=== PATIENT | female | born 1970 | race Caucasian/White ===

== ENCOUNTER → 2016-04-30 | Outpatient (CLI) | payer OTHER ==
[2016-04-30 13:14] LABS: Hemoglobin A1C 4.4 % (4.2-6.1)
== END | disposition home or self-care (01) ==
LOC: LABWHC1 10:37
PROVIDERS: ATTEND Family Medicine
DX: L89.90 Pressure ulcer of unspecified site, unspecified stage (principal)
CPT/HCPCS: 36415; 83036; 84134

== ENCOUNTER 2016-05-17 09:31 | Inpatient (IN) | payer OTHER ==
[2016-05-17 09:48] LABS: Glucose,Whole Blood 106 mg/dL (75-99)
--- NOTE | 2016-05-17 10:16 | ED ---
General Adult HPI - General Chief complaint: Urogenital Stated complaint: Sepsis Time Seen by Provider: 05/17/16 09:33 Source: patient, EMS Mode of arrival: EMS - History of Present Illness Initial comments: This patient is a 46-year-old woman transferred here from the [facility]. The patient when questioned is not sure exactly why she is here. The transfer paperwork lists that the patient has been having some hypotension and also had some slurred speech which seems to been going on for about the past night. The patient denies pain or dyspnea. She does request something to moisten her mouth as it feels quite dry. - Related Data Home Medications Medication Instructions Recorded Confirmed Baclofen [Lioresal] 10 mg PO DAILY PRN 11/17/13 05/17/16 Naproxen 500 mg PO BID 11/17/13 05/17/16 Pravastatin Sodium [Pravachol] 80 mg PO HS 11/17/13 05/17/16 Dimethyl Fumarate [Tecfidera] 240 mg PO BID 09/27/15 05/17/16 Gabapentin 600 mg PO TID@0500,1300,2100 03/04/16 05/17/16 Amino Acids/Protein Hydrolys 30 ml PO BID 04/23/16 05/17/16 [Pro-Stat Supplement] Bisacodyl [Dulcolax] 10 mg RECTAL HS PRN 04/23/16 05/17/16 Furosemide [Lasix] 20 mg PO DAILY@0700 04/23/16 05/17/16 HYDROcodone/APAP 5-325MG [[place] 1 tab PO Q6H PRN 04/23/16 05/17/16 5-325] Menthol [Biofreeze] 1 applic TOPICAL TID 04/23/16 05/17/16 Acetaminophen Tab [Tylenol] 650 mg PO Q6HR PRN 05/17/16 05/17/16 Amoxicillin 500 mg PO TID@0700,1300,1900 05/17/16 05/17/16 Multivitamins, Thera [Multivitamin] 1 tab PO HS 05/17/16 05/17/16 Omeprazole [PriLOSEC] 20 mg PO DAILY 05/17/16 05/17/16 Potassium Chloride 8 meq PO DAILY@0700 05/17/16 05/17/16 Allergies Allergy/AdvReac Type Severity Reaction Status Date / Time cinnamon Allergy Rash/Hives Verified 05/17/16 11:23 Review of Systems ROS Statement: Those systems with pertinent positive or pertinent negative responses have been documented in the HPI. ROS Other: All systems not noted in ROS Statement are negative. Constitutional: Denies: fever Respiratory: Denies: cough, dyspnea Cardiovascular: Denies: chest pain Gastrointestinal: Denies: abdominal pain, vomiting, diarrhea Musculoskeletal: Denies: back pain Neurological: Denies: headache Past Medical History Past Medical History: Blood Disorder, Hyperlipidemia, Musculoskeletal Disorder, Neurologic Disorder Additional Past Medical History / Comment(s): gait dysfunction History of Any Multi-Drug Resistant Organisms: None Reported Past Surgical History: No Surgical Hx Reported Additional Past Surgical History / Comment(s): TOOTH EXTRACTIONS lumbar puncture. Operating room debridemint Past Anesthesia/Blood Transfusion Reactions: No Reported Reaction Additional Past Anesthesia/Blood Transfusion Reaction / Comment(s): NEVER HAD ANY GENERAL AA ONLY LOCAL FOR DENTAL WORK. Past Psychological History: No Psychological Hx Reported Additional Psychological History / Comment(s): PT STATED SHE LIVES WITH HER BOYFRIEND, NO OTHER OUTSIDE SERVICES,USES WALKER WHEN UP HAS BALANCE ISSUES D/T MS AND HX OF FALLS. She does not drive. She gets rides thru her insurance company. Smoking Status: Never smoker Past Alcohol Use History: None Reported Past Drug Use History: None Reported - Past Family History Father History Unknown: Yes Additional Family Medical History / Comment(s): PTS DAD LIVED IN [place]- SHE 'S NOT SURE WHAT HE FROM Mother Family Medical History: Coronary Artery Disease (CAD), Diabetes Mellitus, Hyperlipidemia, Hypertension Additional Family Medical History / Comment(s): CARDIAC STENTS General Exam General appearance: alert, in no apparent distress Head exam: Present: atraumatic, normocephalic Eye exam: Present: normal appearance, PERRL, EOMI. Absent: nystagmus ENT exam: Present: mucous membranes dry Neck exam: Present: normal inspection Respiratory exam: Present: normal lung sounds bilaterally. Absent: respiratory distress, wheezes, rales, rhonchi, stridor Cardiovascular Exam: Present: tachycardia, normal heart sounds. Absent: systolic murmur, diastolic murmur, rubs, gallop GI/Abdominal exam: Present: soft. Absent: distended, tenderness, guarding, rebound, mass Extremities exam: Present: other (Patient has Tarik wraps to the bilateral lower extremities). Absent: pedal edema, calf tenderness Neurological exam: Present: alert Skin exam: Present: warm, dry, intact, normal color. Absent: rash Course Vital Signs 05/17/16 05/17/16 05/17/16 09:33 12:23 13:18 Temperature 98.5 F Pulse Rate 120 H 111 H 113 H Respiratory 22 18 14 Rate Blood Pressure 95/52 94/52 99/58 O2 Sat by Pulse 89 L 97 98 Oximetry EKG Findings - EKG Results: EKG: interpreted by ERMD, sinus rhythm, normal axis (Normal), normal ST/T ( Normal) EKG shows: tachycardia - Blocks, [place], Hypertrophy, ST Abn: Chamber hypertrophy or enlargement: only voltage criteria for left ventricular hypertrophy Medical Decision Making - Lab Data Result diagrams: 05/17/16 10:20 05/17/16 10:20 Lab Results 05/17/16 05/17/16 05/17/16 Range/Units 09:38 10:20 10:20 WBC 13.0 H (3.8-10.6) k/uL RBC 4.07 (3.80-5.40) m/uL Hgb 10.8 L (11.4-16.0) gm/dL Hct 34.3 (34.0-46.0) % MCV 84.3 (80.0-100.0) fL MCH 26.6 (25.0-35.0) pg MCHC 31.6 (31.0-37.0) g/dL RDW 14.5 (11.5-15.5) % Plt Count 341 (150-450) k/uL Neutrophils % 92 % Lymphocytes % 3 % Monocytes % 3 % Eosinophils % 1 % Basophils % 0 % Neutrophils # 12.0 H (1.3-7.7) k/uL Lymphocytes # 0.3 L (1.0-4.8) k/uL Monocytes # 0.4 (0-1.0) k/uL Eosinophils # 0.1 (0-0.7) k/uL Basophils # 0.0 (0-0.2) k/uL PT (9.0-12.0) sec INR (<1.1) APTT (22.0-30.0) sec Sodium (137-145) mmol/L Potassium (3.5-5.1) mmol/L Chloride (98-107) mmol/L Carbon Dioxide (22-30) mmol/L Anion Gap mmol/L BUN (7-17) mg/dL Creatinine (0.52-1.04) mg/dL Est GFR (MDRD) Af Amer (>60 ml/min/1.73 sqM) Est GFR (MDRD) Non-Af (>60 ml/min/1.73 sqM) Glucose (74-99) mg/dL POC Glucose (mg/dL) 106 H (75-99) mg/dL POC Glu Buccaro ID Jensen Reyes Plasma Lactic Acid Armando (0.7-2.0) mmol/L Calcium (8.4-10.2) mg/dL Total Bilirubin (0.2-1.3) mg/dL AST (14-36) U/L ALT (9-52) U/L Alkaline Phosphatase (38-126) U/L Total Creatine Kinase 182 H (30-135) U/L CK-MB (CK-2) 2.2 (0.0-2.4) ng/mL CK-MB (CK-2) Rel Index 1.2 Troponin I 0.026 (0.000-0.034) ng/mL Total Protein (6.3-8.2) g/dL Albumin (3.5-5.0) g/dL Cortisol ug/dL Urine Color Urine Appearance (Clear) Urine pH (5.0-8.0) Ur Specific [place] (1.001-1.035) Urine Protein (Negative) Urine Glucose (UA) (Negative) Urine Ketones (Negative) Urine Blood (Negative) Urine Nitrate (Negative) Urine Bilirubin (Negative) Urine Urobilinogen (<2.0) mg/dL Ur Leukocyte Esterase (Negative) Urine RBC (0-5) /hpf Urine WBC (0-5) /hpf Ur Squamous Epith Cells (0-4) /hpf Urine Bacteria (None) /hpf Urine Mucus (None) /hpf Urine Yeast (Budding) (None) /hpf 05/17/16 05/17/16 05/17/16 Range/Units 10:20 10:20 10:20 WBC (3.8-10.6) k/uL RBC (3.80-5.40) m/uL Hgb (11.4-16.0) gm/dL Hct (34.0-46.0) % MCV (80.0-100.0) fL MCH (25.0-35.0) pg MCHC (31.0-37.0) g/dL RDW (11.5-15.5) % Plt Count (150-450) k/uL Neutrophils % % Lymphocytes % % Monocytes % % Eosinophils % % Basophils % % Neutrophils # (1.3-7.7) k/uL Lymphocytes # (1.0-4.8) k/uL Monocytes # (0-1.0) k/uL Eosinophils # (0-0.7) k/uL Basophils # (0-0.2) k/uL PT 12.0 (9.0-12.0) sec INR 1.2 (<1.1) APTT 29.4 (22.0-30.0) sec Sodium 136 L (137-145) mmol/L Potassium 4.8 (3.5-5.1) mmol/L Chloride 98 (98-107) mmol/L Carbon Dioxide 21 L (22-30) mmol/L Anion Gap 17 mmol/L BUN 69 H (7-17) mg/dL Creatinine 3.20 H (0.52-1.04) mg/dL Est GFR (MDRD) Af Amer 19 (>60 ml/min/1.73 sqM) Est GFR (MDRD) Non-Af 16 (>60 ml/min/1.73 sqM) Glucose 94 (74-99) mg/dL POC Glucose (mg/dL) (75-99) mg/dL POC Glu Buccaro ID Plasma Lactic Acid Armando 1.9 (0.7-2.0) mmol/L Calcium 8.7 (8.4-10.2) mg/dL Total Bilirubin 1.0 (0.2-1.3) mg/dL AST 24 (14-36) U/L ALT 28 (9-52) U/L Alkaline Phosphatase 157 H (38-126) U/L Total Creatine Kinase (30-135) U/L CK-MB (CK-2) (0.0-2.4) ng/mL CK-MB (CK-2) Rel Index Troponin I (0.000-0.034) ng/mL Total Protein 5.8 L (6.3-8.2) g/dL Albumin 2.9 L (3.5-5.0) g/dL Cortisol 54 ug/dL Urine Color Urine Appearance (Clear) Urine pH (5.0-8.0) Ur Specific [place] (1.001-1.035) Urine Protein (Negative) Urine Glucose (UA) (Negative) Urine Ketones (Negative) Urine Blood (Negative) Urine Nitrate (Negative) Urine Bilirubin (Negative) Urine Urobilinogen (<2.0) mg/dL Ur Leukocyte Esterase (Negative) Urine RBC (0-5) /hpf Urine WBC (0-5) /hpf Ur Squamous Epith Cells (0-4) /hpf Urine Bacteria (None) /hpf Urine Mucus (None) /hpf Urine Yeast (Budding) (None) /hpf 05/17/16 Range/Units 12:00 WBC (3.8-10.6) k/uL RBC (3.80-5.40) m/uL Hgb (11.4-16.0) gm/dL Hct (34.0-46.0) % MCV (80.0-100.0) fL MCH (25.0-35.0) pg MCHC (31.0-37.0) g/dL RDW (11.5-15.5) % Plt Count (150-450) k/uL Neutrophils % % Lymphocytes % % Monocytes % % Eosinophils % % Basophils % % Neutrophils # (1.3-7.7) k/uL Lymphocytes # (1.0-4.8) k/uL Monocytes # (0-1.0) k/uL Eosinophils # (0-0.7) k/uL Basophils # (0-0.2) k/uL PT (9.0-12.0) sec INR (<1.1) APTT (22.0-30.0) sec Sodium (137-145) mmol/L Potassium (3.5-5.1) mmol/L Chloride (98-107) mmol/L Carbon Dioxide (22-30) mmol/L Anion Gap mmol/L BUN (7-17) mg/dL Creatinine (0.52-1.04) mg/dL Est GFR (MDRD) Af Amer (>60 ml/min/1.73 sqM) Est GFR (MDRD) Non-Af (>60 ml/min/1.73 sqM) Glucose (74-99) mg/dL POC Glucose (mg/dL) (75-99) mg/dL POC Glu Buccaro ID Plasma Lactic Acid Armando (0.7-2.0) mmol/L Calcium (8.4-10.2) mg/dL Total Bilirubin (0.2-1.3) mg/dL AST (14-36) U/L ALT (9-52) U/L Alkaline Phosphatase (38-126) U/L Total Creatine Kinase (30-135) U/L CK-MB (CK-2) (0.0-2.4) ng/mL CK-MB (CK-2) Rel Index Troponin I (0.000-0.034) ng/mL Total Protein (6.3-8.2) g/dL Albumin (3.5-5.0) g/dL Cortisol ug/dL Urine Color Light Yellow Urine Appearance Cloudy H (Clear) Urine pH 5.0 (5.0-8.0) Ur Specific [place] 1.004 (1.001-1.035) Urine Protein Negative (Negative) Urine Glucose (UA) Negative (Negative) Urine Ketones Negative (Negative) Urine Blood Moderate H (Negative) Urine Nitrate Negative (Negative) Urine Bilirubin Negative (Negative) Urine Urobilinogen <2.0 (<2.0) mg/dL Ur Leukocyte Esterase Large H (Negative) Urine RBC 108 H (0-5) /hpf Urine WBC 46 H (0-5) /hpf Ur Squamous Epith Cells 1 (0-4) /hpf Urine Bacteria Rare H (None) /hpf Urine Mucus Rare H (None) /hpf Urine Yeast (Budding) Few H (None) /hpf Disposition Clinical Impression: Pneumonia, Urinary tract infection, Acute renal failure, Hypotension, Decubitus ulcer Disposition: ADMITTED IP TO THIS HOSP Condition: Serious Referrals: Chace Mojica MD [Primary Care Provider] - 1-2 days
[2016-05-17] MEDS: SODIUM CHLORIDE 0.9% 500 ML IV SCH ×2 (10:30→11:00)
[2016-05-17 10:42] LABS: Basophils % (A) 0 %; CHCM 32.1; Eosinophils # (A) 0.1 k/uL (0-0.7); Eosinophils % (A) 1 %; HCT 34.3 % (34.0-46.0); HDW 2.49; HGB 10.8 gm/dL (11.4-16.0); Luc # (Auto) 0.24; Luc % (Auto) 2; Lymphocytes # (A) 0.3 k/uL (1.0-4.8); Lymphocytes % (A) 3 %; MCH 26.6 pg (25.0-35.0); MCHC 31.6 g/dL (31.0-37.0); MCV 84.3 fL (80.0-100.0); Mean Platelet Volume 7.9; Monocytes # (A) 0.4 k/uL (0-1.0); Monocytes % (A) 3 %; Neutrophils % (A) 92 %; RBC 4.07 m/uL (3.80-5.40); RDW 14.5 % (11.5-15.5); WBC (Perox) 13.93
[2016-05-17 10:44] LABS: INR 1.2 (<1.1); Partial Thromboplastin Time 29.4 sec (22.0-30.0)
[2016-05-17 10:45] LABS: Calcium 8.7 mg/dL (8.4-10.2); Total Protein 5.8 g/dL (6.3-8.2)
[2016-05-17 10:46] LABS: Potassium 4.8 mmol/L (3.5-5.1)
--- NOTE | 2016-05-17 10:52 | XR ---
EXAMINATION TYPE: XR chest 1V portable DATE OF EXAM: 05/17/2016 10:46 AM Comparison: 03/04/2016 Clinical History: 46-year-old female with Fever Findings: Low lung volumes. Heart appears borderline to mildly enlarged. Multifocal patchy airspace opacities. No significant pleural effusion seen on the frontal view. Some more nodular areas of opacity are also noted in the upper lobes. Impression: Multifocal airspace disease. Findings could represent pulmonary edema or multifocal pneumonia. Clinic al correlation recommended. Follow-up after treatment to ensure clearance as there are some more nodu lar areas of density as well.
[2016-05-17 11:10] LABS: Creatine Kinase MB 2.2 ng/mL (0.0-2.4); Troponin I 0.026 ng/mL (0.000-0.034)
[2016-05-17 12:16] LABS: Appearance,Urine Cloudy (Clear); Bacteria,Urine Rare /hpf; Bilirubin,Urine Negative (Negative); Glucose,Urine (UA) Negative (Negative); Ketones,Urine Negative (Negative); Leukocyte Esterase,Urine Large (Negative); Mucus,Urine Rare /hpf; Nitrite,Urine Negative (Negative); Particle Count 8540; Protein,Urine Negative (Negative); RBC,Urine 108 /hpf (0-5); Specific Gravity,Urine 1.004 (1.001-1.035); Squamous Epithelial Cell,Urine 1 /hpf (0-4); UA Billing (MACRO vs. MICRO) MICRO; Urobilinogen,Urine <2.0 mg/dL (<2.0); WBC,Urine 46 /hpf (0-5)
[2016-05-17] MEDS ORDERED: HYDROcodone/APAP 5-325MG 1 EACH TAB PO STA (12:18)
[2016-05-17] MEDS ORDERED: LEVOFLOXACIN 750MG-D5W PMX 750 MG in DEXTROSE/WATER 1 150ML.BAG IVPB STA (13:05)
[2016-05-17] MEDS ORDERED: PIPERACILLIN-TAZOBACTAM 3.375 GM in DEXTROSE/WATER 1 50ML.BAG IVPB STA ×2 (13:20→14:47)
[2016-05-17] MEDS ORDERED: PNEUMONIA PROTOCOL UTILIZED 1 EACH MISC PO PRN (14:22)
[2016-05-17] MEDS ORDERED: BACLOFEN 10 MG TAB PO PRN (14:48)
[2016-05-17] MEDS ORDERED: IV VANCOMYCIN PER PHARMACY 1 EACH MISC MISCELLANE PRN (14:48)
[2016-05-17] MEDS ORDERED: ACETAMINOPHEN TAB 325 MG TAB PO PRN (14:48)
[2016-05-17] MEDS ORDERED: BISACODYL 10 MG SUPP RECTAL PRN (14:48)
[2016-05-17] MEDS: SODIUM CHLORIDE 0.9% 1,000 ML IV SCH ×8 (14:50→23:33)
[2016-05-17] MEDS ORDERED: VANCOMYCIN 1,500 MG in SODIUM CHLORIDE 0.9% 250 ML IVPB ONE (16:00)
--- NOTE | 2016-05-17 16:23 | HP ---
DATE OF ADMISSION: 05/17/2016 Patient is a 46 -year-old female who is a resident of [facility]. Patient has history of multiple sclerosis for which patient has a Chaves catheter chronically which was replaced here. Came in with fevers. Appears to be high-grade in [facility], and patient was being treated for urinary tract infection with levofloxacin. Patient was on metronidazole for her osteomyelitis of the back and patient has a wound VAC to the back. Patient does have sacral decubitus ulcer. Patient denied any cough, runny nose. Patient denied any clear cut dysuria, nausea, vomiting and patient although the urine as mentioned above has a Chaves catheter chronically and patient's urine does look abnormal significantly, with large leukocyte esterase, WBC of 46. One squamous epithelial cell and budding yeast and patient was hypotensive. Patient's creatinine is 3.2, and severely dehydrated. Patient received 1 liter of IV normal saline. We will give her one more liter bolus. Patient will be started on 125 mL of IV fluids. Patient's anion gap is 17. May have lactic acidosis. The patient's lactic acid now is 1.9. Patient's baseline creatinine is around 0.6. REVIEW OF SYSTEMS: GENERAL: As described in HPI. HEENT: No recent visual problems or hearing problems. Denied any sore throat. CARDIOVASCULAR: No chest pain, orthopnea, PND, no palpitations, no syncope. PULMONARY: No shortness of breath, no cough, no hemoptysis. GASTROINTESTINAL: No diarrhea, no nausea, no vomiting, no abdominal pain. Normoactive bowel sounds. NEUROLOGICAL: No headaches, no weakness, no numbness. HEMATOLOGICAL: Denies any bleeding or petechiae. GENITOURINARY: Denies any burning micturition, frequency, or urgency. MUSCULOSKELETAL/RHEUMATOLOGICAL: Denies any joint pain, swelling, or any muscle pain. ENDOCRINE: Denies any polyuria or polydipsia. The rest of the 14 point review of systems is negative. Home medications include: 1. Baclofen. 2. Naproxen. 3. Pravastatin. 4. ( ). 5. Gabapentin. 6. ( ) supplementations. 7. Bisacodyl. 8. Lasix. 9. Hydrocodone acetaminophen. 10. Amoxicillin. 11. Multivitamin. 12. Omeprazole. 13. Potassium chloride. PAST MEDICAL HISTORY: Significant for hyperlipidemia, multiple sclerosis; chronic contractures from multiple sclerosis, gastroesophageal reflux disease. I am not sure why patient is on Lasix at home in the [place]. SOCIAL HISTORY: Denied any smoking, alcohol abuse or any drug abuse. FAMILY HISTORY: Father's medical history is unknown. Mother had coronary disease, diabetes mellitus, hyperlipidemia and hypertension. PHYSICAL EXAMINATION: VITAL SIGNS: Temperature 98.5, pulse of 113, respiratory rate of 14. Blood pressure is 99/58, saturating at 98% on 2 liters O2 by nasal cannula. GENERAL: Patient is a very pleasant female, alert and oriented x3 appears to be tired and does have malaise. Dermatologic: The patient does have intact wound VAC. I did not open the wound inside the back was not seen by me. Patient does have a Chaves catheter in place. HEENT: Pupils are round and equally reacting to light. EOMI. No scleral icterus. No conjunctival pallor. Normocephalic, atraumatic. No pharyngeal erythema. No thyromegaly. CARDIOVASCULAR: S1 and S2 present. Tachycardic. Sinus rhythm. PULMONARY: Chest is clear to auscultation, no wheezing or crackles. ABDOMEN: Soft, nontender, nondistended, normoactive bowel sounds. No palpable organomegaly. MUSCULOSKELETAL: No joint swelling or deformity. EXTREMITIES: No cyanosis, clubbing, or pedal edema. NEUROLOGICAL: No new focal neurological deficits. SKIN: No rashes. CARDIOVASCULAR: S1 and S2 present . Abdomen. LABORATORY DATA: CBC, CMP are abnormal for elevated WBC count of 13,000 and elevated BUN and creatinine of 69 and 3.2. Baseline creatinine is around 0.6, alkaline phosphatase is elevated to 157 and UA as mentioned above. Chest x-ray showed some diffuse multifocal infiltrate with the possibility of multifocal pneumonia. ASSESSMENT AND PLAN: 1. Severe sepsis, most probable source of infection is urinary tract infection which patient does have a chronic Chaves catheter, may be related to Chaves catheter infection. I cannot completely rule out pneumonia or infection from her wound but the possibility of these two is low. Patient will be started on broad-spectrum antibiotics for now with Zosyn and vancomycin. Infectious disease will be consulted. 2. Tachycardia due to severe sepsis. 3. Acute renal failure, possibly multifactorial, number one due to severe sepsis and possibility of acute tubular necrosis and also prerenal azotemia. Prerenal azotemia that may be contributing to her severe renal dysfunction. Patient will be started on 125 mL of normal saline. We will recheck electrolytes tomorrow again and kidney function tomorrow again. 4. Gastroesophageal reflux disease. 5. Multiple sclerosis with chronic debility for which will continue with the present medications. 6. Normocytic anemia, anemia of chronic disease. 7. Mild protein calorie malnutrition. Patient's primary care physician is Dr. Chace Mojica.
[2016-05-17 16:40] LABS: Creatine Kinase MB 2.4 ng/mL (0.0-2.4); Troponin I 0.022 ng/mL (0.000-0.034)
[2016-05-17 17:33] LABS: Prealbumin 4 mg/dL (18-36)
[2016-05-17] MEDS: AMPICILLIN-SULBACTAM 3 GM in SODIUM CHLORIDE 0.9% 100 ML IVPB SCH ×2 (17:55→23:33)
[2016-05-17] MEDS: MENTHOL-CAMPHOR LOTION 222 APPLIC/222 ML BOTTLE TOPICAL SCH ×2 (17:56→20:23)
[2016-05-17 18:28] LABS: C Reactive Protein >852.3 mg/L (<10.0)
[2016-05-17] MEDS: GABAPENTIN 300 MG CAP PO SCH (20:23)
[2016-05-17] MEDS: FAMOTIDINE 20 MG TAB PO SCH (20:23)
[2016-05-17] MEDS: PRAVASTATIN SODIUM 80 MG TAB PO SCH (20:23)
[2016-05-17] MEDS ORDERED: FAMOTIDINE 20 MG TAB PO SCH (21:00)
[2016-05-17] MEDS ORDERED: NON-FORMULARY DRUG (Dimethyl Fumarate [Tecfidera] 240 MG) PO SCH (21:00)
[2016-05-17 23:24] LABS: Creatine Kinase MB 1.8 ng/mL (0.0-2.4); Troponin I 0.021 ng/mL (0.000-0.034)
[2016-05-18 05:53] LABS: CH 26.7; CHCM 30.7; HCT 27.9 % (34.0-46.0); HDW 2.43; Hypochromasia Slight; MCH 27.5 pg (25.0-35.0); MCHC 31.5 g/dL (31.0-37.0); MCV 87.2 fL (80.0-100.0); Mean Platelet Volume 8.7; RDW 14.8 % (11.5-15.5); WBC 8.1 k/uL (3.8-10.6)
[2016-05-18 05:54] LABS: HGB 8.8 gm/dL (11.4-16.0)
[2016-05-18] MEDS: GABAPENTIN 300 MG CAP PO SCH (06:00)
[2016-05-18] MEDS: SODIUM CHLORIDE 0.9% 1,000 ML IV SCH ×3 (06:07→12:29)
[2016-05-18 06:12] LABS: Calcium 7.5 mg/dL (8.4-10.2); Potassium 4.9 mmol/L (3.5-5.1); Total Bilirubin 1.2 mg/dL (0.2-1.3); Total Protein 4.9 g/dL (6.3-8.2)
[2016-05-18] MEDS: MENTHOL-CAMPHOR LOTION 222 APPLIC/222 ML BOTTLE TOPICAL SCH ×3 (07:53→21:23)
[2016-05-18] MEDS: FAMOTIDINE 20 MG TAB PO SCH ×2 (07:53→21:20)
[2016-05-18] MEDS: AMPICILLIN-SULBACTAM 3 GM in SODIUM CHLORIDE 0.9% 100 ML IVPB SCH ×2 (07:56→21:22)
[2016-05-18] MEDS: HYDROcodone/APAP 5-325MG 1 EACH TAB PO PRN (08:00)
--- NOTE | 2016-05-18 09:19 | P.NPCON ---
History of Present Illness - Reason for Consult acute renal failure - History of Present Illness Reason for consultation: Acute kidney injury History of present illness: Patient is a 46-year-old female seen in consultation for acute kidney injury. Her baseline creatinine from February 2016 is 0.6. It was elevated at 3.2 at the time of admission yesterday and is up to 3.3 today. Patient has history of multiple sclerosis and is currently undergoing rehab at [facility]. She presented with fever although she's been afebrile this admission. Denies any vomiting or diarrhea but her appetite has been poor the last few days. She has history of osteomyelitis in the back for which she is maintained on antibiotics as an outpatient. It appears she was on amoxicillin according to her home medications. I also see naproxen listed in her home medications. She is a chronic Chaves catheter in place which she states was changed recently. She is unsure of any family history of renal disease. Currently resting in bed. Her blood pressure was low at the time of admission in the systolic 90s for which she did receive fluid resuscitation. Currently maintained on normal saline running at 125 mL an hour. Blood pressure remains marginal. Vital signs are stable. General: The patient appeared well nourished and normally developed. HEENT: Head exam is unremarkable. Neck is without jugular venous distension. LUNGS: Lungs are clear to auscultation and percussion. Breath sounds decreased. HEART: Rate and Rhythm are regular. First and second heart sounds normal. No murmurs, rubs or gallops. ABDOMEN: Abdominal exam reveals normal bowel sounds. Non-tender and non- distended. No evidence of peritonitis. EXTREMITITES: No clubbing, cyanosis, or edema. Past Medical History Past Medical History: Blood Disorder, Hyperlipidemia, Musculoskeletal Disorder, Neurologic Disorder Additional Past Medical History / Comment(s): gait dysfunction, MS History of Any Multi-Drug Resistant Organisms: None Reported Past Surgical History: No Surgical Hx Reported Additional Past Surgical History / Comment(s): TOOTH EXTRACTIONS lumbar puncture. Operating room debridemint Past Anesthesia/Blood Transfusion Reactions: No Reported Reaction Additional Past Anesthesia/Blood Transfusion Reaction / Comment(s): NEVER HAD ANY GENERAL AA ONLY LOCAL FOR DENTAL WORK. Past Psychological History: No Psychological Hx Reported Additional Psychological History / Comment(s): . Smoking Status: Never smoker Past Alcohol Use History: None Reported Past Drug Use History: None Reported - Past Family History Father History Unknown: Yes Additional Family Medical History / Comment(s): PTS DAD LIVED IN [place]- SHE 'S NOT SURE WHAT HE FROM Mother Family Medical History: Coronary Artery Disease (CAD), Diabetes Mellitus, Hyperlipidemia, Hypertension Additional Family Medical History / Comment(s): CARDIAC STENTS Medications and Allergies Home Medications Medication Instructions Recorded Confirmed Type Baclofen [Lioresal] 10 mg PO DAILY PRN 11/17/13 05/17/16 History Naproxen 500 mg PO BID 11/17/13 05/17/16 History Pravastatin Sodium [Pravachol] 80 mg PO HS 11/17/13 05/17/16 History Dimethyl Fumarate [Tecfidera] 240 mg PO BID 09/27/15 05/17/16 History Gabapentin 600 mg PO TID@0500,1300,2100 03/04/16 05/17/16 History Amino Acids/Protein Hydrolys 30 ml PO BID 04/23/16 05/17/16 History [Pro-Stat Supplement] Bisacodyl [Dulcolax] 10 mg RECTAL HS PRN 04/23/16 05/17/16 History Furosemide [Lasix] 20 mg PO DAILY@0700 04/23/16 05/17/16 History HYDROcodone/APAP 5-325MG [[place] 1 tab PO Q6H PRN 04/23/16 05/17/16 History 5-325] Menthol [Biofreeze] 1 applic TOPICAL TID 04/23/16 05/17/16 History Acetaminophen Tab [Tylenol] 650 mg PO Q6HR PRN 05/17/16 05/17/16 History Amoxicillin 500 mg PO TID@0700,1300,1900 05/17/16 05/17/16 History Multivitamins, Thera [Multivitamin] 1 tab PO HS 05/17/16 05/17/16 History Omeprazole [PriLOSEC] 20 mg PO DAILY 05/17/16 05/17/16 History Potassium Chloride 8 meq PO DAILY@0700 05/17/16 05/17/16 History Allergies Allergy/AdvReac Type Severity Reaction Status Date / Time cinnamon Allergy Rash/Hives Verified 05/17/16 11:23 Physical Exam Vitals: Vital Signs Temp Pulse Pulse Resp BP BP Pulse Ox 05/18/16 08:01 97 F L 103 H 18 97/58 94 L 05/18/16 04:00 97.2 F L 108 H 17 103/51 92 L 05/18/16 00:00 97.3 F L 111 H 17 95/51 95 05/17/16 20:00 96.9 F L 119 H 18 96/57 95 05/17/16 16:29 97.7 F 115 H 17 112/51 95 05/17/16 16:20 97.1 F L 116 H 18 112/51 95 05/17/16 16:05 98.1 F 112 H 18 95/54 96 05/17/16 14:44 97.7 F 118 H 18 114/69 95 Intake and Output 05/17/16 05/18/16 05/18/16 22:59 06:59 14:59 Intake Total 3400 1000 0 Output Total 50 Balance 3400 950 0 Intake: IV 1000 1000 Sodium Chloride 0.9% 1, 1000 1000 000 ml @ 125 mls/hr IV . Q8H [facility] Rx#:[id number] Amount of Fluid Infused ( 2000 ml) Intake, IV Titration 400 Amount Ampicillin-Sulbactam 3 gm 100 In Sodium Chloride 0.9% 100 ml @ 100 mls/hr IVPB Q8HR [facility] Rx#:[id number] Piperacillin-Tazobactam 3 50 .375 gm In Dextrose/Water 1 50ml.bag @ 12.5 mls/hr IVPB ONCE STA Rx#: [id number] Vancomycin 1,500 mg In 250 Sodium Chloride 0.9% 250 ml @ 125 mls/hr IVPB ONCE ONE Rx#:[id number] Oral 0 Output: Urine 50 Other: Voiding Method Indwelling Catheter Indwelling Catheter Indwelling Catheter Weight 93.44 kg 98 kg Results - Lab Results Most recent lab results Calcium 7.5 mg/dL (8.4-10.2) L 05/18/16 05:21 05/18/16 05:21 05/18/16 05:21 Assessment and Plan Plan: Assessment: #1. Acute kidney injury secondary to septic ATN. Rule out ALLERGIC interstitial nephritis. Creatinine up at 3.3 today. Baseline creatinine 0.6. #2. Severe sepsis secondary to pneumonia. #3. Osteomyelitis of the back with a wound VAC in place. #4. Urinary tract infection being treated with levofloxacin as an outpatient. #5. Hyponatremia. Euvolemic in nature. #6. Anion gap metabolic acidosis secondary to acute kidney injury. #7. Anemia. Rule out iron deficiency. Plan: Maintain IV hydration with normal saline to be run at 125 mL an hour. Encourage oral intake. I will put her on 1200 mL free water restriction. Avoid nephrotoxic agents and hypotensive episodes. NSAIDs and Lasix held at this time. Check iron studies. Check urine eosinophils. Check renal ultrasound. Add oral sodium bicarbonate 650 mg 3 times daily. Follow-up cultures. Repeat electrolytes in the morning. Thank you for the consultation. I will continue to follow the patient with you during her hospital stay.
--- NOTE | 2016-05-18 10:19 | P.CONS ---
History of Present Illness - Reason for Consult Consult date: 05/18/16 Stage IV decubitus ulcer, sepsis, UTI - History of Present Illness This is a 46-year-old female well known to ID service as [facility] currently under the care of Dr. Villalpando and was last seen there on May 07. Patient has history of extended hospitalization in February which time she was discharged on March 20 to [facility]. During that hospitalization, he was seen in consultation by Dr. De Oliveira for her multiple sclerosis. Dr. Rivero also saw her from infectious disease regarding stage IV sacral decubitus ulcer with osteomyelitis. On March 17, she underwent wide debridement of the sacral wound with excision of necrotic coccygeal bone by Dr. Brothers. She was discharged on Rocephin 2 g every 24 hours for 42 days as well as Flagyl 500 mg 3 times daily for 42 days. Patient did complete her course of antibiotics and had a follow-up appointment with Dr. Yodit chacon last week. The patient states that she developed a fever with body aches and yesterday had a cough. She states she has not been eating but drinking some water. According to the [facility] staff on May 14 she had a urinalysis completed which showed WBCs of 10-20 and RBCs 40-60. Blood was 3+. The culture came back 50-100,000 colonies of Enterococcus faecalis (VRE ) and strep viridans and she was placed on oral ampicillin on May 16. It appears that she was on Levaquin prior to this. EMS notes state that she had no urine output in her Chaves for 12 hours with a blood pressure of 78/58, pulse ox was 93 on room air and heart rate was 120. Patient was brought into [facility]. White count was 13 now at 8.1. BUN 69 creatinine 3.2. With normal creatinine of 0.6. Urinalysis was cloudy, blood moderate, leukoesterase large, RBCs 108, WBC 46 and bacteria rare. Urine culture is in progress. Blood cultures status received. Sputum culture is uncollected. Chest x-ray shows multifocal airspace disease. Represents pulmonary edema or multifocal pneumonia.. Pre-albumin 4, cortisone level LUIGI, CRP 852.3 and last one done at the [facility] was 38.48 with a sed rate of 63. Patient does have a chronic Chaves catheter which she states was exchanged last week. For wound care she has a wound VAC in place with local wound care done on Tuesdays and Saturdays. Patient received 1 dose of Zosyn, one dose of vancomycin and 1 dose of Levaquin. She is currently on Unasyn. Patient is followed by Dr. Aldridge for acute kidney injury second to septic ATN and metabolic acidosis with hyponatremia. Review of Systems All systems: negative Constitutional: Reports anorexia, Reports fatigue, Reports fever, Reports poor appetite, Reports sweats, Reports weakness, Denies chills Eyes: denies blurred vision, denies pain Ears, nose, mouth and throat: Denies headache, Denies sore throat Cardiovascular: Denies chest pain, Denies shortness of breath Respiratory: Reports cough, Denies cough with sputum, Denies dyspnea, Denies excessive sputum, Denies hemoptysis Gastrointestinal: Denies abdominal pain, Denies diarrhea, Denies nausea, Denies vomiting Genitourinary: Denies dysuria, Denies hematuria Musculoskeletal: Denies myalgias Integumentary: Reports wounds, Denies pruritus, Denies rash Neurological: Denies numbness, Denies weakness Psychiatric: Denies anxiety, Denies depression Endocrine: Denies fatigue, Denies weight change Past Medical History Past Medical History: Blood Disorder, Hyperlipidemia, Musculoskeletal Disorder, Neurologic Disorder Additional Past Medical History / Comment(s): gait dysfunction, MS, stage IV sacral osteomyelitis History of Any Multi-Drug Resistant Organisms: None Reported Past Surgical History: No Surgical Hx Reported Additional Past Surgical History / Comment(s): TOOTH EXTRACTIONS lumbar puncture. Operating room debridemint of stage IV decubitus ulcer sacrum Past Anesthesia/Blood Transfusion Reactions: No Reported Reaction Additional Past Anesthesia/Blood Transfusion Reaction / Comm: NEVER HAD ANY GENERAL AA ONLY LOCAL FOR DENTAL WORK. Past Psychological History: No Psychological Hx Reported Additional Psychological History / Comment(s): . Smoking Status: Never smoker Past Alcohol Use History: None Reported Additional Past Alcohol Use History / Comment(s): Patient is a lifelong nonsmoker. She denies any alcohol abuse. Prior to being at [facility], she was living with her boyfriend. Past Drug Use History: None Reported - Past Family History Father History Unknown: Yes Additional Family Medical History / Comment(s): PTS DAD LIVED IN [place]- SHE 'S NOT SURE WHAT HE FROM Mother Family Medical History: Coronary Artery Disease (CAD), Diabetes Mellitus, Hyperlipidemia, Hypertension Additional Family Medical History / Comment(s): CARDIAC STENTS Medications and Allergies Home Medications Medication Instructions Recorded Confirmed Type Baclofen [Lioresal] 10 mg PO DAILY PRN 11/17/13 05/17/16 History Naproxen 500 mg PO BID 11/17/13 05/17/16 History Pravastatin Sodium [Pravachol] 80 mg PO HS 11/17/13 05/17/16 History Dimethyl Fumarate [Tecfidera] 240 mg PO BID 09/27/15 05/17/16 History Gabapentin 600 mg PO TID@0500,1300,2100 03/04/16 05/17/16 History Amino Acids/Protein Hydrolys 30 ml PO BID 04/23/16 05/17/16 History [Pro-Stat Supplement] Bisacodyl [Dulcolax] 10 mg RECTAL HS PRN 04/23/16 05/17/16 History Furosemide [Lasix] 20 mg PO DAILY@0700 04/23/16 05/17/16 History HYDROcodone/APAP 5-325MG [[place] 1 tab PO Q6H PRN 04/23/16 05/17/16 History 5-325] Menthol [Biofreeze] 1 applic TOPICAL TID 04/23/16 05/17/16 History Acetaminophen Tab [Tylenol] 650 mg PO Q6HR PRN 05/17/16 05/17/16 History Amoxicillin 500 mg PO TID@0700,1300,1900 05/17/16 05/17/16 History Multivitamins, Thera [Multivitamin] 1 tab PO HS 05/17/16 05/17/16 History Omeprazole [PriLOSEC] 20 mg PO DAILY 05/17/16 05/17/16 History Potassium Chloride 8 meq PO DAILY@0700 05/17/16 05/17/16 History Allergies Allergy/AdvReac Type Severity Reaction Status Date / Time cinnamon Allergy Rash/Hives Verified 05/17/16 11:23 Physical Exam Vitals: Vital Signs Temp Pulse Pulse Resp BP BP Pulse Ox 05/18/16 08:01 97 F L 103 H 18 97/58 94 L 05/18/16 04:00 97.2 F L 108 H 17 103/51 92 L 05/18/16 00:00 97.3 F L 111 H 17 95/51 95 05/17/16 20:00 96.9 F L 119 H 18 96/57 95 05/17/16 16:29 97.7 F 115 H 17 112/51 95 05/17/16 16:20 97.1 F L 116 H 18 112/51 95 05/17/16 16:05 98.1 F 112 H 18 95/54 96 05/17/16 14:44 97.7 F 118 H 18 114/69 95 Intake and Output 05/17/16 05/18/16 05/18/16 22:59 06:59 14:59 Intake Total 3400 1000 0 Output Total 50 Balance 3400 950 0 Intake: IV 1000 1000 Sodium Chloride 0.9% 1, 1000 1000 000 ml @ 125 mls/hr IV . Q8H [facility] Rx#:[id number] Amount of Fluid Infused ( 2000 ml) Intake, IV Titration 400 Amount Ampicillin-Sulbactam 3 gm 100 In Sodium Chloride 0.9% 100 ml @ 100 mls/hr IVPB Q8HR [facility] Rx#:[id number] Piperacillin-Tazobactam 3 50 .375 gm In Dextrose/Water 1 50ml.bag @ 12.5 mls/hr IVPB ONCE STA Rx#: [id number] Vancomycin 1,500 mg In 250 Sodium Chloride 0.9% 250 ml @ 125 mls/hr IVPB ONCE ONE Rx#:[id number] Oral 0 Output: Urine 50 Other: Voiding Method Indwelling Catheter Indwelling Catheter Indwelling Catheter Weight 93.44 kg 98 kg Gen: This is a 46-year-old female. She is sitting up in bed and appears to be in no acute distress. HEENT: Head is atraumatic, normocephalic. Pupils equal, round. Sclerae is anicteric. Conjunctiva pink. Mucous membranes of the mouth are very dry. NECK: Supple. No JVD. No lymphadenopathy. No thyromegaly. LUNGS: Clear to auscultation. No wheezes or rhonchi. No intercostal retractions. HEART: Regular rate and rhythm. No murmur. ABDOMEN: Soft. Bowel sounds are present. No masses. No tenderness. Chaves catheter in place. EXTREMITIES: Trace pedal edema. No calf tenderness. Dorsalis pedis is weak bilaterally. Extreme weakness to the bilateral lower extremities NEUROLOGICAL: Patient is awake, alert and oriented x3. Cranial nerves 2 through 12 are grossly intact. Results Results: Laboratory Results WBC 8.1 k/uL (3.8-10.6) 05/18/16 05:21 RBC 3.20 m/uL (3.80-5.40) L 05/18/16 05:21 Hgb 8.8 gm/dL (11.4-16.0) L D 05/18/16 05:21 Hct 27.9 % (34.0-46.0) L 05/18/16 05:21 MCV 87.2 fL (80.0-100.0) 05/18/16 05:21 MCH 27.5 pg (25.0-35.0) 05/18/16 05:21 MCHC 31.5 g/dL (31.0-37.0) 05/18/16 05:21 RDW 14.8 % (11.5-15.5) 05/18/16 05:21 Plt Count 188 k/uL (150-450) 05/18/16 05:21 Neutrophils % 92 % 05/17/16 10:20 Lymphocytes % 3 % 05/17/16 10:20 Monocytes % 3 % 05/17/16 10:20 Eosinophils % 1 % 05/17/16 10:20 Basophils % 0 % 05/17/16 10:20 Neutrophils # 12.0 k/uL (1.3-7.7) H 05/17/16 10:20 Lymphocytes # 0.3 k/uL (1.0-4.8) L 05/17/16 10:20 Monocytes # 0.4 k/uL (0-1.0) 05/17/16 10:20 Eosinophils # 0.1 k/uL (0-0.7) 05/17/16 10:20 Basophils # 0.0 k/uL (0-0.2) 05/17/16 10:20 Hypochromasia Slight 05/18/16 05:21 ESR 102 mm/hr (0-20) H 05/17/16 10:20 PT 12.0 sec (9.0-12.0) 05/17/16 10:20 INR 1.2 (<1.1) 05/17/16 10:20 APTT 29.4 sec (22.0-30.0) 05/17/16 10:20 Sodium 131 mmol/L (137-145) L 05/18/16 05:21 Potassium 4.9 mmol/L (3.5-5.1) 05/18/16 05:21 Chloride 100 mmol/L (98-107) 05/18/16 05:21 Carbon Dioxide 16 mmol/L (22-30) L 05/18/16 05:21 Anion Gap 15 mmol/L 05/18/16 05:21 BUN 77 mg/dL (7-17) H 05/18/16 05:21 Creatinine 3.30 mg/dL (0.52-1.04) H 05/18/16 05:21 Est GFR (MDRD) Af Amer 18 (>60 ml/min/1.73 sqM) 05/18/16 05:21 Est GFR (MDRD) Non-Af 15 (>60 ml/min/1.73 sqM) 05/18/16 05:21 Glucose 79 mg/dL (74-99) 05/18/16 05:21 POC Glucose (mg/dL) 106 mg/dL (75-99) H 05/17/16 09:38 POC Glu [employer] ID Jensen Reyes 05/17/16 09:38 Plasma Lactic Acid Armando 0.7 mmol/L (0.7-2.0) 05/18/16 05:21 Calcium 7.5 mg/dL (8.4-10.2) L 05/18/16 05:21 Total Bilirubin 1.2 mg/dL (0.2-1.3) 05/18/16 05:21 AST 30 U/L (14-36) 05/18/16 05:21 ALT 34 U/L (9-52) 05/18/16 05:21 Alkaline Phosphatase 149 U/L (38-126) H 05/18/16 05:21 Total Creatine Kinase 183 U/L (30-135) H 05/17/16 22:00 CK-MB (CK-2) 1.8 ng/mL (0.0-2.4) 05/17/16 22:00 CK-MB (CK-2) Rel Index 1.0 05/17/16 22:00 Troponin I 0.021 ng/mL (0.000-0.034) 05/17/16 22:00 C-Reactive Protein >852.3 mg/L (<10.0) H 05/17/16 10:20 Total Protein 4.9 g/dL (6.3-8.2) L 05/18/16 05:21 Albumin 2.2 g/dL (3.5-5.0) L 05/18/16 05:21 Prealbumin 4 mg/dL (18-36) L 05/17/16 10:20 Cortisol 54 ug/dL 05/17/16 10:20 Urine Color Light Yellow 05/17/16 12:00 Urine Appearance Cloudy (Clear) H 05/17/16 12:00 Urine pH 5.0 (5.0-8.0) 05/17/16 12:00 Ur Specific [place] 1.004 (1.001-1.035) 05/17/16 12:00 Urine Protein Negative (Negative) 05/17/16 12:00 Urine Glucose (UA) Negative (Negative) 05/17/16 12:00 Urine Ketones Negative (Negative) 05/17/16 12:00 Urine Blood Moderate (Negative) H 05/17/16 12:00 Urine Nitrate Negative (Negative) 05/17/16 12:00 Urine Bilirubin Negative (Negative) 05/17/16 12:00 Urine Urobilinogen <2.0 mg/dL (<2.0) 05/17/16 12:00 Ur Leukocyte Esterase Large (Negative) H 05/17/16 12:00 Urine RBC 108 /hpf (0-5) H 05/17/16 12:00 Urine WBC 46 /hpf (0-5) H 05/17/16 12:00 Ur Squamous Epith Cells 1 /hpf (0-4) 05/17/16 12:00 Urine Bacteria Rare /hpf (None) H 05/17/16 12:00 Urine Mucus Rare /hpf (None) H 05/17/16 12:00 Urine Yeast (Budding) Few /hpf (None) H 05/17/16 12:00 CBC & Chem 7: 05/18/16 05:21 05/19/16 05:41 Labs: Abnormal Lab Results - Last 24 Hours (Table) 05/17/16 05/17/16 05/18/16 Range/Units 15:52 22:00 05:21 RBC 3.20 L (3.80-5.40) m/uL Hgb 8.8 L D (11.4-16.0) gm/dL Hct 27.9 L (34.0-46.0) % Sodium (137-145) mmol/L Carbon Dioxide (22-30) mmol/L BUN (7-17) mg/dL Creatinine (0.52-1.04) mg/dL Calcium (8.4-10.2) mg/dL Alkaline Phosphatase (38-126) U/L Total Creatine Kinase 212 H 183 H (30-135) U/L Total Protein (6.3-8.2) g/dL Albumin (3.5-5.0) g/dL 05/18/16 Range/Units 05:21 RBC (3.80-5.40) m/uL Hgb (11.4-16.0) gm/dL Hct (34.0-46.0) % Sodium 131 L (137-145) mmol/L Carbon Dioxide 16 L (22-30) mmol/L BUN 77 H (7-17) mg/dL Creatinine 3.30 H (0.52-1.04) mg/dL Calcium 7.5 L (8.4-10.2) mg/dL Alkaline Phosphatase 149 H (38-126) U/L Total Creatine Kinase (30-135) U/L Total Protein 4.9 L (6.3-8.2) g/dL Albumin 2.2 L (3.5-5.0) g/dL Assessment and Plan Plan: This is a 46-year-old female with a significant past history of multiple sclerosis with functional paraplegia, sepsis due to pneumonia, catheter associated urinary tract infection, stage IV decubitus ulcer with recent treatment for acute osteomyelitis of the sacrum. Patient also presented with acute kidney injury secondary to ATN. Patient is currently on Unasyn and vancomycin. Urine culture and blood culture are in process. Sputum cultures uncollected. Wound culture will be requested. Continue supportive care. Further recommendations as patient progresses. The above dictated assessment and findings were discussed with Dr. hSi. The impression and plan of care have been directed as dictated. Lazara Brito nurse practitioner acting as scribe for Dr. Shi. Time with Patient: Greater than 30
[2016-05-18] MEDS: SODIUM BICARBONATE TAB 650 MG TAB PO SCH ×3 (10:21→21:23)
[2016-05-18] MEDS ORDERED: IV VANCOMYCIN PER PHARMACY 1 EACH MISC MISCELLANE PRN (11:43)
[2016-05-18] MEDS: GABAPENTIN 100 MG CAP PO SCH ×2 (12:29→21:22)
[2016-05-18 14:38] LABS: % Iron Saturation 10.3 % (20-50)
--- NOTE | 2016-05-18 17:20 | PN ---
Patient is a 46-year-old with multiple sclerosis. She was admitted for severe sepsis. Patient is mostly bedbound. Patient has a Chaves catheter in place. Patient most probably has urinary tract infection. I cannot completely rule out sepsis secondary to bilateral diffuse pneumonia. Patient was evaluated by Infectious Disease and they started her on ampicillin sulbactam. Patient is looking better compared to yesterday. Patient remains tachycardic, but tachycardia improved a little bit. Kidney function remains fairly at the same level as yesterday. Sodium is 131 compared to 130 and Nephrology is following the patient. Patient is not on any nephrotoxic agents. Patient continues to be on 125 mL of normal saline at this time. Patient's bicarbonate has gone down a little bit. REVIEW OF SYSTEMS: CARDIOVASCULAR: No chest pain, no orthopnea, no PND, no palpitations. PULMONARY: Denied any shortness of breath. No cough or hemoptysis. GASTROINTESTINAL: No diarrhea, nausea or vomiting. No abdominal pain. Normoactive bowel sounds. NEUROLOGIC: No headaches, no weakness, no numbness. Patient is feeling much better today. Urine output is good today. Medications were reviewed. PHYSICAL EXAMINATION: VITAL SIGNS: Temperature 97.0 pulse of 103, respiratory rate of 18, blood pressure 97/58. Saturating at 94% on room air. GENERAL: Patient is a very pleasant female, alert and oriented x3. Lying on the bed because of her chronic weakness. No new weakness was appreciated. Chaves catheter in place. HEENT: Pupils are round and equally reacting to light. EOMI. No scleral icterus. No conjunctival pallor. Normocephalic, atraumatic. No pharyngeal erythema. No thyromegaly. CARDIOVASCULAR: S1, S2 present. Patient is tachycardic. PULMONARY: Chest is clear to auscultation, no wheezing or crackles. ABDOMEN: Soft, nontender, nondistended, normoactive bowel sounds. No palpable organomegaly. MUSCULOSKELETAL: No joint swelling or deformity. EXTREMITIES: No cyanosis, clubbing, or pedal edema. NEUROLOGICAL: Gross neurological examination did not reveal any focal deficits. SKIN: No rashes. LABORATORY DATA: CBC, CMP are significant for improved leukocytosis. Hemoglobin came down to 8.8 due to hemodilutory effect. Sodium came down to 131, bicarbonate of 21. Part of lower bicarbonate is probably because of uremia plus increased chloride. Anion gap is 15; came down, actually. Patient did not have any significant lactic acidosis yesterday. ASSESSMENT AND PLAN: 1. Severe sepsis, most probably secondary to urinary tract infection. Diffuse bilateral pneumonia cannot be excluded. Patient is on Unasyn at this point of time. Patient has Gram-positive bacteria in the blood, and the results will be conveyed to Infectious Disease. Further management of the bacteremia as per ID. Repeat blood cultures today and tomorrow will be obtained. 2. Tachycardia which is improving, secondary to severe sepsis. 3. Acute renal failure, multifactorial, most probably acute tubular necrosis along with prerenal azotemia. Continue with IV fluids at present rate. Expected to improve. Patient's urine output is not that bad now. 4. Gastroesophageal reflux disease. 5. Multiple sclerosis. 6. Normocytic anemia, probably anemia of chronic disease, mild protein-calorie malnutrition. 7. Multiple sclerosis, not in acute exacerbation at this point of time.
--- NOTE | 2016-05-18 18:28 | P.CON ---
Consult Note - . Consult date: 05/18/16 Assessment/Plan:: This is a 46-year-old female well known to ID service as she [facility] currently under the care of Dr. Villalpando and was last seen there on May 07. Patient has history of extended hospitalization in February which time she was discharged on March 20 to [facility]. During that hospitalization, he was seen in consultation by Dr. De Oliveira for her multiple sclerosis. Dr. Rivero also saw her from infectious disease regarding stage IV sacral decubitus ulcer with osteomyelitis. On March 17, she underwent wide debridement of the sacral wound with excision of necrotic coccygeal bone by Dr. Brothers. She was discharged on Rocephin 2 g every 24 hours for 42 days as well as Flagyl 500 mg 3 times daily for 42 days. Patient did complete her course of antibiotics and had a follow-up appointment with Dr. Yodit chacon last week. The patient states that she developed a fever with body aches and yesterday had a cough. She states she has not been eating but drinking some water. According to the alf staff on May 14 she had a urinalysis completed which showed WBCs of 10-20 and RBCs 40-60. Blood was 3+. The culture came back 50-100,000 colonies of Enterococcus faecalis (VRE ) and strep viridans and she was placed on oral ampicillin on May 16. It appears that she was on Levaquin prior to this. EMS notes state that she had no urine output in her Chaves for 12 hours with a blood pressure of 78/58, pulse ox was 93 on room air and heart rate was 120. Patient was brought into [facility]. White count was 13 now at 8.1. BUN 69 creatinine 3.2. With normal creatinine of 0.6. Urinalysis was cloudy, blood moderate, leukoesterase large, RBCs 108, WBC 46 and bacteria rare. Urine culture is in progress. Blood cultures status received. Sputum culture is uncollected. Chest x-ray shows multifocal airspace disease. Represents pulmonary edema or multifocal pneumonia.. Pre-albumin 4, cortisone level 54, CRP 852.3 and last one done at the alf was 38.48 with a sed rate of 63. Patient does have a chronic Chaves catheter which she states was exchanged last week. For wound care she has had a wound VAC in place with local wound care done on Tuesdays and Saturdays. Patient received 1 dose of Zosyn, one dose of vancomycin and 1 dose of Levaquin. She is currently on Unasyn. Patient is followed by Dr. Aldridge for acute kidney injury second to septic ATN and metabolic acidosis with hyponatremia. Please see the consult note is dictated by nurse practitioner Mrs. Lazara Brito Exam reveals evidence of the extensive pressor ulceration to the coccyx. Please see the nursing photography for the measurements in pictorial evidence. Local wound care with the Aquacel silver rope packed at this point in time Ensure that her protein status is supplemented Antibiotic therapy above with ampicillin sulbactam and vancomycin pending the blood cultures that are positive. She is on a mattress overlay and is being turned on schedule. Likely will need further courses of intravenous antibiotic therapy, the 2016 x-ray of the sacrum and coccyx does show the ongoing osteomyelitis to that site. I agree with the evaluation, assessment and plan as dictated by nurse practitioner Mrs. Lazara Brito.
[2016-05-18] MEDS: PRAVASTATIN SODIUM 80 MG TAB PO SCH (21:22)
[2016-05-19] MEDS: GABAPENTIN 100 MG CAP PO SCH ×3 (05:00→19:39)
[2016-05-19] MEDS: SODIUM CHLORIDE 0.9% 1,000 ML IV SCH ×2 (05:00→19:34)
[2016-05-19 06:43] LABS: Calcium 7.6 mg/dL (8.4-10.2); Potassium 5.1 mmol/L (3.5-5.1); Total Bilirubin 1.3 mg/dL (0.2-1.3); Total Protein 4.8 g/dL (6.3-8.2)
[2016-05-19] MEDS ORDERED: VANCOMYCIN 1,500 MG in SODIUM CHLORIDE 0.9% 250 ML IVPB ONE (09:00)
[2016-05-19] MEDS: AMPICILLIN-SULBACTAM 3 GM in SODIUM CHLORIDE 0.9% 100 ML IVPB SCH (09:45)
--- NOTE | 2016-05-19 09:49 | P.PN ---
Subjective Patient is seen in follow-up for acute kidney injury. Her baseline creatinine is near 0.6 and renal function continues to worsen with creatinine elevated at 3.95 today. She is oliguric with urine output of only 50 mL overnight. She is also acidotic with bicarb level of 13. Patient presented with hypotension and was subsequently diagnosed with pneumonia. She also has sacral osteomyelitis for which she is currently maintained on antibiotics. Her blood cultures are now also positive for MRSA. Patient denies any chest pain or shortness of breath. Her appetite is fair. Denies any vomiting or diarrhea. Vital signs are stable. General: The patient appeared well nourished and normally developed. HEENT: Head exam is unremarkable. Neck is without jugular venous distension. LUNGS: Lungs are clear to auscultation and percussion. Breath sounds decreased. HEART: Rate and Rhythm are regular. First and second heart sounds normal. No murmurs, rubs or gallops. ABDOMEN: Abdominal exam reveals normal bowel sounds. Non-tender and non- distended. No evidence of peritonitis. EXTREMITITES: No clubbing, cyanosis, or edema. Objective - Vital Signs Vital signs: Vital Signs Temp 97.1 F L 05/19/16 04:00 Pulse 108 H 05/19/16 04:00 Resp 18 05/19/16 04:00 BP 103/54 05/19/16 04:00 Pulse Ox 93 L 05/19/16 04:00 Intake & Output 05/18/16 05/19/16 05/19/16 18:59 06:59 18:59 Intake Total 420 1979 240 Output Total 50 Balance 370 1979 240 Weight 98 kg 98 kg Intake: IV 220 1280 Sodium Chloride 0.9% 1, 220 1280 000 ml @ 80 mls/hr IV . [id number] [facility] Rx#:[id number] Intake, IV Titration 100 Amount Ampicillin-Sulbactam 3 gm 100 In Sodium Chloride 0.9% 100 ml @ 100 mls/hr IVPB Q12HR [facility] Rx#:[id number] Oral 200 600 240 Output: Urine 50 Other: Voiding Method Indwelling Catheter Indwelling Catheter - Labs CBC & Chem 7: 05/18/16 05:21 05/19/16 05:41 Labs: Abnormal Lab Results - Last 24 Hours (Table) 05/18/16 05/19/16 Range/Units 05:21 05:41 Sodium 132 L (137-145) mmol/L Carbon Dioxide 13 L (22-30) mmol/L BUN 88 H* (7-17) mg/dL Creatinine 3.95 H (0.52-1.04) mg/dL Glucose 70 L (74-99) mg/dL Calcium 7.6 L (8.4-10.2) mg/dL Iron 16 L (37-170) ug/dL TIBC 156 L (265-497) ug/dL % Saturation 10.3 L (20-50) % Ferritin 652 H (6-137) ng/mL Alkaline Phosphatase 299 H (38-126) U/L Total Protein 4.8 L (6.3-8.2) g/dL Albumin 2.2 L (3.5-5.0) g/dL Microbiology - Last 24 Hours (Table) 05/18/16 15:07 Gram Stain - Preliminary Buttock Wound Culture - Preliminary 05/18/16 15:07 Anaerobic Culture - Preliminary Buttock Assessment and Plan Plan: Assessment: #1. Acute kidney injury secondary to septic ATN. . urine eosinophils negative Creatinine up at 3.95 today. Baseline creatinine 0.6. #2. Severe sepsis secondary to pneumonia. #3. Osteomyelitis of the sacrum with a wound VAC in place. #4. Urinary tract infection being treated with levofloxacin as an outpatient. urine culture now positive for Ronda albicans. #5. Hyponatremia. Euvolemic in nature. improved. #6. Anion gap metabolic acidosis secondary to acute kidney injury. #7. Anemia. Iron deficiency present. Plan: Maintain IV hydration with normal saline to be run at 80 mL an hour. Encourage oral intake. Maintain 1200 mL free water restriction. Avoid nephrotoxic agents and hypotensive episodes. NSAIDs and Lasix held at this time. Hold off on IV iron in view of bacteremia. Check renal ultrasound. Continue oral sodium bicarbonate 650 mg 3 times daily. Follow-up cultures. infectious disease following. I discussed with her the need for renal replacement therapy for better metabolic control as well as oliguria. She is in agreement to proceed. Will consult vascular surgery for Bhavin catheter placement and schedule for first treatment of hemodialysis today.
[2016-05-19] MEDS: SODIUM BICARBONATE TAB 650 MG TAB PO SCH ×3 (09:52→19:40)
[2016-05-19] MEDS: FAMOTIDINE 20 MG TAB PO SCH ×2 (09:52→19:39)
[2016-05-19] MEDS: MENTHOL-CAMPHOR LOTION 222 APPLIC/222 ML BOTTLE TOPICAL SCH ×2 (09:52→17:31)
[2016-05-19] MEDS: HYDROcodone/APAP 5-325MG 1 EACH TAB PO PRN ×2 (09:56→19:40)
[2016-05-19] MEDS: DAPTOmycin 500 MG in SODIUM CHLORIDE 0.9% 50 ML IV SCH (12:19)
[2016-05-19] MEDS ORDERED: fentaNYL (PF) 50 MCG/ML 2 ML AMP IV ONE (12:50)
[2016-05-19] MEDS ORDERED: LIDOCAINE 2% INJ 20 MG/ML SQ ONE (12:53)
--- NOTE | 2016-05-19 15:49 | US ---
EXAMINATION TYPE: US kidneys/renal and bladder DATE OF EXAM: 05/19/2016 3:23 PM COMPARISON: NONE CLINICAL HISTORY: Renal insufficiency EXAM MEASUREMENTS: Right Kidney: 14.1 x 5.7 x 5.1 cm cm Left Kidney: 14.8 x 6.5 x 5.2 cm cm FINDINGS: There is no evidence for hydronephrosis at this point in time. No nephrolithiasis is seen. No oliverio s are identified. The urinary bladder is nondiagnostic and limited secondary to Chaves catheter place ment. IMPRESSION: No acute process.
[2016-05-19] MEDS: PIPERACILLIN-TAZOBACTAM 3.375 GM in DEXTROSE/WATER 1 50ML.BAG IVPB SCH (19:40)
[2016-05-19] MEDS: PRAVASTATIN SODIUM 80 MG TAB PO SCH (19:40)
--- NOTE | 2016-05-19 23:25 | PN ---
DATE OF SERVICE: 05/19/2016 REASON FOR FOLLOWUP: 1. MRSA bacteremia. 2. Sacral osteomyelitis. 3. Catheter-associated UTI. INTERVAL HISTORY: The patient is a 46-year-old female well known to my service from recent admission to [facility] when the patient was treated for a non-healing sacral wound with a component of sacral osteomyelitis. At that time the cultures grew Klebsiella pneumoniae alpha hemolytic strep and anaerobic Gram-negative, and the patient was treated with a 6-week course of ceftriaxone 2 grams daily along with Flagyl. Unfortunately the patient did not follow up as she was supposed to and presented to the office a week after the antibiotics were discontinued, and the PICC line was still in. PICC line was discontinued in the office. Otherwise, continued local wound care. The patient now has been brought to the ER at [facility] on 05/17/2016 with the chief complaints of mental status changes. Apparently the patient was having some hypertension and some slurred speech while in [facility]. No high-grade fever has been recorded during this admission. Patient did have blood cultures obtained which are now showing possible MRSA. Cultures were obtained from her sacral wound in addition to the UA. Patient has been treated with vancomycin and Unasyn. However, she was noted to have worsening of her kidney function with a decrease in her output. Nephrology has seen the patient and is recommending a dialysis temporarily at this point. At the time of my evaluation this morning the patient is afebrile. The patient denies having any headache. The patient denies having any chest pain or shortness of breath. She has some mild cough though, but not bringing up any sputum. No abdominal pain. She did have a Chaves catheter not sure when the last time the Chaves was changed. REVIEW OF SYSTEMS: Positive for weakness and cough. The rest of the positives were mentioned in the HPI. Rest of the systems negative. Past medical and surgical history reviewed. No change in medication. On examination, blood pressure is 104/54 with a pulse of 111. Temperature is 98.2. She is 96% on room air. General description is a middle-aged female lying in bed in no distress. HEENT EXAMINATION: Pallor. No scleral icterus. Oral mucous membrane dry. NECK: Trachea is central. No thyromegaly. LUNGS: Unlabored breathing. Clear to auscultation. No wheeze or crackles. HEART: S1, S2. Regular rate and rhythm. ABDOMEN: Soft. No tenderness. No guarding or rigidity. EXTREMITIES: No edema of the feet. EXAMINATION OF THE SACRAL WOUND: The bone could be felt. She did have some component of slough tissue and also swelling of the wound . GENITOURINARY: The patient did have a Chaves catheter with significantly concentrated urine. LABS: BUN of 88 with a creatinine of 3.95. Hemoglobin is 8.8, white count 8.1. UA was positive. Vancomycin random was 15.6. Blood culture now with presumptive MRSA. DIAGNOSTIC IMPRESSION AND PLAN: Patient admitted to the hospital with hypotension, weakness in a patient now with evidence of acute renal failure in addition to the MRSA bacteremia with the same organism being grown from the sacral wound, likely the source of her bacteremia in a patient who did have history of sacral osteomyelitis. Now this infection indicative of a secondary infection, as she did not grow the same pathogen as the last time. Also with a component of catheter-associated urinary tract infection. PLAN: 1. Will go ahead and discontinue the vancomycin, as risk of nephrotoxicity remains high with her kidney function. I will discontinue the Unasyn as well. 2. Which change her Chaves catheter and obtain a urine culture from the new Chaves. 3. We did try to apply wound V.A.C.; however, that was unsuccessful because of the wound with slough tissue. Hence the wound V.A.C. has been discontinued and we will apply Santyl to the wound. We will also discuss with the primary team to see if Dr. Brothers can be consulted for further surgical debridement of this wound. 4. Daptomycin 6 mg/kg q.48 hours and Zosyn provide antibiotic coverage while waiting for the culture to finalize. 5. Blood cultures x1 will be repeated to make sure there is no evidence of any persistent bacteremia. Thank you for this consultation. Will continue to follow this patient along with you. ELIZABETH
[2016-05-19] MEDS ORDERED: HEPARIN SODIUM,PORCINE 5,000 UNIT/ML 1 ML VIAL ONE (23:50)
[2016-05-20] MEDS: COLLAGENASE 250 UNIT/GM OINTMENT 30 GM TUBE TOPICAL SCH ×2 (01:00→21:42)
[2016-05-20] MEDS: MENTHOL-CAMPHOR LOTION 222 APPLIC/222 ML BOTTLE TOPICAL SCH ×4 (01:02→21:43)
[2016-05-20] MEDS: GABAPENTIN 100 MG CAP PO SCH ×3 (05:23→21:42)
[2016-05-20] MEDS: SODIUM CHLORIDE 0.9% 1,000 ML IV SCH ×2 (05:24→15:24)
[2016-05-20 07:19] LABS: Calcium 7.7 mg/dL (8.4-10.2); Potassium 4.4 mmol/L (3.5-5.1); Total Bilirubin 1.2 mg/dL (0.2-1.3); Total Protein 4.8 g/dL (6.3-8.2)
--- NOTE | 2016-05-20 08:53 | IR ---
EXAMINATION TYPE: IR cvc insert >=5 years DATE OF EXAM: 05/19/2016 1:34 PM COMPARISON: NONE HISTORY: Catheter placement IMPRESSION: Fluoroscopy was applied to the referring clinician. See dictated report from vascular lopez rgrodrigo.
[2016-05-20] MEDS: SODIUM BICARBONATE TAB 650 MG TAB PO SCH ×3 (08:59→21:42)
[2016-05-20] MEDS: FAMOTIDINE 20 MG TAB PO SCH ×2 (09:00→21:42)
[2016-05-20] MEDS: PIPERACILLIN-TAZOBACTAM 3.375 GM in DEXTROSE/WATER 1 50ML.BAG IVPB SCH ×2 (09:00→21:42)
[2016-05-20] MEDS: HYDROcodone/APAP 5-325MG 1 EACH TAB PO PRN ×3 (09:00→22:03)
[2016-05-20 09:25] LABS: Appearance,Urine Turbid (Clear); Bacteria,Urine Occasional /hpf; Bilirubin,Urine Negative (Negative); Glucose,Urine (UA) Negative (Negative); Ketones,Urine Trace (Negative); Leukocyte Esterase,Urine Large (Negative); Nitrite,Urine Negative (Negative); PH, Urine 5.5 (5.0-8.0); Particle Count 44017; Protein,Urine 2+ (Negative); RBC,Urine 124 /hpf (0-5); Specific Gravity,Urine 1.015 (1.001-1.035); Squamous Epithelial Cell,Urine 4 /hpf (0-4); UA Billing (MACRO vs. MICRO) MICRO; Urobilinogen,Urine <2.0 mg/dL (<2.0); WBC,Urine >182 /hpf (0-5)
[2016-05-20] MEDS ORDERED: HEPARIN SODIUM,PORCINE 5,000 UNIT/ML 1 ML VIAL ONE (12:00)
--- NOTE | 2016-05-20 16:23 | P.PN ---
Subjective Date of service 05/19/2016. Progress note being dictated for Dr. Waters. Interval history: This a 46-year-old female admitted with sepsis, MRSA bacteremia, UTI, pneumonia, acute renal failure secondary to septic ATN and multiple other medical issues in a patient with MS. Blood cultures now with presumptive MRSA. IV Antibiotics adjusted as per Infectious disease ,discussing potential wound VAC. Minimal concentrated urine output. Renal ultrasound reporting no hydronephrosis, no nephrolithiasis, no masses. Bicarb 13. BUN 88, Creatinine 3.95. Patient awaiting dialysis catheter placement and initiation of dialysis today. Chaves catheter changed. Denies chest pain, palpitations or increasing shortness of breath. Objective - Vital Signs Vital signs: Vital Signs Temp 98.1 F 05/19/16 08:00 Pulse 111 H 05/19/16 12:00 Resp 18 05/19/16 12:00 BP 106/68 05/19/16 12:00 Pulse Ox 92 L 05/19/16 12:00 Intake & Output 05/18/16 05/19/16 05/19/16 18:59 06:59 18:59 Intake Total 420 1979 1155 Output Total 50 Balance 370 1979 1155 Weight 98 kg 98 kg Intake: IV 220 1280 Sodium Chloride 0.9% 1, 220 1280 000 ml @ 80 mls/hr IV . [id number] YANIRA Rx#:[id number] Intake, IV Titration 100 915 Amount Ampicillin-Sulbactam 3 gm 100 100 In Sodium Chloride 0.9% 100 ml @ 100 mls/hr IVPB Q12HR YANIRA Rx#:[id number] DAPTOmycin 500 mg In 50 Sodium Chloride 0.9% 50 ml @ 100 mls/hr IV Q48H YANIRA Rx#:[id number] Sodium Chloride 0.9% 1, 640 000 ml @ 80 mls/hr IV . [id number] YANIRA Rx#:[id number] Vancomycin 1,500 mg In 125 Sodium Chloride 0.9% 250 ml @ 125 mls/hr IVPB ONCE ONE Rx#:[id number] Oral 200 600 240 Output: Urine 50 Other: Voiding Method Indwelling Catheter Indwelling Catheter Indwelling Catheter - Exam PHYSICAL EXAM: VITAL SIGNS: As above GENERAL: [Sitting up in bed, tired appearing] HEENT: [Pupils equal conjunctiva normal.] NECK: [Supple, no JVD] RESPIRATORY EFFORT:[Mildly increased] LUNGS: [Diminished, no wheezing, crackles or rhonchi] CARDIOVASCULAR[regular S1 and S2, no murmurs rubs or gallops, no edema] GI: [Abdomen soft, nontender, positive bowel sounds.] PSYCH: [Alert and oriented -3, mood and affect normal.] SKIN: Sacral dressing clean dry and intact NEURO: [No focal deficits] Microbiology 05/18/16 15:07 Buttock Gram Stain - Preliminary 05/18/16 15:07 Buttock Wound Culture - Preliminary Methicillin resist S. aureus 05/18/16 11:33 Blood Blood Culture Gram Stain - Preliminary 05/18/16 11:33 Blood Blood Culture - Preliminary Presumptive MRSA 05/19/16 05:41 Blood Blood Culture - Preliminary No Growth after 24 hours 05/17/16 10:20 Blood Blood Culture Gram Stain - Final 05/17/16 10:20 Blood Blood Culture - Final Methicillin resist S. aureus 05/18/16 11:33 Blood Blood Culture - Preliminary 05/17/16 12:00 Urine,Catheterized Urine Culture - Final Ronda albicans 05/18/16 15:07 Buttock Anaerobic Culture - Preliminary 05/17/16 10:20 Blood Blood Culture - Preliminary - Labs CBC & Chem 7: 05/18/16 05:21 05/20/16 05:59 Labs: Abnormal Lab Results - Last 24 Hours (Table) 05/19/16 Range/Units 05:41 Sodium 132 L (137-145) mmol/L Carbon Dioxide 13 L (22-30) mmol/L BUN 88 H* (7-17) mg/dL Creatinine 3.95 H (0.52-1.04) mg/dL Glucose 70 L (74-99) mg/dL Calcium 7.6 L (8.4-10.2) mg/dL Alkaline Phosphatase 299 H (38-126) U/L Total Protein 4.8 L (6.3-8.2) g/dL Albumin 2.2 L (3.5-5.0) g/dL Microbiology - Last 24 Hours (Table) 05/18/16 11:33 Blood Culture - Preliminary Blood No Growth after 24 hours 05/18/16 15:07 Gram Stain - Preliminary Buttock Wound Culture - Preliminary Presumptive MRSA 05/18/16 15:07 Anaerobic Culture - Preliminary Buttock Assessment and Plan Plan: 1. [Severe sepsis,secondary to MRSA bacteremia, diffuse bilateral pneumonia, acute UTI with Ronda albicans]. 2. [Acute renal failure multi factorial, including septic ATN, prerenal azotemia ]. 3. [Sacral osteomyelitis]. 4. [Hyponatremia, euvolemic]. 5. [Iron deficient anemia, of chronic disease]. 6. [Metabolic acidosis secondary to acute renal failure]. 7. Tachycardia secondary to severe sepsis 8. Gastroesophageal reflux disease 9. Multiple sclerosis, no acute exacerbation at this time 10. Mild protein calorie malnutrition Plan continue on current medication regime , sodium bicarb , protein supplements , monitoring and symptomatic treatment. Urine culture from new Chaves and repeat blood cultures ordered. Continue following cultures closely with Antibiotics as per ID . Maintain IV fluid hydration, free water restriction. Diaylsis catheter placement and initiation of hemodialysis pending. Prognosis guarded given multiple complex medical issues. Further recommendations to follow. The impression and plan of care has been dictated as directed. : I performed a H&P examination of this patient and discussed the same with the dictator. I agree with the dictator's note. Any additional findings/opinions/ etc. will be noted.
--- NOTE | 2016-05-20 16:32 | P.PN ---
Subjective Date of service 05/20/2016. Progress note being dictated for Dr. Waters. Interval history: This a 46-year-old female admitted with sepsis, MRSA bacteremia, UTI, pneumonia, acute renal failure secondary to septic ATN and multiple other medical issues in a patient with MS. [place] and and daptomycin as per Infectious disease. Temporary dialysis catheter placed yesterday, unable to tolerate fluids being pulled off, became hypotensive. Receiving dialysis today just ultrafiltration only. Bicarb 17. BUN 86, Creatinine 3.72. Denies chest pain, palpitations or increasing shortness of breath. Objective - Vital Signs Vital signs: Vital Signs Temp 97.6 F 05/20/16 15:34 Pulse 100 05/20/16 15:34 Resp 20 05/20/16 15:34 BP 97/44 05/20/16 12:00 Pulse Ox 98 05/20/16 15:34 Intake & Output 05/19/16 05/20/16 05/20/16 18:59 06:59 18:59 Intake Total 1155 1330 Output Total 0 20 Balance 1155 1330 -20 Weight 101 kg Intake: IV 1280 Sodium Chloride 0.9% 1, 1280 000 ml @ 80 mls/hr IV . [id number] YANIRA Rx#:[id number] Intake, IV Titration 915 50 Amount Ampicillin-Sulbactam 3 gm 100 In Sodium Chloride 0.9% 100 ml @ 100 mls/hr IVPB Q12HR YANIRA Rx#:[id number] DAPTOmycin 500 mg In 50 Sodium Chloride 0.9% 50 ml @ 100 mls/hr IV Q48H YANIRA Rx#:[id number] Piperacillin-Tazobactam 3 50 .375 gm In Dextrose/Water 1 50ml.bag @ 12.5 mls/hr IVPB Q12HR YANIRA Rx#: [id number] Sodium Chloride 0.9% 1, 640 000 ml @ 80 mls/hr IV . [id number] YANIRA Rx#:[id number] Vancomycin 1,500 mg In 125 Sodium Chloride 0.9% 250 ml @ 125 mls/hr IVPB ONCE ONE Rx#:[id number] Oral 240 Output: Urine 0 20 Uretheral (Chaves) 20 Other: Voiding Method Indwelling Catheter Indwelling Catheter Indwelling Catheter # Voids 0 - Exam PHYSICAL EXAM: VITAL SIGNS: As above GENERAL: [Sitting up in bed, tired appearing] HEENT: [Pupils equal conjunctiva normal.] NECK: [Supple, no JVD] RESPIRATORY EFFORT:[Mildly increased] LUNGS: [Diminished, no wheezing, crackles or rhonchi] CARDIOVASCULAR[regular S1 and S2, no murmurs rubs or gallops, no edema] GI: [Abdomen soft, nontender, positive bowel sounds.] PSYCH: [Alert and oriented -3, mood and affect normal.] SKIN: Sacral dressing clean dry and intact NEURO: [No focal deficits] Microbiology 05/18/16 15:07 Buttock Gram Stain - Preliminary 05/18/16 15:07 Buttock Wound Culture - Preliminary Methicillin resist S. aureus 05/18/16 11:33 Blood Blood Culture Gram Stain - Preliminary 05/18/16 11:33 Blood Blood Culture - Preliminary Presumptive MRSA 05/19/16 05:41 Blood Blood Culture - Preliminary No Growth after 24 hours 05/17/16 10:20 Blood Blood Culture Gram Stain - Final 05/17/16 10:20 Blood Blood Culture - Final Methicillin resist S. aureus 05/18/16 11:33 Blood Blood Culture - Preliminary 05/17/16 12:00 Urine,Catheterized Urine Culture - Final Ronad albicans 05/18/16 15:07 Buttock Anaerobic Culture - Preliminary 05/17/16 10:20 Blood Blood Culture - Preliminary - Labs CBC & Chem 7: 05/18/16 05:21 05/20/16 05:59 Labs: Abnormal Lab Results - Last 24 Hours (Table) 05/20/16 05/20/16 Range/Units 05:59 09:00 Sodium 135 L (137-145) mmol/L Carbon Dioxide 17 L (22-30) mmol/L BUN 86 H* (7-17) mg/dL Creatinine 3.72 H (0.52-1.04) mg/dL Calcium 7.7 L (8.4-10.2) mg/dL Alkaline Phosphatase 392 H (38-126) U/L Total Protein 4.8 L (6.3-8.2) g/dL Albumin 2.1 L (3.5-5.0) g/dL Urine Appearance Turbid H (Clear) Urine Protein 2+ H (Negative) Urine Ketones Trace H (Negative) Urine Blood Large H (Negative) Ur Leukocyte Esterase Large H (Negative) Urine RBC 124 H (0-5) /hpf Urine WBC >182 H (0-5) /hpf Urine WBC Clumps Many H (None) /hpf Urine Bacteria Occasional H (None) /hpf Urine Yeast (Budding) Moderate H (None) /hpf Microbiology - Last 24 Hours (Table) 05/18/16 15:07 Gram Stain - Preliminary Buttock Wound Culture - Preliminary Methicillin resist S. aureus 05/18/16 11:33 Blood Culture Gram Stain - Preliminary Blood Blood Culture - Preliminary Presumptive MRSA 05/19/16 05:41 Blood Culture - Preliminary Blood No Growth after 24 hours 05/18/16 11:33 Blood Culture - Preliminary Blood Assessment and Plan Plan: 1. [Severe sepsis,secondary to MRSA bacteremia, diffuse bilateral pneumonia, acute UTI with Ronda albicans]. Repeat cultures pending. 2. [Acute renal failure multi factorial, including septic ATN, prerenal azotemia ]. Temporary dialysis catheter placed with initiation of hemodialysis. 3. [Sacral osteomyelitis]. 4. [Hyponatremia, euvolemic]. 5. [Iron deficient anemia, of chronic disease]. 6. [Metabolic acidosis secondary to acute renal failure]. 7. Tachycardia secondary to severe sepsis, improving 8. Gastroesophageal reflux disease 9. Multiple sclerosis, no acute exacerbation at this time 10. Mild protein calorie malnutrition Plan continue on current medication regime , sodium bicarb , protein supplements , monitoring and symptomatic treatment. Follow cultures closely with Antibiotics as per ID. Maintain IV fluid hydration, free water restriction. Hemodialysis/ultrafiltration as per nephrology. Follow-up chest x-ray ordered. Prognosis guarded given multiple complex medical issues. Further recommendations to follow. The impression and plan of care has been dictated as directed. : I performed a H&P examination of this patient and discussed the same with the dictator. I agree with the dictator's note. Any additional findings/opinions/ etc. will be noted.
--- NOTE | 2016-05-20 19:35 | PN ---
Patient is for followup for acute kidney injury. Started on dialysis yesterday. Patient is scheduled for her second treatment today. She has an indwelling Chaves catheter with no significant urine output. 24-hour urine reported to be 50 mL. On examination, patient is comfortable. Blood pressure 93/56, heart rate 95 per minute. She is afebrile. EXAMINATION OF THE HEART: S1 and S2. EXAMINATION OF THE LUNGS: Bilateral breath sounds are heard. Decreased breath sounds in bases. ABDOMEN: Soft, nontender. Examination of lower extremities shows no significant edema. [employer] exam shows patient is moving all 4 extremities. Labs show sodium 135, potassium 4.4, serum creatinine 3.72. Hemoglobin 8.8 g/dL. UA shows trace ketones, large blood, WBCs more than 182. ASSESSMENT: 1. Acute kidney injury, acute tubular necrosis, currently oliguric, status post hemodialysis yesterday. Patient is being dialyzed again today. She continues to have no urine output. We will arrange for her next treatment to be day after tomorrow, which would be May 3. 2. Methicillin-resistant Staphylococcus aureus bacteremia. Source is the wound and sacral osteomyelitis. 3. Diffuse bilateral pneumonia. 4. Ronda urinary tract infection. PLAN: Hemodialysis today. Next treatment will be on Wednesday. Continue to avoid nephrotoxic agents and watch for possible recovery of kidney function. I will discontinue the sodium bicarb in the next few days, as she is now on dialysis.
--- NOTE | 2016-05-20 20:59 | XR ---
EXAMINATION TYPE: XR chest 1V portable DATE OF EXAM: 05/20/2016 7:02 PM COMPARISON: May 17, 2016 HISTORY: Fever TECHNIQUE: Single frontal view of the chest is obtained. FINDINGS: The previously seen pattern of multifocal ill-defined added opacities throughout the lung p arenchyma is similar. If anything, slightly improved overall lung inflation when compared to the prio r study. The mediastinum is midline. No pneumothorax. No other abnormal gas collection is evident. IMPRESSION: MILD INTERVAL IMPROVEMENT IN THE OVERALL LUNG INFLATION PATTERN, BUT PROMINENT BILATERAL ABNORMALITIES PERSIST.
[2016-05-20] MEDS: PRAVASTATIN SODIUM 80 MG TAB PO SCH (21:42)
[2016-05-21] MEDS: GABAPENTIN 100 MG CAP PO SCH ×3 (06:22→21:37)
[2016-05-21] MEDS: SODIUM CHLORIDE 0.9% 1,000 ML IV SCH (06:22)
[2016-05-21] MEDS: MENTHOL-CAMPHOR LOTION 222 APPLIC/222 ML BOTTLE TOPICAL SCH ×3 (07:49→21:40)
[2016-05-21] MEDS: PIPERACILLIN-TAZOBACTAM 3.375 GM in DEXTROSE/WATER 1 50ML.BAG IVPB SCH (07:50)
[2016-05-21] MEDS: SODIUM BICARBONATE TAB 650 MG TAB PO SCH ×3 (07:50→21:37)
[2016-05-21] MEDS: FAMOTIDINE 20 MG TAB PO SCH ×2 (07:50→21:37)
[2016-05-21] MEDS: HYDROcodone/APAP 5-325MG 1 EACH TAB PO PRN ×2 (08:04→13:51)
--- NOTE | 2016-05-21 08:21 | PN ---
DATE OF SERVICE: 05/20/2016 Reason for followup is: 1. MRSA bacteremia secondary to sacral osteomyelitis. 2. Catheter associated UTI. INTERVAL HISTORY: The patient is afebrile. She is hemodynamically stable. Currently, she is getting dialysis. It was attempted last night but had to be stopped because of hypertension. Patient denies significant chest pain, no wheezing, no cough. No abdominal pain or any diarrhea. On examination, blood pressure is 97/44 with a pulse of 96, temperature 97. She is 98% on room air. General description is a middle-age female, lying in bed in no distress. RESPIRATORY SYSTEM: Unlabored breathing. Clear to auscultation anteriorly. HEART: S1, S2, regular rate and rhythm. ABDOMEN: Soft, no tenderness. LABS: Hemoglobin 8.1 with a BUN of 86, creatinine of 3.72. Blood culture with MRSA. Sacral culture positive for MRSA as well. DIAGNOSTIC IMPRESSION AND PLAN: Patient with methicillin-resistant Staphylococcus aureus bacteremia secondary to sacral osteomyelitis. This is a different pathogen that what she had initially, more likely representing a secondary infection as she may have acquired during her current course. Patient is currently on daptomycin because of high risk of further nephrotoxicity. We are waiting for that to finalize. In the meantime, continue the patient on the piperacillin/tazobactam, local wound care with Santyl, urine is showing yeast with a question of possible colonization . Will follow up on the repeat culture. may give her short course of Diflucan. Overall prognosis remains to be guarded. Continue supportive care. MTDD
--- NOTE | 2016-05-21 10:07 | PN ---
Patient is seen for followup for acute kidney injury. She is currently hemodialysis dependent. She remains with no urine output. Patient was dialyzed yesterday. She tolerated her treatment well. She will be dialyzed again tomorrow. On examination, blood pressure is 100/58, heart rate 90 per minute. She is afebrile. EXAMINATION OF THE HEART: S1 and S2. EXAMINATION OF LUNGS: Bilateral breath sounds are heard, decreased breath sounds at the bases. ABDOMEN: Soft, nontender. Examination of lower extremities shows edema 1+ bilaterally. Labs show sodium 135, potassium 4.4, BUN 86, serum creatinine 3.72. Hemoglobin 8.8 on 05/18. ASSESSMENT: 1. Acute kidney injury, acute tubular necrosis, currently oliguric with no significant urine output and remains dialysis dependent. The patient will be dialyzed again tomorrow. 2. Urinary tract infection, which urine culture grew Ronda. 3. Sepsis with bacteremia with methicillin-resistant Staphylococcus aureus and wound culture also growing methicillin-resistant Staphylococcus aureus. 4. Sacral osteomyelitis. 5. Bilateral pneumonia, maintained on antibiotics. PLAN: Hemodialysis tomorrow. Patient will need to be set up as outpatient for acute kidney injury, which is hemodialysis dependent as she continues to have no significant urine output.
[2016-05-21 11:08] LABS: Hepatitis B Surface Ag Index 0.08
[2016-05-21 11:14] LABS: Hepatitis B Core IgM Index 0.08
--- NOTE | 2016-05-21 11:20 | CONS ---
DATE OF CONSULTATION: This is a 46-year-old female. I was consulted for placement of urgent dialysis catheter. Patient has a history of multiple sclerosis. Patient is resident of [facility] [place]. She came with UTI and acute chronic renal failure. I was consulted for placement of dialysis catheter Medical history significant for hyperlipidemia, multiple sclerosis, history of gastroesophageal reflux. PERSONAL HISTORY: There is no smoking history. On examination, temperature is 98.5, pulse 113, respirations 14, blood pressure 99/58. Patient has history of wound on her back and patient has ( ) therapy. Neck is supple. CHEST: A few crackles at the lung bases. ABDOMEN: Soft, nontender. Her labs findings, her white cell count is 13,000 had BUN 69, creatinine 3.2. IMPRESSION: Sepsis with chronic renal failure. PLAN: Placement of a dialysis catheter. Risks and complications discussed.
[2016-05-21 11:26] LABS: Hepatitis C Virus IgG Index 0.02
[2016-05-21 11:31] LABS: Hepatitis C Virus IgG Ab Negative (Negative)
[2016-05-21] MEDS: DAPTOmycin 500 MG in SODIUM CHLORIDE 0.9% 50 ML IV SCH (12:20)
--- NOTE | 2016-05-21 12:54 | P.PN ---
Subjective Date of service 05/21/2016. Progress note being dictated for Dr. Waters. Interval history: This a 46-year-old female admitted with sepsis, MRSA bacteremia, UTI, pneumonia, acute renal failure secondary to septic ATN and multiple other medical issues in a patient with MS. Maintained on Zosyn and and daptomycin as per Infectious disease. Received dialysis yesterday, ultrafiltration only. Tolerated well. Denies chest pain, palpitations or increasing shortness of breath. Objective - Vital Signs Vital signs: Vital Signs Temp 97 F L 05/21/16 07:47 Pulse 87 05/21/16 11:26 Resp 17 05/21/16 11:26 BP 100/61 05/21/16 11:26 Pulse Ox 96 05/21/16 11:26 Intake & Output 05/20/16 05/21/16 05/21/16 18:59 06:59 18:59 Intake Total 390 250 Output Total 20 10 Balance -20 380 250 Weight 101.5 kg 101.5 kg Intake: IV 240 Sodium Chloride 0.9% 1, 240 000 ml @ 80 mls/hr IV . [id number] YANIRA Rx#:[id number] Intake, IV Titration 50 Amount Piperacillin-Tazobactam 3 50 .375 gm In Dextrose/Water 1 50ml.bag @ 12.5 mls/hr IVPB Q12HR YANIRA Rx#: [id number] Oral 150 200 Output: Urine 20 10 Uretheral (Chaves) 20 Other: Voiding Method Indwelling Catheter Indwelling Catheter Indwelling Catheter # Voids 0 0 # Bowel Movements 1 - Exam PHYSICAL EXAM: VITAL SIGNS: As above GENERAL: [Sitting up in bed, no acute distress] HEENT: [Pupils equal conjunctiva normal.] NECK: [Supple, no JVD] RESPIRATORY EFFORT:[Mildly increased] LUNGS: [Diminished, no wheezing, crackles or rhonchi] CARDIOVASCULAR[regular S1 and S2, no murmurs rubs or gallops, positive edema] GI: [Abdomen soft, nontender, positive bowel sounds.] PSYCH: [Alert and oriented -3, mood and affect normal.] SKIN: Sacral dressing clean dry and intact NEURO: [No focal deficits] Microbiology 05/19/16 22:02 Blood Blood Culture Gram Stain - Preliminary 05/19/16 22:02 Blood Blood Culture - Preliminary 05/18/16 11:33 Blood Blood Culture Gram Stain - Preliminary 05/18/16 11:33 Blood Blood Culture - Preliminary Methicillin resist S. aureus Anaerobic Gm Negative Bacilli 05/19/16 05:41 Blood Blood Culture - Preliminary No Growth after 48 hours 05/19/16 15:00 Urine,Catheterized Urine Culture - Preliminary 05/18/16 15:07 Buttock Gram Stain - Preliminary 05/18/16 15:07 Buttock Wound Culture - Preliminary Methicillin resist S. aureus 05/17/16 10:20 Blood Blood Culture Gram Stain - Final 05/17/16 10:20 Blood Blood Culture - Final Methicillin resist S. aureus 05/18/16 11:33 Blood Blood Culture - Preliminary 05/17/16 12:00 Urine,Catheterized Urine Culture - Final Ronda albicans 05/18/16 15:07 Buttock Anaerobic Culture - Preliminary 05/17/16 10:20 Blood Blood Culture - Preliminary - Labs CBC & Chem 7: 05/18/16 05:21 05/20/16 05:59 Labs: Microbiology - Last 24 Hours (Table) 05/19/16 22:02 Blood Culture Gram Stain - Preliminary Blood 05/19/16 22:02 Blood Culture - Preliminary Blood 05/18/16 11:33 Blood Culture Gram Stain - Preliminary Blood Blood Culture - Preliminary Methicillin resist S. aureus Anaerobic Gm Negative Bacilli 05/19/16 05:41 Blood Culture - Preliminary Blood No Growth after 48 hours 05/19/16 15:00 Urine Culture - Preliminary Urine,Catheterized 05/18/16 15:07 Gram Stain - Preliminary Buttock Wound Culture - Preliminary Methicillin resist S. aureus Assessment and Plan Plan: 1. [Severe sepsis,secondary to MRSA bacteremia, diffuse bilateral pneumonia, acute UTI with Ronda albicans]. Repeat cultures pending. 2. [Acute renal failure multi factorial, including septic ATN, prerenal azotemia ]. Temporary dialysis catheter placed with initiation of hemodialysis. 3. [Sacral osteomyelitis]. 4. [Hyponatremia, euvolemic]. 5. [Iron deficient anemia, of chronic disease]. 6. [Metabolic acidosis secondary to acute renal failure]. 7. Tachycardia secondary to severe sepsis, improving 8. Gastroesophageal reflux disease 9. Multiple sclerosis, no acute exacerbation at this time 10. Mild protein calorie malnutrition Plan continue on current medication regime , sodium bicarb , protein supplements , monitoring and symptomatic treatment. Follow cultures closely with Antibiotics as per ID. Hemodialysis tomorrow. Prognosis guarded given multiple complex medical issues. Further recommendations to follow. The impression and plan of care has been dictated as directed. : I performed a H&P examination of this patient and discussed the same with the dictator. I agree with the dictator's note. Any additional findings/opinions/ etc. will be noted.
--- NOTE | 2016-05-21 20:15 | PCN ---
DATE OF PROCEDURE: PREOPERATIVE DIAGNOSIS: Acute chronic renal failure. PROCEDURE: Placement of a dialysis catheter, right femoral approach. Patient was brought to the laborer poultry hatchery. Right groin was prepped and drapes applied in the usual sterile manner. 1% lidocaine was infiltrated from the groin area. Micropuncture introduced in the right common femoral vein. Micropuncture guidewire was passed. After that, we passed a regular guidewire and dilator advanced on the top of the guidewire. Then we passed a 20 cm dialysis catheter to check fluoroscopy. It was in good position. Flushed with heparin saline and hep-locked. Incision and catheter was secured with 3-0 nylon. Dressing applied. The patient tolerated the procedure well.
[2016-05-21] MEDS: PRAVASTATIN SODIUM 80 MG TAB PO SCH (21:37)
[2016-05-21] MEDS: COLLAGENASE 250 UNIT/GM OINTMENT 30 GM TUBE TOPICAL SCH (21:40)
[2016-05-22] MEDS: SODIUM CHLORIDE 0.9% 1,000 ML IV SCH ×3 (00:24→21:42)
[2016-05-22] MEDS: GABAPENTIN 100 MG CAP PO SCH ×3 (04:15→21:52)
--- NOTE | 2016-05-22 07:30 | PN ---
DATE OF SERVICE: 05/21/2016 REASON FOR FOLLOWUP: 1. MRSA bacteremia with sacral osteomyelitis. 2. Catheter-associated UTI. INTERVAL HISTORY: The patient is afebrile. She has been breathing comfortably. Denies any worsening pain in the sacral area. No nausea. No vomiting. On examination, blood pressure is 101/65 with a pulse of 88, temperature 97.3. She is 98% on room air. General description is a middle-age female lying in bed in no distress. RESPIRATORY SYSTEM: Unlabored breathing. Clear to auscultation anteriorly. HEART: S1, S2. Regular rate and rhythm. ABDOMEN: Soft. No tenderness. Sacral wound still has some slough tissue, but surrounding erythema has improved. LABS: BUN of 86 with a creatinine 3.72. DIAGNOSTIC IMPRESSION AND PLAN: 1. Patient with sacral osteomyelitis with methicillin-resistant Staphylococcus aureus with methicillin-resistant Staphylococcus aureus bacteremia. Cultures from 05/19 positive. Blood culture has been repeated to make sure clearance of her underlying bacteremia. She will be continued on daptomycin as well flagyl to discontinue the Zosyn. 2. Patient with yeast positive urine culture. Chaves has been changed. Repeat culture so far negative. Will hold on any Diflucan at this point. [facility]
[2016-05-22] MEDS: SODIUM BICARBONATE TAB 650 MG TAB PO SCH ×3 (08:28→21:53)
[2016-05-22] MEDS: FAMOTIDINE 20 MG TAB PO SCH (08:28)
[2016-05-22] MEDS: MENTHOL-CAMPHOR LOTION 222 APPLIC/222 ML BOTTLE TOPICAL SCH ×3 (08:28→21:50)
[2016-05-22] MEDS: HYDROcodone/APAP 5-325MG 1 EACH TAB PO PRN (08:33)
--- NOTE | 2016-05-22 09:53 | PN ---
Patient is seen for followup for acute kidney injury, currently dialysis dependent. She has an indwelling Chaves catheter with no significant urine output. The 24-hour urine output was only 30 mL. Patient is maintained on dialysis on a Wednesday, Wednesday, Wednesday schedule. She is scheduled for dialysis today. She has severe sepsis with bacteremia from MRSA and sacral osteomyelitis. On examination, the patient is sleeping but arousable. Blood pressure is 127/65, heart rate 86 per minute. She is afebrile. EXAMINATION OF THE HEART: S1 and S2. EXAMINATION OF THE LUNGS: Decreased breath sounds in bases. ABDOMEN: Soft, nontender. Examination of the lower extremities shows trace edema bilaterally. STENOTYPE OPERATOR exam cannot be performed at this time patient is sleeping. Labs show sodium 135 from 05/20 and potassium 4.4. ASSESSMENT: 1. Acute kidney injury hemodialysis dependent. Labs are ordered for today. Continue hemodialysis on a Wednesday, Wednesday, Wednesday schedule. Patient remains with no urine output. 2. Sepsis with methicillin-resistant Staphylococcus aureus bacteremia. Blood cultures again on 05/19 were positive for methicillin-resistant Staphylococcus aureus. They were drawn again yesterday and those are pending. She is maintained on daptomycin and being followed by Infectious Disease. 3. Anemia with no active bleeding noted. Patient will be maintained on Aranesp and I will order iron studies. PLAN: Hemodialysis today. Check iron studies. Start Aranesp. Follow up on blood cultures. She continues to be bacteremic if the repeat cultures from 05/21 are also positive on antibiotics, patient will need discontinuation of her PermCath.
[2016-05-22] MEDS: DARBEPOETIN ALFA 40 MCG/0.4 ML SYRINGE SQ SCH (11:04)
[2016-05-22] MEDS: metroNIDAZOLE-NS PMX 500 MG in SALINE 1 100ML.BAG IVPB SCH (16:10)
--- NOTE | 2016-05-22 18:13 | PN ---
DATE OF SERVICE: 05/22/2016 Reason for follow-up: Sacral osteomyelitis, MRSA. INTERVAL HISTORY: The patient is afebrile. She is feeling comfortable, not feeling well though. Denies any chest pain or shortness of breath or cough. No abdominal pain. deneis pain in the sacral area. On examination, blood pressure 158/66 with a pulse of 80, temperature 97. She is 95% on room air. General description is a middle-age female lying in bed in no distress. RESPIRATORY SYSTEM: Unlabored breathing. Clear to auscultation. HEART: S1, S2. Regular rate and rhythm. ABDOMEN: Soft, no tenderness. LABS: BUN of 86, creatinine 3.72. Repeat urine is still positive the cultures are pending. Blood culture from the 05/19 ae positive as well. Though 05/21 are currently pending. DIAGNOSTIC IMPRESSION AND PLAN: Patient with methicillin-resistant Staphylococcus aureus bacteremia with blood culture also showing evidence of Bacteroides will add oral Flagyl to cover for the Bacteroides species in addition to the daptomycin patient is already on. We will have to make sure the blood cultures are negative before letting her out. If the blood cultures from 05/21 are also positive, will need further work-up to make sure there is no evidence of any endovascular source. Continue Santyl to the wound. Continue supportive care. ELIZABETH
[2016-05-22] MEDS: COLLAGENASE 250 UNIT/GM OINTMENT 30 GM TUBE TOPICAL SCH (21:41)
[2016-05-22] MEDS: PRAVASTATIN SODIUM 80 MG TAB PO SCH (21:51)
[2016-05-22] MEDS: ACETAMINOPHEN IV (For NPO) 1,000 MG in EMPTY BAG 1 BAG IVPB PRN (22:38)
[2016-05-22 22:47] LABS: Basophils # (A) 0.2 k/uL (0-0.2); Basophils % (A) 1 %; CH 26.7; CHCM 31.9; Eosinophils % (A) 0 %; HCT 31.6 % (34.0-46.0); HDW 2.36; HGB 10.2 gm/dL (11.4-16.0); Luc # (Auto) 0.54; Luc % (Auto) 2; Lymphocytes # (A) 0.6 k/uL (1.0-4.8); Lymphocytes % (A) 2 %; MCH 27.2 pg (25.0-35.0); MCHC 32.4 g/dL (31.0-37.0); MCV 83.9 fL (80.0-100.0); Mean Platelet Volume 9.1; Monocytes % (A) 3 %; Neutrophils % (A) 92 %; RBC 3.76 m/uL (3.80-5.40); RDW 15.6 % (11.5-15.5); WBC (Perox) 30.92
[2016-05-22 22:51] LABS: WBC 30.3 k/uL (3.8-10.6)
[2016-05-22 23:08] LABS: Calcium 8.9 mg/dL (8.4-10.2); Potassium 5.7 mmol/L (3.5-5.1)
[2016-05-22 23:17] LABS: % Iron Saturation 20.8 % (20-50)
[2016-05-22] MEDS ORDERED: SODIUM POLYSTYRENE SULFONATE 15 GM/60 ML BOTTLE PO STA (23:24)
[2016-05-22] MEDS ORDERED: IPRATROPIUM-ALBUTEROL 3 ML NEB INHALATION PRN (23:32)
[2016-05-22] MEDS ORDERED: SODIUM BICARB 8.4% 50 ML SYR (1 MEQ/ML) IV STA (23:48)
[2016-05-22] MEDS ORDERED: DEXTROSE 50%-WATER 50 ML SYRINGE IVP STA (23:49)
[2016-05-22] MEDS ORDERED: INSULIN REGULAR 100 UNIT/ML VIAL IV ONE (23:50)
--- NOTE | 2016-05-22 23:51 | P.PN ---
Subjective Date of service 05/22/2016. Progress note being dictated for Dr. Waters. Interval history: This a 46-year-old female admitted with sepsis, MRSA bacteremia, UTI, pneumonia, acute renal failure and multiple other medical issues in a patient with MS. Continues on on Zosyn and daptomycin, with addition of Flagyl as per Infectious disease. Blood cultures continue to be positive for MRSA with repeat cultures pending. Denies chest pain, palpitations or increasing shortness of breath. Scheduled for hemodialysis today. Labs pending. . Objective - Vital Signs Vital signs: Vital Signs Temp 97 F L 05/22/16 08:00 Pulse 80 05/22/16 11:06 Resp 17 05/22/16 11:06 BP 115/66 05/22/16 11:06 Pulse Ox 95 05/22/16 11:06 Intake & Output 05/21/16 05/22/16 05/22/16 18:59 06:59 18:59 Intake Total 450 237 Output Total 20 Balance 430 237 Weight 101.5 kg 101 kg Intake: Intake, IV Titration 50 Amount Piperacillin-Tazobactam 3 50 .375 gm In Dextrose/Water 1 50ml.bag @ 12.5 mls/hr IVPB Q12HR YANIRA Rx#: [id number] Oral 400 237 Output: Urine 20 Other: Voiding Method Indwelling Catheter Indwelling Catheter Indwelling Catheter # Voids 0 # Bowel Movements 2 1 - Exam PHYSICAL EXAM: VITAL SIGNS: As above GENERAL: [Sitting up in bed, tired appearing, no acute distress HEENT: [Pupils equal conjunctiva normal.] NECK: [Supple, no JVD] RESPIRATORY EFFORT:[Mildly increased] LUNGS: [Diminished, no wheezing, crackles or rhonchi] CARDIOVASCULAR[regular S1 and S2, no murmurs rubs or gallops, positive edema] GI: [Abdomen soft, nontender, positive bowel sounds.] PSYCH: [Alert and oriented -3, mood and affect normal.] SKIN: Sacral dressing clean dry and intact NEURO: [No focal deficits] Microbiology 05/19/16 22:02 Blood Blood Culture Gram Stain - Final 05/19/16 22:02 Blood Blood Culture - Final Methicillin resist S. aureus 05/19/16 15:00 Urine,Catheterized Urine Culture - Final Ronda albicans 05/21/16 09:45 Blood Blood Culture - Preliminary No Growth after 24 hours 05/18/16 15:07 Buttock Gram Stain - Final 05/18/16 15:07 Buttock Wound Culture - Final Methicillin resist S. aureus Enterococcus faecium VRE 05/19/16 05:41 Blood Blood Culture - Preliminary No Growth after 72 hours 05/18/16 11:33 Blood Blood Culture Gram Stain - Final 05/18/16 11:33 Blood Blood Culture - Final Methicillin resist S. aureus Bacteroides ovatus 05/18/16 15:07 Buttock Anaerobic Culture - Final Anaerobic Gm Negative Bacilli 05/19/16 22:02 Blood Blood Culture - Preliminary 05/17/16 10:20 Blood Blood Culture Gram Stain - Final 05/17/16 10:20 Blood Blood Culture - Final Methicillin resist S. aureus 05/18/16 11:33 Blood Blood Culture - Preliminary 05/17/16 12:00 Urine,Catheterized Urine Culture - Final Ronda albicans 05/17/16 10:20 Blood Blood Culture - Preliminary - Labs CBC & Chem 7: 05/22/16 22:35 05/22/16 22:35 Labs: Microbiology - Last 24 Hours (Table) 05/19/16 05:41 Blood Culture - Preliminary Blood No Growth after 72 hours 05/19/16 22:02 Blood Culture Gram Stain - Preliminary Blood Blood Culture - Preliminary Presumptive MRSA 05/18/16 11:33 Blood Culture Gram Stain - Final Blood Blood Culture - Final Methicillin resist S. aureus Bacteroides ovatus 05/18/16 15:07 Anaerobic Culture - Final Buttock Anaerobic Gm Negative Bacilli 05/19/16 22:02 Blood Culture - Preliminary Blood Assessment and Plan Plan: 1. [Severe sepsis,secondary to MRSA bacteremia, diffuse bilateral pneumonia, acute UTI with Ronda albicans]. Repeat cultures pending. 2. [Acute renal failure multi factorial, including septic ATN, prerenal azotemia ]. Temporary dialysis catheter placed with initiation of hemodialysis. 3. [Sacral osteomyelitis]. 4. [Hyponatremia, euvolemic]. 5. [Iron deficient anemia, of chronic disease]. 6. [Metabolic acidosis secondary to acute renal failure]. 7. Tachycardia secondary to severe sepsis, improving 8. Gastroesophageal reflux disease 9. Multiple sclerosis, no acute exacerbation at this time 10. Mild protein calorie malnutrition Plan continue on current medication regime , sodium bicarb , protein supplements , monitoring and symptomatic treatment. Awaiting negative follow-up blood culture on current regimen .Follow cultures closely with Antibiotics as per ID. Hemodialysis pending. Prognosis guarded given multiple complex medical issues. Further recommendations to follow. The impression and plan of care has been dictated as directed. : I performed a H&P examination of this patient and discussed the same with the dictator. I agree with the dictator's note. Any additional findings/opinions/ etc. will be noted.
[2016-05-23] MEDS: DEXTROSE 5% IN WATER 1,000 ML with SODIUM BICARB (1 MEQ/ML) 150 ML IV SCH ×2 (00:21→18:47)
[2016-05-23] MEDS: metroNIDAZOLE-NS PMX 500 MG in SALINE 1 100ML.BAG IVPB SCH ×4 (00:21→23:05)
[2016-05-23] MEDS: GABAPENTIN 100 MG CAP PO SCH ×4 (00:44→20:39)
[2016-05-23] MEDS: PRAVASTATIN SODIUM 80 MG TAB PO SCH ×2 (00:44→20:39)
[2016-05-23 06:28] LABS: Calcium 8.9 mg/dL (8.4-10.2); Potassium 5.3 mmol/L (3.5-5.1)
[2016-05-23 06:41] LABS: CH 26.6; CHCM 31.6; HCT 29.7 % (34.0-46.0); HDW 2.33; HGB 9.2 gm/dL (11.4-16.0); MCH 26.2 pg (25.0-35.0); MCHC 31.1 g/dL (31.0-37.0); MCV 84.2 fL (80.0-100.0); Mean Platelet Volume 8.1; RBC 3.53 m/uL (3.80-5.40); RDW 15.3 % (11.5-15.5); WBC (Perox) 30.13
[2016-05-23 07:23] LABS: Add Differential Manual Differential
[2016-05-23 07:25] LABS: Manual Review Performed; Nucleated Red Blood Cells 0 /100 WBC (0-0)
[2016-05-23 07:26] LABS: Total Cells Counted 100
[2016-05-23] MEDS: IPRATROPIUM-ALBUTEROL 3 ML NEB INHALATION SCH ×4 (08:10→20:50)
--- NOTE | 2016-05-23 11:26 | P.PN ---
Subjective Patient is seen in follow-up for acute kidney injury. Her baseline creatinine is near 0.6 and developed hemodialysis dependent acute kidney injury from sepsis this admission. She is oliguric. She is also acidotic with bicarb level of 11 as of last night and was started on a bicarbonate drip. This morning her bicarb level is up to 17. Patient presented with hypotension and was subsequently diagnosed with pneumonia. She also has sacral osteomyelitis for which she is currently maintained on antibiotics. Her blood cultures are positive for MRSA and Bacteroides. Patient denies any chest pain or shortness of breath. Her appetite is fair. Vital signs are stable. General: The patient appeared well nourished and normally developed. HEENT: Head exam is unremarkable. Neck is without jugular venous distension. LUNGS: Lungs are clear to auscultation and percussion. Breath sounds decreased. HEART: Rate and Rhythm are regular. First and second heart sounds normal. No murmurs, rubs or gallops. ABDOMEN: Abdominal exam reveals normal bowel sounds. Non-tender and non- distended. No evidence of peritonitis. EXTREMITITES: No clubbing, cyanosis, or edema. Objective - Vital Signs Vital signs: Vital Signs Temp 96.8 F L 05/23/16 09:30 Pulse 83 05/23/16 09:30 Resp 18 05/23/16 09:30 BP 111/71 05/23/16 09:30 Pulse Ox 98 05/23/16 09:30 Intake & Output 05/22/16 05/23/16 05/23/16 18:59 06:59 18:59 Intake Total 237 1080 Balance 237 1080 Weight 102.5 kg Intake: IV 400 Sodium Chloride 0.9% 1, 400 000 ml @ 80 mls/hr IV . [id number] YANIRA Rx#:[id number] Intake, IV Titration 680 Amount ACETAMINOPHEN IV (For NPO 100 ) 1,000 mg In Empty Bag 1 bag @ 400 mls/hr IVPB Q6HR PRN Rx#:[id number] Dextrose 5% in Water 1, 480 000 ml @ 80 mls/hr IV . [id number] YANIRA with Sodium Bicarb (1 Meq/ml) 150 ml Rx#:[id number] metroNIDAZOLE-NS PMX 500 100 mg In Saline 1 100ml.bag @ 100 mls/hr IVPB Q8HR YANIRA Rx#:[id number] Oral 237 Other: Voiding Method Indwelling Catheter Indwelling Catheter # Bowel Movements 1 - Labs CBC & Chem 7: 05/23/16 05:45 05/23/16 05:45 Labs: Abnormal Lab Results - Last 24 Hours (Table) 05/22/16 05/22/16 05/23/16 Range/Units 22:35 22:35 05:45 WBC 30.3 H* 28.0 H* (3.8-10.6) k/uL RBC 3.76 L 3.53 L (3.80-5.40) m/uL Hgb 10.2 L 9.2 L (11.4-16.0) gm/dL Hct 31.6 L 29.7 L (34.0-46.0) % RDW 15.6 H (11.5-15.5) % Neutrophils # 28.0 H (1.3-7.7) k/uL Neutrophils # (Manual) 24.9 H (1.3-7.7) k/uL Lymphocytes # 0.6 L (1.0-4.8) k/uL Sodium 135 L (137-145) mmol/L Potassium 5.7 H (3.5-5.1) mmol/L Carbon Dioxide 11 L (22-30) mmol/L BUN 109 H* (7-17) mg/dL Creatinine 5.40 H* (0.52-1.04) mg/dL Glucose 120 H (74-99) mg/dL Iron 36 L (37-170) ug/dL TIBC 173 L (265-497) ug/dL 05/23/16 Range/Units 05:45 WBC (3.8-10.6) k/uL RBC (3.80-5.40) m/uL Hgb (11.4-16.0) gm/dL Hct (34.0-46.0) % RDW (11.5-15.5) % Neutrophils # (1.3-7.7) k/uL Neutrophils # (Manual) (1.3-7.7) k/uL Lymphocytes # (1.0-4.8) k/uL Sodium (137-145) mmol/L Potassium 5.3 H (3.5-5.1) mmol/L Carbon Dioxide 17 L (22-30) mmol/L BUN 116 H* (7-17) mg/dL Creatinine 5.50 H* (0.52-1.04) mg/dL Glucose 123 H (74-99) mg/dL Iron (37-170) ug/dL TIBC (265-497) ug/dL Microbiology - Last 24 Hours (Table) 05/19/16 05:41 Blood Culture - Preliminary Blood No Growth after 96 hours 05/19/16 22:02 Blood Culture Gram Stain - Final Blood Blood Culture - Final Methicillin resist S. aureus 05/19/16 15:00 Urine Culture - Final Urine,Catheterized Ronda albicans 05/21/16 09:45 Blood Culture - Preliminary Blood No Growth after 24 hours 05/18/16 15:07 Gram Stain - Final Buttock Wound Culture - Final Methicillin resist S. aureus Enterococcus faecium VRE Assessment and Plan Plan: Assessment: #1. Acute kidney injury secondary to septic ATN. Now hemodialysis dependent on a Wednesday schedule. Urine eosinophils negative. Baseline creatinine 0.6. #2. Severe sepsis secondary to pneumonia and bacteremia. #3. MRSA and Bacteroides bacteremia. #4. Metabolic acidosis secondary to acute kidney injury. #5. Hyperkalemia secondary to metabolic acidosis and acute kidney injury. Plan: Continue with sodium bicarbonate drip to be run at 80 mL an hour. Her femoral catheter is malfunctioning and she scheduled to receive an IJ catheter today. Hemodialysis today. Maintain Aranesp. Antibiotics per infectious disease recommendations. Continue to monitor renal function and urine output closely.
[2016-05-23] MEDS: FAMOTIDINE 20 MG TAB PO SCH (11:32)
[2016-05-23] MEDS: SODIUM BICARBONATE TAB 650 MG TAB PO SCH ×3 (11:33→20:40)
[2016-05-23] MEDS: MENTHOL-CAMPHOR LOTION 222 APPLIC/222 ML BOTTLE TOPICAL SCH ×3 (11:33→20:40)
[2016-05-23] MEDS ORDERED: LIDOCAINE 2% INJ 20 MG/ML SQ ONE (12:08)
[2016-05-23] MEDS ORDERED: SODIUM CHLORIDE 0.9% 1,000 ML IV ONE (12:08)
[2016-05-23] MEDS: FLUCONAZOLE 100 MG TAB PO SCH (13:04)
[2016-05-23] MEDS: DAPTOmycin 500 MG in SODIUM CHLORIDE 0.9% 50 ML IV SCH (13:06)
[2016-05-23] MEDS: HYDROcodone/APAP 5-325MG 1 EACH TAB PO PRN ×2 (13:11→19:06)
--- NOTE | 2016-05-23 13:14 | IR ---
Fluoroscopy INDICATION: Pain FINDINGS: Fluoroscopy time: 1 minute 12 seconds. Images obtained: Multiple video images.. IMPRESSIONS: 1. Documentation of fluoroscopy.
--- NOTE | 2016-05-23 13:15 | XR ---
EXAMINATION TYPE: XR chest 1V portable DATE OF EXAM: 05/23/2016 1:12 PM COMPARISON: NONE INDICATION: Port placement TECHNIQUE: Single frontal view of the chest is obtained. FINDINGS: The heart size is normal. The pulmonary vasculature is prominent. Mild diffuse increased lung markings are present. Correlate for pulmonary edema. There is a double-lumen catheter which was placed on the right. Tips are within the proximal right at rium. No pneumothorax is present. IMPRESSION: 1. No pneumothorax post line placement.
--- NOTE | 2016-05-23 15:04 | PCN ---
DATE OF PROCEDURE: This is a 46-year-old female with acute chronic renal failure. Patient is on dialysis. She had a dialysis in the right femoral vein, femoral vein is nonfunctional. The patient is scheduled to have dialysis catheter, right internal jugular vein. Patient was brought to the clinical lab technologist. The right side of the neck and chest was prepped and draped in sterile manner. 1% lidocaine plain infiltrated into the neck area. Ultrasound-guided micropuncture introduced right jugular vein. Micropuncture guidewire was passed. After that, we passed a 4 [place]i dilator and through the dilator advanced the guidewire which was parked in the inferior vena cava. A tunnel was created. Through the tunnel brought the 28 cm dialysis catheter and dilator was advanced on top of the guidewire and sheath was advanced on top of the guidewire. Through the sheath, we introduced the dialysis catheter. Tip of the catheter in the superior vena cava and atrium flushed with heparin saline and hep-locked. Incision was closed with Vicryl and nylon. Dressing applied. Patient tolerated the procedure well and then right groin was prepped and patient had a right temporal dialysis catheter. Sutures were removed. Dialysis catheter was removed. Pressure was held. The patient tolerated the procedure well. PROCEDURE: 1. Placement of 28 cm dialysis catheter, right jugular ( ). 2. Removal of dialysis catheter, right femoral approach.
[2016-05-23] MEDS: COLLAGENASE 250 UNIT/GM OINTMENT 30 GM TUBE TOPICAL SCH (18:47)
--- NOTE | 2016-05-23 19:57 | PN ---
Patient is a 45-year-old admitted with sepsis. Patient has MRSA bacteremia as well as bacteremia with Bacteroides fragilis. Patient is on metronidazole and daptomycin at this point of time. Patient had an episode of respiratory decompensation along with tachycardia last night, which improved at this point of time and this is secondary to old sepsis and bacteremia. Patient is also on Diflucan. Patient is undergoing hemodialysis today. Her dialysis access was changed today morning. REVIEW OF SYSTEMS: CARDIOVASCULAR: No chest pain, no orthopnea, no PND, no palpitations. PULMONARY: Denied any shortness of breath. No cough or hemoptysis. GASTROINTESTINAL: No diarrhea, nausea or vomiting. No abdominal pain. Normoactive bowel sounds. NEUROLOGIC: No headaches, no weakness, no numbness. Medications were reviewed. PHYSICAL EXAMINATION: VITAL SIGNS: Temperature 98.5, pulse of 87, respiratory rate of 18, blood pressure 112/67, saturating at 97% on room air. GENERAL: The patient is alert and oriented x3, not in any acute distress. Well developed, well nourished. HEENT: Pupils are round and equally reacting to light. EOMI. No scleral icterus. No conjunctival pallor. Normocephalic, atraumatic. No pharyngeal erythema. No thyromegaly. CARDIOVASCULAR: S1 and S2 present. No murmurs, rubs, or gallops. PULMONARY: Bibasilar crackles are appreciated. ABDOMEN: Soft, nontender, nondistended, normoactive bowel sounds. No palpable organomegaly. MUSCULOSKELETAL: No joint swelling or deformity. EXTREMITIES: No cyanosis, clubbing, or pedal edema. NEUROLOGICAL: No new focal neurological deficits were appreciated and patient is undergoing hemodialysis when I evaluated the patient. SKIN: No rashes. LABORATORY DATA: Chest x-ray showed mild pulmonary edema. WBC went up to 30,000. Potassium of 5.2. Patient is presently undergoing hemodialysis. BUN of 116, creatinine 1.50. ASSESSMENT AND PLAN: 1. Severe sepsis secondary to methicillin-resistant Staphylococcus aureus bacteremia as well as Bacteroides fragilis. Patient is on metronidazole and daptomycin and patient also has Ronda in the urine for patient is on fluconazole. Patient has severe sepsis. Repeat blood cultures today. 2. Renal failure secondary to acute tubular necrosis and prerenal azotemia. Patient ( ), is undergoing hemodialysis. 3. Osteomyelitis of the sacrum for which patient has a wound VAC and is on antibiotics. 4. Iron-deficiency anemia of chronic disease. 5. Severe metabolic acidosis secondary to renal failure. 6. Uremia. 7. Hyperkalemia secondary to renal failure, expected to improve with hemodialysis. 8. Tachycardia secondary to severe sepsis, which improved at this time. 9. Gastroesophageal reflux disease. 10. Multiple sclerosis. 11. Mild to moderate protein-calorie malnutrition.
[2016-05-24] MEDS: DEXTROSE 5% IN WATER 1,000 ML with SODIUM BICARB (1 MEQ/ML) 150 ML IV SCH (03:59)
[2016-05-24] MEDS: ACETAMINOPHEN IV (For NPO) 1,000 MG in EMPTY BAG 1 BAG IVPB PRN (04:31)
[2016-05-24] MEDS: GABAPENTIN 100 MG CAP PO SCH ×3 (05:27→21:25)
[2016-05-24 06:24] LABS: CH 26.6; CHCM 31.4; HCT 26.8 % (34.0-46.0); HDW 2.25; HGB 8.9 gm/dL (11.4-16.0); MCH 28.1 pg (25.0-35.0); MCHC 33.1 g/dL (31.0-37.0); MCV 84.9 fL (80.0-100.0); Mean Platelet Volume 7.7; RBC 3.16 m/uL (3.80-5.40); RDW 15.2 % (11.5-15.5); WBC 20.6 k/uL (3.8-10.6); WBC (Perox) 21.16
[2016-05-24 06:36] LABS: Potassium 4.6 mmol/L (3.5-5.1)
[2016-05-24 07:11] LABS: Add Differential Manual Differential
[2016-05-24 07:13] LABS: Band Neutrophils % 0.5 %; Manual Review Performed; Metamyelocytes % 0.5 %; Nucleated Red Blood Cells 0 /100 WBC (0-0); Total Cells Counted 200
[2016-05-24] MEDS: metroNIDAZOLE-NS PMX 500 MG in SALINE 1 100ML.BAG IVPB SCH ×3 (08:06→23:20)
[2016-05-24] MEDS: FAMOTIDINE 20 MG TAB PO SCH (08:07)
[2016-05-24] MEDS: SODIUM BICARBONATE TAB 650 MG TAB PO SCH ×3 (08:07→21:26)
[2016-05-24] MEDS: FLUCONAZOLE 100 MG TAB PO SCH (08:07)
[2016-05-24] MEDS: HYDROcodone/APAP 5-325MG 1 EACH TAB PO PRN ×2 (08:10→14:04)
--- NOTE | 2016-05-24 08:17 | PN ---
DATE OF SERVICE: 05/23/2016 Reason for follow-up: Sacral osteomyelitis and Methicillin-resistant Staph aureus and Bacteroides bacteremia. INTERVAL HISTORY: The patient did spike a fever last night white count. However, the patient did have repeat blood cultures obtained and is afebrile since then. She did have dialysis catheter and that catheter has been discontinued. The patient denies having any chest pain or shortness of pain. Occasional cough. No significant abdominal pain or any diarrhea. On examination, blood pressure is 112/67, pulse 103, temperature 98.4. She is 97% on room air. General description is an elderly female, lying in bed in no distress. RESPIRATORY SYSTEM: Unlabored breathing. Clear to auscultation anteriorly. HEART: S1, S2. Regular rate and rhythm. ABDOMEN: Soft. No tenderness. LABS: Hemoglobin is 9.8 and white count of 28, BUN of 80 creatinine 5.50. Blood cultures from 05/21 has been negative so far. DIAGNOSTIC IMPRESSION AND PLAN: Patient with sacral osteomyelitis with Methicillin-resistant Staph aureus and Bacteroides bacteremia. Currently the patient is on Daptomycin and Flagyl that will be continued. She is also growing VRE in the sacral wound as well that is being covered with Daptomycin. We recommend continuing with antibiotics post dialysis and there is no need for PICC line along with oral Flagyl and will continue with the Santyl and plan of care discussed in detail with the attending physician. ELIZABETH
[2016-05-24] MEDS: IPRATROPIUM-ALBUTEROL 3 ML NEB INHALATION SCH ×4 (08:20→20:52)
--- NOTE | 2016-05-24 09:13 | P.PN ---
Subjective Patient is seen in follow-up for acute kidney injury. Her baseline creatinine is near 0.6 and developed hemodialysis dependent acute kidney injury from sepsis this admission. She is oliguric. Patient presented with hypotension and was subsequently diagnosed with pneumonia. She also has sacral osteomyelitis for which she is currently maintained on antibiotics. Her blood cultures are positive for MRSA and Bacteroides. Patient denies any chest pain or shortness of breath. Her appetite is fair. Vital signs are stable. General: The patient appeared well nourished and normally developed. HEENT: Head exam is unremarkable. Neck is without jugular venous distension. LUNGS: Lungs are clear to auscultation and percussion. Breath sounds decreased. HEART: Rate and Rhythm are regular. First and second heart sounds normal. No murmurs, rubs or gallops. ABDOMEN: Abdominal exam reveals normal bowel sounds. Non-tender and non- distended. No evidence of peritonitis. EXTREMITITES: 1+ edema. Objective - Vital Signs Vital signs: Vital Signs Temp 99.1 F 05/24/16 06:56 Pulse 100 05/24/16 08:33 Resp 18 05/24/16 04:00 BP 126/75 05/24/16 04:00 Pulse Ox 98 05/24/16 04:00 Intake & Output 05/23/16 05/24/16 05/24/16 18:59 06:59 18:59 Intake Total 236 526 9331 Balance 508 895 3715 Weight 102.5 kg Intake: IV 425 Sodium Chloride 0.9% 1, 400 000 ml @ 80 mls/hr IV . [id number] YANIRA Rx#:[id number] Intake, IV Titration 150 200 960 Amount ACETAMINOPHEN IV (For NPO 100 ) 1,000 mg In Empty Bag 1 bag @ 400 mls/hr IVPB Q6HR PRN Rx#:[id number] DAPTOmycin 500 mg In 50 Sodium Chloride 0.9% 50 ml @ 100 mls/hr IV Q48H YANIRA Rx#:[id number] Dextrose 5% in Water 1, 960 000 ml @ 80 mls/hr IV . [id number] YANIRA with Sodium Bicarb (1 Meq/ml) 150 ml Rx#:[id number] metroNIDAZOLE-NS PMX 500 100 100 mg In Saline 1 100ml.bag @ 100 mls/hr IVPB Q8HR YANIRA Rx#:[id number] Oral 237 240 Other: Voiding Method Indwelling Catheter Indwelling Catheter # Voids 0 0 - Labs CBC & Chem 7: 05/24/16 05:57 05/24/16 05:50 Labs: Abnormal Lab Results - Last 24 Hours (Table) 05/24/16 05/24/16 Range/Units 05:50 05:57 WBC 20.6 H (3.8-10.6) k/uL RBC 3.16 L (3.80-5.40) m/uL Hgb 8.9 L (11.4-16.0) gm/dL Hct 26.8 L (34.0-46.0) % Neutrophils # (Manual) 18.0 H (1.3-7.7) k/uL Sodium 136 L (137-145) mmol/L Carbon Dioxide 21 L (22-30) mmol/L BUN 82 H* (7-17) mg/dL Creatinine 4.10 H (0.52-1.04) mg/dL Glucose 137 H (74-99) mg/dL Microbiology - Last 24 Hours (Table) 05/19/16 05:41 Blood Culture - Preliminary Blood No Growth after 120 hours 05/22/16 22:51 Blood Culture Gram Stain - Preliminary Blood 05/22/16 22:51 Blood Culture - Preliminary Blood 05/21/16 09:45 Blood Culture - Preliminary Blood No Growth after 48 hours Assessment and Plan Plan: Assessment: #1. Acute kidney injury secondary to septic ATN. Now hemodialysis dependent on a Wednesday schedule. Urine eosinophils negative. Baseline creatinine 0.6. Last hemodialysis on May 23. #2. Severe sepsis secondary to pneumonia and bacteremia. #3. MRSA and Bacteroides bacteremia. #4. Metabolic acidosis secondary to acute kidney injury. #5. Hyperkalemia secondary to metabolic acidosis and acute kidney injury. Plan: Discontinue sodium bicarbonate drip. Start normal saline at 50 mL an hour. Her femoral catheter was malfunctioning and underwent IJ catheter on May 23. Hemodialysis tomorrow. Maintain Aranesp. Antibiotics per infectious disease recommendations. Continue to monitor renal function and urine output closely.
[2016-05-24] MEDS: MENTHOL-CAMPHOR LOTION 222 APPLIC/222 ML BOTTLE TOPICAL SCH ×3 (09:45→21:27)
--- NOTE | 2016-05-24 13:12 | CT ---
EXAMINATION TYPE: CT sacrum wo con DATE OF EXAM: 05/24/2016 1:05 PM COMPARISON: NONE HISTORY: Sacral pain CT DLP: 1539.00 mGycm Automated exposure control for dose reduction was used. FINDINGS: There is a small amount of air within the inferior vena cava. There is a Cahves catheter within the bladder. There is an open wound just below the sacrum with a 1.9 cm mouth. There appears to be surgical packin g within this lesion. There is associated destruction of the distal coccyx adjacent to this. There are degenerative changes in the hips, greater on the right than the left. There is facet arthro deepthi in the lower lumbar facets. IMPRESSION: 1. OPEN WOUND ADJACENT TO THE SACRUM WITH ASSOCIATED DESTRUCTION OF THE DISTAL COCCYX. 2. SMALL AMOUNT OF AIR WITHIN THE INFERIOR VENA CAVA IS LIKELY IATROGENIC. 3. DEGENERATIVE CHANGES IN THE HIPS AND SPINE.
[2016-05-24] MEDS: SODIUM CHLORIDE 0.9% 1,000 ML IV SCH (14:10)
[2016-05-24] MEDS: COLLAGENASE 250 UNIT/GM OINTMENT 30 GM TUBE TOPICAL SCH (16:16)
--- NOTE | 2016-05-24 16:41 | PN ---
Patient is a 46-year-old admitted with sepsis secondary to MRSA bacteremia as well as source of bacteremia being UTI also the wounds and patient had a CT of the sacral wound which shows complete destruction of the sacrum. Patient although says she is doing okay. Patient is also on hemodialysis, patient is also on Diflucan at this point of time. Patient was initiated on hemodialysis. REVIEW OF SYSTEMS: CARDIOVASCULAR: No chest pain, no orthopnea, no PND, no palpitations. PULMONARY: Denied any shortness of breath. No cough or hemoptysis. GASTROINTESTINAL: No diarrhea, nausea or vomiting. No abdominal pain. Normoactive bowel sounds. NEUROLOGIC: No headaches, no weakness, no numbness. Medications were reviewed. PHYSICAL EXAMINATION: Temperature 98.0, pulse of 103, respiratory rate of 18, blood pressure 123/78, saturating at 100% on room air. GENERAL: The patient is alert and oriented x3, not in any acute distress. Well developed, well nourished. HEENT: Pupils are round and equally reacting to light. EOMI. No scleral icterus. No conjunctival pallor. Normocephalic, atraumatic. No pharyngeal erythema. No thyromegaly. CARDIOVASCULAR: S1 and S2 present. No murmurs, rubs, or gallops. PULMONARY: Chest is clear to auscultation, no wheezing or crackles. ABDOMEN: Soft, nontender, nondistended, normoactive bowel sounds. No palpable organomegaly. MUSCULOSKELETAL: No joint swelling or deformity. EXTREMITIES: No cyanosis, clubbing, or pedal edema. DERMATOLOGIC: No significant change. NEUROLOGICAL: No change compared to yesterday. LABORATORY DATA: CBC, CMP are abnormal for elevated BUN and creatinine of 82 and 4.10, both of them are improved from yesterday. ASSESSMENT AND PLAN: 1. Severe sepsis secondary to methicillin-resistant Staphylococcus aureus bacteremia, so far repeat blood cultures are negative and patient also has bacteremia with bacteroides ovatus. Patient is on metronidazole and daptomycin for those organisms and patient is also on fluconazole. 2. Renal failure secondary to acute tubular necrosis. Patient needs hemodialysis. Patient was initiated on hemodialysis here. 3. Osteomyelitis of the sacrum. 4. Iron deficiency anemia. 5. Multiple sclerosis without any acute exacerbations. Patient is mostly bedbound because of that and patient has weakness in all the extremities. 6. Severe metabolic acidosis secondary to renal failure and uremia. 7. Hyperkalemia due to renal failure, which improved with hemodialysis. 8. Tachycardia due to severe sepsis and multiple other medical problems as mentioned above. 9. Mild to moderate protein calorie malnutrition.
[2016-05-24] MEDS: PRAVASTATIN SODIUM 80 MG TAB PO SCH (21:26)
[2016-05-25] MEDS: GABAPENTIN 100 MG CAP PO SCH ×3 (06:05→22:17)
[2016-05-25] MEDS: SODIUM CHLORIDE 0.9% 1,000 ML IV SCH ×2 (06:10→23:43)
[2016-05-25 07:05] LABS: CH 26.6; CHCM 31.8; HCT 26.5 % (34.0-46.0); HDW 2.22; HGB 8.4 gm/dL (11.4-16.0); MCH 26.6 pg (25.0-35.0); MCHC 31.7 g/dL (31.0-37.0); MCV 83.8 fL (80.0-100.0); Mean Platelet Volume 7.4; RBC 3.17 m/uL (3.80-5.40); RDW 15.1 % (11.5-15.5); WBC 24.1 k/uL (3.8-10.6)
--- NOTE | 2016-05-25 07:18 | PN ---
DATE OF SERVICE: 05/24/2016 Reason for followup is MRSA and Bacteroides bacteremia secondary to sacral osteomyelitis. INTERVAL HISTORY: The patient is afebrile. She has been breathing comfortably, though feeling weak and tired, no energy. No nausea or vomiting. No significant abdominal pain or any diarrhea. On examination, blood pressure is 123/78 with a pulse of 94, temperature 98. She is 100% on room air. General description is a middle-aged female, lying in bed in no distress. RESPIRATORY SYSTEM: Unlabored breathing. Clear to auscultation anteriorly. HEART: S1, S2 regular rate and rhythm. ABDOMEN: Soft, no tenderness. EXTREMITIES: No edema of the feet. LABS: Hemoglobin 8.1 and white count is 20,000 with a BUN of 82, creatinine 4.10. The blood culture that was done on 05/22 are coming been positive. DIAGNOSTIC IMPRESSION AND PLAN: 1. Patient with an methicillin-resistant Staphylococcus aureus and Bacteroides bacteremia, source is sacral osteomyelitis in a patient that now has persistent bacteremia. Even that culture that was done on s positive now. I did discuss in detail with the RN that the daptomycin should be given only after hemodialysis. Will also obtain a CT of the sacrum area to see if there was any abscess that may lead to persistence of this bacteremia or shows destruction of the distal coccyx, but no abscess collection. In view of the bacteremia for more than a week now, will obtain a MELI just to make sure there is no evidence of any involvement of the heart wall. Blood cultures will be repeated today and will also discuss with the admitting team to see if we can get General Surgery involvement with Dr. Brothers for debridment of that destroyed sacrum to help cure this infection. Prognosis remains to be guarded. Continue daptomycin and Flagyl. 2. Urinary tract infection. Currently covered with Diflucan. MTDD
[2016-05-25 07:23] LABS: Calcium 9.1 mg/dL (8.4-10.2); Potassium 5.3 mmol/L (3.5-5.1)
[2016-05-25] MEDS: IPRATROPIUM-ALBUTEROL 3 ML NEB INHALATION SCH ×4 (07:26→20:05)
[2016-05-25] MEDS: HYDROcodone/APAP 5-325MG 1 EACH TAB PO PRN ×2 (09:00→16:53)
[2016-05-25] MEDS: metroNIDAZOLE-NS PMX 500 MG in SALINE 1 100ML.BAG IVPB SCH ×3 (09:00→23:43)
[2016-05-25] MEDS: SODIUM BICARBONATE TAB 650 MG TAB PO SCH ×3 (09:01→22:17)
[2016-05-25] MEDS: FLUCONAZOLE 100 MG TAB PO SCH (09:01)
[2016-05-25] MEDS: FAMOTIDINE 20 MG TAB PO SCH (09:01)
[2016-05-25] MEDS: MENTHOL-CAMPHOR LOTION 222 APPLIC/222 ML BOTTLE TOPICAL SCH ×3 (09:02→22:17)
--- NOTE | 2016-05-25 13:53 | PN ---
Patient is seen for followup for acute kidney injury, currently dialysis-dependent. Patient continues to have no significant urine output. She is maintained on a Wednesday, Wednesday, Wednesday schedule for dialysis. On examination, she is currently comfortable, awake, not in any acute distress. Blood pressure is 142/82, heart rate 96 per minute. She is afebrile. Examination of the heart, S1 and S2. Examination of the lungs, bilateral breath sounds are heard. Decreased breath sounds at the bases. Abdomen is soft, nontender. Examination of lower extremities shows edema 2+ bilaterally. Labs show potassium 5.3. ASSESSMENT: 1. Acute kidney injury, currently hemodialysis-dependent which is oliguric acute tubular necrosis, with no significant urine output, maintained on Wednesday, Wednesday, Wednesday schedule for dialysis. 2. Mild volume overload will increase ultrafiltration to about 3 L as tolerated. 3. Sepsis with methicillin-resistant Staphylococcus aureus bacteremia, maintained on daptomycin, repeat blood culture on 05/22/2016 still showing MRSA. Patient has had an IJ catheter placed on May 23, so hopefully the repeat blood cultures following new catheter placement and removal of previous catheter will be negative. 4. Sacral osteomyelitis. PLAN: Increase UF with hemodialysis today.
--- NOTE | 2016-05-25 16:06 | P.PN ---
Subjective Date of service 05/25/2016. Progress note being dictated for Dr. Waters. Interval history: This a 46-year-old female admitted with sepsis, MRSA bacteremia, UTI, pneumonia, acute renal failure and multiple other medical issues in a patient with MS. Continues on on Zosyn and daptomycin, Flagyl as per Infectious disease. Blood cultures continue to be positive for MRSA with repeat cultures pending. Scheduled for MELI tomorrow. Hemodialysis today. Denies chest pain, palpitations or increasing shortness of breath. Afebrile. . Objective - Vital Signs Vital signs: Vital Signs Temp 97.8 F 05/25/16 08:00 Pulse 94 05/25/16 15:15 Resp 20 05/25/16 04:00 BP 142/82 05/25/16 12:00 Pulse Ox 97 05/25/16 08:00 Intake & Output 05/24/16 05/25/16 05/25/16 18:59 06:59 18:59 Intake Total 2734 350 Output Total 0 50 Balance 2734 300 Weight 103 kg 103 kg Intake: Intake, IV Titration 1720 Amount Dextrose 5% in Water 1, 960 000 ml @ 80 mls/hr IV . [id number] YANIRA with Sodium Bicarb (1 Meq/ml) 150 ml Rx#:[id number] Sodium Chloride 0.9% 1, 660 000 ml @ 50 mls/hr IV . Q20H YANIRA Rx#:[id number] metroNIDAZOLE-NS PMX 500 100 mg In Saline 1 100ml.bag @ 100 mls/hr IVPB Q8HR YANIRA Rx#:[id number] Oral 1014 350 Output: Urine 0 50 Other: Voiding Method Indwelling Catheter Indwelling Catheter Indwelling Catheter # Bowel Movements 1 - Exam PHYSICAL EXAM: VITAL SIGNS: As above GENERAL: [Sitting up in bed, no acute distress, HEENT: [Pupils equal conjunctiva normal. No conjunctival pallor, normocephalic , atraumatic.] NECK: [Supple, no JVD] RESPIRATORY EFFORT:[Mildly increased] LUNGS: [Diminished, no wheezing, crackles or rhonchi] CARDIOVASCULAR[regular S1 and S2, no murmurs rubs or gallops, positive edema] GI: [Abdomen soft, nontender, positive bowel sounds.] PSYCH: [Alert and oriented -3, mood and affect normal.] SKIN: No change;Sacral dressing clean dry and intact NEURO: [No focal deficits] Microbiology 05/19/16 05:41 Blood Blood Culture - Final No Growth after 144 hours 05/22/16 22:51 Blood Blood Culture Gram Stain - Preliminary 05/22/16 22:51 Blood Blood Culture - Preliminary Presumptive MRSA 05/21/16 09:45 Blood Blood Culture - Preliminary No Growth after 72 hours 05/22/16 22:51 Blood Blood Culture - Preliminary 05/19/16 22:02 Blood Blood Culture Gram Stain - Final 05/19/16 22:02 Blood Blood Culture - Final Methicillin resist S. aureus 05/19/16 15:00 Urine,Catheterized Urine Culture - Final Ronda albicans 05/18/16 15:07 Buttock Gram Stain - Final 05/18/16 15:07 Buttock Wound Culture - Final Methicillin resist S. aureus Enterococcus faecium VRE 05/18/16 11:33 Blood Blood Culture Gram Stain - Final 05/18/16 11:33 Blood Blood Culture - Final Methicillin resist S. aureus Bacteroides ovatus 05/18/16 15:07 Buttock Anaerobic Culture - Final Anaerobic Gm Negative Bacilli 05/19/16 22:02 Blood Blood Culture - Preliminary 05/17/16 10:20 Blood Blood Culture Gram Stain - Final 05/17/16 10:20 Blood Blood Culture - Final Methicillin resist S. aureus 05/18/16 11:33 Blood Blood Culture - Preliminary 05/17/16 12:00 Urine,Catheterized Urine Culture - Final Ronda albicans 05/17/16 10:20 Blood Blood Culture - Preliminary - Labs CBC & Chem 7: 05/25/16 06:44 05/25/16 06:44 Labs: Abnormal Lab Results - Last 24 Hours (Table) 05/25/16 05/25/16 Range/Units 06:44 06:44 WBC 24.1 H (3.8-10.6) k/uL RBC 3.17 L (3.80-5.40) m/uL Hgb 8.4 L (11.4-16.0) gm/dL Hct 26.5 L (34.0-46.0) % Sodium 136 L (137-145) mmol/L Potassium 5.3 H (3.5-5.1) mmol/L BUN 95 H* (7-17) mg/dL Creatinine 4.81 H (0.52-1.04) mg/dL Glucose 104 H (74-99) mg/dL Microbiology - Last 24 Hours (Table) 05/19/16 05:41 Blood Culture - Final Blood No Growth after 144 hours 05/22/16 22:51 Blood Culture Gram Stain - Preliminary Blood Blood Culture - Preliminary Presumptive MRSA 05/21/16 09:45 Blood Culture - Preliminary Blood No Growth after 72 hours Assessment and Plan Plan: 1. [Severe sepsis,secondary to MRSA and bacterides ovatus bacteremia, diffuse bilateral pneumonia, acute UTI with Ronda albicans]. Repeat cultures pending. 2. [Acute renal failure multi factorial, including septic ATN, prerenal azotemia ]. Temporary dialysis catheter placed with initiation of hemodialysis. 3. [Sacral osteomyelitis, CT reports complete destruction of sacrum]. 4. [Iron deficiency anemia, of chronic disease 5. [Severe metabolic acidosis secondary to acute renal failure and uremia 6. Hyperkalemia secondary to renal failure, improving with hemodialysis 7. Tachycardia multifactorial, secondary to severe sepsis, improving 8. Gastroesophageal reflux disease 9. Multiple sclerosis, no acute exacerbation at this time 10. Mild to moderate protein calorie malnutrition Plan continue on current medication regime , sodium bicarb , protein supplements , monitoring and symptomatic treatment. As mentioned above scheduled for MELI tomorrow . Follow cultures closely with Antibiotics as per ID. Hemodialysis pending. Gen. surgery consult in place regarding sacrum destruction. Prognosis guarded given multiple complex medical issues. Further recommendations to follow. The impression and plan of care has been dictated as directed. : I performed a H&P examination of this patient and discussed the same with the dictator. I agree with the dictator's note. Any additional findings/opinions/ etc. will be noted.
[2016-05-25] MEDS: DAPTOmycin 500 MG in SODIUM CHLORIDE 0.9% 50 ML IV SCH (16:53)
[2016-05-25] MEDS: PRAVASTATIN SODIUM 80 MG TAB PO SCH (22:17)
[2016-05-25] MEDS: COLLAGENASE 250 UNIT/GM OINTMENT 30 GM TUBE TOPICAL SCH (22:17)
[2016-05-25] MEDS: RIFAMPIN 300 MG CAP PO SCH (22:17)
--- NOTE | 2016-05-25 23:51 | PN ---
DATE OF SERVICE: 05/25/2016 REASON FOR FOLLOWUP: Sacral osteomyelitis with MRSA and bacteroides bacteremia. INTERVAL HISTORY: The patient is afebrile. She has been breathing comfortably. All the blood cultures continue to come back positive. Patient denies having any significant abdominal pain; no diarrhea. On examination, blood pressure is 156/77 with a pulse of 92, temperature 98. She is 100% on room air. General description is middle-aged female lying in bed in no distress. RESPIRATORY SYSTEM: Unlabored breathing. Clear to auscultation anteriorly. HEART: S1, S2. Regular rate and rhythm. ABDOMEN: Soft. No tenderness. LABS: Hemoglobin 8.4, white count 24.1. Blood cultures from 05/24 so far negative. DIAGNOSTIC IMPRESSION AND PLAN: Patient with methicillin-resistant Staphylococcus aureus bacteremia in addition to the Bacteroides ovatus with the wound culture also showing a vancomycin-resistant Enterococcus. With the persistent bacteria, a MELI has been ordered. We are waiting for it to be finalized. Daptomycin dose has been increased to 8mg per kg q.48. Rifampin will be added. CT was reviewed with the radiologist, Dr. Monae. It shows sacral destruction but no obvious abscess that may need to be drained out. Overall prognosis remains guarded. Continue supportive care. MTDD
[2016-05-26] MEDS: GABAPENTIN 100 MG CAP PO SCH ×3 (05:54→20:07)
[2016-05-26] MEDS: RIFAMPIN 300 MG CAP PO SCH ×2 (08:01→20:08)
[2016-05-26] MEDS: FLUCONAZOLE 100 MG TAB PO SCH (08:01)
[2016-05-26] MEDS: FAMOTIDINE 20 MG TAB PO SCH (08:01)
[2016-05-26] MEDS: MENTHOL-CAMPHOR LOTION 222 APPLIC/222 ML BOTTLE TOPICAL SCH ×3 (08:02→20:11)
[2016-05-26] MEDS: SODIUM BICARBONATE TAB 650 MG TAB PO SCH ×3 (08:03→20:11)
[2016-05-26] MEDS: metroNIDAZOLE-NS PMX 500 MG in SALINE 1 100ML.BAG IVPB SCH ×2 (08:09→16:17)
[2016-05-26] MEDS: IPRATROPIUM-ALBUTEROL 3 ML NEB INHALATION SCH ×4 (08:12→20:49)
[2016-05-26] MEDS ORDERED: MIDAZOLAM 2 MG/2 ML VIAL ONE (11:28)
[2016-05-26] MEDS ORDERED: fentaNYL (PF) 50 MCG/ML 2 ML AMP ONE (11:28)
[2016-05-26] MEDS: BENZOCAINE SPRAY 100 APPLIC/CAN MUCOUS MEM ONE ×2 (12:00→12:03)
[2016-05-26] MEDS ORDERED: fentaNYL (PF) 50 MCG/ML 2 ML AMP IV ONE (12:05)
[2016-05-26] MEDS ORDERED: MIDAZOLAM 2 MG/2 ML VIAL IVP ONE (12:05)
--- NOTE | 2016-05-26 13:29 | ECHOT ---
DATE OF SERVICE: CLINICAL INFORMATION: This transesophageal echocardiogram was performed to rule out any evidence of endocarditis. Persistent has a persistent bacteremia with MRSA. PROCEDURE: Patient was given intravenous sedation with Versed and fentanyl and transesophageal echocardiogram was performed without any complications. Total sedation time was 10 minutes. FINDINGS: The left ventricular chamber is normal in size with mild to moderate degree of global hypokinesia with estimated ejection fraction of 35% to 40%. Mitral valve ( ) is normal. There is no evidence of any vegetations. Tricuspid valve is normal. Vegetations are noted. Aortic valve is mildly thickened without any evidence of vegetations. There is only mild mitral and tricuspid regurgitation noted. Interatrial septum is intact. There is no evidence of any PFO. FINAL IMPRESSION: 1. There is no definite evidence of any vegetations on mitral, aortic or tricuspid valve. 2. There is mild mitral and tricuspid regurgitation noted. 3. Left ventricular function is moderately impaired with ejection fraction of 35% to 40%. 4. Interatrial septum is intact. 5. There is no evidence of any patent foramen ovale.
[2016-05-26] MEDS: HYDROcodone/APAP 5-325MG 1 EACH TAB PO PRN ×2 (14:01→20:11)
--- NOTE | 2016-05-26 15:59 | P.PN ---
Subjective Date of service 05/26/2016. Progress note being dictated for Dr. Waters. Interval history: This a 46-year-old female admitted with sepsis, MRSA bacteremia, UTI, pneumonia, acute renal failure and multiple other medical issues in a patient with MS. Continues on on Zosyn ,daptomycin, Flagyl as per Infectious disease. Blood cultures continue to be positive for MRSA with repeat cultures of 3 5-05/25 currently negative. Awaiting MELI today. Hemodialysis yesterday. Denies chest pain, palpitations or increasing shortness of breath. Afebrile. . Objective - Vital Signs Vital signs: Vital Signs Temp 98.9 F 05/26/16 07:58 Pulse 120 H 05/26/16 08:25 Resp 18 05/26/16 07:58 BP 137/73 05/26/16 07:58 Pulse Ox 94 L 05/26/16 07:58 Intake & Output 05/25/16 05/26/16 05/26/16 18:59 06:59 18:59 Intake Total 400 Output Total 0 Balance 400 0 Weight 103 kg 105 kg Intake: Intake, IV Titration 400 Amount Sodium Chloride 0.9% 1, 400 000 ml @ 50 mls/hr IV . Q20H [facility] Rx#:[id number] Output: Urine 0 Other: Voiding Method Indwelling Catheter Indwelling Catheter - Exam PHYSICAL EXAM: VITAL SIGNS: As above GENERAL: [Sitting up in bed, no acute distress, HEENT: [Pupils equal conjunctiva normal. No conjunctival pallor, normocephalic , atraumatic.] NECK: [Supple, no JVD] RESPIRATORY EFFORT:[Mildly increased] LUNGS: [Diminished, no wheezing, crackles or rhonchi] CARDIOVASCULAR[regular S1 and S2, no murmurs rubs or gallops, positive edema] GI: [Abdomen soft, nontender, positive bowel sounds.] PSYCH: [Alert and oriented -3, mood and affect normal.] SKIN: No change;Sacral dressing clean dry and intact NEURO: [No focal deficits] Microbiology 05/19/16 05:41 Blood Blood Culture - Final No Growth after 144 hours 05/22/16 22:51 Blood Blood Culture Gram Stain - Preliminary 05/22/16 22:51 Blood Blood Culture - Preliminary Presumptive MRSA 05/21/16 09:45 Blood Blood Culture - Preliminary No Growth after 72 hours 05/22/16 22:51 Blood Blood Culture - Preliminary 05/19/16 22:02 Blood Blood Culture Gram Stain - Final 05/19/16 22:02 Blood Blood Culture - Final Methicillin resist S. aureus 05/19/16 15:00 Urine,Catheterized Urine Culture - Final Ronda albicans 05/18/16 15:07 Buttock Gram Stain - Final 05/18/16 15:07 Buttock Wound Culture - Final Methicillin resist S. aureus Enterococcus faecium VRE 05/18/16 11:33 Blood Blood Culture Gram Stain - Final 05/18/16 11:33 Blood Blood Culture - Final Methicillin resist S. aureus Bacteroides ovatus 05/18/16 15:07 Buttock Anaerobic Culture - Final Anaerobic Gm Negative Bacilli 05/19/16 22:02 Blood Blood Culture - Preliminary 05/17/16 10:20 Blood Blood Culture Gram Stain - Final 05/17/16 10:20 Blood Blood Culture - Final Methicillin resist S. aureus 05/18/16 11:33 Blood Blood Culture - Preliminary 05/17/16 12:00 Urine,Catheterized Urine Culture - Final Ronda albicans 05/17/16 10:20 Blood Blood Culture - Preliminary - Labs CBC & Chem 7: 05/25/16 06:44 05/25/16 06:44 Labs: Microbiology - Last 24 Hours (Table) 05/22/16 22:51 Blood Culture Gram Stain - Final Blood Blood Culture - Final Methicillin resist S. aureus 05/21/16 09:45 Blood Culture - Preliminary Blood No Growth after 96 hours 05/24/16 14:03 Blood Culture - Preliminary Blood No Growth after 24 hours 05/19/16 05:41 Blood Culture - Final Blood No Growth after 144 hours Assessment and Plan Plan: 1. [Severe sepsis,secondary to MRSA and bacterides ovatus bacteremia, diffuse bilateral pneumonia, acute UTI with Ronda albicans]. Repeat cultures pending. MELI pending. 2. [Acute renal failure multi factorial, including septic ATN, prerenal azotemia ]. Temporary dialysis catheter placed with initiation of hemodialysis. 3. [Sacral osteomyelitis, CT reports complete destruction of sacrum]. 4. [Iron deficiency anemia, of chronic disease 5. [Severe metabolic acidosis secondary to acute renal failure and uremia 6. Hyperkalemia secondary to renal failure, improving with hemodialysis 7. Tachycardia multifactorial, secondary to severe sepsis, improving 8. Gastroesophageal reflux disease 9. Multiple sclerosis, no acute exacerbation at this time 10. Mild to moderate protein calorie malnutrition Plan continue on current medication regime , sodium bicarb, protein supplements , monitoring and symptomatic treatment. MELI pending . Follow cultures closely with Antibiotics as per ID. Prognosis guarded given multiple complex medical issues. Further recommendations to follow. The impression and plan of care has been dictated as directed. : I performed a H&P examination of this patient and discussed the same with the dictator. I agree with the dictator's note. Any additional findings/opinions/ etc. will be noted.
[2016-05-26] MEDS: AMOXICILLIN 500 MG CAP PO SCH (20:06)
[2016-05-26] MEDS: COLLAGENASE 250 UNIT/GM OINTMENT 30 GM TUBE TOPICAL SCH (20:07)
[2016-05-26] MEDS: MULTIVITAMINS, THERA 1 EACH TAB PO SCH (20:08)
[2016-05-26] MEDS: PRAVASTATIN SODIUM 80 MG TAB PO SCH (20:08)
[2016-05-26] MEDS: SODIUM CHLORIDE 0.9% 1,000 ML IV SCH (20:09)
[2016-05-27] MEDS: metroNIDAZOLE-NS PMX 500 MG in SALINE 1 100ML.BAG IVPB SCH ×3 (00:04→16:48)
[2016-05-27] MEDS: AMOXICILLIN 500 MG CAP PO SCH (06:07)
[2016-05-27] MEDS: GABAPENTIN 100 MG CAP PO SCH ×3 (06:07→22:57)
[2016-05-27] MEDS: POTASSIUM CHLORIDE ER 10 MEQ TAB.ER.PRT PO SCH ×2 (06:07→06:39)
[2016-05-27] MEDS: FUROSEMIDE 20 MG TAB PO SCH (06:07)
--- NOTE | 2016-05-27 07:43 | PN ---
DATE OF SERVICE: 05/26/2016 Reason for follow-up MRSA bacteremia, source sacral osteomyelitis. INTERVAL HISTORY: The patient is afebrile. She has been breathing comfortably. The patient did have a MELI done today that was negative for any evidence of vegetation. The patient denies significant chest pain, shortness of breath, cough and no apparent or any diarrhea. On examination, blood pressure is 144/81 with a pulse of 105, temperature 98, she is 98% on room air. General description is a middle-age female lying in bed in no distress. RESPIRATORY SYSTEM: Unlabored breathing. Clear auscultation anteriorly. HEART: S1, S2. Regular rate and rhythm. ABDOMEN: Soft, no tenderness. LABS: No new labs have been obtained today. Blood cultures from 05/24 and 05/25 are negative. DIAGNOSTIC IMPRESSION AND PLAN: Patient with an MRSA bacteremia, source is sacral osteomyelitis with blood cultures that was also positive for Bacteroides. Repeat blood culture negative for Bacteroides. Local wound culture positive for VRE as well. The patient's follow-up blood cultures from 05/24 are negative so far. MELI was negative for any vegetation. Will be recommending keeping the patient on daptomycin at current dose of 800 mg after every dialysis for the next 6 to 8 weeks along with oral Flagyl 500 every eight hours. Local wound care with Santyl until the patient is evaluated in the outpatient setting. Continue supportive care.
[2016-05-27] MEDS: PANTOPRAZOLE 40 MG TABLET PO SCH (07:50)
[2016-05-27] MEDS: FAMOTIDINE 20 MG TAB PO SCH (07:50)
[2016-05-27] MEDS: RIFAMPIN 300 MG CAP PO SCH ×2 (07:50→22:58)
[2016-05-27] MEDS: FLUCONAZOLE 100 MG TAB PO SCH (07:50)
[2016-05-27] MEDS: HYDROcodone/APAP 5-325MG 1 EACH TAB PO PRN (07:50)
[2016-05-27] MEDS: SODIUM BICARBONATE TAB 650 MG TAB PO SCH ×3 (07:50→22:57)
[2016-05-27] MEDS: IPRATROPIUM-ALBUTEROL 3 ML NEB INHALATION SCH ×4 (08:19→20:34)
--- NOTE | 2016-05-27 09:57 | PCN ---
DATE OF PROCEDURE: PROCEDURE: 1. Placement of right IJ catheter. 2. Removal of dialysis catheter, right femoral approach. PROCEDURE: This patient has history of chronic renal failure. Patient had a right femoral catheter placed in the past which is not working. Patient needed dialysis. Patient was taken to the [facility]. Right side of the neck and chest was prepped and draped in usual sterile manner; 1% lidocaine infiltrated. Ultrasound-guided needle was introduced in right internal jugular vein. Micropuncture guidewire passed and 4 Kyr[place]z dilator branch on the top of the guidewire. Of that, we ( ). Through the tunnel, we brought 28 cm dialysis catheter. Sheath was advanced on top of the guidewire. Through the sheath, we introduced the dialysis catheter. Sheath was removed. Tip of the catheter was in superior vena cava and atrium, flushed with heparin, saline and hep-locked and secured with Vicryl and nylon. After that, attention was paid to the right groin. Right groin was prepped and draped in sterile manner; 1% lidocaine infiltrated. Patient had a dialysis catheter, stitches was removed and catheter was removed. Pressure was held. Patient tolerated the procedure well.
[2016-05-27] MEDS: MENTHOL-CAMPHOR LOTION 222 APPLIC/222 ML BOTTLE TOPICAL SCH ×3 (13:52→23:30)
--- NOTE | 2016-05-27 15:21 | PN ---
Patient is seen for followup for acute kidney injury, currently dialysis-dependent. Patient remains oliguric with hardly any urine output. She is maintained on hemodialysis on a Wednesday, Wednesday, Wednesday schedule. Prior creatinine was 0.6 on 03/19/2016. Patient will be dialyzed today. She has had persistent MRSA bacteremia; however, this seems to have improved with repeat blood cultures on 05/24 and 05/25/2016 being negative. Her femoral Bhavin catheter was removed and an IJ cath was inserted. IMPRESSION: 1. Patient is a candidate for kidney biopsy, which can be performed as outpatient, most likely the etiology is ATN, secondary to severe sepsis. 2. Volume overload, will try to for 3 to 4 L today with hemodialysis. 3. Methicillin-resistant Staphylococcus aureus bacteremia from sacral osteomyelitis with possible seeding of the temporary right femoral catheter, which is now removed. 4. Mild hyperkalemia. Expect improvement with dialysis. 5. Multiple sclerosis, fairly stable. PLAN: Follow up on results of MELI, increase UF with hemodialysis today. Consider kidney biopsy, which can be done as outpatient.
[2016-05-27] MEDS: ACETAMINOPHEN TAB 325 MG TAB PO PRN (16:48)
--- NOTE | 2016-05-27 16:48 | P.PN ---
Subjective Date of service 05/27/2016. Progress note being dictated for Dr. Waters. Interval history: This a 46-year-old female admitted with sepsis, MRSA bacteremia from sacral osteomyelitis, UTI, pneumonia, acute renal failure, and multiple other medical issues in a patient with MS. Continues on on Zosyn , daptomycin, Flagyl as per Infectious disease. MELI negative for vegetation. Hemodialysis today. Scheduled for PICC line placement. Denies chest pain, palpitations or increasing shortness of breath. Afebrile. . Objective - Vital Signs Vital signs: Vital Signs Temp 101.0 F H 05/27/16 15:41 Pulse 116 H 05/27/16 15:41 Resp 18 05/27/16 15:41 BP 152/88 05/27/16 15:41 Pulse Ox 97 05/27/16 15:41 Intake & Output 05/26/16 05/27/16 05/27/16 18:59 06:59 18:59 Intake Total 100 Output Total 20 65 Balance -20 -65 100 Weight 100.5 kg Intake: Oral 100 Output: Urine 20 65 Uretheral (Chaves) 20 30 Other: Voiding Method Indwelling Catheter Indwelling Catheter Indwelling Catheter # Bowel Movements 1 - Exam PHYSICAL EXAM: VITAL SIGNS: As above GENERAL: [Sitting up in bed, no acute distress, HEENT: [Pupils equal conjunctiva normal. No conjunctival pallor, normocephalic , atraumatic.] NECK: [Supple, no JVD] RESPIRATORY EFFORT:[Mildly increased] LUNGS: [Diminished, no wheezing, crackles or rhonchi] CARDIOVASCULAR[regular S1 and S2, no murmurs rubs or gallops, positive edema] GI: [Abdomen soft, nontender, positive bowel sounds.] PSYCH: [Alert and oriented -3, mood and affect normal.] SKIN: No change;Sacral dressing clean dry and intact NEURO: [No focal deficits] Microbiology 05/24/16 14:03 Blood Blood Culture - Preliminary No Growth after 72 hours 05/25/16 06:44 Blood Blood Culture - Preliminary No Growth after 48 hours 05/21/16 09:45 Blood Blood Culture - Preliminary No Growth after 120 hours 05/22/16 22:51 Blood Blood Culture Gram Stain - Final 05/22/16 22:51 Blood Blood Culture - Final Methicillin resist S. aureus 05/19/16 05:41 Blood Blood Culture - Final No Growth after 144 hours 05/22/16 22:51 Blood Blood Culture - Preliminary 05/19/16 22:02 Blood Blood Culture Gram Stain - Final 05/19/16 22:02 Blood Blood Culture - Final Methicillin resist S. aureus 05/19/16 15:00 Urine,Catheterized Urine Culture - Final Ronda albicans 05/18/16 15:07 Buttock Gram Stain - Final 05/18/16 15:07 Buttock Wound Culture - Final Methicillin resist S. aureus Enterococcus faecium VRE 05/18/16 11:33 Blood Blood Culture Gram Stain - Final 05/18/16 11:33 Blood Blood Culture - Final Methicillin resist S. aureus Bacteroides ovatus 05/18/16 15:07 Buttock Anaerobic Culture - Final Anaerobic Gm Negative Bacilli 05/19/16 22:02 Blood Blood Culture - Preliminary 05/17/16 10:20 Blood Blood Culture Gram Stain - Final 05/17/16 10:20 Blood Blood Culture - Final Methicillin resist S. aureus 05/18/16 11:33 Blood Blood Culture - Preliminary 05/17/16 12:00 Urine,Catheterized Urine Culture - Final Ronda albicans 05/17/16 10:20 Blood Blood Culture - Preliminary - Labs CBC & Chem 7: 05/25/16 06:44 05/25/16 06:44 Labs: Microbiology - Last 24 Hours (Table) 05/24/16 14:03 Blood Culture - Preliminary Blood No Growth after 72 hours 05/25/16 06:44 Blood Culture - Preliminary Blood No Growth after 48 hours 05/21/16 09:45 Blood Culture - Preliminary Blood No Growth after 120 hours Assessment and Plan Plan: 1. [Severe sepsis,secondary to MRSA and bacterides ovatus bacteremia, diffuse bilateral pneumonia, acute UTI with Ronda albicans]. Repeat cultures of 05/24 and 05/25 remain negative. Status post MELI negative for any vegetation. 2. [Acute renal failure multi factorial, including septic ATN, prerenal azotemia ]. Temporary dialysis catheter placed with initiation of hemodialysis. 3. [Sacral osteomyelitis, CT reports complete destruction of sacrum, wound culture positive for VRE]. 4. [Iron deficiency anemia, of chronic disease 5. [Severe metabolic acidosis secondary to acute renal failure and uremia 6. Hyperkalemia secondary to renal failure, improving with hemodialysis 7. Tachycardia multifactorial, secondary to severe sepsis, improving 8. Gastroesophageal reflux disease 9. Multiple sclerosis, no acute exacerbation at this time 10. Mild to moderate protein calorie malnutrition Plan continue on current medication regime , sodium bicarb, protein supplements , monitoring and symptomatic treatment. PICC line placement today with DC Antibiotics as per ID. Discharge planning in progress for tomorrow to [facility]. The impression and plan of care has been dictated as directed. : I performed a H&P examination of this patient and discussed the same with the dictator. I agree with the dictator's note. Any additional findings/opinions/ etc. will be noted.
[2016-05-27] MEDS: SODIUM CHLORIDE 0.9% 1,000 ML IV SCH (19:04)
[2016-05-27 22:37] LABS: Basophils # (A) 0.1 k/uL (0-0.2); Basophils % (A) 0 %; CH 26.7; CHCM 31.2; Eosinophils # (A) 0.1 k/uL (0-0.7); Eosinophils % (A) 0 %; HCT 33.1 % (34.0-46.0); HDW 2.33; HGB 10.3 gm/dL (11.4-16.0); Hypochromasia Slight; Luc # (Auto) 0.53; Luc % (Auto) 3; Lymphocytes # (A) 1.2 k/uL (1.0-4.8); Lymphocytes % (A) 6 %; MCH 26.8 pg (25.0-35.0); MCHC 31.2 g/dL (31.0-37.0); MCV 85.8 fL (80.0-100.0); Mean Platelet Volume 7.7; Monocytes # (A) 0.7 k/uL (0-1.0); Monocytes % (A) 3 %; Neutrophils # (A) 18.9 k/uL (1.3-7.7); Neutrophils % (A) 88 %; RBC 3.86 m/uL (3.80-5.40); RDW 15.3 % (11.5-15.5); WBC 21.5 k/uL (3.8-10.6); WBC (Perox) 22.02
[2016-05-27 22:51] LABS: Calcium 8.6 mg/dL (8.4-10.2); Potassium 4.3 mmol/L (3.5-5.1)
[2016-05-27] MEDS: MULTIVITAMINS, THERA 1 EACH TAB PO SCH (22:57)
[2016-05-27] MEDS: PRAVASTATIN SODIUM 80 MG TAB PO SCH (22:58)
[2016-05-27] MEDS: COLLAGENASE 250 UNIT/GM OINTMENT 30 GM TUBE TOPICAL SCH (23:31)
[2016-05-28] MEDS: metroNIDAZOLE-NS PMX 500 MG in SALINE 1 100ML.BAG IVPB SCH ×4 (02:19→23:34)
--- NOTE | 2016-05-28 05:19 | PN ---
DATE OF SERVICE: 05/27/2016 Reason for followup is MRSA and bacteroides sacral osteomyelitis with MRSA bacteremia. INTERVAL HISTORY: The patient is afebrile. She has been breathing comfortably. Denies significant chest pain, shortness of breath or cough. No abdominal pain or diarrhea. On examination, blood pressure is 145/81 with a pulse of 109, temperature 97.3. She is 99% on room air. General description is a middle-age female lying in bed in no distress. RESPIRATORY SYSTEM: Unlabored breathing. Clear to auscultation anteriorly. HEART: S1, S2. Regular rate and rhythm. ABDOMEN: Soft, no tenderness. LABS: No new labs have been obtained today. Blood cultures on 05/24 and 05/25 have been negative so far. DIAGNOSTIC IMPRESSION AND PLAN: Patient with methicillin-resistant Staphylococcus aureus bacteremia, source is sacral osteomyelitis with also bacteroides bacteremia and the wound culture shows a vancomycin-resistant enterococcus. Patient has been on daptomycin currently at 8 mg/kg q.48 in view of renal failure to be done after dialysis along with oral Flagyl. duration of antibiotic should be at least 6 to 8 weeks. Local wound care with the Santyl. Keep the area off the pressure. Continue supportive care. MTDD
[2016-05-28] MEDS: POTASSIUM CHLORIDE ER 10 MEQ TAB.ER.PRT PO SCH (06:14)
[2016-05-28] MEDS: GABAPENTIN 100 MG CAP PO SCH ×3 (06:14→21:46)
[2016-05-28] MEDS: FUROSEMIDE 20 MG TAB PO SCH (06:14)
[2016-05-28] MEDS: IPRATROPIUM-ALBUTEROL 3 ML NEB INHALATION SCH ×4 (08:42→20:50)
[2016-05-28] MEDS: FLUCONAZOLE 100 MG TAB PO SCH (09:45)
[2016-05-28] MEDS: PANTOPRAZOLE 40 MG TABLET PO SCH (09:45)
[2016-05-28] MEDS: SODIUM BICARBONATE TAB 650 MG TAB PO SCH ×3 (09:46→21:46)
[2016-05-28] MEDS: RIFAMPIN 300 MG CAP PO SCH ×2 (09:46→21:46)
[2016-05-28] MEDS: MENTHOL-CAMPHOR LOTION 222 APPLIC/222 ML BOTTLE TOPICAL SCH ×3 (09:47→21:47)
[2016-05-28] MEDS: HYDROcodone/APAP 5-325MG 1 EACH TAB PO PRN ×2 (09:54→18:10)
[2016-05-28] MEDS: SODIUM CHLORIDE 0.9% 1,000 ML IV SCH ×2 (12:08→23:35)
--- NOTE | 2016-05-28 14:07 | P.PN ---
Subjective Patient is seen in follow-up for acute kidney injury. Her baseline creatinine is near 0.6 and developed hemodialysis dependent acute kidney injury from sepsis this admission. She is oliguric. Patient presented with hypotension and was subsequently diagnosed with pneumonia. She also has sacral osteomyelitis for which she is currently maintained on antibiotics. Her blood cultures are positive for MRSA and Bacteroides. Patient denies any chest pain or shortness of breath. Her appetite is fair. She received a permacath on May 23. Femoral catheter has been discontinued. She did spike a temperature last night. Vital signs are stable. General: The patient appeared well nourished and normally developed. HEENT: Head exam is unremarkable. Neck is without jugular venous distension. LUNGS: Lungs are clear to auscultation and percussion. Breath sounds decreased. HEART: Rate and Rhythm are regular. First and second heart sounds normal. No murmurs, rubs or gallops. ABDOMEN: Abdominal exam reveals normal bowel sounds. Non-tender and non- distended. No evidence of peritonitis. EXTREMITITES: 2+ edema. Objective - Vital Signs Vital signs: Vital Signs Temp 98.0 F 05/28/16 12:35 Pulse 102 H 05/28/16 13:28 Resp 18 05/28/16 12:35 BP 129/73 05/28/16 12:35 Pulse Ox 98 05/28/16 12:35 Intake & Output 05/27/16 05/28/16 05/28/16 18:59 06:59 18:59 Intake Total 1360 200 Output Total 50 0 Balance 1360 150 0 Weight 98.5 kg 98.5 kg Intake: Intake, IV Titration 800 200 Amount DAPTOmycin 800 mg In 50 Sodium Chloride 0.9% 50 ml @ 100 mls/hr IV Q48H [facility] Rx#:[id number] Sodium Chloride 0.9% 1, 600 150 000 ml @ 50 mls/hr IV . Q20H [facility] Rx#:[id number] metroNIDAZOLE-NS PMX 500 200 mg In Saline 1 100ml.bag @ 100 mls/hr IVPB Q8HR [facility] Rx#:[id number] Oral 560 Output: Urine 50 0 Other: Voiding Method Indwelling Catheter Indwelling Catheter Indwelling Catheter # Bowel Movements 1 1 - Labs CBC & Chem 7: 05/27/16 22:14 05/27/16 22:14 Labs: Abnormal Lab Results - Last 24 Hours (Table) 05/27/16 05/27/16 Range/Units 22:14 22:14 WBC 21.5 H (3.8-10.6) k/uL Hgb 10.3 L (11.4-16.0) gm/dL Hct 33.1 L (34.0-46.0) % Plt Count 792 H (150-450) k/uL Neutrophils # 18.9 H (1.3-7.7) k/uL BUN 46 H (7-17) mg/dL Creatinine 2.98 H (0.52-1.04) mg/dL Glucose 114 H (74-99) mg/dL Microbiology - Last 24 Hours (Table) 05/25/16 06:44 Blood Culture - Preliminary Blood No Growth after 72 hours 05/21/16 09:45 Blood Culture - Final Blood No Growth after 144 hours 05/24/16 14:03 Blood Culture - Preliminary Blood No Growth after 72 hours Assessment and Plan Plan: Assessment: #1. Acute kidney injury secondary to septic ATN. Now hemodialysis dependent on a Wednesday schedule. Urine eosinophils negative. Baseline creatinine 0.6. #2. Severe sepsis secondary to pneumonia and bacteremia. #3. MRSA and Bacteroides bacteremia. #4. Metabolic acidosis secondary to acute kidney injury. Resolved. #5. Hyperkalemia secondary to metabolic acidosis and acute kidney injury. Plan: Her femoral catheter was malfunctioning and underwent IJ catheter on May 23. Hemodialysis tomorrow with goal 4 L ultrafiltration. Maintain Aranesp. Antibiotics per infectious disease recommendations. Continue to monitor renal function and urine output closely. Will consider kidney biopsy as an outpatient.
--- NOTE | 2016-05-28 19:54 | PN ---
The patient is a 46-year-old with history of multiple sclerosis bedbound. Patient has history of sacral osteomyelitis, came in with severe sepsis and bacteremia, source is either UTI or wounds or both. Patient has bacteremia with MRSA and transesophageal echocardiogram negative for any vegetations and patient also had a bacteremia with Bacteroides fragilis. Patient is presently on daptomycin, Flagyl and rifampin. Patient bacteremia persisted for some time. At this point of time, the patient's last blood cultures from the third are negative. After third are negative, from fifth are negative and patient is ready to be discharged, the patient really needs to receive daptomycin with hemodialysis which can be done only starting on Wednesday. Patient was initiated on hemodialysis here. Patient ended up having kidney dysfunction secondary to acute tubular necrosis and patient is in a significant amount of pain because of positioning today. Otherwise, patient is clinically doing well. REVIEW OF SYSTEMS: CARDIOVASCULAR: No chest pain, no orthopnea, no PND, no palpitations. PULMONARY: Denied any shortness of breath. No cough or hemoptysis. GASTROINTESTINAL: No diarrhea, nausea or vomiting. No abdominal pain. Normoactive bowel sounds. NEUROLOGIC: No headaches, no weakness, no numbness. Medications were reviewed. PHYSICAL EXAMINATION: VITAL SIGNS: Temperature 98.0. Pulse 104, respiratory rate 18. Blood pressure 129/73. Saturating at 98% on room air. GENERAL: Patient is in significant distress because of pain. We have to reposition her at this time. Alert and oriented x3. HEENT: Pupils are round and equally reacting to light. EOMI. No scleral icterus. No conjunctival pallor. Normocephalic, atraumatic. No pharyngeal erythema. No thyromegaly. CARDIOVASCULAR: S1 and S2 present. No murmurs, rubs, or gallops. PULMONARY: Chest is clear to auscultation, no wheezing or crackles. ABDOMEN: Soft, nontender, nondistended, normoactive bowel sounds. No palpable organomegaly. MUSCULOSKELETAL: No joint swelling or deformity. EXTREMITIES: No cyanosis, clubbing, or pedal edema. NEUROLOGICAL: No new focal neurological deficits were appreciated. Wounds: No significant change. LABORATORY DATA: WBC Count came down to 21,000 and BUN is 46, creatinine is 2.98. ASSESSMENT AND PLAN: 1. Severe sepsis and bacteremia secondary to urinary tract infection with Bacteroides ( ) Methicillin-resistant Staph aureus, possible source is being wounds and urinary tract infection, negative for any vegetation on MELI. 2. Acute renal failure secondary to acute tubular necrosis along with prerenal azotemia. 3. Sacral osteomyelitis. 4. Multiple decubitus ulcers, big decubitus ulcer for which patient needs a local wound care and wound V.A.C. 5. Iron deficiency anemia. 6. Severe metabolic acidosis. 7. Tachycardia, which improved secondary to sepsis. 8. Multiple sclerosis, mild to moderate protein calorie malnutrition. PLAN: Continue with antibiotics. Continue with hemodialysis. Possibility of discharge on Wednesday to subacute rehabilitation.
[2016-05-28] MEDS: PRAVASTATIN SODIUM 80 MG TAB PO SCH (21:46)
[2016-05-28] MEDS: MULTIVITAMINS, THERA 1 EACH TAB PO SCH (21:46)
[2016-05-28] MEDS: COLLAGENASE 250 UNIT/GM OINTMENT 30 GM TUBE TOPICAL SCH (21:46)
[2016-05-29] MEDS: FUROSEMIDE 20 MG TAB PO SCH (06:05)
[2016-05-29] MEDS: POTASSIUM CHLORIDE ER 10 MEQ TAB.ER.PRT PO SCH (06:05)
[2016-05-29] MEDS: GABAPENTIN 100 MG CAP PO SCH ×3 (06:05→20:51)
[2016-05-29 07:20] LABS: CH 26.4; CHCM 30.5; HCT 28.5 % (34.0-46.0); HDW 2.33; Hypochromasia Slight; MCH 25.8 pg (25.0-35.0); MCHC 29.8 g/dL (31.0-37.0); MCV 86.7 fL (80.0-100.0); Mean Platelet Volume 7.7; RBC 3.29 m/uL (3.80-5.40); RDW 14.9 % (11.5-15.5); WBC 12.6 k/uL (3.8-10.6)
--- NOTE | 2016-05-29 07:24 | PN ---
DATE OF SERVICE: 05/28/2016 Reason for follow up is methicillin-resistant Staphylococcus aureus bacteremia secondary to sacral osteomyelitis. INTERVAL HISTORY: The patient did have a fever last night that was after dialysis. No fever has been recorded since then. She did have repeat blood cultures obtained last night. Patient noticed to be slightly lethargic this morning with an overall poor oral intake but denies having any chest pain. No shortness of breath or cough. On examination, blood pressure 129/73 with a pulse of 105, temperature 98. She is 98% on room air. General description is a middle-age female lying in bed in no distress. RESPIRATORY SYSTEM: Unlabored breathing. Clear to auscultation anteriorly. HEART: S1, S2. Regular rate and rhythm. ABDOMEN: Soft, no tenderness. LABS: Hemoglobin is 10.1, white count is 21.5, bun 46, creatinine 2.98. DIAGNOSTIC IMPRESSION AND PLAN: Patient with Methicillin-resistant Staphylococcus aureus and Bacteroides bacteremia; source is sacral osteomyelitis in a patient who did have evidence of renal failure requiring hemodialysis. Patient for persistent bacteremia did have a MELI that was negative for any endocarditis and a CT of the sacral area did not show any evidence of an abscess collection. The patient is currently on daptomycin high dose in addition to the Flagyl. Recommend to continue the antibiotics for at least 6 to 8 more weeks along with the Santyl to the wound. If the patient spikes any further fever especially after dialysis that PermCath has to come out as ( ) the patient is still bacteremic and overall prognosis remains to be guarded.
[2016-05-29 07:28] LABS: HGB 8.5 gm/dL (11.4-16.0)
[2016-05-29] MEDS: IPRATROPIUM-ALBUTEROL 3 ML NEB INHALATION SCH ×4 (07:41→19:41)
--- NOTE | 2016-05-29 09:04 | P.PN ---
Subjective Patient is seen in follow-up for acute kidney injury. Her baseline creatinine is near 0.6 and developed hemodialysis dependent acute kidney injury from sepsis this admission. She is oliguric. Patient presented with hypotension and was subsequently diagnosed with pneumonia. She also has sacral osteomyelitis for which she is currently maintained on antibiotics. Her blood cultures are positive for MRSA and Bacteroides. Patient denies any chest pain or shortness of breath. Her appetite is poor. She received a permacath on May 23. Femoral catheter has been discontinued. Currently undergoing hemodialysis. Vital signs are stable. General: The patient appeared well nourished and normally developed. HEENT: Head exam is unremarkable. Neck is without jugular venous distension. LUNGS: Lungs are clear to auscultation and percussion. Breath sounds decreased. HEART: Rate and Rhythm are regular. First and second heart sounds normal. No murmurs, rubs or gallops. ABDOMEN: Abdominal exam reveals normal bowel sounds. Non-tender and non- distended. No evidence of peritonitis. EXTREMITITES: 2+ edema. Objective - Vital Signs Vital signs: Vital Signs Temp 99.6 F 05/29/16 00:00 Pulse 88 05/29/16 07:52 Resp 18 05/29/16 04:00 BP 141/88 05/29/16 04:00 Pulse Ox 99 05/29/16 04:00 Intake & Output 05/28/16 05/29/16 05/29/16 18:59 06:59 18:59 Intake Total 237 350 Output Total 0 50 Balance 237 300 Weight 98.5 kg 98.5 kg Intake: IV 350 Sodium Chloride 0.9% 1, 350 000 ml @ 50 mls/hr IV . Q20H [facility] Rx#:[id number] Oral 237 Output: Urine 0 50 Uretheral (Chaves) 50 Other: Voiding Method Indwelling Catheter Indwelling Catheter # Voids 0 # Bowel Movements 1 1 - Labs CBC & Chem 7: 05/29/16 06:20 05/27/16 22:14 Labs: Abnormal Lab Results - Last 24 Hours (Table) 05/29/16 Range/Units 06:20 WBC 12.6 H (3.8-10.6) k/uL RBC 3.29 L (3.80-5.40) m/uL Hgb 8.5 L D (11.4-16.0) gm/dL Hct 28.5 L (34.0-46.0) % MCHC 29.8 L (31.0-37.0) g/dL Plt Count 758 H (150-450) k/uL Microbiology - Last 24 Hours (Table) 05/25/16 06:44 Blood Culture - Preliminary Blood No Growth after 96 hours 05/27/16 22:14 Blood Culture - Preliminary Blood No Growth after 24 hours 05/24/16 14:03 Blood Culture - Preliminary Blood No Growth after 96 hours Assessment and Plan Plan: Assessment: #1. Oliguric acute kidney injury secondary to septic ATN. Now hemodialysis dependent on a Wednesday schedule. Urine eosinophils negative. Baseline creatinine 0.6. #2. Severe sepsis secondary to pneumonia and bacteremia. #3. MRSA and Bacteroides bacteremia. #4. Metabolic acidosis secondary to acute kidney injury. Resolved. #5. Hyperkalemia secondary to metabolic acidosis and acute kidney injury. #6. Anemia. Rule out iron deficiency. Plan: Her femoral catheter was malfunctioning and underwent IJ catheter on May 23. Currently undergoing hemodialysis with goal 4 L ultrafiltration. Maintain Aranesp. Check iron studies. Antibiotics per infectious disease recommendations. Continue to monitor renal function and urine output closely. Will consider kidney biopsy as an outpatient.
[2016-05-29] MEDS: metroNIDAZOLE-NS PMX 500 MG in SALINE 1 100ML.BAG IVPB SCH ×3 (10:38→23:59)
[2016-05-29] MEDS: FLUCONAZOLE 100 MG TAB PO SCH (10:39)
[2016-05-29] MEDS: PANTOPRAZOLE 40 MG TABLET PO SCH (10:40)
[2016-05-29] MEDS: RIFAMPIN 300 MG CAP PO SCH ×2 (10:41→20:51)
[2016-05-29] MEDS: MENTHOL-CAMPHOR LOTION 222 APPLIC/222 ML BOTTLE TOPICAL SCH ×3 (10:41→20:53)
[2016-05-29] MEDS: SODIUM BICARBONATE TAB 650 MG TAB PO SCH ×3 (10:41→20:52)
[2016-05-29] MEDS ORDERED: HEPARIN SODIUM,PORCINE 5,000 UNIT/ML 1 ML VIAL ONE (12:30)
[2016-05-29 12:34] LABS: Potassium 5.1 mmol/L (3.5-5.1)
--- NOTE | 2016-05-29 15:18 | DS ---
DATE OF ADMISSION: 05/17/2016 DATE OF DISCHARGE: FINAL DIAGNOSES: 1. Severe sepsis and bacteremia secondary to urinary tract infection with bacteroides, methicillin-resistant Staphylococcus aureus. 2. Negative vegetation on transesophageal echocardiogram. 3. Acute renal failure secondary to acute tubular necrosis along with prerenal azotemia. 4. Sacral osteomyelitis. 5. Multiple decubitus ulcers. Needs local wound care and wound V.A.C. 6. Iron deficiency anemia. 7. Severe metabolic acidosis. 8. Tachycardia secondary to sepsis. 9. Multiple sclerosis. 10. Mild to moderate protein-calorie malnutrition. 11. Gait dysfunction. 12. FULL CODE. DISCHARGE DISPOSITION: Patient will be discharged in stable condition with guarded prognosis. HISTORY OF PRESENT ILLNESS: This 46-year-old woman with a past medical history of multiple medical problems, as mentioned earlier, was in [facility]. The patient was admitted with severe sepsis, bacteremia. Patient was treated with IV antibiotics. Patient improved significantly. Currently on exam, vitals are stable. CARDIOVASCULAR SYSTEM: S1, S2 muffled. ABDOMEN: Soft. NERVOUS SYSTEM: No focal deficit. Labs show WBC 12.6. Hemoglobin is 8.5. Creatinine is 4.10. C difficile is negative. Patient will be discharged in stable condition with guarded prognosis with the following advice and medications: 1. Diet is cardiac. 2. Activity limited until followup. 3. Follow up with Dr. Mojica in [facility] in 1 to 2 days. 4. CBC, BMP. 5. Follow up with Nephrology as recommended. 6. Continue with hemodialysis per Nephrology. 7. Tylenol 650 q.6 p.r.n. 8. Amino acids, protein 30 mL b.i.d. 9. Lioresal 10 mg p.o. daily. 10. Dulcolax 10 mg daily p.r.n. 11. Santyl local application. 12. Wound care per Infectious Disease. 13. Antibiotics and Diflucan per Infectious Disease. 14. Cubicin 800 mg IV q.48 hours per ID. 15. Aranesp 40 mcg subcutaneously q.[address] Aldridge. 16. Tecfidera 240 mg p.o. b.i.d. 17. Diflucan 100 mg p.o. daily per ID. 18. Lasix 20 mg p.o. daily. 19. Neurontin 100 mg p.o. t.i.d. 20. [place] 5 mg q.6 p.r.n. 21. Albuterol Atrovent updrafts q.i.d. and p.r.n. 22. Biofreeze for local application. 23. Multivitamins 1 p.o. daily. 24. Prilosec 20 mg p.o. daily. 25. Melania Ciel 8 mEq p.o. daily. 26. Pravachol 80 mg at bedtime. 27. Rifampin 300 mg p.o. b.i.d. per ID. 28. Sodium bicarb 650 p.o. t.i.d. Once again, the patient will be discharged in stable condition with guarded prognosis.
[2016-05-29] MEDS: DARBEPOETIN ALFA 40 MCG/0.4 ML SYRINGE SQ SCH (18:41)
--- NOTE | 2016-05-29 20:14 | PN ---
DATE OF SERVICE: 05/29/2016 REASON FOR FOLLOWUP: Sacral osteomyelitis with MRSA, VRE and bacteroides species. INTERVAL HISTORY: The patient is afebrile. She seems to be slightly lethargic. Patient did get her dialysis this morning. Patient denies any chest pain or cough. No abdominal pain or any diarrhea. On examination, blood pressure is 144/92 with a pulse of 80, temperature 98.7. She is 96% on room air. General description is a middle-aged female lying in bed in no distress. RESPIRATORY SYSTEM: Unlabored breathing. Some coarse breath sounds at the base. No wheeze. HEART: S1, S2. Regular rate and rhythm. ABDOMEN: Soft. No tenderness. LABS: Hemoglobin 8.5, white count down to 12.6. BUN of 60, creatinine 4.10. Blood cultures from May 22, , and are negative. DIAGNOSTIC IMPRESSION AND PLAN: Patient with an methicillin-resistant Staphylococcus aureus bacteremia in addition to the Bacteroides ovatus bacteremia secondary to the sacral osteomyelitis. Follow-up blood culture has been negative. Plan at this time will be to continue the patient on daptomycin 800 mg after each dialysis for at least 6 to 8 weeks in addition to the oral Flagyl 500 mg 3 times a day for the same duration. Local wound care with Santyl. The patient should not be on any statins while she is getting daptomycin; hence it was discontinued. She will follow up in the office next week. Will continue close outpatient followup. Continue supportive care.
[2016-05-29] MEDS: PRAVASTATIN SODIUM 80 MG TAB PO SCH (20:51)
[2016-05-29] MEDS: MULTIVITAMINS, THERA 1 EACH TAB PO SCH (20:51)
[2016-05-29] MEDS: COLLAGENASE 250 UNIT/GM OINTMENT 30 GM TUBE TOPICAL SCH (20:54)
[2016-05-29] MEDS: ACETAMINOPHEN TAB 325 MG TAB PO PRN (23:20)
[2016-05-30] MEDS: SODIUM CHLORIDE 0.9% 1,000 ML IV SCH (06:17)
[2016-05-30] MEDS: FUROSEMIDE 20 MG TAB PO SCH (06:19)
[2016-05-30] MEDS: GABAPENTIN 100 MG CAP PO SCH ×3 (06:19→20:01)
[2016-05-30] MEDS: POTASSIUM CHLORIDE ER 10 MEQ TAB.ER.PRT PO SCH (06:20)
[2016-05-30] MEDS: RIFAMPIN 300 MG CAP PO SCH ×2 (08:01→20:01)
[2016-05-30] MEDS: FLUCONAZOLE 100 MG TAB PO SCH (08:01)
[2016-05-30] MEDS: PANTOPRAZOLE 40 MG TABLET PO SCH (08:01)
[2016-05-30] MEDS: SODIUM BICARBONATE TAB 650 MG TAB PO SCH ×3 (08:01→20:02)
[2016-05-30] MEDS: metroNIDAZOLE 500 MG TAB PO SCH ×2 (08:01→16:47)
[2016-05-30] MEDS: MENTHOL-CAMPHOR LOTION 222 APPLIC/222 ML BOTTLE TOPICAL SCH ×3 (08:02→20:02)
[2016-05-30] MEDS: IPRATROPIUM-ALBUTEROL 3 ML NEB INHALATION SCH ×4 (08:08→20:31)
--- NOTE | 2016-05-30 08:49 | PN ---
Patient is seen for followup for acute kidney injury, currently hemodialysis dependent. The patient is being dialyzed on a Wednesday, Wednesday, Wednesday schedule. She is lying in bed, comfortable. She is not in any acute distress. On examination, the patient is awake, comfortable. Blood pressure is 147/88, heart rate 104 per minute. She had a temp again of 101 degrees Fahrenheit. EXAMINATION OF THE HEART: S1 and S2. EXAMINATION OF THE LUNGS: Bilateral breath sounds are heard. ABDOMEN: Soft, nontender. Examination of lower extremities shows edema 1+ bilaterally. Labs show hemoglobin 8.5 g/dL. Sodium 141, potassium 5.1. She continues to have no significant urine output. ASSESSMENT: 1. Acute kidney injury, currently hemodialysis dependent. Patient remains anuric. She is maintained on hemodialysis on a Wednesday, Wednesday, Wednesday schedule. She was dialyzed yesterday. 2. Methicillin-resistant Staphylococcus aureus bacteremia which was persistent; however, repeat blood cultures after removal of femoral catheter have been negative. Patient did have another spike of temperature of 101 degrees. She is being followed by Infectious Disease. I will send out another set of blood cultures. PLAN: Repeat blood cultures as patient had another spike of temperature. Make sure patient is okay for discharge with ID before discharge.
[2016-05-30] MEDS ORDERED: ASPIRIN 81 MG CHEW PO SCH (15:30)
--- NOTE | 2016-05-30 16:36 | PN ---
DATE OF SERVICE: 05/30/2016 This 46-year-old woman was admitted with severe sepsis and also had generalized weakness and tiredness. At this time, ECF rehab is in planning. The patient also had blocked hemodialysis catheter on the right side. Dr. Do is evaluating the patient for possible declotting or reinsertion. The patient being closely monitored at this time. Sensorium slightly improved at this time. Past medical history reviewed. REVIEW OF SYSTEMS: CARDIOVASCULAR: No angina or palpitations. RESPIRATORY: As mentioned earlier. : As mentioned earlier. GI: As mentioned earlier. CENTRAL NERVOUS SYSTEM: No numbness, weakness. Current medications are: 1. Tylenol 650 q.6 p.r.n. 2. Vance 5 mg q.6 p.r.n. 3. Albuterol q.i.d. and p.r.n. 4. Lioresal 10 mg p.o. daily. 5. Dulcolax 10 mg rectal q.h.s. 6. Santyl one application daily. 7. Daptomycin 800 mg q.48 hours. 9. Diflucan 100 milligrams p.o. daily. 10. Lasix 20 mg p.o. daily. 11. Neurontin 100 mg p.o. t.i.d. 12. Flagyl 500 mg q.8. 13. Multivitamins one p.o. daily. 14. Protonix 40 mg daily. 16. K-Dur 20 meq p.o. daily. 17. Pravachol 80 mg p.o. q.h.s. 19. Sodium bicarb 650 mg p.o. t.i.d. PHYSICAL EXAMINATION: The patient is alert and oriented x2. Pulse 107, blood pressure 143/82, respirations 18, temperature 98.5. Pulse ox 97% on room air. HEENT: Conjunctivae normal. Oral mucosa moist. NECK: No jugular venous distention. No carotid bruit. No lymph node enlargement. CARDIOVASCULAR SYSTEM: S1, S2 muffled. No S3, no S4. RESPIRATORY: Breath sounds diminished in the bases. A few scattered rhonchi and crackles. ABDOMEN: Soft. Nontender. No mass palpable. LEGS: Bilateral leg edema. Nervous system: Diffusely weak. Some wasting also present. SKIN: No ulcer, rash or bleeding. LABS: WBC 5.7, hemoglobin 8.5, creatinine is 4.10. ASSESSMENT: 1. Severe sepsis and bacteremia secondary to urinary tract infection with Bacteroides Methicillin-resistant Staph aureus. 2. MELI. 3. Acute rf secondary to acute tubular necrosis along with prerenal factors and prerenal azotemia, status post newly started hemodialysis. 4. Possibly blocked dialysis catheter. 5. Sacral osteomyelitis. 6. Multiple decubitus ulcers, needs local care and wound VAC. 7. Iron deficiency anemia. 8. Severe metabolic acidosis. 9. Tachycardia secondary to sepsis. 10. Multiple sclerosis 11. Mild to moderate protein calorie malnutrition. 12. Gait dysfunction. 13. FULL CODE. RECOMMENDATION: In this 46 -year-old woman who presented with multiple complex medical issues, we will monitor the patient closely. Continue the current medications. Continue symptomatic treatment. At this time, I would recommend monitor closely and a small dose Ecotrin may be recommended. Otherwise, continue to monitor. Prognosis guarded because of multiple complex medical issues. Further recommendations to follow. MTDD
--- NOTE | 2016-05-30 16:45 | PN ---
DATE OF SERVICE: 05/29/2016 This 46-year-old woman who was admitted with severe sepsis and bacteremia is being closely monitored. Patient complained of some tiredness and weakness. The patient also had problems with dialysis catheter with access issues. Dialysis catheter could be blocked at this time. The ECF rehab is pending. The patient complains of tiredness and weakness. The p.o. intake appears to be poor also. The patient is taking Multiple consultants include Infectious Disease and Nephrology, are following the patient. PAST MEDICAL HISTORY: Reviewed. REVIEW OF SYSTEMS: Could not be taken. The patient is slightly drowsy at this time. Current medications are: 1. Tylenol 650 q.6 p.r.n. 2. [place] 5 mg q.6 p.r.n. 3. DuoNeb q.i.d. and p.r.n. 4. Lioresal 10 mg daily. 5. Dulcolax 10 p.r.n. 6. Santyl one application daily. 7. Aranesp 40 subcu q.7 days. 8. Diflucan 100 mg p.o. daily. 9. Lasix 20 mg p.o. daily. 10. Neurontin 100 t.i.d. 11. Flagyl 500 mg q.8. 12. Protonix. 13. Sarna lotion. 14. K-Dur 10 mEq p.o. daily. 15. Pravachol 80 mg q.h.s. 16. Rifadin 300 mg p.o. b.i.d. 17. Sodium bicarb 650 mg p.o. t.i.d. PHYSICAL EXAMINATION: The patient is alert and oriented x2. Pulse 107, blood pressure 153/93, respiration 18, temperature is 96.9, pulse ox 96% on room air. HEENT: Conjunctivae normal. NECK: No jugular venous distention. No carotid bruit. No lymph node enlargement. CARDIOVASCULAR: S1 and S2, muffled. No S3, no S4. RESPIRATORY: Breath sounds diminished at the bases. Bilateral scattered rhonchi and crackles. ABDOMEN: Soft. LEGS: Bilateral leg edema. NERVOUS SYSTEM: Higher function as mentioned earlier. Mild diffuse weakness. LYMPHATICS: No lymph nodes palpable in the neck, axillae or groin. SKIN: No ulcers, rashes or bleeding. Labs are at this time show WBC 12.6, hemoglobin is 8.5. Creatinine is 4.10. ASSESSMENT: 1. Severe sepsis and bacteremia secondary to urinary tract infection with bacteroides and methicillin-resistant Staphylococcus aureus. 2. Negative vegetation on a transesophageal echocardiogram. 3. Change in mental status, metabolic encephalopathy, multifactorial. 4. Acute renal failure secondary to acute tubular necrosis along with prerenal azotemia on hemodialysis. 5. Possibly blocked hemodialysis catheter. 6. Sacral osteomyelitis history. 7. Multiple decubitus ulcers, need wound VAC and wound care. 8. Iron deficiency anemia. 9. Severe metabolic acidosis. 10. Tachycardia secondary to sepsis. 11. Multiple sclerosis history. 12. Mild protein calorie malnutrition. 13. Gait dysfunction. 14. FULL CODE. RECOMMENDATIONS AND DISCUSSION: Recommend to continue current medications, continue with monitoring and symptomatic treatment. Otherwise, at this time continue with antibiotics. Consult Dr. Do for vascular surgery consultation for issue of the vascular access for the hemodialysis. Continue to monitor. Prognosis guarded. PT, OT evaluation. Possible ECF rehab. Discussed with family. Further recommendations to follow. MTDD
[2016-05-30] MEDS: ASPIRIN 81 MG CHEW PO SCH (16:47)
[2016-05-30] MEDS: COLLAGENASE 250 UNIT/GM OINTMENT 30 GM TUBE TOPICAL SCH (16:48)
[2016-05-30 18:56] LABS: Appearance,Urine Cloudy (Clear); Bilirubin,Urine Negative (Negative); Glucose,Urine (UA) Negative (Negative); Hyphae Yeast, Urine Rare /hpf; Ketones,Urine Negative (Negative); Leukocyte Esterase,Urine Moderate (Negative); Nitrite,Urine Negative (Negative); PH, Urine 7.5 (5.0-8.0); Particle Count 9214; Protein,Urine 3+ (Negative); RBC,Urine 48 /hpf (0-5); Specific Gravity,Urine 1.017 (1.001-1.035); Squamous Epithelial Cell,Urine 1 /hpf (0-4); UA Billing (MACRO vs. MICRO) MICRO; Urobilinogen,Urine <2.0 mg/dL (<2.0); WBC,Urine 100 /hpf (0-5)
[2016-05-30] MEDS: ACETAMINOPHEN TAB 325 MG TAB PO PRN (20:00)
[2016-05-30] MEDS: PRAVASTATIN SODIUM 80 MG TAB PO SCH (20:01)
[2016-05-30] MEDS: MULTIVITAMINS, THERA 1 EACH TAB PO SCH (20:01)
[2016-05-31] MEDS: SODIUM CHLORIDE 0.9% 1,000 ML IV SCH (01:29)
[2016-05-31] MEDS: POTASSIUM CHLORIDE ER 10 MEQ TAB.ER.PRT PO SCH (06:08)
[2016-05-31] MEDS: FUROSEMIDE 20 MG TAB PO SCH (06:08)
[2016-05-31] MEDS: GABAPENTIN 100 MG CAP PO SCH ×3 (06:08→22:38)
[2016-05-31 07:07] LABS: Basophils # (A) 0.1 k/uL (0-0.2); Basophils % (A) 1 %; CH 26.3; CHCM 30.4; Eosinophils # (A) 0.1 k/uL (0-0.7); Eosinophils % (A) 2 %; HCT 25.6 % (34.0-46.0); HDW 2.42; HGB 7.7 gm/dL (11.4-16.0); Hypochromasia Moderate; Luc # (Auto) 0.36; Luc % (Auto) 4; Lymphocytes # (A) 1.2 k/uL (1.0-4.8); Lymphocytes % (A) 14 %; MCH 26.1 pg (25.0-35.0); MCHC 30.2 g/dL (31.0-37.0); MCV 86.7 fL (80.0-100.0); Mean Platelet Volume 6.9; Monocytes # (A) 0.3 k/uL (0-1.0); Monocytes % (A) 4 %; Neutrophils # (A) 6.8 k/uL (1.3-7.7); Neutrophils % (A) 76 %; RBC 2.95 m/uL (3.80-5.40); RDW 14.4 % (11.5-15.5); WBC 8.9 k/uL (3.8-10.6); WBC (Perox) 9.65
[2016-05-31 07:21] LABS: Calcium 8.9 mg/dL (8.4-10.2); Potassium 5.5 mmol/L (3.5-5.1)
[2016-05-31] MEDS: IPRATROPIUM-ALBUTEROL 3 ML NEB INHALATION SCH ×4 (07:35→19:39)
[2016-05-31 09:14] LABS: Erythrocyte Sedimentation Rate >140 mm/hr (0-20)
[2016-05-31] MEDS: PANTOPRAZOLE 40 MG TABLET PO SCH (09:33)
[2016-05-31] MEDS: FLUCONAZOLE 100 MG TAB PO SCH (09:33)
[2016-05-31] MEDS: SODIUM BICARBONATE TAB 650 MG TAB PO SCH ×3 (09:33→22:39)
[2016-05-31] MEDS: metroNIDAZOLE 500 MG TAB PO SCH ×3 (09:33→17:38)
[2016-05-31] MEDS: ASPIRIN 81 MG CHEW PO SCH (09:33)
[2016-05-31] MEDS: MENTHOL-CAMPHOR LOTION 222 APPLIC/222 ML BOTTLE TOPICAL SCH ×3 (09:35→22:13)
[2016-05-31] MEDS: RIFAMPIN 300 MG CAP PO SCH ×2 (09:37→21:59)
--- NOTE | 2016-05-31 12:23 | PN ---
Patient is seen for followup for acute kidney injury, currently hemodialysis-dependent. Patient had another spike of fever yesterday. Currently, she is afebrile. She has had MRSA bacteremia and is maintained on rifampin and vancomycin. New cultures are negative thus far. No significant complaints today. On examination, blood pressure is 135/89, heart rate 80 per minute. She is afebrile. Examination of the heart, S1 and S2. Examination of the lungs, decreased breath sounds in the bases. Abdomen is soft, nontender. Examination of lower extremities shows edema 1+ bilaterally. [employer] exam, patient is not moving her lower extremities. Labs show sodium 141, potassium 5.5, BUN 56, serum creatinine 3.7. Hemoglobin 7.7 g/dL. ASSESSMENT: 1. Acute kidney injury, currently hemodialysis-dependent. She is dialyzed on a Wednesday, Wednesday, Wednesday schedule. 2. Methicillin-resistant Staphylococcus aureus bacteremia with repeat blood cultures, currently negative, maintained on dapto and rifampin. No evidence of vegetations on MELI. 3. Mild volume overload. Will discontinue the IV fluids. 4. Multiple sclerosis. 5. Sacral osteomyelitis. PLAN: DC IV fluids. Hemodialysis tomorrow.
--- NOTE | 2016-05-31 17:00 | PN ---
DATE OF SERVICE: 05/31/2016 This is a 46-year-old woman who was admitted with severe sepsis, also generalized weakness and tiredness. The patient also had a bacteria MRSA grown from the culture. The patient also had occluded dialysis catheter. At this time no chest pain or palpitation. No fever. Dr. Oliveros and Dr. Doe is following the patient closely. On exam, alert and oriented x3. The pulse is 101, blood pressure 143/91, respirations 18, temperature 98.2, pulse ox 98% on room air. HEENT: Conjunctivae are pale. NECK: No jugular venous distension. CARDIOVASCULAR SYSTEM: S1, S2, muffled. RESPIRATORY: Breath sounds diminished at the bases, a few rhonchi, no crackles. Abdomen is soft, nontender. EXTREMITIES: Legs bilateral leg edema. NERVOUS SYSTEM: No focal deficits. LABS: WBC 8.9, hemoglobin is 7.7 and creatinine is 3.7. UA noted. ASSESSMENT: 1. Severe sepsis and bacteremia secondary to urinary tract infection with bacteroides and as well as methicillin-resistant Staphylococcus aureus. 2. Negative MELI. 3. Acute renal failure secondary to acute tubular necrosis along with prerenal factors, prerenal azotemia. 4. Newly started hemodialysis. 5. Possible blocked dialysis catheter. 6. Sacral osteomyelitis. 7. History of decubitus ulcers with local wound care and wound VAC. 8. Iron deficient anemia. 9. History of metabolic encephalopathy. 10. Tachycardia secondary to sepsis. 11. Multiple sclerosis. 12. Mild to moderate protein calorie malnutrition. 13. Gait dysfunction. 14. FULL CODE. RECOMMENDATION: Recommend to continue with the current medication. Continue with the monitoring and symptomatic treatment. Continue with the PT, OT evaluation. Otherwise, Dr. Do to evaluate the blocked dialysis catheter. Guarded prognosis because of multiple complex medical issues. Further recommendations to follow. Resume the rest of the medications. MTDD
[2016-05-31] MEDS: HYDROcodone/APAP 5-325MG 1 EACH TAB PO PRN (17:44)
[2016-05-31] MEDS: COLLAGENASE 250 UNIT/GM OINTMENT 30 GM TUBE TOPICAL SCH (22:13)
[2016-05-31] MEDS: PRAVASTATIN SODIUM 80 MG TAB PO SCH (22:39)
[2016-05-31] MEDS: MULTIVITAMINS, THERA 1 EACH TAB PO SCH (22:39)
[2016-05-31] MEDS: metroNIDAZOLE-NS PMX 500 MG in SALINE 1 100ML.BAG IVPB SCH (23:49)
[2016-06-01] MEDS: FUROSEMIDE 10 MG/ML 2 ML VIAL IV SCH (06:23)
[2016-06-01 06:33] LABS: Basophils # (A) 0.1 k/uL (0-0.2); Basophils % (A) 1 %; CHCM 29.7; Eosinophils # (A) 0.1 k/uL (0-0.7); Eosinophils % (A) 1 %; HCT 27.7 % (34.0-46.0); HDW 2.38; HGB 8.3 gm/dL (11.4-16.0); Hypochromasia Marked; Luc # (Auto) 0.37; Luc % (Auto) 4; Lymphocytes # (A) 1.1 k/uL (1.0-4.8); Lymphocytes % (A) 11 %; MCH 26.2 pg (25.0-35.0); MCHC 29.9 g/dL (31.0-37.0); MCV 87.7 fL (80.0-100.0); Mean Platelet Volume 6.7; Monocytes # (A) 0.3 k/uL (0-1.0); Monocytes % (A) 4 %; Neutrophils # (A) 7.8 k/uL (1.3-7.7); Neutrophils % (A) 80 %; RBC 3.16 m/uL (3.80-5.40); RDW 14.2 % (11.5-15.5); WBC 9.8 k/uL (3.8-10.6); WBC (Perox) 10.39
[2016-06-01 06:39] LABS: Calcium 9.3 mg/dL (8.4-10.2)
[2016-06-01 06:47] LABS: Potassium 6.2 mmol/L (3.5-5.1)
[2016-06-01] MEDS: IPRATROPIUM-ALBUTEROL 3 ML NEB INHALATION SCH ×4 (07:45→20:09)
[2016-06-01] MEDS: GABAPENTIN 100 MG CAP PO SCH ×3 (08:42→21:40)
[2016-06-01] MEDS: POTASSIUM CHLORIDE ER 10 MEQ TAB.ER.PRT PO SCH (08:42)
[2016-06-01] MEDS ORDERED: SODIUM CHLORIDE 0.9% 500 ML IV ONE (09:00)
[2016-06-01] MEDS ORDERED: ceFAZolin 2 GM in SODIUM CHLORIDE 0.9% 100 ML IVPB STA (09:01)
[2016-06-01] MEDS: LIDOCAINE 2% INJ 20 MG/ML SQ ONE ×2 (09:09→09:27)
--- NOTE | 2016-06-01 10:00 | PN ---
DATE OF SERVICE: 05/31/2016 REASON FOR FOLLOWUP: MRSA bacteremia along with Bacteroides bacteremia secondary to sacral osteomyelitis. INTERVAL HISTORY: The patient is afebrile. She is slightly more awake, alert this afternoon. Breathing comfortably. Denies significant chest pain. No cough or sputum production. No diarrhea. On examination, blood pressure is 140/83 with a pulse of 110, temperature 97.4. GENERAL: A middle-age female lying in bed in no distress. RESPIRATORY SYSTEM: Unlabored breathing. Clear to auscultation. HEART: S1 and S2 regular rate and rhythm. ABDOMEN: Soft. LABS: Hemoglobin 7.7, white count 8.9 with a BUN of 56, creatinine 3.70. Followup blood culture has been negative. DIAGNOSTIC IMPRESSION AND PLAN: Bacteroides MRSA bacteremia secondary to sacral osteomyelitis. Followup blood culture has been negative. MELI was negative. At this time we will continue on daptomycin 800 mg after each dialysis for another 6 to 8 weeks along with oral Flagyl. Santyl to the wound. Close outpatient follow-up.
--- NOTE | 2016-06-01 10:09 | P.PCN ---
Description of Procedure: Preoperative diagnoses is acute renal failure model function of the dialysis catheter Procedure placement of 38 cm dialysis catheter right internal jugular approach with exchange from the previous catheter Patient brought to the [facility] this patient had a right IJ catheter placed in the past the catheter is not working right side of the neck and chest was prepped and draped applied usual sterile manner 1% lidocaine for an infected and the neck and chest area small incision was made in the neck and dialysis catheter was identified and clamped and divided a new tunnel was made to the neutral was brought M dialysis catheter the wire was passed through the catheter check and and of the C-arm control IT were removed and sheath was advanced. The guidewire through the sheath and introducer dialysis catheter tip of the catheter was had sputum vena cava and atrium flushed with heparin saline and Hep-Lock incision closed with Vicryl and nylon dressing applied patient tolerated the procedure well and patient transferred to the floor in satisfactory condition
[2016-06-01] MEDS: FLUCONAZOLE 100 MG TAB PO SCH (10:21)
[2016-06-01] MEDS: ASPIRIN 81 MG CHEW PO SCH (10:21)
[2016-06-01] MEDS: PANTOPRAZOLE 40 MG TABLET PO SCH (10:21)
[2016-06-01] MEDS: SODIUM BICARBONATE TAB 650 MG TAB PO SCH ×3 (10:23→21:40)
[2016-06-01] MEDS: RIFAMPIN 300 MG CAP PO SCH ×2 (10:23→21:40)
[2016-06-01] MEDS: metroNIDAZOLE-NS PMX 500 MG in SALINE 1 100ML.BAG IVPB SCH ×3 (10:25→23:42)
[2016-06-01] MEDS: MENTHOL-CAMPHOR LOTION 222 APPLIC/222 ML BOTTLE TOPICAL SCH ×3 (10:25→21:34)
--- NOTE | 2016-06-01 12:59 | XR ---
EXAMINATION TYPE: XR chest 1V confirm line [facility] DATE OF EXAM: 06/01/2016 10:44 AM COMPARISON: 05/23/2016 HISTORY: Dialysis catheter insertion FINDINGS: There are bilateral pleural effusions with cardiomegaly and bibasilar infiltrate. There is a diffuse interstitial pattern. Right-sided dialysis catheter seen with the tip overlying the right atrium. No sizable pneumothorax. IMPRESSION: 1. Improving interstitial venous congestion with tiny bilateral effusions.
[2016-06-01 13:47] VITALS: BMI 36.6
[2016-06-01] MEDS ORDERED: cloNIDine HCL 0.1 MG TAB PO STA (15:15)
--- NOTE | 2016-06-01 15:52 | PN ---
DATE OF SERVICE: 06/01/2016 REASON FOR FOLLOWUP: Sacral osteomyelitis with secondary bacteroides and MRSA bacteremia. INTERVAL HISTORY: The patient is afebrile. The patient was taken back to the [facility] and is status post placement of a right internal jugular exchanged from the previous catheter. The patient did have problems with a blockage in catheter. The patient tolerated the procedure. The patient seems to have some problems with difficulty swallowing; hence the patient has been made n.p.o. The patient denies significant chest pain or cough. No abdominal pain. No nausea, vomiting or any diarrhea. On examination, her blood pressure is 152/98 with a pulse of 102, temperature of 97.4. She is 97% on room air. General description is a middle-aged female lying in bed in no distress. RESPIRATORY SYSTEM: Unlabored breathing. Clear to auscultation anteriorly. HEART: S1, S2. Regular rate and rhythm. ABDOMEN: Soft. No tenderness. LABS: Hemoglobin 8.3, white count normalized to 9.8 with a BUN of 70, creatinine 4.30. Blood culture followup on 05/24, , and so far negative. DIAGNOSTIC IMPRESSION AND PLAN: Patient with methicillin-resistant Staphylococcus aureus and bacteroides bacteremia secondary to sacral osteomyelitis. Follow-up blood cultures have been negative. The patient at this time will continue with daptomycin 800 after each dialysis for another 6 to 8 weeks in addition to the oral rifampin. N.P.O. while awaiting the swallow evaluation to be completed. Continue wound care with the Santyl. Continue supportive care.
[2016-06-01 16:14] LABS: Hepatitis B Surface Ag Index 0.09
[2016-06-01] MEDS: amLODIPine 5 MG TAB PO SCH (16:56)
[2016-06-01] MEDS ORDERED: HEPARIN SODIUM,PORCINE 5,000 UNIT/ML 1 ML VIAL ONE (17:30)
--- NOTE | 2016-06-01 19:10 | PN ---
Patient is seen for follow-up for ( ) currently dialysis -dependent. Patient scheduled for dialysis today. On examination, blood pressure was 142/96, heart rate 96 per minute. She is afebrile. Examination of the heart S1 and S2. Examination of the lungs: Decreased breath sounds in bases. ABDOMEN: Soft, nontender. Examination of the lower extremities shows edema 1+ bilaterally. Labs show sodium 142, potassium 6.2, chloride 103, BUN 70, serum creatinine of 4.3. Hemoglobin 8.3 g/dL. ASSESSMENT: 1. Acute kidney injury, acute tubular necrosis, currently oliguric and completely hemodialysis dependent. Patient is maintained on a Wednesday, Wednesday, Wednesday schedule. She had issues with her dialysis catheter and had a new catheter placed today. Patient will be dialyzed through her catheter. I was called by the dialysis nurse as her blood pressure was running high during treatment. We will give her a dose of clonidine 0.1 mg x1 and if blood pressure remains elevated she will be started on Norvasc 5 mg daily. 2. Hyperkalemia. Expect further improvement with dialysis today. 3. Hypertension. Add Norvasc daily if blood pressure remains elevated. 4. Methicillin-resistant Staph aureus bacteremia with repeat blood cultures staying negative. Echocardiogram showed no evidence of vegetations. 5. Multiple sclerosis. PLAN: Clonidine x1 and add daily Norvasc if blood pressure remains elevated. Hemodialysis today.
--- NOTE | 2016-06-01 21:18 | PN ---
DATE OF SERVICE: 06/01/2016 This 46-year-old woman who was admitted with severe stenosis and bacteremia is being closely monitored. The patient also had an exchange of dialysis catheter in the right internal jugular by Dr. Do because of blockage. No chest pain. No palpitation. No fever. Sensorium has improved significantly. The patient is still mildly confused. On exam, alert and oriented x2. Pulse 104, blood pressure 148/96, respiration 16, temperature 97.4, pulse ox ntd. HEENT: Conjunctivae normal. Oral mucosa moist. NECK: No jugular venous distention. No carotid bruit. No lymph node enlargement. CARDIOVASCULAR SYSTEM: S1, S2 muffled. No S3. No S4. RESPIRATORY SYSTEM: Breath sounds diminished at the bases. A few scattered rhonchi and crackles. ABDOMEN: Soft, nontender. No mass palpable. LEGS: Minimal edema. NERVOUS SYSTEM: Diffusely weak, confused. Lab investigations at this time show WBC 9.8, hemoglobin 8.3, potassium 6.2. Creatinine is 4.30. UA noted. ASSESSMENT: 1. Severe sepsis and bacteremia secondary to urinary tract infection with bacteroides as well as methicillin-resistant Staphylococcus aureus. 2. Negative transesophageal echocardiogram. 3. Change in mental status, metabolic encephalopathy, multifactorial. 4. Acute renal failure secondary to acute tubular necrosis along with prerenal factors and prerenal azotemia. 5. Newly started hemodialysis. 6. Possible blocked dialysis catheter on the right with replacement. 7. Sacral osteomyelitis history. 8. History of decubitus ulcer with local wound care and wound V.A.C. 9. Iron deficiency anemia. 10. History of metabolic encephalopathy. 11. Tachycardia secondary to sepsis. 12. Multiple sclerosis history. 13. Mild to moderate protein-calorie malnutrition. 14. Gait dysfunction. 15. Sacral decubitus ulcer, stage IV. 16. FULL CODE. RECOMMENDATIONS AND DISCUSSION: I recommend to continue with the current medications, continue with the monitoring, symptomatic treatment. Continue with the broad-spectrum IV antibiotics. Otherwise, PT/OT evaluation. Anticipate transfer to the ECF once the patient is stabilized. Guarded prognosis. Further recommendations to follow. See orders for further details. MTDD
[2016-06-01] MEDS: COLLAGENASE 250 UNIT/GM OINTMENT 30 GM TUBE TOPICAL SCH (21:34)
[2016-06-01] MEDS: MULTIVITAMINS, THERA 1 EACH TAB PO SCH (21:40)
[2016-06-01] MEDS: HYDROcodone/APAP 5-325MG 1 EACH TAB PO PRN (21:40)
[2016-06-01] MEDS: PRAVASTATIN SODIUM 80 MG TAB PO SCH (21:40)
[2016-06-02] MEDS: GABAPENTIN 100 MG CAP PO SCH ×2 (06:24→12:50)
[2016-06-02] MEDS: FUROSEMIDE 10 MG/ML 2 ML VIAL IV SCH (06:24)
[2016-06-02 06:37] LABS: Basophils # (A) 0.1 k/uL (0-0.2); Basophils % (A) 1 %; CH 26.5; CHCM 30.7; Eosinophils # (A) 0.3 k/uL (0-0.7); Eosinophils % (A) 4 %; HCT 25.2 % (34.0-46.0); HDW 2.55; HGB 7.6 gm/dL (11.4-16.0); Hypochromasia Slight; Luc # (Auto) 0.41; Luc % (Auto) 4; Lymphocytes # (A) 1.1 k/uL (1.0-4.8); Lymphocytes % (A) 12 %; MCH 26.2 pg (25.0-35.0); MCHC 30.2 g/dL (31.0-37.0); MCV 86.7 fL (80.0-100.0); Mean Platelet Volume 7.7; Monocytes # (A) 0.3 k/uL (0-1.0); Monocytes % (A) 4 %; Neutrophils % (A) 76 %; RBC 2.91 m/uL (3.80-5.40); RDW 14.4 % (11.5-15.5); WBC 9.3 k/uL (3.8-10.6)
[2016-06-02 06:54] LABS: Potassium 4.9 mmol/L (3.5-5.1)
[2016-06-02 07:19] VITALS: RESP 16
--- NOTE | 2016-06-02 08:04 | IR ---
Fluoroscopy HISTORY: Dialysis catheter placement 3.5 minutes fluoroscopy time supplied to the referring clinician. 128 intraoperative C-arm images do cument the procedure. See dictated report from vascular surgery.
[2016-06-02] MEDS: POTASSIUM CHLORIDE ER 10 MEQ TAB.ER.PRT PO SCH (08:12)
[2016-06-02] MEDS: MENTHOL-CAMPHOR LOTION 222 APPLIC/222 ML BOTTLE TOPICAL SCH (08:13)
[2016-06-02] MEDS: metroNIDAZOLE-NS PMX 500 MG in SALINE 1 100ML.BAG IVPB SCH (08:14)
[2016-06-02] MEDS: ASPIRIN 81 MG CHEW PO SCH (08:15)
[2016-06-02] MEDS: amLODIPine 5 MG TAB PO SCH (08:15)
[2016-06-02] MEDS: FLUCONAZOLE 100 MG TAB PO SCH (08:15)
[2016-06-02] MEDS: SODIUM BICARBONATE TAB 650 MG TAB PO SCH (08:16)
[2016-06-02] MEDS: PANTOPRAZOLE 40 MG TABLET PO SCH (08:16)
[2016-06-02] MEDS: RIFAMPIN 300 MG CAP PO SCH (08:16)
[2016-06-02] MEDS: IPRATROPIUM-ALBUTEROL 3 ML NEB INHALATION SCH ×2 (09:26→12:58)
--- NOTE | 2016-06-02 10:03 | P.PN ---
Subjective Patient is seen in follow-up for acute kidney injury. Her baseline creatinine is near 0.6 and developed hemodialysis dependent acute kidney injury from sepsis this admission. She is oliguric. Patient presented with hypotension and was subsequently diagnosed with pneumonia. She also has sacral osteomyelitis for which she is currently maintained on antibiotics. Her blood cultures are positive for MRSA and Bacteroides. Patient denies any chest pain or shortness of breath. Her appetite is poor. She received a new permacath on June 01. Vital signs are stable. General: The patient appeared well nourished and normally developed. HEENT: Head exam is unremarkable. Neck is without jugular venous distension. LUNGS: Lungs are clear to auscultation and percussion. Breath sounds decreased. HEART: Rate and Rhythm are regular. First and second heart sounds normal. No murmurs, rubs or gallops. ABDOMEN: Abdominal exam reveals normal bowel sounds. Non-tender and non- distended. No evidence of peritonitis. EXTREMITITES: 1+ edema. Objective - Vital Signs Vital signs: Vital Signs Temp 97.8 F 06/02/16 07:05 Pulse 109 H 06/02/16 07:05 Resp 16 06/02/16 07:05 BP 138/83 06/02/16 07:05 Pulse Ox 97 06/02/16 07:05 Intake & Output 06/01/16 06/02/16 06/02/16 18:59 06:59 18:59 Intake Total 200 100 Balance 200 100 Weight 100 kg 98 kg Intake: IV 100 Intake, IV Titration 100 100 Amount ceFAZolin 2 gm In Sodium 100 Chloride 0.9% 100 ml @ 100 mls/hr IVPB ONCE STA Rx#:[id number] metroNIDAZOLE-NS PMX 500 100 mg In Saline 1 100ml.bag @ 100 mls/hr IVPB Q8HR YANIRA Rx#:[id number] Oral 0 Other: Voiding Method Indwelling Catheter Indwelling Catheter Indwelling Catheter # Voids 0 # Bowel Movements 1 - Labs CBC & Chem 7: 06/02/16 05:58 06/02/16 05:58 Labs: Abnormal Lab Results - Last 24 Hours (Table) 06/02/16 06/02/16 Range/Units 05:58 05:58 RBC 2.91 L (3.80-5.40) m/uL Hgb 7.6 L (11.4-16.0) gm/dL Hct 25.2 L (34.0-46.0) % MCHC 30.2 L (31.0-37.0) g/dL Plt Count 676 H (150-450) k/uL Carbon Dioxide 19 L (22-30) mmol/L BUN 44 H (7-17) mg/dL Creatinine 3.50 H (0.52-1.04) mg/dL Microbiology - Last 24 Hours (Table) 05/27/16 22:14 Blood Culture - Preliminary Blood No Growth after 120 hours 05/30/16 09:08 Blood Culture - Preliminary Blood No Growth after 48 hours Assessment and Plan Plan: Assessment: #1. Oliguric acute kidney injury secondary to septic ATN. Now hemodialysis dependent on a Wednesday schedule. Urine eosinophils negative. Baseline creatinine 0.6. #2. Severe sepsis secondary to pneumonia and bacteremia. #3. MRSA and Bacteroides bacteremia. #4. Metabolic acidosis secondary to acute kidney injury. #5. Hyperkalemia secondary to metabolic acidosis and acute kidney injury. Improved with dialysis. #6. Anemia. Hemoglobin 7.6 today. Plan: Hemodialysis tomorrow with goal 3-4 L ultrafiltration. Maintain Aranesp. Antibiotics per infectious disease recommendations. Continue to monitor renal function and urine output closely. Maintain oral sodium bicarbonate supplementation. I will increase Lasix to 80 mg twice daily. Will consider kidney biopsy as an outpatient.
[2016-06-02 12:03] VITALS: BP 144/87; TEMP 99.6
--- NOTE | 2016-06-02 13:07 | DS ---
DATE OF ADMISSION: 05/17/2016 DATE OF DISCHARGE: 06/02/2016 FINAL DIAGNOSES: 1. Severe sepsis and bacteremia secondary to urinary tract infection with bacteroides and methicillin-resistant Staphylococcus aureus. 2. Negative vegetation on transesophageal echocardiogram . 3. Acute renal failure secondary to acute tubular necrosis along with prerenal azotemia. 4. Change in mental status, metabolic encephalopathy, multifactorial. 5. Newly started hemodialysis. 6. Possible blocked dialysis catheter on the right with replacement. 7. Sacral osteomyelitis history. 8. History of decubitus ulcer with local wound care and wound VAC. 9. Iron deficiency anemia. 10. History of metabolic encephalopathy. 11. Tachycardia secondary to sepsis. 12. Multiple sclerosis history. 13. Mild to moderate protein calorie malnutrition. 14. Gait dysfunction. 15. Sacral decubitus stage IV. 16. Hyperkalemia. 17. Normocytic anemia secondary to anemia of chronic disease. 18. FULL CODE. DISCHARGE DISPOSITION: The patient will be discharged in stable condition with guarded prognosis. Discharge cleared by multiple consultants. Total time taken 35 minutes. HISTORY OF PRESENT ILLNESS: This 46-year-old woman with a past medical history of multiple medical problems who was admitted with sepsis, bacteremia and multiple medical issues. The patient had MELI, it was negative. Patient had change in mental status. The patient was on broad-spectrum IV antibiotics, improved significantly. Seen by multiple consultants including Infectious Disease. Hemodialysis was initiated. Patient improved significantly. Potassium was corrected. On exam, vitals are stable. CARDIOVASCULAR SYSTEM: S1, S2 muffled. ABDOMEN: Soft. NERVOUS SYSTEM: No focal deficits. Currently the creatinine 3.5. Hemoglobin is 7.6. The patient will be discharge in stable condition. Diet is cardiac. Activity limited until followup. Follow up Dr. Mojica as advised. Follow up with Dr. Aldridge as advised. Follow up with Infectious Disease as advised, Dr. Rivero. Medications are: 1. Tylenol 650 q.6 p.r.n. 2. Pro-Stat 30 mL p.o. b.i.d. 3. Lioresal 10 mg p.o. daily. 4. Dulcolax 10 mg rectal. 5. Cubicin 800 mg IV q.48 hours after each dialysis for 6 to [address] Rivero. 6. Aranesp 40 subcu 7 days. 7. Tecfidera 240 mg p.o. b.i.d. 8. Diflucan 100 mg p.o. daily. 9. Folic acid 1 mg p.o. daily. 10. Lasix 80 mg p.o. b.i.d. 11. Inez 5 mg q.6 p.r.n. 12. Albuterol Atrovent updrafts q.i.d. and p.r.n. 13. Biofreeze topically p.r.n. 14. Multivitamin 1 p.o. daily. 15. Prilosec 20 mg p.o. daily. 16. Thiamine 100 mg p.o. daily. Once again, the patient will be discharged in stable condition with guarded prognosis. MTDD
[2016-06-02 13:17] VITALS: PULSE 94
[2016-06-02] MEDS ORDERED: ONDANSETRON 4 MG/2 ML VIAL IVP PRN (13:35)
--- NOTE | 2016-06-02 15:43 | P.PN ---
Progress Note - Text Addendum to discharge summary for Dr. Mc Please delete Diflucan, and add Flagyl 500 mg by mouth 1 every 8 hours 6 weeks to med regime.
[2016-06-02] MEDS ORDERED: FUROSEMIDE 80 MG TAB PO SCH (16:00)
--- NOTE | 2016-06-02 18:22 | PN ---
DATE OF SERVICE: 06/02/2016 REASON FOR FOLLOWUP: MRSA and bacteroides bacteremia secondary to sacral osteomyelitis. INTERVAL HISTORY: The patient is afebrile. She is currently breathing comfortably. No further nausea or vomiting. Denies having any chest pain or shortness of breath or cough. No abdominal pain or any diarrhea. On examination, blood pressure 144/87, pulse of 96, temperature 97.6. She is 96% on room air. General description is a middle-aged female lying in bed in no distress. RESPIRATORY SYSTEM: Unlabored breathing. Clear to auscultation anteriorly. HEART: S1, S2. Regular rate and rhythm. ABDOMEN: Soft. No tenderness. LABS: Hemoglobin is 7.6 with a white count of 9.3 with a BUN of 44, creatinine 3.50. Follow-up blood cultures on 05/24, 6, , and are negative. DIAGNOSTIC IMPRESSION AND PLAN: Patient with methicillin-resistant Staphylococcus aureus and bacteroides bacteremia secondary to sacral osteomyelitis. Plan will be for daptomycin 800 mg after each dialysis for another 5 to 6 weeks along with oral Flagyl 500 mg p.o. q.8 hours. Diflucan to be discontinued. , discussed with primary team. Local wound care with Santyl. Follow up in the wound care center next week. ELIZABETH
== END 2016-06-02 15:34 | DRG 871 ==
LOC: EC 09:31 → 6SEL 14:22
PROVIDERS: ADMIT Internal Medicine; ATTEND Internal Medicine
PROC: 0T2BX0Z Change Drainage Device in Bladder, External Approach (ICD-10-PCS; 2016-05-19)
PROC: 06H033Z Insertion of Infusion Device into Inferior Vena Cava, Percutaneous Approach (ICD-10-PCS; 2016-05-19)
PROC: 5A1D60Z (ICD-10-PCS; principal; 2016-05-19 12:40)
PROC: 05HM33Z Insertion of Infusion Device into Right Internal Jugular Vein, Percutaneous Approach (ICD-10-PCS; 2016-05-23)
PROC: B246ZZ4 Ultrasonography of Right and Left Heart, Transesophageal (ICD-10-PCS; 2016-05-26)
PROC: 06PYX3Z Removal of Infusion Device from Lower Vein, External Approach (ICD-10-PCS; 2016-06-01)
PROC: 02H633Z Insertion of Infusion Device into Right Atrium, Percutaneous Approach (ICD-10-PCS; 2016-06-01)
DX: A41.02 Sepsis due to Methicillin resistant Staphylococcus aureus (principal); N17.0 Acute kidney failure with tubular necrosis; G93.41 Metabolic encephalopathy; L89.154 Pressure ulcer of sacral region, stage 4; E44.0 Moderate protein-calorie malnutrition; E87.2 Acidosis; G82.20 Paraplegia, unspecified; J18.9 Pneumonia, unspecified organism; I95.9 Hypotension, unspecified; T82.898A Other specified complication of vascular prosthetic devices, implants and grafts, initial encounter; M46.28 Osteomyelitis of vertebra, sacral and sacrococcygeal region; E87.1 Hypo-osmolality and hyponatremia; B37.49 Other urogenital candidiasis; T83.518A Infection and inflammatory reaction due to other urinary catheter, initial encounter; R13.10 Dysphagia, unspecified; R65.20 Severe sepsis without septic shock; E87.5 Hyperkalemia; G35 Multiple sclerosis; I12.9 Hypertensive chronic kidney disease with stage 1 through stage 4 chronic kidney disease, or unspecified chronic kidney disease; B95.2 Enterococcus as the cause of diseases classified elsewhere; N18.9 Chronic kidney disease, unspecified; R34 Anuria and oliguria; M62.49 Contracture of muscle, multiple sites; I08.1 Rheumatic disorders of both mitral and tricuspid valves; R26.9 Unspecified abnormalities of gait and mobility; D50.9 Iron deficiency anemia, unspecified; D63.8 Anemia in other chronic diseases classified elsewhere; E78.5 Hyperlipidemia, unspecified; K21.9 Gastro-esophageal reflux disease without esophagitis; E86.0 Dehydration; R00.0 Tachycardia, unspecified; R47.81 Slurred speech; B96.6 Bacteroides fragilis [B. fragilis] as the cause of diseases classified elsewhere; E87.70 Fluid overload, unspecified; R29.6 Repeated falls; Z68.36 Body mass index [BMI] 36.0-36.9, adult; Z86.14 Personal history of Methicillin resistant Staphylococcus aureus infection; Z96.0 Presence of urogenital implants; Z16.21 Resistance to vancomycin; Z79.2 Long term (current) use of antibiotics; Z79.1 Long term (current) use of non-steroidal anti-inflammatories (NSAID); Z83.3 Family history of diabetes mellitus; Z82.49 Family history of ischemic heart disease and other diseases of the circulatory system; Z79.899 Other long term (current) drug therapy; Z74.01 Bed confinement status; Z99.2 Dependence on renal dialysis; Z91.81 History of falling; Z91.018 Allergy to other foods; Z79.891 Long term (current) use of opiate analgesic; Y84.6 Urinary catheterization as the cause of abnormal reaction of the patient, or of later complication, without mention of misadventure at the time of the procedure
CPT/HCPCS: 36415; 36556; 36581; 71010; 72192; 76770; 76937; 77001; 80048; 80053; 80061; 80074; 80202; 81001; 82272; 82533; 82550; 82553; 82728; 83540; 83550; 83605; 84134; 84484; 85025; 85027; 85610; 85652; 85730; 86140; 87040; 87070; 87075; 87077; 87086; 87186; 87205; 87324; 87340; 90935; 93005; 93312; 93320; 93325; 94640; 94760; 96361; 96365; 96367; 99285

== ENCOUNTER 2016-06-26 17:15 | Emergency (ER) | payer OTHER ==
[2016-06-26] MEDS ORDERED: SODIUM CHLORIDE 0.9% 500 ML IV STA (17:49)
[2016-06-26] MEDS ORDERED: SODIUM CHLORIDE 0.9% 1,000 ML IV STA (17:49)
[2016-06-26 18:30] LABS: Anisocytosis Slight; Basophils # (A) 0.1 k/uL (0-0.2); Basophils % (A) 1 %; CH 26.4; CHCM 31.2; Eosinophils # (A) 0.1 k/uL (0-0.7); Eosinophils % (A) 1 %; HCT 25.5 % (34.0-46.0); HDW 3.07; Hypochromasia Moderate; Luc # (Auto) 0.18; Luc % (Auto) 3; Lymphocytes # (A) 0.9 k/uL (1.0-4.8); Lymphocytes % (A) 15 %; MCH 26.7 pg (25.0-35.0); MCHC 31.5 g/dL (31.0-37.0); MCV 84.9 fL (80.0-100.0); Mean Platelet Volume 6.3; Monocytes # (A) 0.2 k/uL (0-1.0); Monocytes % (A) 3 %; Neutrophils # (A) 4.4 k/uL (1.3-7.7); Neutrophils % (A) 76 %; RDW 16.3 % (11.5-15.5); WBC 5.8 k/uL (3.8-10.6); WBC (Perox) 6.03
[2016-06-26 18:40] LABS: Calcium 8.9 mg/dL (8.4-10.2); Phosphorous 2.4 mg/dL (2.5-4.5); Potassium 3.1 mmol/L (3.5-5.1); Total Bilirubin 0.4 mg/dL (0.2-1.3); Total Protein 6.8 g/dL (6.3-8.2)
[2016-06-26 18:47] LABS: INR 1.5 (<1.1); Prothrombin Time 14.6 sec (9.0-12.0)
[2016-06-26 19:03] LABS: Creatine Kinase 22 U/L (30-135)
[2016-06-26 19:13] LABS: Amorphous Sediment,Urine Occasional /hpf; Appearance,Urine Clear (Clear); Bilirubin,Urine Negative (Negative); Glucose,Urine (UA) Negative (Negative); Ketones,Urine Trace (Negative); Leukocyte Esterase,Urine Small (Negative); Mucus,Urine Rare /hpf; Nitrite,Urine Negative (Negative); Particle Count 4123; Protein,Urine 2+ (Negative); RBC,Urine 11 /hpf (0-5); Specific Gravity,Urine 1.006 (1.001-1.035); Squamous Epithelial Cell,Urine <1 /hpf (0-4); UA Billing (MACRO vs. MICRO) MICRO; Urobilinogen,Urine <2.0 mg/dL (<2.0); WBC,Urine 30 /hpf (0-5)
[2016-06-26 19:16] LABS: Creatine Kinase MB 0.5 ng/mL (0.0-2.4); Troponin I <0.012 ng/mL (0.000-0.034)
--- NOTE | 2016-06-26 19:44 | ED ---
General Adult HPI - General Chief complaint: Recheck/Abnormal Lab/Rx Stated complaint: blood transfusion Time Seen by Provider: 06/26/16 17:43 Source: patient Mode of arrival: wheelchair Limitations: physical limitation - History of Present Illness Initial comments: This 46-year-old white female with history of MS presents for low hemoglobin. Paperwork from the [facility] relates that her hemoglobin was 6.8 and her medical office rep was requesting a transfusion of 1 unit. The patient does state that she feels somewhat tired. She is a very poor historian and is difficult to get any adequate history. She denies any chest pain abdominal pain shortness of breath. She is wheelchair bound with significant debility. She denies any known fever. She does get dialysis and apparently had her dialysis today. No other identifiable complaints or modifying factors. - Related Data Home Medications Medication Instructions Recorded Confirmed Baclofen [Lioresal] 10 mg PO DAILY PRN 11/17/13 06/26/16 Dimethyl Fumarate [Tecfidera] 240 mg PO BID 09/27/15 06/26/16 Amino Acids/Protein Hydrolys 30 ml PO BID 04/23/16 06/26/16 [Pro-Stat Supplement] Bisacodyl [Dulcolax] 10 mg RECTAL HS PRN 04/23/16 06/26/16 Acetaminophen Tab [Tylenol] 650 mg PO Q6HR PRN 05/17/16 06/26/16 Multivitamins, Thera [Multivitamin 1 tab PO HS 05/17/16 06/26/16 (formulary)] Omeprazole [PriLOSEC] 20 mg PO DAILY 05/17/16 06/26/16 Collagenase [Santyl] 1 applic TOPICAL Q72H 06/26/16 06/26/16 Gabapentin [Neurontin] 300 mg PO TID 06/26/16 06/26/16 Ondansetron [Zofran] 4 mg PO Q8HR PRN 06/26/16 06/26/16 Phenergan Solution 25mg/Ml 0.5 ml IM Q6H PRN 06/26/16 06/26/16 Potassium Chloride [K-Tab ER] 40 meq PO ONCE 06/26/16 06/26/16 Pravastatin Sodium [Pravachol] 40 mg PO HS 06/26/16 06/26/16 Scopolamine 1.5MG/72Hr Patch 1 patch TOPICAL Q72H PRN 06/26/16 06/26/16 [TransDerm Scop] amLODIPine [Norvasc] 10 mg PO DAILY 06/26/16 06/26/16 Previous Rx's Medication Instructions Recorded Darbepoetin Pascual [Aranesp] 40 mcg SQ Q7D syringe 05/29/16 Ipratropium-Albuterol Nebulize 3 ml INHALATION RT-QID ampul.neb 05/29/16 [Duoneb 0.5 mg-3 mg/3 ml Soln] Aspirin EC [Ecotrin Low Dose] 81 mg PO DAILY #1 tablet. 06/02/16 DAPTOmycin [Cubicin] 800 mg IV Q48H #1 vial 06/02/16 Folic Acid 1 mg PO DAILY #30 tablet 06/02/16 HYDROcodone/APAP 5-325MG [[place] 1 tab PO Q6H PRN #30 tab 06/02/16 5-325] Ipratropium-Albuterol Nebulize 3 ml INHALATION Q4H PRN #0 06/02/16 [Duoneb 0.5 mg-3 mg/3 ml Soln] ampul.neb Rifampin [Rifadin] 300 mg PO BID #1 capsule 06/02/16 Sodium Bicarbonate Tab 650 mg PO TID #1 tablet 06/02/16 Thiamine [Vitamin B-1] 100 mg PO DAILY #30 tablet 06/02/16 metroNIDAZOLE [Flagyl] 500 mg PO Q8H #901083 tab 06/02/16 Ciprofloxacin HCl [Cipro] 250 mg PO Q12HR #14 tablet 06/26/16 Allergies Allergy/AdvReac Type Severity Reaction Status Date / Time cinnamon Allergy Rash/Hives Verified 06/26/16 18:57 Review of Systems ROS Statement: Those systems with pertinent positive or pertinent negative responses have been documented in the HPI. ROS Other: All systems not noted in ROS Statement are negative. Past Medical History Past Medical History: Blood Disorder, Hyperlipidemia, Musculoskeletal Disorder, Neurologic Disorder Additional Past Medical History / Comment(s): gait dysfunction, MS, stage IV sacral osteomyelitis History of Any Multi-Drug Resistant Organisms: MRSA, VRE Date of last positivie culture/infection: 05/22/16 MRSA; 05/18/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 Operating room debridemint of stage IV decubitus ulcer sacrum Past Anesthesia/Blood Transfusion Reactions: No Reported Reaction Additional Past Anesthesia/Blood Transfusion Reaction / Comment(s): NEVER HAD ANY GENERAL AA ONLY LOCAL FOR DENTAL WORK. Past Psychological History: No Psychological Hx Reported Additional Psychological History / Comment(s): . Smoking Status: Never smoker Past Alcohol Use History: None Reported Additional Past Alcohol Use History / Comment(s): Patient is a lifelong nonsmoker. She denies any alcohol abuse. Prior to being at [facility], she was living with her boyfriend. Past Drug Use History: None Reported - Past Family History Father History Unknown: Yes Additional Family Medical History / Comment(s): PTS DAD LIVED IN [place]- SHE 'S NOT SURE WHAT HE FROM Mother Family Medical History: Coronary Artery Disease (CAD), Diabetes Mellitus, Hyperlipidemia, Hypertension Additional Family Medical History / Comment(s): CARDIAC STENTS General Exam - General Exam Comments Initial Comments: GENERAL: The patient is well nourished and well hydrated. VITAL SIGNS: Heart rate, blood pressure, respiratory rate reviewed as recorded in nurse's notes. EYES: Pupils are round and reactive. Extraocular movements are intact. No conjunctival / lid redness or swelling. ENT: No external evidence of injury, swelling, or ecchymosis. Airway is patent. Throat is clear. NECK: Nontender. No swelling or evidence of injury. No subcutaneous emphysema. Trachea is midline. No thyroid mass. HEART: Regular rate and rhythm. Good peripheral pulses. LUNGS/CHEST: Breath sounds clear and equal bilaterally. No rales, rhonchi, or wheezes. No ecchymosis, subcutaneous emphysema, or tenderness. A right chest dialysis port is present. ABDOMEN: Abdomen soft without tenderness. No palpable masses or organomegaly. No peritoneal signs. No abdominal wall swelling or ecchymosis. EXTREMITIES: No extremity tenderness. No thoracolumbar tenderness. NEUROLOGIC: Sensation is grossly intact. Cranial nerve exam reveals face is symmetrical, tongue is midline, speech is clear. SKIN: No abrasions or ecchymosis is noted. No induration or masses noted. PSYCHIATRIC: Alert and and in no apparent distress, poor historian. Limitations: physical limitation Course Vital Signs 06/26/16 17:24 Temperature 98.8 F Pulse Rate 115 H Respiratory 20 Rate Blood Pressure 141/87 O2 Sat by Pulse 100 Oximetry Medical Decision Making - Medical Decision Making The patient was seen and examined. All diagnostics were reviewed. The EKG shows a sinus tachycardia at a rate of 105. There is nonspecific ST-T wave changes noted. There is left ventricular hypertrophy. The DE interval is 164, castration is 102, and QTc interval is 473. An IV was established and she is mildly hydrated. The laboratory came back showing some minor like to light abnormalities. It also shows a urinary tract infection. Her hemoglobin is low at 8.0 but this is compared to previous and is better than previous and quite stable for her. Not felt as though she needs a blood transfusion at this time. She'll be treated for urinary infection. Is felt that she is stable for transfer back to the [facility] - Lab Data Result diagrams: 06/26/16 18:19 06/26/16 18:19 Lab Results 06/26/16 06/26/16 06/26/16 Range/Units 18:19 18:19 18:19 WBC 5.8 (3.8-10.6) k/uL RBC 3.00 L (3.80-5.40) m/uL Hgb 8.0 L (11.4-16.0) gm/dL Hct 25.5 L (34.0-46.0) % MCV 84.9 (80.0-100.0) fL MCH 26.7 (25.0-35.0) pg MCHC 31.5 (31.0-37.0) g/dL RDW 16.3 H (11.5-15.5) % Plt Count 531 H (150-450) k/uL Neutrophils % 76 % Lymphocytes % 15 % Monocytes % 3 % Eosinophils % 1 % Basophils % 1 % Neutrophils # 4.4 (1.3-7.7) k/uL Lymphocytes # 0.9 L (1.0-4.8) k/uL Monocytes # 0.2 (0-1.0) k/uL Eosinophils # 0.1 (0-0.7) k/uL Basophils # 0.1 (0-0.2) k/uL Hypochromasia Moderate Anisocytosis Slight PT (9.0-12.0) sec INR (<1.1) APTT (22.0-30.0) sec Sodium 136 L (137-145) mmol/L Potassium 3.1 L (3.5-5.1) mmol/L Chloride 93 L (98-107) mmol/L Carbon Dioxide 32 H (22-30) mmol/L Anion Gap 11 mmol/L BUN 7 (7-17) mg/dL Creatinine 1.49 H (0.52-1.04) mg/dL Est GFR (MDRD) Af Amer 46 (>60 ml/min/1.73 sqM) Est GFR (MDRD) Non-Af 38 (>60 ml/min/1.73 sqM) Glucose 87 (74-99) mg/dL Calcium 8.9 (8.4-10.2) mg/dL Phosphorus 2.4 L (2.5-4.5) mg/dL Magnesium 2.0 (1.6-2.3) mg/dL Total Bilirubin 0.4 (0.2-1.3) mg/dL AST 8 L (14-36) U/L ALT 16 (9-52) U/L Alkaline Phosphatase 105 (38-126) U/L Total Creatine Kinase 22 L (30-135) U/L CK-MB (CK-2) 0.5 (0.0-2.4) ng/mL CK-MB (CK-2) Rel Index 2.3 Troponin I <0.012 (0.000-0.034) ng/mL Total Protein 6.8 (6.3-8.2) g/dL Albumin 3.1 L (3.5-5.0) g/dL Urine Color Urine Appearance (Clear) Urine pH (5.0-8.0) Ur Specific [place] (1.001-1.035) Urine Protein (Negative) Urine Glucose (UA) (Negative) Urine Ketones (Negative) Urine Blood (Negative) Urine Nitrite (Negative) Urine Bilirubin (Negative) Urine Urobilinogen (<2.0) mg/dL Ur Leukocyte Esterase (Negative) Urine RBC (0-5) /hpf Urine WBC (0-5) /hpf Ur Squamous Epith Cells (0-4) /hpf Amorphous Sediment (None) /hpf Hyaline Casts (0-2) /lpf Urine Mucus (None) /hpf Blood Type Blood Type Recheck Antibody Screen Spec Expiration Date 0406/26/16 06/26/16 Range/Units 18:19 18:19 18:36 WBC (3.8-10.6) k/uL RBC (3.80-5.40) m/uL Hgb (11.4-16.0) gm/dL Hct (34.0-46.0) % MCV (80.0-100.0) fL MCH (25.0-35.0) pg MCHC (31.0-37.0) g/dL RDW (11.5-15.5) % Plt Count (150-450) k/uL Neutrophils % % Lymphocytes % % Monocytes % % Eosinophils % % Basophils % % Neutrophils # (1.3-7.7) k/uL Lymphocytes # (1.0-4.8) k/uL Monocytes # (0-1.0) k/uL Eosinophils # (0-0.7) k/uL Basophils # (0-0.2) k/uL Hypochromasia Anisocytosis PT 14.6 H (9.0-12.0) sec INR 1.5 (<1.1) APTT 24.0 (22.0-30.0) sec Sodium (137-145) mmol/L Potassium (3.5-5.1) mmol/L Chloride (98-107) mmol/L Carbon Dioxide (22-30) mmol/L Anion Gap mmol/L BUN (7-17) mg/dL Creatinine (0.52-1.04) mg/dL Est GFR (MDRD) Af Amer (>60 ml/min/1.73 sqM) Est GFR (MDRD) Non-Af (>60 ml/min/1.73 sqM) Glucose (74-99) mg/dL Calcium (8.4-10.2) mg/dL Phosphorus (2.5-4.5) mg/dL Magnesium (1.6-2.3) mg/dL Total Bilirubin (0.2-1.3) mg/dL AST (14-36) U/L ALT (9-52) U/L Alkaline Phosphatase (38-126) U/L Total Creatine Kinase (30-135) U/L CK-MB (CK-2) (0.0-2.4) ng/mL CK-MB (CK-2) Rel Index Troponin I (0.000-0.034) ng/mL Total Protein (6.3-8.2) g/dL Albumin (3.5-5.0) g/dL Urine Color Yellow Urine Appearance Clear (Clear) Urine pH 8.0 (5.0-8.0) Ur Specific [place] 1.006 (1.001-1.035) Urine Protein 2+ H (Negative) Urine Glucose (UA) Negative (Negative) Urine Ketones Trace H (Negative) Urine Blood Trace H (Negative) Urine Nitrite Negative (Negative) Urine Bilirubin Negative (Negative) Urine Urobilinogen <2.0 (<2.0) mg/dL Ur Leukocyte Esterase Small H (Negative) Urine RBC 11 H (0-5) /hpf Urine WBC 30 H (0-5) /hpf Ur Squamous Epith Cells <1 (0-4) /hpf Amorphous Sediment Occasional H (None) /hpf Hyaline Casts 28 H (0-2) /lpf Urine Mucus Rare H (None) /hpf Blood Type A Negative Blood Type Recheck CABO Indicated Antibody Screen NEGATIVE Spec Expiration Date 06/29/2016 - 231 Disposition Clinical Impression: Anemia, End stage renal failure on dialysis, UTI (urinary tract infection) [facility] Condition: Fair Instructions: Anemia (ED), Urinary Tract Infection in Women (ED) Prescriptions: Ciprofloxacin HCl [Cipro] 250 mg PO Q12HR #14 tablet Referrals: Chace Mojica MD [Primary Care Provider] - 1-2 days Time of Disposition: 19:42 - Out of Hospital Transfer - Req. Specs Out of Hospital Transfer - Requested Specifics: Other Non-Acute (ecf)
[2016-06-26 19:45] VITALS: RESP 18; TEMP 99.1
[2016-06-26 21:01] VITALS: BP 141/89; PULSE 107
== END 2016-06-26 21:00 ==
LOC: EC 17:15
DX: D64.9 Anemia, unspecified (principal); N18.6 End stage renal disease; N39.0 Urinary tract infection, site not specified; R00.0 Tachycardia, unspecified; E78.5 Hyperlipidemia, unspecified; G35 Multiple sclerosis; Z99.2 Dependence on renal dialysis; Z99.3 Dependence on wheelchair; Z91.018 Allergy to other foods; Z79.899 Other long term (current) drug therapy
CPT/HCPCS: 36415; 80053; 81001; 82550; 82553; 83735; 84100; 84484; 85025; 85610; 85730; 86850; 86900; 86901; 87040; 93005; 96360; 96361; 99284

== ENCOUNTER 2016-07-01 14:40 | Observation (INO) | payer OTHER ==
[2016-07-01] MEDS ORDERED: NALOXONE 0.4 MG/ML 1 ML VIAL IV PRN (14:58)
--- NOTE | 2016-07-01 14:58 | ED ---
General Adult HPI - General Chief complaint: Recheck/Abnormal Lab/Rx Stated complaint: Bleeding from dialysis cath Time Seen by Provider: 07/01/16 14:42 Source: patient, EMS, RN notes reviewed Mode of arrival: EMS Limitations: no limitations - History of Present Illness Initial comments: Patient is a pleasant 46-year-old female presenting to the emergency Department as a transfer from [facility]. Patient was transferred for vascular and nephrology evaluation. Patient was at dialysis today. Despite multiple times patient kept having bleeding from the distal site of the dialysis catheter. Patient states this has been placed a couple months ago and has been U several times without problems. Patient feels fine and has no complaints at this time. Patient states left-sided weakness is chronic from her MS. - Related Data Home Medications Medication Instructions Recorded Confirmed Baclofen [Lioresal] 10 mg PO DAILY PRN 11/17/13 06/26/16 Dimethyl Fumarate [Tecfidera] 240 mg PO BID 09/27/15 06/26/16 Amino Acids/Protein Hydrolys 30 ml PO BID 04/23/16 06/26/16 [Pro-Stat Supplement] Bisacodyl [Dulcolax] 10 mg RECTAL HS PRN 04/23/16 06/26/16 Acetaminophen Tab [Tylenol] 650 mg PO Q6HR PRN 05/17/16 06/26/16 Multivitamins, Thera [Multivitamin 1 tab PO HS 05/17/16 06/26/16 (formulary)] Omeprazole [PriLOSEC] 20 mg PO DAILY 05/17/16 06/26/16 Collagenase [Santyl] 1 applic TOPICAL Q72H 06/26/16 06/26/16 Gabapentin [Neurontin] 300 mg PO TID 06/26/16 06/26/16 Ondansetron [Zofran] 4 mg PO Q8HR PRN 06/26/16 06/26/16 Phenergan Solution 25mg/Ml 0.5 ml IM Q6H PRN 06/26/16 06/26/16 Potassium Chloride [K-Tab ER] 40 meq PO ONCE 06/26/16 06/26/16 Pravastatin Sodium [Pravachol] 40 mg PO HS 06/26/16 06/26/16 Scopolamine 1.5MG/72Hr Patch 1 patch TOPICAL Q72H PRN 06/26/16 06/26/16 [TransDerm Scop] amLODIPine [Norvasc] 10 mg PO DAILY 06/26/16 06/26/16 Previous Rx's Medication Instructions Recorded Darbepoetin Pascual [Aranesp] 40 mcg SQ Q7D syringe 05/29/16 Ipratropium-Albuterol Nebulize 3 ml INHALATION RT-QID ampul.neb 05/29/16 [Duoneb 0.5 mg-3 mg/3 ml Soln] Aspirin EC [Ecotrin Low Dose] 81 mg PO DAILY #1 tablet. 06/02/16 DAPTOmycin [Cubicin] 800 mg IV Q48H #1 vial 06/02/16 Folic Acid 1 mg PO DAILY #30 tablet 06/02/16 HYDROcodone/APAP 5-325MG [Magee 1 tab PO Q6H PRN #30 tab 06/02/16 5-325] Ipratropium-Albuterol Nebulize 3 ml INHALATION Q4H PRN #0 06/02/16 [Duoneb 0.5 mg-3 mg/3 ml Soln] ampul.neb Rifampin [Rifadin] 300 mg PO BID #1 capsule 06/02/16 Sodium Bicarbonate Tab 650 mg PO TID #1 tablet 06/02/16 Thiamine [Vitamin B-1] 100 mg PO DAILY #30 tablet 06/02/16 metroNIDAZOLE [Flagyl] 500 mg PO Q8H #171360 tab 06/02/16 Ciprofloxacin HCl [Cipro] 250 mg PO Q12HR #14 tablet 06/26/16 Allergies Allergy/AdvReac Type Severity Reaction Status Date / Time cinnamon Allergy Rash/Hives Verified 07/01/16 14:50 Review of Systems ROS Statement: Those systems with pertinent positive or pertinent negative responses have been documented in the HPI. ROS Other: All systems not noted in ROS Statement are negative. 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 Operating room debridemint of stage IV decubitus ulcer sacrum Past Anesthesia/Blood Transfusion Reactions: No Reported Reaction Additional Past Anesthesia/Blood Transfusion Reaction / Comment(s): NEVER HAD ANY GENERAL AA ONLY LOCAL FOR DENTAL WORK. Past Psychological History: No Psychological Hx Reported Additional Psychological History / Comment(s): . Smoking Status: Never smoker Past Alcohol Use History: None Reported Additional Past Alcohol Use History / Comment(s): Patient is a lifelong nonsmoker. She denies any alcohol abuse. Prior to being at [facility], she was living with her boyfriend. Past Drug Use History: None Reported - Past Family History Father History Unknown: Yes Additional Family Medical History / Comment(s): PTS DAD LIVED IN [place]- SHE 'S NOT SURE WHAT HE FROM Mother Family Medical History: Coronary Artery Disease (CAD), Diabetes Mellitus, Hyperlipidemia, Hypertension Additional Family Medical History / Comment(s): CARDIAC STENTS General Exam Limitations: no limitations General appearance: alert, in no apparent distress Head exam: Present: atraumatic Eye exam: Present: normal appearance ENT exam: Present: mucous membranes dry Neck exam: Present: normal inspection Respiratory exam: Present: normal lung sounds bilaterally Cardiovascular Exam: Present: regular rate, normal rhythm GI/Abdominal exam: Present: soft. Absent: tenderness Extremities exam: Present: pedal edema (Patient states chronic) Neurological exam: Present: alert, other (Left facial weakness. Left arm weakness. Patient states this is chronic) Psychiatric exam: Present: normal affect, normal mood Skin exam: Absent: rash Course Vital Signs 07/01/16 14:45 Temperature 98.8 F Pulse Rate 103 H Respiratory 18 Rate Blood Pressure 152/79 O2 Sat by Pulse 98 Oximetry Medical Decision Making - Medical Decision Making Case discussed with Dr. Waters, who will admit for Dr. Mojica. Disposition Clinical Impression: Hemorrhage from dialysis catheter, Multiple sclerosis, End stage renal failure on dialysis Disposition: ADMITTED IP TO THIS [facility] Time of Disposition: 14:57
[2016-07-01 15:43] VITALS: RESP 16
[2016-07-01] MEDS: SODIUM CHLORIDE 0.9% 1,000 ML IV SCH (15:44)
--- NOTE | 2016-07-01 18:24 | HP ---
DATE OF ADMISSION: 07/01/2016 Patient is a 46 -year-old pleasant female known to me from past admission, transferred from [facility] for evaluation for vascular surgery and nephrology evaluation. The patient had hemodialysis today at that time, in spite of multiple attempts, patient was bleeding from the hemodialysis catheter site. The patient was put on hemodialysis a couple of months ago and the patient will need vascular surgery evaluation. The patient denied any fever or chills. Patient denied any nausea, vomiting. Patient was treated in the recent past for bacteremia and patient has multiple sclerosis with decubitus ulcer. Patient denied any new weakness or pain related to multiple sclerosis. Patient is a very pleasant female. The patient denied any cough, runny nose, dysuria. Home medications include: 1. Baclofen. 2. ( ). 3. ( ). 4. ( ) supplementation. 5. ( ). 6. Acetaminophen. 7. Multivitamins. 8. Omeprazole. 9. ( ). 10. Gabapentin. 11. Ondansetron. 12. Phenergan. 13. Potassium chloride. 14. Simvastatin. 15. ( ). 16. Amlodipine. 17. ( ). 18. ( ). 19. Ipratropium. 20. Aspirin. 21. Daptomycin. 22. The patient continues to be on Daptomycin since last admission 800 mg IV q.8 hourly. 23. Folic acid. 24. Hydrocodone. 25. Acetaminophen. 26. ( ). 27. Albuterol. 28. Rifampin. 29. Sodium bicarbonate. 30. Tigan. 31. Metronidazole. 32. Ciprofloxacin because of bacteremia with multiple organisms during his last hospitalization. The patient was pretty sick at that time. ALLERGIES: CINNAMON. REVIEW OF SYSTEMS: CONSTITUTIONAL: No fever, no malaise, no fatigue. HEENT: No recent visual problems or hearing problems. Denied any sore throat. CARDIOVASCULAR: No chest pain, orthopnea, PND, no palpitations, no syncope. PULMONARY: No shortness of breath, no cough, no hemoptysis. GASTROINTESTINAL: No diarrhea, no nausea, no vomiting, no abdominal pain. Normoactive bowel sounds. NEUROLOGICAL: No headaches, no weakness, no numbness. HEMATOLOGICAL: Denies any bleeding or petechiae. GENITOURINARY: Denies any burning micturition, frequency, or urgency. MUSCULOSKELETAL/RHEUMATOLOGICAL: Denies any joint pain, swelling, or any muscle pain. ENDOCRINE: Denies any polyuria or polydipsia. The rest of the 14 point review of systems is negative. 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 SOCIAL HISTORY: Denied any smoking, alcohol abuse or any drug abuse. FAMILY HISTORY: Father's history is unknown. Mother had coronary artery disease, diabetes mellitus, hyperlipidemia. PHYSICAL EXAMINATION: Temperature 98.8, pulse of 103, respiratory rate 18. Blood pressure is 152/79, saturating at 98% on room air. GENERAL: The patient is alert and oriented x3, not in any acute distress. Well developed, well nourished. HEENT: Pupils are round and equally reacting to light. EOMI. No scleral icterus. No conjunctival pallor. Normocephalic, atraumatic. No pharyngeal erythema. No thyromegaly. CARDIOVASCULAR: S1 and S2 present. No murmurs, rubs, or gallops. PULMONARY: Chest is clear to auscultation, no wheezing or crackles. ABDOMEN: Soft, nontender, nondistended, normoactive bowel sounds. No palpable organomegaly. MUSCULOSKELETAL: No joint swelling or deformity. EXTREMITIES: No cyanosis, clubbing, or pedal edema. NEUROLOGICAL: Neurological no change. Dermatologic: I wanted to examine her sacrum which was not done because of not enough staff present at the time of evaluation. No new focal neurological deficits were appreciated. The patient in fact has a right subclavian central line for hemodialysis. Laboratory data was reviewed. No significant abnormalities were appreciated. ASSESSMENT AND PLAN: 1. End stage renal disease malfunctioning hemodialysis catheter. Patient will need vascular surgery evaluation. Recent bacteremia and sepsis. Patient continues to be on antibiotics, this will be Daptomycin, ciprofloxacin and metronidazole which will be continued here. 2. Multiple sclerosis, no new weakness. The patient will be continued on her home medications including support medications. 3. Sacral decubitus ulcer for which local wound care will examine the wound tomorrow morning during my rounds. 4. Hyperlipidemia. 5. Hypertension. 6. Peripheral neuropathy. For above-mentioned chronic medical problems, I will go ahead and continue her home medications. Patient probably will be admitted as an observation and if her decubitus ulcer is okay which does not appear to be infected, patient probably can be discharged tomorrow after hemodialysis if okay by nephrology. Nephrology will be consulted as well.
[2016-07-01] MEDS ORDERED: PROMETHAZINE INJ 25 MG/ML 1 ML VIAL IM PRN (20:52)
[2016-07-01] MEDS ORDERED: SCOPOLAMINE 1.5MG/72HR PATCH TRANSDERM PRN (20:52)
[2016-07-01] MEDS ORDERED: BISACODYL 10 MG SUPP RECTAL PRN (20:52)
[2016-07-01] MEDS ORDERED: ONDANSETRON 4 MG TAB PO PRN (20:52)
[2016-07-01] MEDS ORDERED: IPRATROPIUM-ALBUTEROL 3 ML NEB INHALATION PRN (20:52)
[2016-07-01] MEDS ORDERED: BACLOFEN 10 MG TAB PO PRN (20:52)
[2016-07-01] MEDS ORDERED: COLLAGENASE 250 UNIT/GM OINTMENT 30 GM TUBE TOPICAL PRN (20:52)
[2016-07-01] MEDS ORDERED: ACETAMINOPHEN TAB 325 MG TAB PO PRN (20:52)
[2016-07-01] MEDS ORDERED: DAPTOmycin 500 MG VIAL IV SCH (21:00)
[2016-07-01] MEDS ORDERED: NON-FORMULARY DRUG (Amino Acids/Protein Hydrolys [Pro-Stat Supplement] 30 ML) PO SCH (22:00)
[2016-07-01] MEDS: GABAPENTIN 300 MG CAP PO SCH (22:23)
[2016-07-01] MEDS: MULTIVITAMINS, THERA 1 EACH TAB PO SCH (22:23)
[2016-07-01] MEDS: PRAVASTATIN SODIUM 40 MG TAB PO SCH (22:24)
[2016-07-01] MEDS: RIFAMPIN 300 MG CAP PO SCH (22:24)
[2016-07-01] MEDS: MENTHOL-ZINC OXIDE OINT 113 GM TUBE TOPICAL SCH (22:24)
[2016-07-01] MEDS: SODIUM BICARBONATE TAB 650 MG TAB PO SCH (22:24)
[2016-07-01] MEDS: metroNIDAZOLE 500 MG TAB PO SCH (23:00)
[2016-07-02] MEDS: IPRATROPIUM-ALBUTEROL 3 ML NEB INHALATION SCH ×4 (07:50→20:12)
[2016-07-02] MEDS: SODIUM BICARBONATE TAB 650 MG TAB PO SCH (09:36)
[2016-07-02] MEDS: THIAMINE 100 MG TAB PO SCH (09:37)
[2016-07-02] MEDS: amLODIPine 10 MG TAB PO SCH (09:37)
[2016-07-02] MEDS: metroNIDAZOLE 500 MG TAB PO SCH ×2 (09:37→17:29)
[2016-07-02] MEDS: RIFAMPIN 300 MG CAP PO SCH ×2 (09:37→22:26)
[2016-07-02] MEDS: GABAPENTIN 300 MG CAP PO SCH ×2 (09:37→22:26)
[2016-07-02] MEDS: PANTOPRAZOLE 40 MG TABLET PO SCH (09:38)
[2016-07-02] MEDS: ASPIRIN 81 MG CHEW PO SCH (09:38)
[2016-07-02] MEDS: MENTHOL-ZINC OXIDE OINT 113 GM TUBE TOPICAL SCH ×3 (09:38→21:27)
[2016-07-02] MEDS: HYDROcodone/APAP 5-325MG 1 EACH TAB PO PRN ×3 (09:47→22:23)
[2016-07-02 09:49] LABS: Basophils % (A) 0 %; CH 25.7; CHCM 30.2; Eosinophils # (A) 0.1 k/uL (0-0.7); Eosinophils % (A) 2 %; HCT 21.9 % (34.0-46.0); HDW 3.01; Hypochromasia Marked; Luc # (Auto) 0.16; Luc % (Auto) 3; Lymphocytes # (A) 0.9 k/uL (1.0-4.8); Lymphocytes % (A) 17 %; MCH 27.2 pg (25.0-35.0); MCHC 31.7 g/dL (31.0-37.0); MCV 85.7 fL (80.0-100.0); Mean Platelet Volume 6.6; Monocytes # (A) 0.1 k/uL (0-1.0); Monocytes % (A) 3 %; Neutrophils # (A) 3.9 k/uL (1.3-7.7); Neutrophils % (A) 76 %; RBC 2.56 m/uL (3.80-5.40); RDW 15.6 % (11.5-15.5); WBC 5.2 k/uL (3.8-10.6); WBC (Perox) 5.54
[2016-07-02 09:52] LABS: INR 1.2 (<1.1); Prothrombin Time 12.2 sec (9.0-12.0)
[2016-07-02 10:09] LABS: Phosphorous 4.6 mg/dL (2.5-4.5); Potassium 3.5 mmol/L (3.5-5.1); Total Bilirubin 0.4 mg/dL (0.2-1.3); Total Protein 6.1 g/dL (6.3-8.2)
[2016-07-02 10:24] LABS: Calcium 8.8 mg/dL (8.4-10.2)
[2016-07-02] MEDS: FOLIC ACID 1 MG TAB PO SCH (11:28)
[2016-07-02] MEDS: NON-FORMULARY DRUG (Dimethyl Fumarate [Tecfidera] 240 MG) PO SCH (14:01)
--- NOTE | 2016-07-02 15:00 | DS ---
DATE OF ADMISSION: 07/01/2016 DATE OF DISCHARGE: Patient is a 46-year-old, was sent in here from [facility] for vascular surgery evaluation for possibility of bleed from the hemodialysis catheter site and patient's catheter site is fine and patient will be evaluated by Vascular Surgery. After evaluation by Vascular Surgery and Nephrology, patient will be subsequently discharged. Patient had other multiple medical issues going on at this point of time and discussed the case with Nephrology today and patient may not need dialysis permanently. They are going to evaluate and decide on continuation of hemodialysis or not depending on her previous creatinine, presently 3. Patient has hemoglobin of 7, no acute GI bleed. Patient has normocytic anemia, probably anemia of chronic kidney disease and patient was given 1 unit of blood and patient will be discharged today after the 1 unit of blood transfusion per Nephrology and Vascular Surgery. Patient was seen and examined on the day of discharge. Vitals are stable. PHYSICAL EXAMINATION: GENERAL: The patient is alert and oriented x3, not in any acute distress. Well developed, well nourished. HEENT: Pupils are round and equally reacting to light. EOMI. No scleral icterus. No conjunctival pallor. Normocephalic, atraumatic. No pharyngeal erythema. No thyromegaly. CARDIOVASCULAR: S1 and S2 present. No murmurs, rubs, or gallops. PULMONARY: Chest is clear to auscultation, no wheezing or crackles. ABDOMEN: Soft, nontender, nondistended, normoactive bowel sounds. No palpable organomegaly. MUSCULOSKELETAL: No joint swelling or deformity. EXTREMITIES: No cyanosis, clubbing, or pedal edema. NEUROLOGICAL: No new focal neurological deficits. DERMATOLOGIC: patient has stage IV sacral decubitus ulcer. LABORATORY DATA: Significant ones described above. ASSESSMENT AND PLAN: 1. Endstage renal disease. 2. Malfunctioning hemodialysis catheter. PLAN: As mentioned above. Sacral decubitus ulcer with recent bacteremia and sepsis for which patient is on daptomycin, Cipro and metronidazole which she will continue and complete the course of therapy, multiple sclerosis without any new weakness or symptoms, hyperlipidemia, hypertension, peripheral neuropathy. Patient will be discharged today. Patient will follow with Dr. Chace Mojica in the subacute rehab. Activity as tolerated. Follow up with Nephrology as scheduled. Spent greater than 35 minutes in total discharge process.
--- NOTE | 2016-07-02 15:32 | P.NPCON ---
History of Present Illness - Reason for Consult acute renal failure - History of Present Illness Reason for consultation: Acute kidney injury History of present illness: Patient is a 46-year-old female seen in follow-up for acute kidney injury which is dialysis dependent. She is maintained on hemodialysis on a Wednesday schedule. Etiology is septic ATN. Patient went for dialysis yesterday and was noted to have bleeding around the catheter site. Her hemoglobin at the time of presentation was 7.0. She scheduled to receive 1 unit of packed red blood cell transfusion today. Her last hemodialysis was Wednesday and at that time creatinine was 2.6. It is elevated at 3.0 today. Patient has a chronic Chaves catheter and states she does not urinate much. She denies chest pain or shortness of breath. No vomiting or diarrhea. Vital signs are stable. General: The patient appeared well nourished and normally developed. HEENT: Head exam is unremarkable. Neck is without jugular venous distension. LUNGS: Lungs are clear to auscultation and percussion. Breath sounds decreased. HEART: Rate and Rhythm are regular. First and second heart sounds normal. No murmurs, rubs or gallops. ABDOMEN: Abdominal exam reveals normal bowel sounds. Non-tender and non- distended. No evidence of peritonitis. EXTREMITITES: 1+ edema. 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 Operating room debridemint of stage IV decubitus ulcer sacrum , MELI, HEMODIALYSIS PERMACATH Past Anesthesia/Blood Transfusion Reactions: No Reported Reaction Additional Past Anesthesia/Blood Transfusion Reaction / Comment(s): NEVER HAD ANY GENERAL AA ONLY LOCAL FOR DENTAL WORK. Past Psychological History: No Psychological Hx Reported Additional Psychological History / Comment(s): . Smoking Status: Never smoker Past Alcohol Use History: None Reported Additional Past Alcohol Use History / Comment(s): Patient is a lifelong nonsmoker. She denies any alcohol abuse. Prior to being at [facility], she was living with her boyfriend. Past Drug Use History: None Reported - Past Family History Father History Unknown: Yes Additional Family Medical History / Comment(s): PTS DAD LIVED IN [place]- SHE 'S NOT SURE WHAT HE FROM Mother Family Medical History: Coronary Artery Disease (CAD), Diabetes Mellitus, Hyperlipidemia, Hypertension Additional Family Medical History / Comment(s): CARDIAC STENTS Medications and Allergies Home Medications Medication Instructions Recorded Confirmed Type Baclofen [Lioresal] 10 mg PO Q8H PRN 11/17/13 07/01/16 History Dimethyl Fumarate [Tecfidera] 240 mg PO BID 09/27/15 07/01/16 History Amino Acids/Protein Hydrolys 30 ml PO TID 04/23/16 07/01/16 History [Pro-Stat Supplement] Bisacodyl [Dulcolax] 10 mg RECTAL Q72H PRN 04/23/16 07/01/16 History Acetaminophen Tab [Tylenol] 650 mg PO Q6HR PRN MDD 3 GRAMS OF 05/17/16 07/01/16 History APAP Multivitamins, Thera [Multivitamin 1 tab PO HS 05/17/16 07/01/16 History (formulary)] Omeprazole [PriLOSEC] 20 mg PO DAILY 05/17/16 07/01/16 History Collagenase [Santyl] 1 applic TOPICAL Q72H PRN 06/26/16 07/01/16 History Gabapentin [Neurontin] 300 mg PO BID 06/26/16 07/01/16 History Ondansetron [Zofran] 4 mg PO Q8HR PRN 06/26/16 07/01/16 History Phenergan Solution 25mg/Ml 0.5 ml IM Q6H PRN 06/26/16 07/01/16 History Pravastatin Sodium [Pravachol] 40 mg PO HS 06/26/16 07/01/16 History Scopolamine 1.5MG/72Hr Patch 1 patch TOPICAL Q72H PRN 06/26/16 07/01/16 History [TransDerm Scop] amLODIPine [Norvasc] 10 mg PO DAILY 06/26/16 07/01/16 History DAPTOmycin [Cubicin] 800 mg IV MOWEFR 07/01/16 07/01/16 History Darbepoetin Pascual [Aranesp] 40 mcg SQ TU 07/01/16 07/01/16 History HYDROcodone/APAP 5-325MG [Murray 1 tab PO Q6H PRN 07/01/16 07/01/16 History 5-325] Ipratropium-Albuterol Nebulize 3 ml INHALATION RT-Q4H PRN 07/01/16 07/01/16 History [Duoneb 0.5 mg-3 mg/3 ml Soln] Menthol/Zinc Oxide [Calmoseptine 1 applic TOPICAL TID 07/01/16 07/01/16 History Ointment] Allergies Allergy/AdvReac Type Severity Reaction Status Date / Time cinnamon Allergy Rash/Hives Verified 07/01/16 17:17 Physical Exam Vitals: Vital Signs Temp Pulse Pulse Resp BP BP Pulse Ox 07/02/16 14:27 97.4 F L 83 16 114/69 100 07/02/16 08:00 84 07/02/16 07:50 76 07/02/16 07:00 98.0 F 88 16 125/72 99 07/01/16 23:00 97.6 F 96 16 144/95 97 07/01/16 19:50 98.0 F 99 16 142/76 99 07/01/16 18:47 107 H 16 142/80 96 07/01/16 15:41 98.8 F 106 H 16 132/73 99 Intake and Output 07/02/16 07/02/16 07/02/16 06:59 14:59 22:59 Output Total 150 Balance -150 Output: Urine 150 Other: Voiding Method Indwelling Catheter Indwelling Catheter # Voids 1 # Bowel Movements 1 Results - Lab Results Most recent lab results Calcium 8.8 mg/dL (8.4-10.2) 07/02/16 08:54 Phosphorus 4.6 mg/dL (2.5-4.5) H 07/02/16 08:54 Magnesium 2.0 mg/dL (1.6-2.3) 07/02/16 08:54 07/02/16 08:54 07/02/16 08:54 Assessment and Plan Plan: Assessment: #1. Dialysis-dependent acute kidney injury maintained on hemodialysis on a Wednesday schedule. Last hemodialysis was on June 29. Etiology is septic ATN. #2. Anemia with bleeding around the permacatheter site. Scheduled to receive 1 unit of blood today. #3. Recent MRSA bacteremia maintained on daptomycin. Plan: Transfuse 1 unit of packed red blood cell today. Strict I's and O's. Start Aranesp. Repeat BMP in the morning. If renal function worsened will resume hemodialysis. Otherwise she can be discharged with close monitoring of labs as an outpatient. Thank you for the consultation. I will continue to follow the patient with you during her hospital stay.
[2016-07-02] MEDS: SODIUM CHLORIDE 0.9% 1,000 ML IV SCH (16:50)
[2016-07-02] MEDS: MULTIVITAMINS, THERA 1 EACH TAB PO SCH (22:27)
[2016-07-02] MEDS: PRAVASTATIN SODIUM 40 MG TAB PO SCH (22:27)
[2016-07-03] MEDS ORDERED: metroNIDAZOLE 500 MG TAB ONE (00:25)
[2016-07-03 07:45] VITALS: TEMP 97.4
[2016-07-03] MEDS: IPRATROPIUM-ALBUTEROL 3 ML NEB INHALATION SCH (08:05)
[2016-07-03 08:15] VITALS: PULSE 84
[2016-07-03] MEDS ORDERED: SODIUM BICARBONATE TAB 650 MG TAB PO SCH (09:00)
[2016-07-03 09:22] LABS: Calcium 8.4 mg/dL (8.4-10.2); Potassium 3.5 mmol/L (3.5-5.1)
[2016-07-03] MEDS: MENTHOL-ZINC OXIDE OINT 113 GM TUBE TOPICAL SCH ×2 (09:32→17:09)
[2016-07-03] MEDS: amLODIPine 10 MG TAB PO SCH (09:32)
[2016-07-03] MEDS: PANTOPRAZOLE 40 MG TABLET PO SCH (09:33)
[2016-07-03] MEDS: ASPIRIN 81 MG CHEW PO SCH (09:33)
[2016-07-03] MEDS: GABAPENTIN 300 MG CAP PO SCH (09:33)
[2016-07-03] MEDS: RIFAMPIN 300 MG CAP PO SCH (09:33)
[2016-07-03] MEDS: THIAMINE 100 MG TAB PO SCH (09:34)
[2016-07-03] MEDS: metroNIDAZOLE 500 MG TAB PO SCH ×3 (09:34→15:32)
[2016-07-03] MEDS: HYDROcodone/APAP 5-325MG 1 EACH TAB PO PRN ×2 (09:38→15:40)
--- NOTE | 2016-07-03 11:30 | PN ---
Patient is seen for followup for acute kidney injury, currently dialysis dependent. Her serum creatinine has increased from 3 to 3.3 and urine output although she is making much more urine than previously it is only about 400 mL for 24 hours. We will arrange for hemodialysis today after which patient can be discharged. She is recovering and she will need to be continually monitored as outpatient for recovery of renal function. On examination, blood pressure is 121/84, heart rate 84 per minute. She is afebrile. EXAMINATION OF THE HEART: S1 and S2. EXAMINATION OF THE LUNGS: Decreased breath sounds in bases. ABDOMEN: Soft, nontender. Examination of lower extremities shows trace edema. [employer] exam is grossly intact. Labs show potassium 3.5, sodium 131, BUN 26, serum creatinine 3.3. Hemoglobin at 7.0 g/dL. ASSESSMENT: 1. Acute kidney injury, currently hemodialysis dependent. Will arrange for hemodialysis today and continue to monitor for recovery of renal function as outpatient. 2. Anemia with no active bleeding noted. I will give her a dose of Aranesp today prior to discharge. 3. History of methicillin-resistant Staphylococcus aureus sacral wound and osteomyelitis, maintained on daptomycin. 4. Multiple sclerosis. PLAN: Hemodialysis today. Continue to monitor as an outpatient for recovery of renal function. Continue with Aranesp for now.
[2016-07-03] MEDS: FOLIC ACID 1 MG TAB PO SCH (13:07)
[2016-07-03 14:55] VITALS: BP 148/73
[2016-07-03] MEDS: SODIUM CHLORIDE 0.9% 1,000 ML IV SCH (15:32)
--- NOTE | 2016-07-04 11:32 | DS ---
DATE OF ADMISSION: 07/01/2016 DATE OF DISCHARGE: 07/03/2016 The patient is a 46-year-old admitted for vascular surgery evaluation and patient will not need any replacement of her dialysis catheter. Patient was discharged from my service yesterday, but ended up staying here because there was a question about whether she will need dialysis at all. Patient was monitored overnight and patient's creatinine did go up and patient's sodium has gone down, probably hypovolemic hyponatremia. Patient is getting hemodialysis today. After that hemodialysis, patient will be discharged today. Patient was seen and examined on the day of discharge. Vitals are stable. No change in physical examination findings. Please refer to my discharge summary from yesterday for further details of discharge. Please consider my yesterday's discharge summary as progress note.
[2016-07-07] MEDS ORDERED: DARBEPOETIN ALFA 40 MCG/0.4 ML SYRINGE SQ SCH (12:00)
== END 2016-07-03 17:14 ==
LOC: EC 14:40 → 4MS4W 14:58
PROVIDERS: ADMIT Internal Medicine; ATTEND Internal Medicine
DX: T82.41XA Breakdown (mechanical) of vascular dialysis catheter, initial encounter (principal); I12.0 Hypertensive chronic kidney disease with stage 5 chronic kidney disease or end stage renal disease; N18.6 End stage renal disease; N17.0 Acute kidney failure with tubular necrosis; M46.28 Osteomyelitis of vertebra, sacral and sacrococcygeal region; D64.9 Anemia, unspecified; E78.5 Hyperlipidemia, unspecified; G35 Multiple sclerosis; G62.9 Polyneuropathy, unspecified; Z79.82 Long term (current) use of aspirin; K21.9 Gastro-esophageal reflux disease without esophagitis; L89.159 Pressure ulcer of sacral region, unspecified stage; R78.81 Bacteremia; Y71.2 Prosthetic and other implants, materials and accessory cardiovascular devices associated with adverse incidents; Z79.899 Other long term (current) drug therapy; Z99.2 Dependence on renal dialysis; Z86.14 Personal history of Methicillin resistant Staphylococcus aureus infection; Z79.2 Long term (current) use of antibiotics
CPT/HCPCS: 99285 ×2; 94640 ×2; 86900; 86901; 80053; 80048; 83605; 83735; 84100; 85025; 85610; 86850; 86920; G0378 ×3; P9016; J0878; 90935; 96365

== ENCOUNTER 2016-08-22 02:08 | Observation (INO) | payer OTHER ==
[2016-08-22 03:06] LABS: Basophils % (A) 0 %; CH 26.8; CHCM 31.6; Eosinophils # (A) 0.2 k/uL (0-0.7); Eosinophils % (A) 2 %; HCT 21.3 % (34.0-46.0); HDW 3.66; Hypochromasia Moderate; Luc # (Auto) 0.34; Luc % (Auto) 5; Lymphocytes % (A) 13 %; MCH 26.7 pg (25.0-35.0); MCHC 31.3 g/dL (31.0-37.0); Mean Platelet Volume 6.8; Monocytes # (A) 0.3 k/uL (0-1.0); Monocytes % (A) 4 %; Neutrophils # (A) 5.8 k/uL (1.3-7.7); Neutrophils % (A) 76 %; Poikilocytosis Slight; RDW 15.3 % (11.5-15.5); WBC 7.6 k/uL (3.8-10.6); WBC (Perox) 7.94
[2016-08-22 03:14] LABS: HGB 6.7 gm/dL (11.4-16.0)
[2016-08-22 03:57] LABS: ALT 16 U/L (9-52); AST 10 U/L (14-36); Alkaline Phosphatase 61 U/L (38-126); Anion Gap 9 mmol/L; Blood Urea Nitrogen 26 mg/dL (7-17); Calcium 9.2 mg/dL (8.4-10.2); Carbon Dioxide 26 mmol/L (22-30); Chloride 102 mmol/L (98-107); Glucose 89 mg/dL (74-99); Non-African American GFR(MDRD) 54 (>60 ml/min/1.73 sqM); Potassium 4.1 mmol/L (3.5-5.1); Sodium 137 mmol/L (137-145); Total Bilirubin 0.2 mg/dL (0.2-1.3); Total Protein 5.8 g/dL (6.3-8.2)
[2016-08-22 05:13] LABS: INR 1.1 (<1.1); Partial Thromboplastin Time 24.1 sec (22.0-30.0)
[2016-08-22] MEDS ORDERED: NALOXONE 0.4 MG/ML 1 ML VIAL IV PRN (06:43)
[2016-08-22] MEDS ORDERED: ONDANSETRON 4 MG/2 ML VIAL IVP PRN (06:43)
[2016-08-22] MEDS ORDERED: ACETAMINOPHEN TAB 325 MG TAB PO PRN ×2 (06:43→12:53)
[2016-08-22] MEDS ORDERED: SODIUM CHLORIDE 0.9% 1,000 ML IV SCH (06:45)
--- NOTE | 2016-08-22 06:49 | ED ---
Recheck HPI - General Chief Complaint: Recheck/Abnormal Lab/Rx Stated Complaint: GI Bleed Time Seen by Provider: 08/22/16 02:19 Source: patient Mode of arrival: EMS Limitations: no limitations - History of Present Illness Initial Comments: Patient's a 46-year-old woman sent from the long-term care facility after they had checked her hemoglobin and found it to be less than 7. The patient denies any new complaints. She is currently denying chest pain, dyspnea, diaphoresis. She has not noticed any bloody bowel movements. MD Complaint: abnormal lab -: days(s) - Related Data Home Medications Medication Instructions Recorded Confirmed Baclofen [Lioresal] 10 mg PO Q8H PRN 11/17/13 07/01/16 Dimethyl Fumarate [Tecfidera] 240 mg PO BID 09/27/15 07/01/16 Amino Acids/Protein Hydrolys 30 ml PO TID 04/23/16 07/01/16 [Pro-Stat Supplement] Bisacodyl [Dulcolax] 10 mg RECTAL Q72H PRN 04/23/16 07/01/16 Acetaminophen Tab [Tylenol] 650 mg PO Q6HR PRN MDD 3 GRAMS OF 05/17/16 07/01/16 APAP Multivitamins, Thera [Multivitamin 1 tab PO HS 05/17/16 07/01/16 (formulary)] Omeprazole [PriLOSEC] 20 mg PO DAILY 05/17/16 07/01/16 Collagenase [Santyl] 1 applic TOPICAL Q72H PRN 06/26/16 07/01/16 Gabapentin [Neurontin] 300 mg PO BID 06/26/16 07/01/16 Ondansetron [Zofran] 4 mg PO Q8HR PRN 06/26/16 07/01/16 Phenergan Solution 25mg/Ml 0.5 ml IM Q6H PRN 06/26/16 07/01/16 Pravastatin Sodium [Pravachol] 40 mg PO HS 06/26/16 07/01/16 Scopolamine 1.5MG/72Hr Patch 1 patch TOPICAL Q72H PRN 06/26/16 07/01/16 [TransDerm Scop] amLODIPine [Norvasc] 10 mg PO DAILY 06/26/16 07/01/16 DAPTOmycin [Cubicin] 800 mg IV MOWEFR 07/01/16 07/01/16 Darbepoetin Pascual [Aranesp] 40 mcg SQ TU 07/01/16 07/01/16 HYDROcodone/APAP 5-325MG [[place] 1 tab PO Q6H PRN 07/01/16 07/01/16 5-325] Ipratropium-Albuterol Nebulize 3 ml INHALATION RT-Q4H PRN 07/01/16 07/01/16 [Duoneb 0.5 mg-3 mg/3 ml Soln] Menthol/Zinc Oxide [Calmoseptine 1 applic TOPICAL TID 07/01/16 07/01/16 Ointment] Previous Rx's Medication Instructions Recorded Ipratropium-Albuterol Nebulize 3 ml INHALATION RT-QID ampul.neb 05/29/16 [Duoneb 0.5 mg-3 mg/3 ml Soln] Aspirin EC [Ecotrin Low Dose] 81 mg PO DAILY #1 tablet. 06/02/16 Folic Acid 1 mg PO DAILY #30 tablet 06/02/16 Rifampin [Rifadin] 300 mg PO BID #1 capsule 06/02/16 Sodium Bicarbonate Tab 650 mg PO TID #1 tablet 06/02/16 Thiamine [Vitamin B-1] 100 mg PO DAILY #30 tablet 06/02/16 metroNIDAZOLE [Flagyl] 500 mg PO Q8H #[id number] tab 06/02/16 Allergies Allergy/AdvReac Type Severity Reaction Status Date / Time cinnamon Allergy Rash/Hives Verified 07/01/16 17:17 Review of Systems ROS Statement: Those systems with pertinent positive or pertinent negative responses have been documented in the HPI. ROS Other: All systems not noted in ROS Statement are negative. Limitations: ROS unobtainable due to patients medical condition Constitutional: Denies: fever, chills, weakness Respiratory: Denies: cough, dyspnea Cardiovascular: Denies: chest pain, palpitations, syncope Gastrointestinal: Denies: abdominal pain, vomiting, diarrhea, hematochezia Musculoskeletal: Denies: back pain Neurological: Denies: headache, weakness Past Medical History Past Medical History: Blood Disorder, Dialysis, Hyperlipidemia, Musculoskeletal Disorder, Neurologic Disorder, Pneumonia, Renal Disease Additional Past Medical History / Comment(s): gait dysfunction, MS, stage IV sacral osteomyelitis, UTI History of Any Multi-Drug Resistant Organisms: MRSA, VRE Date of last positivie culture/infection: 05/22/16 MRSA; 05/18/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 Operating room debridemint of stage IV decubitus ulcer sacrum , MELI, HEMODIALYSIS PERMACATH Past Anesthesia/Blood Transfusion Reactions: No Reported Reaction Additional Past Anesthesia/Blood Transfusion Reaction / Comment(s): NEVER HAD ANY GENERAL AA ONLY LOCAL FOR DENTAL WORK. Past Psychological History: No Psychological Hx Reported Additional Psychological History / Comment(s): . Smoking Status: Never smoker Past Alcohol Use History: None Reported Additional Past Alcohol Use History / Comment(s): Patient is a lifelong nonsmoker. She denies any alcohol abuse. Prior to being at [facility], she was living with her boyfriend. Past Drug Use History: None Reported - Past Family History Father History Unknown: Yes Additional Family Medical History / Comment(s): PTS DAD LIVED IN [place]- SHE 'S NOT SURE WHAT HE FROM Mother Family Medical History: Coronary Artery Disease (CAD), Diabetes Mellitus, Hyperlipidemia, Hypertension Additional Family Medical History / Comment(s): CARDIAC STENTS General Exam Limitations: no limitations General appearance: alert, in no apparent distress Head exam: Present: atraumatic, normocephalic Eye exam: Present: normal appearance, other (Conjunctival pallor). Absent: scleral icterus, conjunctival injection ENT exam: Present: other (Mucosal pallor) Respiratory exam: Present: normal lung sounds bilaterally. Absent: respiratory distress, wheezes, rales, rhonchi, stridor Cardiovascular Exam: Present: normal rhythm, tachycardia (Rate approximately 14 bpm), normal heart sounds GI/Abdominal exam: Present: soft. Absent: distended, tenderness, guarding, rebound, mass Extremities exam: Present: normal inspection, normal capillary refill. Absent: pedal edema, calf tenderness Skin exam: Present: warm, dry, intact. Absent: pallor Course Vital Signs 08/22/16 08/22/16 08/22/16 02:18 04:06 04:53 Temperature 98.1 F 98.5 F Pulse Rate 103 H 113 H 111 H Respiratory 20 18 18 Rate Blood Pressure 114/70 110/66 110/72 O2 Sat by Pulse 100 97 100 Oximetry 08/22/16 05:50 Temperature Pulse Rate 113 H Respiratory 18 Rate Blood Pressure 129/62 O2 Sat by Pulse 100 Oximetry Medical Decision Making - Lab Data Result diagrams: 08/22/16 02:29 08/22/16 02:29 Lab Results 08/22/16 08/22/16 08/22/16 Range/Units 02:29 02:29 02:29 WBC 7.6 (3.8-10.6) k/uL RBC 2.50 L (3.80-5.40) m/uL Hgb 6.7 L* (11.4-16.0) gm/dL Hct 21.3 L (34.0-46.0) % MCV 85.0 (80.0-100.0) fL MCH 26.7 (25.0-35.0) pg MCHC 31.3 (31.0-37.0) g/dL RDW 15.3 (11.5-15.5) % Plt Count 795 H (150-450) k/uL Neutrophils % 76 % Lymphocytes % 13 % Monocytes % 4 % Eosinophils % 2 % Basophils % 0 % Neutrophils # 5.8 (1.3-7.7) k/uL Lymphocytes # 1.0 (1.0-4.8) k/uL Monocytes # 0.3 (0-1.0) k/uL Eosinophils # 0.2 (0-0.7) k/uL Basophils # 0.0 (0-0.2) k/uL Hypochromasia Moderate Poikilocytosis Slight PT (9.0-12.0) sec INR (<1.1) APTT (22.0-30.0) sec Sodium 137 (137-145) mmol/L Potassium 4.1 (3.5-5.1) mmol/L Chloride 102 (98-107) mmol/L Carbon Dioxide 26 (22-30) mmol/L Anion Gap 9 mmol/L BUN 26 H (7-17) mg/dL Creatinine 1.10 H (0.52-1.04) mg/dL Est GFR (MDRD) Af Amer >60 (>60 ml/min/1.73 sqM) Est GFR (MDRD) Non-Af 54 (>60 ml/min/1.73 sqM) Glucose 89 (74-99) mg/dL Plasma Lactic Acid Armando (0.7-2.0) mmol/L Calcium 9.2 (8.4-10.2) mg/dL Total Bilirubin 0.2 (0.2-1.3) mg/dL AST 10 L (14-36) U/L ALT 16 (9-52) U/L Alkaline Phosphatase 61 (38-126) U/L Troponin I <0.012 (0.000-0.034) ng/mL Total Protein 5.8 L (6.3-8.2) g/dL Albumin 2.8 L (3.5-5.0) g/dL Blood Type Blood Type Recheck Antibody Screen Spec Expiration Date 08/22/16 08/22/16 08/22/16 Range/Units 03:13 03:13 04:46 WBC (3.8-10.6) k/uL RBC (3.80-5.40) m/uL Hgb (11.4-16.0) gm/dL Hct (34.0-46.0) % MCV (80.0-100.0) fL MCH (25.0-35.0) pg MCHC (31.0-37.0) g/dL RDW (11.5-15.5) % Plt Count (150-450) k/uL Neutrophils % % Lymphocytes % % Monocytes % % Eosinophils % % Basophils % % Neutrophils # (1.3-7.7) k/uL Lymphocytes # (1.0-4.8) k/uL Monocytes # (0-1.0) k/uL Eosinophils # (0-0.7) k/uL Basophils # (0-0.2) k/uL Hypochromasia Poikilocytosis PT 11.0 (9.0-12.0) sec INR 1.1 (<1.1) APTT 24.1 (22.0-30.0) sec Sodium (137-145) mmol/L Potassium (3.5-5.1) mmol/L Chloride (98-107) mmol/L Carbon Dioxide (22-30) mmol/L Anion Gap mmol/L BUN (7-17) mg/dL Creatinine (0.52-1.04) mg/dL Est GFR (MDRD) Af Amer (>60 ml/min/1.73 sqM) Est GFR (MDRD) Non-Af (>60 ml/min/1.73 sqM) Glucose (74-99) mg/dL Plasma Lactic Acid Armando 0.7 (0.7-2.0) mmol/L Calcium (8.4-10.2) mg/dL Total Bilirubin (0.2-1.3) mg/dL AST (14-36) U/L ALT (9-52) U/L Alkaline Phosphatase (38-126) U/L Troponin I (0.000-0.034) ng/mL Total Protein (6.3-8.2) g/dL Albumin (3.5-5.0) g/dL Blood Type A Negative Blood Type Recheck No Antibody Screen NEGATIVE Spec Expiration Date 08/25/2016 - 8 - EKG Data -: EKG Interpreted by Co EKG shows normal: sinus rhythm, axis (Normal), intervals (Normal), ST-T waves ( Normal) Rate: tachycardia (Rate 104 bpm) Interpretation: LVH Disposition Clinical Impression: Anemia Disposition: ADMITTED IP TO THIS [facility] Condition: Fair Referrals: Chace Mojica MD [Primary Care Provider] - 1-2 days
[2016-08-22] MEDS ORDERED: FAMOTIDINE 20 MG TAB PO SCH (09:00)
[2016-08-22 09:45] VITALS: BMI 33.0
[2016-08-22] MEDS ORDERED: HYDROcodone/APAP 5-325MG 1 EACH TAB PO PRN (12:53)
[2016-08-22] MEDS ORDERED: IPRATROPIUM-ALBUTEROL 3 ML NEB INHALATION PRN (12:53)
[2016-08-22] MEDS ORDERED: ONDANSETRON 4 MG TAB PO PRN (12:53)
[2016-08-22] MEDS ORDERED: BACLOFEN 10 MG TAB PO PRN (12:53)
[2016-08-22] MEDS ORDERED: BISACODYL 10 MG SUPP RECTAL PRN (12:53)
--- NOTE | 2016-08-22 15:40 | US ---
EXAMINATION TYPE: US venous doppler duplex UE LT DATE OF EXAM: 08/22/2016 COMPARISON: NONE CLINICAL HISTORY: r/o dvt. PICC line. Patient unable to move arm. Painful. Anemia. SIDE PERFORMED: Left Suboptimal exam due to patient unable to move arm and edema. Left Arm: Appears positive for DVT in IJV, Subclavian vein, Axilla and Brachial vein. Appears positi ve for SVT in Basilic and Ulnar vein. IMPRESSION: There is extensive thrombus demonstrated in the jugular, subclavian axillary and brachial vein. This is acute deep venous thrombosis.
[2016-08-22 15:56] VITALS: TEMP 98.3
[2016-08-22] MEDS ORDERED: MENTHOL-ZINC OXIDE OINT 113 GM TUBE TOPICAL SCH (16:00)
[2016-08-22] MEDS ORDERED: LIDOCAINE 4% CREAM 5 GM TUBE TOPICAL SCH (16:00)
[2016-08-22] MEDS ORDERED: PRO STAT AWC PO SCH (16:00)
[2016-08-22] MEDS ORDERED: SODIUM BICARBONATE TAB 650 MG TAB PO SCH (16:00)
--- NOTE | 2016-08-22 17:14 | HP ---
DATE OF ADMISSION: 08/22/2016 This dictation is both H&P and discharge summary. HISTORY AND PHYSICAL EXAMINATION/DISCHARGE SUMMARY: 46-year-old female came in from extended care facility after her hemoglobin was down. Patient denied any chest pain. Patient denied any nausea, vomiting. Patient denied diaphoresis, dyspnea. Patient denied any lightheadedness at this point of time. We will transfuse her 1 unit and the patient was here multiple times in the past. Patient in the past was treated for sepsis secondary to decubitus ulcer and patient is on broad-spectrum antibiotics for snf. Patient PICC line in the left is nonfunctional at this point of time. We will obtain an ultrasound. We cannot get a PICC line here today. Because of that, [facility] if [facility] can to get a PICC line on Wednesday. In this situation, we will leave the peripheral line and patient will be discharged today so that PICC line can be done on Wednesday as an outpatient. We will also obtain an ultrasound to make sure that there is no thrombosis. REVIEW OF SYSTEMS: CONSTITUTIONAL: No fever, no malaise, no fatigue. HEENT: No recent visual problems or hearing problems. Denied any sore throat. CARDIOVASCULAR: No chest pain, orthopnea, PND, no palpitations, no syncope. PULMONARY: No shortness of breath, no cough, no hemoptysis. GASTROINTESTINAL: No diarrhea, no nausea, no vomiting, no abdominal pain. Normoactive bowel sounds. NEUROLOGICAL: No headaches, no weakness, no numbness. HEMATOLOGICAL: Denies any bleeding or petechiae. GENITOURINARY: Denies any burning micturition, frequency, or urgency. MUSCULOSKELETAL/RHEUMATOLOGICAL: Denies any joint pain, swelling, or any muscle pain. ENDOCRINE: Denies any polyuria or polydipsia. The rest of the 14 point review of systems is negative. Home medications include: 1. Baclofen. 2. ( ). 3. ( ). 4. Bisacodyl. 5. Acetaminophen. 6. Multivitamin. 7. Omeprazole. 8. Collagenase. 9. Gabapentin. 10. Ondansetron. 11. Phenergan. 12. Pravastatin. 13. Scopolamine patch. 14. Amlodipine. 15. Daptomycin. 16. ( ). 17. Hydrocodone acetaminophen. 18. Ipratropium. 19. Albuterol. 20. Folic acid. 21. ( ). 22. Thiamine. 23. Metronidazole. ALLERGIES: ( ). PAST MEDICAL HISTORY: Significant for hyperlipidemia. Patient in the past had end stage renal disease on hemodialysis, gait dysfunction, sacral decubitus ulcer for which patient is on long-term antibiotics, stage IV sacral decubitus ulcer. Patient has multiple sclerosis with mostly bedbound and chronic weakness in bilateral lower limbs. SOCIAL HISTORY: Denied any smoking, alcohol abuse or any drug abuse. FAMILY HISTORY: Mother had coronary artery disease, diabetes mellitus, hyperlipidemia, hypertension. Father's history is unknown. PHYSICAL EXAMINATION: VITAL SIGNS: Temperature 98.2, pulse of 99, respiratory rate of 16, blood pressure is 111/72. Saturating at 95% on 2 L O2 by nasal cannula. GENERAL: The patient is alert and oriented x3, not in any acute distress. Well developed, well nourished. HEENT: Pupils are round and equally reacting to light. EOMI. No scleral icterus. No conjunctival pallor. Normocephalic, atraumatic. No pharyngeal erythema. No thyromegaly. CARDIOVASCULAR: S1 and S2 present. No murmurs, rubs, or gallops. PULMONARY: Chest is clear to auscultation, no wheezing or crackles. ABDOMEN: Soft, nontender, nondistended, normoactive bowel sounds. No palpable organomegaly. MUSCULOSKELETAL: No joint swelling or deformity. EXTREMITIES: No cyanosis, clubbing, or pedal edema. NEUROLOGICAL: No significant changes compared to before. SKIN: Dermatologic: Patient has a sacral decubitus ulcer I did not examine today. Regarding her left hand PICC line it is definitely swollen. Not sure if there is any of blood clot in that area for which we will obtain an ultrasound. ASSESSMENT AND PLAN: 1. Anemia. Does not appear to have any acute gastrointestinal bleed. Patient does not have any acute blood loss anemia, because of which patient will be given 1 unit of blood transfusion. The patient will be subsequently transferred, will be discharged back to [facility]. 2. End stage renal disease. Continue with hemodialysis. 3. Nonfunctional PICC line, we will obtain an ultrasound as mentioned above. ( ) can be placed as an outpatient. 4. Sacral decubitus ulcer for which patient will continue outpatient antibiotics as scheduled. Follow-up with infectious disease as an outpatient. 5. Hyperlipidemia. 6. Hypertension. 7. ( ). 8. Multiple sclerosis with chronic weakness in bilateral lower limbs. 9. Mild acute renal dysfunction with mildly elevated creatinine of 1.10, BUN of 26. I will discontinue Lasix at this point of time. 10. Encouraged her to drink water. 11. Hypothyroidism. 12. Patient will be discharged today after blood transfusion with the above mentioned plan.
[2016-08-22 17:18] VITALS: BP 116/71; PULSE 94; RESP 16
[2016-08-22] MEDS ORDERED: RIVAROXABAN 15 MG TAB PO SCH (17:30)
[2016-08-22] MEDS ORDERED: SEVELAMER 800 MG TAB PO SCH (17:30)
[2016-08-22] MEDS ORDERED: FERROUS SULFATE 325 MG TAB PO SCH (21:00)
[2016-08-22] MEDS ORDERED: THIAMINE 100 MG TAB PO SCH (21:00)
[2016-08-22] MEDS ORDERED: NON-FORMULARY DRUG (Dimethyl Fumarate [Tecfidera] 240 MG) PO SCH (21:00)
[2016-08-22] MEDS ORDERED: PRAVASTATIN SODIUM 40 MG TAB PO SCH (21:00)
[2016-08-22] MEDS ORDERED: MULTIVITAMINS, THERA 1 EACH TAB PO SCH (21:00)
[2016-08-22] MEDS ORDERED: GABAPENTIN 300 MG CAP PO SCH (21:00)
[2016-08-22] MEDS ORDERED: FOLIC ACID 1 MG TAB PO SCH (21:00)
[2016-08-22] MEDS ORDERED: ASPIRIN 81 MG CHEW PO SCH (21:00)
[2016-08-23] MEDS ORDERED: LEVOTHYROXINE 50 MCG TAB PO SCH (06:30)
[2016-08-23] MEDS ORDERED: PANTOPRAZOLE 40 MG TABLET PO SCH (07:30)
[2016-08-23] MEDS ORDERED: amLODIPine 10 MG TAB PO SCH (09:00)
[2016-08-24] MEDS ORDERED: DAPTOmycin 500 MG VIAL IV SCH (12:53)
[2016-08-25] MEDS ORDERED: DARBEPOETIN ALFA 40 MCG/0.4 ML SYRINGE SQ SCH (09:00)
== END 2016-08-22 18:15 ==
LOC: EC 02:08 → 4MS4W 06:43
PROVIDERS: ADMIT Internal Medicine; ATTEND Internal Medicine
DX: D64.9 Anemia, unspecified (principal); E78.5 Hyperlipidemia, unspecified; G35 Multiple sclerosis; I12.0 Hypertensive chronic kidney disease with stage 5 chronic kidney disease or end stage renal disease; N18.6 End stage renal disease; Z99.2 Dependence on renal dialysis; Z82.49 Family history of ischemic heart disease and other diseases of the circulatory system; Z79.899 Other long term (current) drug therapy; Z91.02 Food additives allergy status; Z79.82 Long term (current) use of aspirin; Z86.14 Personal history of Methicillin resistant Staphylococcus aureus infection; Z16.24 Resistance to multiple antibiotics; L89.154 Pressure ulcer of sacral region, stage 4; Z74.01 Bed confinement status; E03.9 Hypothyroidism, unspecified
CPT/HCPCS: 99285; 36415; 93005; 86900; 86901; 80053; 83605; 84484; 85025; 85610; 85730; 86850; 86920; 82272; 93971; G0378; P9016

== ENCOUNTER → 2017-06-02 | Outpatient (CLI) | payer OTHER ==
--- NOTE | 2017-06-02 10:50 | MR ---
EXAMINATION TYPE: MR lumbar spine wo con DATE OF EXAM: 06/02/2017 COMPARISON: NONE HISTORY: Lumbago TECHNIQUE: Multiplanar, multisequence images of the lumbar spine were acquired. FINDINGS: The lumbar vertebral bodies maintain normal vertebral body height and alignment. Bone marro w signal is patchy and slightly hypoattenuated diffusely but overall within normal limits. Multilevel disc desiccation is seen. Conus medullaris is unremarkable terminating at L1. Artifact is seen withi n the right kidney at the upper pole and lower pole that is T2 and T1 hyperintense. This partially ob scure surrounding visualization. L1-L2: There is disc desiccation without disc herniation, spinal canal stenosis or neural foraminal n arrowing. L2-L3: Normal disc appearance without desiccation. No herniation, protrusion or disc bulging. No ca nal stenosis is present. Foramina are patent bilaterally. L3-L4: Disc desiccation is seen as well as a small broad-based disc bulge and facet arthropathy. The broad-based disc bulges right eccentric resulting in mild right neural foraminal narrowing. No left n eural foraminal narrowing or spinal canal stenosis. Mild ligamentum flavum buckling is seen at this l evel. L4-L5: There is a broad-based disc bulge that is right eccentric with facet arthropathy resulting in mild right neural foraminal narrowing. Mild ligamentum flavum buckling is seen at this level. No left neural foraminal narrowing or spinal canal stenosis. L5-S1: Very small central disc protrusion/herniation superimposed upon a broad-based disc bulge witho ut neural foraminal narrowing or spinal canal stenosis. Mild facet arthropathy is seen at this level. IMPRESSION: 1. Very small central disc herniation at L5-S1 without spinal canal stenosis or neural foraminal narr owing. 2. Multilevel degenerative disc disease resulting in mild right neural foraminal narrowing at L3-L5. 3. Patchy and mildly hypointense bone marrow signal that is overall within normal limits although cou ld relate to anemia or less likely lymphoproliferative disorders. Correlation with CBC is recommended . 4. Artifact is seen within the right upper pole and lower pole of the kidney obscuring visualization.
== END | disposition home or self-care (01) ==
LOC: RADMRIMAIN 09:30
PROVIDERS: ATTEND Nurse Practitioner Acute Care
DX: M99.73 Connective tissue and disc stenosis of intervertebral foramina of lumbar region (principal); M51.27 Other intervertebral disc displacement, lumbosacral region; M51.36 Other intervertebral disc degeneration, lumbar region
CPT/HCPCS: 72148

== ENCOUNTER → 2017-08-18 | Outpatient (CLI) | payer OTHER ==
--- NOTE | 2017-08-18 18:38 | MR ---
EXAMINATION TYPE: MR brain/cspine wo/w DATE OF EXAM: 08/18/2017 COMPARISON: 03/09/2016 HISTORY: Neck pain, MS, compare to prior MRI 03-09-16 CONTRAST: Performed utilizing 11 mL intravenous Gadavist gadolinium contrast. TECHNIQUE: Multiplanar, multisequence imaging of the brain is performed on a 3.0 Crissy magnet. Demye linating disease protocol with additional Sagittal Flair sequence is performed. Study is performed wi thin 24 hours of arrival to the hospital. FINDINGS: T2 White Matter Lesions Present : Yes Approximate Number of Lesions: Multiple scattered Locations Identified : Brain stem, right cerebellar peduncle, subcortical and periventricular deep wh ite matter, centrum semiovale Size of Largest Lesion(s): 1. 0.9 x 0.9 x 1.6 cm. Location: Left frontal lobe Sequence 1301 Image 19 (axial) and Sequence 1401 Image 8 (sagittal). 2. 0.6 x 0.9 x 0.6 cm. Location: Right corpus callosum Sequence 03/24/2000 Image 22 (axial) and Seque nce 03/25/2000 Image 18 (sagittal). This was measured previously and appears stable. Enhancing Lesion(s) Present: No Change from Prior: Stable Diffusion-weighted imaging is performed. No abnormal hyperintensity is present to suggest an acute i ntracranial infarct or acute ischemic change. Ventricles and sulci are minimally prominent for the patient age. Inferior maxillary sinus retention cyst may be present. No abnormal enhancement is present on post contrast images. . IMPRESSION: 1. Multiple scattered bilateral deep white matter hyperintensities can be compatible with multiple s clerosis in the proper clinical setting. Findings appear stable over the interval. EXAMINATION TYPE: MR brain/cspine wo/w DATE OF EXAM: 08/18/2017 COMPARISON: 03/09/2016 HISTORY: Neck pain, MS, compare to prior MRI 03-09-16 CONTRAST: Performed utilizing 11 mL intravenous Gadavist gadolinium contrast. TECHNIQUE: Multiplanar multiecho imaging on a 3.0 Crissy magnet is performed through the cervical spin e. FINDINGS: The craniovertebral junction is normal. Vertebral body alignment is normal. There is inc reased signal within the spinal cord which appears to extend from C2 to the C4-5 disc level. C7-T1: No focal disc herniation or significant disc bulge is evident. No spinal canal stenosis or n eural foraminal stenosis is present. C6-7: Broad central mild disc bulge is present with minimal anterior thecal sac contact. No spinal ca nal stenosis present. Mild right foraminal narrowing is present.. C5-6: Broad-based disc bulge has mild anterior thecal sac flattening. The sagittal T2-weighted images there is some increased signal suggesting an annular tear. No spinal canal stenosis is present. Mild foraminal narrowing is present bilaterally. C4-5: No focal disc herniation or significant disc bulge is evident. No spinal canal stenosis present . Mild bilateral foraminal narrowing is present, greater on the right. C3-4: No focal disc herniation or significant disc bulge is evident. No spinal canal stenosis or pedro ral foraminal stenosis is present. C2-3: No focal disc herniation or significant disc bulge is evident. No spinal canal stenosis or pedro ral foraminal stenosis is present. IMPRESSIONS: 1. Increased signal within the spinal cord can be compatible with multiple sclerosis. This appears to extend from C2 to C4 5 disc level and has a similar appearance to the 03/09/2016 exam
== END | disposition home or self-care (01) ==
LOC: RADMRIMAIN 14:15
PROVIDERS: ATTEND Nurse Practitioner Acute Care
DX: G35 Multiple sclerosis (principal); M54.2 Cervicalgia
CPT/HCPCS: 82565; 84520; 70553; 72156; 36415; A9581

== ENCOUNTER 2017-08-26 23:52 | Inpatient (IN) | payer OTHER ==
[2017-08-27 00:02] LABS: Glucose,Whole Blood 120 mg/dL (75-99)
[2017-08-27] MEDS ORDERED: ACETAMINOPHEN TAB 500 MG TAB PO STA (00:20)
[2017-08-27] MEDS ORDERED: PIPERACILLIN-TAZOBACTAM 3.375 GM in DEXTROSE/WATER 1 50ML.BAG IVPB STA (00:20)
[2017-08-27 00:30] LABS: Basophils % (A) 0 %; Eosinophils % (A) 0 %; HCT 37.8 % (34.0-46.0); HGB 12.5 gm/dL (11.4-16.0); Lymphocytes # (A) 0.3 k/uL (1.0-4.8); Lymphocytes % (A) 2 %; MCH 27.7 pg (25.0-35.0); Monocytes # (A) 0.5 k/uL (0-1.0); Monocytes % (A) 4 %; Neutrophils # (A) 12.3 k/uL (1.3-7.7); Neutrophils % (A) 93 %; Platelet Count 278 k/uL (150-450); RDW 14.6 % (11.5-15.5); WBC 13.2 k/uL (3.8-10.6)
[2017-08-27 00:49] LABS: Albumin 2.8 g/dL (3.5-5.0); Calcium 8.2 mg/dL (8.4-10.2); Total Bilirubin 0.2 mg/dL (0.2-1.3)
[2017-08-27] MEDS: SODIUM CHLORIDE 0.9% 1,000 ML IV STA ×2 (00:50→03:05)
[2017-08-27 00:54] LABS: Potassium 2.8 mmol/L (3.5-5.1)
[2017-08-27] MEDS ORDERED: POTASSIUM BICARBONATE/CIT AC 20 MEQ TABLET.EFF PO STA (00:59)
[2017-08-27 03:26] LABS: Amorphous Sediment,Urine Rare /hpf; Appearance,Urine Cloudy (Clear); Bacteria,Urine Many /hpf; Bilirubin,Urine Negative (Negative); Blood,Urine Negative (Negative); Color,Urine Yellow; Glucose,Urine (UA) Negative (Negative); Ketones,Urine Negative (Negative); Leukocyte Esterase,Urine Large (Negative); Mucus,Urine Few /hpf; Nitrite,Urine Negative (Negative); PH, Urine 8.5 (5.0-8.0); Protein,Urine 1+ (Negative); RBC,Urine 10 /hpf (0-5); Specific Gravity,Urine 1.013 (1.001-1.035); Urobilinogen,Urine <2.0 mg/dL (<2.0); WBC,Urine 9 /hpf (0-5)
--- NOTE | 2017-08-27 03:28 | ED ---
Fever HPI - General Chief Complaint: Fever Stated Complaint: Sepsis Time Seen by Provider: 08/26/17 23:54 Source: patient, EMS Mode of arrival: EMS Limitations: altered mental status - History of Present Illness Initial Comments: 47 years O female comes in with a fever of 104, she said she believes she had a bladder infection she feels weak, noticed palpitation and her blood pressures low. He denies any headache no neck stiffness no chest pain or shortness of breath no abdominal pain no frequency urgency dysuria no symptoms of TIA or CVA - Related Data Home Medications Medication Instructions Recorded Confirmed Baclofen [Lioresal] 10 mg PO Q8H PRN 11/17/13 08/27/17 Dimethyl Fumarate [Tecfidera] 240 mg PO BID 09/27/15 08/27/17 Bisacodyl [Dulcolax] 10 mg RECTAL Q72H PRN 04/23/16 08/27/17 Acetaminophen Tab [Tylenol] 650 mg PO Q6HR PRN 05/17/16 08/27/17 Multivitamins, Thera [Multivitamin 1 tab PO HS 05/17/16 08/27/17 (formulary)] Omeprazole [PriLOSEC] 20 mg PO DAILY 05/17/16 08/27/17 Gabapentin [Neurontin] 300 mg PO BID 06/26/16 08/27/17 Ondansetron [Zofran] 4 mg PO Q8HR PRN 06/26/16 08/27/17 Phenergan Solution 25mg/Ml 0.5 ml IM Q6H PRN 06/26/16 08/27/17 Pravastatin Sodium [Pravachol] 40 mg PO HS 06/26/16 08/27/17 amLODIPine [Norvasc] 10 mg PO DAILY 06/26/16 08/27/17 DAPTOmycin [Cubicin] 800 mg IV MOWEFR 07/01/16 08/27/17 Darbepoetin Pascual [Aranesp] 40 mcg SQ TU 07/01/16 08/27/17 HYDROcodone/APAP 5-325MG [Winters 1 tab PO Q6H PRN 07/01/16 08/27/17 5-325] Ipratropium-Albuterol Nebulize 3 ml INHALATION RT-Q4H PRN 07/01/16 08/27/17 [Duoneb 0.5 mg-3 mg/3 ml Soln] Menthol/Zinc Oxide [Calmoseptine 1 applic TOPICAL TID 07/01/16 08/27/17 Ointment] Ferrous Sulfate [Feosol] 325 mg PO HS 08/22/16 08/27/17 Folic Acid 1 mg PO HS 08/22/16 08/27/17 Levothyroxine Sodium [Synthroid] 50 mcg PO DAILY 08/22/16 08/27/17 Lidocaine 4% Cream [Lmx 4] 1 applic TOPICAL TID 08/22/16 08/27/17 Pro-Stat Awc 30 ml PO TID 08/22/16 08/27/17 Sevelamer [Renvela] 1,600 mg PO TID-W/MEALS 08/22/16 08/27/17 Thiamine [Vitamin B-1] 100 mg PO HS 08/22/16 08/27/17 Aspirin [Children's Aspirin] 81 mg PO DAILY 09/02/16 08/27/17 Furosemide [Lasix] 20 mg PO BID 09/02/16 08/27/17 Previous Rx's Medication Instructions Recorded Rifampin [Rifadin] 300 mg PO BID #1 capsule 06/02/16 Sodium Bicarbonate Tab 650 mg PO TID #1 tablet 06/02/16 Rivaroxaban [Xarelto] 15 mg PO BID #42 tab 08/22/16 Allergies Allergy/AdvReac Type Severity Reaction Status Date / Time cinnamon Allergy Rash/Hives Verified 10/13/16 14:24 Review of Systems ROS Statement: Those systems with pertinent positive or pertinent negative responses have been documented in the HPI. ROS Other: All systems not noted in ROS Statement are negative. Past Medical History Past Medical History: Blood Disorder, Dialysis, Hyperlipidemia, Musculoskeletal Disorder, Neurologic Disorder, Pneumonia, Renal Disease Additional Past Medical History / Comment(s): gait dysfunction-unable to stand/ walk per patient, MS, stage IV sacral osteomyelitis, UTI, previous hemodialysis finished 08/17/16 History of Any Multi-Drug Resistant Organisms: MRSA, VRE Date of last positivie culture/infection: 05/22/16 MRSA; 05/18/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 Operating room debridemint of stage IV decubitus ulcer sacrum , MELI, HEMODIALYSIS PERMACATH removed 08/20/16, picc line placed 08/18/16 but doesnt work per patient- dressing on picc says DO NOT USE. 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 Past Psychological History: No Psychological Hx Reported Smoking Status: Former smoker Past Alcohol Use History: None Reported Past Drug Use History: None Reported - Past Family History Father History Unknown: Yes Additional Family Medical History / Comment(s): PTS DAD LIVED IN [place]- SHE 'S NOT SURE WHAT HE FROM Mother Family Medical History: Coronary Artery Disease (CAD), Diabetes Mellitus, Hyperlipidemia, Hypertension Additional Family Medical History / Comment(s): CARDIAC STENTS General Exam Limitations: altered mental status Course Vital Signs 08/26/17 08/26/17 08/27/17 23:53 23:57 00:53 Temperature 99.7 F H 99.7 F H Pulse Rate 104 H 99 102 H Respiratory 18 20 20 Rate Blood Pressure 97/52 97/52 111/65 O2 Sat by Pulse 96 96 97 Oximetry 08/27/17 03:00 Temperature 98.9 F Pulse Rate 102 H Respiratory 20 Rate Blood Pressure 91/53 O2 Sat by Pulse 97 Oximetry This is a sinus tachycardia ventricular rate is 1 of 4 NC interval is 188 QRS duration is 1 or 2 QT/QTc is 352/452 review of this EKG does not reveal any ST elevation or ST depression Medical Decision Making - Lab Data Result diagrams: 08/27/17 00:05 08/27/17 00:05 Lab Results 08/26/17 08/27/17 08/27/17 Range/Units 23:57 00:05 00:05 WBC 13.2 H (3.8-10.6) k/uL RBC 4.50 (3.80-5.40) m/uL Hgb 12.5 (11.4-16.0) gm/dL Hct 37.8 (34.0-46.0) % MCV 84.0 (80.0-100.0) fL MCH 27.7 (25.0-35.0) pg MCHC 33.0 (31.0-37.0) g/dL RDW 14.6 (11.5-15.5) % Plt Count 278 (150-450) k/uL Neutrophils % 93 % Lymphocytes % 2 % Monocytes % 4 % Eosinophils % 0 % Basophils % 0 % Neutrophils # 12.3 H (1.3-7.7) k/uL Lymphocytes # 0.3 L (1.0-4.8) k/uL Monocytes # 0.5 (0-1.0) k/uL Eosinophils # 0.0 (0-0.7) k/uL Basophils # 0.0 (0-0.2) k/uL Sodium 142 (137-145) mmol/L Potassium 2.8 L* (3.5-5.1) mmol/L Chloride 108 H (98-107) mmol/L Carbon Dioxide 21 L (22-30) mmol/L Anion Gap 13 mmol/L BUN 40 H (7-17) mg/dL Creatinine 1.20 H (0.52-1.04) mg/dL Est GFR (CKD-EPI)AfAm 63 (>60 ml/min/1.73 sqM) Est GFR (CKD-EPI)NonAf 54 (>60 ml/min/1.73 sqM) Glucose 110 H (74-99) mg/dL POC Glucose (mg/dL) 120 H (75-99) mg/dL POC Glu [employer] Masha Marcus Plasma Lactic Acid Armando (0.7-2.0) mmol/L Calcium 8.2 L (8.4-10.2) mg/dL Total Bilirubin 0.2 (0.2-1.3) mg/dL AST 23 (14-36) U/L ALT 29 (9-52) U/L Alkaline Phosphatase 69 (38-126) U/L Total Protein 5.0 L (6.3-8.2) g/dL Albumin 2.8 L (3.5-5.0) g/dL Urine Color Urine Appearance (Clear) Urine pH (5.0-8.0) Ur Specific Coleman (1.001-1.035) Urine Protein (Negative) Urine Glucose (UA) (Negative) Urine Ketones (Negative) Urine Blood (Negative) Urine Nitrite (Negative) Urine Bilirubin (Negative) Urine Urobilinogen (<2.0) mg/dL Ur Leukocyte Esterase (Negative) Urine RBC (0-5) /hpf Urine WBC (0-5) /hpf Amorphous Sediment (None) /hpf Urine Bacteria (None) /hpf Urine Mucus (None) /hpf 08/27/17 08/27/17 Range/Units 00:05 00:05 WBC (3.8-10.6) k/uL RBC (3.80-5.40) m/uL Hgb (11.4-16.0) gm/dL Hct (34.0-46.0) % MCV (80.0-100.0) fL MCH (25.0-35.0) pg MCHC (31.0-37.0) g/dL RDW (11.5-15.5) % Plt Count (150-450) k/uL Neutrophils % % Lymphocytes % % Monocytes % % Eosinophils % % Basophils % % Neutrophils # (1.3-7.7) k/uL Lymphocytes # (1.0-4.8) k/uL Monocytes # (0-1.0) k/uL Eosinophils # (0-0.7) k/uL Basophils # (0-0.2) k/uL Sodium (137-145) mmol/L Potassium (3.5-5.1) mmol/L Chloride (98-107) mmol/L Carbon Dioxide (22-30) mmol/L Anion Gap mmol/L BUN (7-17) mg/dL Creatinine (0.52-1.04) mg/dL Est GFR (CKD-EPI)AfAm (>60 ml/min/1.73 sqM) Est GFR (CKD-EPI)NonAf (>60 ml/min/1.73 sqM) Glucose (74-99) mg/dL POC Glucose (mg/dL) (75-99) mg/dL POC Glu [employer] ID Plasma Lactic Acid Armando 3.0 H* (0.7-2.0) mmol/L Calcium (8.4-10.2) mg/dL Total Bilirubin (0.2-1.3) mg/dL AST (14-36) U/L ALT (9-52) U/L Alkaline Phosphatase (38-126) U/L Total Protein (6.3-8.2) g/dL Albumin (3.5-5.0) g/dL Urine Color Yellow Urine Appearance Cloudy H (Clear) Urine pH 8.5 H (5.0-8.0) Ur Specific Coleman 1.013 (1.001-1.035) Urine Protein 1+ H (Negative) Urine Glucose (UA) Negative (Negative) Urine Ketones Negative (Negative) Urine Blood Negative (Negative) Urine Nitrite Negative (Negative) Urine Bilirubin Negative (Negative) Urine Urobilinogen <2.0 (<2.0) mg/dL Ur Leukocyte Esterase Large H (Negative) Urine RBC 10 H (0-5) /hpf Urine WBC 9 H (0-5) /hpf Amorphous Sediment Rare H (None) /hpf Urine Bacteria Many H (None) /hpf Urine Mucus Few H (None) /hpf Critical Care Time Total Critical Care Time: 45 Critical Care Time: Temperature is 14 at home, in ER and she dropped her blood pressure to 285/40, she was given some fluids, she got him a dose of Zosyn and we noticed potassium is 2.8 she got a potassium carbonate 40 minutes milliequivalents by mouth her lactate is 3.0 would need admission under Dr. Mc's service with the IV hydration, broad-spectrum antibiotic with the blood cultures urine culture and now massive IV fluids. So far she does not need any pressors since she had a very clear mentation urine and her blood pressure was 85 for continue to monitor it closely if indicated. We'll start her a nor appendectomy infusion and chest x-ray is not the best chest x-ray but does show any congestive heart failure or infiltrate, urinalysis is positive she be given another bolus of liter water repeat lactate and potassium. She would get another dose of potassium 20 mEq of potassium [id number] Disposition Clinical Impression: Fever, Sepsis, Hypokalemia Disposition: ADMITTED IP TO THIS HOSP Referrals: Chace Mojica MD [Primary Care Provider] - 1-2 days
[2017-08-27] MEDS ORDERED: NALOXONE 0.4 MG/ML 1 ML VIAL IV PRN (03:32)
[2017-08-27] MEDS ORDERED: ACETAMINOPHEN TAB 325 MG TAB PO PRN (03:32)
[2017-08-27] MEDS ORDERED: ONDANSETRON 4 MG/2 ML VIAL IVP PRN (03:32)
[2017-08-27] MEDS ORDERED: MORPHINE SULFATE 2 MG/ML SYRINGE IV PRN (03:32)
--- NOTE | 2017-08-27 03:33 | XR ---
EXAMINATION TYPE: XR chest 2V DATE OF EXAM: 08/27/2017 COMPARISON: 06/01/2016 HISTORY: Fever TECHNIQUE: Frontal and lateral views of the chest are obtained. FINDINGS: There is poor inspiration. There is no heart failure. Heart size is probably normal. There are chest leads. IMPRESSION: Poor inspiration is worse than last exam. No pleural effusion seen.
[2017-08-27] MEDS ORDERED: IPRATROPIUM-ALBUTEROL 3 ML NEB INHALATION PRN (03:35)
[2017-08-27] MEDS ORDERED: PROMETHAZINE INJ 25 MG/ML 1 ML VIAL IM PRN (03:35)
[2017-08-27] MEDS ORDERED: BACLOFEN 10 MG TAB PO PRN (03:35)
[2017-08-27] MEDS ORDERED: BISACODYL 10 MG SUPP RECTAL PRN (03:35)
[2017-08-27] MEDS ORDERED: SODIUM CHLORIDE 0.9% 1,000 ML IV ONE (03:40)
[2017-08-27] MEDS ORDERED: POTASSIUM BICARBONATE/CIT AC 20 MEQ TABLET.EFF PO ONE (03:40)
[2017-08-27] MEDS ORDERED: DAPTOmycin 500 MG VIAL IV SCH (03:45)
[2017-08-27] MEDS ORDERED: NOREPINEPHRIN 4 MG-0.9% NS PMX 4 MG/250 ML ML IV SCH ×2 (06:15→19:00)
[2017-08-27] MEDS ORDERED: NOREPINEPHRIN 4 MG-0.9% NS PMX 4 MG/250 ML ML IV STA (06:16)
[2017-08-27] MEDS ORDERED: PRO STAT AWC PO SCH (09:00)
[2017-08-27] MEDS ORDERED: FUROSEMIDE 20 MG TAB PO SCH (09:00)
[2017-08-27] MEDS: SEVELAMER 800 MG TAB PO SCH ×3 (10:08→18:44)
[2017-08-27] MEDS: ASPIRIN 81 MG PO SCH (10:08)
[2017-08-27] MEDS: LEVOTHYROXINE 50 MCG TAB PO SCH (10:08)
[2017-08-27] MEDS: LIDOCAINE 4% CREAM 5 GM TUBE TOPICAL SCH ×3 (10:09→21:27)
[2017-08-27] MEDS: GABAPENTIN 300 MG CAP PO SCH ×2 (10:09→21:27)
[2017-08-27] MEDS: PANTOPRAZOLE 40 MG TABLET PO SCH (10:09)
[2017-08-27] MEDS: RIFAMPIN 300 MG CAP PO SCH ×2 (10:09→21:27)
[2017-08-27] MEDS: SODIUM BICARBONATE TAB 650 MG TAB PO SCH ×3 (10:10→21:26)
[2017-08-27] MEDS: HYDROcodone/APAP 5-325MG 1 EACH TAB PO PRN (10:15)
[2017-08-27] MEDS: Dimethyl Fumarate [Tecfidera] 240 MG PO SCH ×2 (12:40→21:24)
[2017-08-27] MEDS: RIVAROXABAN 15 MG TAB PO SCH ×3 (13:27→21:27)
[2017-08-27] MEDS: MULTIVITAMINS, THERA 1 EACH TAB PO SCH (13:27)
--- NOTE | 2017-08-27 13:42 | P.CNPUL ---
History of Present Illness Consult date: 08/27/17 Requesting physician: Clementine Mc Reason for consult: other (Critical care management) Chief complaint: Fever History of present illness: This is a very pleasant 47-year-old female patient who follows with Dr. Mojica as her primary care physician. 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 She resides at the [facility]. She was transported here to the emergency room late last night after developing a fever of 104. She was noted to be feeling weak and low blood pressure. She initially required norepinephrine at 15 mcg/m. Currently at 5 mcg/m. She is seen in consultation in the emergency room. She is sitting up in bed tolerating a full diet. She is awake and alert in no acute distress. Current blood pressure 134/64. She has received 2 L of fluid resuscitation. White count 13.2. Hemoglobin 12.5. Potassium 3.8. Creatinine 1.20. Initial lactic 3.0 currently 1.3. Urine is cloudy with large leukocyte esterase and 9 WBC with many bacteria. Preliminary blood culture reveals gram-negative bacilli. She currently denies any shortness of breath, cough or congestion. Maintaining good O2 saturations in the 90s on room air. She denies any palpitations. No lightheadedness or dizziness. Review of Systems Constitutional: Reports fatigue, Reports weakness Eyes: denies blurred vision, denies decreased vision Ears: deny: decreased hearing Ears, nose, mouth and throat: Denies headache, Denies sore throat Cardiovascular: Denies chest pain, Denies shortness of breath Respiratory: Denies cough Gastrointestinal: Denies abdominal pain, Denies diarrhea, Denies nausea, Denies vomiting Genitourinary: Reports mixed incontinence Musculoskeletal: Reports limitation of motion, Reports muscle weakness Integumentary: Reports wounds Neurological: Reports balance difficulties, Reports lack of coordination Psychiatric: Denies anxiety, Denies depression Endocrine: Denies fatigue, Denies weight change Hematologic/Lymphatic: Reports as per HPI Allergic/Immunologic: Reports as per HPI Past Medical History Past Medical History: Dialysis, Hyperlipidemia, Musculoskeletal Disorder, Neurologic Disorder, Pneumonia, Renal Disease Additional Past Medical History / Comment(s): Multiple sclerosis stage IV- mostly wheelchair bound but pt states recently physical therapy got her to stand briefly-L side weaker than right, past renal failure with hemodialysis- last time was July 2016, sacral decub, sacral osteomylitis, neurogenic bladder with indwelling [place], UTIs, past sepsis, iron deficiency anemia. History of Any Multi-Drug Resistant Organisms: MRSA, VRE Date of last positivie culture/infection: 05/22/16 MRSA; 05/18/16 VRE MDRO Source:: Blood-MRSA; Buttock-VRE Past Surgical History: No Surgical Hx Reported Additional Past Surgical History / Comment(s): LP, debridement decubitus sacral ulcer, hemodialysis cath since removed, picc lines-none present. 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 Smoking Status: Never smoker - Past Family History Father History Unknown: Yes Additional Family Medical History / Comment(s): PTS DAD LIVED IN [place]- SHE 'S NOT SURE WHAT HE FROM. HE HAD HYPOTENSION. Mother Family Medical History: Coronary Artery Disease (CAD), Diabetes Mellitus, Hyperlipidemia, Hypertension Additional Family Medical History / Comment(s): CARDIAC STENTS Medications and Allergies Home Medications Medication Instructions Recorded Confirmed Type Baclofen [Lioresal] 10 mg PO Q8H PRN 11/17/13 08/27/17 History Dimethyl Fumarate [Tecfidera] 240 mg PO BID 09/27/15 08/27/17 History Bisacodyl [Dulcolax] 10 mg RECTAL Q72H PRN 04/23/16 08/27/17 History Acetaminophen Tab [Tylenol] 650 mg PO Q6HR PRN 05/17/16 08/27/17 History Multivitamins, Thera [Multivitamin 1 tab PO HS 05/17/16 08/27/17 History (formulary)] Omeprazole [PriLOSEC] 20 mg PO DAILY 05/17/16 08/27/17 History Sodium Bicarbonate Tab 650 mg PO TID #1 tablet 06/02/16 08/27/17 Rx Gabapentin [Neurontin] 300 mg PO TID 06/26/16 08/27/17 History Ondansetron [Zofran] 4 mg PO Q8HR PRN 06/26/16 08/27/17 History amLODIPine [Norvasc] 10 mg PO DAILY 06/26/16 08/27/17 History Darbepoetin Pascual [Aranesp] 40 mcg SQ TU 07/01/16 08/27/17 History HYDROcodone/APAP 5-325MG [Landenberg 1 tab PO Q6H PRN 07/01/16 08/27/17 History 5-325] Ferrous Sulfate [Feosol] 325 mg PO TID 08/22/16 08/27/17 History Folic Acid 1 mg PO HS 08/22/16 08/27/17 History Levothyroxine Sodium [Synthroid] 50 mcg PO DAILY 08/22/16 08/27/17 History Lidocaine 4% Cream [Lmx 4] 1 applic TOPICAL TID 08/22/16 08/27/17 History Pro-Stat Awc 30 ml PO TID 08/22/16 08/27/17 History Thiamine [Vitamin B-1] 100 mg PO 08/22/16 08/27/17 History Aspirin [Children's Aspirin] 81 mg PO 09/02/16 08/27/17 History Benzocaine 20 % Gel [Orajel] 1 gm MM QID PRN 08/27/17 08/27/17 History Cholecalciferol [Vitamin D3] 3,000 unit PO 08/27/17 08/27/17 History Clotrimazole [Clotrimazole 1% Top 1 applic TOPICAL Q6H PRN 08/27/17 08/27/17 History Soln] Furosemide [Lasix] 80 mg PO DAILY 08/27/17 08/27/17 History Guaifenesin/Dextromethorphan 5 ml PO Q8H PRN 08/27/17 08/27/17 History [guaiFENesin DM] Allergies Allergy/AdvReac Type Severity Reaction Status Date / Time cinnamon Allergy Rash/Hives Verified 08/27/17 06:57 Physical Exam Vitals: Vital Signs Temp Pulse Resp BP Pulse Ox 08/27/17 12:09 62 18 109/59 98 08/27/17 11:28 84 18 115/60 08/27/17 10:16 89 18 107/58 95 08/27/17 07:23 97.5 F L 90 18 105/59 95 08/27/17 06:51 77 18 136/73 97 08/27/17 06:00 98.5 F 85 18 89/50 97 08/27/17 05:02 88 18 92/68 98 08/27/17 04:45 88 18 91/58 96 08/27/17 04:00 98.8 F 102 H 18 101/82 97 08/27/17 03:00 98.9 F 102 H 20 91/53 97 08/27/17 00:53 102 H 20 111/65 97 08/26/17 23:57 99.7 F H 99 20 97/52 96 08/26/17 23:53 99.7 F H 104 H 18 97/52 96 Intake and Output 08/26/17 08/27/17 08/27/17 22:59 06:59 14:59 Intake Total 33.75 Balance 33.75 Intake: Intake, IV Titration 33.75 Amount Norepinephrin 4 mg-0.9% 33.75 Ns Pmx 4 mg In 250 ml @ Titrate IV .Q0M [facility] Rx#: [id number] Other: Voiding Method Indwelling Catheter Weight 112.037 kg - Constitutional General appearance: obese - EENT Eyes: EOMI, PERRLA ENT: hearing grossly normal Ears: bilateral: normal - Neck Neck: normal ROM Carotids: bilateral: upstroke normal Thyroid: bilateral: normal size - Respiratory Respiratory: bilateral: CTA - Cardiovascular Rhythm: regular Heart sounds: normal: S1, S2 - Gastrointestinal General gastrointestinal: normal bowel sounds - Integumentary Integumentary: normal turgor - Neurologic Multiple sclerosis Neurologic: CNII-XII intact - Musculoskeletal Musculoskeletal: generalized weakness - Psychiatric Psychiatric: A&O x's 3 Results - Laboratory Findings CBC and BMP: 08/27/17 00:05 08/27/17 03:45 Abnormal lab findings: Abnormal Labs 08/26/17 08/27/17 08/27/17 23:57 00:05 00:05 WBC 13.2 H Neutrophils # 12.3 H Lymphocytes # 0.3 L Potassium 2.8 L* Chloride 108 H Carbon Dioxide 21 L BUN 40 H Creatinine 1.20 H Glucose 110 H POC Glucose (mg/dL) 120 H Plasma Lactic Acid Armando Calcium 8.2 L Total Protein 5.0 L Albumin 2.8 L Urine Appearance Urine pH Urine Protein Ur Leukocyte Esterase Urine RBC Urine WBC Amorphous Sediment Urine Bacteria Urine Mucus 08/27/17 08/27/17 00:05 00:05 WBC Neutrophils # Lymphocytes # Potassium Chloride Carbon Dioxide BUN Creatinine Glucose POC Glucose (mg/dL) Plasma Lactic Acid Armando 3.0 H* Calcium Total Protein Albumin Urine Appearance Cloudy H Urine pH 8.5 H Urine Protein 1+ H Ur Leukocyte Esterase Large H Urine RBC 10 H Urine WBC 9 H Amorphous Sediment Rare H Urine Bacteria Many H Urine Mucus Few H - Diagnostic Findings Chest x-ray: image reviewed Assessment and Plan Assessment: Impression: #1 Sepsis secondary to urinary tract infection and septicemia. #2 Hypotension secondary to above. Initially requiring pressor support and fluid resuscitation. #3 Febrile illness and Lactic acidosis secondary to above, improved. #4 Multiple sclerosis with urinary incontinence, mainly bedbound with periods of wheelchair use requiring 2 people assist to stand. #5 History of frequent urinary tract infections. #6 Previous history of MRSA bacteremia. 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 On daptomycin in the outpatient setting. #8 End-stage renal disease requiring hemodialysis. #9 Remote history of chronic tobacco dependence. #10 Hyperlipidemia. Plan: The patient was seen and evaluated by Dr. Ribeiro. Chest x-ray and labs all reviewed. May be able to wean off the norepinephrine while in the emergency room and downgraded to a selective care unit. Patient has received Zosyn, daptomycin and rifampin. Continue with fluid resuscitation. Consult infectious disease. Await further culture results. We will continue to follow make further recommendations based on her clinical status. I, the cosigning physician, performed a history & physical examination of the patient. Lungs sounds are clear. Maintaining good O2 saturations in the 90s on room air. I discussed the assessment and plan of care with my nurse practitioner, Bhargavi Murillo. I attest to the above note as dictated by her. Time with Patient: Greater than 30
[2017-08-27] MEDS: MENTHOL-ZINC OXIDE OINT 113 GM TUBE TOPICAL SCH ×3 (14:41→21:26)
--- NOTE | 2017-08-27 16:48 | P.HPIM ---
History of Present Illness H&P Date: 08/27/17 Chief Complaint: Altered mental status Patient is a 47 old female with a known history of multiple sclerosis, hyperlipidemia and previous history of UTI, neurogenic bladder and ESRD on hemodialysis as well as sacral decub ulcer status post recent surgery and chronic indwelling Austin catheter and multiple other medical problems who resides at a [facility] was brought to the hospital due to altered mental status and fever with T-max of 104. Patient says that around 2 PM yesterday felt feverish and clammy and not feeling right.. Patient also having nausea and 1 episode of vomiting and felt very weak and could not move especially right hand. Patient does have chronic left-sided weakness compared to right. Patient otherwise denied any cough or sputum production. No chest pain or shortness of breath. No headache or dizziness or lightheadedness. Patient was hypotensive on admission. Lactic acid 3.0. WBC 13.2 potassium 2.8 on admission UA showed large leukocyte esterase many bacteria and WBC count 9. EKG showed sinus tachycardia Chest x-ray showed poorly is present in no acute process Review of Systems Constitutional: Fever and chills on admission. Generalized weakness. Abdomen: Patient denied nausea vomiting and diarrhea and abdominal pain. Cardiovascular: Patient denies any chest pain or short of breath no palpitations. Respiratory: patient denied any cough is from production. No shortness of breath Neurologic: Patient denied any numbness or tingling headache. Musculoskeletal: Patient denies any complaints of joint swelling or deformity. Skin: Negative Psychiatric: Negative Endocrine: No heat or cold intolerance. No recent weight gain. Genitourinary: No dysuria or hematuria. All other 14 point ROS negative except the above Past Medical History Past Medical History: Dialysis, Hyperlipidemia, Musculoskeletal Disorder, Neurologic Disorder, Pneumonia, Renal Disease Additional Past Medical History / Comment(s): Multiple sclerosis stage IV- mostly wheelchair bound but pt states recently physical therapy got her to stand briefly-L side weaker than right, past renal failure with hemodialysis- last time was July 2016, sacral decub, sacral osteomylitis, neurogenic bladder with indwelling austin, UTIs, past sepsis, iron deficiency anemia. History of Any Multi-Drug Resistant Organisms: MRSA, VRE Date of last positivie culture/infection: 05/22/16 MRSA; 05/18/16 VRE MDRO Source:: Blood-MRSA; Buttock-VRE Past Surgical History: No Surgical Hx Reported Additional Past Surgical History / Comment(s): LP, debridement decubitus sacral ulcer, hemodialysis cath since removed, picc lines-none present. 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 Smoking Status: Never smoker - Past Family History Father History Unknown: Yes Additional Family Medical History / Comment(s): PTS DAD LIVED IN [place]- SHE 'S NOT SURE WHAT HE FROM. HE HAD HYPOTENSION. Mother Family Medical History: Coronary Artery Disease (CAD), Diabetes Mellitus, Hyperlipidemia, Hypertension Additional Family Medical History / Comment(s): CARDIAC STENTS Medications and Allergies Home Medications Medication Instructions Recorded Confirmed Type Baclofen [Lioresal] 10 mg PO Q8H PRN 11/17/13 08/27/17 History Dimethyl Fumarate [Tecfidera] 240 mg PO BID 09/27/15 08/27/17 History Bisacodyl [Dulcolax] 10 mg RECTAL Q72H PRN 04/23/16 08/27/17 History Acetaminophen Tab [Tylenol] 650 mg PO Q6HR PRN 05/17/16 08/27/17 History Multivitamins, Thera [Multivitamin 1 tab PO HS 05/17/16 08/27/17 History (formulary)] Omeprazole [PriLOSEC] 20 mg PO DAILY 05/17/16 08/27/17 History Sodium Bicarbonate Tab 650 mg PO TID #1 tablet 06/02/16 08/27/17 Rx Gabapentin [Neurontin] 300 mg PO TID 06/26/16 08/27/17 History Ondansetron [Zofran] 4 mg PO Q8HR PRN 06/26/16 08/27/17 History amLODIPine [Norvasc] 10 mg PO DAILY 06/26/16 08/27/17 History Darbepoetin Pascual [Aranesp] 40 mcg SQ TU 07/01/16 08/27/17 History HYDROcodone/APAP 5-325MG [Curlew 1 tab PO Q6H PRN 07/01/16 08/27/17 History 5-325] Ferrous Sulfate [Feosol] 325 mg PO TID 08/22/16 08/27/17 History Folic Acid 1 mg PO HS 08/22/16 08/27/17 History Levothyroxine Sodium [Synthroid] 50 mcg PO DAILY 08/22/16 08/27/17 History Lidocaine 4% Cream [Lmx 4] 1 applic TOPICAL TID 08/22/16 08/27/17 History Pro-Stat Awc 30 ml PO TID 08/22/16 08/27/17 History Thiamine [Vitamin B-1] 100 mg PO HS 08/22/16 08/27/17 History Aspirin [Children's Aspirin] 81 mg PO HS 09/02/16 08/27/17 History Benzocaine 20 % Gel [Orajel] 1 gm MM QID PRN 08/27/17 08/27/17 History Cholecalciferol [Vitamin D3] 3,000 unit PO HS 08/27/17 08/27/17 History Clotrimazole [Clotrimazole 1% Top 1 applic TOPICAL Q6H PRN 08/27/17 08/27/17 History Soln] Furosemide [Lasix] 80 mg PO DAILY 08/27/17 08/27/17 History Guaifenesin/Dextromethorphan 5 ml PO Q8H PRN 08/27/17 08/27/17 History [guaiFENesin DM] Allergies Allergy/AdvReac Type Severity Reaction Status Date / Time cinnamon Allergy Rash/Hives Verified 08/27/17 06:57 Physical Exam Vitals: Vital Signs Temp Pulse Resp BP Pulse Ox 08/27/17 10:16 89 18 107/58 95 08/27/17 07:23 97.5 F L 90 18 105/59 95 08/27/17 06:51 77 18 136/73 97 08/27/17 06:00 98.5 F 85 18 89/50 97 08/27/17 05:02 88 18 92/68 98 08/27/17 04:45 88 18 91/58 96 08/27/17 04:00 98.8 F 102 H 18 101/82 97 08/27/17 03:00 98.9 F 102 H 20 91/53 97 08/27/17 00:53 102 H 20 111/65 97 08/26/17 23:57 99.7 F H 99 20 97/52 96 08/26/17 23:53 99.7 F H 104 H 18 97/52 96 Intake and Output 08/26/17 08/27/17 08/27/17 22:59 06:59 14:59 Intake Total 33.75 Balance 33.75 Intake: Intake, IV Titration 33.75 Amount Norepinephrin 4 mg-0.9% 33.75 Ns Pmx 4 mg In 250 ml @ Titrate IV .Q0M [facility] Rx#: [id number] Other: Weight 112.037 kg PHYSICAL EXAMINATION: Patient is lying in the bed comfortably, no acute distress, awake alert and oriented. Able to communicate appropriately. HEENT: Normocephalic. Neck is supple. Pupils reactive. Nostrils clear. Oral cavity is moist. Ears reveal no drainage. Neck reveals no JVD, carotid bruits, or thyromegaly. CHEST EXAMINATION: Trachea is central. Symmetrical expansion. Lung jennings clear to auscultation and percussion. CARDIAC: Normal S1, S2 with no gallops. No murmurs ABDOMEN: Soft. Nontender. Bowel sounds normal. No organomegaly. No abdominal bruits. Sacral decubitus ulcers. No signs of infection Extremities: Trace edema. No clubbing or cyanosis Neurologically awake, alert, oriented x3 with well-coordinated movements. No focal deficits noted Skin: No rash or skin lesions. Psychiatric: Cooperative. Nonsuicidal Musculoskeletal: No joint swelling or deformity. Normal range of motion. Results CBC & Chem 7: 08/27/17 00:05 08/27/17 03:45 Labs: Abnormal Lab Results - Last 24 Hours (Table) 08/26/17 08/27/17 08/27/17 Range/Units 23:57 00:05 00:05 WBC 13.2 H (3.8-10.6) k/uL Neutrophils # 12.3 H (1.3-7.7) k/uL Lymphocytes # 0.3 L (1.0-4.8) k/uL Potassium 2.8 L* (3.5-5.1) mmol/L Chloride 108 H (98-107) mmol/L Carbon Dioxide 21 L (22-30) mmol/L BUN 40 H (7-17) mg/dL Creatinine 1.20 H (0.52-1.04) mg/dL Glucose 110 H (74-99) mg/dL POC Glucose (mg/dL) 120 H (75-99) mg/dL Plasma Lactic Acid Armando (0.7-2.0) mmol/L Calcium 8.2 L (8.4-10.2) mg/dL Total Protein 5.0 L (6.3-8.2) g/dL Albumin 2.8 L (3.5-5.0) g/dL Urine Appearance (Clear) Urine pH (5.0-8.0) Urine Protein (Negative) Ur Leukocyte Esterase (Negative) Urine RBC (0-5) /hpf Urine WBC (0-5) /hpf Amorphous Sediment (None) /hpf Urine Bacteria (None) /hpf Urine Mucus (None) /hpf 08/27/17 08/27/17 Range/Units 00:05 00:05 WBC (3.8-10.6) k/uL Neutrophils # (1.3-7.7) k/uL Lymphocytes # (1.0-4.8) k/uL Potassium (3.5-5.1) mmol/L Chloride (98-107) mmol/L Carbon Dioxide (22-30) mmol/L BUN (7-17) mg/dL Creatinine (0.52-1.04) mg/dL Glucose (74-99) mg/dL POC Glucose (mg/dL) (75-99) mg/dL Plasma Lactic Acid Armando 3.0 H* (0.7-2.0) mmol/L Calcium (8.4-10.2) mg/dL Total Protein (6.3-8.2) g/dL Albumin (3.5-5.0) g/dL Urine Appearance Cloudy H (Clear) Urine pH 8.5 H (5.0-8.0) Urine Protein 1+ H (Negative) Ur Leukocyte Esterase Large H (Negative) Urine RBC 10 H (0-5) /hpf Urine WBC 9 H (0-5) /hpf Amorphous Sediment Rare H (None) /hpf Urine Bacteria Many H (None) /hpf Urine Mucus Few H (None) /hpf Thrombosis Risk Factor Assmnt - DVT/VTE Prophylaxis DVT/VTE Prophylaxis: Pharmacologic Prophylaxis ordered - Choose All That Apply Any of the Below Risk Factors Present?: Yes Each Factor Represents 1 point: Medical pt on bed rest, Obesity (BMI >25), Sepsis (< 1month) Other Risk Factors: Yes Each Risk Factor Represents 2 Points: Patient confined to bed Other congenital or acquired thrombophilia - If yes, enter type in comment: No Thrombosis Risk Factor Assessment Total Risk Factor Score: 5 Thrombosis Risk Factor Assessment Level: High Risk Assessment and Plan Assessment: Sepsis/secondary shock secondary to urinary tract infection. Catheter related. Requiring pressor support. Patient was febrile and hypotensive on admission. Septicemia with gram-negative bacilli Lactic acidosis secondary to above improved now. Multiple sclerosis. Patient is bedbound requiring 2 people assist to stand. 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 On daptomycin currently. past renal failure with hemodialysis-last time was July 2016 History of nicotine addiction Hyperlipidemia Morbid obesity BMI 40.5 Plan: Patient will be given antibiotics and ID was consulted. Currently patient is off pressor support. Monitor blood pressure and follow closely. Pulmonary is on board. Await final blood cultures and urine cultures and further recommendations based on the clinical course. Prognosis is guarded. t was seen and evaluated by Dr. Ribeiro. Chest x-ray and labs all reviewed. May be able to wean off the norepinephrine while in the emergency room and downgraded to a selective care unit. Patient has received Zosyn, daptomycin and rifampin. Continue with fluid resuscitation. Consult infectious disease. Await further culture results. We will continue to follow make further recommendations based on her clinical status. Time with Patient: Greater than 30
[2017-08-27 18:23] LABS: Glucose,Whole Blood 270 mg/dL (75-99)
[2017-08-27] MEDS: FERROUS SULFATE 325 MG TAB PO SCH (21:27)
[2017-08-27] MEDS: PRAVASTATIN SODIUM 40 MG TAB PO SCH (21:27)
[2017-08-27] MEDS: FOLIC ACID 1 MG TAB PO SCH (21:27)
[2017-08-27] MEDS: THIAMINE 100 MG TAB PO SCH (21:27)
[2017-08-28] MEDS: HYDROcodone/APAP 5-325MG 1 EACH TAB PO PRN ×3 (06:53→23:08)
[2017-08-28] MEDS: LEVOTHYROXINE 50 MCG TAB PO SCH (06:54)
[2017-08-28 07:31] LABS: Calcium 8.9 mg/dL (8.4-10.2); Magnesium 1.9 mg/dL (1.6-2.3); Phosphorus 3.9 mg/dL (2.5-4.5); Potassium 3.4 mmol/L (3.5-5.1)
[2017-08-28] MEDS ORDERED: Magnesium Replacement Protocol 1 EACH MISC MISCELLANE PRN (07:34)
[2017-08-28] MEDS ORDERED: Potassium Replacement Protocol 1 EACH MISC MISCELLANE PRN ×2 (07:35→19:17)
[2017-08-28 08:05] LABS: Basophils % (A) 0 %; Eosinophils # (A) 0.3 k/uL (0-0.7); Eosinophils % (A) 3 %; HCT 34.2 % (34.0-46.0); HGB 11.4 gm/dL (11.4-16.0); Lymphocytes % (A) 8 %; MCH 28.3 pg (25.0-35.0); MCHC 33.4 g/dL (31.0-37.0); MCV 84.7 fL (80.0-100.0); Mean Platelet Volume 6.6; Monocytes # (A) 0.4 k/uL (0-1.0); Monocytes % (A) 4 %; Neutrophils % (A) 84 %; Platelet Count 284 k/uL (150-450); RBC 4.04 m/uL (3.80-5.40); RDW 14.6 % (11.5-15.5); WBC 11.9 k/uL (3.8-10.6)
[2017-08-28] MEDS: SEVELAMER 800 MG TAB PO SCH ×3 (08:13→17:23)
[2017-08-28] MEDS: POTASSIUM BICARBONATE/CIT AC 20 MEQ TABLET.EFF NG-TUBE SCH ×2 (08:14→09:50)
[2017-08-28] MEDS: MAGNESIUM SULFATE-D5W PMX 1 GM in DEXTROSE/WATER 1 100ML.BAG IVPB SCH ×2 (09:46→11:20)
[2017-08-28] MEDS: ASPIRIN 81 MG PO SCH (09:47)
[2017-08-28] MEDS: GABAPENTIN 300 MG CAP PO SCH ×2 (09:48→21:43)
[2017-08-28] MEDS: LIDOCAINE 4% CREAM 5 GM TUBE TOPICAL SCH ×3 (09:48→23:11)
[2017-08-28] MEDS: PANTOPRAZOLE 40 MG TABLET PO SCH (09:49)
[2017-08-28] MEDS: MENTHOL-ZINC OXIDE OINT 113 GM TUBE TOPICAL SCH ×3 (09:49→23:12)
[2017-08-28] MEDS: RIVAROXABAN 15 MG TAB PO SCH ×2 (09:50→21:43)
[2017-08-28] MEDS: SODIUM BICARBONATE TAB 650 MG TAB PO SCH ×3 (09:50→23:08)
[2017-08-28] MEDS: RIFAMPIN 300 MG CAP PO SCH ×2 (09:50→21:43)
[2017-08-28] MEDS: PIPERACILLIN-TAZOBACTAM 3.375 GM in DEXTROSE/WATER 1 50ML.BAG IVPB SCH ×2 (09:59→16:19)
[2017-08-28] MEDS: Dimethyl Fumarate [Tecfidera] 240 MG PO SCH ×2 (10:01→21:42)
--- NOTE | 2017-08-28 10:46 | P.PN ---
Subjective Progress Note Date: 08/28/17 Principal diagnosis: Acute sepsis and septic shock This is a very pleasant 47-year-old female patient who follows with Dr. Mojica as her primary care physician. 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 She resides at the [facility]. She was transported here to the emergency room late last night after developing a fever of 104. She was noted to be feeling weak and low blood pressure. She initially required norepinephrine at 15 mcg/m. Currently at 5 mcg/m. She is seen in consultation in the emergency room. She is sitting up in bed tolerating a full diet. She is awake and alert in no acute distress. Current blood pressure 134/64. She has received 2 L of fluid resuscitation. White count 13.2. Hemoglobin 12.5. Potassium 3.8. Creatinine 1.20. Initial lactic 3.0 currently 1.3. Urine is cloudy with large leukocyte esterase and 9 WBC with many bacteria. Preliminary blood culture reveals gram-negative bacilli. She currently denies any shortness of breath, cough or congestion. Maintaining good O2 saturations in the 90s on room air. She denies any palpitations. No lightheadedness or dizziness. Patient was reevaluated today in the ICU on 09/07/2017, doing better, however she remains on norepinephrine at 2 mcg/m. Her blood cultures came back positive for gram-negative bacilli, patient has been on daptomycin, and Zosyn was added. Infectious disease consultation is pending. WBC count is 11.9 hemoglobin is 11.4. Renal profile seems to be a bit improved. Blood sugar is 270 this morning. Chest x-ray showed poor inspiratory effort, low lung volumes , otherwise unremarkable. Clinically, overall, the patient is doing better today compared to yesterday. However she will remain in the ICU because she remains on norepinephrine. Objective - Vital Signs Vital signs: Vital Signs Temp 98.6 F 08/28/17 00:00 Pulse 82 08/28/17 07:00 Resp 23 08/28/17 07:00 BP 105/53 08/28/17 07:00 Pulse Ox 100 08/28/17 07:00 Intake & Output 08/27/17 08/28/17 08/28/17 18:59 06:59 18:59 Intake Total 245 1751.062 Output Total 1065 2345 Balance -820 -593.938 Weight 116.9 kg Intake: IV 100 1300 NS 100 1300 Intake, IV Titration 145 61.062 Amount Norepinephrin 4 mg-0.9% 145 Ns Pmx 4 mg In 250 ml @ Titrate IV .Q0M [facility] Rx#: [id number] Norepinephrin 4 mg-0.9% 61.062 Ns Pmx 4 mg In 250 ml @ Titrate IV .Q0M [facility] Rx#: [id number] Oral 390 Output: Urine 1065 2345 Other: Voiding Method Indwelling Catheter Indwelling Catheter - Exam - Constitutional General appearance: obese - EENT Eyes: EOMI, PERRLA ENT: hearing grossly normal Ears: bilateral: normal - Neck Neck: normal ROM Carotids: bilateral: upstroke normal Thyroid: bilateral: normal size - Respiratory Respiratory: bilateral: CTA - Cardiovascular Rhythm: regular Heart sounds: normal: S1, S2 - Gastrointestinal General gastrointestinal: normal bowel sounds - Integumentary Integumentary: normal turgor - Neurologic Multiple sclerosis Neurologic: CNII-XII intact - Musculoskeletal Musculoskeletal: generalized weakness - Psychiatric Psychiatric: A&O x's 3 Skin: A large deep ulcer/hole is noted in the sacral area quite deep, most likely extending to the sacral bone. However no evidence of any purulent discharge was noted. - Labs CBC & Chem 7: 08/28/17 07:04 08/28/17 07:04 Labs: Abnormal Lab Results - Last 24 Hours (Table) 08/27/17 08/28/17 08/28/17 Range/Units 18:10 07:04 07:04 WBC 11.9 H (3.8-10.6) k/uL Neutrophils # 10.0 H (1.3-7.7) k/uL Potassium 3.4 L (3.5-5.1) mmol/L Chloride 108 H (98-107) mmol/L BUN 35 H (7-17) mg/dL Creatinine 1.10 H (0.52-1.04) mg/dL POC Glucose (mg/dL) 270 H (75-99) mg/dL Microbiology - Last 24 Hours (Table) 08/27/17 17:03 Gram Stain - Preliminary Buttock Wound Culture - Preliminary 08/27/17 17:00 Anaerobic Culture - Preliminary Buttock 08/27/17 00:05 Blood Culture Gram Stain - Preliminary Blood Blood Culture - Preliminary Gram Neg Bacilli 08/27/17 00:05 Blood Culture - Final Blood 08/27/17 00:05 Urine Culture - Preliminary Urine,Catheterized Assessment and Plan Assessment: #1 acute septic shock and sepsis secondary to urinary tract infection #2 Hypotension secondary to above. Requiring fluids and pressors/ norepinephrine. #3 Febrile illness and Lactic acidosis secondary to above, improving #4 Multiple sclerosis with urinary incontinence, mainly bedbound with periods of wheelchair use requiring 2 people assist to stand. #5 History of frequent urinary tract infections. #6 Previous history of MRSA bacteremia. 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 On daptomycin in the outpatient setting. #8 End-stage renal disease requiring hemodialysis. #9 Remote history of chronic tobacco dependence. #10 Hyperlipidemia. Recommendation: Continue to monitor the patient in the ICU, titrate and possibly discontinue norepinephrine, maintain mean arterial pressure of 65, continue GI and DVT prophylaxis, infectious disease consultation was initiated. We'll continue to follow. Time with Patient: Less than 30
[2017-08-28] MEDS: MULTIVITAMINS, THERA 1 EACH TAB PO SCH (13:15)
[2017-08-28] MEDS ORDERED: TERBUTALINE 1 MG/ML VIAL SQ ONE ×2 (13:56→15:08)
[2017-08-28 18:50] LABS: Hemoglobin A1C 4.9 % (4.0-6.0)
[2017-08-28] MEDS: POTASSIUM CHLORIDE 10 MEQ in WATER FOR INJECTION 1 100ML.BAG IVPB SCH ×2 (20:00→21:57)
[2017-08-28] MEDS ORDERED: CEFEPIME 2 GM in SODIUM CHLORIDE 0.9% 50 ML IVPB SCH (21:00)
[2017-08-28] MEDS: PRAVASTATIN SODIUM 40 MG TAB PO SCH (21:43)
[2017-08-28] MEDS: FOLIC ACID 1 MG TAB PO SCH (21:43)
[2017-08-28] MEDS: FERROUS SULFATE 325 MG TAB PO SCH (21:43)
[2017-08-28] MEDS: THIAMINE 100 MG TAB PO SCH (21:44)
--- NOTE | 2017-08-28 22:57 | P.PN ---
Subjective Progress Note Date: 08/28/17 Principal diagnosis: Urine tract infection and sepsis Patient is a 47 old female with a known history of multiple sclerosis, hyperlipidemia and previous history of UTI, neurogenic bladder and ESRD on hemodialysis as well as sacral decub ulcer status post recent surgery and chronic indwelling Chaves catheter and multiple other medical problems who resides at a [facility] was brought to the hospital due to altered mental status and fever with T-max of 104. Patient says that around 2 PM yesterday felt feverish and clammy and not feeling right.. Patient also having nausea and 1 episode of vomiting and felt very weak and could not move especially right hand. Patient does have chronic left-sided weakness compared to right. Patient otherwise denied any cough or sputum production. No chest pain or shortness of breath. No headache or dizziness or lightheadedness. Patient was hypotensive on admission. Lactic acid 3.0. WBC 13.2 potassium 2.8 on admission UA showed large leukocyte esterase many bacteria and WBC count 9. EKG showed sinus tachycardia Chest x-ray showed poorly is present in no acute process 08/28/2017 Patient is awake and oriented 3. Patient is still hypotensive and requiring pressor support. Blood cultures came out positive for gram-negative bacilli. Zosyn was added. ID is following. Chest x-ray showed poor inspiratory for 10 worse than previously. Otherwise patient has been afebrile. Denied any complaints of chest pain or shortness of breath. No nausea vomiting or abdominal pain. Pulmonary is following. All other review of systems negative except the above Active Medications Generic Name Dose Route Start Last Admin Trade Name Freq PRN Reason Stop Dose Admin Acetaminophen 650 mg 08/27/17 03:32 Tylenol Tab PO Q6HR PRN Mild Pain or Fever > 100.5 Hydrocodone Bitart/Acetaminophen 1 each 08/27/17 03:35 08/28/17 16:20 [place] 5-325 PO 1 each Q6H PRN Administration Pain Albuterol/Ipratropium 3 ml 08/27/17 03:35 Duoneb 0.5 Mg-3 Mg/3 Ml Soln INHALATION RT-Q4H PRN Shortness Of Breath Aspirin 81 mg 08/27/17 09:00 08/28/17 09:47 Aspirin PO 81 mg DAILY YANIRA Administration Baclofen 10 mg 08/27/17 03:35 08/28/17 13:15 Lioresal PO 10 mg Q8H PRN Administration Muscle Spasm Bisacodyl 10 mg 08/27/17 03:35 Dulcolax RECTAL Q72H PRN Constipation Calamine/Phenol 1 applic 08/27/17 09:00 08/28/17 16:19 Risamine Oint TOPICAL 1 applic TID YANIRA Administration Darbepoetin Pascual 40 mcg 08/31/17 09:00 Aranesp SQ TU YANIRA Ferrous Sulfate 325 mg 08/27/17 21:00 08/28/17 21:43 Feosol PO 325 mg HS YANIRA Administration Folic Acid 1 mg 08/27/17 21:00 08/28/17 21:43 Folic Acid PO 1 mg HS YANIRA Administration Gabapentin 300 mg 08/27/17 09:00 08/28/17 21:43 Neurontin PO 300 mg BID YANIRA Administration Norepinephrine Bitartrate 4 mg in 250 mls @ 0 mls/hr 08/27/17 19:00 08/28/17 12:30 Levophed-0.9% Nacl 4 Mg/250ml Pmx IV 0 mcg/min .Q0M YANIRA 0 mls/hr Protocol Titration Titrate Cefepime HCl 2 gm/ Sodium 50 mls @ 100 mls/hr 08/28/17 21:00 08/28/17 21:43 Chloride IVPB 100 mls/hr Q12HR YANIRA Administration Levothyroxine Sodium 50 mcg 08/27/17 06:30 08/28/17 06:54 Synthroid PO 50 mcg DAILY@0630 YANIRA Administration Lidocaine HCl 1 applic 08/27/17 09:00 08/28/17 16:19 Lmx 4 TOPICAL 1 applic TID YANIRA Administration Miscellaneous Information 1 each 08/28/17 07:34 Magnesium Per Protocol MISCELLANE DAILY PRN Per Protocol Protocol Miscellaneous Information 1 each 08/28/17 07:35 Potassium Per Protocol MISCELLANE DAILY PRN Per Protocol Protocol Miscellaneous Information 1 each 08/28/17 19:17 Potassium Per Protocol MISCELLANE DAILY PRN Per Protocol Protocol Morphine Sulfate 4 mg 08/27/17 03:32 Morphine Sulfate (Inj) IV Q4HR PRN Severe Pain Multivitamins 1 each 08/27/17 12:00 08/28/17 13:15 Theragran PO 1 each DAILY@1200 YANIRA Administration Naloxone HCl 0.2 mg 08/27/17 03:32 Narcan IV Q2M PRN Opioid Reversal Dimethyl Fumarate [ 240 mg 08/27/17 09:00 08/28/17 21:42 Tecfidera] 240 Mg PO Not Given BID COUNT INCLUDES THE [facility] Ondansetron HCl 4 mg 08/27/17 03:32 Zofran IVP Q8HR PRN Nausea And Vomiting Pantoprazole Sodium 40 mg 08/27/17 09:00 08/28/17 09:49 Protonix PO 40 mg DAILY YANIRA Administration Pravastatin Sodium 40 mg 08/27/17 21:00 08/28/17 21:43 Pravachol PO 40 mg HS COUNT INCLUDES THE [facility] Administration Promethazine HCl 0.5 mg 08/27/17 03:35 Phenergan IM Q6H PRN Nausea Rifampin 300 mg 08/27/17 09:00 08/28/17 21:43 Rifadin PO 300 mg BID YANIRA Administration Rivaroxaban 15 mg 08/27/17 09:00 08/28/17 21:43 Xarelto PO 15 mg BID COUNT INCLUDES THE [facility] Administration Sevelamer Carbonate 1,600 mg 08/27/17 07:30 08/28/17 17:23 Renvela PO 1,600 mg TID-W/MEALS COUNT INCLUDES THE [facility] Administration Sodium Bicarbonate 650 mg 08/27/17 09:00 08/28/17 16:20 Sodium Bicarbonate Tab PO 650 mg TID COUNT INCLUDES THE [facility] Administration Thiamine HCl 100 mg 08/27/17 21:00 08/28/17 21:44 Vitamin B-1 PO 100 mg HS YANIRA Administration Objective - Vital Signs Vital signs: Vital Signs Temp 99.2 F 08/28/17 20:00 Pulse 86 08/28/17 21:00 Resp 20 08/28/17 21:00 BP 97/53 08/28/17 21:00 Pulse Ox 98 08/28/17 21:00 Intake & Output 08/28/17 08/28/17 08/29/17 06:59 18:59 06:59 Intake Total 0746.948 6416.375 412.5 Output Total 2345 1640 320 Balance -593.938 307.375 92.5 Weight 116.9 kg Intake: IV 1300 1187.5 412.5 Magnesium Sulfate-D5w Pmx 200 1 gm In Dextrose/Water 1 100ml.bag @ 100 mls/hr IVPB Q1H YANIRA Rx#: [id number] NS 1300 900 300 Piperacillin-Tazobactam 3 87.5 12.5 .375 gm In Dextrose/Water 1 50ml.bag @ 12.5 mls/hr IVPB Q8HR COUNT INCLUDES THE [facility] Rx#: [id number] Potassium Chloride 10 meq 100 In Water For Injection 1 100ml.bag @ 100 mls/hr IVPB Q1H COUNT INCLUDES THE [facility] Rx#: [id number] Intake, IV Titration 61.062 39.875 Amount Norepinephrin 4 mg-0.9% 61.062 39.875 Ns Pmx 4 mg In 250 ml @ Titrate IV .Q0M COUNT INCLUDES THE [facility] Rx#: [id number] Oral 390 720 Output: Urine 2345 1640 320 Other: Voiding Method Indwelling Catheter Indwelling Catheter - Exam PHYSICAL EXAMINATION: Patient is lying in the bed comfortably, no acute distress, awake alert and oriented. Able to communicate appropriately. HEENT: Normocephalic. Neck is supple. Pupils reactive. Nostrils clear. Oral cavity is moist. Ears reveal no drainage. Neck reveals no JVD, carotid bruits, or thyromegaly. CHEST EXAMINATION: Trachea is central. Symmetrical expansion. Lung jennings clear to auscultation and percussion. CARDIAC: Normal S1, S2 with no gallops. No murmurs ABDOMEN: Soft. Nontender. Bowel sounds normal. No organomegaly. No abdominal bruits. Sacral decubitus ulcers. No signs of infection Extremities: Trace edema. No clubbing or cyanosis Neurologically awake, alert, oriented x3 with well-coordinated movements. No focal deficits noted Skin: No rash or skin lesions. Psychiatric: Cooperative. Nonsuicidal Musculoskeletal: No joint swelling or deformity. Normal range of motion. - Labs CBC & Chem 7: 08/28/17 07:04 08/28/17 17:49 Labs: Abnormal Lab Results - Last 24 Hours (Table) 08/28/17 08/28/17 08/28/17 Range/Units 07:04 07:04 17:49 WBC 11.9 H (3.8-10.6) k/uL Neutrophils # 10.0 H (1.3-7.7) k/uL Potassium 3.4 L 3.0 L* (3.5-5.1) mmol/L Chloride 108 H (98-107) mmol/L BUN 35 H (7-17) mg/dL Creatinine 1.10 H (0.52-1.04) mg/dL Microbiology - Last 24 Hours (Table) 08/27/17 17:03 Gram Stain - Preliminary Buttock Wound Culture - Preliminary Gram Neg Bacilli 08/27/17 00:05 Urine Culture - Final Urine,Catheterized 08/27/17 17:00 Anaerobic Culture - Preliminary Buttock 08/27/17 00:05 Blood Culture Gram Stain - Preliminary Blood Blood Culture - Preliminary Gram Neg Bacilli Assessment and Plan Assessment: Sepsis/secondary shock secondary to urinary tract infection. Catheter related. Requiring pressor support. Patient was febrile and hypotensive on admission. Septicemia with gram-negative bacilli Lactic acidosis secondary to above improved now. Multiple sclerosis. Patient is bedbound requiring 2 people assist to stand. 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 On daptomycin currently. past renal failure with hemodialysis-last time was July 2016 History of nicotine addiction Hyperlipidemia Morbid obesity BMI 40.5 Plan: Patient is being continued on norepinephrine. Currently being monitored in the MICU. Await final blood cultures and urine cultures and further recommendations based on the clinical course. Continue with daptomycin and added Zosyn. ID and pulmonary is on board. Prognosis is guarded. Time with Patient: Greater than 30
--- NOTE | 2017-08-28 23:13 | CONS ---
CONSULTATION DATE OF SERVICE: 08/28/2017. REASON FOR CONSULTATION: Gram-negative bacteremia and sepsis. HISTORY OF PRESENT ILLNESS: The patient is a 47-year-old female, well known to my service, where the patient has been treated for her sacral wound that did heal up completely and she was discharged from the wound care center. The patient did have urinary retention requiring a chronic indwelling Chaves catheter. The patient has been brought to the [facility] ER yesterday morning with chief complaint of mental status changes. The patient did have a fever of 104 degrees Fahrenheit. She was noticed to have some palpitation and her blood pressure was on the low side. With these symptoms, the patient was evaluated by the ER physician on arrival to the ER. The patient did have a low-grade fever of 99.7; however, the patient was significantly hypotensive with systolic down to 85 and diastolic of 52. The patient did have an elevated white count of 13.2. Her urine was significantly positive. Her Chaves was changed. She has been admitted to the ICU, where the patient did require Levophed, but that was turned off this morning. The patient has been treated with broad-spectrum antibiotic therapy in the form of daptomycin and Zosyn. Infectious Disease was consulted for further recommendations regarding antibiotic therapy. The patient at time of evaluation is awake and alert. She knows that she is in the hospital. The patient denies having any headache, denies having any chest pain or shortness of breath or any cough. No abdominal pain or any diarrhea. The patient did mention that her wound to the sacral area opened up a few weeks ago and is currently being taken care by the wound care nurse at [facility], although she is not sure of the type of dressing currently being applied. Denies having any pain to the sacral wound or any drainage. REVIEW OF SYSTEMS: CONSTITUTIONAL: Positive for weakness along with the fever. EYES: No complaint. ENT: No complaint. RESPIRATORY: No complaint. CARDIOVASCULAR: No complaint. GENITOURINARY: As per HPI. GASTROINTESTINAL: No complaint MUSCULOSKELETAL: As per HPI. INTEGUMENTARY: No complaint. PSYCHOLOGICAL: No complaint. ENDOCRINE: No complaint. NEUROLOGIC: No complaint. PAST MEDICAL HISTORY: Significant for acute renal failure requiring dialysis, hyperlipidemia, pneumonia, multiple sclerosis, stage IV infected sacral pressure ulcer with MRSA, neurogenic bladder with a chronic indwelling Chaves, UTI with sepsis. PAST SURGICAL HISTORY: Debridement of the sacral pressure ulcer, placement and subsequent removal, PICC line placement and subsequent removal and LP. SOCIAL HISTORY: No history of smoking, drinking or drug use. Currently a intermediate resident. FAMILY HISTORY: Mother with history of coronary disease, diabetes and hyperlipidemia. ALLERGIES: To [place]. MEDICATION: Include the patient is currently on: 1. Daptomycin. 2. Tylenol. 3. [place]. 4. DuoNeb. 5. Aspirin. 6. Baclofen. 7. Dulcolax. 8. Zosyn. 9. . 10.Iron sulfate. 11.Folic acid. 12.Synthroid. 13.Zofran. 14.Protonix. 15.Pravachol. 16.Phenergan. 17.Rifampin. 18.Xarelto. EXAMINATION: Blood pressure is 97/53, pulse 86, temperature 99.2. She is 98% on room air. General description is a middle aged female lying in bed in no distress. No tachypnea or accessory muscle of respiration use. HEENT shows slight pallor. No scleral icterus. Oral mucous membranes dry. No pharyngeal erythema or thrush. NECK: Trachea central. No thyromegaly. LUNGS: Unlabored breathing. Clear to auscultation anteriorly. No wheeze or crackle. HEART: S1, S2. Regular rate and rhythm. ABDOMEN: Soft, no tenderness. No guarding or rigidity. EXTREMITIES: No edema of feet. Sacral wound shows a stage III pressure ulcer, but no cellulitis, no slough tissue. SKIN: No rash or mass palpable. NEUROLOGICAL: Patient is awake, alert, oriented x3. Mood and affect normal. LABS: Hemoglobin 11.4, white count 11.9. Admission white count was 13.2. BUN of 35, creatinine is 1.10. Urine has been positive with slight leukocyte esterases, many bacteria with a culture currently pending. Blood cultures with gram-negative bacilli. DIAGNOSTIC IMPRESSION: Patient admitted to hospital with sepsis and patient did have fever , tachycardia, hypotension requiring fluid and Levophed support. Source is likely catheter-associated urinary tract infection. I clinically doubt infected sacral pressure ulcer, which currently looks clean without any cellulitis. The patient's abdomen is soft on clinical examination and no evidence of any pneumonia or cellulitis. PLAN: 1. Discontinue the daptomycin, as no evidence of any gram-positive infection. 2. We will switch her antibiotic therapy to cefepime 2 g q.12 to cover for the gram- negative catheter-associated urinary tract infection with secondary bacteremia. 3. Aquacel silver packing of the sacral wound. 4. We will follow up on clinical condition and culture to further adjust medication if needed. Thank you for this consultation. We will follow this patient along with you. MMHARPALL / IJN: [id number] /
[2017-08-29 03:20] LABS: Basophils % (A) 0 %; Eosinophils # (A) 0.2 k/uL (0-0.7); Eosinophils % (A) 2 %; HCT 30.5 % (34.0-46.0); Lymphocytes % (A) 13 %; MCH 28.2 pg (25.0-35.0); MCHC 32.8 g/dL (31.0-37.0); Mean Platelet Volume 7.5; Monocytes # (A) 0.3 k/uL (0-1.0); Monocytes % (A) 4 %; Neutrophils # (A) 5.6 k/uL (1.3-7.7); Neutrophils % (A) 77 %; Platelet Count 243 k/uL (150-450); RBC 3.55 m/uL (3.80-5.40); RDW 14.8 % (11.5-15.5); WBC 7.3 k/uL (3.8-10.6)
[2017-08-29 03:37] LABS: Calcium 8.8 mg/dL (8.4-10.2); Magnesium 2.5 mg/dL (1.6-2.3); Phosphorus 3.7 mg/dL (2.5-4.5); Potassium 4.3 mmol/L (3.5-5.1)
[2017-08-29] MEDS: HYDROcodone/APAP 5-325MG 1 EACH TAB PO PRN ×2 (06:36→21:18)
[2017-08-29] MEDS: LEVOTHYROXINE 50 MCG TAB PO SCH (06:37)
[2017-08-29] MEDS ORDERED: PIPERACILLIN-TAZOBACTAM 3.375 GM in DEXTROSE/WATER 1 50ML.BAG IVPB SCH (08:45)
[2017-08-29] MEDS: LIDOCAINE 4% CREAM 5 GM TUBE TOPICAL SCH ×3 (08:47→20:21)
[2017-08-29] MEDS: RIFAMPIN 300 MG CAP PO SCH ×2 (08:47→20:19)
[2017-08-29] MEDS: MENTHOL-ZINC OXIDE OINT 113 GM TUBE TOPICAL SCH ×3 (08:47→20:21)
[2017-08-29] MEDS: SODIUM BICARBONATE TAB 650 MG TAB PO SCH ×3 (08:48→21:18)
[2017-08-29] MEDS: GABAPENTIN 300 MG CAP PO SCH ×2 (08:48→20:19)
[2017-08-29] MEDS: SEVELAMER 800 MG TAB PO SCH ×3 (08:48→17:23)
[2017-08-29] MEDS: PANTOPRAZOLE 40 MG TABLET PO SCH (08:48)
[2017-08-29] MEDS: RIVAROXABAN 15 MG TAB PO SCH ×2 (08:48→20:20)
[2017-08-29] MEDS: ASPIRIN 81 MG PO SCH (08:49)
[2017-08-29] MEDS: Dimethyl Fumarate [Tecfidera] 240 MG PO SCH ×2 (08:51→20:18)
[2017-08-29 12:38] VITALS: BMI 42.2
[2017-08-29] MEDS: MULTIVITAMINS, THERA 1 EACH TAB PO SCH (12:50)
--- NOTE | 2017-08-29 16:15 | P.PN ---
Subjective Progress Note Date: 08/29/17 Principal diagnosis: Acute sepsis and septic shock This is a very pleasant 47-year-old female patient who follows with Dr. Mojica as her primary care physician. 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 She resides at the [facility]. She was transported here to the emergency room late last night after developing a fever of 104. She was noted to be feeling weak and low blood pressure. She initially required norepinephrine at 15 mcg/m. Currently at 5 mcg/m. She is seen in consultation in the emergency room. She is sitting up in bed tolerating a full diet. She is awake and alert in no acute distress. Current blood pressure 134/64. She has received 2 L of fluid resuscitation. White count 13.2. Hemoglobin 12.5. Potassium 3.8. Creatinine 1.20. Initial lactic 3.0 currently 1.3. Urine is cloudy with large leukocyte esterase and 9 WBC with many bacteria. Preliminary blood culture reveals gram-negative bacilli. She currently denies any shortness of breath, cough or congestion. Maintaining good O2 saturations in the 90s on room air. She denies any palpitations. No lightheadedness or dizziness. Patient was reevaluated today in the ICU on 08/28/2017, doing better, however she remains on norepinephrine at 2 mcg/m. Her blood cultures came back positive for gram-negative bacilli, patient has been on daptomycin, and Zosyn was added. Infectious disease consultation is pending. WBC count is 11.9 hemoglobin is 11.4. Renal profile seems to be a bit improved. Blood sugar is 270 this morning. Chest x-ray showed poor inspiratory effort, low lung volumes, otherwise unremarkable. Clinically, overall, the patient is doing better today compared to yesterday. However she will remain in the ICU because she remains on norepinephrine. Patient was reevaluated today on 08/29/2017, she is on the medical floor, hemodynamically stable, on antibiotics for E. coli sepsis, septic shock, and bacteremia. She is now on meropenem as ordered by infectious disease on the case. No need for any other antibiotics at this point. Patient is relatively asymptomatic. Objective - Vital Signs Vital signs: Vital Signs Temp 97.8 F 08/29/17 15:00 Pulse 80 08/29/17 15:00 Resp 18 08/29/17 15:00 BP 109/60 08/29/17 15:00 Pulse Ox 98 08/29/17 15:00 Intake & Output 08/28/17 08/29/17 08/29/17 18:59 06:59 18:59 Intake Total 5349.692 6946.5 180 Output Total 1640 1470 Balance 307.375 42.5 180 Weight 116.9 kg Intake: IV 1187.5 1512.5 180 Cefepime 2 gm In Sodium 100 Chloride 0.9% 50 ml @ 100 mls/hr IVPB Q12HR YANIRA Rx #:[id number] Magnesium Sulfate-D5w Pmx 200 1 gm In Dextrose/Water 1 100ml.bag @ 100 mls/hr IVPB Q1H YANIRA Rx#: [id number] NS 900 1200 180 Piperacillin-Tazobactam 3 87.5 12.5 .375 gm In Dextrose/Water 1 50ml.bag @ 12.5 mls/hr IVPB Q8HR YANIRA Rx#: [id number] Potassium Chloride 10 meq 200 In Water For Injection 1 100ml.bag @ 100 mls/hr IVPB Q1H YANIRA Rx#: [id number] Intake, IV Titration 39.875 Amount Norepinephrin 4 mg-0.9% 39.875 Ns Pmx 4 mg In 250 ml @ Titrate IV .Q0M YANIRA Rx#: [id number] Oral 720 Output: Urine 1640 1470 Other: Voiding Method Indwelling Catheter Indwelling Catheter Indwelling Catheter - Exam - Constitutional General appearance: obese, in no form of respiratory distress, pleasant. - EENT Eyes: EOMI, PERRLA ENT: hearing grossly normal, moist mucous membranes, no stridor. Ears: bilateral: normal - Neck Neck: normal ROM no neck masses, no JVD. Carotids: bilateral: upstroke normal Thyroid: bilateral: normal size - Respiratory Respiratory: bilateral: CTA, no crackles, no rhonchi, no wheezes, symmetrical expansion, no chest wall tenderness. - Cardiovascular Rhythm: regular Heart sounds: normal: S1, S2 - Gastrointestinal General gastrointestinal: Soft abdomen, no megaly, no rebound, no guarding, positive bowel sounds. - Integumentary Integumentary: normal turgor, patient has sacral decubitus ulcer, not evaluated today. - Neurologic Multiple sclerosis Neurologic: CNII-XII intact - Musculoskeletal Musculoskeletal: generalized weakness - Psychiatric Psychiatric: A&O x's 3 Skin: As noted above. - Labs CBC & Chem 7: 08/29/17 03:08 08/29/17 03:08 Labs: Abnormal Lab Results - Last 24 Hours (Table) 08/28/17 08/29/17 08/29/17 Range/Units 17:49 03:08 03:08 RBC 3.55 L (3.80-5.40) m/uL Hgb 10.0 L (11.4-16.0) gm/dL Hct 30.5 L (34.0-46.0) % Potassium 3.0 L* (3.5-5.1) mmol/L Chloride 108 H (98-107) mmol/L BUN 29 H (7-17) mg/dL Creatinine 1.20 H (0.52-1.04) mg/dL Magnesium 2.5 H (1.6-2.3) mg/dL Microbiology - Last 24 Hours (Table) 08/27/17 00:05 Urine Culture - Final Urine,Catheterized 08/27/17 00:05 Blood Culture Gram Stain - Final Blood Blood Culture - Final Escherichia coli 08/27/17 17:03 Gram Stain - Preliminary Buttock Wound Culture - Preliminary Gram Neg Bacilli Assessment and Plan Assessment: #1 acute septic shock and sepsis secondary to E. coli urinary tract infection #2 Hypotension secondary to above. Resolved. #3 lactic acidosis secondary to sepsis and septic shock. Resolved #4 Multiple sclerosis with urinary incontinence, mainly bedbound with periods of wheelchair use requiring 2 people assist to stand. #5 History of frequent urinary tract infections. #6 Previous history of MRSA bacteremia. #7 End-stage renal disease requiring hemodialysis. #8 Remote history of chronic tobacco dependence. #10 Hyperlipidemia. Recommendation: Continue antibiotics as per infectious disease on the case, patient is presently on Merrem, that should cover her infection quite nicely, may need to be on IV antibiotics at home for a couple of weeks. Decision will be made by infectious disease on the case. Time with Patient: Less than 30
[2017-08-29] MEDS: MEROPENEM 1 GM in SODIUM CHLORIDE 0.9% 100 ML IVPB SCH ×2 (17:22→23:00)
[2017-08-29] MEDS: FOLIC ACID 1 MG TAB PO SCH (20:19)
[2017-08-29] MEDS: FERROUS SULFATE 325 MG TAB PO SCH (20:19)
[2017-08-29] MEDS: PRAVASTATIN SODIUM 40 MG TAB PO SCH (20:19)
[2017-08-29] MEDS: THIAMINE 100 MG TAB PO SCH (20:20)
--- NOTE | 2017-08-29 22:13 | PN ---
PROGRESS NOTE DATE OF SERVICE: 08/29/2017. REASON FOR FOLLOWUP: ESBL bacteremia secondary to urinary source with sepsis. INTERVAL HISTORY: The patient is currently afebrile. He is breathing comfortably. He denies any chest pain or shortness of breath, cough. No abdominal pain. No diarrhea. EXAMINATION: Blood pressure 109/60 with a pulse of 80, temperature 97.8. She is 98% on room air. General description is a middle-aged female, lying in bed in no distress. Respiratory system: Unlabored breathing. Clear to auscultation anteriorly. Heart S1, S2, regular rate and rhythm. Abdomen soft. No tenderness. LABS: Hemoglobin is 10, white count 7.3 with a BUN of 29, creatinine 1.20. DIAGNOSTIC IMPRESSION AND PLAN: Patient with an ESBL E coli bacteremia secondary to the urinary source. Clinical suspicion low for osteomyelitis. The patient is pathogen from the gluteal area. A CT of the will be done to assess for osteomyelitis. Antibiotic has been adjusted to meropenem 1 g q.8h and watch clinical course closely. Local care to the sacral wound with the Aquacel silver dressing. Continue supportive care. MMODL / IJN: [id number] /
--- NOTE | 2017-08-29 23:54 | P.PN ---
Subjective Progress Note Date: 08/29/17 Principal diagnosis: Urine tract infection and sepsis Patient is a 47 old female with a known history of multiple sclerosis, hyperlipidemia and previous history of UTI, neurogenic bladder and ESRD on hemodialysis as well as sacral decub ulcer status post recent surgery and chronic indwelling Chaves catheter and multiple other medical problems who resides at a [facility] was brought to the hospital due to altered mental status and fever with T-max of 104. Patient says that around 2 PM yesterday felt feverish and clammy and not feeling right.. Patient also having nausea and 1 episode of vomiting and felt very weak and could not move especially right hand. Patient does have chronic left-sided weakness compared to right. Patient otherwise denied any cough or sputum production. No chest pain or shortness of breath. No headache or dizziness or lightheadedness. Patient was hypotensive on admission. Lactic acid 3.0. WBC 13.2 potassium 2.8 on admission UA showed large leukocyte esterase many bacteria and WBC count 9. EKG showed sinus tachycardia Chest x-ray showed poorly is present in no acute process 08/28/2017 Patient is awake and oriented 3. Patient is still hypotensive and requiring pressor support. Blood cultures came out positive for gram-negative bacilli. Zosyn was added. ID is following. Chest x-ray showed poor inspiratory for 10 worse than previously. Otherwise patient has been afebrile. Denied any complaints of chest pain or shortness of breath. No nausea vomiting or abdominal pain. Pulmonary is following. All other review of systems negative except the above 08/29/2017 Patient denied any complaints of chest pain or shortness of breath. Patient has been afebrile. Off pressors support. Patient was transferred to medical floor otherwise. Patient is being continued on antibiotics in the form of meropenem. Wound cultures and blood cultures showed ESBL E. coli. No complaints of chest pain or shortness of breath. No fever no chills. No other acute overnight issues. ID and pulmonary is following. Active Medications Active Medications Generic Name Dose Route Start Last Admin Trade Name Freq PRN Reason Stop Dose Admin Acetaminophen 650 mg 08/27/17 03:32 Tylenol Tab PO Q6HR PRN Mild Pain or Fever > 100.5 Hydrocodone Bitart/Acetaminophen 1 each 08/27/17 03:35 08/29/17 21:18 [place] 5-325 PO 1 each Q6H PRN Administration Pain Albuterol/Ipratropium 3 ml 08/27/17 03:35 Duoneb 0.5 Mg-3 Mg/3 Ml Soln INHALATION RT-Q4H PRN Shortness Of Breath Aspirin 81 mg 08/27/17 09:00 08/29/17 08:49 Aspirin PO 81 mg DAILY YANIRA Administration Baclofen 10 mg 08/27/17 03:35 08/28/17 13:15 Lioresal PO 10 mg Q8H PRN Administration Muscle Spasm Bisacodyl 10 mg 08/27/17 03:35 Dulcolax RECTAL Q72H PRN Constipation Calamine/Phenol 1 applic 08/27/17 09:00 08/29/17 20:21 Risamine Oint TOPICAL 1 applic TID YANIRA Administration Darbepoetin Pascual 40 mcg 08/31/17 09:00 Aranesp SQ TU YANIRA Ferrous Sulfate 325 mg 08/27/17 21:00 08/29/17 20:19 Feosol PO 325 mg HS YANIRA Administration Folic Acid 1 mg 08/27/17 21:00 08/29/17 20:19 Folic Acid PO 1 mg HS YANIRA Administration Gabapentin 300 mg 08/27/17 09:00 08/29/17 20:19 Neurontin PO 300 mg BID YANIRA Administration Meropenem 1 gm/ Sodium 100 mls @ 200 mls/hr 08/29/17 16:00 08/29/17 23:00 Chloride IVPB 200 mls/hr Q8HR YANIRA Administration Levothyroxine Sodium 50 mcg 08/27/17 06:30 08/29/17 06:37 Synthroid PO 50 mcg DAILY@0630 YANIRA Administration Lidocaine HCl 1 applic 08/27/17 09:00 08/29/17 20:21 Lmx 4 TOPICAL 1 applic TID YANIRA Administration Miscellaneous Information 1 each 08/28/17 07:34 Magnesium Per Protocol MISCELLANE DAILY PRN Per Protocol Protocol Miscellaneous Information 1 each 08/28/17 19:17 Potassium Per Protocol MISCELLANE DAILY PRN Per Protocol Protocol Morphine Sulfate 4 mg 08/27/17 03:32 Morphine Sulfate (Inj) IV Q4HR PRN Severe Pain Multivitamins 1 each 08/27/17 12:00 08/29/17 12:50 Theragran PO 1 each DAILY@1200 YANIRA Administration Naloxone HCl 0.2 mg 08/27/17 03:32 Narcan IV Q2M PRN Opioid Reversal Dimethyl Fumarate [ 240 mg 08/27/17 09:00 08/29/17 20:18 Tecfidera] 240 Mg PO Not Given BID [facility] Ondansetron HCl 4 mg 08/27/17 03:32 Zofran IVP Q8HR PRN Nausea And Vomiting Pantoprazole Sodium 40 mg 08/27/17 09:00 08/29/17 08:48 Protonix PO 40 mg DAILY [facility] Administration Pravastatin Sodium 40 mg 08/27/17 21:00 08/29/17 20:19 Pravachol PO 40 mg HS [facility] Administration Promethazine HCl 0.5 mg 08/27/17 03:35 Phenergan IM Q6H PRN Nausea Rifampin 300 mg 08/27/17 09:00 08/29/17 20:19 Rifadin PO 300 mg BID [facility] Administration Rivaroxaban 15 mg 08/27/17 09:00 08/29/17 20:20 Xarelto PO 15 mg BID [facility] Administration Sevelamer Carbonate 1,600 mg 08/27/17 07:30 08/29/17 17:23 Renvela PO 1,600 mg TID-W/MEALS [facility] Administration Sodium Bicarbonate 650 mg 08/27/17 09:00 08/29/17 21:18 Sodium Bicarbonate Tab PO 650 mg TID [facility] Administration Thiamine HCl 100 mg 08/27/17 21:00 08/29/17 20:20 Vitamin B-1 PO 100 mg HS [facility] Administration Objective - Vital Signs Vital signs: Vital Signs Temp 97.9 F 08/29/17 04:00 Pulse 81 08/29/17 06:30 Resp 22 08/29/17 06:30 BP 98/47 08/29/17 08:43 Pulse Ox 96 08/29/17 06:30 Intake & Output 08/28/17 08/29/17 08/29/17 18:59 06:59 18:59 Intake Total 2665.336 4468.5 Output Total 1640 1470 Balance 307.375 42.5 Weight 116.9 kg Intake: IV 1187.5 1512.5 Cefepime 2 gm In Sodium 100 Chloride 0.9% 50 ml @ 100 mls/hr IVPB Q12HR [facility] Rx #:[id number] Magnesium Sulfate-D5w Pmx 200 1 gm In Dextrose/Water 1 100ml.bag @ 100 mls/hr IVPB Q1H YANIRA Rx#: [id number] NS 900 1200 Piperacillin-Tazobactam 3 87.5 12.5 .375 gm In Dextrose/Water 1 50ml.bag @ 12.5 mls/hr IVPB Q8HR YANIRA Rx#: [id number] Potassium Chloride 10 meq 200 In Water For Injection 1 100ml.bag @ 100 mls/hr IVPB Q1H YANIRA Rx#: [id number] Intake, IV Titration 39.875 Amount Norepinephrin 4 mg-0.9% 39.875 Ns Pmx 4 mg In 250 ml @ Titrate IV .Q0M YANIRA Rx#: [id number] Oral 720 Output: Urine 1640 1470 Other: Voiding Method Indwelling Catheter Indwelling Catheter Indwelling Catheter - Exam PHYSICAL EXAMINATION: Patient is lying in the bed comfortably, no acute distress, awake alert and oriented. Able to communicate appropriately. HEENT: Normocephalic. Neck is supple. Pupils reactive. Nostrils clear. Oral cavity is moist. Ears reveal no drainage. Neck reveals no JVD, carotid bruits, or thyromegaly. CHEST EXAMINATION: Trachea is central. Symmetrical expansion. Lung jennings clear to auscultation and percussion. CARDIAC: Normal S1, S2 with no gallops. No murmurs ABDOMEN: Soft. Nontender. Bowel sounds normal. No organomegaly. No abdominal bruits. Sacral decubitus ulcers. No signs of infection Extremities: Trace edema. No clubbing or cyanosis Neurologically awake, alert, oriented x3 with well-coordinated movements. No focal deficits noted Skin: No rash or skin lesions. Sacral decub ulcers. Psychiatric: Cooperative. Nonsuicidal Musculoskeletal: No joint swelling or deformity. Normal range of motion. - Labs CBC & Chem 7: 08/29/17 03:08 08/29/17 03:08 Labs: Abnormal Lab Results - Last 24 Hours (Table) 08/28/17 08/29/17 08/29/17 Range/Units 17:49 03:08 03:08 RBC 3.55 L (3.80-5.40) m/uL Hgb 10.0 L (11.4-16.0) gm/dL Hct 30.5 L (34.0-46.0) % Potassium 3.0 L* (3.5-5.1) mmol/L Chloride 108 H (98-107) mmol/L BUN 29 H (7-17) mg/dL Creatinine 1.20 H (0.52-1.04) mg/dL Magnesium 2.5 H (1.6-2.3) mg/dL Microbiology - Last 24 Hours (Table) 08/27/17 00:05 Urine Culture - Final Urine,Catheterized 08/27/17 00:05 Blood Culture Gram Stain - Final Blood Blood Culture - Final Escherichia coli 08/27/17 17:03 Gram Stain - Preliminary Buttock Wound Culture - Preliminary Gram Neg Bacilli Assessment and Plan Assessment: Sepsis/secondary shock secondary to urinary tract infection. Catheter related. Requiring pressor support. Patient was febrile and hypotensive on admission. Off pressors now E. coli Septicemia Lactic acidosis secondary to above improved now. Multiple sclerosis. Patient is bedbound requiring 2 people assist to stand. 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 On daptomycin currently. past renal failure with hemodialysis-last time was July 2016 History of nicotine addiction Hyperlipidemia Morbid obesity BMI 40.5 Plan: Patient is of pressor support. Currently transferred to general medical floor. Antibiotics have been changed to meropenem as per culture report. ID and pulmonary is following. CT pelvis was ordered to rule out osteomyelitis. further recommendations based on the clinical course. Continue with daptomycin and added Zosyn. ID and pulmonary is on board. Prognosis is guarded. Time with Patient: Greater than 30
[2017-08-30] MEDS: LEVOTHYROXINE 50 MCG TAB PO SCH (05:38)
[2017-08-30] MEDS: HYDROcodone/APAP 5-325MG 1 EACH TAB PO PRN ×2 (05:38→12:45)
[2017-08-30 07:02] LABS: Basophils % (A) 1 %; Eosinophils # (A) 0.2 k/uL (0-0.7); Eosinophils % (A) 4 %; HCT 32.2 % (34.0-46.0); HGB 10.5 gm/dL (11.4-16.0); Lymphocytes # (A) 0.8 k/uL (1.0-4.8); Lymphocytes % (A) 15 %; MCH 27.7 pg (25.0-35.0); MCHC 32.6 g/dL (31.0-37.0); MCV 84.9 fL (80.0-100.0); Mean Platelet Volume 8.1; Monocytes # (A) 0.2 k/uL (0-1.0); Monocytes % (A) 4 %; Neutrophils # (A) 3.7 k/uL (1.3-7.7); Neutrophils % (A) 73 %; Platelet Count 257 k/uL (150-450); RBC 3.79 m/uL (3.80-5.40); RDW 14.6 % (11.5-15.5); WBC 5.1 k/uL (3.8-10.6)
[2017-08-30 07:22] LABS: C Reactive Protein 66.2 mg/L (<10.0); Calcium 8.7 mg/dL (8.4-10.2); Potassium 3.9 mmol/L (3.5-5.1)
[2017-08-30] MEDS: SEVELAMER 800 MG TAB PO SCH ×3 (08:00→18:13)
[2017-08-30] MEDS: MEROPENEM 1 GM in SODIUM CHLORIDE 0.9% 100 ML IVPB SCH ×3 (08:27→23:20)
[2017-08-30] MEDS: SODIUM BICARBONATE TAB 650 MG TAB PO SCH ×3 (08:28→21:19)
[2017-08-30] MEDS: LIDOCAINE 4% CREAM 5 GM TUBE TOPICAL SCH ×3 (08:29→21:21)
[2017-08-30] MEDS: RIFAMPIN 300 MG CAP PO SCH ×2 (08:29→21:19)
[2017-08-30] MEDS: GABAPENTIN 300 MG CAP PO SCH ×2 (08:29→21:19)
[2017-08-30] MEDS: ASPIRIN 81 MG PO SCH (08:29)
[2017-08-30] MEDS: RIVAROXABAN 15 MG TAB PO SCH ×2 (08:29→21:19)
[2017-08-30] MEDS: PANTOPRAZOLE 40 MG TABLET PO SCH (08:29)
[2017-08-30] MEDS: Dimethyl Fumarate [Tecfidera] 240 MG PO SCH ×3 (08:30→18:21)
[2017-08-30] MEDS: MENTHOL-ZINC OXIDE OINT 113 GM TUBE TOPICAL SCH ×3 (08:32→21:21)
[2017-08-30 08:38] LABS: Erythrocyte Sedimentation Rate 58 mm/hr (0-20)
--- NOTE | 2017-08-30 09:31 | CT ---
EXAMINATION TYPE: CT pelvis w con DATE OF EXAM: 08/30/2017 COMPARISON: 05/24/2016 HISTORY: Sacrum Osteomyelitis CT DLP: 1083.3 mGycm Automated exposure control for dose reduction was used. CONTRAST: Performed with IV Contrast, patient injected with 100 mL of Isovue 300. FINDINGS: There is arthropathy of the hip joints greater on the right. Chaves catheter is incidentally noted wit hin the bladder which contains air. Radiopaque densities within the rectum may be related to ingested debris. Extensive retained fecal debris noted. Trace amount of free fluid noted. Facet arthropathy is noted and there is degenerative disc disease of the lower lumbar spine. Suspect a 2 cm right ovarian cyst. There is abnormal attenuation within the soft tissues midline extending to the posterior margin of th e coccyx. Previously noted destruction involving the coccyx is again seen. There is to be air trackin g from the epidermis suggestive of the fistula with soft tissue ulceration. There is loss of cortical bone and abnormal pattern to the marrow of the coccyx compatible with osteomyelitis. Extends to the sacrococcygeal junction.. IMPRESSION: SKIN THICKENING WITH SUSPECTED SOFT TISSUE ULCERATION MILD DIFFUSE INFLAMMATORY CHANGE AND FISTULA TR ACT EXTENDING TO THE SACROCOCCYGEAL JUNCTION. PREVIOUSLY NOTED DESTRUCTION OF THE COCCYX IS AGAIN SEE N. FINDINGS COMPATIBLE WITH OSTEOMYELITIS. 2 CM RIGHT OVARIAN CYST SUSPECTED.
[2017-08-30] MEDS: MULTIVITAMINS, THERA 1 EACH TAB PO SCH (12:47)
--- NOTE | 2017-08-30 13:51 | P.PN ---
Subjective Progress Note Date: 08/30/17 Principal diagnosis: Sepsis Progress note dated 08/30/2017 47-year-old female with a history of acute septic shock and sepsis secondary to E. coli urinary tract infection, with associated hypotension and lactic acidemia. All of that is pretty much resolved. She does have a history of multiple sclerosis with urinary incontinence, history of frequent urinary tract infections, previous history of MRSA bacteremia, end-stage renal disease requiring hemodialysis, remote history of chronic tobacco dependence, and hyperlipidemia. The patient's currently on Merrem and doing relatively well. Seen by the infectious disease doctor earlier today. The patient's clinically very stable. Denies any particular complaints. She is 47 years of age. Objective - Vital Signs Vital signs: Vital Signs Temp 97.5 F L 08/30/17 05:00 Pulse 79 08/30/17 08:00 Resp 16 08/30/17 08:00 BP 115/62 08/30/17 05:00 Pulse Ox 98 08/30/17 05:00 Intake & Output 08/29/17 08/30/17 08/30/17 18:59 06:59 18:59 Intake Total 180 1280 1800 Output Total 1500 700 Balance -0208 301 6744 Weight 116.9 kg Intake: IV 180 NS 180 Intake, IV Titration 100 Amount Meropenem 1 gm In Sodium 100 Chloride 0.9% 100 ml @ 200 mls/hr IVPB Q8HR [facility] Rx#:[id number] Oral 1180 1800 Output: Urine 1500 700 Other: Voiding Method Indwelling Catheter Indwelling Catheter Indwelling Catheter - Exam No acute distress, oriented 3. Looks chronically ill. HEENT examination is grossly unremarkable. Mucous membranes are moist. No oral lesions. Neck supple. Full range of motion. No adenopathy thyromegaly or neck vein distention. Cardiovascular examination reveals regular rhythm rate. S1-S2 normal. No S3 or S4. No discernible murmur noted. Lungs reveal clear breath sounds. Her sounds are equal bilaterally. No adventitious lung sounds including wheezes rhonchi or crackles. Abdomen soft bowel sounds are heard. No masses or tenderness. Extremities are intact. No cyanosis clubbing or edema. Skin is without rash or lesion. Neurologic examination is brief but nonfocal. - Labs CBC & Chem 7: 08/30/17 06:52 08/30/17 06:52 Labs: Abnormal Lab Results - Last 24 Hours (Table) 08/30/17 08/30/17 Range/Units 06:52 06:52 RBC 3.79 L (3.80-5.40) m/uL Hgb 10.5 L (11.4-16.0) gm/dL Hct 32.2 L (34.0-46.0) % Lymphocytes # 0.8 L (1.0-4.8) k/uL ESR 58 H (0-20) mm/hr Chloride 108 H (98-107) mmol/L BUN 21 H (7-17) mg/dL C-Reactive Protein 66.2 H (<10.0) mg/L Microbiology - Last 24 Hours (Table) 08/27/17 00:05 Blood Culture Gram Stain - Final Blood Blood Culture - Final Escherichia coli 08/27/17 17:03 Gram Stain - Final Buttock Wound Culture - Final Escherichia coli 08/27/17 00:05 Urine Culture - Final Urine,Catheterized Assessment and Plan Assessment: Assessment Acute septic shock and sepsis secondary to E. coli urinary tract infection Hypotension and lactic acidemia secondary to above Multiple sclerosis with urinary incontinence History of frequent urinary tract infections Previous history of MRSA bacteremia End-stage renal disease, requiring hemodialysis Remote history of chronic tobacco dependence Hyperlipidemia Plan: Plan dated 08/30/2017 Patient seemed to do relatively well. We'll continue on current antibiotics. Being followed by the hospitalist and infectious disease doctor. From the critical care standpoint, she is stable. No active pulmonary issues at this time. We will continue to follow as needed. Time with Patient: Less than 30
--- NOTE | 2017-08-30 20:49 | PN ---
PROGRESS NOTE DATE OF SERVICE: 08/30/2017. REASON FOR FOLLOWUP: ESBL Escherichia coli bacteremia, source questionable sacral osteomyelitis. INTERVAL HISTORY: The patient is afebrile. She is breathing comfortably. Denies having any chest pain or shortness of breath or cough. No abdominal pain or any diarrhea. EXAMINATION: Blood pressure is 121/72 with a pulse of 77, temperature 97.5. She is 96% on room air. GENERAL DESCRIPTION: A middle aged female lying in bed in no distress. RESPIRATORY SYSTEM: Unlabored breathing. Clear to auscultation anteriorly. HEART: S1, S2. Regular rate and rhythm. ABDOMEN: Soft, no tenderness. LABS: Hemoglobin is 10.5 with white count 5.1, BUN of 21, creatinine 1.0. DIAGNOSTIC IMPRESSION AND PLAN: Patient with ESBL Escherichia coli bacteremia. Initial concern for possibly renal source as the patient did have significantly positive UA. Urine culture came back negative. The culture from the sacral wound are showing the same pathogen and the CT is suspicious for an osteomyelitis. The patient will need a PICC line for outpatient IV Invanz 1 g daily for a total of 6 weeks. Local wound care to continue with Aquacel Silver packing. Keep the area off the pressure. Continue supportive care. MMODL / IJN: [id number] /
[2017-08-30] MEDS: FERROUS SULFATE 325 MG TAB PO SCH (21:19)
[2017-08-30] MEDS: PRAVASTATIN SODIUM 40 MG TAB PO SCH (21:19)
[2017-08-30] MEDS: THIAMINE 100 MG TAB PO SCH (21:19)
[2017-08-30] MEDS: FOLIC ACID 1 MG TAB PO SCH (21:19)
--- NOTE | 2017-08-31 00:53 | P.PN ---
Subjective Progress Note Date: 08/30/17 Principal diagnosis: Urine tract infection and sepsis Patient is a 47 old female with a known history of multiple sclerosis, hyperlipidemia and previous history of UTI, neurogenic bladder and ESRD on hemodialysis as well as sacral decub ulcer status post recent surgery and chronic indwelling Chaves catheter and multiple other medical problems who resides at a [facility] was brought to the hospital due to altered mental status and fever with T-max of 104. Patient says that around 2 PM yesterday felt feverish and clammy and not feeling right.. Patient also having nausea and 1 episode of vomiting and felt very weak and could not move especially right hand. Patient does have chronic left-sided weakness compared to right. Patient otherwise denied any cough or sputum production. No chest pain or shortness of breath. No headache or dizziness or lightheadedness. Patient was hypotensive on admission. Lactic acid 3.0. WBC 13.2 potassium 2.8 on admission UA showed large leukocyte esterase many bacteria and WBC count 9. EKG showed sinus tachycardia Chest x-ray showed poorly is present in no acute process 08/28/2017 Patient is awake and oriented 3. Patient is still hypotensive and requiring pressor support. Blood cultures came out positive for gram-negative bacilli. Zosyn was added. ID is following. Chest x-ray showed poor inspiratory for 10 worse than previously. Otherwise patient has been afebrile. Denied any complaints of chest pain or shortness of breath. No nausea vomiting or abdominal pain. Pulmonary is following. All other review of systems negative except the above 08/29/2017 Patient denied any complaints of chest pain or shortness of breath. Patient has been afebrile. Off pressors support. Patient was transferred to medical floor otherwise. Patient is being continued on antibiotics in the form of meropenem. Wound cultures and blood cultures showed ESBL E. coli. No complaints of chest pain or shortness of breath. No fever no chills. No other acute overnight issues. ID and pulmonary is following. 08/30/2017 Patient is awake oriented 3. Patient is being continued on antibiotics for ESBL E. coli and CT pelvis showed osteoarthritis as well. CT pelvis showed skin thickening with suspected soft tissue ulceration mild diffuse inflammatory change and fistula tract extending to the sacral coccygeal junction. Previously noted destruction of the coccyx again seen. findings compatible with osteomyelitis. Patient will need PICC line and ID is following. No fever no chills. Hemodynamically stable otherwise. Active Medications Generic Name Dose Route Start Last Admin Trade Name Freq PRN Reason Stop Dose Admin Acetaminophen 650 mg 08/27/17 03:32 Tylenol Tab PO Q6HR PRN Mild Pain or Fever > 100.5 Hydrocodone Bitart/Acetaminophen 1 each 08/27/17 03:35 08/29/17 21:18 [place] 5-325 PO 1 each Q6H PRN Administration Pain Albuterol/Ipratropium 3 ml 08/27/17 03:35 Duoneb 0.5 Mg-3 Mg/3 Ml Soln INHALATION RT-Q4H PRN Shortness Of Breath Aspirin 81 mg 08/27/17 09:00 08/29/17 08:49 Aspirin PO 81 mg DAILY YANIRA Administration Baclofen 10 mg 08/27/17 03:35 08/28/17 13:15 Lioresal PO 10 mg Q8H PRN Administration Muscle Spasm Bisacodyl 10 mg 08/27/17 03:35 Dulcolax RECTAL Q72H PRN Constipation Calamine/Phenol 1 applic 08/27/17 09:00 08/29/17 20:21 Risamine Oint TOPICAL 1 applic TID YANIRA Administration Darbepoetin Pascual 40 mcg 08/31/17 09:00 Aranesp SQ TU YANIRA Ferrous Sulfate 325 mg 08/27/17 21:00 08/29/17 20:19 Feosol PO 325 mg HS YANIRA Administration Folic Acid 1 mg 08/27/17 21:00 08/29/17 20:19 Folic Acid PO 1 mg HS YANIRA Administration Gabapentin 300 mg 08/27/17 09:00 08/29/17 20:19 Neurontin PO 300 mg BID YANIRA Administration Meropenem 1 gm/ Sodium 100 mls @ 200 mls/hr 08/29/17 16:00 08/29/17 23:00 Chloride IVPB 200 mls/hr Q8HR YANIRA Administration Levothyroxine Sodium 50 mcg 08/27/17 06:30 08/29/17 06:37 Synthroid PO 50 mcg DAILY@0630 YANIRA Administration Lidocaine HCl 1 applic 08/27/17 09:00 08/29/17 20:21 Lmx 4 TOPICAL 1 applic TID YANIRA Administration Miscellaneous Information 1 each 08/28/17 07:34 Magnesium Per Protocol MISCELLANE DAILY PRN Per Protocol Protocol Miscellaneous Information 1 each 08/28/17 19:17 Potassium Per Protocol MISCELLANE DAILY PRN Per Protocol Protocol Morphine Sulfate 4 mg 08/27/17 03:32 Morphine Sulfate (Inj) IV Q4HR PRN Severe Pain Multivitamins 1 each 08/27/17 12:00 08/29/17 12:50 Theragran PO 1 each DAILY@1200 YANIRA Administration Naloxone HCl 0.2 mg 08/27/17 03:32 Narcan IV Q2M PRN Opioid Reversal Dimethyl Fumarate [ 240 mg 08/27/17 09:00 08/29/17 20:18 Tecfidera] 240 Mg PO Not Given BID YANIRA Ondansetron HCl 4 mg 08/27/17 03:32 Zofran IVP Q8HR PRN Nausea And Vomiting Pantoprazole Sodium 40 mg 08/27/17 09:00 08/29/17 08:48 Protonix PO 40 mg DAILY YANIRA Administration Pravastatin Sodium 40 mg 08/27/17 21:00 08/29/17 20:19 Pravachol PO 40 mg HS YANIRA Administration Promethazine HCl 0.5 mg 08/27/17 03:35 Phenergan IM Q6H PRN Nausea Rifampin 300 mg 08/27/17 09:00 08/29/17 20:19 Rifadin PO 300 mg BID YANIRA Administration Rivaroxaban 15 mg 08/27/17 09:00 08/29/17 20:20 Xarelto PO 15 mg BID YANIRA Administration Sevelamer Carbonate 1,600 mg 08/27/17 07:30 08/29/17 17:23 Renvela PO 1,600 mg TID-W/MEALS YANIRA Administration Sodium Bicarbonate 650 mg 08/27/17 09:00 08/29/17 21:18 Sodium Bicarbonate Tab PO 650 mg TID YANIRA Administration Thiamine HCl 100 mg 08/27/17 21:00 08/29/17 20:20 Vitamin B-1 PO 100 mg HS YANIRA Administration Objective - Vital Signs Vital signs: Vital Signs Temp 97.5 F L 08/30/17 14:35 Pulse 77 08/30/17 14:35 Resp 16 08/30/17 08:00 BP 121/72 08/30/17 14:35 Pulse Ox 96 08/30/17 14:35 Intake & Output 06/10/18 06/11/18 06/11/18 18:59 06:59 18:59 Intake Total 180 1280 6220 Output Total 5290 733 8678 Balance -0725 257 9900 Weight 116.9 kg Intake: IV 180 NS 180 Intake, IV Titration 100 100 Amount Meropenem 1 gm In Sodium 100 100 Chloride 0.9% 100 ml @ 200 mls/hr IVPB Q8HR [facility] Rx#:[id number] Oral 1180 6120 Output: Urine 6237 248 9771 Other: Voiding Method Indwelling Catheter Indwelling Catheter Indwelling Catheter - Exam PHYSICAL EXAMINATION: Patient is lying in the bed comfortably, no acute distress, awake alert and oriented. Able to communicate appropriately. HEENT: Normocephalic. Neck is supple. Pupils reactive. Nostrils clear. Oral cavity is moist. Ears reveal no drainage. Neck reveals no JVD, carotid bruits, or thyromegaly. CHEST EXAMINATION: Trachea is central. Symmetrical expansion. Lung jennings clear to auscultation and percussion. CARDIAC: Normal S1, S2 with no gallops. No murmurs ABDOMEN: Soft. Nontender. Bowel sounds normal. No organomegaly. No abdominal bruits. Sacral decubitus ulcers. No signs of infection Extremities: Trace edema. No clubbing or cyanosis Neurologically awake, alert, oriented x3 with well-coordinated movements. No focal deficits noted Skin: No rash or skin lesions. Sacral decub ulcers. Psychiatric: Cooperative. Nonsuicidal Musculoskeletal: No joint swelling or deformity. Normal range of motion. - Labs CBC & Chem 7: 08/30/17 06:52 08/30/17 06:52 Labs: Abnormal Lab Results - Last 24 Hours (Table) 08/30/17 08/30/17 Range/Units 06:52 06:52 RBC 3.79 L (3.80-5.40) m/uL Hgb 10.5 L (11.4-16.0) gm/dL Hct 32.2 L (34.0-46.0) % Lymphocytes # 0.8 L (1.0-4.8) k/uL ESR 58 H (0-20) mm/hr Chloride 108 H (98-107) mmol/L BUN 21 H (7-17) mg/dL C-Reactive Protein 66.2 H (<10.0) mg/L Microbiology - Last 24 Hours (Table) 08/27/17 00:05 Blood Culture Gram Stain - Final Blood Blood Culture - Final Escherichia coli 08/27/17 17:03 Gram Stain - Final Buttock Wound Culture - Final Escherichia coli 08/27/17 00:05 Urine Culture - Final Urine,Catheterized Assessment and Plan Assessment: Sepsis/secondary shock secondary to urinary tract infection. Catheter related. Requiring pressor support. Patient was febrile and hypotensive on admission. Off pressors now ESBL E. coli Septicemia likely source could be urinary tract. Sacral decub ulcers stage III. Wound culture growin ESBL E. coli. Lactic acidosis secondary to above improved now. Multiple sclerosis. Patient is bedbound requiring 2 people assist to stand. 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 On daptomycin currently. past renal failure with hemodialysis-last time was July 2016 History of nicotine addiction Hyperlipidemia Morbid obesity BMI 40.5 Plan: Patient is of pressor support. Currently transferred to general medical floor. Antibiotics have been changed to meropenem as per culture report. ID and pulmonary is following. CT pelvis suggestive of osteomyelitis. further recommendations based on the clinical course. ID and pulmonary is on board. Prognosis is guarded. Time with Patient: Greater than 30
[2017-08-31] MEDS: LEVOTHYROXINE 50 MCG TAB PO SCH (05:31)
[2017-08-31] MEDS: MEROPENEM 1 GM in SODIUM CHLORIDE 0.9% 100 ML IVPB SCH ×2 (07:37→17:05)
[2017-08-31] MEDS: Dimethyl Fumarate [Tecfidera] 240 MG PO SCH ×2 (07:58→17:12)
[2017-08-31] MEDS: SEVELAMER 800 MG TAB PO SCH ×3 (07:58→17:11)
[2017-08-31] MEDS: GABAPENTIN 300 MG CAP PO SCH ×2 (07:59→20:19)
[2017-08-31] MEDS: RIFAMPIN 300 MG CAP PO SCH ×2 (08:00→20:19)
[2017-08-31] MEDS: PANTOPRAZOLE 40 MG TABLET PO SCH (08:00)
[2017-08-31] MEDS: SODIUM BICARBONATE TAB 650 MG TAB PO SCH ×3 (08:01→22:12)
[2017-08-31] MEDS: RIVAROXABAN 15 MG TAB PO SCH ×2 (08:14→22:10)
[2017-08-31] MEDS: ASPIRIN 81 MG PO SCH (08:14)
[2017-08-31] MEDS: HYDROcodone/APAP 5-325MG 1 EACH TAB PO PRN ×2 (08:16→17:13)
[2017-08-31] MEDS: LIDOCAINE 4% CREAM 5 GM TUBE TOPICAL SCH ×3 (08:17→22:12)
[2017-08-31] MEDS: MENTHOL-ZINC OXIDE OINT 113 GM TUBE TOPICAL SCH ×3 (08:17→22:12)
[2017-08-31] MEDS ORDERED: DARBEPOETIN ALFA 40 MCG/0.4 ML SYRINGE SQ SCH (09:00)
[2017-08-31] MEDS: MULTIVITAMINS, THERA 1 EACH TAB PO SCH (13:28)
--- NOTE | 2017-08-31 17:08 | P.PN ---
Subjective Progress Note Date: 08/31/17 Progress note being dictated for Dr. Waters. Urine tract infection and sepsis Patient is a 47 old female with a known history of multiple sclerosis, hyperlipidemia and previous history of UTI, neurogenic bladder and ESRD on hemodialysis as well as sacral decub ulcer status post recent surgery and chronic indwelling Chaves catheter and multiple other medical problems who resides at a [facility] was brought to the hospital due to altered mental status and fever with T-max of 104. Patient says that around 2 PM yesterday felt feverish and clammy and not feeling right.. Patient also having nausea and 1 episode of vomiting and felt very weak and could not move especially right hand. Patient does have chronic left-sided weakness compared to right. Patient otherwise denied any cough or sputum production. No chest pain or shortness of breath. No headache or dizziness or lightheadedness. Patient was hypotensive on admission. Lactic acid 3.0. WBC 13.2 potassium 2.8 on admission UA showed large leukocyte esterase many bacteria and WBC count 9. EKG showed sinus tachycardia Chest x-ray showed poorly is present in no acute process 08/28/2017 Patient is awake and oriented 3. Patient is still hypotensive and requiring pressor support. Blood cultures came out positive for gram-negative bacilli. Zosyn was added. ID is following. Chest x-ray showed poor inspiratory for 10 worse than previously. Otherwise patient has been afebrile. Denied any complaints of chest pain or shortness of breath. No nausea vomiting or abdominal pain. Pulmonary is following. All other review of systems negative except the above 08/29/2017 Patient denied any complaints of chest pain or shortness of breath. Patient has been afebrile. Off pressors support. Patient was transferred to medical floor otherwise. Patient is being continued on antibiotics in the form of meropenem. Wound cultures and blood cultures showed ESBL E. coli. No complaints of chest pain or shortness of breath. No fever no chills. No other acute overnight issues. ID and pulmonary is following. 08/30/2017 Patient is awake oriented 3. Patient is being continued on antibiotics for ESBL E. coli and CT pelvis showed osteoarthritis as well. CT pelvis showed skin thickening with suspected soft tissue ulceration mild diffuse inflammatory change and fistula tract extending to the sacral coccygeal junction. Previously noted destruction of the coccyx again seen. findings compatible with osteomyelitis. Patient will need PICC line and ID is following. No fever no chills. Hemodynamically stable otherwise. Active Medications Generic Name Dose Route Start Last Admin Trade Name Freq PRN Reason Stop Dose Admin Acetaminophen 650 mg 08/27/17 03:32 Tylenol Tab PO Q6HR PRN Mild Pain or Fever > 100.5 Hydrocodone Bitart/Acetaminophen 1 each 08/27/17 03:35 08/29/17 21:18 [place] 5-325 PO 1 each Q6H PRN Administration Pain Albuterol/Ipratropium 3 ml 08/27/17 03:35 Duoneb 0.5 Mg-3 Mg/3 Ml Soln INHALATION RT-Q4H PRN Shortness Of Breath Aspirin 81 mg 08/27/17 09:00 08/29/17 08:49 Aspirin PO 81 mg DAILY YANIRA Administration Baclofen 10 mg 08/27/17 03:35 08/28/17 13:15 Lioresal PO 10 mg Q8H PRN Administration Muscle Spasm Bisacodyl 10 mg 08/27/17 03:35 Dulcolax RECTAL Q72H PRN Constipation Calamine/Phenol 1 applic 08/27/17 09:00 08/29/17 20:21 Risamine Oint TOPICAL 1 applic TID YANIRA Administration Darbepoetin Pascual 40 mcg 08/31/17 09:00 Aranesp SQ TU YANIRA Ferrous Sulfate 325 mg 08/27/17 21:00 08/29/17 20:19 Feosol PO 325 mg HS YANIRA Administration Folic Acid 1 mg 08/27/17 21:00 08/29/17 20:19 Folic Acid PO 1 mg HS YANIRA Administration Gabapentin 300 mg 08/27/17 09:00 08/29/17 20:19 Neurontin PO 300 mg BID YANIRA Administration Meropenem 1 gm/ Sodium 100 mls @ 200 mls/hr 08/29/17 16:00 08/29/17 23:00 Chloride IVPB 200 mls/hr Q8HR YANIRA Administration Levothyroxine Sodium 50 mcg 08/27/17 06:30 08/29/17 06:37 Synthroid PO 50 mcg DAILY@0630 YANIRA Administration Lidocaine HCl 1 applic 08/27/17 09:00 08/29/17 20:21 Lmx 4 TOPICAL 1 applic TID YANIRA Administration Miscellaneous Information 1 each 08/28/17 07:34 Magnesium Per Protocol MISCELLANE DAILY PRN Per Protocol Protocol Miscellaneous Information 1 each 08/28/17 19:17 Potassium Per Protocol MISCELLANE DAILY PRN Per Protocol Protocol Morphine Sulfate 4 mg 08/27/17 03:32 Morphine Sulfate (Inj) IV Q4HR PRN Severe Pain Multivitamins 1 each 08/27/17 12:00 08/29/17 12:50 Theragran PO 1 each DAILY@1200 YANIRA Administration Naloxone HCl 0.2 mg 08/27/17 03:32 Narcan IV Q2M PRN Opioid Reversal Dimethyl Fumarate [ 240 mg 08/27/17 09:00 08/29/17 20:18 Tecfidera] 240 Mg PO Not Given BID YANIRA Ondansetron HCl 4 mg 08/27/17 03:32 Zofran IVP Q8HR PRN Nausea And Vomiting Pantoprazole Sodium 40 mg 08/27/17 09:00 08/29/17 08:48 Protonix PO 40 mg DAILY YANIRA Administration Pravastatin Sodium 40 mg 08/27/17 21:00 08/29/17 20:19 Pravachol PO 40 mg HS YANIRA Administration Promethazine HCl 0.5 mg 08/27/17 03:35 Phenergan IM Q6H PRN Nausea Rifampin 300 mg 08/27/17 09:00 08/29/17 20:19 Rifadin PO 300 mg BID YANIRA Administration Rivaroxaban 15 mg 08/27/17 09:00 08/29/17 20:20 Xarelto PO 15 mg BID YANIRA Administration Sevelamer Carbonate 1,600 mg 08/27/17 07:30 08/29/17 17:23 Renvela PO 1,600 mg TID-W/MEALS YANIRA Administration Sodium Bicarbonate 650 mg 08/27/17 09:00 08/29/17 21:18 Sodium Bicarbonate Tab PO 650 mg TID YANIRA Administration Thiamine HCl 100 mg 08/27/17 21:00 08/29/17 20:20 Vitamin B-1 PO 100 mg HS YANIRA Administration 08/31/2017 no overnight events. maintained on IV antibiotics.Scheduled for PICC line placement tomorrow as per ID.afebrile. Objective - Vital Signs Vital signs: Vital Signs Temp 98.3 F 08/31/17 05:00 Pulse 95 08/31/17 16:00 Resp 16 08/31/17 16:00 BP 97/64 08/31/17 14:24 Pulse Ox 97 08/31/17 14:24 Intake & Output 08/30/17 08/31/17 08/31/17 18:59 06:59 18:59 Intake Total 6940 2070 1710 Output Total 1999 4500 3600 Balance 5280 -1260 -6300 Weight 116.9 kg Intake: IV 210 NS 210 Intake, IV Titration 100 100 Amount Meropenem 1 gm In Sodium 100 100 Chloride 0.9% 100 ml @ 200 mls/hr IVPB Q8HR [facility] Rx#:[id number] Oral 6840 1760 1710 Output: Urine 19990 3600 Uretheral (Chaves) 3000 1500 Other: Voiding Method Indwelling Catheter Indwelling Catheter Indwelling Catheter - Exam PHYSICAL EXAMINATION: Patient is lying in the bed comfortably, no acute distress, awake alert and oriented. Able to communicate appropriately. HEENT: Normocephalic. Neck is supple. Pupils reactive. Nostrils clear. Oral cavity is moist. Ears reveal no drainage. Neck reveals no JVD, carotid bruits, or thyromegaly. CHEST EXAMINATION: Trachea is central. Symmetrical expansion. Lung jennings clear to auscultation and percussion. CARDIAC: Normal S1, S2 with no gallops. No murmurs ABDOMEN: Soft. Nontender. Bowel sounds normal. No organomegaly. No abdominal bruits. Sacral decubitus ulcers. No signs of infection Extremities: Trace edema. No clubbing or cyanosis Neurologically awake, alert, oriented x3 with well-coordinated movements. No focal deficits noted Skin: No rash or skin lesions. Sacral decub ulcers. Psychiatric: Cooperative. Nonsuicidal Musculoskeletal: No joint swelling or deformity. Normal range of motion. - Labs CBC & Chem 7: 08/30/17 06:52 08/30/17 06:52 Labs: Microbiology - Last 24 Hours (Table) 08/27/17 17:00 Anaerobic Culture - Preliminary Buttock Assessment and Plan Assessment: Sepsis/secondary shock secondary to urinary tract infection. Catheter related. Requiring pressor support. Patient was febrile and hypotensive on admission. Off pressors now ESBL E. coli Septicemia likely source could be urinary tract. Sacral decub ulcers stage III. Wound culture growin ESBL E. coli. Lactic acidosis secondary to above improved now. Multiple sclerosis. Patient is bedbound requiring 2 people assist to stand. 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 On daptomycin currently. past renal failure with hemodialysis-last time was July 2016 History of nicotine addiction Hyperlipidemia Morbid obesity BMI 40.5 Plan: Patient is of pressor support. Currently transferred to general medical floor. Antibiotics have been changed to meropenem as per culture report. ID and pulmonary is following. CT pelvis suggestive of osteomyelitis. further recommendations based on the clinical course. ID and pulmonary is on board. Prognosis is guarded. 08/31/2017 PICC line placement scheduled for tomorrow as per infectious disease.afebrile,repeat blood cultures pending.close monitoring of renal function, electrolytes with repeat labs ordered for a.m. The impression and plan of care has been dictated as directed. : I performed a history and examination of this patient, discussed the same with the dictator. I agree with the dictator's note ,documented as a scribe. Any additional findings or plans will be noted.
[2017-08-31] MEDS: THIAMINE 100 MG TAB PO SCH (20:19)
[2017-08-31] MEDS: PRAVASTATIN SODIUM 40 MG TAB PO SCH (20:19)
[2017-08-31] MEDS: FOLIC ACID 1 MG TAB PO SCH (20:19)
[2017-08-31] MEDS: FERROUS SULFATE 325 MG TAB PO SCH (20:19)
--- NOTE | 2017-08-31 23:25 | PN ---
PROGRESS NOTE DATE OF SERVICE: 08/31/2017 REASON FOR FOLLOWUP: ESBL E. coli bacteremia and sacral osteomyelitis. INTERVAL HISTORY: The patient is afebrile. She has been breathing comfortably. Denies having any chest pain, shortness of breath, abdominal pain, or any pain to the sacral wound area. EXAMINATION: Blood pressure 130/60 with a pulse of 85, temperature 97.5. She is 96% on room air. General description is a middle-aged female lying in bed in no distress. RESPIRATORY SYSTEM: Unlabored breathing, clear to auscultation anteriorly. HEART: S1, S2. Regular rate and rhythm. ABDOMEN: Soft, no tenderness. LABS: Hemoglobin is 10.5, white count 5.1 with BUN of 21, creatinine 1.0. DIAGNOSTIC IMPRESSION AND PLAN: Patient with ESBL Escherichia coli bacteremia, source could be sacral osteomyelitis same pathogen from that site. Currently on meropenem and will be transitioned to the Invanz 1 g daily for 6 weeks once she gets the PICC line. Local wound care to the sacrum to continue with Aquacel Silver packing. Keep the area off of pressure. Continue supportive care. MMODL / IJN: [id number] /
[2017-09-01] MEDS: MEROPENEM 1 GM in SODIUM CHLORIDE 0.9% 100 ML IVPB SCH ×2 (00:39→08:20)
[2017-09-01] MEDS: RIVAROXABAN 15 MG TAB PO SCH (04:14)
[2017-09-01] MEDS: ASPIRIN 81 MG PO SCH (04:14)
[2017-09-01 06:05] VITALS: BP 108/62; PULSE 93; RESP 16; TEMP 98.1
[2017-09-01 07:54] LABS: Basophils % (A) 1 %; Eosinophils # (A) 0.2 k/uL (0-0.7); Eosinophils % (A) 4 %; HCT 34.5 % (34.0-46.0); HGB 11.4 gm/dL (11.4-16.0); Lymphocytes # (A) 0.8 k/uL (1.0-4.8); Lymphocytes % (A) 17 %; MCH 27.8 pg (25.0-35.0); MCV 84.1 fL (80.0-100.0); Mean Platelet Volume 6.7; Monocytes # (A) 0.2 k/uL (0-1.0); Monocytes % (A) 4 %; Neutrophils % (A) 71 %; Platelet Count 301 k/uL (150-450); RBC 4.11 m/uL (3.80-5.40); RDW 14.6 % (11.5-15.5); WBC 4.3 k/uL (3.8-10.6)
[2017-09-01 08:20] LABS: Potassium 4.1 mmol/L (3.5-5.1)
[2017-09-01] MEDS: GABAPENTIN 300 MG CAP PO SCH (08:20)
[2017-09-01] MEDS: SODIUM BICARBONATE TAB 650 MG TAB PO SCH (08:20)
[2017-09-01] MEDS: RIFAMPIN 300 MG CAP PO SCH (08:20)
[2017-09-01] MEDS: MULTIVITAMINS, THERA 1 EACH TAB PO SCH (08:20)
[2017-09-01] MEDS: Dimethyl Fumarate [Tecfidera] 240 MG PO SCH (08:20)
[2017-09-01] MEDS: SEVELAMER 800 MG TAB PO SCH ×2 (08:20→12:27)
[2017-09-01] MEDS: PANTOPRAZOLE 40 MG TABLET PO SCH (08:20)
[2017-09-01] MEDS: LIDOCAINE 4% CREAM 5 GM TUBE TOPICAL SCH (08:21)
[2017-09-01] MEDS: MENTHOL-ZINC OXIDE OINT 113 GM TUBE TOPICAL SCH (08:21)
[2017-09-01] MEDS: HYDROcodone/APAP 5-325MG 1 EACH TAB PO PRN ×2 (08:22→15:54)
[2017-09-01] MEDS: LIDOCAINE 2% INJ 20 MG/ML SQ ONE ×2 (10:48→11:08)
[2017-09-01] MEDS ORDERED: IOPAMIDOL-250 50ML BTL IV ONE (10:51)
[2017-09-01] MEDS ORDERED: ERTAPENEM 1 GM in SODIUM CHLORIDE 0.9% 50 ML IVPB STA (11:56)
--- NOTE | 2017-09-01 14:49 | P.DS ---
Providers Date of admission: 08/27/17 03:31 Expected date of discharge: 09/01/17 Attending physician: Clementine Waters Consults: 08/27/17 10:21 Consult Physician Stat Consulting Provider: Conchita Ribeiro Consult Reason/Comments: ICU managment Do you want consulting provider notified?: Yes 08/27/17 13:25 Consult Physician Routine Consulting Provider: Bobo Rivero Consult Reason/Comments: Positive blood cultures Do you want consulting provider notified?: Yes Primary care physician: Ltac, Located Within [facility] Course: Final Diagnoses: Sepsis/secondary shock secondary to urinary tract infection. Catheter related. S/P pressor support. ESBL E. coli Septicemia likely source could be urinary tract. Sacral decub ulcers stage III. Wound culture growin ESBL E. coli. Lactic acidosis secondary to above improved now. Multiple sclerosis. Patient is bedbound requiring 2 people assist to stand. 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 past renal failure with hemodialysis-last time was July 2016 History of nicotine addiction Hyperlipidemia Morbid obesity BMI 40.5 Hospital course: Patient is a 47 old female with a known history of multiple sclerosis, hyperlipidemia and previous history of UTI, neurogenic bladder and ESRD on hemodialysis as well as sacral decub ulcer status post recent surgery and chronic indwelling Chaves catheter and multiple other medical problems who resides at a [facility] was brought to the hospital due to altered mental status and fever with T-max of 104. Patient says that around 2 PM yesterday felt feverish and clammy and not feeling right.. Patient also having nausea and 1 episode of vomiting and felt very weak and could not move especially right hand. Patient does have chronic left-sided weakness compared to right. Patient otherwise denied any cough or sputum production. No chest pain or shortness of breath. No headache or dizziness or lightheadedness. Patient was hypotensive on admission. Lactic acid 3.0. WBC 13.2 potassium 2.8 on admission UA showed large leukocyte esterase many bacteria and WBC count 9. EKG showed sinus tachycardia Chest x-ray showed poorly is present in no acute process 08/28/2017 Patient is awake and oriented 3. Patient is still hypotensive and requiring pressor support. Blood cultures came out positive for gram-negative bacilli. Zosyn was added. ID is following. Chest x-ray showed poor inspiratory for 10 worse than previously. Otherwise patient has been afebrile. Denied any complaints of chest pain or shortness of breath. No nausea vomiting or abdominal pain. Pulmonary is following. All other review of systems negative except the above 08/29/2017 Patient denied any complaints of chest pain or shortness of breath. Patient has been afebrile. Off pressors support. Patient was transferred to medical floor otherwise. Patient is being continued on antibiotics in the form of meropenem. Wound cultures and blood cultures showed ESBL E. coli. No complaints of chest pain or shortness of breath. No fever no chills. No other acute overnight issues. ID and pulmonary is following. 08/30/2017 Patient is awake oriented 3. Patient is being continued on antibiotics for ESBL E. coli and CT pelvis showed osteoarthritis as well. CT pelvis showed skin thickening with suspected soft tissue ulceration mild diffuse inflammatory change and fistula tract extending to the sacral coccygeal junction. Previously noted destruction of the coccyx again seen. findings compatible with osteomyelitis. Patient will need PICC line and ID is following. No fever no chills. Hemodynamically stable otherwise. 08/31/2017 no overnight events. maintained on IV antibiotics.Scheduled for PICC line placement tomorrow as per ID.afebrile. 09/01/2017 PICC line placed. Discharge antibiotics as per ID. Lasix remains on hold for borderline hypotension to be further reevaluated outpatient with PCP. Significant clinical improvement.Cleared by consults for discharge. Patient is being discharged [facility] [place] in a stable condition with guarded prognosis. PHYSICAL EXAMINATION: Patient is lying in the bed comfortably, no acute distress, awake alert and oriented. CHEST EXAMINATION: Trachea is central. Symmetrical expansion. Lung jennings clear to auscultation and percussion. CARDIAC: Normal S1, S2 with no gallops. No murmurs ABDOMEN: Soft. Nontender. Bowel sounds normal. No organomegaly. No abdominal bruits. Sacral decubitus ulcers. Neurologically awake, alert, oriented x3 with well-coordinated movements. No focal deficits noted Skin: No rash or skin lesions. Sacral decub ulcers. The impression and plan of care has been dictated as directed. : I performed a history and examination of this patient, discussed the same with the dictator. I agree with the dictator's note ,documented as a scribe. Any additional findings or plans will be noted. Time taken: 35 minutes Patient Condition at Discharge: Stable Plan - Discharge Summary Discharge Rx Participant: No New Discharge Prescriptions: New Ertapenem [INVanz] 1 gm IVPB Q24H #42 bag Ipratropium-Albuterol Nebulize [Duoneb 0.5 mg-3 mg/3 ml Soln] 3 ml INHALATION RT-Q4H PRN ampul.neb PRN Reason: Shortness Of Breath Menthol-Zinc Oxide Oint [Risamine Oint] 1 applic TOPICAL TID applic Pravastatin Sodium [Pravachol] 40 mg PO HS tab Rifampin [Rifadin] 300 mg PO BID cap Rivaroxaban [Xarelto] 15 mg PO BID tab Sevelamer [Renvela] 1,600 mg PO TID-W/MEALS tab Continue Baclofen [Lioresal] 10 mg PO Q8H PRN PRN Reason: Muscle Spasm Dimethyl Fumarate [Tecfidera] 240 mg PO BID Bisacodyl [Dulcolax] 10 mg RECTAL Q72H PRN PRN Reason: Constipation Multivitamins, Thera [Multivitamin (formulary)] 1 tab PO HS Omeprazole [PriLOSEC] 20 mg PO DAILY Acetaminophen Tab [Tylenol] 650 mg PO Q6HR PRN PRN Reason: Pain Sodium Bicarbonate Tab 650 mg PO TID #1 tablet Ondansetron [Zofran] 4 mg PO Q8HR PRN PRN Reason: Nausea Gabapentin [Neurontin] 300 mg PO TID Darbepoetin Pascual [Aranesp] 40 mcg SQ TU Ferrous Sulfate [Iron (65 MG Elemental)] 325 mg PO TID Folic Acid 1 mg PO HS Levothyroxine Sodium [Synthroid] 50 mcg PO DAILY Lidocaine 4% Cream [Lmx 4] 1 applic TOPICAL TID Pro-Stat Awc 30 ml PO TID Thiamine [Vitamin B-1] 100 mg PO HS Aspirin [Children's Aspirin] 81 mg PO HS Benzocaine 20 % Gel [Orajel] 1 gm MM QID PRN PRN Reason: Pain Clotrimazole [Clotrimazole 1% Top Soln] 1 applic TOPICAL Q6H PRN PRN Reason: Rash Cholecalciferol [Vitamin D3] 3,000 unit PO HS HYDROcodone/APAP 5-325MG [[place] 5-325] 1 tab PO Q6H PRN #12 tab PRN Reason: Pain Discontinued Guaifenesin/Dextromethorphan [guaiFENesin DM] 5 ml PO Q8H PRN PRN Reason: Cough Discharge Medication List Baclofen [Lioresal] 10 mg PO Q8H PRN 11/17/13 [History] Dimethyl Fumarate [Tecfidera] 240 mg PO BID 09/27/15 [History] Bisacodyl [Dulcolax] 10 mg RECTAL Q72H PRN 04/23/16 [History] Acetaminophen Tab [Tylenol] 650 mg PO Q6HR PRN 05/17/16 [History] Multivitamins, Thera [Multivitamin (formulary)] 1 tab PO HS 05/17/16 [History] Omeprazole [PriLOSEC] 20 mg PO DAILY 05/17/16 [History] Sodium Bicarbonate Tab 650 mg PO TID #1 tablet 06/02/16 [Rx] Gabapentin [Neurontin] 300 mg PO TID 06/26/16 [History] Ondansetron [Zofran] 4 mg PO Q8HR PRN 06/26/16 [History] Darbepoetin Pascual [Aranesp] 40 mcg SQ TU 07/01/16 [History] Ferrous Sulfate [Iron (65 MG Elemental)] 325 mg PO TID 08/22/16 [History] Folic Acid 1 mg PO HS 08/22/16 [History] Levothyroxine Sodium [Synthroid] 50 mcg PO DAILY 08/22/16 [History] Lidocaine 4% Cream [Lmx 4] 1 applic TOPICAL TID 08/22/16 [History] Pro-Stat Awc 30 ml PO TID 08/22/16 [History] Thiamine [Vitamin B-1] 100 mg PO HS 08/22/16 [History] Aspirin [Children's Aspirin] 81 mg PO HS 09/02/16 [History] Benzocaine 20 % Gel [Orajel] 1 gm MM QID PRN 08/27/17 [History] Cholecalciferol [Vitamin D3] 3,000 unit PO HS 08/27/17 [History] Clotrimazole [Clotrimazole 1% Top Soln] 1 applic TOPICAL Q6H PRN 08/27/17 [ History] Ertapenem [INVanz] 1 gm IVPB Q24H #42 bag 09/01/17 [Rx] HYDROcodone/APAP 5-325MG [[place] 5-325] 1 tab PO Q6H PRN #12 tab 09/01/17 [Rx] Ipratropium-Albuterol Nebulize [Duoneb 0.5 mg-3 mg/3 ml Soln] 3 ml INHALATION RT -Q4H PRN ampul.neb 09/01/17 [Rx] Menthol-Zinc Oxide Oint [Risamine Oint] 1 applic TOPICAL TID applic 09/01/17 [ Rx] Pravastatin Sodium [Pravachol] 40 mg PO HS tab 09/01/17 [Rx] Rifampin [Rifadin] 300 mg PO BID cap 09/01/17 [Rx] Rivaroxaban [Xarelto] 15 mg PO BID tab 09/01/17 [Rx] Sevelamer [Renvela] 1,600 mg PO TID-W/MEALS tab 09/01/17 [Rx] Follow up Appointment(s)/Referral(s): Chace Mojica MD [Primary Care Provider] - 1-2 days Bobo Rivero MD [STAFF PHYSICIAN] - 1 Week Ambulatory/Diagnostic Orders: Basic Metabolic Panel [LAB.AMB] Location: Determined By Patient C Reactive Protein [LAB.AMB] Time Frame: 6 Weeks, Location: Determined By Patient Complete Blood Count w/diff [LAB.AMB] Location: Determined By Patient Erythrocyte Sedimentation Rate [LAB.AMB] Location: Determined By Patient Activity/Diet/Wound Care/Special Instructions: Lasix currently on hold, borderline hypotension; re-eval OP with PCP. Aquacel silver packing of the sacral wound , change q48hr , follow up in wound care center next week [phone] Rivero and no office follow up
--- NOTE | 2017-09-01 17:32 | PN ---
PROGRESS NOTE DATE OF SERVICE: 09/01/2017. REASON FOR FOLLOWUP: ESBL Escherichia coli bacteremia and sacral osteomyelitis. INTERVAL HISTORY: The patient is afebrile. The patient did get her PICC line for outpatient IV antibiotic therapy. The patient denies having any chest pain, shortness of breath, cough, or abdominal pain. PHYSICAL EXAMINATION: Blood pressure 108/52, with a pulse of 93, temperature 98.1, she is 96% on room air. GENERAL DESCRIPTION: A middle-aged female lying in bed in no distress. RESPIRATORY SYSTEM: Unlabored breathing. Clear to auscultation anteriorly. HEART: S1, S2. Regular rate and rhythm. ABDOMEN: Soft, no tenderness. LABS: Hemoglobin 11.4, white count 4.3 with a BUN of 31, creatinine 0.97. DIAGNOSTIC IMPRESSION AND PLAN: Patient with an ESBL Escherichia coli bacteremia secondary to possible sacral osteomyelitis. Urine cultures were negative. Follow up blood cultures negative. Currently get a PICC line. Antibiotic will be adjusted to Invanz 1 g daily, which the patient will continue for a total of six weeks. Local care to continue with Aquacel silver packing. Follow up with the wound care center next week. MMODL / IJN: [id number] /
--- NOTE | 2017-09-02 11:47 | IR ---
EXAMINATION TYPE: PICC line placement DATE OF EXAM: 09/01/2017 COMPARISON: NONE CLINICAL HISTORY: Infection Needs long-term intravenous access for antibiotics. PROCEDURE: After informed consent, the skin overlying the left basilic vein was localized with ultrasound and no shay to be compressible and patent. An ultrasound image was obtained and submitted on the patient's c corral. The overlying skin was prepped and draped and Lidocaine was used for local anesthesia. A skin jaun was made with a scalpel. Access was gained to the vein under ultrasound guidance with a 21 gau ge needle and a 0.018 inch wire was advanced, 0.018 inch angled Glidewire was subsequently used. 3 Fr ench dilator advanced over the wire. Gentle contrast injection was performed under fluoroscopic zachery nce. Basilar findings 10th was made to advance the central venous catheter. Access site was dilated w ith Peel-Away sheath and catheter tailored to the appropriate length and advanced but could not be ad vanced centrally. Attention then directed to the right upper extremity. Using similar technique access was gained to the right basilic vein. Catheter was advanced centrally. Spot image was obtained verifying placement at the cavoatrial junction. Catheter was fixed to the s kin and a sterile dressing was placed following hemostasis. Catheter was aspirated and flushed with saline. Patient was discharged in stable condition without complication.Maximal barrier technique is utilized. Ultrasound image is documented on the chart. Ultrasound used with sterile technique. FINDINGS: Patent left axillary and subclavian vein. Fluoro time and fluoroscopic images submitted to document procedure: 3.9 minutes fluoroscopy time, 3 intraoperative images obtained. IMPRESSION: STATUS POST ULTRASOUND AND FLUOROSCOPIC GUIDED PICC LINE PLACEMENT, READY FOR USE. THIS PROCEDURE WAS PERFORMED BY THE UNDERSIGNED.
== END 2017-09-01 18:17 | DRG 698 ==
LOC: EC 23:52 → 6SEL 08-27 03:31 → 6ICU 08-27 06:26 → 5MS5E 08-29 07:17
PROVIDERS: ADMIT Hospitalist; ATTEND Hospitalist
PROC: 02HV33Z Insertion of Infusion Device into Superior Vena Cava, Percutaneous Approach (ICD-10-PCS; principal; 2017-09-01 11:00)
DX: T83.511A Infection and inflammatory reaction due to indwelling urethral catheter, initial encounter (principal); L89.154 Pressure ulcer of sacral region, stage 4; A41.51 Sepsis due to Escherichia coli [E. coli]; N18.6 End stage renal disease; R65.21 Severe sepsis with septic shock; E87.2 Acidosis; M46.28 Osteomyelitis of vertebra, sacral and sacrococcygeal region; Z68.41 Body mass index [BMI] 40.0-44.9, adult; E03.9 Hypothyroidism, unspecified; E66.01 Morbid (severe) obesity due to excess calories; E78.5 Hyperlipidemia, unspecified; E87.6 Hypokalemia; G35 Multiple sclerosis; K59.00 Constipation, unspecified; N31.9 Neuromuscular dysfunction of bladder, unspecified; N39.0 Urinary tract infection, site not specified; Z16.12 Extended spectrum beta lactamase (ESBL) resistance; Z74.01 Bed confinement status; Z79.01 Long term (current) use of anticoagulants; Z79.2 Long term (current) use of antibiotics; Z79.82 Long term (current) use of aspirin; Z79.899 Other long term (current) drug therapy; Z82.49 Family history of ischemic heart disease and other diseases of the circulatory system; Z83.3 Family history of diabetes mellitus; Z86.14 Personal history of Methicillin resistant Staphylococcus aureus infection; Z87.440 Personal history of urinary (tract) infections; Z87.891 Personal history of nicotine dependence; Z99.2 Dependence on renal dialysis; Z99.3 Dependence on wheelchair; Z16.22 Resistance to vancomycin related antibiotics; Z79.890 Hormone replacement therapy; Z91.018 Allergy to other foods
CPT/HCPCS: 36415; 36569; 71046; 72193; 76937; 77001; 80048; 80053; 81001; 83036; 83605; 83735; 84100; 84132; 85025; 85652; 86140; 87040; 87070; 87075; 87077; 87086; 87186; 87205; 93005; 96365; 96366; 96367; 96368; 99291

== ENCOUNTER 2019-01-12 10:38 | Inpatient (IN) | payer OTHER ==
[2019-01-12] MEDS ORDERED: IBUPROFEN IV 600 MG in SODIUM CHLORIDE 0.9% 250 ML IV STA (11:21)
[2019-01-12 11:44] LABS: ALT 20 U/L (9-52); AST 16 U/L (14-36); African American GFR (CKD) 81 (>60 ml/min/1.73 sqM); Albumin 4.4 g/dL (3.5-5.0); Alkaline Phosphatase 107 U/L (38-126); Anion Gap 12 mmol/L; Blood Urea Nitrogen 25 mg/dL (7-17); Calcium 10.3 mg/dL (8.4-10.2); Carbon Dioxide 27 mmol/L (22-30); Chloride 102 mmol/L (98-107); Creatine Kinase <20 U/L (30-135); Glucose 128 mg/dL (74-99); Magnesium 1.9 mg/dL (1.6-2.3); Potassium 4.1 mmol/L (3.5-5.1); Sodium 141 mmol/L (137-145); Total Bilirubin 0.5 mg/dL (0.2-1.3); Total Protein 7.3 g/dL (6.3-8.2)
[2019-01-12 11:47] LABS: Basophils # (A) 0.1 k/uL (0-0.2); Basophils % (A) 0 %; Eosinophils # (A) 0.1 k/uL (0-0.7); Eosinophils % (A) 1 %; HCT 40.3 % (34.0-46.0); HGB 12.3 gm/dL (11.4-16.0); Lymphocytes # (A) 0.4 k/uL (1.0-4.8); Lymphocytes % (A) 3 %; MCH 26.8 pg (25.0-35.0); MCHC 30.5 g/dL (31.0-37.0); MCV 87.7 fL (80.0-100.0); Mean Platelet Volume 6.8; Monocytes # (A) 0.4 k/uL (0-1.0); Monocytes % (A) 3 %; Neutrophils # (A) 12.4 k/uL (1.3-7.7); Neutrophils % (A) 93 %; Platelet Count 317 k/uL (150-450); RDW 14.6 % (11.5-15.5); WBC 13.3 k/uL (3.8-10.6)
[2019-01-12] MEDS: SODIUM CHLORIDE 0.9% 500 ML 500 ML IV SCH ×4 (11:53→11:59)
[2019-01-12 11:55] LABS: Partial Thromboplastin Time 27.8 sec (22.0-30.0); Prothrombin Time 10.7 sec (9.0-12.0)
[2019-01-12 11:56] LABS: Amorphous Sediment,Urine Many /hpf; Appearance,Urine Turbid (Clear); Bacteria,Urine Occasional /hpf; Bilirubin,Urine Negative (Negative); Blood,Urine Negative (Negative); Color,Urine Yellow; Glucose,Urine (UA) Negative (Negative); Ketones,Urine Negative (Negative); Leukocyte Esterase,Urine Large (Negative); Mucus,Urine Rare /hpf; Nitrite,Urine Negative (Negative); PH, Urine 8.5 (5.0-8.0); Protein,Urine 1+ (Negative); Specific Gravity,Urine 1.014 (1.001-1.035)
--- NOTE | 2019-01-12 12:18 | XR ---
EXAMINATION TYPE: XR chest 2V DATE OF EXAM: 01/12/2019 COMPARISON: 08/27/2017 INDICATION: Fever TECHNIQUE: Frontal and lateral views of the chest are obtained. FINDINGS: The heart size is prominent. Left heart borders not well visualized.. The pulmonary vasculature is upper limits of normal. Mild left upper lobe perihilar infiltrate may be present which is a change. Degree of inspiration is somewhat limited. IMPRESSION: 1. Cardiomegaly. 2. Suggestion of the left perihilar infiltrate. Correlate for atypical pulmonary edema. Pneumonia cou ld be considered. Follow up exams can be performed as clinically indicated.
--- NOTE | 2019-01-12 12:23 | ED ---
Weakness HPI - General Chief complaint: Weakness Stated complaint: MS Flare Up Time Seen by Provider: 01/12/19 10:45 Source: patient, EMS Mode of arrival: EMS - History of Present Illness Initial comments: The patient is a 48-year-old female with past medical history of MS who presents emergency Department with complaints of bilateral upper extremity weakness. Review of the patient's transfer packet states that the patient has been experiencing increasing weakness in her bilateral upper extremity. She does have chronic weakness of her left upper and lower extremity. She has had similar weakness in her extremities in the past when she was septic from a sacral wound. She reports that this will exacerbate her MS. She sees Dr. De Oliveira. The patient's denies any headaches or visual changes. Denies any neck pain or stiffness. There is no altered mentation from the patient. She denies any chest pain or shortness of breath. No cough or hemoptysis. Does admit to generalized abdominal pain. Denies any neck, thoracic or lumbar back pain. Admits to chronic sacral ulcer and bilateral lower extremity edema for which she does have wound care. Patient does have a chronic [place] and states this is been present for the past 3 years. She denies any diarrhea, constipation, melanotic stools or hematochezia. No facial droop, slurred speech or confusion. No history of epidural abscess. There are no other alleviating, precipitating or modifying factors - Related Data Home Medications Medication Instructions Recorded Confirmed Baclofen [Lioresal] 10 mg PO TID@0700,1300,1900 11/17/13 01/12/19 Bisacodyl [Dulcolax] 10 mg RECTAL DAILY PRN 04/23/16 01/12/19 Acetaminophen Tab [Tylenol] 650 mg PO Q6HR PRN 05/17/16 01/12/19 Multivitamins, Thera [Multivitamin 1 tab PO DAILY@0700 05/17/16 01/12/19 (formulary)] Omeprazole [PriLOSEC] 20 mg PO DAILY 05/17/16 01/12/19 Ondansetron [Zofran] 4 mg PO Q8HR PRN 06/26/16 01/12/19 Folic Acid 1 mg PO DAILY@0700 08/22/16 01/12/19 Levothyroxine Sodium [Synthroid] 50 mcg PO DAILY@0700 08/22/16 01/12/19 Lidocaine 4% Cream [Lmx 4] 1 applic TOPICAL QID 08/22/16 01/12/19 Pro-Stat Awc 30 ml PO BID 08/22/16 01/12/19 Thiamine [Vitamin B-1] 100 mg PO DAILY@0700 08/22/16 01/12/19 Benzocaine 20 % Gel [Orajel] 1 applic MM QID PRN 08/27/17 01/12/19 Cholecalciferol [Vitamin D3 (25 5,000 unit PO HS 08/27/17 01/12/19 Mcg = 1000 Iu)] Dimethyl Fumarate [Tecfidera] 240 mg PO BID 11/03/17 01/12/19 Ferrous Sulfate [Iron (65 MG 325 mg PO BID 11/03/17 01/12/19 Elemental)] Aspirin EC [Ecotrin Low Dose] 81 mg PO DAILY 01/12/19 01/12/19 Cyanocobalamin [Vitamin B-12] 500 mcg PO DAILY 01/12/19 01/12/19 Fluticasone Nasal [place] [Flonase 2 spr EA NOSTRIL HS 01/12/19 01/12/19 Nasal [place]] Inter Dry 1 applic TOPICAL DAILY PRN 01/12/19 01/12/19 Miconazole Powder 1 applic TOPICAL BID 01/12/19 01/12/19 Potassium Chloride ER [K-Dur 20] 20 meq PO BID 01/12/19 01/12/19 Spironolactone [Aldactone] 25 mg PO DAILY 01/12/19 01/12/19 Torsemide [Demadex] 80 mg PO DAILY 01/12/19 01/12/19 Previous Rx's Medication Instructions Recorded Pravastatin Sodium [Pravachol] 40 mg PO HS tab 09/01/17 Baclofen [Lioresal] 10 mg PO TID@0700,1300,1900 #10 tab 01/16/19 Cephalexin [Keflex] 500 mg PO Q6HR #40 cap 01/16/19 Gabapentin [Neurontin] 300 mg PO TID@0700,1300,1900 #20 01/16/19 cap HYDROcodone/APAP 5-325MG [Upperco 1 tab PO Q6H PRN #12 tab 01/16/19 5-325] Allergies Allergy/AdvReac Type Severity Reaction Status Date / Time cinnamon Allergy Rash/Hives Verified 01/12/19 11:36 Review of Systems ROS Statement: Those systems with pertinent positive or pertinent negative responses have been documented in the HPI. ROS Other: All systems not noted in ROS Statement are negative. Past Medical History Past Medical History: Dialysis, Hyperlipidemia, Musculoskeletal Disorder, Neurologic Disorder, Pneumonia, Renal Disease Additional Past Medical History / Comment(s): Multiple sclerosis stage IV-mostly wheelchair bound but pt states recently physical therapy got her to stand briefly-L side weaker than right, past renal failure with hemodialysis-last time was July 2016, sacral decub, sacral osteomylitis, neurogenic bladder with indwelling [place], UTIs, past sepsis, iron deficiency anemia. History of Any Multi-Drug Resistant Organisms: ESBL, MRSA, VRE Date of last positivie culture/infection: 05/22/16 MRSA; 05/18/16 VRE,ESBL 08/27/17 MDRO Source:: , ESBL 08/27/17 URINE, MRSA BLOOD Past Surgical History: No Surgical Hx Reported Additional Past Surgical History / Comment(s): LP, debridement decubitus sacral ulcer, hemodialysis cath since removed, picc lines-none present. 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 Past Psychological History: No Psychological Hx Reported Smoking Status: Never smoker - Past Family History Father History Unknown: Yes Additional Family Medical History / Comment(s): PTS DAD LIVED IN [place]- SHE'S NOT SURE WHAT HE FROM. HE HAD HYPOTENSION. Mother Family Medical History: Coronary Artery Disease (CAD), Diabetes Mellitus, Hyper lipidemia, Hypertension Additional Family Medical History / Comment(s): CARDIAC STENTS General Exam General appearance: alert, in no apparent distress Head exam: Present: atraumatic, normocephalic, normal inspection Eye exam: Present: normal appearance, PERRL, EOMI. Absent: scleral icterus, conjunctival injection, periorbital swelling ENT exam: Present: normal exam, mucous membranes moist Neck exam: Present: normal inspection. Absent: tenderness, meningismus, lymphadenopathy Respiratory exam: Present: normal lung sounds bilaterally. Absent: respiratory distress, wheezes, rales, rhonchi, stridor Cardiovascular Exam: Present: normal rhythm, tachycardia, normal heart sounds. Absent: systolic murmur, diastolic murmur, rubs, gallop, clicks GI/Abdominal exam: Present: soft, normal bowel sounds. Absent: distended, tenderness, guarding, rebound, rigid Extremities exam: Present: full ROM, normal capillary refill, pedal edema. Absent: tenderness, joint swelling, calf tenderness Back exam: Present: other (sacral wound appears well healed. Minimal drainage. No surrounding cellulitic changes) Neurological exam: Present: alert, oriented X3, CN II-XII intact, other (strength 1/5 left upper and lower extremity. Strength 2/5 right upper and lower extremity. ) Psychiatric exam: Present: normal affect, normal mood Skin exam: Present: warm, dry, intact, normal color. Absent: rash Course Vital Signs 01/12/19 01/12/19 01/12/19 10:42 10:45 11:00 Temperature 103 F H Pulse Rate 125 H Respiratory 21 Rate Blood Pressure 126/87 129/81 O2 Sat by Pulse 97 98 Oximetry 01/12/19 01/12/19 01/12/19 12:01 13:30 14:00 Temperature Pulse Rate 126 H 114 H 110 H Respiratory 20 18 18 Rate Blood Pressure 114/74 96/67 98/65 O2 Sat by Pulse Oximetry 01/12/19 14:16 Temperature 99.5 F Pulse Rate Respiratory Rate Blood Pressure O2 Sat by Pulse Oximetry EKG Findings - EKG Comments: EKG Findings:: EKG demonstrates a sinus tachycardia with a ventricular rate of 133. OR interval 178. QRS 80. QTC 403. There are no acute ST segment elevat ions. No acute ST segment elevations or depressions concerning for ischemic changes Medical Decision Making - Medical Decision Making Upon arrival the patient is placed in room 5. She is hooked to continuous pulse ox and cardiac monitoring. A 12-lead EKG is performed on the patient which demonstrates a sinus tachycardia. Peripheral IV was established. The patient was given Motrin for fever control. She was also given a 2 L bolus for susp ected sepsis. Laboratory studies were drawn as was blood cultures. White blood cell count is 13.3. Urinalysis shows large leukocyte esterase, 12 white blood cells, occasional bacteria and rare mucous. CT the abdomen and pelvis demonstrates nonobstructing bilateral renal stones. Soft tissue abnormality extending to the sacrum. Left lamina may eroded. CT of the brain and cervical spine with contrast demonstrates mild subcortical white matter changes of the left frontal lobe. Microvascular ischemic changes are favored. Chest x-ray demonstrates left perihilar infiltrate. Discussed these results with the patient. She was started on Zosyn as this was what the patient was previously treated with when she was hospitalized for her osteomyelitis. I did recommend admission to hospital for which patient did agree. I called and discussed the case Dr. Cronin accept admission the patient. Bridging orders were placed. The patient will be placed on telemetry because of her persistent tachycardia. I will consult Dr. Rivero and neurology. Patient remained in stable condition awaiting a bed on the floor - Lab Data Result diagrams: 01/16/19 07:06 01/16/19 07:06 Lab Results 01/12/19 01/12/19 01/12/19 Range/Units 10:50 10:50 10:50 WBC 13.3 H (3.8-10.6) k/uL RBC 4.60 (3.80-5.40) m/uL Hgb 12.3 (11.4-16.0) gm/dL Hct 40.3 (34.0-46.0) % MCV 87.7 (80.0-100.0) fL MCH 26.8 (25.0-35.0) pg MCHC 30.5 L (31.0-37.0) g/dL RDW 14.6 (11.5-15.5) % Plt Count 317 (150-450) k/uL Neutrophils % 93 % Lymphocytes % 3 % Monocytes % 3 % Eosinophils % 1 % Basophils % 0 % Neutrophils # 12.4 H (1.3-7.7) k/uL Lymphocytes # 0.4 L (1.0-4.8) k/uL Monocytes # 0.4 (0-1.0) k/uL Eosinophils # 0.1 (0-0.7) k/uL Basophils # 0.1 (0-0.2) k/uL PT (9.0-12.0) sec INR (<1.2) APTT (22.0-30.0) sec Sodium 141 (137-145) mmol/L Potassium 4.1 (3.5-5.1) mmol/L Chloride 102 (98-107) mmol/L Carbon Dioxide 27 (22-30) mmol/L Anion Gap 12 mmol/L BUN 25 H (7-17) mg/dL Creatinine 0.97 (0.52-1.04) mg/dL Est GFR (CKD-EPI)AfAm 81 (>60 ml/min/1.73 sqM) Est GFR (CKD-EPI)NonAf 70 (>60 ml/min/1.73 sqM) Glucose 128 H (74-99) mg/dL Plasma Lactic Acid Armando 1.9 (0.7-2.0) mmol/L Calcium 10.3 H (8.4-10.2) mg/dL Magnesium 1.9 (1.6-2.3) mg/dL Total Bilirubin 0.5 (0.2-1.3) mg/dL AST 16 (14-36) U/L ALT 20 (9-52) U/L Alkaline Phosphatase 107 (38-126) U/L Creatine Kinase <20 L (30-135) U/L Total Protein 7.3 (6.3-8.2) g/dL Albumin 4.4 (3.5-5.0) g/dL Urine Color Urine Appearance (Clear) Urine pH (5.0-8.0) Ur Specific [place] (1.001-1.035) Urine Protein (Negative) Urine Glucose (UA) (Negative) Urine Ketones (Negative) Urine Blood (Negative) Urine Nitrite (Negative) Urine Bilirubin (Negative) Urine Urobilinogen (<2.0) mg/dL Ur Leukocyte Esterase (Negative) Urine WBC (0-5) /hpf Amorphous Sediment (None) /hpf Urine Bacteria (None) /hpf Urine Mucus (None) /hpf 01/12/19 01/12/19 Range/Units 10:50 10:50 WBC (3.8-10.6) k/uL RBC (3.80-5.40) m/uL Hgb (11.4-16.0) gm/dL Hct (34.0-46.0) % MCV (80.0-100.0) fL MCH (25.0-35.0) pg MCHC (31.0-37.0) g/dL RDW (11.5-15.5) % Plt Count (150-450) k/uL Neutrophils % % Lymphocytes % % Monocytes % % Eosinophils % % Basophils % % Neutrophils # (1.3-7.7) k/uL Lymphocytes # (1.0-4.8) k/uL Monocytes # (0-1.0) k/uL Eosinophils # (0-0.7) k/uL Basophils # (0-0.2) k/uL PT 10.7 (9.0-12.0) sec INR 1.0 (<1.2) APTT 27.8 (22.0-30.0) sec Sodium (137-145) mmol/L Potassium (3.5-5.1) mmol/L Chloride (98-107) mmol/L Carbon Dioxide (22-30) mmol/L Anion Gap mmol/L BUN (7-17) mg/dL Creatinine (0.52-1.04) mg/dL Est GFR (CKD-EPI)AfAm (>60 ml/min/1.73 sqM) Est GFR (CKD-EPI)NonAf (>60 ml/min/1.73 sqM) Glucose (74-99) mg/dL Plasma Lactic Acid [place] (0.7-2.0) mmol/L Calcium (8.4-10.2) mg/dL Magnesium (1.6-2.3) mg/dL Total Bilirubin (0.2-1.3) mg/dL AST (14-36) U/L ALT (9-52) U/L Alkaline Phosphatase (38-126) U/L Creatine Kinase (30-135) U/L Total Protein (6.3-8.2) g/dL Albumin (3.5-5.0) g/dL Urine Color Yellow Urine Appearance Turbid H (Clear) Urine pH 8.5 H (5.0-8.0) Ur Specific [place] 1.014 (1.001-1.035) Urine Protein 1+ H (Negative) Urine Glucose (UA) Negative (Negative) Urine Ketones Negative (Negative) Urine Blood Negative (Negative) Urine Nitrite Negative (Negative) Urine Bilirubin Negative (Negative) Urine Urobilinogen 2.0 (<2.0) mg/dL Ur Leukocyte Esterase Large H (Negative) Urine WBC 12 H (0-5) /hpf Amorphous Sediment Many H (None) /hpf Urine Bacteria Occasional H (None) /hpf Urine Mucus Rare H (None) /hpf Disposition Clinical Impression: Weakness, Exacerbation of multiple sclerosis, Pressure ulcer of coccygeal region, stage 4, Fever, Sepsis, Urinary tract infection, Leukocytosis Disposition: ADMITTED IP TO THIS HOSP Condition: Serious Is patient prescribed a controlled substance at d/c from ED?: No Decision to Admit Reason: Admit from EC Decision Date: 01/12/19 Decision Time: 13:55
--- NOTE | 2019-01-12 13:10 | CT ---
EXAMINATION TYPE: CT brain wo con DATE OF EXAM: 01/12/2019 COMPARISON: 11/17/2013 INDICATION: Fever, Bilateral upper extremity weakness, sacral wound, hx osteomyelitis DLP: 1099.4 mGycm, Automated exposure control for dose reduction was used. CONTRAST: None CT of the brain is performed utilizing 3 mm thick sections through the posterior fossa and 3 mm thick sections through the remaining calvarium. Study is performed within 24 hours of arrival to the hosp [place]. No abnormal hyperdensity is present to suggest an acute intracranial hemorrhage. No mass lesion is evident. No acute infarcts are evident. There is some mild subcortical hypodensity within the left frontal lob e at the level of the anterior horn left lateral ventricle. Ventricles and sulci are appropriate for the patient age. Paranasal sinuses and mastoid air cells within the [id number] are clear. IMPRESSIONS: 1. Mild subcortical white matter changes left frontal lobe. This is of indeterminate age. Microvasc ular ischemic changes favored. Consider MRI for additional workup
--- NOTE | 2019-01-12 13:12 | CT ---
EXAMINATION TYPE: CT cervical spine w con DATE OF EXAM: 01/12/2019 COMPARISON: 11/17/2013 HISTORY: Fever, bilateral upper extremity weakness CT DLP: 2947.9 mGycm CONTRAST: Performed with IV Contrast, patient injected with 100 ml mL of Isovue 300. CT of the cervical spine is performed in the axial plane at 2 mm thick sections. Reconstructed image s in the coronal, and sagittal plane are reviewed on the computer. No acute fractures are evident. There is spina bifida occulta of C1 which is a normal variant. Vertebral body alignment is normal. Disc heights are preserved. Vertebral body heights are preserved. No spinal canal stenosis is evident No neural foraminal stenosis is evident. IMPRESSIONS: 1. Normal CT cervical spine.
--- NOTE | 2019-01-12 13:18 | CT ---
EXAMINATION TYPE: CT abdomen pelvis w con DATE OF EXAM: 01/12/2019 COMPARISON: CT pelvis 08/30/2017 INDICATION: Fever, bilateral upper extremity weakness, sacral wound, hx of osteomyelitis DLP: 2947.9 mGycm, Automated exposure control for dose reduction was used. CONTRAST: 100 ml mL of Isovue 300. Study performed without Oral Contrast TECHNIQUE: Axial images were obtained from above the diaphragm to the pubic rami in the axial plane a t 5 mm thick sections. Reconstructed images are reviewed on the computer in the coronal plane. FINDINGS: Limited CT sections are obtained the lung bases. The lung bases are clear. CT ABDOMEN: Liver: Normal Spleen: Normal Pancreas: Normal Adrenal glands: The adrenal glands are normal. Gallbladder: Normal Kidneys: No masses are evident. No hydronephrosis is present. No cysts are present. Multiple bilat eral renal stones without obstruction or present. This would include a 0.5 cm calcification posterior medial mid right kidney, a 0.6 cm calcification mid to inferior pole left kidney, 0.5 cm calcificati on inferior pole left kidney and 0.3 cm calcification inferior pole left kidney. Aorta: Vascular calcification is within the aorta. Inferior vena cava: Normal. CT PELVIS: Loops of bowel within the abdomen and pelvis are normal. There are loops of bowel which are incom pletely distended or lack oral contrast limiting their evaluation. Appendix: Small amount of free fluid is adjacent to the cecum. The appendix is not identified. No mayela picious inflammatory changes are present. Urinary bladder: Decompressed by a Chaves catheter Genitourinary structures: Uterus and ovaries appear normal Osseous structures: There is IMPRESSIONS: 1. Nonobstructing bilateral renal stones. 2. There is a soft tissue abnormality extending to the sacrum. The left lamina may be eroded. Osteomy elitis should be considered.1 series 301 image 81. Coccyx appears absent.
[2019-01-12] MEDS ORDERED: ACETAMINOPHEN TAB 325 MG TAB PO PRN ×2 (13:59→15:34)
[2019-01-12] MEDS ORDERED: NALOXONE 0.4 MG/ML 1 ML VIAL IV PRN (13:59)
[2019-01-12] MEDS: SODIUM CHLORIDE 0.9% 1,000 ML IV SCH (14:25)
[2019-01-12] MEDS ORDERED: BISACODYL 10 MG SUPP RECTAL PRN (15:34)
[2019-01-12] MEDS ORDERED: BENZOCAINE 20 % GEL 15 GM TUBE MM PRN (15:34)
[2019-01-12] MEDS ORDERED: [UNRECOGNIZED DRUG - OTHER] TOPICAL PRN (15:34)
[2019-01-12] MEDS ORDERED: PIPERACILLIN-TAZOBACTAM 3.375 GM in SODIUM CHLORIDE 0.9% 100 ML IVPB SCH (16:00)
[2019-01-12] MEDS: HYDROcodone/APAP 5-325MG 1 EACH TAB PO PRN (16:15)
[2019-01-12] MEDS: HEPARIN SODIUM,PORCINE 5,000 UNIT/ML 1 ML VIAL SQ SCH (16:16)
--- NOTE | 2019-01-12 17:01 | P.CNNES ---
History of Present Illness Consult date: 01/12/19 Requesting physician: Paris Osorio Reason for Consult: Multiple sclerosis/worsening upper extremity weakness. History of Present Illness: Patient is a 48-year-old female who was diagnosed with multiple sclerosis about 11 years ago. She was initially placed on Copaxone, then switched to Tecfidera, which she has been taking for the last 5 years. Patient follows up with Dr. Chen. Patient states that she suffered from back injury 3 years ago, when she was at her doctor's office, trying to sit on a chair, when the nurse at doctor's office felt that she was backing and pulled the chair and she fell on the floor, producing fracture of the "tailbone". Patient subsequently developed pressure ulcers ulcer, and then had an MS relapse afterwards. Patient has been wheelchair-bound since last 3 years. Patient and her significant other states that this morning she woke up and was noticing high temperature, and she could not move her arms as well. She therefore decided to come to the ER to rule out MS exacerbation. Patient had abdominal and pelvic computed tomography scan, which revealed nonobstructing bilateral renal stones. A soft tissue abnormality extending to the sacrum. The left lamina may be eroded. Osteomyelitis should be considered. Coccyx appears absent. EKG showed sinus tachycardia. Computed tomography scan of the head showed mild subcortical white matter changes left frontal lobe. This is of indeterminate age. Microvascular ischemic changes favored. CT of the cervical spine is normal. Chest x-ray showed cardiomegaly. Sensation of the left perihilar infiltrate. Correlate for atypical pulmonary edema. Pneumonia could be considered. Follow-up exams can be performed as clinically indicated. Patient has history of extensive acute thrombus in the left jugular, subclavian, axillary and brachial veins on 08/22/2016. Patient currently not on any anticoagulants. She is on aspirin 81 mg at home. Patient's most recent MRI of the cervical spine from 09/04/2018 showed suboptimal study with artifact degraded patient. Likely persistent demyelinating disease involving the upper to mid cervical spinal cord without significant interval change. No enhancing lesions are seen. MRI of the brain with and without contrast showed moderate to severe white matter changes redemonstrated without significant interval change as compared to the MRI from 08/18/2017. No enhancing lesions are present. Review of Systems As per HPI. Patient complains of swelling of the legs, fever, back pain. Ataxia. Denies chest pain shortness of breath. Denies diplopia. Denies dysphagia. Arthritis. Left leg weakness. Kidney stones. Past Medical History Past Medical History: Dialysis, Hyperlipidemia, Musculoskeletal Disorder, Neurologic Disorder, Pneumonia, Renal Disease, Thyroid Disorder Additional Past Medical History / Comment(s): Multiple sclerosis stage IV- wheelchair bound, L side weaker than right, bilateral lower extremity edema, CKD, past renal failure with hemodialysis-last time was July 2016, hyperkalemia, sacral decub, sacral osteomylitis, neurogenic bladder with indwelling austin-pt thinks last time catheter was changed was last month, UTIs, past sepsis, chrnic low back pain, hypothyroid, iron deficiency anemia. History of Any Multi-Drug Resistant Organisms: ESBL, MRSA, VRE Date of last positivie culture/infection: 05/22/16 MRSA; 05/18/16 VRE,ESBL 08/27/17 MDRO Source:: , ESBL 08/27/17 URINE, MRSA BLOOD Past Surgical History: No Surgical Hx Reported Additional Past Surgical History / Comment(s): LP, debridement decubitus sacral ulcer, hemodialysis cath since removed, picc lines-none present. Past Anesthesia/Blood Transfusion Reactions: No Reported Reaction Additional Past Anesthesia/Blood Transfusion Reaction / Comment(s): Pt has received blood in past without reaction. Smoking Status: Never smoker - Past Family History Father History Unknown: Yes Additional Family Medical History / Comment(s): PTS DAD LIVED IN [place]- SHE'S NOT SURE WHAT HE FROM. HE HAD HYPOTENSION. Mother Family Medical History: Coronary Artery Disease (CAD), Diabetes Mellitus, Hyperlipidemia, Hypertension Additional Family Medical History / Comment(s): CARDIAC STENTS Medications and Allergies Home Medications Medication Instructions Recorded Confirmed Type Baclofen [Lioresal] 10 mg PO TID@0700,1300,1900 11/17/13 01/12/19 History Bisacodyl [Dulcolax] 10 mg RECTAL DAILY PRN 04/23/16 01/12/19 History Acetaminophen Tab [Tylenol] 650 mg PO Q6HR PRN 05/17/16 01/12/19 History Multivitamins, Thera [Multivitamin 1 tab PO DAILY@0700 05/17/16 01/12/19 History (formulary)] Omeprazole [PriLOSEC] 20 mg PO DAILY 05/17/16 01/12/19 History Gabapentin [Neurontin] 300 mg PO TID@0700,1300,1900 06/26/16 01/12/19 History Ondansetron [Zofran] 4 mg PO Q8HR PRN 06/26/16 01/12/19 History Folic Acid 1 mg PO DAILY@0700 08/22/16 01/12/19 History Levothyroxine Sodium [Synthroid] 50 mcg PO DAILY@0700 08/22/16 01/12/19 History Lidocaine 4% Cream [Lmx 4] 1 applic TOPICAL QID 08/22/16 01/12/19 History Pro-Stat Awc 30 ml PO BID 08/22/16 01/12/19 History Thiamine [Vitamin B-1] 100 mg PO DAILY@0700 08/22/16 01/12/19 History Benzocaine 20 % Gel [Orajel] 1 applic MM QID PRN 08/27/17 01/12/19 History Cholecalciferol [Vitamin D3 (25 5,000 unit PO HS 08/27/17 01/12/19 History Mcg = 1000 Iu)] HYDROcodone/APAP 5-325MG [[place] 1 tab PO Q6H PRN #12 tab 09/01/17 01/12/19 Rx 5-325] Pravastatin Sodium [Pravachol] 40 mg PO HS tab 09/01/17 01/12/19 Rx Dimethyl Fumarate [Tecfidera] 240 mg PO BID 11/03/17 01/12/19 History Ferrous Sulfate [Feosol] 325 mg PO BID 11/03/17 01/12/19 History Aspirin EC [Ecotrin Low Dose] 81 mg PO DAILY 01/12/19 01/12/19 History Cyanocobalamin [Vitamin B-12] 500 mcg PO DAILY 01/12/19 01/12/19 History Fluticasone Nasal [place] [Flonase 2 spr EA NOSTRIL HS 01/12/19 01/12/19 History Nasal [place]] Inter Dry 1 applic TOPICAL DAILY PRN 01/12/19 01/12/19 History Miconazole Powder 1 applic TOPICAL BID 01/12/19 01/12/19 History Potassium Chloride ER [K-Dur 20] 20 meq PO BID 01/12/19 01/12/19 History Spironolactone [Aldactone] 25 mg PO DAILY 01/12/19 01/12/19 History Torsemide [Demadex] 80 mg PO DAILY 01/12/19 01/12/19 History Allergies Allergy/AdvReac Type Severity Reaction Status Date / Time cinnamon Allergy Rash/Hives Verified 01/12/19 11:36 Physical Examination - Vital Signs Vital Signs: Vital Signs Temp Pulse Pulse Resp BP BP Pulse Ox 01/12/19 15:28 98.8 F 118 H 16 110/69 97 01/12/19 14:16 99.5 F 01/12/19 14:00 110 H 18 98/65 01/12/19 13:30 114 H 18 96/67 01/12/19 12:01 126 H 20 114/74 01/12/19 11:00 125 H 21 129/81 98 01/12/19 10:45 126/87 97 01/12/19 10:42 103 F H Intake and Output 01/12/19 01/12/19 01/12/19 06:59 14:59 22:59 Other: Weight 116.573 kg On examination patient is a middle aged female, in no acute distress. Patient is alert and awake, oriented. Speech is mildly dysarthric. No aphasia. Patient knows that it is December 2018 and that she is in [facility] in [facility]. On cranial nerve examination her pupils are round and reacting, visual jennings appears full, patient has right facial asymmetry and tongue protrudes the midline. On muscle strength testing (right/left) deltoid 4+/3+, biceps 5-/5-, triceps 5-/5-, dock or pier laborer 4+/4-, hip flexion 1/0, ankle dorsiflexion 4+/0. Patient has significant ataxia for [id number] testing, left much worse than right. Reflexes are brisk and patient has bilateral Babinski. Sensory to touch is equal. Tone is increased in the legs. Her left leg appears somewhat swollen, rash, rule out cellulitis. Results Patient's last B12 was 312 on 11/14/2014. - Laboratory Findings CBC and BMP: 01/12/19 10:50 01/12/19 10:50 Abnormal Lab Findings: Abnormal Labs 01/12/19 01/12/19 01/12/19 10:50 10:50 10:50 WBC 13.3 H MCHC 30.5 L Neutrophils # 12.4 H Lymphocytes # 0.4 L BUN 25 H Glucose 128 H Calcium 10.3 H Creatine Kinase <20 L Urine Appearance Turbid H Urine pH 8.5 H Urine Protein 1+ H Ur Leukocyte Esterase Large H Urine WBC 12 H Amorphous Sediment Many H Urine Bacteria Occasional H Urine Mucus Rare H Assessment and Plan Assessment: * 48-year-old patient with long-standing history of MS, currently wheelchair- bound, came with fever and upper extremity weakness. * Doubt MS exacerbation. Patient probably has febrile illness, which is unmasking old MS lesions. * Rule out osteomyelitis coccygeal region. Rule out left leg cellulitis/DVT left leg. Rule out sepsis. Plan: * Suggest ID consultation for evaluation of probable infectious process. * Consider ultrasound of lower extremities to rule out DVT. * I would not recommend high-dose steroids at this time, as her weakness is likely related to some febrile illness, unmasking old MS lesions. Corticosteroids can disseminate infection. * Patient's lymphocyte counts are low 0.4. If the lymphocyte count stays low, then would recommend to hold Tecfidera. Recommendation is to hold Tecfidera if absolute lymphocyte counts are persistently less than 500. * I Will follow patient clinically. * Thank you very much for allowing me to participate in care of your patient.
[2019-01-12] MEDS ORDERED: IBUPROFEN 400 MG TAB PO PRN (18:00)
[2019-01-12] MEDS: LIDOCAINE 4% CREAM 5 GM TUBE TOPICAL SCH ×2 (18:08→22:01)
[2019-01-12] MEDS ORDERED: PRO STAT AWC PO SCH (21:00)
[2019-01-12] MEDS: CHOLECALCIFEROL 1,000 UNIT TAB PO SCH (22:00)
[2019-01-12] MEDS: BACLOFEN 10 MG TAB PO SCH (22:00)
[2019-01-12] MEDS: FLUTICASONE 50MCG/SPRAY NASAL 16GM EA NOSTRIL SCH (22:00)
[2019-01-12] MEDS: GABAPENTIN 300 MG CAP PO SCH (22:00)
[2019-01-12] MEDS: NYSTATIN 100,000 UNIT/GM POWD 15 GM TOPICAL SCH (22:01)
[2019-01-12] MEDS: PRAVASTATIN SODIUM 40 MG TAB PO SCH (22:01)
[2019-01-12] MEDS: POTASSIUM CHLORIDE ER 20 MEQ TAB.ER PO SCH (22:01)
--- NOTE | 2019-01-12 23:52 | P.CONS ---
History of Present Illness - Reason for Consult Consult date: 01/12/19 Urinary tract infection and question of sacral osteomyelitis Requesting physician: Mily Cronin - Chief Complaint Fever and mental status changes - History of Present Illness Patient is a 48-year-old female with a past medical history significant for MS patient is bedbound patient did have a history of for stage IV sacral pressure ulcer with underlying osteomyelitis initially with MRSA back in 2017 and subsequently did have positive culture with ESBL E. coli patient to follow with us regularly in the wound care center and on her last wound care center the patient would has a paralyzed answered no specific treatment was recommended patient did have a chronic indwelling Austin catheter and it is not very clear when the catheter has been change. Patient has been brought into the ER at [facility] for evaluation of fever and mental status changes but no specifically the patient she said she didn't know why she is here in the hospital the patient noticed to have a fever to 100F she was tachycardic and did have elevated white count 13,000 further workup including a chest x-ray which some left perihilar infiltrate with question of atypical fluid in this patient currently does not have any cough or sputum production patient also have a positive UA however this has been obtained from the chronic due to Austin catheter which has not been changed in the ER and not very clear for how long she has this catheter patient also have a CT of abdominal pelvis which did shows evidence of nonobstructive renal calculi did mention a soft tissue growth extending toward the sacrum and concern for sacral osteomyelitis patient has been started on Zosyn and with the hospital infectious disease was consulted for further recommendation for antibiotic therapy Review of Systems Positive point has been mentioned in the HPI rest of the systems are negative Past Medical History Past Medical History: Dialysis, Hyperlipidemia, Musculoskeletal Disorder, Neurologic Disorder, Pneumonia, Renal Disease, Thyroid Disorder Additional Past Medical History / Comment(s): Multiple sclerosis stage IV- wheelchair bound, L side weaker than right, bilateral lower extremity edema, CKD, past renal failure with hemodialysis-last time was July 2016, hyperkalemia, sacral decub, sacral osteomylitis, neurogenic bladder with indwelling austin-pt thinks last time catheter was changed was last month, UTIs, past sepsis, chrnic low back pain, hypothyroid, iron deficiency anemia. History of Any Multi-Drug Resistant Organisms: ESBL, MRSA, VRE Year Discovered:: 3/3/17 MRSA; 05/18/16 VRE,ESBL 08/27/17 MDRO Source:: , ESBL 08/27/17 URINE, MRSA BLOOD Past Surgical History: No Surgical Hx Reported Additional Past Surgical History / Comment(s): LP, debridement decubitus sacral ulcer, hemodialysis cath since removed, picc lines-none present. Past Anesthesia/Blood Transfusion Reactions: No Reported Reaction Additional Past Anesthesia/Blood Transfusion Reaction / Comm: Pt has received blood in past without reaction. Smoking Status: Never smoker - Past Family History Father History Unknown: Yes Additional Family Medical History / Comment(s): PTS DAD LIVED IN [place]- SHE'S NOT SURE WHAT HE FROM. HE HAD HYPOTENSION. Mother Family Medical History: Coronary Artery Disease (CAD), Diabetes Mellitus, Hyperlipidemia, Hypertension Additional Family Medical History / Comment(s): CARDIAC STENTS Medications and Allergies Home Medications Medication Instructions Recorded Confirmed Type Baclofen [Lioresal] 10 mg PO TID@0700,1300,1900 11/17/13 01/12/19 History Bisacodyl [Dulcolax] 10 mg RECTAL DAILY PRN 04/23/16 01/12/19 History Acetaminophen Tab [Tylenol] 650 mg PO Q6HR PRN 05/17/16 01/12/19 History Multivitamins, Thera [Multivitamin 1 tab PO DAILY@0700 05/17/16 01/12/19 History (formulary)] Omeprazole [PriLOSEC] 20 mg PO DAILY 05/17/16 01/12/19 History Gabapentin [Neurontin] 300 mg PO TID@0700,1300,1900 06/26/16 01/12/19 History Ondansetron [Zofran] 4 mg PO Q8HR PRN 06/26/16 01/12/19 History Folic Acid 1 mg PO DAILY@0700 08/22/16 01/12/19 History Levothyroxine Sodium [Synthroid] 50 mcg PO DAILY@0700 08/22/16 01/12/19 History Lidocaine 4% Cream [Lmx 4] 1 applic TOPICAL QID 08/22/16 01/12/19 History Pro-Stat Awc 30 ml PO BID 08/22/16 01/12/19 History Thiamine [Vitamin B-1] 100 mg PO DAILY@0700 08/22/16 01/12/19 History Benzocaine 20 % Gel [Orajel] 1 applic MM QID PRN 08/27/17 01/12/19 History Cholecalciferol [Vitamin D3 (25 5,000 unit PO HS 08/27/17 01/12/19 History Mcg = 1000 Iu)] HYDROcodone/APAP 5-325MG [[place] 1 tab PO Q6H PRN #12 tab 09/01/17 01/12/19 Rx 5-325] Pravastatin Sodium [Pravachol] 40 mg PO HS tab 09/01/17 01/12/19 Rx Dimethyl Fumarate [Tecfidera] 240 mg PO BID 11/03/17 01/12/19 History Ferrous Sulfate [Feosol] 325 mg PO BID 11/03/17 01/12/19 History Aspirin EC [Ecotrin Low Dose] 81 mg PO DAILY 01/12/19 01/12/19 History Cyanocobalamin [Vitamin B-12] 500 mcg PO DAILY 01/12/19 01/12/19 History Fluticasone Nasal [place] [Flonase 2 spr EA NOSTRIL HS 01/12/19 01/12/19 History Nasal [place]] Inter Dry 1 applic TOPICAL DAILY PRN 01/12/19 01/12/19 History Miconazole Powder 1 applic TOPICAL BID 01/12/19 01/12/19 History Potassium Chloride ER [K-Dur 20] 20 meq PO BID 01/12/19 01/12/19 History Spironolactone [Aldactone] 25 mg PO DAILY 01/12/19 01/12/19 History Torsemide [Demadex] 80 mg PO DAILY 01/12/19 01/12/19 History Allergies Allergy/AdvReac Type Severity Reaction Status Date / Time cinnamon Allergy Rash/Hives Verified 01/12/19 11:36 Physical Exam Vitals: Vital Signs Temp Pulse Resp BP Pulse Ox 01/12/19 14:16 99.5 F 01/12/19 14:00 110 H 18 98/65 01/12/19 13:30 114 H 18 96/67 01/12/19 12:01 126 H 20 114/74 01/12/19 11:00 125 H 21 129/81 98 01/12/19 10:45 126/87 97 01/12/19 10:42 103 F H Intake and Output 01/12/19 01/12/19 01/12/19 06:59 14:59 22:59 Other: Weight 116.573 kg GENERAL DESCRIPTION: Middle-aged female lying in bed, no distress. No tachypnea or accessory muscle of respiration use. HEENT: Shows Pallor , no scleral icterus. Oral mucous membrane is dry. No pharyngeal erythema or thrush NECK: Trachea central, no thyromegaly. LUNGS: Unlabored breathing. Clear to auscultation anteriorly. No wheeze or crackle. HEART: S1, S2, regular rate and rhythm. No loud murmur ABDOMEN: Soft, no tenderness , guarding or rigidity, no organomegaly EXTREMITIES: Left leg with swelling and redness slightly warm to touch SKIN: No rash, no masses palpable. Sacral wound currently with no evidence of any surrounding swelling redness or any foul-smelling drainage NEUROLOGICAL: The patient is awake, alert, oriented x3, mood and affect normal. Results CBC & Chem 7: 01/12/19 10:50 01/12/19 10:50 Labs: Abnormal Lab Results - Last 24 Hours (Table) 01/12/19 01/12/19 01/12/19 Range/Units 10:50 10:50 10:50 WBC 13.3 H (3.8-10.6) k/uL MCHC 30.5 L (31.0-37.0) g/dL Neutrophils # 12.4 H (1.3-7.7) k/uL Lymphocytes # 0.4 L (1.0-4.8) k/uL BUN 25 H (7-17) mg/dL Glucose 128 H (74-99) mg/dL Calcium 10.3 H (8.4-10.2) mg/dL Creatine Kinase <20 L (30-135) U/L Urine Appearance Turbid H (Clear) Urine pH 8.5 H (5.0-8.0) Urine Protein 1+ H (Negative) Ur Leukocyte Esterase Large H (Negative) Urine WBC 12 H (0-5) /hpf Amorphous Sediment Many H (None) /hpf Urine Bacteria Occasional H (None) /hpf Urine Mucus Rare H (None) /hpf Assessment and Plan Assessment: 1-patient presented to hospital with sepsis in this patient who did have a fever tachycardia and elevated white count source would like him at [facility] this patient with likely left lower extremity cellulitis in with diffuse swelling likely streptococcal disease disease patient did have a positive UA underlying UTI the prednisone however the symptom has been obtained from the Austin catheter has been there for a while patient also does have abnormality of the sacrum on the basis of the CT however no significant findings were noticed at the time of evaluation of the sacral wound with no purulence or any cellulitis (1) Left leg cellulitis Current Visit: Yes Status: Acute Code(s): L03.116 - CELLULITIS OF LEFT LOWER LIMB SNOMED Code(s): 817465841 (2) Sepsis Current Visit: Yes Status: Acute Code(s): A41.9 - SEPSIS, UNSPECIFIED ORGANISM SNOMED Code(s): 10796427 (3) Urinary tract infection Current Visit: Yes Status: Acute Code(s): N39.0 - URINARY TRACT INFECTION, SITE NOT SPECIFIED SNOMED Code(s): 75987847 (4) Decubitus ulcer Current Visit: No Status: Acute Code(s): L89.90 - PRESSURE ULCER OF UNSPECIFIED SITE, UNSPECIFIED STAGE SNOMED Code(s): 692940053 Plan: 1-change Asutin catheter obtain urine culture from the new [place] 2-marked the area of the redness left leg 3-review CT with the radiologist in a.m. 4-discontinue Zosyn 5-start the patient on cefepime 2 g every 12 hours 6-IV fluids We will follow on clinical condition and cultures to further adjust medication if needed Thank you for this consultation will follow this patient with you Time with Patient: Greater than 30
[2019-01-13] MEDS: SODIUM CHLORIDE 0.9% 1,000 ML IV SCH ×2 (00:30→10:19)
[2019-01-13] MEDS: HEPARIN SODIUM,PORCINE 5,000 UNIT/ML 1 ML VIAL SQ SCH ×4 (00:42→23:43)
[2019-01-13] MEDS: CEFEPIME 2 GM in SODIUM CHLORIDE 0.9% 100 ML IVPB SCH ×3 (00:42→23:32)
[2019-01-13] MEDS: HYDROcodone/APAP 5-325MG 1 EACH TAB PO PRN ×4 (00:44→22:26)
[2019-01-13 06:15] LABS: Basophils % (A) 0 %; Eosinophils # (A) 0.1 k/uL (0-0.7); Eosinophils % (A) 1 %; HCT 34.2 % (34.0-46.0); HGB 11.6 gm/dL (11.4-16.0); Lymphocytes # (A) 0.7 k/uL (1.0-4.8); Lymphocytes % (A) 7 %; MCH 30.1 pg (25.0-35.0); MCHC 33.9 g/dL (31.0-37.0); MCV 88.8 fL (80.0-100.0); Mean Platelet Volume 6.3; Monocytes # (A) 0.2 k/uL (0-1.0); Monocytes % (A) 2 %; Neutrophils % (A) 87 %; Platelet Count 280 k/uL (150-450); RBC 3.86 m/uL (3.80-5.40); WBC 9.2 k/uL (3.8-10.6)
[2019-01-13 06:29] LABS: African American GFR (CKD) >90 (>60 ml/min/1.73 sqM); Anion Gap 10 mmol/L; Blood Urea Nitrogen 19 mg/dL (7-17); Calcium 9.2 mg/dL (8.4-10.2); Carbon Dioxide 23 mmol/L (22-30); Chloride 106 mmol/L (98-107); Glucose 103 mg/dL (74-99); Potassium 3.9 mmol/L (3.5-5.1); Sodium 139 mmol/L (137-145)
[2019-01-13 07:09] LABS: Erythrocyte Sedimentation Rate 31 mm/hr (0-20)
[2019-01-13 08:25] LABS: C Reactive Protein 204.6 mg/L (<10.0)
[2019-01-13] MEDS: FOLIC ACID 1 MG TAB PO SCH (09:03)
[2019-01-13] MEDS: PANTOPRAZOLE 40 MG TABLET PO SCH (09:03)
[2019-01-13] MEDS: MULTIVITAMINS, THERA 1 EACH TAB PO SCH (09:03)
[2019-01-13] MEDS: BACLOFEN 10 MG TAB PO SCH ×3 (09:03→21:20)
[2019-01-13] MEDS: POTASSIUM CHLORIDE ER 20 MEQ TAB.ER PO SCH ×2 (09:03→21:19)
[2019-01-13] MEDS: CYANOCOBALAMIN 500 MCG TAB PO SCH (09:03)
[2019-01-13] MEDS: THIAMINE 100 MG TAB PO SCH (09:04)
[2019-01-13] MEDS: LEVOTHYROXINE 50 MCG TAB PO SCH (09:04)
[2019-01-13] MEDS: GABAPENTIN 300 MG CAP PO SCH ×3 (09:04→21:20)
[2019-01-13] MEDS: LIDOCAINE 4% CREAM 5 GM TUBE TOPICAL SCH ×4 (10:16→21:21)
[2019-01-13] MEDS: NYSTATIN 100,000 UNIT/GM POWD 15 GM TOPICAL SCH ×2 (10:17→21:21)
--- NOTE | 2019-01-13 10:19 | P.HPIM ---
History of Present Illness H&P Date: 01/12/19 Chief Complaint: Fever Patient is a 48-year-old female with a known history of multiple sclerosis currently bedbound, history of E. coli infection of sacral decub ulcers, chronic Austin catheter due to neurogenic bladder, chronic kidney disease with history of hemodialysis, morbid obesity was initially presents to outside hospital facility with the complaints of right upper extremities and the increasing weakness. Patient does have chronically left upper extremities weakness. Patient was also febrile with T-max 10 3F on admission. Patient also having generalized wea kness. Patient does have extensive history of sacral decub ulcers and history of ESBL E. coli previously. Patient otherwise denied any complaints of chest pain or shortness of breath. No cough or sputum production. Patient does have abdominal pain. No complaints of worsening back pain. Patient was also having an bilateral lower extremities edema is also some redness noted. Patient does have a chronic Austin catheter for the past 3 years. Denied any complaints of nausea vomiting or diarrhea constipation. No hematemesis or melena. Denied any blurry vision no facial droop or slurring of the speech. Patient was transferred to [facility] for further evaluation. Chest x-ray showed cardiomegaly, saturation of left perihilar infiltrate. Correlate for atypical pulmonary edema. Pneumonia could be considered. Follow- up exams can be performed as clinically indicated. CT of abdomen pelvis showed nonobstructing bilateral renal stones. There is soft tissue abnormality extending to the sacrum the left lamina may be loaded. Osteomyelitis should be considered. Coccyx appears absent. CT head showed mild subcortical white matter changes left frontal lobe. Disease of indeterminate age. Microvascular ischemic changes favored. Consider MRI for additional workup. Urinalysis showed her blood and large leukocyte esterase with pyuria WBC 13.3 Neurology and infectious disease Review of Systems Constitutional: Patient does have fever. No chills. Does have generalized weakness.. Abdomen: Patient denied nausea vomiting and diarrhea. Does have lower abdominal abdominal pain. Cardiovascular: Patient denies any chest pain or short of breath no palpitations. Respiratory: patient denied any cough is from production. No shortness of breath Neurologic: Patient denied any numbness or tingling headache. Right upper extremities weakness. Musculoskeletal: Patient denies any complaints of joint swelling or deformity. Skin: Negative Psychiatric: Negative Endocrine: No heat or cold intolerance. No recent weight gain. Genitourinary: No dysuria or hematuria. All other 14 point ROS negative except the above Past Medical History Past Medical History: Dialysis, Hyperlipidemia, Musculoskeletal Disorder, Neurologic Disorder, Pneumonia, Renal Disease, Thyroid Disorder Additional Past Medical History / Comment(s): Multiple sclerosis stage IV- whee lchair bound, L side weaker than right, bilateral lower extremity edema, CKD, past renal failure with hemodialysis-last time was July 2016, hyperkalemia, sacral decub, sacral osteomylitis, neurogenic bladder with indwelling austin-pt thinks last time catheter was changed was last month, UTIs, past sepsis, chrnic low back pain, hypothyroid, iron deficiency anemia. History of Any Multi-Drug Resistant Organisms: ESBL, MRSA, VRE Date of last positivie culture/infection: 05/22/16 MRSA; 05/18/16 VRE,ESBL 08/27/17 MDRO Source:: , ESBL 08/27/17 URINE, MRSA BLOOD Past Surgical History: No Surgical Hx Reported Additional Past Surgical History / Comment(s): LP, debridement decubitus sacral ulcer, hemodialysis cath since removed, picc lines-none present. Past Anesthesia/Blood Transfusion Reactions: No Reported Reaction Additional Past Anesthesia/Blood Transfusion Reaction / Comment(s): Pt has received blood in past without reaction. Smoking Status: Never smoker - Past Family History Father History Unknown: Yes Additional Family Medical History / Comment(s): PTS DAD LIVED IN [place]- SHE'S NOT SURE WHAT HE FROM. HE HAD HYPOTENSION. Mother Family Medical History: Coronary Artery Disease (CAD), Diabetes Mellitus, Hyperlipidemia, Hypertension Additional Family Medical History / Comment(s): CARDIAC STENTS Medications and Allergies Home Medications Medication Instructions Recorded Confirmed Type Baclofen [Lioresal] 10 mg PO TID@0700,1300,1900 11/17/13 01/12/19 History Bisacodyl [Dulcolax] 10 mg RECTAL DAILY PRN 04/23/16 01/12/19 History Acetaminophen Tab [Tylenol] 650 mg PO Q6HR PRN 05/17/16 01/12/19 History Multivitamins, Thera [Multivitamin 1 tab PO DAILY@0700 05/17/16 01/12/19 History (formulary)] Omeprazole [PriLOSEC] 20 mg PO DAILY 05/17/16 01/12/19 History Gabapentin [Neurontin] 300 mg PO TID@0700,1300,1900 06/26/16 01/12/19 History Ondansetron [Zofran] 4 mg PO Q8HR PRN 06/26/16 01/12/19 History Folic Acid 1 mg PO DAILY@0700 08/22/16 01/12/19 History Levothyroxine Sodium [Synthroid] 50 mcg PO DAILY@0700 08/22/16 01/12/19 History Lidocaine 4% Cream [Lmx 4] 1 applic TOPICAL QID 08/22/16 01/12/19 History Pro-Stat Awc 30 ml PO BID 08/22/16 01/12/19 History Thiamine [Vitamin B-1] 100 mg PO DAILY@0700 08/22/16 01/12/19 History Benzocaine 20 % Gel [Orajel] 1 applic MM QID PRN 08/27/17 01/12/19 History Cholecalciferol [Vitamin D3 (25 5,000 unit PO HS 08/27/17 01/12/19 History Mcg = 1000 Iu)] HYDROcodone/APAP 5-325MG [[place] 1 tab PO Q6H PRN #12 tab 09/01/17 01/12/19 Rx 5-325] Pravastatin Sodium [Pravachol] 40 mg PO HS tab 09/01/17 01/12/19 Rx Dimethyl Fumarate [Tecfidera] 240 mg PO BID 11/03/17 01/12/19 History Ferrous Sulfate [Feosol] 325 mg PO BID 11/03/17 01/12/19 History Aspirin EC [Ecotrin Low Dose] 81 mg PO DAILY 01/12/19 01/12/19 History Cyanocobalamin [Vitamin B-12] 500 mcg PO DAILY 01/12/19 01/12/19 History Fluticasone Nasal [place] [Flonase 2 spr EA NOSTRIL HS 01/12/19 01/12/19 History Nasal [place]] Inter Dry 1 applic TOPICAL DAILY PRN 01/12/19 01/12/19 History Miconazole Powder 1 applic TOPICAL BID 01/12/19 01/12/19 History Potassium Chloride ER [K-Dur 20] 20 meq PO BID 01/12/19 01/12/19 History Spironolactone [Aldactone] 25 mg PO DAILY 01/12/19 01/12/19 History Torsemide [Demadex] 80 mg PO DAILY 01/12/19 01/12/19 History Allergies Allergy/AdvReac Type Severity Reaction Status Date / Time cinnamon Allergy Rash/Hives Verified 01/12/19 11:36 Physical Exam Vitals: Vital Signs Temp Pulse Pulse Resp BP BP Pulse Ox 01/12/19 15:28 98.8 F 118 H 16 110/69 97 01/12/19 14:16 99.5 F 01/12/19 14:00 110 H 18 98/65 01/12/19 13:30 114 H 18 96/67 01/12/19 12:01 126 H 20 114/74 01/12/19 11:00 125 H 21 129/81 98 01/12/19 10:45 126/87 97 01/12/19 10:42 103 F H Intake and Output 01/12/19 01/12/19 01/12/19 06:59 14:59 22:59 Other: Weight 116.573 kg PHYSICAL EXAMINATION: Patient is lying in the bed comfortably, no acute distress, awake alert and oriented.. HEENT: Normocephalic. Neck is supple. Pupils reactive. Nostrils clear. Oral cavity is moist. Ears reveal no drainage. Neck reveals no JVD, carotid bruits, or thyromegaly. CHEST EXAMINATION: Trachea is central. Symmetrical expansion. Lung jennings clear to auscultation and percussion. CARDIAC: Normal S1, S2 with no gallops. No murmurs ABDOMEN: Soft. Bowel sounds normal. No organomegaly. No abdominal bruits. Excellent sacral wound seems to be healing well. Extremities: Bilateral trace edema. No clubbing or cyanosis. Left leg swelling and redness and warmth present. Neurologically awake, alert, oriented x3. Patient does have paraplegia. Skin: No rash or skin lesions. Psychiatric: Coperative. Nonsuicidal Musculoskeletal: No joint swelling or deformity. Results CBC & Chem 7: 01/13/19 05:37 01/13/19 05:37 Labs: Abnormal Lab Results - Last 24 Hours (Table) 01/12/19 01/12/19 01/12/19 Range/Units 10:50 10:50 10:50 WBC 13.3 H (3.8-10.6) k/uL MCHC 30.5 L (31.0-37.0) g/dL Neutrophils # 12.4 H (1.3-7.7) k/uL Lymphocytes # 0.4 L (1.0-4.8) k/uL BUN 25 H (7-17) mg/dL Glucose 128 H (74-99) mg/dL Calcium 10.3 H (8.4-10.2) mg/dL Creatine Kinase <20 L (30-135) U/L Urine Appearance Turbid H (Clear) Urine pH 8.5 H (5.0-8.0) Urine Protein 1+ H (Negative) Ur Leukocyte Esterase Large H (Negative) Urine WBC 12 H (0-5) /hpf Amorphous Sediment Many H (None) /hpf Urine Bacteria Occasional H (None) /hpf Urine Mucus Rare H (None) /hpf Thrombosis Risk Factor Assmnt - DVT/VTE Prophylaxis DVT/VTE Prophylaxis: Pharmacologic Prophylaxis ordered - Choose All That Apply Any of the Below Risk Factors Present?: Yes Each Factor Represents 1 point: Medical pt on bed rest, Obesity (BMI >25) Other Risk Factors: Yes Each Risk Factor Represents 2 Points: Patient confined to bed Other congenital or acquired thrombophilia - If yes, enter type in comment: No Thrombosis Risk Factor Assessment Total Risk Factor Score: 4 Thrombosis Risk Factor Assessment Level: Moderate Risk Assessment and Plan Assessment: Acute urinary tract infection. Chronic Austin catheter related Left lower extremity cellulitis Sepsis secondary to above. Patient does have fever, tachycardia, leukocytosis Right upper extremity weakness. Possible MS exacerbation. Seems to be improving now Chronic left upper extremity weakness History MS.paraplegia currently bedridden History of sacral decub ulcers. Rule out osteomyelitis as per CT abdomen and pelvis Dehydration and volume depletion. Mild hypercalcemia History of ESBL MRSA and VRE infections Chronic low back pain Hypothyroidism Identification is anemia History of multiple urinary tract infections Neurogenic bladder. Chronic indwelling Austin catheter History of acute kidney injury. Was on hemodialysis previously. DVT prophylaxis with heparin subcu Plan: Next and patient be continued on broad-spectrum antibiotics. Currently on Zosyn. ID will be consulted. Neurology will be consulted as well. Continue the home medications and follow closely. Follow-up culture reports. Continue the IV hydration. Further recommendations based on the clinical course. Prognosis is guarded this time. Time with Patient: Greater than 30
--- NOTE | 2019-01-13 11:46 | P.PN ---
Subjective Progress Note Date: 01/13/19 Patient is a 48-year-old female with history of MS. Patient came with fever and weakness of her upper extremities. Patient has possible osteomyelitis of the sacral decubitus ulcer. She also has left leg swelling, possible cellulitis. Patient is on antibiotics. Patient is on Tecfidera to 40 mg twice a day for MS. Her absolute lymphocyte count was low yesterday but now it has improved to 0.7 today. Absolute neutrophil count is 8.0. WBC 9.2 hemoglobin 11.6 and platelets 280. Patient at present is on cefepime 2 g every 12 hours. Objective - Vital Signs Vital signs: Vital Signs Temp 99.1 F 01/13/19 05:57 Pulse 93 01/13/19 05:57 Resp 16 01/13/19 05:57 BP 109/64 01/13/19 05:57 Pulse Ox 95 01/13/19 05:57 Intake & Output 01/12/19 01/13/19 01/13/19 18:59 06:59 18:59 Intake Total 1890 Balance 1890 Weight 116.573 kg Intake: Intake, IV Titration 1300 Amount Cefepime 2 gm In Sodium 100 Chloride 0.9% 100 ml @ 200 mls/hr IVPB Q12H YANIRA Rx#:[id number] Sodium Chloride 0.9% 1, 1200 000 ml @ 100 mls/hr IV . Q10H YANIRA Rx#:[id number] Oral 590 Other: Voiding Method Indwelling Catheter Indwelling Catheter Indwelling Catheter # Voids 500 - Exam Patient is alert and awake in no distress. Her speech is still mildly to moderately dysarthric but this is her baseline. Cranial nerves reveals right facial asymmetry. Patient has weakness of bilateral lower limbs, left leg is severely weak with no movement. Patient has some movement in the right leg about 4+ at the ankles. Her arms are about deltoid 4+/3+, biceps 5-/5-, triceps 5-/5-. [place] [employer]er is 4+/4-patient has ataxia for [id number] testing, left much worse than right. Patient has bilateral Babinski. - Labs CBC & Chem 7: 01/13/19 05:37 01/13/19 05:37 Labs: Abnormal Lab Results - Last 24 Hours (Table) 01/12/19 01/12/19 01/12/19 Range/Units 10:50 10:50 10:50 WBC 13.3 H (3.8-10.6) k/uL MCHC 30.5 L (31.0-37.0) g/dL Neutrophils # 12.4 H (1.3-7.7) k/uL Lymphocytes # 0.4 L (1.0-4.8) k/uL ESR (0-20) mm/hr BUN 25 H (7-17) mg/dL Glucose 128 H (74-99) mg/dL Calcium 10.3 H (8.4-10.2) mg/dL Creatine Kinase <20 L (30-135) U/L C-Reactive Protein (<10.0) mg/L Urine Appearance Turbid H (Clear) Urine pH 8.5 H (5.0-8.0) Urine Protein 1+ H (Negative) Ur Leukocyte Esterase Large H (Negative) Urine WBC 12 H (0-5) /hpf Amorphous Sediment Many H (None) /hpf Urine Bacteria Occasional H (None) /hpf Urine Mucus Rare H (None) /hpf 01/13/19 01/13/19 Range/Units 05:37 05:37 WBC (3.8-10.6) k/uL MCHC (31.0-37.0) g/dL Neutrophils # 8.0 H (1.3-7.7) k/uL Lymphocytes # 0.7 L (1.0-4.8) k/uL ESR 31 H (0-20) mm/hr BUN 19 H (7-17) mg/dL Glucose 103 H (74-99) mg/dL Calcium (8.4-10.2) mg/dL Creatine Kinase (30-135) U/L C-Reactive Protein 204.6 H (<10.0) mg/L Urine Appearance (Clear) Urine pH (5.0-8.0) Urine Protein (Negative) Ur Leukocyte Esterase (Negative) Urine WBC (0-5) /hpf Amorphous Sediment (None) /hpf Urine Bacteria (None) /hpf Urine Mucus (None) /hpf Microbiology - Last 24 Hours (Table) 01/12/19 10:50 Urine Culture - Preliminary Urine,Voided Assessment and Plan Assessment: * 48-year-old patient with long-standing history of MS, currently wheelchair- bound, came with fever and upper extremity weakness. * Doubt MS exacerbation. Patient probably has febrile illness, which is unmasking old MS lesions. * Cellulitis left lower extremity, UTI, Rule out osteomyelitis coccygeal region as per CT report. Plan: * Treatment of multiple medical conditions as per internal medicine. * I would not recommend high-dose steroids at this time, as her weakness is likely related to some febrile illness, unmasking old MS lesions. Corticosteroids can disseminate infection. * Patient's lymphocyte counts are now increased to 0.7. May resume Tecfidera. Recommendation is to hold Tecfidera if absolute lymphocyte counts are persistently less than 500. * Neurology coverage not available on the weekend.
[2019-01-13 15:01] VITALS: BMI 42.7
[2019-01-13] MEDS ORDERED: VANCOMYCIN IV PER PHARMACY 1 EACH MISC MISCELLANE PRN (16:10)
--- NOTE | 2019-01-13 16:40 | PN ---
PROGRESS NOTE DATE OF SERVICE: 01/13/2019. REASON FOR FOLLOWUP: Sepsis, source likely UTI and left lower extremity cellulitis. INTERVAL HISTORY: The patient is currently afebrile. Patient is more awake and alert. She is breathing comfortably. The patient denies having any chest pain or shortness of breath or cough. No nausea, vomiting. No abdominal pain. Chaves catheter has been changed. Left leg swelling and redness slightly decreased. PHYSICAL EXAMINATION: Blood pressure 114/75 with a pulse of 84, temperature 98.3. She is 94% on room air. General description is a middle aged female lying in bed in no distress. Respiratory system: Unlabored breathing. Clear to auscultation anteriorly. Heart S1, S2. Regular rate and rhythm. ABDOMEN: Soft, no tenderness. Left leg redness has slightly decreased. Examination of the sacral wound is currently healed with no swelling. No redness or any drainage. LABS: Hemoglobin 11.2, white count 9.2. 31, urine culture currently pending. DIAGNOSTIC IMPRESSION AND PLAN: 1. Patient admitted to the hospital with sepsis, source likely catheter associated urinary tract infection and left lower extremity cellulitis. Patient covered with cefepime and vancomycin as the patient left leg still having significant swelling and redness and to cover for possible MRSA in this patient group home resident. 2. The patient with abnormal CT with question of osteomyelitis. I did review the CT with Dr. Currie and there has been no change in the sacral area from a CT scan that was done in 2018. Patient sacral wound is currently closed and no evidence of any drainage or cellulitis. Recommend local wound care only with Aquacel silver dressing to keep the area off the pressure and clinically doubt osteomyelitis. MMODL / IJN: [id number] /
[2019-01-13] MEDS ORDERED: VANCOMYCIN 2,000 MG in SODIUM CHLORIDE 0.9% 500 ML 500 ML IVPB ONE (17:00)
[2019-01-13] MEDS: FLUTICASONE 50MCG/SPRAY NASAL 16GM EA NOSTRIL SCH (21:20)
[2019-01-13] MEDS: CHOLECALCIFEROL 1,000 UNIT TAB PO SCH (21:20)
[2019-01-13] MEDS: PRAVASTATIN SODIUM 40 MG TAB PO SCH (21:21)
[2019-01-14] MEDS: SODIUM CHLORIDE 0.9% 1,000 ML IV SCH ×3 (05:35→21:55)
[2019-01-14] MEDS: VANCOMYCIN 1,750 MG in SODIUM CHLORIDE 0.9% 500 ML 500 ML IVPB SCH ×2 (05:36→18:05)
[2019-01-14] MEDS: HYDROcodone/APAP 5-325MG 1 EACH TAB PO PRN ×3 (06:48→19:11)
[2019-01-14] MEDS: THIAMINE 100 MG TAB PO SCH (09:34)
[2019-01-14] MEDS: GABAPENTIN 300 MG CAP PO SCH ×3 (09:34→18:06)
[2019-01-14] MEDS: POTASSIUM CHLORIDE ER 20 MEQ TAB.ER PO SCH ×2 (09:34→21:51)
[2019-01-14] MEDS: HEPARIN SODIUM,PORCINE 5,000 UNIT/ML 1 ML VIAL SQ SCH ×3 (09:35→23:53)
[2019-01-14] MEDS: CYANOCOBALAMIN 500 MCG TAB PO SCH (09:35)
[2019-01-14] MEDS: PANTOPRAZOLE 40 MG TABLET PO SCH (09:35)
[2019-01-14] MEDS: FOLIC ACID 1 MG TAB PO SCH (09:35)
[2019-01-14] MEDS: MULTIVITAMINS, THERA 1 EACH TAB PO SCH (09:35)
[2019-01-14] MEDS: LEVOTHYROXINE 50 MCG TAB PO SCH (09:35)
[2019-01-14] MEDS: BACLOFEN 10 MG TAB PO SCH ×3 (09:35→18:06)
[2019-01-14] MEDS: LIDOCAINE 4% CREAM 5 GM TUBE TOPICAL SCH ×4 (09:40→21:52)
[2019-01-14] MEDS: NYSTATIN 100,000 UNIT/GM POWD 15 GM TOPICAL SCH ×2 (09:40→21:51)
[2019-01-14] MEDS: CEFEPIME 2 GM in SODIUM CHLORIDE 0.9% 100 ML IVPB SCH ×2 (12:49→23:49)
--- NOTE | 2019-01-14 17:13 | PN ---
PROGRESS NOTE DATE OF SERVICE: 01/14/2019 REASON FOR FOLLOWUP: Fever, source likely urinary tract infection and left lower extremity cellulitis. INTERVAL HISTORY: The patient is currently afebrile. The patient has been breathing comfortably. The patient denies having any chest pain. No shortness of breath. No nausea or vomiting. No abdominal pain. Left leg swelling and drainage has decreased. PHYSICAL EXAMINATION: On examination, her blood pressure is 95/59, pulse of 75 temperature is 97.7, she is 96% on room air. General description is a middle-aged female, lying in bed in no distress. Respiratory system: Unlabored breathing, clear to auscultation anteriorly. Heart S1, S2. Regular rate and rhythm. Positive left leg swelling, slightly decreased. LABS: No new labs have been obtained today. Blood and urine cultures currently pending. DIAGNOSTIC IMPRESSION AND PLAN: Patient admitted to the hospital with fever and mental status changes. Source is likely left lower extremity cellulitis plus-minus a catheter associated urinary tract infection. The patient's Chaves has been changed. Currently covered with vancomycin and cefepime, to continue while awaiting for the culture to finalize and continue supportive care. MMODL / IJN: [id number] /
[2019-01-14] MEDS: CHOLECALCIFEROL 1,000 UNIT TAB PO SCH (21:51)
[2019-01-14] MEDS: PRAVASTATIN SODIUM 40 MG TAB PO SCH (21:51)
[2019-01-14] MEDS: FLUTICASONE 50MCG/SPRAY NASAL 16GM EA NOSTRIL SCH (21:51)
--- NOTE | 2019-01-14 23:18 | P.PN ---
Subjective Progress Note Date: 01/13/19 Principal diagnosis: Left lower extremity cellulitis Acute urinary tract infection Patient is a 48-year-old female with a known history of multiple sclerosis currently bedbound, history of E. coli infection of sacral decub ulcers, chronic Chaves catheter due to neurogenic bladder, chronic kidney disease with history of hemodialysis, morbid obesity was initially presents to outside hospital facility with the complaints of right upper extremities and the increasing weakness. P atient does have chronically left upper extremities weakness. Patient was also febrile with T-max 10 3F on admission. Patient also having generalized weakness. Patient does have extensive history of sacral decub ulcers and history of ESBL E. coli previously. Patient otherwise denied any complaints of chest pain or shortness of breath. No cough or sputum production. Patient does have abdominal pain. No complaints of worsening back pain. Patient was also having an bilateral lower extremities edema is also some redness noted. Patient does have a chronic Chaves catheter for the past 3 years. Denied any complaints of nausea vomiting or diarrhea constipation. No hematemesis or melena. Denied any blurry vision no facial droop or slurring of the speech. Patient was transferred to [facility] for further evaluation. Chest x-ray showed cardiomegaly, saturation of left perihilar infiltrate. Correlate for atypical pulmonary edema. Pneumonia could be considered. Follow-up exams can be performed as clinically indicated. CT of abdomen pelvis showed nonobstructing bilateral renal stones. There is soft tissue abnormality extending to the sacrum the left lamina may be loaded. Osteomyelitis should be considered. Coccyx appears absent. CT head showed mild subcortical white matter changes left frontal lobe. Disease of indeterminate age. Microvascular ischemic changes favored. Consider MRI for additional workup. Urinalysis showed her blood and large leukocyte esterase with pyuria WBC 13.3 Neurology and infectious disease 01/13/2019 Patient is awake alert and oriented. Denied any complaints of right upper activity weakness is completely resolved. Neurology recommends no need for IV steroids. Continue with current medications for MS.. Otherwise patient is still having left lower extremity redness but is improving. Currently on cefepime. ID is on board. No fever no chills. Tolerating oral diet. No chest pain or shortness of breath. Current medications reviewed. Objective - Vital Signs Vital signs: Vital Signs Temp 99.1 F 01/13/19 05:57 Pulse 93 01/13/19 05:57 Resp 16 01/13/19 05:57 BP 109/64 01/13/19 05:57 Pulse Ox 95 01/13/19 05:57 Intake & Output 01/12/19 01/13/19 01/13/19 18:59 06:59 18:59 Intake Total 1889 Balance 1889 Weight 116.573 kg Intake: Intake, IV Titration 1300 Amount Cefepime 2 gm In Sodium 100 Chloride 0.9% 100 ml @ 200 mls/hr IVPB Q12H YANIRA Rx#:[id number] Sodium Chloride 0.9% 1, 1200 000 ml @ 100 mls/hr IV . Q10H YANIRA Rx#:[id number] Oral 590 Other: Voiding Method Indwelling Catheter Indwelling Catheter # Voids 500 - Exam PHYSICAL EXAMINATION: Patient is lying in the bed comfortably, no acute distress, awake alert and oriented.. HEENT: Normocephalic. Neck is supple. Pupils reactive. Nostrils clear. Oral cavity is moist. Ears reveal no drainage. Neck reveals no JVD, carotid bruits, or thyromegaly. CHEST EXAMINATION: Trachea is central. Symmetrical expansion. Lung jennings clear to auscultation and percussion. CARDIAC: Normal S1, S2 with no gallops. No murmurs ABDOMEN: Soft. Bowel sounds normal. No organomegaly. No abdominal bruits. Excellent sacral wound seems to be healing well. Extremities: Bilateral trace edema. No clubbing or cyanosis. Left leg swelling and redness and warmth present. Neurologically awake, alert, oriented x3. Patient does have paraplegia. Skin: No rash or skin lesions. Psychiatric: Coperative. Nonsuicidal Musculoskeletal: No joint swelling or deformity. - Labs CBC & Chem 7: 01/13/19 05:37 01/13/19 05:37 Labs: Abnormal Lab Results - Last 24 Hours (Table) 01/12/19 01/12/19 01/12/19 Range/Units 10:50 10:50 10:50 WBC 13.3 H (3.8-10.6) k/uL MCHC 30.5 L (31.0-37.0) g/dL Neutrophils # 12.4 H (1.3-7.7) k/uL Lymphocytes # 0.4 L (1.0-4.8) k/uL ESR (0-20) mm/hr BUN 25 H (7-17) mg/dL Glucose 128 H (74-99) mg/dL Calcium 10.3 H (8.4-10.2) mg/dL Creatine Kinase <20 L (30-135) U/L C-Reactive Protein (<10.0) mg/L Urine Appearance Turbid H (Clear) Urine pH 8.5 H (5.0-8.0) Urine Protein 1+ H (Negative) Ur Leukocyte Esterase Large H (Negative) Urine WBC 12 H (0-5) /hpf Amorphous Sediment Many H (None) /hpf Urine Bacteria Occasional H (None) /hpf Urine Mucus Rare H (None) /hpf 01/13/19 01/13/19 Range/Units 05:37 05:37 WBC (3.8-10.6) k/uL MCHC (31.0-37.0) g/dL Neutrophils # 8.0 H (1.3-7.7) k/uL Lymphocytes # 0.7 L (1.0-4.8) k/uL ESR 31 H (0-20) mm/hr BUN 19 H (7-17) mg/dL Glucose 103 H (74-99) mg/dL Calcium (8.4-10.2) mg/dL Creatine Kinase (30-135) U/L C-Reactive Protein 204.6 H (<10.0) mg/L Urine Appearance (Clear) Urine pH (5.0-8.0) Urine Protein (Negative) Ur Leukocyte Esterase (Negative) Urine WBC (0-5) /hpf Amorphous Sediment (None) /hpf Urine Bacteria (None) /hpf Urine Mucus (None) /hpf Microbiology - Last 24 Hours (Table) 01/12/19 10:50 Urine Culture - Preliminary Urine,Voided Assessment and Plan Assessment: Acute urinary tract infection. Left lower extremity cellulitis Sepsis secondary to above. Patient does have fever, tachycardia, leukocytosis Right upper extremity weakness. Resolving now. Unlikely MS exacerbation. Patient was seen by neurology. Chronic left upper extremity weakness History MS.paraplegia currently bedridden History of sacral decub ulcers. Rule out osteomyelitis as per CT abdomen and pelvis Dehydration and volume depletion. Mild hypercalcemia History of ESBL MRSA and VRE infections Chronic low back pain Hypothyroidism Identification is anemia History of multiple urinary tract infections Neurogenic bladder. Chronic indwelling Chaves catheter History of acute kidney injury. Was on hemodialysis previously. DVT prophylaxis with heparin subcu Plan: patient be continued on antibiotics the form of cefepime. ID and neurology is following.. Continue the home medications and follow closely. Follow-up culture reports. Continue the IV hydration. Further recommendations based on the clinical course. Prognosis is guarded this time. Time with Patient: Greater than 30
--- NOTE | 2019-01-14 23:19 | P.PN ---
Subjective Progress Note Date: 01/14/19 Principal diagnosis: Left lower extremity cellulitis Acute urinary tract infection Patient is a 48-year-old female with a known history of multiple sclerosis currently bedbound, history of E. coli infection of sacral decub ulcers, chronic Chaves catheter due to neurogenic bladder, chronic kidney disease with history of hemodialysis, morbid obesity was initially presents to outside hospital facility with the complaints of right upper extremities and the increasing weakness. P atient does have chronically left upper extremities weakness. Patient was also febrile with T-max 10 3F on admission. Patient also having generalized weakness. Patient does have extensive history of sacral decub ulcers and history of ESBL E. coli previously. Patient otherwise denied any complaints of chest pain or shortness of breath. No cough or sputum production. Patient does have abdominal pain. No complaints of worsening back pain. Patient was also having an bilateral lower extremities edema is also some redness noted. Patient does have a chronic Chaves catheter for the past 3 years. Denied any complaints of nausea vomiting or diarrhea constipation. No hematemesis or melena. Denied any blurry vision no facial droop or slurring of the speech. Patient was transferred to [facility] for further evaluation. Chest x-ray showed cardiomegaly, saturation of left perihilar infiltrate. Correlate for atypical pulmonary edema. Pneumonia could be considered. Follow-up exams can be performed as clinically indicated. CT of abdomen pelvis showed nonobstructing bilateral renal stones. There is soft tissue abnormality extending to the sacrum the left lamina may be loaded. Osteomyelitis should be considered. Coccyx appears absent. CT head showed mild subcortical white matter changes left frontal lobe. Disease of indeterminate age. Microvascular ischemic changes favored. Consider MRI for additional workup. Urinalysis showed her blood and large leukocyte esterase with pyuria WBC 13.3 Neurology and infectious disease 01/13/2019 Patient is awake alert and oriented. Denied any complaints of right upper activity weakness is completely resolved. Neurology recommends no need for IV steroids. Continue with current medications for MS.. Otherwise patient is still having left lower extremity redness but is improving. Currently on cefepime. ID is on board. No fever no chills. Tolerating oral diet. No chest pain or shortness of breath. 01/14/2019 Patient denied any complaints of chest pain or shortness of breath. No fever no chills. No other acute overnight issues. Tolerating oral diet. No complaints of right upper extremity weakness. No other symptoms or weakness. Patient is being continued on antibiotics for left lower action to cellulitis. Redness is improving. Urine culture showed polymicrobial. No headache or dizziness. Current medications reviewed. Objective - Vital Signs Vital signs: Vital Signs Temp 97.7 F 01/14/19 11:42 Pulse 75 01/14/19 11:42 Resp 18 01/14/19 11:42 BP 95/59 01/14/19 11:42 Pulse Ox 96 01/14/19 11:42 Intake & Output 01/13/19 01/14/19 01/14/19 18:59 06:59 18:59 Intake Total 800 1100 700 Output Total 550 800 Balance 250 300 700 Weight 116.573 kg Intake: Intake, IV Titration 800 1100 100 Amount Cefepime 2 gm In Sodium 100 100 100 Chloride 0.9% 100 ml @ 200 mls/hr IVPB Q12H YANIRA Rx#:[id number] Sodium Chloride 0.9% 1, 700 1000 000 ml @ 100 mls/hr IV . Q10H YANIRA Rx#:[id number] Oral 600 Output: Urine 550 800 Uretheral (Chaves) 800 Other: Voiding Method Indwelling Catheter Indwelling Catheter Indwelling Catheter - Exam PHYSICAL EXAMINATION: Patient is lying in the bed comfortably, no acute distress, awake alert and oriented.. HEENT: Normocephalic. Neck is supple. Pupils reactive. Nostrils clear. Oral cavity is moist. Ears reveal no drainage. Neck reveals no JVD, carotid bruits, or thyromegaly. CHEST EXAMINATION: Trachea is central. Symmetrical expansion. Lung jennings clear to auscultation and percussion. CARDIAC: Normal S1, S2 with no gallops. No murmurs ABDOMEN: Soft. Bowel sounds normal. No organomegaly. No abdominal bruits. Excellent sacral wound seems to be healing well. Extremities: Bilateral trace edema. No clubbing or cyanosis. Left leg swelling and redness and warmth present. Neurologically awake, alert, oriented x3. Patient does have paraplegia. Skin: No rash or skin lesions. Psychiatric: Coperative. Nonsuicidal Musculoskeletal: No joint swelling or deformity. - Labs CBC & Chem 7: 01/13/19 05:37 01/13/19 05:37 Labs: Microbiology - Last 24 Hours (Table) 10/24/19 10:50 Blood Culture - Preliminary Blood No Growth after 48 hours Assessment and Plan Assessment: Acute urinary tract infection. Left lower extremity cellulitis Sepsis secondary to above. Patient does have fever, tachycardia, leukocytosis Right upper extremity weakness. Resolving now. Unlikely MS exacerbation. Patient was seen by neurology. Chronic left upper extremity weakness History MS.paraplegia currently bedridden History of sacral decub ulcers. Rule out osteomyelitis as per CT abdomen and pelvis Dehydration and volume depletion. Mild hypercalcemia History of ESBL MRSA and VRE infections Chronic low back pain Hypothyroidism Identification is anemia History of multiple urinary tract infections Neurogenic bladder. Chronic indwelling Chaves catheter History of acute kidney injury. Was on hemodialysis previously. DVT prophylaxis with heparin subcu Plan: patient be continued on antibiotics the form of cefepime. ID and neurology is following.. Continue the home medications and follow closely. Follow-up culture reports. Continue the IV hydration. Further recommendations based on the clinical course. Prognosis is guarded this time. Time with Patient: Greater than 30
[2019-01-15] MEDS: SODIUM CHLORIDE 0.9% 1,000 ML IV SCH ×3 (04:33→21:29)
[2019-01-15] MEDS: VANCOMYCIN 1,750 MG in SODIUM CHLORIDE 0.9% 500 ML 500 ML IVPB SCH (06:22)
[2019-01-15 06:26] LABS: African American GFR (CKD) >90 (>60 ml/min/1.73 sqM)
[2019-01-15] MEDS: THIAMINE 100 MG TAB PO SCH (07:26)
[2019-01-15] MEDS: CYANOCOBALAMIN 500 MCG TAB PO SCH (07:26)
[2019-01-15] MEDS: PANTOPRAZOLE 40 MG TABLET PO SCH (07:26)
[2019-01-15] MEDS: MULTIVITAMINS, THERA 1 EACH TAB PO SCH (07:26)
[2019-01-15] MEDS: BACLOFEN 10 MG TAB PO SCH ×3 (07:26→17:46)
[2019-01-15] MEDS: POTASSIUM CHLORIDE ER 20 MEQ TAB.ER PO SCH ×2 (07:26→20:36)
[2019-01-15] MEDS: HEPARIN SODIUM,PORCINE 5,000 UNIT/ML 1 ML VIAL SQ SCH ×2 (07:26→17:46)
[2019-01-15] MEDS: FOLIC ACID 1 MG TAB PO SCH (07:26)
[2019-01-15] MEDS: GABAPENTIN 300 MG CAP PO SCH ×3 (07:26→17:46)
[2019-01-15] MEDS: LEVOTHYROXINE 50 MCG TAB PO SCH (07:26)
[2019-01-15] MEDS: LIDOCAINE 4% CREAM 5 GM TUBE TOPICAL SCH ×4 (07:27→21:28)
[2019-01-15] MEDS: NYSTATIN 100,000 UNIT/GM POWD 15 GM TOPICAL SCH ×2 (07:27→20:37)
[2019-01-15] MEDS: HYDROcodone/APAP 5-325MG 1 EACH TAB PO PRN ×3 (07:33→21:28)
[2019-01-15] MEDS ORDERED: diphenhydrAMINE 50 MG/ML 1 ML VIAL IVP PRN (10:21)
[2019-01-15] MEDS: CEFEPIME 2 GM in SODIUM CHLORIDE 0.9% 100 ML IVPB SCH (13:55)
--- NOTE | 2019-01-15 16:17 | PN ---
PROGRESS NOTE DATE OF SERVICE: 01/15/2019. REASON FOR FOLLOW UP: 1. Left lower extremity cellulitis. 2. Sacral wound. 3. Question of UTI. INTERVAL HISTORY: The patient is currently afebrile. Patient is breathing comfortably. The patient denies having any chest pain. No shortness of breath or cough. No nausea, vomiting or abdominal pain. Left leg redness has improved. PHYSICAL EXAMINATION: Blood pressure is 110/57 with a pulse of 66. Temperature 97.8. She is 100% on room air. General description is a middle-aged female lying in bed in no distress. Respiratory system: Unlabored breathing, clear to auscultation anteriorly. Heart S1, S2. Regular rate and rhythm. Abdomen is soft. No tenderness. Left leg redness has much improved, on the left upper extremity, but not on the rest of the body. LABS: No new labs have been obtained today. Blood and urine cultures have been negative. DIAGNOSTIC IMPRESSION AND PLAN: Patient admitted to the hospital with fever, sepsis, source is likely left lower extremity cellulitis. Urine culture has been negative. Plan at this time is to switch over to IV cefazolin. Patient continues to improve. Finished therapy with the oral Keflex. Monitor clinical course closely. MMODL / IJN: [id number] /
[2019-01-15] MEDS ORDERED: VANCOMYCIN TROUGH DUE 1 EACH MISC MISCELLANE ONE (17:00)
[2019-01-15] MEDS: CHOLECALCIFEROL 1,000 UNIT TAB PO SCH (20:36)
[2019-01-15] MEDS: FLUTICASONE 50MCG/SPRAY NASAL 16GM EA NOSTRIL SCH (20:37)
[2019-01-15] MEDS: PRAVASTATIN SODIUM 40 MG TAB PO SCH (21:28)
--- NOTE | 2019-01-15 23:26 | P.PN ---
Subjective Progress Note Date: 01/15/19 Principal diagnosis: Left lower extremity cellulitis Acute urinary tract infection Patient is a 48-year-old female with a known history of multiple sclerosis currently bedbound, history of E. coli infection of sacral decub ulcers, chronic Chaves catheter due to neurogenic bladder, chronic kidney disease with history of hemodialysis, morbid obesity was initially presents to outside hospital facility with the complaints of right upper extremities and the increasing weakness. P atient does have chronically left upper extremities weakness. Patient was also febrile with T-max 10 3F on admission. Patient also having generalized weakness. Patient does have extensive history of sacral decub ulcers and history of ESBL E. coli previously. Patient otherwise denied any complaints of chest pain or shortness of breath. No cough or sputum production. Patient does have abdominal pain. No complaints of worsening back pain. Patient was also having an bilateral lower extremities edema is also some redness noted. Patient does have a chronic Chaves catheter for the past 3 years. Denied any complaints of nausea vomiting or diarrhea constipation. No hematemesis or melena. Denied any blurry vision no facial droop or slurring of the speech. Patient was transferred to [facility] for further evaluation. Chest x-ray showed cardiomegaly, saturation of left perihilar infiltrate. Correlate for atypical pulmonary edema. Pneumonia could be considered. Follow-up exams can be performed as clinically indicated. CT of abdomen pelvis showed nonobstructing bilateral renal stones. There is soft tissue abnormality extending to the sacrum the left lamina may be loaded. Osteomyelitis should be considered. Coccyx appears absent. CT head showed mild subcortical white matter changes left frontal lobe. Disease of indeterminate age. Microvascular ischemic changes favored. Consider MRI for additional workup. Urinalysis showed her blood and large leukocyte esterase with pyuria WBC 13.3 Neurology and infectious disease 01/13/2019 Patient is awake alert and oriented. Denied any complaints of right upper activity weakness is completely resolved. Neurology recommends no need for IV steroids. Continue with current medications for MS.. Otherwise patient is still having left lower extremity redness but is improving. Currently on cefepime. ID is on board. No fever no chills. Tolerating oral diet. No chest pain or shortness of breath. 01/14/2019 Patient denied any complaints of chest pain or shortness of breath. No fever no chills. No other acute overnight issues. Tolerating oral diet. No complaints of right upper extremity weakness. No other symptoms or weakness. Patient is being continued on antibiotics for left lower action to cellulitis. Redness is improving. Urine culture showed polymicrobial. No headache or dizziness. 01/15/2019 Patient denied any complaints of chest pain or shortness of breath. No complaints of right upper extremity weakness anymore. Left lower extremity cellulitis is improving. Patient is also complaining of redness over the left upper extremity likely due to thrombophlebitis. IV line was replaced. Continue to monitor. Patient has been afebrile. No arm swelling. Anticipate discharge back to rehab with more clinical improvement during next 24-48 hours. Current medications reviewed. Objective - Vital Signs Vital signs: Vital Signs Temp 97.8 F 01/15/19 11:36 Pulse 66 01/15/19 11:36 Resp 16 01/15/19 11:36 BP 110/57 01/15/19 11:36 Pulse Ox 100 01/15/19 11:36 Intake & Output 01/14/19 01/15/19 01/15/19 18:59 06:59 18:59 Intake Total 700 590 800 Output Total 625 1500 2450 Balance 75 -910 -1650 Intake: Intake, IV Titration 100 800 Amount Cefepime 2 gm In Sodium 100 Chloride 0.9% 100 ml @ 200 mls/hr IVPB Q12H YANIRA Rx#:[id number] Sodium Chloride 0.9% 1, 800 000 ml @ 100 mls/hr IV . Q10H YANIRA Rx#:[id number] Oral 600 590 Output: Urine 625 1500 2450 Uretheral (Chaves) 1500 2450 Other: Voiding Method Indwelling Catheter Indwelling Catheter Indwelling Catheter # Bowel Movements 1 - Exam PHYSICAL EXAMINATION: Patient is lying in the bed comfortably, no acute distress, awake alert and oriented.. HEENT: Normocephalic. Neck is supple. Pupils reactive. Nostrils clear. Oral cavity is moist. Ears reveal no drainage. Neck reveals no JVD, carotid bruits, or thyromegaly. CHEST EXAMINATION: Trachea is central. Symmetrical expansion. Lung jennings clear to auscultation and percussion. CARDIAC: Normal S1, S2 with no gallops. No murmurs ABDOMEN: Soft. Bowel sounds normal. No organomegaly. No abdominal bruits. Excellent sacral wound seems to be healing well. Extremities: Bilateral trace edema. No clubbing or cyanosis. Left leg swelling and redness and warmth present. Neurologically awake, alert, oriented x3. Patient does have paraplegia. Skin: No rash or skin lesions. Psychiatric: Coperative. Nonsuicidal Musculoskeletal: No joint swelling or deformity. - Labs CBC & Chem 7: 01/13/19 05:37 01/15/19 05:54 Labs: Microbiology - Last 24 Hours (Table) 01/12/19 10:50 Blood Culture - Preliminary Blood No Growth after 72 hours 01/12/19 10:50 Urine Culture - Final Urine,Voided Assessment and Plan Assessment: Acute urinary tract infection. Urine culture showed polymicrobial specimen Left lower extremity cellulitis Sepsis secondary to above. Patient does have fever, tachycardia, leukocytosis Right upper extremity weakness. Resolving now. Unlikely MS exacerbation. Patient was seen by neurology. Chronic left upper extremity weakness History MS.paraplegia currently bedridden History of sacral decub ulcers. Rule out osteomyelitis as per CT abdomen and pelvis Dehydration and volume depletion. Mild hypercalcemia History of ESBL MRSA and VRE infections Chronic low back pain Hypothyroidism Identification is anemia History of multiple urinary tract infections Neurogenic bladder. Chronic indwelling Chaves catheter History of acute kidney injury. Was on hemodialysis previously. DVT prophylaxis with heparin subcu Plan: patient be continued on antibiotics the form of cefepime. ID and neurology is following.. Continue the home medications and follow closely. Follow-up culture reports. Continue the IV hydration. Further recommendations based on the clinical course. Prognosis is guarded this time. Time with Patient: Greater than 30
[2019-01-16] MEDS: HEPARIN SODIUM,PORCINE 5,000 UNIT/ML 1 ML VIAL SQ SCH ×3 (00:05→17:07)
[2019-01-16 07:31] LABS: Basophils % (A) 1 %; Eosinophils # (A) 0.1 k/uL (0-0.7); Eosinophils % (A) 3 %; HCT 37.6 % (34.0-46.0); HGB 12.2 gm/dL (11.4-16.0); Lymphocytes # (A) 0.8 k/uL (1.0-4.8); Lymphocytes % (A) 17 %; MCH 29.5 pg (25.0-35.0); MCHC 32.5 g/dL (31.0-37.0); MCV 90.8 fL (80.0-100.0); Mean Platelet Volume 6.1; Monocytes # (A) 0.2 k/uL (0-1.0); Monocytes % (A) 4 %; Neutrophils # (A) 3.2 k/uL (1.3-7.7); Neutrophils % (A) 72 %; Platelet Count 296 k/uL (150-450); RBC 4.14 m/uL (3.80-5.40); RDW 14.6 % (11.5-15.5); WBC 4.5 k/uL (3.8-10.6)
[2019-01-16 07:44] LABS: Calcium 9.2 mg/dL (8.4-10.2); Potassium 4.4 mmol/L (3.5-5.1)
[2019-01-16] MEDS: HYDROcodone/APAP 5-325MG 1 EACH TAB PO PRN ×2 (08:44→14:49)
[2019-01-16] MEDS: LEVOTHYROXINE 50 MCG TAB PO SCH (08:44)
[2019-01-16] MEDS: POTASSIUM CHLORIDE ER 20 MEQ TAB.ER PO SCH (08:44)
[2019-01-16] MEDS: GABAPENTIN 300 MG CAP PO SCH ×2 (08:45→14:03)
[2019-01-16] MEDS: PANTOPRAZOLE 40 MG TABLET PO SCH (08:45)
[2019-01-16] MEDS: CYANOCOBALAMIN 500 MCG TAB PO SCH (08:46)
[2019-01-16] MEDS: BACLOFEN 10 MG TAB PO SCH ×2 (08:46→14:03)
[2019-01-16] MEDS: FOLIC ACID 1 MG TAB PO SCH (08:46)
[2019-01-16] MEDS: MULTIVITAMINS, THERA 1 EACH TAB PO SCH (08:46)
[2019-01-16] MEDS: SODIUM CHLORIDE 0.9% 1,000 ML IV SCH (08:48)
[2019-01-16] MEDS: THIAMINE 100 MG TAB PO SCH (08:48)
[2019-01-16] MEDS: LIDOCAINE 4% CREAM 5 GM TUBE TOPICAL SCH ×2 (08:52→14:01)
[2019-01-16] MEDS: NYSTATIN 100,000 UNIT/GM POWD 15 GM TOPICAL SCH (08:52)
[2019-01-16 11:42] VITALS: BP 110/57; PULSE 66; RESP 16; TEMP 97.5
--- NOTE | 2019-01-16 11:52 | P.DS ---
Providers Date of admission: 01/12/19 13:59 Attending physician: Mily Cronin Consults: 01/12/19 14:01 Consult Physician Urgent Consulting Provider: Bobo Jones Consult Reason/Comments: sepsis, osteomyelitis, uti Do you want consulting provider notified?: Yes 01/12/19 14:03 Consult Physician Urgent Consulting Provider: Jeffrey gAuiar Consult Reason/Comments: multiple sclerosis, worsening u/e weakness Do you want consulting provider notified?: Yes Primary care physician: [facility] Course: Final diagnosis Acute UTI polymicrobial opal related to chronic indwelling Chaves catheter Left lower legs with the cellulitis improved Sepsis secondary to above Right upper extremity weakness improving. Unlikely MS exacerbation. Chronic left upper extremity weakness. History of MS paraplegia currently bedridden History of decubitus ulcers Dehydration with volume depletion Mild hypercalcemia History of ESBL MRSA VRE infections Chronic low back pain DJD Hypothyroidism Anemia of chronic disease. History of multiple UTIs Neurogenic bladder on interleukin chronic chronic Chaves catheter History acute kidney injury DVT prophylaxis Full code Discharge disposition Patient be discharged in stable condition with guarded prognosis and ECF total time taken is 35 minutes History of present illness This 48-year-old woman with a past medical history multiple medical problems was admitted with acute UTI related to Chaves catheter and as well as left lower extremity cellulitis with sepsis. Patient was treated with broad-spectrum IV antibiotics. Patient improved significantly. Dr. jones from infectious disease saw the patient. Patient be discharged in a stable condition with guarded prognosis back to ECF. On exam neurology unchanged. cardio system S1-S2 normal respiration. Normal to auscultation. skin as mentioned earlier Please refer to the medication reconciliation sheet for further information. To be followed by ECF closely. Patient Condition at Discharge: Serious Plan - Discharge Summary Discharge Rx Participant: No New Discharge Prescriptions: New Baclofen [Lioresal] 10 mg PO TID@0700,1300,1900 #10 tab Continue Baclofen [Lioresal] 10 mg PO TID@0700,1300,1900 Bisacodyl [Dulcolax] 10 mg RECTAL DAILY PRN PRN Reason: Constipation Multivitamins, Thera [Multivitamin (formulary)] 1 tab PO DAILY@0700 Omeprazole [PriLOSEC] 20 mg PO DAILY Acetaminophen Tab [Tylenol] 650 mg PO Q6HR PRN PRN Reason: Pain Ondansetron [Zofran] 4 mg PO Q8HR PRN PRN Reason: Nausea Folic Acid 1 mg PO DAILY@0700 Levothyroxine Sodium [Synthroid] 50 mcg PO DAILY@0700 Lidocaine 4% Cream [Lmx 4] 1 applic TOPICAL QID Pro-Stat Awc 30 ml PO BID Thiamine [Vitamin B-1] 100 mg PO DAILY@0700 Benzocaine 20 % Gel [Orajel] 1 applic MM QID PRN PRN Reason: TOOTH PAIN Cholecalciferol [Vitamin D3 (25 Mcg = 1000 Iu)] 5,000 unit PO HS Pravastatin Sodium [Pravachol] 40 mg PO HS tab Ferrous Sulfate [Iron (65 MG Elemental)] 325 mg PO BID Dimethyl Fumarate [Tecfidera] 240 mg PO BID Inter Dry 1 applic TOPICAL DAILY PRN PRN Reason: OPEN WOUNDS Miconazole Powder 1 applic TOPICAL BID Aspirin EC [Ecotrin Low Dose] 81 mg PO DAILY Cyanocobalamin [Vitamin B-12] 500 mcg PO DAILY Fluticasone Nasal [place] [Flonase Nasal [place]] 2 spr EA NOSTRIL HS Potassium Chloride ER [K-Dur 20] 20 meq PO BID Spironolactone [Aldactone] 25 mg PO DAILY Torsemide [Demadex] 80 mg PO DAILY Gabapentin [Neurontin] 300 mg PO TID@0700,1300,1900 #20 cap HYDROcodone/APAP 5-325MG [[place] 5-325] 1 tab PO Q6H PRN #12 tab PRN Reason: Pain Discharge Medication List Baclofen [Lioresal] 10 mg PO TID@0700,1300,1900 11/17/13 [History] Bisacodyl [Dulcolax] 10 mg RECTAL DAILY PRN 04/23/16 [History] Acetaminophen Tab [Tylenol] 650 mg PO Q6HR PRN 05/17/16 [History] Multivitamins, Thera [Multivitamin (formulary)] 1 tab PO DAILY@0700 05/17/16 [History] Omeprazole [PriLOSEC] 20 mg PO DAILY 05/17/16 [History] Ondansetron [Zofran] 4 mg PO Q8HR PRN 06/26/16 [History] Folic Acid 1 mg PO DAILY@0700 08/22/16 [History] Levothyroxine Sodium [Synthroid] 50 mcg PO DAILY@0700 08/22/16 [History] Lidocaine 4% Cream [Lmx 4] 1 applic TOPICAL QID 08/22/16 [History] Pro-Stat Awc 30 ml PO BID 08/22/16 [History] Thiamine [Vitamin B-1] 100 mg PO DAILY@0700 08/22/16 [History] Benzocaine 20 % Gel [Orajel] 1 applic MM QID PRN 08/27/17 [History] Cholecalciferol [Vitamin D3 (25 Mcg = 1000 Iu)] 5,000 unit PO HS 08/27/17 [History] Pravastatin Sodium [Pravachol] 40 mg PO HS tab 09/01/17 [Rx] Dimethyl Fumarate [Tecfidera] 240 mg PO BID 11/03/17 [History] Ferrous Sulfate [Iron (65 MG Elemental)] 325 mg PO BID 11/03/17 [History] Aspirin EC [Ecotrin Low Dose] 81 mg PO DAILY 01/12/19 [History] Cyanocobalamin [Vitamin B-12] 500 mcg PO DAILY 01/12/19 [History] Fluticasone Nasal [place] [Flonase Nasal [place]] 2 spr EA NOSTRIL HS 01/12/19 [History] Inter Dry 1 applic TOPICAL DAILY PRN 01/12/19 [History] Miconazole Powder 1 applic TOPICAL BID 01/12/19 [History] Potassium Chloride ER [K-Dur 20] 20 meq PO BID 01/12/19 [History] Spironolactone [Aldactone] 25 mg PO DAILY 01/12/19 [History] Torsemide [Demadex] 80 mg PO DAILY 01/12/19 [History] Baclofen [Lioresal] 10 mg PO TID@0700,1300,1900 #10 tab 01/16/19 [Rx] Gabapentin [Neurontin] 300 mg PO TID@0700,1300,1900 #20 cap 01/16/19 [Rx] HYDROcodone/APAP 5-325MG [[place] 5-325] 1 tab PO Q6H PRN #12 tab 01/16/19 [Rx] Follow up Appointment(s)/Referral(s): Chace Mojica MD [Primary Care Provider] - 1-2 days
--- NOTE | 2019-01-16 14:04 | PN ---
PROGRESS NOTE DATE OF SERVICE: 01/16/2019 REASON FOR FOLLOWUP: 1. Left lower extremity cellulitis. 2. Sacral wound. INTERVAL HISTORY: The patient is currently afebrile. Patient has been breathing comfortably. Denies having any chest pain or shortness of breath. No cough, no nausea, no vomiting. Left flank tenderness has resolved. PHYSICAL EXAMINATION: Blood pressure 110/57, pulse of 66. Temperature 98.5, she is 99% on room air. General description is a middle-aged female, lying in bed in no distress. RESPIRATORY SYSTEM: Unlabored breathing, clear to auscultation anteriorly. HEART: S1, S2. Regular rate and rhythm. ABDOMEN: Soft, no tenderness. EXTREMITIES: Left leg swelling has improved. Examination of sacral wound currently with no swelling, no redness or any drainage. LABS: Hemoglobin is 12.1, white count 4.5. BUN of 26, creatinine 0.89. DIAGNOSTIC IMPRESSION AND PLAN: 1. Patient admitted to the hospital with sepsis. Source is likely left lower extremity cellulitis, most likely streptococcal disease. The patient showed clinical improvement on IV cefazolin, will be switched over to oral Keflex 500 mg p.o. q.6 hours for another 10 days. 2. Sacral wound, currently no evidence of any cellulitis or osteomyelitis. Local wound care with Aquacel Silver dressing. [facility] 1 [facility]. MMODL / IJN: [id number] /
== END 2019-01-16 17:05 | DRG 698 ==
LOC: EC 10:38 → 3NMEDONC 13:59
PROVIDERS: ADMIT Internal Medicine; ATTEND Internal Medicine
DX: T83.518A Infection and inflammatory reaction due to other urinary catheter, initial encounter (principal); A41.9 Sepsis, unspecified organism; N39.0 Urinary tract infection, site not specified; G82.20 Paraplegia, unspecified; L03.116 Cellulitis of left lower limb; Z68.41 Body mass index [BMI] 40.0-44.9, adult; N17.9 Acute kidney failure, unspecified; D63.8 Anemia in other chronic diseases classified elsewhere; E03.9 Hypothyroidism, unspecified; E78.5 Hyperlipidemia, unspecified; E86.0 Dehydration; G35 Multiple sclerosis; G89.29 Other chronic pain; I80.9 Phlebitis and thrombophlebitis of unspecified site; L89.150 Pressure ulcer of sacral region, unstageable; M19.90 Unspecified osteoarthritis, unspecified site; N18.9 Chronic kidney disease, unspecified; N20.0 Calculus of kidney; N31.9 Neuromuscular dysfunction of bladder, unspecified; Y84.6 Urinary catheterization as the cause of abnormal reaction of the patient, or of later complication, without mention of misadventure at the time of the procedure; Z74.01 Bed confinement status; Z79.82 Long term (current) use of aspirin; Z79.890 Hormone replacement therapy; Z79.899 Other long term (current) drug therapy; Z82.49 Family history of ischemic heart disease and other diseases of the circulatory system; Z83.3 Family history of diabetes mellitus; Z86.19 Personal history of other infectious and parasitic diseases; Z87.440 Personal history of urinary (tract) infections; Z99.3 Dependence on wheelchair; Z87.01 Personal history of pneumonia (recurrent); M54.5 Low back pain; E66.01 Morbid (severe) obesity due to excess calories; Z86.718 Personal history of other venous thrombosis and embolism
CPT/HCPCS: 36415; 70450; 71046; 72126; 74177; 80048; 80053; 81001; 82550; 82565; 83605; 83735; 85025; 85610; 85652; 85730; 86140; 87040; 87086; 93005; 96365; 99285

== ENCOUNTER → 2019-05-17 | Outpatient (CLI) | payer OTHER ==
--- NOTE | 2019-05-17 13:34 | MR ---
EXAMINATION TYPE: MR lumbar spine wo con DATE OF EXAM: 05/17/2019 1:14 PM COMPARISON: NONE HISTORY: Low back pain Multiplanar, MultiSpin echo imaging of the lumbar spine was performed. L1-L2: Moderate disc desiccation noted. Mild posterior disc bulge. No herniation of protrusion identi fied. No evidence for central stenosis or foraminal encroachment. L2-L3: Moderate disc desiccation noted. Mild posterior disc bulge. No herniation of protrusion identi fied. No evidence for central stenosis or foraminal encroachment. L3-L4: Moderate disc desiccation noted. Mild posterior disc bulge. No herniation of protrusion identi fied. No evidence for central stenosis or foraminal encroachment. L4-L5: Moderate disc desiccation noted. Mild posterior disc bulge. No herniation of protrusion identi fied. No evidence for central stenosis or foraminal encroachment. L5-S1: Moderate disc desiccation noted. Mild posterior disc bulge. No herniation of protrusion identi fied facet joint arthropathy with bilateral foraminal encroachment. Lumbar segments are intact. No paraspinal masses are identified. Conus medullaris has a normal appe arance. IMPRESSION: 1. Multilevel degenerative disc disease with disc bulging as noted above.
== END | disposition home or self-care (01) ==
LOC: RADMRIMAIN 12:24
PROVIDERS: ATTEND Nurse Practitioner Acute Care
DX: M51.26 Other intervertebral disc displacement, lumbar region (principal); M51.36 Other intervertebral disc degeneration, lumbar region
CPT/HCPCS: 72148

== ENCOUNTER 2019-06-05 18:13 | Inpatient (IN) | payer OTHER ==
[2019-06-05] MEDS ORDERED: SODIUM CHLORIDE 0.9% 1,000 ML IV STA ×2 (18:47)
[2019-06-05] MEDS ORDERED: ACETAMINOPHEN TAB 500 MG TAB PO STA (18:47)
[2019-06-05] MEDS ORDERED: SODIUM CHLORIDE 0.9% 500 ML 500 ML IV STA (18:47)
--- NOTE | 2019-06-05 18:52 | ED ---
Fever HPI - General Chief Complaint: Fever Stated Complaint: Sepsis Time Seen by Provider: 06/05/19 18:19 Source: patient, EMS, RN notes reviewed, old records reviewed Mode of arrival: EMS Limitations: physical limitation - History of Present Illness Initial Comments: This is a 41-year-old female DF for evaluation she presents today for evaluation regards to not feeling well fevers worried about sepsis indwelling [place] and has known urinary tract infection history of severe illness and bacteremia. No recent travel history or sick contacts. Patient denying any significant pain or symptoms. Patient sent DF for weakness fever fatigue and known urinary tract infection. History of same patient suffers with vesicles or nursing MD Complaint: fever, weakness -: days(s) Temperature Source: oral Context: sick contacts, recent antibiotic use Associated Symptoms: chills, myalgias, nausea Treatments Prior to Arrival: none - Related Data Home Medications Medication Instructions Recorded Confirmed Acetaminophen Tab [Tylenol] 650 mg PO Q6HR PRN 05/17/16 06/05/19 Folic Acid 1 mg PO DAILY@0700 08/22/16 06/05/19 Levothyroxine Sodium [Synthroid] 50 mcg PO DAILY@0700 08/22/16 06/05/19 Pro-Stat Awc 30 ml PO BID 08/22/16 06/05/19 Thiamine [Vitamin B-1] 100 mg PO DAILY@0700 08/22/16 06/05/19 Dimethyl Fumarate [Tecfidera] 240 mg PO BID 11/03/17 06/05/19 Ferrous Sulfate [Iron (65 MG 325 mg PO BID 11/03/17 06/05/19 Elemental)] Aspirin EC [Ecotrin Low Dose] 81 mg PO DAILY 01/12/19 06/05/19 Cyanocobalamin [Vitamin B-12] 500 mcg PO DAILY@0700 01/12/19 06/05/19 Fluticasone Nasal [place] [Flonase 2 spr EA NOSTRIL HS 01/12/19 06/05/19 Nasal [place]] Potassium Chloride ER [K-Dur 20] 20 meq PO BID 01/12/19 06/05/19 Spironolactone [Aldactone] 25 mg PO DAILY 01/12/19 06/05/19 Torsemide [Demadex] 80 mg PO DAILY 01/12/19 06/05/19 Baclofen [Lioresal] 20 mg PO TID@0700,1300,1900 06/05/19 06/05/19 Cholecalciferol (Vitamin D3) 125 mcg PO DAILY@0700 06/05/19 06/05/19 [Vitamin D3] Hydrophilic Cream [Triad Cream] 1 applic TOPICAL HS 06/05/19 06/05/19 Lansoprazole [Prevacid] 15 mg PO DAILY 06/05/19 06/05/19 Promethazine HCl 12.5 mg PO Q6H PRN 06/05/19 06/05/19 Previous Rx's Medication Instructions Recorded Pravastatin Sodium [Pravachol] 40 mg PO HS tab 09/01/17 Gabapentin [Neurontin] 300 mg PO TID@0700,1300,1900 #20 01/16/19 cap HYDROcodone/APAP 5-325MG [[place] 1 tab PO Q6H PRN #12 tab 01/16/19 5-325] Allergies Allergy/AdvReac Type Severity Reaction Status Date / Time cinnamon Allergy Rash/Hives Verified 06/05/19 18:55 Review of Systems ROS Statement: Those systems with pertinent positive or pertinent negative responses have been documented in the HPI. ROS Other: All systems not noted in ROS Statement are negative. Past Medical History Past Medical History: Dialysis, Hyperlipidemia, Musculoskeletal Disorder, Neurologic Disorder, Pneumonia, Renal Disease Additional Past Medical History / Comment(s): Multiple sclerosis stage IV-mostly wheelchair bound but pt states recently physical therapy got her to stand briefly-L side weaker than right, past renal failure with hemodialysis-last time was July 2016, sacral decub, sacral osteomylitis, neurogenic bladder with indwelling [place], UTIs, past sepsis, iron deficiency anemia. History of Any Multi-Drug Resistant Organisms: ESBL, MRSA, VRE Date of last positivie culture/infection: 05/22/16 MRSA; 05/18/16 VRE,ESBL 08/27/17 MDRO Source:: , ESBL 08/27/17 URINE, MRSA BLOOD Past Surgical History: No Surgical Hx Reported Additional Past Surgical History / Comment(s): LP, debridement decubitus sacral ulcer, hemodialysis cath since removed, picc lines-none present. 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 Past Psychological History: No Psychological Hx Reported Smoking Status: Never smoker - Past Family History Father History Unknown: Yes Additional Family Medical History / Comment(s): PTS DAD LIVED IN [place]- SHE'S NOT SURE WHAT HE FROM. HE HAD HYPOTENSION. Mother Family Medical History: Coronary Artery Disease (CAD), Diabetes Mellitus, Hyperlipidemia, Hypertension Additional Family Medical History / Comment(s): CARDIAC STENTS General Exam Limitations: physical limitation General appearance: alert, in no apparent distress Head exam: Present: atraumatic, normocephalic, normal inspection Eye exam: Present: normal appearance, PERRL, EOMI. Absent: scleral icterus, conjunctival injection, periorbital swelling ENT exam: Present: normal exam, mucous membranes dry Neck exam: Present: normal inspection. Absent: tenderness, meningismus, lymphadenopathy Respiratory exam: Present: normal lung sounds bilaterally. Absent: respiratory distress, wheezes, rales, rhonchi, stridor Cardiovascular Exam: Present: normal rhythm, tachycardia, normal heart sounds. Absent: systolic murmur, diastolic murmur, rubs, gallop, clicks GI/Abdominal exam: Present: soft, normal bowel sounds. Absent: distended, tenderness, guarding, rebound, rigid Extremities exam: Present: normal inspection, full ROM, normal capillary refill. Absent: tenderness, pedal edema, joint swelling, calf tenderness Back exam: Present: normal inspection Neurological exam: Present: alert, oriented X3, CN II-XII intact Psychiatric exam: Present: normal affect, normal mood Skin exam: Present: warm, dry, intact, normal color. Absent: rash Course Vital Signs 06/05/19 06/05/19 06/05/19 18:25 19:15 20:16 Temperature 100.5 F H Pulse Rate 109 H 131 H 129 H Respiratory 18 Rate Blood Pressure 116/76 O2 Sat by Pulse 100 Oximetry 06/05/19 20:24 Temperature Pulse Rate 125 H Respiratory 16 Rate Blood Pressure 117/73 O2 Sat by Pulse 100 Oximetry - Reevaluation(s) Reevaluation #1: 06/05/19 20:32 Medical records reviewed including recent microbiology Reevaluation #2: 06/05/19 20:32 Patient symptoms improved with hydration fever control - Consultations Consultation #1: spoke w LORENZO horta for admission Medical Decision Making - Medical Decision Making 49 female DF for evaluation presents today for evaluation regards to fever in known urinary tract infection failure of outpatient treatment UTI history of sepsis and bacteremia placed on significant antibiotics and will be admitted - Lab Data Result diagrams: 06/05/19 18:40 06/05/19 19:41 Lab Results 06/05/19 06/05/19 06/05/19 Range/Units 18:40 18:40 18:40 WBC 14.9 H (3.8-10.6) k/uL RBC 5.22 (3.80-5.40) m/uL Hgb 14.6 (11.4-16.0) gm/dL Hct 44.4 (34.0-46.0) % MCV 85.1 (80.0-100.0) fL MCH 28.0 (25.0-35.0) pg MCHC 32.9 (31.0-37.0) g/dL RDW 14.7 (11.5-15.5) % Plt Count 301 (150-450) k/uL Neutrophils % 92 % Lymphocytes % 4 % Monocytes % 3 % Eosinophils % 0 % Basophils % 0 % Neutrophils # 13.7 H (1.3-7.7) k/uL Lymphocytes # 0.5 L (1.0-4.8) k/uL Monocytes # 0.5 (0-1.0) k/uL Eosinophils # 0.0 (0-0.7) k/uL Basophils # 0.0 (0-0.2) k/uL Sodium (137-145) mmol/L Potassium (3.5-5.1) mmol/L Chloride (98-107) mmol/L Carbon Dioxide (22-30) mmol/L Anion Gap mmol/L BUN (7-17) mg/dL Creatinine (0.52-1.04) mg/dL Est GFR (CKD-EPI)AfAm (>60 ml/min/1.73 sqM) Est GFR (CKD-EPI)NonAf (>60 ml/min/1.73 sqM) Glucose (74-99) mg/dL Plasma Lactic Acid Armando 1.7 (0.7-2.0) mmol/L Calcium (8.4-10.2) mg/dL Phosphorus (2.5-4.5) mg/dL Magnesium (1.6-2.3) mg/dL Total Bilirubin (0.2-1.3) mg/dL AST (14-36) U/L ALT (4-34) U/L Alkaline Phosphatase (38-126) U/L Total Protein (6.3-8.2) g/dL Albumin (3.5-5.0) g/dL Urine Color Yellow Urine Appearance Cloudy H (Clear) Urine pH 7.5 (5.0-8.0) Ur Specific [place] 1.013 (1.001-1.035) Urine Protein 1+ H (Negative) Urine Glucose (UA) Negative (Negative) Urine Ketones Negative (Negative) Urine Blood Moderate H (Negative) Urine Nitrite Positive H (Negative) Urine Bilirubin Negative (Negative) Urine Urobilinogen <2.0 (<2.0) mg/dL Ur Leukocyte Esterase Large H (Negative) Urine RBC 25 H (0-5) /hpf Urine WBC 100 H (0-5) /hpf Ur Squamous Epith Cells 1 (0-4) /hpf Amorphous Sediment Rare H (None) /hpf Urine Bacteria Moderate H (None) /hpf Hyaline Casts 4 H (0-2) /lpf Urine Mucus Rare H (None) /hpf Influenza Type A RNA (Not Detectd) Influenza Type B (PCR) (Not Detectd) 06/05/19 06/05/19 Range/Units 18:40 19:41 WBC (3.8-10.6) k/uL RBC (3.80-5.40) m/uL Hgb (11.4-16.0) gm/dL Hct (34.0-46.0) % MCV (80.0-100.0) fL MCH (25.0-35.0) pg MCHC (31.0-37.0) g/dL RDW (11.5-15.5) % Plt Count (150-450) k/uL Neutrophils % % Lymphocytes % % Monocytes % % Eosinophils % % Basophils % % Neutrophils # (1.3-7.7) k/uL Lymphocytes # (1.0-4.8) k/uL Monocytes # (0-1.0) k/uL Eosinophils # (0-0.7) k/uL Basophils # (0-0.2) k/uL Sodium 138 (137-145) mmol/L Potassium 5.5 H (3.5-5.1) mmol/L Chloride 97 L (98-107) mmol/L Carbon Dioxide 27 (22-30) mmol/L Anion Gap 14 mmol/L BUN 37 H (7-17) mg/dL Creatinine 1.02 (0.52-1.04) mg/dL Est GFR (CKD-EPI)AfAm 76 (>60 ml/min/1.73 sqM) Est GFR (CKD-EPI)NonAf 66 (>60 ml/min/1.73 sqM) Glucose 126 H (74-99) mg/dL Plasma Lactic Acid [place] (0.7-2.0) mmol/L Calcium 10.2 (8.4-10.2) mg/dL Phosphorus 3.2 (2.5-4.5) mg/dL Magnesium 1.9 (1.6-2.3) mg/dL Total Bilirubin 1.0 (0.2-1.3) mg/dL AST 25 (14-36) U/L ALT 19 (4-34) U/L Alkaline Phosphatase 134 H (38-126) U/L Total Protein 7.9 (6.3-8.2) g/dL Albumin 5.0 (3.5-5.0) g/dL Urine Color Urine Appearance (Clear) Urine pH (5.0-8.0) Ur Specific [place] (1.001-1.035) Urine Protein (Negative) Urine Glucose (UA) (Negative) Urine Ketones (Negative) Urine Blood (Negative) Urine Nitrite (Negative) Urine Bilirubin (Negative) Urine Urobilinogen (<2.0) mg/dL Ur Leukocyte Esterase (Negative) Urine RBC (0-5) /hpf Urine WBC (0-5) /hpf Ur Squamous Epith Cells (0-4) /hpf Amorphous Sediment (None) /hpf Urine Bacteria (None) /hpf Hyaline Casts (0-2) /lpf Urine Mucus (None) /hpf Influenza Type A RNA Not Detected (Not Detectd) Influenza Type B (PCR) Not Detected (Not Detectd) - EKG Data -: EKG Interpreted by Me (EKG shows sinus tachycardia 134, IN 166, QRS 80, QTC 406) - Radiology Data Radiology results: report reviewed (Chest x-ray is negative for acute disease), image reviewed Disposition Clinical Impression: Multiple sclerosis, Urinary tract infection, Weakness, Leukocytosis, Bilateral lower leg cellulitis Disposition: ADMITTED IP TO THIS HOSP Condition: Fair Is patient prescribed a controlled substance at d/c from ED?: No Referrals: Chace Mojica MD [Primary Care Provider] - 1-2 days
[2019-06-05 19:03] LABS: Basophils % (A) 0 %; Eosinophils % (A) 0 %; HCT 44.4 % (34.0-46.0); HGB 14.6 gm/dL (11.4-16.0); Lymphocytes # (A) 0.5 k/uL (1.0-4.8); Lymphocytes % (A) 4 %; MCHC 32.9 g/dL (31.0-37.0); MCV 85.1 fL (80.0-100.0); Monocytes # (A) 0.5 k/uL (0-1.0); Monocytes % (A) 3 %; Neutrophils # (A) 13.7 k/uL (1.3-7.7); Neutrophils % (A) 92 %; Platelet Count 301 k/uL (150-450); RBC 5.22 m/uL (3.80-5.40); RDW 14.7 % (11.5-15.5); WBC 14.9 k/uL (3.8-10.6)
--- NOTE | 2019-06-05 19:18 | XR ---
EXAMINATION TYPE: XR chest 2V DATE OF EXAM: 06/05/2019 COMPARISON: 01/12/2019 HISTORY: Altered mental status. Fever TECHNIQUE: FINDINGS: There is poor inspiration. There is pulmonary vascular congestion. Bony thorax is intact. IMPRESSION: Poor inspiration and pulmonary vascular congestion improved compared to last exam. Mild h eart failure is possible.
[2019-06-05 19:19] LABS: Amorphous Sediment,Urine Rare /hpf; Appearance,Urine Cloudy (Clear); Bacteria,Urine Moderate /hpf; Bilirubin,Urine Negative (Negative); Blood,Urine Moderate (Negative); Color,Urine Yellow; Glucose,Urine (UA) Negative (Negative); Hyaline Casts,Urine 4 /lpf (0-2); Ketones,Urine Negative (Negative); Leukocyte Esterase,Urine Large (Negative); Mucus,Urine Rare /hpf; Nitrite,Urine Positive (Negative); PH, Urine 7.5 (5.0-8.0); Protein,Urine 1+ (Negative); RBC,Urine 25 /hpf (0-5); Specific Gravity,Urine 1.013 (1.001-1.035); Squamous Epithelial Cell,Urine 1 /hpf (0-4); Urobilinogen,Urine <2.0 mg/dL (<2.0); WBC,Urine 100 /hpf (0-5)
[2019-06-05] MEDS ORDERED: VANCOMYCIN IV PER PHARMACY 1 EACH MISC MISCELLANE PRN (19:59)
[2019-06-05 20:11] LABS: Calcium 10.2 mg/dL (8.4-10.2); Magnesium 1.9 mg/dL (1.6-2.3); Phosphorus 3.2 mg/dL (2.5-4.5); Potassium 5.5 mmol/L (3.5-5.1); Total Protein 7.9 g/dL (6.3-8.2)
[2019-06-05] MEDS ORDERED: VANCOMYCIN 1,750 MG in SODIUM CHLORIDE 0.9% 500 ML 500 ML IVPB ONE (20:15)
[2019-06-05] MEDS ORDERED: SODIUM CHLORIDE 0.9% 500 ML 500 ML IV SCH (20:30)
[2019-06-06] MEDS: PANTOPRAZOLE 40 MG/10 ML VIAL IV SCH (08:33)
[2019-06-06] MEDS: ENOXAPARIN 40 MG/0.4 ML SYRINGE SQ SCH (08:33)
[2019-06-06] MEDS ORDERED: VANCOMYCIN 2,000 MG in SODIUM CHLORIDE 0.9% 500 ML 500 ML IVPB SCH (12:00)
[2019-06-06] MEDS: ERTAPENEM 1 GM in SODIUM CHLORIDE 0.9% 50 ML IVPB SCH (13:13)
[2019-06-06] MEDS ORDERED: PROMETHAZINE 25 MG TAB PO PRN (15:26)
[2019-06-06] MEDS ORDERED: ACETAMINOPHEN TAB 325 MG TAB PO PRN (15:26)
[2019-06-06] MEDS ORDERED: LORazepam 2 MG/ML INJ IV PRN (15:39)
[2019-06-06] MEDS ORDERED: HYDROmorphone 0.5 MG/0.5 ML SYRINGE IVP PRN (15:39)
[2019-06-06] MEDS: HYDROcodone/APAP 5-325MG 1 EACH TAB PO PRN ×2 (16:33→22:36)
[2019-06-06] MEDS: FUROSEMIDE 10 MG/ML 4 ML VIAL IV SCH (16:33)
--- NOTE | 2019-06-06 17:28 | HP ---
HISTORY AND PHYSICAL DATE OF SERVICE: 06/06/2019 CHIEF COMPLAINTS: Fever and change in mental status. HISTORY OF PRESENT ILLNESS: This 49-year-old woman with a past medical history of multiple medical problems, including history of hyperlipidemia, history of DJD, history of renal disease, hemodialysis, multiple sclerosis, stage IV, history of sacral decubitus, ESBL, MRSA, VRE, being followed by Dr. Mojica in [facility], has been for more than one year. The patient is wheelchair-bound. The patient has an indwelling Ch[place] catheter. The patient currently the patient has significant multiple sclerosis, but the patient was suspected to have sepsis and UTI with fever. The patient was taken to [facility] and admitted for further evaluation and treatment. Currently the patient is unable to give a coherent history; most of the history is taken from my discussion with staff and review of the chart at this time. PAST MEDICAL HISTORY: 1. History of hemodialysis. 2. History of renal failure. 3. History of hyperlipidemia. 4. History of DJD. 5. History of pneumonia. 6. History of renal disease. 7. History of ESBL, MRSA, VRE. 8. [facility] resident. HOME MEDICATIONS: 1. Demadex 80 mg p.o. daily. 2. Vitamin B1 100 mg p.o. daily. 3. Aldactone 25 mg daily. 4. Promethazine 12.5 mg q.6 p.r.n. 5. ProStat 30 mL p.o. b.i.d. 6. Pravachol 40 mg at bedtime. 7. K-Dur 20 mEq p.o. b.i.d. 8. Synthroid 50 mcg p.o. daily. 9. Prevacid 15 mg p.o. daily. 10.Triad cream 1 application at bedtime. 11.[place] 5 mg q.6 p.r.n. 12.Neurontin 300 mg p.o. t.i.d. 13.Folic acid 1 mg p.o. daily. 14.Flonase 2 sprays at bedtime. 15.Iron sulfate 320 mg p.o. b.i.d. 16.Tecfidera 240 mg p.o. b.i.d. 17.Vitamin B12 500 mcg p.o. daily. 18.Vitamin D3 125 mcg p.o. daily. 19.Lioresal 20 mg p.o. t.i.d. 20.Ecotrin 81 mg p.o. daily. 21.Tylenol 650 q.6 p.r.n. ALLERGIES: CINNA[place]. Family history, social history, review of systems could not be taken because of the patient's baseline mental status. FAMILY HISTORY: History of CAD, diabetes, hypertension per chart. PHYSICAL EXAMINATION: Pulse is 115, blood pressure 111/70, respiration 18, temperature 100.3, pulse ox 93% on room air. HEENT: Conjunctivae normal. Oral mucosa moist. NECK: No jugular venous distention. No carotid bruit. No lymph node enlargement. CARDIOVASCULAR SYSTEM: S1, S2 muffled. RESPIRATORY SYSTEM: Breath sounds diminished at the bases. A few scattered rhonchi and crackles. ABDOMEN: Soft, obese, non-tender. No mass palpable. LEGS: No edema. No swelling. NERVOUS SYSTEM: Higher functions as mentioned earlier. Moves all 4 limbs. Diffusely weak. Contractures also present. LYMPHATICS: No lymph node palpable in neck, axillae or groin. SKIN: No ulcer, rash, bleeding. JOINTS: No active deforming arthropathy. Nervous, diffusely weak and contractures also present. LABS: WBC 14.9, hemoglobin 14.6, sodium 138. Potassium 5.5. UA noted. ASSESSMENT: 1. Acute urinary tract infection with sepsis, possibly present on admission. 2. Change in mental status, acute on chronic metabolic encephalopathy. 3. Increased white count secondary to sepsis. 4. Hyperkalemia, mild. 5. History of renal failure, on hemodialysis. 6. Hyperlipidemia. 7. History of degenerative joint disease. 8. History of multiple sclerosis with contractures and gait dysfunction. 9. History of sacral decubitus and osteomyelitis. 10.Neurologic bladder. 11.History of extended-spectrum beta-lactamase, methicillin-resistant Staphylococcus aeruginosa, vancomycin-resistant Enterococcus. 12.FULL CODE. 13.Obesity with body mass index of 39.9. RECOMMENDATIONS AND DISCUSSION: In this 49-year-old woman who presented with multiple complex medical issues, we will monitor the patient closely, continue the current medications, continue with symptomatic treatment. Otherwise at this time I recommend to continue with broad- spectrum IV antibiotics, cultures. I would also recommend resume the home medications. Monitor closely. The patient had possibly CHF also. Will recommend a 2D echo with Doppler. I would also recommend IV Lasix at this time. Continue to monitor. Further recommendations to follow. See orders. Prognosis guarded. A copy of this dictation is being forwarded to Dr. Mojica, who is following the patient in the ECF. MMODL / IJN: [id number] / MTDD
[2019-06-06] MEDS: BACLOFEN 10 MG TAB PO SCH (19:07)
[2019-06-06] MEDS: GABAPENTIN 300 MG CAP PO SCH (19:07)
[2019-06-06] MEDS: HYDROPHILIC CREAM 180 GM TUBE TOPICAL SCH (20:29)
[2019-06-06] MEDS: POTASSIUM CHLORIDE ER 20 MEQ TAB.ER PO SCH (20:29)
[2019-06-06] MEDS: FLUTICASONE 50MCG/SPRAY NASAL 16GM EA NOSTRIL SCH (20:29)
[2019-06-06] MEDS: FERROUS SULFATE 325 MG TAB PO SCH (20:29)
[2019-06-06] MEDS: PRAVASTATIN SODIUM 40 MG TAB PO SCH (20:30)
[2019-06-06] MEDS: PRO STAT AWC PO SCH (20:43)
--- NOTE | 2019-06-07 00:15 | P.CONS ---
History of Present Illness - Reason for Consult Consult date: 06/06/19 Gram negative bacteremia Requesting physician: Clementine Mc - Chief Complaint Fever x 1 day - History of Present Illness Patient is a 49-year-old female with a past medical history significant for MS in this patient who did have a chronic indwelling [place] catheter for urinary retention patient has been brought into the ER at [facility] outside for evaluation of fever and possible sepsis patient on arrival to the hospital was noticed to be febrile with a temperature of 101.2 F, patient was tachycardic did have elevated white count and a positive UA influenza PCR was negative chest x-ray poor inspiratory effort pulmonary vascular congestion patient did have blood cultures drawn which coming positive with gram-negative bacilli that prompted this infectious disease consultation patient last urine culture and blood culture back in August of last year with ESBL E. coli but not specifically the patient says she does not know why she is here but not specifically for any headache runny nose sore throat the patient also no no chest pain shortness of breath or cough no abdominal pain no diarrhea and is not clear when the Austin catheter was changed last Review of Systems Positive point has been mentioned in HPI rest of the systems are negative Past Medical History Past Medical History: Dialysis, Hyperlipidemia, Musculoskeletal Disorder, Neurologic Disorder, Pneumonia, Renal Disease Additional Past Medical History / Comment(s): Multiple sclerosis stage IV-mostly wheelchair bound but pt states recently physical therapy got her to stand briefl y-L side weaker than right, past renal failure with hemodialysis-last time was July 2016, sacral decub, sacral osteomylitis, neurogenic bladder with indwelling [place], UTIs, past sepsis, iron deficiency anemia. History of Any Multi-Drug Resistant Organisms: ESBL, MRSA, VRE Year Discovered:: 05/22/16 MRSA; 05/18/16 VRE,ESBL 08/27/17 MDRO Source:: , ESBL 08/27/17 URINE, MRSA BLOOD Past Surgical History: No Surgical Hx Reported Additional Past Surgical History / Comment(s): LP, debridement decubitus sacral ulcer, hemodialysis cath since removed, picc lines-none present. Past Anesthesia/Blood Transfusion Reactions: No Reported Reaction Additional Past Anesthesia/Blood Transfusion Reaction / Comm: NEVER HAD ANY GENERAL AA ONLY LOCAL FOR DENTAL WORK. Past Psychological History: No Psychological Hx Reported Additional Psychological History / Comment(s): Pt resides at [facility]. She has been [facility] a [facility]. She states she is mostly wheelchair bound-sit to stand device to chair. She has an IDC. Pt feeds herself. Smoking Status: Never smoker Past Alcohol Use History: None Reported Additional Past Alcohol Use History / Comment(s): Patient is a lifelong nonsmoker. She denies any alcohol abuse. Past Drug Use History: None Reported - Past Family History Father History Unknown: Yes Additional Family Medical History / Comment(s): PTS DAD LIVED IN [place]- SHE'S NOT SURE WHAT HE FROM. HE HAD HYPOTENSION. Mother Family Medical History: Coronary Artery Disease (CAD), Diabetes Mellitus, Hyperlipidemia, Hypertension Additional Family Medical History / Comment(s): CARDIAC STENTS Medications and Allergies Home Medications Medication Instructions Recorded Confirmed Type Acetaminophen Tab [Tylenol] 650 mg PO Q6HR PRN 05/17/16 06/05/19 History Folic Acid 1 mg PO DAILY@0700 08/22/16 06/05/19 History Levothyroxine Sodium [Synthroid] 50 mcg PO DAILY@0700 08/22/16 06/05/19 History Pro-Stat [place]c 30 ml PO BID 08/22/16 06/05/19 History Thiamine [Vitamin B-1] 100 mg PO DAILY@0700 08/22/16 06/05/19 History Pravastatin Sodium [Pravachol] 40 mg PO HS tab 09/01/17 06/05/19 Rx Dimethyl Fumarate [Tecfidera] 240 mg PO BID 11/03/17 06/05/19 History Ferrous Sulfate [Iron (65 MG 325 mg PO BID 11/03/17 06/05/19 History Elemental)] Aspirin EC [Ecotrin Low Dose] 81 mg PO DAILY 01/12/19 06/05/19 History Cyanocobalamin [Vitamin B-12] 500 mcg PO DAILY@0700 01/12/19 06/05/19 History Fluticasone Nasal [place] [Flonase 2 spr EA NOSTRIL HS 01/12/19 06/05/19 History Nasal [place]] Potassium Chloride ER [K-Dur 20] 20 meq PO BID 01/12/19 06/05/19 History Spironolactone [Aldactone] 25 mg PO DAILY 01/12/19 06/05/19 History Torsemide [Demadex] 80 mg PO DAILY 01/12/19 06/05/19 History Gabapentin [Neurontin] 300 mg PO TID@0700,1300,1900 #20 01/16/19 06/05/19 Rx cap HYDROcodone/APAP 5-325MG [[place] 1 tab PO Q6H PRN #12 tab 01/16/19 06/05/19 Rx 5-325] Baclofen [Lioresal] 20 mg PO TID@0700,1300,1900 06/05/19 06/05/19 History Cholecalciferol (Vitamin D3) 125 mcg PO DAILY@0700 06/05/19 06/05/19 History [Vitamin D3] Hydrophilic Cream [Triad Cream] 1 applic TOPICAL HS 06/05/19 06/05/19 History Lansoprazole [Prevacid] 15 mg PO DAILY 06/05/19 06/05/19 History Promethazine HCl 12.5 mg PO Q6H PRN 06/05/19 06/05/19 History Allergies Allergy/AdvReac Type Severity Reaction Status Date / Time cinnamon Allergy Rash/Hives Verified 06/05/19 18:55 Physical Exam Vitals: Vital Signs Temp Pulse Resp BP Pulse Ox 06/06/19 20:32 98.4 F 115 H 18 113/75 100 06/06/19 15:00 98 F 109 H 16 124/80 94 L 06/06/19 08:45 99.0 F 06/06/19 05:48 99.4 F 06/06/19 04:58 100.3 F H 115 H 18 111/72 93 L 06/06/19 01:31 98.5 F Intake and Output 06/06/19 06/06/19 06/07/19 14:59 22:59 06:59 Output Total 400 480 Balance -400 -480 Output: Urine 400 480 Other: Voiding Method Indwelling Catheter Indwelling Catheter GENERAL DESCRIPTION: Middle-aged female lying in bed, no distress. No tachypnea or accessory muscle of respiration use. HEENT: Shows Pallor , no scleral icterus. Oral mucous membrane is dry. NECK: Trachea central, no thyromegaly. LUNGS: Unlabored breathing. Clear to auscultation anteriorly. No wheeze or crackle. HEART: S1, S2, regular rate and rhythm. ABDOMEN: Soft, no tenderness , guarding or rigidity EXTREMITIES: No edema of feet. SKIN: No rash, no masses palpable. NEUROLOGICAL: The patient is awake, alert, oriented x2, mood and affect normal. Results CBC & Chem 7: 06/05/19 18:40 06/05/19 19:41 Labs: Microbiology - Last 24 Hours (Table) 06/05/19 18:40 Urine Culture - Preliminary Urine,Voided Gram Neg Bacilli 06/05/19 19:00 Blood Culture Gram Stain - Preliminary Blood Blood Culture - Preliminary Gram Neg Bacilli 06/05/19 19:00 Blood Culture - Final Blood Assessment and Plan Assessment: patient presented to hospital with sepsis in this patient who did have fever tachycardia elevated white count significantly positive UA source likely urinary tract infection in this patient has been previously colonized and infected with multidrug resistant pathogen such as ESBL E. coli will need to cover for the same until cultures are finalized (1) Urinary tract infection Current Visit: Yes Status: Acute Code(s): N39.0 - URINARY TRACT INFECTION, SITE NOT SPECIFIED SNOMED Code(s): 28803434 (2) Sepsis Current Visit: No Status: Acute Code(s): A41.9 - SEPSIS, UNSPECIFIED [facility] SNOMED Code(s): 98930508 Plan: 1-blood cultures will be repeated to document clearance of bacteremia 2-obtain a CT of abdominal pelvis with oral contrast to rule any other pathology 3-Invanz 1 g IV every 8 daily 4-change [place] catheter and obtain urine culture from new [place] We will follow on clinical condition and cultures to further adjust medication if needed Thank you for this consultation we will follow the patient along with you Time with Patient: Greater than 30
[2019-06-07] MEDS: HYDROcodone/APAP 5-325MG 1 EACH TAB PO PRN (04:50)
[2019-06-07 05:08] VITALS: RESP 16
[2019-06-07] MEDS: IOPAMIDOL CONTRAST (ORAL USE) VIAL PO PRN ×2 (07:08→08:20)
[2019-06-07 08:04] LABS: Basophils % (A) 0 %; Eosinophils # (A) 0.2 k/uL (0-0.7); Eosinophils % (A) 2 %; HGB 12.8 gm/dL (11.4-16.0); Lymphocytes # (A) 0.7 k/uL (1.0-4.8); Lymphocytes % (A) 7 %; MCH 27.9 pg (25.0-35.0); MCHC 32.8 g/dL (31.0-37.0); MCV 85.3 fL (80.0-100.0); Mean Platelet Volume 8.4; Monocytes # (A) 0.3 k/uL (0-1.0); Monocytes % (A) 3 %; Neutrophils # (A) 7.7 k/uL (1.3-7.7); Neutrophils % (A) 84 %; Platelet Count 265 k/uL (150-450); RBC 4.57 m/uL (3.80-5.40); RDW 14.8 % (11.5-15.5); WBC 9.1 k/uL (3.8-10.6)
[2019-06-07 08:17] LABS: Calcium 9.4 mg/dL (8.4-10.2)
[2019-06-07] MEDS ORDERED: LANSOPRAZOLE 15 MG PO SCH (09:00)
--- NOTE | 2019-06-07 09:28 | CT ---
EXAMINATION TYPE: CT abdomen pelvis wo con DATE OF EXAM: 06/07/2019 HISTORY: Sacral ulcer CT DLP: 1369.9 mGycm. Automated Exposure Control for Dose Reduction was Utilized. TECHNIQUE: CT scan of the abdomen and pelvis is performed with oral but without IV contrast. COMPARISON: CT abdomen and pelvis January 12, 2019. CT sacrum May 24, 2016. CT pelvis August 30, 2017 FINDINGS: Within the limitations of a non-contrast study, the following observations are made. Subop timal evaluation of the lung bases and upper abdomen due to overlying upper extremities causing artif act. LUNG BASES: Suboptimal due to overlying upper extremities. Visualized bases grossly clear. LIVER/GB: Gallbladder has distended margins without CT dense intraluminal gallstones or surrounding i nflammatory change. PANCREAS: No significant abnormality is seen. SPLEEN: Spleen size stable and mildly enlarged measuring between 13 to 14 cm long axis on coronal and sagittal images. ADRENALS: No significant abnormality is seen. KIDNEYS: Persistent calculi posteriorly midpole level right kidney axial image 37 with some interval progression, I suspect roughly 3 adjacent calculi measuring up to 8 mm long axis but difficult to dis tinctly separate. No right-sided hydronephrosis. There are roughly 2-3 calculi scattered throughout the left kidney measuring up to 5 mm in size lower pole level coronal image 66. There is interval passage of a 6 mm calculus in the proximal left urete r just past UVJ coronal image 57 causing [id number] left-sided hydronephrosis. Cortical thinning both kidneys consistent with product of chronic medical renal disease. No intralumi nal calculus in the poorly distended bladder. Nondependent air present product of Chaves catheterizati on, Chaves catheter noted. BOWEL: Oral contrast reaches level of proximal transverse colon. There is no suspicious small or larg e bowel dilatation. There is prominence of fecal material in the transverse and left colon along with the sigmoid colon with even more prominent fecal material in the sigmoid rectal colon. GENITAL ORGANS: Anteverted uterus projects to the left of midline. Ovaries noted normal in size. LYMPH NODES: No greater than 1cm abdominal or pelvic lymph nodes are appreciated. OSSEOUS STRUCTURES: Scoliotic curvature positioning. [id number] multilevel spurring in the thor acolumbar spine. Facet arthropathy lower lumbar levels. There is change in the sacrum from CT May 24, [address] August 30, 2017. Lower sacrum/cocc yx are destroyed with1 soft tissue density at this level extending posteriorly to the skin surface. F rom most recent CT January 12, 2019 there is no obvious change in the lobulated soft tissue and sacra l destruction identified axial images 71 through 77. No new fluid collection is seen. No new surround ing fat stranding noted. OTHER: Patient redemonstrates fairly generalized mild to moderate diffuse muscular atrophy. IMPRESSION: 1. Evidence of chronic osteomyelitis and chronic sacral ulcer from infection that occurred between [facility] 2016 and August 30, 2017. Current CT shows no change from January 12, 2019 CT to suggest new bon y or soft tissue infection at this level. I favor chronic ulcerative findings and osteomyelitis. 2. Note is made of new 6 mm calculus in the proximal left ureter causing [id number] left-sided hydronephrosis. 3. Overall nonobstructive bowel gas pattern. There is fairly moderate diffuse colonic fecal stasis wi th more severe rectal fecal stasis or impaction.
[2019-06-07 09:33] LABS: Erythrocyte Sedimentation Rate 36 mm/hr (0-20)
--- NOTE | 2019-06-07 10:54 | CDI ---
Documentation Clarification Form Date: 06/07/2019 10:15:06 AM From: Marcella Santillan RN, CCDS Admit Date: 06/06/2019 11:15:00 AM Patient Name: Rachel Rincon Visit Number: [id number] Discharge Date: ATTENTION: The Clinical Documentation Specialists (CDI) and [facility] Coding Staff appreciate your assistance in clarifying documentation. Please respond to the clarification below the line at the bottom and electronically sign. The CDI & [facility] Coding staff will review the response and follow-up if needed. Please note: Queries are made part of the Legal Health Record. If you have any questions, please contact the author of this message via ITS. Dr. Michael Carlin UTI was documented in the ED clinical impression, and in the H/P. Past medical history documents chronic indwelling Austin catheter for neurogenic bladder. Clarification is requested for cause of the UTI. History/Risk Factors: (Austin POA, Neurogenic bladder, Multiple sclerosis, Sepsis, UTI's Clinical Indicators: 49-year-old female with history of neurogenic bladder and chronic indwelling Austin present to ED on 06/04 with fever, weakness, chills and myalgias. Vital Signs: 116/76 109 18 100.5 100 % RA on 06/04 at 18:25 WBC: 14.9 on 06/04 at 18:40 Urinalysis: Large Leukocyte esterase, Urine Nitrite positive, Urine wbc 100, Urine Hyaline Casts 4 06/04 Urine Culture: Preliminary Gram Negative Bacilli, Final Providencia stuartii 06/04 Blood Culture: Preliminary Gram Negative Bacilli, Final Providencia stuartii Treatment Rocephin 1 gm IV Q 24 hrs Invanz 1 gm IV Q 24hrs Blood cultures/Urine cultures 06/05 Change Austin and urine culture from now Austin (per ID orders) Please document the condition that these clinical indicators signify, whether Present on Admission, and cause if known: UTI with Sepsis -If due to Austin catheter, POA Specify organism, if known Identify location of infection (if known) Bladder, Kidney, Urethra Other, please specify Unable to determine (Last Revision: December 2016) uti is related to austin catheter , present on admission [facility]
[2019-06-07] MEDS: CYANOCOBALAMIN 500 MCG TAB PO SCH (11:26)
[2019-06-07] MEDS: POTASSIUM CHLORIDE ER 20 MEQ TAB.ER PO SCH ×2 (11:26→20:26)
[2019-06-07] MEDS: THIAMINE 100 MG TAB PO SCH (11:26)
[2019-06-07] MEDS: SPIRONOLACTONE 25 MG TAB PO SCH (11:26)
[2019-06-07] MEDS: ASPIRIN 81 MG PO SCH (11:27)
[2019-06-07] MEDS: LEVOTHYROXINE 50 MCG TAB PO SCH (11:27)
[2019-06-07] MEDS: BACLOFEN 10 MG TAB PO SCH ×3 (11:27→17:35)
[2019-06-07] MEDS: GABAPENTIN 300 MG CAP PO SCH ×3 (11:27→17:36)
[2019-06-07] MEDS: CHOLECALCIFEROL 1,000 UNIT TAB PO SCH (11:27)
[2019-06-07] MEDS: ENOXAPARIN 40 MG/0.4 ML SYRINGE SQ SCH ×2 (11:28→11:29)
[2019-06-07] MEDS: FOLIC ACID 1 MG TAB PO SCH (11:28)
[2019-06-07] MEDS: FUROSEMIDE 10 MG/ML 4 ML VIAL IV SCH (11:29)
[2019-06-07] MEDS: PANTOPRAZOLE 40 MG/10 ML VIAL IV SCH (11:29)
[2019-06-07] MEDS: PRO STAT AWC PO SCH ×2 (11:43→20:22)
[2019-06-07] MEDS: FERROUS SULFATE 325 MG TAB PO SCH ×2 (11:51→20:26)
[2019-06-07] MEDS ORDERED: SENNOSIDES 8.6 MG TAB PO PRN (12:49)
--- NOTE | 2019-06-07 12:49 | P.CRDCN ---
History of Present Illness History of present illness: HISTORY OF PRESENTING ILLNESS This is a pleasant 49-year-old female past medical history significant for with multiple sclerosis, dyslipidemia, chronic urinary tract infections, ur inary retention with indwelling Austin catheter in place, chronic decubitus ulcer and is chronically bedbound. 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 We have been asked to see in consultation for heart failure. She was sent to the ER from [facility] secondary to fever and urinary tract infection. She is seen and examined laying flat resting comfortably in bed in no acute distress. She denies chest pain, shortness of breath, PND, orthopnea, dizziness or palpitations. In 2017 she underwent a MELI to rule out infective endocarditis secondary to persistent MRSA bacteremia. MELI revealed impaired LV systolic function with EF 35-40%, no evidence of vegetation, mild MR and mild TR. DIAGNOSTICS EKG reveals sinus tachycardia with heart rate 134. Chest xray poor inspiration and pulmonary vascular congestion improved from previous exam. CT abdomen/pelvis comments on grossly clear lung bases bilaterally. Laboratory reviewed, WBC on admission 14.9, repeat today 9.1, hgb 12.8, plt 265, sodium 139, potassium on admission 5.5 repeat today 4.0, creatinine 1.38, magnesium 1.9, CRP 267 and NTproBNP 826. Current cardiac medications include aspirin 81 mg daily, pravastatin 40 mg at bedtime and Aldactone 25 mg daily. REVIEW OF SYSTEMS At the time of my exam: CONSTITUTIONAL: Denies fever or chills. CARDIOVASCULAR: Denies chest pain, shortness of breath, orthopnea, PND or palpitations. RESPIRATORY: Denies cough. GASTROINTESTINAL: Denies abdominal pain, diarrhea, constipation, nausea or vomiting. MUSCULOSKELETAL: Denies myalgias. NEUROLOGIC: Denies numbness, tingling or weakness. ENDOCRINE: Denies fatigue, weight change, polydipsia or polyurina. GENITOURINARY: Denies burning, hematuria or urgency with micturation. HEMATOLOGIC: Denies history of anemia or bleeding. PHYSICAL EXAMINATION Blood pressure 130/83 heart rate 105 afebrile and maintaining oxygen saturation on . CONSTITUTIONAL: No apparent distress. Obese. HEENT: Head is normocephalic. Pupils are equal, round. Sclerae anicteric. Mucous membranes of the mouth are moist. No JVD. No carotid bruit. CHEST EXAMINATION: Lungs are clear to auscultation. No chest wall tenderness is noted on palpation or with deep breathing. HEART EXAMINATION: Regular rate and rhythm. S1, S2 heard. No murmurs, gallops or rub. ABDOMEN: Soft, nontender. Positive bowel sounds. EXTREMITIES: 2+ peripheral pulses, no lower extremity edema and no calf tenderness. NEUROLOGIC EXAMINATION: Patient is awake, alert and oriented x3. ASSESSMENT Urinary tract infection Leukocytosis Hyperkalemia, resolved History of multiple sclerosis Chronic decuitus ulcer History of systolic heart failure PLAN Clinically she is euvolemic with no evidence of fluid overload. Echocardiogram has been obtained and will be reviewed. Ongoing medical management and treatment of UTI. Thank you kindly for this consultation. Nurse Practitioner note has been reviewed, I agree with a documented findings and plan of care. Patient was seen and examined. Past Medical History Past Medical History: Dialysis, Hyperlipidemia, Musculoskeletal Disorder, Neurologic Disorder, Pneumonia, Renal Disease Additional Past Medical History / Comment(s): Multiple sclerosis stage IV-mostly wheelchair bound but pt states recently physical therapy got her to stand briefly-L side weaker than right, past renal failure with hemodialysis-last time was July 2016, sacral decub, sacral osteomylitis, neurogenic bladder with indwelling austin, UTIs, past sepsis, iron deficiency anemia. History of Any Multi-Drug Resistant Organisms: ESBL, MRSA, VRE Date of last positivie culture/infection: 05/22/16 MRSA; 05/18/16 VRE,ESBL 08/27/17 MDRO Source:: , ESBL 08/27/17 URINE, MRSA BLOOD Past Surgical History: No Surgical Hx Reported Additional Past Surgical History / Comment(s): LP, debridement decubitus sacral ulcer, hemodialysis cath since removed, picc lines-none present. 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 Past Psychological History: No Psychological Hx Reported Additional Psychological History / Comment(s): Pt resides at [facility]. She has been there alittle over a year. She states she is mostly wheelchair bound-sit to stand device to chair. She has an IDC. Pt feeds herself. Smoking Status: Never smoker Past Alcohol Use History: None Reported Additional Past Alcohol Use History / Comment(s): Patient is a lifelong nonsmoker. She denies any alcohol abuse. Past Drug Use History: None Reported - Past Family History Father History Unknown: Yes Additional Family Medical History / Comment(s): PTS DAD LIVED IN [place]- SHE'S NOT SURE WHAT HE FROM. HE HAD HYPOTENSION. Mother Family Medical History: Coronary Artery Disease (CAD), Diabetes Mellitus, Hyperlipidemia, Hypertension Additional Family Medical History / Comment(s): CARDIAC STENTS Medications and Allergies Home Medications Medication Instructions Recorded Confirmed Type Acetaminophen Tab [Tylenol] 650 mg PO Q6HR PRN 05/17/16 06/05/19 History Folic Acid 1 mg PO DAILY@0700 08/22/16 06/05/19 History Levothyroxine Sodium [Synthroid] 50 mcg PO DAILY@0700 08/22/16 06/05/19 History Pro-Stat Awc 30 ml PO BID 08/22/16 06/05/19 History Thiamine [Vitamin B-1] 100 mg PO DAILY@0700 08/22/16 06/05/19 History Pravastatin Sodium [Pravachol] 40 mg PO HS tab 09/01/17 06/05/19 Rx Dimethyl Fumarate [Tecfidera] 240 mg PO BID 11/03/17 06/05/19 History Ferrous Sulfate [Iron (65 MG 325 mg PO BID 11/03/17 06/05/19 History Elemental)] Aspirin EC [Ecotrin Low Dose] 81 mg PO DAILY 01/12/19 06/05/19 History Cyanocobalamin [Vitamin B-12] 500 mcg PO DAILY@0700 01/12/19 06/05/19 History Fluticasone Nasal Kent [Flonase 2 spr EA NOSTRIL HS 01/12/19 06/05/19 History Nasal Kent] Potassium Chloride ER [K-Dur 20] 20 meq PO BID 01/12/19 06/05/19 History Spironolactone [Aldactone] 25 mg PO DAILY 01/12/19 06/05/19 History Torsemide [Demadex] 80 mg PO DAILY 01/12/19 06/05/19 History Gabapentin [Neurontin] 300 mg PO TID@0700,1300,1900 #20 01/16/19 06/05/19 Rx cap HYDROcodone/APAP 5-325MG [Stanley 1 tab PO Q6H PRN #12 tab 01/16/19 06/05/19 Rx 5-325] Baclofen [Lioresal] 20 mg PO TID@0700,1300,1900 06/05/19 06/05/19 History Cholecalciferol (Vitamin D3) 125 mcg PO DAILY@0700 06/05/19 06/05/19 History [Vitamin D3] Hydrophilic Cream [Triad Cream] 1 applic TOPICAL HS 06/05/19 06/05/19 History Lansoprazole [Prevacid] 15 mg PO DAILY 06/05/19 06/05/19 History Promethazine HCl 12.5 mg PO Q6H PRN 06/05/19 06/05/19 History Allergies Allergy/AdvReac Type Severity Reaction Status Date / Time cinnamon Allergy Rash/Hives Verified 06/05/19 18:55 Physical Exam Vitals: Vital Signs Temp Pulse Resp BP Pulse Ox 06/07/19 11:48 98.3 F 105 H 16 130/83 92 L 06/07/19 08:10 105 H 16 06/07/19 05:05 98.3 F 95 16 117/77 92 L 06/06/19 20:32 98.4 F 115 H 18 113/75 100 06/06/19 15:00 98 F 109 H 16 124/80 94 L Intake and Output 06/06/19 06/07/19 06/07/19 22:59 06:59 14:59 Intake Total 590 240 Output Total 480 1300 1780 Balance -380 -075 -7945 Intake: Oral 590 240 Output: Urine 480 1300 1780 Uretheral (Austin) 1300 1300 Other: Voiding Method Indwelling Catheter Indwelling Catheter Indwelling Catheter Results 06/07/19 07:14 06/07/19 07:14 CBC 06/07/19 Range/Units 07:14 WBC 9.1 (3.8-10.6) k/uL RBC 4.57 (3.80-5.40) m/uL Hgb 12.8 (11.4-16.0) gm/dL Hct 39.0 (34.0-46.0) % Plt Count 265 (150-450) k/uL Comprehensive Metabolic Panel 06/07/19 Range/Units 07:14 Sodium 139 (137-145) mmol/L Potassium 4.0 (3.5-5.1) mmol/L Chloride 104 (98-107) mmol/L Carbon Dioxide 23 (22-30) mmol/L BUN 33 H (7-17) mg/dL Creatinine 1.38 H (0.52-1.04) mg/dL Glucose 103 H (74-99) mg/dL Calcium 9.4 (8.4-10.2) mg/dL Current Medications Generic Name Dose Route Start Last Admin Trade Name Freq PRN Reason Stop Dose Admin Acetaminophen 650 mg 06/06/19 15:26 Tylenol Tab PO Q6HR PRN Pain Hydrocodone Bitart/Acetaminophen 1 each 06/06/19 15:26 06/07/19 04:50 Stanley 5-325 PO 1 each Q6H PRN Administration Pain Aspirin 81 mg 06/07/19 09:00 06/07/19 11:27 Aspirin PO 81 mg DAILY [facility] Administration Baclofen 20 mg 06/06/19 19:00 06/07/19 11:27 Lioresal PO 20 mg TID@0700,1300,1900 [facility] Administration Cholecalciferol 5,000 unit 06/07/19 07:00 06/07/19 11:27 Vitamin D3 (25 Mcg = 1000 Iu) PO 5,000 unit DAILY@0700 [facility] Administration Cyanocobalamin 500 mcg 06/07/19 07:00 06/07/19 11:26 Vitamin B-12 PO 500 mcg DAILY@0700 [facility] Administration Enoxaparin Sodium 40 mg 06/06/19 09:00 06/07/19 11:29 Lovenox SQ 40 mg DAILY YANIRA Administration Ferrous Sulfate 325 mg 06/06/19 21:00 06/07/19 11:51 Feosol PO 325 mg BID [facility] Administration Fluticasone Propionate 2 spray 06/06/19 21:00 06/06/19 20:29 Flonase Nasal Kent EA NOSTRIL 2 spray HS [facility] Administration Folic Acid 1 mg 06/07/19 07:00 06/07/19 11:28 Folic Acid PO 1 mg DAILY@0700 [facility] Administration Furosemide 40 mg 06/06/19 15:45 06/07/19 11:29 Lasix IV 40 mg DAILY YANIRA Administration Gabapentin 300 mg 06/06/19 19:00 06/07/19 11:27 Neurontin PO 300 mg TID@0700,1300,1900 [facility] Administration Hydromorphone HCl 0.5 mg 06/06/19 15:39 Dilaudid IVP Q6HR PRN Severe Pain Ertapenem 1 gm/ Sodium 50 mls @ 100 mls/hr 06/06/19 12:00 06/06/19 13:13 Chloride IVPB 100 mls/hr DAILY YANIRA Administration Protocol Ceftriaxone Sodium 1 gm/ 50 mls @ 100 mls/hr 06/06/19 16:00 06/07/19 11:28 Sodium Chloride IVPB 100 mls/hr Q24HR YANIRA Administration Levothyroxine Sodium 50 mcg 06/07/19 07:00 06/07/19 11:27 Synthroid PO 50 mcg DAILY@0700 YANIR[facility] Administration Lorazepam 1 mg 06/06/19 15:39 Ativan IV Q6HR PRN Anxiety Multi-Ingred Cream/Lotion/Oil/Oint 1 applic 06/06/19 21:00 06/06/19 20:29 Triad Cream TOPICAL 1 applic HS YANIRA Administration Non-Formulary Medication 30 ml 06/06/19 21:00 06/07/19 11:43 Pro-Stat Awc PO Not Given BID [facility] Tecfidera (Dimethyl 240 mg 06/06/19 21:00 06/07/19 11:51 Fumarate) 240 Mg PO Not Given BID [facility] Pantoprazole Sodium 40 mg 06/06/19 09:00 06/07/19 11:29 Protonix IV 40 mg DAILY YANIRA Administration Potassium Chloride 20 meq 06/06/19 21:00 06/07/19 11:26 K-Dur 20 PO 20 meq BID YANIRA Administration Pravastatin Sodium 40 mg 06/06/19 21:00 06/06/19 20:30 Pravachol PO 40 mg HS [facility] Administration Promethazine HCl 12.5 mg 06/06/19 15:26 Phenergan PO Q6H PRN Nausea And Vomiting Spironolactone 25 mg 06/07/19 09:00 06/07/19 11:26 Aldactone PO 25 mg DAILY Y[facility]IR[facility] Administration Thiamine HCl 100 mg 06/07/19 07:00 06/07/19 11:26 Vitamin B-1 PO 100 mg DAILY@0700 Y[facility]IR[facility] Administration Intake and Output 06/06/19 06/07/19 06/07/19 22:59 06:59 14:59 Intake Total 590 240 Output Total 480 1300 1780 Balance -480 -236 -9353 Intake: Oral 590 240 Output: Urine 480 1300 1780 Uretheral (Austin) 1300 1300 Other: Voiding Method Indwelling Catheter Indwelling Catheter Indwelling Catheter 06/07/19 07:14 06/07/19 07:14
[2019-06-07] MEDS ORDERED: LACTULOSE 20 GM/30 ML CUP PO ONE (12:50)
--- NOTE | 2019-06-07 12:52 | P.PN ---
Subjective This is a pleasant 41 years old female with past medical history of hyperlipidemia, multiple sclrosis , past renal failure needing hemodialysis and pressure ulcer, neurogenic bladder. Presents with fever. Today patient was lying in bed comfortable, she is fully awake and oriented to time place and person, she knows she is at the Hospital, She can recognize the year acid 2019, and she was able the president, no abdominal pain or dysuria however she has increased frequency and shows chronic low back pain for more than 10 years, no chest pain or dyspnea. Labs showing WBCs down to normal upon 0.1 K, creatinine went up to 1.3, rest of other class are within normal limits. She is hemodynamically stable and blood pressure 1:3083 Currently patient is on Invanz and ceftriaxone, also she is on Lasix 40 mg daily (discontinued) Objective - Vital Signs Vital signs: Vital Signs Temp 98.3 F 06/07/19 11:48 Pulse 105 H 06/07/19 11:48 Resp 16 06/07/19 11:48 BP 130/83 06/07/19 11:48 Pulse Ox 92 L 06/07/19 11:48 Intake & Output 06/06/19 06/07/19 06/07/19 18:59 06:59 18:59 Intake Total 590 240 Output Total 400 1780 1780 Balance -400 -1190 -1540 Intake: Oral 590 240 Output: Urine 400 1780 1780 Uretheral (Chaves) 1300 1300 Other: Voiding Method Indwelling Catheter Indwelling Catheter Indwelling Catheter - Exam GENERAL: The patient is alert and oriented x3, not in any acute distress. Well developed, well nourished. HEENT: Pupils are round and equally reacting to light. EOMI. No scleral icterus. No conjunctival pallor. Normocephalic, atraumatic. No pharyngeal erythema. No thyromegaly. CARDIOVASCULAR: S1 and S2 present. No murmurs, rubs, or gallops. PULMONARY: Chest is clear to auscultation, no wheezing or crackles. ABDOMEN: Soft, nontender, nondistended, normoactive bowel sounds. No palpable organomegaly. -MUSCULOSKELETAL: No joint swelling or deformity. Sacral pressure ulcer with surrounding cellulitis EXTREMITIES: No cyanosis, clubbing, or pedal edema. NEUROLOGICAL: Gross neurological examination did not reveal any focal deficits. SKIN: No rashes. no petechiae. - Labs CBC & Chem 7: 06/07/19 07:14 06/07/19 07:14 Labs: Abnormal Lab Results - Last 24 Hours (Table) 06/07/19 06/07/19 Range/Units 07:14 07:14 Lymphocytes # 0.7 L (1.0-4.8) k/uL ESR 36 H (0-20) mm/hr BUN 33 H (7-17) mg/dL Creatinine 1.38 H (0.52-1.04) mg/dL Glucose 103 H (74-99) mg/dL C-Reactive Protein 267.0 H (<10.0) mg/L Microbiology - Last 24 Hours (Table) 06/05/19 18:40 Urine Culture - Preliminary Urine,Voided Gram Neg Bacilli 06/05/19 19:00 Blood Culture Gram Stain - Preliminary Blood Blood Culture - Preliminary Gram Neg Bacilli 06/05/19 19:00 Blood Culture - Final Blood Assessment and Plan Assessment: Acute complicated UTI Left renal calculus about 6 mm with mild to moderate left sided hydronephrosis Stage III sacral pressure ulcers with evidence of soft tissue infection and osteomyelitis on CAT scan Fecal impaction Hyperlipidemia Past history of renal failure needing hemodialysis Metabolic encephalopathy Osteoarthritis Neurogenic bladder Obesity with BMI of 39.9 Plan: This is a pleasant 49 years old female who presents with UTI, kidney stones and mild to moderate left-sided hydronephrosis. Also pressure ulcer with possible osteomyelitis. Continue with antibiotics as per ID team, stop Lasix and follow- up renal function, follow-up renal function, consult urologist , give laxative Labs and medication were reviewed.. Continue same treatment. Continue with symptomatic treatment. Resume home medication. Monitor lytes and vitals. DVT and GI prophylaxis. Further recommendations of the clinical course of the patient DVT prophylaxis: Subcutaneous Lovenox GI Prophylaxis: Protonix Prognosis is guarded
[2019-06-07] MEDS: ERTAPENEM 1 GM in SODIUM CHLORIDE 0.9% 50 ML IVPB SCH (13:16)
--- NOTE | 2019-06-07 14:03 | ECHOF ---
Referral Reason:chf MEASUREMENTS -------- HEIGHT: 165.1 cm WEIGHT: 108.9 kg BP: 111/72 IVSd: 1.7 cm (0.6 - 1.1) LVIDd: 3.3 cm (3.9 - 5.3) LVPWd: 1.7 cm (0.6 - 1.1) IVSs: 2.0 cm LVIDs: 2.5 cm LVPWs: 1.7 cm LAESV Index (A-L): 23.45 ml/m MV E Kenn: 0.65 m/s MV DecT: 148 ms MV A Kenn: 0.85 m/s MV E/A Ratio: 0.77 RAP: 5.00 mmHg RVSP: 14.10 mmHg FINDINGS -------- Sinus rhythm. This was a technically difficult study with suboptimal apical views. The left ventricular size is normal. There is moderate concentric left ventricular hypertrophy. O verall left ventricular systolic function is low-normal with, an EF between 50 - 55 %. The diastoli c filling pattern is normal for the age of the patient 10.. The RV was not well visualized. Normal LA size by volume 22+/-6 ml/m2. The right atrium was not well visualized. Lumason used Interatrial and interventricular septum intact. There is no evidence of aortic regurgitation. There is no evidence of aortic stenosis. No mitral regurgitation. Mild tricuspid regurgitation present. There is no evidence of pulmonary hypertension. The right v entricular systolic pressure, as measured by Doppler, is 14.10mmHg. There is no pulmonic regurgitation present. The aortic root size is normal. IVC Not well visulized. There is no pericardial effusion. CONCLUSIONS -------- 1. Sinus rhythm. 2. This was a technically difficult study with suboptimal apical views. 3. The left ventricular size is normal. 4. There is moderate concentric left ventricular hypertrophy. 5. Overall left ventricular systolic function is low-normal with, an EF between 50 - 55 %. 6. The diastolic filling pattern is normal for the age of the patient 10.97 7. The RV was not well visualized. 8. Normal LA size by volume 22+/-6 ml/m2. 9. The right atrium was not well visualized. 10. Lumason used 11. Interatrial and interventricular septum intact. 12. There is no evidence of aortic regurgitation. 13. There is no evidence of aortic stenosis. 14. No mitral regurgitation. 15. Mild tricuspid regurgitation present. 16. There is no evidence of pulmonary hypertension. 17. The right ventricular systolic pressure, as measured by Doppler, is 14.10mmHg. 18. There is no pulmonic regurgitation present. 19. The aortic root size is normal. 20. IVC Not well visulized. 21. There is no pericardial effusion. METAL FURNITURE REPAIRER: Radha Dorsey RDCS
[2019-06-07] MEDS: PRAVASTATIN SODIUM 40 MG TAB PO SCH (20:26)
[2019-06-07] MEDS: FLUTICASONE 50MCG/SPRAY NASAL 16GM EA NOSTRIL SCH (20:26)
[2019-06-07] MEDS: HYDROPHILIC CREAM 180 GM TUBE TOPICAL SCH (20:27)
--- NOTE | 2019-06-07 22:16 | PN ---
PROGRESS NOTE DATE OF SERVICE: 06/07/2019 REASON FOR FOLLOWUP: Gram-negative UTI and bacteremia. INTERVAL HISTORY: The patient is currently afebrile. The patient has been breathing comfortably. The patient denies having any chest pain or shortness of breath or cough. No abdominal pain. No nausea, vomiting, abdominal pain or diarrhea. Overall feeling better. PHYSICAL EXAMINATION: Blood pressure 130/83 with a pulse of 105, temperature 98.3. She is 92% on room air. General description is a middle-aged female lying in bed in no distress. RESPIRATORY SYSTEM: Unlabored breathing. Clear to auscultation anteriorly. HEART: S1, S2. Regular rate and rhythm. ABDOMEN: Soft. No tenderness. LABS/IMAGING: White count normalized to 9.1 with a sed rate of 36, creatinine 1.38. CT of abdomen and pelvis with oral contrast did not show any acute pathology except a 6 mm calculus in the left ureter causing moderate left-sided hydronephrosis. DIAGNOSTIC IMPRESSION AND PLAN: Patient with Gram-negative bacteremia. Source is likely complicated UTI in this patient with left-sided hydronephrosis. Patient's antibiotic was adjusted to cefepime 2 grams q.12 hours. May benefit from urology evaluation for the hydronephrosis and continue with supportive care. MMODL / IJN: [id number] /
[2019-06-08 07:48] LABS: Calcium 9.2 mg/dL (8.4-10.2)
[2019-06-08] MEDS: CEFEPIME 2 GM in SODIUM CHLORIDE 0.9% 100 ML IVPB SCH ×2 (07:57→20:33)
[2019-06-08] MEDS: LEVOTHYROXINE 50 MCG TAB PO SCH (07:58)
[2019-06-08 08:09] LABS: Potassium 4.8 mmol/L (3.5-5.1)
[2019-06-08 08:17] LABS: HCT 40.6 % (34.0-46.0); HGB 13.1 gm/dL (11.4-16.0); Hypochromasia Slight; MCH 28.6 pg (25.0-35.0); MCHC 32.2 g/dL (31.0-37.0); MCV 88.6 fL (80.0-100.0); Platelet Count 253 k/uL (150-450); RBC 4.58 m/uL (3.80-5.40); RDW 14.6 % (11.5-15.5); WBC 5.9 k/uL (3.8-10.6)
[2019-06-08 08:54] LABS: Eosinophils # (M) 0.12 k/uL (0-0.7); Lymphocytes # (M) 0.83 k/uL (1.0-4.8); Neutrophils # (M) 4.66 k/uL (1.3-7.7); Neutrophils % (M) 79 %; Nucleated Red Blood Cells 0 /100 WBC (0-0); Total Cells Counted 100
--- NOTE | 2019-06-08 09:45 | P.GSHP ---
History of Present Illness H&P Date: 06/08/19 Chief Complaint: left ureteral stone Ms Rincon is 49-year-old female with a past medical history significant for MS. she was admitted to the hospital with UTI. Of note she has history of chronic urinary retention been managed by Austin catheter. She underwent a CT abdomen /pelvis. Which showed a 6 mm left-sided proximal stone with hydronephrosis. Patient denies any flank pain. She indicated prior to presentation she was febrile. Denies any nausea and vomiting. She is unaware of any past history of kidney stones - Constitutional Constitutional: Denies chills, Denies fever - EENT Ears, nose, mouth and throat: Denies headache, Denies sore throat - Cardiovascular Cardiovascular: Denies chest pain, Denies shortness of breath - Respiratory Respiratory: Denies cough, Denies 7 - Gastrointestinal Gastrointestinal: Denies abdominal pain, Denies diarrhea, Denies nausea, Denies vomiting - Genitourinary (Female) Genitourinary: Denies flank pain - Musculoskeletal Musculoskeletal: Denies myalgias - Neurological Neurological: Denies numbness, Denies weakness Past Medical History Past Medical History: Dialysis, Hyperlipidemia, Musculoskeletal Disorder, Neurologic Disorder, Pneumonia, Renal Disease Additional Past Medical History / Comment(s): Multiple sclerosis stage IV-mostly wheelchair bound but pt states recently physical therapy got her to stand briefly-L side weaker than right, past renal failure with hemodialysis-last time was July 2016, sacral decub, sacral osteomylitis, neurogenic bladder with indwelling austin, UTIs, past sepsis, iron deficiency anemia. History of Any Multi-Drug Resistant Organisms: ESBL, MRSA, VRE Date of last positivie culture/infection: 05/22/16 MRSA; 05/18/16 VRE,ESBL 08/27/17 MDRO Source:: , ESBL 08/27/17 URINE, MRSA BLOOD Past Surgical History: No Surgical Hx Reported Additional Past Surgical History / Comment(s): LP, debridement decubitus sacral ulcer, hemodialysis cath since removed, picc lines-none present. 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 Past Psychological History: No Psychological Hx Reported Additional Psychological History / Comment(s): Pt resides at [facility]. She has been there alittle over a year. She states she is mostly wheelchair bound-sit to stand device to chair. She has an IDC. Pt feeds herself. Smoking Status: Never smoker Past Alcohol Use History: None Reported Additional Past Alcohol Use History / Comment(s): Patient is a lifelong nonsmoker. She denies any alcohol abuse. Past Drug Use History: None Reported - Past Family History Father History Unknown: Yes Additional Family Medical History / Comment(s): PTS DAD LIVED IN [place]- SHE'S NOT SURE WHAT HE FROM. HE HAD HYPOTENSION. Mother Family Medical History: Coronary Artery Disease (CAD), Diabetes Mellitus, Hyperlipidemia, Hypertension Additional Family Medical History / Comment(s): CARDIAC STENTS Medications and Allergies Home Medications Medication Instructions Recorded Confirmed Type Acetaminophen Tab [Tylenol] 650 mg PO Q6HR PRN 05/17/16 06/05/19 History Folic Acid 1 mg PO DAILY@0700 08/22/16 06/05/19 History Levothyroxine Sodium [Synthroid] 50 mcg PO DAILY@0700 08/22/16 06/05/19 History Pro-Stat Awc 30 ml PO BID 08/22/16 06/05/19 History Thiamine [Vitamin B-1] 100 mg PO DAILY@0700 08/22/16 06/05/19 History Pravastatin Sodium [Pravachol] 40 mg PO HS tab 09/01/17 06/05/19 Rx Dimethyl Fumarate [Tecfidera] 240 mg PO BID 11/03/17 06/05/19 History Ferrous Sulfate [Iron (65 MG 325 mg PO BID 11/03/17 06/05/19 History Elemental)] Aspirin EC [Ecotrin Low Dose] 81 mg PO DAILY 01/12/19 06/05/19 History Cyanocobalamin [Vitamin B-12] 500 mcg PO DAILY@0700 01/12/19 06/05/19 History Fluticasone Nasal [place] [Flonase 2 spr EA NOSTRIL HS 01/12/19 06/05/19 History Nasal Eads] Potassium Chloride ER [K-Dur 20] 20 meq PO BID 01/12/19 06/05/19 History Spironolactone [Aldactone] 25 mg PO DAILY 01/12/19 06/05/19 History Torsemide [Demadex] 80 mg PO DAILY 01/12/19 06/05/19 History Gabapentin [Neurontin] 300 mg PO TID@0700,1300,1900 #20 01/16/19 06/05/19 Rx cap HYDROcodone/APAP 5-325MG [[place] 1 tab PO Q6H PRN #12 tab 01/16/19 06/05/19 Rx 5-325] Baclofen [Lioresal] 20 mg PO TID@0700,1300,1900 06/05/19 06/05/19 History Cholecalciferol (Vitamin D3) 125 mcg PO DAILY@0700 06/05/19 06/05/19 History [Vitamin D3] Hydrophilic Cream [Triad Cream] 1 applic TOPICAL HS 06/05/19 06/05/19 History Lansoprazole [Prevacid] 15 mg PO DAILY 06/05/19 06/05/19 History Promethazine HCl 12.5 mg PO Q6H PRN 06/05/19 06/05/19 History Allergies Allergy/AdvReac Type Severity Reaction Status Date / Time cinnamon Allergy Rash/Hives Verified 06/05/19 18:55 Surgical - Exam Vital Signs Temp Pulse Resp BP Pulse Ox 100.5 F H 109 H 18 116/76 100 06/05/19 18:25 06/05/19 18:25 06/05/19 18:25 06/05/19 18:25 06/05/19 18:25 - General no distress, no pain - Eyes no pale, icteric - ENT normal mucosa, no hearing loss - Respiratory normal expansion, normal respiratory effort - Abdomen Abdomen: soft, non tender, no distended - Psychiatric oriented to time, oriented to person, oriented to place Results - Labs 06/08/19 07:07 06/08/19 07:07 Abnormal Lab Results - Last 24 Hours (Table) 06/07/19 06/08/19 06/08/19 Range/Units 07:14 07:07 07:07 Lymphocytes # (Manual) 0.83 L (1.0-4.8) k/uL Carbon Dioxide 21 L (22-30) mmol/L BUN 30 H (7-17) mg/dL Creatinine 1.15 H (0.52-1.04) mg/dL C-Reactive Protein 267.0 H (<10.0) mg/L Microbiology - Last 24 Hours (Table) 06/05/19 19:00 Blood Culture Gram Stain - Final Blood Blood Culture - Final Providencia stuartii 06/06/19 15:48 Blood Culture - Preliminary Blood No Growth after 24 hours 06/05/19 18:40 Urine Culture - Final Urine,Voided Mikie contreras Diabetes panel 06/08/19 Range/Units 07:07 Sodium 137 (137-145) mmol/L Potassium 4.8 (3.5-5.1) mmol/L Chloride 106 (98-107) mmol/L Carbon Dioxide 21 L (22-30) mmol/L BUN 30 H (7-17) mg/dL Creatinine 1.15 H (0.52-1.04) mg/dL Glucose 80 (74-99) mg/dL Calcium 9.2 (8.4-10.2) mg/dL Calcium panel 06/08/19 Range/Units 07:07 Calcium 9.2 (8.4-10.2) mg/dL Pituitary panel 06/08/19 Range/Units 07:07 Sodium 137 (137-145) mmol/L Potassium 4.8 (3.5-5.1) mmol/L Chloride 106 (98-107) mmol/L Carbon Dioxide 21 L (22-30) mmol/L BUN 30 H (7-17) mg/dL Creatinine 1.15 H (0.52-1.04) mg/dL Glucose 80 (74-99) mg/dL Calcium 9.2 (8.4-10.2) mg/dL Adrenal panel 06/08/19 Range/Units 07:07 Sodium 137 (137-145) mmol/L Potassium 4.8 (3.5-5.1) mmol/L Chloride 106 (98-107) mmol/L Carbon Dioxide 21 L (22-30) mmol/L BUN 30 H (7-17) mg/dL Creatinine 1.15 H (0.52-1.04) mg/dL Glucose 80 (74-99) mg/dL Calcium 9.2 (8.4-10.2) mg/dL Assessment and Plan Assessment: 49-year-old female history of multiple sclerosis. Admitted to the hospital with a UTI, she underwent a CT which showed a 6 mm left proximal stone Plan: -Continue antibiotic -Keep NPO -OR today for cystoscopy and left ureteral stent placement
--- NOTE | 2019-06-08 10:26 | P.PN ---
Subjective This is a pleasant 41 years old female with past medical history of hyperlipidemia, multiple sclrosis , past renal failure needing hemodialysis and pressure ulcer, neurogenic bladder. Presents with fever. Today patient was lying in bed comfortable, she is fully awake and oriented to time place and person, she knows she is at the Hospital, She can recognize the year 2019, and she was able the president, no abdominal pain or dysuria however she has increased frequency and shows chronic low back pain for more than 10 years, no chest pain or dyspnea. Labs showing WBCs down to normal upon 0.1 K, creatinine went up to 1.3, rest of other class are within normal limits. She is hemodynamically stable and blood pressure 1:30/83 Currently patient is on Invanz and ceftriaxone, also she is on Lasix 40 mg daily (discontinued) 06/08/2019 Patient is awake and alert, she remains on Invanz for positive urine culture with colten brush, her abdominal CAT scan showing a 6 mm left ureteral stone causing mild to moderate left-sided hydronephrosis, urologist are planning for ureteral stent today. Patient has indwelling Chaves catheter for 3 years secondary to neurogenic bladder from multiple sclerosis as per patient line infectious disease on the case for management and antibiotic, antibiotic changed from Invanz cefepime Bankruptcy Legal Assistant recommended no further testing for her mild CHF noted on the chest x-ray, of note patient is not dyspneic or symptomatic Objective - Vital Signs Vital signs: Vital Signs Temp 98.9 F 06/08/19 05:00 Pulse 93 06/08/19 05:00 Resp 16 06/08/19 05:00 BP 102/71 06/08/19 05:00 Pulse Ox 95 06/08/19 05:00 Intake & Output 06/07/19 06/08/19 06/08/19 18:59 06:59 18:59 Intake Total 240 1200 Output Total 3860 475 Balance -3620 725 Intake: Oral 240 1200 Output: Urine 3860 475 Uretheral (Chaves) 2900 Other: Voiding Method Indwelling Catheter Indwelling Catheter Indwelling Catheter # Bowel Movements 1 - Exam GENERAL: The patient is alert and oriented x3, not in any acute distress. Well developed, well nourished. HEENT: Pupils are round and equally reacting to light. EOMI. No scleral icterus. No conjunctival pallor. Normocephalic, atraumatic. No pharyngeal erythema. No thyromegaly. CARDIOVASCULAR: S1 and S2 present. No murmurs, rubs, or gallops. PULMONARY: Chest is clear to auscultation, no wheezing or crackles. ABDOMEN: Soft, nontender, nondistended, normoactive bowel sounds. No palpable organomegaly. -MUSCULOSKELETAL: No joint swelling or deformity. Sacral pressure ulcer with surrounding cellulitis EXTREMITIES: No cyanosis, clubbing, or pedal edema. NEUROLOGICAL: Gross neurological examination did not reveal any focal deficits. SKIN: No rashes. no petechiae. - Labs CBC & Chem 7: 06/08/19 07:07 06/08/19 07:07 Labs: Abnormal Lab Results - Last 24 Hours (Table) 06/07/19 06/08/19 06/08/19 Range/Units 07:14 07:07 07:07 Lymphocytes # (Manual) 0.83 L (1.0-4.8) k/uL Carbon Dioxide 21 L (22-30) mmol/L BUN 30 H (7-17) mg/dL Creatinine 1.15 H (0.52-1.04) mg/dL C-Reactive Protein 267.0 H (<10.0) mg/L Microbiology - Last 24 Hours (Table) 06/07/19 07:14 Blood Culture - Preliminary Blood No Growth after 24 hours 06/05/19 19:00 Blood Culture Gram Stain - Final Blood Blood Culture - Final Providencia stuartii 06/06/19 15:48 Blood Culture - Preliminary Blood No Growth after 24 hours 06/05/19 18:40 Urine Culture - Final Urine,Voided Providencia stuartii Assessment and Plan Assessment: Acute complicated UTI Left renal calculus about 6 mm with mild to moderate left sided hydronephrosis Stage III sacral pressure ulcers with evidence of soft tissue infection and osteomyelitis on CAT scan Fecal impaction Hyperlipidemia Past history of renal failure needing hemodialysis Metabolic encephalopathy Osteoarthritis Neurogenic bladder Obesity with BMI of 39.9 Plan: This is a pleasant 49 years old female who presents with UTI, kidney stones and mild to moderate left-sided hydronephrosis. Also pressure ulcer with possible osteomyelitis. Continue with antibiotics as per ID team, stop Lasix and follow- up renal function, patient going for stent placement by urologist, give laxative Labs and medication were reviewed.. Continue same treatment. Continue with symptomatic treatment. Resume home medication. Monitor lytes and vitals. DVT and GI prophylaxis. Further recommendations of the clinical course of the patient DVT prophylaxis: Subcutaneous Lovenox GI Prophylaxis: Protonix Prognosis is guarded
[2019-06-08] MEDS ORDERED: LACTATED RINGERS 1,000 ML IV ONE (12:02)
[2019-06-08] MEDS ORDERED: MIDAZOLAM 2 MG/2 ML VIAL ONE (12:38)
[2019-06-08] MEDS ORDERED: LIDOCAINE 1% INJ 10MG/ML (20 ML MDV) ONE (12:38)
[2019-06-08] MEDS ORDERED: KETAMINE 10 MG/ML 20 ML VIAL ONE (12:38)
[2019-06-08] MEDS ORDERED: fentaNYL (PF) 50 MCG/ML 2 ML AMP ONE (12:38)
[2019-06-08] MEDS ORDERED: PROPOFOL 10 MG/ML 20 ML VIAL IV ONE (12:38)
--- NOTE | 2019-06-08 13:20 | FL ---
EXAMINATION TYPE: FL guidance operating room DATE OF EXAM: 06/08/2019 CLINICAL HISTORY: Fluoroscopic documentation during left ureteral stent placement. TECHNIQUE: Fluoroscopy. COMPARISON: None. FINDINGS: Fluoroscopic guidance was provided during procedure performed by Dr. Rivero. A total of 9 seconds of fluoroscopic time was utilized during the procedure and 1 spot images was acquired demonst rating left ureteral stent placement. IMPRESSION: As Above.
[2019-06-08] MEDS: BACLOFEN 10 MG TAB PO SCH ×3 (13:50→19:08)
[2019-06-08] MEDS: GABAPENTIN 300 MG CAP PO SCH ×3 (13:51→19:08)
[2019-06-08] MEDS: ASPIRIN 81 MG PO SCH (14:20)
[2019-06-08] MEDS: POTASSIUM CHLORIDE ER 20 MEQ TAB.ER PO SCH ×2 (14:20→20:33)
[2019-06-08] MEDS: FERROUS SULFATE 325 MG TAB PO SCH ×2 (14:20→20:33)
[2019-06-08] MEDS: THIAMINE 100 MG TAB PO SCH (14:21)
[2019-06-08] MEDS: PANTOPRAZOLE 40 MG TABLET PO SCH (14:21)
[2019-06-08] MEDS: SPIRONOLACTONE 25 MG TAB PO SCH (14:21)
[2019-06-08] MEDS: CHOLECALCIFEROL 1,000 UNIT TAB PO SCH (14:22)
[2019-06-08] MEDS: CYANOCOBALAMIN 500 MCG TAB PO SCH (14:22)
[2019-06-08] MEDS: FOLIC ACID 1 MG TAB PO SCH (14:26)
[2019-06-08] MEDS: HYDROcodone/APAP 5-325MG 1 EACH TAB PO PRN ×2 (14:26→20:33)
[2019-06-08] MEDS: PRO STAT AWC PO SCH ×2 (14:31→20:29)
--- NOTE | 2019-06-08 17:53 | PN ---
PROGRESS NOTE DATE OF SERVICE: 06/08/2019. REASON FOR FOLLOWUP: Urinary tract infection with secondary bacteremia. INTERVAL HISTORY: The patient is currently afebrile. The patient has been breathing comfortably. The patient denies having any chest pain or shortness of breath or cough. No nausea, no vomiting. No abdominal pain or diarrhea. PHYSICAL EXAMINATION: Blood pressure 106/75 with a pulse of 82, temperature 96.9. She is 99% on room air. General description is a middle-aged female lying in bed in no distress. RESPIRATORY SYSTEM: Unlabored breathing. Clear to auscultation anteriorly. HEART: S1, S2. Regular rate and rhythm. ABDOMEN: Soft. No tenderness. LABS: Hemoglobin is 13.1, white count 5.9. Creatinine is 1.15. Blood culture is Providencia stuartii. DIAGNOSTIC IMPRESSION AND PLAN: Patient with Providencia stuartii bacteremia secondary to urinary tract infection, complicated urinary tract infection. reviewed; so far negative. Will get a midline to continue with cefepime 2 grams q.12 hours for at least 2 weeks with close outpatient followup. MMODL / IJN: [id number] /
--- NOTE | 2019-06-08 17:56 | P.OP ---
Date of Procedure: 06/08/19 Preoperative Diagnosis: left ureteral calculi Postoperative Diagnosis: same Procedure(s) Performed: Cystoscopy, Left ureteral stent placement Implants: 6 Fr X 26 cm stent Anesthesia: KATRINAA Surgeon: Puneet Beatty Estimated Blood Loss (ml): 1 Pathology: none sent Condition: stable Disposition: PACU Indications for Procedure: Ms Rincon is a 49-year-old female with left proximal ureteral stone and UTI. I discussed with her given her UTI and an obstructive stone I recommend she undergoes ureteral stent placement. Discussed with her the risk which includes bleeding and sepsis. She understood all the risk and agreed to proceed Description of Procedure: Patient was brought to the operating room, anesthesia was induced. She was prepped and draped in sterile fashion placed in a dorsal lithotomy position. Cystoscopy was fitted with a 22-Afghan sheath was inserted per urethra. Cystoscopy was performed showed evidence of cystitis but no bladder tumors. The left ureteral orifice was intubated with sensor wire A 4.8-Afghan by 26 cm stent was passed over the wire. The proximal curl was visualized on fluoroscopy, the distal curl was visualized on cystoscopy. There was obtained the case 16-Afghan catheter was placed. The patient was awakened from anesthesia and taken to recovery in stable condition
[2019-06-08] MEDS: FLUTICASONE 50MCG/SPRAY NASAL 16GM EA NOSTRIL SCH (20:33)
[2019-06-08] MEDS: HYDROPHILIC CREAM 180 GM TUBE TOPICAL SCH (20:33)
[2019-06-08] MEDS: PRAVASTATIN SODIUM 40 MG TAB PO SCH (20:33)
[2019-06-08 21:48] VITALS: BP 114/80
[2019-06-09 05:55] VITALS: PULSE 79; TEMP 97.5
[2019-06-09] MEDS: CEFEPIME 2 GM in SODIUM CHLORIDE 0.9% 100 ML IVPB SCH (08:16)
[2019-06-09] MEDS: ENOXAPARIN 40 MG/0.4 ML SYRINGE SQ SCH (08:16)
[2019-06-09] MEDS: HYDROcodone/APAP 5-325MG 1 EACH TAB PO PRN (08:17)
[2019-06-09] MEDS: BACLOFEN 10 MG TAB PO SCH (08:17)
[2019-06-09] MEDS: POTASSIUM CHLORIDE ER 20 MEQ TAB.ER PO SCH (08:17)
[2019-06-09] MEDS: PANTOPRAZOLE 40 MG TABLET PO SCH (08:18)
[2019-06-09] MEDS: FERROUS SULFATE 325 MG TAB PO SCH (08:18)
[2019-06-09] MEDS: ASPIRIN 81 MG PO SCH (08:18)
[2019-06-09] MEDS: CHOLECALCIFEROL 1,000 UNIT TAB PO SCH (08:18)
[2019-06-09] MEDS: CYANOCOBALAMIN 500 MCG TAB PO SCH (08:19)
[2019-06-09] MEDS: THIAMINE 100 MG TAB PO SCH (08:19)
[2019-06-09] MEDS: GABAPENTIN 300 MG CAP PO SCH (08:19)
[2019-06-09] MEDS: LEVOTHYROXINE 50 MCG TAB PO SCH (08:19)
[2019-06-09] MEDS: PRO STAT AWC PO SCH (08:19)
[2019-06-09] MEDS: SPIRONOLACTONE 25 MG TAB PO SCH (08:19)
[2019-06-09] MEDS: FOLIC ACID 1 MG TAB PO SCH (08:19)
[2019-06-09 08:27] LABS: Calcium 9.2 mg/dL (8.4-10.2); Potassium 4.6 mmol/L (3.5-5.1)
[2019-06-09 08:47] LABS: HCT 37.2 % (34.0-46.0); HGB 12.3 gm/dL (11.4-16.0); MCH 28.3 pg (25.0-35.0); MCHC 32.9 g/dL (31.0-37.0); MCV 85.8 fL (80.0-100.0); Mean Platelet Volume 7.7; Platelet Count 241 k/uL (150-450); RBC 4.34 m/uL (3.80-5.40); RDW 14.3 % (11.5-15.5)
[2019-06-09 09:32] LABS: Eosinophils # (M) 0.05 k/uL (0-0.7); Neutrophils # (M) 4.55 k/uL (1.3-7.7); Neutrophils % (M) 91 %; Nucleated Red Blood Cells 0 /100 WBC (0-0); Total Cells Counted 100
[2019-06-09 09:34] LABS: Anisocytosis (M) Present; Poikilocytosis (M) Present
--- NOTE | 2019-06-09 10:17 | P.DS ---
Providers Date of admission: 06/06/19 11:15 Attending physician: Clementine Mc Consults: 06/06/19 01:06 Consult Physician Routine Consulting Provider: Bobo Rivero Consult Reason/Comments: sepsis Do you want consulting provider notified?: Yes 06/06/19 15:38 Consult Physician Routine Consulting Provider: Tasneem Price Consult Reason/Comments: chf Do you want consulting provider notified?: Yes 06/07/19 12:44 Consult Physician Urgent Consulting Provider: Inocencio Santo Consult Reason/Comments: renal stone and hydronephrosis Do you want consulting provider notified?: Yes [facility] Course: Diagnoses: Acute complicated UTI Left renal calculus about 6 mm with mild to moderate left sided hydronephrosis Stage III sacral pressure ulcers with evidence of soft tissue infection and osteomyelitis on CAT scan Fecal impaction Hyperlipidemia Past history of renal failure needing hemodialysis Metabolic encephalopathy Osteoarthritis Neurogenic bladder Obesity with BMI of 39.9 Hospital course: This is a pleasant 41 years old female with past medical history of hyperlipidemia, multiple sclrosis , neurogenic bladder secondary to multiple sclerosis, past renal failure needing hemodialysis and pressure ulcer, . Presents with fever. she is fully awake and oriented to time place and person, she knows she is at the Hospital, patient is found to have UTI, she is been followed closely by infectious disease and neurology service. She was treated originally with Invanz and switch to cefepime for positive urine culture with colten brush, her abdominal CAT scan showing a 6 mm left ureteral stone causing mild to moderate left-sided hydronephrosis, urologist placed ureteral stent on the left side. On discharge patient feels well, no new complaint, no dysuria, no nausea vomiting, no abdominal pain or back pain, she is tolerating diet well, no change in bowel habits. No fever Patient was cleared for discharge by infectious disease and urology services she will be discharged on cefepime for 2 weeks per ID team recommendation Problems and management plan were discussed with the patient and he verbalized understanding and acceptance Patient was found stable and can be discharged home however he needs follow-up as an outpatient. Patient was instructed to follow up with PCP within one week and patient agrees. Patient was instructed to follow up with urologist as an outpatient Gen: patient is a AAOx3, no distress. Obese CVS: S1-S2, RRR, no murmur Lungs: B/L CTA, no wheezing Abdomen: soft, no distention, no tenderness, positive bowel sounds Extremity: no leg edema or induration Time spent more than 35 minutes Patient Condition at Discharge: Fair Plan - Discharge Summary Discharge Rx Participant: No New Discharge Prescriptions: No Action Acetaminophen Tab [Tylenol] 650 mg PO Q6HR PRN PRN Reason: Pain Folic Acid 1 mg PO DAILY@0700 Levothyroxine Sodium [Synthroid] 50 mcg PO DAILY@0700 Pro-Stat Awc 30 ml PO BID Thiamine [Vitamin B-1] 100 mg PO DAILY@0700 Pravastatin Sodium [Pravachol] 40 mg PO HS tab Ferrous Sulfate [Iron (65 MG Elemental)] 325 mg PO BID Dimethyl Fumarate [Tecfidera] 240 mg PO BID Aspirin EC [Ecotrin Low Dose] 81 mg PO DAILY Cyanocobalamin [Vitamin B-12] 500 mcg PO DAILY@0700 Fluticasone Nasal [place] [Flonase Nasal [place]] 2 spr EA NOSTRIL HS Potassium Chloride ER [K-Dur 20] 20 meq PO BID Spironolactone [Aldactone] 25 mg PO DAILY Torsemide [Demadex] 80 mg PO DAILY Gabapentin [Neurontin] 300 mg PO TID@0700,1300,1900 #20 cap HYDROcodone/APAP 5-325MG [[place] 5-325] 1 tab PO Q6H PRN #12 tab PRN Reason: Pain Hydrophilic Cream [Triad Cream] 1 applic TOPICAL HS Lansoprazole [Prevacid] 15 mg PO DAILY Cholecalciferol (Vitamin D3) [Vitamin D3] 125 mcg PO DAILY@0700 Baclofen [Lioresal] 20 mg PO TID@0700,1300,1900 Promethazine HCl 12.5 mg PO Q6H PRN PRN Reason: Nausea And Vomiting Discharge Medication List Acetaminophen Tab [Tylenol] 650 mg PO Q6HR PRN 05/17/16 [History] Folic Acid 1 mg PO DAILY@0700 08/22/16 [History] Levothyroxine Sodium [Synthroid] 50 mcg PO DAILY@0700 08/22/16 [History] Pro-Stat Awc 30 ml PO BID 08/22/16 [History] Thiamine [Vitamin B-1] 100 mg PO DAILY@0700 08/22/16 [History] Pravastatin Sodium [Pravachol] 40 mg PO HS tab 09/01/17 [Rx] Dimethyl Fumarate [Tecfidera] 240 mg PO BID 11/03/17 [History] Ferrous Sulfate [Iron (65 MG Elemental)] 325 mg PO BID 11/03/17 [History] Aspirin EC [Ecotrin Low Dose] 81 mg PO DAILY 01/12/19 [History] Cyanocobalamin [Vitamin B-12] 500 mcg PO DAILY@0700 01/12/19 [History] Fluticasone Nasal [place] [Flonase Nasal [place]] 2 spr EA NOSTRIL HS 01/12/19 [History] Potassium Chloride ER [K-Dur 20] 20 meq PO BID 01/12/19 [History] Spironolactone [Aldactone] 25 mg PO DAILY 01/12/19 [History] Torsemide [Demadex] 80 mg PO DAILY 01/12/19 [History] Gabapentin [Neurontin] 300 mg PO TID@0700,1300,1900 #20 cap 01/16/19 [Rx] HYDROcodone/APAP 5-325MG [[place] 5-325] 1 tab PO Q6H PRN #12 tab 01/16/19 [Rx] Baclofen [Lioresal] 20 mg PO TID@0700,1300,1900 06/05/19 [History] Cholecalciferol (Vitamin D3) [Vitamin D3] 125 mcg PO DAILY@0700 06/05/19 [History] Hydrophilic Cream [Triad Cream] 1 applic TOPICAL HS 06/05/19 [History] Lansoprazole [Prevacid] 15 mg PO DAILY 06/05/19 [History] Promethazine HCl 12.5 mg PO Q6H PRN 06/05/19 [History] Follow up Appointment(s)/Referral(s): Chace Mojica MD [Primary Care Provider] - 1-2 days
--- NOTE | 2019-06-13 12:00 | CDI ---
Documentation Clarification Form Date: 06/13/19 From: Ashley Kim CCS Phone: If you have a question about this query, please contact Melonie Mcdonnell, Scientific Research Associate at [phone] between 8am and 5pm. Admit Date: 06/06/19 Discharge Date:06/09/19 Patient Name: Rachel Rincon Visit Number: [id number] ATTENTION: The Clinical Documentation Specialists (CDI) and [facility] Coding Staff appreciate your assistance in clarifying documentation. Please respond to the clarification below the line at the bottom and electronically sign. The CDI & [facility] Coding staff will review the response and follow-up if needed. Please note: Queries are made part of the Legal Health Record. If you have any questions, please contact the author of this message via ITS. Dear Dr. Carlin, Osteomyelitis has been documented in the : PNs, DS History/Risk Factors: Stage III Sacral pressure ulcer, Wheelchair confinement Labs: WBC 14.9, 9.1 CT Results: Evidence of chronic osteomyelitis and chronic sacral ulcer Treatment: Wound care, Maxipime 2 gm IVPB, Rocephin 1 gm IVBP, Vancomycin 2,000 mg IVPB In your professional opinion, please specify the following: Acuity: Acute Chronic Subacute Unable to Determine Unable to Determine, possible osteomyelitis on CAT scan however refer to ID team note. MTDD
--- NOTE | 2019-06-13 12:11 | CDI ---
Documentation Clarification Form Date: 06/13/19 From: Ashley Kim CCS Phone: If you have a question about this query, please contact Melonie Mcdonnell, [employer] at [phone] between 8am and 5pm. Admit Date: 06/06/19 Discharge Date:06/09/19 Patient Name: Rachel Rincon Visit Number: [id number] ATTENTION: The Clinical Documentation Specialists (CDI) and [facility] Coding Staff appreciate your assistance in clarifying documentation. Please respond to the clarification below the line at the bottom and electronically sign. The CDI & [facility] Coding staff will review the response and follow-up if needed. Please note: Queries are made part of the Legal Health Record. If you have any questions, please contact the author of this message via ITS. Dear Dr. Carlin, The diagnosis sepsis was documented in the record, but is not noted in subsequent documentation. History/Risk Factors: UTI, Osteomyelitis, Cellulitis Clinical Indicators: Tachycardia, Vitals: Temp 100.5, BP 117/73, SD 125, RR 16, O2 Sat 100 WBC: 14.9, 9.1 Lactic Acid: 1.7 Treatment: Maxipime 2 gm IVPB, Rocephin 1 gm IVPB, Vancomycin 2,000 mg IVPB Please clarify if the sepsis was Present/active this admission Treated and resolved this admission Ruled out Other, please specify Clinically unable to determine Patient has sepsis with at least 2 positive SIRS criteria including leukocytosis and fever. Secondary to UTI. Present on admission MTDD
== END 2019-06-09 12:54 | DRG 659 ==
LOC: EC 18:13 → 5NMEDONC 20:30 → OBSVTOIN 06-06 11:15
PROVIDERS: ADMIT Hospitalist; ATTEND Hospitalist
PROC: 0T778DZ Dilation of Left Ureter with Intraluminal Device, Via Natural or Artificial Opening Endoscopic (ICD-10-PCS; principal; 2019-06-08 07:30)
PROC: 05HF33Z Insertion of Infusion Device into Left Cephalic Vein, Percutaneous Approach (ICD-10-PCS; 2019-06-09 09:00)
DX: T83.511A Infection and inflammatory reaction due to indwelling urethral catheter, initial encounter (principal); G93.41 Metabolic encephalopathy; L89.153 Pressure ulcer of sacral region, stage 3; A41.59 Other Gram-negative sepsis; N13.6 Pyonephrosis; L03.115 Cellulitis of right lower limb; L03.116 Cellulitis of left lower limb; I50.22 Chronic systolic (congestive) heart failure; M86.9 Osteomyelitis, unspecified; M86.68 Other chronic osteomyelitis, other site; G35 Multiple sclerosis; E78.5 Hyperlipidemia, unspecified; N31.9 Neuromuscular dysfunction of bladder, unspecified; M19.90 Unspecified osteoarthritis, unspecified site; G89.29 Other chronic pain; R26.9 Unspecified abnormalities of gait and mobility; K56.41 Fecal impaction; E87.5 Hyperkalemia; E66.9 Obesity, unspecified; R33.9 Retention of urine, unspecified; Z68.39 Body mass index [BMI] 39.0-39.9, adult; Z79.890 Hormone replacement therapy; Z79.82 Long term (current) use of aspirin; Z79.899 Other long term (current) drug therapy; Z74.01 Bed confinement status; Z87.01 Personal history of pneumonia (recurrent); Z99.3 Dependence on wheelchair; Z96.0 Presence of urogenital implants; Z87.448 Personal history of other diseases of urinary system; Z86.19 Personal history of other infectious and parasitic diseases; Z87.440 Personal history of urinary (tract) infections; Z86.14 Personal history of Methicillin resistant Staphylococcus aureus infection; Z98.890 Other specified postprocedural states; Z91.018 Allergy to other foods; Z83.3 Family history of diabetes mellitus; Z82.49 Family history of ischemic heart disease and other diseases of the circulatory system; Z83.438 Family history of other disorder of lipoprotein metabolism and other lipidemia
CPT/HCPCS: 36410; 36415; 71046; 74176; 76937; 80048; 80053; 81001; 81025; 83605; 83735; 83880; 84100; 85025; 85652; 86140; 87040; 87077; 87086; 87186; 87502; 93005; 93306; 96365; 96367; 99285

== ENCOUNTER 2019-09-15 10:22 | Day surgery (SDC) | payer OTHER ==
--- NOTE | 2019-09-03 16:46 | P.HPIHPCON ---
History of Present Illness H&P Date: 09/15/19 Chief Complaint: Left ureteral calculi Ms. Rincon is 49-year-old female with history of left ureteral calculi. She is status post stent placement back in May. She had a CT done at that time that demonstrated a 6 mm left proximal stone, and a 5 mm nonobstructing stone on the left side. Discussed with her the option of performing ureteroscopy. Discussed the risks and alternatives with her. I discussed with her the risk which includes but not limited to bleeding, infection, injury to the ureter. Also discussed given her history of recurrent UTIs is potential sepsis. Also discussed risk from anesthesia. She understood all the risk and agreed to proceed with left-sided ureteroscopy Consent for Procedure: I have explained the operation/procedure to the patient, including the risks, benefits, side effects, alternative therapies (including not receiving the proposed treatment or service), the likelihood of the patient achieving his/her goals, and potential recuperation problems for the procedure/sedation/analgesia, as well as any blood products, if indicated. I also explained to the patient the risks, benefits and side effects of the alternatives, as well as the risks related to not receiving the proposed procedure, care, treatment, or services. - Constitutional Constitutional: Denies chills, Denies fever - Cardiovascular Cardiovascular: Denies chest pain, Denies shortness of breath - Respiratory Respiratory: Denies cough, Denies 7 - Gastrointestinal Gastrointestinal: Denies abdominal pain, Denies diarrhea, Denies nausea, Denies vomiting - Genitourinary (Female) Genitourinary: Denies dysuria, Denies hematuria Past Medical History Past Medical History: Dialysis, Hyperlipidemia, Musculoskeletal Disorder, Neurologic Disorder, Pneumonia, Renal Disease Additional Past Medical History / Comment(s): Multiple sclerosis stage IV-mostly wheelchair bound but pt states recently physical therapy got her to stand briefly-L side weaker than right, past renal failure with hemodialysis-last time was July 2016, sacral decub, sacral osteomylitis, neurogenic bladder with indwelling [place], UTIs, past sepsis, iron deficiency anemia. History of Any Multi-Drug Resistant Organisms: ESBL, MRSA, VRE Date of last positivie culture/infection: 05/22/16 MRSA; 05/18/16 VRE,ESBL 08/27/17 MDRO Source:: , ESBL 08/27/17 URINE, MRSA BLOOD Past Surgical History: No Surgical Hx Reported Additional Past Surgical History / Comment(s): LP, debridement decubitus sacral ulcer, hemodialysis cath since removed, picc lines-none present. 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 Past Psychological History: No Psychological Hx Reported Additional Psychological History / Comment(s): Pt resides at [facility]. [facility]. She states she is mostly wheelchair bound-sit to stand device to chair. She has an IDC. Pt feeds herself. Smoking Status: Never smoker Past Alcohol Use History: None Reported Additional Past Alcohol Use History / Comment(s): Patient is a lifelong nonsmoker. She denies any alcohol abuse. Past Drug Use History: None Reported - Past Family History Father History Unknown: Yes Additional Family Medical History / Comment(s): PTS DAD LIVED IN [place]- SHE'S NOT SURE WHAT HE FROM. HE HAD HYPOTENSION. Mother Family Medical History: Coronary Artery Disease (CAD), Diabetes Mellitus, Hyperlipidemia, Hypertension Additional Family Medical History / Comment(s): CARDIAC STENTS Medications and Allergies Home Medications Medication Instructions Recorded Confirmed Type Acetaminophen Tab [Tylenol] 650 mg PO Q6HR PRN 05/17/16 06/05/19 History Folic Acid 1 mg PO DAILY@0700 08/22/16 06/05/19 History Levothyroxine Sodium [Synthroid] 50 mcg PO DAILY@0700 08/22/16 06/05/19 History Pro-Stat Awc 30 ml PO BID 08/22/16 06/05/19 History Thiamine [Vitamin B-1] 100 mg PO DAILY@0700 08/22/16 06/05/19 History Pravastatin Sodium [Pravachol] 40 mg PO HS tab 09/01/17 06/05/19 Rx Dimethyl Fumarate [Tecfidera] 240 mg PO BID 11/03/17 06/05/19 History Ferrous Sulfate [Iron (65 MG 325 mg PO BID 11/03/17 06/05/19 History Elemental)] Aspirin EC [Ecotrin Low Dose] 81 mg PO DAILY 01/12/19 06/05/19 History Cyanocobalamin [Vitamin B-12] 500 mcg PO DAILY@0700 01/12/19 06/05/19 History Fluticasone Nasal [place] [Flonase 2 spr EA NOSTRIL HS 01/12/19 06/05/19 History Nasal [place]] Potassium Chloride ER [K-Dur 20] 20 meq PO BID 01/12/19 06/05/19 History Spironolactone [Aldactone] 25 mg PO DAILY 01/12/19 06/05/19 History Torsemide [Demadex] 80 mg PO DAILY 01/12/19 06/05/19 History Baclofen [Lioresal] 20 mg PO TID@0700,1300,1900 06/05/19 06/05/19 History Cholecalciferol (Vitamin D3) 125 mcg PO DAILY@0700 06/05/19 06/05/19 History [Vitamin D3] Hydrophilic Cream [Triad Cream] 1 applic TOPICAL HS 06/05/19 06/05/19 History Lansoprazole [Prevacid] 15 mg PO DAILY 06/05/19 06/05/19 History Promethazine HCl 12.5 mg PO Q6H PRN 06/05/19 06/05/19 History Cefepime HCl [Maxipime] 2 gm IV Q12H 14 Days #28 vial 06/09/19 Rx Gabapentin [Neurontin] 300 mg PO TID@0700,1300,1900 #10 06/09/19 Rx cap HYDROcodone/APAP 5-325MG [[place] 1 tab PO Q6H PRN 2 Days #3 tab 06/09/19 Rx 5-325] Heparin Sodium,Porcine [Heparin 5,000 unit SQ Q12HR 15 Days #30 06/09/19 Rx Sodium] vial Pantoprazole [Protonix] 40 mg PO YESIKA #14 tablet. 06/09/19 Rx Sennosides [Senokot] 8.6 mg PO BID PRN #0 tab 06/09/19 Rx Allergies Allergy/AdvReac Type Severity Reaction Status Date / Time cinnamon Allergy Rash/Hives Verified 06/05/19 18:55 Surgical - Exam - General no distress, no pain - Respiratory normal expansion, normal respiratory effort - Abdomen Abdomen: soft, non tender Assessment and Plan Assessment: 49 yo female with hx of 6 mm left proximal stone and lower pole non-obstructing stone -OR for Left Ureteroscopy with holmium laser, stent exchange
[2019-09-14 13:08] VITALS: BMI 40.6
[~2019-09-15 10:22] MED LIST: DEXAMETHASONE SOD PHOSPHATE 10 MG/ML 1 ML VIAL IV ONE; GENTAMICIN 120 MG in SODIUM CHLORIDE 0.9% 100 ML IVPB ONE; HYDROmorphone 0.5 MG/0.5 ML SYRINGE IVP PRN; LACTATED RINGERS 1,000 ML IV SCH; LIDOCAINE 1% (10MG/ML) FOR IV START INTRADERMA PRN; METOCLOPRAMIDE 5 MG/ML 2 ML VIAL IVP PRN; ONDANSETRON 4 MG/2 ML VIAL IVP ONE
[2019-09-15] MEDS ORDERED: LIDOCAINE 1% (10MG/ML) FOR IV START INTRADERMA ONE (11:12)
[2019-09-15] MEDS ORDERED: ONDANSETRON 4 MG/2 ML VIAL ONE (11:16)
[2019-09-15] MEDS ORDERED: SUCCINYLCHOLINE CHLORIDE 100 MG/5 ML SYR IV ONE (12:21)
[2019-09-15] MEDS ORDERED: MIDAZOLAM 2 MG/2 ML VIAL ONE (12:21)
[2019-09-15] MEDS ORDERED: PROPOFOL 10 MG/ML 20 ML VIAL IV ONE (12:21)
[2019-09-15] MEDS ORDERED: fentaNYL (PF) 50 MCG/ML 2 ML AMP ONE (12:21)
[2019-09-15] MEDS ORDERED: LIDOCAINE 1% INJ 10MG/ML (20 ML MDV) ONE (12:21)
[2019-09-15] MEDS ORDERED: IOPAMIDOL-370 50ML BTL MISCELLANE ONE (12:49)
[2019-09-15 14:03] VITALS: TEMP 97.5
--- NOTE | 2019-09-15 14:16 | P.OP ---
Date of Procedure: 09/15/19 Preoperative Diagnosis: Left ureteral, renal calculi Postoperative Diagnosis: Same Procedure(s) Performed: Cystoscopy, left retrograde pyelogram, ureteroscopy, holmium laser lithotripsy, stone basketing and stent exchange Implants: 6-Honduran by 26 cm stent left on a string Anesthesia: RODRIGUE Surgeon: Puneet Beatty Estimated Blood Loss (ml): 5 Pathology: other (Ureteral, renal calculi) Condition: stable Disposition: PACU Indications for Procedure: Ms. Rincon is 49-year-old female with history of left ureteral calculi. She is status post stent placement back in May. She had a CT done at that time that demonstrated a 6 mm left proximal stone, and a 5 mm nonobstructing stone on the left side. Discussed with her the option of performing ureteroscopy. Discussed the risks and alternatives with her. I discussed with her the risk which includes but not limited to bleeding, infection, injury to the ureter. Also discussed given her history of recurrent UTIs is potential sepsis. Also discussed risk from anesthesia. She understood all the risk and agreed to proceed with left-sided ureteroscop Operative Findings: 2 stones in the lower pole of the kidney Description of Procedure: The patient was brought to the operating room, general anesthesia was induced. She was prepped and draped in sterile fashion and placed in a dorsal lithotomy position. Cystoscopy fitted with a 21 sheath was inserted per urethra. Cystoscopy was performed which showed evidence of catheter cystitis, no papillary lesions were appreciated. At this time attention was carried to the left ureteral orifice, the stent was visualized and appears to be had evidence of mild encrustation. At this time the stent grasper was used to remove the stent the stent was removed intact. Next the left ureteral orifice was intubated with a 6-Honduran open-ended catheter, retrograde pyelogram was performed which showed dilation of the renal pelvis but no filling defect along the course of the ureter. At this time a sensor wire was advanced through the catheter into the renal pelvis. The catheter was removed with the wire in place. Next a 12 x 14-Honduran access sheath was passed over the wire under fluoroscopy and into the renal pelvis. Next a flexible ureteroscope was inserted through the access sheath. Renoscopy was performed which showed evidence of 2 stones in the lower pole of the kidney. Using the holmium laser the stones was fragmented into smaller fragments, the fragments were removed using the [place] stone basket. Repeat renoscopy showed no sizable fragments or any additional stones. At this time pullback ureteroscopy was performed showed no ureteral stones or evidence of injury to the ureter. At this time a sensor wire was advanced to the left ureteral orifice and into the renal pelvis. Next a 6-Honduran by 26 cm stent was passed over the wire. The proximal curl was visualized on fluoroscopy and the stent string was left in place. Next a 16- [place] catheter was placed and baloon was inflated to 20 mL. The stent string was secured to the Chaves catheter. The bladder was emptied and the case. The patient tolerated the procedure well was taken to PACU in stable condition
[2019-09-15 14:52] VITALS: BP 115/76; PULSE 78; RESP 18
--- NOTE | 2019-09-15 15:12 | FL ---
EXAMINATION TYPE: FL urography retrograde DATE OF EXAM: 09/15/2019 COMPARISON: NONE HISTORY: Postop TECHNIQUE: Fluoroscopy. FINDINGS: Fluoroscopic guidance was provided during procedure of 56 seconds. IMPRESSION: As Above.
== END 2019-09-15 15:11 | disposition home or self-care (01) ==
LOC: OR 10:22
PROVIDERS: ATTEND Urology
DX: Z87.440 Personal history of urinary (tract) infections (principal); E78.5 Hyperlipidemia, unspecified; Z87.01 Personal history of pneumonia (recurrent); Z87.448 Personal history of other diseases of urinary system; G35 Multiple sclerosis; Z99.3 Dependence on wheelchair; N31.9 Neuromuscular dysfunction of bladder, unspecified; Z96.0 Presence of urogenital implants; Z86.14 Personal history of Methicillin resistant Staphylococcus aureus infection; Z86.19 Personal history of other infectious and parasitic diseases; D50.9 Iron deficiency anemia, unspecified; Z98.890 Other specified postprocedural states; Z82.49 Family history of ischemic heart disease and other diseases of the circulatory system; Z83.3 Family history of diabetes mellitus; Z83.438 Family history of other disorder of lipoprotein metabolism and other lipidemia; Z79.02 Long term (current) use of antithrombotics/antiplatelets; Z79.82 Long term (current) use of aspirin; Z79.890 Hormone replacement therapy; Z79.899 Other long term (current) drug therapy; Z91.018 Allergy to other foods
CPT/HCPCS: 81025; 84132; 82365; 74420; 52356; C2625; C1894; C1758; C1769; J2250; J1100; J2405; J2001; J3010; J0330; J2704; Q9967

== ENCOUNTER 2020-01-30 23:47 | Inpatient (IN) | payer OTHER ==
[2020-01-31 00:13] LABS: Glucose,Whole Blood 156 mg/dL (75-99)
[2020-01-31] MEDS ORDERED: SODIUM CHLORIDE 0.9% 1,000 ML IV STA (00:15)
[2020-01-31] MEDS ORDERED: SODIUM CHLORIDE 0.9% 1,000 ML IV ONE (00:15)
[2020-01-31] MEDS ORDERED: PIPERACILLIN-TAZOBACTAM 3.375 GM in SODIUM CHLORIDE 0.9% 100 ML IVPB STA (00:16)
[2020-01-31 00:49] LABS: Partial Thromboplastin Time 22.9 sec (22.0-30.0); Prothrombin Time 10.7 sec (9.0-12.0)
[2020-01-31 00:51] LABS: ALT 15 U/L (4-34); AST 19 U/L (14-36); African American GFR (CKD) >90 (>60 ml/min/1.73 sqM); Albumin 3.7 g/dL (3.5-5.0); Alkaline Phosphatase 388 U/L (38-126); Anion Gap 12 mmol/L; Blood Urea Nitrogen 54 mg/dL (7-17); Carbon Dioxide 21 mmol/L (22-30); Chloride 101 mmol/L (98-107); Glucose 170 mg/dL (74-99); Non-African American GFR(CKD) 84 (>60 ml/min/1.73 sqM); Potassium 4.7 mmol/L (3.5-5.1); Sodium 134 mmol/L (137-145); Total Protein 6.4 g/dL (6.3-8.2)
--- NOTE | 2020-01-31 01:09 | XR ---
EXAM: XR Chest, 1 View CLINICAL HISTORY: Fever TECHNIQUE: Frontal view of the chest. COMPARISON: June 05, 2019 FINDINGS: Lungs: Low lung volumes. Pleural space: Unremarkable. No pneumothorax or pleural fluid. Heart: Unremarkable. No cardiomegaly. Mediastinum: Widened dense appearance to the upper mediastinum may be due to kyphotic positioning and is unchanged from the prior study. Bones/joints: No acute findings. Other findings: No change from prior study. IMPRESSION: No acute findings in the chest.
[2020-01-31 01:11] LABS: Anisocytosis Slight; Basophils # (A) 0.1 k/uL (0-0.2); Basophils % (A) 0 %; Eosinophils # (A) 0.1 k/uL (0-0.7); Eosinophils % (A) 1 %; HCT 40.6 % (34.0-46.0); HGB 13.1 gm/dL (11.4-16.0); Lymphocytes # (A) 0.5 k/uL (1.0-4.8); Lymphocytes % (A) 3 %; MCH 27.6 pg (25.0-35.0); MCHC 32.2 g/dL (31.0-37.0); MCV 85.6 fL (80.0-100.0); Mean Platelet Volume 7.1; Monocytes # (A) 0.6 k/uL (0-1.0); Monocytes % (A) 4 %; Neutrophils % (A) 92 %; Platelet Count 487 k/uL (150-450); RBC 4.74 m/uL (3.80-5.40); RDW 16.4 % (11.5-15.5); WBC 17.5 k/uL (3.8-10.6)
--- NOTE | 2020-01-31 01:15 | ED ---
Altered Mental Status HPI - General Chief Complaint: Altered Mental Status Stated Complaint: Altered Mental Status, poss sepsis Time Seen by Provider: 01/31/20 00:00 Source: patient, EMS Mode of arrival: EMS Limitations: altered mental status (delirium) - History of Present Illness Initial Comments: 's patient is a 49-year-old woman, transferred from alf to be evaluated for suspected sepsis related to urinary tract infection. The patient has history of similar as she does have indwelling Austin catheter, reportedly forsevere MS. Patient not able to providehistory, as she appears delirious. MD Complaint: decreased responsiveness -: unknown Severity: severe Consistency of Symptoms: getting worse Context: recent fever - Related Data Home Medications Medication Instructions Recorded Confirmed Acetaminophen Tab [Tylenol] 650 mg PO Q6HR PRN 05/17/16 01/31/20 Folic Acid 1 mg PO DAILY@1600 08/22/16 01/31/20 Levothyroxine Sodium [Synthroid] 50 mcg PO DAILY@0700 08/22/16 01/31/20 Ferrous Sulfate [Iron (65 MG 325 mg PO TID@0700,1200,1700 11/03/17 01/31/20 Elemental)] Cyanocobalamin [Vitamin B-12] 500 mcg PO DAILY@1600 01/12/19 01/31/20 Potassium Chloride ER [K-Dur 20] 20 meq PO BID 01/12/19 01/31/20 Spironolactone [Aldactone] 25 mg PO DAILY@0700 01/12/19 01/31/20 Baclofen [Lioresal] 20 mg PO TID@0700,1300,1900 06/05/19 01/31/20 Cholecalciferol (Vitamin D3) 125 mcg PO DAILY@1600 06/05/19 01/31/20 [Vitamin D3] Lansoprazole [Prevacid] 15 mg PO DAILY@1400 06/05/19 01/31/20 Aspirin 81 mg PO DAILY@1600 09/15/19 01/31/20 Dimethyl Fumarate [Tecfidera] 240 mg PO BID 01/31/20 01/31/20 Multivitamins, Thera [Multivitamin 1 tab PO DAILY@1600 01/31/20 01/31/20 (formulary)] Ondansetron [Zofran] 4 mg PO Q8HR PRN 01/31/20 01/31/20 Pravastatin Sodium [Pravachol] 40 mg PO HS@2000 01/31/20 01/31/20 Pro-Stat Awc 30 ml PO TID@0700,1300,1700 01/31/20 01/31/20 Sennosides [Senna] 8.6 mg PO BID@0700,1600 01/31/20 01/31/20 Sodium Bicarbonate Tab 650 mg PO TID@0700,1300,1900 01/31/20 01/31/20 bisacodyL [Bisacodyl] 10 mg RECTAL Q72H PRN 01/31/20 01/31/20 Previous Rx's Medication Instructions Recorded Gabapentin [Neurontin] 300 mg PO TID@0700,1300,1900 #10 06/09/19 cap HYDROcodone/APAP 5-325MG [[place] 1 tab PO Q6H PRN 2 Days #3 tab 06/09/19 5-325] Allergies Allergy/AdvReac Type Severity Reaction Status Date / Time adhesive tape Allergy Rash/Hives Verified 01/31/20 06:51 cinnamon Allergy Rash/Hives Verified 01/31/20 06:51 Review of Systems ROS Statement: Those systems with pertinent positive or pertinent negative responses have been documented in the HPI. ROS Other: All systems not noted in ROS Statement are negative. Limitations: ROS unobtainable due to patients medical condition (delirium) Constitutional: Reports: fever Respiratory: Denies: dyspnea Past Medical History Past Medical History: Hyperlipidemia, Musculoskeletal Disorder, Neurologic Disorder, Pneumonia, Renal Disease, Skin Disorder Additional Past Medical History / Comment(s): Multiple sclerosis stage IV- wheelchair bound, L side weaker than right, past renal failure with hemodialysis-last time was July 2016, mostly healed sacral decub, sacral osteomylitis, neurogenic bladder with indwelling austin, current UTI, past sepsis, iron deficiency anemia. History of Any Multi-Drug Resistant Organisms: ESBL, MRSA, VRE Date of last positivie culture/infection: 05/22/16 MRSA; 05/18/16 VRE,ESBL 08/27/17, ESBL urine-current MDRO Source:: , ESBL 08/27/17 URINE, MRSA BLOOD Past Surgical History: No Surgical Hx Reported Additional Past Surgical History / Comment(s): LP, debridement decubitus sacral ulcer, hemodialysis cath since removed, picc lines Past Anesthesia/Blood Transfusion Reactions: No Reported Reaction Additional Past Anesthesia/Blood Transfusion Reaction / Comment(s): NEVER HAD ANY GENERAL ANES Past Psychological History: No Psychological Hx Reported Smoking Status: Never smoker Past Alcohol Use History: None Reported Past Drug Use History: None Reported - Past Family History Father History Unknown: Yes Additional Family Medical History / Comment(s): PTS DAD LIVED IN [place]- SHE'S NOT SURE WHAT HE FROM. HE HAD HYPOTENSION. Mother Family Medical History: Coronary Artery Disease (CAD), Diabetes Mellitus, Hyperlipidemia, Hypertension Additional Family Medical History / Comment(s): CARDIAC STENTS General Exam Limitations: altered mental status General appearance: alert, other (appears delirious) Head exam: Present: atraumatic, normocephalic Eye exam: Present: normal appearance. Absent: scleral icterus, conjunctival inj ection ENT exam: Present: mucous membranes dry Neck exam: Present: full ROM. Absent: tenderness Respiratory exam: Present: rhonchi. Absent: respiratory distress, wheezes, rales Cardiovascular Exam: Present: tachycardia, systolic murmur. Absent: diastolic murmur, rubs, gallop GI/Abdominal exam: Present: soft. Absent: tenderness, rebound, rigid, pulsatile mass Extremities exam: Present: pedal edema Neurological exam: Present: altered Skin exam: Present: warm, dry, intact, rash, pallor Course Vital Signs 01/30/20 01/31/20 01/31/20 23:48 00:30 01:20 Temperature 100.7 F H Pulse Rate 130 H 130 H 122 H Pulse Rate [ Pulse Oximetery ] Respiratory 22 22 20 Rate Blood Pressure 96/82 111/90 109/83 Blood Pressure [Left Arm] O2 Sat by Pulse 100 98 98 Oximetry 01/31/20 01/31/20 01/31/20 02:20 03:20 04:05 Temperature Pulse Rate 120 H 120 H 115 H Pulse Rate [ Pulse Oximetery ] Respiratory 20 20 20 Rate Blood Pressure 110/85 113/74 103/79 Blood Pressure [Left Arm] O2 Sat by Pulse 97 96 96 Oximetry 01/31/20 01/31/20 01/31/20 05:30 06:40 08:17 Temperature 97.9 F Pulse Rate 94 92 86 Pulse Rate [ Pulse Oximetery ] Respiratory 20 18 21 Rate Blood Pressure 109/79 115/75 106/68 Blood Pressure [Left Arm] O2 Sat by Pulse 97 97 98 Oximetry 01/31/20 01/31/20 01/31/20 08:53 09:48 11:46 Temperature 97.9 F 98.1 F Pulse Rate 83 88 84 Pulse Rate [ Pulse Oximetery ] Respiratory 20 18 17 Rate Blood Pressure 98/63 94/65 89/49 Blood Pressure [Left Arm] O2 Sat by Pulse 98 98 98 Oximetry 01/31/20 01/31/20 01/31/20 12:28 14:10 22:38 Temperature 97.7 F 97 F L 98 F Pulse Rate 90 Pulse Rate [ 85 76 Pulse Oximetery ] Respiratory 18 18 17 Rate Blood Pressure 130/59 Blood Pressure 110/65 87/51 [Left Arm] O2 Sat by Pulse 100 100 98 Oximetry Medical Decision Making - Medical Decision Making patient's 49-year-old woman from alf mild to appears to be sepsis. Antibiotics and fluid started. In addition will have surgical consult to ensure that the tube is also does not require debridement - Lab Data Result diagrams: 02/02/20 06:18 02/01/20 06:22 Lab Results 01/31/20 01/31/20 01/31/20 Range/Units 00:12 00:35 00:35 WBC 17.5 H (3.8-10.6) k/uL RBC 4.74 (3.80-5.40) m/uL Hgb 13.1 (11.4-16.0) gm/dL Hct 40.6 (34.0-46.0) % MCV 85.6 (80.0-100.0) fL MCH 27.6 (25.0-35.0) pg MCHC 32.2 (31.0-37.0) g/dL RDW 16.4 H (11.5-15.5) % Plt Count 487 H (150-450) k/uL MPV 7.1 Neutrophils % 92 % Lymphocytes % 3 % Monocytes % 4 % Eosinophils % 1 % Basophils % 0 % Neutrophils # 16.0 H (1.3-7.7) k/uL Lymphocytes # 0.5 L (1.0-4.8) k/uL Monocytes # 0.6 (0-1.0) k/uL Eosinophils # 0.1 (0-0.7) k/uL Basophils # 0.1 (0-0.2) k/uL Anisocytosis Slight PT 10.7 (9.0-12.0) sec INR 1.0 (<1.2) APTT 22.9 (22.0-30.0) sec Sodium (137-145) mmol/L Potassium (3.5-5.1) mmol/L Chloride (98-107) mmol/L Carbon Dioxide (22-30) mmol/L Anion Gap mmol/L BUN (7-17) mg/dL Creatinine (0.52-1.04) mg/dL Est GFR (CKD-EPI)AfAm (>60 ml/min/1.73 sqM) Est GFR (CKD-EPI)NonAf (>60 ml/min/1.73 sqM) Glucose (74-99) mg/dL POC Glucose (mg/dL) 156 H (75-99) mg/dL POC Glu Heavy Equipment Mechanic ID Sarah Wasserman Plasma Lactic Acid [place] (0.7-2.0) mmol/L Calcium (8.4-10.2) mg/dL Total Bilirubin (0.2-1.3) mg/dL AST (14-36) U/L ALT (4-34) U/L Alkaline Phosphatase (38-126) U/L Troponin I (0.000-0.034) ng/mL Total Protein (6.3-8.2) g/dL Albumin (3.5-5.0) g/dL Urine Color Urine Appearance (Clear) Urine pH (5.0-8.0) Ur Specific [place] (1.001-1.035) Urine Protein (Negative) Urine Glucose (UA) (Negative) Urine Ketones (Negative) Urine Blood (Negative) Urine Nitrite (Negative) Urine Bilirubin (Negative) Urine Urobilinogen (<2.0) mg/dL Ur Leukocyte Esterase (Negative) Urine RBC (0-5) /hpf Urine WBC (0-5) /hpf Urine WBC Clumps (None) /hpf Ur Squamous Epith Cells (0-4) /hpf Calcium Oxalate Crystal (None) /hpf Amorphous Sediment (None) /hpf Urine Bacteria (None) /hpf Urine Mucus (None) /hpf Coronavirus (PCR) (Not Detectd) Influenza Type A RNA (Not Detectd) Influenza Type B (PCR) (Not Detectd) 01/31/20 01/31/20 01/31/20 Range/Units 00:35 00:35 00:35 WBC (3.8-10.6) k/uL RBC (3.80-5.40) m/uL Hgb (11.4-16.0) gm/dL Hct (34.0-46.0) % MCV (80.0-100.0) fL MCH (25.0-35.0) pg MCHC (31.0-37.0) g/dL RDW (11.5-15.5) % Plt Count (150-450) k/uL MPV Neutrophils % % Lymphocytes % % Monocytes % % Eosinophils % % Basophils % % Neutrophils # (1.3-7.7) k/uL Lymphocytes # (1.0-4.8) k/uL Monocytes # (0-1.0) k/uL Eosinophils # (0-0.7) k/uL Basophils # (0-0.2) k/uL Anisocytosis PT (9.0-12.0) sec INR (<1.2) APTT (22.0-30.0) sec Sodium 134 L (137-145) mmol/L Potassium 4.7 (3.5-5.1) mmol/L Chloride 101 (98-107) mmol/L Carbon Dioxide 21 L (22-30) mmol/L Anion Gap 12 mmol/L BUN 54 H (7-17) mg/dL Creatinine 0.83 (0.52-1.04) mg/dL Est GFR (CKD-EPI)AfAm >90 (>60 ml/min/1.73 sqM) Est GFR (CKD-EPI)NonAf 84 (>60 ml/min/1.73 sqM) Glucose 170 H (74-99) mg/dL POC Glucose (mg/dL) (75-99) mg/dL POC Glu Heavy Equipment Mechanic ID Plasma Lactic Acid [place] 1.4 (0.7-2.0) mmol/L Calcium 9.0 (8.4-10.2) mg/dL Total Bilirubin 1.0 (0.2-1.3) mg/dL AST 19 (14-36) U/L ALT 15 (4-34) U/L Alkaline Phosphatase 388 H (38-126) U/L Troponin I <0.012 (0.000-0.034) ng/mL Total Protein 6.4 (6.3-8.2) g/dL Albumin 3.7 (3.5-5.0) g/dL Urine Color Urine Appearance (Clear) Urine pH (5.0-8.0) Ur Specific [place] (1.001-1.035) Urine Protein (Negative) Urine Glucose (UA) (Negative) Urine Ketones (Negative) Urine Blood (Negative) Urine Nitrite (Negative) Urine Bilirubin (Negative) Urine Urobilinogen (<2.0) mg/dL Ur Leukocyte Esterase (Negative) Urine RBC (0-5) /hpf Urine WBC (0-5) /hpf Urine WBC Clumps (None) /hpf Ur Squamous Epith Cells (0-4) /hpf Calcium Oxalate Crystal (None) /hpf Amorphous Sediment (None) /hpf Urine Bacteria (None) /hpf Urine Mucus (None) /hpf Coronavirus (PCR) (Not Detectd) Influenza Type A RNA (Not Detectd) Influenza Type B (PCR) (Not Detectd) 01/31/20 01/31/20 01/31/20 Range/Units 00:59 00:59 03:50 WBC (3.8-10.6) k/uL RBC (3.80-5.40) m/uL Hgb (11.4-16.0) gm/dL Hct (34.0-46.0) % MCV (80.0-100.0) fL MCH (25.0-35.0) pg MCHC (31.0-37.0) g/dL RDW (11.5-15.5) % Plt Count (150-450) k/uL MPV Neutrophils % % Lymphocytes % % Monocytes % % Eosinophils % % Basophils % % Neutrophils # (1.3-7.7) k/uL Lymphocytes # (1.0-4.8) k/uL Monocytes # (0-1.0) k/uL Eosinophils # (0-0.7) k/uL Basophils # (0-0.2) k/uL Anisocytosis PT (9.0-12.0) sec INR (<1.2) APTT (22.0-30.0) sec Sodium (137-145) mmol/L Potassium (3.5-5.1) mmol/L Chloride (98-107) mmol/L Carbon Dioxide (22-30) mmol/L Anion Gap mmol/L BUN (7-17) mg/dL Creatinine (0.52-1.04) mg/dL Est GFR (CKD-EPI)AfAm (>60 ml/min/1.73 sqM) Est GFR (CKD-EPI)NonAf (>60 ml/min/1.73 sqM) Glucose (74-99) mg/dL POC Glucose (mg/dL) (75-99) mg/dL POC Glu Heavy Equipment Mechanic ID Plasma Lactic Acid [place] (0.7-2.0) mmol/L Calcium (8.4-10.2) mg/dL Total Bilirubin (0.2-1.3) mg/dL AST (14-36) U/L ALT (4-34) U/L Alkaline Phosphatase (38-126) U/L Troponin I <0.012 (0.000-0.034) ng/mL Total Protein (6.3-8.2) g/dL Albumin (3.5-5.0) g/dL Urine Color Yellow Urine Appearance Cloudy H (Clear) Urine pH 8.0 (5.0-8.0) Ur Specific [place] 1.014 (1.001-1.035) Urine Protein Trace H (Negative) Urine Glucose (UA) Negative (Negative) Urine Ketones Negative (Negative) Urine Blood Trace H (Negative) Urine Nitrite Negative (Negative) Urine Bilirubin Negative (Negative) Urine Urobilinogen 2.0 (<2.0) mg/dL Ur Leukocyte Esterase Large H (Negative) Urine RBC 3 (0-5) /hpf Urine WBC 19 H (0-5) /hpf Urine WBC Clumps Few H (None) /hpf Ur Squamous Epith Cells 1 (0-4) /hpf Calcium Oxalate Crystal Rare H (None) /hpf Amorphous Sediment Rare H (None) /hpf Urine Bacteria Occasional H (None) /hpf Urine Mucus Rare H (None) /hpf Coronavirus (PCR) Not Detected (Not Detectd) Influenza Type A RNA Not Detected (Not Detectd) Influenza Type B (PCR) Not Detected (Not Detectd) - EKG Data -: EKG Interpreted by Nd EKG shows normal: sinus rhythm, axis (normal), intervals (normal), QRS complexes (normal), ST-T waves (normal) Rate: tachycardia (rate 129 bpm) Critical Care Time Critical Care Time: Yes (30 minutes) Disposition Clinical Impression: Fever, Sepsis Disposition: ADMITTED IP TO THIS HOSP Condition: Serious
[2020-01-31 01:23] LABS: Amorphous Sediment,Urine Rare /hpf; Appearance,Urine Cloudy (Clear); Bacteria,Urine Occasional /hpf; Bilirubin,Urine Negative (Negative); Blood,Urine Trace (Negative); Calcium Oxalate Crystals,Urine Rare /hpf; Color,Urine Yellow; Glucose,Urine (UA) Negative (Negative); Ketones,Urine Negative (Negative); Leukocyte Esterase,Urine Large (Negative); Mucus,Urine Rare /hpf; Nitrite,Urine Negative (Negative); Protein,Urine Trace (Negative); RBC,Urine 3 /hpf (0-5); Specific Gravity,Urine 1.014 (1.001-1.035); Squamous Epithelial Cell,Urine 1 /hpf (0-4); WBC,Urine 19 /hpf (0-5)
[2020-01-31 01:32] LABS: SARS-CoV-2 RNA Rapid Abbott Not Detected (Not Detectd)
[2020-01-31] MEDS ORDERED: SODIUM CHLORIDE 0.9% 500 ML 500 ML IV STA (04:24)
[2020-01-31] MEDS ORDERED: ACETAMINOPHEN TAB 325 MG TAB PO PRN (04:32)
[2020-01-31] MEDS ORDERED: PROMETHAZINE 25 MG TAB PO PRN (06:00)
[2020-01-31] MEDS: LEVOTHYROXINE 50 MCG TAB PO SCH (06:48)
[2020-01-31] MEDS: FOLIC ACID 1 MG TAB PO SCH (06:48)
[2020-01-31] MEDS: CYANOCOBALAMIN 500 MCG TAB PO SCH (06:48)
[2020-01-31] MEDS: THIAMINE 100 MG TAB PO SCH (06:49)
[2020-01-31] MEDS: GABAPENTIN 300 MG CAP PO SCH ×3 (06:49→19:51)
[2020-01-31] MEDS: BACLOFEN 10 MG TAB PO SCH ×3 (06:49→19:52)
[2020-01-31] MEDS ORDERED: NON FORMULARY DRUG (Cholecalciferol (Vitamin D3) [Vitamin D3] 125 MCG Capsule) PO SCH (07:00)
[2020-01-31] MEDS ORDERED: SENNOSIDES 8.6 MG TAB PO PRN (09:00)
[2020-01-31] MEDS ORDERED: FAMOTIDINE 20 MG/2 ML VIAL IV SCH (09:00)
[2020-01-31] MEDS: PIPERACILLIN-TAZOBACTAM 3.375 GM in SODIUM CHLORIDE 0.9% 100 ML IVPB SCH ×2 (09:12→17:27)
[2020-01-31] MEDS: ASPIRIN 81 MG PO SCH (09:18)
[2020-01-31] MEDS: TORSEMIDE 20 MG TAB PO SCH (09:19)
[2020-01-31] MEDS: FERROUS SULFATE 325 MG TAB PO SCH ×2 (09:22→22:32)
[2020-01-31] MEDS: SPIRONOLACTONE 25 MG TAB PO SCH ×2 (09:37→09:40)
[2020-01-31] MEDS: DIMETHYL FUMARATE 240 MG PO SCH ×2 (09:38→22:27)
--- NOTE | 2020-01-31 12:38 | P.HPIM ---
History of Present Illness This is a pleasant 41 years old female with past medical history of hyperlipidemia, multiple sclrosis , neurogenic bladder secondary to multiple sclerosis, past renal failure needing hemodialysis and pressure ulcer. Patient was sent from her long term for fever, however patient denies other symptoms, no chest pain or dyspnea, no coughing, no diarrhea, no flank or suprapubic pain .she has indwelling Austin catheter for her neurogenic bladder related to her MS While in the emergency room patient had a large black bowel movement and surgery team already evaluated the patient, no need for debridement of her pressure ulcer On the presentation she has low-grade temperature of 100.7, she was tachycardic around 1:30, currently her heart rate is 84, blood pressure is 89/49, her blood pressure is low normal usually systolics in 90s to 100 Labs showed leukocytosis of 17.5 K. Rest of CBC and INR are unremarkable. Sodium slightly low at 134, rest of the BMP is unremarkable. Liver enzymes not elevated. Troponins 2 are negative less than 0.012. Urine analysis is suspicious for infection with high leukocyte esterase. Lorenz virus and influenza versus are not detected. EKG showing sinus tachycardia at [address]-T changes and QTC 413. Chest x-ray: No acute process radiologist. In the emergency room patient was started on Zosyn. Also she was given 2.5 L. Review of Systems CONSTITUTIONAL: No fever, no malaise, no fatigue. HEENT: No recent visual problems or hearing problems. Denied any sore throat. CARDIOVASCULAR: No orthopnea, PND, no palpitations, no syncope. PULMONARY: No shortness of breath, no cough, no hemoptysis. GASTROINTESTINAL: No diarrhea, no nausea, no vomiting, no abdominal pain. Normoactive bowel sounds. NEUROLOGICAL: No headaches, no weakness, no numbness. HEMATOLOGICAL: Denies any bleeding or petechiae. GENITOURINARY: Denies any burning micturition, frequency, or urgency. MUSCULOSKELETAL/RHEUMATOLOGICAL: Denies any joint pain, swelling, or any muscle pain. ENDOCRINE: Denies any polyuria or polydipsia. Past Medical History Past Medical History: Hyperlipidemia, Musculoskeletal Disorder, Neurologic Disorder, Pneumonia, Renal Disease, Skin Disorder Additional Past Medical History / Comment(s): Multiple sclerosis stage IV- wheelchair bound, L side weaker than right, past renal failure with hemodialysis-last time was July 2016, mostly healed sacral decub, sacral osteomylitis, neurogenic bladder with indwelling austin, current UTI, past sepsis, iron deficiency anemia. History of Any Multi-Drug Resistant Organisms: ESBL, MRSA, VRE Date of last positivie culture/infection: 05/22/16 MRSA; 05/18/16 VRE,ESBL 08/27/17, ESBL urine-current MDRO Source:: , ESBL 08/27/17 URINE, MRSA BLOOD Past Surgical History: No Surgical Hx Reported Additional Past Surgical History / Comment(s): LP, debridement decubitus sacral ulcer, hemodialysis cath since removed, picc lines Past Anesthesia/Blood Transfusion Reactions: No Reported Reaction Additional Past Anesthesia/Blood Transfusion Reaction / Comment(s): NEVER HAD ANY GENERAL ANES Past Psychological History: No Psychological Hx Reported Smoking Status: Never smoker Past Alcohol Use History: None Reported Past Drug Use History: None Reported - Past Family History Father History Unknown: Yes Additional Family Medical History / Comment(s): PTS DAD LIVED IN [place]- S HE'S NOT SURE WHAT HE FROM. HE HAD HYPOTENSION. Mother Family Medical History: Coronary Artery Disease (CAD), Diabetes Mellitus, Hyperlipidemia, Hypertension Additional Family Medical History / Comment(s): CARDIAC STENTS Medications and Allergies Home Medications Medication Instructions Recorded Confirmed Type Acetaminophen Tab [Tylenol] 650 mg PO Q6HR PRN 05/17/16 01/31/20 History Folic Acid 1 mg PO DAILY@1600 08/22/16 01/31/20 History Levothyroxine Sodium [Synthroid] 50 mcg PO DAILY@0700 08/22/16 01/31/20 History Ferrous Sulfate [Iron (65 MG 325 mg PO TID@0700,1200,1700 11/03/17 01/31/20 History Elemental)] Cyanocobalamin [Vitamin B-12] 500 mcg PO DAILY@1600 01/12/19 01/31/20 History Potassium Chloride ER [K-Dur 20] 20 meq PO BID 01/12/19 01/31/20 History Spironolactone [Aldactone] 25 mg PO DAILY@0700 01/12/19 01/31/20 History Baclofen [Lioresal] 20 mg PO TID@0700,1300,1900 06/05/19 01/31/20 History Cholecalciferol (Vitamin D3) 125 mcg PO DAILY@1600 06/05/19 01/31/20 History [Vitamin D3] Lansoprazole [Prevacid] 15 mg PO DAILY@1400 06/05/19 01/31/20 History Gabapentin [Neurontin] 300 mg PO TID@0700,1300,1900 #10 06/09/19 01/31/20 Rx cap HYDROcodone/APAP 5-325MG [[place] 1 tab PO Q6H PRN 2 Days #3 tab 06/09/19 01/31/20 Rx 5-325] Aspirin 81 mg PO DAILY@1600 09/15/19 01/31/20 History Dimethyl Fumarate [Tecfidera] 240 mg PO BID 01/31/20 01/31/20 History Multivitamins, Thera [Multivitamin 1 tab PO DAILY@159901/31/20 01/31/20 History (formulary)] Ondansetron [Zofran] 4 mg PO Q8HR PRN 01/31/20 01/31/20 History Pravastatin Sodium [Pravachol] 40 mg PO HS@199901/31/20 01/31/20 History Pro-Stat [place] 30 ml PO TID@0700,1300,1700 01/31/20 01/31/20 History Sennosides [Senna] 8.6 mg PO BID@0700,1600 01/31/20 01/31/20 History Sodium Bicarbonate Tab 650 mg PO TID@0700,1300,1900 01/31/20 01/31/20 History bisacodyL [Bisacodyl] 10 mg RECTAL Q72H PRN 01/31/20 01/31/20 History Allergies Allergy/AdvReac Type Severity Reaction Status Date / Time adhesive tape Allergy Rash/Hives Verified 01/31/20 06:51 cinnamon Allergy Rash/Hives Verified 01/31/20 06:51 Physical Exam Vitals: Vital Signs Temp Pulse Resp BP Pulse Ox 01/31/20 11:46 84 17 89/49 98 01/31/20 09:48 98.1 F 88 18 94/65 98 01/31/20 08:53 97.9 F 83 20 98/63 98 01/31/20 08:17 86 21 106/68 98 01/31/20 06:40 97.9 F 92 18 115/75 97 01/31/20 05:30 94 20 109/79 97 01/31/20 04:05 115 H 20 103/79 96 01/31/20 03:20 120 H 20 113/74 96 01/31/20 02:20 120 H 20 110/85 97 01/31/20 01:20 122 H 20 109/83 98 01/31/20 00:30 130 H 22 111/90 98 01/30/20 23:48 100.7 F H 130 H 22 96/82 100 Intake and Output 01/30/20 01/31/20 01/31/20 22:59 06:59 14:59 Other: Weight 77.111 kg -GENERAL: The patient is alert and oriented x3, not in any acute distress. Obese. Patient is bed ridden HEENT: Pupils are round and equally reacting to light. EOMI. No scleral icterus. No conjunctival pallor. Normocephalic, atraumatic. No pharyngeal erythema. No thyromegaly. CARDIOVASCULAR: S1 and S2 present. No murmurs, rubs, or gallops. PULMONARY: Chest is clear to auscultation, no wheezing or crackles. -ABDOMEN: Soft, nontender, nondistended, normoactive bowel sounds. No palpable organomegaly. Austin catheter is in place MUSCULOSKELETAL: No joint swelling or deformity. EXTREMITIES: No cyanosis, clubbing, or pedal edema. NEUROLOGICAL: Gross neurological examination did not reveal any focal deficits. SKIN: No rashes. No petechiae Results CBC & Chem 7: 01/31/20 00:35 01/31/20 00:35 Labs: Abnormal Lab Results - Last 24 Hours (Table) 01/31/20 01/31/20 01/31/20 Range/Units 00:12 00:35 00:35 WBC 17.5 H (3.8-10.6) k/uL RDW 16.4 H (11.5-15.5) % Plt Count 487 H (150-450) k/uL Neutrophils # 16.0 H (1.3-7.7) k/uL Lymphocytes # 0.5 L (1.0-4.8) k/uL Sodium 134 L (137-145) mmol/L Carbon Dioxide 21 L (22-30) mmol/L BUN 54 H (7-17) mg/dL Glucose 170 H (74-99) mg/dL POC Glucose (mg/dL) 156 H (75-99) mg/dL Alkaline Phosphatase 388 H (38-126) U/L Urine Appearance (Clear) Urine Protein (Negative) Urine Blood (Negative) Ur Leukocyte Esterase (Negative) Urine WBC (0-5) /hpf Urine WBC Clumps (None) /hpf Calcium Oxalate Crystal (None) /hpf Amorphous Sediment (None) /hpf Urine Bacteria (None) /hpf Urine Mucus (None) /hpf 01/31/20 Range/Units 00:59 WBC (3.8-10.6) k/uL RDW (11.5-15.5) % Plt Count (150-450) k/uL Neutrophils # (1.3-7.7) k/uL Lymphocytes # (1.0-4.8) k/uL Sodium (137-145) mmol/L Carbon Dioxide (22-30) mmol/L BUN (7-17) mg/dL Glucose (74-99) mg/dL POC Glucose (mg/dL) (75-99) mg/dL Alkaline Phosphatase (38-126) U/L Urine Appearance Cloudy H (Clear) Urine Protein Trace H (Negative) Urine Blood Trace H (Negative) Ur Leukocyte Esterase Large H (Negative) Urine WBC 19 H (0-5) /hpf Urine WBC Clumps Few H (None) /hpf Calcium Oxalate Crystal Rare H (None) /hpf Amorphous Sediment Rare H (None) /hpf Urine Bacteria Occasional H (None) /hpf Urine Mucus Rare H (None) /hpf Microbiology - Last 24 Hours (Table) 01/31/20 00:59 Urine Culture - Preliminary Urine,Voided Assessment and Plan Assessment: Mild hypotension Sepsis with systemic inflammatory response with fever, leukocytosis, tachycardia and tachypnea Acute complicated UTI, Related to Austin catheter. Present on admission Large black bowel movement, rule out GI bleed history of Left renal calculus about 6 mm with mild to moderate left sided hydronephrosis history of Stage III sacral pressure ulcers with evidence of soft tissue infection and osteomyelitis on CAT scan Fecal impaction Hyperlipidemia Past history of renal failure needing hemodialysis Metabolic encephalopathy Osteoarthritis Neurogenic bladderWith indwelling Austin catheter Plan: This is a pleasant 49 years old female who presents with complicated UTI and sepsis. Rule out GI bleed. Continue with Zosyn and follow-up urine culture. Follow-up recommendation by surgery team. Labs and medication were reviewed.. Continue same treatment. Continue with symptomatic treatment. Resume home medication. Monitor lytes and vitals. DVT and GI prophylaxis. Further recommendations depends on the clinical course of the patient DVT prophylaxis: Subcutaneous heparin GI Prophylaxis: Ppi PT/OT: Pending Prognosis is guarded
[2020-01-31 13:29] LABS: Anisocytosis Slight; HCT 40.2 % (34.0-46.0); HGB 12.7 gm/dL (11.4-16.0); Hypochromasia Slight; MCH 28.1 pg (25.0-35.0); MCHC 31.7 g/dL (31.0-37.0); MCV 88.6 fL (80.0-100.0); Platelet Count 462 k/uL (150-450); RBC 4.54 m/uL (3.80-5.40); RDW 16.3 % (11.5-15.5); WBC 15.2 k/uL (3.8-10.6)
[2020-01-31] MEDS: PANTOPRAZOLE 40 MG/10 ML VIAL IVP SCH (13:34)
--- NOTE | 2020-01-31 14:11 | P.GSCN ---
History of Present Illness Consult date: 01/31/20 History of present illness: CHIEF COMPLAINT: Altered mental status changes HISTORY OF PRESENT ILLNESS: This is a 49-year-old female with a known history of chronic sacral decubitus ulcer with osteomyelitis, multiple sclerosis in which she is wheelchair bound, renal failure needing hemodialysis in the past, and neurogenic bladder secondary to her multiple sclerosis. Patient seen and examined in the emergency room. She was present presented to the emergency room with altered mental status and is being treated for a UTI. Patient had a large black bowel movement in the emergency room. Stat hemoglobin has been ordered. And patient will be scheduled for EGD. She has been having fevers. Hemoglobin did drop from 13.1-12.7. She is on IV Zosyn. Patient is confused. Baseline unknown. Denies any abdominal pain. PAST MEDICAL HISTORY: See list. PAST SURGICAL HISTORY: See list. MEDICATIONS: See list. ALLERGIES: See list. SOCIAL HISTORY: No illicit drug use. REVIEW OF SYSTEMS: CONSTITUTIONAL: Denies fever or chills. HEENT: Denies blurred vision, vision changes, or eye pain. Denies hemoptysis CARDIOVASCULAR: Denies chest pain or pressure. RESPIRATORY: No shortness of breath. GASTROINTESTINAL: See HPI for pertinent findings HEMATOLOGIC: Denies bleeding disorders. GENITOURINARY: Denies any blood in urine or increased urinary frequency. SKIN: Denies pruitis. Denies rash. PHYSICAL EXAM: VITAL SIGNS: Reviewed GENERAL: Well-developed in no acute distress. HEENT: No sclera icterus. Extraocular movements grossly intact. Moist buccal m ucosa. Head is atraumatic, normocephalic. No nasal drainage. ABDOMEN: Soft. Nondistended. Nontender NEUROLOGIC: Confused able to answer a few questions. Skin: Patient has a large chronic sacral decubitus ulcer with granulation tissue LABORATORY DATA: WBC 15.2 hemoglobin has dropped from 13.1-12.7 Flu and Covid negative Stool for occult blood negative IMAGING: Chest x-ray negative ASSESSMENT: 1. Large black bowel movement concerns for possible GI bleed 2. Stage III sacral decubitus ulcer. 3. History of multiple sclerosis and wheelchair-bound 4. Altered mental status and UTI on admission PLAN: -Patient scheduled for EGD tomorrow with Dr. lara -Nothing by mouth after midnight -Continue to monitor hemoglobin -No surgical intervention planned for the sacral decubitus ulcer Thank you for this consultation Physician Optical Lathe Operator note has been reviewed by physician. Signing provider agrees with the documented findings, assessment, and plan of care. Past Medical History Past Medical History: Hyperlipidemia, Musculoskeletal Disorder, Neurologic Disorder, Pneumonia, Renal Disease, Skin Disorder, Thyroid Disorder Additional Past Medical History / Comment(s): Multiple sclerosis stage IV- wheelchair bound, L side weaker than right, past renal failure with hemodialysis-last time was July 2016, hyperkalemia, mostly healed sacral decub, sacral osteomylitis, neurogenic bladder with indwelling austin, recurrent UTIs, past sepsis, iron deficiency anemia, bilateral lower extremity edema, chronic low back pain History of Any Multi-Drug Resistant Organisms: ESBL, MRSA, VRE Year Discovered:: 05/22/16 MRSA; 05/18/16 VRE,ESBL 08/27/17, ESBL urine-current MDRO Source:: , ESBL 08/27/17 URINE, MRSA BLOOD Past Surgical History: No Surgical Hx Reported Additional Past Surgical History / Comment(s): 09/15/19 cystoscopy/lithotripsy/L ureteroscopy and stent placed, past cystos/stents, LP, debridement decubitus sacral ulcer, hemodialysis cath since removed, picc lines Past Anesthesia/Blood Transfusion Reactions: No Reported Reaction Additional Past Anesthesia/Blood Transfusion Reaction / Comm: NEVER HAD ANY GENERAL ANES Smoking Status: Never smoker - Past Family History Father History Unknown: Yes Additional Family Medical History / Comment(s): PTS DAD LIVED IN [place]- SHE'S NOT SURE WHAT HE FROM. HE HAD HYPOTENSION. Mother Family Medical History: Coronary Artery Disease (CAD), Diabetes Mellitus, H yperlipidemia, Hypertension Additional Family Medical History / Comment(s): CARDIAC STENTS Medications and Allergies Home Medications Medication Instructions Recorded Confirmed Type Acetaminophen Tab [Tylenol] 650 mg PO Q6HR PRN 05/17/16 01/31/20 History Folic Acid 1 mg PO DAILY@1600 08/22/16 01/31/20 History Levothyroxine Sodium [Synthroid] 50 mcg PO DAILY@0700 08/22/16 01/31/20 History Ferrous Sulfate [Iron (65 MG 325 mg PO TID@0700,1200,1700 11/03/17 01/31/20 History Elemental)] Cyanocobalamin [Vitamin B-12] 500 mcg PO DAILY@1600 01/12/19 01/31/20 History Potassium Chloride ER [K-Dur 20] 20 meq PO BID 01/12/19 01/31/20 History Spironolactone [Aldactone] 25 mg PO DAILY@0700 01/12/19 01/31/20 History Baclofen [Lioresal] 20 mg PO TID@0700,1300,1900 06/05/19 01/31/20 History Cholecalciferol (Vitamin D3) 125 mcg PO DAILY@1600 06/05/19 01/31/20 History [Vitamin D3] Lansoprazole [Prevacid] 15 mg PO DAILY@1400 06/05/19 01/31/20 History Gabapentin [Neurontin] 300 mg PO TID@0700,1300,1900 #10 06/09/19 01/31/20 Rx cap HYDROcodone/APAP 5-325MG [[place] 1 tab PO Q6H PRN 2 Days #3 tab 06/09/19 01/31/20 Rx 5-325] Aspirin 81 mg PO DAILY@1600 09/15/19 01/31/20 History Dimethyl Fumarate [Tecfidera] 240 mg PO BID 01/31/20 01/31/20 History Multivitamins, Thera [Multivitamin 1 tab PO DAILY@159901/31/20 01/31/20 History (formulary)] Ondansetron [Zofran] 4 mg PO Q8HR PRN 01/31/20 01/31/20 History Pravastatin Sodium [Pravachol] 40 mg PO HS@199901/31/20 01/31/20 History Pro-Stat Awc 30 ml PO TID@0700,1300,1700 01/31/20 01/31/20 History Sennosides [Senna] 8.6 mg PO BID@0700,1600 01/31/20 01/31/20 History Sodium Bicarbonate Tab 650 mg PO TID@0700,1300,1900 01/31/20 01/31/20 History bisacodyL [Bisacodyl] 10 mg RECTAL Q72H PRN 01/31/20 01/31/20 History Allergies Allergy/AdvReac Type Severity Reaction Status Date / Time adhesive tape Allergy Rash/Hives Verified 01/31/20 06:51 cinnamon Allergy Rash/Hives Verified 01/31/20 06:51 Surgical - Exam Vital Signs Temp Pulse Resp BP Pulse Ox 100.7 F H 130 H 22 96/82 100 01/30/20 23:48 01/30/20 23:48 01/30/20 23:48 01/30/20 23:48 01/30/20 23:48 Results - Labs 01/31/20 12:41 01/31/20 00:35 Abnormal Lab Results - Last 24 Hours (Table) 01/31/20 01/31/20 01/31/20 Range/Units 00:12 00:35 00:35 WBC 17.5 H (3.8-10.6) k/uL RDW 16.4 H (11.5-15.5) % Plt Count 487 H (150-450) k/uL Neutrophils # 16.0 H (1.3-7.7) k/uL Lymphocytes # 0.5 L (1.0-4.8) k/uL Sodium 134 L (137-145) mmol/L Carbon Dioxide 21 L (22-30) mmol/L BUN 54 H (7-17) mg/dL Glucose 170 H (74-99) mg/dL POC Glucose (mg/dL) 156 H (75-99) mg/dL Alkaline Phosphatase 388 H (38-126) U/L Urine Appearance (Clear) Urine Protein (Negative) Urine Blood (Negative) Ur Leukocyte Esterase (Negative) Urine WBC (0-5) /hpf Urine WBC Clumps (None) /hpf Calcium Oxalate Crystal (None) /hpf Amorphous Sediment (None) /hpf Urine Bacteria (None) /hpf Urine Mucus (None) /hpf 01/31/20 01/31/20 Range/Units 00:59 12:41 WBC 15.2 H (3.8-10.6) k/uL RDW 16.3 H (11.5-15.5) % Plt Count 462 H (150-450) k/uL Neutrophils # (1.3-7.7) k/uL Lymphocytes # (1.0-4.8) k/uL Sodium (137-145) mmol/L Carbon Dioxide (22-30) mmol/L BUN (7-17) mg/dL Glucose (74-99) mg/dL POC Glucose (mg/dL) (75-99) mg/dL Alkaline Phosphatase (38-126) U/L Urine Appearance Cloudy H (Clear) Urine Protein Trace H (Negative) Urine Blood Trace H (Negative) Ur Leukocyte Esterase Large H (Negative) Urine WBC 19 H (0-5) /hpf Urine WBC Clumps Few H (None) /hpf Calcium Oxalate Crystal Rare H (None) /hpf Amorphous Sediment Rare H (None) /hpf Urine Bacteria Occasional H (None) /hpf Urine Mucus Rare H (None) /hpf Microbiology - Last 24 Hours (Table) 01/31/20 00:59 Urine Culture - Preliminary Urine,Voided Diabetes panel 01/31/20 Range/Units 00:35 Sodium 134 L (137-145) mmol/L Potassium 4.7 (3.5-5.1) mmol/L Chloride 101 (98-107) mmol/L Carbon Dioxide 21 L (22-30) mmol/L BUN 54 H (7-17) mg/dL Creatinine 0.83 (0.52-1.04) mg/dL Glucose 170 H (74-99) mg/dL Calcium 9.0 (8.4-10.2) mg/dL AST 19 (14-36) U/L ALT 15 (4-34) U/L Alkaline Phosphatase 388 H (38-126) U/L Total Protein 6.4 (6.3-8.2) g/dL Albumin 3.7 (3.5-5.0) g/dL Calcium panel 01/31/20 Range/Units 00:35 Calcium 9.0 (8.4-10.2) mg/dL Albumin 3.7 (3.5-5.0) g/dL Pituitary panel 01/31/20 Range/Units 00:35 Sodium 134 L (137-145) mmol/L Potassium 4.7 (3.5-5.1) mmol/L Chloride 101 (98-107) mmol/L Carbon Dioxide 21 L (22-30) mmol/L BUN 54 H (7-17) mg/dL Creatinine 0.83 (0.52-1.04) mg/dL Glucose 170 H (74-99) mg/dL Calcium 9.0 (8.4-10.2) mg/dL Adrenal panel 01/31/20 Range/Units 00:35 Sodium 134 L (137-145) mmol/L Potassium 4.7 (3.5-5.1) mmol/L Chloride 101 (98-107) mmol/L Carbon Dioxide 21 L (22-30) mmol/L BUN 54 H (7-17) mg/dL Creatinine 0.83 (0.52-1.04) mg/dL Glucose 170 H (74-99) mg/dL Calcium 9.0 (8.4-10.2) mg/dL Total Bilirubin 1.0 (0.2-1.3) mg/dL AST 19 (14-36) U/L ALT 15 (4-34) U/L Alkaline Phosphatase 388 H (38-126) U/L Total Protein 6.4 (6.3-8.2) g/dL Albumin 3.7 (3.5-5.0) g/dL
[2020-01-31] MEDS: PRAVASTATIN SODIUM 40 MG TAB PO SCH ×2 (22:35→22:37)
[2020-01-31] MEDS: HYDROcodone/APAP 5-325MG 1 EACH TAB PO PRN (22:42)
[2020-01-31] MEDS: HEPARIN SODIUM,PORCINE 5,000 UNIT/ML 1 ML VIAL SQ SCH (22:46)
[2020-02-01] MEDS: PIPERACILLIN-TAZOBACTAM 3.375 GM in SODIUM CHLORIDE 0.9% 100 ML IVPB SCH ×3 (01:16→17:35)
[2020-02-01 06:48] LABS: Anisocytosis Slight; Basophils # (A) 0.1 k/uL (0-0.2); Basophils % (A) 1 %; Eosinophils # (A) 0.3 k/uL (0-0.7); Eosinophils % (A) 3 %; HCT 40.3 % (34.0-46.0); HGB 12.7 gm/dL (11.4-16.0); Hypochromasia Slight; Lymphocytes # (A) 0.9 k/uL (1.0-4.8); Lymphocytes % (A) 10 %; MCH 27.9 pg (25.0-35.0); MCHC 31.5 g/dL (31.0-37.0); MCV 88.6 fL (80.0-100.0); Monocytes # (A) 0.4 k/uL (0-1.0); Monocytes % (A) 4 %; Neutrophils # (A) 6.6 k/uL (1.3-7.7); Neutrophils % (A) 79 %; Platelet Count 422 k/uL (150-450); RBC 4.55 m/uL (3.80-5.40); RDW 16.1 % (11.5-15.5); WBC 8.4 k/uL (3.8-10.6)
[2020-02-01] MEDS: DIMETHYL FUMARATE 240 MG PO SCH ×2 (07:50→23:51)
[2020-02-01] MEDS: THIAMINE 100 MG TAB PO SCH (07:59)
[2020-02-01] MEDS: ASPIRIN 81 MG PO SCH (07:59)
[2020-02-01] MEDS: PANTOPRAZOLE 40 MG/10 ML VIAL IVP SCH (07:59)
[2020-02-01] MEDS: FERROUS SULFATE 325 MG TAB PO SCH ×2 (07:59→20:00)
[2020-02-01] MEDS: BACLOFEN 10 MG TAB PO SCH ×3 (07:59→19:59)
[2020-02-01] MEDS: GABAPENTIN 300 MG CAP PO SCH ×3 (08:00→20:00)
[2020-02-01] MEDS: SPIRONOLACTONE 25 MG TAB PO SCH (08:00)
[2020-02-01] MEDS: TORSEMIDE 20 MG TAB PO SCH (08:00)
[2020-02-01] MEDS: CYANOCOBALAMIN 500 MCG TAB PO SCH (08:00)
[2020-02-01] MEDS: LEVOTHYROXINE 50 MCG TAB PO SCH (08:00)
[2020-02-01] MEDS: FOLIC ACID 1 MG TAB PO SCH (08:00)
[2020-02-01] MEDS: HEPARIN SODIUM,PORCINE 5,000 UNIT/ML 1 ML VIAL SQ SCH ×2 (08:00→19:59)
[2020-02-01 09:24] LABS: African American GFR (CKD) >90 (>60 ml/min/1.73 sqM); Anion Gap 8 mmol/L; Blood Urea Nitrogen 30 mg/dL (7-17); Calcium 9.4 mg/dL (8.4-10.2); Carbon Dioxide 24 mmol/L (22-30); Chloride 111 mmol/L (98-107); Glucose 122 mg/dL (74-99); Non-African American GFR(CKD) >90 (>60 ml/min/1.73 sqM); Potassium 3.8 mmol/L (3.5-5.1); Sodium 143 mmol/L (137-145)
[2020-02-01 10:20] LABS: BUN/Creat Ratio 41.43 Ratio (12.00-20.00)
[2020-02-01] MEDS ORDERED: PROPOFOL 10 MG/ML 20 ML VIAL IV ONE (12:46)
[2020-02-01] MEDS ORDERED: IV FLUID CONTINUATION 1,000 ML IV ONE (12:48)
--- NOTE | 2020-02-01 12:57 | P.OP ---
Date of Procedure: 02/01/20 Preoperative Diagnosis: GI bleed Postoperative Diagnosis: Antral gastritis Procedure(s) Performed: EGD Anesthesia: MAC Surgeon: Frank Oliveros Pathology: other (Antrum) Condition: stable Disposition: PACU Description of Procedure: The patient's placed on the endoscopy table in the lateral position. She received IV sedation. The gastroscope placed oropharynx passed in the esophagus into the stomach. Scope was then placed through the pylorus. The first and second portion of duodenum appeared normal. Scope was then brought back and the antrum there is obvious inflammation. This was biopsied. The scope was unretroflexed and remainder of the stomach appeared normal. The GE junction was at 47 is. The distal esophagus appeared normal. The proximal esophagus appeared normal. Scope was withdrawn for patient.
[2020-02-01 15:06] VITALS: BMI 25.8
[2020-02-01] MEDS: PRAVASTATIN SODIUM 40 MG TAB PO SCH (19:59)
[2020-02-01] MEDS: HYDROcodone/APAP 5-325MG 1 EACH TAB PO PRN (19:59)
[2020-02-02] MEDS: PIPERACILLIN-TAZOBACTAM 3.375 GM in SODIUM CHLORIDE 0.9% 100 ML IVPB SCH ×3 (01:46→16:26)
[2020-02-02] MEDS: THIAMINE 100 MG TAB PO SCH (08:10)
[2020-02-02] MEDS: LEVOTHYROXINE 50 MCG TAB PO SCH (08:10)
[2020-02-02] MEDS: GABAPENTIN 300 MG CAP PO SCH ×3 (08:10→21:24)
[2020-02-02] MEDS: HEPARIN SODIUM,PORCINE 5,000 UNIT/ML 1 ML VIAL SQ SCH ×2 (08:10→21:25)
[2020-02-02] MEDS: ASPIRIN 81 MG PO SCH (08:11)
[2020-02-02] MEDS: FOLIC ACID 1 MG TAB PO SCH (08:11)
[2020-02-02] MEDS: TORSEMIDE 20 MG TAB PO SCH (08:11)
[2020-02-02] MEDS: BACLOFEN 10 MG TAB PO SCH ×3 (08:11→21:24)
[2020-02-02] MEDS: SPIRONOLACTONE 25 MG TAB PO SCH (08:12)
[2020-02-02] MEDS: FERROUS SULFATE 325 MG TAB PO SCH ×2 (08:12→21:24)
[2020-02-02] MEDS: PANTOPRAZOLE 40 MG TABLET PO SCH (08:12)
[2020-02-02] MEDS: CYANOCOBALAMIN 500 MCG TAB PO SCH (08:12)
[2020-02-02 08:13] LABS: Basophils # (A) 0.1 k/uL (0-0.2); Basophils % (A) 1 %; Eosinophils # (A) 0.2 k/uL (0-0.7); Eosinophils % (A) 3 %; HCT 37.6 % (34.0-46.0); HGB 11.9 gm/dL (11.4-16.0); Hypochromasia Slight; Lymphocytes # (A) 0.8 k/uL (1.0-4.8); Lymphocytes % (A) 12 %; MCH 28.1 pg (25.0-35.0); MCHC 31.6 g/dL (31.0-37.0); MCV 88.9 fL (80.0-100.0); Monocytes # (A) 0.3 k/uL (0-1.0); Monocytes % (A) 4 %; Neutrophils # (A) 4.8 k/uL (1.3-7.7); Neutrophils % (A) 76 %; Platelet Count 422 k/uL (150-450); RBC 4.23 m/uL (3.80-5.40); RDW 15.9 % (11.5-15.5); WBC 6.3 k/uL (3.8-10.6)
[2020-02-02] MEDS: DIMETHYL FUMARATE 240 MG PO SCH ×2 (08:13→21:22)
[2020-02-02 09:43] LABS: African American GFR (CKD) 118.7 (60.0-200.0); Anion Gap 14.1 mmol/L (4.00-12.00); BUN/Creat Ratio 28.57 Ratio (12.00-20.00); Calcium 9.4 mg/dL (8.7-10.3); Carbon Dioxide 22.9 mmol/L (21.6-31.8); Non-African American GFR(CKD) 102.5 (60.0-200.0); Potassium 3.6 mmol/L (3.5-5.5)
--- NOTE | 2020-02-02 10:02 | P.PN ---
Subjective This is a pleasant 41 years old female with past medical history of hyperlipidemia, multiple sclrosis , neurogenic bladder secondary to multiple scl erosis, past renal failure needing hemodialysis and pressure ulcer. [facility], however patient denies other symptoms, no chest pain or dyspnea, no coughing, no diarrhea, no flank or suprapubic pain .she has indwelling Chaves catheter for her neurogenic bladder related to her MS While in the emergency room patient had a large black bowel movement and surgery team already evaluated the patient, no need for debridement of her pressure ulcer On the presentation she has low-grade temperature of 100.7, she was tachycardic around 1:30, currently her heart rate is 84, blood pressure is 89/49, her blood pressure is low normal usually systolics in 90s to 100 Labs showed leukocytosis of 17.5 K. Rest of CBC and INR are unremarkable. Sodium slightly low at 134, rest of the BMP is unremarkable. Liver enzymes not elevated. Troponins 2 are negative less than 0.012. Urine analysis is suspicious for infection with high leukocyte esterase. Lorenz virus and influenza versus are not detected. EKG showing sinus tachycardia at [address]-T changes and QTC 413. Chest x-ray: No acute process radiologist. In the emergency room patient was started on Zosyn. Also she was given 2.5 L. 02/01/2020 Patient is a pleasant 49 years old female who presented with hypotension and sepsis with UTI. Patient is started on IV fluids and antibiotics , her Chaves catheter has been changed yesterday in the emergency room. Today she is more alert and awake and more interactive than yesterday, high blood pressure is improved. No overt urinary symptoms, no abdominal pain, no nausea vomiting. Fever subsided and Vitas looks stable. Surgery team had EGD done for the patient today for her large black bowel movement yesterday, showing mild gastritis. Hemoglobin normal Urine culture is still pending, patient has become remains on Zosyn Review of Systems CONSTITUTIONAL: No fever, no malaise, no fatigue. HEENT: No recent visual problems or hearing problems. Denied any sore throat. CARDIOVASCULAR: No orthopnea, PND, no palpitations, no syncope. PULMONARY: No shortness of breath, no cough, no hemoptysis. GASTROINTESTINAL: No diarrhea, no nausea, no vomiting, no abdominal pain. Normoactive bowel sounds. NEUROLOGICAL: No headaches, no weakness, no numbness. Active Medications Generic Name Dose Route Start Last Admin Trade Name Freq PRN Reason Stop Dose Admin Acetaminophen 650 mg 01/31/20 04:32 Acetaminophen Tab 325 Mg Tab PO Q6HR PRN Pain Hydrocodone Bitart/Acetaminophen 1 each 01/31/20 04:32 02/01/20 19:59 Hydrocodone/Apap 5-325mg 1 Each Tab PO 1 each Q6H PRN Administration Pain Aspirin 81 mg 01/31/20 09:00 02/02/20 08:11 Aspirin 81 Mg PO 81 mg DAILY [facility] Administration Baclofen 20 mg 01/31/20 07:00 02/02/20 08:11 Baclofen 10 Mg Tab PO 20 mg TID@0700,1300,1900 [facility] Administration Cyanocobalamin 500 mcg 01/31/20 07:00 02/02/20 08:12 Cyanocobalamin 500 Mcg Tab PO 500 mcg DAILY@0700 [facility] Administration Ferrous Sulfate 325 mg 01/31/20 09:00 02/02/20 08:12 Ferrous Sulfate 325 Mg Tab PO 325 mg BID [facility] Administration Folic Acid 1 mg 01/31/20 07:00 02/02/20 08:11 Folic Acid 1 Mg Tab PO 1 mg DAILY@0700 [facility] Administration Gabapentin 300 mg 01/31/20 07:00 02/02/20 08:10 Gabapentin 300 Mg Cap PO 300 mg TID@0700,1300,1900 [facility] Administration Heparin Sodium (Porcine) 5,000 unit 01/31/20 21:00 02/02/20 08:10 Heparin Sodium,Porcine 5,000 Unit/Ml 1 Ml Vial SQ 5,000 unit Q12HR [facility] Administration Piperacillin Sod/Tazobactam 100 mls @ 25 mls/hr 01/31/20 09:00 02/02/20 08:09 Sod 3.375 gm/ Sodium Chloride IVPB 25 mls/hr Q8H [facility] Administration Lactated Ringer's 1,000 mls @ 20 mls/hr 02/02/20 09:50 Lactated Ringers IV .Q24H [facility] Levothyroxine Sodium 50 mcg 01/31/20 07:00 02/02/20 08:10 Levothyroxine 50 Mcg Tab PO 50 mcg DAILY@0700 [facility] Administration Non-Formulary Medication 240 mg 01/31/20 09:00 02/02/20 08:13 Dimethyl Fumarate [Tecfidera] PO Not Given BID YANIRA Pantoprazole Sodium 40 mg 02/02/20 09:00 02/02/20 08:12 Pantoprazole 40 Mg Tablet PO 40 mg DAILY [facility] Administration Pravastatin Sodium 40 mg 01/31/20 21:00 02/01/20 19:59 Pravastatin Sodium 40 Mg Tab PO 40 mg HS [facility] Administration Promethazine HCl 12.5 mg 01/31/20 06:00 Promethazine 25 Mg Tab PO Q6H PRN Nausea And Vomiting Senna 8.6 mg 01/31/20 09:00 Sennosides 8.6 Mg Tab PO BID PRN Constipation Spironolactone 25 mg 01/31/20 09:00 02/02/20 08:12 Spironolactone 25 Mg Tab PO 25 mg DAILY [facility]IR[facility] Administration Thiamine HCl 100 mg 01/31/20 07:00 02/02/20 08:10 Thiamine 100 Mg Tab PO 100 mg DAILY@0700 [facility] Administration Torsemide 80 mg 01/31/20 09:00 02/02/20 08:11 Torsemide 20 Mg Tab PO 80 mg DAILY [facility]IR[facility] Administration Objective - Vital Signs Vital signs: Vital Signs Temp 98.4 F 02/01/20 15:00 Pulse 96 02/01/20 15:00 Resp 16 02/01/20 15:00 BP 115/79 02/01/20 15:00 Pulse Ox 98 02/01/20 15:00 Intake & Output 01/31/20 02/01/20 02/01/20 18:59 06:59 18:59 Output Total 519 347 8236 Balance -500 -800 -1400 Weight 77.111 kg 77.111 kg Output: Urine 091 918 [id number] Uretheral (Chaves) 500 Other: Voiding Method Indwelling Catheter Indwelling Catheter # Bowel Movements 1 - Exam -GENERAL: The patient is alert and oriented x3, not in any acute distress. Obese. Patient is bed ridden HEENT: Pupils are round and equally reacting to light. EOMI. No scleral icterus. No conjunctival pallor. Normocephalic, atraumatic. No pharyngeal erythema. No thyromegaly. CARDIOVASCULAR: S1 and S2 present. No murmurs, rubs, or gallops. PULMONARY: Chest is clear to auscultation, no wheezing or crackles. -ABDOMEN: Soft, nontender, nondistended, normoactive bowel sounds. No palpable organomegaly. Chaves catheter is in place MUSCULOSKELETAL: No joint swelling or deformity. EXTREMITIES: No cyanosis, clubbing, or pedal edema. -NEUROLOGICAL: Gross neurological examination did not reveal any focal deficits. Chronic contractures of the upper extremities, mainly on the left side SKIN: No rashes. No petechiae - Labs CBC & Chem 7: 02/02/20 06:18 02/02/20 06:18 Labs: Abnormal Lab Results - Last 24 Hours (Table) 02/01/20 02/01/20 Range/Units 06:22 06:22 RDW 16.1 H (11.5-15.5) % Lymphocytes # 0.9 L (1.0-4.8) k/uL Chloride 111 H (98-107) mmol/L BUN 30 H (7-17) mg/dL BUN/Creatinine Ratio 41.43 H (12.00-20.00) Ratio Glucose 122 H (74-99) mg/dL Microbiology - Last 24 Hours (Table) 01/31/20 00:35 Blood Culture - Preliminary Blood No Growth after 24 hours 01/31/20 00:35 Blood Culture - Preliminary Blood No Growth after 24 hours Assessment and Plan Assessment: Sepsis with systemic inflammatory response with fever, leukocytosis, tachycardia and tachypnea Acute complicated UTI, Related to Chaves catheter. Present on admission Mild hypotension , improving Large black bowel movement, EGD: Mild gastritis history of Left renal calculus about 6 mm with mild to moderate left sided hydronephrosis history of Stage III sacral pressure ulcers with evidence of soft tissue infection and osteomyelitis on CAT scan Fecal impaction Hyperlipidemia Past history of renal failure needing hemodialysis Metabolic encephalopathy Osteoarthritis Neurogenic bladderWith indwelling Chaves catheter Plan: This is a pleasant 49 years old female who presents with complicated UTI and sepsis. . Continue with Zosyn and follow-up urine culture. Follow-up recommendation by surgery team. Labs and medication were reviewed.. Continue same treatment. Continue with symptomatic treatment. Resume home medication. Monitor lytes and vitals. DVT and GI prophylaxis. Further recommendations depends on the clinical course of the patient DVT prophylaxis: Subcutaneous heparin GI Prophylaxis: Ppi PT/OT: Pending Prognosis is guarded
--- NOTE | 2020-02-02 10:56 | P.PN ---
Subjective Progress Note Date: 02/02/20 CHIEF COMPLAINT: Altered mental status changes HISTORY OF PRESENT ILLNESS: Patient is being followed for her chronic sacral decubitus ulcer and episode of black stool in the emergency room. Patient had E GD completed yesterday which revealed antral gastritis no evidence of bleeding. Ekgqdicaoy10.7 down to 11.9. WBC 6.3 fecal occult blood negative. Patient does take iron. She denies any abdominal pain. Denies a nausea or vomiting. Patient is more awake today and answering questions. Afebrile PHYSICAL EXAM: VITAL SIGNS: Reviewed. GENERAL: Well-developed in no acute distress. HEENT: No sclera icterus. Extraocular movements grossly intact. Moist buccal mucosa. Head is atraumatic, normocephalic. ABDOMEN: Soft. Obese. Nondistended. Nontender. NEUROLOGIC: Alert and oriented. Cranial nerves II through XII grossly intact. ASSESSMENT: 1. Large black bowel movement in ER. Status post EGD revealing mild gastritis. No evidence of bleeding. Hemoglobin is stable. Patient does take oral iron 2. Stage III chronic sacral decubitus ulcer 3. History of multiple sclerosis and wheelchair-bound 4. Altered mental status and UTI on admission PLAN: -No surgical intervention planned for the sacral decubitus ulcer -Continue to keep pressure off the sacral area -Rotate patient -Antibiotics per medicine -Continue Protonix Physician Psychiatric Security Nurse note has been reviewed by physician. Signing provider agrees with the documented findings, assessment, and plan of care. Objective - Vital Signs Vital signs: Vital Signs Temp 98.4 F 02/02/20 07:00 Pulse 88 02/02/20 07:00 Resp 16 02/02/20 07:00 BP 116/79 02/02/20 07:00 Pulse Ox 94 L 02/02/20 07:00 Intake & Output 02/01/20 02/02/20 02/02/20 18:59 06:59 18:59 Output Total 1400 1000 Balance -1400 -1000 Weight 77.111 kg Output: Urine 1400 1000 Other: Voiding Method Indwelling Catheter Indwelling Catheter # Bowel Movements 1 - Labs CBC & Chem 7: 02/02/20 06:18 02/02/20 06:18 Labs: Abnormal Lab Results - Last 24 Hours (Table) 02/02/20 02/02/20 Range/Units 06:18 06:18 RDW 15.9 H (11.5-15.5) % Lymphocytes # 0.8 L (1.0-4.8) k/uL Sodium 146 H (135-145) mmol/L Anion Gap 14.10 H (4.00-12.00) mmol/L BUN/Creatinine Ratio 28.57 H (12.00-20.00) Ratio Glucose 118 H (70-110) mg/dL Microbiology - Last 24 Hours (Table) 01/31/20 00:35 Blood Culture - Preliminary Blood No Growth after 48 hours 01/31/20 00:35 Blood Culture - Preliminary Blood No Growth after 48 hours
[2020-02-02] MEDS: LACTATED RINGERS 1,000 ML IV SCH (16:25)
--- NOTE | 2020-02-02 18:34 | P.PN ---
Subjective Progress Note Date: 02/02/20 41 years old female with past medical history of hyperlipidemia, multiple sclrosis , neurogenic bladder secondary to multiple sclerosis, past renal failure needing hemodialysis and pressure ulcer. [facility], however patient denies other symptoms, no chest pain or dyspnea, no coughing, no diarrhea, no flank or suprapubic pain .she has indwelling Chaves catheter for her neurogenic bladder related to her MS While in the emergency room patient had a large black bowel movement and surgery team already evaluated the patient, no need for debridement of her pressure ulcer 02/02/2020 Patient is seen and evaluated in follow-up for chronic decubitus ulcer and black tarry stools; patient had EGD done yesterday which revealed antral gastritis; hemoglobin remained stable Objective - Vital Signs Vital signs: Vital Signs Temp 98.4 F 02/02/20 07:00 Pulse 88 02/02/20 07:00 Resp 16 02/02/20 07:00 BP 116/79 02/02/20 07:00 Pulse Ox 94 L 02/02/20 07:00 Intake & Output 02/01/20 02/02/20 02/02/20 18:59 06:59 18:59 Output Total 1400 1000 Balance -1400 -1000 Weight 77.111 kg Output: Urine 1400 1000 Other: Voiding Method Indwelling Catheter Indwelling Catheter # Bowel Movements 1 - Exam PHYSICAL EXAM: VITAL SIGNS: Reviewed. GENERAL: Well-developed in no acute distress. HEENT: No sclera icterus. Extraocular movements grossly intact. Moist buccal mucosa. Head is atraumatic, normocephalic. ABDOMEN: Soft. Obese. Nondistended. Nontender. NEUROLOGIC: Alert and oriented. Cranial nerves II through XII grossly intact. - Labs CBC & Chem 7: 02/02/20 06:18 02/02/20 06:18 Labs: Abnormal Lab Results - Last 24 Hours (Table) 02/02/20 02/02/20 Range/Units 06:18 06:18 RDW 15.9 H (11.5-15.5) % Lymphocytes # 0.8 L (1.0-4.8) k/uL Sodium 146 H (135-145) mmol/L Anion Gap 14.10 H (4.00-12.00) mmol/L BUN/Creatinine Ratio 28.57 H (12.00-20.00) Ratio Glucose 118 H (70-110) mg/dL Microbiology - Last 24 Hours (Table) 01/31/20 00:35 Blood Culture - Preliminary Blood No Growth after 48 hours 01/31/20 00:35 Blood Culture - Preliminary Blood No Growth after 48 hours Assessment and Plan Assessment: Sepsis with systemic inflammatory response with fever, leukocytosis, tachycardia and tachypnea Acute complicated UTI, Related to Chaves catheter. Present on admission Mild hypotension , improving Large black bowel movement, EGD: Mild gastritis history of Left renal calculus about 6 mm with mild to moderate left sided hydronephrosis history of Stage III sacral pressure ulcers with evidence of soft tissue in fection and osteomyelitis on CAT scan Fecal impaction Hyperlipidemia Past history of renal failure needing hemodialysis Metabolic encephalopathy Osteoarthritis Neurogenic bladderWith indwelling Chaves catheter Plan: This is a pleasant 49 years old female who presents with complicated UTI and sepsis. . Continue with Zosyn and follow-up urine culture. Follow-up recomme ndation by surgery team. Labs and medication were reviewed.. Continue same treatment. Continue with symptomatic treatment. Resume home medication. Monitor lytes and vitals. DVT and GI prophylaxis. Further recommendations depends on the clinical course of the patient DVT prophylaxis: Subcutaneous heparin GI Prophylaxis: Ppi PT/OT: Pending Prognosis is guarded
[2020-02-02] MEDS: HYDROcodone/APAP 5-325MG 1 EACH TAB PO PRN (23:28)
[2020-02-03] MEDS: PIPERACILLIN-TAZOBACTAM 3.375 GM in SODIUM CHLORIDE 0.9% 100 ML IVPB SCH ×3 (01:43→21:38)
[2020-02-03 06:51] LABS: Basophils # (A) 0.1 k/uL (0-0.2); Basophils % (A) 1 %; Eosinophils # (A) 0.1 k/uL (0-0.7); Eosinophils % (A) 2 %; HCT 37.9 % (34.0-46.0); HGB 11.9 gm/dL (11.4-16.0); Hypochromasia Slight; Lymphocytes # (A) 1.2 k/uL (1.0-4.8); Lymphocytes % (A) 24 %; MCH 26.9 pg (25.0-35.0); MCHC 31.4 g/dL (31.0-37.0); MCV 85.8 fL (80.0-100.0); Mean Platelet Volume 7.2; Monocytes # (A) 0.2 k/uL (0-1.0); Monocytes % (A) 4 %; Neutrophils # (A) 3.3 k/uL (1.3-7.7); Neutrophils % (A) 65 %; Platelet Count 446 k/uL (150-450); RBC 4.41 m/uL (3.80-5.40); RDW 15.9 % (11.5-15.5); WBC 5.1 k/uL (3.8-10.6)
[2020-02-03] MEDS: THIAMINE 100 MG TAB PO SCH (07:55)
[2020-02-03] MEDS: GABAPENTIN 300 MG CAP PO SCH ×3 (07:55→19:49)
[2020-02-03] MEDS: CYANOCOBALAMIN 500 MCG TAB PO SCH (07:55)
[2020-02-03] MEDS: TORSEMIDE 20 MG TAB PO SCH (07:55)
[2020-02-03] MEDS: PANTOPRAZOLE 40 MG TABLET PO SCH (07:55)
[2020-02-03] MEDS: BACLOFEN 10 MG TAB PO SCH ×3 (07:56→19:49)
[2020-02-03] MEDS: ASPIRIN 81 MG PO SCH (07:56)
[2020-02-03] MEDS: HYDROcodone/APAP 5-325MG 1 EACH TAB PO PRN ×2 (07:56→19:54)
[2020-02-03] MEDS: SPIRONOLACTONE 25 MG TAB PO SCH (07:56)
[2020-02-03] MEDS: LEVOTHYROXINE 50 MCG TAB PO SCH (07:56)
[2020-02-03] MEDS: FERROUS SULFATE 325 MG TAB PO SCH ×2 (07:56→19:49)
[2020-02-03] MEDS: FOLIC ACID 1 MG TAB PO SCH (07:56)
[2020-02-03] MEDS: HEPARIN SODIUM,PORCINE 5,000 UNIT/ML 1 ML VIAL SQ SCH ×2 (07:57→19:49)
[2020-02-03] MEDS: DIMETHYL FUMARATE 240 MG PO SCH ×2 (08:07→19:49)
[2020-02-03 09:43] LABS: African American GFR (CKD) 118.7 (60.0-200.0); Anion Gap 12.3 mmol/L (4.00-12.00); BUN/Creat Ratio 25.71 Ratio (12.00-20.00); Calcium 9.3 mg/dL (8.7-10.3); Carbon Dioxide 29.7 mmol/L (21.6-31.8); Non-African American GFR(CKD) 102.5 (60.0-200.0); Potassium 2.9 mmol/L (3.5-5.5)
[2020-02-03] MEDS: POTASSIUM CHLORIDE ER 10 MEQ TAB.ER.PRT PO SCH (14:44)
[2020-02-03] MEDS: POTASSIUM CHLORIDE 10 MEQ in WATER FOR INJECTION 1 100ML.BAG IVPB SCH ×3 (14:44→19:48)
--- NOTE | 2020-02-03 15:34 | P.PN ---
Subjective Progress Note Date: 02/03/20 CHIEF COMPLAINT: GI Bleed HISTORY OF PRESENT ILLNESS: The patient is a 49-year-old female who initially presented with GI bleed. She is status post upper endoscopy with findings of gastritis. She is tolerating diet. She denies any bloody bowel movements today. She had pizza for lunch and enjoyed her meal. ROS: No reports of nausea and vomiting. No fevers or chills. No new chest pain. No productive sputum PHYSICAL EXAM: VITAL SIGNS: Reviewed CONSTITUTIONAL: Well developed and in no acute distress. EYES: Conjuctivae without sclera icterus. Extraocular movements grossly intact. HEAD, EARS, NOSE, THROAT: Moist buccal mucosa. Head is atraumatic, normocephalic. Hears conversational speech. No nasal drainage. NECK: Supple. No thyroidomegaly. RESPIRATORY: Non-labored respirations and equal bilateral excursions. CARDIOVASCULAR: Palpable 2+ radial pulses. ABDOMEN: No peritonitis. Nontender. MUSCULOSKELETAL: No clubbing. No cyanosis. SKIN: Good skin turgor. Well perfused. NEUROLOGIC: Cranial nerves II through XII grossly intact. No focal or lateralizing signs. PSYCH: Appropriate affect. Alert and oriented to person, place and time. CLINICAL LABS: White blood cell count normal 5.1. Hgb 11.9 ASSESSMENT: 1. History of GI Bleed 2. Multiple sclerosis PLAN: 1. Continue Protonix for history of gastritis 2. Monitor for Hgb drop Objective - Vital Signs Vital signs: Vital Signs Temp 97.6 F 02/03/20 07:00 Pulse 79 02/03/20 08:10 Resp 20 02/03/20 08:10 BP 110/74 02/03/20 07:00 Pulse Ox 96 02/03/20 07:00 Intake & Output 02/02/20 02/03/20 02/03/20 18:59 06:59 18:59 Output Total 1999 475 1400 Balance -1999 Output: Urine 1999 475 1400 Other: Voiding Method Indwelling Catheter Indwelling Catheter Indwelling Catheter - Labs CBC & Chem 7: 02/03/20 06:22 02/03/20 06:22 Labs: Abnormal Lab Results - Last 24 Hours (Table) 02/03/20 02/03/20 Range/Units 06:22 06:22 RDW 15.9 H (11.5-15.5) % Potassium 2.9 L (3.5-5.5) mmol/L Anion Gap 12.30 H (4.00-12.00) mmol/L BUN/Creatinine Ratio 25.71 H (12.00-20.00) Ratio Glucose 122 H (70-110) mg/dL Microbiology - Last 24 Hours (Table) 01/31/20 00:59 Urine Culture - Final Urine,Voided Proteus mirabilis 01/31/20 00:35 Blood Culture - Preliminary Blood No Growth after 72 hours 01/31/20 00:35 Blood Culture - Preliminary Blood No Growth after 72 hours Assessment and Plan (1) GI bleed Current Visit: Yes Status: Acute Code(s): K92.2 - GASTROINTESTINAL HEMORRHAGE, UNSPECIFIED SNOMED Code(s): 76356398 (2) Gastritis Current Visit: Yes Status: Acute Code(s): K29.70 - GASTRITIS, UNSPECIFIED, WITHOUT BLEEDING SNOMED Code(s): 1170671 (3) Multiple sclerosis Current Visit: No Status: Acute Code(s): G35 - MULTIPLE SCLEROSIS SNOMED Code(s): 11496453
[2020-02-03] MEDS: LACTATED RINGERS 1,000 ML IV SCH (19:42)
[2020-02-03] MEDS: PRAVASTATIN SODIUM 40 MG TAB PO SCH (19:49)
[2020-02-04] MEDS: PIPERACILLIN-TAZOBACTAM 3.375 GM in SODIUM CHLORIDE 0.9% 100 ML IVPB SCH ×3 (02:59→16:25)
[2020-02-04] MEDS: TORSEMIDE 20 MG TAB PO SCH (08:48)
[2020-02-04] MEDS: PANTOPRAZOLE 40 MG TABLET PO SCH (08:49)
[2020-02-04] MEDS: ASPIRIN 81 MG PO SCH (08:49)
[2020-02-04] MEDS: THIAMINE 100 MG TAB PO SCH (08:49)
[2020-02-04] MEDS: LEVOTHYROXINE 50 MCG TAB PO SCH (08:49)
[2020-02-04] MEDS: FOLIC ACID 1 MG TAB PO SCH (08:49)
[2020-02-04] MEDS: HYDROcodone/APAP 5-325MG 1 EACH TAB PO PRN ×3 (08:49→22:27)
[2020-02-04] MEDS: GABAPENTIN 300 MG CAP PO SCH ×3 (08:49→21:13)
[2020-02-04] MEDS: POTASSIUM CHLORIDE ER 10 MEQ TAB.ER.PRT PO SCH (08:49)
[2020-02-04] MEDS: CYANOCOBALAMIN 500 MCG TAB PO SCH (08:49)
[2020-02-04] MEDS: FERROUS SULFATE 325 MG TAB PO SCH ×2 (08:50→21:13)
[2020-02-04] MEDS: HEPARIN SODIUM,PORCINE 5,000 UNIT/ML 1 ML VIAL SQ SCH ×2 (08:50→21:13)
[2020-02-04] MEDS: BACLOFEN 10 MG TAB PO SCH ×3 (08:50→21:13)
[2020-02-04] MEDS: SPIRONOLACTONE 25 MG TAB PO SCH (08:50)
[2020-02-04] MEDS: DIMETHYL FUMARATE 240 MG PO SCH ×2 (10:31→21:52)
[2020-02-04 11:43] LABS: African American GFR (CKD) 118.7 (60.0-200.0); Anion Gap 12.7 mmol/L (4.00-12.00); BUN/Creat Ratio 21.43 Ratio (12.00-20.00); Calcium 9.3 mg/dL (8.7-10.3); Carbon Dioxide 28.3 mmol/L (21.6-31.8); Non-African American GFR(CKD) 102.5 (60.0-200.0); Potassium 3.6 mmol/L (3.5-5.5)
--- NOTE | 2020-02-04 12:20 | P.PN ---
Subjective Progress Note Date: 02/03/20 Principal diagnosis: Acute complicated UTI/ Sepsis GI bleed; status post EGD- gastritis 41 years old female with past medical history of hyperlipidemia, multiple sclrosis , neurogenic bladder secondary to multiple sclerosis, past renal failure needing hemodialysis and pressure ulcer. Patient was sent from her [facility] for fever, however patient denies other symptoms, no chest pain or dyspnea, no coughing, no diarrhea, no flank or suprapubic pain .she has indwelling Chaves catheter for her neurogenic bladder related to her MS While in the emergency room patient had a large black bowel movement and surgery team already evaluated the patient, no need for debridement of her pressure ulcer 02/02/2020 Patient is seen and evaluated in follow-up for chronic decubitus ulcer and black tarry stools; patient had EGD done yesterday which revealed antral gastritis; hemoglobin remained stable 02/03/2020; Patient is seen and evaluated in room at bedside; patient is more of 8 and responsive this morning; vital signs are reviewed and stable Lab review reveals potassium 2.9; CBC reveals a stable WBC of 5.1 which is improved from 15.2 upon admission; hemoglobin stable at 11.90 Patient will be transfused with 30 mEq of KCl IV 1 along with 20 mg of oral potassium; we will monitor electrolytes closely Urine culture reveals Proteus; patient remains on IV Zosyn; patient can be switched to oral Augmentin in next 24 hours to complete a total of 10 day course of therapy Objective - Vital Signs Vital signs: Vital Signs Temp 97.6 F 02/03/20 07:00 Pulse 79 02/03/20 08:10 Resp 20 02/03/20 08:10 BP 110/74 02/03/20 07:00 Pulse Ox 96 02/03/20 07:00 Intake & Output 02/02/20 02/03/20 02/03/20 18:59 06:59 18:59 Output Total 1999 Balance -1999 Output: Urine 1999 Other: Voiding Method Indwelling Catheter Indwelling Catheter Indwelling Catheter - Exam PHYSICAL EXAM: VITAL SIGNS: Reviewed. GENERAL: Well-developed in no acute distress. HEENT: No sclera icterus. Extraocular movements grossly intact. Moist buccal mucosa. Head is atraumatic, normocephalic. ABDOMEN: Soft. Obese. Nondistended. Nontender. NEUROLOGIC: Alert and oriented. Cranial nerves II through XII grossly intact. - Labs CBC & Chem 7: 02/03/20 06:22 02/04/20 06:37 Labs: Abnormal Lab Results - Last 24 Hours (Table) 02/03/20 02/03/20 Range/Units 06:22 06:22 RDW 15.9 H (11.5-15.5) % Potassium 2.9 L (3.5-5.5) mmol/L Anion Gap 12.30 H (4.00-12.00) mmol/L BUN/Creatinine Ratio 25.71 H (12.00-20.00) Ratio Glucose 122 H (70-110) mg/dL Microbiology - Last 24 Hours (Table) 01/31/20 00:59 Urine Culture - Final Urine,Voided Proteus mirabilis 01/31/20 00:35 Blood Culture - Preliminary Blood No Growth after 72 hours 01/31/20 00:35 Blood Culture - Preliminary Blood No Growth after 72 hours Assessment and Plan Assessment: Sepsis with systemic inflammatory response with fever, leukocytosis, tachycardia and tachypnea Acute complicated UTI, Related to Chaves catheter. Present on admission Mild hypotension , improving Large black bowel movement, EGD: Mild gastritis history of Left renal calculus about 6 mm with mild to moderate left sided hydronephrosis history of Stage III sacral pressure ulcers with evidence of soft tissue infection and osteomyelitis on CAT scan Fecal impaction Hyperlipidemia Past history of renal failure needing hemodialysis Metabolic encephalopathy Osteoarthritis Neurogenic bladderWith indwelling Chaves catheter Plan: This is a pleasant 49 years old female who presents with complicated UTI and sepsis. . Continue with Zosyn and follow-up urine culture. Follow-up recommendation by surgery team. Labs and medication were reviewed.. Continue same treatment. Continue with symptomatic treatment. Resume home medication. Monitor lytes and vitals. DVT and GI prophylaxis. Further recommendations depends on the clinical course of the patient DVT prophylaxis: Subcutaneous heparin GI Prophylaxis: Ppi PT/OT: Pending Prognosis is guarded
[2020-02-04] MEDS: LACTATED RINGERS 1,000 ML IV SCH (14:34)
--- NOTE | 2020-02-04 18:40 | P.PN ---
Subjective Progress Note Date: 02/04/20 Principal diagnosis: Acute complicated UTI/ Sepsis GI bleed; status post EGD- gastritis 41 years old female with past medical history of hyperlipidemia, multiple sclrosis , neurogenic bladder secondary to multiple sclerosis, past renal failure needing hemodialysis and pressure ulcer. Patient was sent from her residential for fever, however patient denies other symptoms, no chest pain or dyspnea, no coughing, no diarrhea, no flank or suprapubic pain .she has indwelling Chaves catheter for her neurogenic bladder related to her MS While in the emergency room patient had a large black bowel movement and surgery team already evaluated the patient, no need for debridement of her pressure ulcer 02/02/2020 Patient is seen and evaluated in follow-up for chronic decubitus ulcer and black tarry stools; patient had EGD done yesterday which revealed antral gastritis; hemoglobin remained stable 02/03/2020; Patient is seen and evaluated in room at bedside; patient is more of 8 and responsive this morning; vital signs are reviewed and stable Lab review reveals potassium 2.9; CBC reveals a stable WBC of 5.1 which is improved from 15.2 upon admission; hemoglobin stable at 11.90 Patient will be transfused with 30 mEq of KCl IV 1 along with 20 mg of oral potassium; we will monitor electrolytes closely Urine culture reveals Proteus; patient remains on IV Zosyn; patient can be switched to oral Augmentin in next 24 hours to complete a total of 10 day course of therapy 02/04/2020 Patient is seen and evaluated resting comfortably in bed; vital signs are stable; labs are reviewed and reveal a stable potassium level of 3.6 from 2.9 yesterday Patient stable to be discharged to skilled rehab; remains on IV Zosyn which cleansed be switched to Augmentin at time of discharge Objective - Vital Signs Vital signs: Vital Signs Temp 98.3 F 02/04/20 07:00 Pulse 67 02/04/20 08:15 Resp 20 02/04/20 08:15 BP 113/71 02/04/20 07:00 Pulse Ox 97 02/04/20 07:00 Intake & Output 02/03/20 02/04/20 02/04/20 18:59 06:59 18:59 Output Total 2100 1450 Balance -2100 -1450 Output: Urine 2100 1450 Other: Voiding Method Indwelling Catheter Indwelling Catheter Indwelling Catheter # Bowel Movements 0 - Exam PHYSICAL EXAM: VITAL SIGNS: Reviewed. GENERAL: Well-developed in no acute distress. HEENT: No sclera icterus. Extraocular movements grossly intact. Moist buccal mucosa. Head is atraumatic, normocephalic. ABDOMEN: Soft. Obese. Nondistended. Nontender. NEUROLOGIC: Alert and oriented. Cranial nerves II through XII grossly intact. - Labs CBC & Chem 7: 02/03/20 06:22 02/04/20 06:37 Labs: Abnormal Lab Results - Last 24 Hours (Table) 02/04/20 Range/Units 06:37 Anion Gap 12.70 H (4.00-12.00) mmol/L BUN/Creatinine Ratio 21.43 H (12.00-20.00) Ratio Glucose 116 H (70-110) mg/dL Microbiology - Last 24 Hours (Table) 01/31/20 00:35 Blood Culture - Preliminary Blood No Growth after 96 hours 01/31/20 00:35 Blood Culture - Preliminary Blood No Growth after 96 hours 01/31/20 00:59 Urine Culture - Final Urine,Voided Proteus mirabilis Assessment and Plan Assessment: Sepsis with systemic inflammatory response with fever, leukocytosis, tachycardia and tachypnea Acute complicated UTI, Related to Chaves catheter. Present on admission Mild hypotension , improving Large black bowel movement, EGD: Mild gastritis history of Left renal calculus about 6 mm with mild to moderate left sided hydronephrosis history of Stage III sacral pressure ulcers with evidence of soft tissue infecti on and osteomyelitis on CAT scan Fecal impaction Hyperlipidemia Past history of renal failure needing hemodialysis Metabolic encephalopathy Osteoarthritis Neurogenic bladderWith indwelling Chaves catheter Plan: This is a pleasant 49 years old female who presents with complicated UTI and sepsis. . Continue with Zosyn and follow-up urine culture. Follow-up recommendation by surgery team. Labs and medication were reviewed.. Continue same treatment. Continue with s ymptomatic treatment. Resume home medication. Monitor lytes and vitals. DVT and GI prophylaxis. Further recommendations depends on the clinical course of the patient DVT prophylaxis: Subcutaneous heparin GI Prophylaxis: Ppi PT/OT: Pending Prognosis is guarded
[2020-02-04] MEDS: PRAVASTATIN SODIUM 40 MG TAB PO SCH (21:13)
[2020-02-05] MEDS: PIPERACILLIN-TAZOBACTAM 3.375 GM in SODIUM CHLORIDE 0.9% 100 ML IVPB SCH ×3 (02:23→17:06)
[2020-02-05] MEDS: LEVOTHYROXINE 50 MCG TAB PO SCH (05:47)
[2020-02-05] MEDS: CYANOCOBALAMIN 500 MCG TAB PO SCH (05:47)
[2020-02-05] MEDS: THIAMINE 100 MG TAB PO SCH (05:47)
[2020-02-05] MEDS: BACLOFEN 10 MG TAB PO SCH ×2 (05:47→12:02)
[2020-02-05] MEDS: FOLIC ACID 1 MG TAB PO SCH (05:48)
[2020-02-05] MEDS: GABAPENTIN 300 MG CAP PO SCH ×2 (05:48→12:02)
[2020-02-05] MEDS: HYDROcodone/APAP 5-325MG 1 EACH TAB PO PRN ×2 (05:48→12:03)
[2020-02-05] MEDS: DIMETHYL FUMARATE 240 MG PO SCH (08:03)
[2020-02-05] MEDS: PANTOPRAZOLE 40 MG TABLET PO SCH (08:09)
[2020-02-05] MEDS: TORSEMIDE 20 MG TAB PO SCH (08:09)
[2020-02-05] MEDS: FERROUS SULFATE 325 MG TAB PO SCH (08:09)
[2020-02-05] MEDS: SPIRONOLACTONE 25 MG TAB PO SCH (08:09)
[2020-02-05] MEDS: ASPIRIN 81 MG PO SCH (08:09)
[2020-02-05] MEDS: POTASSIUM CHLORIDE ER 10 MEQ TAB.ER.PRT PO SCH (08:09)
[2020-02-05] MEDS: HEPARIN SODIUM,PORCINE 5,000 UNIT/ML 1 ML VIAL SQ SCH (08:10)
[2020-02-05 09:35] LABS: African American GFR (CKD) 87.6 (60.0-200.0); BUN/Creat Ratio 21.11 Ratio (12.00-20.00); Calcium 9.5 mg/dL (8.7-10.3); Non-African American GFR(CKD) 75.6 (60.0-200.0); Potassium 3.2 mmol/L (3.5-5.5)
--- NOTE | 2020-02-05 11:07 | P.PN ---
Progress Note - Text Progress Note Date: 02/05/20 Patient's resting comfortably in her bed. She denies any significant abdominal pain. On exam vital signs are stable. Abdomen soft. There is no significant tenderness. Resolving gastritis. Patient be discharged home per medicine.
[2020-02-05 14:51] VITALS: BP 135/82; PULSE 88; RESP 19; TEMP 97.9
--- NOTE | 2020-02-05 16:24 | P.DS ---
Providers Date of admission: 01/31/20 04:30 Expected date of discharge: 02/05/20 Attending physician: Clementine Mc Consults: 01/31/20 04:30 Consult Physician Routine Consulting Provider: Frank Oliveros Consult Reason/Comments: decubitus ulcer Do you want consulting provider notified?: Yes Primary care physician: Chace [facility] Course: Discharge diagnosis Sepsis with systemic inflammatory response with fever, leukocytosis, tachycardia and tachypnea Acute complicated UTI, Related to Chaves catheter. Present on admission . Urine culture showed Proteus mirabilis. Mild hypotension , improving Large black bowel movement, EGD: Mild gastritis. Hemoglobin is stable. history of Left renal calculus about 6 mm with mild to moderate left sided hydronephrosis Stage III sacral pressure ulcers with evidence of soft tissue infection and osteomyelitis on CAT scan Fecal impaction Hyperlipidemia Past history of renal failure needing hemodialysis Metabolic encephalopathy Osteoarthritis Neurogenic bladderWith indwelling Chaves catheter Hospital course 41 years old female with past medical history of hyperlipidemia, multiple sclrosis , neurogenic bladder secondary to multiple sclerosis, past renal failure needing hemodialysis and pressure ulcer. [facility] for [facility], however patient denies other symptoms, no chest pain or dyspnea, no coughing, no diarrhea, no flank or suprapubic pain .she has indwelling Chaves catheter for her neurogenic bladder related to her MS While in the emergency room patient had a large black bowel movement and surgery team already evaluated the patient, no need for debridement of her pressure ulcer 02/02/2020 Patient is seen and evaluated in follow-up for chronic decubitus ulcer and black tarry stools; patient had EGD done yesterday which revealed antral gastritis; hemoglobin remained stable 02/03/2020; Patient is seen and evaluated in room at bedside; patient is more of 8 and responsive this morning; vital signs are reviewed and stable Lab review reveals potassium 2.9; CBC reveals a stable WBC of 5.1 which is improved from 15.2 upon admission; hemoglobin stable at 11.90 Patient will be transfused with 30 mEq of KCl IV 1 along with 20 mg of oral potassium; we will monitor electrolytes closely Urine culture reveals Proteus; patient remains on IV Zosyn; patient can be switched to oral Augmentin in next 24 hours to complete a total of 10 day course of therapy 02/04/2020 Patient is seen and evaluated resting comfortably in bed; vital signs are stable; labs are reviewed and reveal a stable potassium level of 3.6 from 2.9 yesterday Patient stable to be discharged to skilled rehab; remains on IV Zosyn which cleansed be switched to Augmentin at time of discharge. 02/05/2020 Patient is currently lying in the bed comfortably. Awake alert oriented 3. Patient is bedridden due to history of multiple sclerosis. Patient has been afebrile. Continued on antibiotics in the form of Zosyn for urinary tract infection and sepsis. Antibiotics will be changed to ceftriaxone. Urine culture showed Proteus species. Patient is status post EGD showed antral gastritis. Continue with Protonix for 6 weeks. Patient is otherwise hemodynamically stable and is being discharged back to extended care facility. PHYSICAL EXAMINATION: Patient is lying in the bed comfortably, no acute distress, awake alert and oriented.. HEENT: Normocephalic. Neck is supple. Pupils reactive. Nostrils clear. Oral cavity is moist. Ears reveal no drainage. Neck reveals no JVD, carotid bruits, or thyromegaly. CHEST EXAMINATION: Trachea is central. Symmetrical expansion. Lung jennings clear to auscultation and percussion. CARDIAC: Normal S1, S2 with no gallops. No murmurs ABDOMEN: Soft. Bowel sounds normal. No organomegaly. No abdominal bruits. Stage III decubitus ulcers. No evidence of infection. Extremities: reveal no edema. No clubbing or cyanosis Neurologically awake, alert, oriented x3. Patient does have bilateral lower the bases. Skin: No rash or skin lesions. Psychiatric: Coperative. Nonsuicidal Musculoskeletal: No joint swelling or deformity. Vital Signs 02/05/20 14:51 Temperature 97.9 F Pulse Rate [ 88 Pulse Oximetery ] Respiratory 19 Rate Blood Pressure 135/82 [Right Arm] O2 Sat by Pulse 95 Oximetry Total time taken greater than 35 minutes including 18 minutes for counseling and coordination of care. Patient Condition at Discharge: Serious Plan - Discharge Summary Discharge Rx Participant: No New Discharge Prescriptions: New Pantoprazole [Protonix] 40 mg PO DAILY 42 Days #42 tablet. cefTRIAXone [Rocephin] 1,000 mg IVP Q24HR 5 Days #5 vial Continue Acetaminophen Tab [Tylenol] 650 mg PO Q6HR PRN PRN Reason: Pain Folic Acid 1 mg PO DAILY@1600 Levothyroxine Sodium [Synthroid] 50 mcg PO DAILY@0700 Ferrous Sulfate [Iron (65 MG Elemental)] 325 mg PO TID@0700,1200,1700 Cyanocobalamin [Vitamin B-12] 500 mcg PO DAILY@1600 Potassium Chloride ER [K-Dur 20] 20 meq PO BID Spironolactone [Aldactone] 25 mg PO DAILY@0700 Cholecalciferol (Vitamin D3) [Vitamin D3] 125 mcg PO DAILY@1600 Baclofen [Lioresal] 20 mg PO TID@0700,1300,1900 Aspirin 81 mg PO DAILY@1600 bisacodyL [Bisacodyl] 10 mg RECTAL Q72H PRN PRN Reason: Constipation Ondansetron [Zofran] 4 mg PO Q8HR PRN PRN Reason: Nausea And Vomiting Pro-Stat Awc 30 ml PO TID@0700,1300,1700 Dimethyl Fumarate [Tecfidera] 240 mg PO BID Sennosides [Senna] 8.6 mg PO BID@0700,1600 Pravastatin Sodium [Pravachol] 40 mg PO HS@2000 Multivitamins, Thera [Multivitamin (formulary)] 1 tab PO DAILY@1600 Gabapentin [Neurontin] 300 mg PO TID@0700,1300,1900 #10 cap HYDROcodone/APAP 5-325MG [Leigh 5-325] 1 tab PO Q6H PRN 2 Days #3 tab PRN Reason: Pain Discontinued Lansoprazole [Prevacid] 15 mg PO DAILY@1400 Sodium Bicarbonate Tab 650 mg PO TID@0700,1300,1900 Discharge Medication List Acetaminophen Tab [Tylenol] 650 mg PO Q6HR PRN 05/17/16 [History] Folic Acid 1 mg PO DAILY@1600 08/22/16 [History] Levothyroxine Sodium [Synthroid] 50 mcg PO DAILY@0700 08/22/16 [History] Ferrous Sulfate [Iron (65 MG Elemental)] 325 mg PO TID@0700,1200,1700 11/03/17 [History] Cyanocobalamin [Vitamin B-12] 500 mcg PO DAILY@1600 01/12/19 [History] Potassium Chloride ER [K-Dur 20] 20 meq PO BID 01/12/19 [History] Spironolactone [Aldactone] 25 mg PO DAILY@0700 01/12/19 [History] Baclofen [Lioresal] 20 mg PO TID@0700,1300,1900 06/05/19 [History] Cholecalciferol (Vitamin D3) [Vitamin D3] 125 mcg PO DAILY@159906/05/19 [History] Aspirin 81 mg PO DAILY@159909/15/19 [History] Dimethyl Fumarate [Tecfidera] 240 mg PO BID 01/31/20 [History] Multivitamins, Thera [Multivitamin (formulary)] 1 tab PO DAILY@159901/31/20 [History] Ondansetron [Zofran] 4 mg PO Q8HR PRN 01/31/20 [History] Pravastatin Sodium [Pravachol] 40 mg PO HS@199901/31/20 [History] Pro-Stat Awc 30 ml PO TID@0700,1300,1700 01/31/20 [History] Sennosides [Senna] 8.6 mg PO BID@0700,1600 01/31/20 [History] bisacodyL [Bisacodyl] 10 mg RECTAL Q72H PRN 01/31/20 [History] Gabapentin [Neurontin] 300 mg PO TID@0700,1300,1900 #10 cap 02/05/20 [Rx] HYDROcodone/APAP 5-325MG [Leigh 5-325] 1 tab PO Q6H PRN 2 Days #3 tab 02/05/20 [Rx] Pantoprazole [Protonix] 40 mg PO DAILY 42 Days #42 tablet. 02/05/20 [Rx] cefTRIAXone [Rocephin] 1,000 mg IVP Q24HR 5 Days #5 vial 02/05/20 [Rx] Follow up Appointment(s)/Referral(s): Chace Mojica MD [Primary Care Provider] - 1-2 days ([facility] ) Discharge Disposition: TRANSFER TO SNF/ECF
== END 2020-02-05 18:37 | DRG 698 ==
LOC: EC 23:47 → 6NMEDSUR 01-31 04:30 → 4SSUR 01-31 18:27
PROVIDERS: ADMIT Hospitalist; ATTEND Hospitalist
PROC: 0DB78ZX Excision of Stomach, Pylorus, Via Natural or Artificial Opening Endoscopic, Diagnostic (ICD-10-PCS; principal; 2020-02-01 07:30)
PROC: 05HF33Z Insertion of Infusion Device into Left Cephalic Vein, Percutaneous Approach (ICD-10-PCS; 2020-02-05 14:35)
DX: T83.511A Infection and inflammatory reaction due to indwelling urethral catheter, initial encounter (principal); A41.59 Other Gram-negative sepsis; G93.41 Metabolic encephalopathy; L89.153 Pressure ulcer of sacral region, stage 3; M46.28 Osteomyelitis of vertebra, sacral and sacrococcygeal region; K92.2 Gastrointestinal hemorrhage, unspecified; I95.9 Hypotension, unspecified; N39.0 Urinary tract infection, site not specified; G35 Multiple sclerosis; K56.41 Fecal impaction; N31.8 Other neuromuscular dysfunction of bladder; Z20.828 Contact with and (suspected) exposure to other viral communicable diseases; K29.70 Gastritis, unspecified, without bleeding; E07.9 Disorder of thyroid, unspecified; E78.5 Hyperlipidemia, unspecified; L08.89 Other specified local infections of the skin and subcutaneous tissue; G89.29 Other chronic pain; M54.5 Low back pain; M19.90 Unspecified osteoarthritis, unspecified site; E66.9 Obesity, unspecified; Z68.25 Body mass index [BMI] 25.0-25.9, adult; Z79.82 Long term (current) use of aspirin; Z79.890 Hormone replacement therapy; Z79.899 Other long term (current) drug therapy; Z86.2 Personal history of diseases of the blood and blood-forming organs and certain disorders involving the immune mechanism; Z87.01 Personal history of pneumonia (recurrent); Z87.442 Personal history of urinary calculi; Z99.3 Dependence on wheelchair; Z86.14 Personal history of Methicillin resistant Staphylococcus aureus infection; Z71.3 Dietary counseling and surveillance; Z86.19 Personal history of other infectious and parasitic diseases; Z74.01 Bed confinement status; Z91.018 Allergy to other foods; Z91.048 Other nonmedicinal substance allergy status; Y84.6 Urinary catheterization as the cause of abnormal reaction of the patient, or of later complication, without mention of misadventure at the time of the procedure; Z87.440 Personal history of urinary (tract) infections; Z82.49 Family history of ischemic heart disease and other diseases of the circulatory system; Z83.3 Family history of diabetes mellitus; Z83.49 Family history of other endocrine, nutritional and metabolic diseases
CPT/HCPCS: 36410; 36415; 43239; 71045; 76937; 80048; 80053; 81001; 82272; 83605; 84484; 84703; 85025; 85027; 85610; 85730; 87040; 87077; 87086; 87186; 87502; 87635; 88305; 93005; 96361; 96365; 96366; 96375; 99291

== ENCOUNTER → 2020-03-07 | Outpatient (CLI) | payer OTHER ==
--- NOTE | 2020-03-07 14:01 | MR ---
EXAMINATION TYPE: MR brain/cspine wo/w DATE OF EXAM: 03/07/2020 COMPARISON: Prior MRI brain September 02, 2018 HISTORY: Multiple sclerosis. Worsening weakness. TECHNIQUE: Multiplanar, multisequence images of the brain and brainstem along the cervical spine are all perform ed without and with IV contrast, utilizing 13 mL intravenous Gadavist gadolinium contrast is administ ered intravenously. Demyelinating disease protocol with additional Sagittal Flair sequence brain and brainstem and PD sagittal sequence cervical spine performed. FINDINGS: Exam remain suboptimal as is degraded by patient motion. BRAIN: T2 Lesions Present : Yes Approximate Number of Lesions: Approximately 60-70 Locations Identified : Scattered including brainstem involvement Size of Reference Lesion(s): 1. 8 x 7 x 7 mm on axial image 19 and sagittal image 9 stable left frontal periventricular lesion 2 6 x 6 x 7 mm on axial image 22 and sagittal image 18 right frontoparietal pericallosal lesions stab le Enhancing Lesion(s) Present: No T1 Hypointense Lesion(s) Present: Yes Change from Prior: Stable Diffusion weighted images demonstrate no evidence of a recent infarct or other diffusion abnormality. There is no worrisome extra-axial fluid collection. Mild ventricular and sulcal prominence remains present. Midline structures demonstrate normal morphology. The craniocervical junction appears within normal limits. Post contrast images demonstrate no abnormal enhancement. The dural venous sinuses appear pa tent. The visualized sinuses are clear and the globes are intact. IMPRESSION: Moderate to severe white matter changes presumed on basis of known multiple sclerosis red emonstrated. No significant interval change. No new or enhancing lesions are present. C-SPINE: FINDINGS: Sagittal images of the cervical spine show the craniocervical junction to main within samara l limits. The cervical and upper thoracic spinal cord is remains normal in caliber. Significant art ifact degradation limits evaluation for small T2 hyperintense plaques. Vertebral alignment is stable and satisfactory. The vertebral body and intravertebral disk heights are grossly maintained. The bradley ne marrow signal intensity is within normal limits. No abnormal postcontrast enhancement clearly seen . There is tiny disc herniation C6-C7 level mildly effacing the anterior thecal sac. Significant artifa ct degradation on axial images limits evaluation for T2 hyperintense cord lesions. IMPRESSION: Markedly suboptimal study, no obvious change from prior MRI. Limited detection for new de myelinating plaques noted.
== END | disposition home or self-care (01) ==
LOC: RADMRIMAIN 12:07
PROVIDERS: ATTEND Psychiatry & Neurology Neurology
DX: R90.82 White matter disease, unspecified (principal); M54.2 Cervicalgia
CPT/HCPCS: 70553; 72156; A9585

== ENCOUNTER 2020-03-08 06:01 | Inpatient (IN) | payer OTHER ==
[2020-03-08] MEDS ORDERED: SODIUM CHLORIDE 0.9% 2,000 ML IV ONE (06:43)
[2020-03-08] MEDS ORDERED: ACETAMINOPHEN TAB 325 MG TAB PO STA (06:44)
--- NOTE | 2020-03-08 06:46 | ED ---
General Adult HPI - General Source: patient, EMS, RN notes reviewed Mode of arrival: EMS Limitations: no limitations <Robel Garcia - Last Filed: 03/08/20 08:03> <Deuce López - Last Filed: 03/08/20 08:10> - General Chief complaint: Recheck/Abnormal Lab/Rx Stated complaint: Sepsis Time Seen by Provider: 03/08/20 06:07 - History of Present Illness Initial comments: This a 49-year-old female presents emergency from via EMS from [facility] for possible sepsis. Patient found to have tachycardia, fever. Patient has chronic indwelling Austin catheter secondary to non-mobile from a mass. Patient states that she's been [place] for 3 years. Patient has no specific complaints herself. Denies any chest pain, shortness breath, headache, dizziness, abdominal pain. Patient does state that he urine is cloudy. Patient provides minimal information. Minimal report from staff. (Robel Garcia) - Related Data Home Medications Medication Instructions Recorded Confirmed Acetaminophen Tab [Tylenol] 650 mg PO Q6HR PRN 05/17/16 03/08/20 Folic Acid 1 mg PO DAILY@1600 08/22/16 03/08/20 Levothyroxine Sodium [Synthroid] 50 mcg PO DAILY@0700 08/22/16 03/08/20 Ferrous Sulfate [Iron (65 MG 325 mg PO TID@0700,1300,1900 11/03/17 03/08/20 Elemental)] Cyanocobalamin [Vitamin B-12] 500 mcg PO DAILY@1600 01/12/19 03/08/20 Potassium Chloride ER [K-Dur 20] 20 meq PO BID@0700,1600 01/12/19 03/08/20 Spironolactone [Aldactone] 25 mg PO DAILY@0700 01/12/19 03/08/20 Baclofen [Lioresal] 20 mg PO TID@0700,1300,1900 06/05/19 03/08/20 Cholecalciferol (Vitamin D3) 125 mcg PO DAILY@1600 06/05/19 03/08/20 [Vitamin D3] Aspirin 81 mg PO DAILY@1600 09/15/19 03/08/20 Multivitamins, Thera [Multivitamin 1 tab PO DAILY@1600 01/31/20 03/08/20 (formulary)] Ondansetron [Zofran] 4 mg PO Q8HR PRN 01/31/20 03/08/20 Pravastatin Sodium [Pravachol] 40 mg PO HS@199901/31/20 03/08/20 Pro-Stat Awc 30 ml PO TID@0700,1300,1700 01/31/20 03/08/20 Sennosides [Senna] 8.6 mg PO BID@0700,1600 01/31/20 03/08/20 bisacodyL [Bisacodyl] 10 mg RECTAL Q72H PRN 01/31/20 03/08/20 Dimethyl Fumarate [Tecfidera] 240 mg PO BID@0700,1600 03/08/20 03/08/20 Torsemide [Demadex] 20 mg PO BID@0700,1600 03/08/20 03/08/20 Previous Rx's Medication Instructions Recorded Gabapentin [Neurontin] 300 mg PO TID@0700,1300,1900 #10 02/05/20 cap HYDROcodone/APAP 5-325MG [[place] 1 tab PO Q6H PRN 2 Days #3 tab 02/05/20 5-325] Pantoprazole [Protonix] 40 mg PO DAILY 42 Days #42 02/05/20 tablet. Allergies Allergy/AdvReac Type Severity Reaction Status Date / Time adhesive tape Allergy Rash/Hives Verified 03/08/20 07:34 cinnamon Allergy Rash/Hives Verified 03/08/20 07:34 Review of Systems ROS Other: All systems not noted in ROS Statement are negative. <Robel Garcia - Last Filed: 03/08/20 08:03> ROS Other: All systems not noted in ROS Statement are negative. <Deuce López - Last Filed: 03/08/20 08:10> ROS Statement: Those systems with pertinent positive or pertinent negative responses have been documented in the HPI. Past Medical History Past Medical History: Hyperlipidemia, Musculoskeletal Disorder, Neurologic Disorder, Pneumonia, Renal Disease, Skin Disorder Additional Past Medical History / Comment(s): Multiple sclerosis stage IV- wheelchair bound, L side weaker than right, past renal failure with hemodialysis-last time was July 2016, mostly healed sacral decub, sacral os teomylitis, neurogenic bladder with indwelling austin, current UTI, past sepsis, iron deficiency anemia. History of Any Multi-Drug Resistant Organisms: ESBL, MRSA, VRE Date of last positivie culture/infection: 05/22/16 MRSA; 05/18/16 VRE,ESBL 08/27/17, ESBL urine-current MDRO Source:: , ESBL 08/27/17 URINE, MRSA BLOOD Past Surgical History: No Surgical Hx Reported Additional Past Surgical History / Comment(s): LP, debridement decubitus sacral ulcer, hemodialysis cath since removed, picc lines Past Anesthesia/Blood Transfusion Reactions: No Reported Reaction Additional Past Anesthesia/Blood Transfusion Reaction / Comment(s): NEVER HAD ANY GENERAL ANES Past Psychological History: No Psychological Hx Reported Smoking Status: Never smoker Past Alcohol Use History: None Reported Past Drug Use History: None Reported - Past Family History Father History Unknown: Yes Additional Family Medical History / Comment(s): PTS DAD LIVED IN [place]- SHE 'S NOT SURE WHAT HE FROM. HE HAD HYPOTENSION. Mother Family Medical History: Coronary Artery Disease (CAD), Diabetes Mellitus, Hyperlipidemia, Hypertension Additional Family Medical History / Comment(s): CARDIAC STENTS <Robel Garcia - Last Filed: 03/08/20 08:03> General Exam Limitations: physical limitation General appearance: alert, in no apparent distress Head exam: Present: atraumatic, normocephalic, normal inspection Eye exam: Present: normal appearance, PERRL, EOMI. Absent: scleral icterus, conjunctival injection, periorbital swelling ENT exam: Present: normal exam, normal oropharynx, mucous membranes moist Neck exam: Present: normal inspection, full ROM. Absent: tenderness, meningismus, lymphadenopathy Respiratory exam: Present: normal lung sounds bilaterally. Absent: respiratory distress, wheezes, rales, rhonchi, stridor Cardiovascular Exam: Present: normal rhythm, tachycardia, normal heart sounds. Absent: systolic murmur, diastolic murmur, rubs, gallop, clicks GI/Abdominal exam: Present: soft, normal bowel sounds. Absent: distended, tenderness, guarding, rebound, rigid Extremities exam: Present: pedal edema Neurological exam: Present: alert, oriented X3 Skin exam: Present: warm, dry, intact, normal color. Absent: rash <Robel Garcia - Last Filed: 03/08/20 08:03> Course <Deuce López - Last Filed: 03/08/20 08:10> Vital Signs 03/08/20 03/08/20 03/08/20 06:05 07:12 07:46 Temperature 99.6 F Pulse Rate 127 H 117 H 103 H Respiratory 18 18 18 Rate Blood Pressure 101/68 100/62 97/64 O2 Sat by Pulse 94 L 97 98 Oximetry - Reevaluation(s) Reevaluation #1: 03/08/20 08:09 PA supervision: I personally evaluate this case patient does present with complaints of a long history of MS and found have a urinary tract infection evidence of sepsis dehydration and hypotension. Patient will require inpatient admission the case was discussed with Dr. Waters (Deuce López) EKG Findings - EKG Comments: EKG Findings:: EKG performed at 6:19 sinus tachycardia rate of 127 RI 150 QRS 90 QT status QTC 300/436 <Robel Garcia - Last Filed: 03/08/20 08:03> Medical Decision Making - Lab Data Result diagrams: 03/08/20 06:47 03/08/20 06:47 <Robel Garcia - Last Filed: 03/08/20 08:03> - Lab Data Result diagrams: 03/08/20 06:47 03/08/20 06:47 <Deuce López - Last Filed: 03/08/20 08:10> - Medical Decision Making 49-year-old female presented for fever concern for sepsis. Patient will be admitted for urosepsis was started antibiotics, blood cultures. (Robel Garcia) - Lab Data Lab Results 03/08/20 03/08/20 03/08/20 Range/Units 06:47 06:47 06:47 WBC 24.2 H (3.8-10.6) k/uL RBC 4.67 (3.80-5.40) m/uL Hgb 13.1 (11.4-16.0) gm/dL Hct 39.3 (34.0-46.0) % MCV 84.2 (80.0-100.0) fL MCH 28.2 (25.0-35.0) pg MCHC 33.4 (31.0-37.0) g/dL RDW 16.6 H (11.5-15.5) % Plt Count 528 H (150-450) k/uL MPV 6.8 Neutrophils % 93 % Lymphocytes % 3 % Monocytes % 2 % Eosinophils % 0 % Basophils % 1 % Neutrophils # 22.4 H (1.3-7.7) k/uL Lymphocytes # 0.8 L (1.0-4.8) k/uL Monocytes # 0.6 (0-1.0) k/uL Eosinophils # 0.1 (0-0.7) k/uL Basophils # 0.1 (0-0.2) k/uL Anisocytosis Slight PT (9.0-12.0) sec INR (<1.2) APTT (22.0-30.0) sec Sodium 136 L (137-145) mmol/L Potassium 3.8 (3.5-5.1) mmol/L Chloride 96 L (98-107) mmol/L Carbon Dioxide 29 (22-30) mmol/L Anion Gap 11 mmol/L BUN 36 H (7-17) mg/dL Creatinine 0.69 (0.52-1.04) mg/dL Est GFR (CKD-EPI)AfAm >90 (>60 ml/min/1.73 sqM) Est GFR (CKD-EPI)NonAf >90 (>60 ml/min/1.73 sqM) Glucose 229 H (74-99) mg/dL Plasma Lactic Acid Armando (0.7-2.0) mmol/L Calcium 9.7 (8.4-10.2) mg/dL Magnesium 2.1 (1.6-2.3) mg/dL Total Bilirubin 0.5 (0.2-1.3) mg/dL AST 14 (14-36) U/L ALT 20 (4-34) U/L Alkaline Phosphatase 89 (38-126) U/L Troponin I (0.000-0.034) ng/mL Total Protein 6.8 (6.3-8.2) g/dL Albumin 4.1 (3.5-5.0) g/dL Lipase 97 (23-300) U/L Urine Color Yellow Urine Appearance Turbid H (Clear) Urine pH 5.5 (5.0-8.0) Ur Specific [place] 1.013 (1.001-1.035) Urine Protein 1+ H (Negative) Urine Glucose (UA) Negative (Negative) Urine Ketones Negative (Negative) Urine Blood Moderate H (Negative) Urine Nitrite Negative (Negative) Urine Bilirubin Negative (Negative) Urine Urobilinogen <2.0 (<2.0) mg/dL Ur Leukocyte Esterase Large H (Negative) Urine RBC 43 H (0-5) /hpf Urine WBC 118 H (0-5) /hpf Urine WBC Clumps Many H (None) /hpf Ur Squamous Epith Cells 2 (0-4) /hpf Urine Bacteria Occasional H (None) /hpf Urine Mucus Rare H (None) /hpf Urine Yeast (Budding) Moderate H (None) /hpf Coronavirus (PCR) (Not Detectd) 03/08/20 03/08/20 03/08/20 Range/Units 06:47 06:47 06:47 WBC (3.8-10.6) k/uL RBC (3.80-5.40) m/uL Hgb (11.4-16.0) gm/dL Hct (34.0-46.0) % MCV (80.0-100.0) fL MCH (25.0-35.0) pg MCHC (31.0-37.0) g/dL RDW (11.5-15.5) % Plt Count (150-450) k/uL MPV Neutrophils % % Lymphocytes % % Monocytes % % Eosinophils % % Basophils % % Neutrophils # (1.3-7.7) k/uL Lymphocytes # (1.0-4.8) k/uL Monocytes # (0-1.0) k/uL Eosinophils # (0-0.7) k/uL Basophils # (0-0.2) k/uL Anisocytosis PT 10.6 (9.0-12.0) sec INR 1.0 (<1.2) APTT 24.1 (22.0-30.0) sec Sodium (137-145) mmol/L Potassium (3.5-5.1) mmol/L Chloride (98-107) mmol/L Carbon Dioxide (22-30) mmol/L Anion Gap mmol/L BUN (7-17) mg/dL Creatinine (0.52-1.04) mg/dL Est GFR (CKD-EPI)AfAm (>60 ml/min/1.73 sqM) Est GFR (CKD-EPI)NonAf (>60 ml/min/1.73 sqM) Glucose (74-99) mg/dL Plasma Lactic Acid Armando 2.2 H* (0.7-2.0) mmol/L Calcium (8.4-10.2) mg/dL Magnesium (1.6-2.3) mg/dL Total Bilirubin (0.2-1.3) mg/dL AST (14-36) U/L ALT (4-34) U/L Alkaline Phosphatase (38-126) U/L Troponin I <0.012 (0.000-0.034) ng/mL Total Protein (6.3-8.2) g/dL Albumin (3.5-5.0) g/dL Lipase (23-300) U/L Urine Color Urine Appearance (Clear) Urine pH (5.0-8.0) Ur Specific [place] (1.001-1.035) Urine Protein (Negative) Urine Glucose (UA) (Negative) Urine Ketones (Negative) Urine Blood (Negative) Urine Nitrite (Negative) Urine Bilirubin (Negative) Urine Urobilinogen (<2.0) mg/dL Ur Leukocyte Esterase (Negative) Urine RBC (0-5) /hpf Urine WBC (0-5) /hpf Urine WBC Clumps (None) /hpf Ur Squamous Epith Cells (0-4) /hpf Urine Bacteria (None) /hpf Urine Mucus (None) /hpf Urine Yeast (Budding) (None) /hpf Coronavirus (PCR) (Not Detectd) 03/08/20 Range/Units 07:16 WBC (3.8-10.6) k/uL RBC (3.80-5.40) m/uL Hgb (11.4-16.0) gm/dL Hct (34.0-46.0) % MCV (80.0-100.0) fL MCH (25.0-35.0) pg MCHC (31.0-37.0) g/dL RDW (11.5-15.5) % Plt Count (150-450) k/uL MPV Neutrophils % % Lymphocytes % % Monocytes % % Eosinophils % % Basophils % % Neutrophils # (1.3-7.7) k/uL Lymphocytes # (1.0-4.8) k/uL Monocytes # (0-1.0) k/uL Eosinophils # (0-0.7) k/uL Basophils # (0-0.2) k/uL Anisocytosis PT (9.0-12.0) sec INR (<1.2) APTT (22.0-30.0) sec Sodium (137-145) mmol/L Potassium (3.5-5.1) mmol/L Chloride (98-107) mmol/L Carbon Dioxide (22-30) mmol/L Anion Gap mmol/L BUN (7-17) mg/dL Creatinine (0.52-1.04) mg/dL Est GFR (CKD-EPI)AfAm (>60 ml/min/1.73 sqM) Est GFR (CKD-EPI)NonAf (>60 ml/min/1.73 sqM) Glucose (74-99) mg/dL Plasma Lactic Acid Armando (0.7-2.0) mmol/L Calcium (8.4-10.2) mg/dL Magnesium (1.6-2.3) mg/dL Total Bilirubin (0.2-1.3) mg/dL AST (14-36) U/L ALT (4-34) U/L Alkaline Phosphatase (38-126) U/L Troponin I (0.000-0.034) ng/mL Total Protein (6.3-8.2) g/dL Albumin (3.5-5.0) g/dL Lipase (23-300) U/L Urine Color Urine Appearance (Clear) Urine pH (5.0-8.0) Ur Specific [place] (1.001-1.035) Urine Protein (Negative) Urine Glucose (UA) (Negative) Urine Ketones (Negative) Urine Blood (Negative) Urine Nitrite (Negative) Urine Bilirubin (Negative) Urine Urobilinogen (<2.0) mg/dL Ur Leukocyte Esterase (Negative) Urine RBC (0-5) /hpf Urine WBC (0-5) /hpf Urine WBC Clumps (None) /hpf Ur Squamous Epith Cells (0-4) /hpf Urine Bacteria (None) /hpf Urine Mucus (None) /hpf Urine Yeast (Budding) (None) /hpf Coronavirus (PCR) Not Detected (Not Detectd) Critical Care Time Critical Care Time: Yes Total Critical Care Time: 35 <Robel Garcia - Last Filed: 03/08/20 08:03> Critical Care Time: Total 35 minutes of critical care time use initially has been patient, reviewed past medical history according labs EKG, chest x-ray. Patient found to have urosepsis. Patient was given 2 g Rocephin, IV fluid bolus. Patient's case discussed with Dr. Means. Patient be admitted with blood culture, urine culture. (Robel Garcia) Disposition <Robel Garcia - Last Filed: 03/08/20 08:03> <Deuce López - Last Filed: 03/08/20 08:10> Clinical Impression: UTI (urinary tract infection), Sepsis Disposition: ADMITTED IP TO THIS HOSP Condition: Serious Referrals: Chace Mojica MD [Primary Care Provider] - 1-2 days
[2020-03-08 07:01] LABS: Anisocytosis Slight; Basophils # (A) 0.1 k/uL (0-0.2); Basophils % (A) 1 %; Eosinophils # (A) 0.1 k/uL (0-0.7); Eosinophils % (A) 0 %; HCT 39.3 % (34.0-46.0); HGB 13.1 gm/dL (11.4-16.0); Lymphocytes # (A) 0.8 k/uL (1.0-4.8); Lymphocytes % (A) 3 %; MCH 28.2 pg (25.0-35.0); MCHC 33.4 g/dL (31.0-37.0); MCV 84.2 fL (80.0-100.0); Mean Platelet Volume 6.8; Monocytes # (A) 0.6 k/uL (0-1.0); Monocytes % (A) 2 %; Neutrophils # (A) 22.4 k/uL (1.3-7.7); Neutrophils % (A) 93 %; Platelet Count 528 k/uL (150-450); RBC 4.67 m/uL (3.80-5.40); RDW 16.6 % (11.5-15.5); WBC 24.2 k/uL (3.8-10.6)
--- NOTE | 2020-03-08 07:02 | XR ---
EXAM: XR Chest, 2 Views CLINICAL HISTORY: ITS.REASON XR Reason: fever TECHNIQUE: Frontal and lateral views of the chest. COMPARISON: 01/31/2020 FINDINGS: Lungs: Heterogeneous opacities in the mid to lower lobes bilaterally. Pleural space: No effusion. Heart: Unchanged. Bones/joints: No acute findings. IMPRESSION: Heterogeneous opacities in the mid to lower lobes bilaterally. Correlate with infectious process.
[2020-03-08 07:06] LABS: Partial Thromboplastin Time 24.1 sec (22.0-30.0); Prothrombin Time 10.6 sec (9.0-12.0)
[2020-03-08 07:08] LABS: ALT 20 U/L (4-34); AST 14 U/L (14-36); African American GFR (CKD) >90 (>60 ml/min/1.73 sqM); Albumin 4.1 g/dL (3.5-5.0); Alkaline Phosphatase 89 U/L (38-126); Anion Gap 11 mmol/L; Blood Urea Nitrogen 36 mg/dL (7-17); Calcium 9.7 mg/dL (8.4-10.2); Carbon Dioxide 29 mmol/L (22-30); Chloride 96 mmol/L (98-107); Glucose 229 mg/dL (74-99); Lipase 97 U/L (23-300); Magnesium 2.1 mg/dL (1.6-2.3); Non-African American GFR(CKD) >90 (>60 ml/min/1.73 sqM); Potassium 3.8 mmol/L (3.5-5.1); Sodium 136 mmol/L (137-145); Total Bilirubin 0.5 mg/dL (0.2-1.3); Total Protein 6.8 g/dL (6.3-8.2)
[2020-03-08 07:35] LABS: Appearance,Urine Turbid (Clear); Bacteria,Urine Occasional /hpf; Bilirubin,Urine Negative (Negative); Blood,Urine Moderate (Negative); Budding Yeast,Urine Moderate /hpf; Color,Urine Yellow; Glucose,Urine (UA) Negative (Negative); Ketones,Urine Negative (Negative); Leukocyte Esterase,Urine Large (Negative); Mucus,Urine Rare /hpf; Nitrite,Urine Negative (Negative); PH, Urine 5.5 (5.0-8.0); Protein,Urine 1+ (Negative); RBC,Urine 43 /hpf (0-5); Specific Gravity,Urine 1.013 (1.001-1.035); Squamous Epithelial Cell,Urine 2 /hpf (0-4); Urobilinogen,Urine <2.0 mg/dL (<2.0); WBC,Urine 118 /hpf (0-5)
[2020-03-08] MEDS ORDERED: ACETAMINOPHEN TAB 325 MG TAB PO PRN (08:05)
[2020-03-08] MEDS ORDERED: ONDANSETRON 4 MG TAB PO PRN (08:06)
[2020-03-08] MEDS: SODIUM CHLORIDE 0.9% 1,000 ML IV SCH ×2 (09:45→16:10)
[2020-03-08] MEDS: HYDROcodone/APAP 5-325MG 1 EACH TAB PO PRN ×2 (11:23→21:30)
[2020-03-08] MEDS: PANTOPRAZOLE 40 MG TABLET PO SCH (11:23)
[2020-03-08] MEDS: PIPERACILLIN-TAZOBACTAM 3.375 GM in SODIUM CHLORIDE 0.9% 100 ML IVPB SCH ×2 (13:13→21:00)
[2020-03-08] MEDS: FERROUS SULFATE 325 MG TAB PO SCH ×2 (13:14→21:00)
[2020-03-08] MEDS: BACLOFEN 10 MG TAB PO SCH ×2 (13:14→21:00)
[2020-03-08] MEDS: GABAPENTIN 300 MG CAP PO SCH ×2 (13:14→21:00)
--- NOTE | 2020-03-08 13:14 | P.HPIM ---
History of Present Illness Patient is pleasant 49-year-old female mostly bedbound because of her MS and chronic medical debility with the unstageable deeper decubitus ulcer came in because of fever tachycardia patient does have leukocytosis of 24,000 was subse quently admitted for sepsis was given Rocephin, Rocephin will be discontinued and patient was started on Zosyn patient denied any UTI symptoms denied any cough chest x-ray showing bilateral infiltrates but in mid and lower lung lobes patient has a chronic Austin catheter with a mild abnormality in the urine Austin catheter is being replaced patient did have lactic acidosis. Patient to decubitus ulcer and appear to be infected. Review of Systems REVIEW OF SYSTEMS: CONSTITUTIONAL: No fever, no malaise, no fatigue. HEENT: No recent visual problems or hearing problems. Denied any sore throat. CARDIOVASCULAR: No chest pain, orthopnea, PND, no palpitations, no syncope. PULMONARY: No shortness of breath, no cough, no hemoptysis. GASTROINTESTINAL: No diarrhea, no nausea, no vomiting, no abdominal pain. NEUROLOGICAL: No headaches, no weakness, no numbness. HEMATOLOGICAL: Denies any bleeding or petechiae. GENITOURINARY: Denies any burning micturition, frequency, or urgency. MUSCULOSKELETAL/RHEUMATOLOGICAL: Denies any joint pain, swelling, or any muscle pain. ENDOCRINE: Denies any polyuria or polydipsia. The rest of the 14-point review of systems is negative. Past Medical History Past Medical History: Hyperlipidemia, Musculoskeletal Disorder, Neurologic Disorder, Pneumonia, Renal Disease, Skin Disorder Additional Past Medical History / Comment(s): Multiple sclerosis stage IV-wheelc hair bound, L side weaker than right, past renal failure with hemodialysis-last time was July 2016, mostly healed sacral decub, sacral osteomylitis, neurogenic bladder with indwelling austin, current UTI, past sepsis, iron deficiency anemia. History of Any Multi-Drug Resistant Organisms: ESBL, MRSA, VRE Date of last positivie culture/infection: 05/22/16 MRSA; 05/18/16 VRE,ESBL 08/27/17, ESBL urine-current MDRO Source:: , ESBL 08/27/17 URINE, MRSA BLOOD Past Surgical History: No Surgical Hx Reported Additional Past Surgical History / Comment(s): LP, debridement decubitus sacral ulcer, hemodialysis cath since removed, picc lines Past Anesthesia/Blood Transfusion Reactions: No Reported Reaction Additional Past Anesthesia/Blood Transfusion Reaction / Comment(s): NEVER HAD ANY GENERAL ANES Past Psychological History: No Psychological Hx Reported Additional Psychological History / Comment(s): Pt resides at [facility]. She states she is mostly wheelchair bound-sit to stand device to chair. She has an IDC. Pt feeds herself. Smoking Status: Never smoker Past Alcohol Use History: None Reported Additional Past Alcohol Use History / Comment(s): Patient is a lifelong nonsmoker. She denies any alcohol abuse. Past Drug Use History: None Reported - Past Family History Father History Unknown: Yes Additional Family Medical History / Comment(s): PTS DAD LIVED IN [place]- SHE'S NOT SURE WHAT HE FROM. HE HAD HYPOTENSION. Mother Family Medical History: Coronary Artery Disease (CAD), Diabetes Mellitus, Hyperlipidemia, Hypertension Additional Family Medical History / Comment(s): CARDIAC STENTS Medications and Allergies Home Medications Medication Instructions Recorded Confirmed Type Acetaminophen Tab [Tylenol] 650 mg PO Q6HR PRN 05/17/16 03/08/20 History Folic Acid 1 mg PO DAILY@1600 08/22/16 03/08/20 History Levothyroxine Sodium [Synthroid] 50 mcg PO DAILY@0700 08/22/16 03/08/20 History Ferrous Sulfate [Iron (65 MG 325 mg PO TID@0700,1300,1900 11/03/17 03/08/20 H istory Elemental)] Cyanocobalamin [Vitamin B-12] 500 mcg PO DAILY@1600 01/12/19 03/08/20 History Potassium Chloride ER [K-Dur 20] 20 meq PO BID@0700,1600 01/12/19 03/08/20 History Spironolactone [Aldactone] 25 mg PO DAILY@0700 01/12/19 03/08/20 History Baclofen [Lioresal] 20 mg PO TID@0700,1300,1900 06/05/19 03/08/20 History Cholecalciferol (Vitamin D3) 125 mcg PO DAILY@1600 06/05/19 03/08/20 History [Vitamin D3] Aspirin 81 mg PO DAILY@1600 09/15/19 03/08/20 History Multivitamins, Thera [Multivitamin 1 tab PO DAILY@1600 01/31/20 03/08/20 History (formulary)] Ondansetron [Zofran] 4 mg PO Q8HR PRN 01/31/20 03/08/20 History Pravastatin Sodium [Pravachol] 40 mg PO HS@199901/31/20 03/08/20 History Pro-Stat Awc 30 ml PO TID@0700,1300,1700 01/31/20 03/08/20 History Sennosides [Senna] 8.6 mg PO BID@0700,1600 01/31/20 03/08/20 History bisacodyL [Bisacodyl] 10 mg RECTAL Q72H PRN 01/31/20 03/08/20 History Gabapentin [Neurontin] 300 mg PO TID@0700,1300,1900 #10 02/05/20 03/08/20 Rx cap HYDROcodone/APAP 5-325MG [[place] 1 tab PO Q6H PRN 2 Days #3 tab 02/05/20 03/08/20 Rx 5-325] Pantoprazole [Protonix] 40 mg PO DAILY 42 Days #42 02/05/20 03/08/20 Rx tablet. Dimethyl Fumarate [Tecfidera] 240 mg PO BID@0700,1600 03/08/20 03/08/20 History Torsemide [Demadex] 20 mg PO BID@0700,1600 03/08/20 03/08/20 History Allergies Allergy/AdvReac Type Severity Reaction Status Date / Time adhesive tape Allergy Rash/Hives Verified 03/08/20 07:34 cinnamon Allergy Rash/Hives Verified 03/08/20 07:34 Physical Exam Vitals: Vital Signs Temp Pulse Pulse Resp BP BP Pulse Ox 03/08/20 11:32 98 18 03/08/20 09:49 98.6 F 97 18 104/60 98 03/08/20 09:00 98.7 F 90 18 95/52 98 03/08/20 08:25 98.3 F 98 18 99/65 97 03/08/20 07:46 103 H 18 97/64 98 03/08/20 07:12 117 H 18 100/62 97 03/08/20 06:05 99.6 F 127 H 18 101/68 94 L Intake and Output 03/07/20 03/08/20 03/08/20 22:59 06:59 14:59 Other: Voiding Method Indwelling Catheter Weight 107.955 kg 107.955 kg PHYSICAL EXAMINATION: GENERAL: The patient is alert and oriented x3, not in any acute distress. Well developed, well nourished. HEENT: Pupils are round and equally reacting to light. EOMI. No scleral icterus. No conjunctival pallor. Normocephalic, atraumatic. No pharyngeal erythema. No thyromegaly. CARDIOVASCULAR: S1 and S2 present. No murmurs, rubs, or gallops. PULMONARY: Chest is clear to auscultation, no wheezing or crackles. ABDOMEN: Soft, nontender, nondistended, normoactive bowel sounds. No palpable organomegaly. MUSCULOSKELETAL: No joint swelling or deformity. EXTREMITIES: No cyanosis, clubbing, or pedal edema. NEUROLOGICAL: The second of generalized weakness and the chronic weakness in both lower extremities bed bound SKIN: Fully catheter in place and patient has stage IV sacral decubitus ulcer which doesn't appear to be infected Results CBC & Chem 7: 03/08/20 06:47 03/08/20 06:47 Labs: Abnormal Lab Results - Last 24 Hours (Table) 03/08/20 03/08/20 03/08/20 Range/Units 06:47 06:47 06:47 WBC 24.2 H (3.8-10.6) k/uL RDW 16.6 H (11.5-15.5) % Plt Count 528 H (150-450) k/uL Neutrophils # 22.4 H (1.3-7.7) k/uL Lymphocytes # 0.8 L (1.0-4.8) k/uL Sodium 136 L (137-145) mmol/L Chloride 96 L (98-107) mmol/L BUN 36 H (7-17) mg/dL Glucose 229 H (74-99) mg/dL Plasma Lactic Acid Armando (0.7-2.0) mmol/L Urine Appearance Turbid H (Clear) Urine Protein 1+ H (Negative) Urine Blood Moderate H (Negative) Ur Leukocyte Esterase Large H (Negative) Urine RBC 43 H (0-5) /hpf Urine WBC 118 H (0-5) /hpf Urine WBC Clumps Many H (None) /hpf Urine Bacteria Occasional H (None) /hpf Urine Mucus Rare H (None) /hpf Urine Yeast (Budding) Moderate H (None) /hpf 03/08/20 Range/Units 06:47 WBC (3.8-10.6) k/uL RDW (11.5-15.5) % Plt Count (150-450) k/uL Neutrophils # (1.3-7.7) k/uL Lymphocytes # (1.0-4.8) k/uL Sodium (137-145) mmol/L Chloride (98-107) mmol/L BUN (7-17) mg/dL Glucose (74-99) mg/dL Plasma Lactic Acid Armando 2.2 H* (0.7-2.0) mmol/L Urine Appearance (Clear) Urine Protein (Negative) Urine Blood (Negative) Ur Leukocyte Esterase (Negative) Urine RBC (0-5) /hpf Urine WBC (0-5) /hpf Urine WBC Clumps (None) /hpf Urine Bacteria (None) /hpf Urine Mucus (None) /hpf Urine Yeast (Budding) (None) /hpf Thrombosis Risk Factor Assmnt - Choose All That Apply Each Factor Represents 1 point: Age 41-60 years, Medical pt on bed rest, Obesity (BMI >25), Sepsis (< 1month) Other Risk Factors: Yes Each Risk Factor Represents 2 Points: Patient confined to bed Other congenital or acquired thrombophilia - If yes, enter type in comment: No Thrombosis Risk Factor Assessment Total Risk Factor Score: 6 Thrombosis Risk Factor Assessment Level: High Risk Assessment and Plan Plan: Sepsis: Covid 19 is negative. Patient continued on IV fluids patient was started on Zosyn and infectious disease will be consulted. Possible source is being urinary tract infection Austin catheter was replaced, pneumonia cannot be completely ruled out and sacral decubitus ulcer, infected ulcer cannot be ruled out. Probably we need cultures from the wound. She also had history of ESBL in the past in this situation patient may need meropenem but I'll leave that decision to infectious disease -History of multiple sclerosis bedbound multiple hospitalizations in the past: Supportive care -Hyperlipidemia -Chronic sacral stage IV decubitus ulcer. -Neurogenic bladder -DVT prophylaxis with Lovenox
[2020-03-08] MEDS: PATIENT'S OWN (Dimethyl Fumarate [Tecfidera] 240 MG Capsule.Dr) PO SCH (14:28)
[2020-03-08] MEDS: CHOLECALCIFEROL 1,000 UNIT TAB PO SCH (16:10)
[2020-03-08] MEDS: FOLIC ACID 1 MG TAB PO SCH (16:10)
[2020-03-08] MEDS: CYANOCOBALAMIN 500 MCG TAB PO SCH (16:10)
[2020-03-08] MEDS: MULTIVITAMINS, THERA 1 EACH TAB PO SCH (16:10)
[2020-03-08] MEDS: POTASSIUM CHLORIDE ER 20 MEQ TAB.ER PO SCH (16:10)
[2020-03-08] MEDS: TORSEMIDE 20 MG TAB PO SCH (16:10)
[2020-03-08] MEDS: PRAVASTATIN SODIUM 40 MG TAB PO SCH (21:00)
[2020-03-09] MEDS: PIPERACILLIN-TAZOBACTAM 3.375 GM in SODIUM CHLORIDE 0.9% 100 ML IVPB SCH ×3 (05:49→20:31)
[2020-03-09] MEDS: HYDROcodone/APAP 5-325MG 1 EACH TAB PO PRN ×3 (05:58→20:42)
--- NOTE | 2020-03-09 06:37 | CONS ---
CONSULTATION DATE OF SERVICE: 03/08/2020 REASON FOR CONSULTATION: Sepsis. HISTORY OF PRESENT ILLNESS: This patient is a 49-year-old female with past medical history for MS in this patient who did have chronic indwelling Chaves catheter because of her new urinary retention and also has a stage IV sacral pressure ulcer with previous spots of osteomyelitis and the patient followed with [facility]. Recent local wound care was switched over to dry Aquacel Silver dressing due to significant maceration with the wound VAC application. The patient was sent to [facility] ER for evaluation of fever, possible sepsis and noted to be tachycardic and fever early this morning. The patient denies having any headache. No chest pain or shortness of breath. No cough. No abdominal pain. No diarrhea or pain to the sacral wound area. On presentation to the hospital, the patient did have a low- grade fever of 99.6. The patient was tachycardic with a heart rate 127. Patient did have a white count 24.2. She did have a positive UA and lactic acid of 2.2. The patient was started on Zosyn and Infectious Disease was consulted for further management of antibiotic therapy. The patient did have a chest x-ray that was reported for interstitial opacities lower lungs bilaterally, correlate for pneumonia. REVIEW OF SYMPTOMS: Positive points have been mentioned in HPI. Rest of systems are negative. PAST MEDICAL HISTORY: Significant for MS, urinary retention, recurrent urinary tract infection and sacral pressure ulcer, stage IV with recurrent bouts of osteomyelitis, hyperlipidemia. PAST SURGICAL HISTORY: Debridement of the sacral pressure ulcer, hemodialysis catheter that was subsequently removed. PICC line placed and subsequent removal. SOCIAL HISTORY: Current custodial resident. No drinking or drug use. FAMILY HISTORY: Mother with a history of diabetes, coronary artery disease, hyperlipidemia. ALLERGIES: No known drug allergies. MEDICATIONS: The patient is currently on Tylenol, [place], baclofen, vitamin D3, Lovenox, iron sulfate, Neurontin, Synthroid, Theragran, Zosyn, Carloz-Dur, Pravachol, Decadron, Demodex. PHYSICAL EXAMINATION: Blood pressure is 99/63 with a pulse of 96, temperature 97.9. She is 95% on room air. General description is a middle-aged female lying in bed in no distress. No tachypnea or accessory muscle of respiration use. HEENT: Examination shows no pallor or scleral icterus. Oral mucous membrane is dry. Neck trachea central no thyromegaly. Lungs with unlabored breathing, clear to auscultation anteriorly. No wheeze or crackle. Heart S1, S2. Regular rate and rhythm. Abdomen is soft, no tenderness. No guarding. No rigidity. Extremities show no edema of the feet. Skin examination shows no rash or mass palpable. Neurological patient is awake, alert, oriented times three. Mood and affect normal. LABS: Hemoglobin 13.1, white count 24.2, BUN of 36, creatinine 2.9, lactic is 2.2. Urine is positive. DIAGNOSTIC IMPRESSION: Patient admitted to hospital with sepsis with likely catheter-associated urinary tract infection. This patient has been previously infected and colonized with multidrug resistant pathogen, likely Gram-negative. Clinically doubt pneumonia or infected sacral wound. PLAN: 1. Chaves catheter has been changed. We will obtain urine culture from new Chaves. 2. Zosyn 3.375 grams q.8 hours. 3. Local wound care for sacral wound with Aquacel Silver and will try to restart the wound VAC. 4. We will follow on clinical condition and culture to further adjust medication if needed. Thank you for this consultation. Will follow this patient along with you. MMODL / IJN: [id number] / ELIZABETH
[2020-03-09] MEDS: PATIENT'S OWN (Dimethyl Fumarate [Tecfidera] 240 MG Capsule.Dr) PO SCH ×2 (07:50→16:11)
[2020-03-09] MEDS: POTASSIUM CHLORIDE ER 20 MEQ TAB.ER PO SCH ×3 (07:51→16:12)
[2020-03-09] MEDS: ENOXAPARIN 40 MG/0.4 ML SYRINGE SQ SCH (09:11)
[2020-03-09] MEDS: BACLOFEN 10 MG TAB PO SCH ×3 (09:12→20:30)
[2020-03-09] MEDS: GABAPENTIN 300 MG CAP PO SCH ×3 (09:12→20:30)
[2020-03-09] MEDS: FERROUS SULFATE 325 MG TAB PO SCH ×3 (09:12→20:31)
[2020-03-09] MEDS: PANTOPRAZOLE 40 MG TABLET PO SCH (09:12)
[2020-03-09] MEDS: TORSEMIDE 20 MG TAB PO SCH ×2 (09:12→16:12)
[2020-03-09] MEDS: SPIRONOLACTONE 25 MG TAB PO SCH (09:12)
[2020-03-09] MEDS: LEVOTHYROXINE 50 MCG TAB PO SCH (09:12)
[2020-03-09] MEDS: SODIUM CHLORIDE 0.9% 1,000 ML IV SCH (09:13)
--- NOTE | 2020-03-09 15:25 | P.PN ---
Subjective Patient is pleasant 49-year-old female mostly bedbound because of her MS and chronic medical debility with the unstageable deeper decubitus ulcer came in because of fever tachycardia patient does have leukocytosis of 24,000 was subsequently admitted for sepsis was given Rocephin, Rocephin will be discontinued and patient was started on Zosyn patient denied any UTI symptoms denied any cough chest x-ray showing bilateral infiltrates but in mid and lower lung lobes patient has a chronic Chaves catheter with a mild abnormality in the urine Chaves catheter is being replaced patient did have lactic acidosis. Patient to decubitus ulcer and appear to be infected. 03/09/2020 patient's Chaves catheter was changed and it appears that the patient's Chaves catheter balloon is dilated in the urethra probably not effectively draining any urine leading to urinary tract infection. Patient remains on Zosyn. Possibility of wound or pneumonia being infectious source is low. If patient has ESBL then will be switched to meropenem at the time patient is looking much better no fevers. Constitutional: Denied any fatigue denied any fever. Cardio vascular: denied any chest pain, palpitations Gastrointestinal denied any nausea vomiting Pulmonary: Denied any shortness of breath cough Neurologic denied any new focal deficits All inpatient medications were reviewed and appropriate changes in these medications as dictated in the interval history and assessment and plan. Objective - Vital Signs Vital signs: Vital Signs Temp 98.1 F 03/09/20 14:00 Pulse 80 03/09/20 07:55 Resp 18 03/09/20 14:00 BP 118/76 03/09/20 14:00 Pulse Ox 96 03/09/20 14:00 Intake & Output 03/08/20 03/09/20 03/09/20 18:59 06:59 18:59 Intake Total 450 500 700 Output Total 50 300 300 Balance 400 200 400 Weight 107.955 kg Intake: Oral 450 500 700 Output: Urine 50 300 300 Other: Voiding Method Indwelling Catheter Indwelling Catheter - Exam PHYSICAL EXAMINATION: GENERAL: The patient is alert and oriented x3, not in any acute distress. Well developed, well nourished. HEENT: Pupils are round and equally reacting to light. EOMI. No scleral icterus. No conjunctival pallor. Normocephalic, atraumatic. No pharyngeal erythema. No thyromegaly. CARDIOVASCULAR: S1 and S2 present. No murmurs, rubs, or gallops. PULMONARY: Chest is clear to auscultation, no wheezing or crackles. ABDOMEN: Soft, nontender, nondistended, normoactive bowel sounds. No palpable organomegaly. MUSCULOSKELETAL: No joint swelling or deformity. EXTREMITIES: No cyanosis, clubbing, or pedal edema. NEUROLOGICAL: The second of generalized weakness and the chronic weakness in both lower extremities bed bound SKIN: Fully catheter in place and patient has stage IV sacral decubitus ulcer which doesn't appear to be infected - Labs CBC & Chem 7: 03/08/20 06:47 03/08/20 06:47 Labs: Microbiology - Last 24 Hours (Table) 03/08/20 06:47 Urine Culture - Preliminary Urine,Voided Pseudomonas spec 03/08/20 06:47 Blood Culture - Preliminary Blood No Growth after 24 hours 03/08/20 13:23 Gram Stain - Preliminary Buttock Wound Culture - Preliminary Assessment and Plan Plan: Sepsis: Covid 19 is negative. Patient continued on IV fluids patient was started on Zosyn and infectious disease will be consulted. Possible source is being urinary tract infection Chaves catheter was replaced, summary of for pneu monia and infected wound is low low Probably we need cultures from the wound. She also had history of ESBL in the past, patient is afebrile and doing well with Zosyn at this time and follow urine cultures and wound cultures comes back positive as he is being held and patient was started on -History of multiple sclerosis bedbound multiple hospitalizations in the past: Supportive care -Hyperlipidemia -Chronic sacral stage IV decubitus ulcer. -Neurogenic bladder -DVT prophylaxis with Lovenox
[2020-03-09] MEDS: CYANOCOBALAMIN 500 MCG TAB PO SCH (16:11)
[2020-03-09] MEDS: CHOLECALCIFEROL 1,000 UNIT TAB PO SCH (16:12)
[2020-03-09] MEDS: FOLIC ACID 1 MG TAB PO SCH (16:12)
[2020-03-09] MEDS: MULTIVITAMINS, THERA 1 EACH TAB PO SCH (16:12)
[2020-03-09] MEDS: PRAVASTATIN SODIUM 40 MG TAB PO SCH (20:31)
--- NOTE | 2020-03-09 23:11 | PN ---
PROGRESS NOTE DATE OF SERVICE: 03/09/2020. REASON FOR FOLLOWUP: Sepsis, likely catheter associated urinary tract infection. INTERVAL HISTORY: Patient is currently afebrile. The patient is breathing comfortably. Denies having any chest pain. No shortness of breath or cough. No abdominal pain. No diarrhea. PHYSICAL EXAMINATION: Blood pressure 119/76, pulse of 69, temperature 98.1. She is 96% on room air. General description: The patient is a middle-aged female lying in bed in no distress. Respiratory system: Unlabored breathing. Clear to auscultation anteriorly. Heart S1, S2 regular rate and rhythm. Abdomen soft, no tenderness. LABS: Urine showing Pseudomonas species. DIAGNOSTIC IMPRESSION AND PLAN: 1. Patient admitted to the hospital with sepsis, source of urinary tract infection. Urine showing Pseudomonas. Patient is covered with Zosyn to continue while waiting for the culture to finalize. Continue supportive care. 2. Patient with sacral wound. Local wound care with a wound VAC. Continue supportive care. MMODL / IJN: [id number] /
[2020-03-10 06:55] LABS: Anisocytosis Slight; HCT 34.8 % (34.0-46.0); HGB 11.8 gm/dL (11.4-16.0); MCH 28.9 pg (25.0-35.0); MCHC 33.8 g/dL (31.0-37.0); MCV 85.4 fL (80.0-100.0); Mean Platelet Volume 6.9; Platelet Count 390 k/uL (150-450); RBC 4.08 m/uL (3.80-5.40); RDW 16.4 % (11.5-15.5); WBC 7.5 k/uL (3.8-10.6)
[2020-03-10] MEDS: SODIUM CHLORIDE 0.9% 1,000 ML IV SCH ×3 (09:40→17:46)
[2020-03-10] MEDS: PIPERACILLIN-TAZOBACTAM 3.375 GM in SODIUM CHLORIDE 0.9% 100 ML IVPB SCH ×3 (09:40→19:58)
[2020-03-10] MEDS: GABAPENTIN 300 MG CAP PO SCH ×3 (09:42→19:58)
[2020-03-10] MEDS: PANTOPRAZOLE 40 MG TABLET PO SCH (09:42)
[2020-03-10] MEDS: TORSEMIDE 20 MG TAB PO SCH ×2 (09:42→15:57)
[2020-03-10] MEDS: LEVOTHYROXINE 50 MCG TAB PO SCH (09:42)
[2020-03-10] MEDS: SPIRONOLACTONE 25 MG TAB PO SCH (09:42)
[2020-03-10] MEDS: POTASSIUM CHLORIDE ER 20 MEQ TAB.ER PO SCH ×2 (09:42→15:32)
[2020-03-10] MEDS: BACLOFEN 10 MG TAB PO SCH ×3 (09:42→19:58)
[2020-03-10] MEDS: FERROUS SULFATE 325 MG TAB PO SCH ×3 (09:42→20:02)
[2020-03-10] MEDS: HYDROcodone/APAP 5-325MG 1 EACH TAB PO PRN ×2 (09:48→16:02)
[2020-03-10 10:15] LABS: African American GFR (CKD) 118.7 (60.0-200.0); Anion Gap 10.3 mmol/L (4.00-12.00); BUN/Creat Ratio 28.57 Ratio (12.00-20.00); Calcium 9.5 mg/dL (8.7-10.3); Carbon Dioxide 27.7 mmol/L (21.6-31.8); Non-African American GFR(CKD) 102.5 (60.0-200.0); Potassium 3.9 mmol/L (3.5-5.5)
[2020-03-10 11:15] VITALS: BMI 39.6
--- NOTE | 2020-03-10 11:51 | P.PN ---
Subjective Patient is pleasant 49-year-old female mostly bedbound because of her MS and chronic medical debility with the unstageable deeper decubitus ulcer came in because of fever tachycardia patient does have leukocytosis of 24,000 was subsequently admitted for sepsis was given Rocephin, Rocephin will be discontinued and patient was started on Zosyn patient denied any UTI symptoms denied any cough chest x-ray showing bilateral infiltrates but in mid and lower lung lobes patient has a chronic Chaves catheter with a mild abnormality in the urine Chaves catheter is being replaced patient did have lactic acidosis. Patient to decubitus ulcer and appear to be infected. 03/09/2020 patient's Chaves catheter was changed and it appears that the patient's Chaves catheter balloon is dilated in the urethra probably not effectively draining any urine leading to urinary tract infection. Patient remains on Zosyn. Possibility of wound or pneumonia being infectious source is low. If patient has ESBL then will be switched to meropenem at the time patient is looking much better no fevers. 03/10/2020 Patient urine cultures are positive for Pseudomonas which is sensitive to Zosyn which will be continued and wound cultures are showing gram-negative bacilli and strep group B. patient is feeling well at this time. Constitutional: Denied any fatigue denied any fever. Cardio vascular: denied any chest pain, palpitations Gastrointestinal denied any nausea vomiting Pulmonary: Denied any shortness of breath cough Neurologic denied any new focal deficits All inpatient medications were reviewed and appropriate changes in these medications as dictated in the interval history and assessment and plan. Objective - Vital Signs Vital signs: Vital Signs Temp 98.0 F 03/10/20 08:40 Pulse 98 03/10/20 08:40 Resp 20 03/10/20 08:40 BP 113/75 03/10/20 08:40 Pulse Ox 94 L 03/10/20 08:40 Intake & Output 03/09/20 03/10/20 03/10/20 18:59 06:59 18:59 Intake Total 700 Output Total 300 1800 1800 Balance 400 -1800 -1800 Weight 107.955 kg Intake: Oral 700 Output: Urine 300 1800 1800 Other: Voiding Method Indwelling Catheter Indwelling Catheter Indwelling Catheter # Voids 1 1 - Exam PHYSICAL EXAMINATION: GENERAL: The patient is alert and oriented x3, not in any acute distress. Well developed, well nourished. HEENT: Pupils are round and equally reacting to light. EOMI. No scleral icterus. No conjunctival pallor. Normocephalic, atraumatic. No pharyngeal erythema. No thyromegaly. CARDIOVASCULAR: S1 and S2 present. No murmurs, rubs, or gallops. PULMONARY: Chest is clear to auscultation, no wheezing or crackles. ABDOMEN: Soft, nontender, nondistended, normoactive bowel sounds. No palpable organomegaly. MUSCULOSKELETAL: No joint swelling or deformity. EXTREMITIES: No cyanosis, clubbing, or pedal edema. NEUROLOGICAL: The second of generalized weakness and the chronic weakness in both lower extremities bed bound SKIN: Fully catheter in place and patient has stage IV sacral decubitus ulcer which doesn't appear to be infected - Labs CBC & Chem 7: 03/10/20 06:27 03/10/20 06:27 Labs: Abnormal Lab Results - Last 24 Hours (Table) 03/10/20 03/10/20 Range/Units 06:27 06:27 RDW 16.4 H (11.5-15.5) % BUN/Creatinine Ratio 28.57 H (12.00-20.00) Ratio Glucose 157 H (70-110) mg/dL Microbiology - Last 24 Hours (Table) 03/08/20 06:47 Urine Culture - Final Urine,Voided Pseudomonas aeruginosa 03/08/20 06:47 Blood Culture - Preliminary Blood No Growth after 48 hours 03/08/20 13:23 Gram Stain - Preliminary Buttock Wound Culture - Preliminary Gram Neg Bacilli Strep agalactiae - (group b) Assessment and Plan Plan: Sepsis: Covid 19 is negative. Patient continued on IV fluids patient he is on Zosyn and infectious disease evaluated the patient. Possible source is being urinary tract infection Chaves catheter was replaced, low suspicion for pneumonia and infected wound is low low Probably we need cultures from the wound. ration has rawness in the urine and patient is presently receiving Zosyn at this time wound cultures as mentioned above -History of multiple sclerosis bedbound multiple hospitalizations in the past: Supportive care -Hyperlipidemia -Chronic sacral stage IV decubitus ulcer. -Neurogenic bladder -DVT prophylaxis with Lovenox
[2020-03-10] MEDS: ENOXAPARIN 40 MG/0.4 ML SYRINGE SQ SCH (12:19)
[2020-03-10] MEDS: PATIENT'S OWN (Dimethyl Fumarate [Tecfidera] 240 MG Capsule.Dr) PO SCH ×2 (13:59→15:27)
[2020-03-10] MEDS: CYANOCOBALAMIN 500 MCG TAB PO SCH (15:32)
[2020-03-10] MEDS: FOLIC ACID 1 MG TAB PO SCH (15:32)
[2020-03-10] MEDS: CHOLECALCIFEROL 1,000 UNIT TAB PO SCH (15:32)
[2020-03-10] MEDS: MULTIVITAMINS, THERA 1 EACH TAB PO SCH (15:33)
[2020-03-10 23:50] VITALS: RESP 16
--- NOTE | 2020-03-11 02:51 | PN ---
PROGRESS NOTE DATE OF SERVICE: 03/10/2020 REASON FOR FOLLOWUP: 1. Pseudomonas catheter associated urinary tract infection. 2. Sacral wound. INTERVAL HISTORY: The patient is currently afebrile. The patient is breathing comfortably. The patient denies having any chest pain or shortness of breath or cough. No nausea, no vomiting. No abdominal pain or diarrhea. PHYSICAL EXAMINATION: Blood pressure 157/66, pulse of 61, temperature 96.9. She is 96% on room air. General description is a middle-aged female lying in bed in no distress. RESPIRATORY SYSTEM: Unlabored breathing, clear to auscultation anteriorly. HEART: S1, S2. Regular rate and rhythm. ABDOMEN: Soft. No tenderness. LABS: Hemoglobin 11.8, white count 7.5. BUN of 20, creatinine 0.7. DIAGNOSTIC IMPRESSION AND PLAN: 1. Patient admitted to the hospital with sepsis source likely Pseudomonas catheter associated urinary tract infection. Chaves has been changed. Patient responded to Zosyn transition to cefepime 2 grams q.12 for 14 days on discharge with a Midline. 2. The patient with stage IV sacral pressure ulcer. Culture did show multiple pathogens; however, she continued with clinical improvement without treatment for the same, hence, possible colonizer and will recommend local wound care currently with Aquacel Silver and then be transitioned to wound VAC on discharge. MMODL / IJN: [id number] /
[2020-03-11] MEDS: PIPERACILLIN-TAZOBACTAM 3.375 GM in SODIUM CHLORIDE 0.9% 100 ML IVPB SCH ×2 (04:38→11:12)
[2020-03-11] MEDS: PRAVASTATIN SODIUM 40 MG TAB PO SCH (04:39)
[2020-03-11] MEDS: SODIUM CHLORIDE 0.9% 1,000 ML IV SCH ×2 (07:06→11:48)
[2020-03-11 07:28] VITALS: BP 117/78; PULSE 80; TEMP 97.6
[2020-03-11] MEDS: POTASSIUM CHLORIDE ER 20 MEQ TAB.ER PO SCH (07:29)
[2020-03-11] MEDS: LEVOTHYROXINE 50 MCG TAB PO SCH (07:29)
[2020-03-11] MEDS: SPIRONOLACTONE 25 MG TAB PO SCH (07:29)
[2020-03-11] MEDS: HYDROcodone/APAP 5-325MG 1 EACH TAB PO PRN ×2 (07:29→14:45)
[2020-03-11] MEDS: TORSEMIDE 20 MG TAB PO SCH (07:29)
[2020-03-11] MEDS: BACLOFEN 10 MG TAB PO SCH ×2 (07:29→11:48)
[2020-03-11] MEDS: ENOXAPARIN 40 MG/0.4 ML SYRINGE SQ SCH (07:29)
[2020-03-11] MEDS: PANTOPRAZOLE 40 MG TABLET PO SCH (07:30)
[2020-03-11] MEDS: GABAPENTIN 300 MG CAP PO SCH ×2 (07:30→11:48)
[2020-03-11] MEDS: FERROUS SULFATE 325 MG TAB PO SCH ×2 (07:30→11:48)
[2020-03-11] MEDS: PATIENT'S OWN (Dimethyl Fumarate [Tecfidera] 240 MG Capsule.Dr) PO SCH (07:30)
--- NOTE | 2020-03-11 10:55 | P.DS ---
Providers Date of admission: 03/08/20 08:05 Attending physician: Sepiedh Waters Consults: 03/08/20 10:16 Consult Physician Routine Consulting Provider: Bobo Rivero Consult Reason/Comments: sepsis. Do you want consulting provider notified?: Yes Primary care physician: Chace [facility] Course: Patient is pleasant 49-year-old female mostly bedbound because of her MS and chronic medical debility with the unstageable deeper decubitus ulcer came in because of fever tachycardia patient does have leukocytosis of 24,000 was subsequently admitted for sepsis was given Rocephin, Rocephin will be discontinued and patient was started on Zosyn patient denied any UTI symptoms denied any cough chest x-ray showing bilateral infiltrates but in mid and lower lung lobes patient has a chronic Chaves catheter with a mild abnormality in the urine Chaves catheter is being replaced patient did have lactic acidosis. Patient to decubitus ulcer and appear to be infected. 03/09/2020 patient's Chaves catheter was changed and it appears that the patient's Chaves catheter balloon is dilated in the urethra probably not effectively draining any urine leading to urinary tract infection. Patient remains on Zosyn. Possibility of wound or pneumonia being infectious source is low. If patient has ESBL then will be switched to meropenem at the time patient is looking much better no fevers. 03/10/2020 Patient urine cultures are positive for Pseudomonas which is sensitive to Zosyn which will be continued and wound cultures are showing gram-negative bacilli and strep group B. patient is feeling well at this time. 03/11/2020 No significant overnight events wound cultures are showing multiple bacteria including MRSA, Morganella come is to pick a lactate. The MRSA and strep agalactiae are probably skin organisms and the patient will be treated for Morganella morganii with the cefepime. Patient has a UTI with pseudomonas aeruginosa patient will be discharged on 14 days of cefepime 2 g twice a day. Patient will be discharged today. PHYSICAL EXAMINATION: GENERAL: The patient is alert and oriented x3, not in any acute distress. Well developed, well nourished. HEENT: Pupils are round and equally reacting to light. EOMI. No scleral icterus. No conjunctival pallor. Normocephalic, atraumatic. No pharyngeal erythema. No thyromegaly. CARDIOVASCULAR: S1 and S2 present. No murmurs, rubs, or gallops. PULMONARY: Chest is clear to auscultation, no wheezing or crackles. ABDOMEN: Soft, nontender, nondistended, normoactive bowel sounds. No palpable organomegaly. MUSCULOSKELETAL: No joint swelling or deformity. EXTREMITIES: No cyanosis, clubbing, or pedal edema. NEUROLOGICAL: The second of generalized weakness and the chronic weakness in both lower extremities bed bound SKIN: Fully catheter in place and patient has stage IV sacral decubitus ulcer which doesn't appear to be infected Assessment and Plan Plan: Sepsis: Covid 19 is negative. Probably secondary to urinary tract infection patient has a stage IV decubitus ulcer which showed Morganella which will be treated with cefepime. Wound is probably infected but the problem not source of sepsis -History of multiple sclerosis bedbound multiple hospitalizations in the past: Supportive care -Hyperlipidemia -Chronic sacral stage IV decubitus ulcer. -Neurogenic bladder Patient Condition at Discharge: Serious Plan - Discharge Summary Discharge Rx Participant: No New Discharge Prescriptions: New Cefepime [Maxipime] 2 gm IVPB Q12H #28 bag Continue Acetaminophen Tab [Tylenol] 650 mg PO Q6HR PRN PRN Reason: Pain Folic Acid 1 mg PO DAILY@1600 Levothyroxine Sodium [Synthroid] 50 mcg PO DAILY@0700 Ferrous Sulfate [Iron (65 MG Elemental)] 325 mg PO TID@0700,1300,1900 Cyanocobalamin [Vitamin B-12] 500 mcg PO DAILY@1600 Potassium Chloride ER [K-Dur 20] 20 meq PO BID@0700,1600 Spironolactone [Aldactone] 25 mg PO DAILY@0700 Cholecalciferol (Vitamin D3) [Vitamin D3] 125 mcg PO DAILY@1600 Baclofen [Lioresal] 20 mg PO TID@0700,1300,1900 Aspirin 81 mg PO DAILY@1600 bisacodyL [Bisacodyl] 10 mg RECTAL Q72H PRN PRN Reason: Constipation Ondansetron [Zofran] 4 mg PO Q8HR PRN PRN Reason: Nausea And Vomiting Pro-Stat Awc 30 ml PO TID@0700,1300,1700 Sennosides [Senna] 8.6 mg PO BID@0700,1600 Pravastatin Sodium [Pravachol] 40 mg PO HS@2000 Multivitamins, Thera [Multivitamin (formulary)] 1 tab PO DAILY@1600 Pantoprazole [Protonix] 40 mg PO DAILY 42 Days #42 tablet. Dimethyl Fumarate [Tecfidera] 240 mg PO BID@0700,1600 Torsemide [Demadex] 20 mg PO BID@0700,1600 Gabapentin [Neurontin] 300 mg PO TID@0700,1300,1900 #10 cap HYDROcodone/APAP 5-325MG [Felton 5-325] 1 tab PO Q6H PRN 2 Days #10 tab PRN Reason: Pain Discharge Medication List Acetaminophen Tab [Tylenol] 650 mg PO Q6HR PRN 05/17/16 [History] Folic Acid 1 mg PO DAILY@159908/22/16 [History] Levothyroxine Sodium [Synthroid] 50 mcg PO DAILY@0700 08/22/16 [History] Ferrous Sulfate [Iron (65 MG Elemental)] 325 mg PO TID@0700,1300,1900 11/03/17 [History] Cyanocobalamin [Vitamin B-12] 500 mcg PO DAILY@159901/12/19 [History] Potassium Chloride ER [K-Dur 20] 20 meq PO BID@0700,1600 01/12/19 [History] Spironolactone [Aldactone] 25 mg PO DAILY@0700 01/12/19 [History] Baclofen [Lioresal] 20 mg PO TID@0700,1300,1900 06/05/19 [History] Cholecalciferol (Vitamin D3) [Vitamin D3] 125 mcg PO DAILY@159906/05/19 [History] Aspirin 81 mg PO DAILY@159909/15/19 [History] Multivitamins, Thera [Multivitamin (formulary)] 1 tab PO DAILY@159901/31/20 [History] Ondansetron [Zofran] 4 mg PO Q8HR PRN 01/31/20 [History] Pravastatin Sodium [Pravachol] 40 mg PO HS@199901/31/20 [History] Pro-Stat Awc 30 ml PO TID@0700,1300,1700 01/31/20 [History] Sennosides [Senna] 8.6 mg PO BID@0700,1600 01/31/20 [History] bisacodyL [Bisacodyl] 10 mg RECTAL Q72H PRN 01/31/20 [History] Pantoprazole [Protonix] 40 mg PO DAILY 42 Days #42 tablet. 02/05/20 [Rx] Dimethyl Fumarate [Tecfidera] 240 mg PO BID@0700,1600 03/08/20 [History] Torsemide [Demadex] 20 mg PO BID@0700,1600 03/08/20 [History] Cefepime [Maxipime] 2 gm IVPB Q12H #28 bag 03/11/20 [Rx] Gabapentin [Neurontin] 300 mg PO TID@0700,1300,1900 #10 cap 03/11/20 [Rx] HYDROcodone/APAP 5-325MG [Felton 5-325] 1 tab PO Q6H PRN 2 Days #10 tab 03/11/20 [Rx] Follow up Appointment(s)/Referral(s): Chace Mojica MD [Primary Care Provider] - 3 Days Bobo Rivero MD [STAFF PHYSICIAN] - 1 Week Discharge Disposition: TRANSFER TO SNF/ECF
--- NOTE | 2020-03-11 14:04 | PN ---
PROGRESS NOTE DATE OF SERVICE: 03/11/2020 REASON FOR FOLLOWUP: 1. Catheter associated urinary tract infection. 2. Sacral pressure ulcer. INTERVAL HISTORY: The patient is currently afebrile. The patient is feeling better. Breathing comfortably. Denies having any chest pain. No shortness of breath. No abdominal pain. No diarrhea, no vomiting. PHYSICAL EXAMINATION: Blood pressure 113/78, pulse of 80, temperature of 97.8, 100% on room air. General description is a middle-aged female lying in bed in no distress. RESPIRATORY SYSTEM: Unlabored breathing, clear to auscultation anteriorly. HEART: S1, S2. Regular rate and rhythm. ABDOMEN: Soft, no tenderness. LABS: Hemoglobin 11.1, white count 7.5, BUN of 20, creatine 0.7. DIAGNOSTIC IMPRESSION AND PLAN: 1. Patient with Pseudomonas in catheter-associated urinary tract infection, overall response to Zosyn, transition to cefepime 2 g q.12 hours for 10 days. 2. Patient with sacral wound, culture with multiple pathogen; however, she is negative reported and the patient improved, more likely colonized with wound care with wound VAC and follow up with the [facility] as scheduled. MMODL / IJN: [id number] /
== END 2020-03-11 15:22 | DRG 698 ==
LOC: EC 06:01 → 4SSUR 08:05 → 5NMEDONC 08:45
PROVIDERS: ADMIT Internal Medicine; ATTEND Internal Medicine
PROC: 05HD33Z Insertion of Infusion Device into Right Cephalic Vein, Percutaneous Approach (ICD-10-PCS; principal; 2020-03-11 14:55)
DX: T83.518A Infection and inflammatory reaction due to other urinary catheter, initial encounter (principal); L89.154 Pressure ulcer of sacral region, stage 4; A41.9 Sepsis, unspecified organism; E87.2 Acidosis; N39.0 Urinary tract infection, site not specified; Y84.6 Urinary catheterization as the cause of abnormal reaction of the patient, or of later complication, without mention of misadventure at the time of the procedure; E78.5 Hyperlipidemia, unspecified; B96.5 Pseudomonas (aeruginosa) (mallei) (pseudomallei) as the cause of diseases classified elsewhere; G35 Multiple sclerosis; Z20.828 Contact with and (suspected) exposure to other viral communicable diseases; N31.9 Neuromuscular dysfunction of bladder, unspecified; Z79.82 Long term (current) use of aspirin; Z79.890 Hormone replacement therapy; Z79.899 Other long term (current) drug therapy; Z82.49 Family history of ischemic heart disease and other diseases of the circulatory system; Z83.3 Family history of diabetes mellitus; Z86.19 Personal history of other infectious and parasitic diseases; Z87.440 Personal history of urinary (tract) infections; Z99.3 Dependence on wheelchair
CPT/HCPCS: 36410; 36415; 70553; 71046; 72156; 76937; 80048; 80053; 81001; 83605; 83690; 83735; 84484; 85025; 85027; 85610; 85730; 87040; 87070; 87075; 87077; 87086; 87186; 87205; 87635; 93005; 96361; 96365; 99291

== ENCOUNTER 2020-03-22 13:54 | Observation (INO) | payer OTHER ==
[2020-03-22] MEDS ORDERED: CEFEPIME 2 GM in SODIUM CHLORIDE 0.9% 100 ML IVPB STA (14:36)
--- NOTE | 2020-03-22 14:42 | ED ---
Recheck HPI - General Chief Complaint: Recheck/Abnormal Lab/Rx Stated Complaint: MIDLINE MALFUNCTION Time Seen by Provider: 03/22/20 14:00 Source: EMS Mode of arrival: EMS Limitations: no limitations - History of Present Illness Initial Comments: Patient is a 49-year-old female, History of MS, wheelchair bound, [place], returning to the emergency department via EMS from [facility] for concerns of a midline malfunction. Patient has been on cefepime secondary to a UTI as well as an infected sore. Patient was discharged from the ER on the with a midline in place, this midline ended up going bad and [facility] had a company come out on February 12 to attempt a PICC line however they were unsuccessful. They placed another midline in the left arm. This midline again went bad so the company came back out on the and placed another midline to the right upper arm. They have had problems with this midline since it was placed yesterday, they are not able to get the antibiotic to flow and there is no blood returned. So patient was sent into the ER for a possible midline or another PICC line placement. Patient is post to be receiving her antibiotic's twice daily, her last dose of antibiotic was yesterday morning. Patient denies any fevers, chills, shortness of breath or chest pain. She states she has no other complaints other than this midline problem. Upon arrival to the ER, patient's vital signs are stable. - Related Data Home Medications Medication Instructions Recorded Confirmed Acetaminophen Tab [Tylenol] 650 mg PO Q6HR PRN 05/17/16 03/22/20 Folic Acid 1 mg PO DAILY@1600 08/22/16 03/22/20 Levothyroxine Sodium [Synthroid] 50 mcg PO DAILY@0700 08/22/16 03/22/20 Ferrous Sulfate [Iron (65 MG 325 mg PO TID@0700,1300,1900 11/03/17 03/22/20 Elemental)] Cyanocobalamin [Vitamin B-12] 500 mcg PO DAILY@1600 01/12/19 03/22/20 Potassium Chloride ER [K-Dur 20] 20 meq PO BID@0700,1600 01/12/19 03/22/20 Baclofen [Lioresal] 20 mg PO TID@0700,1300,1900 06/05/19 03/22/20 Cholecalciferol (Vitamin D3) 125 mcg PO DAILY@1600 06/05/19 03/22/20 [Vitamin D3] Aspirin 81 mg PO DAILY@159909/15/19 03/22/20 Multivitamins, Thera [Multivitamin 1 tab PO DAILY@1600 01/31/20 03/22/20 (formulary)] Ondansetron [Zofran] 4 mg PO Q8HR PRN 01/31/20 03/22/20 Pravastatin Sodium [Pravachol] 40 mg PO HS@199901/31/20 03/22/20 Pro-Stat Awc 30 ml PO TID@0700,1200,1700 01/31/20 03/22/20 Sennosides [Senna] 8.6 mg PO BID@0700,1600 01/31/20 03/22/20 Dimethyl Fumarate [Tecfidera] 240 mg PO BID@0700,1600 03/08/20 03/22/20 Previous Rx's Medication Instructions Recorded Pantoprazole [Protonix] 40 mg PO DAILY 42 Days #42 02/05/20 tablet. Cefepime [Maxipime] 2 gm IVPB Q12H #28 bag 03/11/20 Gabapentin [Neurontin] 300 mg PO TID@0700,1300,1900 #10 03/11/20 cap HYDROcodone/APAP 5-325MG [[place] 1 tab PO Q6H PRN 2 Days #10 tab 03/11/20 5-325] Allergies Allergy/AdvReac Type Severity Reaction Status Date / Time adhesive tape Allergy Rash/Hives Verified 03/22/20 14:28 cinnamon Allergy Rash/Hives Verified 03/22/20 14:28 Review of Systems ROS Statement: Those systems with pertinent positive or pertinent negative responses have been documented in the HPI. ROS Other: All systems not noted in ROS Statement are negative. Past Medical History Past Medical History: Hyperlipidemia, Musculoskeletal Disorder, Neurologic Disorder, Pneumonia, Renal Disease, Skin Disorder Additional Past Medical History / Comment(s): Multiple sclerosis stage IV-wheelchair bound, L side weaker than right, past renal failure with hemodialysis-last time was July 2016, mostly healed sacral decub, sacral osteomylitis, neurogenic bladder with indwelling [place], current UTI, past sepsis, iron deficiency anemia. History of Any Multi-Drug Resistant Organisms: ESBL, MRSA, VRE Date of last positivie culture/infection: 03/08/20 MRSA; 05/18/16- VRE; ESBL 08/27/17 MDRO Source:: Urine-ESBL; MRSA Buttock; VRE buttock Past Surgical History: No Surgical Hx Reported Additional Past Surgical History / Comment(s): LP, debridement decubitus sacral ulcer, hemodialysis cath since removed, picc lines Past Anesthesia/Blood Transfusion Reactions: No Reported Reaction Additional Past Anesthesia/Blood Transfusion Reaction / Comment(s): NEVER HAD ANY GENERAL ANES Past Psychological History: No Psychological Hx Reported Smoking Status: Never smoker Past Alcohol Use History: None Reported Past Drug Use History: None Reported - Past Family History Father History Unknown: Yes Additional Family Medical History / Comment(s): PTS DAD LIVED IN [place]- SHE'S NOT SURE WHAT HE FROM. HE HAD HYPOTENSION. Mother Family Medical History: Coronary Artery Disease (CAD), Diabetes Mellitus, Hyperlipidemia, Hypertension Additional Family Medical History / Comment(s): CARDIAC STENTS General Exam - General Exam Comments Initial Comments: GENERAL: Patient is well-developed and well-nourished. Patient is nontoxic and in no acute distress. HEAD: Atraumatic, normocephalic. EYES: Pupils equal round and reactive to light, extraocular movements intact, sclera anicteric, conjunctiva are normal. Eyelids were unremarkable. ENT: TMs normal, nares patent, oropharynx clear without exudates. Moist mucous membranes. NECK: Normal range of motion, supple without lymphadenopathy or JVD. LUNGS: Unlabored respirations. Breath sounds clear to auscultation bilaterally and equal. No wheezes rales or rhonchi. HEART: Regular rate and rhythm without murmurs, rubs or gallops. ABDOMEN: Soft, nontender, normoactive bowel sounds. No guarding, no rebound. No masses appreciated. : Deferred MUSCULOSKELETAL: Normal extremities with adequate strength and normal range of motion, no pitting or edema. No clubbing or cyanosis. NEUROLOGICAL: Patient is alert and oriented x 3. Motor and sensory are also intact. Cranial nerves II through XII grossly intact. Symmetrical smile. Normal speech, normal gait. PSYCH: Normal mood, normal affect. SKIN: Warm, Dry, normal turgor, no rashes or lesions noted. Limitations: no limitations Course Vital Signs 03/22/20 13:57 Temperature 98.8 F Pulse Rate 86 Respiratory 20 Rate Blood Pressure 131/80 O2 Sat by Pulse 97 Oximetry Medical Decision Making - Medical Decision Making Patient is a 49-year-old female here from [facility] for a midline malf unction. Patient has had 2 different midlines as well as a trial of a PICC line that has been unsuccessful. She is supposed to be taking cefepime every 12 hours for sepsis, until March 26. Patient's last dose was yesterday morning. We did give her dose in the ER. A peripheral IV line was started, I did speak with [facility] who stated they were not going to be able to do the midline again. Pt's midline was removed. Patient will be admitted for possible midline or PICC line placement. Patient accepted by Dr. Mc. Case discussed with Dr. Hatfield. - Lab Data Result diagrams: 03/22/20 14:40 03/22/20 14:40 Lab Results 03/22/20 03/22/20 03/22/20 Range/Units 14:40 14:40 14:40 WBC 3.1 L (3.8-10.6) k/uL RBC 4.13 (3.80-5.40) m/uL Hgb 11.8 (11.4-16.0) gm/dL Hct 35.5 (34.0-46.0) % MCV 86.0 (80.0-100.0) fL MCH 28.5 (25.0-35.0) pg MCHC 33.1 (31.0-37.0) g/dL RDW 16.6 H (11.5-15.5) % Plt Count 336 (150-450) k/uL MPV 6.8 Neutrophils % (Manual) 63 % Lymphocytes % (Manual) 25 % Monocytes % (Manual) 10 % Eosinophils % (Manual) 2 % Myelocytes % 1 % Neutrophils # (Manual) 1.95 (1.3-7.7) k/uL Lymphocytes # (Manual) 0.78 L (1.0-4.8) k/uL Monocytes # (Manual) 0.31 (0-1.0) k/uL Eosinophils # (Manual) 0.06 (0-0.7) k/uL Myelocytes # (Manual) 0.03 H (0) k/uL Nucleated RBCs 0 (0-0) /100 WBC Manual Slide Review Performed Anisocytosis Slight Sodium 137 (137-145) mmol/L Potassium 4.6 (3.5-5.1) mmol/L Chloride 107 (98-107) mmol/L Carbon Dioxide 24 (22-30) mmol/L Anion Gap 6 mmol/L BUN 16 (7-17) mg/dL Creatinine 0.53 (0.52-1.04) mg/dL Est GFR (CKD-EPI)AfAm >90 (>60 ml/min/1.73 sqM) Est GFR (CKD-EPI)NonAf >90 (>60 ml/min/1.73 sqM) Glucose 97 (74-99) mg/dL Calcium 8.9 (8.4-10.2) mg/dL Total Bilirubin 0.4 (0.2-1.3) mg/dL AST 29 (14-36) U/L ALT 23 (4-34) U/L Alkaline Phosphatase 86 (38-126) U/L Total Protein 5.7 L (6.3-8.2) g/dL Albumin 3.2 L (3.5-5.0) g/dL Urine Color Yellow Urine Appearance Turbid H (Clear) Urine pH 6.5 (5.0-8.0) Ur Specific [place] 1.012 (1.001-1.035) Urine Protein 1+ H (Negative) Urine Glucose (UA) Negative (Negative) Urine Ketones Negative (Negative) Urine Blood Moderate H (Negative) Urine Nitrite Negative (Negative) Urine Bilirubin Negative (Negative) Urine Urobilinogen <2.0 (<2.0) mg/dL Ur Leukocyte Esterase Large H (Negative) Urine RBC 46 H (0-5) /hpf Urine WBC 44 H (0-5) /hpf Ur Squamous Epith Cells 3 (0-4) /hpf Uric Acid Crystals Few H (None) /hpf Urine Bacteria Few H (None) /hpf Urine Mucus Occasional H (None) /hpf Urine Yeast (Budding) Many H (None) /hpf Disposition Clinical Impression: Urinary tract infection, Decubitus ulcer, IV infiltration Disposition: ADMITTED IP TO THIS [facility] Condition: Stable Referrals: Chace Mojica MD [Primary Care Provider] - 1-2 days Decision Date: 03/22/20 Decision Time: 15:01
[2020-03-22 14:55] LABS: Anisocytosis Slight; HCT 35.5 % (34.0-46.0); HGB 11.8 gm/dL (11.4-16.0); MCH 28.5 pg (25.0-35.0); MCHC 33.1 g/dL (31.0-37.0); Mean Platelet Volume 6.8; Platelet Count 336 k/uL (150-450); RBC 4.13 m/uL (3.80-5.40); RDW 16.6 % (11.5-15.5); WBC 3.1 k/uL (3.8-10.6)
[2020-03-22] MEDS ORDERED: NALOXONE 0.4 MG/ML 1 ML VIAL IV PRN (14:55)
[2020-03-22 15:04] LABS: ALT 23 U/L (4-34); AST 29 U/L (14-36); African American GFR (CKD) >90 (>60 ml/min/1.73 sqM); Albumin 3.2 g/dL (3.5-5.0); Alkaline Phosphatase 86 U/L (38-126); Anion Gap 6 mmol/L; Blood Urea Nitrogen 16 mg/dL (7-17); Calcium 8.9 mg/dL (8.4-10.2); Carbon Dioxide 24 mmol/L (22-30); Chloride 107 mmol/L (98-107); Glucose 97 mg/dL (74-99); Non-African American GFR(CKD) >90 (>60 ml/min/1.73 sqM); Potassium 4.6 mmol/L (3.5-5.1); Sodium 137 mmol/L (137-145); Total Bilirubin 0.4 mg/dL (0.2-1.3); Total Protein 5.7 g/dL (6.3-8.2)
[2020-03-22 15:07] LABS: Appearance,Urine Turbid (Clear); Bacteria,Urine Few /hpf; Bilirubin,Urine Negative (Negative); Blood,Urine Moderate (Negative); Budding Yeast,Urine Many /hpf; Color,Urine Yellow; Glucose,Urine (UA) Negative (Negative); Ketones,Urine Negative (Negative); Leukocyte Esterase,Urine Large (Negative); Mucus,Urine Occasional /hpf; Nitrite,Urine Negative (Negative); PH, Urine 6.5 (5.0-8.0); Protein,Urine 1+ (Negative); RBC,Urine 46 /hpf (0-5); Specific Gravity,Urine 1.012 (1.001-1.035); Squamous Epithelial Cell,Urine 3 /hpf (0-4); Uric Acid Crystals,Urine Few /hpf; Urobilinogen,Urine <2.0 mg/dL (<2.0); WBC,Urine 44 /hpf (0-5)
[2020-03-22 15:16] LABS: Eosinophils # (M) 0.06 k/uL (0-0.7); Lymphocytes # (M) 0.78 k/uL (1.0-4.8); Monocytes # (M) 0.31 k/uL (0-1.0); Myelocytes # (M) 0.03 k/uL (0); Myelocytes % 1 %; Neutrophils # (M) 1.95 k/uL (1.3-7.7); Neutrophils % (M) 63 %; Nucleated Red Blood Cells 0 /100 WBC (0-0); Total Cells Counted 200
[2020-03-22] MEDS ORDERED: ACETAMINOPHEN TAB 325 MG TAB PO PRN (18:11)
[2020-03-22] MEDS ORDERED: ONDANSETRON 4 MG TAB PO PRN (18:11)
[2020-03-22] MEDS ORDERED: TEMAZEPAM 15 MG CAP PO PRN (18:13)
[2020-03-22] MEDS ORDERED: ALPRAZolam 0.25 MG TAB PO PRN (18:13)
[2020-03-22] MEDS ORDERED: CEFEPIME 2 GM VIAL IVPB SCH (18:15)
--- NOTE | 2020-03-22 19:03 | HP ---
HISTORY AND PHYSICAL DATE OF SERVICE: 03/22/2020 CHIEF COMPLAINT: Medline malfunction. HISTORY OF PRESENT ILLNESS: This 49-year-old woman with a past medical of multiple medical problems being followed by Dr. Mojica in the outpatient setting had a past medical history of multiple medical problems including hyperlipidemia, history of pneumonia, history of multiple sclerosis, stage IV ulcers in the sacral decubitus, history of past renal failure with hemodialysis, history of ESBL, MRSA, VRE. Was recently admitted to [facility] with features of UTI and stage IV decubitus ulcers and sepsis. The patient was evaluated by Infectious Disease. The culture showed multiple organisms include Morganella morganii, strep agalactiae and MRSA and Pseudomonas aeruginosa. The patient was given a Medline and was sent to [facility] and in the ECF apparently another PICC line was attempted, which was not successful. Subsequently another Medline inserted which also became leaking and the patient was sent to [facility] because of the lack of IV access at this time. The UA is still abnormal. The multiple decubitus ulcers are still active. There is no history of fever, rigors, chills. No history of headache, loss of consciousness, seizures. PAST MEDICAL HISTORY: History of recent sepsis related to multiple decubitus ulcers and UTI, history of hyperlipidemia, history of DJD, history of multiple sclerosis, history ESBL, MRSA, VRE. MEDICATIONS: Medications prior to admission, home medications, Senna, ProStat, pravastatin, potassium, Protonix, Zofran, multivitamin, Synthroid, [place], Neurontin, folic acid, iron, Tecfidera, vitamin D3, Maxipime, Lioresal, aspirin, Tylenol. ALLERGIES: ADHESIVE TAPES and CINNAMON. FAMILY HISTORY: History of CAD, diabetes, hypertension, hyperlipidemia. SOCIAL HISTORY: No smoking. No history of alcohol use. REVIEW OF SYSTEMS: ENT: No diminished vision or hearing. CARDIOVASCULAR: No angina. RESPIRATORY: No cough. GI: As mentioned earlier. : As mentioned earlier. NERVOUS SYSTEM: As mentioned earlier. ALLERGY/IMMUNOLOGY: No asthma or hayfever. MUSCULOSKELETAL: As mentioned earlier. HEMATOLOGY: No history of anemia. ENDOCRINE: Hypothyroidism. CONSTITUTIONAL: As mentioned earlier. DERMATOLOGY: As mentioned earlier. RHEUMATOLOGY: Negative. PSYCHIATRY: As mentioned earlier. PHYSICAL EXAMINATION: GENERAL: Patient is alert and oriented times three. VITAL SIGNS: Pulse 86, blood pressure 105/74, respirations 18, temperature 98.2, pulse ox 93% on room air. HEENT: Conjunctivae normal. Oral mucosa moist. NECK: No jugular venous distention. No carotid bruits. RESPIRATORY: Breath sounds diminished at the bases. A few scattered rhonchi and crackles. HEART: S1 and S2, muffled. ABDOMEN: Soft, obese, no tenderness. EXTREMITIES: Bilateral leg edema. NERVOUS: Higher functions as mentioned earlier. Diffuse weakness and wasting also present. SKIN: Diffuse edema present and decubitus ulcers in the sacral area, grade 3 to 4. JOINTS: No active deforming arthropathy. LYMPHATICS: No lymph nodes in the neck or axillae. LABS: At this time shows WBC 3.2, hemoglobin 11.8. UA noted. ASSESSMENT: 1. Acute urinary tract infection with failure of IV access. 2. History of recent urinary tract infection with Pseudomonas aeruginosa. 3. History of recent wound culture positive for Morganella morganii, strep agalactiae and MRSA. 4. History of recent two Medline insertions and leaking. 5. History of recent sepsis. 6. History of multiple sclerosis with multiple hospitalizations and contractures and gait dysfunction. 7. Hyperlipidemia. 8. History of pneumonia. 9. History of gait dysfunction, wheelchair-bound. 10.Remote history of renal failure and hemodialysis. 11.History of sacral osteomyelitis. 12.History of neurogenic bladder with indwelling Chaves catheter. 13.History of anemia. 14.History of ESBL, MRSA, VRE. 15.Obesity with body mass index 41.6. 16.FULL CODE. RECOMMENDATIONS AND DISCUSSION: In this 49-year-old woman who presented with multiple complex medical issues, we will monitor the patient closely. A peripheral IV has been accessed. Recommend to continue the antibiotics. Cefepime has been initiated. I would also recommend to resume the home medications. Infectious disease evaluation. Wound Care for sacral wound care and Medline or PICC line by Interventional Radiology. Prognosis guarded because of multiple complex medical issues. Further recommendations to follow. Medication reconciliation and symptomatic treatment also will be provided. Please see the chart for further details. MMODL / IJN: [id number] /
[2020-03-22] MEDS: HEPARIN SODIUM,PORCINE 5,000 UNIT/ML 1 ML VIAL SQ SCH (20:41)
[2020-03-22] MEDS: PRAVASTATIN SODIUM 40 MG TAB PO SCH (20:41)
[2020-03-22] MEDS: BACLOFEN 10 MG TAB PO SCH (20:41)
[2020-03-22] MEDS: FERROUS SULFATE 325 MG TAB PO SCH (20:41)
[2020-03-22] MEDS: GABAPENTIN 300 MG CAP PO SCH (20:41)
[2020-03-22] MEDS: HYDROcodone/APAP 5-325MG 1 EACH TAB PO PRN (20:42)
[2020-03-22 22:06] LABS: Prothrombin Time 10.8 sec (9.0-12.0)
[2020-03-22] MEDS: CEFEPIME 2 GM in SODIUM CHLORIDE 0.9% 100 ML IVPB SCH (22:39)
[2020-03-23] MEDS ORDERED: CEFEPIME 2 GM in SODIUM CHLORIDE 0.9% 100 ML IVPB SCH ×4
[2020-03-23] MEDS: HYDROcodone/APAP 5-325MG 1 EACH TAB PO PRN ×3 (05:45→19:41)
[2020-03-23 06:35] LABS: Anisocytosis Slight; HCT 35.8 % (34.0-46.0); HGB 11.4 gm/dL (11.4-16.0); Hypochromasia Slight; MCH 27.7 pg (25.0-35.0); MCHC 31.9 g/dL (31.0-37.0); MCV 86.8 fL (80.0-100.0); Mean Platelet Volume 7.1; Platelet Count 330 k/uL (150-450); RBC 4.13 m/uL (3.80-5.40); RDW 16.9 % (11.5-15.5); WBC 3.3 k/uL (3.8-10.6)
[2020-03-23 06:57] LABS: Band Neutrophils % 1 %; Basophils # (M) 0.07 k/uL (0-0.2); Eosinophils # (M) 0.07 k/uL (0-0.7); Lymphocytes # (M) 0.83 k/uL (1.0-4.8); Monocytes # (M) 0.23 k/uL (0-1.0); Neutrophils % (M) 63 %; Nucleated Red Blood Cells 0 /100 WBC (0-0); Total Cells Counted 100
[2020-03-23] MEDS: FERROUS SULFATE 325 MG TAB PO SCH ×3 (07:30→19:36)
[2020-03-23] MEDS: BACLOFEN 10 MG TAB PO SCH ×3 (07:30→19:36)
[2020-03-23] MEDS: GABAPENTIN 300 MG CAP PO SCH ×3 (07:30→19:36)
[2020-03-23] MEDS: PANTOPRAZOLE 40 MG TABLET PO SCH (07:30)
[2020-03-23] MEDS: POTASSIUM CHLORIDE ER 20 MEQ TAB.ER PO SCH ×2 (07:31→16:57)
[2020-03-23] MEDS: LEVOTHYROXINE 50 MCG TAB PO SCH (07:31)
[2020-03-23] MEDS: SENNOSIDES 8.6 MG TAB PO SCH ×2 (07:31→16:56)
[2020-03-23] MEDS: HEPARIN SODIUM,PORCINE 5,000 UNIT/ML 1 ML VIAL SQ SCH ×2 (07:31→20:56)
[2020-03-23] MEDS: CEFEPIME 2 GM in SODIUM CHLORIDE 0.9% 100 ML IVPB SCH ×2 (07:31→20:56)
[2020-03-23] MEDS: DIMETHYL FUMARATE 240 MG PO SCH ×2 (07:36→16:57)
[2020-03-23 09:34] LABS: African American GFR (CKD) 132.6 (60.0-200.0); Anion Gap 11.2 mmol/L (4.00-12.00); Calcium 8.6 mg/dL (8.7-10.3); Carbon Dioxide 20.8 mmol/L (21.6-31.8); Non-African American GFR(CKD) 114.4 (60.0-200.0); Potassium 4.1 mmol/L (3.5-5.5)
--- NOTE | 2020-03-23 15:32 | XR ---
EXAMINATION TYPE: XR chest 1V portable DATE OF EXAM: 03/23/2020 COMPARISON: 03/08/2020 HISTORY: Short of breath TECHNIQUE: FINDINGS: There is poor inspiration. Heart is probably enlarged. There is minimal pulmonary congestio n. Bony thorax appears intact. IMPRESSION: Pulmonary congestion improved compared to old exam and consistent with improving congesti ve heart failure.
--- NOTE | 2020-03-23 16:25 | PN ---
PROGRESS NOTE DATE OF SERVICE: 03/23/2020. INTERVAL HISTORY: This is a 49-year-old woman with a recent urinary tract infection was admitted with difficulty with IV access. Infectious Disease is following the patient closely. No chest pain. No palpitations. No fever. EXAM: VITAL SIGNS: Pulse 95, blood pressure 119/82, respirations 17, temperature 98.3, pulse ox 100% on room air. HEENT: Conjunctivae normal. Oral mucosa moist. NECK: No jugular venous distention. No carotid bruits. No lymph node enlargement. RESPIRATORY: Breath sounds diminished at the bases. No rhonchi, no crackles. HEART: S1 and S2, muffled. ABDOMEN: Soft, no tenderness. No masses palpable. EXTREMITIES: Bilateral leg edema. NERVOUS: No focal deficits. LABS: WBC 3.3 and glucose 120. UA noted. Cultures are pending at this time. ASSESSMENT: 1. Acute urinary tract infection with failure of IV access. 2. History of recent urinary tract infection with Pseudomonas aeruginosa. 3. History of recent wound culture positive for Morganella morganii, strep agalactiae and MRSA. 4. History of recent two Medline insertions leaking. 5. History of recent sepsis. 6. History of multiple sclerosis with multiple hospitalization with contractures and gait dysfunction. 7. Hyperlipidemia. 8. History of pneumonia. 9. History of gait dysfunction. 10.Wheelchair-bound. 11.Remote history of renal failure on hemodialysis. 12.History of sacral osteomyelitis. 13.History of neurogenic bladder with indwelling Chaves catheter. 14.History of anemia. 15.ESBL, MRSA, VRE. 16.Obesity with body mass index of 41.6. 17.FULL CODE. RECOMMENDATIONS AND DISCUSSION: I recommend to continue current management and continue symptomatic treatment. Intervention radiology evaluation possible PICC line. Infectious disease evaluation. I would also recommend baseline chest x-ray and D-dimer. Also further recommendations to follow. Infectious Disease has been asked to consult. MMODL / IJN: [id number] /
[2020-03-23] MEDS: ASPIRIN 81 MG PO SCH (16:56)
[2020-03-23] MEDS: CYANOCOBALAMIN 500 MCG TAB PO SCH (16:57)
[2020-03-23] MEDS: CHOLECALCIFEROL 1,000 UNIT TAB PO SCH (16:57)
[2020-03-23] MEDS: MULTIVITAMINS, THERA 1 EACH TAB PO SCH (16:57)
[2020-03-23] MEDS: FOLIC ACID 1 MG TAB PO SCH (16:57)
[2020-03-23] MEDS: PRAVASTATIN SODIUM 40 MG TAB PO SCH (20:56)
--- NOTE | 2020-03-23 23:13 | P.CONS ---
History of Present Illness - Reason for Consult Consult date: 03/23/20 UTI and sacral pressure ulcer Requesting physician: Clementine Mc - Chief Complaint Nonfunctioning mid line x few days - History of Present Illness Patient is a 49-year-old female with a past medical history significant for MS in this patient who was recently admitted at this facility diagnosed with the sepsis from urinary source culture positive for Pseudomonas patient did get a midline and was subsequently discharged back to care home on IV cefepime patient has been sent back to the ER yesterday with concern for malfunctioning of the midline, apparently the patient did have multiple attempts and placement of the midline which are not working and the patient not been able to get ride emetics subsequent the patient has been sent to the ER for further management and placement of possible PICC line patient had denies having any fever or any chills, denies having any chest pain or shortness of breath or cough no nausea no abdominal pain no diarrhea no fever has been reported noted to be some mild leukopenia but elevated D-dimer his urine has been positive he has been continued on cefepime chest x-ray pulmonary congestion improved control exam infection he was consulted for further management of antibiotic therapy Review of Systems Positive point has been mentioned in the HPI rest of the systems are negative Past Medical History Past Medical History: Hyperlipidemia, Musculoskeletal Disorder, Neurologic Disorder, Pneumonia, Renal Disease, Skin Disorder Additional Past Medical History / Comment(s): Multiple sclerosis stage IV- wheelchair bound, L side weaker than right, past renal failure with hemodialysis-last time was July 2016, mostly healed sacral decub, sacral osteomylitis, neurogenic bladder with indwelling [place], current UTI, past sepsi s, iron deficiency anemia. History of Any Multi-Drug Resistant Organisms: ESBL, MRSA, VRE Year Discovered:: 03/08/20 MRSA; 05/18/16- VRE; ESBL 08/27/17 MDRO Source:: Urine-ESBL; MRSA Buttock; VRE buttock Past Surgical History: No Surgical Hx Reported Additional Past Surgical History / Comment(s): LP, debridement decubitus sacral ulcer, hemodialysis cath since removed, picc lines Past Anesthesia/Blood Transfusion Reactions: No Reported Reaction Additional Past Anesthesia/Blood Transfusion Reaction / Comm: NEVER HAD ANY GEN ERAL ANES Past Psychological History: No Psychological Hx Reported Smoking Status: Never smoker Past Alcohol Use History: None Reported Past Drug Use History: None Reported - Past Family History Father History Unknown: Yes Additional Family Medical History / Comment(s): PTS DAD LIVED IN [place]- SHE'S NOT SURE WHAT HE FROM. HE HAD HYPOTENSION. Mother Family Medical History: Coronary Artery Disease (CAD), Diabetes Mellitus, Hyperlipidemia, Hypertension Additional Family Medical History / Comment(s): CARDIAC STENTS Medications and Allergies Home Medications Medication Instructions Recorded Confirmed Type Acetaminophen Tab [Tylenol] 650 mg PO Q6HR PRN 05/17/16 03/22/20 History Folic Acid 1 mg PO DAILY@1600 08/22/16 03/22/20 History Levothyroxine Sodium [Synthroid] 50 mcg PO DAILY@0700 08/22/16 03/22/20 History Ferrous Sulfate [Iron (65 MG 325 mg PO TID@0700,1300,1900 11/03/17 03/22/20 Hi story Elemental)] Cyanocobalamin [Vitamin B-12] 500 mcg PO DAILY@1600 01/12/19 03/22/20 History Potassium Chloride ER [K-Dur 20] 20 meq PO BID@0700,1600 01/12/19 03/22/20 History Baclofen [Lioresal] 20 mg PO TID@0700,1300,1900 06/05/19 03/22/20 History Cholecalciferol (Vitamin D3) 125 mcg PO DAILY@1600 06/05/19 03/22/20 History [Vitamin D3] Aspirin 81 mg PO DAILY@1600 09/15/19 03/22/20 History Multivitamins, Thera [Multivitamin 1 tab PO DAILY@1600 01/31/20 03/22/20 History (formulary)] Ondansetron [Zofran] 4 mg PO Q8HR PRN 01/31/20 03/22/20 History Pravastatin Sodium [Pravachol] 40 mg PO HS@199901/31/20 03/22/20 History Pro-Stat Aw[place] 30 ml PO TID@0700,1200,1700 01/31/20 03/22/20 History Sennosides [Senna] 8.6 mg PO BID@0700,1600 01/31/20 03/22/20 History Pantoprazole [Protonix] 40 mg PO DAILY 42 Days #42 02/05/20 03/22/20 Rx tablet. Dimethyl Fumarate [Tecfidera] 240 mg PO BID@0700,1600 03/08/20 03/22/20 History Cefepime [Maxipime] 2 gm IVPB Q12H #28 bag 03/11/20 03/22/20 Rx Gabapentin [Neurontin] 300 mg PO TID@0700,1300,1900 #10 03/11/20 03/22/20 Rx cap HYDROcodone/APAP 5-325MG [[place] 1 tab PO Q6H PRN 2 Days #10 tab 03/11/20 03/22/20 Rx 5-325] Allergies Allergy/AdvReac Type Severity Reaction Status Date / Time adhesive tape Allergy Rash/Hives Verified 03/22/20 14:28 cinnamon Allergy Rash/Hives Verified 03/22/20 14:28 Physical Exam Vitals: Vital Signs Temp Pulse Resp BP Pulse Ox 03/23/20 19:00 98.7 F 89 17 110/74 99 03/23/20 14:00 98.3 F 95 17 119/82 100 03/23/20 07:44 98.4 F 93 18 109/75 94 L 03/23/20 02:00 98.5 F 99 18 104/70 99 Intake and Output 03/23/20 03/23/20 03/24/20 14:59 22:59 06:59 Output Total 1200 Balance -1200 Output: Urine 1200 GENERAL DESCRIPTION: Middle-aged female lying in bed, no distress. No tachypnea or accessory muscle of respiration use. HEENT: Shows Pallor , no scleral icterus. Oral mucous membrane is dry. No pharyngeal erythema or thrush NECK: Trachea central, no thyromegaly. LUNGS: Unlabored breathing. Clear to auscultation anteriorly. No wheeze or crackle. HEART: S1, S2, regular rate and rhythm. No loud murmur ABDOMEN: Soft, no tenderness , guarding or rigidity, no organomegaly EXTREMITIES: No edema of feet. SKIN: No rash, no masses palpable. Stage IV sacral pressure ulcer with some surrounding excoriation and drainage NEUROLOGICAL: The patient is awake, alert, oriented x3, mood and affect normal. Results CBC & Chem 7: 03/23/20 06:00 03/23/20 06:00 Labs: Abnormal Lab Results - Last 24 Hours (Table) 03/23/20 03/23/20 03/23/20 Range/Units 06:00 06:00 15:34 WBC 3.3 L (3.8-10.6) k/uL RDW 16.9 H (11.5-15.5) % Lymphocytes # (Manual) 0.83 L (1.0-4.8) k/uL D-Dimer 0.94 H (<0.60) mg/L FEU Carbon Dioxide 20.8 L (21.6-31.8) mmol/L Creatinine 0.5 L (0.6-1.5) mg/dL BUN/Creatinine Ratio 28.00 H (12.00-20.00) Ratio Glucose 120 H (70-110) mg/dL Calcium 8.6 L (8.7-10.3) mg/dL Microbiology - Last 24 Hours (Table) 03/22/20 14:40 Urine Culture - Preliminary Urine,Voided Group D Enterococcus Assessment and Plan Assessment: 1- patient with recent admission to this facility with sepsis source was catheter associated Urinary tract infection and urine was fine as a Pseudomonas blood culture were negative patient was getting cefepime no admitted to the hospital with nonfunctioning midline patient with no fever or elevated white count 2-patient also have stage IV sacral pressure ulcer noticed to have more drainage and consult for possible secondary infection (1) Urinary tract infection Current Visit: Yes Status: Acute Code(s): N39.0 - URINARY TRACT INFECTION, SITE NOT SPECIFIED SNOMED Code(s): 98391982 (2) Pressure ulcer of coccygeal region, stage 4 Current Visit: No Status: Acute Code(s): L89.154 - PRESSURE ULCER OF SACRAL REGION, STAGE 4 SNOMED Code(s): 391539385 Plan: 1-we will advised placement of a PICC line instead of her midline 2-we will obtain a CT of the sacral area to make sure no evidence of any bony destruction that may need further workup 3- cefepime 2 g every 12 hours to continue 4-local wound care with Aquacel silver dressing We will follow on clinical condition and cultures to further adjust medication if needed Thank you for this consultation will follow this patient with you Time with Patient: Greater than 30
[2020-03-24] MEDS: HYDROcodone/APAP 5-325MG 1 EACH TAB PO PRN ×2 (04:50→17:22)
[2020-03-24 04:53] LABS: Appearance,Urine Turbid (Clear); Bacteria,Urine Occasional /hpf; Bilirubin,Urine Negative (Negative); Blood,Urine Small (Negative); Color,Urine Yellow; Glucose,Urine (UA) Negative (Negative); Ketones,Urine Negative (Negative); Leukocyte Esterase,Urine Large (Negative); Mucus,Urine Rare /hpf; Nitrite,Urine Negative (Negative); PH, Urine 5.5 (5.0-8.0); Protein,Urine 1+ (Negative); RBC,Urine 103 /hpf (0-5); Specific Gravity,Urine 1.011 (1.001-1.035); Squamous Epithelial Cell,Urine 2 /hpf (0-4); Urobilinogen,Urine <2.0 mg/dL (<2.0); WBC,Urine >182 /hpf (0-5)
[2020-03-24 06:16] LABS: Anisocytosis Slight; Basophils % (A) 1 %; Eosinophils # (A) 0.1 k/uL (0-0.7); Eosinophils % (A) 3 %; HGB 11.6 gm/dL (11.4-16.0); Hypochromasia Slight; Lymphocytes # (A) 0.9 k/uL (1.0-4.8); Lymphocytes % (A) 26 %; MCH 28.8 pg (25.0-35.0); MCV 87.2 fL (80.0-100.0); Monocytes # (A) 0.3 k/uL (0-1.0); Monocytes % (A) 8 %; Neutrophils % (A) 59 %; Platelet Count 318 k/uL (150-450); RBC 4.01 m/uL (3.80-5.40); RDW 16.5 % (11.5-15.5); WBC 3.4 k/uL (3.8-10.6)
[2020-03-24] MEDS: POTASSIUM CHLORIDE ER 20 MEQ TAB.ER PO SCH ×2 (07:54→17:14)
[2020-03-24] MEDS: PANTOPRAZOLE 40 MG TABLET PO SCH (07:54)
[2020-03-24] MEDS: LEVOTHYROXINE 50 MCG TAB PO SCH (07:54)
[2020-03-24] MEDS: SENNOSIDES 8.6 MG TAB PO SCH ×2 (07:54→17:13)
[2020-03-24] MEDS: FERROUS SULFATE 325 MG TAB PO SCH ×3 (07:54→21:08)
[2020-03-24] MEDS: CEFEPIME 2 GM in SODIUM CHLORIDE 0.9% 100 ML IVPB SCH ×2 (07:54→19:45)
[2020-03-24] MEDS: BACLOFEN 10 MG TAB PO SCH ×3 (07:54→21:07)
[2020-03-24] MEDS: GABAPENTIN 300 MG CAP PO SCH ×3 (07:54→21:08)
[2020-03-24] MEDS: HEPARIN SODIUM,PORCINE 5,000 UNIT/ML 1 ML VIAL SQ SCH ×2 (07:56→21:08)
[2020-03-24] MEDS: DIMETHYL FUMARATE 240 MG PO SCH ×2 (07:56→17:13)
--- NOTE | 2020-03-24 09:52 | CT ---
EXAMINATION TYPE: CT sacrum wo con DATE OF EXAM: 03/24/2020 COMPARISON: CT abdomen and pelvis June 07, 2019 HISTORY: Buttock pain with non healing wound. CT DLP: 711.1 mGycm Automated exposure control for dose reduction was used. FINDINGS: Exam suboptimal due to patient's large body habitus. Abnormal low density tissue left of midline exte nds from skin surface to the posterior sacral region where there is bony destruction of the coccyx th at is new from June 07, 2019. Bone adjacent to abnormal soft tissue shows diffuse sclerosis. Area of involvement roughly 7.5 x 2.0 cm axial image 48. There is extension into the posterior presacral spa ce inferiorly axial image 53. No thick walled drainable fluid collection. Rectal fecal prominence is noted. IMPRESSION: Decubitus ulcer with bony destruction of the coccyx, findings consistent with chronic ost eomyelitis as there is diffuse sclerosis. Cannot exclude acute osteomyelitis if there has not been pr ior partial interval surgical resection. No drainable abscess identified currently.
[2020-03-24 10:50] LABS: African American GFR (CKD) 132.6 (60.0-200.0); Anion Gap 9.6 mmol/L (4.00-12.00); Calcium 8.8 mg/dL (8.7-10.3); Carbon Dioxide 20.4 mmol/L (21.6-31.8); Non-African American GFR(CKD) 114.4 (60.0-200.0)
[2020-03-24 11:01] VITALS: BMI 41.5
[2020-03-24] MEDS ORDERED: VANCOMYCIN IV PER PHARMACY 1 EACH MISC MISCELLANE PRN (14:58)
[2020-03-24] MEDS ORDERED: VANCOMYCIN 1,750 MG in SODIUM CHLORIDE 0.9% 500 ML 500 ML IVPB ONE (16:00)
[2020-03-24] MEDS: MULTIVITAMINS, THERA 1 EACH TAB PO SCH ×2 (17:12→17:13)
[2020-03-24] MEDS: CHOLECALCIFEROL 1,000 UNIT TAB PO SCH (17:12)
[2020-03-24] MEDS: ASPIRIN 81 MG PO SCH (17:13)
[2020-03-24] MEDS: CYANOCOBALAMIN 500 MCG TAB PO SCH (17:13)
[2020-03-24] MEDS: FOLIC ACID 1 MG TAB PO SCH (17:13)
--- NOTE | 2020-03-24 18:20 | PN ---
PROGRESS NOTE DATE OF SERVICE: 03/24/2020 This 49-year-old woman who was admitted with acute UTI with failure of IV access is being closely monitored at this time. Dr. Rivero is recommending a PICC line instead of the midline. CT of the sacrum was also recommended by Dr. Rivero to rule out the possibility of osteomyelitis. CT of sacrum showed a bony destruction of the coccyx, chronic osteomyelitis suspected. No chest pain. No palpitations. Past medical history reviewed. PHYSICAL EXAM: Patient is alert and oriented times three. Pulse 85, blood pressure 113/80. Respirations 17, temperature 98.2, pulse ox 96% on room air. HEENT: Conjunctivae normal. NECK: No JVD. CARDIOVASCULAR: S1, S2. Respirations: Breath sounds diminished in the bases. No rhonchi. No crackles. ABDOMEN: Soft, nontender. Legs are: No edema. No swelling. NERVOUS SYSTEM: Diffusely weak. LABS: WBC 13.5, hemoglobin 11.6, sodium 140, potassium 4. UA noted. The most recent urine culture showed group D Enterococcus. ASSESSMENT: 1. Acute urinary tract infection with group D Enterococcus with failure of IV access. 2. Possible sacral decubitus and sacral osteomyelitis. 3. History of urinary tract infection with Pseudomonas aeruginosa. 4. History of recent wound culture positive for Morganella morganii, strep agalactiae and MRSA. 5. History of recent two midline insertions and leaking. 6. History of recent sepsis. 7. History of multiple sclerosis with multiple hospitalizations with contractures and gait dysfunction. 8. Hyperlipidemia. 9. History of pneumonia. 10.History of gait dysfunction. 11.Wheelchair bound. 12.History of renal failure on hemodialysis. 13.History of sacral osteomyelitis. 14.History of neurogenic bladder with indwelling Chaves catheter. 15.History of anemia. 16.ESBL and MRSA, VRE history. 17.Obesity with body mass index of 41.6. 18.FULL CODE. RECOMMENDATIONS AND DISCUSSION: Recommend to continue current medications, symptomatic treatment, antibiotics. PICC line per Dr. Rivero. Outpatient antibiotics. Guarded prognosis because of multiple complex medical issues. Further recommendations to follow. MMODL / IJN: [id number] /
[2020-03-24] MEDS: PRAVASTATIN SODIUM 40 MG TAB PO SCH (21:08)
--- NOTE | 2020-03-24 22:44 | PN ---
PROGRESS NOTE DATE OF SERVICE: 03/24/2020 REASON FOR FOLLOWUP: 1. Urinary tract infection. 2. Sacral osteomyelitis. INTERVAL HISTORY: Patient is currently afebrile. The patient is breathing comfortably. The patient denies having any chest pain or shortness of breath or cough. No nausea, vomiting or abdominal pain or pain to the sacral area. On examination, her blood pressure is 157/88 with a pulse of 97, temperature 98. She is 100% on room air. General description is a middle-aged female lying in bed in no distress. Respiratory system: Unlabored breathing. Clear to auscultation anteriorly. Heart S1, S2. Regular rate and rhythm. ABDOMEN: Soft, no tenderness. LAB DATA: Hemoglobin 11.6, white count 3.4. Sedimentation rate of 30 with a CRP of 49. Urine showing VRE. DIAGNOSTIC IMPRESSION AND PLAN: Patient admitted to the hospital with nonfunctional PICC line in this patient with recent diagnosis of sepsis secondary to urinary source now with evidence of repeat urine showing a VRE, also with sacral osteomyelitis and culture positive for MRSA. We will add daptomycin to the cefepime. She will need a PICC line for outpatient antibiotic therapy. Continue supportive care. MMODL / IJN: [id number] /
[2020-03-25] MEDS ORDERED: VANCOMYCIN 1,750 MG in SODIUM CHLORIDE 0.9% 500 ML 500 ML IVPB SCH ×2
[2020-03-25] MEDS: HYDROcodone/APAP 5-325MG 1 EACH TAB PO PRN ×2 (03:48→11:07)
[2020-03-25 04:59] VITALS: RESP 17
[2020-03-25 06:20] LABS: Anisocytosis Slight; Basophils % (A) 0 %; Eosinophils # (A) 0.1 k/uL (0-0.7); Eosinophils % (A) 2 %; HCT 34.5 % (34.0-46.0); HGB 11.2 gm/dL (11.4-16.0); Hypochromasia Slight; Lymphocytes # (A) 0.7 k/uL (1.0-4.8); Lymphocytes % (A) 18 %; MCH 28.5 pg (25.0-35.0); MCHC 32.4 g/dL (31.0-37.0); MCV 87.9 fL (80.0-100.0); Mean Platelet Volume 6.9; Monocytes # (A) 0.3 k/uL (0-1.0); Monocytes % (A) 8 %; Neutrophils # (A) 2.7 k/uL (1.3-7.7); Neutrophils % (A) 70 %; Platelet Count 312 k/uL (150-450); RBC 3.92 m/uL (3.80-5.40); RDW 16.6 % (11.5-15.5); WBC 3.9 k/uL (3.8-10.6)
[2020-03-25 07:41] VITALS: BP 115/80; PULSE 91; TEMP 99.1
[2020-03-25] MEDS: CEFEPIME 2 GM in SODIUM CHLORIDE 0.9% 100 ML IVPB SCH (07:54)
[2020-03-25] MEDS: DIMETHYL FUMARATE 240 MG PO SCH (07:57)
[2020-03-25] MEDS: SENNOSIDES 8.6 MG TAB PO SCH (08:00)
[2020-03-25] MEDS: PANTOPRAZOLE 40 MG TABLET PO SCH (08:01)
[2020-03-25] MEDS: HEPARIN SODIUM,PORCINE 5,000 UNIT/ML 1 ML VIAL SQ SCH (08:01)
[2020-03-25] MEDS: BACLOFEN 10 MG TAB PO SCH ×2 (08:01→14:14)
[2020-03-25] MEDS: POTASSIUM CHLORIDE ER 20 MEQ TAB.ER PO SCH (08:01)
[2020-03-25] MEDS: GABAPENTIN 300 MG CAP PO SCH ×2 (08:01→14:14)
[2020-03-25] MEDS: FERROUS SULFATE 325 MG TAB PO SCH ×2 (08:01→14:14)
[2020-03-25] MEDS: LEVOTHYROXINE 50 MCG TAB PO SCH (08:01)
[2020-03-25 09:38] LABS: African American GFR (CKD) 124.9 (60.0-200.0); BUN/Creat Ratio 16.67 Ratio (12.00-20.00); Calcium 8.5 mg/dL (8.7-10.3); Non-African American GFR(CKD) 107.8 (60.0-200.0); Potassium 4.2 mmol/L (3.5-5.5)
--- NOTE | 2020-03-25 12:41 | P.DS ---
Providers Date of admission: 03/22/20 15:14 Expected date of discharge: 03/25/20 Attending physician: Clementine Mc Consults: 03/22/20 18:05 Consult Physician Routine Consulting Provider: Bobo Rivero Consult Reason/Comments: decub ulcers Do you want consulting provider notified?: Yes, Notify in am Primary care physician: Chace Mojica [facility] Course: Final diagnosis Acute urinary tract infection with group D enterococcus with failure of IV access Possible sacral decubitus and sacrum osteomyelitis History of urinary tract infection with pseudomonas aeruginosa history of recent wound cultures positive for Morganella morganii, strep agalactiae, and MRSA History of recent to midline insertions and leaking History of recent sepsis History of multiple sclerosis with multiple hospitalizations and contractures and gait dysfunction Hyperlipidemia History of pneumonia History of gait dysfunction Wheelchair-bound History of renal failure on hemodialysis history of sacral osteomyelitis History of neurogenic bladder with indwelling Chaves catheter history of anemia ESBL and MRSA, VRE history Obesity with body mass index of 41.6 Full code Discharge disposition Patient is being discharged in a stable condition with guarded prognosis to [facility]. Patient will follow-up with Dr. Mojica upon discharge. Patient will continue with IV antibiotics in the form of daptomycin and cefepime. Total time taken is greater than 35 minutes. History of present illness This is an 49-year-old female who was recently admitted with acute urinary tract infection with failure of IV access and was being closely monitored. She was seen and evaluated by infectious disease and recommending PICC line placement for continued IV antibiotic therapy in the outpatient setting. Patient is a resident of [facility] and will be returning there upon discharge. Patient to receive PICC line today. Currently no reports of chest pain, shortness of breath, or palpitations. Patient is afebrile. No reports of nausea or vomiting and patient is tolerating diet. Patient will be going to [facility]. Guarded prognosis. On exam vital signs are stable. Temp is 99.1F, pulse is 91, respirations are 17, blood pressure is 115/80, oxygen saturation is 98% on room air. Cardio S1, S2 are muffled. Respiratory shows diminished breath sounds at the bases with a few scattered rhonchi noted. Abdomen is soft and obese, and nontender. Nervous system shows mild diffuse weakness. Please refer to medication reconciliation sheet for a list of medications. Patient Condition at Discharge: Stable Plan - Discharge Summary Discharge Rx Participant: Yes New Discharge Prescriptions: New DAPTOmycin [Cubicin] 700 mg IVPB Q24HR #42 vial Cefepime [Maxipime] 2 gm IVPB Q12HR #84 vial Continue Acetaminophen Tab [Tylenol] 650 mg PO Q6HR PRN PRN Reason: Pain Folic Acid 1 mg PO DAILY@1600 Levothyroxine Sodium [Synthroid] 50 mcg PO DAILY@0700 Ferrous Sulfate [Iron (65 MG Elemental)] 325 mg PO TID@0700,1300,1900 Cyanocobalamin [Vitamin B-12] 500 mcg PO DAILY@1600 Potassium Chloride ER [K-Dur 20] 20 meq PO BID@0700,1600 Cholecalciferol (Vitamin D3) [Vitamin D3] 125 mcg PO DAILY@1600 Aspirin 81 mg PO DAILY@1600 Ondansetron [Zofran] 4 mg PO Q8HR PRN PRN Reason: Nausea And Vomiting Pro-Stat Awc 30 ml PO TID@0700,1200,1700 Sennosides [Senna] 8.6 mg PO BID@0700,1600 Pravastatin Sodium [Pravachol] 40 mg PO HS@2000 Multivitamins, Thera [Multivitamin (formulary)] 1 tab PO DAILY@1600 Pantoprazole [Protonix] 40 mg PO DAILY 42 Days #42 tablet. Dimethyl Fumarate [Tecfidera] 240 mg PO BID@0700,1600 Baclofen [Lioresal] 20 mg PO TID@0700,1300,1900 #6 tab Gabapentin [Neurontin] 300 mg PO TID@0700,1300,1900 #10 cap HYDROcodone/APAP 5-325MG [Leeds 5-325] 1 tab PO Q6H PRN 2 Days #10 tab PRN Reason: Pain Discontinued Cefepime [Maxipime] 2 gm IVPB Q12H #28 bag Discharge Medication List Acetaminophen Tab [Tylenol] 650 mg PO Q6HR PRN 05/17/16 [History] Folic Acid 1 mg PO DAILY@1600 08/22/16 [History] Levothyroxine Sodium [Synthroid] 50 mcg PO DAILY@0700 08/22/16 [History] Ferrous Sulfate [Iron (65 MG Elemental)] 325 mg PO TID@0700,1300,1900 11/03/17 [History] Cyanocobalamin [Vitamin B-12] 500 mcg PO DAILY@159901/12/19 [History] Potassium Chloride ER [K-Dur 20] 20 meq PO BID@0700,1600 01/12/19 [History] Cholecalciferol (Vitamin D3) [Vitamin D3] 125 mcg PO DAILY@1600 06/05/19 [History] Aspirin 81 mg PO DAILY@159909/15/19 [History] Multivitamins, Thera [Multivitamin (formulary)] 1 tab PO DAILY@159901/31/20 [History] Ondansetron [Zofran] 4 mg PO Q8HR PRN 01/31/20 [History] Pravastatin Sodium [Pravachol] 40 mg PO HS@199901/31/20 [History] Pro-Stat Awc 30 ml PO TID@0700,1200,1700 01/31/20 [History] Sennosides [Senna] 8.6 mg PO BID@0700,1600 01/31/20 [History] Pantoprazole [Protonix] 40 mg PO DAILY 42 Days #42 tablet. 02/05/20 [Rx] Dimethyl Fumarate [Tecfidera] 240 mg PO BID@0700,1600 03/08/20 [History] Baclofen [Lioresal] 20 mg PO TID@0700,1300,1900 #6 tab 03/25/20 [Rx] Cefepime [Maxipime] 2 gm IVPB Q12HR #84 vial 03/25/20 [Rx] DAPTOmycin [Cubicin] 700 mg IVPB Q24HR #42 vial 03/25/20 [Rx] Gabapentin [Neurontin] 300 mg PO TID@0700,1300,1900 #10 cap 03/25/20 [Rx] HYDROcodone/APAP 5-325MG [Leeds 5-325] 1 tab PO Q6H PRN 2 Days #10 tab 03/25/20 [Rx] Follow up Appointment(s)/Referral(s): Chace Mojica MD [Primary Care Provider] - 1-2 days Activity/Diet/Wound Care/Special Instructions: Patient is going to [facility] Activity tolerated Continue with with IV antibiotics Follow-up with primary care provider upon discharge Continue current diet Continue with ensures 3 times a day with meals Discharge Disposition: TRANSFER TO SNF/ECF
[2020-03-25] MEDS ORDERED: LIDOCAINE 1% INJ 10MG/ML (20 ML MDV) ONE (12:57)
[2020-03-25] MEDS ORDERED: LIDOCAINE 1% INJ 10MG/ML (20 ML MDV) SQ ONE (13:31)
--- NOTE | 2020-03-25 14:10 | P.PN ---
Subjective Progress Note Date: 03/25/20 HISTORY OF PRESENT ILLNESS This is a 49-year-old female treated for urinary tract infection and sacral osteomyelitis. Patient is scheduled for PICC line insertion today with plan to continue cefepime and daptomycin for 6 week course. Patient denies having any chest pain, no cough. No nausea, vomiting, diarrhea. She denies abdominal pain. She has been afebrile, heart rate 91, blood pressure 115/80, pulse ox 98% on room air. WBC 3.9, hemoglobin 11.2. Creatinine 0.6. C- reactive protein 49. PHYSICAL EXAMINATION Gen: This is a morbidly obese 49-year-old female. She is resting in bed and appears to be comfortable and in no acute distress. No respiratory distress is noted. HEENT: Head is atraumatic, normocephalic. Pupils equal, round. Sclerae is anicteric. NECK: Supple. No JVD. No lymphadenopathy. LUNGS: Clear to auscultation. No wheezes or rhonchi. No intercostal retractions. HEART: Regular rate and rhythm. No murmur. ABDOMEN: Soft. Bowel sounds are present. No masses. No tenderness. EXTREMITIES: No pedal edema. No calf tenderness. NEUROLOGICAL: Patient is awake, alert and oriented x3. ASSESSMENT Sacral osteomyelitis Urinary tract infection PLAN PICC line insertion Continue daptomycin and cefepime for 6 week course The above dictated assessment and findings were discussed with Dr. Rivero. The impression and plan of care have been directed as dictated. Lazara Brito nurse practitioner acting as scribe for Dr. Rivero. Objective - Vital Signs Vital signs: Vital Signs Temp 99.1 F 03/25/20 07:37 Pulse 91 03/25/20 07:37 Resp 17 03/25/20 07:37 BP 115/80 03/25/20 07:37 Pulse Ox 98 03/25/20 07:37 Intake & Output 03/24/20 03/25/20 03/25/20 18:59 06:59 18:59 Intake Total 700 Output Total 1200 1200 Balance -1200 -500 Weight 113.398 kg Intake: Oral 700 Output: Urine 1200 1200 Other: # Voids 1 # Bowel Movements 3 - Labs CBC & Chem 7: 03/25/20 05:35 03/25/20 05:35 Labs: Abnormal Lab Results - Last 24 Hours (Table) 03/24/20 03/24/20 03/25/20 Range/Units 15:17 15:17 05:35 Hgb 11.2 L (11.4-16.0) gm/dL RDW 16.6 H (11.5-15.5) % Lymphocytes # 0.7 L (1.0-4.8) k/uL ESR 30 H (0-20) mm/hr Chloride (96-109) mmol/L Carbon Dioxide (21.6-31.8) mmol/L Glucose (70-110) mg/dL Calcium (8.7-10.3) mg/dL C-Reactive Protein 49.0 H (<10.0) mg/L 03/25/20 Range/Units 05:35 Hgb (11.4-16.0) gm/dL RDW (11.5-15.5) % Lymphocytes # (1.0-4.8) k/uL ESR (0-20) mm/hr Chloride 112 H (96-109) mmol/L Carbon Dioxide 21.0 L (21.6-31.8) mmol/L Glucose 119 H (70-110) mg/dL Calcium 8.5 L (8.7-10.3) mg/dL C-Reactive Protein (<10.0) mg/L Microbiology - Last 24 Hours (Table) 03/22/20 14:40 Urine Culture - Final Urine,Voided Enterococcus faecium VRE 03/24/20 03:45 Urine Culture - Preliminary Urine,Catheterized
--- NOTE | 2020-03-26 10:00 | IR ---
PICC LINE PLACEMENT: HISTORY: Infection requiring long-term antibiotic therapy PROCEDURE: Ultrasound and fluoroscopic guidance of PICC line placement. COMPLICATIONS: None ANESTHESIA: 1. 1% Lidocaine locally. FINDINGS/TECHNIQUE: The procedure was explained to the patient. The risks, complications, benefits and alternatives were discussed and any questions were answered. Informed consent was obtained. The patient was placed supine on the fluoroscopic table and prepped and draped in the usual sterile fash ion. Utilizing a 21 gauge needle and sonographic and fluoroscopic guidance, access in the right bra chial vein was achieved and there is placement of a 0.018 guidewire. The vein is patent. A 4-F romo th was placed over the guidewire. The guidewire and dilator were removed and a 4-F. PICC line was pl aced through the sheath with the tip at the level of the SVC. The sheath was removed, the catheter w as flushed and sutured into position. The patient was stable throughout the procedure and remained s table upon discharge from the Department of Radiology. The vein puncture was patent under ultrasound. A reveles scale image was obtained to document patency of the vein punctured. All elements of the maximal barrier technique were utilized. FLUOROSCOPY TIME: 0.5 minutes and one image submitted IMPRESSION: Successful PICC line placement under ultrasound and fluoroscopic guidance.
== END 2020-03-25 15:15 ==
LOC: EC 13:54 → 4SSUR 15:14
PROVIDERS: ADMIT Hospitalist; ATTEND Hospitalist
DX: T82.534A Leakage of infusion catheter, initial encounter (principal); N39.0 Urinary tract infection, site not specified; B95.2 Enterococcus as the cause of diseases classified elsewhere; B95.62 Methicillin resistant Staphylococcus aureus infection as the cause of diseases classified elsewhere; M46.28 Osteomyelitis of vertebra, sacral and sacrococcygeal region; L89.154 Pressure ulcer of sacral region, stage 4; G35 Multiple sclerosis; E78.5 Hyperlipidemia, unspecified; N31.9 Neuromuscular dysfunction of bladder, unspecified; D50.9 Iron deficiency anemia, unspecified; R26.9 Unspecified abnormalities of gait and mobility; E66.9 Obesity, unspecified; R79.1 Abnormal coagulation profile; Z16.21 Resistance to vancomycin; Z99.3 Dependence on wheelchair; Z96.0 Presence of urogenital implants; Z79.2 Long term (current) use of antibiotics; Z79.890 Hormone replacement therapy; Z79.899 Other long term (current) drug therapy; Z79.82 Long term (current) use of aspirin; Z91.09 Other allergy status, other than to drugs and biological substances; Z91.02 Food additives allergy status; Z87.39 Personal history of other diseases of the musculoskeletal system and connective tissue; Z87.01 Personal history of pneumonia (recurrent); Z87.448 Personal history of other diseases of urinary system; Z92.89 Personal history of other medical treatment; Z86.19 Personal history of other infectious and parasitic diseases; Z86.14 Personal history of Methicillin resistant Staphylococcus aureus infection; Z98.890 Other specified postprocedural states; Z68.41 Body mass index [BMI] 40.0-44.9, adult; Z82.49 Family history of ischemic heart disease and other diseases of the circulatory system; Z83.3 Family history of diabetes mellitus; Z83.438 Family history of other disorder of lipoprotein metabolism and other lipidemia
CPT/HCPCS: 96366 ×2; 96367; 96372 ×4; 96365; 99285; 36415; 36573; 85379; 80053; 80048 ×3; 85652; 85025 ×4; 85610; 86140; 81001 ×2; 87040; 87086 ×2; 87077 ×2; 87186 ×2; 71045; 72192; G0378 ×4; C1751; C1769; J1644 ×4; J2001; J0692 ×3

== ENCOUNTER → 2020-12-16 | Outpatient (CLI) | payer OTHER ==
--- NOTE | 2020-12-16 11:20 | MR ---
EXAMINATION TYPE: MR lumbar spine wo con DATE OF EXAM: 12/16/2020 COMPARISON: MRI lumbar spine May 17, 2019 HISTORY: MS with low back pain. TECHNIQUE: Multiplanar, multisequence imaging of the lumbar spine is performed without IV contrast. FINDINGS: Sagittal images of the lumbar spine show vertebral body heights to remain satisfactory. Sub tle slight grade 1 retrolisthesis L1 on L2 redemonstrated . Multilevel disc desiccation again seen. M ild disc space narrowing L1-L2 level unchanged from prior with moderate anterior spurring. The conus medullaris remains stable in position ending superior L2 level. The bone marrow signal intensity is within normal limits. Axial images at T12-L1 level remain within normal limits. Axial images at L1-L2 level shows mild broad-based disc bulge minimally effacing the anterior thecal sac and mild facet arthropathy bilaterally. No significant change from prior Axial images at L2-L3 level shows similar mild facet arthropathy and ligamentum flavum hypertrophy an d mild broad disc bulge with preserved spinal canal. Patent bilateral neural foramina. Axial images at the L3-L4 level show [id number] facet degenerative changes bilaterally. Mild br oad disc bulge minimally effaces the anterior thecal sac. Mild right-sided neural foraminal narrowing due to foraminal spur disc complex. No significant change from prior. Axial images at L4-L5 level show [id number] facet degenerative changes bilaterally. Spinal gordon l is preserved. The bilateral neural foramina are patent. Axial images at L5-S1 level show mild/moderate facet degenerative changes bilaterally. Spinal canal i s preserved. The bilateral neural foramina are patent. There is linear defect in the posterior soft tissue beginning upper sacrum extending inferiorly just left of midline, this was not present on prior study. Correlate clinically for laceration injury or d ecubitus ulcer formation if there has been no interval surgery. [id number] slightly larger on curr ent study. IMPRESSION: Stable mild multilevel degenerative changes as detailed above. Attention to the posterior upper to mid sacral region just left of midline as detailed above.
--- NOTE | 2020-12-16 11:28 | MR ---
EXAMINATION TYPE: MR brain wo/w con DATE OF EXAM: 12/16/2020 COMPARISON: HISTORY: MS TECHNIQUE: Multiplanar, multisequence images of the brain and brainstem is performed without and with IV contras t, utilizing 10ml mL intravenous Gadavist . FINDINGS: There is some artifact present. Diffusion weighted images demonstrate no evidence of a rece nt infarct or other diffusion abnormality. There is no extra-axial fluid collection or significant c hange in white matter signal abnormality. The ventricular system and cisternal spaces are stable in size and appearance. The brain volume is age appropriate. Midline structures demonstrate stable morphology. The craniocervical junction appears within normal limits. Post contrast images demonstrate no abnormal enhancement. The dural venous sinuses appear pa tent. The visualized sinuses are remarkable for possible mucous retention cyst in the left maxillary sinus, inflammatory change in the ethmoid air cells, right maxillary sinus and the globes are intact. IMPRESSION: Stable brain MRI accounting for differences in technique.
== END | disposition home or self-care (01) ==
LOC: RADMRIMAIN 08:06
PROVIDERS: ATTEND Psychiatry & Neurology Neurology
DX: M51.26 Other intervertebral disc displacement, lumbar region (principal); M47.817 Spondylosis without myelopathy or radiculopathy, lumbosacral region; M99.73 Connective tissue and disc stenosis of intervertebral foramina of lumbar region
CPT/HCPCS: 70553; 72148; A9585

== ENCOUNTER 2021-09-22 14:14 | Inpatient (IN) | payer OTHER ==
[2021-09-22] MEDS ORDERED: ACETAMINOPHEN TAB 500 MG TAB PO STA (14:20)
[2021-09-22] MEDS ORDERED: IBUPROFEN 600 MG TAB PO STA (14:20)
--- NOTE | 2021-09-22 14:29 | ED ---
General Adult HPI - General Stated complaint: Weakness Time Seen by Provider: 09/22/21 14:14 Source: patient, RN notes reviewed, old records reviewed - History of Present Illness Initial comments: This is a 51-year-old female who presents emergency Department from a fdc she has a history of multiple sclerosis and left-sided paralysis. Patient comes in today because she wasn't feeling good at about noon today and she felt like her right side was weaker than normal. When EMS arrived they took her temperature was 102.3. Patient denies any cough or sore throat. Patient denies any difficulty breathing or shortness of breath per patient denies any chest pain. Patient denies abdominal pain patient denies nausea vomiting or diarrhea. Patient denies any dysuria or hematuria. Patient states she can move her right arm but it just feels weaker than normal to her. - Related Data Home Medications Medication Instructions Recorded Confirmed Acetaminophen Tab [Tylenol] 650 mg PO Q6HR PRN 05/17/16 03/22/20 Folic Acid 1 mg PO DAILY@1600 08/22/16 03/22/20 Levothyroxine Sodium [Synthroid] 50 mcg PO DAILY@0700 08/22/16 03/22/20 Ferrous Sulfate [Iron (65 MG 325 mg PO TID@0700,1300,1900 11/03/17 03/22/20 Elemental)] Cyanocobalamin [Vitamin B-12] 500 mcg PO DAILY@1600 01/12/19 03/22/20 Potassium Chloride ER [K-Dur 20] 20 meq PO BID@0700,1600 01/12/19 03/22/20 Cholecalciferol (Vitamin D3) 125 mcg PO DAILY@1600 06/05/19 03/22/20 [Vitamin D3 (5000 Iu)] Aspirin 81 mg PO DAILY@1600 09/15/19 03/22/20 Multivitamins, Thera [Multivitamin 1 tab PO DAILY@159901/31/20 03/22/20 (formulary)] Ondansetron [Zofran] 4 mg PO Q8HR PRN 01/31/20 03/22/20 Pravastatin Sodium [Pravachol] 40 mg PO HS@199901/31/20 03/22/20 Pro-Stat Awc 30 ml PO TID@0700,1200,1700 01/31/20 03/22/20 Sennosides [Senna] 8.6 mg PO BID@0700,1600 01/31/20 03/22/20 Dimethyl Fumarate [Tecfidera] 240 mg PO BID@0700,1600 03/08/20 03/22/20 Previous Rx's Medication Instructions Recorded Pantoprazole [Protonix] 40 mg PO DAILY 42 Days #42 02/05/20 tablet. Baclofen [Lioresal] 20 mg PO TID@0700,1300,1900 #6 tab 03/25/20 Cefepime [Maxipime] 2 gm IVPB Q12HR #84 vial 03/25/20 DAPTOmycin [Cubicin] 700 mg IVPB Q24HR #42 vial 03/25/20 Gabapentin [Neurontin] 300 mg PO TID@0700,1300,1900 #10 03/25/20 cap HYDROcodone/APAP 5-325MG [[employer] 1 tab PO Q6H PRN 2 Days #10 tab 03/25/20 5-325] Allergies Allergy/AdvReac Type Severity Reaction Status Date / Time adhesive tape Allergy Rash/Hives Verified 09/22/21 15:13 cinnamon Allergy Rash/Hives Verified 09/22/21 15:13 Review of Systems ROS Statement: Those systems with pertinent positive or pertinent negative responses have been documented in the HPI. ROS Other: All systems not noted in ROS Statement are negative. Past Medical History Past Medical History: Hyperlipidemia, Musculoskeletal Disorder, Neurologic Disorder, Pneumonia, Renal Disease, Skin Disorder Additional Past Medical History / Comment(s): Multiple sclerosis stage IV- wheelchair bound, L side weaker than right, past renal failure with hemodialys is-last time was July 2016, mostly healed sacral decub, sacral osteomylitis, neurogenic bladder with indwelling austin, current UTI, past sepsis, iron deficiency anemia. History of Any Multi-Drug Resistant Organisms: ESBL, MRSA, VRE Date of last positivie culture/infection: 03/22/20 VRE;03/08/20 MRSA; ESBL 08/27/17 MDRO Source:: Urine-VRE; Buttock MRSA; ESBL-Urine Past Surgical History: No Surgical Hx Reported Additional Past Surgical History / Comment(s): LP, debridement decubitus sacral ulcer, hemodialysis cath since removed, picc lines Past Anesthesia/Blood Transfusion Reactions: No Reported Reaction Additional Past Anesthesia/Blood Transfusion Reaction / Comment(s): NEVER HAD ANY GENERAL ANES Past Psychological History: No Psychological Hx Reported Smoking Status: Never smoker Past Alcohol Use History: None Reported Past Drug Use History: None Reported - Past Family History Father History Unknown: Yes Additional Family Medical History / Comment(s): PTS DAD LIVED IN [place]- SHE'S NOT SURE WHAT HE FROM. HE HAD HYPOTENSION. Mother Family Medical History: Coronary Artery Disease (CAD), Diabetes Mellitus, Hyperlipidemia, Hypertension Additional Family Medical History / Comment(s): CARDIAC STENTS General Exam - General Exam Comments Initial Comments: GENERAL: Patient is well-developed and well-nourished. Patient is nontoxic and well- hydrated and is in no acute distress. ENT: Neck is soft and supple. No significant lymphadenopathy is noted. Oropharynx is clear. Moist mucous membranes. Neck has full range of motion without eliciting any pain. EYES: The sclera were anicteric and conjunctiva were pink and moist. Extraocular movements were intact and pupils were equal round and reactive to light. Eyelids were unremarkable. PULMONARY: Unlabored respirations. Good breath sounds bilaterally. No audible rales rhonchi or wheezing was noted. CARDIOVASCULAR: There is a regular rate and rhythm without any murmurs gallops or rubs. ABDOMEN: Soft and nontender with normal bowel sounds. SKIN: Skin is clear with no lesions or rashes and otherwise unremarkable. NEUROLOGIC: Patient is alert and oriented x3. Patient has paralysis of the left side and is able to move her right hand but she states she just feels weaker than her baseline. MUSCULOSKELETAL: Normal extremities with adequate strength and full range of motion. LYMPHATICS: No significant lymphadenopathy is noted PSYCHIATRIC: Normal psychiatric evaluation. Course Vital Signs 09/22/21 14:18 Temperature 100.2 F H Pulse Rate 128 H Respiratory 18 Rate Blood Pressure 136/84 O2 Sat by Pulse 98 Oximetry Medical Decision Making - Medical Decision Making EKG shows sinus tachycardia at 125 bpm NE interval is 166 QRS is 101 Q-T intervals 413 QTC is 47 per patient's EKG shows no ST segment elevation or depression. Patient has urinary tract infection and started the patient on Rocephin immediately. Patient has a fever of 102 and heart rate in excess of 90 and a white count which qualifies patient has a sepsis patient patient will be admitted. I spoke with Dr. Mc he agreed to admit the patient admitted the patient wrote admitting orders - Lab Data Result diagrams: 09/22/21 14:41 09/22/21 14:41 Lab Results 09/22/21 09/22/21 09/22/21 Range/Units 14:41 14:41 14:41 WBC 13.2 H (3.8-10.6) k/uL RBC 4.57 (3.80-5.40) m/uL Hgb 12.8 (11.4-16.0) gm/dL Hct 39.1 (34.0-46.0) % MCV 85.5 (80.0-100.0) fL MCH 27.9 (25.0-35.0) pg MCHC 32.6 (31.0-37.0) g/dL RDW 15.9 H (11.5-15.5) % Plt Count 222 (150-450) k/uL MPV 7.7 Neutrophils % 90 % Lymphocytes % 4 % Monocytes % 3 % Eosinophils % 1 % Basophils % 0 % Neutrophils # 11.9 H (1.3-7.7) k/uL Lymphocytes # 0.6 L (1.0-4.8) k/uL Monocytes # 0.4 (0-1.0) k/uL Eosinophils # 0.1 (0-0.7) k/uL Basophils # 0.0 (0-0.2) k/uL Sodium 140 (137-145) mmol/L Potassium 3.5 (3.5-5.1) mmol/L Chloride 98 (98-107) mmol/L Carbon Dioxide 31 H (22-30) mmol/L Anion Gap 11 mmol/L BUN 32 H (7-17) mg/dL Creatinine 0.82 (0.52-1.04) mg/dL Est GFR (CKD-EPI)AfAm >90 (>60 ml/min/1.73 sqM) Est GFR (CKD-EPI)NonAf 84 (>60 ml/min/1.73 sqM) Glucose 119 H (74-99) mg/dL Plasma Lactic Acid Armando (0.7-2.0) mmol/L Calcium 9.4 (8.4-10.2) mg/dL Total Bilirubin 0.8 (0.2-1.3) mg/dL AST 21 (14-36) U/L ALT 19 (4-34) U/L Alkaline Phosphatase 106 (38-126) U/L Total Protein 7.5 (6.3-8.2) g/dL Albumin 4.5 (3.5-5.0) g/dL Urine Color Light Yellow Urine Appearance Turbid H (Clear) Urine pH 7.5 (5.0-8.0) Ur Specific [place] 1.012 (1.001-1.035) Urine Protein 1+ H (Negative) Urine Glucose (UA) Negative (Negative) Urine Ketones Negative (Negative) Urine Blood Small H (Negative) Urine Nitrite Positive H (Negative) Urine Bilirubin Negative (Negative) Urine Urobilinogen <2.0 (<2.0) mg/dL Ur Leukocyte Esterase Large H (Negative) Urine RBC 29 H (0-5) /hpf Urine WBC 74 H (0-5) /hpf Urine WBC Clumps Many H (None) /hpf Ur Squamous Epith Cells 5 H (0-4) /hpf Urine Bacteria Many H (None) /hpf Urine Mucus Rare H (None) /hpf Coronavirus (PCR) (Not Detectd) Influenza Type A RNA (Not Detectd) Influenza Type B (PCR) (Not Detectd) 09/22/21 09/22/21 09/22/21 Range/Units 14:41 14:41 14:41 WBC (3.8-10.6) k/uL RBC (3.80-5.40) m/uL Hgb (11.4-16.0) gm/dL Hct (34.0-46.0) % MCV (80.0-100.0) fL MCH (25.0-35.0) pg MCHC (31.0-37.0) g/dL RDW (11.5-15.5) % Plt Count (150-450) k/uL MPV Neutrophils % % Lymphocytes % % Monocytes % % Eosinophils % % Basophils % % Neutrophils # (1.3-7.7) k/uL Lymphocytes # (1.0-4.8) k/uL Monocytes # (0-1.0) k/uL Eosinophils # (0-0.7) k/uL Basophils # (0-0.2) k/uL Sodium (137-145) mmol/L Potassium (3.5-5.1) mmol/L Chloride (98-107) mmol/L Carbon Dioxide (22-30) mmol/L Anion Gap mmol/L BUN (7-17) mg/dL Creatinine (0.52-1.04) mg/dL Est GFR (CKD-EPI)AfAm (>60 ml/min/1.73 sqM) Est GFR (CKD-EPI)NonAf (>60 ml/min/1.73 sqM) Glucose (74-99) mg/dL Plasma Lactic Acid Armando 2.3 H* (0.7-2.0) mmol/L Calcium (8.4-10.2) mg/dL Total Bilirubin (0.2-1.3) mg/dL AST (14-36) U/L ALT (4-34) U/L Alkaline Phosphatase (38-126) U/L Total Protein (6.3-8.2) g/dL Albumin (3.5-5.0) g/dL Urine Color Urine Appearance (Clear) Urine pH (5.0-8.0) Ur Specific [place] (1.001-1.035) Urine Protein (Negative) Urine Glucose (UA) (Negative) Urine Ketones (Negative) Urine Blood (Negative) Urine Nitrite (Negative) Urine Bilirubin (Negative) Urine Urobilinogen (<2.0) mg/dL Ur Leukocyte Esterase (Negative) Urine RBC (0-5) /hpf Urine WBC (0-5) /hpf Urine WBC Clumps (None) /hpf Ur Squamous Epith Cells (0-4) /hpf Urine Bacteria (None) /hpf Urine Mucus (None) /hpf Coronavirus (PCR) Not Detected (Not Detectd) Influenza Type A RNA Not Detected (Not Detectd) Influenza Type B (PCR) Not Detected (Not Detectd) Critical Care Time Critical Care Time: Yes Total Critical Care Time: 35 Disposition Clinical Impression: Urinary tract infection, Sepsis, Multiple sclerosis Disposition: ADMITTED IP TO THIS [facility] Referrals: Nonstaff,Physician [Primary Care Provider] - 1-2 days Time of Disposition: 15:34
[2021-09-22] MEDS: SODIUM CHLORIDE 0.9% 500 ML 500 ML IV SCH ×2 (14:53→15:18)
[2021-09-22 15:12] LABS: Appearance,Urine Turbid (Clear); Bacteria,Urine Many /hpf; Bilirubin,Urine Negative (Negative); Blood,Urine Small (Negative); Color,Urine Light Yellow; Glucose,Urine (UA) Negative (Negative); Ketones,Urine Negative (Negative); Leukocyte Esterase,Urine Large (Negative); Mucus,Urine Rare /hpf; Nitrite,Urine Positive (Negative); PH, Urine 7.5 (5.0-8.0); Protein,Urine 1+ (Negative); RBC,Urine 29 /hpf (0-5); Specific Gravity,Urine 1.012 (1.001-1.035); Squamous Epithelial Cell,Urine 5 /hpf (0-4); Urobilinogen,Urine <2.0 mg/dL (<2.0); WBC,Urine 74 /hpf (0-5)
[2021-09-22] MEDS ORDERED: cefTRIAXone IN SWFI 1,000 MG/10 ML SYRINGE IVP STA (15:13)
[2021-09-22 15:25] LABS: ALT 19 U/L (4-34); AST 21 U/L (14-36); African American GFR (CKD) >90 (>60 ml/min/1.73 sqM); Albumin 4.5 g/dL (3.5-5.0); Alkaline Phosphatase 106 U/L (38-126); Anion Gap 11 mmol/L; Blood Urea Nitrogen 32 mg/dL (7-17); Calcium 9.4 mg/dL (8.4-10.2); Carbon Dioxide 31 mmol/L (22-30); Chloride 98 mmol/L (98-107); Glucose 119 mg/dL (74-99); Non-African American GFR(CKD) 84 (>60 ml/min/1.73 sqM); Potassium 3.5 mmol/L (3.5-5.1); Sodium 140 mmol/L (137-145); Total Bilirubin 0.8 mg/dL (0.2-1.3); Total Protein 7.5 g/dL (6.3-8.2)
[2021-09-22 15:31] LABS: Basophils % (A) 0 %; Eosinophils # (A) 0.1 k/uL (0-0.7); Eosinophils % (A) 1 %; HCT 39.1 % (34.0-46.0); HGB 12.8 gm/dL (11.4-16.0); Lymphocytes # (A) 0.6 k/uL (1.0-4.8); Lymphocytes % (A) 4 %; MCH 27.9 pg (25.0-35.0); MCHC 32.6 g/dL (31.0-37.0); MCV 85.5 fL (80.0-100.0); Mean Platelet Volume 7.7; Monocytes # (A) 0.4 k/uL (0-1.0); Monocytes % (A) 3 %; Neutrophils # (A) 11.9 k/uL (1.3-7.7); Neutrophils % (A) 90 %; Platelet Count 222 k/uL (150-450); RBC 4.57 m/uL (3.80-5.40); RDW 15.9 % (11.5-15.5); WBC 13.2 k/uL (3.8-10.6)
[2021-09-22] MEDS ORDERED: SODIUM CHLORIDE 0.9% 1,000 ML IV ONE (15:39)
--- NOTE | 2021-09-22 15:55 | XR ---
EXAMINATION TYPE: XR chest 1V portable DATE OF EXAM: 09/22/2021 3:20 PM COMPARISON: Chest radiographs from 03/23/2020. TECHNIQUE: XR chest 1V portable Portable AP radiograph of the chest. CLINICAL INDICATION:Female, 51 years old with history of Fever; FINDINGS: Exam slightly limited given patient positioning. Lungs/Pleura: There are low lung volumes. Bibasilar airspace opacities are present. No evidence for p neumothorax pleural effusion or focal consolidation. Pulmonary vascularity: Unremarkable. Heart/mediastinum: Cardiomediastinal silhouette is unremarkable. Musculoskeletal: No acute osseous pathology. IMPRESSION: Bibasilar opacities which are felt to be similar to prior on 03/23/2020 and likely representing atelect asis in the setting of low lung volumes.
[2021-09-22 16:13] LABS: Partial Thromboplastin Time 24.9 sec (22.0-30.0)
[2021-09-22] MEDS ORDERED: ACETAMINOPHEN TAB 325 MG TAB PO PRN (21:29)
[2021-09-22] MEDS: SENNOSIDES 8.6 MG TAB PO SCH (22:33)
[2021-09-22] MEDS: NYSTATIN 100,000 UNIT/GM POWD 15 GM TOPICAL SCH (22:33)
[2021-09-22] MEDS: ATORVASTATIN 10 MG TAB PO SCH (22:33)
[2021-09-23] MEDS: GABAPENTIN 300 MG CAP PO SCH ×3 (07:21→20:32)
[2021-09-23] MEDS: BACLOFEN 10 MG TAB PO SCH ×2 (07:21→12:22)
[2021-09-23] MEDS: MULTIVITAMINS, THERA 1 EACH TAB PO SCH (07:21)
[2021-09-23] MEDS: ASPIRIN 81 MG PO SCH (07:21)
[2021-09-23] MEDS: SENNOSIDES 8.6 MG TAB PO SCH ×2 (07:21→20:33)
[2021-09-23] MEDS: LEVOTHYROXINE 75 MCG TAB PO SCH (07:21)
[2021-09-23] MEDS: FOLIC ACID 1 MG TAB PO SCH (07:21)
[2021-09-23] MEDS: POTASSIUM CHLORIDE ER 20 MEQ TAB.ER PO SCH ×2 (07:21→20:33)
[2021-09-23] MEDS: OXYBUTYNIN 10 MG TAB.ER.24 PO SCH (07:21)
[2021-09-23] MEDS: DIROXIMEL FUMARATE 231 MG PO SCH ×2 (07:23→20:33)
[2021-09-23] MEDS: NYSTATIN 100,000 UNIT/GM POWD 15 GM TOPICAL SCH ×2 (07:23→20:33)
[2021-09-23] MEDS: PANTOPRAZOLE 40 MG TABLET PO SCH (07:31)
[2021-09-23] MEDS: HYDROcodone/APAP 5-325MG 1 EACH TAB PO PRN ×2 (12:27→20:32)
[2021-09-23] MEDS ORDERED: SODIUM CHLORIDE 0.9% 500 ML 500 ML IV ONE (12:46)
--- NOTE | 2021-09-23 13:03 | P.HPIM ---
History of Present Illness This is a pleasant 51 years old female with past medical history of multiple sclerosis, hyperlipidemia, she is wheelchair bound, with chronic left hemiparesis. Also she has history of sacral decubitus ulcers and osteomyelitis and neurogenic bladder status post indwelling Austin catheter, recurrent UTI including ESBL. weakness and lethargy from [facility]. Patient states that she's been sent from her custodial because of fever. She complains also from dysuria but no suprapubic pain or tenderness. She denies chest pain or dyspnea. No headache or weakness or dizziness. She has chronically weak on the left side but no new worsening. The right side does not looks weak and is normal at baseline. Sensation is intact in meningeal signs are absent in patient with no headache and fully awake and oriented. Vomiting or diarrhea or abdominal pain On admission patient is feverish at 100.2, blood pressure is 91/59, she is slightly tachycardic around 115 left showing mild leukocytosis at 13.2, rest of CBC is unremarkable BMP showed normal creatinine 0.8 and BUN is high at 32, elevated lactic acid came back normal Urine analysis is suspicious for infection and emergency room she was started on ceftriaxone Review of Systems CONSTITUTIONAL: No fever, no malaise, no fatigue. HEENT: No recent visual problems or hearing problems. Denied any sore throat. CARDIOVASCULAR: No orthopnea, PND, no palpitations, no syncope. PULMONARY: No shortness of breath, no cough, no hemoptysis. GASTROINTESTINAL: No diarrhea, no nausea, no vomiting, no abdominal pain. Normoactive bowel sounds. NEUROLOGICAL: No headaches, no new weakness, no numbness. HEMATOLOGICAL: Denies any bleeding or petechiae. GENITOURINARY: Denies any burning micturition, frequency, or urgency. MUSCULOSKELETAL/RHEUMATOLOGICAL: Denies any joint pain, swelling, or any muscle pain. ENDOCRINE: Denies any polyuria or polydipsia. Past Medical History Past Medical History: Hyperlipidemia, Musculoskeletal Disorder, Neurologic Disorder, Pneumonia, Renal Disease, Skin Disorder Additional Past Medical History / Comment(s): Multiple sclerosis stage IV-wheelchair bound, L side weaker than right, past renal failure with hemodialysis-last time was July 2016, mostly healed sacral decub, sacral osteomylitis, neurogenic bladder with indwelling [place]in, current UTI, past sepsis, iron deficiency anemia. History of Any Multi-Drug Resistant Organisms: ESBL, MRSA, VRE Date of last positivie culture/infection: 03/22/20 VRE;03/08/20 MRSA; ESBL 08/27/17 MDRO Source:: Urine-VRE; Buttock MRSA; ESBL-Urine Past Surgical History: No Surgical Hx Reported Additional Past Surgical History / Comment(s): LP, debridement decubitus sacral ulcer, hemodialysis cath since removed, picc lines Past Anesthesia/Blood Transfusion Reactions: No Reported Reaction Additional Past Anesthesia/Blood Transfusion Reaction / Comment(s): NEVER HAD ANY GENERAL ANES Past Psychological History: No Psychological Hx Reported Additional Psychological History / Comment(s): Pt resides at [facility]. She states she is mostly wheelchair bound-sit to stand device to chair. She has an IDC. Pt feeds herself. Smoking Status: Never smoker Past Alcohol Use History: None Reported Additional Past Alcohol Use History / Comment(s): Patient is a lifelong nonsmoker. She denies any alcohol abuse. Past Drug Use History: None Reported - Past Family History Father History Unknown: Yes Additional Family Medical History / Comment(s): PTS DAD LIVED IN [place]- SHE'S NOT SURE WHAT HE FROM. HE HAD HYPOTENSION. Mother Family Medical History: Coronary Artery Disease (CAD), Diabetes Mellitus, Hyperlipidemia, Hypertension Additional Family Medical History / Comment(s): CARDIAC STENTS Medications and Allergies Home Medications Medication Instructions Recorded Confirmed Type Folic Acid 1 mg PO DAILY 08/22/16 09/22/21 History Potassium Chloride ER [K-Dur 20] 20 meq PO BID 01/12/19 09/22/21 History Aspirin 81 mg PO DAILY 09/15/19 09/22/21 History Multivitamins, Thera [Multivitamin 1 tab PO DAILY 01/31/20 09/22/21 History (formulary)] Sennosides [Senna] 8.6 mg PO BID 01/31/20 09/22/21 History Pantoprazole [Protonix] 40 mg PO DAILY 42 Days #42 02/05/20 09/22/21 Rx tablet. Baclofen [Lioresal] 20 mg PO TID@0700,1300,1900 #6 tab 03/25/20 09/22/21 Rx Gabapentin [Neurontin] 300 mg PO TID@0700,1300,1900 #10 03/25/20 09/22/21 Rx cap HYDROcodone/APAP 5-325MG [[place] 1 tab PO Q6H PRN 2 Days #10 tab 03/25/20 09/22/21 Rx 5-325] Acetaminophen [Tylenol 8 Hour] 650 mg PO Q6H PRN 09/22/21 09/22/21 History Atorvastatin [Lipitor] 10 mg PO HS 09/22/21 09/22/21 History Diroximel Fumarate [Vumerity] 462 mg PO BID 09/22/21 09/22/21 History Levothyroxine Sodium [Synthroid] 75 mcg PO DAILY 09/22/21 09/22/21 History Miconazole Powder 1 applic TOPICAL BID 09/22/21 09/22/21 History Oxybutynin ER [Ditropan Xl] 10 mg PO DAILY 09/22/21 09/22/21 History Torsemide [Soaanz] 80 mg PO DAILY 09/22/21 09/22/21 History Allergies Allergy/AdvReac Type Severity Reaction Status Date / Time adhesive tape Allergy Rash/Hives Verified 09/22/21 15:13 cinnamon Allergy Rash/Hives Verified 09/22/21 15:13 Physical Exam Vitals: Vital Signs Temp Pulse Pulse Resp BP BP Pulse Ox 09/23/21 01:26 98.5 F 93 18 106/71 100 09/22/21 18:00 109 H 20 93/61 95 09/22/21 17:00 99.0 F 120 H 20 113/86 93 L 09/22/21 15:56 120 H 18 138/82 93 L 09/22/21 14:18 100.2 F H 128 H 18 136/84 98 Intake and Output 09/22/21 09/23/21 09/23/21 22:59 06:59 14:59 Intake Total 240 480 Output Total 800 Balance 240 -320 Intake: Oral 240 480 Output: Urine 800 Other: Voiding Method Indwelling Catheter # Voids 4 Weight 108.409 kg -GENERAL: The patient is alert and oriented x3, not in any acute distress. Well developed, well nourished. More generally weak HEENT: Pupils are round and equally reacting to light. EOMI. No scleral icterus. No conjunctival pallor. Normocephalic, atraumatic. No pharyngeal erythema. No thyromegaly. CARDIOVASCULAR: S1 and S2 present. No murmurs, rubs, or gallops. PULMONARY: Chest is clear to auscultation, no wheezing or crackles. ABDOMEN: Soft, nontender, nondistended, normoactive bowel sounds. No palpable organomegaly. MUSCULOSKELETAL: No joint swelling or deformity. EXTREMITIES: No cyanosis, clubbing, or pedal edema. -NEUROLOGICAL: Gross neurological examination did not reveal any new focal deficits. Chronic left hemiplegia. Sensation intact. Cranial nerves are grossly intact. Meningeal signs are absent SKIN: No rashes. no petechiae. Results CBC & Chem 7: 09/22/21 14:41 09/22/21 14:41 Labs: Abnormal Lab Results - Last 24 Hours (Table) 09/22/21 09/22/21 09/22/21 Range/Units 14:41 14:41 14:41 WBC 13.2 H (3.8-10.6) k/uL RDW 15.9 H (11.5-15.5) % Neutrophils # 11.9 H (1.3-7.7) k/uL Lymphocytes # 0.6 L (1.0-4.8) k/uL Carbon Dioxide 31 H (22-30) mmol/L BUN 32 H (7-17) mg/dL Glucose 119 H (74-99) mg/dL Plasma Lactic Acid Armando (0.7-2.0) mmol/L Urine Appearance Turbid H (Clear) Urine Protein 1+ H (Negative) Urine Blood Small H (Negative) Urine Nitrite Positive H (Negative) Ur Leukocyte Esterase Large H (Negative) Urine RBC 29 H (0-5) /hpf Urine WBC 74 H (0-5) /hpf Urine WBC Clumps Many H (None) /hpf Ur Squamous Epith Cells 5 H (0-4) /hpf Urine Bacteria Many H (None) /hpf Urine Mucus Rare H (None) /hpf 09/22/21 Range/Units 14:41 WBC (3.8-10.6) k/uL RDW (11.5-15.5) % Neutrophils # (1.3-7.7) k/uL Lymphocytes # (1.0-4.8) k/uL Carbon Dioxide (22-30) mmol/L BUN (7-17) mg/dL Glucose (74-99) mg/dL Plasma Lactic Acid Armando 2.3 H* (0.7-2.0) mmol/L Urine Appearance (Clear) Urine Protein (Negative) Urine Blood (Negative) Urine Nitrite (Negative) Ur Leukocyte Esterase (Negative) Urine RBC (0-5) /hpf Urine WBC (0-5) /hpf Urine WBC Clumps (None) /hpf Ur Squamous Epith Cells (0-4) /hpf Urine Bacteria (None) /hpf Urine Mucus (None) /hpf Microbiology - Last 24 Hours (Table) 09/22/21 14:41 Urine Culture - Preliminary Urine,Voided Assessment and Plan Assessment: Acute urinary tract infection Sepsis secondary to above with leukocytosis and tachycardia and fever Generalized weakness secondary to above History of multiple sclerosis with chronic left hemiparesis History of pressure ulcers History of osteomyelitis Plan: This is a pleasant 47 years old female Continue with ceftriaxone, consult infectious disease team Bolus of 500 mL Start patient on normal saline 100 mL per hour Hold baclofen Follow-up urine culture Labs and medication were reviewed.. Continue same treatment. Continue with symptomatic treatment. Resume home medication. Monitor lytes and vitals. DVT and GI prophylaxis. Further recommendationsas per clinical course of the patient DVT prophylaxis: Subcutaneous heparin GI Prophylaxis: Pepcid PT/OT: Pending Prognosis is guarded
[2021-09-23] MEDS: SODIUM CHLORIDE 0.9% 1,000 ML IV SCH ×2 (17:01→20:34)
[2021-09-23] MEDS: ERTAPENEM 1 GM in SODIUM CHLORIDE 0.9% 50 ML IVPB SCH (17:22)
[2021-09-23] MEDS: ATORVASTATIN 10 MG TAB PO SCH (20:32)
--- NOTE | 2021-09-23 23:18 | P.CONS ---
History of Present Illness - Reason for Consult Consult date: 09/23/21 Urinary tract infection Requesting physician: Michael E Sheet - Chief Complaint Fever and weakness x one day - History of Present Illness Patient is a 51-year-old female with a past medical history significant for MS in this patient with bedbound status, patient did have a chronic indwelling [place] catheter for urine retention and apparently was last changed about a month ago patient also have multiple wounds to sacral and bilateral gluteal ,, the patient was sent to [facility] ER yesterday afternoon for evaluation of patient was not feeling good and felt like her right side was weaker than normal on arrival to the emergency patient was noted to have temperature of 102.3 F, patient denies having any headache or URI symptoms, no chest pain or shortness of breath or cough patient denies any nausea no vomiting no abdominal pain no diarrhea patient denies any worsening pain to gluteal wounds on admission to the hospital patient did have temperature 100.2 degrees formulae at she did have white count 13.2 with a left shift kidney function was normal lactic acid was elevated to have a positive UA Lorenz and influenza PCR was negative blood urine culture has been obtained which are currently pending patient did have a chest x-ray bibasilar opacity which are felt to be similar to previous x-ray patient was started on Rocephin admitted to hospital infectious disease was consulted for further management of antibiotic therapy Review of Systems Positive point has been mentioned in the HPI rest of the systems are negative Past Medical History Past Medical History: Hyperlipidemia, Musculoskeletal Disorder, Neurologic Disorder, Pneumonia, Renal Disease, Skin Disorder Additional Past Medical History / Comment(s): Multiple sclerosis stage IV-wheelchair bound, L side weaker than right, past renal failure with hemodialysis-last time was July 2016, mostly healed sacral decub, sacral osteomylitis, neurogenic bladder with indwelling [place], current UTI, past sepsis, iron deficiency anemia. History of Any Multi-Drug Resistant Organisms: ESBL, MRSA, VRE Year Discovered:: 03/22/20 VRE;03/08/20 MRSA; ESBL 08/27/17 MDRO Source:: Urine-VRE; Buttock MRSA; ESBL-Urine Past Surgical History: No Surgical Hx Reported Additional Past Surgical History / Comment(s): LP, debridement decubitus sacral ulcer, hemodialysis cath since removed, picc lines Past Anesthesia/Blood Transfusion Reactions: No Reported Reaction Additional Past Anesthesia/Blood Transfusion Reaction / Comm: NEVER HAD ANY GENERAL ANES Past Psychological History: No Psychological Hx Reported Additional Psychological History / Comment(s): Pt resides at [facility]. She states she is mostly wheelchair bound-sit to stand device to chair. She has an IDC. Pt feeds herself. Smoking Status: Never smoker Past Alcohol Use History: None Reported Additional Past Alcohol Use History / Comment(s): Patient is a lifelong nonsmoker. She denies any alcohol abuse. Past Drug Use History: None Reported - Past Family History Father History Unknown: Yes Additional Family Medical History / Comment(s): PTS DAD LIVED IN [place]- SHE'S NOT SURE WHAT HE FROM. HE HAD HYPOTENSION. Mother Family Medical History: Coronary Artery Disease (CAD), Diabetes Mellitus, Hyperlipidemia, Hypertension Additional Family Medical History / Comment(s): CARDIAC STENTS Medications and Allergies Home Medications Medication Instructions Recorded Confirmed Type Folic Acid 1 mg PO DAILY 08/22/16 09/22/21 History Potassium Chloride ER [K-Dur 20] 20 meq PO BID 01/12/19 09/22/21 History Aspirin 81 mg PO DAILY 09/15/19 09/22/21 History Multivitamins, Thera [Multivitamin 1 tab PO DAILY 01/31/20 09/22/21 History (formulary)] Sennosides [Senna] 8.6 mg PO BID 01/31/20 09/22/21 History Pantoprazole [Protonix] 40 mg PO DAILY 42 Days #42 02/05/20 09/22/21 Rx tablet. Baclofen [Lioresal] 20 mg PO TID@0700,1300,1900 #6 tab 03/25/20 09/22/21 Rx Acetaminophen [Tylenol 8 Hour] 650 mg PO Q6H PRN 09/22/21 09/22/21 History Atorvastatin [Lipitor] 10 mg PO HS 09/22/21 09/22/21 History Diroximel Fumarate [Vumerity] 462 mg PO BID 09/22/21 09/22/21 History Levothyroxine Sodium [Synthroid] 75 mcg PO DAILY 09/22/21 09/22/21 History Miconazole Powder 1 applic TOPICAL BID 09/22/21 09/22/21 History Oxybutynin ER [Ditropan Xl] 10 mg PO DAILY 09/22/21 09/22/21 History Torsemide [Soaanz] 80 mg PO DAILY 09/22/21 09/22/21 History Gabapentin [Neurontin] 300 mg PO TID@0700,1300,1900 #10 09/26/21 Rx cap HYDROcodone/APAP 5-325MG [Pray 1 tab PO Q6H PRN 2 Days #6 tab 09/26/21 Rx 5-325] cefUROXime axetiL [Ceftin] 500 mg PO BID 10 Days #20 tab 09/26/21 Rx Allergies Allergy/AdvReac Type Severity Reaction Status Date / Time adhesive tape Allergy Rash/Hives Verified 09/22/21 15:13 cinnamon Allergy Rash/Hives Verified 09/22/21 15:13 Physical Exam Vitals: Vital Signs Temp Pulse Pulse Resp BP BP Pulse Ox 09/23/21 14:00 99.6 F 99 18 97/55 95 09/23/21 08:00 98.3 F 115 H 91/59 90 L 09/23/21 01:26 98.5 F 93 18 106/71 100 09/22/21 18:00 109 H 20 93/61 95 09/22/21 17:00 99.0 F 120 H 20 113/86 93 L Intake and Output 09/23/21 09/23/21 09/23/21 06:59 14:59 22:59 Intake Total 480 Output Total 800 Balance -320 Intake: Oral 480 Output: Urine 800 Other: Voiding Method Indwelling Catheter # Voids 4 GENERAL DESCRIPTION: Middle-aged female lying in bed, no distress. No tachypnea or accessory muscle of respiration use. HEENT: Shows Pallor , no scleral icterus. Oral mucous membrane is dry. No pharyngeal erythema or thrush NECK: Trachea central, no thyromegaly. LUNGS: Unlabored breathing. Clear to auscultation anteriorly. No wheeze or crackle. HEART: S1, S2, regular rate and rhythm. No loud murmur ABDOMEN: Soft, no tenderness , guarding or rigidity, no organomegaly EXTREMITIES: No edema of feet. SKIN: Multiple pressure ulcer to the sacrum and gluteal area with no slough tissue no surrounding redness or drainage NEUROLOGICAL: The patient is awake, alert, oriented x3, mood and affect normal. Results CBC & Chem 7: 09/25/21 05:37 07/07/22 05:37 Labs: Microbiology - Last 24 Hours (Table) 09/22/21 14:41 Urine Culture - Preliminary Urine,Voided Assessment and Plan (1) Decubitus ulcer Status: Acute Code(s): L89.90 - PRESSURE ULCER OF UNSPECIFIED SITE, UNSPECIFIED STAGE SNOMED Code(s): 3968142087 (2) Urinary tract infection Status: Acute Code(s): N39.0 - URINARY TRACT INFECTION, SITE NOT SPECIFIED SNOMED Code(s): 12014891 Plan: 1patient presented to hospital with sepsis did not have fever elevated white count source is likely catheter associated tract infection in this patient who did have history of recurrent UTI and previous infection with ESBL E. coli will need to cover for resistant gram-negative while waiting for the culture to be finalized. 2Foley catheter should be changed and obtain urine culture from new [place]. 3we will start the patient on Invanz 1 g daily while waiting for the culture to finalize. 4local wound care to continue per the wound care team. Wound does not look infected clinically We will follow on clinical condition and cultures to further adjust medication if needed Thank you for this consultation will follow this patient along with you Time with Patient: Greater than 30
[2021-09-24 07:22] LABS: Basophils % (A) 0 %; Eosinophils # (A) 0.2 k/uL (0-0.7); Eosinophils % (A) 3 %; HCT 30.9 % (34.0-46.0); HGB 10.1 gm/dL (11.4-16.0); Lymphocytes # (A) 0.5 k/uL (1.0-4.8); Lymphocytes % (A) 9 %; MCH 28.4 pg (25.0-35.0); MCHC 32.7 g/dL (31.0-37.0); Mean Platelet Volume 7.5; Monocytes # (A) 0.2 k/uL (0-1.0); Monocytes % (A) 4 %; Neutrophils # (A) 4.5 k/uL (1.3-7.7); Neutrophils % (A) 80 %; Platelet Count 307 k/uL (150-450); RBC 3.55 m/uL (3.80-5.40); WBC 5.6 k/uL (3.8-10.6)
[2021-09-24 07:23] LABS: African American GFR (CKD) >90 (>60 ml/min/1.73 sqM); Anion Gap 6 mmol/L; Blood Urea Nitrogen 24 mg/dL (7-17); Calcium 8.7 mg/dL (8.4-10.2); Carbon Dioxide 29 mmol/L (22-30); Chloride 105 mmol/L (98-107); Glucose 130 mg/dL (74-99); Magnesium 1.8 mg/dL (1.6-2.3); Non-African American GFR(CKD) >90 (>60 ml/min/1.73 sqM); Potassium 3.4 mmol/L (3.5-5.1); Sodium 140 mmol/L (137-145)
[2021-09-24] MEDS: HYDROcodone/APAP 5-325MG 1 EACH TAB PO PRN ×3 (08:09→20:21)
[2021-09-24] MEDS: OXYBUTYNIN 10 MG TAB.ER.24 PO SCH (08:09)
[2021-09-24] MEDS: PANTOPRAZOLE 40 MG TABLET PO SCH (08:10)
[2021-09-24] MEDS: POTASSIUM CHLORIDE ER 20 MEQ TAB.ER PO SCH ×2 (08:10→20:20)
[2021-09-24] MEDS: SENNOSIDES 8.6 MG TAB PO SCH ×2 (08:10→20:21)
[2021-09-24] MEDS: FOLIC ACID 1 MG TAB PO SCH (08:10)
[2021-09-24] MEDS: MULTIVITAMINS, THERA 1 EACH TAB PO SCH (08:10)
[2021-09-24] MEDS: GABAPENTIN 300 MG CAP PO SCH ×3 (08:10→18:26)
[2021-09-24] MEDS: ASPIRIN 81 MG PO SCH (08:10)
[2021-09-24] MEDS: LEVOTHYROXINE 75 MCG TAB PO SCH (08:10)
[2021-09-24] MEDS: SODIUM CHLORIDE 0.9% 1,000 ML IV SCH (08:11)
[2021-09-24] MEDS: NYSTATIN 100,000 UNIT/GM POWD 15 GM TOPICAL SCH ×2 (08:11→20:21)
[2021-09-24] MEDS: DIROXIMEL FUMARATE 231 MG PO SCH ×2 (08:14→20:21)
--- NOTE | 2021-09-24 09:18 | P.CONS ---
History of Present Illness - Reason for Consult Consult date: 09/24/21 wound care - History of Present Illness This is a 51-year-old patient who is a resident of [facility] with a past medical history significant for MS bed bound, COPD, DVT, hypertension, factor 5 L insufficiency, former smoker. Denies diabetes. Patient being seen on 4 S. for nonhealing ulcerations to the sacral right and left buttocks. Patient has multiple ulcerations the midline ulceration measures apparently 3.5 x 3 x 2 cm and the left buttocks ulceration measures 1 x 2 x 2 cm. Tunneling is noted to both ulcerations. Was significant amount of slough and minimal granulation noted. Patient is unsure of the dressings are being utilized. Patient states that the ulcerations have been there for approximately 5-1/2 months. She sees the wound care team at [facility]. Review Of Systems: Constitutional: No fever, no chills, no night sweats. No weight change. No weakness, fatigue or lethargy. No daytime sleepiness. Integumentary:reports wounds, no lesions. No rash or pruritus. No unusual bruising. No change in hair or nails. Physical exam: General Appearance: Alert, cooperative, no distress, appears stated age. Skin: See HPI all other Skin color, texture, tugor normal, no rashes or lesions. Neurologic: Alert oriented x3 Assessment: 1. Stage II pressure ulcer left posterior thigh 2. Stage III pressure ulcer right buttock 3. Stage III pressure ulcer left buttocks Plan: 1. Apply absorptive silver rope moistened, dry gauze, sacral border foam. Change Wednesday. Turn patient every 2 hours. When patient is sitting utilized a air-filled cushion. Thank you for the consultation any questions please contact the wound care center DNP note has been reviewed and discussed with Dr. Rees and the impression and plan of care has been directed as dictated. Past Medical History Past Medical History: Hyperlipidemia, Musculoskeletal Disorder, Neurologic Disorder, Pneumonia, Renal Disease, Skin Disorder Additional Past Medical History / Comment(s): Multiple sclerosis stage IV- wheelchair bound, L side weaker than right, past renal failure with hemodialysis-last time was July 2016, mostly healed sacral decub, sacral osteomylitis, neurogenic bladder with indwelling [place]in, current UTI, past sepsis, iron deficiency anemia. History of Any Multi-Drug Resistant Organisms: ESBL, MRSA, VRE Year Discovered:: 03/22/20 VRE;03/08/20 MRSA; ESBL 08/27/17 MDRO Source:: Urine-VRE; Buttock MRSA; ESBL-Urine Past Surgical History: No Surgical Hx Reported Additional Past Surgical History / Comment(s): LP, debridement decubitus sacral ulcer, hemodialysis cath since removed, picc lines Past Anesthesia/Blood Transfusion Reactions: No Reported Reaction Additional Past Anesthesia/Blood Transfusion Reaction / Comm: NEVER HAD ANY GENERAL ANES Past Psychological History: No Psychological Hx Reported Additional Psychological History / Comment(s): Pt resides at [facility]. She states she is mostly wheelchair bound-sit to stand device to chair. She has an IDC. Pt feeds herself. Smoking Status: Never smoker Past Alcohol Use History: None Reported Additional Past Alcohol Use History / Comment(s): Patient is a lifelong nonsmoker. She denies any alcohol abuse. Past Drug Use History: None Reported - Past Family History Father History Unknown: Yes Additional Family Medical History / Comment(s): PTS DAD LIVED IN [place]- SHE'S NOT SURE WHAT HE FROM. HE HAD HYPOTENSION. Mother Family Medical History: Coronary Artery Disease (CAD), Diabetes Mellitus, Hyperlipidemia, Hypertension Additional Family Medical History / Comment(s): CARDIAC STENTS Medications and Allergies Home Medications Medication Instructions Recorded Confirmed Type Folic Acid 1 mg PO DAILY 08/22/16 09/22/21 History Potassium Chloride ER [K-Dur 20] 20 meq PO BID 01/12/19 09/22/21 History Aspirin 81 mg PO DAILY 09/15/19 09/22/21 History Multivitamins, Thera [Multivitamin 1 tab PO DAILY 01/31/20 09/22/21 History (formulary)] Sennosides [Senna] 8.6 mg PO BID 01/31/20 09/22/21 History Pantoprazole [Protonix] 40 mg PO DAILY 42 Days #42 02/05/20 09/22/21 Rx tablet. Baclofen [Lioresal] 20 mg PO TID@0700,1300,1900 #6 tab 03/25/20 09/22/21 Rx Gabapentin [Neurontin] 300 mg PO TID@0700,1300,1900 #10 03/25/20 09/22/21 Rx cap HYDROcodone/APAP 5-325MG [[place] 1 tab PO Q6H PRN 2 Days #10 tab 03/25/20 09/22/21 Rx 5-325] Acetaminophen [Tylenol 8 Hour] 650 mg PO Q6H PRN 09/22/21 09/22/21 History Atorvastatin [Lipitor] 10 mg PO HS 09/22/21 09/22/21 History Diroximel Fumarate [Vumerity] 462 mg PO BID 09/22/21 09/22/21 History Levothyroxine Sodium [Synthroid] 75 mcg PO DAILY 09/22/21 09/22/21 History Miconazole Powder 1 applic TOPICAL BID 09/22/21 09/22/21 History Oxybutynin ER [Ditropan Xl] 10 mg PO DAILY 09/22/21 09/22/21 History Torsemide [Soaanz] 80 mg PO DAILY 09/22/21 09/22/21 History Allergies Allergy/AdvReac Type Severity Reaction Status Date / Time adhesive tape Allergy Rash/Hives Verified 09/22/21 15:13 cinnamon Allergy Rash/Hives Verified 09/22/21 15:13 Physical Exam Vitals: Vital Signs Temp Pulse Resp BP Pulse Ox 09/24/21 07:50 98.0 F 96 18 109/71 95 09/24/21 01:48 98.7 F 92 18 101/68 91 L 09/23/21 19:03 98.6 F 93 17 113/71 97 09/23/21 14:00 99.6 F 99 18 97/55 95 Intake and Output 09/23/21 09/24/21 09/24/21 22:59 06:59 14:59 Output Total 420 800 Balance -420 -800 Output: Urine 420 800 Other: Voiding Method Indwelling Catheter Indwelling Catheter Results CBC & Chem 7: 09/24/21 06:47 09/24/21 06:47 Labs: Abnormal Lab Results - Last 24 Hours (Table) 09/24/21 09/24/21 Range/Units 06:47 06:47 RBC 3.55 L (3.80-5.40) m/uL Hgb 10.1 L (11.4-16.0) gm/dL Hct 30.9 L (34.0-46.0) % RDW 16.0 H (11.5-15.5) % Lymphocytes # 0.5 L (1.0-4.8) k/uL Potassium 3.4 L (3.5-5.1) mmol/L BUN 24 H (7-17) mg/dL Glucose 130 H (74-99) mg/dL Microbiology - Last 24 Hours (Table) 09/22/21 15:51 Blood Culture - Preliminary Blood No Growth after 24 hours 09/22/21 15:30 Blood Culture - Preliminary Blood No Growth after 24 hours Assessment and Plan (1) Pressure ulcer of left buttock, stage 3 Current Visit: Yes Status: Acute Code(s): L89.323 - PRESSURE ULCER OF LEFT BUTTOCK, STAGE 3 SNOMED Code(s): 38884049305211679 (2) Pressure ulcer of right buttock, stage 3 Current Visit: Yes Status: Acute Code(s): L89.313 - PRESSURE ULCER OF RIGHT BUTTOCK, STAGE 3 SNOMED Code(s): 50270069394569324 (3) Pressure ulcer of coccygeal region, stage 4 Current Visit: No Status: Acute Code(s): L89.154 - PRESSURE ULCER OF SACRAL REGION, STAGE 4 SNOMED Code(s): 981381613
[2021-09-24] MEDS ORDERED: Potassium Replacement Protocol 1 EACH MISC MISCELLANE PRN (11:22)
--- NOTE | 2021-09-24 11:25 | P.PN ---
Subjective This is a pleasant 51 years old female with past medical history of multiple sclerosis, hyperlipidemia, she is wheelchair bound, with chronic left h emiparesis. Also she has history of sacral decubitus ulcers and osteomyelitis and neurogenic bladder status post indwelling Chaves catheter, recurrent UTI including ESBL. weakness and lethargy from [facility]. Patient states that she's been sent from her correction because of fever. She complains also from dysuria but no suprapubic pain or tenderness. She denies chest pain or dyspnea. No headache or weakness or dizziness. She has chronically weak on the left side but no new worsening. The right side does not looks weak and is normal at baseline. Sensation is intact in meningeal sign s are absent in patient with no headache and fully awake and oriented. Vomiting or diarrhea or abdominal pain On admission patient is feverish at 100.2, blood pressure is 91/59, she is slightly tachycardic around 115 left showing mild leukocytosis at 13.2, rest of CBC is unremarkable BMP showed normal creatinine 0.8 and BUN is high at 32, elevated lactic acid came back normal Urine analysis is suspicious for infection and emergency room she was started on ceftriaxone 09/24/2021 Patient generalized weakness is improving. She is with chronic left hemiplegia unchanged. She has Chaves catheter. No other symptoms. She remains on Invanz. Her hydration status is improving and recurrent lower her normal saline to 50 mL/h. Follow-up final results of the urine culture Objective - Vital Signs Vital signs: Vital Signs Temp 98.0 F 09/24/21 07:50 Pulse 96 09/24/21 07:50 Resp 18 09/24/21 07:50 BP 109/71 09/24/21 07:50 Pulse Ox 95 09/24/21 07:50 FiO2 Intake & Output 09/23/21 09/24/21 09/24/21 18:59 06:59 18:59 Output Total 420 800 Balance -420 -800 Output: Urine 420 800 Other: Voiding Method Indwelling Catheter Indwelling Catheter Indwelling Catheter - Exam -GENERAL: The patient is alert and oriented x3, not in any acute distress. Well developed, well nourished. More generally weak HEENT: Pupils are round and equally reacting to light. EOMI. No scleral icterus. No conjunctival pallor. Normocephalic, atraumatic. No pharyngeal erythema. No thyromegaly. CARDIOVASCULAR: S1 and S2 present. No murmurs, rubs, or gallops. PULMONARY: Chest is clear to auscultation, no wheezing or crackles. ABDOMEN: Soft, nontender, nondistended, normoactive bowel sounds. No palpable organomegaly. MUSCULOSKELETAL: No joint swelling or deformity. EXTREMITIES: No cyanosis, clubbing, or pedal edema. -NEUROLOGICAL: Gross neurological examination did not reveal any new focal deficits. Chronic left hemiplegia. Sensation intact. Cranial nerves are grossly intact. Meningeal signs are absent SKIN: No rashes. no petechiae. - Labs CBC & Chem 7: 09/24/21 06:47 09/24/21 06:47 Labs: Abnormal Lab Results - Last 24 Hours (Table) 09/24/21 09/24/21 Range/Units 06:47 06:47 RBC 3.55 L (3.80-5.40) m/uL Hgb 10.1 L (11.4-16.0) gm/dL Hct 30.9 L (34.0-46.0) % RDW 16.0 H (11.5-15.5) % Lymphocytes # 0.5 L (1.0-4.8) k/uL Potassium 3.4 L (3.5-5.1) mmol/L BUN 24 H (7-17) mg/dL Glucose 130 H (74-99) mg/dL Microbiology - Last 24 Hours (Table) 09/22/21 15:51 Blood Culture - Preliminary Blood No Growth after 24 hours 09/22/21 15:30 Blood Culture - Preliminary Blood No Growth after 24 hours Assessment and Plan Assessment: Acute urinary tract infection Sepsis secondary to above with leukocytosis and tachycardia and fever Generalized weakness secondary to above History of multiple sclerosis with chronic left hemiparesis History of pressure ulcers History of osteomyelitis Plan: This is a pleasant 47 years old female Continue with ceftriaxone, consult infectious disease team Bolus of 500 mL Start patient on normal saline 50 mL per hour Hold baclofen Follow-up urine culture Labs and medication were reviewed.. Continue same treatment. Continue with symptomatic treatment. Resume home medication. Monitor lytes and vitals. DVT and GI prophylaxis. Further recommendationsas per clinical course of the patient DVT prophylaxis: Subcutaneous heparin GI Prophylaxis: Pepcid PT/OT: Pending Prognosis is guarded
[2021-09-24 11:42] VITALS: BMI 39.7
[2021-09-24] MEDS ORDERED: POTASSIUM CHLORIDE ER 20 MEQ TAB.ER PO SCH (16:00)
[2021-09-24] MEDS: ERTAPENEM 1 GM in SODIUM CHLORIDE 0.9% 50 ML IVPB SCH (18:26)
[2021-09-24] MEDS: ATORVASTATIN 10 MG TAB PO SCH (20:20)
--- NOTE | 2021-09-25 07:18 | P.PN ---
Subjective Progress Note Date: 09/24/21 Principal diagnosis: Catheter associated urinary tract infection Patient is a 51-year-old female with a past medical history significant for MS bedbound status and did have a chronic indwelling catheter present in the hospital with sepsis diagnosis with the cath associated UTI. On today's evaluation that is 09/24/2021, patient denies having any fever or chills, the patient is breathing comfortably, patient denies having any chest pain or shortness of no nausea no vomiting no diarrhea Objective - Vital Signs Vital signs: Vital Signs Temp 98.0 F 09/24/21 07:50 Pulse 96 09/24/21 07:50 Resp 18 09/24/21 07:50 BP 109/71 09/24/21 07:50 Pulse Ox 95 09/24/21 07:50 FiO2 Intake & Output 09/23/21 09/24/21 09/24/21 18:59 06:59 18:59 Output Total 420 800 Balance -420 -800 Weight 108.409 kg Output: Urine 420 800 Other: Voiding Method Indwelling Catheter Indwelling Catheter Indwelling Catheter - Exam GENERAL DESCRIPTION: Middle-aged female lying in bed in no distress RESPIRATORY SYSTEM: Unlabored breathing , decreased breath sounds at bases HEART: S1 S2 regular rate and rhythm , ABDOMEN: Soft , no tenderness EXTREMITIES: No edema feet - Labs CBC & Chem 7: 09/24/21 06:47 09/24/21 06:47 Labs: Abnormal Lab Results - Last 24 Hours (Table) 09/24/21 09/24/21 Range/Units 06:47 06:47 RBC 3.55 L (3.80-5.40) m/uL Hgb 10.1 L (11.4-16.0) gm/dL Hct 30.9 L (34.0-46.0) % RDW 16.0 H (11.5-15.5) % Lymphocytes # 0.5 L (1.0-4.8) k/uL Potassium 3.4 L (3.5-5.1) mmol/L BUN 24 H (7-17) mg/dL Glucose 130 H (74-99) mg/dL Microbiology - Last 24 Hours (Table) 09/22/21 15:51 Blood Culture - Preliminary Blood No Growth after 24 hours 09/22/21 15:30 Blood Culture - Preliminary Blood No Growth after 24 hours Assessment and Plan (1) Urinary tract infection Current Visit: Yes Status: Acute Code(s): N39.0 - URINARY TRACT INFECTION, SITE NOT SPECIFIED SNOMED Code(s): 26219732 Plan: 1patient presented to hospital with sepsis did not have fever elevated white count source is likely catheter associated tract infection in this patient who did have history of recurrent UTI and previous infection with ESBL E. coli will need to cover for resistant gram-negative while waiting for the culture to be finalized. 2Foley catheter has been changed and repeat UA was requested. 3patient to continue with Invanz 1 g daily while waiting for the culture to finalize. Time with Patient: Less than 30
[2021-09-25] MEDS: GABAPENTIN 300 MG CAP PO SCH ×3 (08:33→18:07)
[2021-09-25] MEDS: HYDROcodone/APAP 5-325MG 1 EACH TAB PO PRN ×2 (08:39→20:52)
[2021-09-25 10:15] LABS: Basophils # (A) 0.02 X 10*3/uL (0.00-0.10); Basophils % (A) 0.4 %; Eosinophils # (A) 0.24 X 10*3/uL (0.04-0.35); Eosinophils % (A) 4.9 %; HCT 31.7 % (37.2-46.3); HGB 9.6 g/dL (12.0-15.0); Immature Grans, Automated 0.4 %; Lymphocytes % (A) 14.3 %; MCH 26.7 pg (27.0-32.0); MCHC 30.3 g/dL (32.0-37.0); MCV 88.3 fL (80.0-97.0); Monocytes # (A) 0.24 X 10*3/uL (0.20-1.00); Monocytes % (A) 4.9 %; NRBC Per 100 WBC 0 /100 WBCS (0.0-0.0); Neutrophils # (A) 3.67 X 10*3/uL (1.80-7.70); Neutrophils % (A) 75.1 %; Platelet Count 290 X 10*3/uL (140-440); RBC 3.59 X 10*6/uL (4.10-5.20); RDW 16.3 % (11.5-14.5); WBC 4.89 X 10*3/uL (4.50-10.00)
[2021-09-25 10:30] LABS: African American GFR (CKD) 123.2 (60.0-200.0); Anion Gap 12.3 mmol/L (10.00-18.00); Blood Urea Nitrogen 20.4 mg/dL (9.0-27.0); Calcium 9.3 mg/dL (8.7-10.3); Carbon Dioxide 24.7 mmol/L (20.0-27.5); Magnesium 1.9 mg/dL (1.5-2.4); Non-African American GFR(CKD) 106.3 (60.0-200.0); Potassium 4.1 mmol/L (3.5-5.5)
[2021-09-25] MEDS: PANTOPRAZOLE 40 MG TABLET PO SCH (11:50)
[2021-09-25] MEDS: MULTIVITAMINS, THERA 1 EACH TAB PO SCH (11:50)
[2021-09-25] MEDS: OXYBUTYNIN 10 MG TAB.ER.24 PO SCH (11:50)
[2021-09-25] MEDS: POTASSIUM CHLORIDE ER 20 MEQ TAB.ER PO SCH ×2 (11:51→20:52)
[2021-09-25] MEDS: SENNOSIDES 8.6 MG TAB PO SCH ×2 (11:51→20:52)
[2021-09-25] MEDS: FOLIC ACID 1 MG TAB PO SCH (11:52)
[2021-09-25] MEDS: ASPIRIN 81 MG PO SCH (11:53)
[2021-09-25] MEDS: DIROXIMEL FUMARATE 231 MG PO SCH ×2 (11:54→20:51)
[2021-09-25] MEDS: LEVOTHYROXINE 75 MCG TAB PO SCH (11:57)
[2021-09-25] MEDS: NYSTATIN 100,000 UNIT/GM POWD 15 GM TOPICAL SCH ×2 (11:59→20:52)
[2021-09-25] MEDS: SODIUM CHLORIDE 0.9% 1,000 ML IV SCH ×2 (12:28→20:53)
[2021-09-25] MEDS: ERTAPENEM 1 GM in SODIUM CHLORIDE 0.9% 50 ML IVPB SCH (18:07)
--- NOTE | 2021-09-25 18:32 | P.PN ---
Subjective This is a pleasant 51 years old female with past medical history of multiple sclerosis, hyperlipidemia, she is wheelchair bound, with chronic left h emiparesis. Also she has history of sacral decubitus ulcers and osteomyelitis and neurogenic bladder status post indwelling Chaves catheter, recurrent UTI including ESBL. weakness and lethargy from [facility]. Patient states that she's been sent from her alf because of fever. She complains also from dysuria but no suprapubic pain or tenderness. She denies chest pain or dyspnea. No headache or weakness or dizziness. She has chronically weak on the left side but no new worsening. The right side does not looks weak and is normal at baseline. Sensation is intact in meningeal sign s are absent in patient with no headache and fully awake and oriented. Vomiting or diarrhea or abdominal pain On admission patient is feverish at 100.2, blood pressure is 91/59, she is slightly tachycardic around 115 left showing mild leukocytosis at 13.2, rest of CBC is unremarkable BMP showed normal creatinine 0.8 and BUN is high at 32, elevated lactic acid came back normal Urine analysis is suspicious for infection and emergency room she was started on ceftriaxone 09/24/2021 Patient generalized weakness is improving. She is with chronic left hemiplegia unchanged. She has Chaves catheter. No other symptoms. She remains on Invanz. Her hydration status is improving and recurrent lower her normal saline to 50 mL/h. Follow-up final results of the urine culture 09/25/2021 Patient clinically back to her baseline. Hemodynamically stable. Labs are Stable. Discontinue on gentle hydration, normal saline at 50 mL per hour Continue with Invanz Urine culture final results are pending. Initially showing gram-negative bacilli 2 Objective - Vital Signs Vital signs: Vital Signs Temp 98.7 F 09/25/21 01:49 Pulse 101 H 09/25/21 01:49 Resp 14 09/25/21 01:49 BP 113/73 09/25/21 01:49 Pulse Ox 95 09/25/21 07:51 FiO2 Intake & Output 09/24/21 09/25/21 09/25/21 18:59 06:59 18:59 Output Total 400 900 Balance -400 -900 Weight 108.409 kg Output: Urine 400 900 Uretheral (Chaves) 900 Other: Voiding Method Indwelling Catheter Indwelling Catheter Indwelling Catheter - Exam -GENERAL: The patient is alert and oriented x3, not in any acute distress. Well developed, well nourished. More generally weak HEENT: Pupils are round and equally reacting to light. EOMI. No scleral icterus. No conjunctival pallor. Normocephalic, atraumatic. No pharyngeal erythema. No thyromegaly. CARDIOVASCULAR: S1 and S2 present. No murmurs, rubs, or gallops. PULMONARY: Chest is clear to auscultation, no wheezing or crackles. ABDOMEN: Soft, nontender, nondistended, normoactive bowel sounds. No palpable organomegaly. MUSCULOSKELETAL: No joint swelling or deformity. EXTREMITIES: No cyanosis, clubbing, or pedal edema. -NEUROLOGICAL: Gross neurological examination did not reveal any new focal deficits. Chronic left hemiplegia. Sensation intact. Cranial nerves are grossly intact. Meningeal signs are absent SKIN: No rashes. no petechiae. - Labs CBC & Chem 7: 09/25/21 05:37 09/25/21 05:37 Labs: Microbiology - Last 24 Hours (Table) 09/22/21 15:51 Blood Culture - Preliminary Blood No Growth after 48 hours 09/22/21 15:30 Blood Culture - Preliminary Blood No Growth after 48 hours 09/22/21 14:41 Urine Culture - Preliminary Urine,Voided Gram Neg Bacilli Gram Neg Bacilli#2 09/24/21 05:30 Urine Culture - Preliminary Urine,Catheterized Assessment and Plan Assessment: Acute urinary tract infection Sepsis secondary to above with leukocytosis and tachycardia and fever Generalized weakness secondary to above History of multiple sclerosis with chronic left hemiparesis History of pressure ulcers History of osteomyelitis Plan: This is a pleasant 47 years old female Continue with Invanz, consult infectious disease team Continue with normal saline Hold baclofen Follow-up urine culture Labs and medication were reviewed.. Continue same treatment. Continue with symptomatic treatment. Resume home medication. Monitor lytes and vitals. DVT and GI prophylaxis. Further recommendationsas per clinical course of the patient DVT prophylaxis: Subcutaneous heparin GI Prophylaxis: Pepcid PT/OT: Pending Prognosis is guarded
[2021-09-25] MEDS: ATORVASTATIN 10 MG TAB PO SCH (20:52)
--- NOTE | 2021-09-26 07:42 | P.PN ---
Subjective Progress Note Date: 09/25/21 Principal diagnosis: Catheter associated urinary tract infection Patient is a 51-year-old female with a past medical history significant for MS bedbound status and did have a chronic indwelling catheter present in the hospital with sepsis diagnosis with the cath associated UTI. On today's evaluation that is 09/25/2021, patient remains to be afebrile, the patient is breathing comfortably on room air, patient denies having any chest pain or shortness of breath, patient denies nausea no vomiting no diarrhea Objective - Vital Signs Vital signs: Vital Signs Temp 98.7 F 09/25/21 01:49 Pulse 101 H 09/25/21 01:49 Resp 14 09/25/21 01:49 BP 113/73 09/25/21 01:49 Pulse Ox 95 09/25/21 07:51 FiO2 Intake & Output 09/24/21 09/25/21 09/25/21 18:59 06:59 18:59 Output Total 400 900 Balance -400 -900 Weight 108.409 kg Output: Urine 400 900 Uretheral (Chaves) 900 Other: Voiding Method Indwelling Catheter Indwelling Catheter Indwelling Catheter - Exam GENERAL DESCRIPTION: Middle-aged female lying in bed in no distress RESPIRATORY SYSTEM: Unlabored breathing , decreased breath sounds at bases HEART: S1 S2 regular rate and rhythm , ABDOMEN: Soft , no tenderness EXTREMITIES: No edema feet - Labs CBC & Chem 7: 09/25/21 05:37 09/25/21 05:37 Labs: Abnormal Lab Results - Last 24 Hours (Table) 09/25/21 Range/Units 05:37 RBC 3.59 L (4.10-5.20) X 10*6/uL Hgb 9.6 L (12.0-15.0) g/dL Hct 31.7 L (37.2-46.3) % MCH 26.7 L (27.0-32.0) pg MCHC 30.3 L (32.0-37.0) g/dL RDW 16.3 H (11.5-14.5) % Lymphocytes # 0.70 L (0.90-5.00) X 10*3/uL Microbiology - Last 24 Hours (Table) 09/22/21 15:51 Blood Culture - Preliminary Blood No Growth after 48 hours 09/22/21 15:30 Blood Culture - Preliminary Blood No Growth after 48 hours 09/22/21 14:41 Urine Culture - Preliminary Urine,Voided Gram Neg Bacilli Gram Neg Bacilli#2 09/24/21 05:30 Urine Culture - Preliminary Urine,Catheterized Assessment and Plan (1) Urinary tract infection Current Visit: Yes Status: Acute Code(s): N39.0 - URINARY TRACT INFECTION, SITE NOT SPECIFIED SNOMED Code(s): 56775293 Plan: 1patient presented to hospital with sepsis did not have fever elevated white count source is likely catheter associated tract infection in this patient who did have history of recurrent UTI and previous infection with ESBL E. coli will need to cover for resistant gram-negative , initially liquids have been finalized with E. coli and providencia 2Foley catheter has been changed and repeat UA and cultures done which are currently pending. 3we will discontinue Invanz and start the patient Rocephin 2 g daily and plan to finish therapy with oral Ceftin Time with Patient: Less than 30
[2021-09-26] MEDS: FOLIC ACID 1 MG TAB PO SCH (08:21)
[2021-09-26] MEDS: OXYBUTYNIN 10 MG TAB.ER.24 PO SCH (08:21)
[2021-09-26] MEDS: MULTIVITAMINS, THERA 1 EACH TAB PO SCH (08:21)
[2021-09-26] MEDS: POTASSIUM CHLORIDE ER 20 MEQ TAB.ER PO SCH (08:21)
[2021-09-26] MEDS: SENNOSIDES 8.6 MG TAB PO SCH (08:21)
[2021-09-26] MEDS: ASPIRIN 81 MG PO SCH (08:21)
[2021-09-26] MEDS: DIROXIMEL FUMARATE 231 MG PO SCH (08:22)
[2021-09-26] MEDS: LEVOTHYROXINE 75 MCG TAB PO SCH (08:22)
[2021-09-26] MEDS: PANTOPRAZOLE 40 MG TABLET PO SCH (08:22)
[2021-09-26] MEDS: NYSTATIN 100,000 UNIT/GM POWD 15 GM TOPICAL SCH (08:22)
[2021-09-26] MEDS: GABAPENTIN 300 MG CAP PO SCH ×2 (08:22→12:26)
[2021-09-26] MEDS: HYDROcodone/APAP 5-325MG 1 EACH TAB PO PRN (08:35)
--- NOTE | 2021-09-26 14:52 | P.DS ---
Providers Date of admission: 09/22/21 15:39 Expected date of discharge: 09/26/21 Attending physician: Clementine Mc Consults: 09/23/21 13:04 Consult Physician Urgent Consulting Provider: Bobo Rivero Consult Reason/Comments: uti Do you want consulting provider notified?: Yes Primary care physician: Physician Nonstaff Hospital Course: 51 years old female with past medical history of multiple sclerosis, hyperlipidemia, she is wheelchair bound, with chronic left hemiparesis. Also she has history of sacral decubitus ulcers and osteomyelitis and neurogenic bladder status post indwelling Chaves catheter, recurrent UTI including ESBL. weakness and lethargy from [facility]. Patient states that she's been sent from her correction because of fever. She complains also from dysuria but no suprapubic pain or tenderness. She denies chest pain or dyspnea. No headache or weakness or dizziness. She has chronically weak on the left side but no new worsening. The right side does not looks weak and is normal at baseline. Sensation is intact in meningeal signs are absent in patient with no headache and fully awake and oriented. Vomiting or diarrhea or abdominal pain On admission patient is feverish at 100.2, blood pressure is 91/59, she is slightly tachycardic around 115 left showing mild leukocytosis at 13.2, rest of CBC is unremarkable BMP showed normal creatinine 0.8 and BUN is high at 32, elevated lactic acid came back normal Urine analysis is suspicious for infection and emergency room she was started on ceftriaxone 09/24/2021 Patient generalized weakness is improving. She is with chronic left hemiplegia unchanged. She has Chaves catheter. No other symptoms. She remains on Invanz. Her hydration status is improving and recurrent lower her normal saline to 50 mL/h. Follow-up final results of the urine culture 09/25/2021 Patient clinically back to her baseline. Hemodynamically stable. Labs are Stable. Discontinue on gentle hydration, normal saline at 50 mL per hour Continue with Invanz Urine culture final results are pending. Initially showing gram-negative bacilli 2 09/26/2021 Discharge Plan: 1patient presented to hospital with sepsis did not have fever elevated white count source is likely catheter associated tract infection in this patient who did have history of recurrent UTI and previous infection with ESBL E. coli will need to cover for resistant gram-negative , initially liquids have been finalized with E. coli and providencia 2Foley catheter has been changed and repeat UA and cultures done which are cu rrently pending. 3we will discontinue Invanz and finish therapy with oral Ceftin Plan - Discharge Summary Discharge Rx Participant: No New Discharge Prescriptions: New cefUROXime axetiL [Ceftin] 500 mg PO BID 10 Days #20 tab Continue Folic Acid 1 mg PO DAILY Potassium Chloride ER [K-Dur 20] 20 meq PO BID Aspirin 81 mg PO DAILY Sennosides [Senna] 8.6 mg PO BID Multivitamins, Thera [Multivitamin (formulary)] 1 tab PO DAILY Pantoprazole [Protonix] 40 mg PO DAILY 42 Days #42 tablet. Baclofen [Lioresal] 20 mg PO TID@0700,1300,1900 #6 tab Gabapentin [Neurontin] 300 mg PO TID@0700,1300,1900 #10 cap HYDROcodone/APAP 5-325MG [[place] 5-325] 1 tab PO Q6H PRN 2 Days #10 tab PRN Reason: Pain Torsemide [Soaanz] 80 mg PO DAILY Oxybutynin ER [Ditropan Xl] 10 mg PO DAILY Levothyroxine Sodium [Synthroid] 75 mcg PO DAILY Atorvastatin [Lipitor] 10 mg PO HS Acetaminophen [Tylenol 8 Hour] 650 mg PO Q6H PRN PRN Reason: Pain Diroximel Fumarate [Vumerity] 462 mg PO BID Miconazole Powder 1 applic TOPICAL BID Discharge Medication List Folic Acid 1 mg PO DAILY 08/22/16 [History] Potassium Chloride ER [K-Dur 20] 20 meq PO BID 01/12/19 [History] Aspirin 81 mg PO DAILY 09/15/19 [History] Multivitamins, Thera [Multivitamin (formulary)] 1 tab PO DAILY 01/31/20 [History] Sennosides [Senna] 8.6 mg PO BID 01/31/20 [History] Pantoprazole [Protonix] 40 mg PO DAILY 42 Days #42 tablet. 02/05/20 [Rx] Baclofen [Lioresal] 20 mg PO TID@0700,1300,1900 #6 tab 03/25/20 [Rx] Gabapentin [Neurontin] 300 mg PO TID@0700,1300,1900 #10 cap 03/25/20 [Rx] HYDROcodone/APAP 5-325MG [[place] 5-325] 1 tab PO Q6H PRN 2 Days #10 tab 03/25/20 [Rx] Acetaminophen [Tylenol 8 Hour] 650 mg PO Q6H PRN 09/22/21 [History] Atorvastatin [Lipitor] 10 mg PO HS 09/22/21 [History] Diroximel Fumarate [Vumerity] 462 mg PO BID 09/22/21 [History] Levothyroxine Sodium [Synthroid] 75 mcg PO DAILY 09/22/21 [History] Miconazole Powder 1 applic TOPICAL BID 09/22/21 [History] Oxybutynin ER [Ditropan Xl] 10 mg PO DAILY 09/22/21 [History] Torsemide [Soaanz] 80 mg PO DAILY 09/22/21 [History] cefUROXime axetiL [Ceftin] 500 mg PO BID 10 Days #20 tab 09/26/21 [Rx] Follow up Appointment(s)/Referral(s): Nonstaff,Physician [Primary Care Provider] - 1-2 days Discharge Disposition: HOME SELF-CARE
[2021-09-26 17:40] VITALS: BP 142/90; PULSE 92; RESP 18; TEMP 98.6
--- NOTE | 2021-09-27 23:06 | P.PN ---
Subjective Progress Note Date: 09/26/21 Principal diagnosis: Catheter associated urinary tract infection Patient is a 51-year-old female with a past medical history significant for MS bedbound status and did have a chronic indwelling catheter present in the hospital with sepsis diagnosis with the cath associated UTI. On today's evaluation that is 09/26/2021, patient denies any fever or chills, the patient is breathing comfortably on room air, patient denies having any chest pain or shortness of breath, patient denies nausea no vomiting no diarrhea and is feeling better Objective - Vital Signs Vital signs: Vital Signs Temp 97.9 F 09/26/21 08:00 Pulse 101 H 09/26/21 08:00 Resp 20 09/26/21 08:00 BP 103/69 09/26/21 08:00 Pulse Ox 95 09/26/21 08:00 FiO2 Intake & Output 09/25/21 09/26/21 09/26/21 18:59 06:59 18:59 Intake Total 2140 120 Output Total 1475 1999 Balance 665 -1880 Intake: Oral 2140 120 Output: Urine 1475 1999 Other: Voiding Method Indwelling Catheter Indwelling Catheter # Bowel Movements 0 1 - Exam GENERAL DESCRIPTION: Middle-aged female lying in bed in no distress RESPIRATORY SYSTEM: Unlabored breathing , decreased breath sounds at bases HEART: S1 S2 regular rate and rhythm , ABDOMEN: Soft , no tenderness EXTREMITIES: No edema feet - Labs CBC & Chem 7: 09/25/21 05:37 09/25/21 05:37 Labs: Microbiology - Last 24 Hours (Table) 09/22/21 14:41 Urine Culture - Final Urine,Voided Escherichia coli Providencia stuartii 09/22/21 15:51 Blood Culture - Preliminary Blood No Growth after 72 hours 09/22/21 15:30 Blood Culture - Preliminary Blood No Growth after 72 hours 09/24/21 05:30 Urine Culture - Final Urine,Catheterized Assessment and Plan (1) Urinary tract infection Status: Acute Code(s): N39.0 - URINARY TRACT INFECTION, SITE NOT SPECIFIED SNOMED Code(s): 99407905 Plan: 1patient presented to hospital with sepsis did not have fever elevated white count source is likely catheter associated tract infection in this patient who did have history of recurrent UTI and previous infection with ESBL E. coli will need to cover for resistant gram-negative , initially liquids have been finalized with E. coli and providencia 2Foley catheter has been changed and repeat UA and cultures done which is negative so for 3patient to continue with Rocephin 2 g daily and plan to finish therapy with oral Ceftin 7-10 days on discharge Time with Patient: Less than 30
== END 2021-09-26 18:00 | DRG 698 ==
LOC: EC 14:14 → 4SSUR 15:39
PROVIDERS: ADMIT Hospitalist; ATTEND Hospitalist
DX: T83.518A Infection and inflammatory reaction due to other urinary catheter, initial encounter (principal); A41.51 Sepsis due to Escherichia coli [E. coli]; L89.154 Pressure ulcer of sacral region, stage 4; L89.313 Pressure ulcer of right buttock, stage 3; L89.323 Pressure ulcer of left buttock, stage 3; G81.94 Hemiplegia, unspecified affecting left nondominant side; N39.0 Urinary tract infection, site not specified; D68.2 Hereditary deficiency of other clotting factors; G35 Multiple sclerosis; I10 Essential (primary) hypertension; J44.9 Chronic obstructive pulmonary disease, unspecified; L89.222 Pressure ulcer of left hip, stage 2; E78.5 Hyperlipidemia, unspecified; N31.9 Neuromuscular dysfunction of bladder, unspecified; R00.0 Tachycardia, unspecified; R33.8 Other retention of urine; Y84.6 Urinary catheterization as the cause of abnormal reaction of the patient, or of later complication, without mention of misadventure at the time of the procedure; B96.20 Unspecified Escherichia coli [E. coli] as the cause of diseases classified elsewhere; B96.89 Other specified bacterial agents as the cause of diseases classified elsewhere; Z96.0 Presence of urogenital implants; Z20.822 Contact with and (suspected) exposure to COVID-19; Z79.890 Hormone replacement therapy; Z79.82 Long term (current) use of aspirin; Z91.018 Allergy to other foods; Z87.440 Personal history of urinary (tract) infections; Z99.3 Dependence on wheelchair; Z86.19 Personal history of other infectious and parasitic diseases; Z87.891 Personal history of nicotine dependence; Z74.01 Bed confinement status; Z87.01 Personal history of pneumonia (recurrent); Z87.39 Personal history of other diseases of the musculoskeletal system and connective tissue; Z86.14 Personal history of Methicillin resistant Staphylococcus aureus infection; Z98.890 Other specified postprocedural states; Z79.899 Other long term (current) drug therapy; Z91.048 Other nonmedicinal substance allergy status; Z82.49 Family history of ischemic heart disease and other diseases of the circulatory system; Z83.3 Family history of diabetes mellitus
CPT/HCPCS: 36415; 71045; 80048; 80053; 81001; 83605; 83735; 85025; 85610; 85730; 87040; 87077; 87086; 87186; 87502; 87635; 93005; 94760; 96361; 96374; 99291

== ENCOUNTER 2021-10-17 22:22 | Inpatient (IN) | payer OTHER ==
[2021-10-17] MEDS ORDERED: SODIUM CHLORIDE 0.9% 1,000 ML IV STA ×2 (22:34)
[2021-10-17] MEDS ORDERED: IBUPROFEN IV 800 MG in SODIUM CHLORIDE 0.9% 250 ML IV ONE (22:36)
[2021-10-17] MEDS ORDERED: ACETAMINOPHEN IV (For NPO) 1,000 MG in EMPTY BAG 1 BAG IVPB STA (22:36)
--- NOTE | 2021-10-17 22:38 | ED ---
Fever HPI - General Chief Complaint: Fever Stated Complaint: Sepsis Time Seen by Provider: 10/17/21 22:34 Source: EMS, RN notes reviewed, old records reviewed, Caregiver Mode of arrival: EMS Limitations: physical limitation - History of Present Illness MD Complaint: fever, malaise, weakness -: days(s) Temperature Source: subjective Context: multiple patients with similar symptoms Associated Symptoms: chills, nasal congestion, cough Treatments Prior to Arrival: none - Related Data Home Medications Medication Instructions Recorded Confirmed Folic Acid 1 mg PO DAILY 08/22/16 09/22/21 Potassium Chloride ER [K-Dur 20] 20 meq PO BID 01/12/19 09/22/21 Aspirin 81 mg PO DAILY 09/15/19 09/22/21 Multivitamins, Thera [Multivitamin 1 tab PO DAILY 01/31/20 09/22/21 (formulary)] Sennosides [Senna] 8.6 mg PO BID 01/31/20 09/22/21 Acetaminophen [Tylenol 8 Hour] 650 mg PO Q6H PRN 09/22/21 09/22/21 Atorvastatin [Lipitor] 10 mg PO HS 09/22/21 09/22/21 Diroximel Fumarate [Vumerity] 462 mg PO BID 09/22/21 09/22/21 Levothyroxine Sodium [Synthroid] 75 mcg PO DAILY 09/22/21 09/22/21 Miconazole Powder 1 applic TOPICAL BID 09/22/21 09/22/21 Oxybutynin ER [Ditropan Xl] 10 mg PO DAILY 09/22/21 09/22/21 Torsemide [Soaanz] 80 mg PO DAILY 09/22/21 09/22/21 Previous Rx's Medication Instructions Recorded Pantoprazole [Protonix] 40 mg PO DAILY 42 Days #42 02/05/20 tablet. Baclofen [Lioresal] 20 mg PO TID@0700,1300,1900 #6 tab 03/25/20 Gabapentin [Neurontin] 300 mg PO TID@0700,1300,1900 #10 09/26/21 cap HYDROcodone/APAP 5-325MG [[place] 1 tab PO Q6H PRN 2 Days #6 tab 09/26/21 5-325] cefUROXime axetiL [Ceftin] 500 mg PO BID 10 Days #20 tab 09/26/21 Allergies Allergy/AdvReac Type Severity Reaction Status Date / Time adhesive tape Allergy Rash/Hives Verified 09/22/21 15:13 cinnamon Allergy Rash/Hives Verified 09/22/21 15:13 Review of Systems ROS Statement: Those systems with pertinent positive or pertinent negative responses have been documented in the HPI. ROS Other: All systems not noted in ROS Statement are negative. Past Medical History Past Medical History: Hyperlipidemia, Musculoskeletal Disorder, Neurologic Disorder, Pneumonia, Renal Disease, Skin Disorder Additional Past Medical History / Comment(s): Multiple sclerosis stage IV- wheelchair bound, L side weaker than right, past renal failure with hemodialysis-last time was July 2016, mostly healed sacral decub, sacral osteomylitis, neurogenic bladder with indwelling [place], current UTI, past sepsis, iron deficiency anemia. History of Any Multi-Drug Resistant Organisms: ESBL, MRSA, VRE Date of last positivie culture/infection: 03/22/20 VRE;03/08/20 MRSA; ESBL 08/27/17 MDRO Source:: Urine-VRE; Buttock MRSA; ESBL-Urine Past Surgical History: No Surgical Hx Reported Additional Past Surgical History / Comment(s): LP, debridement decubitus sacral ulcer, hemodialysis cath since removed, picc lines Past Anesthesia/Blood Transfusion Reactions: No Reported Reaction Additional Past Anesthesia/Blood Transfusion Reaction / Comment(s): NEVER HAD ANY GENERAL ANES Past Psychological History: No Psychological Hx Reported Smoking Status: Never smoker Past Alcohol Use History: None Reported Past Drug Use History: None Reported - Past Family History Father History Unknown: Yes Additional Family Medical History / Comment(s): PTS DAD LIVED IN [place]- SHE'S NOT SURE WHAT HE FROM. HE HAD HYPOTENSION. Mother Family Medical History: Coronary Artery Disease (CAD), Diabetes Mellitus, Hyperlipidemia, Hypertension Additional Family Medical History / Comment(s): CARDIAC STENTS General Exam Limitations: physical limitation General appearance: alert, in no apparent distress, anxious Head exam: Present: atraumatic, normocephalic, normal inspection Eye exam: Present: normal appearance, PERRL, EOMI. Absent: scleral icterus, conjunctival injection, periorbital swelling ENT exam: Present: normal exam, mucous membranes dry Neck exam: Present: normal inspection. Absent: tenderness, meningismus, lymphadenopathy Respiratory exam: Present: normal lung sounds bilaterally. Absent: respiratory distress, wheezes, rales, rhonchi, stridor Cardiovascular Exam: Present: normal rhythm, tachycardia, normal heart sounds. Absent: systolic murmur, diastolic murmur, rubs, gallop, clicks GI/Abdominal exam: Present: soft, normal bowel sounds. Absent: distended, tenderness, guarding, rebound, rigid Extremities exam: Present: normal inspection, full ROM, normal capillary refill. Absent: tenderness, pedal edema, joint swelling, calf tenderness Back exam: Present: normal inspection Neurological exam: Present: alert, oriented X3, CN II-XII intact Psychiatric exam: Present: normal affect, normal mood Skin exam: Present: warm, dry, intact, normal color. Absent: rash Course Vital Signs 10/17/21 22:25 Temperature 102.5 F H Pulse Rate 139 H Respiratory 22 Rate Blood Pressure 108/69 O2 Sat by Pulse 91 L Oximetry Disposition Clinical Impression: Fever, Pneumonia, Weakness Disposition: ADMITTED IP TO THIS [facility] Condition: Serious Is patient prescribed a controlled substance at d/c from ED?: No Referrals: Nonstaff,Physician [Primary Care Provider] - 1-2 days
--- NOTE | 2021-10-17 23:01 | XR ---
EXAMINATION TYPE: XR chest 1V portable DATE OF EXAM: 10/17/2021 COMPARISON: 09/22/2021 HISTORY: Fever TECHNIQUE: FINDINGS: There is pulmonary interstitial and to a lesser extent airspace edema. Heart size is fairly normal. Bony thorax is intact. There is poor inspiration. IMPRESSION: There is pulmonary edema which is worse than old exam and could be increasing interstitia l pneumonia. Congestive heart failure not excluded.
[2021-10-17] MEDS ORDERED: AZITHROMYCIN 500 MG in SODIUM CHLORIDE 0.9% 250 ML IVPB STA (23:13)
[2021-10-17] MEDS ORDERED: IBUPROFEN 400 MG TAB PO PRN (23:14)
[2021-10-17] MEDS ORDERED: ACETAMINOPHEN TAB 325 MG TAB PO PRN (23:14)
[2021-10-17] MEDS ORDERED: MORPHINE SULFATE 4 MG/ML SYRINGE IV PRN (23:14)
[2021-10-17] MEDS ORDERED: NALOXONE 0.4 MG/ML 1 ML VIAL IV PRN (23:14)
[2021-10-17] MEDS ORDERED: ONDANSETRON 4 MG/2 ML VIAL IVP PRN (23:14)
[2021-10-17] MEDS ORDERED: IPRATROPIUM-ALBUTEROL 3 ML NEB INHALATION PRN (23:17)
[2021-10-17] MEDS ORDERED: IPRATROPIUM-ALBUTEROL 3 ML NEB INHALATION STA (23:17)
[2021-10-17 23:27] LABS: Anisocytosis Slight; Basophils % (A) 0 %; Eosinophils # (A) 0.1 k/uL (0-0.7); Eosinophils % (A) 0 %; HCT 36.1 % (34.0-46.0); HGB 11.6 gm/dL (11.4-16.0); Lymphocytes # (A) 0.3 k/uL (1.0-4.8); Lymphocytes % (A) 2 %; MCHC 32.1 g/dL (31.0-37.0); MCV 84.2 fL (80.0-100.0); Monocytes # (A) 0.5 k/uL (0-1.0); Monocytes % (A) 3 %; Neutrophils # (A) 14.3 k/uL (1.3-7.7); Neutrophils % (A) 94 %; Platelet Count 404 k/uL (150-450); RBC 4.29 m/uL (3.80-5.40); RDW 16.5 % (11.5-15.5); WBC 15.3 k/uL (3.8-10.6)
[2021-10-17 23:51] LABS: AST 26 U/L (14-36); African American GFR (CKD) >90 (>60 ml/min/1.73 sqM); Albumin 4.1 g/dL (3.5-5.0); Alkaline Phosphatase 92 U/L (38-126); Anion Gap 13 mmol/L; Blood Urea Nitrogen 18 mg/dL (7-17); Calcium 9.3 mg/dL (8.4-10.2); Carbon Dioxide 28 mmol/L (22-30); Chloride 100 mmol/L (98-107); Glucose 208 mg/dL (74-99); Magnesium 1.7 mg/dL (1.6-2.3); Non-African American GFR(CKD) >90 (>60 ml/min/1.73 sqM); Phosphorus 3.5 mg/dL (2.5-4.5); Sodium 141 mmol/L (137-145); Total Bilirubin 0.7 mg/dL (0.2-1.3); Total Protein 7.1 g/dL (6.3-8.2)
[2021-10-17 23:58] LABS: ALT 27 U/L (4-34)
[2021-10-18 00:14] LABS: Appearance,Urine Turbid (Clear); Bacteria,Urine Moderate /hpf; Bilirubin,Urine Negative (Negative); Blood,Urine Large (Negative); Color,Urine Yellow; Glucose,Urine (UA) Negative (Negative); Ketones,Urine Negative (Negative); Leukocyte Esterase,Urine Large (Negative); Mucus,Urine Few /hpf; Nitrite,Urine Negative (Negative); Protein,Urine 3+ (Negative); RBC,Urine 76 /hpf (0-5); Specific Gravity,Urine >1.050 (1.001-1.035); Urobilinogen,Urine <2.0 mg/dL (<2.0); WBC,Urine >182 /hpf (0-5)
[2021-10-18] MEDS: SODIUM CHLORIDE 0.9% 1,000 ML IV SCH ×4 (00:42→20:54)
[2021-10-18 03:52] LABS: Anisocytosis Slight; Basophils % (A) 0 %; Eosinophils % (A) 0 %; HCT 31.9 % (34.0-46.0); HGB 10.2 gm/dL (11.4-16.0); Hypochromasia Slight; Lymphocytes # (A) 0.4 k/uL (1.0-4.8); Lymphocytes % (A) 3 %; MCH 27.8 pg (25.0-35.0); MCV 86.8 fL (80.0-100.0); Mean Platelet Volume 7.4; Monocytes # (A) 0.4 k/uL (0-1.0); Monocytes % (A) 3 %; Neutrophils % (A) 92 %; Platelet Count 378 k/uL (150-450); RBC 3.68 m/uL (3.80-5.40); RDW 16.8 % (11.5-15.5); WBC 15.2 k/uL (3.8-10.6)
[2021-10-18 04:03] LABS: ALT 17 U/L (4-34); AST 20 U/L (14-36); African American GFR (CKD) >90 (>60 ml/min/1.73 sqM); Albumin 3.5 g/dL (3.5-5.0); Alkaline Phosphatase 80 U/L (38-126); Anion Gap 9 mmol/L; Blood Urea Nitrogen 19 mg/dL (7-17); Calcium 8.7 mg/dL (8.4-10.2); Carbon Dioxide 26 mmol/L (22-30); Chloride 104 mmol/L (98-107); Glucose 133 mg/dL (74-99); Magnesium 1.8 mg/dL (1.6-2.3); Non-African American GFR(CKD) 87 (>60 ml/min/1.73 sqM); Phosphorus 4.2 mg/dL (2.5-4.5); Potassium 3.8 mmol/L (3.5-5.1); Sodium 139 mmol/L (137-145); Total Bilirubin 0.4 mg/dL (0.2-1.3); Total Protein 6.1 g/dL (6.3-8.2)
[2021-10-18] MEDS ORDERED: ACETAMINOPHEN TAB 325 MG TAB PO PRN (06:14)
[2021-10-18] MEDS ORDERED: NON FORMULARY DRUG (Omeprazole [Omeprazole] 20 MG Capsule.Dr) PO SCH (07:00)
[2021-10-18] MEDS: HYDROcodone/APAP 5-325MG 1 EACH TAB PO PRN ×3 (08:20→19:02)
[2021-10-18] MEDS: SENNOSIDES 8.6 MG TAB PO SCH ×2 (08:26→20:52)
[2021-10-18] MEDS: GABAPENTIN 300 MG CAP PO SCH ×3 (08:26→19:00)
[2021-10-18] MEDS: BACLOFEN 10 MG TAB PO SCH ×3 (08:26→19:01)
[2021-10-18] MEDS: ASPIRIN 81 MG PO SCH (08:26)
[2021-10-18] MEDS: FOLIC ACID 1 MG TAB PO SCH (08:26)
[2021-10-18] MEDS: NYSTATIN 100,000 UNIT/GM POWD 15 GM TOPICAL SCH ×2 (08:27→20:52)
[2021-10-18] MEDS: PANTOPRAZOLE 40 MG/10 ML VIAL IV SCH (08:27)
[2021-10-18] MEDS: TORSEMIDE 20 MG TAB PO SCH (08:27)
[2021-10-18] MEDS: OXYBUTYNIN 10 MG TAB.ER.24 PO SCH (08:27)
[2021-10-18] MEDS: DIROXIMEL FUMARATE 231 MG PO SCH ×2 (08:30→20:45)
[2021-10-18] MEDS: LEVOTHYROXINE 75 MCG TAB PO SCH (08:36)
--- NOTE | 2021-10-18 09:22 | P.HPIM ---
History of Present Illness This is a pleasant 51 years old female with past medical history of Hyperlipidemia,, Multiple sclerosis stage IV-wheelchair bound, L side weaker than right, past renal failure with hemodialysis-last time was July 2016, neurogenic bladder with indwelling austin, past sepsis, previous infection with ESBL, MRSA, VRE, iron deficiency anemia, wounds present on bilateral gluteal folds and sacral area, status post debridement Patient was recently at this hospital for sepsis and acute urinary tract infection he was treated with Invanz and responded to treatment. pt presents to the emergency department by EMS from [facility]. Patient is awake and alert and she states she is here in the hospital because of UTI, her Austin catheter is draining turbid yellow urine, she denies any lower abdominal pain. No chest pain or shortness of breath. No coughing. Other respiratory symptoms. She has some low back pain and she has stage IV sacral pressure ulcer. No headache or dizziness Patient afebrile at 101.2. Hypotensive 93/58. She is saturating 91% on room air 96% on 2 L oxygen via nasal cannula Labs show leukocytosis with 15.3, rest of CBC, BMP, liver enzymes are unremarkable. Urine analysis is suspicious of infection. Urine culture from showing sensitive E. coli but resistant providencia Chest x-ray: There is pulmonary edema which is worse than AND COULD BE INCREASING INTERSTITIAL PNEUMONIA. CONGESTIVE HEART FAILURE NOT EXCLUDEd the patient started on Zithromax and ceftriaxone. Also she received IV fluid and apoprotein Review of Systems CONSTITUTIONAL: No fever, no malaise, no fatigue. HEENT: No recent visual problems or hearing problems. Denied any sore throat. CARDIOVASCULAR: No orthopnea, PND, no palpitations, no syncope. PULMONARY: No shortness of breath, no cough, no hemoptysis. GASTROINTESTINAL: No diarrhea, no nausea, no vomiting, no abdominal pain. Normoactive bowel sounds. NEUROLOGICAL: No headaches, no weakness, no numbness. HEMATOLOGICAL: Denies any bleeding or petechiae. GENITOURINARY: Denies any burning micturition, frequency, or urgency. MUSCULOSKELETAL/RHEUMATOLOGICAL: Denies any joint pain, swelling, or any muscle pain. ENDOCRINE: Denies any polyuria or polydipsia. Past Medical History Past Medical History: Hyperlipidemia, Musculoskeletal Disorder, Neurologic Disorder, Pneumonia, Renal Disease, Skin Disorder Additional Past Medical History / Comment(s): Multiple sclerosis stage IV- wheelchair bound, L side weaker than right, past renal failure with hemodialysis-last time was July 2016, neurogenic bladder with indwelling austin, past sepsis, iron deficiency anemia, wounds present on bilateral gluteal folds and sacral area History of Any Multi-Drug Resistant Organisms: ESBL, MRSA, VRE Date of last positivie culture/infection: 03/22/20 VRE;03/08/20 MRSA; ESBL 08/27/17 MDRO Source:: Urine-VRE; Buttock MRSA; ESBL-Urine Past Surgical History: No Surgical Hx Reported Additional Past Surgical History / Comment(s): LP, debridement decubitus sacral ulcer, hemodialysis cath since removed, picc lines Past Anesthesia/Blood Transfusion Reactions: No Reported Reaction Additional Past Anesthesia/Blood Transfusion Reaction / Comment(s): NEVER HAD ANY GENERAL ANES Past Psychological History: No Psychological Hx Reported Additional Psychological History / Comment(s): Pt resides at [facility]. She states she is mostly wheelchair bound-sit to stand device to chair. She has an IDC. Pt feeds herself. Smoking Status: Never smoker Past Alcohol Use History: None Reported Additional Past Alcohol Use History / Comment(s): Patient is a lifelong n onsmoker. She denies any alcohol abuse. Past Drug Use History: None Reported - Past Family History Father History Unknown: Yes Additional Family Medical History / Comment(s): PTS DAD LIVED IN [place]- SHE'S NOT SURE WHAT HE FROM. HE HAD HYPOTENSION. Mother Family Medical History: Coronary Artery Disease (CAD), Diabetes Mellitus, Hyperlipidemia, Hypertension Additional Family Medical History / Comment(s): CARDIAC STENTS Medications and Allergies Home Medications Medication Instructions Recorded Confirmed Type Folic Acid 1 mg PO DAILY 08/22/16 10/17/21 History Potassium Chloride ER [K-Dur 20] 20 meq PO BID 01/12/19 10/17/21 History Aspirin 81 mg PO DAILY 09/15/19 10/17/21 History Multivitamins, Thera [Multivitamin 1 tab PO DAILY@1600 01/31/20 10/17/21 History (formulary)] Sennosides [Senna] 8.6 mg PO BID 01/31/20 10/17/21 History Baclofen [Lioresal] 20 mg PO TID@0700,1300,1900 #6 tab 03/25/20 10/17/21 Rx Acetaminophen [Tylenol 8 Hour] 650 mg PO Q6H PRN 09/22/21 10/17/21 History Atorvastatin [Lipitor] 10 mg PO HS 09/22/21 10/17/21 History Diroximel Fumarate [Vumerity] 462 mg PO BID 09/22/21 10/17/21 History Levothyroxine Sodium [Synthroid] 75 mcg PO DAILY 09/22/21 10/17/21 History Miconazole Powder 1 applic TOPICAL BID 09/22/21 10/17/21 History Oxybutynin ER [Ditropan Xl] 10 mg PO DAILY 09/22/21 10/17/21 History Torsemide [Soaanz] 80 mg PO DAILY 09/22/21 10/17/21 History Gabapentin [Neurontin] 300 mg PO TID@0700,1300,1900 #10 09/26/21 10/17/21 Rx cap HYDROcodone/APAP 5-325MG [[place] 1 tab PO Q6H PRN 2 Days #6 tab 09/26/21 10/17/21 Rx 5-325] Omeprazole 20 mg PO DAILY@0700 10/17/21 10/17/21 History Allergies Allergy/AdvReac Type Severity Reaction Status Date / Time adhesive tape Allergy Rash/Hives Verified 10/17/21 23:28 cinnamon Allergy Rash/Hives Verified 10/17/21 23:28 Physical Exam Vitals: Vital Signs Temp Pulse Pulse Resp BP BP Pulse Ox 10/18/21 02:00 98.5 F 111 H 16 93/58 95 10/18/21 00:23 99.6 F 111 H 18 91/51 96 10/17/21 23:22 101.2 F H 96 10/17/21 22:25 102.5 F H 139 H 22 108/69 91 L Intake and Output 10/17/21 10/18/21 10/18/21 22:59 06:59 14:59 Other: Weight 108.409 kg 108.409 kg GENERAL: The patient is alert and oriented x3, not in any acute distress. Well developed, well nourished. HEENT: Pupils are round and equally reacting to light. EOMI. No scleral icterus. No conjunctival pallor. Normocephalic, atraumatic. No pharyngeal erythema. No thyromegaly. CARDIOVASCULAR: S1 and S2 present. No murmurs, rubs, or gallops. PULMONARY: Chest is clear to auscultation, no wheezing or crackles. -ABDOMEN: Soft, nontender, nondistended, normoactive bowel sounds. No palpable organomegaly. Chronic indwelling catheter in place MUSCULOSKELETAL: No joint swelling or deformity. EXTREMITIES: No cyanosis, clubbing, or pedal edema. -NEUROLOGICAL: Cranial nerves are grossly intact. Chronic weakness of the left side and bedridden. No other abnormal neurological findings SKIN: No rashes. No petechiae Results CBC & Chem 7: 10/18/21 02:44 10/18/21 02:44 Labs: Abnormal Lab Results - Last 24 Hours (Table) 10/17/21 10/17/21 10/17/21 Range/Units 23:21 23:21 23:21 WBC 15.3 H (3.8-10.6) k/uL RBC (3.80-5.40) m/uL Hgb (11.4-16.0) gm/dL Hct (34.0-46.0) % RDW 16.5 H (11.5-15.5) % Neutrophils # 14.3 H (1.3-7.7) k/uL Lymphocytes # 0.3 L (1.0-4.8) k/uL BUN 18 H (7-17) mg/dL Glucose 208 H (74-99) mg/dL Plasma Lactic Acid Armando 4.8 H* (0.7-2.0) mmol/L Total Protein (6.3-8.2) g/dL Urine Appearance (Clear) Ur Specific [place] (1.001-1.035) Urine Protein (Negative) Urine Blood (Negative) Ur Leukocyte Esterase (Negative) Urine RBC (0-5) /hpf Urine WBC (0-5) /hpf Urine WBC Clumps (None) /hpf Urine Bacteria (None) /hpf Urine Mucus (None) /hpf 10/17/21 10/18/21 10/18/21 Range/Units 23:40 02:44 02:44 WBC 15.2 H (3.8-10.6) k/uL RBC 3.68 L (3.80-5.40) m/uL Hgb 10.2 L (11.4-16.0) gm/dL Hct 31.9 L (34.0-46.0) % RDW 16.8 H (11.5-15.5) % Neutrophils # 14.0 H (1.3-7.7) k/uL Lymphocytes # 0.4 L (1.0-4.8) k/uL BUN 19 H (7-17) mg/dL Glucose 133 H (74-99) mg/dL Plasma Lactic Acid Armando (0.7-2.0) mmol/L Total Protein 6.1 L (6.3-8.2) g/dL Urine Appearance Turbid H (Clear) Ur Specific [place] >1.050 H (1.001-1.035) Urine Protein 3+ H (Negative) Urine Blood Large H (Negative) Ur Leukocyte Esterase Large H (Negative) Urine RBC 76 H (0-5) /hpf Urine WBC >182 H (0-5) /hpf Urine WBC Clumps Many H (None) /hpf Urine Bacteria Moderate H (None) /hpf Urine Mucus Few H (None) /hpf Thrombosis Risk Factor Assmnt - Choose All That Apply Any of the Below Risk Factors Present?: Yes Each Factor Represents 1 point: Age 41-60 years, Obesity (BMI >25), Swollen legs (current) Other Risk Factors: No Other congenital or acquired thrombophilia - If yes, enter type in comment: No Thrombosis Risk Factor Assessment Total Risk Factor Score: 3 Thrombosis Risk Factor Assessment Level: Moderate Risk Assessment and Plan Assessment: Sepsis fever and leukocytosis Acute urinary tract infection, related to Austin catheter. Present on admission Bilateral sacral and gluteal pressure ulcers, with history of debridement. Sta ge IV History of multiple sclerosis with chronic left hemiparesis, wheelchair bound History with infection with ESBL, MRSA, VRE Neurogenic bladder with indwelling Austin catheter History of osteomyelitis Plan: This is a pleasant 51 years old female who is wheelchair-bound from her MS presents with severe sepsis, UTI Continue with broad-spectrum antibiotic Continue with normal saline hydration Consults infectious disease team Check a renal ultrasound Labs and medication were reviewed.. Continue same treatment. Continue with symptomatic treatment. Resume home medication. Monitor lytes and vitals. DVT and GI prophylaxis. Further recommendations depends on the clinical course of the patient DVT prophylaxis: Subcutaneous heparin GI Prophylaxis: Ppi Prognosis is guarded
[2021-10-18 13:08] VITALS: BMI 39.7
[2021-10-18] MEDS: MULTIVITAMINS, THERA 1 EACH TAB PO SCH (13:37)
--- NOTE | 2021-10-18 13:49 | US ---
EXAMINATION TYPE: US renals and bladder DATE OF EXAM: 10/18/2021 COMPARISON: NONE CLINICAL HISTORY: uti. EXAM MEASUREMENTS: Right Kidney: 10.2 x 3.6 x 4.4 cm Left Kidney: not seen Gross morbid obesity, patient positioned slightly LLD, patient unable to move for examiner Right Kidney: No hydronephrosis, large nonobstructing lateral stone measuring 1.5 x 1.1 x 0.9 cm Left Kidney: not see due to morbid obesity and patient position Bladder: not seen IMPRESSION: 1. Large nonobstructing right renal stone. 2. Nonvisualization of the left kidney and urinary bladder.
[2021-10-18] MEDS: ATORVASTATIN 10 MG TAB PO SCH (20:52)
--- NOTE | 2021-10-18 22:33 | P.CONS ---
History of Present Illness - Reason for Consult Consult date: 10/18/21 Sepsis Requesting physician: Michael E Sheet - Chief Complaint Fever x 1 day - History of Present Illness Patient is a 51-year-old female with a past medical history significant for MS in this patient chronic bedbound status and a resident of a local intermediate patient also have a urinary retention with a chronic indwelling Austin catheter and history of recurrent urinary tract infection, patient was sent to the ER from [facility] concerning for a fever and another episode of UTI, patient mention symptoms started the day of presentation to the hospital the patient denies having any headache or URI symptoms but denies having any chest pain or shortness of breath or cough no abdominal pain no diarrhea no nausea no vomiting on presentation to the hospital she did have a fever of 102.5 F patient was tachycardic heart rate in 116 and did have white count of 15.3 with a left shift BUN creatinine has been normal lactic acid was elevated liver enzymes are normal urine is positive influenza blackwell PCR was negative patient did have a chest x-ray pulmonary edema which is worse than normal exam could be interstitial pneumonia patient did have a renal ultrasound large nonobstructive right renal calculus patient was started on Rocephin and admitted to hospital infectious disease was consulted for further management of antibiotic therapy Review of Systems Positive point has been mentioned in the HPI rest of the systems are negative Past Medical History Past Medical History: Hyperlipidemia, Musculoskeletal Disorder, Neurologic Disorder, Pneumonia, Renal Disease, Skin Disorder Additional Past Medical History / Comment(s): Multiple sclerosis stage IV- wheelchair bound, L side weaker than right, past renal failure with hemodialysis-last time was July 2016, neurogenic bladder with indwelling austin, past sepsis, iron deficiency anemia, wounds present on bilateral gluteal folds and sacral area History of Any Multi-Drug Resistant Organisms: ESBL, MRSA, VRE Year Discovered:: 03/22/20 VRE;03/08/20 MRSA; ESBL 08/27/17 MDRO Source:: Urine-VRE; Buttock MRSA; ESBL-Urine Past Surgical History: No Surgical Hx Reported Additional Past Surgical History / Comment(s): LP, debridement decubitus sacral ulcer, hemodialysis cath since removed, picc lines Past Anesthesia/Blood Transfusion Reactions: No Reported Reaction Additional Past Anesthesia/Blood Transfusion Reaction / Comm: NEVER HAD ANY GENERAL ANES Past Psychological History: No Psychological Hx Reported Additional Psychological History / Comment(s): Pt resides at [facility]. She states she is mostly wheelchair bound-sit to stand device to chair. She has an IDC. Pt feeds herself. Smoking Status: Never smoker Past Alcohol Use History: None Reported Additional Past Alcohol Use History / Comment(s): Patient is a lifelong nonsmoker. She denies any alcohol abuse. Past Drug Use History: None Reported - Past Family History Father History Unknown: Yes Additional Family Medical History / Comment(s): PTS DAD LIVED IN [place]- SHE'S NOT SURE WHAT HE FROM. HE HAD HYPOTENSION. Mother Family Medical History: Coronary Artery Disease (CAD), Diabetes Mellitus, Hyperlipidemia, Hypertension Additional Family Medical History / Comment(s): CARDIAC STENTS Medications and Allergies Home Medications Medication Instructions Recorded Confirmed Type Folic Acid 1 mg PO DAILY 08/22/16 10/17/21 History Potassium Chloride ER [K-Dur 20] 20 meq PO BID 01/12/19 10/17/21 History Aspirin 81 mg PO DAILY 09/15/19 10/17/21 History Multivitamins, Thera [Multivitamin 1 tab PO DAILY@1600 01/31/20 10/17/21 History (formulary)] Sennosides [Senna] 8.6 mg PO BID 01/31/20 10/17/21 History Baclofen [Lioresal] 20 mg PO TID@0700,1300,1900 #6 tab 03/25/20 10/17/21 Rx Acetaminophen [Tylenol 8 Hour] 650 mg PO Q6H PRN 09/22/21 10/17/21 History Atorvastatin [Lipitor] 10 mg PO HS 09/22/21 10/17/21 History Diroximel Fumarate [Vumerity] 462 mg PO BID 09/22/21 10/17/21 History Levothyroxine Sodium [Synthroid] 75 mcg PO DAILY 09/22/21 10/17/21 History Miconazole Powder 1 applic TOPICAL BID 09/22/21 10/17/21 History Oxybutynin ER [Ditropan Xl] 10 mg PO DAILY 09/22/21 10/17/21 History Torsemide [Soaanz] 80 mg PO DAILY 09/22/21 10/17/21 History Gabapentin [Neurontin] 300 mg PO TID@0700,1300,1900 #10 09/26/21 10/17/21 Rx cap HYDROcodone/APAP 5-325MG [[place] 1 tab PO Q6H PRN 2 Days #6 tab 09/26/21 10/17/21 Rx 5-325] Omeprazole 20 mg PO DAILY@0700 10/17/21 10/17/21 History Allergies Allergy/AdvReac Type Severity Reaction Status Date / Time adhesive tape Allergy Rash/Hives Verified 10/17/21 23:28 cinnamon Allergy Rash/Hives Verified 10/17/21 23:28 Physical Exam Vitals: Vital Signs Temp Pulse Pulse Resp BP BP Pulse Ox 10/18/21 09:32 110 H 16 10/18/21 08:00 97.8 F 116 H 16 100/60 100 10/18/21 02:00 98.5 F 111 H 16 93/58 95 10/18/21 00:23 99.6 F 111 H 18 91/51 96 10/17/21 23:22 101.2 F H 96 10/17/21 22:25 102.5 F H 139 H 22 108/69 91 L Intake and Output 10/17/21 10/18/21 10/18/21 22:59 06:59 14:59 Other: Voiding Method Indwelling Catheter Weight 108.409 kg 108.409 kg GENERAL DESCRIPTION: Middle-aged female lying in bed, no distress. No tachypnea or accessory muscle of respiration use. HEENT: Shows Pallor , no scleral icterus. Oral mucous membrane is dry. No pharyngeal erythema or thrush NECK: Trachea central, no thyromegaly. LUNGS: Unlabored breathing. Decreased the some of the base. No wheeze or crackle. HEART: S1, S2, regular rate and rhythm. No loud murmur ABDOMEN: Soft, no tenderness , guarding or rigidity, no organomegaly EXTREMITIES: No edema of feet. SKIN: No rash, no masses palpable. NEUROLOGICAL: The patient is awake, alert, oriented x3, mood and affect normal. Results CBC & Chem 7: 10/18/21 02:44 10/18/21 02:44 Labs: Abnormal Lab Results - Last 24 Hours (Table) 10/17/21 10/17/21 10/17/21 Range/Units 23:21 23:21 23:21 WBC 15.3 H (3.8-10.6) k/uL RBC (3.80-5.40) m/uL Hgb (11.4-16.0) gm/dL Hct (34.0-46.0) % RDW 16.5 H (11.5-15.5) % Neutrophils # 14.3 H (1.3-7.7) k/uL Lymphocytes # 0.3 L (1.0-4.8) k/uL BUN 18 H (7-17) mg/dL Glucose 208 H (74-99) mg/dL Plasma Lactic Acid Armando 4.8 H* (0.7-2.0) mmol/L Total Protein (6.3-8.2) g/dL Urine Appearance (Clear) Ur Specific [place] (1.001-1.035) Urine Protein (Negative) Urine Blood (Negative) Ur Leukocyte Esterase (Negative) Urine RBC (0-5) /hpf Urine WBC (0-5) /hpf Urine WBC Clumps (None) /hpf Urine Bacteria (None) /hpf Urine Mucus (None) /hpf 10/17/21 10/18/21 10/18/21 Range/Units 23:40 02:44 02:44 WBC 15.2 H (3.8-10.6) k/uL RBC 3.68 L (3.80-5.40) m/uL Hgb 10.2 L (11.4-16.0) gm/dL Hct 31.9 L (34.0-46.0) % RDW 16.8 H (11.5-15.5) % Neutrophils # 14.0 H (1.3-7.7) k/uL Lymphocytes # 0.4 L (1.0-4.8) k/uL BUN 19 H (7-17) mg/dL Glucose 133 H (74-99) mg/dL Plasma Lactic Acid [place] (0.7-2.0) mmol/L Total Protein 6.1 L (6.3-8.2) g/dL Urine Appearance Turbid H (Clear) Ur Specific [place] >1.050 H (1.001-1.035) Urine Protein 3+ H (Negative) Urine Blood Large H (Negative) Ur Leukocyte Esterase Large H (Negative) Urine RBC 76 H (0-5) /hpf Urine WBC >182 H (0-5) /hpf Urine WBC Clumps Many H (None) /hpf Urine Bacteria Moderate H (None) /hpf Urine Mucus Few H (None) /hpf Microbiology - Last 24 Hours (Table) 10/17/21 23:40 Urine Culture - Preliminary Urine,Voided Assessment and Plan (1) Sepsis Current Visit: No Status: Acute Code(s): A41.9 - SEPSIS, UNSPECIFIED ORGANISM SNOMED Code(s): 40797147 (2) Urinary tract infection Current Visit: No Status: Acute Code(s): N39.0 - URINARY TRACT INFECTION, SITE NOT SPECIFIED SNOMED Code(s): 57490104 Plan: 1patient was in the hospital with sepsis and respiratory have fever tachycardia elevated white count and lactic acid acidosis likely catheter associated tract infection in this patient who did have a chronic indwelling Austin catheter patient mention last time it was seen when she was in the hospital and has not been changed since then likely from enteric gram-negative pathogen and in view of response of the fever to Rocephin possible Rocephin sensitive pathogen. 2Foley catheter to be changed and UA cultures obtained from the new catheter. 3continue with Rocephin 2 g daily while waiting for the culture to finalize We will follow on clinical condition and cultures to further adjust medication if needed Thank you for this consultation will follow this patient along with you Time with Patient: Greater than 30
[2021-10-19 01:02] LABS: Glucose,Whole Blood 123 mg/dL (70-110)
[2021-10-19] MEDS ORDERED: AZITHROMYCIN 500 MG in SODIUM CHLORIDE 0.9% 250 ML IVPB SCH (03:00)
[2021-10-19] MEDS: SODIUM CHLORIDE 0.9% 1,000 ML IV SCH ×3 (05:52→21:00)
[2021-10-19] MEDS: LEVOTHYROXINE 75 MCG TAB PO SCH (05:53)
[2021-10-19 08:32] LABS: Anisocytosis Slight; Basophils % (A) 0 %; Eosinophils # (A) 0.3 k/uL (0-0.7); Eosinophils % (A) 3 %; HCT 31.7 % (34.0-46.0); HGB 10.1 gm/dL (11.4-16.0); Hypochromasia Slight; Lymphocytes # (A) 0.4 k/uL (1.0-4.8); Lymphocytes % (A) 5 %; MCH 28.1 pg (25.0-35.0); MCHC 31.9 g/dL (31.0-37.0); Mean Platelet Volume 7.4; Monocytes # (A) 0.3 k/uL (0-1.0); Monocytes % (A) 3 %; Neutrophils # (A) 7.7 k/uL (1.3-7.7); Neutrophils % (A) 86 %; Platelet Count 278 k/uL (150-450); RDW 16.6 % (11.5-15.5); WBC 8.9 k/uL (3.8-10.6)
[2021-10-19 08:43] LABS: African American GFR (CKD) 66 (>60 ml/min/1.73 sqM); Anion Gap 10 mmol/L; Blood Urea Nitrogen 36 mg/dL (7-17); Calcium 8.8 mg/dL (8.4-10.2); Carbon Dioxide 27 mmol/L (22-30); Chloride 103 mmol/L (98-107); Glucose 119 mg/dL (74-99); Magnesium 1.8 mg/dL (1.6-2.3); Non-African American GFR(CKD) 57 (>60 ml/min/1.73 sqM); Potassium 3.5 mmol/L (3.5-5.1); Sodium 140 mmol/L (137-145)
[2021-10-19] MEDS: TORSEMIDE 20 MG TAB PO SCH (09:03)
[2021-10-19] MEDS: BACLOFEN 10 MG TAB PO SCH ×3 (09:03→19:28)
[2021-10-19] MEDS: OXYBUTYNIN 10 MG TAB.ER.24 PO SCH (09:03)
[2021-10-19] MEDS: FOLIC ACID 1 MG TAB PO SCH (09:03)
[2021-10-19] MEDS: ASPIRIN 81 MG PO SCH (09:03)
[2021-10-19] MEDS: GABAPENTIN 300 MG CAP PO SCH ×3 (09:04→19:28)
[2021-10-19] MEDS: SENNOSIDES 8.6 MG TAB PO SCH ×2 (09:04→20:51)
[2021-10-19] MEDS: MULTIVITAMINS, THERA 1 EACH TAB PO SCH (09:04)
[2021-10-19] MEDS: PANTOPRAZOLE 40 MG/10 ML VIAL IV SCH (09:04)
[2021-10-19] MEDS: NYSTATIN 100,000 UNIT/GM POWD 15 GM TOPICAL SCH ×2 (09:04→20:52)
[2021-10-19] MEDS: DIROXIMEL FUMARATE 231 MG PO SCH ×2 (09:04→20:57)
[2021-10-19] MEDS: HYDROcodone/APAP 5-325MG 1 EACH TAB PO PRN ×3 (09:05→22:15)
[2021-10-19 16:13] LABS: Appearance,Urine Cloudy (Clear); Bacteria,Urine Few /hpf; Bilirubin,Urine Negative (Negative); Blood,Urine Moderate (Negative); Color,Urine Colorless; Glucose,Urine (UA) Negative (Negative); Ketones,Urine Negative (Negative); Leukocyte Esterase,Urine Large (Negative); Nitrite,Urine Negative (Negative); Protein,Urine Trace (Negative); RBC,Urine 20 /hpf (0-5); Specific Gravity,Urine 1.006 (1.001-1.035); Squamous Epithelial Cell,Urine 5 /hpf (0-4); Urobilinogen,Urine <2.0 mg/dL (<2.0); WBC,Urine 109 /hpf (0-5)
[2021-10-19] MEDS: MIDODRINE 5 MG TAB PO SCH ×2 (16:25→16:26)
--- NOTE | 2021-10-19 19:34 | P.PN ---
Subjective This is a pleasant 51 years old female with past medical history of Hyperlipidemia,, Multiple sclerosis stage IV-wheelchair bound, L side weaker alicia n right, past renal failure with hemodialysis-last time was July 2016, neurogenic bladder with indwelling austin, past sepsis, previous infection with ESBL, MRSA, VRE, iron deficiency anemia, wounds present on bilateral gluteal folds and sacral area, status post debridement Patient was recently at this hospital for sepsis and acute urinary tract infection he was treated with Invanz and responded to treatment. pt presents to the emergency department by EMS from [facility]. Patient is awake and alert and she states she is here in the hospital because of UTI, her Austin catheter is draining turbid yellow urine, she denies any lower abdominal pain. No chest pain or shortness of breath. No coughing. Other respiratory symptoms. She has some low back pain and she has stage IV sacral pressure ulcer. No headache or dizziness Patient afebrile at 101.2. Hypotensive 93/58. She is saturating 91% on room air 96% on 2 L oxygen via nasal cannula Labs show leukocytosis with 15.3, rest of CBC, BMP, liver enzymes are unremarkable. Urine analysis is suspicious of infection. Urine culture from showing sensitive E. coli but resistant providencia Chest x-ray: There is pulmonary edema which is worse than AND COULD BE INCREASING INTERSTITIAL PNEUMONIA. CONGESTIVE HEART FAILURE NOT EXCLUDEd the patient started on Zithromax and ceftriaxone. Also she received IV fluid and apoprotein 10/19/2021 Patient awake and alert and denies any specific complaints. Patient is afebrile, she remains slightly hypotensive and tachycardic however patient is up in bed fully awake and oriented, no dizziness and no other symptoms and she is back to her normal baseline clinically. Labs looks stable. Patient remains on ceftriaxone 2 g and normal saline at 130 mL per hour Renal ultrasound showed large nonobstructive renal cell Objective - Vital Signs Vital signs: Vital Signs Temp 98.7 F 10/19/21 07:49 Pulse 93 10/19/21 07:49 Resp 17 10/19/21 07:49 BP 95/60 10/19/21 07:49 Pulse Ox 94 L 10/19/21 10:09 FiO2 Intake & Output 10/18/21 10/19/21 10/19/21 18:59 06:59 18:59 Intake Total 2009 Output Total 1500 Balance 2009 -1499 Weight 108.409 kg Intake: Intake, IV Titration 1560 Amount Sodium Chloride 0.9% 1, 1560 000 ml @ 130 mls/hr IV . Q7H42M STA Rx#:[id number] Oral 450 Output: Urine 1500 Other: Voiding Method Indwelling Catheter Indwelling Catheter Indwelling Catheter - Exam GENERAL: The patient is alert and oriented x3, not in any acute distress. Well developed, well nourished. HEENT: Pupils are round and equally reacting to light. EOMI. No scleral icterus. No conjunctival pallor. Normocephalic, atraumatic. No pharyngeal erythema. No thyromegaly. CARDIOVASCULAR: S1 and S2 present. No murmurs, rubs, or gallops. PULMONARY: Chest is clear to auscultation, no wheezing or crackles. -ABDOMEN: Soft, nontender, nondistended, normoactive bowel sounds. No palpable organomegaly. Chronic indwelling catheter in place MUSCULOSKELETAL: No joint swelling or deformity. EXTREMITIES: No cyanosis, clubbing, or pedal edema. -NEUROLOGICAL: Cranial nerves are grossly intact. Chronic weakness of the left side and bedridden. No other abnormal neurological findings SKIN: No rashes. No petechiae - Labs CBC & Chem 7: 10/19/21 08:14 10/19/21 08:14 Labs: Abnormal Lab Results - Last 24 Hours (Table) 10/19/21 10/19/21 10/19/21 Range/Units 01:01 08:14 08:14 RBC 3.60 L (3.80-5.40) m/uL Hgb 10.1 L (11.4-16.0) gm/dL Hct 31.7 L (34.0-46.0) % RDW 16.6 H (11.5-15.5) % Lymphocytes # 0.4 L (1.0-4.8) k/uL BUN 36 H (7-17) mg/dL Creatinine 1.12 H (0.52-1.04) mg/dL Glucose 119 H (74-99) mg/dL POC Glucose (mg/dL) 123 H (70-110) mg/dL Microbiology - Last 24 Hours (Table) 10/17/21 23:40 Urine Culture - Final Urine,Voided 10/17/21 23:05 Blood Culture - Preliminary Blood No Growth after 24 hours Assessment and Plan Assessment: Sepsis fever and leukocytosis Acute urinary tract infection, related to Austin catheter. Present on admission large nonobstructive renal stone Bilateral sacral and gluteal pressure ulcers, with history of debridement. Stage IV History of multiple sclerosis with chronic left hemiparesis, wheelchair bound History with infection with ESBL, MRSA, VRE Neurogenic bladder with indwelling Austin catheter History of osteomyelitis Plan: This is a pleasant 51 years old female who is wheelchair-bound from her MS presents with severe sepsis, UTI Continue with broad-spectrum antibiotic Continue with normal saline hydration Consults infectious disease team Labs and medication were reviewed.. Continue same treatment. Continue with symptomatic treatment. Resume home medication. Monitor lytes and vitals. DVT and GI prophylaxis. Further recommendations depends on the clinical course of the patient DVT prophylaxis: Subcutaneous heparin GI Prophylaxis: Ppi Prognosis is guarded
[2021-10-19] MEDS: ATORVASTATIN 10 MG TAB PO SCH (20:52)
[2021-10-20] MEDS: LEVOTHYROXINE 75 MCG TAB PO SCH (05:34)
[2021-10-20] MEDS: SODIUM CHLORIDE 0.9% 1,000 ML IV SCH ×3 (06:19→23:51)
[2021-10-20] MEDS: MULTIVITAMINS, THERA 1 EACH TAB PO SCH (08:37)
[2021-10-20] MEDS: TORSEMIDE 20 MG TAB PO SCH (08:37)
[2021-10-20] MEDS: ASPIRIN 81 MG PO SCH (08:37)
[2021-10-20] MEDS: GABAPENTIN 300 MG CAP PO SCH ×3 (08:37→19:40)
[2021-10-20] MEDS: BACLOFEN 10 MG TAB PO SCH ×3 (08:37→19:40)
[2021-10-20] MEDS: SENNOSIDES 8.6 MG TAB PO SCH ×2 (08:37→20:41)
[2021-10-20] MEDS: OXYBUTYNIN 10 MG TAB.ER.24 PO SCH (08:37)
[2021-10-20] MEDS: MIDODRINE 5 MG TAB PO SCH ×3 (08:37→18:34)
[2021-10-20] MEDS: PANTOPRAZOLE 40 MG TABLET PO SCH (08:37)
[2021-10-20] MEDS: FOLIC ACID 1 MG TAB PO SCH (08:37)
[2021-10-20] MEDS: NYSTATIN 100,000 UNIT/GM POWD 15 GM TOPICAL SCH ×2 (08:38→20:21)
[2021-10-20] MEDS: DIROXIMEL FUMARATE 231 MG PO SCH ×2 (08:38→20:21)
[2021-10-20] MEDS: HYDROcodone/APAP 5-325MG 1 EACH TAB PO PRN ×3 (08:54→21:32)
[2021-10-20 09:20] LABS: Basophils # (A) 0.03 X 10*3/uL (0.00-0.10); Basophils % (A) 0.4 %; Eosinophils # (A) 0.25 X 10*3/uL (0.04-0.35); Eosinophils % (A) 3.3 %; HGB 9.3 g/dL (12.0-15.0); Immature Grans, Automated 0.5 %; Lymphocytes # (A) 0.58 X 10*3/uL (0.90-5.00); Lymphocytes % (A) 7.7 %; MCH 26.6 pg (27.0-32.0); MCV 88.8 fL (80.0-97.0); Mean Platelet Volume 10.7 fL (9.5-12.2); Monocytes # (A) 0.36 X 10*3/uL (0.20-1.00); Monocytes % (A) 4.8 %; NRBC Per 100 WBC 0 /100 WBCS (0.0-0.0); Neutrophils # (A) 6.28 X 10*3/uL (1.80-7.70); Neutrophils % (A) 83.3 %; Platelet Count 277 X 10*3/uL (140-440); RBC 3.49 X 10*6/uL (4.10-5.20); RDW 17.1 % (11.5-14.5); WBC 7.54 X 10*3/uL (4.50-10.00)
[2021-10-20 11:05] LABS: African American GFR (CKD) 55.4 (60.0-200.0); BUN/Creat Ratio 30.62 Ratio (12.00-20.00); Blood Urea Nitrogen 39.8 mg/dL (9.0-27.0); Calcium 9.1 mg/dL (8.7-10.3); Magnesium 1.9 mg/dL (1.5-2.4); Non-African American GFR(CKD) 47.8 (60.0-200.0); Potassium 3.3 mmol/L (3.5-5.5)
[2021-10-20] MEDS ORDERED: Potassium Replacement Protocol 1 EACH MISC MISCELLANE PRN ×3 (11:26→13:43)
[2021-10-20] MEDS: POTASSIUM CHLORIDE ER 20 MEQ TAB.ER PO SCH ×2 (12:13→15:34)
[2021-10-20] MEDS: ATORVASTATIN 10 MG TAB PO SCH (20:41)
--- NOTE | 2021-10-20 21:43 | P.PN ---
Subjective This is a pleasant 51 years old female with past medical history of Hyperlipidemia,, Multiple sclerosis stage IV-wheelchair bound, L side weaker alicia n right, past renal failure with hemodialysis-last time was July 2016, neurogenic bladder with indwelling austin, past sepsis, previous infection with ESBL, MRSA, VRE, iron deficiency anemia, wounds present on bilateral gluteal folds and sacral area, status post debridement Patient was recently at this hospital for sepsis and acute urinary tract infection he was treated with Invanz and responded to treatment. pt presents to the emergency department by EMS from [facility]. Patient is awake and alert and she states she is here in the hospital because of UTI, her Austin catheter is draining turbid yellow urine, she denies any lower abdominal pain. No chest pain or shortness of breath. No coughing. Other respiratory symptoms. She has some low back pain and she has stage IV sacral pressure ulcer. No headache or dizziness Patient afebrile at 101.2. Hypotensive 93/58. She is saturating 91% on room air 96% on 2 L oxygen via nasal cannula Labs show leukocytosis with 15.3, rest of CBC, BMP, liver enzymes are unremarkable. Urine analysis is suspicious of infection. Urine culture from showing sensitive E. coli but resistant providencia Chest x-ray: There is pulmonary edema which is worse than AND COULD BE INCREASING INTERSTITIAL PNEUMONIA. CONGESTIVE HEART FAILURE NOT EXCLUDEd the patient started on Zithromax and ceftriaxone. Also she received IV fluid and apoprotein 10/19/2021 Patient awake and alert and denies any specific complaints. Patient is afebrile, she remains slightly hypotensive and tachycardic however patient is up in bed fully awake and oriented, no dizziness and no other symptoms and she is back to her normal baseline clinically. Labs looks stable. Patient remains on ceftriaxone 2 g and normal saline at 130 mL per hour Renal ultrasound showed large nonobstructive renal calculi 10/20/2021 Patient clinically improving, she is up in bed fully awake and pleasant. Mentation at baseline. Strength is improving with no motor weakness. She has chronic left gilberto-plegia and she is bedbound and she has indwelling Austin catheter which is changed during this hospitalization. Repeat urine culture is growing group D enterococcus with final results is pending. Blood pressure is still borderline 110/76, no more fever patient is mildly tachycardic Renal ultrasound showed large nonobstructive renal stone. WBC normal at 7.4, hemoglobin trended down and then 0.1 down to 9.3. Creatinine going up to 1.3 Nephrology team was consulted. Objective - Vital Signs Vital signs: Vital Signs Temp 98.2 F 10/20/21 08:00 Pulse 92 10/20/21 08:00 Resp 17 10/20/21 08:00 BP 108/76 10/20/21 08:00 Pulse Ox 98 10/20/21 08:00 FiO2 Intake & Output 10/19/21 10/20/21 10/20/21 18:59 06:59 18:59 Output Total 5000 1700 Balance -5000 -1700 Output: Urine 5000 1700 Other: Voiding Method Indwelling Catheter Indwelling Catheter Indwelling Catheter # Voids 1 # Bowel Movements 2 - Exam GENERAL: The patient is alert and oriented x3, not in any acute distress. Well developed, well nourished. HEENT: Pupils are round and equally reacting to light. EOMI. No scleral icterus. No conjunctival pallor. Normocephalic, atraumatic. No pharyngeal erythema. No thyromegaly. CARDIOVASCULAR: S1 and S2 present. No murmurs, rubs, or gallops. PULMONARY: Chest is clear to auscultation, no wheezing or crackles. -ABDOMEN: Soft, nontender, nondistended, normoactive bowel sounds. No palpable organomegaly. Chronic indwelling catheter in place MUSCULOSKELETAL: No joint swelling or deformity. EXTREMITIES: No cyanosis, clubbing, or pedal edema. -NEUROLOGICAL: Cranial nerves are grossly intact. Chronic weakness of the left side and bedridden. No other abnormal neurological findings SKIN: No rashes. No petechiae - Labs CBC & Chem 7: 10/20/21 06:23 10/20/21 18:18 Labs: Abnormal Lab Results - Last 24 Hours (Table) 10/19/21 10/20/21 10/20/21 Range/Units 15:47 06:23 06:23 RBC 3.49 L (4.10-5.20) X 10*6/uL Hgb 9.3 L (12.0-15.0) g/dL Hct 31.0 L (37.2-46.3) % MCH 26.6 L (27.0-32.0) pg MCHC 30.0 L (32.0-37.0) g/dL RDW 17.1 H (11.5-14.5) % Lymphocytes # 0.58 L (0.90-5.00) X 10*3/uL Potassium 3.3 L (3.5-5.5) mmol/L BUN 39.8 H (9.0-27.0) mg/dL Est GFR (CKD-EPI)AfAm 55.4 L (60.0-200.0) Est GFR (CKD-EPI)NonAf 47.8 L (60.0-200.0) BUN/Creatinine Ratio 30.62 H (12.00-20.00) Ratio Glucose 126 H (70-110) mg/dL Urine Appearance Cloudy H (Clear) Urine Protein Trace H (Negative) Urine Blood Moderate H (Negative) Ur Leukocyte Esterase Large H (Negative) Urine RBC 20 H (0-5) /hpf Urine WBC 109 H (0-5) /hpf Ur Squamous Epith Cells 5 H (0-4) /hpf Urine Bacteria Few H (None) /hpf Microbiology - Last 24 Hours (Table) 10/17/21 23:05 Blood Culture - Preliminary Blood No Growth after 48 hours 10/19/21 15:47 Urine Culture - Preliminary Urine,Clean Catch 10/17/21 23:40 Urine Culture - Final Urine,Voided Assessment and Plan Assessment: Sepsis fever and leukocytosis Acute urinary tract infection, related to Austin catheter. Present on admission large nonobstructive renal stone Acute kidney injury Bilateral sacral and gluteal pressure ulcers, with history of debridement. Stage IV History of multiple sclerosis with chronic left hemiparesis, wheelchair bound History with infection with ESBL, MRSA, VRE Neurogenic bladder with indwelling Austin catheter History of osteomyelitis Plan: This is a pleasant 51 years old female who is wheelchair-bound from her MS presents with severe sepsis, UTI Continue with broad-spectrum antibiotic. Currently on ceftriaxone Continue with normal saline hydration currently at 130 mL/h. And midodrine with holding parameters. 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 Continue same treatment. Continue with symptomatic treatment. Resume home medication. Monitor lytes and vitals. DVT and GI prophylaxis. Further recommendations depends on the clinical course of the patient DVT prophylaxis: Subcutaneous heparin GI Prophylaxis: Ppi Prognosis is guarded
[2021-10-21] MEDS: LEVOTHYROXINE 75 MCG TAB PO SCH (05:40)
[2021-10-21] MEDS: GABAPENTIN 300 MG CAP PO SCH ×3 (06:00→19:29)
[2021-10-21] MEDS: BACLOFEN 10 MG TAB PO SCH ×3 (06:00→19:29)
[2021-10-21] MEDS: PANTOPRAZOLE 40 MG TABLET PO SCH (07:22)
[2021-10-21] MEDS: MIDODRINE 5 MG TAB PO SCH ×3 (07:22→17:51)
[2021-10-21] MEDS: FOLIC ACID 1 MG TAB PO SCH (09:48)
[2021-10-21] MEDS: ASPIRIN 81 MG PO SCH (09:48)
[2021-10-21] MEDS: HYDROcodone/APAP 5-325MG 1 EACH TAB PO PRN ×2 (09:48→20:56)
[2021-10-21] MEDS: SENNOSIDES 8.6 MG TAB PO SCH ×2 (09:49→20:56)
[2021-10-21] MEDS: OXYBUTYNIN 10 MG TAB.ER.24 PO SCH (09:49)
[2021-10-21] MEDS: DIROXIMEL FUMARATE 231 MG PO SCH ×2 (09:51→20:41)
[2021-10-21] MEDS: NYSTATIN 100,000 UNIT/GM POWD 15 GM TOPICAL SCH ×2 (10:07→20:57)
--- NOTE | 2021-10-21 10:16 | P.NPCON ---
History of Present Illness - Reason for Consult acute renal failure - History of Present Illness Reason for consultation: Acute kidney injury History of present illness: Patient is a 51-year-old female seen in consultation for acute kidney injury. Patient baseline creatinine is near 0.8 and was up to 1.3 yesterday. Patient has history of MS and is wheelchair-bound. Patient has neurogenic bladder with chronic Austin catheter. Patient presented to the hospital from [facility] due to concern for UTI. She was noted to be febrile with temperature of 102.5F on admission. Urine cultures positive for group D enterococcus. Blood culture negative so far. She is on antibiotics. Patient was receiving fluids as well as torsemide. Rate of IV fluids was decreased yesterday. She does have edema in the lower extremity. Patient is nonoliguric. Urine output over 6 L in the last 24 hours. I don't see any nonsteroidals in her home medication list. No history of diabetes. Patient's currently resting in bed. She is sleeping. She is hard to awaken. Not answering verbal questions at this time. Per the nurse, she did eat a third of her breakfast this morning. Vital signs are stable. General: Resting in bed. HEENT: Head exam is unremarkable. LUNGS: Breath sounds decreased. HEART: Rate and Rhythm are regular. ABDOMEN: Soft, obese. EXTREMITITES: 1+ edema. Past Medical History Past Medical History: Hyperlipidemia, Musculoskeletal Disorder, Neurologic Disorder, Pneumonia, Renal Disease, Skin Disorder Additional Past Medical History / Comment(s): Multiple sclerosis stage IV- wheelchair bound, L side weaker than right, past renal failure with hemodialysis-last time was July 2016, neurogenic bladder with indwelling austin, past sepsis, iron deficiency anemia, wounds present on bilateral gluteal folds and sacral area History of Any Multi-Drug Resistant Organisms: ESBL, MRSA, VRE Date of last positivie culture/infection: 03/22/20 VRE;03/08/20 MRSA; ESBL 08/27/17 MDRO Source:: Urine-VRE; Buttock MRSA; ESBL-Urine Past Surgical History: No Surgical Hx Reported Additional Past Surgical History / Comment(s): LP, debridement decubitus sacral ulcer, hemodialysis cath since removed, picc lines Past Anesthesia/Blood Transfusion Reactions: No Reported Reaction Additional Past Anesthesia/Blood Transfusion Reaction / Comment(s): NEVER HAD ANY GENERAL ANES Past Psychological History: No Psychological Hx Reported Additional Psychological History / Comment(s): Pt resides at [facility]. She states she is mostly wheelchair bound-sit to stand device to chair. She has an IDC. Pt feeds herself. Smoking Status: Never smoker Past Alcohol Use History: None Reported Additional Past Alcohol Use History / Comment(s): Patient is a lifelong n onsmoker. She denies any alcohol abuse. Past Drug Use History: None Reported - Past Family History Father History Unknown: Yes Additional Family Medical History / Comment(s): PTS DAD LIVED IN [place]- SHE'S NOT SURE WHAT HE FROM. HE HAD HYPOTENSION. Mother Family Medical History: Coronary Artery Disease (CAD), Diabetes Mellitus, Hyperlipidemia, Hypertension Additional Family Medical History / Comment(s): CARDIAC STENTS Medications and Allergies Home Medications Medication Instructions Recorded Confirmed Type Folic Acid 1 mg PO DAILY 08/22/16 10/17/21 History Potassium Chloride ER [K-Dur 20] 20 meq PO BID 01/12/19 10/17/21 History Aspirin 81 mg PO DAILY 09/15/19 10/17/21 History Multivitamins, Thera [Multivitamin 1 tab PO DAILY@1600 01/31/20 10/17/21 History (formulary)] Sennosides [Senna] 8.6 mg PO BID 01/31/20 10/17/21 History Baclofen [Lioresal] 20 mg PO TID@0700,1300,1900 #6 tab 03/25/20 10/17/21 Rx Acetaminophen [Tylenol 8 Hour] 650 mg PO Q6H PRN 09/22/21 10/17/21 History Atorvastatin [Lipitor] 10 mg PO HS 09/22/21 10/17/21 History Diroximel Fumarate [Vumerity] 462 mg PO BID 09/22/21 10/17/21 History Levothyroxine Sodium [Synthroid] 75 mcg PO DAILY 09/22/21 10/17/21 History Miconazole Powder 1 applic TOPICAL BID 09/22/21 10/17/21 History Oxybutynin ER [Ditropan Xl] 10 mg PO DAILY 09/22/21 10/17/21 History Torsemide [Soaanz] 80 mg PO DAILY 09/22/21 10/17/21 History Gabapentin [Neurontin] 300 mg PO TID@0700,1300,1900 #10 09/26/21 10/17/21 Rx cap HYDROcodone/APAP 5-325MG [Alburtis 1 tab PO Q6H PRN 2 Days #6 tab 09/26/21 10/17/21 Rx 5-325] Omeprazole 20 mg PO DAILY@0700 10/17/21 10/17/21 History Allergies Allergy/AdvReac Type Severity Reaction Status Date / Time adhesive tape Allergy Rash/Hives Verified 10/17/21 23:28 cinnamon Allergy Rash/Hives Verified 10/17/21 23:28 Physical Exam Vitals: Vital Signs Temp Pulse Resp BP BP Pulse Ox 10/21/21 07:25 98.2 F 77 14 110/67 96 10/21/21 07:22 16 10/21/21 02:35 98.0 F 84 16 100/65 97 10/20/21 23:00 96 10/20/21 20:00 97.5 F L 82 18 113/66 95 10/20/21 14:00 97.9 F 82 17 99/67 93 L Intake and Output 10/20/21 10/21/21 10/21/21 22:59 06:59 14:59 Output Total 3500 2850 Balance -3500 -2850 Output: Urine 3500 2850 Other: Voiding Method Indwelling Catheter Indwelling Catheter Results - Lab Results Most recent lab results Calcium 9.1 mg/dL (8.7-10.3) 10/20/21 06:23 Phosphorus 4.2 mg/dL (2.5-4.5) 10/18/21 02:44 Magnesium 1.9 mg/dL (1.5-2.4) 10/20/21 06:23 10/20/21 06:23 10/20/21 18:18 Assessment and Plan Plan: Assessment: 1. Acute kidney injury mostly prerenal secondary to sepsis. Baseline creatinine near 0.8 and was up to 1.3 yesterday. Renal ultrasound showed nonobstructing right-sided stone. No hydronephrosis. Left kidney was not visualized. 2. Severe sepsis secondary to group D enterococcus UTI. On antibiotics. ID following. 3. Neurogenic bladder with chronic Austin catheter. 4. History of MS. 5. Chronic hypotension maintained on midodrine. 6. Lower extremity edema. Plan: Hep-Lock IV fluids. Resume torsemide at a lower dose. Continue to monitor renal function and urine output. Avoid nephrotoxins. Follow-up morning labs. Thank you for the consultation. I will continue to follow the patient with you during her hospital stay.
[2021-10-21 10:32] LABS: Basophils # (A) 0.03 X 10*3/uL (0.00-0.10); Basophils % (A) 0.6 %; Eosinophils # (A) 0.21 X 10*3/uL (0.04-0.35); Eosinophils % (A) 3.9 %; HGB 9.3 g/dL (12.0-15.0); Immature Grans, Automated 0.4 %; Lymphocytes % (A) 11.3 %; MCV 87.2 fL (80.0-97.0); Mean Platelet Volume 10.8 fL (9.5-12.2); Monocytes # (A) 0.33 X 10*3/uL (0.20-1.00); Monocytes % (A) 6.2 %; NRBC Per 100 WBC 0 /100 WBCS (0.0-0.0); Neutrophils # (A) 4.14 X 10*3/uL (1.80-7.70); Neutrophils % (A) 77.6 %; Platelet Count 307 X 10*3/uL (140-440); RBC 3.44 X 10*6/uL (4.10-5.20); WBC 5.33 X 10*3/uL (4.50-10.00)
[2021-10-21 10:40] LABS: African American GFR (CKD) 67.8 (60.0-200.0); Anion Gap 12.5 mmol/L (10.00-18.00); BUN/Creat Ratio 35.91 Ratio (12.00-20.00); Blood Urea Nitrogen 39.5 mg/dL (9.0-27.0); Calcium 9.4 mg/dL (8.7-10.3); Carbon Dioxide 28.5 mmol/L (20.0-27.5); Magnesium 1.8 mg/dL (1.5-2.4); Non-African American GFR(CKD) 58.5 (60.0-200.0); Potassium 3.8 mmol/L (3.5-5.5)
[2021-10-21] MEDS: TORSEMIDE 20 MG TAB PO SCH (11:06)
--- NOTE | 2021-10-21 11:35 | P.PN ---
Subjective Progress Note Date: 10/19/21 Principal diagnosis: Catheter associated urinary tract infection Patient is a 51-year-old female with a past medical history significant for MS patient did have a bedbound state urinary retention with chronic indwelling Chaves catheter and history of recurrent UTI as well as bilateral gluteal and sacral pressure ulcer presented to the hospital with a fever concerning for another episode of catheter associated UTI. On today's evaluation that is 10/19/2021, the patient is afebrile, patient is breathing comfortably. Denies having any chest pain or shortness of breath or cough no abdominal pain no nausea no vomiting and no diarrhea Objective - Vital Signs Vital signs: Vital Signs Temp 97.9 F 10/19/21 14:00 Pulse 100 10/19/21 14:00 Resp 18 10/19/21 14:00 BP 102/68 10/19/21 14:00 Pulse Ox 93 L 10/19/21 14:00 FiO2 Intake & Output 10/18/21 10/19/21 10/19/21 18:59 06:59 18:59 Intake Total 2009 Output Total 1500 5000 Balance 20091500 -4999 Weight 108.409 kg Intake: Intake, IV Titration 1560 Amount Sodium Chloride 0.9% 1, 1560 000 ml @ 130 mls/hr IV . Q7H42M STA Rx#:[id number] Oral 450 Output: Urine 1500 5000 Other: Voiding Method Indwelling Catheter Indwelling Catheter Indwelling Catheter - Exam GENERAL DESCRIPTION: Middle-aged female lying in bed in no distress RESPIRATORY SYSTEM: Unlabored breathing , decreased breath sounds at bases HEART: S1 S2 regular rate and rhythm , ABDOMEN: Soft , no tenderness Examination of the back patient did have a stage III sacral pressure ulcer no slough tissue or surrounding redness patient left posterior thigh wound is healed right posterior thigh did have a wound with no slough tissue no surro unding redness - Labs CBC & Chem 7: 10/21/21 06:36 10/21/21 06:36 Labs: Abnormal Lab Results - Last 24 Hours (Table) 10/19/21 10/19/21 10/19/21 Range/Units 01:01 08:14 08:14 RBC 3.60 L (3.80-5.40) m/uL Hgb 10.1 L (11.4-16.0) gm/dL Hct 31.7 L (34.0-46.0) % RDW 16.6 H (11.5-15.5) % Lymphocytes # 0.4 L (1.0-4.8) k/uL BUN 36 H (7-17) mg/dL Creatinine 1.12 H (0.52-1.04) mg/dL Glucose 119 H (74-99) mg/dL POC Glucose (mg/dL) 123 H (70-110) mg/dL Urine Appearance (Clear) Urine Protein (Negative) Urine Blood (Negative) Ur Leukocyte Esterase (Negative) Urine RBC (0-5) /hpf Urine WBC (0-5) /hpf Ur Squamous Epith Cells (0-4) /hpf Urine Bacteria (None) /hpf 10/19/21 Range/Units 15:47 RBC (3.80-5.40) m/uL Hgb (11.4-16.0) gm/dL Hct (34.0-46.0) % RDW (11.5-15.5) % Lymphocytes # (1.0-4.8) k/uL BUN (7-17) mg/dL Creatinine (0.52-1.04) mg/dL Glucose (74-99) mg/dL POC Glucose (mg/dL) (70-110) mg/dL Urine Appearance Cloudy H (Clear) Urine Protein Trace H (Negative) Urine Blood Moderate H (Negative) Ur Leukocyte Esterase Large H (Negative) Urine RBC 20 H (0-5) /hpf Urine WBC 109 H (0-5) /hpf Ur Squamous Epith Cells 5 H (0-4) /hpf Urine Bacteria Few H (None) /hpf Microbiology - Last 24 Hours (Table) 10/17/21 23:40 Urine Culture - Final Urine,Voided 10/17/21 23:05 Blood Culture - Preliminary Blood No Growth after 24 hours Assessment and Plan (1) Sepsis Current Visit: No Status: Acute Code(s): A41.9 - SEPSIS, UNSPECIFIED ORGANISM SNOMED Code(s): 77886337 (2) Urinary tract infection Current Visit: Yes Status: Acute Code(s): N39.0 - URINARY TRACT INFECTION, SITE NOT SPECIFIED SNOMED Code(s): 58170937 Plan: 1patient was in the hospital with sepsis and respiratory have fever tachycardia elevated white count and lactic acid acidosis likely catheter associated tract infection in this patient who did have a chronic indwelling Chaves catheter patient mention last time it was seen when she was in the hospital and has not been changed since then likely from enteric gram-negative pathogen and in view of response of the fever to Rocephin possible Rocephin sensitive pathogen. 2Foley catheter has been changed and UA cultures obtained from the new catheter which are currently pending. 3patient to continue with Rocephin 2 g daily while waiting for the culture to finalize 4local wound care to the sacral and posterior thigh wound to continue as ordered Time with Patient: Less than 30
--- NOTE | 2021-10-21 11:36 | P.PN ---
Subjective Progress Note Date: 10/20/21 Principal diagnosis: Catheter associated urinary tract infection Patient is a 51-year-old female with a past medical history significant for MS patient did have a bedbound state urinary retention with chronic indwelling Chaves catheter and history of recurrent UTI as well as bilateral gluteal and sacral pressure ulcer presented to the hospital with a fever concerning for another episode of catheter associated UTI. On today's evaluation that is 10/20/2021, the patient remains to be afebrile, patient is breathing comfortably on room air, the patient denies having any chest pain or shortness of breath or cough no abdominal pain no nausea no vomiting and no diarrhea Objective - Vital Signs Vital signs: Vital Signs Temp 98.2 F 10/20/21 08:00 Pulse 92 10/20/21 08:00 Resp 17 10/20/21 08:00 BP 108/76 10/20/21 08:00 Pulse Ox 98 10/20/21 08:00 FiO2 Intake & Output 10/19/21 10/20/21 10/20/21 18:59 06:59 18:59 Output Total 5000 1700 Balance -5000 -1700 Output: Urine 5000 1700 Other: Voiding Method Indwelling Catheter Indwelling Catheter Indwelling Catheter # Voids 1 # Bowel Movements 2 - Exam GENERAL DESCRIPTION: Middle-aged female lying in bed in no distress RESPIRATORY SYSTEM: Unlabored breathing , decreased breath sounds at bases HEART: S1 S2 regular rate and rhythm , ABDOMEN: Soft , no tenderness - Labs CBC & Chem 7: 10/21/21 06:36 10/21/21 06:36 Labs: Abnormal Lab Results - Last 24 Hours (Table) 10/19/21 10/20/21 10/20/21 Range/Units 15:47 06:23 06:23 RBC 3.49 L (4.10-5.20) X 10*6/uL Hgb 9.3 L (12.0-15.0) g/dL Hct 31.0 L (37.2-46.3) % MCH 26.6 L (27.0-32.0) pg MCHC 30.0 L (32.0-37.0) g/dL RDW 17.1 H (11.5-14.5) % Lymphocytes # 0.58 L (0.90-5.00) X 10*3/uL Potassium 3.3 L (3.5-5.5) mmol/L BUN 39.8 H (9.0-27.0) mg/dL Est GFR (CKD-EPI)AfAm 55.4 L (60.0-200.0) Est GFR (CKD-EPI)NonAf 47.8 L (60.0-200.0) BUN/Creatinine Ratio 30.62 H (12.00-20.00) Ratio Glucose 126 H (70-110) mg/dL Urine Appearance Cloudy H (Clear) Urine Protein Trace H (Negative) Urine Blood Moderate H (Negative) Ur Leukocyte Esterase Large H (Negative) Urine RBC 20 H (0-5) /hpf Urine WBC 109 H (0-5) /hpf Ur Squamous Epith Cells 5 H (0-4) /hpf Urine Bacteria Few H (None) /hpf Microbiology - Last 24 Hours (Table) 10/17/21 23:05 Blood Culture - Preliminary Blood No Growth after 48 hours 10/19/21 15:47 Urine Culture - Preliminary Urine,Clean Catch 10/17/21 23:40 Urine Culture - Final Urine,Voided Assessment and Plan (1) Sepsis Current Visit: No Status: Acute Code(s): A41.9 - SEPSIS, UNSPECIFIED ORGAN ISM SNOMED Code(s): 50256260 (2) Urinary tract infection Current Visit: Yes Status: Acute Code(s): N39.0 - URINARY TRACT INFECTION, SITE NOT SPECIFIED SNOMED Code(s): 94825415 Plan: 1patient was in the hospital with sepsis and respiratory have fever tachycardia elevated white count and lactic acid acidosis likely catheter associated tract infection in this patient who did have a chronic indwelling Chaves catheter aquilino lopez mention last time it was seen when she was in the hospital and has not been changed since then likely from enteric gram-negative pathogen and in view of response of the fever to Rocephin possible Rocephin sensitive pathogen. 2Foley catheter has been changed and UA cultures obtained from the new catheter which are currently pending. 3patient is currently being treated with Rocephin 2 g daily while waiting for the culture to finalize determine her discharge antibiotics Time with Patient: Less than 30
--- NOTE | 2021-10-21 11:37 | P.PN ---
Subjective Progress Note Date: 10/21/21 Principal diagnosis: Catheter associated urinary tract infection Patient is a 51-year-old female with a past medical history significant for MS patient did have a bedbound state urinary retention with chronic indwelling Chaves catheter and history of recurrent UTI as well as bilateral gluteal and sacral pressure ulcer presented to the hospital with a fever concerning for another episode of catheter associated UTI. On today's evaluation that is 10/21/2021, the patient continues to be afebrile, patient is breathing comfortably on room air, the patient denies chest pain or shortness of breath or cough. Denies abdominal pain no nausea no vomiting and no diarrhea Objective - Vital Signs Vital signs: Vital Signs Temp 98.2 F 10/21/21 07:25 Pulse 77 10/21/21 07:25 Resp 14 10/21/21 07:25 BP 110/67 10/21/21 07:25 Pulse Ox 96 10/21/21 07:25 FiO2 Intake & Output 10/20/21 10/21/21 10/21/21 18:59 06:59 18:59 Output Total 3500 2850 400 Balance -3500 -2850 -400 Output: Urine 3500 2850 400 Other: Voiding Method Indwelling Catheter Indwelling Catheter Indwelling Catheter - Exam GENERAL DESCRIPTION: Middle-aged female lying in bed in no distress RESPIRATORY SYSTEM: Unlabored breathing , decreased breath sounds at bases HEART: S1 S2 regular rate and rhythm , ABDOMEN: Soft , no tenderness - Labs CBC & Chem 7: 10/21/21 06:36 10/21/21 06:36 Labs: Abnormal Lab Results - Last 24 Hours (Table) 10/20/21 10/21/21 10/21/21 Range/Units 12:59 06:36 06:36 RBC 3.44 L (4.10-5.20) X 10*6/uL Hgb 9.3 L (12.0-15.0) g/dL Hct 30.0 L (37.2-46.3) % MCHC 31.0 L (32.0-37.0) g/dL RDW 17.0 H (11.5-14.5) % Lymphocytes # 0.60 L (0.90-5.00) X 10*3/uL Potassium 3.2 L (3.5-5.1) mmol/L Carbon Dioxide 28.5 H (20.0-27.5) mmol/L BUN 39.5 H (9.0-27.0) mg/dL Est GFR (CKD-EPI)NonAf 58.5 L (60.0-200.0) BUN/Creatinine Ratio 35.91 H (12.00-20.00) Ratio Glucose 147 H (70-110) mg/dL Microbiology - Last 24 Hours (Table) 10/17/21 23:40 Urine Culture - Final Urine,Voided 10/17/21 23:05 Blood Culture - Preliminary Blood No Growth after 72 hours 10/19/21 15:47 Urine Culture - Preliminary Urine,Clean Catch Group D Enterococcus Assessment and Plan (1) Sepsis Current Visit: No Status: Acute Code(s): A41.9 - SEPSIS, UNSPECIFIED ORGANISM SNOMED Code(s): 49258825 (2) Urinary tract infection Current Visit: Yes Status: Acute Code(s): N39.0 - URINARY TRACT INFECTION, SITE NOT SPECIFIED SNOMED Code(s): 74253047 Plan: 1patient was in the hospital with sepsis and respiratory have fever tachycardia elevated white count and lactic acid acidosis likely catheter associated tract infection in this patient who did have a chronic indwelling Chaves catheter patient mention last time it was seen when she was in the hospital and has not been changed since then likely from enteric gram-negative pathogen, blood culture has been negative initial urine culture negative repeat urine is showing enterococcus as the sensitivity is pending 2-we will discontinue Rocephin and start the patient on Unasyn while awaiting for the sensitivity on the enterococcus to determine discharge antibiotics Time with Patient: Less than 30
[2021-10-21] MEDS: AMPICILLIN-SULBACTAM 3 GM in SODIUM CHLORIDE 0.9% 100 ML IVPB SCH ×2 (13:03→19:44)
[2021-10-21] MEDS: MULTIVITAMINS, THERA 1 EACH TAB PO SCH (19:44)
[2021-10-21] MEDS: ATORVASTATIN 10 MG TAB PO SCH (20:57)
[2021-10-22] MEDS ORDERED: DEXTROSE 50% SYRINGE 50 ML IVP PRN ×2 (00:06)
--- NOTE | 2021-10-22 00:11 | P.PN ---
Subjective Progress Note Date: 10/21/21 This is a 51 year old female with history of MS, wheel chair bound, as well as chronic IDC with recurrent UTI and sacral wounds. She is admitted for Fever and sepsis found to have VRE in the urine. Infectious disease is following patient, ceftriaxone has been discontinued and patient has been started on IV unasyn. No acute events overnight, overall she is feeling better today. No fevers noted, she denies dysuria, no suprupubic tenderness on exam. Nephrology was consulted regarding elevated creatinine which has improved today; BUN 39.5, creatinine 1.1. No white count, hgb stable at 9.3, sodium 141, potassium 3.8. Magnesium 1.8. Possible discharge back to [facility] tomorrow. Review of Systems Constitutional: Denied any fatigue denied any fever. Cardio vascular: denied any chest pain, palpitations Gastrointestinal: denied any nausea, vomiting, diarrhea Pulmonary: Denied any shortness of breath cough Neurologic denied any new focal deficits All inpatient medications were reviewed and appropriate changes in these medications as dictated in the interval history and assessment and plan. PHYSICAL EXAMINATION: GENERAL: The patient is alert and oriented x3, not in any acute distress. Well developed, well nourished. HEENT: Pupils are round and equally reacting to light. EOMI. No scleral icterus. No conjunctival pallor. Normocephalic, atraumatic. No pharyngeal erythema. No thyromegaly. CARDIOVASCULAR: S1 and S2 present. No murmurs, rubs, or gallops. PULMONARY: Chest is clear to auscultation, no wheezing or crackles. ABDOMEN: Soft, nontender, nondistended, normoactive bowel sounds. No palpable organomegaly. Chronic IDC in place, urine clear and yellow. MUSCULOSKELETAL: No joint swelling or deformity. EXTREMITIES: No cyanosis, clubbing, or pedal edema. NEUROLOGICAL: Cranial nerves grossly intact, chronic weakness of left side. Pt is bedridden. SKIN: No rashes. Assessment and Plan Assessment Acute on chronic UTI with sepsis most likely from chronic indwelling catheter, cultures are showing VRE Acute kidney injury Bilateral sacral and gluteal pressure ulcers history of debridement Stage IV Hypotension maintained on midodrine Large nonobstrucive renal stone History of MDRO Neurogenic bladder with chronic IDC Anemia, iron deficient Hyperglycemia, no history of diabetes History of MS, wheel chair bound Obesity GI Prophylaxis DVT Prophylaxis Full Code Plan Continue IVPB unasyn, final discharge recommendations from ID IV fluids have been discontinued blood glucose monitoring and check A1C Repeat labs in AM Possible DC back to [facility] in the next 24 to 48 hours The impression and plan of care has been dictated by Estela Cole, Nurse Practitioner as directed. Dr. Evelin MD I have performed a history and physical examination and medical decision making of this patient, discussed the same with the dictator, and agree with the dictators assessment and plan as written, documented as a scribe. Based on total visit time, I have performed more than 50% of this visit. Objective - Vital Signs Vital signs: Vital Signs Temp 98.6 F 10/21/21 11:48 Pulse 76 10/21/21 11:48 Resp 16 10/21/21 11:48 BP 118/80 10/21/21 11:48 Pulse Ox 92 L 10/21/21 11:48 FiO2 Intake & Output 10/20/21 10/21/21 10/21/21 18:59 06:59 18:59 Output Total 3500 2850 400 Balance -3500 -2850 -400 Weight 108.409 kg Output: Urine 3500 2850 400 Other: Voiding Method Indwelling Catheter Indwelling Catheter Indwelling Catheter - Labs CBC & Chem 7: 10/21/21 06:36 10/21/21 06:36 Labs: Abnormal Lab Results - Last 24 Hours (Table) 10/21/21 10/21/21 Range/Units 06:36 06:36 RBC 3.44 L (4.10-5.20) X 10*6/uL Hgb 9.3 L (12.0-15.0) g/dL Hct 30.0 L (37.2-46.3) % MCHC 31.0 L (32.0-37.0) g/dL RDW 17.0 H (11.5-14.5) % Lymphocytes # 0.60 L (0.90-5.00) X 10*3/uL Carbon Dioxide 28.5 H (20.0-27.5) mmol/L BUN 39.5 H (9.0-27.0) mg/dL Est GFR (CKD-EPI)NonAf 58.5 L (60.0-200.0) BUN/Creatinine Ratio 35.91 H (12.00-20.00) Ratio Glucose 147 H (70-110) mg/dL Microbiology - Last 24 Hours (Table) 10/17/21 23:40 Urine Culture - Final Urine,Voided 10/17/21 23:05 Blood Culture - Preliminary Blood No Growth after 72 hours 10/19/21 15:47 Urine Culture - Preliminary Urine,Clean Catch Group D Enterococcus Assessment and Plan Time with Patient: Less than 30
[2021-10-22] MEDS: AMPICILLIN-SULBACTAM 3 GM in SODIUM CHLORIDE 0.9% 100 ML IVPB SCH ×2 (00:15→06:27)
[2021-10-22] MEDS: LEVOTHYROXINE 75 MCG TAB PO SCH (06:27)
[2021-10-22] MEDS: HYDROcodone/APAP 5-325MG 1 EACH TAB PO PRN ×2 (06:29→12:13)
[2021-10-22 07:15] VITALS: TEMP 97.7
[2021-10-22 07:32] LABS: African American GFR (CKD) 71 (>60 ml/min/1.73 sqM); Anion Gap 8 mmol/L; Blood Urea Nitrogen 45 mg/dL (7-17); Carbon Dioxide 31 mmol/L (22-30); Chloride 102 mmol/L (98-107); Glucose 124 mg/dL (74-99); Magnesium 1.7 mg/dL (1.6-2.3); Non-African American GFR(CKD) 62 (>60 ml/min/1.73 sqM); Potassium 3.5 mmol/L (3.5-5.1); Sodium 141 mmol/L (137-145)
[2021-10-22] MEDS: DIROXIMEL FUMARATE 231 MG PO SCH (08:09)
[2021-10-22] MEDS: INSULIN ASPART (NovoLOG) 100 UNIT/ML VIAL SQ SCH ×2 (08:10→11:54)
[2021-10-22] MEDS: GABAPENTIN 300 MG CAP PO SCH ×2 (08:19→12:06)
[2021-10-22] MEDS: OXYBUTYNIN 10 MG TAB.ER.24 PO SCH (08:19)
[2021-10-22] MEDS: BACLOFEN 10 MG TAB PO SCH ×2 (08:19→12:06)
[2021-10-22] MEDS: PANTOPRAZOLE 40 MG TABLET PO SCH (08:19)
[2021-10-22] MEDS: ASPIRIN 81 MG PO SCH (08:19)
[2021-10-22] MEDS: FOLIC ACID 1 MG TAB PO SCH (08:19)
[2021-10-22] MEDS: SENNOSIDES 8.6 MG TAB PO SCH (08:19)
[2021-10-22] MEDS: TORSEMIDE 20 MG TAB PO SCH (08:20)
[2021-10-22] MEDS: NYSTATIN 100,000 UNIT/GM POWD 15 GM TOPICAL SCH (08:20)
[2021-10-22] MEDS: MIDODRINE 5 MG TAB PO SCH ×2 (08:21→12:06)
[2021-10-22] MEDS ORDERED: Magnesium Replacement Protocol 1 EACH MISC MISCELLANE PRN (08:44)
[2021-10-22] MEDS ORDERED: POTASSIUM CHLORIDE ER 20 MEQ TAB.ER PO STA (08:45)
--- NOTE | 2021-10-22 09:15 | P.PN ---
Subjective Patient is seen in follow-up for acute kidney injury. Renal function is improved. Awake. Oral intake has been fair. Has a chronic Chaves catheter and is nonoliguric. Denies vomiting or diarrhea. Vital signs are stable. General: Awake. No acute distress. HEENT: Head exam is unremarkable. LUNGS: Breath sounds decreased. HEART: Rate and Rhythm are regular. ABDOMEN: Soft, obese. EXTREMITITES: 1+ edema. Objective - Vital Signs Vital signs: Vital Signs Temp 97.7 F 10/22/21 07:15 Pulse 72 10/22/21 07:15 Resp 17 10/22/21 07:15 BP 172/77 10/22/21 07:15 Pulse Ox 96 10/22/21 07:15 FiO2 Intake & Output 10/21/21 10/22/21 10/22/21 18:59 06:59 18:59 Intake Total 590 Output Total 1900 1400 Balance -1900 -810 Weight 108.409 kg Intake: Oral 590 Output: Urine 1900 1400 Other: Voiding Method Indwelling Catheter Indwelling Catheter - Labs CBC & Chem 7: 10/21/21 06:36 10/22/21 06:43 Labs: Abnormal Lab Results - Last 24 Hours (Table) 10/21/21 10/21/21 10/22/21 Range/Units 06:36 06:36 06:43 RBC 3.44 L (4.10-5.20) X 10*6/uL Hgb 9.3 L (12.0-15.0) g/dL Hct 30.0 L (37.2-46.3) % MCHC 31.0 L (32.0-37.0) g/dL RDW 17.0 H (11.5-14.5) % Lymphocytes # 0.60 L (0.90-5.00) X 10*3/uL Carbon Dioxide 28.5 H 31 H (20.0-27.5) mmol/L BUN 39.5 H 45 H (9.0-27.0) mg/dL Creatinine 1.06 H (0.52-1.04) mg/dL Est GFR (CKD-EPI)NonAf 58.5 L (60.0-200.0) BUN/Creatinine Ratio 35.91 H (12.00-20.00) Ratio Glucose 147 H 124 H (70-110) mg/dL Microbiology - Last 24 Hours (Table) 10/17/21 23:05 Blood Culture - Preliminary Blood No Growth after 96 hours 10/19/21 15:47 Urine Culture - Final Urine,Clean Catch Enterococcus faecium VRE 10/17/21 23:40 Urine Culture - Final Urine,Voided Assessment and Plan Plan: Assessment: 1. Acute kidney injury mostly prerenal secondary to sepsis. Baseline creatinine near 0.8 and peaked at 1.3 this admission - 1.06 today. Renal ultrasound showed nonobstructing right-sided stone. No hydronephrosis. Left kidney was not visualized. 2. Severe sepsis secondary to VRE UTI. On antibiotics. ID following. 3. Neurogenic bladder with chronic Chaves catheter. 4. History of MS. 5. Chronic hypotension maintained on midodrine. 6. Lower extremity edema. 7. Hypokalemia from diuresis. Plan: Maintain torsemide. Continue to monitor renal function and urine output. Avoid nephrotoxins. Potassium and magnesium being replaced. Encourage oral intake.
[2021-10-22] MEDS: MAGNESIUM SULFATE-D5W PMX 1 GM in DEXTROSE/WATER 1 100ML.BAG IVPB SCH ×2 (09:20→11:57)
[2021-10-22] MEDS ORDERED: LINEZOLID 600 MG TAB PO SCH (10:45)
--- NOTE | 2021-10-22 11:39 | P.DS ---
Providers Date of admission: 10/17/21 23:15 Attending physician: Clementine Mc Consults: 10/18/21 07:32 Consult Physician Urgent Consulting Provider: Bobo Rivero Consult Reason/Comments: Sepsis Do you want consulting provider notified?: Yes 10/20/21 11:27 Consult Physician Urgent Consulting Provider: Fawad Aldridge Consult Reason/Comments: liliana Do you want consulting provider notified?: Yes Primary care physician: Physician Nonstaff Hospital Course: Diagnosis Acute on chronic UTI with sepsis most likely from chronic indwelling catheter, cultures are showing VRE Acute kidney injury Bilateral sacral and gluteal pressure ulcers history of debridement Stage IV Hypotension maintained on midodrine Large nonobstrucive renal stone History of MDRO Neurogenic bladder with chronic IDC Anemia, iron deficient Hyperglycemia, no history of diabetes History of MS, wheel chair bound Obesity Full Code Discharge Disposition Patient stable for discharge back to [facility]. Antibiotic recommendations from ID. Patient will repeat labs in 2-3 days. Recommend to follow up with nephrology outpatient as well. Hospital Course This is a 51 year old female with history of MS, wheel chair bound, as well as chronic IDC with recurrent UTI and sacral wounds. Patient was brought to the emergency department by EMS from the medical [place] with concern for turbid yellow urine. Patient was recently treated for sepsis and acute UTI with IV Invanz. 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 She is admitted for Fever and sepsis found to have VRE in the urine. Patient presents a fever while 1.2, hypotensive blood pressure 93/58, she did have leukocytosis at 15.3. Chest x-ray shows pulmonary edema could be increasing interstitial pneumonia. Indwelling catheter has been changed. She had renal ultrasound done showing large nonobstructive renal calculi. Infectious disease is following patient, initially treated with IV ceftriaxone and transitioned to IV unasyn. No fevers noted, she denies dysuria, no suprupubic tenderness on exam. Nephrology was consulted regarding elevated creatinine which peaked at 1.3 this admission, she was admitted with creatinine of 0.8. She'll be continued on torsemide recommended to avoid nephrotoxins, patient will have repeat BMP and magnesium in 2-3 days. 10/22/2021 Patient is evaluated today sitting up in bed. She is alert 3 reports no acute events overnight. She denies shortness of breath, denies chest pain. Denies any nausea or vomiting, no diarrhea. She states that she is tolerating diet well. She appears back at baseline. Urine appears clear yellow and the Chaves drainage bag. Cultures are showing VRE in the urine pending final antibiotic recommendations from infectious disease. Electric today are showing sodium 141, potassium 3.5, albumin 45, creatinine 1.06, magnesium 1.7. Patient received oral potassium and magnesium supplementation. She is afebrile, heart rate 72, blood pressure 113/72, 96% room air. Her lungs are clear, S1-S2 auscultated, abdomen is soft and nontender. Focal neurological exam at baseline continues with weakness left greater than right. She has been started on midodrine which will be continued 3 times a day on discharge. Continue Jaleel supplementation. Please see medication reconciliation for a list of current medication. Thank you for allowing us to participate in the care of this patient. The impression and plan of care has been dictated by Estela Cole, Nurse Practitioner as directed. Dr. Evelin MD I have performed a history and physical examination and medical decision making of this patient, discussed the same with the dictator, and agree with the dictators assessment and plan as written, documented as a scribe. Based on total visit time, I have performed more than 50% of this visit. Patient Condition at Discharge: Fair Plan - Discharge Summary New Discharge Prescriptions: New Torsemide [Demadex] 20 mg PO DAILY tab Midodrine [ProAmatine] 5 mg PO AC-TID tab Ipratropium-Albuterol Nebulize [Duoneb 0.5 mg-3 mg/3 ml Soln] 3 ml INHALATION RT-QID PRN each PRN Reason: Shortness Of Breath Or Wheezing Continue Folic Acid 1 mg PO DAILY Potassium Chloride ER [K-Dur 20] 20 meq PO BID Aspirin 81 mg PO DAILY Sennosides [Senna] 8.6 mg PO BID Multivitamins, Thera [Multivitamin (formulary)] 1 tab PO DAILY@1600 Baclofen [Lioresal] 20 mg PO TID@0700,1300,1900 #6 tab Oxybutynin ER [Ditropan Xl] 10 mg PO DAILY Levothyroxine Sodium [Synthroid] 75 mcg PO DAILY Atorvastatin [Lipitor] 10 mg PO HS Acetaminophen [Tylenol 8 Hour] 650 mg PO Q6H PRN PRN Reason: Pain Diroximel Fumarate [Vumerity] 462 mg PO BID Miconazole Powder 1 applic TOPICAL BID Omeprazole 20 mg PO DAILY@0700 Gabapentin [Neurontin] 300 mg PO TID@0700,1300,1900 #10 cap HYDROcodone/APAP 5-325MG [[place] 5-325] 1 tab PO Q6H PRN 2 Days #6 tab PRN Reason: Pain Discontinued Torsemide [Soaanz] 80 mg PO DAILY Discharge Medication List Folic Acid 1 mg PO DAILY 08/22/16 [History] Potassium Chloride ER [K-Dur 20] 20 meq PO BID 01/12/19 [History] Aspirin 81 mg PO DAILY 09/15/19 [History] Multivitamins, Thera [Multivitamin (formulary)] 1 tab PO DAILY@1600 01/31/20 [History] Sennosides [Senna] 8.6 mg PO BID 01/31/20 [History] Baclofen [Lioresal] 20 mg PO TID@0700,1300,1900 #6 tab 03/25/20 [Rx] Acetaminophen [Tylenol 8 Hour] 650 mg PO Q6H PRN 09/22/21 [History] Atorvastatin [Lipitor] 10 mg PO HS 09/22/21 [History] Diroximel Fumarate [Vumerity] 462 mg PO BID 09/22/21 [History] Levothyroxine Sodium [Synthroid] 75 mcg PO DAILY 09/22/21 [History] Miconazole Powder 1 applic TOPICAL BID 09/22/21 [History] Oxybutynin ER [Ditropan Xl] 10 mg PO DAILY 09/22/21 [History] Omeprazole 20 mg PO DAILY@0700 10/17/21 [History] Gabapentin [Neurontin] 300 mg PO TID@0700,1300,1900 #10 cap 10/22/21 [Rx] HYDROcodone/APAP 5-325MG [[place] 5-325] 1 tab PO Q6H PRN 2 Days #6 tab 10/22/21 [Rx] Ipratropium-Albuterol Nebulize [Duoneb 0.5 mg-3 mg/3 ml Soln] 3 ml INHALATION RT-QID PRN each 10/22/21 [Rx] Midodrine [ProAmatine] 5 mg PO AC-TID tab 10/22/21 [Rx] Torsemide [Demadex] 20 mg PO DAILY tab 10/22/21 [Rx] Follow up [facility]ment[facility]Ref[facility] - As Needed Nonstaff,Physician [Primary Care Provider] - 1 Week Fawad Aldridge DO [STAFF PHYSICIAN] - 1 Week Bobo Rivero MD [STAFF PHYSICIAN] - 1 Week Ambulatory/Diagnostic Orders: Basic Metabolic Panel [LAB.AMB] Time Frame: 3 Days, Location: None Selected Magnesium [LAB.AMB] Time Frame: 3 Days, Location: None Selected Activity/Diet/Wound Care/Special Instructions: Pending discharge antibiotics from Dr Rivero Discharge Disposition: TRANSFER TO SNF/ECF
[2021-10-22 11:47] LABS: Glucose,Whole Blood 132 mg/dL (70-110)
[2021-10-22 13:21] VITALS: BP 107/68; PULSE 95; RESP 17
[2021-10-22] MEDS: MULTIVITAMINS, THERA 1 EACH TAB PO SCH (16:04)
== END 2021-10-22 18:07 | DRG 698 ==
LOC: EC 22:22 → 4SSUR 23:15
PROVIDERS: ADMIT Hospitalist; ATTEND Hospitalist
DX: T83.511A Infection and inflammatory reaction due to indwelling urethral catheter, initial encounter (principal); A41.81 Sepsis due to Enterococcus; L89.154 Pressure ulcer of sacral region, stage 4; L89.324 Pressure ulcer of left buttock, stage 4; L89.314 Pressure ulcer of right buttock, stage 4; N18.6 End stage renal disease; R65.20 Severe sepsis without septic shock; I69.354 Hemiplegia and hemiparesis following cerebral infarction affecting left non-dominant side; N17.9 Acute kidney failure, unspecified; Z16.21 Resistance to vancomycin; J81.1 Chronic pulmonary edema; Z16.24 Resistance to multiple antibiotics; Z20.822 Contact with and (suspected) exposure to COVID-19; N39.0 Urinary tract infection, site not specified; G35 Multiple sclerosis; Z99.2 Dependence on renal dialysis; I95.89 Other hypotension; R33.8 Other retention of urine; E78.5 Hyperlipidemia, unspecified; N31.9 Neuromuscular dysfunction of bladder, unspecified; N20.0 Calculus of kidney; D50.9 Iron deficiency anemia, unspecified; E87.6 Hypokalemia; R73.9 Hyperglycemia, unspecified; E66.9 Obesity, unspecified; Z68.39 Body mass index [BMI] 39.0-39.9, adult; Z74.01 Bed confinement status; Z99.3 Dependence on wheelchair; Z95.5 Presence of coronary angioplasty implant and graft; Z88.8 Allergy status to other drugs, medicaments and biological substances; Z91.048 Other nonmedicinal substance allergy status; Z79.82 Long term (current) use of aspirin; Z79.899 Other long term (current) drug therapy; Z86.14 Personal history of Methicillin resistant Staphylococcus aureus infection; Z87.01 Personal history of pneumonia (recurrent); Z87.440 Personal history of urinary (tract) infections; Z82.49 Family history of ischemic heart disease and other diseases of the circulatory system; Z91.018 Allergy to other foods; Y84.6 Urinary catheterization as the cause of abnormal reaction of the patient, or of later complication, without mention of misadventure at the time of the procedure; Z79.890 Hormone replacement therapy; Z83.3 Family history of diabetes mellitus; Z88.3 Allergy status to other anti-infective agents
CPT/HCPCS: 36415; 71045; 76770; 80048; 80053; 81001; 83036; 83605; 83735; 84100; 84132; 85025; 87040; 87077; 87086; 87186; 87502; 87635; 96365; 96367; 99285

== ENCOUNTER → 2022-04-02 | Outpatient (CLI) | payer OTHER ==
--- NOTE | 2022-04-03 07:13 | MR ---
EXAMINATION TYPE: MR brain/cspine wo/w DATE OF EXAM: 04/02/2022 10:04 AM CLINICAL INDICATION:Female, 51 years old with history of G35,M54.2, M47.812, M54.50, M47.816, R07.9; COMPARISON: TECHNIQUE: Multiplanar, multisequence images of the brain and brainstem is performed. Multi planar, multi sequence imaging was performed utilizing: T1-weighted, T2-weighted, and turbo inv ersion recovery imaging of the cervical spine. MR IV Contrast: 10 cc Gadavist FINDINGS: BRAIN: Diffusion weighted images demonstrate no evidence of a recent infarct or other diffusion abnormality. There is no extra-axial fluid collection or significant white matter signal abnormality. The ventr icular system and cisternal spaces are normal in size and appearance. The brain volume is age approp riate. Midline structures demonstrate normal morphology. The craniocervical junction appears within normal limits. Post contrast images demonstrate no abnormal enhancement. The dural venous sinuses appear pa tent. The visualized sinuses are clear and the globes are intact. C-SPINE: Alignment: The cervical vertebral bodies have preserved heights. Alignment is within normal limits gi mega patient positioning. Bones: Bone signal is within normal limits. Multilevel degenerative disc disease is noted and most p ronounced at the vertebral levels. Cord: The spinal cord is unremarkable with regards to their signal intensity and morphology. Discs: C2-C3: No significant disc pathology. The spinal canal is patent. No neural foraminal stenosis. C3-C4: No significant disc pathology. The spinal canal is patent. No neural foraminal stenosis. C4-C5: No significant disc pathology. The spinal canal is patent. No neural foraminal stenosis. C5-C6: No significant disc pathology. The spinal canal is patent. No neural foraminal stenosis. C6-C7: No significant disc pathology. The spinal canal is patent. No neural foraminal stenosis. C7-T1: No significant disc pathology. The spinal canal is patent. No neural foraminal stenosis. Other: None. IMPRESSION: No evidence of intracranial mass, acute/subacute infarct, or abnormal enhancement. Nonspecific white matter changes, likely related to small vessel ischemic disease No evidence for disc herniation or significant spinal canal stenosis. Multilevel disc degeneration with associated osteoarthritic changes. Diffuse red marrow conversion can be seen in the setting of tobacco abuse, anemia, or myeloproliferat trixie disorder.
--- NOTE | 2022-04-06 08:13 | MR ---
EXAMINATION TYPE: MR brain/cspine wo/w DATE OF EXAM: 04/03/2022 8:04 AM CLINICAL INDICATION:Female, 52 years old with history of G35,M54.2, M47.812, M54.50, M47.816, R07.9; COMPARISON: 12/16/2020 MRI brain, 03/07/2020 MRI brain and C-spine TECHNIQUE: Multiplanar, multisequence images of the brain and brainstem is performed. Multi planar, multi sequence imaging was performed utilizing: T1-weighted, T2- weighted, and turbo inversion recovery imaging of the cervical spine. MR IV Contrast: 10 cc Gadavist FINDINGS: BRAIN: Scattered deep white matter changes are seen throughout the brain. There is T2 shine through seen on diffusion-weighted imaging. No evidence of restricted diffusion. Overall the white matter changes in some of which appear to be in the subcutaneous cortical white matter near the skull vertex in the frontal lobe bilaterally appears similar to prior imaging on 2020 and similar to 2019 given the motion on the exam in 2019. There is no extra-axial fluid collection or significant white matter signal abnormality. The ventricular system and cisternal spaces are normal in size and appearance. The brain volume is age appropriate. Midline structures demonstrate normal morphology. The craniocervical junction appears within normal limits. Post contrast images demonstrate no abnormal enhancement. The dural venous sinuses appear patent. The paranasal sinuses demonstrate mucosal thickening most pronounced in the left maxillary sinus. C-SPINE: Motion artifact limits evaluation of the cervical spine. Alignment: The cervical vertebral bodies have preserved heights. Alignment is within normal limits given patient positioning. Bones: Bone signal is within normal limits. Multilevel degenerative disc disease is noted and most pronounced at the C5-C6 and C6-C7 vertebral levels. No abnormal postcontrast enhancement. Cord: Motion limits evaluation for cord signal overall is grossly maintained. No abnormal postcontrast enhancement. Discs: Intervertebral disc signal is maintained. C2-C3: No significant disc pathology. The spinal canal is patent. No neural foraminal stenosis. C3-C4: No significant disc pathology. The spinal canal is patent. No neural foraminal stenosis. C4-C5: No significant disc pathology. The spinal canal is patent. Bilateral facet and uncovertebral joint arthropathy are present with mild bilateral neural foraminal stenosis. C5-C6: No significant disc pathology. The spinal canal is patent. Bilateral facet and uncovertebral joint arthropathy are present with moderate bilateral neural foraminal stenosis. C6-C7: No significant disc pathology. The spinal canal is patent. Bilateral facet and uncovertebral joint arthropathy are present with moderate right and mild left neural foraminal stenosis. C7-T1: No significant disc pathology. The spinal canal is patent. No neural foraminal stenosis. IMPRESSION: 1. Stable intracranial white matter changes no evidence for active demyelination. 2. No evidence of intracranial mass, acute/subacute infarct, or abnormal enhancement. 3. No evidence for demyelination within the cervical spinal cord. 4. No evidence for disc herniation or significant spinal canal stenosis. 5. Multilevel disc degeneration with associated osteoarthritic changes. MTDD
== END | disposition home or self-care (01) ==
LOC: RADMRIMAIN 08:24
PROVIDERS: ATTEND Nurse Practitioner Acute Care
DX: M50.323 Other cervical disc degeneration at C6-C7 level (principal); M47.812 Spondylosis without myelopathy or radiculopathy, cervical region; M47.816 Spondylosis without myelopathy or radiculopathy, lumbar region; G93.89 Other specified disorders of brain; G35 Multiple sclerosis; R07.9 Chest pain, unspecified
CPT/HCPCS: 70553; 72156; A9585

== ENCOUNTER → 2022-04-10 | Outpatient (CLI) | payer OTHER ==
--- NOTE | 2022-04-13 15:26 | MR ---
EXAMINATION TYPE: MR lumbar spine wo con, MR thoracic spine wo/w con DATE OF EXAM: 04/10/2022 8:59 AM COMPARISON: 12/16/2020 MRI lumbar spine, 05/17/2023 spine. CLINICAL INDICATION:Female, 52 years old with history of G35,M54.2, M47.812, M54.50, M47.816, R07.9; TECHNIQUE: Multi planar, multi sequence imaging was performed utilizing: T1-weighted, T2-weighted, a nd turbo inversion recovery imaging of the thoracic and lumbar spine. IV Contrast: 10 cc Gadavist. FINDINGS: Alignment: The lumbar vertebral bodies have preserved heights. Mild increased kyphosis of the thoraci c spine.. Cord: The conus medullaris and the distal spinal cord appear unremarkable with regards to their signa l intensity and morphology. Bones/Discs: Mild degeneration changes with osteophyte formation and scattered disc space narrowing. Facet joint arthropathy seen throughout the spine. No abnormal bony edema within the osseous structur es. No abnormal bone mineral enhancement on postcontrast imaging. Disc signal is grossly maintained Thoracic spine: No evidence for significant spinal canal stenosis T12-L1: No evidence of significant spinal canal stenosis or neural foraminal stenosis. L1-L2: No evidence of significant spinal canal stenosis or neural foraminal stenosis. L2-L3: No evidence of significant spinal canal stenosis or neural foraminal stenosis. L3-L4: No evidence of significant spinal canal stenosis or neural foraminal stenosis. L4-L5: No evidence of significant spinal canal stenosis. Facet joint arthropathy mild left neural for aminal stenosis. The right neural foramen is patent. L5-S1: The disc is rounded posterior morphology without significant spinal canal stenosis. Facet join t arthropathy with mild left neural foraminal stenosis. Right neural foramen is patent. Other findings: Low T1/low T2 signal gallstones within the gallbladder lumen. IMPRESSION: 1. Essentially similar exam without definitive evidence of disc herniation or significant spinal can al stenosis. 2. Mild disc degeneration with associated osteoarthritic changes most pronounced in the lumbar spine .
== END | disposition home or self-care (01) ==
LOC: RADMRIMAIN 07:20
PROVIDERS: ATTEND Nurse Practitioner Acute Care
DX: M51.36 Other intervertebral disc degeneration, lumbar region (principal); M47.816 Spondylosis without myelopathy or radiculopathy, lumbar region; M47.812 Spondylosis without myelopathy or radiculopathy, cervical region; M47.814 Spondylosis without myelopathy or radiculopathy, thoracic region; G35 Multiple sclerosis; R07.9 Chest pain, unspecified
CPT/HCPCS: 72148; 72157; A9585

== ENCOUNTER 2022-12-22 19:10 | Inpatient (IN) | payer OTHER ==
[2022-12-22] MEDS ORDERED: SODIUM CHLORIDE 0.9% 1,000 ML IV STA ×2 (19:18→19:19)
[2022-12-22] MEDS ORDERED: IBUPROFEN 600 MG TAB PO STA (19:19)
[2022-12-22] MEDS ORDERED: ACETAMINOPHEN TAB 500 MG TAB PO STA (19:19)
[2022-12-22] MEDS ORDERED: VANCOMYCIN IV PER PHARMACY 1 EACH MISC MISCELLANE PRN (19:20)
[2022-12-22] MEDS ORDERED: CEFEPIME 2 GM in SODIUM CHLORIDE 0.9% 100 ML IVPB STA (19:20)
[2022-12-22] MEDS ORDERED: VANCOMYCIN 1,750 MG in SODIUM CHLORIDE 0.9% 500 ML 500 ML IVPB STA (19:28)
[2022-12-22 20:09] LABS: Anisocytosis Slight; Basophils % (A) 0 %; Eosinophils % (A) 0 %; HCT 33.2 % (34.0-46.0); HGB 10.4 gm/dL (11.4-16.0); Hypochromasia Slight; Lymphocytes # (A) 0.5 k/uL (1.0-4.8); Lymphocytes % (A) 3 %; MCH 26.8 pg (25.0-35.0); MCHC 31.5 g/dL (31.0-37.0); MCV 85.3 fL (80.0-100.0); Mean Platelet Volume 7.8; Monocytes # (A) 0.4 k/uL (0-1.0); Monocytes % (A) 3 %; Neutrophils # (A) 15.5 k/uL (1.3-7.7); Neutrophils % (A) 94 %; Platelet Count 288 k/uL (150-450); RBC 3.89 m/uL (3.80-5.40); RDW 16.4 % (11.5-15.5); WBC 16.5 k/uL (3.8-10.6)
[2022-12-22 20:25] LABS: ALT 22 U/L (4-34); AST 20 U/L (14-36); African American GFR (CKD) >90 (>60 ml/min/1.73 sqM); Albumin 3.8 g/dL (3.5-5.0); Alkaline Phosphatase 78 U/L (38-126); Anion Gap 13 mmol/L; Blood Urea Nitrogen 27 mg/dL (7-17); Calcium 8.9 mg/dL (8.4-10.2); Carbon Dioxide 24 mmol/L (22-30); Chloride 107 mmol/L (98-107); Glucose 148 mg/dL (74-99); Magnesium 1.7 mg/dL (1.6-2.3); Non-African American GFR(CKD) 85 (>60 ml/min/1.73 sqM); Potassium 3.8 mmol/L (3.5-5.1); Sodium 144 mmol/L (137-145); Total Protein 6.7 g/dL (6.3-8.2)
[2022-12-22 20:33] LABS: NT-Pro-B-Type Natriuretic Pept 902 pg/mL
[2022-12-22 20:50] LABS: INR 1.2 (<1.2); Partial Thromboplastin Time 29.3 sec (22.0-30.0); Prothrombin Time 11.9 sec (9.0-12.0)
--- NOTE | 2022-12-22 21:28 | XR ---
EXAMINATION TYPE: XR chest 2V DATE OF EXAM: 12/22/2022 COMPARISON: Prior chest x-ray May 14, 2022 HISTORY: Weakness. TECHNIQUE: Frontal and lateral views of the chest are obtained. FINDINGS: Low lung volumes and cardiomegaly redemonstrated. Central vascular congestion again seen. No large pleural effusion or pneumothorax noted bilaterally The osseous structures are intact. IMPRESSION: Lung volumes and cardiomegaly with central vascular congestion. Correlate for possible C HF exacerbation. Similar findings noted on prior.
[2022-12-22] MEDS ORDERED: NALOXONE 0.4 MG/ML 1 ML VIAL IV PRN (21:41)
[2022-12-22] MEDS ORDERED: ACETAMINOPHEN TAB 325 MG TAB PO PRN (21:41)
--- NOTE | 2022-12-22 21:45 | ED ---
General Adult HPI - General Chief complaint: Fever Stated complaint: Poss Sepsis Time Seen by Provider: 12/22/22 19:18 Source: patient, EMS, RN notes reviewed, old records reviewed Mode of arrival: EMS - History of Present Illness Initial comments: Patient is a 52-year-old female presents emergency Department complaining of possible infection. Presents from her nursing facility. She has a history of MS which is why she is there. Patient currently has no acute complaints. Denies any cough or fevers. Denies chest pain. Denies abdominal pain. Denies any dysuria or hematuria. Has chronic indwelling urinary catheter. History of UTIs. Presents for further evaluation. Per EMS, patient was hypotensive initially responded approximately 500 mL of fluid. We will administer an additional bolus here. Upon arrival, blood pressure was systolic in the 80s. - Related Data Home Medications Medication Instructions Recorded Confirmed Folic Acid 1 mg PO DAILY 08/22/16 12/22/22 Potassium Chloride ER [K-Dur 20] 20 meq PO BID 01/12/19 12/22/22 Aspirin 81 mg PO DAILY 09/15/19 12/22/22 Sennosides [Senna] 8.6 mg PO BID 01/31/20 12/22/22 Acetaminophen [Tylenol 8 Hour] 650 mg PO Q6H PRN 09/22/21 12/22/22 Atorvastatin [Lipitor] 10 mg PO HS@199909/22/21 12/22/22 Diroximel Fumarate [Vumerity] 462 mg PO BID 09/22/21 12/22/22 Levothyroxine Sodium [Synthroid] 75 mcg PO DAILY@199909/22/21 12/22/22 Omeprazole 20 mg PO DAILY 10/17/21 12/22/22 Ascorbic Acid [Vitamin C] 500 mg PO DAILY 05/14/22 12/22/22 Furosemide [Lasix] 20 mg PO DAILY 05/14/22 12/22/22 Gabapentin [Neurontin] 300 mg PO BID 05/14/22 12/22/22 HYDROcodone/APAP 5-325MG [[place] 1 tab PO QID@07,13,19,23 05/14/22 12/22/22 5-325] Pro-Stat Liquid (Amino 30 ml PO TID@0700,1100,1600 05/14/22 12/22/22 Acids-Protein Hydrolysate) Acetaminophen Suppository [Tylenol 650 mg RECTAL ONCE 12/22/22 12/22/22 Suppository] Baclofen 10 mg PO TID@0700,1300,1900 12/22/22 12/22/22 Multivitamins, Thera [Multivitamin 1 tab PO DAILY@0700 12/22/22 12/22/22 (formulary)] Promethazine HCl 12.5 mg PO Q6H PRN 12/22/22 12/22/22 cefTRIAXone [Rocephin] 1 gm IM Q24H 12/22/22 12/22/22 Allergies Allergy/AdvReac Type Severity Reaction Status Date / Time adhesive tape Allergy Rash/Hives Verified 12/22/22 21:09 cinnamon Allergy Rash/Hives Verified 12/22/22 21:09 Review of Systems ROS Statement: Those systems with pertinent positive or pertinent negative responses have been documented in the HPI. Review of Systems: CONST: Denies fever EYES: Denies blurry vision ENT: Denies nasal congestion C/V: Denies Chest pain RESP: Denies shortness of breath GI: Denies abdominal pain : Denies dysuria SKIN: Denies rash. MSK: Denies joint pain. NEURO: Denies headache ROS Other: All systems not noted in ROS Statement are negative. Past Medical History Past Medical History: Hyperlipidemia, Musculoskeletal Disorder, Neurologic Disorder, Pneumonia, Renal Disease, Skin Disorder Additional Past Medical History / Comment(s): Multiple sclerosis stage IV- wheelchair bound, L side weaker than right, past renal failure with hemodialysis-last time was July 2016, neurogenic bladder with indwelling austin, past sepsis, iron deficiency anemia, wounds present on bilateral gluteal folds and sacral area History of Any Multi-Drug Resistant Organisms: ESBL, MRSA, VRE Date of last positivie culture/infection: 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;03/08/20 MRSA; ESBL 08/27/17 MDRO Source:: Urine-VRE; Buttock MRSA; ESBL-Urine Past Surgical History: No Surgical Hx Reported Additional Past Surgical History / Comment(s): LP, debridement decubitus sacral ulcer, hemodialysis cath since removed, picc lines Past Anesthesia/Blood Transfusion Reactions: No Reported Reaction Additional Past Anesthesia/Blood Transfusion Reaction / Comment(s): NEVER HAD ANY GENERAL ANES Past Psychological History: No Psychological Hx Reported Smoking Status: Never smoker Past Alcohol Use History: None Reported Past Drug Use History: None Reported - Past Family History Father History Unknown: Yes Additional Family Medical History / Comment(s): PTS DAD LIVED IN [place]- SHE'S NOT SURE WHAT HE FROM. HE HAD HYPOTENSION. Mother Family Medical History: Coronary Artery Disease (CAD), Diabetes Mellitus, Hyperlipidemia, Hypertension Additional Family Medical History / Comment(s): CARDIAC STENTS General Exam - General Exam Comments Initial Comments: General: Appears in no acute distress. HEAD: Normal with no signs of head trauma. EYES: PERRLA, EOMI, conjunctiva normal, no discharge. ENT: Hearing grossly intact, normal oropharynx. RESPIRATORY: Clear breath sounds bilaterally. No wheezes, rales, or rhonchi. No hypoxia. no increased work of breathing. C/V: Tachycardic. S1 and S2 auscultated, symmetrical bilateral lower extremity pitting edema, peripheral pulses 2+ and intact throughout ABD: Abd is soft, nontender, nondistended. Chronic Austin catheter in place draining somewhat cloudy urine. EXT: Normal range of motion, no obvious deformity SKIN: Erythema located over the anterior bilateral shins. Possible cellulitis.Patient has multiple decubitus ulcers on her bottom, mostly stage II. NEURO: Alert and oriented 4. No obvious acute focal neurological deficits. Course Vital Signs 12/22/22 12/22/22 12/22/22 19:17 19:26 20:22 Temperature 100.5 F H Pulse Rate 117 H 116 H 113 H Respiratory 20 20 20 Rate Blood Pressure 111/62 129/56 119/63 O2 Sat by Pulse 97 97 96 Oximetry 12/22/22 23:00 Temperature Pulse Rate 101 H Respiratory 18 Rate Blood Pressure 107/60 O2 Sat by Pulse 95 Oximetry Medical Decision Making - Medical Decision Making Was pt. sent in by a medical professional or institution (, PA, [employer] F[employer] OPERATOR HELPER, urgent care, hospital, or correction...) When possible be specific @ -No Did you speak to anyone other than the patient for history (EMS, parent, family, police, friend...)? What history was obtained from this source @ -Spoke with EMS who provided patient's history when they arrived and transferred to the emergency department. Did you review nursing and triage notes (agree or disagree)? Why? @ -I reviewed and agree with nursing and triage notes Were old charts reviewed (outside hosp., previous admission, EMS record, old EKG, old radiological studies, urgent care reports/EKG's, correction records)? Report findings @ -Old charts reviewed Differential Diagnosis (chest pain, altered mental status, abdominal pain women, abdominal pain men, vaginal bleeding, weakness, fever, dyspnea, syncope, headache, dizziness, GI bleed, back pain, seizure, CVA, palpatations, mental health, musculoskeletal)? @ -Differential Fever: Pneumonia, viral URI, endocarditis, myocarditis, pericarditis, otitis, sinusitis, peritonsillar Abscess, retropharyngeal Abscess, epiglottitis, peritonitis, appendicitis, Juju cystitis, diverticulitis, hepatitis, colitis, UTI, PID, TOA, pyelonephritis, prostatitis, epididymitis, meningitis, encephalitis, pulmonary embolism, CVA, thyroid storm, pancreatitis, adrenal crisis, cavernous sinus thrombosis, this is not meant to be an all-inclusive list. EKG interpreted by me (3pts min.). @ -As above X-rays interpreted by me (1pt min.). @ -Chest x-ray reveals findings concerning for pulmonary vascular congestion. CT interpreted by me (1pt min.). @ -None done U/S interpreted by me (1pt. min.). @ -None done What testing was considered but not performed or refused? (CT, X-rays, U/S, labs)? Why? @ -None What meds were considered but not given or refused? Why? @ -None Did you discuss the management of the patient with other professionals (prof ross i.e. , PA, [employer] OPERATOR HELPER, lab, RT, psych nurse, social work nurse, offender employment specialist, teacher, field artillery officer, leather case finisher)? Give summary @ -I discussed with the admitting physician, Dr. Pacheco who accepted the admission. Was smoking cessation discussed for >3mins.? @ -No Was critical care preformed (if so, how long)? @ -Yes, 35 minutes. Were there social determinants of health that impacted care today? How? (Homelessness, low income, unemployed, alcoholism, drug addiction, transportation, low edu. Level, literacy, decrease access to med. care, fpc, rehab)? @ -No Was there de-escalation of care discussed even if they declined (Discuss DNR or withdrawal of care, Hospice)? DNR status @ -No What co-morbidities impacted this encounter? (DM, HTN, Smoking, COPD, CAD, Cancer, CVA, ARF, Chemo, Hep., AIDS, mental health diagnosis, sleep apnea, morbid obesity)? @ -None Was patient admitted / discharged? Hospital course, mention meds given and route, prescriptions, significant lab abnormalities, going to OR and other pertinent info. @ -Based on the patient's presentation and physical exam, I'm concerned for sepsis for the patient. Presents febrile, tachycardic, hypotensive. Sepsis criteria was met upon arrival at 1920. Patient already given some IV fluids and we will administer an additional bolus but we will closely monitor her fluid intake due to her history of CHF. Therefore she may not 30 mL per KG fluid bolus. Blood cultures were obtained. We will send swab out the patient's Austin catheter and obtain a urinalysis. Patient was in agreement this plan. She will receive antipyretics. She is no other acute complaints at this time. Chest x-ray shows pulmonary vascular congestion. Laboratory studies rectal for leukocytosis of 16.5. Hemoglobin is chronically low and relatively at baseline at 10.4. Lactic acid within normal limits. BNP elevated to 902. Pulse ox negative. Urine still pending. On reevaluation come patient's vital signs are improving. She will be admitted to the hospital. Will continue broad-spectrum antibiotics. She is no longer hypotensive following fluid boluses. Patient was in agreement this plan. I spoke with Dr. Pacheco who accepted the admission. Patient admitted as a city call. Undiagnosed new problem with uncertain prognosis? @ -No Drug Therapy requiring intensive monitoring for toxicity (Heparin, Nitro, Insulin, Cardizem)? @ -No Were any procedures done? @ -No Diagnosis/symptom? @ -Sepsis, likely secondary to cellulitis her UTI Acute, or Chronic, or Acute on Chronic? @ -Acute Uncomplicated (without systemic symptoms) or Complicated (systemic symptoms)? @ -Complicated Side effects of treatment? @ -No Exacerbation, Progression, or Severe Exacerbation? @ -No Poses a threat to life or bodily function? How? (Chest pain, [place], [place], pneumonia, PE, COPD, DKA, ARF, appy, cholecystitis, CVA, Diverticulitis, Homicidal, Suicidal, threat to staff... and all critical care pts) @ -Yes - Lab Data Result diagrams: 12/22/22 19:41 12/22/22 19:41 Lab Results 12/22/22 12/22/22 12/22/22 Range/Units 19:41 19:41 19:41 WBC 16.5 H (3.8-10.6) k/uL RBC 3.89 (3.80-5.40) m/uL Hgb 10.4 L (11.4-16.0) gm/dL Hct 33.2 L (34.0-46.0) % MCV 85.3 (80.0-100.0) fL MCH 26.8 (25.0-35.0) pg MCHC 31.5 (31.0-37.0) g/dL RDW 16.4 H (11.5-15.5) % Plt Count 288 (150-450) k/uL MPV 7.8 Neutrophils % 94 % Lymphocytes % 3 % Monocytes % 3 % Eosinophils % 0 % Basophils % 0 % Neutrophils # 15.5 H (1.3-7.7) k/uL Lymphocytes # 0.5 L (1.0-4.8) k/uL Monocytes # 0.4 (0-1.0) k/uL Eosinophils # 0.0 (0-0.7) k/uL Basophils # 0.0 (0-0.2) k/uL Hypochromasia Slight Anisocytosis Slight PT 11.9 (9.0-12.0) sec INR 1.2 H (<1.2) APTT 29.3 (22.0-30.0) sec Sodium 144 (137-145) mmol/L Potassium 3.8 (3.5-5.1) mmol/L Chloride 107 (98-107) mmol/L Carbon Dioxide 24 (22-30) mmol/L Anion Gap 13 mmol/L BUN 27 H (7-17) mg/dL Creatinine 0.81 (0.52-1.04) mg/dL Est GFR (CKD-EPI)AfAm >90 (>60 ml/min/1.73 sqM) Est GFR (CKD-EPI)NonAf 85 (>60 ml/min/1.73 sqM) Glucose 148 H (74-99) mg/dL Plasma Lactic Acid Armando (0.7-2.0) mmol/L Calcium 8.9 (8.4-10.2) mg/dL Magnesium 1.7 (1.6-2.3) mg/dL Total Bilirubin 1.0 (0.2-1.3) mg/dL AST 20 (14-36) U/L ALT 22 (4-34) U/L Alkaline Phosphatase 78 (38-126) U/L NT-Pro-B Natriuret Pep 902 pg/mL Total Protein 6.7 (6.3-8.2) g/dL Albumin 3.8 (3.5-5.0) g/dL Influenza Type A (PCR) (Not Detectd) Influenza Type B (PCR) (Not Detectd) RSV (PCR) (Not Detectd) SARS-CoV-2 (PCR) (Not Detectd) 12/22/22 12/22/22 Range/Units 19:41 19:41 WBC (3.8-10.6) k/uL RBC (3.80-5.40) m/uL Hgb (11.4-16.0) gm/dL Hct (34.0-46.0) % MCV (80.0-100.0) fL MCH (25.0-35.0) pg MCHC (31.0-37.0) g/dL RDW (11.5-15.5) % Plt Count (150-450) k/uL MPV Neutrophils % % Lymphocytes % % Monocytes % % Eosinophils % % Basophils % % Neutrophils # (1.3-7.7) k/uL Lymphocytes # (1.0-4.8) k/uL Monocytes # (0-1.0) k/uL Eosinophils # (0-0.7) k/uL Basophils # (0-0.2) k/uL Hypochromasia Anisocytosis PT (9.0-12.0) sec INR (<1.2) APTT (22.0-30.0) sec Sodium (137-145) mmol/L Potassium (3.5-5.1) mmol/L Chloride (98-107) mmol/L Carbon Dioxide (22-30) mmol/L Anion Gap mmol/L BUN (7-17) mg/dL Creatinine (0.52-1.04) mg/dL Est GFR (CKD-EPI)AfAm (>60 ml/min/1.73 sqM) Est GFR (CKD-EPI)NonAf (>60 ml/min/1.73 sqM) Glucose (74-99) mg/dL Plasma Lactic Acid Armando 1.7 (0.7-2.0) mmol/L Calcium (8.4-10.2) mg/dL Magnesium (1.6-2.3) mg/dL Total Bilirubin (0.2-1.3) mg/dL AST (14-36) U/L ALT (4-34) U/L Alkaline Phosphatase (38-126) U/L NT-Pro-B Natriuret Pep pg/mL Total Protein (6.3-8.2) g/dL Albumin (3.5-5.0) g/dL Influenza Type A (PCR) Not Detected (Not Detectd) Influenza Type B (PCR) Not Detected (Not Detectd) RSV (PCR) Not Detected (Not Detectd) SARS-CoV-2 (PCR) Not Detected (Not Detectd) - EKG Data -: EKG Interpreted by Me EKG Comments: 12-lead Electrocardiogram Interpretation Note EKG was reviewed and interpreted by myself. 12-lead ECG performed at 1934 is interpreted by me as revealing sinus tachycardia at a rate of 115 beats per minute. [place] is normal. DC interval is 191 ms, QRS ration is 103 ms, QTc is 387 ms.. There were no ST or T wave abnormalities to suggest myocardial ischemia or injury. R wave progression across the precordium was satisfactory. By my interpretation this EKG is non-diagnostic for acute ischemia. Critical Care Time Critical Care Time: Yes Total Critical Care Time: 35 Disposition Clinical Impression: Sepsis, Cellulitis Disposition: ADMITTED IP TO THIS HOSP Condition: Stable Time of Disposition: 21:29
[2022-12-23 02:52] LABS: Amorphous Sediment,Urine Rare /hpf; Appearance,Urine Cloudy (Clear); Bacteria,Urine Many /hpf; Bilirubin,Urine Negative (Negative); Blood,Urine Large (Negative); Color,Urine Yellow; Glucose,Urine (UA) Negative (Negative); Ketones,Urine 1+ (Negative); Leukocyte Esterase,Urine Large (Negative); Mucus,Urine Rare /hpf; Nitrite,Urine Negative (Negative); PH, Urine 5.5 (5.0-8.0); Protein,Urine 2+ (Negative); RBC,Urine 21 /hpf (0-5); Specific Gravity,Urine 1.025 (1.001-1.035); Squamous Epithelial Cell,Urine 4 /hpf (0-4); Urobilinogen,Urine <2.0 mg/dL (<2.0); WBC,Urine >182 /hpf (0-5)
[2022-12-23] MEDS ORDERED: NON FORMULARY DRUG (Acetaminophen [Tylenol 8 Hour] 650 MG Tablet) PO PRN (02:56)
--- NOTE | 2022-12-23 03:04 | P.HPIM ---
History of Present Illness H&P Date: 12/22/22 Chief Complaint: Fever 52-year-old female nursing facility resident due to severe MS She comes in after spiking a fever at the [facility] facility and while found to be hypotensive for which she was sent to the hospital. Patient is alert reports no headache no changes in vision or hearing no nausea vomiting no difficulty speaking denies any chest pain trouble breathing denies any cough sore throat runny nose denies any known sick contact denies any abdominal pain nausea vomiting denies any diarrhea. She is concerned that she has a UTI as she has chronic indwelling catheter and history of recurrent urinary tract infections. She also noticed increased redness over her right lower extremity with some discomfort to the touch concerns regarding a cellulitis review of systems Pertinent positives as noted in HPI. All other systems were reviewed and are negative on exam Constitutional: No acute distress, conversant, pleasant Eyes: Anicteric sclerae, moist conjunctiva, Pupils equal round reactive to light ENMT: NC/AT Oropharynx clear, no erythema, or exudates Neck: Supple, no masses, or JVD No carotid bruits No thyromegaly Lungs: Clear to auscultation Clear to percussion Normal respiratory effort, no accessory muscle use Cardiovascular: Heart regular in rate and rhythm, No murmurs, gallops, or rubs +1 bilateral peripheral edema Abdominal: Soft Nontender, no guarding, rebound or rigidity Abdomen moving with respiration Normoactive bowel sounds No hepatomegaly, No splenomegaly No palpable mass No abdominal wall hernia noted Skin: Diffuse erythema over the right lower extremity mainly over the right leg and to lesser extent the right thigh with slight discomfort to palpation and warmth to the touch Extremities: Patient has contractions over the left upper extremity No digital cyanosis No clubbing Pedal pulses intact and symmetrical Radial pulses intact and symmetrical No calf tenderness Psychiatric: Alert and oriented to person, place Neuro Muscles Strength 5/5 in right upper extremity. She has contractions over the left upper extremity and weakness over bilateral lower extremity 2-3 out of 5 Sensation to light touch grossly present throughout Cranial nerves II-XII grossly intact Lymphatics: no palpable cervical or supraclavicular lymph nodes Past Medical History Past Medical History: Hyperlipidemia, Musculoskeletal Disorder, Neurologic Disorder, Pneumonia, Renal Disease, Skin Disorder Additional Past Medical History / Comment(s): Multiple sclerosis stage IV- wheelchair bound, L side weaker than right, past renal failure with hemodialysis-last time was July 2016, neurogenic bladder with indwelling austin, past sepsis, iron deficiency anemia, wounds present on bilateral gluteal folds and sacral area History of Any Multi-Drug Resistant Organisms: ESBL, MRSA, VRE Date of last positivie culture/infection: 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;03/08/20 MRSA; ESBL 08/27/17 MDRO Source:: Urine-VRE; Buttock MRSA; ESBL-Urine Past Surgical History: No Surgical Hx Reported Additional Past Surgical History / Comment(s): LP, debridement decubitus sacral ulcer, hemodialysis cath since removed, picc lines Past Anesthesia/Blood Transfusion Reactions: No Reported Reaction Additional Past Anesthesia/Blood Transfusion Reaction / Comment(s): NEVER HAD ANY GENERAL ANES Past Psychological History: No Psychological Hx Reported Smoking Status: Never smoker Past Alcohol Use History: None Reported Past Drug Use History: None Reported - Past Family History Father History Unknown: Yes Additional Family Medical History / Comment(s): PTS DAD LIVED IN [place]- SHE'S NOT SURE WHAT HE FROM. HE HAD HYPOTENSION. Mother Family Medical History: Coronary Artery Disease (CAD), Diabetes Mellitus, Hyperlipidemia, Hypertension Additional Family Medical History / Comment(s): CARDIAC STENTS Medications and Allergies Home Medications Medication Instructions Recorded Confirmed Type Folic Acid 1 mg PO DAILY 08/22/16 12/22/22 History Potassium Chloride ER [K-Dur 20] 20 meq PO BID 01/12/19 12/22/22 History Aspirin 81 mg PO DAILY 09/15/19 12/22/22 History Sennosides [Senna] 8.6 mg PO BID 01/31/20 12/22/22 History Acetaminophen [Tylenol 8 Hour] 650 mg PO Q6H PRN 09/22/21 12/22/22 History Atorvastatin [Lipitor] 10 mg PO HS@199909/22/21 12/22/22 History Diroximel Fumarate [Vumerity] 462 mg PO BID 09/22/21 12/22/22 History Levothyroxine Sodium [Synthroid] 75 mcg PO DAILY@199909/22/21 12/22/22 History Omeprazole 20 mg PO DAILY 10/17/21 12/22/22 History Ascorbic Acid [Vitamin C] 500 mg PO DAILY 05/14/22 12/22/22 History Furosemide [Lasix] 20 mg PO DAILY 05/14/22 12/22/22 History Gabapentin [Neurontin] 300 mg PO BID 05/14/22 12/22/22 History HYDROcodone/APAP 5-325MG [Berry 1 tab PO QID@07,13,19,23 05/14/22 12/22/22 History 5-325] Pro-Stat Liquid (Amino 30 ml PO TID@0700,1100,1600 05/14/22 12/22/22 History Acids-Protein Hydrolysate) Acetaminophen Suppository [Tylenol 650 mg RECTAL ONCE 12/22/22 12/22/22 History Suppository] Baclofen 10 mg PO TID@0700,1300,1900 12/22/22 12/22/22 History Multivitamins, Thera [Multivitamin 1 tab PO DAILY@0700 12/22/22 12/22/22 History (formulary)] Promethazine HCl 12.5 mg PO Q6H PRN 12/22/22 12/22/22 History cefTRIAXone [Rocephin] 1 gm IM Q24H 12/22/22 12/22/22 History Allergies Allergy/AdvReac Type Severity Reaction Status Date / Time adhesive tape Allergy Rash/Hives Verified 12/22/22 21:09 cinnamon Allergy Rash/Hives Verified 12/22/22 21:09 Physical Exam Vitals: Vital Signs Temp Pulse Resp BP Pulse Ox 12/23/22 01:00 99.3 F 97 18 97/53 96 12/22/22 23:00 101 H 18 107/60 95 12/22/22 20:22 113 H 20 119/63 96 12/22/22 19:26 116 H 20 129/56 97 12/22/22 19:17 100.5 F H 117 H 20 111/62 97 Intake and Output 12/22/22 12/22/22 12/23/22 14:59 22:59 06:59 Other: Weight 99.79 kg Results CBC & Chem 7: 12/22/22 19:41 12/22/22 19:41 Labs: Abnormal Lab Results - Last 24 Hours (Table) 12/22/22 12/22/22 12/22/22 Range/Units 19:41 19:41 19:41 WBC 16.5 H (3.8-10.6) k/uL Hgb 10.4 L (11.4-16.0) gm/dL Hct 33.2 L (34.0-46.0) % RDW 16.4 H (11.5-15.5) % Neutrophils # 15.5 H (1.3-7.7) k/uL Lymphocytes # 0.5 L (1.0-4.8) k/uL INR 1.2 H (<1.2) BUN 27 H (7-17) mg/dL Glucose 148 H (74-99) mg/dL Urine Appearance (Clear) Urine Protein (Negative) Urine Ketones (Negative) Urine Blood (Negative) Ur Leukocyte Esterase (Negative) Urine RBC (0-5) /hpf Urine WBC (0-5) /hpf Amorphous Sediment (None) /hpf Urine Bacteria (None) /hpf Urine Mucus (None) /hpf 12/23/22 Range/Units 01:49 WBC (3.8-10.6) k/uL Hgb (11.4-16.0) gm/dL Hct (34.0-46.0) % RDW (11.5-15.5) % Neutrophils # (1.3-7.7) k/uL Lymphocytes # (1.0-4.8) k/uL INR (<1.2) BUN (7-17) mg/dL Glucose (74-99) mg/dL Urine Appearance Cloudy H (Clear) Urine Protein 2+ H (Negative) Urine Ketones 1+ H (Negative) Urine Blood Large H (Negative) Ur Leukocyte Esterase Large H (Negative) Urine RBC 21 H (0-5) /hpf Urine WBC >182 H (0-5) /hpf Amorphous Sediment Rare H (None) /hpf Urine Bacteria Many H (None) /hpf Urine Mucus Rare H (None) /hpf Assessment and Plan Assessment: 52-year-old female with severe advanced MS currently is a [facility] resident coming in for fever and hypotension concerned regarding UTI discussed the case with the ED doctor I accepted the admission for sepsis secondary to complex urinary tract infection due to chronic indwelling Austin catheter with anticipated length of stay more than 2 midnights Sepsis secondary to complex UTI due to chronic indwelling Austin catheter, cellulitis right lower extremity Follow-up cultures Replace Austin catheter Tylenol for fever Continue with cefepime still grams IV piggyback every 8 hours Continue with vancomycin dosing by pharmacy Continue with Berry for pain control White count 16.5 Acute respiratory viral panel negative for Covid, influenza, RSV Renal function unremarkable sodium 144 potassium 3.8 BUN 27 creatinine 0.8 Hypotension Status post 1 L bolus normal saline Continue with normal saline at 1 30 mL per hour Monitor vital signs Chronic anemia hemoglobin 10.4 Denies GI bleeding Continue to monitor hemoglobin Severe MS, chronic Continue with baclofen as needed for spasticity Hypothyroid Continue with levothyroxine Full code DVT prophylaxis heparin subcu 3 times a day
[2022-12-23] MEDS: CEFEPIME 2 GM in SODIUM CHLORIDE 0.9% 100 ML IVPB SCH ×2 (03:33→15:28)
[2022-12-23] MEDS: PANTOPRAZOLE 40 MG TABLET PO SCH (06:40)
[2022-12-23 08:10] LABS: Anisocytosis Slight; Basophils % (A) 0 %; Eosinophils % (A) 0 %; HCT 35.7 % (34.0-46.0); HGB 11.4 gm/dL (11.4-16.0); Hypochromasia Moderate; Lymphocytes # (A) 0.5 k/uL (1.0-4.8); Lymphocytes % (A) 5 %; MCH 27.5 pg (25.0-35.0); MCHC 31.9 g/dL (31.0-37.0); MCV 86.1 fL (80.0-100.0); Mean Platelet Volume 7.7; Monocytes # (A) 0.4 k/uL (0-1.0); Monocytes % (A) 3 %; Neutrophils # (A) 9.7 k/uL (1.3-7.7); Neutrophils % (A) 91 %; Platelet Count 261 k/uL (150-450); RBC 4.14 m/uL (3.80-5.40); RDW 16.3 % (11.5-15.5); WBC 10.7 k/uL (3.8-10.6)
[2022-12-23 08:35] LABS: African American GFR (CKD) >90 (>60 ml/min/1.73 sqM); Anion Gap 16 mmol/L; Blood Urea Nitrogen 31 mg/dL (7-17); Calcium 9.2 mg/dL (8.4-10.2); Carbon Dioxide 22 mmol/L (22-30); Chloride 109 mmol/L (98-107); Glucose 101 mg/dL (74-99); Non-African American GFR(CKD) 80 (>60 ml/min/1.73 sqM); Potassium 3.8 mmol/L (3.5-5.1); Sodium 147 mmol/L (137-145)
[2022-12-23] MEDS: HYDROcodone/APAP 5-325MG 1 EACH TAB PO SCH ×4 (09:27→22:36)
[2022-12-23] MEDS: GABAPENTIN 300 MG CAP PO SCH ×2 (09:28→22:37)
[2022-12-23] MEDS: BACLOFEN 10 MG TAB PO SCH ×3 (09:28→22:36)
[2022-12-23] MEDS: ASPIRIN 81 MG PO SCH (09:28)
[2022-12-23] MEDS: HEPARIN SODIUM,PORCINE 5,000 UNIT/ML 1 ML VIAL SQ SCH ×2 (09:29→18:30)
--- NOTE | 2022-12-23 14:28 | P.PN ---
Subjective Progress Note Date: 12/23/22 Hospital Course: 52-year-old female nursing facility resident with a history of MS, chronic indwelling Chaves catheter presenting with fever and lower extremity redness. In the ED, she was febrile, tachycardic, rest of the vital signs were otherwise within normal limits. WBC 16.5, hemoglobin 10.4, creatinine 0.81, negative respiratory viral panel, large leukocyte esterase, negative nitrites. She was given IV fluids, started on vancomycin and cefepime in the ED. Patient admitted for sepsis secondary to urinary tract infection setting of chronic indwelling Chaves catheter and lower extremity right cellulitis. Subjective: Patient seen and examined at bedside. No acute events overnight. Denies any pain in her right lower extremity but does claim that it is more red than usual. She is unsure if it is more swollen than usual. Indwelling Chaves in place Pertinent positives and negatives as discussed above, a complete review of systems was performed and all other systems are negative. Vitals Signs Reviewed. General: nontoxic, no distress, appears at stated age Derm: warm, dry, bilateral dawkins and thigh erythema, more pronounced on the right side with slight warmth Head: atraumatic, normocephalic, symmetric Eyes: EOMI, no lid lag, anicteric sclera Mouth: no lip lesion, mucus membranes moist Cardiovascular: S1S2 reg, no murmur Lungs: CTA bilateral, no rhonchi, no rales , no accessory muscle use Abdominal: soft, nontender to palpation, no guarding, no appreciable organomegaly Ext: Muscles Strength 5/5 in right upper extremity. She has contractions over the left upper extremity and weakness over bilateral lower extremity 2-3 out of 5 Neuro: CN II-XI grossly intact Psych: Alert, oriented, appropriate affect Data Reviewed Today: Pertinent Labs: WBC 10.7, hemoglobin 11.4, sodium 147, creatinine 0.85 Imaging: No new imaging Assessment and Plan: Sepsis secondary to complex UTI due to chronic indwelling Chaves catheter, cellulitis right lower extremity -Patient has grown MDRO in the past -currently on cefepime and vancomycin, monitor renal function -urine culture and blood culture pending - ID consulted - repeat CBC and BMP tomorrow Hypotension, resolved -Status post 1 L bolus normal saline -Continue with normal saline at 1 30 mL per hour -hold lasix Chronic: Chronic anemia, hemoglobin within normal limits Severe MS, not in exacerbation Hypothyroid Dyslipidemia DVT ppx: Subcu heparin Code status: Full Code Anticipated discharge place: back to nursing facility Anticipated discharge time: pending clinical course Objective - Vital Signs Vital signs: Vital Signs Temp 98.6 F 12/23/22 08:29 Pulse 101 H 12/23/22 09:26 Resp 18 12/23/22 09:26 BP 109/47 12/23/22 09:26 Pulse Ox 95 12/23/22 09:26 FiO2 Intake & Output 12/22/22 12/23/22 12/23/22 18:59 06:59 18:59 Weight 99.79 kg - Labs CBC & Chem 7: 12/23/22 06:31 12/23/22 06:31 Labs: Abnormal Lab Results - Last 24 Hours (Table) 12/22/22 12/22/22 12/22/22 Range/Units 19:41 19:41 19:41 WBC 16.5 H (3.8-10.6) k/uL Hgb 10.4 L (11.4-16.0) gm/dL Hct 33.2 L (34.0-46.0) % RDW 16.4 H (11.5-15.5) % Neutrophils # 15.5 H (1.3-7.7) k/uL Lymphocytes # 0.5 L (1.0-4.8) k/uL INR 1.2 H (<1.2) Sodium (137-145) mmol/L Chloride (98-107) mmol/L BUN 27 H (7-17) mg/dL Glucose 148 H (74-99) mg/dL Urine Appearance (Clear) Urine Protein (Negative) Urine Ketones (Negative) Urine Blood (Negative) Ur Leukocyte Esterase (Negative) Urine RBC (0-5) /hpf Urine WBC (0-5) /hpf Amorphous Sediment (None) /hpf Urine Bacteria (None) /hpf Urine Mucus (None) /hpf 12/23/22 12/23/22 12/23/22 Range/Units 01:49 06:31 06:31 WBC 10.7 H (3.8-10.6) k/uL Hgb (11.4-16.0) gm/dL Hct (34.0-46.0) % RDW 16.3 H (11.5-15.5) % Neutrophils # 9.7 H (1.3-7.7) k/uL Lymphocytes # 0.5 L (1.0-4.8) k/uL INR (<1.2) Sodium 147 H (137-145) mmol/L Chloride 109 H (98-107) mmol/L BUN 31 H (7-17) mg/dL Glucose 101 H (74-99) mg/dL Urine Appearance Cloudy H (Clear) Urine Protein 2+ H (Negative) Urine Ketones 1+ H (Negative) Urine Blood Large H (Negative) Ur Leukocyte Esterase Large H (Negative) Urine RBC 21 H (0-5) /hpf Urine WBC >182 H (0-5) /hpf Amorphous Sediment Rare H (None) /hpf Urine Bacteria Many H (None) /hpf Urine Mucus Rare H (None) /hpf
[2022-12-23] MEDS: VANCOMYCIN 1,500 MG in SODIUM CHLORIDE 0.9% 500 ML 500 ML IVPB SCH (15:29)
[2022-12-23] MEDS: ATORVASTATIN 10 MG TAB PO SCH (22:36)
[2022-12-23] MEDS: LEVOTHYROXINE 75 MCG TAB PO SCH (22:36)
[2022-12-23] MEDS: DIROXIMEL FUMARATE 231 MG PO SCH (22:38)
--- NOTE | 2022-12-23 23:00 | P.CONS ---
History of Present Illness - Reason for Consult Consult date: 12/23/22 Sepsis secondary to UTI and cellulitis Requesting physician: Carlos Perrin - Chief Complaint fever 1 day - History of Present Illness Patient is a 52-year-old female with a past medical history significant for MS and [place] [facility] resident history of urinary retention requiring chronic indwelling [place] catheter and history of recurrent UTIs also have a history of sacral and bilateral posterior gluteal pressure ulcer and history of osteomyelitis patient was sent to the [facility] ER last night from the [place] [facility] with concern for a fever apparently the patient did have fever for about a day and was not feeling well patient denies having any he adache or URI symptoms no chest pain no shortness of breath or cough no nausea no vomiting no abdominal pain no diarrhea patient on presentation to the hospital did have a fever 100.5 F patient was tachycardic and hypotensive requiring fluid bolus and did have a white count of 16.5 creatinine was normal liver enzymes are normal did have a positive UA influenza RSV and COVID testing was negative patient did have a chest x-ray lung volumes and cardiomegaly with central venous congestion patient also noticed to have increasing swelling redness right lower extremity patient denies significant pain to the right leg mostly discomfort with associated swelling and redness did not have any open wound to the right leg patient denies having any pain to her sacral wound which apparently are healing well with no drainage patient has been diagnosed with sepsis source possible UTI versus cellulitis she was started on cefepime and vancomycin infectious disease was consulted today for further management of antibiotic therapy Review of Systems Positive point and negatives has been mentioned in the HPI, complete review of systems was performed and all other systems are negative Past Medical History Past Medical History: Hyperlipidemia, Musculoskeletal Disorder, Neurologic Disorder, Pneumonia, Renal Disease, Skin Disorder Additional Past Medical History / Comment(s): Multiple sclerosis stage IV-wheelc hair bound, L side weaker than right, past renal failure with hemodialysis-last time was July 2016, neurogenic bladder with indwelling [place], past sepsis, iron deficiency anemia, wounds present on bilateral gluteal folds and sacral area History of Any Multi-Drug Resistant Organisms: ESBL, MRSA, VRE Year Discovered:: 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;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 MRSA; ESBL 08/27/17 MDRO Source:: Urine-VRE; Buttock MRSA; ESBL-Urine Past Surgical History: No Surgical Hx Reported Additional Past Surgical History / Comment(s): LP, debridement decubitus sacral ulcer, hemodialysis cath since removed, picc lines Past Anesthesia/Blood Transfusion Reactions: No Reported Reaction Additional Past Anesthesia/Blood Transfusion Reaction / Comm: NEVER HAD ANY GENERAL ANES Past Psychological History: No Psychological Hx Reported Smoking Status: Never smoker Past Alcohol Use History: None Reported Past Drug Use History: None Reported - Past Family History Father History Unknown: Yes Additional Family Medical History / Comment(s): PTS DAD LIVED IN [place]- SHE'S NOT SURE WHAT HE FROM. HE HAD HYPOTENSION. Mother Family Medical History: Coronary Artery Disease (CAD), Diabetes Mellitus, Hyperlipidemia, Hypertension Additional Family Medical History / Comment(s): CARDIAC STENTS Medications and Allergies Home Medications Medication Instructions Recorded Confirmed Type Folic Acid 1 mg PO DAILY 08/22/16 12/22/22 History Potassium Chloride ER [K-Dur 20] 20 meq PO BID 01/12/19 12/22/22 History Aspirin 81 mg PO DAILY 09/15/19 12/22/22 History Sennosides [Senna] 8.6 mg PO BID 01/31/20 12/22/22 History Acetaminophen [Tylenol 8 Hour] 650 mg PO Q6H PRN 09/22/21 12/22/22 History Atorvastatin [Lipitor] 10 mg PO HS@199909/22/21 12/22/22 History Diroximel Fumarate [Vumerity] 462 mg PO BID 09/22/21 12/22/22 History Levothyroxine Sodium [Synthroid] 75 mcg PO DAILY@199909/22/21 12/22/22 History Omeprazole 20 mg PO DAILY 10/17/21 12/22/22 History Ascorbic Acid [Vitamin C] 500 mg PO DAILY 05/14/22 12/22/22 History Furosemide [Lasix] 20 mg PO DAILY 05/14/22 12/22/22 History Gabapentin [Neurontin] 300 mg PO BID 05/14/22 12/22/22 History HYDROcodone/APAP 5-325MG [[place] 1 tab PO QID@07,13,19,23 05/14/22 12/22/22 History 5-325] Pro-Stat Liquid (Amino 30 ml PO TID@0700,1100,1600 05/14/22 12/22/22 History Acids-Protein Hydrolysate) Acetaminophen Suppository [Tylenol 650 mg RECTAL ONCE 12/22/22 12/22/22 History Suppository] Baclofen 10 mg PO TID@0700,1300,1900 12/22/22 12/22/22 History Multivitamins, Thera [Multivitamin 1 tab PO DAILY@0700 12/22/22 12/22/22 History (formulary)] Promethazine HCl 12.5 mg PO Q6H PRN 12/22/22 12/22/22 History cefTRIAXone [Rocephin] 1 gm IM Q24H 12/22/22 12/22/22 History Allergies Allergy/AdvReac Type Severity Reaction Status Date / Time adhesive tape Allergy Rash/Hives Verified 12/22/22 21:09 cinnamon Allergy Rash/Hives Verified 12/22/22 21:09 Physical Exam Vitals: Vital Signs Temp Pulse Resp BP Pulse Ox 12/23/22 15:39 99 F 100 18 96/56 99 12/23/22 09:26 101 H 18 109/47 95 12/23/22 08:29 98.6 F 104 H 18 112/49 100 12/23/22 06:00 99.8 F H 92 18 103/87 95 12/23/22 04:00 92 18 108/70 95 12/23/22 03:00 99 18 123/64 95 12/23/22 02:00 96 18 100/49 95 12/23/22 01:00 99.3 F 97 18 97/53 96 12/22/22 23:00 101 H 18 107/60 95 12/22/22 20:22 113 H 20 119/63 96 12/22/22 19:26 116 H 20 129/56 97 12/22/22 19:17 100.5 F H 117 H 20 111/62 97 GENERAL DESCRIPTION: Middle-aged female lying in bed, no distress. No tachypnea or accessory muscle of respiration use. HEENT: Shows Pallor , no scleral icterus. Oral mucous membrane is dry. No pharyngeal erythema or thrush NECK: Trachea central, no thyromegaly. LUNGS: Unlabored breathing. Clear to auscultation anteriorly. No wheeze or crackle. HEART: S1, S2, regular rate and rhythm. No loud murmur ABDOMEN: Soft, no tenderness , guarding or rigidity, no organomegaly EXTREMITIES: Diffuse swelling redness of right lower extremity SKIN: No rash, no masses palpable. Patient did have a stage III sacral pressure ulcer but no cellulitis NEUROLOGICAL: The patient is awake, alert, oriented x3, mood and affect normal. Results CBC & Chem 7: 12/23/22 06:31 12/25/22 05:42 Labs: Abnormal Lab Results - Last 24 Hours (Table) 12/22/22 12/22/22 12/22/22 Range/Units 19:41 19:41 19:41 WBC 16.5 H (3.8-10.6) k/uL Hgb 10.4 L (11.4-16.0) gm/dL Hct 33.2 L (34.0-46.0) % RDW 16.4 H (11.5-15.5) % Neutrophils # 15.5 H (1.3-7.7) k/uL Lymphocytes # 0.5 L (1.0-4.8) k/uL INR 1.2 H (<1.2) Sodium (137-145) mmol/L Chloride (98-107) mmol/L BUN 27 H (7-17) mg/dL Glucose 148 H (74-99) mg/dL Urine Appearance (Clear) Urine Protein (Negative) Urine Ketones (Negative) Urine Blood (Negative) Ur Leukocyte Esterase (Negative) Urine RBC (0-5) /hpf Urine WBC (0-5) /hpf Amorphous Sediment (None) /hpf Urine Bacteria (None) /hpf Urine Mucus (None) /hpf 12/23/22 12/23/22 12/23/22 Range/Units 01:49 06:31 06:31 WBC 10.7 H (3.8-10.6) k/uL Hgb (11.4-16.0) gm/dL Hct (34.0-46.0) % RDW 16.3 H (11.5-15.5) % Neutrophils # 9.7 H (1.3-7.7) k/uL Lymphocytes # 0.5 L (1.0-4.8) k/uL INR (<1.2) Sodium 147 H (137-145) mmol/L Chloride 109 H (98-107) mmol/L BUN 31 H (7-17) mg/dL Glucose 101 H (74-99) mg/dL Urine Appearance Cloudy H (Clear) Urine Protein 2+ H (Negative) Urine Ketones 1+ H (Negative) Urine Blood Large H (Negative) Ur Leukocyte Esterase Large H (Negative) Urine RBC 21 H (0-5) /hpf Urine WBC >182 H (0-5) /hpf Amorphous Sediment Rare H (None) /hpf Urine Bacteria Many H (None) /hpf Urine Mucus Rare H (None) /hpf Assessment and Plan (1) Cellulitis of right leg Current Visit: Yes Status: Acute Code(s): L03.115 - CELLULITIS OF RIGHT LOWER LIMB SNOMED Code(s): 39415605647369237 (2) Sepsis Current Visit: Yes Status: Acute Code(s): A41.9 - SEPSIS, UNSPECIFIED ORGANISM SNOMED Code(s): 71169325 (3) Urinary tract infection Current Visit: No Status: Acute Code(s): N39.0 - URINARY TRACT INFECTION, SITE NOT SPECIFIED SNOMED Code(s): 71089109 Plan: 1patient presented to hospital with sepsis in this patient with a fever tachycardia hypotension elevated white count source is likely catheter since UTI also concern for the right lower extremity cellulitis being a [place] [facility] resident we will need to cover for resistant gram-positive as well as gram-nega tive pathogen 2-[place] catheter has been changed will obtain urine culture from new [place] 3-marked area of the redness right lower extremity 4-patient did have a stage III sacral pressure ulcer but no evidence of any cellulitis and not likely the source of the sepsis, local wound care with dry Aquacel silver dressing keep the area dry and of the pressure 5-patient to continue cefepime and vancomycin while waiting for the culture to finalize We will follow on clinical condition and cultures to further adjust medication if needed Thank you for this consultation we will follow the patient along with you Dictation was produced using [employer] dictation software. please excuse any grammatical, word or spelling errors. Time with Patient: Greater than 30
[2022-12-24] MEDS: CEFEPIME 2 GM in SODIUM CHLORIDE 0.9% 100 ML IVPB SCH ×3 (00:48→16:08)
[2022-12-24] MEDS: HEPARIN SODIUM,PORCINE 5,000 UNIT/ML 1 ML VIAL SQ SCH ×3 (00:49→16:08)
[2022-12-24] MEDS: MULTIVITAMINS, THERA 1 EACH TAB PO SCH (06:14)
[2022-12-24] MEDS: VANCOMYCIN 1,500 MG in SODIUM CHLORIDE 0.9% 500 ML 500 ML IVPB SCH ×2 (06:14→21:44)
[2022-12-24] MEDS: PANTOPRAZOLE 40 MG TABLET PO SCH (06:15)
[2022-12-24 07:05] LABS: African American GFR (CKD) >90 (>60 ml/min/1.73 sqM); Non-African American GFR(CKD) >90 (>60 ml/min/1.73 sqM)
[2022-12-24 09:02] LABS: Anion Gap 14 mmol/L; Blood Urea Nitrogen 25 mg/dL (7-17); Calcium 8.8 mg/dL (8.4-10.2); Carbon Dioxide 19 mmol/L (22-30); Chloride 111 mmol/L (98-107); Glucose 104 mg/dL (74-99); Sodium 144 mmol/L (137-145)
[2022-12-24 09:19] LABS: Potassium 3.8 mmol/L (3.5-5.1)
[2022-12-24] MEDS: ASPIRIN 81 MG PO SCH (11:41)
[2022-12-24] MEDS: GABAPENTIN 300 MG CAP PO SCH ×2 (11:41→21:43)
[2022-12-24] MEDS: BACLOFEN 10 MG TAB PO SCH ×3 (11:41→22:16)
[2022-12-24] MEDS: ASCORBIC ACID 500 MG TAB PO SCH (11:41)
[2022-12-24] MEDS: FOLIC ACID 1 MG TAB PO SCH (11:42)
[2022-12-24] MEDS: DIROXIMEL FUMARATE 231 MG PO SCH ×2 (11:42→22:12)
[2022-12-24] MEDS: HYDROcodone/APAP 5-325MG 1 EACH TAB PO SCH ×4 (11:42→21:41)
--- NOTE | 2022-12-24 15:03 | P.PN ---
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 On today's evaluation that is12/24/2022, the patient remains to be afebrile, the patient is breathing comfortably on room air , the patient denies chest pain shortness of breath or cough, patient denies nausea/vomiting /diarrhea and no abdominal pain , the patient had right lower extremity swelling redness slightly decreased Patient white count down to 10.7 as of yesterday no CBC was done today, creatinine 0.73, cultures are currently pending Objective - Vital Signs Vital signs: Vital Signs Temp 98.4 F 12/24/22 07:09 Pulse 89 12/24/22 07:09 Resp 18 12/24/22 07:09 BP 107/73 12/24/22 07:09 Pulse Ox 96 12/24/22 07:09 FiO2 Intake & Output 12/23/22 12/24/22 12/24/22 18:59 06:59 18:59 Output Total 400 Balance -400 Weight 99.79 kg Output: Urine 400 Other: Voiding Method Indwelling Catheter - Exam GENERAL DESCRIPTION: Middle-aged female lying in bed in no distress RESPIRATORY SYSTEM: Unlabored breathing , decreased breath sounds at bases HEART: S1 S2 regular rate and rhythm , ABDOMEN: Soft , no tenderness EXTREMITIES: Right leg redness has slightly decreased - Labs CBC & Chem 7: 12/23/22 06:31 12/24/22 06:36 Labs: Abnormal Lab Results - Last 24 Hours (Table) 12/24/22 Range/Units 06:36 Chloride 111 H (98-107) mmol/L Carbon Dioxide 19 L (22-30) mmol/L BUN 25 H (7-17) mg/dL Glucose 104 H (74-99) mg/dL Microbiology - Last 24 Hours (Table) 12/23/22 01:49 Urine Culture - Final Urine,Voided 12/22/22 19:30 Blood Culture - Preliminary Blood 12/22/22 19:45 Blood Culture - Preliminary Blood Assessment and Plan (1) Cellulitis of right leg Current Visit: Yes Status: Acute Code(s): L03.115 - CELLULITIS OF RIGHT LOWER LIMB SNOMED Code(s): 04410437738774256 (2) Sepsis Current Visit: Yes Status: Acute Code(s): A41.9 - SEPSIS, UNSPECIFIED ORGANISM SNOMED Code(s): 13263792 (3) Decubitus ulcer Current Visit: No Status: Acute Code(s): L89.90 - PRESSURE ULCER OF UNSPECIFIED SITE, UNSPECIFIED STAGE SNOMED Code(s): 6861024632 (4) Urinary tract infection Current Visit: No Status: Acute Code(s): N39.0 - URINARY TRACT INFECTION, SITE NOT SPECIFIED SNOMED Code(s): 82573082 Plan: 1patient presented to hospital with sepsis in this patient with a fever t achycardia hypotension elevated white count source is likely catheter since UTI also concern for the right lower extremity cellulitis being a prison resident we will need to cover for resistant gram-positive as well as gram- negative pathogen 2-Chaves catheter has been changed and urine cultures currently pending 3--patient did have a stage III sacral pressure ulcer but no evidence of any cellulitis and not likely the source of the sepsis, local wound care with dry Aquacel silver dressing keep the area dry and of the pressure 4-patient to continue cefepime and vancomycin while waiting for the culture to finalize to determine her discharge antibiotics Dictation was produced using [employer] dictation software. please excuse any grammatical, word or spelling errors. Time with Patient: Less than 30
[2022-12-24 15:26] VITALS: BMI 38.9
--- NOTE | 2022-12-24 16:22 | P.PN ---
Subjective Progress Note Date: 12/24/22 Hospital Course: 52-year-old female nursing facility resident with a history of MS, chronic indwelling Chaves catheter presenting with fever and lower extremity redness. In the ED, she was febrile, tachycardic, rest of the vital signs were otherwise within normal limits. WBC 16.5, hemoglobin 10.4, creatinine 0.81, negative respiratory viral panel, large leukocyte esterase, negative nitrites. She was given IV fluids, started on vancomycin and cefepime in the ED. Patient admitted for sepsis secondary to urinary tract infection setting of chronic indwelling Chaves catheter and lower extremity right cellulitis. ID consulted. Currently on vancomycin and cefepime. Subjective: Patient seen and examined at bedside. No acute events overnight. Chaves catheter in place. Pertinent positives and negatives as discussed above, a complete review of systems was performed and all other systems are negative. Vitals Signs Reviewed. General: nontoxic, no distress, appears at stated age Derm: warm, dry, bilateral dawkins and thigh erythema, more pronounced on the right side with slight warmth Head: atraumatic, normocephalic, symmetric Eyes: EOMI, no lid lag, anicteric sclera Mouth: no lip lesion, mucus membranes moist Cardiovascular: S1S2 reg, no murmur Lungs: CTA bilateral, no rhonchi, no rales , no accessory muscle use Abdominal: soft, nontender to palpation, no guarding, no appreciable organomegaly Ext: Muscles Strength 5/5 in right upper extremity. She has contractions over the left upper extremity and weakness over bilateral lower extremity 2-3 out of 5 Neuro: CN II-XI grossly intact Psych: Alert, oriented, appropriate affect Data Reviewed Today: Pertinent Labs: WBC potassium 3.8, creatinine 0.73 Imaging: No new imaging Assessment and Plan: Sepsis secondary to complex UTI due to chronic indwelling Chaves catheter, cellulitis right lower extremity -Patient has grown MDRO in the past -Urine cultures negative so far -currently on cefepime and vancomycin, monitor renal function -Blood cultures negative growth to date -ID note reviewed, continue antibiotics - repeat CBC and BMP tomorrow Hypotension, resolved -Status post 1 L bolus normal saline -Encourage oral intake -hold lasix Stage III decubitus sacral ulcer, present on admission -Unlikely to be source of infection -Local wound care Chronic: Chronic anemia, hemoglobin within normal limits Severe MS, not in exacerbation Hypothyroid Dyslipidemia DVT ppx: Subcu heparin Code status: Full Code Anticipated discharge place: back to nursing facility Anticipated discharge time: pending clinical course Objective - Vital Signs Vital signs: Vital Signs Temp 98.4 F 12/24/22 14:00 Pulse 98 12/24/22 14:00 Resp 18 12/24/22 14:00 BP 113/76 12/24/22 14:00 Pulse Ox 98 12/24/22 14:00 FiO2 Intake & Output 12/23/22 12/24/22 12/24/22 18:59 06:59 18:59 Intake Total 300 Output Total 400 Balance -400 300 Weight 99.79 kg 99.79 kg Intake: Oral 300 Output: Urine 400 Other: Voiding Method Indwelling Catheter Indwelling Catheter # Bowel Movements 1 - Labs CBC & Chem 7: 12/23/22 06:31 12/24/22 06:36 Labs: Abnormal Lab Results - Last 24 Hours (Table) 12/24/22 Range/Units 06:36 Chloride 111 H (98-107) mmol/L Carbon Dioxide 19 L (22-30) mmol/L BUN 25 H (7-17) mg/dL Glucose 104 H (74-99) mg/dL Microbiology - Last 24 Hours (Table) 12/23/22 01:49 Urine Culture - Final Urine,Voided 12/22/22 19:30 Blood Culture - Preliminary Blood 12/22/22 19:45 Blood Culture - Preliminary Blood
[2022-12-24] MEDS: ATORVASTATIN 10 MG TAB PO SCH (21:41)
[2022-12-24] MEDS: LEVOTHYROXINE 75 MCG TAB PO SCH (21:43)
[2022-12-25] MEDS: HEPARIN SODIUM,PORCINE 5,000 UNIT/ML 1 ML VIAL SQ SCH ×3 (00:34→15:14)
[2022-12-25] MEDS: CEFEPIME 2 GM in SODIUM CHLORIDE 0.9% 100 ML IVPB SCH ×3 (00:34→20:33)
[2022-12-25] MEDS: MULTIVITAMINS, THERA 1 EACH TAB PO SCH (06:07)
[2022-12-25] MEDS: PANTOPRAZOLE 40 MG TABLET PO SCH (06:07)
[2022-12-25] MEDS: HYDROcodone/APAP 5-325MG 1 EACH TAB PO SCH ×4 (08:09→21:30)
[2022-12-25] MEDS: BACLOFEN 10 MG TAB PO SCH ×3 (08:09→21:29)
[2022-12-25] MEDS: FOLIC ACID 1 MG TAB PO SCH (08:09)
[2022-12-25] MEDS: GABAPENTIN 300 MG CAP PO SCH ×2 (08:09→20:33)
[2022-12-25] MEDS: ASCORBIC ACID 500 MG TAB PO SCH (08:09)
[2022-12-25] MEDS: ASPIRIN 81 MG PO SCH (08:09)
[2022-12-25] MEDS: DIROXIMEL FUMARATE 231 MG PO SCH ×2 (08:12→20:45)
[2022-12-25 09:04] LABS: Blood Urea Nitrogen 19.2 mg/dL (9.0-27.0); Calcium 8.7 mg/dL (8.7-10.3); Chloride 108 mmol/L (96-109); Glucose 103 mg/dL (70-110); Potassium 3.9 mmol/L (3.5-5.5); Sodium 143 mmol/L (135-145)
--- NOTE | 2022-12-25 10:33 | P.PN ---
Subjective Progress Note Date: 12/25/22 Principal diagnosis: Fever, UTI/right leg cellulitis Patient is a 52-year-old female with a past medical history significant for MS and intermediate resident history of urinary retention requiring chronic indwelling Chaves catheter and history of recurrent UTIs also have a history of sacral and bilateral posterior gluteal pressure ulcer and history of osteomyelitis patient was sent to the [facility] ER for evaluation of fever patient noticed to have a positive urine also right lower extremity swelling redness concerning for cellulitis. On today's evaluation that is 12/25/2022, the patient did have a low-grade fever 100.1F last evening, the patient is afebrile this morning, the patient is breathing comfortably on room air , the patient denies chest pain or cough, patient denies Abdominal pain , no nausea/vomiting /diarrhea, right leg swelling redness slightly decreased Patient white count down to 10.7 as of 12/23/2022 creatinine is 1.0, urine culture reported negative blood culture with gram-positive bacilli Objective - Vital Signs Vital signs: Vital Signs Temp 98.1 F 12/25/22 01:16 Pulse 88 12/25/22 01:16 Resp 19 12/25/22 01:16 BP 106/69 12/25/22 01:16 Pulse Ox 96 12/25/22 01:16 FiO2 Intake & Output 12/24/22 12/25/22 12/25/22 18:59 06:59 18:59 Intake Total 600 Output Total 900 200 Balance -300 -200 Weight 99.79 kg Intake: Oral 600 Output: Urine 900 200 Other: Voiding Method Indwelling Catheter Indwelling Catheter # Bowel Movements 1 1 - Exam GENERAL DESCRIPTION: Middle-aged female lying in bed in no distress RESPIRATORY SYSTEM: Unlabored breathing , decreased breath sounds at bases HEART: S1 S2 regular rate and rhythm , ABDOMEN: Soft , no tenderness EXTREMITIES: Right leg redness has slightly decreased - Labs CBC & Chem 7: 12/23/22 06:31 12/25/22 05:42 Labs: Abnormal Lab Results - Last 24 Hours (Table) 12/24/22 Range/Units 06:36 Chloride 111 H (98-107) mmol/L Carbon Dioxide 19 L (22-30) mmol/L BUN 25 H (7-17) mg/dL Glucose 104 H (74-99) mg/dL Microbiology - Last 24 Hours (Table) 12/22/22 19:45 Blood Culture Gram Stain - Preliminary Blood Blood Culture - Preliminary 12/22/22 19:30 Blood Culture Gram Stain - Preliminary Blood Blood Culture - Preliminary 12/23/22 01:49 Urine Culture - Final Urine,Voided Assessment and Plan (1) Cellulitis of right leg Current Visit: Yes Status: Acute Code(s): L03.115 - CELLULITIS OF RIGHT LOWER LIMB SNOMED Code(s): 72217226361370271 (2) Sepsis Current Visit: Yes Status: Acute Code(s): A41.9 - SEPSIS, UNSPECIFIED ORG ANISM SNOMED Code(s): 76946471 (3) Decubitus ulcer Current Visit: No Status: Acute Code(s): L89.90 - PRESSURE ULCER OF UNSPECIFIED SITE, UNSPECIFIED STAGE SNOMED Code(s): 7687697914 (4) Urinary tract infection Current Visit: No Status: Acute Code(s): N39.0 - URINARY TRACT INFECTION, SITE NOT SPECIFIED SNOMED Code(s): 54663403 (5) Bacteremia Current Visit: Yes Status: Acute Code(s): R78.81 - BACTEREMIA SNOMED C ode(s): 8637245 Plan: 1patient presented to hospital with sepsis in this patient with a fever tachycardia hypotension elevated white count source is likely catheter since UTI also concern for the right lower extremity cellulitis being a intermediate resident we will need to cover for resistant gram-positive as well as gram- negative pathogen 2-Chaves catheter has been changed and urine cultures so far negative 3--patient did have a stage III sacral pressure ulcer but no evidence of any cellulitis and not likely the source of the sepsis, local wound care with dry Aquacel silver dressing keep the area dry and of the pressure 4-patient did have a positive blood cultures blood cultures will be repeated to document clearance and will wait for the identification of this positive blood culture to see the need for any further workup 5-patient to continue cefepime and vancomycin while waiting for the culture to finalize to determine her discharge antibiotics Dictation was produced using [employer] dictation software. please excuse any grammatical, word or spelling errors. Time with Patient: Less than 30
--- NOTE | 2022-12-25 14:46 | P.PN ---
Subjective Progress Note Date: 12/25/22 Hospital Course: 52-year-old female nursing facility resident with a history of MS, chronic ind welling Chaves catheter presenting with fever and lower extremity redness. In the ED, she was febrile, tachycardic, rest of the vital signs were otherwise within normal limits. WBC 16.5, hemoglobin 10.4, creatinine 0.81, negative respiratory viral panel, large leukocyte esterase, negative nitrites. She was given IV fluids, started on vancomycin and cefepime in the ED. Patient admitted for sepsis secondary to urinary tract infection setting of chronic indwelling Chaves catheter and lower extremity right cellulitis. Urine cultures negative. ID consulted. Currently on vancomycin and cefepime. Now found to be bacteremic. Subjective: Patient seen and examined at bedside. No acute events overnight. Chaves catheter in place. Pertinent positives and negatives as discussed above, a complete review of systems was performed and all other systems are negative. Vitals Signs Reviewed. General: nontoxic, no distress, appears at stated age Derm: warm, dry, bilateral dawkins and thigh erythema, more pronounced on the right side with slight warmth Head: atraumatic, normocephalic, symmetric Eyes: EOMI, no lid lag, anicteric sclera Mouth: no lip lesion, mucus membranes moist Cardiovascular: S1S2 reg, no murmur Lungs: CTA bilateral, no rhonchi, no rales , no accessory muscle use Abdominal: soft, nontender to palpation, no guarding, no appreciable organomegaly Ext: Muscles Strength 5/5 in right upper extremity. She has contractions over the left upper extremity and weakness over bilateral lower extremity 2-3 out of 5 Neuro: CN II-XI grossly intact Psych: Alert, oriented, appropriate affect Data Reviewed Today: Pertinent Labs: Potassium 3.9, creatinine 1.0 Imaging: No new imaging Assessment and Plan: Gram positive bacilli bacteremia Sepsis secondary to likely cellulitis right lower extremity -Urine cultures negative so far -currently on cefepime and vancomycin, monitor renal function -Blood cultures repeat -Discussed management with ID, continue current antibiotic therapy, refer further culture results. - repeat CBC and BMP tomorrow Hypotension, resolved -Status post 1 L bolus normal saline -Encourage oral intake -hold lasix Stage III decubitus sacral ulcer, present on admission -Unlikely to be source of infection -Local wound care Chronic: Chronic anemia, hemoglobin within normal limits Severe MS, not in exacerbation Hypothyroid Dyslipidemia DVT ppx: Subcu heparin Code status: Full Code Anticipated discharge place: back to nursing facility Anticipated discharge time: pending clinical course Objective - Vital Signs Vital signs: Vital Signs Temp 98.7 F 12/25/22 14:00 Pulse 87 12/25/22 14:00 Resp 18 12/25/22 14:00 BP 104/71 12/25/22 14:00 Pulse Ox 97 12/25/22 14:00 FiO2 Intake & Output 12/24/22 12/25/22 12/25/22 18:59 06:59 18:59 Intake Total 600 480 Output Total 900 200 200 Balance -300 -200 280 Weight 99.79 kg Intake: Oral 600 480 Output: Urine 900 200 200 Other: Voiding Method Indwelling Catheter Indwelling Catheter Indwelling Catheter # Bowel Movements 1 1 1 - Labs CBC & Chem 7: 12/23/22 06:31 12/25/22 05:42 Labs: Abnormal Lab Results - Last 24 Hours (Table) 12/25/22 Range/Units 05:42 Carbon Dioxide 21.0 L (21.6-31.8) mmol/L Anion Gap 14.00 H (4.00-12.00) mmol/L Microbiology - Last 24 Hours (Table) 12/22/22 19:45 Blood Culture Gram Stain - Preliminary Blood Blood Culture - Preliminary Gram Positive Bacilli 12/22/22 19:30 Blood Culture Gram Stain - Preliminary Blood Blood Culture - Preliminary Gram Positive Bacilli
[2022-12-25] MEDS: VANCOMYCIN 1,500 MG in SODIUM CHLORIDE 0.9% 500 ML 500 ML IVPB SCH (15:14)
[2022-12-25] MEDS: LEVOTHYROXINE 75 MCG TAB PO SCH (19:42)
[2022-12-25] MEDS: ATORVASTATIN 10 MG TAB PO SCH (20:33)
[2022-12-26] MEDS: HEPARIN SODIUM,PORCINE 5,000 UNIT/ML 1 ML VIAL SQ SCH ×4 (00:05→23:56)
[2022-12-26] MEDS ORDERED: VANCOMYCIN TROUGH DUE 1 EACH MISC MISCELLANE ONE (05:00)
[2022-12-26 06:32] LABS: African American GFR (CKD) >90 (>60 ml/min/1.73 sqM); Anion Gap 11 mmol/L; Blood Urea Nitrogen 17 mg/dL (7-17); Calcium 8.8 mg/dL (8.4-10.2); Carbon Dioxide 21 mmol/L (22-30); Chloride 109 mmol/L (98-107); Glucose 101 mg/dL (74-99); Non-African American GFR(CKD) 88 (>60 ml/min/1.73 sqM); Potassium 3.8 mmol/L (3.5-5.1); Sodium 141 mmol/L (137-145)
[2022-12-26] MEDS: PANTOPRAZOLE 40 MG TABLET PO SCH (06:32)
[2022-12-26] MEDS: VANCOMYCIN 1,500 MG in SODIUM CHLORIDE 0.9% 500 ML 500 ML IVPB SCH (06:33)
[2022-12-26] MEDS: MULTIVITAMINS, THERA 1 EACH TAB PO SCH (06:33)
[2022-12-26] MEDS: FOLIC ACID 1 MG TAB PO SCH (08:03)
[2022-12-26] MEDS: ASCORBIC ACID 500 MG TAB PO SCH (08:03)
[2022-12-26] MEDS: ASPIRIN 81 MG PO SCH (08:03)
[2022-12-26] MEDS: BACLOFEN 10 MG TAB PO SCH ×3 (08:03→21:18)
[2022-12-26] MEDS: HYDROcodone/APAP 5-325MG 1 EACH TAB PO SCH ×4 (08:03→21:18)
[2022-12-26] MEDS: CEFEPIME 2 GM in SODIUM CHLORIDE 0.9% 100 ML IVPB SCH ×3 (08:03→23:56)
[2022-12-26] MEDS: GABAPENTIN 300 MG CAP PO SCH ×2 (08:03→21:18)
[2022-12-26] MEDS: DIROXIMEL FUMARATE 231 MG PO SCH ×2 (08:04→21:18)
--- NOTE | 2022-12-26 11:41 | P.PN ---
Subjective Progress Note Date: 12/26/22 Principal diagnosis: Fever, UTI/right leg cellulitis Patient is a 52-year-old female with a past medical history significant for MS and shelter resident history of urinary retention requiring chronic indwelling Hcaves catheter and history of recurrent UTIs also have a history of sacral and bilateral posterior gluteal pressure ulcer and history of osteomyelitis patient was sent to the [facility] ER for evaluation of fever patient noticed to have a positive urine also right lower extremity swelling redness concerning for cellulitis. On today's evaluation that is 12/26/2022, the patient remains to be afebrile, the patient is breathing comfortably on room air without need for supplemental oxygen, the patient denies chest pain shortness of breath and no cough, patient denies nausea/vomiting /diarrhea, and denies any abdominal pain right leg swelling redness has decreased in intensity Patient white count down to 10.7 as of 12/23/2022 creatinine is 0.79, urine culture reported negative blood culture with gram-positive bacilli Objective - Vital Signs Vital signs: Vital Signs Temp 97.7 F 12/26/22 07:29 Pulse 69 12/26/22 07:29 Resp 18 12/26/22 07:29 BP 115/76 12/26/22 07:29 Pulse Ox 100 12/26/22 07:29 FiO2 Intake & Output 12/25/22 12/26/22 12/26/22 18:59 06:59 18:59 Intake Total 780 Output Total 1100 850 550 Balance -320 -850 -550 Intake: Oral 780 Output: Urine 1100 850 550 Other: Voiding Method Indwelling Catheter Indwelling Catheter # Bowel Movements 1 - Exam GENERAL DESCRIPTION: Middle-aged female lying in bed in no distress RESPIRATORY SYSTEM: Unlabored breathing , decreased breath sounds at bases HEART: S1 S2 regular rate and rhythm , ABDOMEN: Soft , no tenderness EXTREMITIES: Right leg redness has slightly decreased - Labs CBC & Chem 7: 12/23/22 06:31 12/26/22 05:15 Labs: Abnormal Lab Results - Last 24 Hours (Table) 12/26/22 Range/Units 05:15 Chloride 109 H (98-107) mmol/L Carbon Dioxide 21 L (22-30) mmol/L Glucose 101 H (74-99) mg/dL Microbiology - Last 24 Hours (Table) 12/22/22 19:45 Blood Culture Gram Stain - Preliminary Blood Blood Culture - Preliminary Gram Positive Bacilli 12/22/22 19:30 Blood Culture Gram Stain - Preliminary Blood Blood Culture - Preliminary Gram Positive Bacilli Assessment and Plan (1) Cellulitis of right leg Current Visit: Yes Status: Acute Code(s): L03.115 - CELLULITIS OF RIGHT LOWER LIMB SNOMED Code(s): 59093223292185270 (2) Sepsis Current Visit: Yes Status: Acute Code(s): A41.9 - SEPSIS, UNSPECIFIED ORGANISM SNOMED Code(s): 23033073 (3) Urinary tract infection Current Visit: No Status: Acute Code(s): N39.0 - URINARY TRACT INFECTION, SITE NOT SPECIFIED SNOMED Code(s): 80680159 Plan: 1patient presented to hospital with sepsis in this patient with a fever tachycardia hypotension elevated white count source is likely right lower extremity cellulitis , patient did have a positive UA however culture has been negative 2-patient did have a stage III sacral pressure ulcer but no evidence of any cellulitis and not likely the source of the sepsis, local wound care with dry Aquacel silver dressing keep the area dry and of the pressure 3positive blood culture with gram-positive bacilli likely contamination blood culture has been repeated document clearance 4we will continue the patient cefepime however discontinue vancomycin and will reevaluate the patient tomorrow Dictation was produced using [employer] dictation software. please excuse any grammatical, word or spelling errors. Time with Patient: Less than 30
--- NOTE | 2022-12-26 14:28 | P.PN ---
Subjective Progress Note Date: 12/26/22 Hospital Course: 52-year-old female nursing facility resident with a history of MS, chronic indwelling Chaves catheter presenting with fever and lower extremity redness. In the ED, she was febrile, tachycardic, rest of the vital signs were otherwise within normal limits. WBC 16.5, hemoglobin 10.4, creatinine 0.81, negative respiratory viral panel, large leukocyte esterase, negative nitrites. She was given IV fluids, started on vancomycin and cefepime in the ED. Patient admitted for sepsis secondary to urinary tract infection setting of chronic indwelling Chaves catheter and lower extremity right cellulitis. Urine cultures negative. ID consulted. Found to have Corynebacterium bacteremia, currently on IV cefepime Subjective: Patient seen and examined at bedside. No acute events overnight. Cahves catheter in place. Pertinent positives and negatives as discussed above, a complete review of systems was performed and all other systems are negative. Vitals Signs Reviewed. General: nontoxic, no distress, appears at stated age Derm: warm, dry, bilateral dawkins and thigh erythema, more pronounced on the right side with slight warmth Head: atraumatic, normocephalic, symmetric Eyes: EOMI, no lid lag, anicteric sclera Mouth: no lip lesion, mucus membranes moist Cardiovascular: S1S2 reg, no murmur Lungs: CTA bilateral, no rhonchi, no rales , no accessory muscle use Abdominal: soft, nontender to palpation, no guarding, no appreciable organomegaly Ext: Muscles Strength 5/5 in right upper extremity. She has contractions over the left upper extremity and weakness over bilateral lower extremity 2-3 out of 5 Neuro: CN II-XI grossly intact Psych: Alert, oriented, appropriate affect Data Reviewed Today: Pertinent Labs: Potassium 3.8, creatinine 0.79 Imaging: No new imaging Assessment and Plan: Corynebacterium bacteremia Sepsis secondary to likely cellulitis right lower extremity -Urine cultures negative so far -Blood cultures repeat, pending -Sensitivities still pending -ID note reviewed, vancomycin discontinued, continue cefepime - repeat CBC and BMP tomorrow Hypotension, resolved -Status post 1 L bolus normal saline -Encourage oral intake -hold lasix Stage III decubitus sacral ulcer, present on admission -Unlikely to be source of infection -Local wound care Chronic: Chronic anemia, hemoglobin within normal limits Severe MS, not in exacerbation Hypothyroid Dyslipidemia DVT ppx: Subcu heparin Code status: Full Code Anticipated discharge place: back to nursing facility Anticipated discharge time: pending clinical course Objective - Vital Signs Vital signs: Vital Signs Temp 97.7 F 12/26/22 07:29 Pulse 69 12/26/22 07:29 Resp 18 12/26/22 07:29 BP 115/76 12/26/22 07:29 Pulse Ox 100 12/26/22 07:29 FiO2 Intake & Output 12/25/22 12/26/22 12/26/22 18:59 06:59 18:59 Intake Total 780 Output Total 1100 850 550 Balance -320 850 550 Intake: Oral 780 Output: Urine 1100 850 550 Other: Voiding Method Indwelling Catheter Indwelling Catheter # Bowel Movements 1 - Labs CBC & Chem 7: 12/23/22 06:31 12/26/22 05:15 Labs: Abnormal Lab Results - Last 24 Hours (Table) 12/26/22 Range/Units 05:15 Chloride 109 H (98-107) mmol/L Carbon Dioxide 21 L (22-30) mmol/L Glucose 101 H (74-99) mg/dL Microbiology - Last 24 Hours (Table) 12/22/22 19:30 Blood Culture Gram Stain - Final Blood Blood Culture - Final Corynebacterium species 12/22/22 19:45 Blood Culture Gram Stain - Final Blood Blood Culture - Final Corynebacterium species
[2022-12-26] MEDS: ATORVASTATIN 10 MG TAB PO SCH (21:18)
[2022-12-26] MEDS: LEVOTHYROXINE 75 MCG TAB PO SCH (21:18)
[2022-12-27] MEDS: MULTIVITAMINS, THERA 1 EACH TAB PO SCH (06:26)
[2022-12-27] MEDS: PANTOPRAZOLE 40 MG TABLET PO SCH (06:26)
[2022-12-27] MEDS: ASCORBIC ACID 500 MG TAB PO SCH (08:01)
[2022-12-27] MEDS: FOLIC ACID 1 MG TAB PO SCH (08:01)
[2022-12-27] MEDS: ASPIRIN 81 MG PO SCH (08:01)
[2022-12-27] MEDS: HYDROcodone/APAP 5-325MG 1 EACH TAB PO SCH ×4 (08:01→20:50)
[2022-12-27] MEDS: GABAPENTIN 300 MG CAP PO SCH ×2 (08:01→20:50)
[2022-12-27] MEDS: HEPARIN SODIUM,PORCINE 5,000 UNIT/ML 1 ML VIAL SQ SCH ×3 (08:01→23:23)
[2022-12-27] MEDS: BACLOFEN 10 MG TAB PO SCH ×3 (08:01→20:50)
[2022-12-27] MEDS: DIROXIMEL FUMARATE 231 MG PO SCH ×2 (08:02→20:52)
[2022-12-27] MEDS: CEFEPIME 2 GM in SODIUM CHLORIDE 0.9% 100 ML IVPB SCH (08:02)
[2022-12-27 08:24] LABS: African American GFR (CKD) >90 (>60 ml/min/1.73 sqM); Non-African American GFR(CKD) >90 (>60 ml/min/1.73 sqM)
--- NOTE | 2022-12-27 13:32 | P.PN ---
Subjective Progress Note Date: 12/27/22 Hospital Course: 52-year-old female nursing facility resident with a history of MS, chronic ind welling Chaves catheter presenting with fever and lower extremity redness. In the ED, she was febrile, tachycardic, rest of the vital signs were otherwise within normal limits. WBC 16.5, hemoglobin 10.4, creatinine 0.81, negative respiratory viral panel, large leukocyte esterase, negative nitrites. She was given IV fluids, started on vancomycin and cefepime in the ED. Patient admitted for sepsis secondary to urinary tract infection setting of chronic indwelling Chaves catheter and lower extremity right cellulitis. Urine cultures negative. ID consulted. Found to have Corynebacterium bacteremia, currently on IV cefepime. Subjective: Patient seen and examined at bedside. No acute events overnight. Chaves catheter in place. Pertinent positives and negatives as discussed above, a complete review of systems was performed and all other systems are negative. Vitals Signs Reviewed. General: nontoxic, no distress, appears at stated age Derm: warm, dry, bilateral dawkins and thigh erythema, more pronounced on the right side with slight warmth Head: atraumatic, normocephalic, symmetric Eyes: EOMI, no lid lag, anicteric sclera Mouth: no lip lesion, mucus membranes moist Cardiovascular: S1S2 reg, no murmur Lungs: CTA bilateral, no rhonchi, no rales , no accessory muscle use Abdominal: soft, nontender to palpation, no guarding, no appreciable organomegaly Ext: Muscles Strength 5/5 in right upper extremity. She has contractions over the left upper extremity and weakness over bilateral lower extremity 2-3 out of 5 Neuro: CN II-XI grossly intact Psych: Alert, oriented, appropriate affect Data Reviewed Today: Pertinent Labs: Creatinine 0.75 Imaging: No new imaging Assessment and Plan: Corynebacterium bacteremia Sepsis secondary to likely cellulitis right lower extremity -Urine cultures negative so far -Blood cultures repeat, negative growth to date -Sensitivities still pending -ID note reviewed, vancomycin discontinued, continue cefepime Hypotension, resolved -Status post 1 L bolus normal saline -Encourage oral intake -hold lasix Stage III decubitus sacral ulcer, present on admission -Unlikely to be source of infection -Local wound care Chronic: Chronic anemia, hemoglobin within normal limits Severe MS, not in exacerbation Hypothyroid Dyslipidemia DVT ppx: Subcu heparin Code status: Full Code Anticipated discharge place: back to nursing facility Anticipated discharge time: pending clinical course Objective - Vital Signs Vital signs: Vital Signs Temp 98.3 F 12/27/22 07:15 Pulse 66 12/27/22 07:15 Resp 17 12/27/22 07:15 BP 120/75 12/27/22 07:15 Pulse Ox 98 12/27/22 07:15 FiO2 Intake & Output 12/26/22 12/27/22 12/27/22 18:59 06:59 18:59 Output Total 550 400 800 Balance -550 -400 -800 Output: Urine 550 400 800 Other: Voiding Method Indwelling Catheter Indwelling Catheter - Labs CBC & Chem 7: 12/23/22 06:31 12/27/22 07:33 Labs: Microbiology - Last 24 Hours (Table) 12/25/22 09:15 Blood Culture - Preliminary Blood 12/22/22 19:30 Blood Culture Gram Stain - Final Blood Blood Culture - Final Corynebacterium species 12/22/22 19:45 Blood Culture Gram Stain - Final Blood Blood Culture - Final Corynebacterium species
--- NOTE | 2022-12-27 14:26 | P.PN ---
Subjective Progress Note Date: 12/27/22 Principal diagnosis: Fever, UTI/right leg cellulitis Patient is a 52-year-old female with a past medical history significant for MS and prison resident history of urinary retention requiring chronic indwelling Chaves catheter and history of recurrent UTIs also have a history of sacral and bilateral posterior gluteal pressure ulcer and history of osteomyelitis patient was sent to the [facility] ER for evaluation of fever patient noticed to have a positive urine also right lower extremity swelling redness concerning for cellulitis. On today's evaluation that is progress points, the patient right leg swelling redness has decreased in intensity Patient white count down to 10.7 as of 12/23/2022 creatinine is 0.75, urine culture reported negative blood culture with corynebacterium species Objective - Vital Signs Vital signs: Vital Signs Temp 98.3 F 12/27/22 07:15 Pulse 66 12/27/22 07:15 Resp 17 12/27/22 07:15 BP 120/75 12/27/22 07:15 Pulse Ox 98 12/27/22 07:15 FiO2 Intake & Output 12/26/22 12/27/22 12/27/22 18:59 06:59 18:59 Output Total 550 400 800 Balance -550 -400 -800 Output: Urine 550 400 800 Other: Voiding Method Indwelling Catheter Indwelling Catheter - Exam GENERAL DESCRIPTION: Middle-aged female lying in bed in no distress RESPIRATORY SYSTEM: Unlabored breathing , decreased breath sounds at bases HEART: S1 S2 regular rate and rhythm , ABDOMEN: Soft , no tenderness EXTREMITIES: Right leg redness has slightly decreased - Labs CBC & Chem 7: 12/23/22 06:31 12/27/22 07:33 Labs: Microbiology - Last 24 Hours (Table) 12/25/22 09:15 Blood Culture - Preliminary Blood 12/22/22 19:30 Blood Culture Gram Stain - Final Blood Blood Culture - Final Corynebacterium species 12/22/22 19:45 Blood Culture Gram Stain - Final Blood Blood Culture - Final Corynebacterium species Assessment and Plan (1) Cellulitis of right leg Current Visit: Yes Status: Acute Code(s): L03.115 - CELLULITIS OF RIGHT LOWER LIMB SNOMED Code(s): 99074132206745785 (2) Sepsis Current Visit: Yes Status: Acute Code(s): A41.9 - SEPSIS, UNSPECIFIED ORGANISM SNOMED Code(s): 77901521 (3) Urinary tract infection Current Visit: No Status: Acute Code(s): N39.0 - URINARY TRACT INFECTION, SITE NOT SPECIFIED SNOMED Code(s): 14780686 Plan: 1patient presented to hospital with sepsis in this patient with a fever tachycardia hypotension elevated white count source is likely right lower extremity cellulitis , patient did have a positive UA however culture has been negative 2-patient did have a stage III sacral pressure ulcer but no evidence of any cellulitis and not likely the source of the sepsis, local wound care with dry Aquacel silver dressing keep the area dry and of the pressure 3positive blood culture with gram-positive bacilli likely contamination blood culture has been repeated document clearance 4we will transition antibiotics to cefazolin and the patient continued to improve to finish therapy with oral Keflex Dictation was produced using [employer] dictation software. please excuse any grammatical, word or spelling errors. Time with Patient: Less than 30
[2022-12-27] MEDS: ATORVASTATIN 10 MG TAB PO SCH (20:50)
[2022-12-27] MEDS: LEVOTHYROXINE 75 MCG TAB PO SCH (20:50)
[2022-12-28] MEDS: PANTOPRAZOLE 40 MG TABLET PO SCH (06:00)
[2022-12-28] MEDS: MULTIVITAMINS, THERA 1 EACH TAB PO SCH (06:00)
[2022-12-28] MEDS: HYDROcodone/APAP 5-325MG 1 EACH TAB PO SCH ×3 (10:05→20:19)
[2022-12-28] MEDS: ASPIRIN 81 MG PO SCH (10:05)
[2022-12-28] MEDS: ASCORBIC ACID 500 MG TAB PO SCH (10:05)
[2022-12-28] MEDS: GABAPENTIN 300 MG CAP PO SCH (10:05)
[2022-12-28] MEDS: BACLOFEN 10 MG TAB PO SCH ×2 (10:05→16:25)
[2022-12-28] MEDS: FOLIC ACID 1 MG TAB PO SCH (10:05)
[2022-12-28] MEDS: HEPARIN SODIUM,PORCINE 5,000 UNIT/ML 1 ML VIAL SQ SCH ×2 (10:05→16:26)
[2022-12-28] MEDS: DIROXIMEL FUMARATE 231 MG PO SCH (10:08)
--- NOTE | 2022-12-28 14:12 | P.DS ---
Providers Date of admission: 12/22/22 21:41 Expected date of discharge: 12/28/22 Attending physician: Mehrdad Pacheco MD Consults: 12/23/22 14:22 Consult Physician Routine Consulting Provider: Bobo Rivero Consult Reason/Comments: sepsis 2/2 UTI and cellulitis, MDRO UTIs in the past. Do you want consulting provider notified?: Yes Primary care physician: Brianne Gomez, Hospital Course: Discharge Diagnosis: Corynebacterium bacteremia Sepsis secondary to likely cellulitis right lower extremity Hypotension Stage III decubitus sacral ulcer, present on admission Chronic anemia Severe MS, not in exacerbation Hypothyroid Dyslipidemia Hospital Course: 52-year-old female nursing facility resident with a history of MS, chronic indwelling Chaves catheter presenting with fever and lower extremity redness. In the ED, she was febrile, tachycardic, rest of the vital signs were otherwise within normal limits. WBC 16.5, hemoglobin 10.4, creatinine 0.81, negative respiratory viral panel, large leukocyte esterase, negative nitrites. She was given IV fluids, started on vancomycin and cefepime in the ED. Patient admitted for sepsis secondary to urinary tract infection setting of chronic indwelling Chaves catheter and lower extremity right cellulitis. Urine cultures negative. ID consulted. Found to have Corynebacterium bacteremia, was on IV cefepime, then switched to IV cefazolin. Right lower extremity cellulitis improved. Patient being discharged on oral Keflex. Patient seen and examined at bedside. Vital signs reviewed and stable. General: nontoxic, no distress, appears at stated age Derm: warm, dry, bilateral erythema improved Head: atraumatic, normocephalic, symmetric Eyes: EOMI, no lid lag, anicteric sclera Mouth: no lip lesion, mucus membranes moist Cardiovascular: S1S2 reg, no murmur Lungs: CTA bilateral, no rhonchi, no rales , no accessory muscle use Abdominal: soft, nontender to palpation, no guarding, no appreciable organ omegaly Ext: Muscles Strength 5/5 in right upper extremity. She has contractions over the left upper extremity and weakness over bilateral lower extremity 2-3 out of 5 Neuro: CN II-XI grossly intact Psych: Alert, oriented, appropriate affect A total of 36 minutes of time were spent preparing this complex discharge summary. Patient was discharged on 01/07/23 at 11:25. Patient Condition at Discharge: Stable Plan - Discharge Summary Discharge Rx Participant: No New Discharge Prescriptions: New Cephalexin [Keflex] 500 mg PO Q6HR 10 Days #40 cap Continue Folic Acid 1 mg PO DAILY Potassium Chloride ER [K-Dur 20] 20 meq PO BID Aspirin 81 mg PO DAILY Sennosides [Senna] 8.6 mg PO BID Levothyroxine Sodium [Synthroid] 75 mcg PO DAILY@1999 Atorvastatin [Lipitor] 10 mg PO HS@1999 Pro-Stat Liquid (Amino Acids-Protein Hydrolysate) 30 ml PO TID@0700,1100,1600 Ascorbic Acid [Vitamin C] 500 mg PO DAILY Promethazine HCl 12.5 mg PO Q6H PRN PRN Reason: Nausea And Vomiting Gabapentin [Neurontin] 300 mg PO BID #6 cap HYDROcodone/APAP 5-325MG [[place] 5-325] 1 tab PO QID@07,,, #10 tab Acetaminophen [Tylenol 8 Hour] 650 mg PO Q6H PRN PRN Reason: Pain Diroximel Fumarate [Vumerity] 462 mg PO BID Omeprazole 20 mg PO DAILY Furosemide [Lasix] 20 mg PO DAILY Acetaminophen Suppository [Tylenol Suppository] 650 mg RECTAL ONCE Baclofen 10 mg PO TID@0700,1300,1900 Multivitamins, Thera [Multivitamin (formulary)] 1 tab PO DAILY@0700 Discontinued cefTRIAXone [Rocephin] 1 gm IM Q24H Discharge Medication List Folic Acid 1 mg PO DAILY 08/22/16 [History] Potassium Chloride ER [K-Dur 20] 20 meq PO BID 01/12/19 [History] Aspirin 81 mg PO DAILY 09/15/19 [History] Sennosides [Senna] 8.6 mg PO BID 01/31/20 [History] Acetaminophen [Tylenol 8 Hour] 650 mg PO Q6H PRN 09/22/21 [History] Atorvastatin [Lipitor] 10 mg PO HS@199909/22/21 [History] Diroximel Fumarate [Vumerity] 462 mg PO BID 09/22/21 [History] Levothyroxine Sodium [Synthroid] 75 mcg PO DAILY@199909/22/21 [History] Omeprazole 20 mg PO DAILY 07/29/22 [History] Ascorbic Acid [Vitamin C] 500 mg PO DAILY 05/14/22 [History] Furosemide [Lasix] 20 mg PO DAILY 05/14/22 [History] Pro-Stat Liquid (Amino Acids-Protein Hydrolysate) 30 ml PO TID@0700,1100,1600 05/14/22 [History] Acetaminophen Suppository [Tylenol Suppository] 650 mg RECTAL ONCE 12/22/22 [History] Baclofen 10 mg PO TID@0700,1300,1900 12/22/22 [History] Multivitamins, Thera [Multivitamin (formulary)] 1 tab PO DAILY@0700 12/22/22 [History] Promethazine HCl 12.5 mg PO Q6H PRN 12/22/22 [History] Cephalexin [Keflex] 500 mg PO Q6HR 10 Days #40 cap 12/28/22 [Rx] Gabapentin [Neurontin] 300 mg PO BID #6 cap 12/28/22 [Rx] HYDROcodone/APAP 5-325MG [[place] 5-325] 1 tab PO QID@07,,, #10 tab 12/28/22 [Rx] Follow up Appointment(s)/Referral(s): Brianne Gomez DO [Primary Care Provider] - 1-2 days (Med[facility] please call for follow-up appointment.) [facility], [NON-STAFF] - As Needed Patient Instructions/Handouts: Cellulitis (GEN), Bacteremia (DC) Activity/Diet/Wound Care/Special Instructions: Please see your PCP. Discharge Disposition: TRANSFER TO SNF/ECF
[2022-12-28 15:37] LABS: Basophils # (A) 0.06 X 10*3/uL (0.00-0.10); Basophils % (A) 0.9 %; Eosinophils % (A) 1.5 %; HCT 34.7 % (37.2-46.3); HGB 10.4 d/dL (12.0-15.0); Lymphocytes # (A) 0.64 X 10*3/uL (0.90-5.00); Lymphocytes % (A) 9.9 %; MCH 26.5 pg (27.0-32.0); MCV 88.5 FL (80.0-97.0); Mean Platelet Volume 10.6 FL (9.5-12.2); Monocytes # (A) 0.27 X 10*3/uL (0.20-1.00); Monocytes % (A) 4.2 %; NRBC Per 100 WBC 0 X 10*3/uL (0.00-0.01); Neutrophils % (A) 80.1 %; Platelet Count 302 X 10*3/uL (140-440); RBC 3.92 X 10*6/uL (4.10-5.20); RDW 16.8 % (11.5-14.5); WBC 6.49 X 10*3/uL (4.50-10.00)
[2022-12-28 16:25] LABS: BUN/Creat Ratio 17.33 Ratio (12.00-20.00); Blood Urea Nitrogen 15.6 mg/dL (9.0-27.0); Calcium 9.3 mg/dL (8.7-10.3); Carbon Dioxide 22.8 mmol/L (21.6-31.8); Chloride 109 mmol/L (96-109); Glucose 159 mg/dL (70-110); Potassium 4.1 mmol/L (3.5-5.5); Sodium 144 mmol/L (135-145)
[2022-12-28 20:27] VITALS: BP 142/79; PULSE 83; RESP 18; TEMP 98.1
--- NOTE | 2022-12-29 05:23 | P.PN ---
Subjective Progress Note Date: 12/28/22 Principal diagnosis: Fever, UTI/right leg cellulitis Patient is a 52-year-old female with a past medical history significant for MS and custodial resident history of urinary retention requiring chronic indwelling Chaves catheter and history of recurrent UTIs also have a history of sacral and bilateral posterior gluteal pressure ulcer and history of osteomyelitis patient was sent to the [facility] ER for evaluation of fever patient noticed to have a positive urine also right lower extremity swelling redness concerning for cellulitis. On today's evaluation that is 12/28/2022, the patient denies any fever or any chills, the patient is breathing comfortably on room air and no need for supplemental oxygen, patient denies abdominal pain and no nausea/vomiting /diarrhea,the patient denies chest pain or cough, the patient right leg swelling redness has decreased in intensity Patient white count is 6.49 creatinine is 0.9, urine culture reported negative blood culture with corynebacterium species Objective - Vital Signs Vital signs: Vital Signs Temp 98.2 F 12/28/22 07:15 Pulse 72 12/28/22 09:06 Resp 17 12/28/22 09:06 BP 118/75 12/28/22 07:15 Pulse Ox 100 12/28/22 07:15 FiO2 Intake & Output 12/27/22 12/28/22 12/28/22 18:59 06:59 18:59 Output Total 2275 2250 Balance -2275 -2250 Output: Urine 2275 2250 Other: Voiding Method Indwelling Catheter Indwelling Catheter Indwelling Catheter # Voids 1 - Exam GENERAL DESCRIPTION: Middle-aged female lying in bed in no distress RESPIRATORY SYSTEM: Unlabored breathing , decreased breath sounds at bases HEART: S1 S2 regular rate and rhythm , ABDOMEN: Soft , no tenderness EXTREMITIES: Right leg redness has slightly decreased - Labs CBC & Chem 7: 12/28/22 08:53 12/28/22 08:53 Labs: Microbiology - Last 24 Hours (Table) 12/25/22 09:15 Blood Culture - Preliminary Blood Assessment and Plan (1) Cellulitis of right leg Status: Acute Code(s): L03.115 - CELLULITIS OF RIGHT LOWER LIMB SNOMED Code(s): 76245585340674217 (2) Sepsis Status: Acute Code(s): A41.9 - SEPSIS, UNSPECIFIED ORGANISM SNOMED Code(s): 14870054 (3) Urinary tract infection Status: Acute Code(s): N39.0 - URINARY TRACT INFECTION, SITE NOT SPECIFIED SNOMED Code(s): 93155893 Plan: 1patient presented to hospital with sepsis in this patient with a fever tac hycardia hypotension elevated white count source is likely right lower extremity cellulitis , patient did have a positive UA however culture has been negative 2-patient did have a stage III sacral pressure ulcer but no evidence of any cellulitis and not likely the source of the sepsis, local wound care with dry Aquacel silver dressing keep the area dry and of the pressure 3positive blood culture with gram-positive bacilli likely contamination blood culture has been repeated document clearance 4Pt right leg cellulitis continue to improve with cefazolin and the patient will finish therapy with oral Keflex x 7 days , discussed with admitting team Dictation was produced using [employer] dictation software. please excuse any grammatical, word or spelling errors. Time with Patient: Less than 30
== END 2022-12-28 22:00 | DRG 720 ==
LOC: EC 19:10 → 5NMEDONC 21:41 → 4SSUR 12-23 18:10
PROVIDERS: ADMIT Internal Medicine; ATTEND Internal Medicine
DX: A41.59 Other Gram-negative sepsis (principal); T83.511A Infection and inflammatory reaction due to indwelling urethral catheter, initial encounter; L89.153 Pressure ulcer of sacral region, stage 3; I50.9 Heart failure, unspecified; Z20.822 Contact with and (suspected) exposure to COVID-19; D53.9 Nutritional anemia, unspecified; E03.9 Hypothyroidism, unspecified; Z79.890 Hormone replacement therapy; G35 Multiple sclerosis; L03.115 Cellulitis of right lower limb; I25.10 Atherosclerotic heart disease of native coronary artery without angina pectoris; D50.9 Iron deficiency anemia, unspecified; I11.0 Hypertensive heart disease with heart failure; Z99.3 Dependence on wheelchair; E78.5 Hyperlipidemia, unspecified; Y84.6 Urinary catheterization as the cause of abnormal reaction of the patient, or of later complication, without mention of misadventure at the time of the procedure; Z79.82 Long term (current) use of aspirin; Z87.440 Personal history of urinary (tract) infections; N31.9 Neuromuscular dysfunction of bladder, unspecified; Z87.01 Personal history of pneumonia (recurrent); Z86.14 Personal history of Methicillin resistant Staphylococcus aureus infection; Z91.048 Other nonmedicinal substance allergy status; Z88.8 Allergy status to other drugs, medicaments and biological substances; Z79.899 Other long term (current) drug therapy
CPT/HCPCS: 36415; 71046; 80048; 80053; 80202; 81001; 82565; 83605; 83735; 83880; 85025; 85610; 85730; 86140; 87040; 87086; 87636; 93005

== ENCOUNTER 2023-06-19 00:57 | Inpatient (IN) | payer OTHER ==
[2023-06-19] MEDS: ACETAMINOPHEN TAB 325 MG TAB PO STA (02:38)
[2023-06-19] MEDS: SODIUM CHLORIDE 0.9% 500 ML 500 ML IV STA (02:41)
[2023-06-19 03:25] LABS: Appearance,Urine Turbid (Clear); Bacteria,Urine Moderate /hpf; Bilirubin,Urine Negative (Negative); Blood,Urine Moderate (Negative); Color,Urine Light Yellow; Glucose,Urine (UA) Negative (Negative); Ketones,Urine Negative (Negative); Leukocyte Esterase,Urine Large (Negative); Mucus,Urine Occasional /hpf; Nitrite,Urine Positive (Negative); PH, Urine 8.5 (5.0-8.0); Protein,Urine 2+ (Negative); RBC,Urine 66 /hpf (0-5); Specific Gravity,Urine 1.017 (1.001-1.035); Squamous Epithelial Cell,Urine 1 /hpf (0-4); Urobilinogen,Urine <2.0 mg/dL (<2.0); WBC,Urine 58 /hpf (0-5)
[2023-06-19 03:26] LABS: ALT 24 U/L (4-34); AST 20 U/L (14-36); African American GFR (CKD) >90 (>60 ml/min/1.73 sqM); Albumin 4.2 g/dL (3.5-5.0); Alkaline Phosphatase 64 U/L (38-126); Anion Gap 10 mmol/L; Blood Urea Nitrogen 36 mg/dL (7-17); Carbon Dioxide 27 mmol/L (22-30); Chloride 107 mmol/L (98-107); Glucose 173 mg/dL (74-99); Non-African American GFR(CKD) >90 (>60 ml/min/1.73 sqM); Potassium 4.5 mmol/L (3.5-5.1); Sodium 144 mmol/L (137-145); Total Bilirubin 0.5 mg/dL (0.2-1.3); Total Protein 6.9 g/dL (6.3-8.2)
[2023-06-19 03:34] LABS: Anisocytosis Slight; Basophils % (A) 0 %; Eosinophils # (A) 0.1 k/uL (0-0.7); Eosinophils % (A) 1 %; HCT 36.1 % (34.0-46.0); HGB 11.6 gm/dL (11.4-16.0); Lymphocytes # (A) 0.6 k/uL (1.0-4.8); Lymphocytes % (A) 6 %; MCH 27.7 pg (25.0-35.0); MCHC 32.3 g/dL (31.0-37.0); MCV 85.9 fL (80.0-100.0); Mean Platelet Volume 7.9; Monocytes # (A) 0.5 k/uL (0-1.0); Monocytes % (A) 5 %; Neutrophils # (A) 8.7 k/uL (1.3-7.7); Neutrophils % (A) 85 %; Platelet Count 261 k/uL (150-450); RDW 16.2 % (11.5-15.5); WBC 10.3 k/uL (3.8-10.6)
--- NOTE | 2023-06-19 05:11 | XR ---
EXAM: XR Chest, 2 Views CLINICAL HISTORY: Cough/pain TECHNIQUE: Frontal and lateral views of the chest. COMPARISON: December 22, 2022 FINDINGS: Lungs: Mild increased density in the left lung base which may represent infiltration or atelectasis. Pleural space: Unremarkable. No pneumothorax. No pleural fluid. Heart: Cardiomegaly. Mediastinum: Unremarkable. Normal mediastinal contour. Bones/joints: Unremarkable. No acute abnormalities. IMPRESSION: Mild increased density in the left lung base which may represent infiltration or atelectasis.
--- NOTE | 2023-06-19 06:13 | ED ---
General Adult HPI - General Chief complaint: Recheck/Abnormal Lab/Rx Stated complaint: sepsis Time Seen by Provider: 06/19/23 01:05 Source: patient, EMS Mode of arrival: EMS - History of Present Illness Initial comments: 53-year-old female with past medical history of MS, recurrent cellulitis who presents to the emergency department for possible sepsis. She was sent in from her extended care facility. They noted that the patient had elevated heart rate and temperature. They state that when this happens to the patient that she has a tendency to get septic from several sources. Patient does have a bedsore. She also has an indwelling [place] that she gets recurrent UTIs. Patient also has bilateral lower extremity edema with recurrent cellulitis. Patient cannot provide much history. No report of any changes in the patient's bowel or bladder habits. She states her catheter was just recently changed. She denies any retention. Continues to make urine. No abdominal pain. No other alleviating, precipitating or modifying factors - Related Data Home Medications Medication Instructions Recorded Confirmed Potassium Chloride ER [K-Dur 20] 20 meq PO BID 01/12/19 06/19/23 Aspirin 81 mg PO DAILY 09/15/19 06/19/23 Sennosides [Senna] 8.6 mg PO BID 01/31/20 06/19/23 Atorvastatin [Lipitor] 10 mg PO HS 09/22/21 06/19/23 Diroximel Fumarate [Vumerity] 462 mg PO BID 09/22/21 06/19/23 Levothyroxine Sodium [Synthroid] 75 mcg PO HS 09/22/21 06/19/23 Ascorbic Acid [Vitamin C] 500 mg PO DAILY 05/14/22 06/19/23 Furosemide [Lasix] 20 mg PO DAILY 05/14/22 06/19/23 Pro-Stat Liquid (Amino 30 ml PO TID@0700,1100,1600 05/14/22 06/19/23 Acids-Protein Hydrolysate) Baclofen 10 mg PO TID@0700,1300,1900 12/22/22 06/19/23 Multivitamins, Thera [Multivitamin 1 tab PO DAILY 12/22/22 06/19/23 (formulary)] Acetaminophen [Tylenol Extra 500 mg PO ONCE 06/19/23 06/19/23 Strength] Folic Acid 0.4 mg PO BID 06/19/23 06/19/23 Lansoprazole [Prevacid] 15 mg PO DAILY 06/19/23 06/19/23 Naloxone HCl 0.4 mg SQ DIRECTED PRN 06/19/23 06/19/23 Nitroglycerin Sl Tabs [Nitrostat] 0.4 mg SUBLINGUAL ONCE 06/19/23 06/19/23 Previous Rx's Medication Instructions Recorded Gabapentin [Neurontin] 300 mg PO BID 3 Days #6 cap 06/25/23 HYDROcodone/APAP 5-325MG [[place] 1 tab PO QID@07,13,19,23 3 Days 06/25/23 5-325] #10 tab Vancomycin 1,500 mg IVPB Q24HR #12 each 06/25/23 Allergies Allergy/AdvReac Type Severity Reaction Status Date / Time adhesive tape Allergy Rash/Hives Verified 06/19/23 09:49 cinnamon Allergy Rash/Hives Verified 06/19/23 09:49 Review of Systems ROS Statement: Those systems with pertinent positive or pertinent negative responses have been documented in the HPI. ROS Other: All systems not noted in ROS Statement are negative. Past Medical History Past Medical History: Hyperlipidemia, Musculoskeletal Disorder, Neurologic Disorder, Pneumonia, Renal Disease, Skin Disorder Additional Past Medical History / Comment(s): Multiple sclerosis stage IV- wheelchair bound, L side weaker than right, past renal failure with hemodialysis-last time was July 2016, neurogenic bladder with indwelling [place], past sepsis, iron deficiency anemia, wounds present on bilateral gluteal folds and sacral area History of Any Multi-Drug Resistant Organisms: ESBL, MRSA, VRE Date of last positivie culture/infection: 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;03/08/20 MRSA; ESBL 08/27/17 MDRO Source:: Urine-VRE; Buttock MRSA; ESBL-Urine Past Surgical History: No Surgical Hx Reported Additional Past Surgical History / Comment(s): LP, debridement decubitus sacral ulcer, hemodialysis cath since removed, picc lines Past Anesthesia/Blood Transfusion Reactions: No Reported Reaction Additional Past Anesthesia/Blood Transfusion Reaction / Comment(s): NEVER HAD ANY GENERAL ANES Past Psychological History: No Psychological Hx Reported Smoking Status: Never smoker Past Alcohol Use History: None Reported Past Drug Use History: None Reported - Past Family History Father History Unknown: Yes Additional Family Medical History / Comment(s): PTS DAD LIVED IN [place]- SHE'S NOT SURE WHAT HE FROM. HE HAD HYPOTENSION. Mother Family Medical History: Coronary Artery Disease (CAD), Diabetes Mellitus, Hyperlipidemia, Hypertension Additional Family Medical History / Comment(s): CARDIAC STENTS General Exam Limitations: physical limitation General appearance: alert Head exam: Present: atraumatic, normocephalic, normal inspection Eye exam: Present: normal appearance, PERRL, EOMI. Absent: scleral icterus, conjunctival injection, periorbital swelling Respiratory exam: Present: wheezes Cardiovascular Exam: Present: normal rhythm, tachycardia GI/Abdominal exam: Present: soft, normal bowel sounds. Absent: distended, tenderness, guarding, rebound, rigid Extremities exam: Present: pedal edema Neurological exam: Present: alert Psychiatric exam: Present: flat affect Course Vital Signs 06/19/23 06/19/23 06/19/23 01:04 02:35 03:08 Temperature 99.1 F Pulse Rate 107 H 111 H 105 H Pulse Rate [ Pulse Oximetery ] Respiratory 19 18 18 Rate Blood Pressure 124/78 129/84 122/80 O2 Sat by Pulse 100 Oximetry 06/19/23 06/19/23 06/19/23 05:27 06:00 07:49 Temperature 101.1 F H Pulse Rate 107 H 116 H 117 H Pulse Rate [ Pulse Oximetery ] Respiratory 19 18 28 H Rate Blood Pressure 113/59 129/70 135/61 O2 Sat by Pulse 98 98 Oximetry 06/19/23 06/19/23 06/19/23 08:58 09:52 10:00 Temperature Pulse Rate 120 H 123 H 120 H Pulse Rate [ Pulse Oximetery ] Respiratory 22 16 20 Rate Blood Pressure 123/53 128/79 133/71 O2 Sat by Pulse 94 L 97 99 Oximetry 06/19/23 06/19/23 06/19/23 11:00 12:00 13:00 Temperature Pulse Rate 118 H 129 H 123 H Pulse Rate [ Pulse Oximetery ] Respiratory 16 21 20 Rate Blood Pressure 120/70 125/69 122/74 O2 Sat by Pulse 99 95 98 Oximetry 06/19/23 06/19/23 06/19/23 15:37 16:00 17:00 Temperature 98.9 F Pulse Rate 120 H 120 H 124 H Pulse Rate [ Pulse Oximetery ] Respiratory 20 20 22 Rate Blood Pressure 131/63 119/74 105/82 O2 Sat by Pulse 93 L 94 L 95 Oximetry 06/19/23 06/19/23 06/19/23 18:00 20:00 20:18 Temperature Pulse Rate 121 H 129 H Pulse Rate [ 124 H Pulse Oximetery ] Respiratory 18 Rate Blood Pressure 144/51 130/63 O2 Sat by Pulse 93 L 96 Oximetry Medical Decision Making - Medical Decision Making Was pt. sent in by a medical professional or institution (, PA, MANAGEMENT CONSULTING, urgent care, hospital, or skilled nursing...) When possible be specific @ -Patient was sent in from a rehab facility Did you speak to anyone other than the patient for history (EMS, parent, family, police, friend...)? What history was obtained from this source @ -No Did you review nursing and triage notes (agree or disagree)? Why? @ -I reviewed and agree with nursing and triage notes Were old charts reviewed (outside hosp., previous admission, EMS record, old EKG, old radiological studies, urgent care reports/EKG's, skilled nursing records)? Report findings @ -I reviewed the transfer paperwork from patient's ECF Differential Diagnosis (chest pain, altered mental status, abdominal pain women, abdominal pain men, vaginal bleeding, weakness, fever, dyspnea, syncope, headache, dizziness, GI bleed, back pain, seizure, CVA, palpatations, mental health, musculoskeletal)? @ -Differential Fever: Pneumonia, viral URI, endocarditis, myocarditis, pericarditis, otitis, sinusitis, peritonsillar Abscess, retropharyngeal Abscess, epiglottitis, peritonitis, appendicitis, Juju cystitis, diverticulitis, hepatitis, colitis, UTI, PID, TOA, pyelonephritis, prostatitis, epididymitis, meningitis, encephalitis, pulmonary embolism, CVA, thyroid storm, pancreatitis, adrenal crisis, cavernous sinus thrombosis, this is not meant to be an all-inclusive list. EKG interpreted by me (3pts min.). @ -Not done X-rays interpreted by me (1pt min.). @ -Yes and demonstrates possible pneumonia CT interpreted by me (1pt min.). @ -None done U/S interpreted by me (1pt. min.). @ -None done What testing was considered but not performed or refused? (CT, X-rays, U/S, labs)? Why? @ -None What meds were considered but not given or refused? Why? @ -None Did you discuss the management of the patient with other professionals (professionals i.e. , PA, MANAGEMENT CONSULTING, lab, RT, psych nurse, child protective services social worker, lumber inspector, teacher, transportation officer, nurse case manager)? Give summary @ -Spoke with Dr. Rebolledo who will admit the patient Was smoking cessation discussed for >3mins.? @ -No Was critical care preformed (if so, how long)? @ -Yes for identification of sepsis Were there social determinants of health that impacted care today? How? (Homelessness, low income, unemployed, alcoholism, drug addiction, transportation, low edu. Level, literacy, decrease access to med. care, correction, rehab)? @ -Patient resides in [facility] Was there de-escalation of care discussed even if they declined (Discuss DNR or withdrawal of care, Hospice)? DNR status @ -No What co-morbidities impacted this encounter? (DM, HTN, Smoking, COPD, CAD, Cancer, CVA, ARF, Chemo, Hep., AIDS, mental health diagnosis, sleep apnea, morbid obesity)? @ -MS Was patient admitted / discharged? Hospital course, mention meds given and route, prescriptions, significant lab abnormalities, going to OR and other pertinent info. @ -Upon arrival patient was seen and evaluated in room 5. Thorough history and physical exam was performed. IV access was established. Laboratory studies are conducted. Urinalysis is sent. Chest x-ray was performed. Source of infection was identified at 5:10 AM with concern for pneumonia on chest x-ray. Antibiotics are initiated as well as intravenous fluids. Blood cultures are obtained prior to antibiotic administration. Recommended admission for which the patient was agreeable. Spoke with Dr. Kyle for the admission Undiagnosed new problem with uncertain prognosis? @ -No Drug Therapy requiring intensive monitoring for toxicity (Heparin, Nitro, Insulin, Cardizem)? @ -No Were any procedures done? @ -No Diagnosis/symptom? @ -Acute lobar pneumonia, acute cellulitis, acute UTI, SIRS with sepsis Acute, or Chronic, or Acute on Chronic? @ -Acute Uncomplicated (without systemic symptoms) or Complicated (systemic symptoms)? @ -Complicated Side effects of treatment? @ -No Exacerbation, Progression, or Severe Exacerbation? @ -No Poses a threat to life or bodily function? How? (Chest pain, [place], NE, pneumonia, PE, COPD, DKA, ARF, appy, cholecystitis, CVA, Diverticulitis, Homicidal, Suicidal, threat to staff... and all critical care pts) @ -Yes as patient does have SIRS criteria with sepsis - Lab Data Result diagrams: 06/22/23 09:23 06/25/23 06:47 Lab Results 06/19/23 06/19/23 06/19/23 Range/Units 02:33 03:08 03:18 WBC 10.3 (3.8-10.6) k/uL RBC 4.20 (3.80-5.40) m/uL Hgb 11.6 (11.4-16.0) gm/dL Hct 36.1 (34.0-46.0) % MCV 85.9 (80.0-100.0) fL MCH 27.7 (25.0-35.0) pg MCHC 32.3 (31.0-37.0) g/dL RDW 16.2 H (11.5-15.5) % Plt Count 261 (150-450) k/uL MPV 7.9 Neutrophils % 85 % Lymphocytes % 6 % Monocytes % 5 % Eosinophils % 1 % Basophils % 0 % Neutrophils # 8.7 H (1.3-7.7) k/uL Lymphocytes # 0.6 L (1.0-4.8) k/uL Monocytes # 0.5 (0-1.0) k/uL Eosinophils # 0.1 (0-0.7) k/uL Basophils # 0.0 (0-0.2) k/uL Anisocytosis Slight Sodium 144 (137-145) mmol/L Potassium 4.5 (3.5-5.1) mmol/L Chloride 107 (98-107) mmol/L Carbon Dioxide 27 (22-30) mmol/L Anion Gap 10 mmol/L BUN 36 H (7-17) mg/dL Creatinine 0.72 (0.52-1.04) mg/dL Est GFR (CKD-EPI)AfAm >90 (>60 ml/min/1.73 sqM) Est GFR (CKD-EPI)NonAf >90 (>60 ml/min/1.73 sqM) Glucose 173 H (74-99) mg/dL Plasma Lactic Acid Armando (0.7-2.0) mmol/L Calcium 9.0 (8.4-10.2) mg/dL Total Bilirubin 0.5 (0.2-1.3) mg/dL AST 20 (14-36) U/L ALT 24 (4-34) U/L Alkaline Phosphatase 64 (38-126) U/L Total Protein 6.9 (6.3-8.2) g/dL Albumin 4.2 (3.5-5.0) g/dL Urine Color Light Yellow Urine Appearance Turbid H (Clear) Urine pH 8.5 H (5.0-8.0) Ur Specific [place] 1.017 (1.001-1.035) Urine Protein 2+ H (Negative) Urine Glucose (UA) Negative (Negative) Urine Ketones Negative (Negative) Urine Blood Moderate H (Negative) Urine Nitrite Positive H (Negative) Urine Bilirubin Negative (Negative) Urine Urobilinogen <2.0 (<2.0) mg/dL Ur Leukocyte Esterase Large H (Negative) Urine RBC 66 H (0-5) /hpf Urine WBC 58 H (0-5) /hpf Ur Squamous Epith Cells 1 (0-4) /hpf Urine Bacteria Moderate H (None) /hpf Urine Mucus Occasional H (None) /hpf 06/19/23 Range/Units 03:18 WBC (3.8-10.6) k/uL RBC (3.80-5.40) m/uL Hgb (11.4-16.0) gm/dL Hct (34.0-46.0) % MCV (80.0-100.0) fL MCH (25.0-35.0) pg MCHC (31.0-37.0) g/dL RDW (11.5-15.5) % Plt Count (150-450) k/uL MPV Neutrophils % % Lymphocytes % % Monocytes % % Eosinophils % % Basophils % % Neutrophils # (1.3-7.7) k/uL Lymphocytes # (1.0-4.8) k/uL Monocytes # (0-1.0) k/uL Eosinophils # (0-0.7) k/uL Basophils # (0-0.2) k/uL Anisocytosis Sodium (137-145) mmol/L Potassium (3.5-5.1) mmol/L Chloride (98-107) mmol/L Carbon Dioxide (22-30) mmol/L Anion Gap mmol/L BUN (7-17) mg/dL Creatinine (0.52-1.04) mg/dL Est GFR (CKD-EPI)AfAm (>60 ml/min/1.73 sqM) Est GFR (CKD-EPI)NonAf (>60 ml/min/1.73 sqM) Glucose (74-99) mg/dL Plasma Lactic Acid Armando 1.2 (0.7-2.0) mmol/L Calcium (8.4-10.2) mg/dL Total Bilirubin (0.2-1.3) mg/dL AST (14-36) U/L ALT (4-34) U/L Alkaline Phosphatase (38-126) U/L Total Protein (6.3-8.2) g/dL Albumin (3.5-5.0) g/dL Urine Color Urine Appearance (Clear) Urine pH (5.0-8.0) Ur Specific [place] (1.001-1.035) Urine Protein (Negative) Urine Glucose (UA) (Negative) Urine Ketones (Negative) Urine Blood (Negative) Urine Nitrite (Negative) Urine Bilirubin (Negative) Urine Urobilinogen (<2.0) mg/dL Ur Leukocyte Esterase (Negative) Urine RBC (0-5) /hpf Urine WBC (0-5) /hpf Ur Squamous Epith Cells (0-4) /hpf Urine Bacteria (None) /hpf Urine Mucus (None) /hpf Disposition Clinical Impression: Cellulitis, Tachycardia, Pneumonia Disposition: ADMITTED IP TO THIS [facility] Condition: Stable Is patient prescribed a controlled substance at d/c from ED?: No Time of Disposition: 06:23 Decision to Admit Reason: Admit from EC Decision Date: 06/19/23 Decision Time: 06:23
[2023-06-19] MEDS ORDERED: VANCOMYCIN IV PER PHARMACY 1 EACH MISC MISCELLANE PRN (06:20)
[2023-06-19] MEDS ORDERED: NALOXONE 0.4 MG/ML 1 ML VIAL IV PRN (06:23)
--- NOTE | 2023-06-19 06:42 | XR ---
EXAM: XR Right Knee, 2 Views CLINICAL HISTORY: knee pain TECHNIQUE: Two views of the right knee. COMPARISON: March 04, 2016. FINDINGS: Bones/joints: Very advanced degenerative arthropathy of the knee, most posterior in the lateral knee compartment. This is significantly progressive from the prior study. No acute fracture or dislocation. Soft tissues: Unremarkable. IMPRESSION: No acute findings in the right knee. Advanced degenerative arthropathy, most pronounced in the lateral knee compartment.
[2023-06-19] MEDS: CEFEPIME 2 GM in SODIUM CHLORIDE 0.9% 100 ML IVPB STA (06:43)
[2023-06-19] MEDS: SODIUM CHLORIDE 0.9% 1,000 ML IV SCH (06:52)
[2023-06-19] MEDS: VANCOMYCIN 1,750 MG in SODIUM CHLORIDE 0.9% 500 ML 500 ML IVPB STA (08:57)
[2023-06-19] MEDS: MORPHINE SULFATE 4 MG/ML SYRINGE IVP STA (09:53)
--- NOTE | 2023-06-19 12:08 | P.HPIM ---
History of Present Illness H&P Date: 06/19/23 History of present illness; patient 53-year-old lady with past medical history significant for MS who is [facility] resident brought to the ER for left lower extremity swelling and pain. Patient is alert, and able to answer questions. Patient stated that for the last few days she reports that her left leg was getting swollen, she was having pain in the left leg as well. She also noticed the left leg was red in color. Denies any fever or chills. Denies any shortness of breath. There is no complaint of cough. Patient did complain of lethargy and weakness. Because of this complaint she was brought to the ER Initial lab work done in the ER showed WBC 10.3, hemoglobin 6, platelet count 261, sodium 144, potassium 4.5, BUN 36, creatinine 0.72, AST 20, ALT 24 UA positive for large amount of leukocyte Estrace, urine WBC 58, nitrite positive Knee x-ray done showed no acute finding of the right knee Chest x-ray done in the ER showed mild increased density in the left lung base representing infiltration atelectasis Patient admitted to internal medicine service REVIEW OF SYSTEMS: CONSTITUTIONAL: No fever, no malaise, no fatigue. HEENT: No recent visual problems or hearing problems. Denied any sore throat. CARDIOVASCULAR: No chest pain, orthopnea, PND, no palpitations, no syncope. PULMONARY: No shortness of breath, no cough, no hemoptysis. GASTROINTESTINAL: No diarrhea, no nausea, no vomiting, no abdominal pain. NEUROLOGICAL: No headaches, no weakness, no numbness. HEMATOLOGICAL: Denies any bleeding or petechiae. GENITOURINARY: Denies any burning micturition, frequency, or urgency. MUSCULOSKELETAL/RHEUMATOLOGICAL: Denies any joint pain, swelling, or any muscle pain. ENDOCRINE: Denies any polyuria or polydipsia. The rest of the 14-point review of systems is negative. PHYSICAL EXAMINATION: GENERAL: The patient is alert and oriented x3, chronically ill looking HEENT: Pupils are round and equally reacting to light. EOMI. No scleral icterus. No conjunctival pallor. Normocephalic, atraumatic. No pharyngeal erythema. No thyromegaly. CARDIOVASCULAR: S1 and S2 present. No murmurs, rubs, or gallops. PULMONARY: Chest is clear to auscultation, no wheezing or crackles. ABDOMEN: Soft, nontender, nondistended, normoactive bowel sounds. No palpable organomegaly. MUSCULOSKELETAL: No joint swelling or deformity. EXTREMITIES: Left lower extremity is swollen, erythema involving the calf area of left leg. NEUROLOGICAL: Gross neurological examination did not reveal any focal deficits. SKIN: No rashes. Assessment and plan Left leg cellulitis Sepsis UTI Tachycardia Chronic anemia Severe MS, not in exacerbation Hypothyroid Dyslipidemia Monitor vital signs Monitor CBC Monitor CMP Continue telemetry monitoring Blood cultures Order urine culture continue IV cefepime and vancomycin Ordered D-dimer Ordered ultrasound left lower extremity Resume home meds Consult ID Labs and medication were reviewed.. Continue same treatment. Continue with symptomatic treatment. Resume home medication. Monitor labs and vitals. DVT and GI prophylaxis. Further recommendations as per clinical course of the patient Dictation was produced using [employer] dictation software. please excuse any grammatical, word or spelling errors. Past Medical History Past Medical History: Hyperlipidemia, Musculoskeletal Disorder, Neurologic D isorder, Pneumonia, Renal Disease, Skin Disorder Additional Past Medical History / Comment(s): Multiple sclerosis stage IV- wheelchair bound, L side weaker than right, past renal failure with hemodialysis-last time was July 2016, neurogenic bladder with indwelling [place], past sepsis, iron deficiency anemia, wounds present on bilateral gluteal folds and sacral area History of Any Multi-Drug Resistant Organisms: ESBL, MRSA, VRE Date of last positivie culture/infection: 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;03/08/20 MRSA; ESBL 08/27/17 MDRO Source:: Urine-VRE; Buttock MRSA; ESBL-Urine Past Surgical History: No Surgical Hx Reported Additional Past Surgical History / Comment(s): LP, debridement decubitus sacral ulcer, hemodialysis cath since removed, picc lines Past Anesthesia/Blood Transfusion Reactions: No Reported Reaction Additional Past Anesthesia/Blood Transfusion Reaction / Comment(s): NEVER HAD ANY GENERAL ANES Past Psychological History: No Psychological Hx Reported Smoking Status: Never smoker Past Alcohol Use History: None Reported Past Drug Use History: None Reported - Past Family History Father History Unknown: Yes Additional Family Medical History / Comment(s): PTS DAD LIVED IN [place]- SHE'S NOT SURE WHAT HE FROM. HE HAD HYPOTENSION. Mother Family Medical History: Coronary Artery Disease (CAD), Diabetes Mellitus, Hyperlipidemia, Hypertension Additional Family Medical History / Comment(s): CARDIAC STENTS Medications and Allergies Home Medications Medication Instructions Recorded Confirmed Type Potassium Chloride ER [K-Dur 20] 20 meq PO BID 01/12/19 06/19/23 History Aspirin 81 mg PO DAILY 09/15/19 06/19/23 History Sennosides [Senna] 8.6 mg PO BID 01/31/20 06/19/23 History Atorvastatin [Lipitor] 10 mg PO HS 09/22/21 06/19/23 History Diroximel Fumarate [Vumerity] 462 mg PO BID 09/22/21 06/19/23 History Levothyroxine Sodium [Synthroid] 75 mcg PO HS 09/22/21 06/19/23 History Ascorbic Acid [Vitamin C] 500 mg PO DAILY 05/14/22 06/19/23 History Furosemide [Lasix] 20 mg PO DAILY 05/14/22 06/19/23 History Pro-Stat Liquid (Amino 30 ml PO TID@0700,1100,1600 05/14/22 06/19/23 History Acids-Protein Hydrolysate) Baclofen 10 mg PO TID@0700,1300,1900 12/22/22 06/19/23 History Multivitamins, Thera [Multivitamin 1 tab PO DAILY 12/22/22 06/19/23 History (formulary)] Gabapentin [Neurontin] 300 mg PO BID #6 cap 12/28/22 06/19/23 Rx HYDROcodone/APAP 5-325MG [[place] 1 tab PO QID@07,13,19,23 #10 tab 12/28/22 06/19/23 Rx 5-325] Acetaminophen [Tylenol Extra 500 mg PO ONCE 06/19/23 06/19/23 History Strength] Folic Acid 0.4 mg PO BID 06/19/23 06/19/23 History Lansoprazole [Prevacid] 15 mg PO DAILY 06/19/23 06/19/23 History Naloxone HCl 0.4 mg SQ DIRECTED PRN 06/19/23 06/19/23 History Naloxone HCl [Narcan] 4 mg NASAL DIRECTED PRN 06/19/23 06/19/23 History Nitroglycerin Sl Tabs [Nitrostat] 0.4 mg SUBLINGUAL ONCE 06/19/23 06/19/23 History Allergies Allergy/AdvReac Type Severity Reaction Status Date / Time adhesive tape Allergy Rash/Hives Verified 06/19/23 09:49 cinnamon Allergy Rash/Hives Verified 06/19/23 09:49 Physical Exam Vitals: Vital Signs Temp Pulse Resp BP Pulse Ox 06/19/23 11:00 118 H 16 120/70 99 06/19/23 10:00 120 H 20 133/71 99 06/19/23 09:52 123 H 16 128/79 97 06/19/23 08:58 120 H 22 123/53 94 L 06/19/23 07:49 101.1 F H 117 H 28 H 135/61 98 06/19/23 06:00 116 H 18 129/70 98 06/19/23 05:27 107 H 19 113/59 06/19/23 03:08 105 H 18 122/80 06/19/23 02:35 111 H 18 129/84 06/19/23 01:04 99.1 F 107 H 19 124/78 100 Intake and Output 06/18/23 06/19/23 06/19/23 22:59 06:59 14:59 Other: Weight 115.212 kg Results CBC & Chem 7: 06/19/23 03:18 06/19/23 02:33 Labs: Abnormal Lab Results - Last 24 Hours (Table) 06/19/23 06/19/23 06/19/23 Range/Units 02:33 03:08 03:18 RDW 16.2 H (11.5-15.5) % Neutrophils # 8.7 H (1.3-7.7) k/uL Lymphocytes # 0.6 L (1.0-4.8) k/uL BUN 36 H (7-17) mg/dL Glucose 173 H (74-99) mg/dL Urine Appearance Turbid H (Clear) Urine pH 8.5 H (5.0-8.0) Urine Protein 2+ H (Negative) Urine Blood Moderate H (Negative) Urine Nitrite Positive H (Negative) Ur Leukocyte Esterase Large H (Negative) Urine RBC 66 H (0-5) /hpf Urine WBC 58 H (0-5) /hpf Urine Bacteria Moderate H (None) /hpf Urine Mucus Occasional H (None) /hpf
[2023-06-19] MEDS: ASPIRIN 81 MG PO SCH (13:19)
[2023-06-19] MEDS: HYDROcodone/APAP 5-325MG 1 EACH TAB PO SCH (13:20)
[2023-06-19] MEDS: PANTOPRAZOLE 40 MG TABLET PO SCH (13:21)
[2023-06-19] MEDS: BACLOFEN 10 MG TAB PO SCH (13:21)
--- NOTE | 2023-06-19 13:28 | US ---
EXAMINATION TYPE: US venous doppler duplex [facility] DATE OF EXAM: 06/19/2023 1:09 PM COMPARISON: NONE CLINICAL INDICATION: Female, 53 years old with history of swelling,; Swelling, redness and pain to le gs SIDE PERFORMED: Bilateral TECHNIQUE: The lower extremity deep venous system is examined utilizing real time linear array sonog jake with graded compression, doppler sonography and color-flow sonography. VESSELS IMAGED: Common Femoral Vein Deep Femoral Vein Greater Saphenous Vein * Femoral Vein Popliteal Vein Small Saphenous Vein * Proximal Calf Veins (* superficial vessels) Limited exam due to pt morbid obesity and immobility due to MS Right Leg: Visualized portions appear negative for DVT, Right EIV and popliteal veins not visualized due to limitations listed above Left Leg: Visualized portions appear negative for DVT, Left EIV and popliteal veins not visualized d ue to limitations listed above IMPRESSION: 1. Bilateral lower extremity ultrasound negative for deep venous thrombosis. 2. There is limitation of the examination due to patient body habitus and limitation in motion.
[2023-06-19] MEDS: MULTIVITAMINS, THERA 1 EACH TAB PO SCH (13:30)
[2023-06-19] MEDS: CEFEPIME 2 GM in SODIUM CHLORIDE 0.9% 100 ML IVPB SCH (17:06)
[2023-06-19] MEDS: GABAPENTIN 300 MG CAP PO SCH (20:55)
[2023-06-19] MEDS: SENNOSIDES 8.6 MG TAB PO SCH (20:56)
[2023-06-19] MEDS: ACETAMINOPHEN TAB 325 MG TAB PO PRN (20:56)
[2023-06-19] MEDS: FOLIC ACID 1 MG TAB PO SCH (20:56)
[2023-06-19] MEDS: LEVOTHYROXINE 75 MCG TAB PO SCH (20:57)
[2023-06-19] MEDS: ATORVASTATIN 10 MG TAB PO SCH (20:57)
[2023-06-19] MEDS: POTASSIUM CHLORIDE ER 20 MEQ TAB.ER PO SCH (20:57)
[2023-06-19] MEDS: DIROXIMEL FUMARATE 231 MG PO SCH (20:58)
[2023-06-19] MEDS ORDERED: VANCOMYCIN 1,750 MG in SODIUM CHLORIDE 0.9% 500 ML 500 ML IVPB SCH (21:00)
--- NOTE | 2023-06-19 23:18 | P.CONS ---
History of Present Illness - Reason for Consult Consult date: 06/19/23 Pneumonia, recurrent UTIs Requesting physician: Paris Osorio - Chief Complaint Fever x 1 day - History of Present Illness Patient is a 53-year-old female with a past medical history significant for MS chronic bedbound state did have a history of sacral and bila teral gluteal pressure ulcer with evidence of osteomyelitis in the past history of recurrent catheter assisted UTI and hyperlipidemia patient has been sent to the ER for evaluation of left lower extremity swelling and pain patient symptom apparently has been getting worse for the last few days has been complaining of pain moderate in intensity with associated swelling redness did not have an open wound or any drainage patient denies having any headache or URI symptoms no chest pain shortness of breath cough no abdominal pain and no diarrhea patient did have a fever of 101.1 F, patient was tachycardic but not hypotensive or hypoxic and no need for supplemental oxygen patient did have a white count of 10.3 creatinine 0.72 liver isms are normal urine has been positive patient was started on vancomycin infectious disease was consulted for further management of antibiotic therapy Review of Systems Positive point and negatives has been mentioned in the HPI, complete review of systems was performed and all other systems are negative Past Medical History Past Medical History: Hyperlipidemia, Musculoskeletal Disorder, Neurologic Disorder, Pneumonia, Renal Disease, Skin Disorder Additional Past Medical History / Comment(s): Multiple sclerosis stage IV- wheelchair bound, L side weaker than right, past renal failure with hemodialysis-last time was July 2016, neurogenic bladder with indwelling [place], past sepsis, iron deficiency anemia, wounds present on bilateral gluteal folds and sacral area History of Any Multi-Drug Resistant Organisms: ESBL, MRSA, VRE Year Discovered:: 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;03/08/20 MRSA; ESBL 08/27/17 MDRO Source:: Urine-VRE; Buttock MRSA; ESBL-Urine Past Surgical History: No Surgical Hx Reported Additional Past Surgical History / Comment(s): LP, debridement decubitus sacral ulcer, hemodialysis cath since removed, picc lines Past Anesthesia/Blood Transfusion Reactions: No Reported Reaction Additional Past Anesthesia/Blood Transfusion Reaction / Comm: NEVER HAD ANY GENERAL ANES Past Psychological History: No Psychological Hx Reported Smoking Status: Never smoker Past Alcohol Use History: None Reported Past Drug Use History: None Reported - Past Family History Father History Unknown: Yes Additional Family Medical History / Comment(s): PTS DAD LIVED IN [place]- SHE'S NOT SURE WHAT HE FROM. HE HAD HYPOTENSION. Mother Family Medical History: Coronary Artery Disease (CAD), Diabetes Mellitus, Hyperlipidemia, Hypertension Additional Family Medical History / Comment(s): CARDIAC STENTS Medications and Allergies Home Medications Medication Instructions Recorded Confirmed Type Potassium Chloride ER [K-Dur 20] 20 meq PO BID 01/12/19 06/19/23 History Aspirin 81 mg PO DAILY 09/15/19 06/19/23 History Sennosides [Senna] 8.6 mg PO BID 01/31/20 06/19/23 History Atorvastatin [Lipitor] 10 mg PO HS 09/22/21 06/19/23 History Diroximel Fumarate [Vumerity] 462 mg PO BID 09/22/21 06/19/23 History Levothyroxine Sodium [Synthroid] 75 mcg PO HS 09/22/21 06/19/23 History Ascorbic Acid [Vitamin C] 500 mg PO DAILY 05/14/22 06/19/23 History Furosemide [Lasix] 20 mg PO DAILY 05/14/22 06/19/23 History Pro-Stat Liquid (Amino 30 ml PO TID@0700,1100,1600 05/14/22 06/19/23 History Acids-Protein Hydrolysate) Baclofen 10 mg PO TID@0700,1300,1900 12/22/22 06/19/23 History Multivitamins, Thera [Multivitamin 1 tab PO DAILY 12/22/22 06/19/23 History (formulary)] Acetaminophen [Tylenol Extra 500 mg PO ONCE 06/19/23 06/19/23 History Strength] Folic Acid 0.4 mg PO BID 06/19/23 06/19/23 History Lansoprazole [Prevacid] 15 mg PO DAILY 06/19/23 06/19/23 History Naloxone HCl 0.4 mg SQ DIRECTED PRN 06/19/23 06/19/23 History Nitroglycerin Sl Tabs [Nitrostat] 0.4 mg SUBLINGUAL ONCE 06/19/23 06/19/23 History Gabapentin [Neurontin] 300 mg PO BID 3 Days #6 cap 06/25/23 Rx HYDROcodone/APAP 5-325MG [[place] 1 tab PO QID@07,,, 3 Days 06/25/23 Rx 5-325] #10 tab Vancomycin 1,500 mg IVPB Q24HR #12 each 06/25/23 Rx Allergies Allergy/AdvReac Type Severity Reaction Status Date / Time adhesive tape Allergy Rash/Hives Verified 06/19/23 09:49 cinnamon Allergy Rash/Hives Verified 06/19/23 09:49 Physical Exam Vitals: Vital Signs Temp Pulse Resp BP Pulse Ox 06/19/23 13:00 123 H 20 122/74 98 06/19/23 12:00 129 H 21 125/69 95 06/19/23 11:00 118 H 16 120/70 99 06/19/23 10:00 120 H 20 133/71 99 06/19/23 09:52 123 H 16 128/79 97 06/19/23 08:58 120 H 22 123/53 94 L 06/19/23 07:49 101.1 F H 117 H 28 H 135/61 98 06/19/23 06:00 116 H 18 129/70 98 06/19/23 05:27 107 H 19 113/59 06/19/23 03:08 105 H 18 122/80 06/19/23 02:35 111 H 18 129/84 06/19/23 01:04 99.1 F 107 H 19 124/78 100 Intake and Output 06/18/23 06/19/23 06/19/23 22:59 06:59 14:59 Output Total 900 Balance -900 Output: Urine 900 Uretheral ([place]) 900 Other: Weight 115.212 kg GENERAL DESCRIPTION: Middle-aged female lying in bed, no distress. No tachypnea or accessory muscle of respiration use. HEENT: Shows Pallor , no scleral icterus. Oral mucous membrane is dry. NECK: Trachea central, no thyromegaly. LUNGS: Unlabored breathing. Clear to auscultation anteriorly. No wheeze or crackle. HEART: S1, S2, regular rate and rhythm. No loud murmur ABDOMEN: Soft, no tenderness , EXTREMITIES: Diffuse swelling redness to left lower extremity which is warm and tender to touch SKIN: Patient did have a sacral and left gluteal pressure ulcer wound base with no slough tissue no surrounding redness or any foul-smelling drainage NEUROLOGICAL: The patient is awake, alert, oriented x3, mood and affect normal. Results CBC & Chem 7: 06/22/23 09:23 04/05/24 06:47 Labs: Abnormal Lab Results - Last 24 Hours (Table) 06/19/23 06/19/23 06/19/23 Range/Units 02:33 03:08 03:18 RDW 16.2 H (11.5-15.5) % Neutrophils # 8.7 H (1.3-7.7) k/uL Lymphocytes # 0.6 L (1.0-4.8) k/uL D-Dimer (<0.60) mg/L FEU BUN 36 H (7-17) mg/dL Glucose 173 H (74-99) mg/dL Urine Appearance Turbid H (Clear) Urine pH 8.5 H (5.0-8.0) Urine Protein 2+ H (Negative) Urine Blood Moderate H (Negative) Urine Nitrite Positive H (Negative) Ur Leukocyte Esterase Large H (Negative) Urine RBC 66 H (0-5) /hpf Urine WBC 58 H (0-5) /hpf Urine Bacteria Moderate H (None) /hpf Urine Mucus Occasional H (None) /hpf 06/19/23 Range/Units 13:20 RDW (11.5-15.5) % Neutrophils # (1.3-7.7) k/uL Lymphocytes # (1.0-4.8) k/uL D-Dimer 1.57 H (<0.60) mg/L FEU BUN (7-17) mg/dL Glucose (74-99) mg/dL Urine Appearance (Clear) Urine pH (5.0-8.0) Urine Protein (Negative) Urine Blood (Negative) Urine Nitrite (Negative) Ur Leukocyte Esterase (Negative) Urine RBC (0-5) /hpf Urine WBC (0-5) /hpf Urine Bacteria (None) /hpf Urine Mucus (None) /hpf Assessment and Plan (1) Left leg cellulitis Current Visit: No Status: Acute Code(s): L03.116 - CELLULITIS OF LEFT LOWER LIMB SNOMED Code(s): 82715989823472939 (2) Pressure ulcer of coccygeal region, stage 4 Current Visit: No Status: Acute Code(s): L89.154 - PRESSURE ULCER OF SACRAL REGION, STAGE 4 SNOMED Code(s): 54938433407182113 (3) Pressure ulcer of left buttock, stage 3 Current Visit: No Status: Acute Code(s): L89.323 - PRESSURE ULCER OF LEFT BUTTOCK, STAGE 3 SNOMED Code(s): 17672025600152 (4) Sepsis Current Visit: No Status: Acute Code(s): A41.9 - SEPSIS, UNSPECIFIED ORGANISM SNOMED Code(s): 58862688 (5) Urinary tract infection Current Visit: No Status: Acute Code(s): N39.0 - URINARY TRACT INFECTION, SITE NOT SPECIFIED SNOMED Code(s): 67896020 Plan: 1patient presented hospital with sepsis in this patient who did have a fever tachycardia source is likely left lower extremity cellulitis however the patient also have a significantly positive UA and a component of catheter associated urinary tract excluded patient secondary and gluteal wounds are healing well without evidence of any cellulitis and clinically not the source of the sepsis 2-discontinue vancomycin 3-we will start the patient on cefepime 2 g every 8 hours to cover for both left lower extremity cellulitis as well as UTI We will follow on clinical condition and cultures to further adjust medication if needed Thank you for this consultation we will follow the patient along with you Dictation was produced using [employer] dictation software. please excuse any grammatical, word or spelling errors. Time with Patient: Greater than 30
[2023-06-20] MEDS: ASCORBIC ACID 500 MG TAB PO SCH (08:25)
[2023-06-20 09:43] LABS: BUN/Creat Ratio 27.22 Ratio (12.00-20.00); Blood Urea Nitrogen 24.5 mg/dL (9.0-27.0); Calcium 9.3 mg/dL (8.7-10.3); Carbon Dioxide 22.5 mmol/L (21.6-31.8); Chloride 112 mmol/L (96-109); Glucose 151 mg/dL (70-110); Potassium 4.7 mmol/L (3.5-5.5); Sodium 147 mmol/L (135-145)
[2023-06-20 11:14] LABS: Basophils # (A) 0.04 X 10*3/uL (0.00-0.10); Basophils % (A) 0.4 %; Eosinophils # (A) 0.05 X 10*3/uL (0.04-0.35); Eosinophils % (A) 0.5 %; HGB 10.8 g/dL (12.0-15.0); Lymphocytes # (A) 0.62 X 10*3/uL (0.90-5.00); Lymphocytes % (A) 6.3 %; MCH 27.6 pg (27.0-32.0); MCHC 30.9 g/dL (32.0-37.0); MCV 89.3 FL (80.0-97.0); Mean Platelet Volume 10.6 FL (9.5-12.2); Monocytes # (A) 0.64 X 10*3/uL (0.20-1.00); Monocytes % (A) 6.5 %; NRBC Per 100 WBC 0 X 10*3/uL (0.00-0.01); Neutrophils # (A) 8.46 X 10*3/uL (1.80-7.70); Neutrophils % (A) 85.7 %; Platelet Count 248 X 10*3/uL (140-440); RBC 3.92 X 10*6/uL (4.10-5.20); RDW 17.2 % (11.5-14.5); WBC 9.87 X 10*3/uL (4.50-10.00)
--- NOTE | 2023-06-20 12:03 | CT ---
CTA CHEST EXAMINATION TYPE: CT chest angio for PE DATE OF EXAM: 06/20/2023 INDICATION: dyspnea CT DLP: 1061.6 mGycm, Automated exposure control for dose reduction was used. CONTRAST: Patient injected with 100 mL of Isovue 370. COMPARISON: None TECHNIQUE: CT of the chest is performed on a spiral scan at 2 mm thick sections. Study is performed with intravenous contrast timed for evaluation for pulmonary embolism. This will limit additional po rtions of the evaluation. 3-D MIP images reconstructed by the technologist are reviewed on the compu ter in the coronal and sagittal planes. FINDINGS: No persistent filling defects are evident to suggest an acute pulmonary embolism. No mediastinal or hilar adenopathy enlarged by CT criteria is evident. The ascending aorta diameter at the level of the main pulmonary artery is a 0.5 cm. The main pulmona ry artery diameter at the bifurcation is 3.5 cm. Lung windows are clear. Limited CT sections were through the upper abdomen. Upper abdomen appears unremarkable. IMPRESSION: 1. Acute pulmonary embolism. 2. No acute pulmonary process.
--- NOTE | 2023-06-20 13:28 | P.PN ---
Subjective Progress Note Date: 06/20/23 patient 53-year-old lady with past medical history significant for MS who is [facility] resident brought to the ER for left lower extremity swelling and pain. Patient is alert, and able to answer questions. Patient stated that for the last few days she reports that her left leg was getting swollen, she was having pain in the left leg as well. She also noticed the left leg was red in color. Denies any fever or chills. Denies any shortness of breath. There is no complaint of cough. Patient did complain of lethargy and weakness. Because of this complaint she was brought to the ER Initial lab work done in the ER showed WBC 10.3, hemoglobin 6, platelet count 261, sodium 144, potassium 4.5, BUN 36, creatinine 0.72, AST 20, ALT 24 UA positive for large amount of leukocyte Estrace, urine WBC 58, nitrite positive Knee x-ray done showed no acute finding of the right knee Chest x-ray done in the ER showed mild increased density in the left lung base representing infiltration atelectasis Patient admitted to internal medicine service 06/19. Patient seen and examined. Patient continues to have fevers, Tmax of 102.3 last night. Blood culture positive for gram-positive cocci most likely MRSA, started on vancomycin. REVIEW OF SYSTEMS: CONSTITUTIONAL: Mentioned above CARDIOVASCULAR: No chest pain, no palpitations, no syncope. PULMONARY: No shortness of breath, no cough, GASTROINTESTINAL: No diarrhea, no nausea, no vomiting, no abdominal pain. NEUROLOGICAL: No headaches, no weakness, PHYSICAL EXAMINATION: GENERAL: The patient is alert and oriented x3, not in any acute distress. Well developed, well nourished. HEENT: Pupils are round and equally reacting to light. EOMI. No scleral icterus. No conjunctival pallor. Normocephalic, atraumatic. No pharyngeal erythema. No thyromegaly. CARDIOVASCULAR: S1 and S2 present. No murmurs, rubs, or gallops. PULMONARY: Chest is clear to auscultation, no wheezing or crackles. ABDOMEN: Soft, nontender, nondistended, normoactive bowel sounds. No palpable organomegaly. MUSCULOSKELETAL: No joint swelling or deformity. EXTREMITIES: Lower extremity erythema has improved NEUROLOGICAL: Gross neurological examination did not reveal any focal deficits. SKIN: No rashes. Assessment and plan Left leg cellulitis Sepsis UTI Tachycardia Chronic anemia Severe MS, not in exacerbation Hypothyroid Dyslipidemia Monitor vital signs Monitor CBC Monitor CMP Continue telemetry monitoring Follow-up on blood cultures, growing MRSA Follow-up on urine culture continue IV cefepime vancomycin Ultrasound lower extremity negative for DVT ordered CT angio chest 2D echo ordered ID following Labs and medication were reviewed.. Continue same treatment. Continue with symptomatic treatment. Resume home medication. Monitor labs and vitals. DVT and GI prophylaxis. Further recommendations as per clinical course of the patient Dictation was produced using [employer] dictation software. please excuse any grammatical, word or spelling errors. Objective - Vital Signs Vital signs: Vital Signs Temp 99.7 F H 06/20/23 07:56 Pulse 115 H 06/20/23 07:56 Resp 19 06/20/23 07:56 BP 105/73 06/20/23 07:56 Pulse Ox 93 L 06/20/23 07:56 FiO2 Intake & Output 06/19/23 06/20/23 06/20/23 18:59 06:59 18:59 Output Total 1000 375 Balance -1000 -375 Weight 115.212 kg Output: Urine 1000 375 Uretheral ([place]) 1000 Other: Voiding Method Indwelling Catheter - Labs CBC & Chem 7: 06/20/23 06:19 06/20/23 06:19 Labs: Abnormal Lab Results - Last 24 Hours (Table) 06/19/23 06/20/23 Range/Units 13:20 06:19 D-Dimer 1.57 H (<0.60) mg/L FEU Sodium 147 H (135-145) mmol/L Chloride 112 H (96-109) mmol/L Anion Gap 12.50 H (4.00-12.00) mmol/L BUN/Creatinine Ratio 27.22 H (12.00-20.00) Ratio Glucose 151 H (70-110) mg/dL Microbiology - Last 24 Hours (Table) 06/19/23 02:15 Blood Culture Gram Stain - Preliminary Blood 06/19/23 02:00 Blood Culture Gram Stain - Preliminary Blood
--- NOTE | 2023-06-20 16:26 | P.PN ---
Subjective Progress Note Date: 06/20/23 Principal diagnosis: Reason for follow-up is left lower extremity cellulitis and bacteremia Patient is a 53-year-old female with a past medical history significant for MS chronic bedbound state did have a history of sacral and bilateral gluteal pressure ulcer and catheterizes UTI patient to be sent to the hospital for evaluation of left lower extremity cellulitis. On today's evaluation that is 06/20/2023,the patient fever pattern has improved did have a low-grade fever of 99.7 this morning patient is tachycardic but not hypotensive or hypoxic, patient denies having any chest pain shortness of breath or cough no abdominal pain or any worsening pain to the left lower extremity complaining of some pain to the left knee and also concerned about unable to get an IV as she has been told multiple times. Patient white count is 9.87, creatinine 0.9 blood culture growing Staph aureus Objective - Vital Signs Vital signs: Vital Signs Temp 99.7 F H 06/20/23 07:56 Pulse 107 H 06/20/23 08:00 Resp 19 06/20/23 08:00 BP 105/73 06/20/23 07:56 Pulse Ox 93 L 06/20/23 07:56 FiO2 Intake & Output 06/19/23 06/20/23 06/20/23 18:59 06:59 18:59 Output Total 1000 375 700 Balance -1000 -375 -700 Weight 115.212 kg Output: Urine 1000 375 700 Uretheral (Chaves) 1000 Other: Voiding Method Indwelling Catheter Indwelling Catheter - Exam GENERAL DESCRIPTION: Middle-aged female lying in bed in no distress RESPIRATORY SYSTEM: Unlabored breathing , decreased breath sounds at bases HEART: S1 S2 regular rate and rhythm , ABDOMEN: Soft , no tenderness EXTREMITIES: Left leg redness slightly decreased - Labs CBC & Chem 7: 06/20/23 06:19 06/20/23 06:19 Labs: Abnormal Lab Results - Last 24 Hours (Table) 06/20/23 06/20/23 Range/Units 06:19 06:19 RBC 3.92 L (4.10-5.20) X 10*6/uL Hgb 10.8 L (12.0-15.0) g/dL Hct 35.0 L (37.2-46.3) % MCHC 30.9 L (32.0-37.0) g/dL RDW 17.2 H (11.5-14.5) % Immature Gran # 0.06 H (0.00-0.04) X 10*3/uL Neutrophils # 8.46 H (1.80-7.70) X 10*3/uL Lymphocytes # 0.62 L (0.90-5.00) X 10*3/uL Sodium 147 H (135-145) mmol/L Chloride 112 H (96-109) mmol/L Anion Gap 12.50 H (4.00-12.00) mmol/L BUN/Creatinine Ratio 27.22 H (12.00-20.00) Ratio Glucose 151 H (70-110) mg/dL Microbiology - Last 24 Hours (Table) 06/19/23 02:00 Blood Culture Gram Stain - Preliminary Blood 06/19/23 02:15 Blood Culture Gram Stain - Preliminary Blood Assessment and Plan (1) MRSA bacteremia Current Visit: Yes Status: Acute Code(s): R78.81 - BACTEREMIA; B95.62 - METHICILLIN RESIS ST[facility] Code[facility]s): 85360022628986036 (2) Left leg cellulitis Current Visit: No Status: Acute Code(s): L03.116 - CELLULITIS OF LEFT LOWER LIMB SNOMED Code(s): 19673768652731093 (3) Urinary tract infection Current Visit: No Status: Acute Code(s): N39.0 - URINARY TRACT INFECTION, SITE NOT SPECIFIED SNOMED Code(s): 34140261 Plan: 1patient presented hospital with sepsis in this patient who did have a fever tachycardia source is likely left lower extremity cellulitis however the patient also have a significantly positive UA and a component of catheter associated urinary tract excluded patient secondary and gluteal wounds are healing well without evidence of any cellulitis and clinically not the source of the sepsis 2-patient to continue with cefepime 2 g every 8 hours to cover for catheter associated UTI while waiting for the culture finalize 3patient did have a complication of developing bacteremia secondary MRSA close possible left leg cellulitis vancomycin added we will repeat the blood cultures to document clearance of her bacteremia Dictation was produced using [employer] dictation software. please excuse any grammatical, word or spelling errors. Time with Patient: Less than 30
[2023-06-20] MEDS: VANCOMYCIN 1,750 MG in SODIUM CHLORIDE 0.9% 500 ML 500 ML IVPB SCH ×2 (17:17→17:47)
[2023-06-21 08:18] LABS: African American GFR (CKD) >90 (>60 ml/min/1.73 sqM); Non-African American GFR(CKD) >90 (>60 ml/min/1.73 sqM)
--- NOTE | 2023-06-21 12:33 | P.PN ---
Subjective patient 53-year-old lady with past medical history significant for MS who is [facility] resident brought to the ER for left lower extremity swelling and pain. Patient is alert, and able to answer questions. Patient stated that for the last few days she reports that her left leg was getting swollen, she was having pain in the left leg as well. She also noticed the left leg was red in color. Denies any fever or chills. Denies any shortness of breath. There is no complaint of cough. Patient did complain of lethargy and weakness. Because of this complaint she was brought to the ER Initial lab work done in the ER showed WBC 10.3, hemoglobin 6, platelet count 261, sodium 144, potassium 4.5, BUN 36, creatinine 0.72, AST 20, ALT 24 UA positive for large amount of leukocyte Estrace, urine WBC 58, nitrite positive Knee x-ray done showed no acute finding of the right knee Chest x-ray done in the ER showed mild increased density in the left lung base representing infiltration atelectasis Patient admitted to internal medicine service 06/19. Patient seen and examined. Patient continues to have fevers, Tmax of 102.3 last night. Blood culture positive for gram-positive cocci most likely MRSA, started on vancomycin. 06/21/2023 Patient lying in bed comfortable She still feels generally weak No chest pain or dyspnea She denies significant coronary symptoms today but states her urine is dark Both legs are swollen and mildly warm and tender, more on the left side Chaves catheter in place She is hemodynamically stable, fever subsided Mild anemia with hemoglobin 10.8 Creatinine is stable She remains on cefepime and IV vancomycin and normal saline Review of systems CONSTITUTIONAL: No fever, no malaise, no fatigue. HEENT: No recent visual problems or hearing problems. Denied any sore throat. CARDIOVASCULAR: No orthopnea, PND, no palpitations, no syncope. PULMONARY: No shortness of breath, no cough, no hemoptysis. GASTROINTESTINAL: No diarrhea, no nausea, no vomiting, no abdominal pain. Normoactive bowel sounds. NEUROLOGICAL: No headaches, no weakness, no numbness. ENDOCRINE: Denies any polyuria or polydipsia. Active Medications Generic Name Dose Route Start Last Admin Trade Name Freq PRN Reason Stop Dose Admin Acetaminophen 650 mg 06/19/23 06:23 06/19/23 20:56 Acetaminophen Tab 325 Mg Tab PO 650 mg Q6HR PRN Administration Mild Pain or Fever > 100.5 Hydrocodone Bitart/Acetaminophen 1 each 06/19/23 13:00 06/21/23 06:08 Hydrocodone/Apap 5-325mg 1 Each Tab PO 1 each QID@07,13,,23 YANIRA Administration Ascorbic Acid 500 mg 06/20/23 09:00 06/21/23 08:54 Ascorbic Acid 500 Mg Tab PO 500 mg DAILY YANIRA Administration Aspirin 81 mg 06/19/23 12:15 06/21/23 08:54 Aspirin 81 Mg PO 81 mg DAILY YANIRA Administration Atorvastatin Calcium 10 mg 06/19/23 21:00 06/20/23 20:46 Atorvastatin 10 Mg Tab PO 10 mg HS YANIRA Administration Baclofen 10 mg 06/19/23 13:00 06/21/23 06:09 Baclofen 10 Mg Tab PO 10 mg TID@0700,1300,1900 YANIRA Administration Folic Acid 0.5 mg 06/19/23 21:00 06/21/23 08:54 Folic Acid 1 Mg Tab PO 0.5 mg BID YANIRA Administration Furosemide 40 mg 06/21/23 12:24 Furosemide 10 Mg/Ml 4 Ml Vial IV 06/21/23 12:25 ONCE STA Gabapentin 300 mg 06/19/23 21:00 06/21/23 08:54 Gabapentin 300 Mg Cap PO 300 mg BID YANIRA Administration Sodium Chloride 1,000 mls @ 75 mls/hr 06/19/23 06:30 06/21/23 05:02 Saline 0.9% IV Not Given .[id number] YANIRA Cefepime HCl 2 gm/ Sodium 100 mls @ 25 mls/hr 06/19/23 16:00 06/21/23 08:54 Chloride IVPB 25 mls/hr Q8HR YANIRA Administration Protocol Vancomycin HCl 1,750 mg/ 500 mls @ 167 mls/hr 06/20/23 18:00 06/21/23 05:02 Sodium Chloride IVPB 167 mls/hr Q12H YANIRA Administration Levothyroxine Sodium 75 mcg 06/19/23 21:00 06/20/23 20:46 Levothyroxine 75 Mcg Tab PO 75 mcg HS YANIRA Administration Miscellaneous Information 0 each 06/22/23 05:00 Vancomycin Trough Due 1 Each Misc MISCELLANE 06/22/23 05:01 DIRECTED ONE Multivitamins 1 each 06/19/23 12:15 06/21/23 08:54 Multivitamins, Thera 1 Each Tab PO 1 each DAILY YANIRA Administration Naloxone HCl 0.2 mg 06/19/23 06:23 Naloxone 0.4 Mg/Ml 1 Ml Vial IV Q2M PRN Opioid Reversal Non-Formulary Medication 462 mg 06/19/23 21:00 06/21/23 08:54 Diroximel Fumarate [Vumerity] PO Not Given BID YANIRA Pantoprazole Sodium 40 mg 06/19/23 12:15 06/21/23 06:08 Pantoprazole 40 Mg Tablet PO 40 mg [id number] YANIRA Administration Potassium Chloride 20 meq 06/19/23 21:00 06/21/23 08:54 Potassium Chloride Er 20 Meq Tab.Er PO 20 meq BID YANIRA Administration Senna 8.6 mg 06/19/23 21:00 06/21/23 08:54 Sennosides 8.6 Mg Tab PO 8.6 mg BID YANIRA Administration Objective - Vital Signs Vital signs: Vital Signs Temp 98.6 F 06/21/23 07:49 Pulse 93 06/21/23 07:49 Resp 17 06/21/23 07:49 BP 124/82 06/21/23 07:49 Pulse Ox 94 L 06/21/23 07:49 FiO2 Intake & Output 06/20/23 06/21/23 06/21/23 18:59 06:59 18:59 Output Total 700 1500 Balance -700 -1500 Output: Urine 700 1500 Other: Voiding Method Indwelling Catheter Indwelling Catheter Indwelling Catheter - Exam -GENERAL: The patient is alert and oriented x3, not in any acute distress. Obese HEENT: Pupils are round and equally reacting to light. EOMI. No scleral icterus. No conjunctival pallor. Normocephalic, atraumatic. No pharyngeal erythema. No thyromegaly. CARDIOVASCULAR: S1 and S2 present. No murmurs, rubs, or gallops. PULMONARY: Chest is clear to auscultation, no wheezing , no crackles. -ABDOMEN: Soft, nontender, nondistended, normoactive bowel sounds. No palpable organomegaly. Chaves catheter in place MUSCULOSKELETAL: No joint swelling or deformity. -EXTREMITIES: No cyanosis, clubbing, bilateral leg edema. Slightly pink and warm NEUROLOGICAL: Gross neurological examination did not reveal any focal deficits. SKIN: No rashes. no petechiae. - Labs CBC & Chem 7: 06/20/23 06:19 06/21/23 07:25 Labs: Microbiology - Last 24 Hours (Table) 06/19/23 02:15 Blood Culture Gram Stain - Preliminary Blood Blood Culture - Preliminary Presumptive MRSA 06/19/23 02:00 Blood Culture Gram Stain - Preliminary Blood Blood Culture - Preliminary Presumptive MRSA 06/19/23 21:31 Gram Stain - Preliminary Buttock Assessment and Plan Assessment: MRSA bacteremia/septicemia Left leg cellulitis UTI Bicytopenia with anemia and thrombocytopenia Severe MS, not in exacerbation Hypothyroid Dyslipidemia Plan: Continue with cefepime and IV vancomycin Continue with normal saline 75 mL/h Infectious disease consult Labs and medication were reviewed.. Continue same treatment. Continue with symptomatic treatment. Resume home medication. Monitor labs and vitals. DVT and GI prophylaxis. Further recommendations as per clinical course of the patient DVT prophylaxis: Subcutaneous heparin GI Prophylaxis: Pepcid PT/OT: Pending Prognosis is guarded
[2023-06-21] MEDS: HEPARIN SODIUM,PORCINE 5,000 UNIT/ML 1 ML VIAL SQ SCH (13:37)
[2023-06-21] MEDS: FUROSEMIDE 10 MG/ML 4 ML VIAL IV STA (13:37)
--- NOTE | 2023-06-21 13:53 | CA ---
Transthoracic Echo Report Name: Rachel Rincon Age: 53 Gender: F : 1970 Exam Date: 06/21/2023 10:25 Exam Location: [facility] Ht (in): 65 Wt (lb): 254 Ordering Physician: Tato Arango MD Attending/Referring Phys: It Software Developer ML Procedure CPT: Indications: bacteremia Cardiac Hx: Technical Quality: Technically difficult study Contrast 1: Definity Total Dose (mL): 3 Contrast 2: Total Dose (mL): MEASUREMENTS (Male / Female) Normal Values 2D ECHO LV Diastolic Diameter PLAX 3.9 cm 4.2 - 5.9 / 3.9 - 5.3 cm LV Systolic Diameter PLAX 3.1 cm IVS Diastolic Thickness 1.1 cm 0.6 - 1.0 / 0.6 - 0.9 cm LVPW Diastolic Thickness 1.3 cm 0.6 - 1.0 / 0.6 - 0.9 cm LV Relative Wall Thickness 0.6 LVOT Diameter 2.2 cm Aortic Root Diameter 2.7 cm LA Systolic Diameter LX 4.1 cm 3.0 - 4.0 / 2.7 - 3.8 cm DOPPLER AV Peak Velocity 175.8 cm/s AV Peak Gradient 12.4 mmHg AV Mean Velocity 115.7 cm/s AV Mean Gradient 6.0 mmHg AV Velocity Time Integral 27.7 cm LVOT Peak Velocity 114.2 cm/s LVOT Peak Gradient 5.2 mmHg LVOT Velocity Time Integral 18.8 cm LVOT Stroke Volume 70.9 cm??? LVOT Stroke Volume Index 32.4 ml/m??? LVOT Cardiac Index 2975.4 cm???/min???m??? AV Area Cont Eq vti 2.6 cm??? AV Area Cont Eq pk 2.5 cm??? Mitral E Point Velocity 120.0 cm/s Mitral A Point Velocity 99.8 cm/s Mitral E to A Ratio 1.2 MV Deceleration Time 78.8 ms PV Peak Velocity 70.0 cm/s PV Peak Gradient 2.0 mmHg FINDINGS Left Ventricle Left ventricular ejection fraction is estimated at 45-50%. Mild to moderate concentric left ventricular hypertrophy. No obvious regional wall motion abnormalities. Right Ventricle Normal right ventricular size. Right Atrium Normal right atrial size. Left Atrium Mildly increased left atrial diameter. Mitral Valve Trace mitral regurgitation. Aortic Valve No aortic valve stenosis or regurgitation. Tricuspid Valve Trace tricuspid regurgitation. Pulmonic Valve No pulmonic regurgitation. Pericardium No pericardial effusion. Aorta Normal size aortic root. CONCLUSIONS Left ventricular ejection fraction 45-50% Mild to moderate increased left ventricular wall thickness Mildly dilated left atrium Trace mitral regurgitation Previewed by: Dr. Luca Mcgill DO (Electronically Signed) Final Date: 21 June 2023 13:52
--- NOTE | 2023-06-21 19:20 | P.PN ---
Subjective Progress Note Date: 06/21/23 Principal diagnosis: Reason for follow-up is left lower extremity cellulitis and bacteremia Patient is a 53-year-old female with a past medical history significant for MS chronic bedbound state did have a history of sacral and bilateral gluteal pressure ulcer and catheterizes UTI patient to be sent to the hospital for evaluation of left lower extremity cellulitis. On today's evaluation that is 06/21/2023, the patient continues to be afebrile, the patient is on room air and breathing comfortably, the Pt denies having any chest pain or cough, the patient denies having any abdominal pain no vomiting or any diarrhea, has been complaining of pain to the left knee area left leg redness has improved. Patient did have a creatinine 0.71 blood culture repeat pending Objective - Vital Signs Vital signs: Vital Signs Temp 98.6 F 06/21/23 07:49 Pulse 93 06/21/23 07:49 Resp 17 06/21/23 07:49 BP 124/82 06/21/23 07:49 Pulse Ox 94 L 06/21/23 07:49 FiO2 Intake & Output 06/20/23 06/21/23 06/21/23 18:59 06:59 18:59 Output Total 700 1500 Balance -700 -1500 Output: Urine 700 1500 Other: Voiding Method Indwelling Catheter Indwelling Catheter Indwelling Catheter - Exam GENERAL DESCRIPTION: Middle-aged female lying in bed in no distress RESPIRATORY SYSTEM: Unlabored breathing , decreased breath sounds at bases HEART: S1 S2 regular rate and rhythm , ABDOMEN: Soft , no tenderness EXTREMITIES: Left leg redness slightly decreased, no redness to the bilateral knee was noticed - Labs CBC & Chem 7: 06/20/23 06:19 06/21/23 07:25 Labs: Microbiology - Last 24 Hours (Table) 06/19/23 02:15 Blood Culture Gram Stain - Preliminary Blood Blood Culture - Preliminary Presumptive MRSA 06/19/23 02:00 Blood Culture Gram Stain - Preliminary Blood Blood Culture - Preliminary Presumptive MRSA 06/19/23 21:31 Gram Stain - Preliminary Buttock Assessment and Plan (1) MRSA bacteremia Current Visit: Yes Status: Acute Code(s): R78.81 - BACTEREMIA; B95.62 - METHICILLIN RESIS STAPH INFCT CAUSING DISEASES [facility]SD [facility] SNOMED Code(s): 85092300369103231 (2) Left leg cellulitis Current Visit: No Status: Acute Code(s): L03.116 - CELLULITIS OF LEFT LOWER LIMB SNOMED Code(s): 13291594653416356 (3) Urinary tract infection Current Visit: No Status: Acute Code(s): N39.0 - URINARY TRACT INFECTION, SITE NOT SPECIFIED SNOMED Code(s): 57853565 Plan: 1patient presented hospital with sepsis in this patient who did have a fever tachycardia source is likely left lower extremity cellulitis however the patient also have a significantly positive UA and a component of catheter associated urinary tract excluded patient secondary and gluteal wounds are healing well without evidence of any cellulitis and clinically not the source of the sepsis 2-patient to continue with cefepime 2 g every 8 hours to cover for catheter associated UTI while waiting for the culture finalize 3patient complaining of pain to the knee however no redness was noticed clinically not behaving as septic arthritis but will benefit from Ortho evaluation possible aspiration 4-we will give the patient vancomycin pharmacy to dose waiting for repeat blood cultures to be negative before placement of a PICC line Dictation was produced using [employer] dictation software. please excuse any grammatical, word or spelling errors. Time with Patient: Less than 30
[2023-06-22] MEDS: VANCOMYCIN TROUGH DUE 1 EACH MISC MISCELLANE ONE (07:37)
[2023-06-22 07:40] LABS: African American GFR (CKD) >90 (>60 ml/min/1.73 sqM); Anion Gap 12 mmol/L; Blood Urea Nitrogen 21 mg/dL (7-17); Carbon Dioxide 18 mmol/L (22-30); Chloride 110 mmol/L (98-107); Glucose 144 mg/dL (74-99); Non-African American GFR(CKD) >90 (>60 ml/min/1.73 sqM); Sodium 140 mmol/L (137-145)
[2023-06-22 08:17] LABS: Potassium 4.8 mmol/L (3.5-5.1)
[2023-06-22] MEDS ORDERED: VANCOMYCIN IV PER PHARMACY 1 EACH MISC MISCELLANE PRN (08:24)
[2023-06-22 09:41] LABS: Basophils % (A) 0 %; Eosinophils # (A) 0.2 k/uL (0-0.7); Eosinophils % (A) 3 %; Hypochromasia Slight; Lymphocytes # (A) 0.7 k/uL (1.0-4.8); Lymphocytes % (A) 11 %; MCH 27.5 pg (25.0-35.0); MCHC 31.3 g/dL (31.0-37.0); Mean Platelet Volume 8.1; Monocytes # (A) 0.3 k/uL (0-1.0); Monocytes % (A) 5 %; Neutrophils # (A) 4.7 k/uL (1.3-7.7); Neutrophils % (A) 77 %; Platelet Count 267 k/uL (150-450); RBC 3.63 m/uL (3.80-5.40); RDW 15.6 % (11.5-15.5)
--- NOTE | 2023-06-22 15:37 | P.PN ---
Subjective Progress Note Date: 06/22/23 Principal diagnosis: Reason for follow-up is left lower extremity cellulitis and bacteremia Patient is a 53-year-old female with a past medical history significant for MS chronic bedbound state did have a history of sacral and bilateral gluteal pressure ulcer and catheterizes UTI patient to be sent to the hospital for evaluation of left lower extremity cellulitis. On today's evaluation that is 06/22/2023, Patient is afebrile patient is currently on room air and denies having any shortness of breath, the patient denies any chest pain or cough, the patient denies any nausea vomiting did not have any abdominal pain and no diarrhea pain to the knee has slightly decreased in the left lower extremity redness slightly decreased. Patient white count is 6.0 creatinine 0.69 Vanco trough is 31.7 Objective - Vital Signs Vital signs: Vital Signs Temp 99.0 F 06/22/23 14:00 Pulse 107 H 06/22/23 14:00 Resp 17 06/22/23 14:00 BP 143/79 06/22/23 14:00 Pulse Ox 95 06/22/23 14:00 FiO2 Intake & Output 06/21/23 06/22/23 06/22/23 18:59 06:59 18:59 Intake Total 500 Output Total 5200 38144 Balance -5200 -48284 500 Intake: Oral 500 Output: Urine 5200 90149 Uretheral (Chaves) 3800 Other: Voiding Method Indwelling Catheter Indwelling Catheter Indwelling Catheter - Exam GENERAL DESCRIPTION: Middle-aged female lying in bed in no distress RESPIRATORY SYSTEM: Unlabored breathing , decreased breath sounds at bases HEART: S1 S2 regular rate and rhythm , ABDOMEN: Soft , no tenderness EXTREMITIES: Left leg redness slightly decreased, no redness to the bilateral knee was noticed - Labs CBC & Chem 7: 06/22/23 09:23 06/22/23 06:48 Labs: Abnormal Lab Results - Last 24 Hours (Table) 06/22/23 06/22/23 06/22/23 Range/Units 06:48 06:48 09:23 RBC 3.63 L (3.80-5.40) m/uL Hgb 10.0 L D (11.4-16.0) gm/dL Hct 32.0 L (34.0-46.0) % RDW 15.6 H (11.5-15.5) % Lymphocytes # 0.7 L (1.0-4.8) k/uL Chloride 110 H (98-107) mmol/L Carbon Dioxide 18 L (22-30) mmol/L BUN 21 H (7-17) mg/dL Glucose 144 H (74-99) mg/dL Vancomycin Trough 31.7 H* ug/mL Microbiology - Last 24 Hours (Table) 06/21/23 07:25 Blood Culture - Preliminary Blood 06/19/23 21:31 Anaerobic Culture - Final Buttock 06/19/23 02:15 Blood Culture Gram Stain - Final Blood Blood Culture - Final Methicillin resist S. aureus 06/19/23 02:00 Blood Culture Gram Stain - Final Blood Blood Culture - Final Methicillin resist S. aureus Molecular ID 06/19/23 21:31 Gram Stain - Preliminary Buttock Wound Culture - Preliminary Gram Neg Bacilli Gram Neg Bacilli#2 Group D Enterococcus Assessment and Plan (1) MRSA bacteremia Current Visit: Yes Status: Acute Code(s): R78.81 - BACTEREMIA; B95.62 - METHICILLIN RESIS STAPH INFCT CAUSING DISEASES CLASSD [facility] SNOMED Code(s): 54003279369935779 (2) Left leg cellulitis Current Visit: No Status: Acute Code(s): L03.116 - CELLULITIS OF LEFT LOWER LIMB SNOMED Code(s): 84277771305514475 (3) Urinary tract infection Current Visit: No Status: Acute Code(s): N39.0 - URINARY TRACT INFECTION, SITE NOT SPECIFIED SNOMED Code(s): 64963923 Plan: 1patient presented hospital with sepsis in this patient who did have a fever tachycardia source is likely left lower extremity cellulitis however the patient also have a significantly positive UA and a component of catheter associated urinary tract excluded patient secondary and gluteal wounds are healing well without evidence of any cellulitis and clinically not the source of the sepsis 2-patient to continue with cefepime 2 g every 8 hours to cover for catheter associated UTI, unfortunately no urine culture were done we will repeat her UA and culture 3patient with MRSA bacteremia source likely left lower extremity cellulitis Vanco trough is high and Vanco dosing to be cut back to keep the trough around 15 and will watch her kidney function closely Dictation was produced using [employer] software. please excuse any grammatical, word or spelling errors. Time with Patient: Less than 30
[2023-06-22 18:10] LABS: Appearance,Urine Cloudy (Clear); Bacteria,Urine Rare /hpf; Bilirubin,Urine Negative (Negative); Blood,Urine Negative (Negative); Color,Urine Colorless; Glucose,Urine (UA) Negative (Negative); Granular Casts,Urine 1 /lpf (0); Hyaline Casts,Urine 1 /lpf (0-2); Ketones,Urine Negative (Negative); Leukocyte Esterase,Urine Large (Negative); Mucus,Urine Rare /hpf; Nitrite,Urine Negative (Negative); PH, Urine 5.5 (5.0-8.0); Protein,Urine 1+ (Negative); RBC,Urine 6 /hpf (0-5); Specific Gravity,Urine 1.015 (1.001-1.035); Squamous Epithelial Cell,Urine 1 /hpf (0-4); Urobilinogen,Urine <2.0 mg/dL (<2.0); WBC,Urine 48 /hpf (0-5)
--- NOTE | 2023-06-22 23:39 | P.PN ---
Subjective patient 53-year-old lady with past medical history significant for MS who is prison resident brought to the ER for left lower extremity swelling and pain. Patient is alert, and able to answer questions. Patient stated that for the last few days she reports that her left leg was getting swollen, she was having pain in the left leg as well. She also noticed the left leg was red in color. Denies any fever or chills. Denies any shortness of breath. There is no complaint of cough. Patient did complain of lethargy and weakness. Because of this complaint she was brought to the ER Initial lab work done in the ER showed WBC 10.3, hemoglobin 6, platelet count 261, sodium 144, potassium 4.5, BUN 36, creatinine 0.72, AST 20, ALT 24 UA positive for large amount of leukocyte Estrace, urine WBC 58, nitrite positive Knee x-ray done showed no acute finding of the right knee Chest x-ray done in the ER showed mild increased density in the left lung base representing infiltration atelectasis Patient admitted to internal medicine service 06/19. Patient seen and examined. Patient continues to have fevers, Tmax of 102.3 last night. Blood culture positive for gram-positive cocci most likely MRSA, started on vancomycin. 06/21/2023 Patient lying in bed comfortable She still feels generally weak No chest pain or dyspnea She denies significant coronary symptoms today but states her urine is dark Both legs are swollen and mildly warm and tender, more on the left side Chaves catheter in place She is hemodynamically stable, fever subsided Mild anemia with hemoglobin 10.8 Creatinine is stable She remains on cefepime and IV vancomycin and normal saline 06/22/2023 Patient feels better No new symptoms and she is hemodynamically stable Labs looks stable as well, anemia slightly worse at 10. Sodium improved back to baseline She remains on IV cefepime and IV vancomycin. She dizziness cefepime to cover gram-negative UTI suspected with her Chaves catheter Repeat urine analysis and urine culture is pending Vancomycin secondary to MRSA bacteremia thought secondary to her infected lower extremities, no significant cellulitis today with treatment, both legs mildly swollen mildly tender and generalized very mild pain,. They are improving. Repeat blood cultures still pending This was discussed with staff Objective - Vital Signs Vital signs: Vital Signs Temp 99.2 F 06/22/23 06:55 Pulse 94 06/22/23 06:55 Resp 16 06/22/23 06:55 BP 137/87 06/22/23 06:55 Pulse Ox 99 06/22/23 06:55 FiO2 Intake & Output 06/21/23 06/22/23 06/22/23 18:59 06:59 18:59 Intake Total 400 Output Total 5200 35669 Balance -5200 -13385 400 Intake: Oral 400 Output: Urine 5200 34167 Uretheral (Chaves) 3800 Other: Voiding Method Indwelling Catheter Indwelling Catheter Indwelling Catheter - Exam -GENERAL: The patient is alert and oriented x3, not in any acute distress. O bese HEENT: Pupils are round and equally reacting to light. EOMI. No scleral icterus. No conjunctival pallor. Normocephalic, atraumatic. No pharyngeal erythema. No thyromegaly. CARDIOVASCULAR: S1 and S2 present. No murmurs, rubs, or gallops. PULMONARY: Chest is clear to auscultation, no wheezing , no crackles. -ABDOMEN: Soft, nontender, nondistended, normoactive bowel sounds. No palpable organomegaly. Chaves catheter in place MUSCULOSKELETAL: No joint swelling or deformity. -EXTREMITIES: No cyanosis, clubbing, bilateral leg edema. Slightly pink and warm NEUROLOGICAL: Gross neurological examination did not reveal any focal deficits. SKIN: No rashes. no petechiae. - Labs CBC & Chem 7: 06/22/23 09:23 06/22/23 06:48 Labs: Abnormal Lab Results - Last 24 Hours (Table) 06/22/23 06/22/23 06/22/23 Range/Units 06:48 06:48 09:23 RBC 3.63 L (3.80-5.40) m/uL Hgb 10.0 L D (11.4-16.0) gm/dL Hct 32.0 L (34.0-46.0) % RDW 15.6 H (11.5-15.5) % Lymphocytes # 0.7 L (1.0-4.8) k/uL Chloride 110 H (98-107) mmol/L Carbon Dioxide 18 L (22-30) mmol/L BUN 21 H (7-17) mg/dL Glucose 144 H (74-99) mg/dL Vancomycin Trough 31.7 H* ug/mL Microbiology - Last 24 Hours (Table) 06/19/23 02:15 Blood Culture Gram Stain - Final Blood Blood Culture - Final Methicillin resist S. aureus 06/19/23 02:00 Blood Culture Gram Stain - Final Blood Blood Culture - Final Methicillin resist S. aureus Molecular ID 06/19/23 21:31 Gram Stain - Preliminary Buttock Wound Culture - Preliminary Gram Neg Bacilli Gram Neg Bacilli#2 Group D Enterococcus Assessment and Plan Assessment: MRSA bacteremia/septicemia Left leg cellulitis UTI Bicytopenia with anemia and thrombocytopenia Severe MS, not in exacerbation Hypothyroid Dyslipidemia Plan: Continue with cefepime and IV vancomycin Continue with normal saline 75 mL/h Infectious disease consult Labs and medication were reviewed.. Continue same treatment. Continue with symptomatic treatment. Resume home medication. Monitor labs and vitals. DVT and GI prophylaxis. Further recommendations as per clinical course of the patient DVT prophylaxis: Subcutaneous heparin GI Prophylaxis: Pepcid PT/OT: Pending Prognosis is guarded
[2023-06-23 05:08] LABS: African American GFR (CKD) >90 (>60 ml/min/1.73 sqM); Non-African American GFR(CKD) >90 (>60 ml/min/1.73 sqM)
[2023-06-23] MEDS: VANCOMYCIN 1,500 MG in SODIUM CHLORIDE 0.9% 500 ML 500 ML IVPB ONE (10:11)
--- NOTE | 2023-06-23 11:05 | P.PN ---
Subjective patient 53-year-old lady with past medical history significant for MS who is senior care resident brought to the ER for left lower extremity swelling and pain. Patient is alert, and able to answer questions. Patient stated that for the last few days she reports that her left leg was getting swollen, she was having pain in the left leg as well. She also noticed the left leg was red in color. Denies any fever or chills. Denies any shortness of breath. There is no complaint of cough. Patient did complain of lethargy and weakness. Because of this complaint she was brought to the ER Initial lab work done in the ER showed WBC 10.3, hemoglobin 6, platelet count 261, sodium 144, potassium 4.5, BUN 36, creatinine 0.72, AST 20, ALT 24 UA positive for large amount of leukocyte Estrace, urine WBC 58, nitrite positive Knee x-ray done showed no acute finding of the right knee Chest x-ray done in the ER showed mild increased density in the left lung base representing infiltration atelectasis Patient admitted to internal medicine service 06/19. Patient seen and examined. Patient continues to have fevers, Tmax of 102.3 last night. Blood culture positive for gram-positive cocci most likely MRSA, started on vancomycin. 06/21/2023 Patient lying in bed comfortable She still feels generally weak No chest pain or dyspnea She denies significant coronary symptoms today but states her urine is dark Both legs are swollen and mildly warm and tender, more on the left side Chaves catheter in place She is hemodynamically stable, fever subsided Mild anemia with hemoglobin 10.8 Creatinine is stable She remains on cefepime and IV vancomycin and normal saline 06/22/2023 Patient feels better No new symptoms and she is hemodynamically stable Labs looks stable as well, anemia slightly worse at 10. Sodium improved back to baseline She remains on IV cefepime and IV vancomycin. She dizziness cefepime to cover gram-negative UTI suspected with her Chaves catheter Repeat urine analysis and urine culture is pending Vancomycin secondary to MRSA bacteremia thought secondary to her infected lower extremities, no significant cellulitis today with treatment, both legs mildly swollen mildly tender and generalized very mild pain,. They are improving. Repeat blood cultures still pending This was discussed with staff 06/23/2023 patient is with lethargy, iit is up and down but overall is improving. No chest pain or dyspnea. No other new complaints. Her both legs are still swollen, erythema is improving. She remains on IV cefepime Repeat blood culture from 06/20 still pending final results, repeat urine culture is also pending Objective - Vital Signs Vital signs: Vital Signs Temp 98.0 F 06/23/23 07:20 Pulse 97 06/23/23 07:20 Resp 16 06/23/23 07:20 BP 153/84 06/23/23 07:20 Pulse Ox 98 06/23/23 07:20 FiO2 Intake & Output 06/22/23 06/23/23 06/23/23 18:59 06:59 18:59 Intake Total 600 Output Total 1400 2000 Balance -800 -1999 Intake: Oral 600 Output: Urine 1400 2000 Other: Voiding Method Indwelling Catheter Indwelling Catheter Indwelling Catheter - Exam -GENERAL: The patient is alert and oriented x3, not in any acute distress. Obese HEENT: Pupils are round and equally reacting to light. EOMI. No scleral icterus. No conjunctival pallor. Normocephalic, atraumatic. No pharyngeal erythema. No thyromegaly. CARDIOVASCULAR: S1 and S2 present. No murmurs, rubs, or gallops. PULMONARY: Chest is clear to auscultation, no wheezing , no crackles. -ABDOMEN: Soft, nontender, nondistended, normoactive bowel sounds. No palpable organomegaly. Chaves catheter in place MUSCULOSKELETAL: No joint swelling or deformity. -EXTREMITIES: No cyanosis, clubbing, bilateral leg edema. Slightly pink and warm NEUROLOGICAL: Gross neurological examination did not reveal any focal deficits. SKIN: No rashes. no petechiae. - Labs CBC & Chem 7: 06/22/23 09:23 06/23/23 04:14 Labs: Abnormal Lab Results - Last 24 Hours (Table) 06/22/23 Range/Units 17:40 Urine Appearance Cloudy H (Clear) Urine Protein 1+ H (Negative) Ur Leukocyte Esterase Large H (Negative) Urine RBC 6 H (0-5) /hpf Urine WBC 48 H (0-5) /hpf Urine WBC Clumps Few H (None) /hpf Urine Bacteria Rare H (None) /hpf Urine Mucus Rare H (None) /hpf Microbiology - Last 24 Hours (Table) 06/19/23 21:31 Gram Stain - Final Buttock Wound Culture - Final Escherichia coli Proteus mirabilis Enterococcus faecalis 06/19/23 14:03 Urine Culture - Preliminary Urine,Catheterized Gram Neg Bacilli 06/21/23 07:25 Blood Culture - Preliminary Blood 06/19/23 21:31 Anaerobic Culture - Final Buttock 06/19/23 02:15 Blood Culture Gram Stain - Final Blood Blood Culture - Final Methicillin resist S. aureus 06/19/23 02:00 Blood Culture Gram Stain - Final Blood Blood Culture - Final Methicillin resist S. aureus Molecular ID Assessment and Plan Assessment: MRSA bacteremia/septicemia Left leg cellulitis UTI Bicytopenia with anemia and thrombocytopenia Severe MS, not in exacerbation Hypothyroid Dyslipidemia Plan: Continue with cefepime and IV vancomycin Continue with normal saline 75 mL/h Infectious disease consult Labs and medication were reviewed.. Continue same treatment. Continue with symptomatic treatment. Resume home medication. Monitor labs and vitals. DVT and GI prophylaxis. Further recommendations as per clinical course of the patient DVT prophylaxis: Subcutaneous heparin GI Prophylaxis: Pepcid PT/OT: Pending Prognosis is guarded
--- NOTE | 2023-06-23 17:19 | P.PN ---
Subjective Progress Note Date: 06/23/23 Principal diagnosis: Reason for follow-up is left lower extremity cellulitis and bacteremia Patient is a 53-year-old female with a past medical history significant for MS chronic bedbound state did have a history of sacral and bilateral gluteal pressure ulcer and catheterizes UTI patient to be sent to the hospital for evaluation of left lower extremity cellulitis. On today's evaluation that is 06/23/2023, patient has been afebrile, patient is breathing comfortably and is currently on room air, patient denies having any significant cough no chest pain shortness of breath, patient denies nausea vomiting or diarrhea and no abdominal pain, patient pain to the knee and lower extremity has decreased in intensity. Patient white count is 6.0 creatinine 0.70 vancomycin level is 19.4 blood culture repeat has been negative urine is growing gram-negative bacilli patient did have a buttock wound culture with ESBL Proteus Enterococcus faecalis Objective - Vital Signs Vital signs: Vital Signs Temp 98.0 F 06/23/23 07:20 Pulse 97 06/23/23 07:20 Resp 16 06/23/23 07:20 BP 153/84 06/23/23 07:20 Pulse Ox 98 06/23/23 07:20 FiO2 Intake & Output 06/22/23 06/23/23 06/23/23 18:59 06:59 18:59 Intake Total 600 Output Total 1400 2000 Balance -800 -2000 Intake: Oral 600 Output: Urine 1400 2000 Other: Voiding Method Indwelling Catheter Indwelling Catheter Indwelling Catheter - Exam GENERAL DESCRIPTION: Middle-aged female lying in bed in no distress RESPIRATORY SYSTEM: Unlabored breathing , decreased breath sounds at bases HEART: S1 S2 regular rate and rhythm , ABDOMEN: Soft , no tenderness EXTREMITIES: Left leg redness slightly decreased, no redness to the bilateral knee was noticed - Labs CBC & Chem 7: 06/22/23 09:23 06/23/23 04:14 Labs: Abnormal Lab Results - Last 24 Hours (Table) 06/22/23 Range/Units 17:40 Urine Appearance Cloudy H (Clear) Urine Protein 1+ H (Negative) Ur Leukocyte Esterase Large H (Negative) Urine RBC 6 H (0-5) /hpf Urine WBC 48 H (0-5) /hpf Urine WBC Clumps Few H (None) /hpf Urine Bacteria Rare H (None) /hpf Urine Mucus Rare H (None) /hpf Microbiology - Last 24 Hours (Table) 06/21/23 07:25 Blood Culture - Preliminary Blood 06/19/23 21:31 Gram Stain - Final Buttock Wound Culture - Final Escherichia coli Proteus mirabilis Enterococcus faecalis 06/19/23 14:03 Urine Culture - Preliminary Urine,Catheterized Gram Neg Bacilli 06/19/23 21:31 Anaerobic Culture - Final Buttock 06/19/23 02:15 Blood Culture Gram Stain - Final Blood Blood Culture - Final Methicillin resist S. aureus 06/19/23 02:00 Blood Culture Gram Stain - Final Blood Blood Culture - Final Methicillin resist S. aureus Molecular ID Assessment and Plan (1) MRSA bacteremia Current Visit: Yes Status: Acute Code(s): R78.81 - BACTEREMIA; B95.62 - METHICILLIN RESIS STAPH INFCT CAUSING DISEASES CLASSD ELSWHR SNOMED Code(s): 50106414605337449 (2) Left leg cellulitis Current Visit: No Status: Acute Code(s): L03.116 - CELLULITIS OF LEFT LOWER LIMB SNOMED Code(s): 09395824936329630 (3) Urinary tract infection Current Visit: No Status: Acute Code(s): N39.0 - URINARY TRACT INFECTION, SITE NOT SPECIFIED SNOMED Code(s): 91197616 Plan: 1patient presented hospital with sepsis in this patient who did have a fever tachycardia source is likely left lower extremity cellulitis however the patient also have a significantly positive UA and a component of catheter associated urinary tract excluded patient secondary and gluteal wounds are healing well without evidence of any cellulitis and clinically not the source of the sepsis 2-patient to continue with cefepime 2 g every 8 hours to cover for catheter associated UTI, urine culture now growing gram-negative bacilli 3patient with MRSA bacteremia source likely left lower extremity cellulitis vancomycin dose has been adjusted 4patient did have a cultures obtained from her gluteal wound which did not look infected and growing multiple pathogen no need for any antibiotic therapy is specific to the wound Dictation was produced using [employer] dictation software. please excuse any grammatical, word or spelling errors. Time with Patient: Less than 30
[2023-06-24] MEDS: VANCOMYCIN 1,500 MG in SODIUM CHLORIDE 0.9% 500 ML 500 ML IVPB SCH (10:56)
--- NOTE | 2023-06-24 15:34 | P.PN ---
Subjective Progress Note Date: 06/24/23 Principal diagnosis: Reason for follow-up is left lower extremity cellulitis and bacteremia Patient is a 53-year-old female with a past medical history significant for MS chronic bedbound state did have a history of sacral and bilateral gluteal pressure ulcer and catheterizes UTI patient to be sent to the hospital for evaluation of left lower extremity cellulitis. On today's evaluation that is 06/24/2023,the patient denies any fever or any chills, patient is breathing comfortably on room air, the patient denies chest pain shortness of breath and no significant cough, patient denies abdominal pain, no nausea vomiting or diarrhea, pain to the left lower extremity has improved. No new labs has been obtained today blood culture repeat so far negative Objective - Vital Signs Vital signs: Vital Signs Temp 99.0 F 06/24/23 07:00 Pulse 99 06/24/23 07:00 Resp 17 06/24/23 07:00 BP 127/81 06/24/23 07:00 Pulse Ox 95 06/24/23 07:00 FiO2 Intake & Output 06/23/23 06/24/23 06/24/23 18:59 06:59 18:59 Intake Total 200 Output Total 1800 1450 Balance -1800 -1450 200 Intake: Oral 200 Output: Urine 1800 1450 Other: Voiding Method Indwelling Catheter Indwelling Catheter Indwelling Catheter - Exam GENERAL DESCRIPTION: Middle-aged female lying in bed in no distress RESPIRATORY SYSTEM: Unlabored breathing , decreased breath sounds at bases HEART: S1 S2 regular rate and rhythm , ABDOMEN: Soft , no tenderness EXTREMITIES: Left leg redness slightly decreased, no redness to the bilateral k nee was noticed - Labs CBC & Chem 7: 06/22/23 09:23 06/23/23 04:14 Labs: Microbiology - Last 24 Hours (Table) 06/19/23 14:03 Urine Culture - Final Urine,Catheterized Pseudomonas aeruginosa Enterococcus faecalis 06/22/23 17:40 Urine Culture - Final Urine,Voided 06/21/23 07:25 Blood Culture - Preliminary Blood 06/19/23 21:31 Gram Stain - Final Buttock Wound Culture - Final Escherichia coli Proteus mirabilis Enterococcus faecalis Assessment and Plan (1) MRSA bacteremia Current Visit: Yes Status: Acute Code(s): R78.81 - BACTEREMIA; B95.62 - METHICILLIN RESIS STAPH INFCT CAUSING DISEASES CLASSD ELSWHR SNOMED Code(s): 51592721223135039 (2) Left leg cellulitis Current Visit: No Status: Acute Code(s): L03.116 - CELLULITIS OF LEFT LOWER LIMB SNOMED Code(s): 81233125907391169 (3) Urinary tract infection Current Visit: No Status: Acute Code(s): N39.0 - URINARY TRACT INFECTION, SITE NOT SPECIFIED SNOMED Code(s): 94598622 Plan: 1patient presented hospital with sepsis in this patient who did have a fever tachycardia source is likely left lower extremity cellulitis however the patient also have a significantly positive UA and a component of catheter associated uri nary tract excluded patient secondary and gluteal wounds are healing well without evidence of any cellulitis and clinically not the source of the sepsis 2-patient to continue with cefepime 2 g every 8 hours to cover for catheter associated UTI, urine culture now growing gram-negative bacilli 3patient with MRSA bacteremia source likely left lower extremity cellulitis vancomycin dose has been adjusted and repeat blood culture has been negative we will place a PICC line to finish a 2-week course of IV vancomycin on discharge 4patient did have a cultures obtained from her gluteal wound which did not look infected and growing multiple pathogen no need for any antibiotic therapy is specific to the wound Dictation was produced using [facility] dictation software. please excuse any grammatical, word or spelling errors.
--- NOTE | 2023-06-25 07:03 | P.PN ---
Subjective patient 53-year-old lady with past medical history significant for MS who is alf resident brought to the ER for left lower extremity swelling and pain. Patient is alert, and able to answer questions. Patient stated that for the last few days she reports that her left leg was getting swollen, she was having pain in the left leg as well. She also noticed the left leg was red in color. Denies any fever or chills. Denies any shortness of breath. There is no complaint of cough. Patient did complain of lethargy and weakness. Because of this complaint she was brought to the ER Initial lab work done in the ER showed WBC 10.3, hemoglobin 6, platelet count 261, sodium 144, potassium 4.5, BUN 36, creatinine 0.72, AST 20, ALT 24 UA positive for large amount of leukocyte Estrace, urine WBC 58, nitrite positive Knee x-ray done showed no acute finding of the right knee Chest x-ray done in the ER showed mild increased density in the left lung base representing infiltration atelectasis Patient admitted to internal medicine service 06/19. Patient seen and examined. Patient continues to have fevers, Tmax of 102.3 last night. Blood culture positive for gram-positive cocci most likely MRSA, started on vancomycin. 06/21/2023 Patient lying in bed comfortable She still feels generally weak No chest pain or dyspnea She denies significant coronary symptoms today but states her urine is dark Both legs are swollen and mildly warm and tender, more on the left side Chaves catheter in place She is hemodynamically stable, fever subsided Mild anemia with hemoglobin 10.8 Creatinine is stable She remains on cefepime and IV vancomycin and normal saline 06/22/2023 Patient feels better No new symptoms and she is hemodynamically stable Labs looks stable as well, anemia slightly worse at 10. Sodium improved back to baseline She remains on IV cefepime and IV vancomycin. She dizziness cefepime to cover gram-negative UTI suspected with her Chaves catheter Repeat urine analysis and urine culture is pending Vancomycin secondary to MRSA bacteremia thought secondary to her infected lower extremities, no significant cellulitis today with treatment, both legs mildly swollen mildly tender and generalized very mild pain,. They are improving. Repeat blood cultures still pending This was discussed with staff 06/23/2023 patient is with lethargy, iit is up and down but overall is improving. No chest pain or dyspnea. No other new complaints. Her both legs are still swollen, erythema is improving. She remains on IV cefepime Repeat blood culture from 06/20 still pending final results, repeat urine culture is also pending 06/24/2023 Patient clinically doing well She denies any new complaint Her leg cellulitis is improved significantly She remains on antibiotic IV cefepime pending final results of blood culture Possible discharge in 24 to 48 hours Objective - Vital Signs Vital signs: Vital Signs Temp 98.1 F 06/24/23 16:48 Pulse 103 H 06/24/23 16:48 Resp 16 06/24/23 16:48 BP 128/87 06/24/23 16:48 Pulse Ox 97 06/24/23 16:48 FiO2 Intake & Output 06/23/23 06/24/23 06/24/23 18:59 06:59 18:59 Intake Total 450 Output Total 1800 1450 2200 Balance -1800 -1450 -1750 Intake: Oral 450 Output: Urine 1800 1450 2200 Other: Voiding Method Indwelling Catheter Indwelling Catheter Indwelling Catheter - Exam -GENERAL: The patient is alert and oriented x3, not in any acute distress. Obese HEENT: Pupils are round and equally reacting to light. EOMI. No scleral icterus. No conjunctival pallor. Normocephalic, atraumatic. No pharyngeal erythema. No thyromegaly. CARDIOVASCULAR: S1 and S2 present. No murmurs, rubs, or gallops. PULMONARY: Chest is clear to auscultation, no wheezing , no crackles. -ABDOMEN: Soft, nontender, nondistended, normoactive bowel sounds. No palpable organomegaly. Chaves catheter in place MUSCULOSKELETAL: No joint swelling or deformity. -EXTREMITIES: No cyanosis, clubbing, bilateral leg edema. Slightly pink and warm NEUROLOGICAL: Gross neurological examination did not reveal any focal deficits. SKIN: No rashes. no petechiae. - Labs CBC & Chem 7: 06/22/23 09:23 06/23/23 04:14 Labs: Microbiology - Last 24 Hours (Table) 06/21/23 07:25 Blood Culture - Preliminary Blood 06/19/23 14:03 Urine Culture - Final Urine,Catheterized Pseudomonas aeruginosa Enterococcus faecalis 06/22/23 17:40 Urine Culture - Final Urine,Voided Assessment and Plan Assessment: MRSA bacteremia/septicemia Left leg cellulitis UTI Bicytopenia with anemia and thrombocytopenia Severe MS, not in exacerbation Hypothyroid Dyslipidemia Plan: Continue with cefepime and IV vancomycin Continue with normal saline 75 mL/h Infectious disease consult Labs and medication were reviewed.. Continue same treatment. Continue with symptomatic treatment. Resume home medication. Monitor labs and vitals. DVT and GI prophylaxis. Further recommendations as per clinical course of the patient DVT prophylaxis: Subcutaneous heparin GI Prophylaxis: Pepcid PT/OT: Pending Prognosis is guarded
[2023-06-25 07:18] LABS: African American GFR (CKD) >90 (>60 ml/min/1.73 sqM); Non-African American GFR(CKD) >90 (>60 ml/min/1.73 sqM)
[2023-06-25] MEDS: LIDOCAINE 1% INJ 10MG/ML (20 ML MDV) SQ ONE (08:51)
--- NOTE | 2023-06-25 09:07 | P.PCN ---
Date of Procedure: 06/25/23 Preoperative Diagnosis: MRSA bacteremia, lower extremity cellulitis, UTI, need for manager intermediate antibiotics Postoperative Diagnosis: same Procedure(s) Performed: Left upper extremity basilic vein PICC line placement under ultrasound and fluoroscopic guidance Left upper extremity venogram and central venogram Anesthesia: local Surgeon: Balaji Hernandez Estimated Blood Loss (ml): 5 Pathology: none sent Condition: stable Disposition: floor Description of Procedure: After written and informed consent was obtained the patient and all risks, benefits and competitions were described the patient was brought to the [facility] and laid in a supine position with the left arm outstretched on an armboard. The area of the left arm was prepped and draped in usual sterile fashion. Timeout was performed in normal fashion. Utilizing ultrasound the basilic vein was visualized and shown to be compressible without any visible thrombus. Under ultrasound guidance the basilic vein was then cannulated with a micropuncture needle and wire was placed under direct visualization of fluoroscopy. Introducer sheath was then placed. The catheter was measured and cut to the appropriate length which was 51 cm. The catheter was then guided through the breakaway sheath and the sheath was removed with good positioning was visualized under fluoroscopy. The catheter was pulled and flushed easily. It was then secured in place in normal fashion. Patient tolerated the procedure well was sent back to his room for recovery.
--- NOTE | 2023-06-25 12:13 | IR ---
EXAMINATION TYPE: IR cvc insert >=5 years Intraoperative/procedural fluoroscopic services were provid ed. CLINICAL INDICATION:Female, 53 years old with history of antibiotics, DAP 842.01, 51cm; , [facility] Total fluoroscopy time is 3.8 min. DAP: 842 uGym2 Please see the operative/procedural note for further details.
[2023-06-25 12:54] VITALS: BMI 42.3
--- NOTE | 2023-06-25 13:02 | P.DS ---
Providers Date of admission: 06/19/23 06:23 Expected date of discharge: 06/25/23 Attending physician: Clementine Mc Consults: 06/19/23 06:23 Consult Physician Urgent Consulting Provider: Bobo Rivero Consult Reason/Comments: pneumonia, reccurent utis Do you want consulting provider notified?: Yes Primary care physician: Brianne Gomez, Hospital Course: Discharge diagnoses; MRSA bacteremia/septicemia Left leg cellulitis UTI Sepsis Tachycardia Chronic anemia Severe MS, not in exacerbation Hypothyroid Dyslipidemia Hospital course; patient 53-year-old lady with past medical history significant for MS who is correction resident brought to the ER for left lower extremity swelling and pain. Patient is alert, and able to answer questions. Patient stated that for the last few days she reports that her left leg was getting swollen, she was having pain in the left leg as well. She also noticed the left leg was red in color. Denies any fever or chills. Denies any shortness of breath. There is no complaint of cough. Patient did complain of lethargy and weakness. Because of this complaint she was brought to the ER Initial lab work done in the ER showed WBC 10.3, hemoglobin 6, platelet count 261, sodium 144, potassium 4.5, BUN 36, creatinine 0.72, AST 20, ALT 24 UA positive for large amount of leukocyte Estrace, urine WBC 58, nitrite positive Knee x-ray done showed no acute finding of the right knee Chest x-ray done in the ER showed mild increased density in the left lung base representing infiltration atelectasis Patient admitted to internal medicine service 06/19. Patient seen and examined. Patient continues to have fevers, Tmax of 102.3 last night. Blood culture positive for gram-positive cocci most likely MRSA, started on vancomycin. 06/21/2023 Patient lying in bed comfortable She still feels generally weak No chest pain or dyspnea She denies significant coronary symptoms today but states her urine is dark Both legs are swollen and mildly warm and tender, more on the left side Chaves catheter in place She is hemodynamically stable, fever subsided Mild anemia with hemoglobin 10.8 Creatinine is stable She remains on cefepime and IV vancomycin and normal saline 06/22/2023 Patient feels better No new symptoms and she is hemodynamically stable Labs looks stable as well, anemia slightly worse at 10. Sodium improved back to baseline She remains on IV cefepime and IV vancomycin. She dizziness cefepime to cover gram-negative UTI suspected with her Chaves catheter Repeat urine analysis and urine culture is pending Vancomycin secondary to MRSA bacteremia thought secondary to her infected lower extremities, no significant cellulitis today with treatment, both legs mildly swollen mildly tender and generalized very mild pain,. They are improving. Repeat blood cultures still pending This was discussed with staff 06/23/2023 patient is with lethargy, iit is up and down but overall is improving. No chest pain or dyspnea. No other new complaints. Her both legs are still swollen, erythema is improving. She remains on IV cefepime Repeat blood culture from 06/20 still pending final results, repeat urine culture is also pending 06/24/2023 Patient clinically doing well She denies any new complaint Her leg cellulitis is improved significantly She remains on antibiotic IV cefepime pending final results of blood culture Possible discharge in 24 to 48 hours 06/24. Patient seen and examined. ID recommended discharging patient on IV vancomycin for 10 days. PICC line was placed. Being discharged to rehab facility in stable condition PHYSICAL EXAMINATION: GENERAL: The patient is alert and oriented x3, not in any acute distress. Well developed, well nourished. HEENT: Pupils are round and equally reacting to light. EOMI. No scleral icterus. No conjunctival pallor. Normocephalic, atraumatic. No pharyngeal erythema. No thyromegaly. CARDIOVASCULAR: S1 and S2 present. No murmurs, rubs, or gallops. PULMONARY: Chest is clear to auscultation, no wheezing or crackles. ABDOMEN: Soft, nontender, nondistended, normoactive bowel sounds. No palpable organomegaly. MUSCULOSKELETAL: No joint swelling or deformity. EXTREMITIES: Lower extremity erythema has improved NEUROLOGICAL: Gross neurological examination did not reveal any focal deficits. SKIN: No rashes Dictation was produced using [employer] dictation software. please excuse any grammatical, word or spelling errors. Patient Condition at Discharge: Stable Plan - Discharge Summary Discharge Rx Participant: Yes New Discharge Prescriptions: New Vancomycin 1,500 mg IVPB Q24HR #12 each Continue Potassium Chloride ER [K-Dur 20] 20 meq PO BID Aspirin 81 mg PO DAILY Sennosides [Senna] 8.6 mg PO BID Levothyroxine Sodium [Synthroid] 75 mcg PO HS Atorvastatin [Lipitor] 10 mg PO HS Pro-Stat Liquid (Amino Acids-Protein Hydrolysate) 30 ml PO TID@0700,1100,1600 Ascorbic Acid [Vitamin C] 500 mg PO DAILY Acetaminophen [Tylenol Extra Strength] 500 mg PO ONCE Naloxone HCl 0.4 mg SQ DIRECTED PRN PRN Reason: OVERDOSE Lansoprazole [Prevacid] 15 mg PO DAILY Folic Acid 0.4 mg PO BID Gabapentin [Neurontin] 300 mg PO BID 3 Days #6 cap HYDROcodone/APAP 5-325MG [[place] 5-325] 1 tab PO QID@07,13,19,23 3 Days #10 tab Diroximel Fumarate [Vumerity] 462 mg PO BID Furosemide [Lasix] 20 mg PO DAILY Baclofen 10 mg PO TID@0700,1300,1900 Multivitamins, Thera [Multivitamin (formulary)] 1 tab PO DAILY Nitroglycerin Sl Tabs [Nitrostat] 0.4 mg SUBLINGUAL ONCE Discontinued Naloxone HCl [Narcan] 4 mg NASAL DIRECTED PRN PRN Reason: OVERDOSE Discharge Medication List Potassium Chloride ER [K-Dur 20] 20 meq PO BID 01/12/19 [History] Aspirin 81 mg PO DAILY 09/15/19 [History] Sennosides [Senna] 8.6 mg PO BID 01/31/20 [History] Atorvastatin [Lipitor] 10 mg PO HS 09/22/21 [History] Diroximel Fumarate [Vumerity] 462 mg PO BID 09/22/21 [History] Levothyroxine Sodium [Synthroid] 75 mcg PO HS 09/22/21 [History] Ascorbic Acid [Vitamin C] 500 mg PO DAILY 05/14/22 [History] Furosemide [Lasix] 20 mg PO DAILY 05/14/22 [History] Pro-Stat Liquid (Amino Acids-Protein Hydrolysate) 30 ml PO TID@0700,1100,1600 05/14/22 [History] Baclofen 10 mg PO TID@0700,1300,1900 12/22/22 [History] Multivitamins, Thera [Multivitamin (formulary)] 1 tab PO DAILY 12/22/22 [History] Acetaminophen [Tylenol Extra Strength] 500 mg PO ONCE 06/19/23 [History] Folic Acid 0.4 mg PO BID 06/19/23 [History] Lansoprazole [Prevacid] 15 mg PO DAILY 06/19/23 [History] Naloxone HCl 0.4 mg SQ DIRECTED PRN 06/19/23 [History] Nitroglycerin Sl Tabs [Nitrostat] 0.4 mg SUBLINGUAL ONCE 06/19/23 [History] Gabapentin [Neurontin] 300 mg PO BID 3 Days #6 cap 06/25/23 [Rx] HYDROcodone/APAP 5-325MG [[place] 5-325] 1 tab PO QID@07,13,19,23 3 Days #10 tab 06/25/23 [Rx] Vancomycin 1,500 mg IVPB Q24HR #12 each 06/25/23 [Rx] Follow up Appointment(s)/Referral(s): Brianne Gomez DO [Primary Care Provider] - 1-2 days [facility], [NON-STAFF] - As Needed Discharge Disposition: TRANSFER TO SNF/ECF
--- NOTE | 2023-06-25 15:35 | P.PN ---
Subjective Progress Note Date: 06/25/23 Principal diagnosis: Reason for follow-up is left lower extremity cellulitis and bacteremia Patient is a 53-year-old female with a past medical history significant for MS chronic bedbound state did have a history of sacral and bilateral gluteal pressure ulcer and catheterizes UTI patient to be sent to the hospital for evaluation of left lower extremity cellulitis. On today's evaluation that is 06/25/2023,the patient remains to be afebrile, patient is on room air not requiring supplemental oxygen and denies any shortness of breath no chest pain or cough.Patient denies having any nausea or vomiting, no abdominal pain and no diarrhea pain to the left lower extremity has decreased in intensity. Patient did have a creatinine 0.69 vancomycin and MB 19.6 Objective - Vital Signs Vital signs: Vital Signs Temp 97.9 F 06/25/23 07:51 Pulse 95 06/25/23 11:32 Resp 18 06/25/23 11:32 BP 123/79 06/25/23 07:51 Pulse Ox 93 L 06/25/23 07:51 FiO2 Intake & Output 06/24/23 06/25/23 06/25/23 18:59 06:59 18:59 Intake Total 700 Output Total 2200 1450 1500 Balance -1500 -1450 -1500 Intake: Oral 700 Output: Urine 2200 1450 1500 Uretheral (Chaves) 1450 Other: Voiding Method Indwelling Catheter Indwelling Catheter Indwelling Catheter - Exam GENERAL DESCRIPTION: Middle-aged female lying in bed in no distress RESPIRATORY SYSTEM: Unlabored breathing , decreased breath sounds at bases HEART: S1 S2 regular rate and rhythm , ABDOMEN: Soft , no tenderness EXTREMITIES: Left leg swelling redness has decreased Examination of the sacral and gluteal wound did not show any redness or purulent drainage - Labs CBC & Chem 7: 06/22/23 09:23 06/25/23 06:47 Labs: Microbiology - Last 24 Hours (Table) 06/21/23 07:25 Blood Culture - Preliminary Blood Assessment and Plan (1) MRSA bacteremia Current Visit: Yes Status: Acute Code(s): R78.81 - BACTEREMIA; B95.62 - METHICILLIN RESIS STAPH INFCT CAUSING DISEASES [facility] SNOMED Code(s): 82439535494212012 (2) Left leg cellulitis Current Visit: No Status: Acute Code(s): L03.116 - CELLULITIS OF LEFT LOWER LIMB SNOMED Code(s): 89288675773560798 (3) Urinary tract infection Current Visit: No Status: Acute Code(s): N39.0 - URINARY TRACT INFECTION, SITE NOT SPECIFIED SNOMED Code(s): 13956815 Plan: 1patient presented hospital with sepsis in this patient who did have a fever tachycardia source is likely left lower extremity cellulitis however the patient also have a significantly positive UA and a component of catheter associated urinary tract excluded patient secondary and gluteal wounds are healing well without evidence of any cellulitis and clinically not the source of the sepsis 2-patient to continue with cefepime 2 g every 8 hours to cover for catheter associated UTI, urine culture with Pseudomonas and Enterococcus faecalis adequately treated with repeat urine culture negative 3patient with MRSA bacteremia source likely left lower extremity cellulitis, patient did get the PICC line we will put the patient on vancomycin for [facility] a course of therapy 4patient did have a cultures obtained from her gluteal wound which did not look infected and growing multiple pathogen no need for any antibiotic therapy is specific to the wound Dictation was produced using [employer] dictation software. please excuse any grammatical, word or spelling errors.
[2023-06-25 16:13] VITALS: BP 130/84; PULSE 102; RESP 19; TEMP 98
== END 2023-06-25 16:28 | DRG 466 ==
LOC: EC 00:57 → 4SSUR 06:23
PROVIDERS: ADMIT Hospitalist; ATTEND Hospitalist
PROC: 02HV33Z Insertion of Infusion Device into Superior Vena Cava, Percutaneous Approach (ICD-10-PCS; 2023-06-25)
PROC: B5181ZA Fluoroscopy of Superior Vena Cava using Low Osmolar Contrast, Guidance (ICD-10-PCS; 2023-06-25)
PROC: B548ZZA Ultrasonography of Superior Vena Cava, Guidance (ICD-10-PCS; 2023-06-25)
PROC: B5181ZZ Fluoroscopy of Superior Vena Cava using Low Osmolar Contrast (ICD-10-PCS; 2023-06-25)
PROC: B51N1ZZ Fluoroscopy of Left Upper Extremity Veins using Low Osmolar Contrast (ICD-10-PCS; 2023-06-25)
PROC: 05HC33Z Insertion of Infusion Device into Left Basilic Vein, Percutaneous Approach (ICD-10-PCS; principal; 2023-06-25 08:20)
DX: T83.511A Infection and inflammatory reaction due to indwelling urethral catheter, initial encounter (principal); A41.02 Sepsis due to Methicillin resistant Staphylococcus aureus; L03.116 Cellulitis of left lower limb; N31.9 Neuromuscular dysfunction of bladder, unspecified; N39.0 Urinary tract infection, site not specified; E03.9 Hypothyroidism, unspecified; E78.5 Hyperlipidemia, unspecified; G35 Multiple sclerosis; Z99.3 Dependence on wheelchair; D69.6 Thrombocytopenia, unspecified; D64.9 Anemia, unspecified; L89.154 Pressure ulcer of sacral region, stage 4; L89.323 Pressure ulcer of left buttock, stage 3; Z79.2 Long term (current) use of antibiotics; Z79.82 Long term (current) use of aspirin; Z79.890 Hormone replacement therapy; B95.2 Enterococcus as the cause of diseases classified elsewhere; B96.89 Other specified bacterial agents as the cause of diseases classified elsewhere; B96.5 Pseudomonas (aeruginosa) (mallei) (pseudomallei) as the cause of diseases classified elsewhere; Z79.899 Other long term (current) drug therapy; Z82.49 Family history of ischemic heart disease and other diseases of the circulatory system; Z87.440 Personal history of urinary (tract) infections
CPT/HCPCS: 36415; 36573; 71046; 71275; 80048; 80053; 80202; 81001; 82565; 83605; 85025; 85379; 87040; 87070; 87075; 87077; 87086; 87186; 87205; 93306; 93970; 96361; 96365; 96366; 96367; 96375; 99285

== ENCOUNTER 2023-07-13 11:56 | Emergency (ER) | payer OTHER ==
[2023-07-13 12:44] VITALS: BP 119/81; PULSE 85; RESP 18; TEMP 97.5
--- NOTE | 2023-07-13 13:11 | US ---
EXAMINATION TYPE: US venous doppler duplex UE DATE OF EXAM: 07/13/2023 COMPARISON: NONE CLINICAL INDICATION: Female, 53 years old with history of swollen left arm; swollen left arm with PIC C line, h/o DVT in left arm years ago, US today at [facility] said DVT and dropped off in EC SIDE PERFORMED: Left Artificial Teeth Inspector notes: Patient is wheelchair bound, hunched over, very limited to scan Left Arm: Negative for DVT. Unable to see color flow within IJV due to patient sitting upright, good compression and doppler wave form seen. basilic v in forearm has no flow and does not compress, probably superficial thrombus, PICC line seen within basilic v in upper arm. IMPRESSION: Exam positive for SVT of the basilic vein. No evidence for DVT within the left upper extremity. Indwe lling PICC line.
--- NOTE | 2023-07-13 13:23 | ED ---
Extremity Problem HPI - General Chief complaint: Extremity Problem,Nontraumatic Stated complaint: R shoulder pain Time Seen by Provider: 07/13/23 12:15 Source: patient, RN notes reviewed Mode of arrival: EMS - History of Present Illness Initial comments: This is a 53-year-old female presents emergency department via EMS from [facility] for chief complaint of left arm pain. Patient states that she was sent for evaluation of potential blood clot. Patient states she has a history of blood clots, history of pulmonary embolism. Is unaware if she is on a blood thinner at this time. Denies dizziness, lightheadedness, chest pain or pressure, shortness of breath. She also denies lower extremity swelling, redness, intermittent claudication. - Related Data Home Medications Medication Instructions Recorded Confirmed Potassium Chloride ER [K-Dur 20] 20 meq PO BID 01/12/19 06/19/23 Aspirin 81 mg PO DAILY 09/15/19 06/19/23 Sennosides [Senna] 8.6 mg PO BID 01/31/20 06/19/23 Atorvastatin [Lipitor] 10 mg PO HS 09/22/21 06/19/23 Diroximel Fumarate [Vumerity] 462 mg PO BID 09/22/21 06/19/23 Levothyroxine Sodium [Synthroid] 75 mcg PO HS 09/22/21 06/19/23 Ascorbic Acid [Vitamin C] 500 mg PO DAILY 05/14/22 06/19/23 Furosemide [Lasix] 20 mg PO DAILY 05/14/22 06/19/23 Pro-Stat Liquid (Amino 30 ml PO TID@0700,1100,1600 05/14/22 06/19/23 Acids-Protein Hydrolysate) Baclofen 10 mg PO TID@0700,1300,1900 12/22/22 06/19/23 Multivitamins, Thera [Multivitamin 1 tab PO DAILY 12/22/22 06/19/23 (formulary)] Acetaminophen [Tylenol Extra 500 mg PO ONCE 06/19/23 06/19/23 Strength] Folic Acid 0.4 mg PO BID 06/19/23 06/19/23 Lansoprazole [Prevacid] 15 mg PO DAILY 06/19/23 06/19/23 Naloxone HCl 0.4 mg SQ DIRECTED PRN 06/19/23 06/19/23 Nitroglycerin Sl Tabs [Nitrostat] 0.4 mg SUBLINGUAL ONCE 06/19/23 06/19/23 Previous Rx's Medication Instructions Recorded Gabapentin [Neurontin] 300 mg PO BID 3 Days #6 cap 06/25/23 HYDROcodone/APAP 5-325MG [[place] 1 tab PO QID@07,13,19,23 3 Days 06/25/23 5-325] #10 tab Vancomycin 1,500 mg IVPB Q24HR #12 each 06/25/23 Allergies Allergy/AdvReac Type Severity Reaction Status Date / Time adhesive tape Allergy Rash/Hives Verified 06/19/23 09:49 cinnamon Allergy Rash/Hives Verified 06/19/23 09:49 Review of Systems ROS Statement: Those systems with pertinent positive or pertinent negative responses have been documented in the HPI. ROS Other: All systems not noted in ROS Statement are negative. Past Medical History Past Medical History: Hyperlipidemia, Musculoskeletal Disorder, Neurologic Disorder, Pneumonia, Renal Disease, Skin Disorder Additional Past Medical History / Comment(s): Multiple sclerosis stage IV- wheelchair bound, L side weaker than right, past renal failure with hemodialysis-last time was July 2016, neurogenic bladder with indwelling [place], past sepsis, iron deficiency anemia, wounds present on bilateral gluteal folds and sacral area History of Any Multi-Drug Resistant Organisms: ESBL, MRSA, VRE Date of last positivie culture/infection: 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;03/08/20 MRSA; ESBL 08/27/17 MDRO Source:: Urine-VRE; Buttock MRSA; ESBL-Urine Past Surgical History: No Surgical Hx Reported Additional Past Surgical History / Comment(s): LP, debridement decubitus sacral ulcer, hemodialysis cath since removed, picc lines Past Anesthesia/Blood Transfusion Reactions: No Reported Reaction Additional Past Anesthesia/Blood Transfusion Reaction / Comment(s): NEVER HAD ANY GENERAL ANES Past Psychological History: No Psychological Hx Reported Smoking Status: Never smoker Past Alcohol Use History: None Reported Past Drug Use History: None Reported - Past Family History Father History Unknown: Yes Additional Family Medical History / Comment(s): PTS DAD LIVED IN [place]- SHE'S NOT SURE WHAT HE FROM. HE HAD HYPOTENSION. Mother Family Medical History: Coronary Artery Disease (CAD), Diabetes Mellitus, Hyperlipidemia, Hypertension Additional Family Medical History / Comment(s): CARDIAC STENTS General Exam - General Exam Comments Initial Comments: Visual Physical Exam Vital signs reviewed General: Well-appearing, nontoxic, no acute distress. Head: Normocephalic, atraumatic Eyes: PERRLA, EOMI ENT: Airway patent Chest: Nonlabored breathing Skin: No visual rash, normal skin tone Neuro: Alert and oriented 3 Musculoskeletal: No gross abnormalities General appearance: alert, in no apparent distress Head exam: Present: atraumatic, normocephalic, normal inspection Eye exam: Present: normal appearance, PERRL, EOMI. Absent: scleral icterus, conjunctival injection, periorbital swelling ENT exam: Present: normal exam, mucous membranes moist Neck exam: Present: normal inspection. Absent: tenderness, meningismus, lymphadenopathy Respiratory exam: Present: normal lung sounds bilaterally. Absent: respiratory distress, wheezes, rales, rhonchi, stridor Cardiovascular Exam: Present: regular rate, normal rhythm, normal heart sounds. Absent: systolic murmur, diastolic murmur, rubs, gallop, clicks GI/Abdominal exam: Present: soft, normal bowel sounds. Absent: distended, tenderness, guarding, rebound, rigid Left Upper Arm exam: Present: full ROM, swelling (proximal soft tissue swelling, no overlying erythema noted) Neurosensory exam: Present: 2-point discrimination Vascular: Present: normal capillary refill, radial pulse (2+). Absent: vascular compromise Back exam: Present: normal inspection Neurological exam: Present: alert, oriented X3, CN II-XII intact Psychiatric exam: Present: normal affect, normal mood Skin exam: Present: warm, dry, intact, normal color, other (see above). Absent: rash Course Vital Signs 07/13/23 12:08 Temperature 97.5 F L Pulse Rate 85 Respiratory 18 Rate Blood Pressure 119/81 O2 Sat by Pulse 100 Oximetry Medical Decision Making - Medical Decision Making Was pt. sent in by a medical professional or institution (, PA, E BUSINESS MANAGER, urgent care, hospital, or half-way...) When possible be specific @ -No Did you speak to anyone other than the patient for history (EMS, parent, family, police, friend...)? What history was obtained from this source @ -No Did you review nursing and triage notes (agree or disagree)? Why? @ -I reviewed and agree with nursing and triage notes Were old charts reviewed (outside hosp., previous admission, EMS record, old EKG, old radiological studies, urgent care reports/EKG's, half-way records)? Report findings @ -No old charts were reviewed Differential Diagnosis (chest pain, altered mental status, abdominal pain women, abdominal pain men, vaginal bleeding, weakness, fever, dyspnea, syncope, headache, dizziness, GI bleed, back pain, seizure, CVA, palpatations, mental health, musculoskeletal)? @ -SVT, DVT, thrombophlebitis EKG interpreted by me (3pts min.). @ -None X-rays interpreted by me (1pt min.). @ -None done CT interpreted by me (1pt min.). @ -None done U/S interpreted by me (1pt. min.). @ -US venous Doppler of the left upper extremities positive superficial venous thrombosis of the bascilic vein and negative for DVT, indwelling PICC line. What testing was considered but not performed or refused? (CT, X-rays, U/S, labs)? Why? @ -Patient laboratory testing and further imaging was considered but deferred at this time due to patient being asymptomatic ultrasound findings positive for superficial venous thrombosis. What meds were considered but not given or refused? Why? @ -None Did you discuss the management of the patient with other professionals (professionals i.e. , PA, E BUSINESS MANAGER, lab, RT, psych nurse, social worker health services, x ray electronics wireman, teacher, contact officer, binder caser)? Give summary @ -Due to findings of patient's ultrasound, I spoke with hospital technician who stated the superficial thrombosis of the basilic vein is likely ATN. 25 1955 Concerning for possible embolization into the deep venous system. Was smoking cessation discussed for >3mins.? @ -No Was critical care preformed (if so, how long)? @ -No Were there social determinants of health that impacted care today? How? (Homelessness, low income, unemployed, alcoholism, drug addiction, transportation, low edu. Level, literacy, decrease access to med. care, nursing home, rehab)? @ -No Was there de-escalation of care discussed even if they declined (Discuss DNR or withdrawal of care, Hospice)? DNR status @ -No What co-morbidities impacted this encounter? (DM, HTN, Smoking, COPD, CAD, Cancer, CVA, ARF, Chemo, Hep., AIDS, mental health diagnosis, sleep apnea, morbid obesity)? @ -None Was patient admitted / discharged? Hospital course, mention meds given and route, prescriptions, significant lab abnormalities, going to OR and other pertinent info. @ -Discharge. 53-year-old female with left upper extremity swelling. On physical examination patient noted to have mild swelling of the left upper extremity no evaluated. Feeling well. Cardiopulmonary examination unremarkable. Basic laboratory was deferred at this time. Ultrasound positive for superficial venous thrombosis of the basilic vein. Discussion with hospital technician reveals that the thrombosis is about 7 inches away from the deep venous system. Patient is not a candidate for anticoagulation at this time. [facility] Discussed with Dr. Jin Undiagnosed new problem with uncertain prognosis? @ -No Drug Therapy requiring intensive monitoring for toxicity (Heparin, Nitro, Insulin, Cardizem)? @ -No Were any procedures done? @ -No Diagnosis/symptom? @ -[SVT Acute, or Chronic, or Acute on Chronic? @ -Acute Uncomplicated (without systemic symptoms) or Complicated (systemic symptoms)? @ -uncomplicated Side effects of treatment? @ -[No Exacerbation, Progression, or Severe Exacerbation? @ -No Poses a threat to life or bodily function? How? (Chest pain, USA, MA, pneumonia, PE, COPD, DKA, ARF, appy, cholecystitis, CVA, Diverticulitis, Homicidal, Suicidal, threat to staff... and all critical care pts) @ -No Disposition Clinical Impression: Superficial venous thrombosis of arm Narrative: Please return to the Emergency Department if symptoms worsen or any other concerns. Disposition: HOME SELF-CARE Condition: Good Instructions (If sedation given, give patient instructions): Venous Thromboembolism (ED) Is patient prescribed a controlled substance at d/c from ED?: No Referrals: Brianne Gomez DO [Primary Care Provider] - 1-2 days Time of Disposition: 14:57
== END 2023-07-13 16:30 | disposition home or self-care (01) ==
LOC: EC 11:56
DX: I82.612 Acute embolism and thrombosis of superficial veins of left upper extremity (principal); Z91.018 Allergy to other foods; Z91.09 Other allergy status, other than to drugs and biological substances
CPT/HCPCS: 99283

== ENCOUNTER 2023-08-15 17:56 | Inpatient (IN) | payer OTHER ==
[2023-08-15 18:13] LABS: Glucose,Whole Blood 185 mg/dL (70-110)
--- NOTE | 2023-08-15 18:17 | ED ---
Altered Mental Status HPI - General Chief Complaint: Altered Mental Status Stated Complaint: Possible Sepsis Time Seen by Provider: 08/15/23 18:02 Source: EMS, RN notes reviewed, old records reviewed Mode of arrival: EMS Limitations: physical limitation - History of Present Illness Initial Comments: This is a 53-year-old female to the ER. This patient presents today for evaluation regards to significantly altered mental status fever shortness of breath diaphoresis concern for sepsis. Patient is a poor historian unable to provide any history currently, she is unresponsive to questioning MD Complaint: altered mental status, confusion, weakness -: unknown Severity: severe Treatments Prior to Arrival: IV fluid, oxygen - Related Data Home Medications Medication Instructions Recorded Confirmed Potassium Chloride ER [K-Dur 20] 20 meq PO BID 01/12/19 08/16/23 Aspirin 81 mg PO DAILY 09/15/19 08/16/23 Sennosides [Senna] 8.6 mg PO BID 01/31/20 08/16/23 Atorvastatin [Lipitor] 10 mg PO HS 09/22/21 08/16/23 Diroximel Fumarate [Vumerity] 462 mg PO BID 09/22/21 08/16/23 Levothyroxine Sodium [Synthroid] 75 mcg PO HS 09/22/21 08/16/23 Ascorbic Acid [Vitamin C] 500 mg PO DAILY 05/14/22 08/16/23 Furosemide [Lasix] 20 mg PO DAILY 05/14/22 08/16/23 Pro-Stat Liquid (Amino 30 ml PO DAILY 05/14/22 08/16/23 Acids-Protein Hydrolysate) Baclofen 10 mg PO TID@0700,1300,1900 12/22/22 08/16/23 Multivitamins, Thera [Multivitamin 1 tab PO DAILY 12/22/22 08/16/23 (formulary)] Folic Acid 0.4 mg PO BID 06/19/23 08/16/23 Naloxone HCl 0.4 mg SQ DIRECTED PRN 06/19/23 08/16/23 Nitroglycerin Sl Tabs [Nitrostat] 0.4 mg SUBLINGUAL Q5M PRN 06/19/23 08/16/23 Acetaminophen [Tylenol 8 Hour] 650 mg PO Q8H PRN 08/16/23 08/16/23 Carboxymethylcellulose Sodium 1 drop BOTH EYES DAILY 08/16/23 08/16/23 [Refresh Tears] Cyclobenzaprine [Flexeril] 5 mg PO Q8H PRN 08/16/23 08/16/23 Famotidine [Pepcid] 10 mg PO DAILY 08/16/23 08/16/23 Menthol [Icy Hot] 1 patch TRANSDERM DAILY 08/16/23 08/16/23 Previous Rx's Medication Instructions Recorded Gabapentin [Neurontin] 300 mg PO BID@0700,1900 3 Days #6 08/24/23 cap HYDROcodone/APAP 7.5-325MG [[place] 1 tab PO QID PRN 3 Days #12 tab 08/24/23 7.5-325] cefUROXime axetiL [Ceftin] 500 mg PO BID 10 Days #20 tab 08/24/23 Allergies Allergy/AdvReac Type Severity Reaction Status Date / Time adhesive tape Allergy Rash/Hives Verified 08/16/23 10:52 cinnamon Allergy Rash/Hives Verified 08/16/23 10:52 Review of Systems ROS Statement: Those systems with pertinent positive or pertinent negative responses have been documented in the HPI. ROS Other: All systems not noted in ROS Statement are negative. Past Medical History Past Medical History: Hyperlipidemia, Musculoskeletal Disorder, Neurologic Disorder, Pneumonia, Renal Disease, Skin Disorder Additional Past Medical History / Comment(s): Multiple sclerosis stage IV- wheelchair bound, L side weaker than right, past renal failure with hemodialysis-last time was July 2016, neurogenic bladder with indwelling [place], past sepsis, iron deficiency anemia, wounds present on bilateral gluteal folds and sacral area History of Any Multi-Drug Resistant Organisms: ESBL, MRSA, VRE Date of last positivie culture/infection: 06/19/23 MRSA; 06/19/23 ESBL; 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 MDRO Source:: Blood-MRSA; Urine-VRE and ESBL Past Surgical History: No Surgical Hx Reported Additional Past Surgical History / Comment(s): LP, debridement decubitus sacral ulcer, hemodialysis cath since removed, picc lines Past Anesthesia/Blood Transfusion Reactions: No Reported Reaction Additional Past Anesthesia/Blood Transfusion Reaction / Comment(s): NEVER HAD ANY GENERAL ANES Past Psychological History: No Psychological Hx Reported Smoking Status: Never smoker Past Alcohol Use History: None Reported Past Drug Use History: None Reported - Past Family History Father History Unknown: Yes Additional Family Medical History / Comment(s): PTS DAD LIVED IN [place]- SHE'S NOT SURE WHAT HE FROM. HE HAD HYPOTENSION. Mother Family Medical History: Coronary Artery Disease (CAD), Diabetes Mellitus, Hyperlipidemia, Hypertension Additional Family Medical History / Comment(s): CARDIAC STENTS General Exam Limitations: altered mental status, physical limitation General appearance: alert, anxious, in distress, obese Head exam: Present: atraumatic, normocephalic, normal inspection Eye exam: Present: normal appearance, PERRL, EOMI. Absent: scleral icterus, conjunctival injection, periorbital swelling ENT exam: Present: normal exam, mucous membranes moist Neck exam: Present: normal inspection. Absent: tenderness, meningismus, lymphadenopathy Respiratory exam: Present: respiratory distress, wheezes, rales, rhonchi, accessory muscle use, decreased breath sounds, prolonged expiratory. Absent: stridor Cardiovascular Exam: Present: tachycardia, normal heart sounds. Absent: systolic murmur, diastolic murmur, rubs, gallop, clicks GI/Abdominal exam: Present: soft, normal bowel sounds. Absent: distended, tenderness, guarding, rebound, rigid Extremities exam: Present: normal inspection, full ROM, normal capillary refill. Absent: tenderness, pedal edema, joint swelling, calf tenderness Back exam: Present: normal inspection Neurological exam: Present: alert, oriented X3, CN II-XII intact Psychiatric exam: Present: normal affect, normal mood Skin exam: Present: warm, dry, intact, normal color. Absent: rash Course Vital Signs 08/15/23 08/15/23 08/15/23 17:58 18:15 18:30 Temperature 99.8 F H Pulse Rate 138 H 115 H 122 H Respiratory 24 26 H 27 H Rate Blood Pressure 81/44 100/56 87/52 O2 Sat by Pulse 87 L 96 97 Oximetry Fraction of Inspired Oxygen (FIO2) 08/15/23 08/15/23 08/15/23 19:00 19:30 19:45 Temperature Pulse Rate 131 H 122 H 126 H Respiratory 19 18 20 Rate Blood Pressure 62/34 98/45 87/27 O2 Sat by Pulse 96 97 97 Oximetry Fraction of Inspired Oxygen (FIO2) 08/15/23 08/15/23 08/15/23 19:55 19:57 20:00 Temperature 98.6 F Pulse Rate 121 H Respiratory 36 H Rate Blood Pressure 105/37 100/61 100/61 O2 Sat by Pulse 98 Oximetry Fraction of Inspired Oxygen (FIO2) 08/15/23 08/15/23 08/15/23 20:10 20:20 20:28 Temperature Pulse Rate 115 H 134 H Respiratory 34 H 32 H Rate Blood Pressure 92/73 122/70 O2 Sat by Pulse 100 100 Oximetry Fraction of 100 Inspired Oxygen (FIO2) 08/15/23 08/15/23 08/15/23 20:30 20:40 20:50 Temperature Pulse Rate 115 H 118 H 111 H Respiratory 16 17 16 Rate Blood Pressure 71/57 81/42 74/37 O2 Sat by Pulse 99 99 100 Oximetry Fraction of Inspired Oxygen (FIO2) 08/15/23 08/15/23 08/15/23 21:00 21:10 21:20 Temperature Pulse Rate 105 H 111 H 89 Respiratory 16 16 16 Rate Blood Pressure 65/33 68/31 79/49 O2 Sat by Pulse 99 98 97 Oximetry Fraction of Inspired Oxygen (FIO2) 08/15/23 08/15/23 08/15/23 21:27 21:30 21:40 Temperature Pulse Rate 64 98 Respiratory 16 16 Rate Blood Pressure 160/82 95/51 O2 Sat by Pulse 97 98 Oximetry Fraction of 50 Inspired Oxygen (FIO2) 08/15/23 08/15/23 08/15/23 21:54 22:53 23:22 Temperature Pulse Rate 93 107 H Respiratory 16 16 25 H Rate Blood Pressure 89/57 79/42 O2 Sat by Pulse 98 98 95 Oximetry Fraction of Inspired Oxygen (FIO2) - Reevaluation(s) Reevaluation #1: 08/15/23 18:30 Record is reviewed Reevaluation #2: 08/15/23 22:26 Patient has worsening symptoms throughout ER stay Reevaluation #3: 08/15/23 22:26 Patient is inability to be informed of results as she is currently intubated getting pressors Reevaluation #4: Was pt. sent in by a medical professional or institution (, PA, [employer]ER, urgent care, hospital, or jail...) When possible be specific @ -no Did you speak to anyone other than the patient for history (EMS, parent, family, police, friend...)? What history was obtained from this source @ -no Did you review nursing and triage notes (agree or disagree)? Why? @ -agree Are old charts reviewed (outside hosp., previous admission, EMS record, old EKG, old radiological studies, urgent care reports/EKG's, jail records)? Report findings @ -yes Differential Diagnosis (chest pain, altered mental status, abdominal pain women, abdominal pain men, vaginal bleeding, weakness, fever, dyspnea, syncope, headache, dizziness, GI bleed, back pain, seizure, CVA, palpatations, mental health, musculoskeletal)? @ -prior EKG interpreted by me (3pts min.). @ -yes X-rays interpreted by me (1pt min.). @ -yes n positive for pneumonia CT interpreted by me (1pt min.). @ -no U/S interpreted by me (1pt. min.). @ -no What testing was considered but not performed or refused? (CT, X-rays, U/S, labs)? Why? @ -none What meds were considered but not given or refused? Why? @ -none Did you discuss the management of the patient with other professionals (professionals i.e. , PA, [employer]KER, lab, RT, psych nurse, social scientist, paediatric physiotherapist, teacher, fisheries enforcement officer, telephonic nurse case manager)? Give summary @ -no Was smoking cessation discussed for >3mins.? @ -no Were there social determinants of health that impacted care today? How? (Homelessness, low income, unemployed, alcoholism, drug addiction, transportation, low edu. Level, literacy, decrease access to med. care, retirement, rehab)? @ -none Was there de-escalation of care discussed even if they declined (Discuss DNR or withdrawal of care, Hospice)? DNR status @ -no What co-morbidities impacted this encounter? (DM, HTN, Smoking, COPD, CAD, Cancer, CVA, ARF, Chemo, Hep., AIDS, mental health diagnosis, sleep apnea, morbid obesity)? @ -none Was patient admitted / discharged? Hospital course, mention meds given and route, prescriptions, significant lab abnormalities, going to OR and other pertinent info. @ - 53 female with significant and severe respiratory failure altered mental status sepsis pneumonia urinary tract infection with history of same. Patient will be admitted for IV antibiotics and ICU due to intubation respiratory failure and needing for pressors for blood pressure support Admitted Was critical care preformed (if so, how long)? @ -yes95 Undiagnosed new problem with uncertain prognosis? @ -no Drug Therapy requiring intensive monitoring for toxicity (Heparin, Nitro, Insulin, Cardizem)? @ -no Were any procedures done? @ -no Diagnosis/symptom? @ -Pneumonia UTI sepsis respiratory failure altered mental status Acute, or Chronic, or Acute on Chronic? @ -Acute Uncomplicated (without systemic symptoms) or Complicated (systemic symptoms)? @ -Complicated Side effects of treatment? @ -no Exacerbation, Progression, or Severe Exacerbation? @ -exacerbation Poses a threat to life or bodily function? How? (Chest pain, [place], CA, pneumonia, PE, COPD, DKA, ARF, appy, cholecystitis, CVA, Diverticulitis, Homicidal, Suicidal, threat to staff... and all critical care pts) @ -yes significant respiratory distress respiratory failure and sepsis Reevaluation #5: Differential Altered Mental Status: Hypoglycemia, DKA, hypercapnia, ETOH, overdose, CO poisoning, trauma, myxedema coma, HTN encephalopathy, infection, encephalitis, psychosis, intercranial hemorrhage, hepatic encephalopathy, meningitis, CVA, this is not meant to be an all-inclusive list Differential Fever: Pneumonia, viral URI, endocarditis, myocarditis, pericarditis, otitis, sinusitis, peritonsillar Abscess, retropharyngeal Abscess, epiglottitis, per itonitis, appendicitis, Juju cystitis, diverticulitis, hepatitis, colitis, UTI, PID, TOA, pyelonephritis, prostatitis, epididymitis, meningitis, encephalitis, pulmonary embolism, CVA, thyroid storm, pancreatitis, adrenal crisis, cavernous sinus thrombosis, this is not meant to be an all-inclusive list. - Consultations Consultation #1: Spoke with [facility] who agrees to admit this patient Consultation #2: With Dr. Jung who agrees patient for the ICU Procedures - Central Line Placement Right Femoral Consent Obtained: verbal consent Patient Placed on Monitor/Pulse Ox: Yes MD Prep: mask, gown, other Central Line Prep: Povidone-Iodine 1% Local Anesthesia Used: Lidocaine 1% Ultrasound Used for Placement: Yes Central Line Lumen Inserted: triple Central Line Position: good blood return, all ports aspirated, flushed, capped, sutured in place with 2-0 silk Dressing Applied: Tegaderm Patient Tolerated Procedure: well Complications: none - Intubation Sedative: Versed Laryngoscope: Jessica Size: 4 ET Tube Size: 8 ET Tube Uncuffed: Yes Tube Secured Location: teeth Tube Placement Confirmation: visualized tube passing through cords, equal breath sounds bilaterally Patient Tolerated Procedure: well Intubation Complications: none - Sepsis Sepsis Focused Exam #1 Time Sepsis Criteria Met: 21:00 Sepsis Focused Exam Date: 08/15/23 Sepsis Focused Exam Time: 23:55 Sepsis Focused Exam Complete: Yes Vital Signs & RN Notes Reviewed: Yes Capillary Refill: < 2 Seconds: Fingers, Toes Peripheral Pulses: Normal: Radial (R), Radial (L), Posterior Tibialis (R), Posterior Tibialis (L), Dorsalis Pedis (R), Dorsalis Pedis (L) Skin Color: Flushed Respiratory Exam: respiratory distress, wheezes, rales, rhonchi, decreased breath sounds Cardiovascular Exam: tachycardia Medical Decision Making - Medical Decision Making 53 female with significant and severe respiratory failure altered mental status sepsis pneumonia urinary tract infection with history of same. Patient will be admitted for IV antibiotics and ICU due to intubation respiratory failure and needing for pressors for blood pressure support - Lab Data Result diagrams: 08/23/23 06:31 08/23/23 06:31 Lab Results 08/15/23 08/15/23 08/15/23 Range/Units 18:10 18:12 18:29 WBC 8.7 (3.8-10.6) k/uL RBC 4.22 (3.80-5.40) m/uL Hgb 11.5 (11.4-16.0) gm/dL Hct 36.3 (34.0-46.0) % MCV 86.0 (80.0-100.0) fL MCH 27.3 (25.0-35.0) pg MCHC 31.7 (31.0-37.0) g/dL RDW 16.0 H (11.5-15.5) % Plt Count 269 (150-450) k/uL MPV 7.4 Neutrophils % 93 % Lymphocytes % 3 % Monocytes % 3 % Eosinophils % 1 % Basophils % 0 % Neutrophils # 8.1 H (1.3-7.7) k/uL Lymphocytes # 0.3 L (1.0-4.8) k/uL Monocytes # 0.3 (0-1.0) k/uL Eosinophils # 0.1 (0-0.7) k/uL Basophils # 0.0 (0-0.2) k/uL PT (10.0-12.5) sec INR (<1.2) APTT (22.0-30.0) sec Sample Site ABG pH (7.35-7.45) ABG pCO2 (35-45) mmHg ABG pO2 (83-108) mmHg ABG HCO3 (21-25) mmol/L ABG O2 Saturation (94-97) % ABG Base Excess mmol/L Richard Test VBG pH (7.31-7.41) VBG pCO2 (37-51) mmHg VBG HCO3 (24-28) mmol/L FiO2 % Sodium (137-145) mmol/L Potassium (3.5-5.1) mmol/L Chloride (98-107) mmol/L Carbon Dioxide (22-30) mmol/L Anion Gap mmol/L BUN (7-17) mg/dL Creatinine (0.52-1.04) mg/dL Est GFR (CKD-EPI)AfAm (>60 ml/min/1.73 sqM) Est GFR (CKD-EPI)NonAf (>60 ml/min/1.73 sqM) Glucose (74-99) mg/dL POC Glucose (mg/dL) 185 H (70-110) mg/dL POC Glu Benzene Operator ID Angel Fan Lactic Ac Sepsis Rflx Plasma Lactic Acid Armando (0.7-2.0) mmol/L Calcium (8.4-10.2) mg/dL Phosphorus (2.5-4.5) mg/dL Magnesium (1.6-2.3) mg/dL Total Bilirubin (0.2-1.3) mg/dL AST (14-36) U/L ALT (4-34) U/L Alkaline Phosphatase (38-126) U/L Total Protein (6.3-8.2) g/dL Albumin (3.5-5.0) g/dL Procalcitonin (0.02-0.09) ng/mL TSH (0.465-4.680) mIU/L Urine Color Colorless Urine Appearance Cloudy H (Clear) Urine pH 7.5 (5.0-8.0) Ur Specific [place] 1.010 (1.001-1.035) Urine Protein 1+ H (Negative) Urine Glucose (UA) Negative (Negative) Urine Ketones Negative (Negative) Urine Blood Trace H (Negative) Urine Nitrite Negative (Negative) Urine Bilirubin Negative (Negative) Urine Urobilinogen <2.0 (<2.0) mg/dL Ur Leukocyte Esterase Large H (Negative) Urine RBC 20 H (0-5) /hpf Urine WBC 48 H (0-5) /hpf Ur Squamous Epith Cells 1 (0-4) /hpf Urine Bacteria Occasional H (None) /hpf Urine Mucus Rare H (None) /hpf 08/15/23 08/15/23 08/15/23 Range/Units 18:29 18:29 18:29 WBC (3.8-10.6) k/uL RBC (3.80-5.40) m/uL Hgb (11.4-16.0) gm/dL Hct (34.0-46.0) % MCV (80.0-100.0) fL MCH (25.0-35.0) pg MCHC (31.0-37.0) g/dL RDW (11.5-15.5) % Plt Count (150-450) k/uL MPV Neutrophils % % Lymphocytes % % Monocytes % % Eosinophils % % Basophils % % Neutrophils # (1.3-7.7) k/uL Lymphocytes # (1.0-4.8) k/uL Monocytes # (0-1.0) k/uL Eosinophils # (0-0.7) k/uL Basophils # (0-0.2) k/uL PT 11.7 (10.0-12.5) sec INR 1.1 (<1.2) APTT 23.5 (22.0-30.0) sec Sample Site ABG pH (7.35-7.45) ABG pCO2 (35-45) mmHg ABG pO2 (83-108) mmHg ABG HCO3 (21-25) mmol/L ABG O2 Saturation (94-97) % ABG Base Excess mmol/L Richard Test VBG pH (7.31-7.41) VBG pCO2 (37-51) mmHg VBG HCO3 (24-28) mmol/L FiO2 % Sodium 139 (137-145) mmol/L Potassium 4.3 (3.5-5.1) mmol/L Chloride 105 (98-107) mmol/L Carbon Dioxide 24 (22-30) mmol/L Anion Gap 10 mmol/L BUN 23 H (7-17) mg/dL Creatinine 0.93 (0.52-1.04) mg/dL Est GFR (CKD-EPI)AfAm 82 (>60 ml/min/1.73 sqM) Est GFR (CKD-EPI)NonAf 71 (>60 ml/min/1.73 sqM) Glucose 171 H (74-99) mg/dL POC Glucose (mg/dL) (70-110) mg/dL POC Glu Benzene Operator ID Lactic Ac Sepsis Rflx Plasma Lactic Acid Armando 4.5 H* (0.7-2.0) mmol/L Calcium 9.0 (8.4-10.2) mg/dL Phosphorus 3.4 (2.5-4.5) mg/dL Magnesium 1.6 (1.6-2.3) mg/dL Total Bilirubin 0.8 (0.2-1.3) mg/dL AST 31 (14-36) U/L ALT 24 (4-34) U/L Alkaline Phosphatase 76 (38-126) U/L Total Protein 6.3 (6.3-8.2) g/dL Albumin 3.8 (3.5-5.0) g/dL Procalcitonin (0.02-0.09) ng/mL TSH 2.400 (0.465-4.680) mIU/L Urine Color Urine Appearance (Clear) Urine pH (5.0-8.0) Ur Specific [place] (1.001-1.035) Urine Protein (Negative) Urine Glucose (UA) (Negative) Urine Ketones (Negative) Urine Blood (Negative) Urine Nitrite (Negative) Urine Bilirubin (Negative) Urine Urobilinogen (<2.0) mg/dL Ur Leukocyte Esterase (Negative) Urine RBC (0-5) /hpf Urine WBC (0-5) /hpf Ur Squamous Epith Cells (0-4) /hpf Urine Bacteria (None) /hpf Urine Mucus (None) /hpf 08/15/23 08/15/23 08/15/23 Range/Units 18:29 18:29 19:06 WBC (3.8-10.6) k/uL RBC (3.80-5.40) m/uL Hgb (11.4-16.0) gm/dL Hct (34.0-46.0) % MCV (80.0-100.0) fL MCH (25.0-35.0) pg MCHC (31.0-37.0) g/dL RDW (11.5-15.5) % Plt Count (150-450) k/uL MPV Neutrophils % % Lymphocytes % % Monocytes % % Eosinophils % % Basophils % % Neutrophils # (1.3-7.7) k/uL Lymphocytes # (1.0-4.8) k/uL Monocytes # (0-1.0) k/uL Eosinophils # (0-0.7) k/uL Basophils # (0-0.2) k/uL PT (10.0-12.5) sec INR (<1.2) APTT (22.0-30.0) sec Sample Site ABG pH (7.35-7.45) ABG pCO2 (35-45) mmHg ABG pO2 (83-108) mmHg ABG HCO3 (21-25) mmol/L ABG O2 Saturation (94-97) % ABG Base Excess mmol/L Richard Test VBG pH 7.42 H (7.31-7.41) VBG pCO2 40 (37-51) mmHg VBG HCO3 26 (24-28) mmol/L FiO2 % Sodium (137-145) mmol/L Potassium (3.5-5.1) mmol/L Chloride (98-107) mmol/L Carbon Dioxide (22-30) mmol/L Anion Gap mmol/L BUN (7-17) mg/dL Creatinine (0.52-1.04) mg/dL Est GFR (CKD-EPI)AfAm (>60 ml/min/1.73 sqM) Est GFR (CKD-EPI)NonAf (>60 ml/min/1.73 sqM) Glucose (74-99) mg/dL POC Glucose (mg/dL) (70-110) mg/dL POC Glu Benzene Operator ID Lactic Ac Sepsis Rflx Y Plasma Lactic Acid Armando (0.7-2.0) mmol/L Calcium (8.4-10.2) mg/dL Phosphorus (2.5-4.5) mg/dL Magnesium (1.6-2.3) mg/dL Total Bilirubin (0.2-1.3) mg/dL AST (14-36) U/L ALT (4-34) U/L Alkaline Phosphatase (38-126) U/L Total Protein (6.3-8.2) g/dL Albumin (3.5-5.0) g/dL Procalcitonin 62.60 H (0.02-0.09) ng/mL TSH (0.465-4.680) mIU/L Urine Color Urine Appearance (Clear) Urine pH (5.0-8.0) Ur Specific [place] (1.001-1.035) Urine Protein (Negative) Urine Glucose (UA) (Negative) Urine Ketones (Negative) Urine Blood (Negative) Urine Nitrite (Negative) Urine Bilirubin (Negative) Urine Urobilinogen (<2.0) mg/dL Ur Leukocyte Esterase (Negative) Urine RBC (0-5) /hpf Urine WBC (0-5) /hpf Ur Squamous Epith Cells (0-4) /hpf Urine Bacteria (None) /hpf Urine Mucus (None) /hpf 08/15/23 08/15/23 08/15/23 Range/Units 20:34 21:14 21:45 WBC (3.8-10.6) k/uL RBC (3.80-5.40) m/uL Hgb (11.4-16.0) gm/dL Hct (34.0-46.0) % MCV (80.0-100.0) fL MCH (25.0-35.0) pg MCHC (31.0-37.0) g/dL RDW (11.5-15.5) % Plt Count (150-450) k/uL MPV Neutrophils % % Lymphocytes % % Monocytes % % Eosinophils % % Basophils % % Neutrophils # (1.3-7.7) k/uL Lymphocytes # (1.0-4.8) k/uL Monocytes # (0-1.0) k/uL Eosinophils # (0-0.7) k/uL Basophils # (0-0.2) k/uL PT (10.0-12.5) sec INR (<1.2) APTT (22.0-30.0) sec Sample Site Right Radial ABG pH 7.35 (7.35-7.45) ABG pCO2 46 H (35-45) mmHg ABG pO2 283 H (83-108) mmHg ABG HCO3 25 (21-25) mmol/L ABG O2 Saturation 100.4 H (94-97) % ABG Base Excess -0.8 mmol/L Richard Test Yes VBG pH (7.31-7.41) VBG pCO2 (37-51) mmHg VBG HCO3 (24-28) mmol/L FiO2 100 % Sodium (137-145) mmol/L Potassium (3.5-5.1) mmol/L Chloride (98-107) mmol/L Carbon Dioxide (22-30) mmol/L Anion Gap mmol/L BUN (7-17) mg/dL Creatinine (0.52-1.04) mg/dL Est GFR (CKD-EPI)AfAm (>60 ml/min/1.73 sqM) Est GFR (CKD-EPI)NonAf (>60 ml/min/1.73 sqM) Glucose (74-99) mg/dL POC Glucose (mg/dL) (70-110) mg/dL POC Glu Benzene Operator ID Lactic Ac Sepsis Rflx Y Plasma Lactic Acid Armando 3.1 H* (0.7-2.0) mmol/L Calcium (8.4-10.2) mg/dL Phosphorus (2.5-4.5) mg/dL Magnesium (1.6-2.3) mg/dL Total Bilirubin (0.2-1.3) mg/dL AST (14-36) U/L ALT (4-34) U/L Alkaline Phosphatase (38-126) U/L Total Protein (6.3-8.2) g/dL Albumin (3.5-5.0) g/dL Procalcitonin (0.02-0.09) ng/mL TSH (0.465-4.680) mIU/L Urine Color Urine Appearance (Clear) Urine pH (5.0-8.0) Ur Specific [place] (1.001-1.035) Urine Protein (Negative) Urine Glucose (UA) (Negative) Urine Ketones (Negative) Urine Blood (Negative) Urine Nitrite (Negative) Urine Bilirubin (Negative) Urine Urobilinogen (<2.0) mg/dL Ur Leukocyte Esterase (Negative) Urine RBC (0-5) /hpf Urine WBC (0-5) /hpf Ur Squamous Epith Cells (0-4) /hpf Urine Bacteria (None) /hpf Urine Mucus (None) /hpf - EKG Data -: EKG Interpreted by Me (EKG is sinus tachycardia 139 MS 146 QRS 88 QTc 442) - Radiology Data Radiology results: report reviewed (Chest x-ray is positive for pneumonia), image reviewed Critical Care Time Critical Care Time: Yes Total Critical Care Time: 95 Disposition Clinical Impression: Altered mental status, Exacerbation of multiple sclerosis, Weakness, Pneumonia, Delirium due to general medical condition, UTI (urinary tract infection), Acute respiratory failure, Sepsis, Hypotension, Hypoxia, Respiratory failure Disposition: ADMITTED IP TO THIS HOSP Condition: Critical Is patient prescribed a controlled substance at d/c from ED?: No Time of Disposition: 22:30
[2023-08-15] MEDS: SODIUM CHLORIDE 0.9% 500 ML 500 ML IV SCH (18:34)
[2023-08-15] MEDS: SODIUM CHLORIDE 0.9% 1,000 ML IV STA (18:35)
[2023-08-15] MEDS: SODIUM CHLORIDE 0.9% 500 ML 500 ML IV STA (18:40)
[2023-08-15] MEDS: SODIUM CHLORIDE 0.9% 1,000 ML IV SCH (18:41)
[2023-08-15 18:43] LABS: VBG PH 7.42 (7.31-7.41)
[2023-08-15 18:56] LABS: INR 1.1 (<1.2); Partial Thromboplastin Time 23.5 sec (22.0-30.0); Prothrombin Time 11.7 sec (10.0-12.5)
[2023-08-15 18:57] LABS: Basophils % (A) 0 %; Eosinophils # (A) 0.1 k/uL (0-0.7); Eosinophils % (A) 1 %; HCT 36.3 % (34.0-46.0); HGB 11.5 gm/dL (11.4-16.0); Lymphocytes # (A) 0.3 k/uL (1.0-4.8); Lymphocytes % (A) 3 %; MCH 27.3 pg (25.0-35.0); MCHC 31.7 g/dL (31.0-37.0); Mean Platelet Volume 7.4; Monocytes # (A) 0.3 k/uL (0-1.0); Monocytes % (A) 3 %; Neutrophils # (A) 8.1 k/uL (1.3-7.7); Neutrophils % (A) 93 %; Platelet Count 269 k/uL (150-450); RBC 4.22 m/uL (3.80-5.40); WBC 8.7 k/uL (3.8-10.6)
[2023-08-15 19:00] LABS: Appearance,Urine Cloudy (Clear); Bacteria,Urine Occasional /hpf; Bilirubin,Urine Negative (Negative); Blood,Urine Trace (Negative); Color,Urine Colorless; Glucose,Urine (UA) Negative (Negative); Ketones,Urine Negative (Negative); Leukocyte Esterase,Urine Large (Negative); Mucus,Urine Rare /hpf; Nitrite,Urine Negative (Negative); PH, Urine 7.5 (5.0-8.0); Protein,Urine 1+ (Negative); RBC,Urine 20 /hpf (0-5); Squamous Epithelial Cell,Urine 1 /hpf (0-4); Urobilinogen,Urine <2.0 mg/dL (<2.0); WBC,Urine 48 /hpf (0-5)
[2023-08-15 19:17] LABS: ALT 24 U/L (4-34); AST 31 U/L (14-36); Albumin 3.8 g/dL (3.5-5.0); Alkaline Phosphatase 76 U/L (38-126); Anion Gap 10 mmol/L; Blood Urea Nitrogen 23 mg/dL (7-17); Carbon Dioxide 24 mmol/L (22-30); Chloride 105 mmol/L (98-107); Glucose 171 mg/dL (74-99); Magnesium 1.6 mg/dL (1.6-2.3); Phosphorus 3.4 mg/dL (2.5-4.5); Potassium 4.3 mmol/L (3.5-5.1); Sodium 139 mmol/L (137-145); Total Bilirubin 0.8 mg/dL (0.2-1.3); Total Protein 6.3 g/dL (6.3-8.2)
[2023-08-15 19:18] LABS: African American GFR (CKD) 82 (>60 ml/min/1.73 sqM); Non-African American GFR(CKD) 71 (>60 ml/min/1.73 sqM)
[2023-08-15] MEDS: NALOXONE 0.4 MG/ML 1 ML VIAL IVP STA (19:41)
[2023-08-15] MEDS: HYDROCORTISONE SUCCINATE 100 MG/2 ML VIAL IV STA (19:43)
[2023-08-15] MEDS: MIDAZOLAM 1 MG/ML 5 ML VIAL IV STA ×2 (20:16→20:34)
[2023-08-15] MEDS: NOREPINEPHRINE 32 MG in SODIUM CHLORIDE 0.9% 218 ML IV ONE (21:03)
[2023-08-15 21:24] LABS: ABG Base Excess -0.8 mmol/L; ABG HCO3 25 mmol/L (21-25); ABG Oxygen Saturation 100.4 % (94-97); ABG PCO2 46 mmHg (35-45); ABG PH 7.35 (7.35-7.45); ABG PO2 283 mmHg (83-108); Allen Test Performed? Yes
--- NOTE | 2023-08-15 21:28 | XR ---
EXAMINATION TYPE: XR chest 2V DATE OF EXAM: 08/15/2023 COMPARISON: 06/19/2023 INDICATION: Fever TECHNIQUE: Frontal and lateral views of the chest are obtained. FINDINGS: The heart size is enlarged. The pulmonary vasculature is normal. Bibasilar infiltrates are present greater at the left base. IMPRESSION: 1. Interval correlation recommended for left lower lobe pneumonia. 2. Cardiomegaly
[2023-08-15] MEDS: SODIUM CHLORIDE 0.9% 2,000 ML IV ONE (21:50)
--- NOTE | 2023-08-15 22:03 | XR ---
EXAMINATION TYPE: XR chest 1V portable DATE OF EXAM: 08/15/2023 COMPARISON: 08/15/2023 earlier exam INDICATION: Central line and nasogastric tube TECHNIQUE: Single frontal view of the chest is obtained. FINDINGS: The heart size is normal. The pulmonary vasculature is normal. Mild left lower lobe infiltrate is present. Chronic atelectasis or pneumonia. There is been interval placement of an endotracheal tube with the tip 6.9 cm above the jose e. Nasoga stric tube traverses the thorax with the tip in the left upper quadrant of the abdomen. IMPRESSION: 1. Mild left lower lobe infiltrate. Correlate for pneumonia. 2. Lines and catheters discussed above.
[2023-08-15] MEDS ORDERED: NALOXONE 0.4 MG/ML 1 ML VIAL IV PRN (22:21)
[2023-08-15] MEDS ORDERED: VANCOMYCIN IV PER PHARMACY 1 EACH MISC MISCELLANE PRN (22:24)
[2023-08-15] MEDS ORDERED: LEVOFLOXACIN 750MG-D5W PMX 750 MG in DEXTROSE/WATER 1 150ML.BAG IVPB STA (22:24)
[2023-08-15] MEDS: methylPREDNISolone SOD SUCCI 125 MG/2 ML VIAL IV STA (23:01)
[2023-08-15 23:24] LABS: Glucose,Whole Blood 174 mg/dL (70-110)
[2023-08-15] MEDS: PIPERACILLIN-TAZOBACTAM 3.375 GM in SODIUM CHLORIDE 0.9% 100 ML IVPB STA (23:48)
[2023-08-15] MEDS: HYDROCORTISONE SUCCINATE 100 MG/2 ML VIAL IV SCH (23:49)
[2023-08-15] MEDS: IPRATROPIUM-ALBUTEROL 3 ML NEB INHALATION PRN (23:54)
[2023-08-16] MEDS: LEVOFLOXACIN 750MG-D5W PMX 750 MG in DEXTROSE/WATER 1 150ML.BAG IVPB ONE (00:47)
[2023-08-16] MEDS: VANCOMYCIN 2,250 MG in SODIUM CHLORIDE 0.9% 500 ML 500 ML IVPB ONE (03:22)
[2023-08-16 06:27] LABS: ALT 46 U/L (4-34); AST 53 U/L (14-36); African American GFR (CKD) >90 (>60 ml/min/1.73 sqM); Albumin 3.5 g/dL (3.5-5.0); Alkaline Phosphatase 68 U/L (38-126); Anion Gap 14 mmol/L; Blood Urea Nitrogen 22 mg/dL (7-17); Calcium 7.9 mg/dL (8.4-10.2); Carbon Dioxide 16 mmol/L (22-30); Chloride 112 mmol/L (98-107); Glucose 246 mg/dL (74-99); Lipase 27 U/L (23-300); Magnesium 1.5 mg/dL (1.6-2.3); Non-African American GFR(CKD) 82 (>60 ml/min/1.73 sqM); Sodium 142 mmol/L (137-145); Total Bilirubin 0.9 mg/dL (0.2-1.3)
[2023-08-16 06:28] LABS: Potassium 4.7 mmol/L (3.5-5.1)
[2023-08-16 06:37] LABS: ABG Base Excess -4.6 mmol/L; ABG HCO3 21 mmol/L (21-25); ABG PCO2 43 mmHg (35-45); ABG PO2 180 mmHg (83-108); ABG TCO2 23 mmol/L (19-24); Allen Test Performed? Yes
[2023-08-16 06:44] LABS: HGB 12.1 gm/dL (11.4-16.0); Hypochromasia Marked; MCH 27.7 pg (25.0-35.0); MCV 89.6 fL (80.0-100.0); Mean Platelet Volume 7.6; Platelet Count 254 k/uL (150-450); RBC 4.35 m/uL (3.80-5.40)
[2023-08-16 06:58] LABS: Band Neutrophils % 42 %; Lymphocytes # (M) 0.48 k/uL (1.0-4.8); Metamyelocytes # (M) 0.96 k/uL (0); Metamyelocytes % 4 %; Neutrophils % (M) 52 %; Nucleated Red Blood Cells 0 /100 WBC (0-0); Total Cells Counted 200
--- NOTE | 2023-08-16 07:31 | XR ---
EXAMINATION TYPE: XR chest 1V DATE OF EXAM: 08/16/2023 5:40 AM CLINICAL INDICATION:Female, 53 years old with history of pain; H COMPARISON: Chest radiographs from 08/15/2023. TECHNIQUE: XR chest 1V Frontal view of the chest. FINDINGS: Lungs/Pleura: Right perihilar and left midlung airspace opacities new from prior. There is no evidence of pleural effusion, focal consolidation, or pneumothorax. Pulmonary vascularity: Unremarkable. Heart/mediastinum: Cardiomediastinal silhouette is unremarkable. Musculoskeletal: No acute osseous pathology. Other findings: None Lines/Tubes: Ventriculoperitoneal shunt tubing noted along the right aspect of the radiograph. IMPRESSION: Right perihilar and left midlung airspace opacities new from prior. Correlate for developing pneumoni a.
[2023-08-16] MEDS ORDERED: Magnesium Replacement Protocol 1 EACH MISC MISCELLANE PRN (07:32)
[2023-08-16] MEDS: IPRATROPIUM-ALBUTEROL 3 ML NEB INHALATION PRN (08:12)
[2023-08-16] MEDS: PIPERACILLIN-TAZOBACTAM 3.375 GM in SODIUM CHLORIDE 0.9% 100 ML IVPB SCH (08:24)
[2023-08-16] MEDS: ENOXAPARIN 40 MG/0.4 ML SYRINGE SQ SCH (08:24)
[2023-08-16] MEDS: PANTOPRAZOLE 40 MG/10 ML VIAL IVP SCH (08:24)
[2023-08-16] MEDS: MAGNESIUM SULFATE-D5W PMX 1 GM in DEXTROSE/WATER 1 100ML.BAG IVPB SCH (08:24)
[2023-08-16] MEDS: CHLORHEXIDINE GLUCONATE 15 ML CUP MUCOUS MEM SCH (08:55)
--- NOTE | 2023-08-16 10:03 | P.CNPUL ---
History of Present Illness Consult date: 08/16/23 Chief complaint: altered mentation History of present illness: This is a 54-year-old female patient, currently intubated on mechanical ventilator. She arrived to the hospital from the skilled nursing because of altered mental status and sepsis. The patient was found laying in bed, lethargic, extremely weak. She had a temperature of 102.3. Blood sugar was 190. She was given a bolus of 500 cc. In the ED, the patient was given additional IV fluids a total of 3 L. Events progressed since then. Details are not available and ultimately the patient was intubated and placed on the mechanical ventilator. Based on my review of the records, the patient has received a total of 4 L of IV fluids and she was started also on antibiotics and the patient is currently on a combination of Rocephin, Levaquin and vancomycin. Based on my review of the records, the patient is a skilled nursing resident she has advanced multiple sclerosis with stage IV buttocks wounds and previous cultures from those wounds from 06/19/2023 yielded a combination of E. coli, Proteus and Enterococcus faecalis. She also has had previous urine tract infection with Pseudomonas aeruginosa and Enterococcus faecalis. The patient also had staph septicemia with MRSA based on positive blood cultures from 06/19/2023. Repeat blood cultures from 06/21/2023 was negative. She was at a skilled nursing and she was eating a combination of cefepime and vancomycin and she completed antibiotic course on 08/24/2015 07/06/2023. At this point in time, the patient is intubated on mechanical ventilator, she is sedated with propofol which is running at 3035 mcg/kg/min IV fluids are in the form of normal saline at rate of 130 cc an hour. The patient is off pressors. Note that she required pressors overnight and the norepinephrine was running as high as 0.08 mcg/kg/min. The patient is currently on the mechanical ventilator assist-control mode, she is at the rate of 16, tidal volume of 450, FiO2 of 50% with a PEEP of 5. The chest x-ray is showing some limited bibasilar pulmonary infiltrates. Otherwise no clear airspace disease or consolidation. Blood gas from this morning shows a pH of 7.3 with a pCO2 of 43 and pO2 of 180. The white cell count is at 24, hemoglobin 12.1 and platelet count is 253. Sodium is at 142, potassium is at 4.7, BUN is 23 with a creatinine of 0.8. LFTs are essentially within normal limits. UA showed 48 WBCs and 20 RBCs. Review of Systems ROS unobtainable: due to endotracheal tube Past Medical History Past Medical History: Hyperlipidemia, Musculoskeletal Disorder, Neurologic Disorder, Pneumonia, Renal Disease, Skin Disorder Additional Past Medical History / Comment(s): Multiple sclerosis stage IV- wheelchair bound, L side weaker than right, past renal failure with hemodialysis-last time was July 2016, neurogenic bladder with indwelling [place], past sepsis, iron deficiency anemia, wounds present on bilateral gluteal folds and sacral area History of Any Multi-Drug Resistant Organisms: ESBL, MRSA, VRE Date of last positivie culture/infection: 06/19/23 MRSA; 06/19/23 ESBL; 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 MDRO Source:: Blood-MRSA; Urine-VRE and ESBL Past Surgical History: No Surgical Hx Reported Additional Past Surgical History / Comment(s): LP, debridement decubitus sacral ulcer, hemodialysis cath since removed, picc lines Past Anesthesia/Blood Transfusion Reactions: No Reported Reaction Additional Past Anesthesia/Blood Transfusion Reaction / Comment(s): NEVER HAD ANY GENERAL ANES Past Psychological History: No Psychological Hx Reported Additional Psychological History / Comment(s): Pt resides at [facility]. She states she is mostly wheelchair bound-sit to stand device to chair. She has an IDC. Pt feeds herself. Smoking Status: Never smoker Past Alcohol Use History: None Reported Additional Past Alcohol Use History / Comment(s): Patient is a lifelong nonsmoker. She denies any alcohol abuse. Past Drug Use History: None Reported - Past Family History Father History Unknown: Yes Additional Family Medical History / Comment(s): PTS DAD LIVED IN [place]- SHE'S NOT SURE WHAT HE FROM. HE HAD HYPOTENSION. Mother Family Medical History: Coronary Artery Disease (CAD), Diabetes Mellitus, Hyper lipidemia, Hypertension Additional Family Medical History / Comment(s): CARDIAC STENTS Medications and Allergies Home Medications Medication Instructions Recorded Confirmed Type Potassium Chloride ER [K-Dur 20] 20 meq PO BID 01/12/19 06/19/23 History Aspirin 81 mg PO DAILY 09/15/19 06/19/23 History Sennosides [Senna] 8.6 mg PO BID 01/31/20 06/19/23 History Atorvastatin [Lipitor] 10 mg PO HS 09/22/21 06/19/23 History Diroximel Fumarate [Vumerity] 462 mg PO BID 09/22/21 06/19/23 History Levothyroxine Sodium [Synthroid] 75 mcg PO HS 09/22/21 06/19/23 History Ascorbic Acid [Vitamin C] 500 mg PO DAILY 05/14/22 06/19/23 History Furosemide [Lasix] 20 mg PO DAILY 05/14/22 06/19/23 History Pro-Stat Liquid (Amino 30 ml PO TID@0700,1100,1600 05/14/22 06/19/23 History Acids-Protein Hydrolysate) Baclofen 10 mg PO TID@0700,1300,1900 12/22/22 06/19/23 History Multivitamins, Thera [Multivitamin 1 tab PO DAILY 12/22/22 06/19/23 History (formulary)] Acetaminophen [Tylenol Extra 500 mg PO ONCE 06/19/23 06/19/23 History Strength] Folic Acid 0.4 mg PO BID 06/19/23 06/19/23 History Lansoprazole [Prevacid] 15 mg PO DAILY 06/19/23 06/19/23 History Naloxone HCl 0.4 mg SQ DIRECTED PRN 06/19/23 06/19/23 History Nitroglycerin Sl Tabs [Nitrostat] 0.4 mg SUBLINGUAL ONCE 06/19/23 06/19/23 History Gabapentin [Neurontin] 300 mg PO BID 3 Days #6 cap 06/25/23 Rx HYDROcodone/APAP 5-325MG [[place] 1 tab PO QID@07,,, 3 Days 06/25/23 Rx 5-325] #10 tab Vancomycin 1,500 mg IVPB Q24HR #12 each 06/25/23 Rx Allergies Allergy/AdvReac Type Severity Reaction Status Date / Time adhesive tape Allergy Rash/Hives Verified 06/19/23 09:49 cinnamon Allergy Rash/Hives Verified 06/19/23 09:49 Physical Exam Vitals: Vital Signs Temp Pulse Resp BP Pulse Ox FiO2 08/16/23 09:15 97 17 105/59 100 08/16/23 09:00 100 18 105/56 100 08/16/23 08:45 96 17 97/53 100 05/27/24 08:30 99 17 114/70 100 05 08:22 80 05 08:15 86 17 116/68 100 05 08:12 79 05 08:00 98.2 F 67 16 118/63 100 50 08/16/23 07:48 50 05 07:45 61 16 118/66 100 05 07:30 66 17 114/61 100 08/16/23 07:15 62 17 118/66 100 05 07:00 71 17 126/65 100 08/16/23 06:45 77 16 120/70 100 08/16/23 06:30 80 16 116/80 100 08/16/23 06:15 91 16 130/68 100 08/16/23 06:00 81 16 144/79 100 08/16/23 05:45 85 16 136/70 100 08/16/23 05:30 74 17 131/73 100 08/16/23 05:15 74 17 131/74 100 08/16/23 05:00 75 17 132/75 100 08/16/23 04:45 78 18 130/73 99 05 04:30 86 17 131/72 99 05 04:21 85 08/16/23 04:15 86 19 128/76 100 05 04:03 90 50 08/16/23 04:00 98.2 F 93 16 130/78 100 50 08/16/23 03:45 93 16 128/85 100 08/16/23 03:30 86 16 128/79 99 08/16/23 03:15 81 16 128/80 05 03:00 82 16 131/75 99 05 02:45 90 17 135/81 98 05 02:30 90 16 131/68 05 02:15 95 16 121/68 99 05 02:00 96 16 124/71 99 05 01:45 99 16 114/69 99 08/16/23 01:30 99 16 112/68 99 05 01:15 100 16 109/63 99 05 01:00 98 16 113/56 99 08/16/23 00:45 96 16 108/62 99 08/16/23 00:30 98 16 109/68 100 08/16/23 00:19 98 08/16/23 00:15 99 16 114/71 99 08/16/23 00:00 98.5 F 94 16 113/53 99 50 08/15/23 23:54 95 08/15/23 23:50 50 08/15/23 23:49 50 08/15/23 23:45 93 16 129/99 100 08/15/23 23:30 99 10 L 124/94 100 08/15/23 23:22 25 H 95 08/15/23 22:53 107 H 16 79/42 98 08/15/23 21:54 93 16 89/57 98 08/15/23 21:40 98 16 95/51 98 08/15/23 21:30 64 16 160/82 97 08/15/23 21:27 50 08/15/23 21:20 89 16 79/49 97 08/15/23 21:10 111 H 16 68/31 98 08/15/23 21:00 105 H 16 65/33 99 08/15/23 20:50 111 H 16 74/37 100 08/15/23 20:40 118 H 17 81/42 99 08/15/23 20:30 115 H 16 71/57 99 08/15/23 20:28 100 08/15/23 20:26 100 08/15/23 20:20 134 H 32 H 122/70 100 08/15/23 20:10 115 H 34 H 92/73 100 08/15/23 20:00 100/61 08/15/23 19:57 100/61 08/15/23 19:55 98.6 F 121 H 36 H 105/37 98 08/15/23 19:45 126 H 20 87/27 97 08/15/23 19:30 122 H 18 98/45 97 08/15/23 19:00 131 H 19 62/34 96 08/15/23 18:30 122 H 27 H 87/52 97 08/15/23 18:15 115 H 26 H 100/56 96 08/15/23 17:58 99.8 F H 138 H 24 81/44 87 L Intake and Output 08/15/23 08/16/23 08/16/23 22:59 06:59 14:59 Intake Total 24.254 1396.111 474.750 Output Total 410 230 Balance 24.254 986.111 244.750 Intake: IV 1160 430 Levofloxacin 750Mg-D5w 150 Pmx 750 mg In Dextrose/ Water 1 150ml.bag @ 100 mls/hr IVPB ONCE STA Rx#: [id number] Magnesium Sulfate-D5w Pmx 200 1 gm In Dextrose/Water 1 100ml.bag @ 100 mls/hr IVPB Q1H [facility] Rx#: [id number] Piperacillin-Tazobactam 3 100 100 .375 gm In Sodium Chloride 0.9% 100 ml @ 200 mls/hr IVPB ONCE STA Rx#:[id number] Sodium Chloride 0.9% 1, 910 130 000 ml @ 130 mls/hr IV . Q7H42M [facility] Rx#:[id number] Intake, IV Titration 24.254 236.111 44.750 Amount Norepinephrine 32 mg In 8.775 22.724 3.178 Sodium Chloride 0.9% 218 ml @ 0.03 MCG/KG/MIN 2. 073 mls/hr IV .Q24H [facility] Rx#:[id number] propofoL 1,000 mg In 15.479 213.387 41.572 Empty Bag 1 bag @ 15 MCG/ KG/MIN 13.268 mls/hr IV . Q7H33M [facility] Rx#:[id number] Output: Gastric Drainage 100 Urine 410 130 Other: Voiding Method Indwelling Catheter Weight 147.418 kg 118.7 kg -GENERAL: The patient is intubated, on mechanical ventilator, and orogastric and orotracheal tube are both in place. Head exam was generally normal. There was no scleral icterus or corneal arcus. Mucous membranes were moist. HEENT: Pupils are round and equally reacting to light. EOMI. No scleral icterus. No conjunctival pallor. Normocephalic, atraumatic. No pharyngeal erythema. No thyromegaly. CARDIOVASCULAR: S1 and S2 present. No murmurs, rubs, or gallops. PULMONARY: Chest is clear to auscultation, no wheezing , no crackles. ABDOMEN: Soft, nontender, nondistended, normoactive bowel sounds. No palpable organomegaly. Austin catheter in place MUSCULOSKELETAL: No joint swelling or deformity. EXTREMITIES: The patient has chronic edema lower extremities bipupils are equal reactive to light. Adequate motor assessment cannot be done. Positive cough and gag. She is sedated on propofol. SKIN: No rashes. no petechiae. The left buttocks is revealing a large wound and the skin being macerated erythematous with some purulence secretions covering the surface and adjacent to the area, there is a deep track which is draining. The right butt cheek has superficial wounds. Results - Laboratory Findings CBC and BMP: 08/16/23 06:23 08/16/23 05:47 ABG ABG pH 7.30 (7.35-7.45) L 08/16/23 06:30 ABG pCO2 43 mmHg (35-45) 08/16/23 06:30 ABG pO2 180 mmHg (83-108) H 08/16/23 06:30 ABG O2 Saturation 100.0 % (94-97) H 08/16/23 06:30 PT/INR, D-dimer PT 11.7 sec (10.0-12.5) 08/15/23 18:29 INR 1.1 (<1.2) 08/15/23 18:29 Abnormal lab findings: Abnormal Labs 08/15/23 08/15/23 08/15/23 18:10 18:12 18:29 WBC RDW 16.0 H Neutrophils # 8.1 H Neutrophils # (Manual) Lymphocytes # 0.3 L Lymphocytes # (Manual) Metamyelocytes # (Man) ABG pH ABG pCO2 ABG pO2 ABG O2 Saturation VBG pH Chloride Carbon Dioxide BUN Glucose POC Glucose (mg/dL) 185 H Plasma Lactic Acid Armando Calcium Magnesium AST ALT Total Protein Urine Appearance Cloudy H Urine Protein 1+ H Urine Blood Trace H Ur Leukocyte Esterase Large H Urine RBC 20 H Urine WBC 48 H Urine Bacteria Occasional H Urine Mucus Rare H 08/15/23 08/15/23 08/15/23 18:29 18:29 18:29 WBC RDW Neutrophils # Neutrophils # (Manual) Lymphocytes # Lymphocytes # (Manual) Metamyelocytes # (Man) ABG pH ABG pCO2 ABG pO2 ABG O2 Saturation VBG pH 7.42 H Chloride Carbon Dioxide BUN 23 H Glucose 171 H POC Glucose (mg/dL) Plasma Lactic Acid Armando 4.5 H* Calcium Magnesium AST ALT Total Protein Urine Appearance Urine Protein Urine Blood Ur Leukocyte Esterase Urine RBC Urine WBC Urine Bacteria Urine Mucus 08/15/23 08/15/23 08/15/23 20:34 21:14 23:22 WBC RDW Neutrophils # Neutrophils # (Manual) Lymphocytes # Lymphocytes # (Manual) Metamyelocytes # (Man) ABG pH ABG pCO2 46 H ABG pO2 283 H ABG O2 Saturation 100.4 H VBG pH Chloride Carbon Dioxide BUN Glucose POC Glucose (mg/dL) 174 H Plasma Lactic Acid Armando 3.1 H* Calcium Magnesium AST ALT Total Protein Urine Appearance Urine Protein Urine Blood Ur Leukocyte Esterase Urine RBC Urine WBC Urine Bacteria Urine Mucus 08/16/23 08/16/23 08/16/23 05:47 06:23 06:30 WBC 24.0 H RDW 16.0 H Neutrophils # Neutrophils # (Manual) 22.50 H Lymphocytes # Lymphocytes # (Manual) 0.48 L Metamyelocytes # (Man) 0.96 H ABG pH 7.30 L ABG pCO2 ABG pO2 180 H ABG O2 Saturation 100.0 H VBG pH Chloride 112 H Carbon Dioxide 16 L BUN 22 H Glucose 246 H POC Glucose (mg/dL) Plasma Lactic Acid Armando Calcium 7.9 L Magnesium 1.5 L AST 53 H ALT 46 H Total Protein 6.0 L Urine Appearance Urine Protein Urine Blood Ur Leukocyte Esterase Urine RBC Urine WBC Urine Bacteria Urine Mucus - Diagnostic Findings Chest x-ray: image reviewed Assessment and Plan Plan: Altered mental status, likely secondary to metabolic encephalopathy, most likely related to underlying sepsis. Patient is currently intubated and mechanically ventilated Acute hypotension requiring fluids and pressors and the patient's blood pressure is normalized and the patient is currently off pressors. The patient has had extensive history of prior infections. She has had MRSA sepsis with positive blood cultures on 06/19/2023. She also has had complication of neurogenic bladder and recurrent urine tract infections with the most recent cultures being positive for Pseudomonas and Enterococcus faecalis on 06/19/2023. She also has stage IV right buttocks wound and previous cultures from 06/19/2023 were positive for Enterococcus faecalis, E. coli and Proteus mirabilis. The patient completed the course of cefdinir and vancomycin on 07/06/2023 during her stay in [facility]. Acute hypoxic respiratory failure secondary to above, currently intubated on mechanical ventilator Advanced multiple sclerosis Stage IV involving the right buttocks with a deep tract, positive drainage Acute leukocytosis Hyperlipidemia Hypothyroidism impaired performance and functional status again above-mentioned comorbidities Plan Will continue vent support, FiO2 will be weaned. No other ventilator changes otherwise. Send blood cultures Send urine cultures Check procalcitonin level Monitor the white cell count Pressors if needed and the patient is currently on normal saline at rate of 130 cc an hour and she has been adequately resuscitated with IV fluids and she has a triple-lumen catheter in place lactic acid level which is down to 1.5 The patient with IV daptomycin and discontinue the Levaquin, and Rocephin. In terms of gram-negative coverage, will put the patient on IV cefepime which she has adequate coverage for pseudomonal infections and a dose of 2 g every 12 hours. Continue updrafts with DuoNeb Continue IV Protonix Sliding scale insulin coverage Lovenox 40 mg subcu for DVT prophylaxis Continue Synthroid at a dose of 75 mcg p.o. daily initiate enteral feeding for nutritional support and the patient will be started on Jevity Continue aspirin continue Lipitor Will continue to follow. Time with Patient: Greater than 30
--- NOTE | 2023-08-16 10:16 | XR ---
EXAMINATION TYPE: XR chest 1V portable DATE OF EXAM: 08/16/2023 9:56 AM CLINICAL INDICATION:Female, 53 years old with history of repeat correct patient, ETT placement; [facility] COMPARISON: Chest radiographs from 08/15/2023 TECHNIQUE: XR chest 1V portable Frontal view of the chest. FINDINGS: Lungs/Pleura: There is no evidence of pleural effusion, focal consolidation, or pneumothorax. Pulmonary vascularity: Unremarkable. Heart/mediastinum: Cardiomediastinal silhouette is unremarkable. Musculoskeletal: No acute osseous pathology. Other findings: None Lines/Tubes: Endotracheal tube with distal tip 2.9 cm above the jose e. Nasogastric tube with its distal tip and side-port projecting under the diaphragm. IMPRESSION: Support tubes in appropriate position.
[2023-08-16] MEDS: DAPTOmycin 500 MG in SODIUM CHLORIDE 0.9% 50 ML IVPB SCH (10:55)
[2023-08-16] MEDS: IPRATROPIUM-ALBUTEROL 3 ML NEB INHALATION SCH (10:56)
[2023-08-16 11:54] LABS: Glucose,Whole Blood 311 mg/dL (70-110)
[2023-08-16] MEDS: INSULIN ASPART (NovoLOG) 100 UNIT/ML VIAL SQ SCH (12:06)
--- NOTE | 2023-08-16 13:46 | P.HPIM ---
History of Present Illness H&P Date: 08/16/23 History of present illness; patient is a 53-year-old lady with past medical history significant for MS who is a [facility] brought to the ER for altered mental status. Most of the history has been limited and obtained from EMR. Patient has been complaining of fever and shortness of breath for the last day. Patient was found to be confused. There was concern of patient having pneumonia and patient was immediately brought to the ER Initial lab work done in the ER showed WBC 8.7, hemoglobin 11.5, platelet count 269, sodium 139, potassium 4.3, BUN 23, creatinine 0.93, glucose 171, plasma 4.5, calcium 9, phosphorus 3.4, magnesium 1.6, bilirubin 0.8, AST 31, ALT 24, al k phos 76, TSH 2.4 EKG done in the ER showed heart rate of , no ST segment elevation or depression seen, no T-wave inversions seen. Chest x-ray done in the ER showed left lower lobe pneumonia, cardiomegaly Patient was intubated and was admitted to ICU under internal medicine REVIEW OF SYSTEMS: Intubated, review of system cannot be obtained PHYSICAL EXAMINATION: GENERAL: The patient is intubated HEENT: Pupils are round and equally reacting to light. EOMI. No scleral icterus. No conjunctival pallor. Normocephalic, atraumatic. No pharyngeal erythema. No thyromegaly. CARDIOVASCULAR: S1 and S2 present. No murmurs, rubs, or gallops. PULMONARY: Chest is clear to auscultation, no wheezing or crackles. ABDOMEN: Soft, nontender, nondistended, normoactive bowel sounds. No palpable organomegaly. MUSCULOSKELETAL: No joint swelling or deformity. EXTREMITIES: No cyanosis, clubbing, or pedal edema. NEUROLOGICAL: Intubated and sedated SKIN: No rashes. Assessment and plan Acute hypoxic respiratory failure Bacterial pneumonia Septic shock Lactic acidosis Chronic anemia Severe MS, not in exacerbation Hypothyroid Dyslipidemia Monitor vital signs Monitor CBC Monitor CMP Continue telemetry monitoring Continue vent management per ICU Continue IV Levophed Start broad-spectrum antibiotic the form of IV cefepime and daptomycin Continue IV fluids Consult pulmonary Consult ID Labs and medication were reviewed.. Continue same treatment. Continue with symptomatic treatment. Resume home medication. Monitor labs and vitals. DVT and GI prophylaxis. Further recommendations as per clinical course of the patient Dictation was produced using [employer] dictation software. please excuse any g rammatical, word or spelling errors. Past Medical History Past Medical History: Hyperlipidemia, Musculoskeletal Disorder, Neurologic Disorder, Pneumonia, Renal Disease, Skin Disorder Additional Past Medical History / Comment(s): Multiple sclerosis stage IV- wheelchair bound, L side weaker than right, past renal failure with hemodialys is-last time was July 2016, neurogenic bladder with indwelling [place], past sepsis, iron deficiency anemia, wounds present on bilateral gluteal folds and sacral area History of Any Multi-Drug Resistant Organisms: ESBL, MRSA, VRE Date of last positivie culture/infection: 06/19/23 MRSA; 06/19/23 ESBL; 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 MDRO Source:: Blood-MRSA; Urine-VRE and ESBL Past Surgical History: No Surgical Hx Reported Additional Past Surgical History / Comment(s): LP, debridement decubitus sacral ulcer, hemodialysis cath since removed, picc lines Past Anesthesia/Blood Transfusion Reactions: No Reported Reaction Additional Past Anesthesia/Blood Transfusion Reaction / Comment(s): NEVER HAD ANY GENERAL ANES Past Psychological History: No Psychological Hx Reported Additional Psychological History / Comment(s): Pt resides at [facility]. She states she is mostly wheelchair bound-sit to stand device to chair. She has an IDC. Pt feeds herself. Smoking Status: Never smoker Past Alcohol Use History: None Reported Additional Past Alcohol Use History / Comment(s): Patient is a lifelong nonsmoker. She denies any alcohol abuse. Past Drug Use History: None Reported - Past Family History Father History Unknown: Yes Additional Family Medical History / Comment(s): PTS DAD LIVED IN [place]- SHE'S NOT SURE WHAT HE FROM. HE HAD HYPOTENSION. Mother Family Medical History: Coronary Artery Disease (CAD), Diabetes Mellitus, Hyperlipidemia, Hypertension Additional Family Medical History / Comment(s): CARDIAC STENTS Medications and Allergies Home Medications Medication Instructions Recorded Confirmed Type Potassium Chloride ER [K-Dur 20] 20 meq PO BID 01/12/19 08/16/23 History Aspirin 81 mg PO DAILY 09/15/19 08/16/23 History Sennosides [Senna] 8.6 mg PO BID 01/31/20 08/16/23 History Atorvastatin [Lipitor] 10 mg PO HS 09/22/21 08/16/23 History Diroximel Fumarate [Vumerity] 462 mg PO BID 09/22/21 08/16/23 History Levothyroxine Sodium [Synthroid] 75 mcg PO HS 09/22/21 08/16/23 History Ascorbic Acid [Vitamin C] 500 mg PO DAILY 05/14/22 08/16/23 History Furosemide [Lasix] 20 mg PO DAILY 05/14/22 08/16/23 History Pro-Stat Liquid (Amino 30 ml PO DAILY 05/14/22 08/16/23 History Acids-Protein Hydrolysate) Baclofen 10 mg PO TID@0700,1300,1900 12/22/22 08/16/23 History Multivitamins, Thera [Multivitamin 1 tab PO DAILY 12/22/22 08/16/23 History (formulary)] Folic Acid 0.4 mg PO BID 06/19/23 08/16/23 History Naloxone HCl 0.4 mg SQ DIRECTED PRN 06/19/23 08/16/23 History Nitroglycerin Sl Tabs [Nitrostat] 0.4 mg SUBLINGUAL Q5M PRN 06/19/23 08/16/23 H istory Acetaminophen [Tylenol 8 Hour] 650 mg PO Q8H PRN 08/16/23 08/16/23 History Carboxymethylcellulose Sodium 1 drop BOTH EYES DAILY 08/16/23 08/16/23 History [Refresh Tears] Cyclobenzaprine [Flexeril] 5 mg PO Q8H PRN 08/16/23 08/16/23 History Famotidine [Pepcid] 10 mg PO DAILY 08/16/23 08/16/23 History Gabapentin [Neurontin] 300 mg PO BID@0700,1900 08/16/23 08/16/23 History HYDROcodone/APAP 7.5-325MG [[place] 1 tab PO QID 08/16/23 08/16/23 History 7.5-325] Menthol [Icy Hot] 1 patch TRANSDERM DAILY 08/16/23 08/16/23 History Allergies Allergy/AdvReac Type Severity Reaction Status Date / Time adhesive tape Allergy Rash/Hives Verified 08/16/23 10:52 cinnamon Allergy Rash/Hives Verified 08/16/23 10:52 Physical Exam Vitals: Vital Signs Temp Pulse Resp BP Pulse Ox FiO2 08/16/23 09:15 97 17 105/59 100 08/16/23 09:00 100 18 105/56 100 08/16/23 08:45 96 17 97/53 100 08/16/23 08:30 99 17 114/70 100 08/16/23 08:22 80 08/16/23 08:15 86 17 116/68 100 08/16/23 08:12 79 08/16/23 08:00 98.2 F 67 16 118/63 100 50 08/16/23 07:48 50 08/16/23 07:45 61 16 118/66 100 08/16/23 07:30 66 17 114/61 100 08/16/23 07:15 62 17 118/66 100 08/16/23 07:00 71 17 126/65 100 08/16/23 06:45 77 16 120/70 100 08/16/23 06:30 80 16 116/80 100 08/16/23 06:15 91 16 130/68 100 08/16/23 06:00 81 16 144/79 100 08/16/23 05:45 85 16 136/70 100 08/16/23 05:30 74 17 131/73 100 08/16/23 05:15 74 17 131/74 100 08/16/23 05:00 75 17 132/75 100 08/16/23 04:45 78 18 130/73 99 08/16/23 04:30 86 17 131/72 99 08/16/23 04:21 85 08/16/23 04:15 86 19 128/76 100 08/16/23 04:03 90 50 08/16/23 04:00 98.2 F 93 16 130/78 100 50 08/16/23 03:45 93 16 128/85 100 08/16/23 03:30 86 16 128/79 99 08/16/23 03:15 81 16 128/80 08/16/23 03:00 82 16 131/75 99 08/16/23 02:45 90 17 135/81 98 08/16/23 02:30 90 16 131/68 08/16/23 02:15 95 16 121/68 99 08/16/23 02:00 96 16 124/71 99 08/16/23 01:45 99 16 114/69 99 08/16/23 01:30 99 16 112/68 99 08/16/23 01:15 100 16 109/63 99 08/16/23 01:00 98 16 113/56 99 08/16/23 00:45 96 16 108/62 99 08/16/23 00:30 98 16 109/68 100 08/16/23 00:19 98 08/16/23 00:15 99 16 114/71 99 08/16/23 00:00 98.5 F 94 16 113/53 99 50 08/15/23 23:54 95 08/15/23 23:50 50 08/15/23 23:49 50 08/15/23 23:45 93 16 129/99 100 08/15/23 23:30 99 10 L 124/94 100 08/15/23 23:22 25 H 95 08/15/23 22:53 107 H 16 79/42 98 08/15/23 21:54 93 16 89/57 98 08/15/23 21:40 98 16 95/51 98 08/15/23 21:30 64 16 160/82 97 08/15/23 21:27 50 08/15/23 21:20 89 16 79/49 97 08/15/23 21:10 111 H 16 68/31 98 08/15/23 21:00 105 H 16 65/33 99 08/15/23 20:50 111 H 16 74/37 100 08/15/23 20:40 118 H 17 81/42 99 08/15/23 20:30 115 H 16 71/57 99 08/15/23 20:28 100 08/15/23 20:26 100 08/15/23 20:20 134 H 32 H 122/70 100 08/15/23 20:10 115 H 34 H 92/73 100 08/15/23 20:00 100/61 05 19:57 100/61 05 19:55 98.6 F 121 H 36 H 105/37 98 08/15/23 19:45 126 H 20 87/27 97 08/15/23 19:30 122 H 18 98/45 97 08/15/23 19:00 131 H 19 62/34 96 08/15/23 18:30 122 H 27 H 87/52 97 08/15/23 18:15 115 H 26 H 100/56 96 08/15/23 17:58 99.8 F H 138 H 24 81/44 87 L Intake and Output 08/15/23 08/16/23 08/16/23 22:59 06:59 14:59 Intake Total 24.254 1396.111 474.750 Output Total 410 230 Balance 24.254 986.111 244.750 Intake: IV 1160 430 Levofloxacin 750Mg-D5w 150 Pmx 750 mg In Dextrose/ Water 1 150ml.bag @ 100 mls/hr IVPB ONCE STA Rx#: [id number] Magnesium Sulfate-D5w Pmx 200 1 gm In Dextrose/Water 1 100ml.bag @ 100 mls/hr IVPB Q1H [facility] Rx#: [id number] Piperacillin-Tazobactam 3 100 100 .375 gm In Sodium Chloride 0.9% 100 ml @ 200 mls/hr IVPB ONCE STA Rx#:[id number] Sodium Chloride 0.9% 1, 910 130 000 ml @ 130 mls/hr IV . Q7H42M [facility] Rx#:[id number] Intake, IV Titration 24.254 236.111 44.750 Amount Norepinephrine 32 mg In 8.775 22.724 3.178 Sodium Chloride 0.9% 218 ml @ 0.03 MCG/KG/MIN 2. 073 mls/hr IV .Q24H ONE Rx#:[id number] propofoL 1,000 mg In 15.479 213.387 41.572 Empty Bag 1 bag @ 15 MCG/ KG/MIN 13.268 mls/hr IV . Q7H33M [facility] Rx#:[id number] Output: Gastric Drainage 100 Urine 410 130 Other: Voiding Method Indwelling Catheter Weight 147.418 kg 118.7 kg Results CBC & Chem 7: 08/16/23 06:23 08/16/23 05:47 Labs: Abnormal Lab Results - Last 24 Hours (Table) 08/15/23 08/15/23 08/15/23 Range/Units 18:10 18:12 18:29 WBC (3.8-10.6) k/uL RDW 16.0 H (11.5-15.5) % Neutrophils # 8.1 H (1.3-7.7) k/uL Neutrophils # (Manual) (1.3-7.7) k/uL Lymphocytes # 0.3 L (1.0-4.8) k/uL Lymphocytes # (Manual) (1.0-4.8) k/uL Metamyelocytes # (Man) (0) k/uL ABG pH (7.35-7.45) ABG pCO2 (35-45) mmHg ABG pO2 (83-108) mmHg ABG O2 Saturation (94-97) % VBG pH (7.31-7.41) Chloride (98-107) mmol/L Carbon Dioxide (22-30) mmol/L BUN (7-17) mg/dL Glucose (74-99) mg/dL POC Glucose (mg/dL) 185 H (70-110) mg/dL Plasma Lactic Acid Arm[place] (0.7-2.0) mmol/L Calcium (8.4-10.2) mg/dL Magnesium (1.6-2.3) mg/dL AST (14-36) U/L ALT (4-34) U/L Total Protein (6.3-8.2) g/dL Urine Appearance Cloudy H (Clear) Urine Protein 1+ H (Negative) Urine Blood Trace H (Negative) Ur Leukocyte Esterase Large H (Negative) Urine RBC 20 H (0-5) /hpf Urine WBC 48 H (0-5) /hpf Urine Bacteria Occasional H (None) /hpf Urine Mucus Rare H (None) /hpf 08/15/23 08/15/23 08/15/23 Range/Units 18:29 18:29 18:29 WBC (3.8-10.6) k/uL RDW (11.5-15.5) % Neutrophils # (1.3-7.7) k/uL Neutrophils # (Manual) (1.3-7.7) k/uL Lymphocytes # (1.0-4.8) k/uL Lymphocytes # (Manual) (1.0-4.8) k/uL Metamyelocytes # (Man) (0) k/uL ABG pH (7.35-7.45) ABG pCO2 (35-45) mmHg ABG pO2 (83-108) mmHg ABG O2 Saturation (94-97) % VBG pH 7.42 H (7.31-7.41) Chloride (98-107) mmol/L Carbon Dioxide (22-30) mmol/L BUN 23 H (7-17) mg/dL Glucose 171 H (74-99) mg/dL POC Glucose (mg/dL) (70-110) mg/dL Plasma Lactic Acid Armando 4.5 H* (0.7-2.0) mmol/L Calcium (8.4-10.2) mg/dL Magnesium (1.6-2.3) mg/dL AST (14-36) U/L ALT (4-34) U/L Total Protein (6.3-8.2) g/dL Urine Appearance (Clear) Urine Protein (Negative) Urine Blood (Negative) Ur Leukocyte Esterase (Negative) Urine RBC (0-5) /hpf Urine WBC (0-5) /hpf Urine Bacteria (None) /hpf Urine Mucus (None) /hpf 08/15/23 08/15/23 08/15/23 Range/Units 20:34 21:14 23:22 WBC (3.8-10.6) k/uL RDW (11.5-15.5) % Neutrophils # (1.3-7.7) k/uL Neutrophils # (Manual) (1.3-7.7) k/uL Lymphocytes # (1.0-4.8) k/uL Lymphocytes # (Manual) (1.0-4.8) k/uL Metamyelocytes # (Man) (0) k/uL ABG pH (7.35-7.45) ABG pCO2 46 H (35-45) mmHg ABG pO2 283 H (83-108) mmHg ABG O2 Saturation 100.4 H (94-97) % VBG pH (7.31-7.41) Chloride (98-107) mmol/L Carbon Dioxide (22-30) mmol/L BUN (7-17) mg/dL Glucose (74-99) mg/dL POC Glucose (mg/dL) 174 H (70-110) mg/dL Plasma Lactic Acid Armando 3.1 H* (0.7-2.0) mmol/L Calcium (8.4-10.2) mg/dL Magnesium (1.6-2.3) mg/dL AST (14-36) U/L ALT (4-34) U/L Total Protein (6.3-8.2) g/dL Urine Appearance (Clear) Urine Protein (Negative) Urine Blood (Negative) Ur Leukocyte Esterase (Negative) Urine RBC (0-5) /hpf Urine WBC (0-5) /hpf Urine Bacteria (None) /hpf Urine Mucus (None) /hpf 08/16/23 08/16/23 08/16/23 Range/Units 05:47 06:23 06:30 WBC 24.0 H (3.8-10.6) k/uL RDW 16.0 H (11.5-15.5) % Neutrophils # (1.3-7.7) k/uL Neutrophils # (Manual) 22.50 H (1.3-7.7) k/uL Lymphocytes # (1.0-4.8) k/uL Lymphocytes # (Manual) 0.48 L (1.0-4.8) k/uL Metamyelocytes # (Man) 0.96 H (0) k/uL ABG pH 7.30 L (7.35-7.45) ABG pCO2 (35-45) mmHg ABG pO2 180 H (83-108) mmHg ABG O2 Saturation 100.0 H (94-97) % VBG pH (7.31-7.41) Chloride 112 H (98-107) mmol/L Carbon Dioxide 16 L (22-30) mmol/L BUN 22 H (7-17) mg/dL Glucose 246 H (74-99) mg/dL POC Glucose (mg/dL) (70-110) mg/dL Plasma Lactic Acid Armando (0.7-2.0) mmol/L Calcium 7.9 L (8.4-10.2) mg/dL Magnesium 1.5 L (1.6-2.3) mg/dL AST 53 H (14-36) U/L ALT 46 H (4-34) U/L Total Protein 6.0 L (6.3-8.2) g/dL Urine Appearance (Clear) Urine Protein (Negative) Urine Blood (Negative) Ur Leukocyte Esterase (Negative) Urine RBC (0-5) /hpf Urine WBC (0-5) /hpf Urine Bacteria (None) /hpf Urine Mucus (None) /hpf Thrombosis Risk Factor Assmnt - Choose All That Apply Each Factor Represents 1 point: Age 41-60 years, Medical pt on bed rest, Obesity (BMI >25) Other Risk Factors: No Other congenital or acquired thrombophilia - If yes, enter type in comment: No Thrombosis Risk Factor Assessment Total Risk Factor Score: 3 Thrombosis Risk Factor Assessment Level: Moderate Risk
[2023-08-16] MEDS ORDERED: VANCOMYCIN 2,250 MG in SODIUM CHLORIDE 0.9% 500 ML 500 ML IVPB SCH (16:00)
[2023-08-16 18:13] LABS: Glucose,Whole Blood 319 mg/dL (70-110)
[2023-08-16] MEDS: CEFEPIME 2 GM in SODIUM CHLORIDE 0.9% 100 ML IVPB SCH (21:27)
[2023-08-16] MEDS ORDERED: LEVOFLOXACIN 750MG-D5W PMX 750 MG in DEXTROSE/WATER 1 150ML.BAG IVPB SCH (22:00)
[2023-08-17 00:55] LABS: Glucose,Whole Blood 191 mg/dL (70-110)
[2023-08-17 05:14] LABS: ABG Base Excess -1.8 mmol/L; ABG HCO3 24 mmol/L (21-25); ABG Oxygen Saturation 98.8 % (94-97); ABG PCO2 42 mmHg (35-45); ABG PH 7.36 (7.35-7.45); ABG PO2 104 mmHg (83-108); Allen Test Performed? Yes
[2023-08-17 06:21] LABS: Anisocytosis Slight; Basophils % (A) 0 %; Eosinophils % (A) 0 %; HCT 31.8 % (34.0-46.0); Hypochromasia Slight; Lymphocytes # (A) 0.3 k/uL (1.0-4.8); Lymphocytes % (A) 3 %; MCH 27.1 pg (25.0-35.0); MCHC 30.8 g/dL (31.0-37.0); Mean Platelet Volume 8.1; Monocytes # (A) 0.5 k/uL (0-1.0); Monocytes % (A) 4 %; Neutrophils # (A) 11.4 k/uL (1.3-7.7); Neutrophils % (A) 92 %; Platelet Count 230 k/uL (150-450); RBC 3.62 m/uL (3.80-5.40); RDW 16.3 % (11.5-15.5); WBC 12.4 k/uL (3.8-10.6)
[2023-08-17 06:23] LABS: Glucose,Whole Blood 165 mg/dL (70-110)
[2023-08-17 06:24] LABS: HGB 9.8 gm/dL (11.4-16.0)
[2023-08-17 06:41] LABS: African American GFR (CKD) >90 (>60 ml/min/1.73 sqM); Anion Gap 9 mmol/L; Blood Urea Nitrogen 22 mg/dL (7-17); Calcium 8.3 mg/dL (8.4-10.2); Carbon Dioxide 20 mmol/L (22-30); Chloride 115 mmol/L (98-107); Glucose 180 mg/dL (74-99); Magnesium 2.3 mg/dL (1.6-2.3); Non-African American GFR(CKD) >90 (>60 ml/min/1.73 sqM); Potassium 3.5 mmol/L (3.5-5.1); Sodium 144 mmol/L (137-145)
[2023-08-17] MEDS ORDERED: Potassium Replacement Protocol 1 EACH MISC MISCELLANE PRN (07:01)
[2023-08-17] MEDS ORDERED: VANCOMYCIN IV PER PHARMACY 1 EACH MISC MISCELLANE PRN (07:07)
--- NOTE | 2023-08-17 07:07 | P.CONS ---
History of Present Illness - Reason for Consult Consult date: 08/16/23 Septic shock Requesting physician: Tato Arango - Chief Complaint Mental status changes x 1 day - History of Present Illness Patient is a 53-year-old female past medical history significant for MS this patient has been bedbound care home resident also with a history of hyperlipidemia pneumonia history of chronic bilateral gluteal and sacral pressure ulcer and episodes of osteomyelitis recent admission to the hospital for left lower extremity cellulitis and did have MRSA bacteremia and also have a history of recurrent UTI patient has been brought into the hospital from care home concerning for mental status changes shortness of breath and diaphoresis, p atient did have a worsening of her clinical condition while in the ER ended up getting intubated and has been admitted to the ICU, apparently patient arrival to the ER was febrile with a temperature of 102 degrees following right hypotensive requiring multiple fluid boluses subsequently went into respiratory distress and adequately intubated, patient is currently on 40% FiO2 no significant purulent secretions through the ET or any changes reported by nurse. Most information has been obtained from the chart talking nursing staff patient did have white count 24,000 with a left shift creatinine 0.83 no enzymes mildly elevated urine has been positive chest x-ray with right perihilar left midlung airspace opacities concerning for pneumonia patient has been started on cefepime and daptomycin Review of Systems ROS unobtainable: due to endotracheal tube Past Medical History Past Medical History: Hyperlipidemia, Musculoskeletal Disorder, Neurologic Disorder, Pneumonia, Renal Disease, Skin Disorder Additional Past Medical History / Comment(s): Multiple sclerosis stage IV- wheelchair bound, L side weaker than right, past renal failure with hemodialysis-last time was July 2016, neurogenic bladder with indwelling [place]in, past sepsis, iron deficiency anemia, wounds present on bilateral gluteal folds and sacral area History of Any Multi-Drug Resistant Organisms: ESBL, MRSA, VRE Year Discovered:: 06/19/23 MRSA; 06/19/23 ESBL; 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 MDRO Source:: Blood-MRSA; Urine-VRE and ESBL Past Surgical History: No Surgical Hx Reported Additional Past Surgical History / Comment(s): LP, debridement decubitus sacral ulcer, hemodialysis cath since removed, picc lines Past Anesthesia/Blood Transfusion Reactions: No Reported Reaction Additional Past Anesthesia/Blood Transfusion Reaction / Comm: NEVER HAD ANY GENERAL ANES Past Psychological History: No Psychological Hx Reported Additional Psychological History / Comment(s): Pt resides at [facility]. She states she is mostly wheelchair bound-sit to stand device to chair. She has an IDC. Pt feeds herself. Smoking Status: Never smoker Past Alcohol Use History: None Reported Additional Past Alcohol Use History / Comment(s): Patient is a lifelong nonsmoker. She denies any alcohol abuse. Past Drug Use History: None Reported - Past Family History Father History Unknown: Yes Additional Family Medical History / Comment(s): PTS DAD LIVED IN [place]- SHE'S NOT SURE WHAT HE FROM. HE HAD HYPOTENSION. Mother Family Medical History: Coronary Artery Disease (CAD), Diabetes Mellitus, Hyperlipidemia, Hypertension Additional Family Medical History / Comment(s): CARDIAC STENTS Medications and Allergies Home Medications Medication Instructions Recorded Confirmed Type Potassium Chloride ER [K-Dur 20] 20 meq PO BID 01/12/19 08/16/23 History Aspirin 81 mg PO DAILY 09/15/19 08/16/23 History Sennosides [Senna] 8.6 mg PO BID 01/31/20 08/16/23 History Atorvastatin [Lipitor] 10 mg PO HS 09/22/21 08/16/23 History Diroximel Fumarate [Vumerity] 462 mg PO BID 09/22/21 08/16/23 History Levothyroxine Sodium [Synthroid] 75 mcg PO HS 09/22/21 08/16/23 History Ascorbic Acid [Vitamin C] 500 mg PO DAILY 05/14/22 08/16/23 History Furosemide [Lasix] 20 mg PO DAILY 05/14/22 08/16/23 History Pro-Stat Liquid (Amino 30 ml PO DAILY 05/14/22 08/16/23 History Acids-Protein Hydrolysate) Baclofen 10 mg PO TID@0700,1300,1900 12/22/22 08/16/23 History Multivitamins, Thera [Multivitamin 1 tab PO DAILY 12/22/22 08/16/23 History (formulary)] Folic Acid 0.4 mg PO BID 06/19/23 08/16/23 History Naloxone HCl 0.4 mg SQ DIRECTED PRN 06/19/23 08/16/23 History Nitroglycerin Sl Tabs [Nitrostat] 0.4 mg SUBLINGUAL Q5M PRN 06/19/23 08/16/23 History Acetaminophen [Tylenol 8 Hour] 650 mg PO Q8H PRN 08/16/23 08/16/23 History Carboxymethylcellulose Sodium 1 drop BOTH EYES DAILY 08/16/23 08/16/23 History [Refresh Tears] Cyclobenzaprine [Flexeril] 5 mg PO Q8H PRN 08/16/23 08/16/23 History Famotidine [Pepcid] 10 mg PO DAILY 08/16/23 08/16/23 History Menthol [Icy Hot] 1 patch TRANSDERM DAILY 08/16/23 08/16/23 History Gabapentin [Neurontin] 300 mg PO BID@0700,1900 3 Days #6 08/24/23 Rx cap HYDROcodone/APAP 7.5-325MG [Cascade 1 tab PO QID PRN 3 Days #12 tab 08/24/23 Rx 7.5-325] cefUROXime axetiL [Ceftin] 500 mg PO BID 10 Days #20 tab 08/24/23 Rx Allergies Allergy/AdvReac Type Severity Reaction Status Date / Time adhesive tape Allergy Rash/Hives Verified 08/16/23 10:52 cinnamon Allergy Rash/Hives Verified 08/16/23 10:52 Physical Exam Vitals: Vital Signs Temp Pulse Resp BP Pulse Ox FiO2 08/16/23 13:00 86 17 118/71 100 08/16/23 12:30 93 17 103/59 100 08/16/23 12:00 97.9 F 90 20 105/53 100 40 08/16/23 11:30 95 16 109/54 100 08/16/23 11:06 100 08/16/23 11:00 99 16 112/58 100 40 08/16/23 10:58 40 08/16/23 10:56 99 08/16/23 10:30 104 H 15 111/54 100 08/16/23 10:15 110 H 16 111/54 100 08/16/23 10:00 112 H 17 116/56 100 08/16/23 09:45 99 11 L 106/52 100 08/16/23 09:30 97 17 109/57 100 08/16/23 09:15 97 17 105/59 100 08/16/23 09:00 100 18 105/56 100 08/16/23 08:45 96 17 97/53 100 08/16/23 08:30 99 17 114/70 100 05 08:22 80 05 08:15 86 17 116/68 100 05 08:12 79 05 08:00 98.2 F 67 16 118/63 100 50 05 07:48 50 08/16/23 07:45 61 16 118/66 100 08/16/23 07:30 66 17 114/61 100 05 07:15 62 17 118/66 100 05 07:00 71 17 126/65 100 08/16/23 06:45 77 16 120/70 100 08/16/23 06:30 80 16 116/80 100 05 06:15 91 16 130/68 100 08/16/23 06:00 81 16 144/79 100 08/16/23 05:45 85 16 136/70 100 08/16/23 05:30 74 17 131/73 100 08/16/23 05:15 74 17 131/74 100 08/16/23 05:00 75 17 132/75 100 08/16/23 04:45 78 18 130/73 99 05 04:30 86 17 131/72 99 08/16/23 04:21 85 05 04:15 86 19 128/76 100 08/16/23 04:03 90 50 05 04:00 98.2 F 93 16 130/78 100 50 05 03:45 93 16 128/85 100 08/16/23 03:30 86 16 128/79 99 05 03:15 81 16 128/80 05 03:00 82 16 131/75 99 05 02:45 90 17 135/81 98 05 02:30 90 16 131/68 05 02:15 95 16 121/68 99 05 02:00 96 16 124/71 99 05 01:45 99 16 114/69 99 05 01:30 99 16 112/68 99 05 01:15 100 16 109/63 99 05 01:00 98 16 113/56 99 05 00:45 96 16 108/62 99 05 00:30 98 16 109/68 100 08/16/23 00:19 98 08/16/23 00:15 99 16 114/71 99 08/16/23 00:00 98.5 F 94 16 113/53 99 50 08/15/23 23:54 95 08/15/23 23:50 50 08/15/23 23:49 50 08/15/23 23:45 93 16 129/99 100 08/15/23 23:30 99 10 L 124/94 100 08/15/23 23:22 25 H 95 08/15/23 22:53 107 H 16 79/42 98 08/15/23 21:54 93 16 89/57 98 08/15/23 21:40 98 16 95/51 98 08/15/23 21:30 64 16 160/82 97 08/15/23 21:27 50 08/15/23 21:20 89 16 79/49 97 08/15/23 21:10 111 H 16 68/31 98 08/15/23 21:00 105 H 16 65/33 99 08/15/23 20:50 111 H 16 74/37 100 08/15/23 20:40 118 H 17 81/42 99 08/15/23 20:30 115 H 16 71/57 99 08/15/23 20:28 100 08/15/23 20:26 100 08/15/23 20:20 134 H 32 H 122/70 100 08/15/23 20:10 115 H 34 H 92/73 100 08/15/23 20:00 100/61 08/15/23 19:57 100/61 08/15/23 19:55 98.6 F 121 H 36 H 105/37 98 08/15/23 19:45 126 H 20 87/27 97 08/15/23 19:30 122 H 18 98/45 97 08/15/23 19:00 131 H 19 62/34 96 08/15/23 18:30 122 H 27 H 87/52 97 08/15/23 18:15 115 H 26 H 100/56 96 08/15/23 17:58 99.8 F H 138 H 24 81/44 87 L Intake and Output 08/15/23 08/16/23 08/16/23 22:59 06:59 14:59 Intake Total 24.254 6459.144 8251.956 Output Total 410 595 Balance 24.254 986.111 647.956 Intake: IV 1160 1000 DAPTOmycin 500 mg In 50 Sodium Chloride 0.9% 50 ml @ 100 mls/hr IVPB Q24H [facility] Rx#:[id number] Levofloxacin 750Mg-D5w 150 Pmx 750 mg In Dextrose/ Water 1 150ml.bag @ 100 mls/hr IVPB ONCE STA Rx#: [id number] Magnesium Sulfate-D5w Pmx 200 1 gm In Dextrose/Water 1 100ml.bag @ 100 mls/hr IVPB Q1H [facility] Rx#: [id number] Piperacillin-Tazobactam 3 100 100 .375 gm In Sodium Chloride 0.9% 100 ml @ 200 mls/hr IVPB ONCE STA Rx#:[id number] Sodium Chloride 0.9% 1, 910 650 000 ml @ 130 mls/hr IV . Q7H42M [facility] Rx#:[id number] Intake, IV Titration 24.254 236.111 192.956 Amount Norepinephrine 32 mg In 8.775 22.724 3.178 Sodium Chloride 0.9% 218 ml @ 0.03 MCG/KG/MIN 2. 073 mls/hr IV .Q24H [facility] Rx#:[id number] propofoL 1,000 mg In 15.479 213.387 189.778 Empty Bag 1 bag @ 15 MCG/ KG/MIN 13.268 mls/hr IV . Q7H33M [facility] Rx#:[id number] Tube Feeding 20 Other 30 Output: Gastric Drainage 200 Urine 410 395 Other: Voiding Method Indwelling Catheter Weight 147.418 kg 118.7 kg GENERAL DESCRIPTION: Middle-aged female intubated on the vent HEENT: Shows Pallor , no scleral icterus. Oral mucous membrane is dry. NECK: Trachea central, no thyromegaly. LUNGS: Unlabored breathing. Decreased breath sounds at the base HEART: S1, S2, regular rate and rhythm. No loud murmur ABDOMEN: Soft, no tenderness , guarding or rigidity, no organomegaly EXTREMITIES: Diffuse swelling to bilateral lower extremity with minimal erythema no open wound or any drainage SKIN: No rash, no masses palpable. NEUROLOGICAL: The patient is sedated on the vent Results CBC & Chem 7: 08/23/23 06:31 06/03/24 06:31 Labs: Abnormal Lab Results - Last 24 Hours (Table) 08/15/23 08/15/23 08/15/23 Range/Units 18:10 18:12 18:29 WBC (3.8-10.6) k/uL RDW 16.0 H (11.5-15.5) % Neutrophils # 8.1 H (1.3-7.7) k/uL Neutrophils # (Manual) (1.3-7.7) k/uL Lymphocytes # 0.3 L (1.0-4.8) k/uL Lymphocytes # (Manual) (1.0-4.8) k/uL Metamyelocytes # (Man) (0) k/uL ABG pH (7.35-7.45) ABG pCO2 (35-45) mmHg ABG pO2 (83-108) mmHg ABG O2 Saturation (94-97) % VBG pH (7.31-7.41) Chloride (98-107) mmol/L Carbon Dioxide (22-30) mmol/L BUN (7-17) mg/dL Glucose (74-99) mg/dL POC Glucose (mg/dL) 185 H (70-110) mg/dL Plasma Lactic Acid Armando (0.7-2.0) mmol/L Calcium (8.4-10.2) mg/dL Magnesium (1.6-2.3) mg/dL AST (14-36) U/L ALT (4-34) U/L Total Protein (6.3-8.2) g/dL Urine Appearance Cloudy H (Clear) Urine Protein 1+ H (Negative) Urine Blood Trace H (Negative) Ur Leukocyte Esterase Large H (Negative) Urine RBC 20 H (0-5) /hpf Urine WBC 48 H (0-5) /hpf Urine Bacteria Occasional H (None) /hpf Urine Mucus Rare H (None) /hpf 08/15/23 08/15/23 08/15/23 Range/Units 18:29 18:29 18:29 WBC (3.8-10.6) k/uL RDW (11.5-15.5) % Neutrophils # (1.3-7.7) k/uL Neutrophils # (Manual) (1.3-7.7) k/uL Lymphocytes # (1.0-4.8) k/uL Lymphocytes # (Manual) (1.0-4.8) k/uL Metamyelocytes # (Man) (0) k/uL ABG pH (7.35-7.45) ABG pCO2 (35-45) mmHg ABG pO2 (83-108) mmHg ABG O2 Saturation (94-97) % VBG pH 7.42 H (7.31-7.41) Chloride (98-107) mmol/L Carbon Dioxide (22-30) mmol/L BUN 23 H (7-17) mg/dL Glucose 171 H (74-99) mg/dL POC Glucose (mg/dL) (70-110) mg/dL Plasma Lactic Acid Armando 4.5 H* (0.7-2.0) mmol/L Calcium (8.4-10.2) mg/dL Magnesium (1.6-2.3) mg/dL AST (14-36) U/L ALT (4-34) U/L Total Protein (6.3-8.2) g/dL Urine Appearance (Clear) Urine Protein (Negative) Urine Blood (Negative) Ur Leukocyte Esterase (Negative) Urine RBC (0-5) /hpf Urine WBC (0-5) /hpf Urine Bacteria (None) /hpf Urine Mucus (None) /hpf 08/15/23 08/15/23 08/15/23 Range/Units 20:34 21:14 23:22 WBC (3.8-10.6) k/uL RDW (11.5-15.5) % Neutrophils # (1.3-7.7) k/uL Neutrophils # (Manual) (1.3-7.7) k/uL Lymphocytes # (1.0-4.8) k/uL Lymphocytes # (Manual) (1.0-4.8) k/uL Metamyelocytes # (Man) (0) k/uL ABG pH (7.35-7.45) ABG pCO2 46 H (35-45) mmHg ABG pO2 283 H (83-108) mmHg ABG O2 Saturation 100.4 H (94-97) % VBG pH (7.31-7.41) Chloride (98-107) mmol/L Carbon Dioxide (22-30) mmol/L BUN (7-17) mg/dL Glucose (74-99) mg/dL POC Glucose (mg/dL) 174 H (70-110) mg/dL Plasma Lactic Acid Armando 3.1 H* (0.7-2.0) mmol/L Calcium (8.4-10.2) mg/dL Magnesium (1.6-2.3) mg/dL AST (14-36) U/L ALT (4-34) U/L Total Protein (6.3-8.2) g/dL Urine Appearance (Clear) Urine Protein (Negative) Urine Blood (Negative) Ur Leukocyte Esterase (Negative) Urine RBC (0-5) /hpf Urine WBC (0-5) /hpf Urine Bacteria (None) /hpf Urine Mucus (None) /hpf 08/16/23 08/16/23 08/16/23 Range/Units 05:47 06:23 06:30 WBC 24.0 H (3.8-10.6) k/uL RDW 16.0 H (11.5-15.5) % Neutrophils # (1.3-7.7) k/uL Neutrophils # (Manual) 22.50 H (1.3-7.7) k/uL Lymphocytes # (1.0-4.8) k/uL Lymphocytes # (Manual) 0.48 L (1.0-4.8) k/uL Metamyelocytes # (Man) 0.96 H (0) k/uL ABG pH 7.30 L (7.35-7.45) ABG pCO2 (35-45) mmHg ABG pO2 180 H (83-108) mmHg ABG O2 Saturation 100.0 H (94-97) % VBG pH (7.31-7.41) Chloride 112 H (98-107) mmol/L Carbon Dioxide 16 L (22-30) mmol/L BUN 22 H (7-17) mg/dL Glucose 246 H (74-99) mg/dL POC Glucose (mg/dL) (70-110) mg/dL Plasma Lactic Acid Armando (0.7-2.0) mmol/L Calcium 7.9 L (8.4-10.2) mg/dL Magnesium 1.5 L (1.6-2.3) mg/dL AST 53 H (14-36) U/L ALT 46 H (4-34) U/L Total Protein 6.0 L (6.3-8.2) g/dL Urine Appearance (Clear) Urine Protein (Negative) Urine Blood (Negative) Ur Leukocyte Esterase (Negative) Urine RBC (0-5) /hpf Urine WBC (0-5) /hpf Urine Bacteria (None) /hpf Urine Mucus (None) /hpf 08/16/23 Range/Units 11:53 WBC (3.8-10.6) k/uL RDW (11.5-15.5) % Neutrophils # (1.3-7.7) k/uL Neutrophils # (Manual) (1.3-7.7) k/uL Lymphocytes # (1.0-4.8) k/uL Lymphocytes # (Manual) (1.0-4.8) k/uL Metamyelocytes # (Man) (0) k/uL ABG pH (7.35-7.45) ABG pCO2 (35-45) mmHg ABG pO2 (83-108) mmHg ABG O2 Saturation (94-97) % VBG pH (7.31-7.41) Chloride (98-107) mmol/L Carbon Dioxide (22-30) mmol/L BUN (7-17) mg/dL Glucose (74-99) mg/dL POC Glucose (mg/dL) 311 H (70-110) mg/dL Plasma Lactic Acid Armando (0.7-2.0) mmol/L Calcium (8.4-10.2) mg/dL Magnesium (1.6-2.3) mg/dL AST (14-36) U/L ALT (4-34) U/L Total Protein (6.3-8.2) g/dL Urine Appearance (Clear) Urine Protein (Negative) Urine Blood (Negative) Ur Leukocyte Esterase (Negative) Urine RBC (0-5) /hpf Urine WBC (0-5) /hpf Urine Bacteria (None) /hpf Urine Mucus (None) /hpf Assessment and Plan (1) Sepsis Status: Acute Code(s): A41.9 - SEPSIS, UNSPECIFIED ORGANISM SNOMED Code(s): 86783759 (2) Bilateral lower leg cellulitis Status: Acute Code(s): L03.116 - CELLULITIS OF LEFT LOWER LIMB SNOMED Code(s): 965389564 (3) Urinary tract infection Status: Acute Code(s): N39.0 - URINARY TRACT INFECTION, SITE NOT SPECIFIED SNOMED Code(s): 26284739 Plan: 1patient presented to hospital with sepsis in this patient who did have a fever tachycardia elevated white count source likely UTI and question of possible pneumonia as the patient did have respiratory failure requiring intubation and evidence of right-sided infiltrate on chest x-ray we will need to cover for resistant gram-positive as well as gram-negative pathogen 2-patient also have a bilateral gluteal pressure ulcer but no significant cellulitis clinically doubt source of this abscess 3-patient to continue with the cefepime however we will switch daptomycin to vancomycin for better pulmonary penetration while waiting for the culture to finalize 4-local wound care to the pressure ulcer with Aquacel silver dressing change every 48 hours We will follow on clinical condition and cultures to further adjust medication if needed Thank you for this consultation we will follow the patient along with you Dictation was produced using [employer] dictation software. please excuse any grammatical, word or spelling errors. Time with Patient: Greater than 30
--- NOTE | 2023-08-17 07:49 | XR ---
EXAMINATION TYPE: XR chest 1V portable DATE OF EXAM: 08/17/2023 COMPARISON: 08/16/2023 HISTORY: ET tube placement TECHNIQUE: Single frontal view of the chest is obtained. FINDINGS: ET and NG tubes are noted in position. There is a interstitial pattern with subsegmental b asilar consolidation. Heart size stable. Osseous structures unchanged. IMPRESSION: Persistent interstitial pattern may represent venous congestion or interstitial pneumoni tis.
[2023-08-17] MEDS: CEFEPIME 2 GM in SODIUM CHLORIDE 0.9% 100 ML IVPB SCH (08:44)
[2023-08-17] MEDS: POTASSIUM BICARBONATE/CIT AC 20 MEQ TABLET.EFF NG-TUBE SCH (08:44)
[2023-08-17] MEDS: SODIUM CHLORIDE 0.9% 1,000 ML IV ONE (09:02)
[2023-08-17] MEDS: VANCOMYCIN 2,000 MG in SODIUM CHLORIDE 0.9% 500 ML 500 ML IVPB SCH (10:41)
[2023-08-17 12:08] LABS: Glucose,Whole Blood 182 mg/dL (70-110)
--- NOTE | 2023-08-17 13:12 | P.PN ---
Subjective Progress Note Date: 08/17/23 Principal diagnosis: Acute septic shock with acute hypoxic respiratory failure requiring intubation mechanical ventilation This is a 54-year-old female patient, currently intubated on mechanical ventilator. [facility] because of altered mental status and sepsis. The patient was found laying in bed, lethargic, extremely weak. She had a temperature of 102.3. Blood sugar was 190. She was given a bolus of 500 cc. In the ED, the patient was given additional IV fluids a total of 3 L. Events progressed since then. Details are not available and ultimately the patient was intubated and placed on the mechanical ventilator. Based on my review of the records, the patient has received a total of 4 L of IV fluids and she was started also on antibiotics and the patient is currently on a combination of Rocephin, Levaquin and vancomycin. Based on my review of the records, the [facility] is a [facility] she has advanced multiple sclerosis with stage IV buttocks wounds and previous cultures from those wounds from 06/19/2023 yielded a combination of E. coli, Proteus and Enterococcus faecalis. She also has had previous urine tract infection with Pseudomonas aeruginosa and Enterococcus faecalis. The patient also had staph septicemia with MRSA based on positive blood cultures from 06/19/2023. Repeat blood cultures from 06/21/2023 was negative. She was at a [facility] and she was eating a combination of cefepime and vancomycin and she completed antibiotic course on 08/24/2015 07/06/2023. At this point in time, the patient is intubated on mechanical ventilator, she is sedated with propofol which is running at 3035 mcg/kg/min IV fluids are in the form of normal saline at rate of 130 cc an hour. The patient is off pressors. Note that she required pressors overnight and the norepinephrine was running as high as 0.08 mcg/kg/min. The patient is currently on the mechanical ventilator assist-control mode, she is at the rate of 16, tidal volume of 450, FiO2 of 50% with a PEEP of 5. The chest x-ray is showing some limited bibasilar pulmonary infiltrates. Otherwise no clear airspace disease or consolidation. Blood gas from this morning shows a pH of 7.3 with a pCO2 of 43 and pO2 of 180. The white cell count is at 24, hemoglobin 12.1 and platelet count is 253. Sodium is at 142, potassium is at 4.7, BUN is 23 with a creatinine of 0.8. LFTs are essentially within normal limits. UA showed 48 WBCs and 20 RBCs. Patient was eval today on 08/17/2023, patient remains in the ICU, intubated and mechanically ventilated. Patient is on assist-control rate of 16 tidal volume 450 FiO2 30% and PEEP of 5 ABG showed a pO2 of 104 pCO2 42 pH of 7.36, hence no ventilator setting changes were made. Patient is still receiving vancomycin and cefepime empirically for her presentation of sepsis and septic shock. This is being addressed by infectious disease on the case. Patient remains on propofol at 45 mcg/kg/min and she is on IV fluid 0.9 normal saline at 130 cc/h receiving nutritional support/enteral feeding vital AF at 10 cc/h. Patient has underlying MS, and she has underlying chronic decubitus ulcers being addressed by infectious disease on the case. Chest x-ray showed minimal prominence of the interstitium/possible interstitial pneumonitis. WBC count is 12.4 hemoglobin 9.8 basic metabolic profile is normal bicarb is 20 BUN is 22, creatinine 0.69 sputum cultures and blood cultures are pending so far nondiagnostic patient is sedated, and I have recommended sedation holiday today, and interruption of sedation with assessment of mental status sometime this morning. Objective - Vital Signs Vital signs: Vital Signs Temp 99.0 F 08/17/23 12:00 Pulse 96 08/17/23 12:30 Resp 20 08/17/23 12:30 BP 105/67 08/17/23 12:30 Pulse Ox 98 08/17/23 12:30 FiO2 30 08/17/23 12:00 Intake & Output 08/16/23 08/17/23 08/17/23 18:59 06:59 18:59 Intake Total 2202.956 6158.947 0066.641 Output Total 940 535 245 Balance 6772.575 6280.271 2042.641 Weight 122.2 kg 122.2 kg Intake: IV 1780 1430 780 DAPTOmycin 500 mg In 50 Sodium Chloride 0.9% 50 ml @ 100 mls/hr IVPB Q24H [facility] Rx#:[id number] Magnesium Sulfate-D5w Pmx 200 1 gm In Dextrose/Water 1 100ml.bag @ 100 mls/hr IVPB Q1H [facility] Rx#: [id number] Piperacillin-Tazobactam 3 100 .375 gm In Sodium Chloride 0.9% 100 ml @ 200 mls/hr IVPB [facility] Rx#:[id number] Sodium Chloride 0.9% 1, 1430 1430 780 000 ml @ 130 mls/hr IV . Q7H42M [facility] Rx#:[id number] Intake, IV Titration 292.956 916.908 1971.641 Amount Cefepime 2 gm In Sodium 100 Chloride 0.9% 100 ml @ 25 mls/hr IVPB Q8HR [facility] Rx# :[id number] Norepinephrine 32 mg In 3.178 Sodium Chloride 0.9% 218 ml @ 0.03 MCG/KG/MIN 2. 073 mls/hr IV .Q24H [facility] Rx#:[id number] Sodium Chloride 0.9% 1, 1000 000 ml @ 999 mls/hr IV . Q1H1M [facility] Rx#:[id number] propofoL 1,000 mg In 289.778 464.271 197.641 Empty Bag 1 bag @ 15 MCG/ KG/MIN 13.268 mls/hr IV . Q7H33M [facility] Rx#:[id number] Tube Feeding 70 60 Other 60 150 Output: Gastric Drainage 200 Urine 740 535 245 Other: Voiding Method Indwelling Catheter Indwelling Catheter Indwelling Catheter - Exam -GENERAL: Reveals a 53-year-old female intubated and mechanically ventilated. Head: Atraumatic, normocephalic. Tracheal tube and orogastric tube are intact HEENT: Pupils are round and equally reacting to light. EOMI. No scleral icterus. No conjunctival pallor. Normocephalic, atraumatic. No pharyngeal erythema. No thyromegaly. CARDIOVASCULAR: Distant S1-S2, no S3 gallop, no murmur PULMONARY: Clear throughout no crackles rhonchi or wheezes ABDOMEN: Obese soft nontender no megaly no rebound MUSCULOSKELETAL: No joint swelling or deformity. EXTREMITIES: The patient has chronic edema lower extremitie. Neurologic: Could not assess, patient is sedated with propofol. Psychiatric: Could not assess SKIN: No rashes. no petechiae. The left buttocks is revealing a large wound and the skin being macerated erythematous with some purulence secretions covering the surface and adjacent to the area, there is a deep track which is draining. The right butt cheek has superficial wounds. - Labs CBC & Chem 7: 08/17/23 05:53 08/17/23 05:53 Labs: Abnormal Lab Results - Last 24 Hours (Table) 08/15/23 08/16/23 08/17/23 Range/Units 18:29 18:12 00:53 WBC (3.8-10.6) k/uL RBC (3.80-5.40) m/uL Hgb (11.4-16.0) gm/dL Hct (34.0-46.0) % MCHC (31.0-37.0) g/dL RDW (11.5-15.5) % Neutrophils # (1.3-7.7) k/uL Lymphocytes # (1.0-4.8) k/uL ABG O2 Saturation (94-97) % Chloride (98-107) mmol/L Carbon Dioxide (22-30) mmol/L BUN (7-17) mg/dL Glucose (74-99) mg/dL POC Glucose (mg/dL) 319 H 191 H (70-110) mg/dL Calcium (8.4-10.2) mg/dL Procalcitonin 62.60 H (0.02-0.09) ng/mL 08/17/23 08/17/23 08/17/23 Range/Units 05:19 05:53 05:53 WBC 12.4 H (3.8-10.6) k/uL RBC 3.62 L (3.80-5.40) m/uL Hgb 9.8 L D (11.4-16.0) gm/dL Hct 31.8 L (34.0-46.0) % MCHC 30.8 L (31.0-37.0) g/dL RDW 16.3 H (11.5-15.5) % Neutrophils # 11.4 H (1.3-7.7) k/uL Lymphocytes # 0.3 L (1.0-4.8) k/uL ABG O2 Saturation 98.8 H (94-97) % Chloride 115 H (98-107) mmol/L Carbon Dioxide 20 L (22-30) mmol/L BUN 22 H (7-17) mg/dL Glucose 180 H (74-99) mg/dL POC Glucose (mg/dL) (70-110) mg/dL Calcium 8.3 L (8.4-10.2) mg/dL Procalcitonin (0.02-0.09) ng/mL 08/17/23 08/17/23 Range/Units 06:21 12:06 WBC (3.8-10.6) k/uL RBC (3.80-5.40) m/uL Hgb (11.4-16.0) gm/dL Hct (34.0-46.0) % MCHC (31.0-37.0) g/dL RDW (11.5-15.5) % Neutrophils # (1.3-7.7) k/uL Lymphocytes # (1.0-4.8) k/uL ABG O2 Saturation (94-97) % Chloride (98-107) mmol/L Carbon Dioxide (22-30) mmol/L BUN (7-17) mg/dL Glucose (74-99) mg/dL POC Glucose (mg/dL) 165 H 182 H (70-110) mg/dL Calcium (8.4-10.2) mg/dL Procalcitonin (0.02-0.09) ng/mL Microbiology - Last 24 Hours (Table) 08/15/23 20:34 Gram Stain - Preliminary Sputum Sputum Culture - Preliminary 08/15/23 18:25 Blood Culture - Preliminary Blood 08/15/23 18:10 Blood Culture - Preliminary Blood Assessment and Plan Assessment: Impression: Sepsis and septic shock is strongly suspected, exact source is unclear but most likely from sacral decubitus ulcers Acute hypoxic respiratory failure requiring intubation mechanical ventilation Advanced multiple sclerosis Hypotension secondary to sepsis and septic shock requiring pressors initially patient had previous history of positive Pseudomonas and Enterococcus faecalis infection/type History of neurogenic bladder History of stage IV right buttocks ulcers and positive drainage Acute leukocytosis secondary to above History of hypothyroidism History of dyslipidemia. Recommendation: Continue ventilatory support Wean/interrupt sedation and assess mental status today. Check full cultures including wounds cultures, urine cultures, blood cultures and sputum cultures and adjust antibiotics accordingly Continue cefepime and vancomycin for now Continue GI and DVT prophylaxis Continue IV Protonix and Lovenox Continue sliding scale coverage for elevated blood sugar Resume Synthroid at 75 mcg daily Continue sliding scale insulin coverage Resume home meds including Lipitor and aspirin Continue nutritional support/enteral feeding Will continue to follow. Patient is critically ill, critical care time is over 30 minutes Time with Patient: Greater than 30
--- NOTE | 2023-08-17 13:34 | P.PN ---
Subjective Progress Note Date: 08/17/23 patient is a 53-year-old lady with past medical history significant for MS who is a resident of a [facility] facility brought to the ER for altered mental status. Most of the history has been limited and obtained from EMR. Patient has been complaining of fever and shortness of breath for the last day. Patient was found to be confused. There was concern of patient having pneumonia and patient was immediately brought to the ER Initial lab work done in the ER showed WBC 8.7, hemoglobin 11.5, platelet count 269, sodium 139, potassium 4.3, BUN 23, creatinine 0.93, glucose 171, plasma 4.5, calcium 9, phosphorus 3.4, magnesium 1.6, bilirubin 0.8, AST 31, ALT 24, alk phos 76, TSH 2.4 EKG done in the ER showed heart rate of , no ST segment elevation or depression seen, no T-wave inversions seen. Chest x-ray done in the ER showed left lower lobe pneumonia, cardiomegaly Patient was intubated and was admitted to ICU under internal medicine 08/16. Patient seen and examined. Currently in the ICU. Currently on tube feeding and on propofol. Patient off the pressors. Critical care planning sedation holiday today REVIEW OF SYSTEMS: Currently intubated and sedated PHYSICAL EXAMINATION: GENERAL: The patient is intubated HEENT: Pupils are round and equally reacting to light. EOMI. No scleral icterus. No conjunctival pallor. Normocephalic, atraumatic. No pharyngeal erythema. No thyromegaly. CARDIOVASCULAR: S1 and S2 present. No murmurs, rubs, or gallops. PULMONARY: Chest is clear to auscultation, no wheezing or crackles. ABDOMEN: Soft, nontender, nondistended, normoactive bowel sounds. No palpable organomegaly. MUSCULOSKELETAL: No joint swelling or deformity. EXTREMITIES: No cyanosis, clubbing, or pedal edema. NEUROLOGICAL: Intubated and sedated SKIN: No rashes. Assessment and plan Acute hypoxic respiratory failure Bacterial pneumonia Septic shock Lactic acidosis Chronic anemia Severe MS, not in exacerbation Hypothyroid Dyslipidemia Monitor vital signs Monitor CBC Monitor CMP Continue telemetry monitoring Continue vent management per ICU Follow-up on blood cultures Follow-up on urine culture Continue aggressive bronchopulmonary hygiene Continue tube feeding Continue IV cefepime and vancomycin Continue IV fluids Critical care following ID following Labs and medication were reviewed.. Continue same treatment. Continue with symptomatic treatment. Resume home medication. Monitor labs and vitals. DVT and GI prophylaxis. Further recommendations as per clinical course of the patient Dictation was produced using [employer] dictation software. please excuse any grammatical, word or spelling errors. Objective - Vital Signs Vital signs: Vital Signs Temp 99.0 F 08/17/23 12:00 Pulse 96 08/17/23 13:00 Resp 18 08/17/23 13:00 BP 105/57 08/17/23 13:00 Pulse Ox 99 08/17/23 13:00 FiO2 30 08/17/23 12:00 Intake & Output 08/16/23 08/17/23 08/17/23 18:59 06:59 18:59 Intake Total 2202.956 1843.338 9889.641 Output Total 940 535 245 Balance 1350.057 7863.271 2042.641 Weight 122.2 kg 122.2 kg Intake: IV 1780 1430 780 DAPTOmycin 500 mg In 50 Sodium Chloride 0.9% 50 ml @ 100 mls/hr IVPB Q24H [facility] Rx#:[id number] Magnesium Sulfate-D5w Pmx 200 1 gm In Dextrose/Water 1 100ml.bag @ 100 mls/hr IVPB Q1H [facility] Rx#: [id number] Piperacillin-Tazobactam 3 100 .375 gm In Sodium Chloride 0.9% 100 ml @ 200 mls/hr IVPB [facility] Rx#:[id number] Sodium Chloride 0.9% 1, 1430 1430 780 000 ml @ 130 mls/hr IV . Q7H42M [facility] Rx#:[id number] Intake, IV Titration 292.956 408.076 0328.641 Amount Cefepime 2 gm In Sodium 100 Chloride 0.9% 100 ml @ 25 mls/hr IVPB Q8HR [facility] Rx# :[id number] Norepinephrine 32 mg In 3.178 Sodium Chloride 0.9% 218 ml @ 0.03 MCG/KG/MIN 2. 073 mls/hr IV .Q24H [facility] Rx#:[id number] Sodium Chloride 0.9% 1, 1000 000 ml @ 999 mls/hr IV . Q1H1M [facility] Rx#:[id number] propofoL 1,000 mg In 289.778 464.271 197.641 Empty Bag 1 bag @ 15 MCG/ KG/MIN 13.268 mls/hr IV . Q7H33M [facility] Rx#:[id number] Tube Feeding 70 60 Other 60 150 Output: Gastric Drainage 200 Urine 740 535 245 Other: Voiding Method Indwelling Catheter Indwelling Catheter Indwelling Catheter - Labs CBC & Chem 7: 08/17/23 05:53 08/17/23 05:53 Labs: Abnormal Lab Results - Last 24 Hours (Table) 08/15/23 08/16/23 08/17/23 Range/Units 18:29 18:12 00:53 WBC (3.8-10.6) k/uL RBC (3.80-5.40) m/uL Hgb (11.4-16.0) gm/dL Hct (34.0-46.0) % MCHC (31.0-37.0) g/dL RDW (11.5-15.5) % Neutrophils # (1.3-7.7) k/uL Lymphocytes # (1.0-4.8) k/uL ABG O2 Saturation (94-97) % Chloride (98-107) mmol/L Carbon Dioxide (22-30) mmol/L BUN (7-17) mg/dL Glucose (74-99) mg/dL POC Glucose (mg/dL) 319 H 191 H (70-110) mg/dL Calcium (8.4-10.2) mg/dL Procalcitonin 62.60 H (0.02-0.09) ng/mL 08/17/23 08/17/23 08/17/23 Range/Units 05:19 05:53 05:53 WBC 12.4 H (3.8-10.6) k/uL RBC 3.62 L (3.80-5.40) m/uL Hgb 9.8 L D (11.4-16.0) gm/dL Hct 31.8 L (34.0-46.0) % MCHC 30.8 L (31.0-37.0) g/dL RDW 16.3 H (11.5-15.5) % Neutrophils # 11.4 H (1.3-7.7) k/uL Lymphocytes # 0.3 L (1.0-4.8) k/uL ABG O2 Saturation 98.8 H (94-97) % Chloride 115 H (98-107) mmol/L Carbon Dioxide 20 L (22-30) mmol/L BUN 22 H (7-17) mg/dL Glucose 180 H (74-99) mg/dL POC Glucose (mg/dL) (70-110) mg/dL Calcium 8.3 L (8.4-10.2) mg/dL Procalcitonin (0.02-0.09) ng/mL 08/17/23 08/17/23 Range/Units 06:21 12:06 WBC (3.8-10.6) k/uL RBC (3.80-5.40) m/uL Hgb (11.4-16.0) gm/dL Hct (34.0-46.0) % MCHC (31.0-37.0) g/dL RDW (11.5-15.5) % Neutrophils # (1.3-7.7) k/uL Lymphocytes # (1.0-4.8) k/uL ABG O2 Saturation (94-97) % Chloride (98-107) mmol/L Carbon Dioxide (22-30) mmol/L BUN (7-17) mg/dL Glucose (74-99) mg/dL POC Glucose (mg/dL) 165 H 182 H (70-110) mg/dL Calcium (8.4-10.2) mg/dL Procalcitonin (0.02-0.09) ng/mL Microbiology - Last 24 Hours (Table) 08/15/23 20:34 Gram Stain - Preliminary Sputum Sputum Culture - Preliminary 08/15/23 18:25 Blood Culture - Preliminary Blood 08/15/23 18:10 Blood Culture - Preliminary Blood
--- NOTE | 2023-08-17 15:34 | P.PN ---
Subjective Progress Note Date: 08/17/23 Principal diagnosis: Reason for follow up sepsis/pneumonia/UTI Patient is a 53-year-old female past medical history significant for MS this patient has been [facility] resident also with a history of hyperlipidemia pneumonia history of chronic bilateral gluteal and sacral pressure ulcer and episodes of osteomyelitis has been brought to the hospital concerning for mental status changes did have worsening respiratory status and up getting intubated chest x-ray with left midlung airspace opacity concerning for pneumonia and urine was positive as well. On today's evaluation that is 08/17/2023, patient did have resolution of her fever and is afebrile this morning patient remains to be intubated on the vent FiO2 30% no significant purulent secretions through the ET patient sedation has been cut back and the patient responding per the nursing staff. Patient white count is down to 12.4, creatinine 0.69 sputum blood culture currently pending Objective - Vital Signs Vital signs: Vital Signs Temp 99.0 F 08/17/23 12:00 Pulse 96 08/17/23 13:00 Resp 18 08/17/23 13:00 BP 105/57 08/17/23 13:00 Pulse Ox 99 08/17/23 13:00 FiO2 30 08/17/23 12:00 Intake & Output 08/16/23 08/17/23 08/17/23 18:59 06:59 18:59 Intake Total 2202.956 8489.871 3710.641 Output Total 940 535 245 Balance 1257.351 1475.271 2042.641 Weight 122.2 kg 122.2 kg Intake: IV 1780 1430 780 DAPTOmycin 500 mg In 50 Sodium Chloride 0.9% 50 ml @ 100 mls/hr IVPB Q24H [facility] Rx#:[id number] Magnesium Sulfate-D5w Pmx 200 1 gm In Dextrose/Water 1 100ml.bag @ 100 mls/hr IVPB Q1H [facility] Rx#: [id number] Piperacillin-Tazobactam 3 100 .375 gm In Sodium Chloride 0.9% 100 ml @ 200 mls/hr IVPB [facility]CE [facility] Rx#:[id number] Sodium Chloride 0.9% 1, 1430 1430 780 000 ml @ 130 mls/hr IV . Q7H42M [facility] Rx#:[id number] Intake, IV Titration 292.956 331.233 6670.641 Amount Cefepime 2 gm In Sodium 100 Chloride 0.9% 100 ml @ 25 mls/hr IVPB Q8HR [facility] Rx# :[id number] Norepinephrine 32 mg In 3.178 Sodium Chloride 0.9% 218 ml @ 0.03 MCG/KG/MIN 2. 073 mls/hr IV .Q24H [facility] Rx#:[id number] Sodium Chloride 0.9% 1, 1000 000 ml @ 999 mls/hr IV . Q1H1M [facility] Rx#:[id number] propofoL 1,000 mg In 289.778 464.271 197.641 Empty Bag 1 bag @ 15 MCG/ KG/MIN 13.268 mls/hr IV . Q7H33M [facility] Rx#:[id number] Tube Feeding 70 60 Other 60 150 Output: Gastric Drainage 200 Urine 740 535 245 Other: Voiding Method Indwelling Catheter Indwelling Catheter Indwelling Catheter - Exam GENERAL DESCRIPTION: Middle-aged female intubated on the vent RESPIRATORY SYSTEM: Unlabored breathing , decreased breath sounds at bases HEART: S1 S2 regular rate and rhythm , ABDOMEN: Soft , no tenderness EXTREMITIES: No edema feet - Labs CBC & Chem 7: 08/17/23 05:53 08/17/23 05:53 Labs: Abnormal Lab Results - Last 24 Hours (Table) 08/15/23 08/16/23 08/17/23 Range/Units 18:29 18:12 00:53 WBC (3.8-10.6) k/uL RBC (3.80-5.40) m/uL Hgb (11.4-16.0) gm/dL Hct (34.0-46.0) % MCHC (31.0-37.0) g/dL RDW (11.5-15.5) % Neutrophils # (1.3-7.7) k/uL Lymphocytes # (1.0-4.8) k/uL ABG O2 Saturation (94-97) % Chloride (98-107) mmol/L Carbon Dioxide (22-30) mmol/L BUN (7-17) mg/dL Glucose (74-99) mg/dL POC Glucose (mg/dL) 319 H 191 H (70-110) mg/dL Calcium (8.4-10.2) mg/dL Procalcitonin 62.60 H (0.02-0.09) ng/mL 08/17/23 08/17/23 08/17/23 Range/Units 05:19 05:53 05:53 WBC 12.4 H (3.8-10.6) k/uL RBC 3.62 L (3.80-5.40) m/uL Hgb 9.8 L D (11.4-16.0) gm/dL Hct 31.8 L (34.0-46.0) % MCHC 30.8 L (31.0-37.0) g/dL RDW 16.3 H (11.5-15.5) % Neutrophils # 11.4 H (1.3-7.7) k/uL Lymphocytes # 0.3 L (1.0-4.8) k/uL ABG O2 Saturation 98.8 H (94-97) % Chloride 115 H (98-107) mmol/L Carbon Dioxide 20 L (22-30) mmol/L BUN 22 H (7-17) mg/dL Glucose 180 H (74-99) mg/dL POC Glucose (mg/dL) (70-110) mg/dL Calcium 8.3 L (8.4-10.2) mg/dL Procalcitonin (0.02-0.09) ng/mL 08/17/23 08/17/23 Range/Units 06:21 12:06 WBC (3.8-10.6) k/uL RBC (3.80-5.40) m/uL Hgb (11.4-16.0) gm/dL Hct (34.0-46.0) % MCHC (31.0-37.0) g/dL RDW (11.5-15.5) % Neutrophils # (1.3-7.7) k/uL Lymphocytes # (1.0-4.8) k/uL ABG O2 Saturation (94-97) % Chloride (98-107) mmol/L Carbon Dioxide (22-30) mmol/L BUN (7-17) mg/dL Glucose (74-99) mg/dL POC Glucose (mg/dL) 165 H 182 H (70-110) mg/dL Calcium (8.4-10.2) mg/dL Procalcitonin (0.02-0.09) ng/mL Microbiology - Last 24 Hours (Table) 08/15/23 20:34 Gram Stain - Preliminary Sputum Sputum Culture - Preliminary 08/15/23 18:25 Blood Culture - Preliminary Blood 08/15/23 18:10 Blood Culture - Preliminary Blood Assessment and Plan (1) Pneumonia Current Visit: Yes Status: Acute Code(s): J18.9 - PNEUMONIA, UNSPECIFIED ORGANISM SNOMED Code(s): 695615865 (2) Urinary tract infection Current Visit: Yes Status: Acute Code(s): N39.0 - URINARY TRACT INFECTION, SITE NOT SPECIFIED SNOMED Code(s): 25355912 (3) Leukocytosis Current Visit: No Status: Acute Code(s): D72.829 - ELEVATED WHITE BLOOD CELL COUNT, UNSPECIFIED SNOMED Code(s): 467662385 Plan: 1patient presented to hospital with sepsis in this patient who did have a fever tachycardia elevated white count source likely UTI and question of possible pneumonia as the patient did have respiratory failure requiring intubation and evidence of right-sided infiltrate on chest x-ray we will need to cover for resistant gram-positive as well as gram-negative pathogen 2-patient also have a bilateral gluteal pressure ulcer but no significant cellulitis clinically doubt source of this sepsis, local wound care with Aquacel dressing and keep the area of the pressure 3-patient to continue with the cefepime and vancomycin while waiting for the culture to finalize Dictation was produced using [employer] dictation software. please excuse any grammatical, word or spelling errors.
[2023-08-17 18:03] LABS: Glucose,Whole Blood 149 mg/dL (70-110)
[2023-08-17] MEDS: HYDROCORTISONE SUCCINATE 100 MG/2 ML VIAL IV SCH (23:36)
[2023-08-17 23:39] LABS: Glucose,Whole Blood 184 mg/dL (70-110)
[2023-08-18 04:56] LABS: ABG Base Excess -3.6 mmol/L; ABG HCO3 21 mmol/L (21-25); ABG Oxygen Saturation 99.9 % (94-97); ABG PCO2 37 mmHg (35-45); ABG PH 7.37 (7.35-7.45); ABG PO2 131 mmHg (83-108); Allen Test Performed? Yes
[2023-08-18 06:00] LABS: Glucose,Whole Blood 175 mg/dL (70-110)
--- NOTE | 2023-08-18 07:50 | XR ---
EXAMINATION TYPE: XR chest 1V portable DATE OF EXAM: 08/18/2023 COMPARISON: 08/17/2023 HISTORY: Shortness of breath TECHNIQUE: Single frontal view of the chest is obtained. FINDINGS: ET and NG tubes are noted in position. There is a interstitial pattern with subsegmental b asilar consolidation. Heart size stable. Osseous structures unchanged. Tiny pleural effusions exclude d. IMPRESSION: Bilateral interstitial infiltrates with tiny effusion correlate for interstitial pneumon itis\pneumonia versus CHF. No significant interval change.
[2023-08-18 08:46] LABS: Anisocytosis Slight; Basophils % (A) 0 %; Eosinophils % (A) 0 %; HCT 31.1 % (34.0-46.0); HGB 9.6 gm/dL (11.4-16.0); Hypochromasia Marked; Lymphocytes # (A) 0.6 k/uL (1.0-4.8); Lymphocytes % (A) 5 %; MCH 27.7 pg (25.0-35.0); MCV 89.4 fL (80.0-100.0); Mean Platelet Volume 8.7; Monocytes # (A) 0.6 k/uL (0-1.0); Monocytes % (A) 6 %; Neutrophils # (A) 9.2 k/uL (1.3-7.7); Neutrophils % (A) 87 %; Platelet Count 224 k/uL (150-450); RBC 3.48 m/uL (3.80-5.40); RDW 16.2 % (11.5-15.5); WBC 10.7 k/uL (3.8-10.6)
[2023-08-18 08:50] LABS: African American GFR (CKD) >90 (>60 ml/min/1.73 sqM); Anion Gap 6 mmol/L; Blood Urea Nitrogen 19 mg/dL (7-17); Calcium 8.4 mg/dL (8.4-10.2); Carbon Dioxide 19 mmol/L (22-30); Chloride 123 mmol/L (98-107); Glucose 150 mg/dL (74-99); Non-African American GFR(CKD) >90 (>60 ml/min/1.73 sqM); Sodium 148 mmol/L (137-145)
[2023-08-18 08:54] LABS: Potassium 3.5 mmol/L (3.5-5.1)
[2023-08-18] MEDS: VANCOMYCIN TROUGH DUE 1 EACH MISC MISCELLANE ONE (10:11)
[2023-08-18] MEDS: POTASSIUM CHLORIDE 20 MEQ in WATER FOR INJECTION 1 100ML.BAG IVPB SCH ×2 (10:11→18:12)
[2023-08-18] MEDS: FUROSEMIDE 10 MG/ML 4 ML VIAL IV STA (10:11)
[2023-08-18] MEDS: DEXTROSE 5% IN WATER 1,000 ML IV SCH (10:26)
[2023-08-18 11:38] LABS: Glucose,Whole Blood 169 mg/dL (70-110)
[2023-08-18 12:11] LABS: ABG Base Excess -2.7 mmol/L; ABG HCO3 23 mmol/L (21-25); ABG Oxygen Saturation 99.3 % (94-97); ABG PCO2 42 mmHg (35-45); ABG PH 7.35 (7.35-7.45); ABG PO2 118 mmHg (83-108); Allen Test Performed? Yes
[2023-08-18] MEDS ORDERED: VANCOMYCIN IV PER PHARMACY 1 EACH MISC MISCELLANE PRN (12:42)
--- NOTE | 2023-08-18 13:35 | P.PN ---
Subjective Progress Note Date: 08/18/23 patient is a 53-year-old lady with past medical history significant for MS who is a resident of a [facility] brought to the ER for altered mental status. Most of the history has been limited and obtained from EMR. Patient has been complaining of fever and shortness of breath for the last day. Patient was found to be confused. There was concern of patient having pneumonia and patient was immediately brought to the ER Initial lab work done in the ER showed WBC 8.7, hemoglobin 11.5, platelet count 269, sodium 139, potassium 4.3, BUN 23, creatinine 0.93, glucose 171, plasma 4.5, calcium 9, phosphorus 3.4, magnesium 1.6, bilirubin 0.8, AST 31, ALT 24, alk phos 76, TSH 2.4 EKG done in the ER showed heart rate of , no ST segment elevation or depression seen, no T-wave inversions seen. Chest x-ray done in the ER showed left lower lobe pneumonia, cardiomegaly Patient was intubated and was admitted to ICU under internal medicine 08/16. Patient seen and examined. Currently in the ICU. Currently on tube feeding and on propofol. Patient off the pressors. Critical care planning sedation holiday today 08/17. Patient seen and examined. Patient was extubated this morning. Currently on nasal cannula REVIEW OF SYSTEMS: Cannot be obtained as patient is just extubated PHYSICAL EXAMINATION: GENERAL: The patient is alert HEENT: Pupils are round and equally reacting to light. EOMI. No scleral icterus. No conjunctival pallor. Normocephalic, atraumatic. No pharyngeal erythema. No thyromegaly. CARDIOVASCULAR: S1 and S2 present. No murmurs, rubs, or gallops. PULMONARY: Chest is clear to auscultation, no wheezing or crackles. ABDOMEN: Soft, nontender, nondistended, normoactive bowel sounds. No palpable organomegaly. MUSCULOSKELETAL: No joint swelling or deformity. EXTREMITIES: No cyanosis, clubbing, or pedal edema. NEUROLOGICAL: Following commands SKIN: No rashes. Assessment and plan Acute hypoxic respiratory failure Bacterial pneumonia Septic shock Lactic acidosis Chronic anemia Severe MS, not in exacerbation Hypothyroid Dyslipidemia Monitor vital signs Monitor CBC Monitor CMP Continue telemetry monitoring Aggressive bronchopulmonary hygiene Follow-up on blood cultures Follow-up on urine culture Continue aggressive bronchopulmonary hygiene Continue IV cefepime and vancomycin Continue IV fluids Critical care following ID following Labs and medication were reviewed.. Continue same treatment. Continue with symptomatic treatment. Resume home medication. Monitor labs and vitals. DVT and GI prophylaxis. Further recommendations as per clinical course of the patient Dictation was produced using [employer] dictation software. please excuse any grammatical, word or spelling errors. Objective - Vital Signs Vital signs: Vital Signs Temp 98.8 F 08/18/23 12:00 Pulse 84 08/18/23 13:00 Resp 19 08/18/23 13:00 BP 134/77 08/18/23 13:00 Pulse Ox 97 08/18/23 13:00 FiO2 30 08/18/23 12:00 Intake & Output 08/17/23 08/18/23 08/18/23 18:59 06:59 18:59 Intake Total 3320.462 3056.286 1534.702 Output Total 802 045 9824 Balance 2800.462 2296.286 -1095.298 Weight 122.2 kg 125.7 kg Intake: IV 1560 2230 430 Cefepime 2 gm In Sodium 100 Chloride 0.9% 100 ml @ 25 mls/hr IVPB Q12HR [facility] Rx #:[id number] KVO 70 40 Sodium Chloride 0.9% 1, 1560 1560 390 000 ml @ 130 mls/hr IV . Q7H42M [facility] Rx#:[id number] Vancomycin 2,000 mg In 500 Sodium Chloride 0.9% 500 ml 500 ml @ 167 mls/hr IVPB Q12HR [facility] Rx#: [id number] Intake, IV Titration 1490.462 648.977 7232.702 Amount Cefepime 2 gm In Sodium 100 100 Chloride 0.9% 100 ml @ 25 mls/hr IVPB Q8HR [facility] Rx# :[id number] Dextrose 5% in Water 1, 300 000 ml @ 75 mls/hr IV . [id number] [facility] Rx#:[id number] Sodium Chloride 0.9% 1, 1000 000 ml @ 999 mls/hr IV . Q1H1M [facility] Rx#:[id number] Vancomycin 2,000 mg In 500 Sodium Chloride 0.9% 500 ml 500 ml @ 167 mls/hr IVPB Q12HR [facility] Rx#: [id number] propofoL 1,000 mg In 390.462 366.286 179.702 Empty Bag 1 bag @ 15 MCG/ KG/MIN 13.268 mls/hr IV . Q7H33M [facility] Rx#:[id number] Tube Feeding 120 270 25 Other 150 190 Output: Urine 062 825 1930 Other: Voiding Method Indwelling Catheter Indwelling Catheter Indwelling Catheter - Labs CBC & Chem 7: 08/18/23 08:08 08/18/23 08:08 Labs: Abnormal Lab Results - Last 24 Hours (Table) 08/17/23 08/17/23 08/18/23 Range/Units 18:01 23:37 04:55 WBC (3.8-10.6) k/uL RBC (3.80-5.40) m/uL Hgb (11.4-16.0) gm/dL Hct (34.0-46.0) % RDW (11.5-15.5) % Neutrophils # (1.3-7.7) k/uL Lymphocytes # (1.0-4.8) k/uL ABG pO2 131 H (83-108) mmHg ABG O2 Saturation 99.9 H (94-97) % Sodium (137-145) mmol/L Chloride (98-107) mmol/L Carbon Dioxide (22-30) mmol/L BUN (7-17) mg/dL Glucose (74-99) mg/dL POC Glucose (mg/dL) 149 H 184 H (70-110) mg/dL Vancomycin Trough ug/mL 08/18/23 08/18/23 08/18/23 Range/Units 05:58 08:08 08:08 WBC 10.7 H (3.8-10.6) k/uL RBC 3.48 L (3.80-5.40) m/uL Hgb 9.6 L (11.4-16.0) gm/dL Hct 31.1 L (34.0-46.0) % RDW 16.2 H (11.5-15.5) % Neutrophils # 9.2 H (1.3-7.7) k/uL Lymphocytes # 0.6 L (1.0-4.8) k/uL ABG pO2 (83-108) mmHg ABG O2 Saturation (94-97) % Sodium 148 H (137-145) mmol/L Chloride 123 H (98-107) mmol/L Carbon Dioxide 19 L (22-30) mmol/L BUN 19 H (7-17) mg/dL Glucose 150 H (74-99) mg/dL POC Glucose (mg/dL) 175 H (70-110) mg/dL Vancomycin Trough ug/mL 08/18/23 08/18/23 08/18/23 Range/Units 08:08 11:37 12:06 WBC (3.8-10.6) k/uL RBC (3.80-5.40) m/uL Hgb (11.4-16.0) gm/dL Hct (34.0-46.0) % RDW (11.5-15.5) % Neutrophils # (1.3-7.7) k/uL Lymphocytes # (1.0-4.8) k/uL ABG pO2 118 H (83-108) mmHg ABG O2 Saturation 99.3 H (94-97) % Sodium (137-145) mmol/L Chloride (98-107) mmol/L Carbon Dioxide (22-30) mmol/L BUN (7-17) mg/dL Glucose (74-99) mg/dL POC Glucose (mg/dL) 169 H (70-110) mg/dL Vancomycin Trough 30.6 H* ug/mL Microbiology - Last 24 Hours (Table) 08/15/23 20:34 Gram Stain - Final Sputum Sputum Culture - Final 08/15/23 18:25 Blood Culture - Preliminary Blood 08/15/23 18:10 Blood Culture - Preliminary Blood 08/15/23 18:10 Urine Culture - Final Urine,Voided
--- NOTE | 2023-08-18 13:54 | P.PN ---
Subjective Progress Note Date: 08/18/23 Principal diagnosis: Acute septic shock with acute hypoxic respiratory failure requiring intubation mechanical ventilation This is a 54-year-old female patient, currently intubated on mechanical ventilator. She arrived to the hospital from the half-way because of altered mental status and sepsis. The patient was found laying in bed, lethargic, extremely weak. She had a temperature of 102.3. Blood sugar was 190. She was given a bolus of 500 cc. In the ED, the patient was given additional IV fluids a total of 3 L. Events progressed since then. Details are not available and ultimately the patient was intubated and placed on the mechanical ventilator. Based on my review of the records, the patient has received a total of 4 L of IV fluids and she was started also on antibiotics and the patient is currently on a combination of Rocephin, Levaquin and vancomycin. Based on my review of the records, the patient is a half-way resident she has advanced multiple sclerosis with stage IV buttocks wounds and previous cultures from those wounds from 06/19/2023 yielded a combination of E. coli, Proteus and Enterococcus faecalis. She also has had previous urine tract infection with Pseudomonas aeruginosa and Enterococcus faecalis. The patient also had staph septicemia with MRSA based on positive blood cultures from 06/19/2023. Repeat blood cultures from 06/21/2023 was negative. She was at a half-way and she was eating a combination of cefepime and vancomycin and she completed antibiotic course on 08/24/2015 07/06/2023. At this point in time, the patient is intubated on mechanical ventilator, she is sedated with propofol which is running at 3035 mcg/kg/min IV fluids are in the form of normal saline at rate of 130 cc an hour. The patient is off pressors. Note that she required pressors overnight and the norepinephrine was running as high as 0.08 mcg/kg/min. The patient is currently on the mechanical ventilator assist-control mode, she is at the rate of 16, tidal volume of 450, FiO2 of 50% with a PEEP of 5. The chest x-ray is showing some limited bibasilar pulmonary infiltrates. Otherwise no clear airspace disease or consolidation. Blood gas from this morning shows a pH of 7.3 with a pCO2 of 43 and pO2 of 180. The white cell count is at 24, hemoglobin 12.1 and platelet count is 253. Sodium is at 142, potassium is at 4.7, BUN is 23 with a creatinine of 0.8. LFTs are essentially within normal limits. UA showed 48 WBCs and 20 RBCs. Patient was eval today on 08/17/2023, patient remains in the ICU, intubated and mechanically ventilated. Patient is on assist-control rate of 16 tidal volume 450 FiO2 30% and PEEP of 5 ABG showed a pO2 of 104 pCO2 42 pH of 7.36, hence no ventilator setting changes were made. Patient is still receiving vancomycin and cefepime empirically for her presentation of sepsis and septic shock. This is being addressed by infectious disease on the case. Patient remains on propofol at 45 mcg/kg/min and she is on IV fluid 0.9 normal saline at 130 cc/h receiving nutritional support/enteral feeding vital AF at 10 cc/h. Patient has underlying MS, and she has underlying chronic decubitus ulcers being addressed by infectious disease on the case. Chest x-ray showed minimal prominence of the interstitium/possible interstitial pneumonitis. WBC count is 12.4 hemoglobin 9.8 basic metabolic profile is normal bicarb is 20 BUN is 22, creatinine 0.69 sputum cultures and blood cultures are pending so far nondiagnostic patient is sedated, and I have recommended sedation holiday today, and interruption of sedation with assessment of mental status sometime this morning. Patient was evaluated today on 08/18/2023, patient remains in the ICU, intubated and mechanically ventilated. Patient is on assist-control rate of 16 tidal volume 450 FiO2 30% PEEP of 5 ABG showed a pO2 of 131 pCO2 37 pH of 7.37. X-ray is showing possibly some component of interstitial edema, hence Lasix 40 mg IV push x 1 was given. Patient remains on IV fluid which I changed from 0.9 normal saline to D5W at 75 cc/h remains on propofol at 40 mcg/kg/min she is on cefepime and vancomycin, patient had negative cultures so far. That is negative sputum cultures and negative blood cultures urine culture however is polymicrobial and needs repeat urine culture WBC count today is 10.7 hemoglobin is 9.6. Electrolytes showed hyponatremia with a sodium of 148, normal potassium and normal renal profile. Objective - Vital Signs Vital signs: Vital Signs Temp 98.8 F 08/18/23 12:00 Pulse 84 08/18/23 13:00 Resp 19 08/18/23 13:00 BP 134/77 08/18/23 13:00 Pulse Ox 97 08/18/23 13:00 FiO2 30 08/18/23 12:00 Intake & Output 08/17/23 08/18/23 08/18/23 18:59 06:59 18:59 Intake Total 3320.462 3056.286 1534.702 Output Total 442 264 8326 Balance 2800.462 2296.286 -1095.298 Weight 122.2 kg 125.7 kg Intake: IV 1560 2230 430 Cefepime 2 gm In Sodium 100 Chloride 0.9% 100 ml @ 25 mls/hr IVPB Q12HR [facility] Rx #:[id number] KVO 70 40 Sodium Chloride 0.9% 1, 1560 1560 390 000 ml @ 130 mls/hr IV . Q7H42M [facility] Rx#:[id number] Vancomycin 2,000 mg In 500 Sodium Chloride 0.9% 500 ml 500 ml @ 167 mls/hr IVPB Q12HR [facility] Rx#: [id number] Intake, IV Titration 1490.462 365.303 4689.702 Amount Cefepime 2 gm In Sodium 100 100 Chloride 0.9% 100 ml @ 25 mls/hr IVPB Q8HR [facility] Rx# :[id number] Dextrose 5% in Water 1, 300 000 ml @ 75 mls/hr IV . [id number] [facility] Rx#:[id number] Sodium Chloride 0.9% 1, 1000 000 ml @ 999 mls/hr IV . Q1H1M [facility] Rx#:[id number] Vancomycin 2,000 mg In 500 Sodium Chloride 0.9% 500 ml 500 ml @ 167 mls/hr IVPB Q12HR [facility] Rx#: [id number] propofoL 1,000 mg In 390.462 366.286 179.702 Empty Bag 1 bag @ 15 MCG/ KG/MIN 13.268 mls/hr IV . Q7H33M [facility] Rx#:[id number] Tube Feeding 120 270 25 Other 150 190 Output: Urine 013 591 0892 Other: Voiding Method Indwelling Catheter Indwelling Catheter Indwelling Catheter - Exam -GENERAL: Reveals a 53-year-old female intubated and mechanically ventilated. Head: Atraumatic, normocephalic. Tracheal tube and orogastric tube are intact HEENT: Pupils are round and equally reacting to light. EOMI. No scleral icterus. No conjunctival pallor. Normocephalic, atraumatic. No pharyngeal erythema. No thyromegaly. CARDIOVASCULAR: Distant S1-S2, no S3 gallop, no murmur PULMONARY: Clear throughout no crackles rhonchi or wheezes ABDOMEN: Obese soft nontender no megaly no rebound MUSCULOSKELETAL: No joint swelling or deformity. EXTREMITIES: The patient has chronic edema lower extremitie. Neurologic: Could not assess, patient is sedated with propofol. Psychiatric: Could not assess SKIN: No rashes. no petechiae. - Labs CBC & Chem 7: 08/18/23 08:08 08/18/23 08:08 Labs: Abnormal Lab Results - Last 24 Hours (Table) 08/17/23 08/17/23 08/18/23 Range/Units 18:01 23:37 04:55 WBC (3.8-10.6) k/uL RBC (3.80-5.40) m/uL Hgb (11.4-16.0) gm/dL Hct (34.0-46.0) % RDW (11.5-15.5) % Neutrophils # (1.3-7.7) k/uL Lymphocytes # (1.0-4.8) k/uL ABG pO2 131 H (83-108) mmHg ABG O2 Saturation 99.9 H (94-97) % Sodium (137-145) mmol/L Chloride (98-107) mmol/L Carbon Dioxide (22-30) mmol/L BUN (7-17) mg/dL Glucose (74-99) mg/dL POC Glucose (mg/dL) 149 H 184 H (70-110) mg/dL Vancomycin Trough ug/mL 08/18/23 08/18/23 08/18/23 Range/Units 05:58 08:08 08:08 WBC 10.7 H (3.8-10.6) k/uL RBC 3.48 L (3.80-5.40) m/uL Hgb 9.6 L (11.4-16.0) gm/dL Hct 31.1 L (34.0-46.0) % RDW 16.2 H (11.5-15.5) % Neutrophils # 9.2 H (1.3-7.7) k/uL Lymphocytes # 0.6 L (1.0-4.8) k/uL ABG pO2 (83-108) mmHg ABG O2 Saturation (94-97) % Sodium 148 H (137-145) mmol/L Chloride 123 H (98-107) mmol/L Carbon Dioxide 19 L (22-30) mmol/L BUN 19 H (7-17) mg/dL Glucose 150 H (74-99) mg/dL POC Glucose (mg/dL) 175 H (70-110) mg/dL Vancomycin Trough ug/mL 08/18/23 08/18/23 08/18/23 Range/Units 08:08 11:37 12:06 WBC (3.8-10.6) k/uL RBC (3.80-5.40) m/uL Hgb (11.4-16.0) gm/dL Hct (34.0-46.0) % RDW (11.5-15.5) % Neutrophils # (1.3-7.7) k/uL Lymphocytes # (1.0-4.8) k/uL ABG pO2 118 H (83-108) mmHg ABG O2 Saturation 99.3 H (94-97) % Sodium (137-145) mmol/L Chloride (98-107) mmol/L Carbon Dioxide (22-30) mmol/L BUN (7-17) mg/dL Glucose (74-99) mg/dL POC Glucose (mg/dL) 169 H (70-110) mg/dL Vancomycin Trough 30.6 H* ug/mL Microbiology - Last 24 Hours (Table) 08/15/23 20:34 Gram Stain - Final Sputum Sputum Culture - Final 08/15/23 18:25 Blood Culture - Preliminary Blood 08/15/23 18:10 Blood Culture - Preliminary Blood 08/15/23 18:10 Urine Culture - Final Urine,Voided Assessment and Plan Assessment: Impression: Sepsis and septic shock is strongly suspected, exact source is unclear but most likely from sacral decubitus ulcers Acute hypoxic respiratory failure requiring intubation mechanical ventilation Advanced multiple sclerosis Hypotension secondary to sepsis and septic shock requiring pressors initially patient had previous history of positive Pseudomonas and Enterococcus faecalis infection/type History of neurogenic bladder History of stage IV right buttocks ulcers and positive drainage Acute leukocytosis secondary to above History of hypothyroidism History of dyslipidemia. Recommendation: Continue ventilatory support, however the patient will be given possibly a sedation holiday, and if she does well may consider a weaning trial with a pressure support of 10 and CPAP. Check full cultures including wounds cultures, urine cultures, blood cultures and sputum cultures and adjust antibiotics accordingly. So far the cultures are nondiagnostic Continue cefepime and vancomycin for now Continue GI and DVT prophylaxis Continue IV Protonix and Lovenox Continue sliding scale coverage for elevated blood sugar Continue sliding scale insulin coverage Hold enteral feeding today if the patient is to be weaned and extubated. Will continue to follow. Patient is critically ill, critical care time is over 30 minutes Time with Patient: Greater than 30
[2023-08-18 18:11] LABS: Glucose,Whole Blood 148 mg/dL (70-110)
[2023-08-18] MEDS: IPRATROPIUM-ALBUTEROL 3 ML NEB INHALATION SCH (20:24)
[2023-08-18 23:30] LABS: Glucose,Whole Blood 175 mg/dL (70-110)
[2023-08-19] MEDS: POTASSIUM CHLORIDE 20 MEQ in WATER FOR INJECTION 1 100ML.BAG IVPB SCH (02:06)
[2023-08-19 05:09] LABS: Glucose,Whole Blood 153 mg/dL (70-110)
[2023-08-19 07:28] LABS: Basophils % (A) 0 %; Eosinophils % (A) 0 %; HCT 31.2 % (34.0-46.0); HGB 9.5 gm/dL (11.4-16.0); Hypochromasia Marked; Lymphocytes # (A) 0.5 k/uL (1.0-4.8); Lymphocytes % (A) 9 %; MCH 27.2 pg (25.0-35.0); MCHC 30.5 g/dL (31.0-37.0); MCV 89.4 fL (80.0-100.0); Mean Platelet Volume 8.7; Monocytes # (A) 0.3 k/uL (0-1.0); Monocytes % (A) 6 %; Neutrophils # (A) 4.8 k/uL (1.3-7.7); Neutrophils % (A) 82 %; Platelet Count 193 k/uL (150-450); RBC 3.49 m/uL (3.80-5.40); WBC 5.8 k/uL (3.8-10.6)
[2023-08-19 07:34] LABS: African American GFR (CKD) >90 (>60 ml/min/1.73 sqM); Anion Gap 4 mmol/L; Blood Urea Nitrogen 18 mg/dL (7-17); Calcium 8.7 mg/dL (8.4-10.2); Carbon Dioxide 23 mmol/L (22-30); Chloride 121 mmol/L (98-107); Glucose 139 mg/dL (74-99); Non-African American GFR(CKD) >90 (>60 ml/min/1.73 sqM); Sodium 148 mmol/L (137-145)
--- NOTE | 2023-08-19 08:17 | P.PN ---
Subjective Progress Note Date: 08/18/23 Principal diagnosis: Reason for follow up sepsis/pneumonia/UTI Patient is a 53-year-old female past medical history significant for MS this patient has been bedbound care home resident also with a history of hyperlipidemia pneumonia history of chronic bilateral gluteal and sacral pressure ulcer and episodes of osteomyelitis has been brought to the hospital concerning for mental status changes did have worsening respiratory status and up getting intubated chest x-ray with left midlung airspace opacity concerning for pneumonia and urine was positive as well. On today's evaluation that is 08/18/2023,the patient has been extubated and currently breathing comfortably on 3 L nasal cannula oxygen patient is lethargic but arousable did answer simple question patient is hemodynamically stable not requiring any pressor support no vomiting diarrhea or any other changes reported by nursing staff. Patient white count is down to 10.7, creatinine 0.60 cultures currently pending Objective - Vital Signs Vital signs: Vital Signs Temp 98.8 F 08/18/23 12:00 Pulse 84 08/18/23 13:00 Resp 19 08/18/23 13:00 BP 134/77 08/18/23 13:00 Pulse Ox 97 08/18/23 13:00 FiO2 30 08/18/23 12:00 Intake & Output 08/17/23 08/18/23 08/18/23 18:59 06:59 18:59 Intake Total 3320.462 3056.286 1534.702 Output Total 192 951 5894 Balance 2800.462 2296.286 -1095.298 Weight 122.2 kg 125.7 kg Intake: IV 1560 2230 430 Cefepime 2 gm In Sodium 100 Chloride 0.9% 100 ml @ 25 mls/hr IVPB Q12HR [facility] Rx #:[id number] KVO 70 40 Sodium Chloride 0.9% 1, 1560 1560 390 000 ml @ 130 mls/hr IV . Q7H42M [facility] Rx#:[id number] Vancomycin 2,000 mg In 500 Sodium Chloride 0.9% 500 ml 500 ml @ 167 mls/hr IVPB Q12HR [facility] Rx#: [id number] Intake, IV Titration 1490.462 766.240 0609.702 Amount Cefepime 2 gm In Sodium 100 100 Chloride 0.9% 100 ml @ 25 mls/hr IVPB Q8HR [facility] Rx# :[id number] Dextrose 5% in Water 1, 300 000 ml @ 75 mls/hr IV . [id number] [facility] Rx#:[id number] Sodium Chloride 0.9% 1, 1000 000 ml @ 999 mls/hr IV . Q1H1M [facility] Rx#:[id number] Vancomycin 2,000 mg In 500 Sodium Chloride 0.9% 500 ml 500 ml @ 167 mls/hr IVPB Q12HR [facility] Rx#: [id number] propofoL 1,000 mg In 390.462 366.286 179.702 Empty Bag 1 bag @ 15 MCG/ KG/MIN 13.268 mls/hr IV . Q7H33M [facility] Rx#:[id number] Tube Feeding 120 270 25 Other 150 190 Output: Urine 142 640 4164 Other: Voiding Method Indwelling Catheter Indwelling Catheter Indwelling Catheter - Exam GENERAL DESCRIPTION: Middle-aged female lying in bed in no distress RESPIRATORY SYSTEM: Unlabored breathing , decreased breath sounds at bases HEART: S1 S2 regular rate and rhythm , ABDOMEN: Soft , no tenderness EXTREMITIES: Diffuse swelling to bilateral lower extremity with some erythema but no open wound - Labs CBC & Chem 7: 08/19/23 06:42 08/19/23 06:42 Labs: Abnormal Lab Results - Last 24 Hours (Table) 08/17/23 08/17/23 08/18/23 Range/Units 18:01 23:37 04:55 WBC (3.8-10.6) k/uL RBC (3.80-5.40) m/uL Hgb (11.4-16.0) gm/dL Hct (34.0-46.0) % RDW (11.5-15.5) % Neutrophils # (1.3-7.7) k/uL Lymphocytes # (1.0-4.8) k/uL ABG pO2 131 H (83-108) mmHg ABG O2 Saturation 99.9 H (94-97) % Sodium (137-145) mmol/L Chloride (98-107) mmol/L Carbon Dioxide (22-30) mmol/L BUN (7-17) mg/dL Glucose (74-99) mg/dL POC Glucose (mg/dL) 149 H 184 H (70-110) mg/dL Vancomycin Trough ug/mL 05/08/18/23 08/18/23 Range/Units 05:58 08:08 08:08 WBC 10.7 H (3.8-10.6) k/uL RBC 3.48 L (3.80-5.40) m/uL Hgb 9.6 L (11.4-16.0) gm/dL Hct 31.1 L (34.0-46.0) % RDW 16.2 H (11.5-15.5) % Neutrophils # 9.2 H (1.3-7.7) k/uL Lymphocytes # 0.6 L (1.0-4.8) k/uL ABG pO2 (83-108) mmHg ABG O2 Saturation (94-97) % Sodium 148 H (137-145) mmol/L Chloride 123 H (98-107) mmol/L Carbon Dioxide 19 L (22-30) mmol/L BUN 19 H (7-17) mg/dL Glucose 150 H (74-99) mg/dL POC Glucose (mg/dL) 175 H (70-110) mg/dL Vancomycin Trough ug/mL 08/18/23 08/18/23 08/18/23 Range/Units 08:08 11:37 12:06 WBC (3.8-10.6) k/uL RBC (3.80-5.40) m/uL Hgb (11.4-16.0) gm/dL Hct (34.0-46.0) % RDW (11.5-15.5) % Neutrophils # (1.3-7.7) k/uL Lymphocytes # (1.0-4.8) k/uL ABG pO2 118 H (83-108) mmHg ABG O2 Saturation 99.3 H (94-97) % Sodium (137-145) mmol/L Chloride (98-107) mmol/L Carbon Dioxide (22-30) mmol/L BUN (7-17) mg/dL Glucose (74-99) mg/dL POC Glucose (mg/dL) 169 H (70-110) mg/dL Vancomycin Trough 30.6 H* ug/mL Microbiology - Last 24 Hours (Table) 08/15/23 20:34 Gram Stain - Final Sputum Sputum Culture - Final 08/15/23 18:25 Blood Culture - Preliminary Blood 08/15/23 18:10 Blood Culture - Preliminary Blood 08/15/23 18:10 Urine Culture - Final Urine,Voided Assessment and Plan (1) Pneumonia Current Visit: Yes Status: Acute Code(s): J18.9 - PNEUMONIA, UNSPECIFIED ORGANISM SNOMED Code(s): 823348181 (2) Urinary tract infection Current Visit: Yes Status: Acute Code(s): N39.0 - URINARY TRACT INFECTION, SITE NOT SPECIFIED SNOMED Code(s): 34188577 (3) Leukocytosis Current Visit: No Status: Acute Code(s): D72.829 - ELEVATED WHITE BLOOD CELL COUNT, UNSPECIFIED SNOMED Code(s): 412875332 Plan: 1patient presented to hospital with sepsis in this patient who did have a fever tachycardia elevated white count source likely UTI and question of possible pneumonia as the patient did have respiratory failure requiring intubation and evidence of right-sided infiltrate on chest x-ray we will need to cover for resistant gram-positive as well as gram-negative pathogen 2-patient also have a bilateral gluteal pressure ulcer but no significant cellulitis clinically doubt source of this sepsis, local wound care with Aquacel dressing and keep the area of the pressure 3-patient has been extubated fever resolved white count is trending down 4patient to continue with the cefepime and vancomycin while waiting for the culture to finalize Dictation was produced using [employer] dictation software. please excuse any grammatical, word or spelling errors. Time with Patient: Less than 30
--- NOTE | 2023-08-19 11:58 | P.CONS ---
History of Present Illness - Reason for Consult Consult date: 08/19/23 wound care - History of Present Illness This is a 53-year-old patient with past medical history significant for MS, bedbound, chronic gluteal sacral ulcerations, osteomyelitis. Being seen in the ICU for nonhealing ulceration to the sacrum. Patient has a coccyx ulceration measuring approximately 0.4 x 1.6 x 0.1 cm with slough and nonviable tissue present minimal granulation noted. Patient has a cluster of 2 ulcerations to the left buttocks superior ulceration able to palpate bone. Measures approximately 0.5 x 0.5 x 2 cm inferior ulceration measures approximately 2 x 2 x 0.1 cm granulation noted to the inferior ulceration. Periwound is excoriated and macerated. Patient states that she does not know what is being utilized for wound care at the [facility] facility however she has had multiple dressings including negative pressure wound VAC however the wound VAC did not help related to skin breakdown to the periwound. Review Of Systems: Constitutional: No fever, no chills, no night sweats. No weight change. No weakness, fatigue or lethargy. No daytime sleepiness. Integumentary:reports wounds, no lesions. No rash or pruritus. No unusual bruising. No change in hair or nails. Physical exam: General Appearance: Alert, cooperative, no distress, appears stated age. Skin: See HPI all other Skin color, texture, tugor normal, no rashes or lesions. Neurologic: Alert oriented x3 Assessment: 1. Stage II pressure ulcer left buttocks 2. Stage III pressure ulcer left buttocks 4. Stage II pressure ulcer coccyx Plan: 1. Apply honey gel to open ulcerations and bordered foam. Apply Triad to macerated skin to bilateral buttocks. Utilize Triad daily and as needed. Change honey gel Wednesday. Turn patient every 2 hours. Utilize a appropriate surface for offloading. Thank you for the consultation any questions please contact the wound care center DNP note has been reviewed and discussed with Dr. Rees and the impression and plan of care has been directed as dictated. Past Medical History Past Medical History: Hyperlipidemia, Musculoskeletal Disorder, Neurologic Disorder, Pneumonia, Renal Disease, Skin Disorder Additional Past Medical History / Comment(s): Multiple sclerosis stage IV- wheelchair bound, L side weaker than right, past renal failure with hemodialysis-last time was July 2016, neurogenic bladder with indwelling [place], past sepsis, iron deficiency anemia, wounds present on bilateral gluteal folds and sacral area History of Any Multi-Drug Resistant Organisms: ESBL, MRSA, VRE Year Discovered:: 06/19/23 MRSA; 06/19/23 ESBL; 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 MDRO Source:: Blood-MRSA; Urine-VRE and ESBL Past Surgical History: No Surgical Hx Reported Additional Past Surgical History / Comment(s): LP, debridement decubitus sacral ulcer, hemodialysis cath since removed, picc lines Past Anesthesia/Blood Transfusion Reactions: No Reported Reaction Additional Past Anesthesia/Blood Transfusion Reaction / Comm: NEVER HAD ANY GENERAL ANES Past Psychological History: No Psychological Hx Reported Additional Psychological History / Comment(s): Pt resides at [facility]. She states she is mostly wheelchair bound-sit to stand device to chair. She has an IDC. Pt feeds herself. Smoking Status: Never smoker Past Alcohol Use History: None Reported Additional Past Alcohol Use History / Comment(s): Patient is a lifelong nonsmoker. She denies any alcohol abuse. Past Drug Use History: None Reported - Past Family History Father History Unknown: Yes Additional Family Medical History / Comment(s): PTS DAD LIVED IN [place]- SHE'S NOT SURE WHAT HE FROM. HE HAD HYPOTENSION. Mother Family Medical History: Coronary Artery Disease (CAD), Diabetes Mellitus, Hyperlipidemia, Hypertension Additional Family Medical History / Comment(s): CARDIAC STENTS Medications and Allergies Home Medications Medication Instructions Recorded Confirmed Type Potassium Chloride ER [K-Dur 20] 20 meq PO BID 01/12/19 08/16/23 History Aspirin 81 mg PO DAILY 09/15/19 08/16/23 History Sennosides [Senna] 8.6 mg PO BID 01/31/20 08/16/23 History Atorvastatin [Lipitor] 10 mg PO HS 09/22/21 08/16/23 History Diroximel Fumarate [Vumerity] 462 mg PO BID 09/22/21 08/16/23 History Levothyroxine Sodium [Synthroid] 75 mcg PO HS 09/22/21 08/16/23 History Ascorbic Acid [Vitamin C] 500 mg PO DAILY 05/14/22 08/16/23 History Furosemide [Lasix] 20 mg PO DAILY 05/14/22 08/16/23 History Pro-Stat Liquid (Amino 30 ml PO DAILY 05/14/22 08/16/23 History Acids-Protein Hydrolysate) Baclofen 10 mg PO TID@0700,1300,1900 12/22/22 08/16/23 History Multivitamins, Thera [Multivitamin 1 tab PO DAILY 12/22/22 08/16/23 History (formulary)] Folic Acid 0.4 mg PO BID 06/19/23 08/16/23 History Naloxone HCl 0.4 mg SQ DIRECTED PRN 06/19/23 08/16/23 History Nitroglycerin Sl Tabs [Nitrostat] 0.4 mg SUBLINGUAL Q5M PRN 06/19/23 08/16/23 History Acetaminophen [Tylenol 8 Hour] 650 mg PO Q8H PRN 08/16/23 08/16/23 History Carboxymethylcellulose Sodium 1 drop BOTH EYES DAILY 08/16/23 08/16/23 History [Refresh Tears] Cyclobenzaprine [Flexeril] 5 mg PO Q8H PRN 08/16/23 08/16/23 History Famotidine [Pepcid] 10 mg PO DAILY 08/16/23 08/16/23 History Gabapentin [Neurontin] 300 mg PO BID@0700,1900 08/16/23 08/16/23 History HYDROcodone/APAP 7.5-325MG [[place] 1 tab PO QID 08/16/23 08/16/23 History 7.5-325] Menthol [Icy Hot] 1 patch TRANSDERM DAILY 08/16/23 08/16/23 History Allergies Allergy/AdvReac Type Severity Reaction Status Date / Time adhesive tape Allergy Rash/Hives Verified 08/16/23 10:52 cinnamon Allergy Rash/Hives Verified 08/16/23 10:52 Physical Exam Vitals: Vital Signs Temp Pulse Resp BP Pulse Ox FiO2 08/19/23 11:50 30 08/19/23 11:49 62 08/19/23 11:00 59 L 22 134/79 97 08/19/23 10:27 30 08/19/23 10:00 68 23 114/67 95 08/19/23 09:00 70 24 128/71 08/19/23 08:41 70 08/19/23 08:31 69 98 08/19/23 08:00 97.8 F 58 L 20 122/67 08/19/23 07:00 55 L 24 118/70 08/19/23 06:00 69 23 125/73 98 08/19/23 05:00 74 10 L 124/76 08/19/23 04:00 97.8 F 62 29 H 137/74 97 08/19/23 03:00 60 19 129/68 96 08/19/23 02:00 58 L 28 H 123/73 08/19/23 01:00 64 26 H 134/68 97 08/19/23 00:18 71 11 L 134/68 96 08/19/23 00:00 68 27 H 125/75 98 08/18/23 23:00 75 28 H 129/74 97 08/18/23 22:00 72 25 H 117/66 97 08/18/23 21:00 76 12 105/57 98 08/18/23 20:34 72 08/18/23 20:24 72 08/18/23 20:00 97.8 F 71 19 115/66 97 08/18/23 19:00 67 20 116/67 98 08/18/23 18:00 67 16 100 08/18/23 17:30 62 21 121/64 100 08/18/23 17:00 70 15 100 08/18/23 16:30 69 22 100 08/18/23 16:12 70 08/18/23 16:01 71 08/18/23 16:00 97.6 F 65 16 122/69 100 08/18/23 15:30 73 20 98 08/18/23 15:00 70 22 117/82 100 08/18/23 14:30 75 19 100 08/18/23 14:00 71 22 134/70 99 08/18/23 13:30 75 23 98 08/18/23 13:00 84 19 134/77 97 08/18/23 12:30 91 20 98 08/18/23 12:00 98.8 F 93 17 124/73 98 30 Intake and Output 08/18/23 08/19/23 08/19/23 22:59 06:59 14:59 Intake Total 950 980 525 Output Total 1490 475 285 Balance -540 505 240 Intake: IV 375 880 425 Dextrose 5% in Water 1, 225 600 375 000 ml @ 75 mls/hr IV . [id number] [facility] Rx#:[id number] KVO 50 80 50 Potassium Chloride 20 meq 100 200 In Water For Injection 1 100ml.bag @ 50 mls/hr IVPB Q2H [facility] Rx#: [id number] Intake, IV Titration 575 100 100 Amount Cefepime 2 gm In Sodium 100 100 100 Chloride 0.9% 100 ml @ 25 mls/hr IVPB Q8HR [facility] Rx# :[id number] Dextrose 5% in Water 1, 375 000 ml @ 75 mls/hr IV . [id number] [facility] Rx#:[id number] Potassium Chloride 20 meq 100 In Water For Injection 1 100ml.bag @ 50 mls/hr IVPB Q2H YANIRA Rx#: [id number] Output: Urine 1490 475 285 Other: Voiding Method Indwelling Catheter Indwelling Catheter Indwelling Catheter Weight 125.7 kg 125.7 kg Results CBC & Chem 7: 08/19/23 06:42 08/19/23 06:42 Labs: Abnormal Lab Results - Last 24 Hours (Table) 08/18/23 08/18/23 08/18/23 Range/Units 08:08 12:06 16:00 RBC (3.80-5.40) m/uL Hgb (11.4-16.0) gm/dL Hct (34.0-46.0) % MCHC (31.0-37.0) g/dL RDW (11.5-15.5) % Lymphocytes # (1.0-4.8) k/uL ABG pO2 118 H (83-108) mmHg ABG O2 Saturation 99.3 H (94-97) % Sodium (137-145) mmol/L Potassium 3.1 L (3.5-5.1) mmol/L Chloride (98-107) mmol/L BUN (7-17) mg/dL Glucose (74-99) mg/dL POC Glucose (mg/dL) (70-110) mg/dL Vancomycin Trough 30.6 H* ug/mL 08/18/23 08/18/23 08/19/23 Range/Units 18:10 23:28 05:08 RBC (3.80-5.40) m/uL Hgb (11.4-16.0) gm/dL Hct (34.0-46.0) % MCHC (31.0-37.0) g/dL RDW (11.5-15.5) % Lymphocytes # (1.0-4.8) k/uL ABG pO2 (83-108) mmHg ABG O2 Saturation (94-97) % Sodium (137-145) mmol/L Potassium (3.5-5.1) mmol/L Chloride (98-107) mmol/L BUN (7-17) mg/dL Glucose (74-99) mg/dL POC Glucose (mg/dL) 148 H 175 H 153 H (70-110) mg/dL Vancomycin Trough ug/mL 08/19/23 08/19/23 Range/Units 06:42 06:42 RBC 3.49 L (3.80-5.40) m/uL Hgb 9.5 L (11.4-16.0) gm/dL Hct 31.2 L (34.0-46.0) % MCHC 30.5 L (31.0-37.0) g/dL RDW 16.0 H (11.5-15.5) % Lymphocytes # 0.5 L (1.0-4.8) k/uL ABG pO2 (83-108) mmHg ABG O2 Saturation (94-97) % Sodium 148 H (137-145) mmol/L Potassium (3.5-5.1) mmol/L Chloride 121 H (98-107) mmol/L BUN 18 H (7-17) mg/dL Glucose 139 H (74-99) mg/dL POC Glucose (mg/dL) (70-110) mg/dL Vancomycin Trough ug/mL Microbiology - Last 24 Hours (Table) 08/15/23 18:25 Blood Culture - Preliminary Blood 08/15/23 18:10 Blood Culture - Preliminary Blood 08/15/23 20:34 Gram Stain - Final Sputum Sputum Culture - Final Assessment and Plan (1) Pressure injury of left buttock, stage 2 Current Visit: Yes Status: Acute Code(s): L89.322 - PRESSURE ULCER OF LEFT BUTTOCK, STAGE 2 SNOMED Code(s): 63666710579685 (2) Pressure injury of coccygeal region, stage 2 Current Visit: Yes Status: Acute Code(s): L89.152 - PRESSURE ULCER OF SACRAL REGION, STAGE 2 SNOMED Code(s): 77311809207940597 (3) Pressure ulcer of left buttock, stage 3 Current Visit: No Status: Acute Code(s): L89.323 - PRESSURE ULCER OF LEFT BUTTOCK, STAGE 3 SNOMED Code(s): 07130131063025
[2023-08-19 12:32] LABS: Glucose,Whole Blood 170 mg/dL (70-110)
[2023-08-19] MEDS: INSULIN ASPART (NovoLOG) 100 UNIT/ML VIAL SQ SCH (12:38)
--- NOTE | 2023-08-19 14:15 | P.PN ---
Subjective Progress Note Date: 08/19/23 Principal diagnosis: Acute septic shock with acute hypoxic respiratory failure requiring intubation mechanical ventilation This is a 54-year-old female patient, currently intubated on mechanical ventilator. She arrived to the hospital from the residential because of altered mental status and sepsis. The patient was found laying in bed, lethargic, extremely weak. She had a temperature of 102.3. Blood sugar was 190. She was given a bolus of 500 cc. In the ED, the patient was given additional IV fluids a total of 3 L. Events progressed since then. Details are not available and ultimately the patient was intubated and placed on the mechanical ventilator. Based on my review of the records, the patient has received a total of 4 L of IV fluids and she was started also on antibiotics and the patient is currently on a combination of Rocephin, Levaquin and vancomycin. Based on my review of the records, the patient is a residential resident she has advanced multiple sclerosis with stage IV buttocks wounds and previous cultures from those wounds from 06/19/2023 yielded a combination of E. coli, Proteus and Enterococcus faecalis. She also has had previous urine tract infection with Pseudomonas aeruginosa and Enterococcus faecalis. The patient also had staph septicemia with MRSA based on positive blood cultures from 06/19/2023. Repeat blood cultures from 06/21/2023 was negative. She was at a residential and she was eating a combination of cefepime and vancomycin and she completed antibiotic course on 08/24/2015 07/06/2023. At this point in time, the patient is intubated on mechanical ventilator, she is sedated with propofol which is running at 3035 mcg/kg/min IV fluids are in the form of normal saline at rate of 130 cc an hour. The patient is off pressors. Note that she required pressors overnight and the norepinephrine was running as high as 0.08 mcg/kg/min. The patient is currently on the mechanical ventilator assist-control mode, she is at the rate of 16, tidal volume of 450, FiO2 of 50% with a PEEP of 5. The chest x-ray is showing some limited bibasilar pulmonary infiltrates. Otherwise no clear airspace disease or consolidation. Blood gas from this morning shows a pH of 7.3 with a pCO2 of 43 and pO2 of 180. The white cell count is at 24, hemoglobin 12.1 and platelet count is 253. Sodium is at 142, potassium is at 4.7, BUN is 23 with a creatinine of 0.8. LFTs are essentially within normal limits. UA showed 48 WBCs and 20 RBCs. Patient was eval today on 08/17/2023, patient remains in the ICU, intubated and mechanically ventilated. Patient is on assist-control rate of 16 tidal volume 450 FiO2 30% and PEEP of 5 ABG showed a pO2 of 104 pCO2 42 pH of 7.36, hence no ventilator setting changes were made. Patient is still receiving vancomycin and cefepime empirically for her presentation of sepsis and septic shock. This is being addressed by infectious disease on the case. Patient remains on propofol at 45 mcg/kg/min and she is on IV fluid 0.9 normal saline at 130 cc/h receiving nutritional support/enteral feeding vital AF at 10 cc/h. Patient has underlying MS, and she has underlying chronic decubitus ulcers being addressed by infectious disease on the case. Chest x-ray showed minimal prominence of the interstitium/possible interstitial pneumonitis. WBC count is 12.4 hemoglobin 9.8 basic metabolic profile is normal bicarb is 20 BUN is 22, creatinine 0.69 sputum cultures and blood cultures are pending so far nondiagnostic patient is sedated, and I have recommended sedation holiday today, and interruption of sedation with assessment of mental status sometime this morning. Patient was evaluated today on 08/18/2023, patient remains in the ICU, intubated and mechanically ventilated. Patient is on assist-control rate of 16 tidal volume 450 FiO2 30% PEEP of 5 ABG showed a pO2 of 131 pCO2 37 pH of 7.37. X-ray is showing possibly some component of interstitial edema, hence Lasix 40 mg IV push x 1 was given. Patient remains on IV fluid which I changed from 0.9 normal saline to D5W at 75 cc/h remains on propofol at 40 mcg/kg/min she is on cefepime and vancomycin, patient had negative cultures so far. That is negative sputum cultures and negative blood cultures urine culture however is polymicrobial and needs repeat urine culture WBC count today is 10.7 hemoglobin is 9.6. Electrolytes showed hyponatremia with a sodium of 148, normal potassium and normal renal profile. Patient was eval today on 08/19/23, patient remains in the ICU, she was extubated yesterday, she is now on nasal cannula, at 2 L/min, IV fluid running D5W at 75 cc/h, and today I recommended that at night that the patient should be placed on BiPAP 02/24/30% considering her severe MS. And the patient does seem to have shallow breathing. For some reason the patient was placed on Solu-Cortef on admission, and this was discontinued today. Patient is relatively asymptomatic, feeling much better today compared to yesterday, remains on antibiotics for her presumptive sepsis and septic shock most likely related to her multiple stage II and stage III pressure ulcers in the left buttock and in the coccyx, these are being addressed by infectious disease and by wound care staff. All cultures so far have remained negative. WBC count today is 5.8 hemoglobin 9.5 basic metabolic profile is normal except for sodium of 148 patient is receiving D5W address her hypernatremia Objective - Vital Signs Vital signs: Vital Signs Temp 97.8 F 08/19/23 12:00 Pulse 52 L 08/19/23 12:00 Resp 08/19/23 12:00 BP 135/72 08/19/23 12:00 Pulse Ox 98 08/19/23 12:00 FiO2 30 08/19/23 11:50 Intake & Output 08/18/23 08/19/23 08/19/23 18:59 06:59 18:59 Intake Total 2119.702 1420 610 Output Total 4580 765 360 Balance -2460.298 655 250 Weight 125.7 kg 125.7 kg Intake: IV 440 1245 510 Dextrose 5% in Water 1, 825 450 000 ml @ 75 mls/hr IV . [id number] [facility] Rx#:[id number] KVO 50 120 60 Potassium Chloride 20 meq 300 In Water For Injection 1 100ml.bag @ 50 mls/hr IVPB Q2H [facility] Rx#: [id number] Sodium Chloride 0.9% 1, 390 000 ml @ 130 mls/hr IV . [id number] [facility] Rx#:[id number] Intake, IV Titration 1654.702 175 100 Amount Cefepime 2 gm In Sodium 200 100 100 Chloride 0.9% 100 ml @ 25 mls/hr IVPB Q8HR [facility] Rx# :[id number] Dextrose 5% in Water 1, 675 75 000 ml @ 75 mls/hr IV . [id number] [facility] Rx#:[id number] Potassium Chloride 20 meq 100 In Water For Injection 1 100ml.bag @ 50 mls/hr IVPB Q2H [facility] Rx#: [id number] Vancomycin 2,000 mg In 500 Sodium Chloride 0.9% 500 ml 500 ml @ 167 mls/hr IVPB Q12HR [facility] Rx#: [id number] propofoL 1,000 mg In 179.702 Empty Bag 1 bag @ 15 MCG/ KG/MIN 13.268 mls/hr IV . [id number] [facility] Rx#:[id number] Tube Feeding 25 Output: Urine 4580 765 360 Other: Voiding Method Indwelling Catheter Indwelling Catheter Indwelling Catheter - Exam -GENERAL: Reveals a 53-year-old female on 2 L nasal cannula, in no distress. Head: Atraumatic, normocephalic. HEENT: Pupils are round and equally reacting to light. EOMI. No scleral icterus. No conjunctival pallor. Normocephalic, atraumatic. No pharyngeal erythema. No thyromegaly. CARDIOVASCULAR: Distant S1-S2, no S3 gallop, no murmur PULMONARY: Diminished breath sound bilaterally no crackles rhonchi or wheezes ABDOMEN: Obese soft nontender no megaly no rebound MUSCULOSKELETAL: No joint swelling or deformity. EXTREMITIES: The patient has chronic edema lower extremitie. Neurologic: Alert and oriented x 3 no gross focal deficit except the patient is noted to be generally weak Psychiatric: Normal mood, affect and normal mental status examination SKIN: No rashes. no petechiae. - Labs CBC & Chem 7: 08/19/23 06:42 08/19/23 06:42 Labs: Abnormal Lab Results - Last 24 Hours (Table) 08/18/23 08/18/23 08/18/23 Range/Units 16:00 18:10 23:28 RBC (3.80-5.40) m/uL Hgb (11.4-16.0) gm/dL Hct (34.0-46.0) % MCHC (31.0-37.0) g/dL RDW (11.5-15.5) % Lymphocytes # (1.0-4.8) k/uL Sodium (137-145) mmol/L Potassium 3.1 L (3.5-5.1) mmol/L Chloride (98-107) mmol/L BUN (7-17) mg/dL Glucose (74-99) mg/dL POC Glucose (mg/dL) 148 H 175 H (70-110) mg/dL 08/19/23 08/19/23 08/19/23 Range/Units 05:08 06:42 06:42 RBC 3.49 L (3.80-5.40) m/uL Hgb 9.5 L (11.4-16.0) gm/dL Hct 31.2 L (34.0-46.0) % MCHC 30.5 L (31.0-37.0) g/dL RDW 16.0 H (11.5-15.5) % Lymphocytes # 0.5 L (1.0-4.8) k/uL Sodium 148 H (137-145) mmol/L Potassium (3.5-5.1) mmol/L Chloride 121 H (98-107) mmol/L BUN 18 H (7-17) mg/dL Glucose 139 H (74-99) mg/dL POC Glucose (mg/dL) 153 H (70-110) mg/dL 08/19/23 Range/Units 12:31 RBC (3.80-5.40) m/uL Hgb (11.4-16.0) gm/dL Hct (34.0-46.0) % MCHC (31.0-37.0) g/dL RDW (11.5-15.5) % Lymphocytes # (1.0-4.8) k/uL Sodium (137-145) mmol/L Potassium (3.5-5.1) mmol/L Chloride (98-107) mmol/L BUN (7-17) mg/dL Glucose (74-99) mg/dL POC Glucose (mg/dL) 170 H (70-110) mg/dL Microbiology - Last 24 Hours (Table) 08/15/23 18:25 Blood Culture - Preliminary Blood 08/15/23 18:10 Blood Culture - Preliminary Blood Assessment and Plan Assessment: Impression: Sepsis and septic shock is strongly suspected, exact source is unclear but most likely from buttocks and sacral pressure ulcers Acute hypoxic respiratory failure requiring intubation mechanical ventilation, patient was extubated on 08/18/2023 Advanced multiple sclerosis Hypotension secondary to sepsis and septic shock requiring pressors initially patient had previous history of positive Pseudomonas and Enterococcus faecalis infection/type History of neurogenic bladder History of stage IV right buttocks ulcers and positive drainage Acute leukocytosis secondary to above History of hypothyroidism History of dyslipidemia. Recommendation: Continue to monitor in the ICU for now. Continue antibiotics as per ID on the case Continue GI and DVT prophylaxis Continue IV Protonix and Lovenox Continue sliding scale coverage for elevated blood sugar Advance diet as tolerated. Patient should have ADA diet Consider BiPAP at night considering her severe MS. Will continue to follow. Time with Patient: Less than 30
--- NOTE | 2023-08-19 14:23 | P.PN ---
Subjective Progress Note Date: 08/19/23 patient is a 53-year-old lady with past medical history significant for MS who is a resident of a half-way facility brought to the ER for altered mental status. Most of the history has been limited and obtained from EMR. Patient has been complaining of fever and shortness of breath for the last day. Patient was found to be confused. There was concern of patient having pneumonia and patient was immediately brought to the ER Initial lab work done in the ER showed WBC 8.7, hemoglobin 11.5, platelet count 269, sodium 139, potassium 4.3, BUN 23, creatinine 0.93, glucose 171, plasma 4.5, calcium 9, phosphorus 3.4, magnesium 1.6, bilirubin 0.8, AST 31, ALT 24, alk phos 76, TSH 2.4 EKG done in the ER showed heart rate of , no ST segment elevation or depression seen, no T-wave inversions seen. Chest x-ray done in the ER showed left lower lobe pneumonia, cardiomegaly Patient was intubated and was admitted to ICU under internal medicine 08/16. Patient seen and examined. Currently in the ICU. Currently on tube feeding and on propofol. Patient off the pressors. Critical care planning sedation holiday today 08/17. Patient seen and examined. Patient was extubated this morning. Currently on nasal cannula 08/18. Patient seen and examined. Continues with liters of oxygen. Denies any lethargy or weakness. REVIEW OF SYSTEMS: Denies any chest pain. Denies any nausea or vomiting. PHYSICAL EXAMINATION: GENERAL: The patient is alert HEENT: Pupils are round and equally reacting to light. EOMI. No scleral icterus. No conjunctival pallor. Normocephalic, atraumatic. No pharyngeal erythema. No thyromegaly. CARDIOVASCULAR: S1 and S2 present. No murmurs, rubs, or gallops. PULMONARY: Chest is clear to auscultation, no wheezing or crackles. ABDOMEN: Soft, nontender, nondistended, normoactive bowel sounds. No palpable organomegaly. MUSCULOSKELETAL: No joint swelling or deformity. EXTREMITIES: No cyanosis, clubbing, or pedal edema. NEUROLOGICAL: Following commands SKIN: Pressure ulcer seen on left buttocks and coccyx area Assessment and plan Acute hypoxic respiratory failure Bacterial pneumonia Septic shock Lactic acidosis Chronic anemia Severe MS, not in exacerbation Hypothyroid Dyslipidemia Stage II pressure ulcer left buttocks Stage III pressure ulcer left buttocks Stage II pressure ulcer coccyx Monitor vital signs Monitor CBC Monitor CMP Continue telemetry monitoring Aggressive bronchopulmonary hygiene Follow-up on blood cultures Follow-up on urine culture Continue aggressive bronchopulmonary hygiene Continue IV cefepime and vancomycin Continue IV fluids Continue wound care Critical care following ID following Labs and medication were reviewed.. Continue same treatment. Continue with symptomatic treatment. Resume home medication. Monitor labs and vitals. DVT and GI prophylaxis. Further recommendations as per clinical course of the patient Dictation was produced using [employer] dictation software. please excuse any grammatical, word or spelling errors. Objective - Vital Signs Vital signs: Vital Signs Temp 97.8 F 08/19/23 12:00 Pulse 52 L 08/19/23 12:00 Resp 24 08/19/23 12:00 BP 135/72 08/19/23 12:00 Pulse Ox 98 08/19/23 12:00 FiO2 30 08/19/23 11:50 Intake & Output 08/18/23 08/19/23 08/19/23 18:59 06:59 18:59 Intake Total 2119.702 1420 610 Output Total 4580 765 360 Balance -2460.298 655 250 Weight 125.7 kg 125.7 kg Intake: IV 440 1245 510 Dextrose 5% in Water 1, 825 450 000 ml @ 75 mls/hr IV . [id number] [facility] Rx#:[id number] KVO 50 120 60 Potassium Chloride 20 meq 300 In Water For Injection 1 100ml.bag @ 50 mls/hr IVPB Q2H [facility] Rx#: [id number] Sodium Chloride 0.9% 1, 390 000 ml @ 130 mls/hr IV . Q7H42M [facility] Rx#:[id number] Intake, IV Titration 1654.702 175 100 Amount Cefepime 2 gm In Sodium 200 100 100 Chloride 0.9% 100 ml @ 25 mls/hr IVPB Q8HR [facility] Rx# :[id number] Dextrose 5% in Water 1, 675 75 000 ml @ 75 mls/hr IV . [id number] [facility] Rx#:[id number] Potassium Chloride 20 meq 100 In Water For Injection 1 100ml.bag @ 50 mls/hr IVPB Q2H [facility] Rx#: [id number] Vancomycin 2,000 mg In 500 Sodium Chloride 0.9% 500 ml 500 ml @ 167 mls/hr IVPB Q12HR [facility] Rx#: [id number] propofoL 1,000 mg In 179.702 Empty Bag 1 bag @ 15 MCG/ KG/MIN 13.268 mls/hr IV . Q7H33M [facility] Rx#:[id number] Tube Feeding 25 Output: Urine 4580 765 360 Other: Voiding Method Indwelling Catheter Indwelling Catheter Indwelling Catheter - Labs CBC & Chem 7: 08/19/23 06:42 08/19/23 06:42 Labs: Abnormal Lab Results - Last 24 Hours (Table) 08/18/23 08/18/23 08/18/23 Range/Units 16:00 18:10 23:28 RBC (3.80-5.40) m/uL Hgb (11.4-16.0) gm/dL Hct (34.0-46.0) % MCHC (31.0-37.0) g/dL RDW (11.5-15.5) % Lymphocytes # (1.0-4.8) k/uL Sodium (137-145) mmol/L Potassium 3.1 L (3.5-5.1) mmol/L Chloride (98-107) mmol/L BUN (7-17) mg/dL Glucose (74-99) mg/dL POC Glucose (mg/dL) 148 H 175 H (70-110) mg/dL 08/19/23 08/19/23 08/19/23 Range/Units 05:08 06:42 06:42 RBC 3.49 L (3.80-5.40) m/uL Hgb 9.5 L (11.4-16.0) gm/dL Hct 31.2 L (34.0-46.0) % MCHC 30.5 L (31.0-37.0) g/dL RDW 16.0 H (11.5-15.5) % Lymphocytes # 0.5 L (1.0-4.8) k/uL Sodium 148 H (137-145) mmol/L Potassium (3.5-5.1) mmol/L Chloride 121 H (98-107) mmol/L BUN 18 H (7-17) mg/dL Glucose 139 H (74-99) mg/dL POC Glucose (mg/dL) 153 H (70-110) mg/dL 08/19/23 Range/Units 12:31 RBC (3.80-5.40) m/uL Hgb (11.4-16.0) gm/dL Hct (34.0-46.0) % MCHC (31.0-37.0) g/dL RDW (11.5-15.5) % Lymphocytes # (1.0-4.8) k/uL Sodium (137-145) mmol/L Potassium (3.5-5.1) mmol/L Chloride (98-107) mmol/L BUN (7-17) mg/dL Glucose (74-99) mg/dL POC Glucose (mg/dL) 170 H (70-110) mg/dL Microbiology - Last 24 Hours (Table) 08/15/23 18:25 Blood Culture - Preliminary Blood 08/15/23 18:10 Blood Culture - Preliminary Blood
[2023-08-19] MEDS: HYDROPHILIC CREAM 180 GM TUBE TOPICAL SCH (15:45)
--- NOTE | 2023-08-19 16:20 | P.PN ---
Subjective Progress Note Date: 08/19/23 Principal diagnosis: Reason for follow up sepsis/pneumonia/UTI Patient is a 53-year-old female past medical history significant for MS this patient has been [facility]iary [facility] also with a history of hyperlipidemia pneumonia history of chronic bilateral gluteal and sacral pressure ulcer and episodes of osteomyelitis has been brought to the hospital concerning for mental status changes did have worsening respiratory status and up getting intubated chest x-ray with left midlung airspace opacity concerning for pneumonia and urine was positive as well. On today's evaluation that is 08/19/2023,the patient remains to be afebrile, patient is on 2 L nasal cannula supplemental oxygen and denies any shortness of breath no chest pain or cough.Patient denies having any nausea or vomiting, no abdominal pain and no diarrhea has been reported. Patient white count is 5.8 creatinine 0.69 Vanco random was elevated blood and urine culture has been negative so far Objective - Vital Signs Vital signs: Vital Signs Temp 97.8 F 08/19/23 12:00 Pulse 82 08/19/23 15:32 Resp 19 08/19/23 15:00 BP 113/66 08/19/23 15:00 Pulse Ox 98 08/19/23 15:00 FiO2 30 08/19/23 11:50 Intake & Output 08/18/23 08/19/23 08/19/23 18:59 06:59 18:59 Intake Total 2119.702 1420 610 Output Total 4580 765 360 Balance -2460.298 655 250 Weight 125.7 kg 125.7 kg Intake: IV 440 1245 510 Dextrose 5% in Water 1, 825 450 000 ml @ 75 mls/hr IV . [id number] [facility] Rx#:[id number] KVO 50 120 60 Potassium Chloride 20 meq 300 In Water For Injection 1 100ml.bag @ 50 mls/hr IVPB Q2H [facility] Rx#: [id number] Sodium Chloride 0.9% 1, 390 000 ml @ 130 mls/hr IV . Q7H42M [facility] Rx#:[id number] Intake, IV Titration 1654.702 175 100 Amount Cefepime 2 gm In Sodium 200 100 100 Chloride 0.9% 100 ml @ 25 mls/hr IVPB Q8HR [facility] Rx# :[id number] Dextrose 5% in Water 1, 675 75 000 ml @ 75 mls/hr IV . [id number] [facility] Rx#:[id number] Potassium Chloride 20 meq 100 In Water For Injection 1 100ml.bag @ 50 mls/hr IVPB Q2H [facility] Rx#: [id number] Vancomycin 2,000 mg In 500 Sodium Chloride 0.9% 500 ml 500 ml @ 167 mls/hr IVPB Q12HR [facility] Rx#: [id number] propofoL 1,000 mg In 179.702 Empty Bag 1 bag @ 15 MCG/ KG/MIN 13.268 mls/hr IV . Q7H33M [facility] Rx#:[id number] Tube Feeding 25 Output: Urine 4580 765 360 Other: Voiding Method Indwelling Catheter Indwelling Catheter Indwelling Catheter - Exam GENERAL DESCRIPTION: Middle-aged female lying in bed in no distress RESPIRATORY SYSTEM: Unlabored breathing , decreased breath sounds at bases HEART: S1 S2 regular rate and rhythm , ABDOMEN: Soft , no tenderness EXTREMITIES: Diffuse swelling to bilateral lower extremity with some erythema but no open wound - Labs CBC & Chem 7: 08/19/23 06:42 08/19/23 06:42 Labs: Abnormal Lab Results - Last 24 Hours (Table) 08/18/23 08/18/23 08/18/23 Range/Units 16:00 18:10 23:28 RBC (3.80-5.40) m/uL Hgb (11.4-16.0) gm/dL Hct (34.0-46.0) % MCHC (31.0-37.0) g/dL RDW (11.5-15.5) % Lymphocytes # (1.0-4.8) k/uL Sodium (137-145) mmol/L Potassium 3.1 L (3.5-5.1) mmol/L Chloride (98-107) mmol/L BUN (7-17) mg/dL Glucose (74-99) mg/dL POC Glucose (mg/dL) 148 H 175 H (70-110) mg/dL 08/19/23 08/19/23 08/19/23 Range/Units 05:08 06:42 06:42 RBC 3.49 L (3.80-5.40) m/uL Hgb 9.5 L (11.4-16.0) gm/dL Hct 31.2 L (34.0-46.0) % MCHC 30.5 L (31.0-37.0) g/dL RDW 16.0 H (11.5-15.5) % Lymphocytes # 0.5 L (1.0-4.8) k/uL Sodium 148 H (137-145) mmol/L Potassium (3.5-5.1) mmol/L Chloride 121 H (98-107) mmol/L BUN 18 H (7-17) mg/dL Glucose 139 H (74-99) mg/dL POC Glucose (mg/dL) 153 H (70-110) mg/dL 08/19/23 Range/Units 12:31 RBC (3.80-5.40) m/uL Hgb (11.4-16.0) gm/dL Hct (34.0-46.0) % MCHC (31.0-37.0) g/dL RDW (11.5-15.5) % Lymphocytes # (1.0-4.8) k/uL Sodium (137-145) mmol/L Potassium (3.5-5.1) mmol/L Chloride (98-107) mmol/L BUN (7-17) mg/dL Glucose (74-99) mg/dL POC Glucose (mg/dL) 170 H (70-110) mg/dL Microbiology - Last 24 Hours (Table) 08/15/23 18:25 Blood Culture - Preliminary Blood 08/15/23 18:10 Blood Culture - Preliminary Blood Assessment and Plan (1) Pneumonia Current Visit: Yes Status: Acute Code(s): J18.9 - PNEUMONIA, UNSPECIFIED O RGANISM SNOMED Code(s): 254229323 (2) Urinary tract infection Current Visit: Yes Status: Acute Code(s): N39.0 - URINARY TRACT INFECTION, SITE NOT SPECIFIED SNOMED Code(s): 93882404 (3) Leukocytosis Current Visit: No Status: Acute Code(s): D72.829 - ELEVATED WHITE BLOOD CELL COUNT, UNSPECIFIED SNOMED Code(s): 555894946 Plan: 1patient presented to hospital with sepsis in this patient who did have a fever tachycardia elevated white count source likely UTI and question of possible pneumonia as the patient did have respiratory failure requiring intubation and evidence of right-sided infiltrate on chest x-ray we will need to cover for resistant gram-positive as well as gram-negative pathogen 2-patient also have a bilateral gluteal pressure ulcer but no significant cellulitis clinically doubt source of this sepsis, local wound care with Aquacel dressing and keep the area of the pressure 3-patient did have resolution of her fever white count normalized culture negative and resistant pathogen 4patient to continue with the cefepime however we will discontinue vancomycin as no MRSA has been grown and Vanco trough is high, high risk of nephrotoxicity Dictation was produced using [employer] dictation software. please excuse any grammatical, word or spelling errors. Time with Patient: Less than 30
[2023-08-19 17:26] LABS: Glucose,Whole Blood 131 mg/dL (70-110)
[2023-08-19 20:27] LABS: Glucose,Whole Blood 140 mg/dL (70-110)
[2023-08-20 06:02] LABS: ALT 20 U/L (4-34); AST 12 U/L (14-36); African American GFR (CKD) >90 (>60 ml/min/1.73 sqM); Alkaline Phosphatase 50 U/L (38-126); Anion Gap 4 mmol/L; Blood Urea Nitrogen 19 mg/dL (7-17); Calcium 8.5 mg/dL (8.4-10.2); Carbon Dioxide 23 mmol/L (22-30); Chloride 119 mmol/L (98-107); Glucose 112 mg/dL (74-99); Non-African American GFR(CKD) >90 (>60 ml/min/1.73 sqM); Potassium 3.7 mmol/L (3.5-5.1); Sodium 146 mmol/L (137-145); Total Bilirubin 0.4 mg/dL (0.2-1.3); Total Protein 5.3 g/dL (6.3-8.2)
[2023-08-20 06:08] LABS: Vancomycin,Random 18.5 ug/mL
[2023-08-20 06:22] LABS: Basophils % (A) 0 %; Eosinophils # (A) 0.1 k/uL (0-0.7); Eosinophils % (A) 2 %; HCT 28.1 % (34.0-46.0); HGB 9.2 gm/dL (11.4-16.0); Hypochromasia Slight; Lymphocytes # (A) 0.7 k/uL (1.0-4.8); Lymphocytes % (A) 15 %; MCH 28.4 pg (25.0-35.0); MCHC 32.7 g/dL (31.0-37.0); Mean Platelet Volume 9.1; Monocytes # (A) 0.1 k/uL (0-1.0); Monocytes % (A) 3 %; Neutrophils # (A) 3.7 k/uL (1.3-7.7); Neutrophils % (A) 76 %; Platelet Count 171 k/uL (150-450); RBC 3.24 m/uL (3.80-5.40); RDW 15.9 % (11.5-15.5); WBC 4.8 k/uL (3.8-10.6)
[2023-08-20] MEDS ORDERED: Potassium Replacement Protocol 1 EACH MISC MISCELLANE PRN (06:49)
--- NOTE | 2023-08-20 08:09 | XR ---
EXAMINATION TYPE: XR chest 1V portable DATE OF EXAM: 08/20/2023 COMPARISON: 08/18/2023 HISTORY: Tube placement TECHNIQUE: Single frontal view of the chest is obtained. FINDINGS: ET and NG tubes have been removed. There is a interstitial pattern with subsegmental basil ar consolidation. Heart size stable. Osseous structures unchanged. Tiny pleural effusions excluded. L imited inspiration. IMPRESSION: Stable diffuse bilateral airspace disease correlate for pneumonia or CHF.
[2023-08-20] MEDS: POTASSIUM BICARBONATE/CIT AC 20 MEQ TABLET.EFF NG-TUBE SCH (08:36)
[2023-08-20 11:30] LABS: Glucose,Whole Blood 117 mg/dL (70-110)
[2023-08-20] MEDS: FUROSEMIDE 10 MG/ML 2 ML VIAL IV ONE (12:16)
--- NOTE | 2023-08-20 13:14 | P.PN ---
Subjective Progress Note Date: 08/20/23 patient is a 53-year-old lady with past medical history significant for MS who is a resident of a longterm facility brought to the ER for altered mental status. Most of the history has been limited and obtained from EMR. Patient has been complaining of fever and shortness of breath for the last day. Patient was found to be confused. There was concern of patient having pneumonia and patient was immediately brought to the ER Initial lab work done in the ER showed WBC 8.7, hemoglobin 11.5, platelet count 269, sodium 139, potassium 4.3, BUN 23, creatinine 0.93, glucose 171, plasma 4.5, calcium 9, phosphorus 3.4, magnesium 1.6, bilirubin 0.8, AST 31, ALT 24, alk phos 76, TSH 2.4 EKG done in the ER showed heart rate of , no ST segment elevation or depression seen, no T-wave inversions seen. Chest x-ray done in the ER showed left lower lobe pneumonia, cardiomegaly Patient was intubated and was admitted to ICU under internal medicine 08/16. Patient seen and examined. Currently in the ICU. Currently on tube feeding and on propofol. Patient off the pressors. Critical care planning sedation holiday today 08/17. Patient seen and examined. Patient was extubated this morning. Currently on nasal cannula 08/18. Patient seen and examined. Continues with liters of oxygen. Denies any lethargy or weakness. 08/19. Patient seen and examined.Vital signs on this morning showed temperature 97.8, heart rate 74, blood pressure 112/60, pulse ox 97% 2 L. Blood work done showed WBC 4.8, hemoglobin 9.2, sodium 146, potassium 3.7,. Continues to feel better. Was sitting up in the chair REVIEW OF SYSTEMS: Denies any chest pain. Denies any nausea or vomiting. PHYSICAL EXAMINATION: GENERAL: The patient is alert, chronically ill looking HEENT: Pupils are round and equally reacting to light. EOMI. No scleral icterus. No conjunctival pallor. Normocephalic, atraumatic. No pharyngeal erythema. No thyromegaly. CARDIOVASCULAR: S1 and S2 present. No murmurs, rubs, or gallops. PULMONARY: Chest is clear to auscultation, no wheezing or crackles. ABDOMEN: Soft, nontender, nondistended, normoactive bowel sounds. No palpable organomegaly. MUSCULOSKELETAL: No joint swelling or deformity. EXTREMITIES: No cyanosis, clubbing, or pedal edema. NEUROLOGICAL: Following commands SKIN: Pressure ulcer seen on left buttocks and coccyx area Assessment and plan Acute hypoxic respiratory failure Bacterial pneumonia Septic shock Lactic acidosis Chronic anemia Severe MS, not in exacerbation Hypothyroid Dyslipidemia Stage II pressure ulcer left buttocks Stage III pressure ulcer left buttocks Stage II pressure ulcer coccyx Monitor vital signs Monitor CBC Monitor CMP Continue telemetry monitoring Aggressive bronchopulmonary hygiene Follow-up on blood cultures Follow-up on urine culture Continue aggressive bronchopulmonary hygiene Continue IV cefepime, vancomycin was discontinued Continue IV fluids Continue wound care Critical care following ID following Labs and medication were reviewed.. Continue same treatment. Continue with symptomatic treatment. Resume home medication. Monitor labs and vitals. DVT and GI prophylaxis. Further recommendations as per clinical course of the patient Dictation was produced using [employer] dictation software. please excuse any grammatical, word or spelling errors. Objective - Vital Signs Vital signs: Vital Signs Temp 97.8 F 08/20/23 08:00 Pulse 80 08/20/23 08:45 Resp 24 08/20/23 08:00 BP 112/60 08/20/23 08:00 Pulse Ox 100 08/20/23 08:37 FiO2 30 08/19/23 23:09 Intake & Output 08/19/23 08/20/23 08/20/23 18:59 06:59 18:59 Intake Total 1120 950 85 Output Total 670 550 30 Balance 450 400 55 Weight 125.7 kg 125.8 kg Intake: IV 1020 850 85 Dextrose 5% in Water 1, 900 750 75 000 ml @ 75 mls/hr IV . [id number] [facility] Rx#:[id number] KVO 120 100 10 Intake, IV Titration 100 100 Amount Cefepime 2 gm In Sodium 100 100 Chloride 0.9% 100 ml @ 25 mls/hr IVPB Q8HR [facility] Rx# :[id number] Output: Urine 670 550 30 Other: Voiding Method Indwelling Catheter Indwelling Catheter # Bowel Movements 2 1 - Labs CBC & Chem 7: 08/20/23 05:17 08/20/23 05:17 Labs: Abnormal Lab Results - Last 24 Hours (Table) 08/19/23 08/19/23 08/19/23 Range/Units 12:31 17:25 20:26 RBC (3.80-5.40) m/uL Hgb (11.4-16.0) gm/dL Hct (34.0-46.0) % RDW (11.5-15.5) % Lymphocytes # (1.0-4.8) k/uL Sodium (137-145) mmol/L Chloride (98-107) mmol/L BUN (7-17) mg/dL Glucose (74-99) mg/dL POC Glucose (mg/dL) 170 H 131 H 140 H (70-110) mg/dL AST (14-36) U/L Total Protein (6.3-8.2) g/dL Albumin (3.5-5.0) g/dL 08/20/23 08/20/23 Range/Units 05:17 05:17 RBC 3.24 L (3.80-5.40) m/uL Hgb 9.2 L (11.4-16.0) gm/dL Hct 28.1 L (34.0-46.0) % RDW 15.9 H (11.5-15.5) % Lymphocytes # 0.7 L (1.0-4.8) k/uL Sodium 146 H (137-145) mmol/L Chloride 119 H (98-107) mmol/L BUN 19 H (7-17) mg/dL Glucose 112 H (74-99) mg/dL POC Glucose (mg/dL) (70-110) mg/dL AST 12 L (14-36) U/L Total Protein 5.3 L (6.3-8.2) g/dL Albumin 3.0 L (3.5-5.0) g/dL
--- NOTE | 2023-08-20 15:17 | P.PN ---
Subjective Progress Note Date: 08/20/23 Principal diagnosis: Acute septic shock with acute hypoxic respiratory failure requiring intubation mechanical ventilation This is a 54-year-old female patient, currently intubated on mechanical ventilator. [facility] because of altered mental status and sepsis. The patient was found laying in bed, lethargic, extremely weak. She had a temperature of 102.3. Blood sugar was 190. She was given a bolus of 500 cc. In the ED, the patient was given additional IV fluids a total of 3 L. Events progressed since then. Details are not available and ultimately the patient was intubated and placed on the mechanical ventilator. Based on my review of the records, the patient has received a total of 4 L of IV fluids and she was started also on antibiotics and the patient is currently on a combination of Rocephin, Levaquin and vancomycin. Based on my review of the records, the [facility] is a [facility] resident she has advanced multiple sclerosis with stage IV buttocks wounds and previous cultures from those wounds from 06/19/2023 yielded a combination of E. coli, Proteus and Enterococcus faecalis. She also has had previous urine tract infection with Pseudomonas aeruginosa and Enterococcus faecalis. The patient also had staph septicemia with MRSA based on positive blood cultures from 06/19/2023. Repeat blood cultures from 06/21/2023 was negative. [facility] a [facility] and she was eating a combination of cefepime and vancomycin and she completed antibiotic course on 08/24/2015 07/06/2023. At this point in time, the patient is intubated on mechanical ventilator, she is sedated with propofol which is running at 3035 mcg/kg/min IV fluids are in the form of normal saline at rate of 130 cc an hour. The patient is off pressors. Note that she required pressors overnight and the norepinephrine was running as high as 0.08 mcg/kg/min. The patient is currently on the mechanical ventilator assist-control mode, she is at the rate of 16, tidal volume of 450, FiO2 of 50% with a PEEP of 5. The chest x-ray is showing some limited bibasilar pulmonary infiltrates. Otherwise no clear airspace disease or consolidation. Blood gas from this morning shows a pH of 7.3 with a pCO2 of 43 and pO2 of 180. The white cell count is at 24, hemoglobin 12.1 and platelet count is 253. Sodium is at 142, potassium is at 4.7, BUN is 23 with a creatinine of 0.8. LFTs are essentially within normal limits. UA showed 48 WBCs and 20 RBCs. Patient was eval today on 08/17/2023, patient remains in the ICU, intubated and mechanically ventilated. Patient is on assist-control rate of 16 tidal volume 450 FiO2 30% and PEEP of 5 ABG showed a pO2 of 104 pCO2 42 pH of 7.36, hence no ventilator setting changes were made. Patient is still receiving vancomycin and cefepime empirically for her presentation of sepsis and septic shock. This is being addressed by infectious disease on the case. Patient remains on propofol at 45 mcg/kg/min and she is on IV fluid 0.9 normal saline at 130 cc/h receiving nutritional support/enteral feeding vital AF at 10 cc/h. Patient has underlying MS, and she has underlying chronic decubitus ulcers being addressed by infectious disease on the case. Chest x-ray showed minimal prominence of the interstitium/possible interstitial pneumonitis. WBC count is 12.4 hemoglobin 9.8 basic metabolic profile is normal bicarb is 20 BUN is 22, creatinine 0.69 sputum cultures and blood cultures are pending so far nondiagnostic patient is sedated, and I have recommended sedation holiday today, and interruption of sedation with assessment of mental status sometime this morning. Patient was evaluated today on 08/18/2023, patient remains in the ICU, intubated and mechanically ventilated. Patient is on assist-control rate of 16 tidal volume 450 FiO2 30% PEEP of 5 ABG showed a pO2 of 131 pCO2 37 pH of 7.37. X-ray is showing possibly some component of interstitial edema, hence Lasix 40 mg IV push x 1 was given. Patient remains on IV fluid which I changed from 0.9 normal saline to D5W at 75 cc/h remains on propofol at 40 mcg/kg/min she is on cefepime and vancomycin, patient had negative cultures so far. That is negative sputum cultures and negative blood cultures urine culture however is polymicrobial and needs repeat urine culture WBC count today is 10.7 hemoglobin is 9.6. Electrolytes showed hyponatremia with a sodium of 148, normal potassium and normal renal profile. Patient was eval today on 08/19/23, patient remains in the ICU, she was extubated yesterday, she is now on nasal cannula, at 2 L/min, IV fluid running D5W at 75 cc/h, and today I recommended that at night that the patient should be placed on BiPAP 02/24/30 considering her severe MS. And the patient does seem to have shallow breathing. For some reason the patient was placed on Solu-Cortef on admission, and this was discontinued today. Patient is relatively asymptomatic, feeling much better today compared to yesterday, remains on antibiotics for her presumptive sepsis and septic shock most likely related to her multiple stage II and stage III pressure ulcers in the left buttock and in the coccyx, these are being addressed by infectious disease and by wound care staff. All cultures so far have remained negative. WBC count today is 5.8 hemoglobin 9.5 basic metabolic profile is normal except for sodium of 148 patient is receiving D5W address her hypernatremia Patient was reevaluated today on 08/20/2023, patient remains in the ICU, she tolerated the extubation well over the last 2 days. Patient is placed on BiPAP at night because of her MS, overall the patient seems to be very comfortable, and she is not in any distress. Presently on 2 L nasal cannula, and at night she is on BiPAP. Chest x-ray is showing possibly some increased interstitial markings, hence I recommended a trial of Lasix 20 mg IV push x 1. WBC count is 4.8 hemoglobin is 9.2 sodium is down to 146 from 148 yesterday, renal profile is normal electrolytes are normal Objective - Vital Signs Vital signs: Vital Signs Temp 97.8 F 08/20/23 08:00 Pulse 86 08/20/23 14:00 Resp 25 H 08/20/23 14:00 BP 129/65 08/20/23 12:00 Pulse Ox 99 08/20/23 14:00 FiO2 30 08/19/23 23:09 Intake & Output 08/19/23 08/20/23 08/20/23 18:59 06:59 18:59 Intake Total 1120 950 370 Output Total 670 550 120 Balance 450 400 250 Weight 125.7 kg 125.8 kg Intake: IV 1020 850 370 Cefepime 2 gm In Sodium 50 Chloride 0.9% 100 ml @ 25 mls/hr IVPB Q12HR [facility] Rx #:[id number] Dextrose 5% in Water 1, 900 750 300 000 ml @ 75 mls/hr IV . [id number] [facility] Rx#:[id number] KVO 120 100 20 Intake, IV Titration 100 100 Amount Cefepime 2 gm In Sodium 100 100 Chloride 0.9% 100 ml @ 25 mls/hr IVPB Q8HR [facility] Rx# :[id number] Output: Urine 670 550 120 Other: Voiding Method Indwelling Catheter Indwelling Catheter Indwelling Catheter # Bowel Movements 2 1 - Exam -GENERAL: Reveals a 53-year-old female on 2 L nasal cannula, in no distress. Head: Atraumatic, normocephalic. HEENT: Pupils are round and equally reacting to light. EOMI. No scleral icterus. No conjunctival pallor. Normocephalic, atraumatic. No pharyngeal erythema. No thyromegaly. CARDIOVASCULAR: Distant S1-S2, no S3 gallop, no murmur PULMONARY: Diminished breath sound bilaterally no crackles rhonchi or wheezes ABDOMEN: Obese soft nontender no megaly no rebound MUSCULOSKELETAL: No joint swelling or deformity. EXTREMITIES: The patient has chronic edema lower extremitie. Neurologic: Alert and oriented x 3 no gross focal deficit except the patient is noted to be generally weak Psychiatric: Normal mood, affect and normal mental status examination SKIN: No rashes. no petechiae. - Labs CBC & Chem 7: 08/20/23 05:17 08/20/23 05:17 Labs: Abnormal Lab Results - Last 24 Hours (Table) 08/19/23 08/19/23 08/20/23 Range/Units 17:25 20:26 05:17 RBC (3.80-5.40) m/uL Hgb (11.4-16.0) gm/dL Hct (34.0-46.0) % RDW (11.5-15.5) % Lymphocytes # (1.0-4.8) k/uL Sodium 146 H (137-145) mmol/L Chloride 119 H (98-107) mmol/L BUN 19 H (7-17) mg/dL Glucose 112 H (74-99) mg/dL POC Glucose (mg/dL) 131 H 140 H (70-110) mg/dL AST 12 L (14-36) U/L Total Protein 5.3 L (6.3-8.2) g/dL Albumin 3.0 L (3.5-5.0) g/dL 08/20/23 08/20/23 Range/Units 05:17 11:28 RBC 3.24 L (3.80-5.40) m/uL Hgb 9.2 L (11.4-16.0) gm/dL Hct 28.1 L (34.0-46.0) % RDW 15.9 H (11.5-15.5) % Lymphocytes # 0.7 L (1.0-4.8) k/uL Sodium (137-145) mmol/L Chloride (98-107) mmol/L BUN (7-17) mg/dL Glucose (74-99) mg/dL POC Glucose (mg/dL) 117 H (70-110) mg/dL AST (14-36) U/L Total Protein (6.3-8.2) g/dL Albumin (3.5-5.0) g/dL Microbiology - Last 24 Hours (Table) 08/15/23 18:10 Urine Culture - Final Urine,Voided Assessment and Plan Assessment: Impression: Sepsis and septic shock is strongly suspected, exact source is unclear but most likely from buttocks and sacral pressure ulcers Acute hypoxic respiratory failure requiring intubation mechanical ventilation, patient was extubated on 08/18/2023 Advanced multiple sclerosis Hypotension secondary to sepsis and septic shock requiring pressors initially patient had previous history of positive Pseudomonas and Enterococcus faecalis infection/type History of neurogenic bladder History of stage IV right buttocks ulcers and positive drainage Acute leukocytosis secondary to above History of hypothyroidism History of dyslipidemia. Recommendation: Could consider transferring the patient out to medical floor. Continue antibiotics as per ID on the case Continue GI and DVT prophylaxis Continue IV Protonix and Lovenox Continue sliding scale coverage for elevated blood sugar Suggest gentle diuresis Advance diet Continue BiPAP at night for her severe MS Overall prognosis in the longer run remains poor and guarded Will continue to follow. Time with Patient: Less than 30
--- NOTE | 2023-08-20 15:22 | P.PN ---
Subjective Progress Note Date: 08/20/23 Principal diagnosis: Reason for follow up sepsis/pneumonia/UTI Patient is a 53-year-old female past medical history significant for MS this patient has been bedbound long-term resident also with a history of hyperlipidemia pneumonia history of chronic bilateral gluteal and sacral pressure ulcer and episodes of osteomyelitis has been brought to the hospital concerning for mental status changes did have worsening respiratory status and up getting intubated chest x-ray with left midlung airspace opacity concerning for pneumonia and urine was positive as well. On today's evaluation that is 08/20/2023, the patient continues to be afebrile, the patient is on 2 L current oxygen and breathing comfortably, the Pt denies having any chest pain or cough, the patient denies having any abdominal pain no vomiting or any diarrhea has been reported by the nursing staff. Patient white count is 4.8, creatinine 0.66 culture has been negative so far vancomycin random is down to 18.5 Objective - Vital Signs Vital signs: Vital Signs Temp 97.8 F 08/20/23 08:00 Pulse 80 08/20/23 11:39 Resp 22 08/20/23 10:00 BP 113/61 08/20/23 10:00 Pulse Ox 97 08/20/23 09:00 FiO2 30 08/19/23 23:09 Intake & Output 08/19/23 08/20/23 08/20/23 18:59 06:59 18:59 Intake Total 1120 950 370 Output Total 670 550 120 Balance 450 400 250 Weight 125.7 kg 125.8 kg Intake: IV 1020 850 370 Cefepime 2 gm In Sodium 50 Chloride 0.9% 100 ml @ 25 mls/hr IVPB Q12HR [facility] Rx #:[id number] Dextrose 5% in Water 1, 900 750 300 000 ml @ 75 mls/hr IV . [id number] [facility] Rx#:[id number] KVO 120 100 20 Intake, IV Titration 100 100 Amount Cefepime 2 gm In Sodium 100 100 Chloride 0.9% 100 ml @ 25 mls/hr IVPB Q8HR [facility] Rx# :[id number] Output: Urine 670 550 120 Other: Voiding Method Indwelling Catheter Indwelling Catheter Indwelling Catheter # Bowel Movements 2 1 - Exam GENERAL DESCRIPTION: Middle-aged female lying in bed in no distress RESPIRATORY SYSTEM: Unlabored breathing , decreased breath sounds at bases HEART: S1 S2 regular rate and rhythm , ABDOMEN: Soft , no tenderness EXTREMITIES: Diffuse swelling to bilateral lower extremity with some erythema but no open wound - Labs CBC & Chem 7: 08/20/23 05:17 08/20/23 05:17 Labs: Abnormal Lab Results - Last 24 Hours (Table) 08/19/23 08/19/23 08/20/23 Range/Units 17:25 20:26 05:17 RBC (3.80-5.40) m/uL Hgb (11.4-16.0) gm/dL Hct (34.0-46.0) % RDW (11.5-15.5) % Lymphocytes # (1.0-4.8) k/uL Sodium 146 H (137-145) mmol/L Chloride 119 H (98-107) mmol/L BUN 19 H (7-17) mg/dL Glucose 112 H (74-99) mg/dL POC Glucose (mg/dL) 131 H 140 H (70-110) mg/dL AST 12 L (14-36) U/L Total Protein 5.3 L (6.3-8.2) g/dL Albumin 3.0 L (3.5-5.0) g/dL 08/20/23 08/20/23 Range/Units 05:17 11:28 RBC 3.24 L (3.80-5.40) m/uL Hgb 9.2 L (11.4-16.0) gm/dL Hct 28.1 L (34.0-46.0) % RDW 15.9 H (11.5-15.5) % Lymphocytes # 0.7 L (1.0-4.8) k/uL Sodium (137-145) mmol/L Chloride (98-107) mmol/L BUN (7-17) mg/dL Glucose (74-99) mg/dL POC Glucose (mg/dL) 117 H (70-110) mg/dL AST (14-36) U/L Total Protein (6.3-8.2) g/dL Albumin (3.5-5.0) g/dL Microbiology - Last 24 Hours (Table) 08/15/23 18:10 Urine Culture - Final Urine,Voided Assessment and Plan (1) Pneumonia Current Visit: Yes Status: Acute Code(s): J18.9 - PNEUMONIA, UNSPECIFIED ORGANISM SNOMED Code(s): 244763833 (2) Urinary tract infection Current Visit: Yes Status: Acute Code(s): N39.0 - URINARY TRACT INFECTION, SITE NOT SPECIFIED SNOMED Code(s): 84845226 (3) Leukocytosis Current Visit: No Status: Acute Code(s): D72.829 - ELEVATED WHITE BLOOD CELL COUNT, UNSPECIFIED SNOMED Code(s): 085880528 Plan: 1patient presented to hospital with sepsis in this patient who did have a fever tachycardia elevated white count source likely UTI and question of possible pneumonia as the patient did have respiratory failure requiring intubation and evidence of right-sided infiltrate on chest x-ray we will need to cover for resistant gram-positive as well as gram-negative pathogen 2-patient also have a bilateral gluteal pressure ulcer but no significant cellulitis clinically doubt source of this sepsis, local wound care with Aquacel dressing and keep the area of the pressure 3-patient did have resolution of her fever white count normalized culture negative and resistant pathogen 4patient to continue with the cefepime and monitor clinical course closely Dictation was produced using [employer] dictation software. please excuse any grammatical, word or spelling errors. Time with Patient: Less than 30
[2023-08-20 16:26] LABS: Glucose,Whole Blood 142 mg/dL (70-110)
[2023-08-20 20:28] LABS: Glucose,Whole Blood 136 mg/dL (70-110)
[2023-08-21] MEDS: HYDROcodone/APAP 7.5-325MG 1 EACH TAB PO ONE (04:18)
[2023-08-21 05:32] LABS: Glucose,Whole Blood 113 mg/dL (70-110)
[2023-08-21] MEDS: FUROSEMIDE 10 MG/ML 2 ML VIAL IV SCH (09:26)
[2023-08-21 11:33] LABS: Glucose,Whole Blood 119 mg/dL (70-110)
--- NOTE | 2023-08-21 12:06 | P.PN ---
Subjective Progress Note Date: 08/21/23 This is a 54-year-old female patient, currently intubated on mechanical ventilator. [facility] and sepsis. The patient was found laying in bed, lethargic, extremely weak. She had a temperature of 102.3. Blood sugar was 190. She was given a bolus of 500 cc. In the ED, the patient was given additional IV fluids a total of 3 L. Events progressed since then. Details are not available and ultimately the patient was intubated and placed on the mechanical ventilator. Based on my review of the records, the patient has received a total of 4 L of IV fluids and she was started also on antibiotics and the patient is currently on a combination of Rocephin, Levaquin and vancomycin. Based on my review of the records, [facility] she has advanced multiple sclerosis with stage IV buttocks wounds and previous cultures from those wounds from 06/19/2023 yielded a combination of E. coli, Proteus and Enterococcus faecalis. She also has had previous urine tract infection with Pseudomonas aeruginosa and Enterococcus faecalis. The patient also had staph septicemia with MRSA based on positive blood cultures from 06/19/2023. Repeat blood cultures from 06/21/2023 was negative. [facility] and she was eating a combination of cefepime and vancomycin and she completed antibiotic course on 08/24/2015 07/06/2023. At this point in time, the patient is intubated on mechanical ventilator, she is sedated with propofol which is running at 3035 mcg/kg/min IV fluids are in the form of normal saline at rate of 130 cc an hour. The patient is off pressors. Note that she required pressors overnight and the norepinephrine was running as high as 0.08 mcg/kg/min. The patient is currently on the mechanical ventilator assist-control mode, she is at the rate of 16, tidal volume of 450, FiO2 of 50% with a PEEP of 5. The chest x-ray is showing some limited bibasilar pulmonary infiltrates. Otherwise no clear airspace disease or consolidation. Blood gas from this morning shows a pH of 7.3 with a pCO2 of 43 and pO2 of 180. The white cell count is at 24, hemoglobin 12.1 and platelet count is 253. Sodium is at 142, potassium is at 4.7, BUN is 23 with a creatinine of 0.8. LFTs are essentially within normal limits. UA showed 48 WBCs and 20 RBCs. Patient was eval today on 08/17/2023, patient remains in the ICU, intubated and mechanically ventilated. Patient is on assist-control rate of 16 tidal volume 450 FiO2 30% and PEEP of 5 ABG showed a pO2 of 104 pCO2 42 pH of 7.36, hence no ventilator setting changes were made. Patient is still receiving vancomycin and cefepime empirically for her presentation of sepsis and septic shock. This is being addressed by infectious disease on the case. Patient remains on propofol at 45 mcg/kg/min and she is on IV fluid 0.9 normal saline at 130 cc/h receiving nutritional support/enteral feeding vital AF at 10 cc/h. Patient has underlying MS, and she has underlying chronic decubitus ulcers being addressed by infectious disease on the case. Chest x-ray showed minimal prominence of the interstitium/possible interstitial pneumonitis. WBC count is 12.4 hemoglobin 9.8 basic metabolic profile is normal bicarb is 20 BUN is 22, creatinine 0.69 sputum cultures and blood cultures are pending so far nondiagnostic patient is sedated, and I have recommended sedation holiday today, and interruption of sedation with assessment of mental status sometime this morning. Patient was evaluated today on 08/18/2023, patient remains in the ICU, intubated and mechanically ventilated. Patient is on assist-control rate of 16 tidal volume 450 FiO2 30% PEEP of 5 ABG showed a pO2 of 131 pCO2 37 pH of 7.37. X-ray is showing possibly some component of interstitial edema, hence Lasix 40 mg IV push x 1 was given. Patient remains on IV fluid which I changed from 0.9 normal saline to D5W at 75 cc/h remains on propofol at 40 mcg/kg/min she is on cefepime and vancomycin, patient had negative cultures so far. That is negative sputum cultures and negative blood cultures urine culture however is polymicrobial and needs repeat urine culture WBC count today is 10.7 hemoglobin is 9.6. Electrolytes showed hyponatremia with a sodium of 148, normal potassium and normal renal profile. Patient was eval today on 08/19/23, patient remains in the ICU, she was extubated yesterday, she is now on nasal cannula, at 2 L/min, IV fluid running D5W at 75 cc/h, and today I recommended that at night that the patient should be placed on BiPAP 02/24/30% considering her severe MS. And the patient does seem to have shallow breathing. For some reason the patient was placed on Solu-Cortef on admission, and this was discontinued today. Patient is relatively asymptomatic, feeling much better today compared to yesterday, remains on antibiotics for her presumptive sepsis and septic shock most likely related to her multiple stage II and stage III pressure ulcers in the left buttock and in the coccyx, these are being addressed by infectious disease and by wound care staff. All cultures so far have remained negative. WBC count today is 5.8 hemoglobin 9.5 basic metab olic profile is normal except for sodium of 148 patient is receiving D5W address her hypernatremia Patient was reevaluated today on 08/20/2023, patient remains in the ICU, she tolerated the extubation well over the last 2 days. Patient is placed on BiPAP at night because of her MS, overall the patient seems to be very comfortable, and she is not in any distress. Presently on 2 L nasal cannula, and at night she is on BiPAP. Chest x-ray is showing possibly some increased interstitial markings, hence I recommended a trial of Lasix 20 mg IV push x 1. WBC count is 4.8 hemoglobin is 9.2 sodium is down to 146 from 148 yesterday, renal profile is normal electrolytes are normal The patient is seen today August 21, 2023 in follow-up on the regular medical floor. She was transferred out of the intensive care unit late yesterday. She is currently sitting up in bed. Awake and alert in no acute distress. Denies any worsening shortness of breath, cough or congestion. She is maintaining good O2 saturations in the high 90s on 2 L/min per nasal cannula. She is afebrile. Hemodynamically stable. Blood cultures revealed no growth. Urine culture revealed no growth. Sputum culture revealed no growth. Glucose 119. She is continued on cefepime. Remains on bronchodilators. Lovenox for DVT prophylaxis. She is initiated on Lasix 20 mg IV every 12 hours today. Currently in a -135 mL balance. Objective - Vital Signs Vital signs: Vital Signs Temp 98.2 F 08/21/23 07:06 Pulse 88 08/21/23 09:40 Resp 20 08/21/23 07:06 BP 137/80 08/21/23 07:06 Pulse Ox 99 08/21/23 07:06 FiO2 30 08/19/23 23:09 Intake & Output 08/20/23 08/21/23 08/21/23 18:59 06:59 18:59 Intake Total 370 Output Total 180 325 Balance 190 -325 Intake: IV 370 Cefepime 2 gm In Sodium 50 Chloride 0.9% 100 ml @ 25 mls/hr IVPB Q12HR [facility] Rx #:[id number] Dextrose 5% in Water 1, 300 000 ml @ 75 mls/hr IV . [id number] [facility] Rx#:[id number] KVO 20 Output: Urine 180 325 Other: Voiding Method Indwelling Catheter Indwelling Catheter Indwelling Catheter # Voids 3 - Exam GENERAL EXAM: Alert, pleasant 53-year-old female, on 2 L nasal cannula, comfortable in no apparent distress. HEAD: Normocephalic. EYES: Normal reaction of pupils, equal size. NOSE: Clear with pink turbinates. THROAT: No erythema or exudates. NECK: No masses, no JVD. CHEST: No chest wall deformity. LUNGS: Equal air entry with few crackles in the posterior bases. CVS: S1 and S2 normal with no audible murmur, regular rhythm. ABDOMEN: No hepatosplenomegaly, normal bowel sounds, no guarding or rigidity. SPINE: No scoliosis or deformity SKIN: Bilateral gluteal and sacral pressure ulcers. CENTRAL NERVOUS SYSTEM: No focal deficits, tone is normal in all 4 extremities. EXTREMITIES: There is no peripheral edema. No clubbing, no cyanosis. Peripheral pulses are intact. - Labs CBC & Chem 7: 08/20/23 05:17 08/20/23 05:17 Labs: Abnormal Lab Results - Last 24 Hours (Table) 08/20/23 08/20/23 08/21/23 Range/Units 16:24 20:26 05:30 POC Glucose (mg/dL) 142 H 136 H 113 H (70-110) mg/dL 08/21/23 Range/Units 11:32 POC Glucose (mg/dL) 119 H (70-110) mg/dL Microbiology - Last 24 Hours (Table) 08/15/23 18:25 Blood Culture - Final Blood 08/15/23 18:10 Blood Culture - Final Blood 08/15/23 18:10 Urine Culture - Final Urine,Voided Assessment and Plan Assessment: Sepsis and septic shock is strongly suspected, exact source is unclear but most likely from buttocks and sacral pressure ulcers Acute hypoxic respiratory failure requiring intubation mechanical ventilation, patient was extubated on 08/18/2023, recovered and on 2 L nasal cannula Advanced multiple sclerosis Hypotension secondary to sepsis and septic shock requiring pressors initially patient had previous history of positive Pseudomonas and Enterococcus faecalis infection/type History of neurogenic bladder History of stage IV right buttocks ulcers and positive drainage Acute leukocytosis secondary to above History of hypothyroidism History of dyslipidemia Plan: The patient was seen and evaluated Labs and medications reviewed Currently on 2 L nasal cannula Titrate the FiO2 as tolerated Remains on bronchodilators and cefepime. Lovenox for DVT prophylaxis Add Lasix 20 mg IV every 12 hours Follow-up chest x-ray and labs in a.m. We will continue to follow I have personally seen and examined the patient, performed the documentation and the assessment and plan as written. Number of minutes spent on the visit: 10.
--- NOTE | 2023-08-21 13:32 | P.PN ---
Subjective Progress Note Date: 08/21/23 patient is a 53-year-old lady with past medical history significant for MS who is a resident of a assisted facility brought to the ER for altered mental status. Most of the history has been limited and obtained from EMR. Patient has been complaining of fever and shortness of breath for the last day. Patient was found to be confused. There was concern of patient having pneumonia and patient was immediately brought to the ER Initial lab work done in the ER showed WBC 8.7, hemoglobin 11.5, platelet count 269, sodium 139, potassium 4.3, BUN 23, creatinine 0.93, glucose 171, plasma 4.5, calcium 9, phosphorus 3.4, magnesium 1.6, bilirubin 0.8, AST 31, ALT 24, alk phos 76, TSH 2.4 EKG done in the ER showed heart rate of , no ST segment elevation or depression seen, no T-wave inversions seen. Chest x-ray done in the ER showed left lower lobe pneumonia, cardiomegaly Patient was intubated and was admitted to ICU under internal medicine 08/16. Patient seen and examined. Currently in the ICU. Currently on tube feeding and on propofol. Patient off the pressors. Critical care planning sedation holiday today 08/17. Patient seen and examined. Patient was extubated this morning. Currently on nasal cannula 08/18. Patient seen and examined. Continues with liters of oxygen. Denies any lethargy or weakness. 08/19. Patient seen and examined.Vital signs on this morning showed temperature 97.8, heart rate 74, blood pressure 112/60, pulse ox 97% 2 L. Blood work done showed WBC 4.8, hemoglobin 9.2, sodium 146, potassium 3.7,. Continues to feel better. Was sitting up in the chair 08/20. Patient seen and examined. Breathing is improved. Patient was started on IV Lasix 20 mg every 12. Denies any nausea or vomiting REVIEW OF SYSTEMS: Denies any chest pain. Denies any nausea or vomiting. Denies any lethargy or weakness PHYSICAL EXAMINATION: GENERAL: The patient is alert, chronically ill looking HEENT: Pupils are round and equally reacting to light. EOMI. No scleral icterus. No conjunctival pallor. Normocephalic, atraumatic. No pharyngeal erythema. No thyromegaly. CARDIOVASCULAR: S1 and S2 present. No murmurs, rubs, or gallops. PULMONARY: Chest is clear to auscultation, no wheezing or crackles. ABDOMEN: Soft, nontender, nondistended, normoactive bowel sounds. No palpable organomegaly. MUSCULOSKELETAL: No joint swelling or deformity. EXTREMITIES: No cyanosis, clubbing, or pedal edema. NEUROLOGICAL: Following commands SKIN: Pressure ulcer seen on left buttocks and coccyx area Assessment and plan Acute hypoxic respiratory failure Bacterial pneumonia Septic shock Lactic acidosis Chronic anemia Severe MS, not in exacerbation Hypothyroid Dyslipidemia Stage II pressure ulcer left buttocks Stage III pressure ulcer left buttocks Stage II pressure ulcer coccyx Monitor vital signs Monitor CBC Monitor CMP Continue telemetry monitoring Aggressive bronchopulmonary hygiene Follow-up on blood cultures Follow-up on urine culture Continue aggressive bronchopulmonary hygiene Continue IV cefepime Start IV Lasix 20 mg to 12 Continue wound care Critical care following ID following Labs and medication were reviewed.. Continue same treatment. Continue with symptomatic treatment. Resume home medication. Monitor labs and vitals. DVT and GI prophylaxis. Further recommendations as per clinical course of the patient Dictation was produced using [employer] dictation software. please excuse any grammatical, word or spelling errors. Objective - Vital Signs Vital signs: Vital Signs Temp 98.2 F 08/21/23 07:06 Pulse 87 08/21/23 12:50 Resp 20 08/21/23 07:06 BP 137/80 08/21/23 07:06 Pulse Ox 99 08/21/23 07:06 FiO2 30 08/19/23 23:09 Intake & Output 08/20/23 08/21/23 08/21/23 18:59 06:59 18:59 Intake Total 370 Output Total 180 325 Balance 190 -325 Intake: IV 370 Cefepime 2 gm In Sodium 50 Chloride 0.9% 100 ml @ 25 mls/hr IVPB Q12HR YANIRA Rx #:[id number] Dextrose 5% in Water 1, 300 000 ml @ 75 mls/hr IV . [id number] YANIRA Rx#:[id number] KVO 20 Output: Urine 180 325 Other: Voiding Method Indwelling Catheter Indwelling Catheter Indwelling Catheter # Voids 3 - Labs CBC & Chem 7: 08/20/23 05:17 08/20/23 05:17 Labs: Abnormal Lab Results - Last 24 Hours (Table) 08/20/23 08/20/23 08/21/23 Range/Units 16:24 20:26 05:30 POC Glucose (mg/dL) 142 H 136 H 113 H (70-110) mg/dL 08/21/23 Range/Units 11:32 POC Glucose (mg/dL) 119 H (70-110) mg/dL Microbiology - Last 24 Hours (Table) 08/15/23 18:25 Blood Culture - Final Blood 08/15/23 18:10 Blood Culture - Final Blood 08/15/23 18:10 Urine Culture - Final Urine,Voided
--- NOTE | 2023-08-21 14:58 | P.PN ---
Subjective Progress Note Date: 08/21/23 Principal diagnosis: Reason for follow up sepsis/pneumonia/UTI Patient is a 53-year-old female past medical history significant for MS this patient has been bedbound senior living resident also with a history of hyperlipidemia pneumonia history of chronic bilateral gluteal and sacral pressure ulcer and episodes of osteomyelitis has been brought to the hospital concerning for mental status changes did have worsening respiratory status and up getting intubated chest x-ray with left midlung airspace opacity concerning for pneumonia and urine was positive as well. On today's evaluation that is 08/21/2023, Patient is afebrile patient is currently on 2 L nasal cannula oxygen and denies having any shortness of breath, the patient denies any chest pain or cough, the patient denies any nausea vomiting did not have any abdominal pain and no diarrhea has been reported. No new labs were obtained today culture has been negative so far Objective - Vital Signs Vital signs: Vital Signs Temp 98.2 F 08/21/23 07:06 Pulse 87 08/21/23 12:50 Resp 20 08/21/23 07:06 BP 137/80 08/21/23 07:06 Pulse Ox 99 08/21/23 07:06 FiO2 30 08/19/23 23:09 Intake & Output 08/20/23 08/21/23 08/21/23 18:59 06:59 18:59 Intake Total 370 Output Total 180 325 Balance 190 -325 Intake: IV 370 Cefepime 2 gm In Sodium 50 Chloride 0.9% 100 ml @ 25 mls/hr IVPB Q12HR YANIRA Rx #:[id number] Dextrose 5% in Water 1, 300 000 ml @ 75 mls/hr IV . [id number] YANIRA Rx#:[id number] KVO 20 Output: Urine 180 325 Other: Voiding Method Indwelling Catheter Indwelling Catheter Indwelling Catheter # Voids 3 - Exam GENERAL DESCRIPTION: Middle-aged female lying in bed in no distress RESPIRATORY SYSTEM: Unlabored breathing , decreased breath sounds at bases HEART: S1 S2 regular rate and rhythm , ABDOMEN: Soft , no tenderness EXTREMITIES: Diffuse swelling to bilateral lower extremity with some erythema but no open wound - Labs CBC & Chem 7: 08/20/23 05:17 08/20/23 05:17 Labs: Abnormal Lab Results - Last 24 Hours (Table) 08/20/23 08/20/23 08/21/23 Range/Units 16:24 20:26 05:30 POC Glucose (mg/dL) 142 H 136 H 113 H (70-110) mg/dL 08/21/23 Range/Units 11:32 POC Glucose (mg/dL) 119 H (70-110) mg/dL Microbiology - Last 24 Hours (Table) 08/15/23 18:25 Blood Culture - Final Blood 08/15/23 18:10 Blood Culture - Final Blood 08/15/23 18:10 Urine Culture - Final Urine,Voided Assessment and Plan (1) Pneumonia Current Visit: Yes Status: Acute Code(s): J18.9 - PNEUMONIA, UNSPECIFIED ORGANISM SNOMED Code(s): 742630435 (2) Urinary tract infection Current Visit: Yes Status: Acute Code(s): N39.0 - URINARY TRACT INFECTION, SITE NOT SPECIFIED SNOMED Code(s): 22137003 (3) Leukocytosis Current Visit: No Status: Acute Code(s): D72.829 - ELEVATED WHITE BLOOD CELL COUNT, UNSPECIFIED SNOMED Code(s): 949839413 Plan: 1patient presented to hospital with sepsis in this patient who did have a fever tachycardia elevated white count source likely UTI and question of possible pneumonia as the patient did have respiratory failure requiring intubation and evidence of right-sided infiltrate on chest x-ray we will need to cover for resistant gram-positive as well as gram-negative pathogen 2-patient also have a bilateral gluteal pressure ulcer but no significant cellulitis clinically doubt source of this sepsis, local wound care with Aquacel dressing and keep the area of the pressure 3-patient did have resolution of her fever white count normalized culture negative so far 4patient to continue with the cefepime while inpatient will transition to oral antibiotic on discharge Dictation was produced using [employer] dictation software. please excuse any grammatical, word or spelling errors. Time with Patient: Less than 30
[2023-08-21 16:26] LABS: Glucose,Whole Blood 129 mg/dL (70-110)
[2023-08-21 20:48] LABS: Glucose,Whole Blood 154 mg/dL (70-110)
[2023-08-22 05:51] LABS: Glucose,Whole Blood 103 mg/dL (70-110)
--- NOTE | 2023-08-22 07:25 | XR ---
EXAMINATION TYPE: XR chest 1V portable DATE OF EXAM: 08/22/2023 COMPARISON: 08/20/2023 HISTORY: Shortness of breath TECHNIQUE: Single frontal view of the chest is obtained. FINDINGS: No change in the partially consolidated predominantly perihilar opacities. Heart size not grossly enl arged. There is no pleural effusion or pneumothorax. The osseous structures are intact. IMPRESSION: No change in the bilateral acute cardiopulmonary disease.
[2023-08-22 09:13] LABS: Basophils # (A) 0.04 X 10*3/uL (0.00-0.10); Basophils % (A) 0.7 %; Eosinophils # (A) 0.21 X 10*3/uL (0.04-0.35); Eosinophils % (A) 3.9 %; HCT 32.7 % (37.2-46.3); HGB 10.1 g/dL (12.0-15.0); Lymphocytes # (A) 0.68 X 10*3/uL (0.90-5.00); Lymphocytes % (A) 12.7 %; MCH 27.3 pg (27.0-32.0); MCHC 30.9 g/dL (32.0-37.0); MCV 88.4 FL (80.0-97.0); Mean Platelet Volume 10.7 FL (9.5-12.2); Monocytes # (A) 0.37 X 10*3/uL (0.20-1.00); Monocytes % (A) 6.9 %; NRBC Per 100 WBC 0 X 10*3/uL (0.00-0.01); Neutrophils # (A) 3.85 X 10*3/uL (1.80-7.70); Neutrophils % (A) 71.9 %; Platelet Count 215 X 10*3/uL (140-440); RDW 16.3 % (11.5-14.5); WBC 5.36 X 10*3/uL (4.50-10.00)
[2023-08-22 09:18] LABS: BUN/Creat Ratio 26.86 Ratio (12.00-20.00); Blood Urea Nitrogen 18.8 mg/dL (9.0-27.0); Calcium 8.7 mg/dL (8.7-10.3); Carbon Dioxide 29.4 mmol/L (21.6-31.8); Chloride 106 mmol/L (96-109); Glucose 105 mg/dL (70-110); Potassium 3.6 mmol/L (3.5-5.5); Sodium 148 mmol/L (135-145)
[2023-08-22 12:16] LABS: Glucose,Whole Blood 118 mg/dL (70-110)
--- NOTE | 2023-08-22 13:58 | P.PN ---
Subjective Progress Note Date: 08/22/23 This is a 54-year-old female patient, currently intubated on mechanical ventilator. She arrived to the hospital from the senior living because of altered mental status and sepsis. The patient was found laying in bed, lethargic, extremely weak. She had a temperature of 102.3. Blood sugar was 190. She was given a bolus of 500 cc. In the ED, the patient was given additional IV fluids a total of 3 L. Events progressed since then. Details are not available and ultimately the patient was intubated and placed on the mechanical ventilator. Based on my review of the records, the patient has received a total of 4 L of IV fluids and she was started also on antibiotics and the patient is currently on a combination of Rocephin, Levaquin and vancomycin. Based on my review of the records, the patient is a senior living resident she has advanced multiple sclerosis with stage IV buttocks wounds and previous cultures from those wounds from 06/19/2023 yielded a combination of E. coli, Proteus and Enterococcus faecalis. She also has had previous urine tract infection with Pseudomonas aeruginosa and Enterococcus faecalis. The patient also had staph septicemia with MRSA based on positive blood cultures from 06/19/2023. Repeat blood cultures from 06/21/2023 was negative. She was at a senior living and she was eating a combination of cefepime and vancomycin and she completed antibiotic course on 08/24/2015 07/06/2023. At this point in time, the patient is intubated on mechanical ventilator, she is sedated with propofol which is running at 3035 mcg/kg/min IV fluids are in the form of normal saline at rate of 130 cc an hour. The patient is off pressors. Note that she required pressors overnight and the norepinephrine was running as high as 0.08 mcg/kg/min. The patient is currently on the mechanical ventilator assist-control mode, she is at the rate of 16, tidal volume of 450, FiO2 of 50% with a PEEP of 5. The chest x-ray is showing some limited bibasilar pulmonary infiltrates. Otherwise no clear airspace disease or consolidation. Blood gas from this morning shows a pH of 7.3 with a pCO2 of 43 and pO2 of 180. The white cell count is at 24, hemoglobin 12.1 and platelet count is 253. Sodium is at 142, potassium is at 4.7, BUN is 23 with a creatinine of 0.8. LFTs are essentially within normal limits. UA showed 48 WBCs and 20 RBCs. Patient was eval today on 08/17/2023, patient remains in the ICU, intubated and mechanically ventilated. Patient is on assist-control rate of 16 tidal volume 450 FiO2 30% and PEEP of 5 ABG showed a pO2 of 104 pCO2 42 pH of 7.36, hence no ventilator setting changes were made. Patient is still receiving vancomycin and cefepime empirically for her presentation of sepsis and septic shock. This is being addressed by infectious disease on the case. Patient remains on propofol at 45 mcg/kg/min and she is on IV fluid 0.9 normal saline at 130 cc/h receiving nutritional support/enteral feeding vital AF at 10 cc/h. Patient has underlying MS, and she has underlying chronic decubitus ulcers being addressed by infectious disease on the case. Chest x-ray showed minimal prominence of the interstitium/possible interstitial pneumonitis. WBC count is 12.4 hemoglobin 9.8 basic metabolic profile is normal bicarb is 20 BUN is 22, creatinine 0.69 sputum cultures and blood cultures are pending so far nondiagnostic patient is sedated, and I have recommended sedation holiday today, and interruption of sedation with assessment of mental status sometime this morning. Patient was evaluated today on 08/18/2023, patient remains in the ICU, intubated and mechanically ventilated. Patient is on assist-control rate of 16 tidal volume 450 FiO2 30% PEEP of 5 ABG showed a pO2 of 131 pCO2 37 pH of 7.37. X-ray is showing possibly some component of interstitial edema, hence Lasix 40 mg IV push x 1 was given. Patient remains on IV fluid which I changed from 0.9 normal saline to D5W at 75 cc/h remains on propofol at 40 mcg/kg/min she is on cefepime and vancomycin, patient had negative cultures so far. That is negative sputum cultures and negative blood cultures urine culture however is polymicrobial and needs repeat urine culture WBC count today is 10.7 hemoglobin is 9.6. Electrolytes showed hyponatremia with a sodium of 148, normal potassium and normal renal profile. Patient was eval today on 08/19/23, patient remains in the ICU, she was extubated yesterday, she is now on nasal cannula, at 2 L/min, IV fluid running D5W at 75 cc/h, and today I recommended that at night that the patient should be placed on BiPAP 02/24/% considering her severe MS. And the patient does seem to have shallow breathing. For some reason the patient was placed on Solu-Cortef on admission, and this was discontinued today. Patient is relatively asymptomatic, feeling much better today compared to yesterday, remains on antibiotics for her presumptive sepsis and septic shock most likely related to her multiple stage II and stage III pressure ulcers in the left buttock and in the coccyx, these are being addressed by infectious disease and by wound care staff. All cultures so far have remained negative. WBC count today is 5.8 hemoglobin 9.5 basic metab olic profile is normal except for sodium of 148 patient is receiving D5W address her hypernatremia Patient was reevaluated today on 08/20/2023, patient remains in the ICU, she tolerated the extubation well over the last 2 days. Patient is placed on BiPAP at night because of her MS, overall the patient seems to be very comfortable, and she is not in any distress. Presently on 2 L nasal cannula, and at night she is on BiPAP. Chest x-ray is showing possibly some increased interstitial markings, hence I recommended a trial of Lasix 20 mg IV push x 1. WBC count is 4.8 hemoglobin is 9.2 sodium is down to 146 from 148 yesterday, renal profile is normal electrolytes are normal The patient is seen today August 21, 2023 in follow-up on the regular medical floor. She was transferred out of the intensive care unit late yesterday. She is currently sitting up in bed. Awake and alert in no acute distress. Denies any worsening shortness of breath, cough or congestion. She is maintaining good O2 saturations in the high 90s on 2 L/min per nasal cannula. She is afebrile. Hemodynamically stable. Blood cultures revealed no growth. Urine culture revealed no growth. Sputum culture revealed no growth. Glucose 119. She is continued on cefepime. Remains on bronchodilators. Lovenox for DVT prophylaxis. She is initiated on Lasix 20 mg IV every 12 hours today. Currently in a -135 mL balance. The patient is seen today August 22, 2023 in follow-up on the regular medical floor. She is currently resting comfortably in bed. Awake and alert in no acute distress. She denies any worsening shortness of breath, cough or congestion. She is maintaining good O2 saturations in the 90s on 2 L/min per nasal cannula. She is afebrile. Hemodynamically stable. Chest x-ray remained stable with perihilar opacities. Blood cultures revealed no growth. Sputum cultures revealed no growth. White count 5.3. Hemoglobin 10.1. Platelets 215. Sodium 148. Potassium 3.6. Bicarb 29. BUN 19. Creatinine 0.7. Glucose 105. He is continued on cefepime and bronchodilators. Lovenox for DVT prophylaxis. Continued on Lasix 20 mg IV every 12 hours. C is currently in a -5.8 L balance though no intake recorded yet. Objective - Vital Signs Vital signs: Vital Signs Temp 98.1 F 08/22/23 08:06 Pulse 84 08/22/23 08:06 Resp 21 08/22/23 08:06 BP 142/88 08/22/23 08:06 Pulse Ox 98 08/22/23 09:25 FiO2 30 08/19/23 23:09 Intake & Output 08/21/23 08/22/23 08/22/23 18:59 06:59 18:59 Output Total 3800 2000 Balance -3800 -1999 Weight 98 kg Output: Urine 3800 2000 Other: Voiding Method Indwelling Catheter Indwelling Catheter Indwelling Catheter # Bowel Movements 0 - Exam GENERAL EXAM: Alert, 53-year-old female, on 2 L nasal cannula, in no apparent distress. HEAD: Normocephalic. EYES: Normal reaction of pupils, equal size. NOSE: Clear with pink turbinates. THROAT: No erythema or exudates. NECK: No masses, no JVD. CHEST: No chest wall deformity. LUNGS: Equal air entry with few crackles in the posterior bases. CVS: S1 and S2 normal with no audible murmur, regular rhythm. ABDOMEN: No hepatosplenomegaly, normal bowel sounds, no guarding or rigidity. SPINE: No scoliosis or deformity SKIN: Bilateral gluteal and sacral pressure ulcers. CENTRAL NERVOUS SYSTEM: No focal deficits, tone is normal in all 4 extremities. EXTREMITIES: There is no peripheral edema. No clubbing, no cyanosis. Peripheral pulses are intact. - Labs CBC & Chem 7: 08/22/23 04:16 08/22/23 04:16 Labs: Abnormal Lab Results - Last 24 Hours (Table) 08/21/23 08/21/23 08/22/23 Range/Units 16:25 20:44 04:16 RBC (4.10-5.20) X 10*6/uL Hgb (12.0-15.0) g/dL Hct (37.2-46.3) % MCHC (32.0-37.0) g/dL RDW (11.5-14.5) % Immature Gran # (0.00-0.04) X 10*3/uL Lymphocytes # (0.90-5.00) X 10*3/uL Sodium 148 H (135-145) mmol/L Anion Gap 12.60 H (4.00-12.00) mmol/L BUN/Creatinine Ratio 26.86 H (12.00-20.00) Ratio POC Glucose (mg/dL) 129 H 154 H (70-110) mg/dL 08/22/23 08/22/23 Range/Units 04:16 12:15 RBC 3.70 L (4.10-5.20) X 10*6/uL Hgb 10.1 L (12.0-15.0) g/dL Hct 32.7 L (37.2-46.3) % MCHC 30.9 L (32.0-37.0) g/dL RDW 16.3 H (11.5-14.5) % Immature Gran # 0.21 H (0.00-0.04) X 10*3/uL Lymphocytes # 0.68 L (0.90-5.00) X 10*3/uL Sodium (135-145) mmol/L Anion Gap (4.00-12.00) mmol/L BUN/Creatinine Ratio (12.00-20.00) Ratio POC Glucose (mg/dL) 118 H (70-110) mg/dL Assessment and Plan Assessment: Sepsis and septic shock is strongly suspected, exact source is unclear but most likely from buttocks and sacral pressure ulcers recovered Acute hypoxic respiratory failure requiring intubation mechanical ventilation, patient was extubated on 08/18/2023, recovered and on 2 L nasal cannula Advanced multiple sclerosis Hypotension secondary to sepsis and septic shock requiring pressors initially patient had previous history of positive Pseudomonas and Enterococcus faecalis infection/type History of neurogenic bladder History of stage IV right buttocks ulcers and positive drainage Acute leukocytosis secondary to above History of hypothyroidism History of dyslipidemia Plan: The patient was seen and evaluated Chest x-ray, labs and medications reviewed Currently on 2 L nasal cannula Remains on bronchodilators and cefepime. Continue Lasix 20 mg IV every 12 hours We will continue to follow I have personally seen and examined the patient, performed the documentation and the assessment and plan as written. Number of minutes spent on the visit: 10.
--- NOTE | 2023-08-22 14:10 | P.PN ---
Subjective Progress Note Date: 08/22/23 patient is a 53-year-old lady with past medical history significant for MS who is a resident of a intermediate facility brought to the ER for altered mental status. Most of the history has been limited and obtained from EMR. Patient has been complaining of fever and shortness of breath for the last day. Patient was found to be confused. There was concern of patient having pneumonia and patient was immediately brought to the ER Initial lab work done in the ER showed WBC 8.7, hemoglobin 11.5, platelet count 269, sodium 139, potassium 4.3, BUN 23, creatinine 0.93, glucose 171, plasma 4.5, calcium 9, phosphorus 3.4, magnesium 1.6, bilirubin 0.8, AST 31, ALT 24, alk phos 76, TSH 2.4 EKG done in the ER showed heart rate of , no ST segment elevation or depression seen, no T-wave inversions seen. Chest x-ray done in the ER showed left lower lobe pneumonia, cardiomegaly Patient was intubated and was admitted to ICU under internal medicine 08/16. Patient seen and examined. Currently in the ICU. Currently on tube feeding and on propofol. Patient off the pressors. Critical care planning sedation holiday today 08/17. Patient seen and examined. Patient was extubated this morning. Currently on nasal cannula 08/18. Patient seen and examined. Continues with liters of oxygen. Denies any lethargy or weakness. 08/19. Patient seen and examined.Vital signs on this morning showed temperature 97.8, heart rate 74, blood pressure 112/60, pulse ox 97% 2 L. Blood work done showed WBC 4.8, hemoglobin 9.2, sodium 146, potassium 3.7,. Continues to feel better. Was sitting up in the chair 08/20. Patient seen and examined. Breathing is improved. Patient was started on IV Lasix 20 mg every 12. Denies any nausea or vomiting 08/21. Patient seen and examined. Currently on 2 L of oxygen, saturating at 98%. Blood work done showed WBC 5.36, hemoglobin 10.1, platelet count 215, sodium 148, potassium 3.6, BUN 18.8, creatinine 0.7 REVIEW OF SYSTEMS: Denies any chest pain. Denies any nausea or vomiting. Denies any lethargy or weakness PHYSICAL EXAMINATION: GENERAL: The patient is alert, chronically ill looking HEENT: Pupils are round and equally reacting to light. EOMI. No scleral icterus. No conjunctival pallor. Normocephalic, atraumatic. No pharyngeal erythema. No thyromegaly. CARDIOVASCULAR: S1 and S2 present. No murmurs, rubs, or gallops. PULMONARY: Chest is clear to auscultation, no wheezing or crackles. ABDOMEN: Soft, nontender, nondistended, normoactive bowel sounds. No palpable organomegaly. MUSCULOSKELETAL: No joint swelling or deformity. EXTREMITIES: No cyanosis, clubbing, or pedal edema. NEUROLOGICAL: Following commands SKIN: Pressure ulcer seen on left buttocks and coccyx area Assessment and plan Acute hypoxic respiratory failure Bacterial pneumonia Septic shock Lactic acidosis Chronic anemia Severe MS, not in exacerbation Hypothyroid Dyslipidemia Stage II pressure ulcer left buttocks Stage III pressure ulcer left buttocks Stage II pressure ulcer coccyx Monitor vital signs Monitor CBC Monitor CMP Continue telemetry monitoring Aggressive bronchopulmonary hygiene Follow-up on blood cultures Follow-up on urine culture Continue aggressive bronchopulmonary hygiene Continue IV cefepime Continue IV Lasix 20 mg q 12 Continue wound care Critical care following ID following Labs and medication were reviewed.. Continue same treatment. Continue with symptomatic treatment. Resume home medication. Monitor labs and vitals. DVT and GI prophylaxis. Further recommendations as per clinical course of the patient Dictation was produced using [email or web address] dictation software. please excuse any grammatical, word or spelling errors. Objective - Vital Signs Vital signs: Vital Signs Temp 98.1 F 08/22/23 08:06 Pulse 84 08/22/23 08:06 Resp 21 08/22/23 08:06 BP 142/88 08/22/23 08:06 Pulse Ox 98 08/22/23 09:25 FiO2 30 08/19/23 23:09 Intake & Output 08/21/23 08/22/23 08/22/23 18:59 06:59 18:59 Output Total 3800 1999 Balance -3799 -1999 Weight 98 kg Output: Urine 3800 1999 Other: Voiding Method Indwelling Catheter Indwelling Catheter Indwelling Catheter # Bowel Movements 0 - Labs CBC & Chem 7: 08/22/23 04:16 08/22/23 04:16 Labs: Abnormal Lab Results - Last 24 Hours (Table) 08/21/23 08/21/23 08/21/23 Range/Units 11:32 16:25 20:44 RBC (4.10-5.20) X 10*6/uL Hgb (12.0-15.0) g/dL Hct (37.2-46.3) % MCHC (32.0-37.0) g/dL RDW (11.5-14.5) % Immature Gran # (0.00-0.04) X 10*3/uL Lymphocytes # (0.90-5.00) X 10*3/uL Sodium (135-145) mmol/L Anion Gap (4.00-12.00) mmol/L BUN/Creatinine Ratio (12.00-20.00) Ratio POC Glucose (mg/dL) 119 H 129 H 154 H (70-110) mg/dL 08/22/23 08/22/23 Range/Units 04:16 04:16 RBC 3.70 L (4.10-5.20) X 10*6/uL Hgb 10.1 L (12.0-15.0) g/dL Hct 32.7 L (37.2-46.3) % MCHC 30.9 L (32.0-37.0) g/dL RDW 16.3 H (11.5-14.5) % Immature Gran # 0.21 H (0.00-0.04) X 10*3/uL Lymphocytes # 0.68 L (0.90-5.00) X 10*3/uL Sodium 148 H (135-145) mmol/L Anion Gap 12.60 H (4.00-12.00) mmol/L BUN/Creatinine Ratio 26.86 H (12.00-20.00) Ratio POC Glucose (mg/dL) (70-110) mg/dL
[2023-08-22 16:51] LABS: Glucose,Whole Blood 135 mg/dL (70-110)
[2023-08-22 21:34] LABS: Glucose,Whole Blood 119 mg/dL (70-110)
[2023-08-23 06:12] LABS: Glucose,Whole Blood 121 mg/dL (70-110)
[2023-08-23 10:51] LABS: HGB 10.9 g/dL (12.0-15.0); MCHC 31.1 g/dL (32.0-37.0); MCV 86.6 FL (80.0-97.0); Mean Platelet Volume 10.5 FL (9.5-12.2); NRBC Per 100 WBC 0 X 10*3/uL (0.00-0.01); Platelet Count 236 X 10*3/uL (140-440); RBC 4.04 X 10*6/uL (4.10-5.20); RDW 16.2 % (11.5-14.5); WBC 3.82 X 10*3/uL (4.50-10.00)
[2023-08-23 10:58] LABS: ALT 18 U/L (8-44); AST 9 U/L (13-35); Albumin 3.9 g/dL (3.8-4.9); Albumin/Globulin Ratio 1.95 Ratio (1.60-3.17); Alkaline Phosphatase 61 U/L (41-126); BUN/Creat Ratio 31.17 Ratio (12.00-20.00); Blood Urea Nitrogen 18.7 mg/dL (9.0-27.0); Calcium 9.1 mg/dL (8.7-10.3); Carbon Dioxide 30.6 mmol/L (21.6-31.8); Chloride 100 mmol/L (96-109); Glucose 115 mg/dL (70-110); Potassium 3.5 mmol/L (3.5-5.5); Sodium 142 mmol/L (135-145); Total Bilirubin 0.4 mg/dL (0.3-1.2); Total Protein 5.9 g/dL (6.2-8.2)
[2023-08-23 11:36] LABS: Glucose,Whole Blood 116 mg/dL (70-110)
[2023-08-23 11:43] LABS: Neutrophils # (M) 2.87 X 10*3/uL (1.80-7.70); Neutrophils % (M) 75 %
[2023-08-23 12:07] LABS: Basophils # (M) 0.04 X 10*3/uL (0.00-0.10); Elliptocytes 2+; Eosinophils # (M) 0.31 X 10*3/uL (0.04-0.35); Lymphocytes # (M) 0.38 X 10*3/uL (0.90-5.00); Metamyelocytes % 1 % (0-0); Monocytes # (M) 0.15 X 10*3/uL (0.20-1.00); Myelocytes % 1 % (0-0)
--- NOTE | 2023-08-23 13:29 | P.PN ---
Subjective Progress Note Date: 08/23/23 patient is a 53-year-old lady with past medical history significant for MS who is a [facility] brought to the ER for altered mental status. Most of the history has been limited and obtained from EMR. Patient has been complaining of fever and shortness of breath for the last day. Patient was found to be confused. There was concern of patient having pneumonia and patient was immediately brought to the ER Initial lab work done in the ER showed WBC 8.7, hemoglobin 11.5, platelet count 269, sodium 139, potassium 4.3, BUN 23, creatinine 0.93, glucose 171, plasma 4.5, calcium 9, phosphorus 3.4, magnesium 1.6, bilirubin 0.8, AST 31, ALT 24, alk phos 76, TSH 2.4 EKG done in the ER showed heart rate of , no ST segment elevation or depression seen, no T-wave inversions seen. Chest x-ray done in the ER showed left lower lobe pneumonia, cardiomegaly Patient was intubated and was admitted to ICU under internal medicine 08/16. Patient seen and examined. Currently in the ICU. Currently on tube feeding and on propofol. Patient off the pressors. Critical care planning sedation holiday today 08/17. Patient seen and examined. Patient was extubated this morning. Currently on nasal cannula 08/18. Patient seen and examined. Continues with liters of oxygen. Denies any lethargy or weakness. 08/19. Patient seen and examined.Vital signs on this morning showed temperature 97.8, heart rate 74, blood pressure 112/60, pulse ox 97% 2 L. Blood work done showed WBC 4.8, hemoglobin 9.2, sodium 146, potassium 3.7,. Continues to feel better. Was sitting up in the chair 08/20. Patient seen and examined. Breathing is improved. Patient was started on IV Lasix 20 mg every 12. Denies any nausea or vomiting 08/21. Patient seen and examined. Currently on 2 L of oxygen, saturating at 98%. Blood work done showed WBC 5.36, hemoglobin 10.1, platelet count 215, sodium 148, potassium 3.6, BUN 18.8, creatinine 0.7 08/22. Patient seen and examined. Laying comfortably in the bed. No acute issue overnight. Currently on IV cefepime. REVIEW OF SYSTEMS: Denies any chest pain. Denies any nausea or vomiting. Denies any lethargy or weakness PHYSICAL EXAMINATION: GENERAL: The patient is alert, chronically ill looking HEENT: Pupils are round and equally reacting to light. EOMI. No scleral icterus. No conjunctival pallor. Normocephalic, atraumatic. No pharyngeal erythema. No thyromegaly. CARDIOVASCULAR: S1 and S2 present. No murmurs, rubs, or gallops. PULMONARY: Chest is clear to auscultation, no wheezing or crackles. ABDOMEN: Soft, nontender, nondistended, normoactive bowel sounds. No palpable organomegaly. MUSCULOSKELETAL: No joint swelling or deformity. EXTREMITIES: No cyanosis, clubbing, or pedal edema. NEUROLOGICAL: Following commands SKIN: Pressure ulcer seen on left buttocks and coccyx area Assessment and plan Acute hypoxic respiratory failure Bacterial pneumonia Septic shock Lactic acidosis Chronic anemia Severe MS, not in exacerbation Hypothyroid Dyslipidemia Stage II pressure ulcer left buttocks Stage III pressure ulcer left buttocks Stage II pressure ulcer coccyx Monitor vital signs Monitor CBC Monitor CMP Continue telemetry monitoring Aggressive bronchopulmonary hygiene Follow-up on blood cultures Follow-up on urine culture Continue aggressive bronchopulmonary hygiene Continue IV cefepime Continue Lasix Continue wound care Pulmonology following ID following Labs and medication were reviewed.. Continue same treatment. Continue with symptomatic treatment. Resume home medication. Monitor labs and vitals. DVT and GI prophylaxis. Further recommendations as per clinical course of the patient Dictation was produced using [employer] dictation software. please excuse any grammatical, word or spelling errors. Objective - Vital Signs Vital signs: Vital Signs Temp 98.2 F 08/23/23 07:45 Pulse 95 08/23/23 07:45 Resp 19 08/23/23 07:45 BP 122/79 08/23/23 07:45 Pulse Ox 96 08/23/23 09:23 FiO2 30 08/19/23 23:09 Intake & Output 08/22/23 08/23/23 08/23/23 18:59 06:59 18:59 Output Total 4300 2200 3300 Balance -4300 -2200 -3300 Weight 98 kg Output: Urine 4300 2200 3300 Other: Voiding Method Indwelling Catheter Indwelling Catheter # Bowel Movements 0 - Labs CBC & Chem 7: 08/23/23 06:31 08/23/23 06:31 Labs: Abnormal Lab Results - Last 24 Hours (Table) 08/22/23 08/22/23 08/23/23 Range/Units 16:49 21:33 06:11 WBC (4.50-10.00) X 10*3/uL RBC (4.10-5.20) X 10*6/uL Hgb (12.0-15.0) g/dL Hct (37.2-46.3) % MCHC (32.0-37.0) g/dL RDW (11.5-14.5) % Lymphocytes # (Manual) (0.90-5.00) X 10*3/uL Monocytes # (Manual) (0.20-1.00) X 10*3/uL Elliptocytes BUN/Creatinine Ratio (12.00-20.00) Ratio Glucose (70-110) mg/dL POC Glucose (mg/dL) 135 H 119 H 121 H (70-110) mg/dL AST (13-35) U/L Total Protein (6.2-8.2) g/dL 08/23/23 08/23/23 08/23/23 Range/Units 06:31 06:31 11:29 WBC 3.82 L (4.50-10.00) X 10*3/uL RBC 4.04 L (4.10-5.20) X 10*6/uL Hgb 10.9 L (12.0-15.0) g/dL Hct 35.0 L (37.2-46.3) % MCHC 31.1 L (32.0-37.0) g/dL RDW 16.2 H (11.5-14.5) % Lymphocytes # (Manual) 0.38 L (0.90-5.00) X 10*3/uL Monocytes # (Manual) 0.15 L (0.20-1.00) X 10*3/uL Elliptocytes 2+ A BUN/Creatinine Ratio 31.17 H (12.00-20.00) Ratio Glucose 115 H (70-110) mg/dL POC Glucose (mg/dL) 116 H (70-110) mg/dL AST 9 L (13-35) U/L Total Protein 5.9 L (6.2-8.2) g/dL
--- NOTE | 2023-08-23 13:44 | P.PN ---
Subjective Progress Note Date: 08/23/23 This is a 54-year-old female patient, currently intubated on mechanical ventilator. She arrived to the hospital from the group home because of altered mental status and sepsis. The patient was found laying in bed, lethargic, extremely weak. She had a temperature of 102.3. Blood sugar was 190. She was given a bolus of 500 cc. In the ED, the patient was given additional IV fluids a total of 3 L. Events progressed since then. Details are not available and ultimately the patient was intubated and placed on the mechanical ventilator. Based on my review of the records, the patient has received a total of 4 L of IV fluids and she was started also on antibiotics and the patient is currently on a combination of Rocephin, Levaquin and vancomycin. Based on my review of the records, the patient is a group home resident she has advanced multiple sclerosis with stage IV buttocks wounds and previous cultures from those wounds from 06/19/2023 yielded a combination of E. coli, Proteus and Enterococcus faecalis. She also has had previous urine tract infection with Pseudomonas aeruginosa and Enterococcus faecalis. The patient also had staph septicemia with MRSA based on positive blood cultures from 06/19/2023. Repeat blood cultures from 06/21/2023 was negative. She was at a group home and she was eating a combination of cefepime and vancomycin and she completed antibiotic course on 08/24/2015 07/06/2023. At this point in time, the patient is intubated on mechanical ventilator, she is sedated with propofol which is running at 3035 mcg/kg/min IV fluids are in the form of normal saline at rate of 130 cc an hour. The patient is off pressors. Note that she required pressors overnight and the norepinephrine was running as high as 0.08 mcg/kg/min. The patient is currently on the mechanical ventilator assist-control mode, she is at the rate of 16, tidal volume of 450, FiO2 of 50% with a PEEP of 5. The chest x-ray is showing some limited bibasilar pulmonary infiltrates. Otherwise no clear airspace disease or consolidation. Blood gas from this morning shows a pH of 7.3 with a pCO2 of 43 and pO2 of 180. The white cell count is at 24, hemoglobin 12.1 and platelet count is 253. Sodium is at 142, potassium is at 4.7, BUN is 23 with a creatinine of 0.8. LFTs are essentially within normal limits. UA showed 48 WBCs and 20 RBCs. Patient was eval today on 08/17/2023, patient remains in the ICU, intubated and mechanically ventilated. Patient is on assist-control rate of 16 tidal volume 450 FiO2 30% and PEEP of 5 ABG showed a pO2 of 104 pCO2 42 pH of 7.36, hence no ventilator setting changes were made. Patient is still receiving vancomycin and cefepime empirically for her presentation of sepsis and septic shock. This is being addressed by infectious disease on the case. Patient remains on propofol at 45 mcg/kg/min and she is on IV fluid 0.9 normal saline at 130 cc/h receiving nutritional support/enteral feeding vital AF at 10 cc/h. Patient has underlying MS, and she has underlying chronic decubitus ulcers being addressed by infectious disease on the case. Chest x-ray showed minimal prominence of the interstitium/possible interstitial pneumonitis. WBC count is 12.4 hemoglobin 9.8 basic metabolic profile is normal bicarb is 20 BUN is 22, creatinine 0.69 sputum cultures and blood cultures are pending so far nondiagnostic patient is sedated, and I have recommended sedation holiday today, and interruption of sedation with assessment of mental status sometime this morning. Patient was evaluated today on 08/18/2023, patient remains in the ICU, intubated and mechanically ventilated. Patient is on assist-control rate of 16 tidal volume 450 FiO2 30% PEEP of 5 ABG showed a pO2 of 131 pCO2 37 pH of 7.37. X-ray is showing possibly some component of interstitial edema, hence Lasix 40 mg IV push x 1 was given. Patient remains on IV fluid which I changed from 0.9 normal saline to D5W at 75 cc/h remains on propofol at 40 mcg/kg/min she is on cefepime and vancomycin, patient had negative cultures so far. That is negative sputum cultures and negative blood cultures urine culture however is polymicrobial and needs repeat urine culture WBC count today is 10.7 hemoglobin is 9.6. Electrolytes showed hyponatremia with a sodium of 148, normal potassium and normal renal profile. Patient was eval today on 08/19/23, patient remains in the ICU, she was extubated yesterday, she is now on nasal cannula, at 2 L/min, IV fluid running D5W at 75 cc/h, and today I recommended that at night that the patient should be placed on BiPAP 02/24/% considering her severe MS. And the patient does seem to have shallow breathing. For some reason the patient was placed on Solu-Cortef on admission, and this was discontinued today. Patient is relatively asymptomatic, feeling much better today compared to yesterday, remains on antibiotics for her presumptive sepsis and septic shock most likely related to her multiple stage II and stage III pressure ulcers in the left buttock and in the coccyx, these are being addressed by infectious disease and by wound care staff. All cultures so far have remained negative. WBC count today is 5.8 hemoglobin 9.5 basic metab olic profile is normal except for sodium of 148 patient is receiving D5W address her hypernatremia Patient was reevaluated today on 08/20/2023, patient remains in the ICU, she tolerated the extubation well over the last 2 days. Patient is placed on BiPAP at night because of her MS, overall the patient seems to be very comfortable, and she is not in any distress. Presently on 2 L nasal cannula, and at night she is on BiPAP. Chest x-ray is showing possibly some increased interstitial markings, hence I recommended a trial of Lasix 20 mg IV push x 1. WBC count is 4.8 hemoglobin is 9.2 sodium is down to 146 from 148 yesterday, renal profile is normal electrolytes are normal The patient is seen today August 21, 2023 in follow-up on the regular medical floor. She was transferred out of the intensive care unit late yesterday. She is currently sitting up in bed. Awake and alert in no acute distress. Denies any worsening shortness of breath, cough or congestion. She is maintaining good O2 saturations in the high 90s on 2 L/min per nasal cannula. She is afebrile. Hemodynamically stable. Blood cultures revealed no growth. Urine culture revealed no growth. Sputum culture revealed no growth. Glucose 119. She is continued on cefepime. Remains on bronchodilators. Lovenox for DVT prophylaxis. She is initiated on Lasix 20 mg IV every 12 hours today. Currently in a -135 mL balance. The patient is seen today August 22, 2023 in follow-up on the regular medical floor. She is currently resting comfortably in bed. Awake and alert in no acute distress. She denies any worsening shortness of breath, cough or congestion. She is maintaining good O2 saturations in the 90s on 2 L/min per nasal cannula. She is afebrile. Hemodynamically stable. Chest x-ray remained stable with perihilar opacities. Blood cultures revealed no growth. Sputum cultures revealed no growth. White count 5.3. Hemoglobin 10.1. Platelets 215. Sodium 148. Potassium 3.6. Bicarb 29. BUN 19. Creatinine 0.7. Glucose 105. He is continued on cefepime and bronchodilators. Lovenox for DVT prophylaxis. Continued on Lasix 20 mg IV every 12 hours. C is currently in a -5.8 L balance though no intake recorded yet. Patient is seen today August 23, 2023 in follow-up on the regular medical floor. She is currently resting comfortably in bed. Awake and alert in no acute distress. She is maintaining good O2 saturations in the 90s on room air. She has been afebrile. Hemodynamically stable. Blood cultures revealed no growth. Urine culture revealed no growth. Sputum culture revealed no growth. White count 3.8. Hemoglobin 10.9. Platelets 236. Sodium 142. Potassium 3.5. Bicarb 31. BUN 19. Creatinine 0.6. Glucose 115. Is continued on cefepime. Remains on bronchodilators. Lovenox for DVT prophylaxis. Remains on IV diuretics. Currently net -3.3 L balance. Objective - Vital Signs Vital signs: Vital Signs Temp 98.2 F 08/23/23 07:45 Pulse 95 08/23/23 07:45 Resp 19 08/23/23 07:45 BP 122/79 08/23/23 07:45 Pulse Ox 96 08/23/23 09:23 FiO2 30 08/19/23 23:09 Intake & Output 08/22/23 08/23/23 08/23/23 18:59 06:59 18:59 Output Total 4300 2200 3300 Balance -4300 -2200 -3300 Weight 98 kg Output: Urine 4300 2200 3300 Other: Voiding Method Indwelling Catheter Indwelling Catheter # Bowel Movements 0 - Exam GENERAL EXAM: Alert, does not 53-year-old female, on room air, in no apparent distress. HEAD: Normocephalic. EYES: Normal reaction of pupils, equal size. NOSE: Clear with pink turbinates. THROAT: No erythema or exudates. NECK: No masses, no JVD. CHEST: No chest wall deformity. LUNGS: Equal air entry with few crackles in the posterior bases. CVS: S1 and S2 normal with no audible murmur, regular rhythm. ABDOMEN: No hepatosplenomegaly, normal bowel sounds, no guarding or rigidity. SPINE: No scoliosis or deformity SKIN: Bilateral gluteal and sacral pressure ulcers. CENTRAL NERVOUS SYSTEM: No focal deficits, tone is normal in all 4 extremities. EXTREMITIES: There is no peripheral edema. No clubbing, no cyanosis. Peripheral pulses are intact. - Labs CBC & Chem 7: 08/23/23 06:31 08/23/23 06:31 Labs: Abnormal Lab Results - Last 24 Hours (Table) 08/22/23 08/22/23 08/23/23 Range/Units 16:49 21:33 06:11 WBC (4.50-10.00) X 10*3/uL RBC (4.10-5.20) X 10*6/uL Hgb (12.0-15.0) g/dL Hct (37.2-46.3) % MCHC (32.0-37.0) g/dL RDW (11.5-14.5) % Lymphocytes # (Manual) (0.90-5.00) X 10*3/uL Monocytes # (Manual) (0.20-1.00) X 10*3/uL Elliptocytes BUN/Creatinine Ratio (12.00-20.00) Ratio Glucose (70-110) mg/dL POC Glucose (mg/dL) 135 H 119 H 121 H (70-110) mg/dL AST (13-35) U/L Total Protein (6.2-8.2) g/dL 08/23/23 08/23/23 08/23/23 Range/Units 06:31 06:31 11:29 WBC 3.82 L (4.50-10.00) X 10*3/uL RBC 4.04 L (4.10-5.20) X 10*6/uL Hgb 10.9 L (12.0-15.0) g/dL Hct 35.0 L (37.2-46.3) % MCHC 31.1 L (32.0-37.0) g/dL RDW 16.2 H (11.5-14.5) % Lymphocytes # (Manual) 0.38 L (0.90-5.00) X 10*3/uL Monocytes # (Manual) 0.15 L (0.20-1.00) X 10*3/uL Elliptocytes 2+ A BUN/Creatinine Ratio 31.17 H (12.00-20.00) Ratio Glucose 115 H (70-110) mg/dL POC Glucose (mg/dL) 116 H (70-110) mg/dL AST 9 L (13-35) U/L Total Protein 5.9 L (6.2-8.2) g/dL Assessment and Plan Assessment: Sepsis and septic shock is strongly suspected, exact source is unclear but most likely from buttocks and sacral pressure ulcers recovered Acute hypoxic respiratory failure requiring intubation mechanical ventilation, patient was extubated on 08/18/2023, recovered and on room air Advanced multiple sclerosis Hypotension secondary to sepsis and septic shock requiring pressors initially patient had previous history of positive Pseudomonas and Enterococcus faecalis infection/type History of neurogenic bladder History of stage IV right buttocks ulcers and positive drainage Acute leukocytosis secondary to above, recovered History of hypothyroidism History of dyslipidemia Plan: The patient was seen and evaluated Labs and medications reviewed Stable and on room air Transition to oral diuretics Remains on bronchodilators Remains on cefepime Plan is to return to [facility] tomorrow I have personally seen and examined the patient, performed the documentation and the assessment and plan as written. Number of minutes spent on the visit: 10.
[2023-08-23 14:03] VITALS: BMI 35.9
[2023-08-23 16:55] LABS: Glucose,Whole Blood 135 mg/dL (70-110)
[2023-08-23 20:41] LABS: Glucose,Whole Blood 136 mg/dL (70-110)
[2023-08-23] MEDS ORDERED: ACETAMINOPHEN TAB 325 MG TAB PO PRN (22:27)
[2023-08-23] MEDS ORDERED: CYCLOBENZAPRINE 5 MG TAB PO PRN (22:27)
[2023-08-23] MEDS: HYDROcodone/APAP 7.5-325MG 1 EACH TAB PO SCH (22:51)
[2023-08-24 05:55] LABS: Glucose,Whole Blood 132 mg/dL (70-110)
[2023-08-24] MEDS: GABAPENTIN 300 MG CAP PO SCH (06:22)
[2023-08-24] MEDS: BACLOFEN 10 MG TAB PO SCH (06:22)
[2023-08-24 07:52] VITALS: BP 112/75; PULSE 96; RESP 17; TEMP 97.8
[2023-08-24] MEDS ORDERED: HYDROcodone/APAP 7.5-325MG 1 EACH TAB PO SCH (09:00)
[2023-08-24] MEDS: POTASSIUM CHLORIDE ER 20 MEQ TAB.ER PO SCH (09:25)
[2023-08-24] MEDS: MULTIVITAMINS, THERA 1 EACH TAB PO SCH (09:25)
[2023-08-24] MEDS: ASCORBIC ACID 500 MG TAB PO SCH (09:25)
[2023-08-24] MEDS: SENNOSIDES 8.6 MG TAB PO SCH (09:26)
[2023-08-24] MEDS: FUROSEMIDE 20 MG TAB PO SCH (09:26)
[2023-08-24] MEDS: FOLIC ACID 1 MG TAB PO SCH (09:26)
[2023-08-24] MEDS: ASPIRIN 81 MG PO SCH (09:26)
--- NOTE | 2023-08-24 10:49 | P.DS ---
Providers Date of admission: 08/15/23 22:23 Expected date of discharge: 08/24/23 Attending physician: Clementine Mc Consults: 08/15/23 22:21 Consult Physician Routine Consulting Provider: Leeroy Aguilera Consult Reason/Comments: icu Do you want consulting provider notified?: Yes 08/16/23 09:52 Consult Physician Routine Consulting Provider: Bobo Rivero Consult Reason/Comments: Septic shock Do you want consulting provider notified?: Yes Primary care physician: Brianne Gomez DO Hospital Course: Discharge diagnoses; Acute hypoxic respiratory failure Bacterial pneumonia Septic shock Lactic acidosis Chronic anemia Severe MS, not in exacerbation Hypothyroid Dyslipidemia Stage II pressure ulcer left buttocks Stage III pressure ulcer left buttocks Stage II pressure ulcer coccyx Hospital course; patient is a 53-year-old lady with past medical history significant for MS who is a resident of a detention facility brought to the ER for altered mental status. Most of the history has been limited and obtained from EMR. Patient has been complaining of fever and shortness of breath for the last day. Patient was found to be confused. There was concern of patient having pneumonia and patient was immediately brought to the ER Initial lab work done in the ER showed WBC 8.7, hemoglobin 11.5, platelet count 269, sodium 139, potassium 4.3, BUN 23, creatinine 0.93, glucose 171, plasma 4.5, calcium 9, phosphorus 3.4, magnesium 1.6, bilirubin 0.8, AST 31, ALT 24, alk phos 76, TSH 2.4 EKG done in the ER showed heart rate of , no ST segment elevation or depression seen, no T-wave inversions seen. Chest x-ray done in the ER showed left lower lobe pneumonia, cardiomegaly Patient was intubated and was admitted to ICU under internal medicine 08/16. Patient seen and examined. Currently in the ICU. Currently on tube feeding and on propofol. Patient off the pressors. Critical care planning sedation holiday today 08/17. Patient seen and examined. Patient was extubated this morning. Currently on nasal cannula 08/18. Patient seen and examined. Continues with liters of oxygen. Denies any lethargy or weakness. 08/19. Patient seen and examined.Vital signs on this morning showed temperature 97.8, heart rate 74, blood pressure 112/60, pulse ox 97% 2 L. Blood work done showed WBC 4.8, hemoglobin 9.2, sodium 146, potassium 3.7,. Continues to feel better. Was sitting up in the chair 08/20. Patient seen and examined. Breathing is improved. Patient was started on IV Lasix 20 mg every 12. Denies any nausea or vomiting 08/21. Patient seen and examined. Currently on 2 L of oxygen, saturating at 98%. Blood work done showed WBC 5.36, hemoglobin 10.1, platelet count 215, sodium 148, potassium 3.6, BUN 18.8, creatinine 0.7 08/22. Patient seen and examined. Laying comfortably in the bed. No acute issue overnight. Currently on IV cefepime. 08/23. Patient seen and examined. ID recommended starting patient on oral Ceftin for 10 days. Outpatient follow-up with ID and pulmonology. PHYSICAL EXAMINATION: GENERAL: The patient is alert, chronically ill looking HEENT: Pupils are round and equally reacting to light. EOMI. No scleral icterus. No conjunctival pallor. Normocephalic, atraumatic. No pharyngeal erythema. No thyromegaly. CARDIOVASCULAR: S1 and S2 present. No murmurs, rubs, or gallops. PULMONARY: Chest is clear to auscultation, no wheezing or crackles. ABDOMEN: Soft, nontender, nondistended, normoactive bowel sounds. No palpable organomegaly. MUSCULOSKELETAL: No joint swelling or deformity. EXTREMITIES: No cyanosis, clubbing, or pedal edema. NEUROLOGICAL: Following commands SKIN: Pressure ulcer seen on left buttocks and coccyx area Dictation was produced using [employer] dictation software. please excuse any grammatical, word or spelling errors. Patient Condition at Discharge: Good Plan - Discharge Summary Discharge Rx Participant: No New Discharge Prescriptions: New cefUROXime axetiL [Ceftin] 500 mg PO BID 10 Days #20 tab Continue Potassium Chloride ER [K-Dur 20] 20 meq PO BID Aspirin 81 mg PO DAILY Sennosides [Senna] 8.6 mg PO BID Levothyroxine Sodium [Synthroid] 75 mcg PO HS Atorvastatin [Lipitor] 10 mg PO HS Pro-Stat Liquid (Amino Acids-Protein Hydrolysate) 30 ml PO DAILY Ascorbic Acid [Vitamin C] 500 mg PO DAILY Naloxone HCl 0.4 mg SQ DIRECTED PRN PRN Reason: OVERDOSE Folic Acid 0.4 mg PO BID Menthol [Icy Hot] 1 patch TRANSDERM DAILY Carboxymethylcellulose Sodium [Refresh Tears] 1 drop BOTH EYES DAILY Diroximel Fumarate [Vumerity] 462 mg PO BID Furosemide [Lasix] 20 mg PO DAILY Baclofen 10 mg PO TID@0700,1300,1900 Multivitamins, Thera [Multivitamin (formulary)] 1 tab PO DAILY Nitroglycerin Sl Tabs [Nitrostat] 0.4 mg SUBLINGUAL Q5M PRN PRN Reason: Chest Pain Cyclobenzaprine [Flexeril] 5 mg PO Q8H PRN PRN Reason: Muscle Spasm Famotidine [Pepcid] 10 mg PO DAILY Acetaminophen [Tylenol 8 Hour] 650 mg PO Q8H PRN PRN Reason: Pain Changed Gabapentin [Neurontin] 300 mg PO BID@0700,1900 3 Days #6 cap HYDROcodone/APAP 7.5-325MG [[place] 7.5-325] 1 tab PO QID PRN 3 Days #12 tab PRN Reason: Pain Scale 6 To 10 Discharge Medication List Potassium Chloride ER [K-Dur 20] 20 meq PO BID 01/12/19 [History] Aspirin 81 mg PO DAILY 09/15/19 [History] Sennosides [Senna] 8.6 mg PO BID 01/31/20 [History] Atorvastatin [Lipitor] 10 mg PO HS 09/22/21 [History] Diroximel Fumarate [Vumerity] 462 mg PO BID 09/22/21 [History] Levothyroxine Sodium [Synthroid] 75 mcg PO HS 09/22/21 [History] Ascorbic Acid [Vitamin C] 500 mg PO DAILY 05/14/22 [History] Furosemide [Lasix] 20 mg PO DAILY 05/14/22 [History] Pro-Stat Liquid (Amino Acids-Protein Hydrolysate) 30 ml PO DAILY 05/14/22 [History] Baclofen 10 mg PO TID@0700,1300,1900 12/22/22 [History] Multivitamins, Thera [Multivitamin (formulary)] 1 tab PO DAILY 12/22/22 [History] Folic Acid 0.4 mg PO BID 06/19/23 [History] Naloxone HCl 0.4 mg SQ DIRECTED PRN 06/19/23 [History] Nitroglycerin Sl Tabs [Nitrostat] 0.4 mg SUBLINGUAL Q5M PRN 06/19/23 [History] Acetaminophen [Tylenol 8 Hour] 650 mg PO Q8H PRN 08/16/23 [History] Carboxymethylcellulose Sodium [Refresh Tears] 1 drop BOTH EYES DAILY 08/16/23 [History] Cyclobenzaprine [Flexeril] 5 mg PO Q8H PRN 08/16/23 [History] Famotidine [Pepcid] 10 mg PO DAILY 08/16/23 [History] Menthol [Icy Hot] 1 patch TRANSDERM DAILY 08/16/23 [History] Gabapentin [Neurontin] 300 mg PO BID@0700,1900 3 Days #6 cap 08/24/23 [Rx] HYDROcodone/APAP 7.5-325MG [[place] 7.5-325] 1 tab PO QID PRN 3 Days #12 tab 08/24/23 [Rx] cefUROXime axetiL [Ceftin] 500 mg PO BID 10 Days #20 tab 08/24/23 [Rx] Follow up Appointment(s)/Referral(s): Brianne Gomez DO [Primary Care Provider] - 1-2 days Bobo Rivero MD [STAFF PHYSICIAN] - 1 Week Conchita Ribeiro MD [STAFF PHYSICIAN] - 1 Week Discharge Disposition: TRANSFER TO SNF/ECF
--- NOTE | 2023-08-24 11:30 | P.PN ---
Subjective Progress Note Date: 08/24/23 This is a 54-year-old female patient, currently intubated on mechanical ventilator. She arrived to the hospital from the shelter because of altered mental status and sepsis. The patient was found laying in bed, lethargic, extremely weak. She had a temperature of 102.3. Blood sugar was 190. She was given a bolus of 500 cc. In the ED, the patient was given additional IV fluids a total of 3 L. Events progressed since then. Details are not available and ultimately the patient was intubated and placed on the mechanical ventilator. Based on my review of the records, the patient has received a total of 4 L of IV fluids and she was started also on antibiotics and the patient is currently on a combination of Rocephin, Levaquin and vancomycin. Based on my review of the records, the patient is a shelter resident she has advanced multiple sclerosis with stage IV buttocks wounds and previous cultures from those wounds from 06/19/2023 yielded a combination of E. coli, Proteus and Enterococcus faecalis. She also has had previous urine tract infection with Pseudomonas aeruginosa and Enterococcus faecalis. The patient also had staph septicemia with MRSA based on positive blood cultures from 06/19/2023. Repeat blood cultures from 06/21/2023 was negative. She was at a shelter and she was eating a combination of cefepime and vancomycin and she completed antibiotic course on 08/24/2015 07/06/2023. At this point in time, the patient is intubated on mechanical ventilator, she is sedated with propofol which is running at 3035 mcg/kg/min IV fluids are in the form of normal saline at rate of 130 cc an hour. The patient is off pressors. Note that she required pressors overnight and the norepinephrine was running as high as 0.08 mcg/kg/min. The patient is currently on the mechanical ventilator assist-control mode, she is at the rate of 16, tidal volume of 450, FiO2 of 50% with a PEEP of 5. The chest x-ray is showing some limited bibasilar pulmonary infiltrates. Otherwise no clear airspace disease or consolidation. Blood gas from this morning shows a pH of 7.3 with a pCO2 of 43 and pO2 of 180. The white cell count is at 24, hemoglobin 12.1 and platelet count is 253. Sodium is at 142, potassium is at 4.7, BUN is 23 with a creatinine of 0.8. LFTs are essentially within normal limits. UA showed 48 WBCs and 20 RBCs. Patient was eval today on 08/17/2023, patient remains in the ICU, intubated and mechanically ventilated. Patient is on assist-control rate of 16 tidal volume 450 FiO2 30% and PEEP of 5 ABG showed a pO2 of 104 pCO2 42 pH of 7.36, hence no ventilator setting changes were made. Patient is still receiving vancomycin and cefepime empirically for her presentation of sepsis and septic shock. This is being addressed by infectious disease on the case. Patient remains on propofol at 45 mcg/kg/min and she is on IV fluid 0.9 normal saline at 130 cc/h receiving nutritional support/enteral feeding vital AF at 10 cc/h. Patient has underlying MS, and she has underlying chronic decubitus ulcers being addressed by infectious disease on the case. Chest x-ray showed minimal prominence of the interstitium/possible interstitial pneumonitis. WBC count is 12.4 hemoglobin 9.8 basic metabolic profile is normal bicarb is 20 BUN is 22, creatinine 0.69 sputum cultures and blood cultures are pending so far nondiagnostic patient is sedated, and I have recommended sedation holiday today, and interruption of sedation with assessment of mental status sometime this morning. Patient was evaluated today on 08/18/2023, patient remains in the ICU, intubated and mechanically ventilated. Patient is on assist-control rate of 16 tidal volume 450 FiO2 30% PEEP of 5 ABG showed a pO2 of 131 pCO2 37 pH of 7.37. X-ray is showing possibly some component of interstitial edema, hence Lasix 40 mg IV push x 1 was given. Patient remains on IV fluid which I changed from 0.9 normal saline to D5W at 75 cc/h remains on propofol at 40 mcg/kg/min she is on cefepime and vancomycin, patient had negative cultures so far. That is negative sputum cultures and negative blood cultures urine culture however is polymicrobial and needs repeat urine culture WBC count today is 10.7 hemoglobin is 9.6. Electrolytes showed hyponatremia with a sodium of 148, normal potassium and normal renal profile. Patient was eval today on 08/19/23, patient remains in the ICU, she was extubated yesterday, she is now on nasal cannula, at 2 L/min, IV fluid running D5W at 75 cc/h, and today I recommended that at night that the patient should be placed on BiPAP 02/24/% considering her severe MS. And the patient does seem to have shallow breathing. For some reason the patient was placed on Solu-Cortef on admission, and this was discontinued today. Patient is relatively asymptomatic, feeling much better today compared to yesterday, remains on antibiotics for her presumptive sepsis and septic shock most likely related to her multiple stage II and stage III pressure ulcers in the left buttock and in the coccyx, these are being addressed by infectious disease and by wound care staff. All cultures so far have remained negative. WBC count today is 5.8 hemoglobin 9.5 basic metab olic profile is normal except for sodium of 148 patient is receiving D5W address her hypernatremia Patient was reevaluated today on 08/20/2023, patient remains in the ICU, she tolerated the extubation well over the last 2 days. Patient is placed on BiPAP at night because of her MS, overall the patient seems to be very comfortable, and she is not in any distress. Presently on 2 L nasal cannula, and at night she is on BiPAP. Chest x-ray is showing possibly some increased interstitial markings, hence I recommended a trial of Lasix 20 mg IV push x 1. WBC count is 4.8 hemoglobin is 9.2 sodium is down to 146 from 148 yesterday, renal profile is normal electrolytes are normal The patient is seen today August 21, 2023 in follow-up on the regular medical floor. She was transferred out of the intensive care unit late yesterday. She is currently sitting up in bed. Awake and alert in no acute distress. Denies any worsening shortness of breath, cough or congestion. She is maintaining good O2 saturations in the high 90s on 2 L/min per nasal cannula. She is afebrile. Hemodynamically stable. Blood cultures revealed no growth. Urine culture revealed no growth. Sputum culture revealed no growth. Glucose 119. She is continued on cefepime. Remains on bronchodilators. Lovenox for DVT prophylaxis. She is initiated on Lasix 20 mg IV every 12 hours today. Currently in a -135 mL balance. The patient is seen today August 22, 2023 in follow-up on the regular medical floor. She is currently resting comfortably in bed. Awake and alert in no acute distress. She denies any worsening shortness of breath, cough or congestion. She is maintaining good O2 saturations in the 90s on 2 L/min per nasal cannula. She is afebrile. Hemodynamically stable. Chest x-ray remained stable with perihilar opacities. Blood cultures revealed no growth. Sputum cultures revealed no growth. White count 5.3. Hemoglobin 10.1. Platelets 215. Sodium 148. Potassium 3.6. Bicarb 29. BUN 19. Creatinine 0.7. Glucose 105. He is continued on cefepime and bronchodilators. Lovenox for DVT prophylaxis. Continued on Lasix 20 mg IV every 12 hours. C is currently in a -5.8 L balance though no intake recorded yet. Patient is seen today August 23, 2023 in follow-up on the regular medical floor. She is currently resting comfortably in bed. Awake and alert in no acute distress. She is maintaining good O2 saturations in the 90s on room air. She has been afebrile. Hemodynamically stable. Blood cultures revealed no growth. Urine culture revealed no growth. Sputum culture revealed no growth. White count 3.8. Hemoglobin 10.9. Platelets 236. Sodium 142. Potassium 3.5. Bicarb 31. BUN 19. Creatinine 0.6. Glucose 115. Is continued on cefepime. Remains on bronchodilators. Lovenox for DVT prophylaxis. Remains on IV diuretics. Currently net -3.3 L balance. The patient is seen today August 24, 2023 in follow-up on the regular medical floor. She is awake and alert in no acute distress. Currently sitting up in bed. Maintaining good O2 saturations in the 90s on room air. She has normal staying at [facility]. She is continued on cefepime. Blood, urine and sputum cultures revealed no growth. Glucose 132. Objective - Vital Signs Vital signs: Vital Signs Temp 97.8 F 08/24/23 07:31 Pulse 96 08/24/23 07:31 Resp 17 08/24/23 07:31 BP 112/75 08/24/23 07:31 Pulse Ox 97 08/24/23 09:29 FiO2 30 08/19/23 23:09 Intake & Output 08/23/23 08/24/23 08/24/23 18:59 06:59 18:59 Output Total 4900 1500 Balance -4900 -1500 Weight 98 kg 92 kg Output: Urine 4900 1500 Other: Voiding Method Indwelling Catheter - Exam GENERAL EXAM: Alert, pleasant 53-year-old female, resting in bed, on room air, in no apparent distress. HEAD: Normocephalic. EYES: Normal reaction of pupils, equal size. NOSE: Clear with pink turbinates. THROAT: No erythema or exudates. NECK: No masses, no JVD. CHEST: No chest wall deformity. LUNGS: Equal air entry with few crackles in the posterior bases. CVS: S1 and S2 normal with no audible murmur, regular rhythm. ABDOMEN: No hepatosplenomegaly, normal bowel sounds, no guarding or rigidity. SPINE: No scoliosis or deformity SKIN: Bilateral gluteal and sacral pressure ulcers. CENTRAL NERVOUS SYSTEM: No focal deficits, tone is normal in all 4 extremities. EXTREMITIES: There is no peripheral edema. No clubbing, no cyanosis. Peripheral pulses are intact. - Labs CBC & Chem 7: 08/23/23 06:31 08/23/23 06:31 Labs: Abnormal Lab Results - Last 24 Hours (Table) 08/23/23 08/23/23 08/23/23 Range/Units 06:31 11:29 16:54 Lymphocytes # (Manual) 0.38 L (0.90-5.00) X 10*3/uL Monocytes # (Manual) 0.15 L (0.20-1.00) X 10*3/uL Elliptocytes 2+ A POC Glucose (mg/dL) 116 H 135 H (70-110) mg/dL 08/23/23 08/24/23 Range/Units 20:36 05:53 Lymphocytes # (Manual) (0.90-5.00) X 10*3/uL Monocytes # (Manual) (0.20-1.00) X 10*3/uL Elliptocytes POC Glucose (mg/dL) 136 H 132 H (70-110) mg/dL Assessment and Plan Assessment: Sepsis and septic shock is strongly suspected, exact source is unclear but most likely from buttocks and sacral pressure ulcers, recovered Acute hypoxic respiratory failure requiring intubation mechanical ventilation, patient was extubated on 08/18/2023, recovered and on room air Advanced multiple sclerosis Hypotension secondary to sepsis and septic shock requiring pressors initially patient had previous history of positive Pseudomonas and Enterococcus faecalis infection/type History of neurogenic bladder History of stage IV right buttocks ulcers and positive drainage Acute leukocytosis secondary to above, recovered History of hypothyroidism History of dyslipidemia Plan: The patient was seen and evaluated Labs and medications reviewed Stable and on room air Complete a course of antibiotics Transitioned to oral diuretics yesterday Plan is to return to [facility] This patient was seen independently by the pulmonary nurse practitioner addressing pulmonary issues I have personally seen and examined the patient, performed the documentation and the assessment and plan as written. Number of minutes spent on the visit: 24.
[2023-08-24 11:48] LABS: Glucose,Whole Blood 113 mg/dL (70-110)
--- NOTE | 2023-08-24 16:05 | P.PN ---
Subjective Progress Note Date: 08/23/23 Principal diagnosis: Reason for follow up sepsis/pneumonia/UTI Patient is a 53-year-old female past medical history significant for MS this patient has been bedbound residential resident also with a history of hyperlipidemia pneumonia history of chronic bilateral gluteal and sacral pressure ulcer and episodes of osteomyelitis has been brought to the hospital concerning for mental status changes did have worsening respiratory status and up getting intubated chest x-ray with left midlung airspace opacity concerning for pneumonia and urine was positive as well. On today's evaluation that is 08/23/2023,the patient denies any fever or any chills, patient is breathing comfortably on room air, the patient denies chest pain shortness of breath and no significant cough, patient denies abdominal pain, no nausea vomiting or diarrhea. Patient mention feeling better denies pain to bilateral posterior thigh wound area Patient white count is 3.82, creatinine 0.6 Objective - Vital Signs Vital signs: Vital Signs Temp 98.2 F 08/23/23 07:45 Pulse 95 08/23/23 07:45 Resp 19 08/23/23 07:45 BP 122/79 08/23/23 07:45 Pulse Ox 96 08/23/23 09:23 FiO2 30 08/19/23 23:09 Intake & Output 08/22/23 08/23/23 08/23/23 18:59 06:59 18:59 Output Total 4300 2200 3300 Balance -4300 -2200 -3300 Weight 98 kg Output: Urine 4300 2200 3300 Other: Voiding Method Indwelling Catheter Indwelling Catheter # Bowel Movements 0 - Exam GENERAL DESCRIPTION: Middle-aged female lying in bed in no distress RESPIRATORY SYSTEM: Unlabored breathing , decreased breath sounds at bases HEART: S1 S2 regular rate and rhythm , ABDOMEN: Soft , no tenderness EXTREMITIES: Diffuse swelling to bilateral lower extremity redness has improved - Labs CBC & Chem 7: 08/23/23 06:31 08/23/23 06:31 Labs: Abnormal Lab Results - Last 24 Hours (Table) 08/22/23 08/22/23 08/22/23 Range/Units 12:15 16:49 21:33 WBC (4.50-10.00) X 10*3/uL RBC (4.10-5.20) X 10*6/uL Hgb (12.0-15.0) g/dL Hct (37.2-46.3) % MCHC (32.0-37.0) g/dL RDW (11.5-14.5) % BUN/Creatinine Ratio (12.00-20.00) Ratio Glucose (70-110) mg/dL POC Glucose (mg/dL) 118 H 135 H 119 H (70-110) mg/dL AST (13-35) U/L Total Protein (6.2-8.2) g/dL 08/23/23 08/23/23 08/23/23 Range/Units 06:11 06:31 06:31 WBC 3.82 L (4.50-10.00) X 10*3/uL RBC 4.04 L (4.10-5.20) X 10*6/uL Hgb 10.9 L (12.0-15.0) g/dL Hct 35.0 L (37.2-46.3) % MCHC 31.1 L (32.0-37.0) g/dL RDW 16.2 H (11.5-14.5) % BUN/Creatinine Ratio 31.17 H (12.00-20.00) Ratio Glucose 115 H (70-110) mg/dL POC Glucose (mg/dL) 121 H (70-110) mg/dL AST 9 L (13-35) U/L Total Protein 5.9 L (6.2-8.2) g/dL 08/23/23 Range/Units 11:29 WBC (4.50-10.00) X 10*3/uL RBC (4.10-5.20) X 10*6/uL Hgb (12.0-15.0) g/dL Hct (37.2-46.3) % MCHC (32.0-37.0) g/dL RDW (11.5-14.5) % BUN/Creatinine Ratio (12.00-20.00) Ratio Glucose (70-110) mg/dL POC Glucose (mg/dL) 116 H (70-110) mg/dL AST (13-35) U/L Total Protein (6.2-8.2) g/dL Assessment and Plan (1) Pneumonia Status: Acute Code(s): J18.9 - PNEUMONIA, UNSPECIFIED ORGANISM SNOMED Code(s): 934688391 (2) Urinary tract infection Status: Acute Code(s): N39.0 - URINARY TRACT INFECTION, SITE NOT SPECIFIED SNOMED Code(s): 62745705 (3) Leukocytosis Status: Acute Code(s): D72.829 - ELEVATED WHITE BLOOD CELL COUNT, UNSPECIFIED SNOMED Code(s): 682238584 Plan: 1patient presented to hospital with sepsis in this patient who did have a fever tachycardia elevated white count source likely UTI and question of possible pneumonia as the patient did have respiratory failure requiring intubation and evidence of right-sided infiltrate on chest x-ray we will need to cover for resistant gram-positive as well as gram-negative pathogen 2-patient also have a bilateral gluteal pressure ulcer but no significant cellulitis clinically doubt source of this sepsis, local wound care with Aquacel dressing and keep the area of the pressure 3-patient did have resolution of her fever white count normalized culture negative so far 4patient currently being treated with cefepime to continue while inpatient transition to oral antibiotic on discharge Dictation was produced using [employer] dictation software. please excuse any grammatical, word or spelling errors. Time with Patient: Less than 30
--- NOTE | 2023-08-24 16:05 | P.PN ---
Subjective Progress Note Date: 08/22/23 Principal diagnosis: Reason for follow up sepsis/pneumonia/UTI Patient is a 53-year-old female past medical history significant for MS this patient has been bedbound fdc resident also with a history of hyperlipidemia pneumonia history of chronic bilateral gluteal and sacral pressure ulcer and episodes of osteomyelitis has been brought to the hospital concerning for mental status changes did have worsening respiratory status and up getting intubated chest x-ray with left midlung airspace opacity concerning for pneumonia and urine was positive as well. On today's evaluation that is 08/22/2023, patient has been afebrile, patient is breathing comfortably and is currently on 2 L nasal cannula oxygen, patient denies having any significant cough no chest pain shortness of breath, patient denies nausea vomiting or diarrhea and no abdominal pain no new symptoms Patient white count is 5.3 , creatinine is 0.7 Objective - Vital Signs Vital signs: Vital Signs Temp 98.8 F 08/22/23 13:56 Pulse 102 H 08/22/23 13:56 Resp 20 08/22/23 13:56 BP 121/78 08/22/23 13:56 Pulse Ox 97 08/22/23 13:56 FiO2 30 08/19/23 23:09 Intake & Output 08/21/23 08/22/23 08/22/23 18:59 06:59 18:59 Output Total 3800 2000 Balance -3800 -2000 Weight 98 kg Output: Urine 3800 2000 Other: Voiding Method Indwelling Catheter Indwelling Catheter Indwelling Catheter # Bowel Movements 0 - Exam GENERAL DESCRIPTION: Middle-aged female lying in bed in no distress RESPIRATORY SYSTEM: Unlabored breathing , decreased breath sounds at bases HEART: S1 S2 regular rate and rhythm , ABDOMEN: Soft , no tenderness EXTREMITIES: Diffuse swelling to bilateral lower extremity redness has improved Patient bilateral posterior thigh wounds with no slough tissue no redness - Labs CBC & Chem 7: 08/23/23 06:31 08/23/23 06:31 Labs: Abnormal Lab Results - Last 24 Hours (Table) 08/21/23 08/22/23 08/22/23 Range/Units 20:44 04:16 04:16 RBC 3.70 L (4.10-5.20) X 10*6/uL Hgb 10.1 L (12.0-15.0) g/dL Hct 32.7 L (37.2-46.3) % MCHC 30.9 L (32.0-37.0) g/dL RDW 16.3 H (11.5-14.5) % Immature Gran # 0.21 H (0.00-0.04) X 10*3/uL Lymphocytes # 0.68 L (0.90-5.00) X 10*3/uL Sodium 148 H (135-145) mmol/L Anion Gap 12.60 H (4.00-12.00) mmol/L BUN/Creatinine Ratio 26.86 H (12.00-20.00) Ratio POC Glucose (mg/dL) 154 H (70-110) mg/dL 08/22/23 Range/Units 12:15 RBC (4.10-5.20) X 10*6/uL Hgb (12.0-15.0) g/dL Hct (37.2-46.3) % MCHC (32.0-37.0) g/dL RDW (11.5-14.5) % Immature Gran # (0.00-0.04) X 10*3/uL Lymphocytes # (0.90-5.00) X 10*3/uL Sodium (135-145) mmol/L Anion Gap (4.00-12.00) mmol/L BUN/Creatinine Ratio (12.00-20.00) Ratio POC Glucose (mg/dL) 118 H (70-110) mg/dL Assessment and Plan (1) Pneumonia Status: Acute Code(s): J18.9 - PNEUMONIA, UNSPECIFIED ORGANISM SNOMED Code(s): 733841231 (2) Urinary tract infection Status: Acute Code(s): N39.0 - URINARY TRACT INFECTION, SITE NOT SPECIFIED SNOMED Code(s): 09964966 (3) Leukocytosis Status: Acute Code(s): D72.829 - ELEVATED WHITE BLOOD CELL COUNT, UNSPECIFIED SNOMED Code(s): 313060930 Plan: 1patient presented to hospital with sepsis in this patient who did have a fever tachycardia elevated white count source likely UTI and question of possible pneumonia as the patient did have respiratory failure requiring intubation and evidence of right-sided infiltrate on chest x-ray we will need to cover for resistant gram-positive as well as gram-negative pathogen 2-patient also have a bilateral gluteal pressure ulcer but no significant cellulitis clinically doubt source of this sepsis, local wound care with Aquacel dressing and keep the area of the pressure 3-patient did have resolution of her fever white count normalized culture negative so far 4patient to continue with the cefepime and monitor clinical course closely Dictation was produced using [employer] dictation software. please excuse any grammatical, word or spelling errors. Time with Patient: Less than 30
--- NOTE | 2023-08-24 16:06 | P.PN ---
Subjective Progress Note Date: 08/24/23 Principal diagnosis: Reason for follow up sepsis/pneumonia/UTI Patient is a 53-year-old female past medical history significant for MS this patient has been bedbound intermediate resident also with a history of hyperlipidemia pneumonia history of chronic bilateral gluteal and sacral pressure ulcer and episodes of osteomyelitis has been brought to the hospital concerning for mental status changes did have worsening respiratory status and up getting intubated chest x-ray with left midlung airspace opacity concerning for pneumonia and urine was positive as well. On today's evaluation that is 08/24/2023,the patient remains to be afebrile, patient is on room air not requiring supplemental oxygen and denies any shortness of breath no chest pain or cough.Patient denies having any nausea or vomiting, no abdominal pain and no diarrhea has been reported, patient mention feeling better wants to go back No lab draw today blood sputum and urine culture have been negative Objective - Vital Signs Vital signs: Vital Signs Temp 97.8 F 08/24/23 07:31 Pulse 96 08/24/23 07:31 Resp 17 08/24/23 07:31 BP 112/75 08/24/23 07:31 Pulse Ox 97 08/24/23 09:29 FiO2 30 08/19/23 23:09 Intake & Output 08/23/23 08/24/23 08/24/23 18:59 06:59 18:59 Output Total 4900 1500 Balance -4900 -1500 Weight 98 kg 92 kg Output: Urine 4900 1500 Other: Voiding Method Indwelling Catheter Indwelling Catheter - Exam GENERAL DESCRIPTION: Middle-aged female lying in bed in no distress RESPIRATORY SYSTEM: Unlabored breathing , decreased breath sounds at bases HEART: S1 S2 regular rate and rhythm , ABDOMEN: Soft , no tenderness EXTREMITIES: Diffuse swelling to bilateral lower extremity redness has improved - Labs CBC & Chem 7: 08/23/23 06:31 08/23/23 06:31 Labs: Abnormal Lab Results - Last 24 Hours (Table) 08/23/23 08/23/23 08/24/23 Range/Units 16:54 20:36 05:53 POC Glucose (mg/dL) 135 H 136 H 132 H (70-110) mg/dL 08/24/23 Range/Units 11:44 POC Glucose (mg/dL) 113 H (70-110) mg/dL Assessment and Plan (1) Pneumonia Status: Acute Code(s): J18.9 - PNEUMONIA, UNSPECIFIED ORGANISM SNOMED Code(s): 060235059 (2) Urinary tract infection Status: Acute Code(s): N39.0 - URINARY TRACT INFECTION, SITE NOT SPECIFIED SNOMED Code(s): 01813334 (3) Leukocytosis Status: Acute Code(s): D72.829 - ELEVATED WHITE BLOOD CELL COUNT, UNSPECIFIED SNOMED Code(s): 158011906 Plan: 1patient presented to hospital with sepsis in this patient who did have a fever tachycardia elevated white count source likely UTI and question of possible pneumonia as the patient did have respiratory failure requiring intubation and evidence of right-sided infiltrate on chest x-ray we will need to cover for resistant gram-positive as well as gram-negative pathogen 2-patient also have a bilateral gluteal pressure ulcer but no significant cellulitis clinically doubt source of this sepsis, local wound care with Aquacel dressing and keep the area of the pressure 3-patient did have resolution of her fever white count normalized culture negative so far 4patient blood urine and sputum culture have been negative for resistant pathogen we will give a short course of oral Ceftin on discharge discussed with admitting team working on discharge Dictation was produced using [employer] dictation software. please excuse any gr ammatical, word or spelling errors. Time with Patient: Less than 30
[2023-08-24] MEDS ORDERED: LEVOTHYROXINE 75 MCG TAB PO SCH (21:00)
[2023-08-24] MEDS ORDERED: ATORVASTATIN 10 MG TAB PO SCH (21:00)
== END 2023-08-24 13:16 | DRG 720 ==
LOC: EC 17:56 → 2SICU 22:23 → 4SSUR 08-20 17:33
PROVIDERS: ADMIT Hospitalist; ATTEND Hospitalist
PROC: 0BH17EZ Insertion of Endotracheal Airway into Trachea, Via Natural or Artificial Opening (ICD-10-PCS; principal; 2023-08-15)
PROC: 5A1945Z Respiratory Ventilation, 24-96 Consecutive Hours (ICD-10-PCS; principal; 2023-08-15)
PROC: 06HY33Z Insertion of Infusion Device into Lower Vein, Percutaneous Approach (ICD-10-PCS; 2023-08-15)
PROC: 3E043XZ Introduction of Vasopressor into Central Vein, Percutaneous Approach (ICD-10-PCS; 2023-08-15)
PROC: 0D9670Z Drainage of Stomach with Drainage Device, Via Natural or Artificial Opening (ICD-10-PCS; 2023-08-15)
PROC: 3E0G76Z Introduction of Nutritional Substance into Upper GI, Via Natural or Artificial Opening (ICD-10-PCS; 2023-08-16)
PROC: 5A09357 Assistance with Respiratory Ventilation, Less than 24 Consecutive Hours, Continuous Positive Airway Pressure (ICD-10-PCS; 2023-08-19)
DX: A41.9 Sepsis, unspecified organism (principal); J96.01 Acute respiratory failure with hypoxia; R65.21 Severe sepsis with septic shock; J15.9 Unspecified bacterial pneumonia; L89.323 Pressure ulcer of left buttock, stage 3; E87.20 Acidosis, unspecified; F05 Delirium due to known physiological condition; E87.0 Hyperosmolality and hypernatremia; L89.152 Pressure ulcer of sacral region, stage 2; L89.322 Pressure ulcer of left buttock, stage 2; G35 Multiple sclerosis; D50.9 Iron deficiency anemia, unspecified; E03.9 Hypothyroidism, unspecified; L03.115 Cellulitis of right lower limb; L03.116 Cellulitis of left lower limb; E87.70 Fluid overload, unspecified; I51.7 Cardiomegaly; N39.0 Urinary tract infection, site not specified; N31.9 Neuromuscular dysfunction of bladder, unspecified; E78.5 Hyperlipidemia, unspecified; Z79.82 Long term (current) use of aspirin; Z79.891 Long term (current) use of opiate analgesic; Z79.890 Hormone replacement therapy; Z79.899 Other long term (current) drug therapy; Z74.01 Bed confinement status; Z99.3 Dependence on wheelchair; Z86.14 Personal history of Methicillin resistant Staphylococcus aureus infection; Z86.19 Personal history of other infectious and parasitic diseases; Z87.440 Personal history of urinary (tract) infections
CPT/HCPCS: 31500; 36415; 36556; 36600; 51702; 71045; 71046; 80048; 80053; 80202; 81001; 82803; 82805; 83605; 83690; 83735; 84100; 84132; 84145; 84443; 85025; 85610; 85730; 87040; 87070; 87086; 87205; 93005; 94002; 94003; 94640; 94660; 94760; 96361; 96365; 96366; 96367; 96375; 99291

== ENCOUNTER 2023-09-24 09:46 | Inpatient (IN) | payer OTHER ==
--- NOTE | 2023-09-24 10:08 | ED ---
General Adult HPI - General Chief complaint: Skin/Abscess/Foreign Body Stated complaint: AMS Time Seen by Provider: 09/24/23 09:50 Source: patient, EMS, RN notes reviewed, old records reviewed Mode of arrival: EMS Limitations: no limitations - History of Present Illness Initial comments: This was a 53-year-old female who presents to the emergency department from the care home because the patient was more lethargic and had a temperature and they were at the patient was septic. Patient has no complaints of chest pain difficulty breathing or cough. Patient denies any abdominal pain patient has nausea vomiting. Patient has been in multiple times for urinary tract infection and cellulitis of the lower legs. Both legs are red more so on the left than the right according to the staff and the patient was sent in. - Related Data Home Medications Medication Instructions Recorded Confirmed Potassium Chloride ER [K-Dur 20] 20 meq PO BID 01/12/19 09/24/23 Aspirin 81 mg PO DAILY 09/15/19 09/24/23 Sennosides [Senna] 8.6 mg PO BID 01/31/20 09/24/23 Atorvastatin [Lipitor] 10 mg PO HS@199909/22/21 09/24/23 Diroximel Fumarate [Vumerity] 462 mg PO BID@0700,1900 09/22/21 09/24/23 Levothyroxine Sodium [Synthroid] 75 mcg PO DAILY 09/22/21 09/24/23 Ascorbic Acid [Vitamin C] 500 mg PO DAILY 05/14/22 09/24/23 Furosemide [Lasix] 20 mg PO DAILY 05/14/22 09/24/23 Baclofen 10 mg PO TID@0700,1300,1900 12/22/22 09/24/23 Multivitamins, Thera [Multivitamin 1 tab PO DAILY 12/22/22 09/24/23 (formulary)] Folic Acid 0.4 mg PO BID 06/19/23 09/24/23 Naloxone HCl 0.4 mg SQ ONCE PRN 06/19/23 09/24/23 Nitroglycerin Sl Tabs [Nitrostat] 0.4 mg SUBLINGUAL Q5M PRN 06/19/23 09/24/23 Menthol [Icy Hot] 1 patch TRANSDERM DAILY 08/16/23 09/24/23 Artificial Tears-Hypromellose 1 drop BOTH EYES DAILY 09/24/23 09/24/23 [Artificial Tear Drops] Esomeprazole Magnesium [NexIUM] 20 mg PO DAILY 09/24/23 09/24/23 HYDROcodone/APAP 7.5-325MG [Alcalde 1 tab PO QID@07,13,19,23 09/24/23 09/24/23 7.5-325] Naloxone HCl [Narcan] 4 mg NASAL ONCE PRN 09/24/23 09/24/23 Pro-Stat Sugar Free (Amino 30 ml PO DAILY 09/24/23 09/24/23 Acids-Protein Hydrolysate) Previous Rx's Medication Instructions Recorded Gabapentin [Neurontin] 300 mg PO BID@0700,1900 3 Days #6 08/24/23 cap Allergies Allergy/AdvReac Type Severity Reaction Status Date / Time adhesive tape Allergy Rash/Hives Verified 09/24/23 12:51 cinnamon Allergy Rash/Hives Verified 09/24/23 12:51 Review of Systems ROS Statement: Those systems with pertinent positive or pertinent negative responses have been documented in the HPI. ROS Other: All systems not noted in ROS Statement are negative. Past Medical History Past Medical History: Hyperlipidemia, Musculoskeletal Disorder, Neurologic Disorder, Pneumonia, Renal Disease, Skin Disorder Additional Past Medical History / Comment(s): Multiple sclerosis stage IV- wheelchair bound, L side weaker than right, past renal failure with hemodialysis-last time was July 2016, neurogenic bladder with indwelling [place]in, past sepsis, iron deficiency anemia, wounds present on bilateral gluteal folds and sacral area History of Any Multi-Drug Resistant Organisms: ESBL, MRSA, VRE Date of last positivie culture/infection: 06/19/23 MRSA; 06/19/23 ESBL; 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 MDRO Source:: Blood-MRSA; Urine-VRE and ESBL Past Surgical History: No Surgical Hx Reported Additional Past Surgical History / Comment(s): LP, debridement decubitus sacral ulcer, hemodialysis cath since removed, picc lines Past Anesthesia/Blood Transfusion Reactions: No Reported Reaction Additional Past Anesthesia/Blood Transfusion Reaction / Comment(s): NEVER HAD ANY GENERAL ANES Past Psychological History: No Psychological Hx Reported Smoking Status: Never smoker Past Alcohol Use History: None Reported Past Drug Use History: None Reported - Past Family History Father History Unknown: Yes Additional Family Medical History / Comment(s): PTS DAD LIVED IN [place]- SHE'S NOT SURE WHAT HE FROM. HE HAD HYPOTENSION. Mother Family Medical History: Coronary Artery Disease (CAD), Diabetes Mellitus, Hyperlipidemia, Hypertension Additional Family Medical History / Comment(s): CARDIAC STENTS General Exam - General Exam Comments Initial Comments: GENERAL: Patient is well-developed and well-nourished. Patient is nontoxic and well-hydrated and is in mild distress. ENT: Neck is soft and supple. No significant lymphadenopathy is noted. Oropharynx is clear. Moist mucous membranes. Neck has full range of motion without eliciting any pain. EYES: The sclera were anicteric and conjunctiva were pink and moist. Extraocular movements were intact and pupils were equal round and reactive to light. Eyelids were unremarkable. PULMONARY: Unlabored respirations. Good breath sounds bilaterally. No audible rales rhonchi or wheezing was noted. CARDIOVASCULAR: There is a regular rate and rhythm without any murmurs gallops or rubs. ABDOMEN: Soft and nontender with normal bowel sounds. SKIN: Skin is clear with no lesions or rashes and otherwise unremarkable. NEUROLOGIC: Patient is alert and oriented x3. Cranial nerves II through XII are grossly intact. Motor and sensory are also intact. Normal speech, volume and content. Symmetrical smile. MUSCULOSKELETAL: Patient has erythema to the legs bilateral legs more so on the left than the right there is no area of fluctuance or ulceration LYMPHATICS: No significant lymphadenopathy is noted PSYCHIATRIC: Normal psychiatric evaluation. Limitations: no limitations Course Vital Signs 09/24/23 09/24/23 09/24/23 09:49 11:20 11:32 Temperature 100.4 F H 102.0 F H Pulse Rate 125 H 116 H Respiratory 20 18 Rate Blood Pressure 105/56 108/62 O2 Sat by Pulse 93 L 98 Oximetry 09/24/23 09/24/23 11:58 14:25 Temperature 100.1 F H 98.9 F Pulse Rate 103 H Respiratory 20 Rate Blood Pressure 116/50 O2 Sat by Pulse 97 Oximetry Medical Decision Making - Medical Decision Making EKG is interpreted by myself. EKG shows a sinus tachycardia at a rate of 120 bpm with occasional PVC FL interval is 164 QRS is 102 QT interval is 299 QTc is 370. Patient's EKG shows no ST segment elevation or depression. Was pt. sent in by a medical professional or institution (, PA, COUNTER TOP ASSEMBLER, urgent care, hospital, or care home...) When possible be specific @ -Patient was sent to us from the care home. Did you speak to anyone other than the patient for history (EMS, parent, family, police, friend...)? What history was obtained from this source @ -No Did you review nursing and triage notes (agree or disagree)? Why? @ -I reviewed and agree with nursing and triage notes Were old charts reviewed (outside hosp., previous admission, EMS record, old EKG, old radiological studies, urgent care reports/EKG's, care home records)? Report findings @ -No old charts were reviewed Differential Diagnosis? @ -Differential Fever: Pneumonia, viral URI, endocarditis, myocarditis, pericarditis, otitis, sinusit is, peritonsillar Abscess, retropharyngeal Abscess, epiglottitis, peritonitis, appendicitis, Juju cystitis, diverticulitis, hepatitis, colitis, UTI, PID, TOA, pyelonephritis, prostatitis, epididymitis, meningitis, encephalitis, pulmonary embolism, CVA, thyroid storm, pancreatitis, adrenal crisis, cavernous sinus thrombosis, this is not meant to be an all-inclusive list. EKG interpreted by me (3pts min.). @ -As above X-rays interpreted by me (1pt min.). @ -Chest x-ray shows no acute abnormality CT interpreted by me (1pt min.). @ -None done U/S interpreted by me (1pt. min.). @ -None done What testing was considered but not performed or refused? (CT, X-rays, U/S, labs)? Why? @ -None What meds were considered but not given or refused? Why? @ -None Did you discuss the management of the patient with other professionals (professionals i.e. SURINDER Abreu, COUNTER TOP ASSEMBLER, lab, RT, psych nurse, social media job titles, rouge presser, teacher, resident medical officer, casework manager)? Give summary @ -I spoke with Dr. Carlin and he agreed to admit the patient Was smoking cessation discussed for >3mins.? @ -No Was critical care preformed (if so, how long)? @ -No Were there social determinants of health that impacted care today? How? (Charlene elessness, low income, unemployed, alcoholism, drug addiction, transportation, low edu. Level, literacy, decrease access to med. care, senior living, rehab)? @ -No Was there de-escalation of care discussed even if they declined (Discuss DNR or withdrawal of care, Hospice)? DNR status @ -No What co-morbidities impacted this encounter? (DM, HTN, Smoking, COPD, CAD, Cancer, CVA, ARF, Chemo, Hep., AIDS, mental health diagnosis, sleep apnea, morbid obesity)? @ -None Was patient admitted / discharged? Hospital course, mention meds given and route, prescriptions, significant lab abnormalities, going to OR and other pertinent info. @ -Patient was started on Zosyn because the infection was thought to be possibly cellulitis however the urine came back grossly infected so I gave the patient 2 g of Rocephin. I spoke with Dr. Morocho agreed to admit the patient to the patient recommending ORIF Undiagnosed new problem with uncertain prognosis? @ -No Drug Therapy requiring intensive monitoring for toxicity (Heparin, Nitro, Insulin, Cardizem)? @ -No Were any procedures done? @ -No Diagnosis/symptom? @ -Urinary tract infection Acute, or Chronic, or Acute on Chronic? @ -Acute Uncomplicated (without systemic symptoms) or Complicated (systemic symptoms)? @ -Complicated Side effects of treatment? @ -No Exacerbation, Progression, or Severe Exacerbation? @ -No Poses a threat to life or bodily function? How? (Chest pain, [place], [place], pneumonia, PE, COPD, DKA, ARF, appy, cholecystitis, CVA, Diverticulitis, Homicidal, Suicidal, threat to staff... and all critical care pts) @ -No - Lab Data Result diagrams: 09/24/23 11:13 09/24/23 10:12 Lab Results 09/24/23 09/24/23 09/24/23 Range/Units 09:59 10:12 10:12 WBC (3.8-10.6) k/uL RBC (3.80-5.40) m/uL Hgb (11.4-16.0) gm/dL Hct (34.0-46.0) % MCV (80.0-100.0) fL MCH (25.0-35.0) pg MCHC (31.0-37.0) g/dL RDW (11.5-15.5) % Plt Count (150-450) k/uL MPV Neutrophils % % Lymphocytes % % Monocytes % % Eosinophils % % Basophils % % Neutrophils # (1.3-7.7) k/uL Lymphocytes # (1.0-4.8) k/uL Monocytes # (0-1.0) k/uL Eosinophils # (0-0.7) k/uL Basophils # (0-0.2) k/uL Anisocytosis PT (10.0-12.5) sec INR (<1.2) APTT (22.0-30.0) sec Sodium 141 (137-145) mmol/L Potassium 4.4 (3.5-5.1) mmol/L Chloride 107 (98-107) mmol/L Carbon Dioxide 27 (22-30) mmol/L Anion Gap 7 mmol/L BUN 17 (7-17) mg/dL Creatinine 0.63 (0.52-1.04) mg/dL Est GFR (CKD-EPI)AfAm >90 (>60 ml/min/1.73 sqM) Est GFR (CKD-EPI)NonAf >90 (>60 ml/min/1.73 sqM) Glucose 125 H (74-99) mg/dL Plasma Lactic Acid Armando 0.8 (0.7-2.0) mmol/L Calcium 9.2 (8.4-10.2) mg/dL Total Bilirubin 0.8 (0.2-1.3) mg/dL AST 15 (14-36) U/L ALT 17 (4-34) U/L Alkaline Phosphatase 85 (38-126) U/L Total Protein 6.3 (6.3-8.2) g/dL Albumin 3.8 (3.5-5.0) g/dL Urine Color Light Reeves Urine Appearance Turbid H (Clear) Urine pH 7.5 (5.0-8.0) Ur Specific [place] 1.013 (1.001-1.035) Urine Protein 2+ H (Negative) Urine Glucose (UA) Negative (Negative) Urine Ketones Negative (Negative) Urine Blood Moderate H (Negative) Urine Nitrite Negative (Negative) Urine Bilirubin Negative (Negative) Urine Urobilinogen <2.0 (<2.0) mg/dL Ur Leukocyte Esterase Large H (Negative) Urine RBC >182 H (0-5) /hpf Urine WBC >182 H (0-5) /hpf Urine WBC Clumps Many H (None) /hpf Ur Squamous Epith Cells (0-4) /hpf Urine Bacteria Many H (None) /hpf Influenza Type A (PCR) (Not Detectd) Influenza Type B (PCR) (Not Detectd) RSV (PCR) (Not Detectd) SARS-CoV-2 (PCR) (Not Detectd) 09/24/23 09/24/23 09/24/23 Range/Units 10:12 11:13 11:13 WBC 8.5 (3.8-10.6) k/uL RBC 3.93 (3.80-5.40) m/uL Hgb 10.6 L (11.4-16.0) gm/dL Hct 33.7 L (34.0-46.0) % MCV 85.7 (80.0-100.0) fL MCH 26.9 (25.0-35.0) pg MCHC 31.4 (31.0-37.0) g/dL RDW 16.1 H (11.5-15.5) % Plt Count 346 D (150-450) k/uL MPV 7.3 Neutrophils % 89 % Lymphocytes % 6 % Monocytes % 3 % Eosinophils % 1 % Basophils % 0 % Neutrophils # 7.6 (1.3-7.7) k/uL Lymphocytes # 0.5 L (1.0-4.8) k/uL Monocytes # 0.2 (0-1.0) k/uL Eosinophils # 0.1 (0-0.7) k/uL Basophils # 0.0 (0-0.2) k/uL Anisocytosis Slight PT 11.1 (10.0-12.5) sec INR 1.0 (<1.2) APTT 26.3 (22.0-30.0) sec Sodium (137-145) mmol/L Potassium (3.5-5.1) mmol/L Chloride (98-107) mmol/L Carbon Dioxide (22-30) mmol/L Anion Gap mmol/L BUN (7-17) mg/dL Creatinine (0.52-1.04) mg/dL Est GFR (CKD-EPI)AfAm (>60 ml/min/1.73 sqM) Est GFR (CKD-EPI)NonAf (>60 ml/min/1.73 sqM) Glucose (74-99) mg/dL Plasma Lactic Acid Armando (0.7-2.0) mmol/L Calcium (8.4-10.2) mg/dL Total Bilirubin (0.2-1.3) mg/dL AST (14-36) U/L ALT (4-34) U/L Alkaline Phosphatase (38-126) U/L Total Protein (6.3-8.2) g/dL Albumin (3.5-5.0) g/dL Urine Color Urine Appearance (Clear) Urine pH (5.0-8.0) Ur Specific [place] (1.001-1.035) Urine Protein (Negative) Urine Glucose (UA) (Negative) Urine Ketones (Negative) Urine Blood (Negative) Urine Nitrite (Negative) Urine Bilirubin (Negative) Urine Urobilinogen (<2.0) mg/dL Ur Leukocyte Esterase (Negative) Urine RBC (0-5) /hpf Urine WBC (0-5) /hpf Urine WBC Clumps (None) /hpf Ur Squamous Epith Cells (0-4) /hpf Urine Bacteria (None) /hpf Influenza Type A (PCR) Not Detected (Not Detectd) Influenza Type B (PCR) Not Detected (Not Detectd) RSV (PCR) Not Detected (Not Detectd) SARS-CoV-2 (PCR) Not Detected (Not Detectd) 09/24/23 Range/Units 13:23 WBC (3.8-10.6) k/uL RBC (3.80-5.40) m/uL Hgb (11.4-16.0) gm/dL Hct (34.0-46.0) % MCV (80.0-100.0) fL MCH (25.0-35.0) pg MCHC (31.0-37.0) g/dL RDW (11.5-15.5) % Plt Count (150-450) k/uL MPV Neutrophils % % Lymphocytes % % Monocytes % % Eosinophils % % Basophils % % Neutrophils # (1.3-7.7) k/uL Lymphocytes # (1.0-4.8) k/uL Monocytes # (0-1.0) k/uL Eosinophils # (0-0.7) k/uL Basophils # (0-0.2) k/uL Anisocytosis PT (10.0-12.5) sec INR (<1.2) APTT (22.0-30.0) sec Sodium (137-145) mmol/L Potassium (3.5-5.1) mmol/L Chloride (98-107) mmol/L Carbon Dioxide (22-30) mmol/L Anion Gap mmol/L BUN (7-17) mg/dL Creatinine (0.52-1.04) mg/dL Est GFR (CKD-EPI)AfAm (>60 ml/min/1.73 sqM) Est GFR (CKD-EPI)NonAf (>60 ml/min/1.73 sqM) Glucose (74-99) mg/dL Plasma Lactic Acid Armando (0.7-2.0) mmol/L Calcium (8.4-10.2) mg/dL Total Bilirubin (0.2-1.3) mg/dL AST (14-36) U/L ALT (4-34) U/L Alkaline Phosphatase (38-126) U/L Total Protein (6.3-8.2) g/dL Albumin (3.5-5.0) g/dL Urine Color Yellow Urine Appearance Turbid H (Clear) Urine pH 6.0 (5.0-8.0) Ur Specific [place] 1.020 (1.001-1.035) Urine Protein 2+ H (Negative) Urine Glucose (UA) Negative (Negative) Urine Ketones Negative (Negative) Urine Blood Moderate H (Negative) Urine Nitrite Negative (Negative) Urine Bilirubin Negative (Negative) Urine Urobilinogen <2.0 (<2.0) mg/dL Ur Leukocyte Esterase Large H (Negative) Urine RBC >182 H (0-5) /hpf Urine WBC >182 H (0-5) /hpf Urine WBC Clumps Many H (None) /hpf Ur Squamous Epith Cells 9 H (0-4) /hpf Urine Bacteria Rare H (None) /hpf Influenza Type A (PCR) (Not Detectd) Influenza Type B (PCR) (Not Detectd) RSV (PCR) (Not Detectd) SARS-CoV-2 (PCR) (Not Detectd) Disposition Clinical Impression: Urinary tract infection Disposition: ADMITTED IP TO THIS HOSP Referrals: Brianne Gomez DO [Primary Care Provider] - 1-2 days Time of Disposition: 14:42
[2023-09-24] MEDS: ACETAMINOPHEN TAB 500 MG TAB PO STA (10:30)
[2023-09-24] MEDS: IBUPROFEN 600 MG TAB PO STA (10:30)
[2023-09-24 10:35] LABS: ALT 17 U/L (4-34); AST 15 U/L (14-36); African American GFR (CKD) >90 (>60 ml/min/1.73 sqM); Albumin 3.8 g/dL (3.5-5.0); Alkaline Phosphatase 85 U/L (38-126); Anion Gap 7 mmol/L; Blood Urea Nitrogen 17 mg/dL (7-17); Calcium 9.2 mg/dL (8.4-10.2); Carbon Dioxide 27 mmol/L (22-30); Chloride 107 mmol/L (98-107); Glucose 125 mg/dL (74-99); Non-African American GFR(CKD) >90 (>60 ml/min/1.73 sqM); Potassium 4.4 mmol/L (3.5-5.1); Sodium 141 mmol/L (137-145); Total Bilirubin 0.8 mg/dL (0.2-1.3); Total Protein 6.3 g/dL (6.3-8.2)
--- NOTE | 2023-09-24 10:44 | XR ---
EXAMINATION TYPE: XR chest 1V portable DATE OF EXAM: 09/24/2023 COMPARISON: 08/22/2023 HISTORY: Fever TECHNIQUE: Single frontal view of the chest is obtained. FINDINGS: Diffuse interstitial pattern with basilar subsegmental consolidation and tiny left pleural effusion. Heart is enlarged. Osseous structures stable. No pneumothorax. IMPRESSION: Mild diffuse interstitial pattern correlate for interstitial pneumonia versus venous con gestion. Findings stable.
[2023-09-24] MEDS: PIPERACILLIN-TAZOBACTAM 3.375 GM in SODIUM CHLORIDE 0.9% 100 ML IVPB STA (11:17)
[2023-09-24] MEDS: SODIUM CHLORIDE 0.9% 500 ML 500 ML IV SCH (11:18)
[2023-09-24 11:22] LABS: Appearance,Urine Turbid (Clear); Bacteria,Urine Many /hpf; Bilirubin,Urine Negative (Negative); Blood,Urine Moderate (Negative); Color,Urine Light Orange; Glucose,Urine (UA) Negative (Negative); Ketones,Urine Negative (Negative); Leukocyte Esterase,Urine Large (Negative); Nitrite,Urine Negative (Negative); PH, Urine 7.5 (5.0-8.0); Protein,Urine 2+ (Negative); RBC,Urine >182 /hpf (0-5); Urobilinogen,Urine <2.0 mg/dL (<2.0); WBC,Urine >182 /hpf (0-5)
[2023-09-24 11:32] LABS: Partial Thromboplastin Time 26.3 sec (22.0-30.0); Prothrombin Time 11.1 sec (10.0-12.5)
[2023-09-24 11:33] LABS: Specific Gravity,Urine 1.013 (1.001-1.035)
[2023-09-24 11:45] LABS: Anisocytosis Slight; Basophils % (A) 0 %; Eosinophils # (A) 0.1 k/uL (0-0.7); Eosinophils % (A) 1 %; HCT 33.7 % (34.0-46.0); HGB 10.6 gm/dL (11.4-16.0); Lymphocytes # (A) 0.5 k/uL (1.0-4.8); Lymphocytes % (A) 6 %; MCH 26.9 pg (25.0-35.0); MCHC 31.4 g/dL (31.0-37.0); MCV 85.7 fL (80.0-100.0); Mean Platelet Volume 7.3; Monocytes # (A) 0.2 k/uL (0-1.0); Monocytes % (A) 3 %; Neutrophils # (A) 7.6 k/uL (1.3-7.7); Neutrophils % (A) 89 %; RBC 3.93 m/uL (3.80-5.40); RDW 16.1 % (11.5-15.5); WBC 8.5 k/uL (3.8-10.6)
[2023-09-24 11:47] LABS: Platelet Count 346 k/uL (150-450)
[2023-09-24 14:25] LABS: Appearance,Urine Turbid (Clear); Bacteria,Urine Rare /hpf; Bilirubin,Urine Negative (Negative); Blood,Urine Moderate (Negative); Color,Urine Yellow; Glucose,Urine (UA) Negative (Negative); Ketones,Urine Negative (Negative); Leukocyte Esterase,Urine Large (Negative); Nitrite,Urine Negative (Negative); Protein,Urine 2+ (Negative); RBC,Urine >182 /hpf (0-5); Squamous Epithelial Cell,Urine 9 /hpf (0-4); Urobilinogen,Urine <2.0 mg/dL (<2.0); WBC,Urine >182 /hpf (0-5)
[2023-09-24] MEDS: cefTRIAXone IN SWFI 1,000 MG/10 ML SYRINGE IVP STA (14:44)
[2023-09-24] MEDS: SODIUM CHLORIDE 0.9% 1,000 ML IV ONE (14:50)
--- NOTE | 2023-09-24 16:21 | US ---
EXAMINATION TYPE: US renals and bladder DATE OF EXAM: 09/24/2023 COMPARISON: 10/18/2021 CLINICAL INDICATION: Female, 53 years old with history of uti; Hx renal failure with dialysis in 2017 ; Neurogenic bladder with [place] EXAM MEASUREMENTS: Right Kidney: 11.6 x 5.0 x 4.7 cm Left Kidney: 13.3 x 5.3 x 4.3 cm Post Void Residual Volume: NA mL Right Kidney: ? Stones seen , no hydronephrosis Left Kidney: ? Atrophic, stones seen? , No hydronephrosis Bladder: Not distended Bilateral Jets seen: Not able to assess Normal Post Void Residual: NA Difficult exam due to patient body habitus IMPRESSION: 1. No evidence for obstructive uropathy. 2. Bilateral nonobstructing renal calculi suggested.
--- NOTE | 2023-09-24 19:07 | P.HPIM ---
History of Present Illness This is a pleasant 53 years old female with past medical history of hyperlipidemia, multiple sclerosis stage IV, generalized weakness left side more than right. With chronic Austin catheter. Presents because of fever. Patient states she has some burning in the urine earlier No pain. No flank pain or CVA tenderness. Patient does not walk. No vomiting no diarrhea. Abdomen soft Her left leg is also swollen. Red and not painful. Patient has neurogenic bladder with indwelling Austin catheter which was exchanged in the emergency room On admission patient had fever of 102 No leukocytosis. Rest of labs were unremarkable including CBC, INR, BMP, LFT, vitals check EKG showing sinus tachycardia at 120 Chest x-ray showing mild interstitial opacities which could be interstitial pneumonia versus fluid. Patient started on antibiotics and IV fluid in the emergency room Past Medical History Past Medical History: Hyperlipidemia, Musculoskeletal Disorder, Neurologic Disorder, Pneumonia, Renal Disease, Skin Disorder Additional Past Medical History / Comment(s): Multiple sclerosis stage IV- wheelchair bound, L side weaker than right, past renal failure with hemodi alysis-last time was July 2016, neurogenic bladder with indwelling austin, past sepsis, iron deficiency anemia, wounds present on bilateral gluteal folds and sacral area History of Any Multi-Drug Resistant Organisms: ESBL, MRSA, VRE Date of last positivie culture/infection: 06/19/23 MRSA; 06/19/23 ESBL; 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 MDRO Source:: Blood-MRSA; Urine-VRE and ESBL Past Surgical History: No Surgical Hx Reported Additional Past Surgical History / Comment(s): LP, debridement decubitus sacral ulcer, hemodialysis cath since removed, picc lines Past Anesthesia/Blood Transfusion Reactions: No Reported Reaction Additional Past Anesthesia/Blood Transfusion Reaction / Comment(s): NEVER HAD ANY GENERAL ANES Past Psychological History: No Psychological Hx Reported Additional Psychological History / Comment(s): Pt resides at [facility]. She states she is mostly wheelchair bound-sit to stand device to chair. She has an IDC. Pt feeds herself. Smoking Status: Never smoker Past Alcohol Use History: None Reported Additional Past Alcohol Use History / Comment(s): Patient is a lifelong nonsmoker. She denies any alcohol abuse. Past Drug Use History: None Reported - Past Family History Father History Unknown: Yes Additional Family Medical History / Comment(s): PTS DAD LIVED IN [place]- SHE'S NOT SURE WHAT HE FROM. HE HAD HYPOTENSION. Mother Family Medical History: Coronary Artery Disease (CAD), Diabetes Mellitus, Hyperlipidemia, Hypertension Additional Family Medical History / Comment(s): CARDIAC STENTS Medications and Allergies Home Medications Medication Instructions Recorded Confirmed Type Potassium Chloride ER [K-Dur 20] 20 meq PO BID 01/12/19 09/24/23 History Aspirin 81 mg PO DAILY 09/15/19 09/24/23 History Sennosides [Senna] 8.6 mg PO BID 01/31/20 09/24/23 History Atorvastatin [Lipitor] 10 mg PO HS@199909/22/21 09/24/23 History Diroximel Fumarate [Vumerity] 462 mg PO BID@0700,1900 09/22/21 09/24/23 History Levothyroxine Sodium [Synthroid] 75 mcg PO DAILY 09/22/21 09/24/23 History Ascorbic Acid [Vitamin C] 500 mg PO DAILY 05/14/22 09/24/23 History Furosemide [Lasix] 20 mg PO DAILY 05/14/22 09/24/23 History Baclofen 10 mg PO TID@0700,1300,1900 12/22/22 09/24/23 History Multivitamins, Thera [Multivitamin 1 tab PO DAILY 12/22/22 09/24/23 History (formulary)] Folic Acid 0.4 mg PO BID 06/19/23 09/24/23 History Naloxone HCl 0.4 mg SQ ONCE PRN 06/19/23 09/24/23 History Nitroglycerin Sl Tabs [Nitrostat] 0.4 mg SUBLINGUAL Q5M PRN 06/19/23 09/24/23 History Menthol [Icy Hot] 1 patch TRANSDERM DAILY 08/16/23 09/24/23 History Gabapentin [Neurontin] 300 mg PO BID@0700,1900 3 Days #6 08/24/23 09/24/23 Rx cap Artificial Tears-Hypromellose 1 drop BOTH EYES DAILY 09/24/23 09/24/23 History [Artificial Tear Drops] Esomeprazole Magnesium [NexIUM] 20 mg PO DAILY 09/24/23 09/24/23 History HYDROcodone/APAP 7.5-325MG [[place] 1 tab PO QID@07,,,23 09/24/23 09/24/23 History 7.5-325] Naloxone HCl [Narcan] 4 mg NASAL ONCE PRN 09/24/23 09/24/23 History Pro-Stat Sugar Free (Amino 30 ml PO DAILY 09/24/23 09/24/23 History Acids-Protein Hydrolysate) Allergies Allergy/AdvReac Type Severity Reaction Status Date / Time adhesive tape Allergy Rash/Hives Verified 09/24/23 12:51 cinnamon Allergy Rash/Hives Verified 09/24/23 12:51 Physical Exam Vitals: Vital Signs Temp Pulse Resp BP Pulse Ox 09/24/23 17:06 98.3 F 105 H 18 102/50 96 09/24/23 14:25 98.9 F 103 H 20 116/50 97 09/24/23 11:58 100.1 F H 09/24/23 11:32 116 H 18 108/62 98 09/24/23 11:20 102.0 F H 09/24/23 09:49 100.4 F H 125 H 20 105/56 93 L Intake and Output 09/24/23 09/24/23 09/24/23 06:59 14:59 22:59 Output Total 10 100 Balance -10 -100 Output: Urine 10 100 Uretheral (Austin) 10 Other: Weight 115.212 kg 115.212 kg GENERAL: The patient is alert and oriented x3, not in any acute distress. Well developed, well nourished. HEENT: Pupils are round and equally reacting to light. EOMI. No scleral icterus. No conjunctival pallor. Normocephalic, atraumatic. No pharyngeal erythema. No thyromegaly. CARDIOVASCULAR: S1 and S2 present. No murmurs, rubs, or gallops. PULMONARY: Chest is clear to auscultation, no wheezing , no crackles. -ABDOMEN: Soft, nontender, nondistended, normoactive bowel sounds. No palpable organomegaly. Indwelling Austin catheter MUSCULOSKELETAL: No joint swelling or deformity. -EXTREMITIES: No cyanosis, clubbing, or pedal edema. Left leg is red swollen and nontender NEUROLOGICAL: Gross neurological examination did not reveal any focal deficits. SKIN: No rashes. no petechiae. Results CBC & Chem 7: 09/24/23 11:13 09/24/23 10:12 Labs: Abnormal Lab Results - Last 24 Hours (Table) 09/24/23 09/24/23 09/24/23 Range/Units 09:59 10:12 11:13 Hgb 10.6 L (11.4-16.0) gm/dL Hct 33.7 L (34.0-46.0) % RDW 16.1 H (11.5-15.5) % Lymphocytes # 0.5 L (1.0-4.8) k/uL Glucose 125 H (74-99) mg/dL Urine Appearance Turbid H (Clear) Urine Protein 2+ H (Negative) Urine Blood Moderate H (Negative) Ur Leukocyte Esterase Large H (Negative) Urine RBC >182 H (0-5) /hpf Urine WBC >182 H (0-5) /hpf Urine WBC Clumps Many H (None) /hpf Ur Squamous Epith Cells (0-4) /hpf Urine Bacteria Many H (None) /hpf 09/24/23 Range/Units 13:23 Hgb (11.4-16.0) gm/dL Hct (34.0-46.0) % RDW (11.5-15.5) % Lymphocytes # (1.0-4.8) k/uL Glucose (74-99) mg/dL Urine Appearance Turbid H (Clear) Urine Protein 2+ H (Negative) Urine Blood Moderate H (Negative) Ur Leukocyte Esterase Large H (Negative) Urine RBC >182 H (0-5) /hpf Urine WBC >182 H (0-5) /hpf Urine WBC Clumps Many H (None) /hpf Ur Squamous Epith Cells 9 H (0-4) /hpf Urine Bacteria Rare H (None) /hpf Assessment and Plan Assessment: Acute complicated UTI associated with indwelling Austin catheter Possible left leg cellulitis Bilateral pulmonary interstitial pneumonitis versus fluid Sepsis secondary to above Neurogenic bladder with urinary retention, chronic. S/p indwelling Austin catheter Hyperlipidemia Multiple sclerosis stage IV Generalized weakness, left more than right Plan: Continue with antibiotic, currently ceftriaxone Infectious disease consult Austin catheter was exchanged in emergency room per report Continue IV hydration normal saline Resume aspirin Check ultrasound of the legs Labs and medication were reviewed.. Continue same treatment. Continue with symptomatic treatment. Resume home medication. Monitor labs and vitals. DVT and GI prophylaxis. Further recommendations as per clinical course of the patient DVT prophylaxis: Subcutaneous heparin GI Prophylaxis: Protonix Prognosis is guarded
--- NOTE | 2023-09-24 20:12 | US ---
EXAMINATION TYPE: US venous doppler duplex LE BI DATE OF EXAM: 09/24/2023 7:05 PM COMPARISON: 07/13/2023 CLINICAL INDICATION: Female, 53 years old with history of leg swelling; Swelling. Bilateral lower le g redness. SIDE PERFORMED: Bilateral TECHNIQUE: The lower extremity deep venous system is examined utilizing real time linear array sonog jake with graded compression, doppler sonography and color-flow sonography. VESSELS IMAGED: Common Femoral Vein Deep Femoral Vein Greater Saphenous Vein * Femoral Vein Popliteal Vein- limited bilaterally Small Saphenous Vein * Proximal Calf Veins- not visualized bilaterally (* superficial vessels) Extremely limited due to patient body habitus and unable to apply pressures posterior knee Right Leg: Negative for acute DVT within portions seen. Positive SVT in upper GSV vein. Unable to obtain popliteal doppler pictures due to patient tolerance. Left Leg: Negative for acute DVT within portions seen. Unable to obtain popliteal doppler pictures d ue to patient tolerance. IMPRESSION: 1. No evidence for deep vein tendinosis. 2. Right superficial thrombophlebitis of the greater saphenous vein 3. Limited evaluation of the left popliteal fossa.
[2023-09-24] MEDS: SENNOSIDES 8.6 MG TAB PO SCH (20:16)
[2023-09-24] MEDS: HYDROcodone/APAP 7.5-325MG 1 EACH TAB PO PRN (20:16)
[2023-09-24] MEDS: BACLOFEN 10 MG TAB PO SCH (20:16)
[2023-09-24] MEDS: ATORVASTATIN 10 MG TAB PO SCH (20:17)
[2023-09-24] MEDS: GABAPENTIN 300 MG CAP PO SCH (20:17)
[2023-09-24] MEDS: HEPARIN SODIUM,PORCINE 5,000 UNIT/ML 1 ML VIAL SQ SCH (20:17)
[2023-09-24] MEDS: SODIUM CHLORIDE 0.9% 1,000 ML IV SCH (20:29)
[2023-09-25] MEDS: PANTOPRAZOLE 40 MG TABLET PO SCH (06:26)
[2023-09-25] MEDS: LEVOTHYROXINE 75 MCG TAB PO SCH (08:26)
[2023-09-25] MEDS: ASPIRIN 81 MG PO SCH (08:26)
[2023-09-25 09:31] LABS: Basophils # (A) 0.02 X 10*3/uL (0.00-0.10); Basophils % (A) 0.5 %; Eosinophils # (A) 0.21 X 10*3/uL (0.04-0.35); Eosinophils % (A) 4.8 %; HCT 32.5 % (37.2-46.3); HGB 9.9 g/dL (12.0-15.0); Lymphocytes # (A) 0.42 X 10*3/uL (0.90-5.00); Lymphocytes % (A) 9.5 %; MCH 26.5 pg (27.0-32.0); MCHC 30.5 g/dL (32.0-37.0); MCV 87.1 FL (80.0-97.0); Mean Platelet Volume 9.4 FL (9.5-12.2); Monocytes # (A) 0.22 X 10*3/uL (0.20-1.00); NRBC Per 100 WBC 0 X 10*3/uL (0.00-0.01); Neutrophils # (A) 3.52 X 10*3/uL (1.80-7.70); Neutrophils % (A) 79.7 %; Platelet Count 282 X 10*3/uL (140-440); RBC 3.73 X 10*6/uL (4.10-5.20); RDW 16.7 % (11.5-14.5); WBC 4.41 X 10*3/uL (4.50-10.00)
[2023-09-25 09:33] LABS: NT-Pro-B-Type Natriuretic Pept 736 pg/mL (0-125)
[2023-09-25 09:34] LABS: BUN/Creat Ratio 18.71 Ratio (12.00-20.00); Blood Urea Nitrogen 13.1 mg/dL (9.0-27.0); Calcium 8.5 mg/dL (8.7-10.3); Carbon Dioxide 23.5 mmol/L (21.6-31.8); Chloride 106 mmol/L (96-109); Glucose 103 mg/dL (70-110); Potassium 3.7 mmol/L (3.5-5.5); Sodium 144 mmol/L (135-145)
[2023-09-25] MEDS: ARTIFICIAL TEARS-HYPROMELLOSE DROPS 15 ML BTL BOTH EYES SCH (10:24)
--- NOTE | 2023-09-25 12:53 | P.PN ---
Subjective This is a pleasant 53 years old female with past medical history of hyperlipidemia, multiple sclerosis stage IV, generalized weakness left side more than right. With chronic Chaves catheter. Presents because of fever. Patient states she has some burning in the urine earlier No pain. No flank pain or CVA tenderness. Patient does not walk. No vomiting no diarrhea. Abdomen soft Her left leg is also swollen. Red and not painful. Patient has neurogenic bladder with indwelling Chaves catheter which was exchanged in the emergency room On admission patient had fever of 102 No leukocytosis. Rest of labs were unremarkable including CBC, INR, BMP, LFT, vitals check EKG showing sinus tachycardia at 120 Chest is showing mild interstitial opacities which could be interstitial pneumonia versus fluid. Patient started on antibiotics and IV fluid in the emergency room 09/25/23 Patient looks comfortable, no new symptom No chest pain No suprapubic pain or tenderness New Chaves catheter in place She is eating well and getting normal saline 75 mL/h She has bilateral leg swelling, at baseline she cannot move the left leg at all only little flickering, she can move the right lower extremity but not against gravity. She is afebrile, WBC is 4.4 Patient remains on ceftriaxone Urine culture is pending Possibly patient also with left leg cellulitis Objective - Vital Signs Vital signs: Vital Signs Temp 98.1 F 09/25/23 06:58 Pulse 99 09/25/23 06:58 Resp 17 09/25/23 06:58 BP 125/78 09/25/23 06:58 Pulse Ox 94 L 09/25/23 06:58 FiO2 Intake & Output 09/24/23 09/25/23 09/25/23 18:59 06:59 18:59 Intake Total 225 Output Total 110 1200 Balance -110 -975 Weight 115.212 kg Intake: Intake, IV Titration 225 Amount Sodium Chloride 0.9% 1, 225 000 ml @ 75 mls/hr IV . [id number] [facility] Rx#:[id number] Output: Urine 110 1200 Uretheral (Chaves) 10 Other: Voiding Method Indwelling Catheter Indwelling Catheter # Bowel Movements 1 - Exam GENERAL: The patient is alert and oriented x3, not in any acute distress. Well developed, well nourished. HEENT: Pupils are round and equally reacting to light. EOMI. No scleral icterus. No conjunctival pallor. Normocephalic, atraumatic. No pharyngeal erythema. No thyromegaly. CARDIOVASCULAR: S1 and S2 present. No murmurs, rubs, or gallops. PULMONARY: Chest is clear to auscultation, no wheezing , no crackles. -ABDOMEN: Soft, nontender, nondistended, normoactive bowel sounds. No palpable organomegaly. Chaves catheter in place MUSCULOSKELETAL: No joint swelling or deformity. -EXTREMITIES: No cyanosis, clubbing, bilateral pitting leg edema, more on the left side NEUROLOGICAL: Cranial nerves are grossly intact. Paraplegia at baseline. SKIN: No rashes. no petechiae. - Labs CBC & Chem 7: 09/25/23 06:38 09/25/23 06:38 Labs: Abnormal Lab Results - Last 24 Hours (Table) 09/24/23 09/25/23 09/25/23 Range/Units 13:23 06:38 06:38 WBC 4.41 L (4.50-10.00) X 10*3/uL RBC 3.73 L (4.10-5.20) X 10*6/uL Hgb 9.9 L (12.0-15.0) g/dL Hct 32.5 L (37.2-46.3) % MCH 26.5 L (27.0-32.0) pg MCHC 30.5 L (32.0-37.0) g/dL RDW 16.7 H (11.5-14.5) % MPV 9.4 L (9.5-12.2) FL Lymphocytes # 0.42 L (0.90-5.00) X 10*3/uL Anion Gap 14.50 H (4.00-12.00) mmol/L Calcium 8.5 L (8.7-10.3) mg/dL NT-Pro-B Natriuret Pep 736 H (0-125) pg/mL Urine Appearance Turbid H (Clear) Urine Protein 2+ H (Negative) Urine Blood Moderate H (Negative) Ur Leukocyte Esterase Large H (Negative) Urine RBC >182 H (0-5) /hpf Urine WBC >182 H (0-5) /hpf Urine WBC Clumps Many H (None) /hpf Ur Squamous Epith Cells 9 H (0-4) /hpf Urine Bacteria Rare H (None) /hpf Assessment and Plan Assessment: Acute complicated UTI associated with indwelling Chaves catheter Possible left leg cellulitis Bilateral pulmonary interstitial pneumonitis versus fluid Sepsis secondary to above Neurogenic bladder with urinary retention, chronic. S/p indwelling Chaves [address] ter Hyperlipidemia Multiple sclerosis stage IV Generalized weakness, left more than right Plan: Continue with antibiotic, currently ceftriaxone Infectious disease consult Chaves catheter was exchanged in emergency room per report Discontinue normal saline Resume aspirin ultrasound of the legs reviewed Labs and medication were reviewed.. Continue same treatment. Continue with symptomatic treatment. Resume home medication. Monitor labs and vitals. DVT and GI prophylaxis. Further recommendations as per clinical course of the patient DVT prophylaxis: Subcutaneous heparin GI Prophylaxis: Protonix Prognosis is guarded
[2023-09-25] MEDS: CEFEPIME 2 GM in SODIUM CHLORIDE 0.9% 100 ML IVPB SCH (15:38)
[2023-09-25] MEDS: HEPARIN SODIUM,PORCINE 5,000 UNIT/ML 1 ML VIAL SQ SCH (15:38)
--- NOTE | 2023-09-25 22:54 | P.CONS ---
History of Present Illness - Reason for Consult Consult date: 09/25/23 Urinary tract infection Requesting physician: Michael E Sheet - Chief Complaint Fever x 1 day - History of Present Illness Patient is a 53-year-old female with a past medical history negative for MS in this patient who is a bedbound did have a history of chronic pressure ulcer to bilateral upper thigh and sacral area did have a chronic indwelling Austin catheter for retention history of recurrent UTI patient Austin catheter was changed about a week ago and the patient has not been brought to the hospital from the [facility] yesterday morning regarding fever and the patient was more lethargic pending the patient fevers started the day of presentation to the hospital did have some rigors and chills with the patient denies having any headache or URI symptoms no chest pain shortness of breath or cough patient denies any abdominal pain or any diarrhea patient also noticed to have more swelling to the left lower extremity however denies have any worsening pain in the patient Austin catheter has been changed in the ER on presentation to the hospital patient did have a fever of 102 degrees following right patient was tachycardic but not hypotensive or hypoxic and no need for supplemental oxygen patient did have a white count of 8.5 creatinine 0.63 urine has been positive influenza RSV COVID testing has been negative patient did have venous Doppler that was negative for DVT chest x-ray mild diffuse interstitial pattern correlate for interstitial pneumonia/congestion renal ultrasound no evidence for obstructive uropathy bilateral nonobstructing renal calculus patient has been started on Rocephin infectious disease was consulted for further management of antibiotic therapy interestingly patient admitted hospital for UTI with sepsis but no urine cultures were done Review of Systems Positive point and negatives has been mentioned in the HPI, complete review of systems was performed and all other systems are negative Past Medical History Past Medical History: Hyperlipidemia, Musculoskeletal Disorder, Neurologic Disorder, Pneumonia, Renal Disease, Skin Disorder Additional Past Medical History / Comment(s): Multiple sclerosis stage IV- wheelchair bound, L side weaker than right, past renal failure with hemodialysis-last time was July 2016, neurogenic bladder with indwelling austin, past sepsis, iron deficiency anemia, wounds present on bilateral gluteal folds and sacral area History of Any Multi-Drug Resistant Organisms: ESBL, MRSA, VRE Year Discovered:: 06/19/23 MRSA; 06/19/23 ESBL; 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 MDRO Source:: Blood-MRSA; Urine-VRE and ESBL Past Surgical History: No Surgical Hx Reported Additional Past Surgical History / Comment(s): LP, debridement decubitus sacral ulcer, hemodialysis cath since removed, picc lines Past Anesthesia/Blood Transfusion Reactions: No Reported Reaction Additional Past Anesthesia/Blood Transfusion Reaction / Comm: NEVER HAD ANY GENERAL ANES Past Psychological History: No Psychological Hx Reported Additional Psychological History / Comment(s): Pt resides at [facility]. She states she is mostly wheelchair bound-sit to stand device to chair. She has an IDC. Pt feeds herself. Smoking Status: Never smoker Past Alcohol Use History: None Reported Additional Past Alcohol Use History / Comment(s): Patient is a lifelong nonsmoker. She denies any alcohol abuse. Past Drug Use History: None Reported - Past Family History Father History Unknown: Yes Additional Family Medical History / Comment(s): PTS DAD LIVED IN [place]- SHE'S NOT SURE WHAT HE FROM. HE HAD HYPOTENSION. Mother Family Medical History: Coronary Artery Disease (CAD), Diabetes Mellitus, Hyperlipidemia, Hypertension Additional Family Medical History / Comment(s): CARDIAC STENTS Medications and Allergies Home Medications Medication Instructions Recorded Confirmed Type Potassium Chloride ER [K-Dur 20] 20 meq PO BID 01/12/19 09/24/23 History Aspirin 81 mg PO DAILY 09/15/19 09/24/23 History Sennosides [Senna] 8.6 mg PO BID 01/31/20 09/24/23 History Atorvastatin [Lipitor] 10 mg PO HS@199909/22/21 09/24/23 History Diroximel Fumarate [Vumerity] 462 mg PO BID@0700,1900 09/22/21 09/24/23 History Levothyroxine Sodium [Synthroid] 75 mcg PO DAILY 09/22/21 09/24/23 History Ascorbic Acid [Vitamin C] 500 mg PO DAILY 05/14/22 09/24/23 History Furosemide [Lasix] 20 mg PO DAILY 05/14/22 09/24/23 History Baclofen 10 mg PO TID@0700,1300,1900 12/22/22 09/24/23 History Multivitamins, Thera [Multivitamin 1 tab PO DAILY 12/22/22 09/24/23 History (formulary)] Folic Acid 0.4 mg PO BID 06/19/23 09/24/23 History Naloxone HCl 0.4 mg SQ ONCE PRN 06/19/23 09/24/23 History Nitroglycerin Sl Tabs [Nitrostat] 0.4 mg SUBLINGUAL Q5M PRN 06/19/23 09/24/23 History Menthol [Icy Hot] 1 patch TRANSDERM DAILY 08/16/23 09/24/23 History Gabapentin [Neurontin] 300 mg PO BID@0700,1900 3 Days #6 08/24/23 09/24/23 Rx cap Artificial Tears-Hypromellose 1 drop BOTH EYES DAILY 09/24/23 09/24/23 History [Artificial Tear Drops] Esomeprazole Magnesium [NexIUM] 20 mg PO DAILY 09/24/23 09/24/23 History HYDROcodone/APAP 7.5-325MG [[place] 1 tab PO QID@07,13,,23 09/24/23 09/24/23 History 7.5-325] Naloxone HCl [Narcan] 4 mg NASAL ONCE PRN 09/24/23 09/24/23 History Pro-Stat Sugar Free (Amino 30 ml PO DAILY 09/24/23 09/24/23 History Acids-Protein Hydrolysate) Allergies Allergy/AdvReac Type Severity Reaction Status Date / Time adhesive tape Allergy Rash/Hives Verified 09/24/23 12:51 cinnamon Allergy Rash/Hives Verified 09/24/23 12:51 Physical Exam Vitals: Vital Signs Temp Pulse Pulse Resp BP BP Pulse Ox 09/25/23 06:58 98.1 F 99 17 125/78 94 L 09/25/23 02:13 98.1 F 96 18 126/76 99 09/24/23 20:42 98.0 F 94 18 114/75 100 09/24/23 17:06 98.3 F 105 H 18 102/50 96 09/24/23 14:25 98.9 F 103 H 20 116/50 97 09/24/23 11:58 100.1 F H 09/24/23 11:32 116 H 18 108/62 98 09/24/23 11:20 102.0 F H Intake and Output 09/24/23 09/25/23 09/25/23 22:59 06:59 14:59 Intake Total 225 Output Total 100 1200 Balance 125 -1200 Intake: Intake, IV Titration 225 Amount Sodium Chloride 0.9% 1, 225 000 ml @ 75 mls/hr IV . [id number] [facility] Rx#:[id number] Output: Urine 100 1200 Other: Voiding Method Indwelling Catheter Indwelling Catheter # Bowel Movements 1 Weight 115.212 kg GENERAL DESCRIPTION: Middle-aged female lying in bed, no distress. No tachypnea or accessory muscle of respiration use. HEENT: Shows Pallor , no scleral icterus. Oral mucous membrane is dry. No pharyngeal erythema or thrush NECK: Trachea central, no thyromegaly. LUNGS: Unlabored breathing. Clear to auscultation anteriorly. No wheeze or crackle. HEART: S1, S2, regular rate and rhythm. No loud murmur ABDOMEN: Soft, no tenderness , guarding or rigidity, no organomegaly EXTREMITIES: Bilateral lower extremity swelling with more redness of the left leg slightly warm SKIN: No rash, no masses palpable. NEUROLOGICAL: The patient is awake, alert, oriented x3, mood and affect normal. Results CBC & Chem 7: 09/25/23 06:38 09/25/23 06:38 Labs: Abnormal Lab Results - Last 24 Hours (Table) 09/24/23 09/24/23 09/24/23 Range/Units 09:59 11:13 13:23 WBC (4.50-10.00) X 10*3/uL RBC (4.10-5.20) X 10*6/uL Hgb 10.6 L (11.4-16.0) gm/dL Hct 33.7 L (34.0-46.0) % MCH (27.0-32.0) pg MCHC (32.0-37.0) g/dL RDW 16.1 H (11.5-15.5) % MPV (9.5-12.2) FL Lymphocytes # 0.5 L (1.0-4.8) k/uL Anion Gap (4.00-12.00) mmol/L Calcium (8.7-10.3) mg/dL NT-Pro-B Natriuret Pep (0-125) pg/mL Urine Appearance Turbid H Turbid H (Clear) Urine Protein 2+ H 2+ H (Negative) Urine Blood Moderate H Moderate H (Negative) Ur Leukocyte Esterase Large H Large H (Negative) Urine RBC >182 H >182 H (0-5) /hpf Urine WBC >182 H >182 H (0-5) /hpf Urine WBC Clumps Many H Many H (None) /hpf Ur Squamous Epith Cells 9 H (0-4) /hpf Urine Bacteria Many H Rare H (None) /hpf 09/25/23 09/25/23 Range/Units 06:38 06:38 WBC 4.41 L (4.50-10.00) X 10*3/uL RBC 3.73 L (4.10-5.20) X 10*6/uL Hgb 9.9 L (11.4-16.0) gm/dL Hct 32.5 L (34.0-46.0) % MCH 26.5 L (27.0-32.0) pg MCHC 30.5 L (32.0-37.0) g/dL RDW 16.7 H (11.5-15.5) % MPV 9.4 L (9.5-12.2) FL Lymphocytes # 0.42 L (1.0-4.8) k/uL Anion Gap 14.50 H (4.00-12.00) mmol/L Calcium 8.5 L (8.7-10.3) mg/dL NT-Pro-B Natriuret Pep 736 H (0-125) pg/mL Urine Appearance (Clear) Urine Protein (Negative) Urine Blood (Negative) Ur Leukocyte Esterase (Negative) Urine RBC (0-5) /hpf Urine WBC (0-5) /hpf Urine WBC Clumps (None) /hpf Ur Squamous Epith Cells (0-4) /hpf Urine Bacteria (None) /hpf Assessment and Plan (1) Urinary tract infection Current Visit: Yes Status: Acute Code(s): N39.0 - URINARY TRACT INFECTION, SITE NOT SPECIFIED SNOMED Code(s): 69682689 (2) Fever Current Visit: No Status: Acute Code(s): R50.9 - FEVER, UNSPECIFIED SNOMED Code(s): 355510180 Plan: 1patient presented to hospital with sepsis in this patient who did have a fever tachycardia meeting criteria for SIRS, source is urinary and this patient did have significantly positive UA also have some warmth to the left lower extremity a component of cellulitis manage Oscar currently clinically not behaving as pneumonia and abdominal soft did have wound to the posterior thigh and sacral area but no evidence of any wound infection or cellulitis clinically 2-keeping in mind her infection with the more resistant gram-negative pathogen we will discontinue aspirin and start the patient on cefepime while waiting for the culture to finalize 3-local wound care to the posterior thigh and sacral wound with a dry Aquacel dressing change every 48 hours We will follow on clinical condition and cultures to further adjust medication if needed Thank you for this consultation we will follow the patient along with you Dictation was produced using [employer] dictation software. please excuse any grammatical, word or spelling errors. Time with Patient: Greater than 30
--- NOTE | 2023-09-26 15:29 | P.PN ---
Subjective Progress Note Date: 09/26/23 Principal diagnosis: Reason for follow-up is fever catheter associated UTI Patient is a 53-year-old female with multiple comorbidities including MS bedbound status. Patient required Chaves catheter presented to hospital with fever concerning for catheter assisted UTI. On today's evaluation that is 09/26/2023, patient did have resolution of her fever and the patient has been afebrile today, patient is breathing comfortably and is currently on room air, patient was slightly sleepy lethargic today and did not answer any question no vomiting or diarrhea reported by the nursing staff. No new lab has been repeated today cultures currently pending Objective - Vital Signs Vital signs: Vital Signs Temp 97.5 F L 09/26/23 14:18 Pulse 87 09/26/23 14:18 Resp 18 09/26/23 14:18 BP 122/77 09/26/23 14:18 Pulse Ox 100 09/26/23 14:18 FiO2 Intake & Output 09/25/23 09/26/23 09/26/23 18:59 06:59 18:59 Intake Total 600 1000 Balance 600 1000 Intake: IV 600 900 Sodium Chloride 0.9% 1, 600 900 000 ml @ 75 mls/hr IV . [id number] YANIRA Rx#:[id number] Intake, IV Titration 100 Amount cefTRIAXone 2 gm In 100 Sodium Chloride 0.9% 50 ml @ 100 mls/hr IVPB Q24HR [facility] Rx#:[id number] Other: Voiding Method Indwelling Catheter Indwelling Catheter Indwelling Catheter # Bowel Movements 1 - Exam GENERAL DESCRIPTION: Middle-aged female lying in bed in no distress RESPIRATORY SYSTEM: Unlabored breathing , decreased breath sounds at bases HEART: S1 S2 regular rate and rhythm , ABDOMEN: Soft , no tenderness EXTREMITIES: Diffuse swelling of the lower extremities left leg some erythema but not as warm - Labs CBC & Chem 7: 09/25/23 06:38 09/25/23 06:38 Labs: Microbiology - Last 24 Hours (Table) 09/24/23 10:12 Blood Culture - Preliminary Blood 09/24/23 10:12 Blood Culture - Preliminary Blood Assessment and Plan (1) Urinary tract infection Current Visit: Yes Status: Acute Code(s): N39.0 - URINARY TRACT INFECTION, SITE NOT SPECIFIED SNOMED Code(s): 24650110 (2) Fever Current Visit: No Status: Acute Code(s): R50.9 - FEVER, UNSPECIFIED SNOMED Code(s): 910145653 Plan: 1patient presented to hospital with sepsis in this patient who did have a fever tachycardia meeting criteria for SIRS, source is urinary and this patient did have significantly positive UA also have some warmth to the left lower extremity a component of cellulitis manage Oscar currently clinically not behaving as pneumonia and abdominal soft did have wound to the posterior thigh and sacral area but no evidence of any wound infection or cellulitis clinically 2-local wound care to the posterior thigh and sacral wound with a dry Aquacel dressing change every 48 hours 3patient to continue with cefepime while waiting for the culture to finalize Dictation was produced using [employer] dictation software. please excuse any grammatical, word or spelling errors. Time with Patient: Less than 30
--- NOTE | 2023-09-27 04:06 | P.PN ---
Subjective This is a pleasant 53 years old female with past medical history of hyperlipidemia, multiple sclerosis stage IV, generalized weakness left side more than right. With chronic Chaves catheter. Presents because of fever. Patient states she has some burning in the urine earlier No pain. No flank pain or CVA tenderness. Patient does not walk. No vomiting no diarrhea. Abdomen soft Her left leg is also swollen. Red and not painful. Patient has neurogenic bladder with indwelling Chaves catheter which was exchanged in the emergency room On admission patient had fever of 102 No leukocytosis. Rest of labs were unremarkable including CBC, INR, BMP, LFT, vitals check EKG showing sinus tachycardia at 120 Chest is showing mild interstitial opacities which could be interstitial pneumonia versus fluid. Patient started on antibiotics and IV fluid in the emergency room 09/25/23 Patient looks comfortable, no new symptom No chest pain No suprapubic pain or tenderness New Chaves catheter in place She is eating well and getting normal saline 75 mL/h She has bilateral leg swelling, at baseline she cannot move the left leg at all only little flickering, she can move the right lower extremity but not against gravity. She is afebrile, WBC is 4.4 Patient remains on ceftriaxone Urine culture is pending Possibly patient also with left leg cellulitis 09/26/23 Patient clinically is the same, currently she is at baseline. No other new symptoms Continue with antibiotic per ID team Left leg Cellulitis is improved Objective - Vital Signs Vital signs: Vital Signs Temp 97.5 F L 09/26/23 14:18 Pulse 87 09/26/23 14:18 Resp 18 09/26/23 14:18 BP 122/77 09/26/23 14:18 Pulse Ox 100 09/26/23 14:18 FiO2 Intake & Output 09/25/23 09/26/23 09/26/23 18:59 06:59 18:59 Intake Total 600 1000 Balance 600 1000 Intake: IV 600 900 Sodium Chloride 0.9% 1, 600 900 000 ml @ 75 mls/hr IV . [id number] YANIRA Rx#:[id number] Intake, IV Titration 100 Amount cefTRIAXone 2 gm In 100 Sodium Chloride 0.9% 50 ml @ 100 mls/hr IVPB Q24HR YANIRA Rx#:[id number] Other: Voiding Method Indwelling Catheter Indwelling Catheter Indwelling Catheter # Bowel Movements 1 - Exam GENERAL: The patient is alert and oriented x3, not in any acute distress. Well developed, well nourished. HEENT: Pupils are round and equally reacting to light. EOMI. No scleral icterus. No conjunctival pallor. Normocephalic, atraumatic. No pharyngeal erythema. No thyromegaly. CARDIOVASCULAR: S1 and S2 present. No murmurs, rubs, or gallops. PULMONARY: Chest is clear to auscultation, no wheezing , no crackles. -ABDOMEN: Soft, nontender, nondistended, normoactive bowel sounds. No palpable organomegaly. Chaves catheter in place MUSCULOSKELETAL: No joint swelling or deformity. -EXTREMITIES: No cyanosis, clubbing, bilateral pitting leg edema, more on the left side NEUROLOGICAL: Cranial nerves are grossly intact. Paraplegia at baseline. SKIN: No rashes. no petechiae. - Labs CBC & Chem 7: 09/25/23 06:38 09/25/23 06:38 Labs: Microbiology - Last 24 Hours (Table) 09/24/23 10:12 Blood Culture - Preliminary Blood 09/24/23 10:12 Blood Culture - Preliminary Blood Assessment and Plan Assessment: Acute complicated UTI associated with indwelling Chaves catheter Possible left leg cellulitis Bilateral pulmonary interstitial pneumonitis versus fluid Sepsis secondary to above Neurogenic bladder with urinary retention, chronic. S/p indwelling Chaves catheter Hyperlipidemia Multiple sclerosis stage IV Generalized weakness, left more than right Plan: Continue with antibiotic, currently c cefepime Infectious disease consult Chaves catheter was exchanged in emergency room per report Discontinue normal saline Resume aspirin ultrasound of the legs reviewed Labs and medication were reviewed.. Continue same treatment. Continue with symptomatic treatment. Resume home medication. Monitor labs and vitals. DVT and GI prophylaxis. Further recommendations as per clinical course of the patient DVT prophylaxis: Subcutaneous heparin GI Prophylaxis: Protonix Prognosis is guarded
--- NOTE | 2023-09-27 12:28 | P.PN ---
Subjective Progress Note Date: 09/27/23 Principal diagnosis: Reason for follow-up is fever catheter associated UTI Patient is a 53-year-old female with multiple comorbidities including MS bedbound status. Patient required Chaves catheter presented to hospital with fever concerning for catheter assisted UTI. On today's evaluation that is 09/27/2023, Patient is afebrile this morning and denies any chills, patient mention breathing comfortably and is currently on room air, patient denies any chest pain occasional cough patient denies any abdominal pain no diarrhea no nausea no vomiting, mention feeling better. No new lab has been repeated today cultures so far pending Objective - Vital Signs Vital signs: Vital Signs Temp 97.8 F 09/27/23 07:09 Pulse 83 09/27/23 08:05 Resp 17 09/27/23 08:05 BP 116/76 09/27/23 07:09 Pulse Ox 94 L 09/27/23 07:09 FiO2 Intake & Output 09/26/23 09/27/23 09/27/23 18:59 06:59 18:59 Output Total 1700 1500 Balance -1700 -1500 Output: Urine 1700 1500 Other: Voiding Method Indwelling Catheter Indwelling Catheter Indwelling Catheter - Exam GENERAL DESCRIPTION: Middle-aged female lying in bed in no distress RESPIRATORY SYSTEM: Unlabored breathing , decreased breath sounds at bases HEART: S1 S2 regular rate and rhythm , ABDOMEN: Soft , no tenderness EXTREMITIES: Diffuse swelling of the lower extremities left leg some erythema but not as warm - Labs CBC & Chem 7: 09/25/23 06:38 09/25/23 06:38 Labs: Microbiology - Last 24 Hours (Table) 09/26/23 06:15 Urine Culture - Final Urine,Catheterized 09/24/23 10:12 Blood Culture - Preliminary Blood 09/24/23 10:12 Blood Culture - Preliminary Blood Assessment and Plan (1) Urinary tract infection Current Visit: Yes Status: Acute Code(s): N39.0 - URINARY TRACT INFECTION, SITE NOT SPECIFIED SNOMED Code(s): 11217096 (2) Fever Current Visit: No Status: Acute Code(s): R50.9 - FEVER, UNSPECIFIED SNOMED Code(s): 101189631 Plan: 1patient presented to hospital with sepsis in this patient who did have a fever tachycardia meeting criteria for SIRS, source is urinary and this patient did have significantly positive UA also have some warmth to the left lower extremity a component of cellulitis manage Oscar currently clinically not behaving as pneumonia and abdominal soft did have wound to the posterior thigh and sacral area but no evidence of any wound infection or cellulitis clinically 2-local wound care to the posterior thigh and sacral wound with a dry Aquacel dressing change every 48 hours 3patient did have resolution of her fever white count normal cultures currently pending patient to continue with cefepime while waiting for the culture to finalize Dictation was produced using [employer] dictation software. please excuse any grammatical, word or spelling errors. Time with Patient: Less than 30
--- NOTE | 2023-09-28 06:54 | P.PN ---
Subjective Progress Note Date: 09/27/23 This is a pleasant 53 years old female with past medical history of hyperlipidemia, multiple sclerosis stage IV, generalized weakness left side more than right. With chronic Chaves catheter. Presents because of fever. Patient states she has some burning in the urine earlier No pain. No flank pain or CVA tenderness. Patient does not walk. No vomiting no diarrhea. Abdomen soft Her left leg is also swollen. Red and not painful. Patient has neurogenic bladder with indwelling Chaves catheter which was exchanged in the emergency room On admission patient had fever of 102 No leukocytosis. Rest of labs were unremarkable including CBC, INR, BMP, LFT, vitals check EKG showing sinus tachycardia at 120 Chest is showing mild interstitial opacities which could be interstitial pneumonia versus fluid. Patient started on antibiotics and IV fluid in the emergency room 09/25/23 Patient looks comfortable, no new symptom No chest pain No suprapubic pain or tenderness New Chaves catheter in place She is eating well and getting normal saline 75 mL/h She has bilateral leg swelling, at baseline she cannot move the left leg at all only little flickering, she can move the right lower extremity but not against gravity. She is afebrile, WBC is 4.4 Patient remains on ceftriaxone Urine culture is pending Possibly patient also with left leg cellulitis 09/26/23 Patient clinically is the same, currently she is at baseline. No other new symptoms Continue with antibiotic per ID team Left leg Cellulitis is improved 09/27/2023 Patient is seen in follow-up today with infectious disease following maintained on ceftriaxone. Lower extremity cellulitis is improving and patient will continue oral antibiotics on discharge. Patient is afebrile with no reports of chest pain or shortness of breath. Patient has been tolerating diet with no reported nausea or vomiting. Will discuss with case management/social work regarding discharge planning. Review of systems: Constitutional: No reports of fatigue, fever, or chills Cardiovascular: No reports of chest pain or palpitations Respiratory: No reports of shortness of breath or cough GI: No reports of nausea, vomiting, or diarrhea : No reports of dysuria or retention Neurovascular: No reports of weakness or numbness All medications have been reviewed Physical exam: GENERAL: The patient is alert and oriented x3, not in any acute distress. Well developed, well nourished. HEENT: Pupils are round and equally reacting to light. EOMI. No scleral icterus. No conjunctival pallor. Normocephalic, atraumatic. No pharyngeal erythema. No thyromegaly. CARDIOVASCULAR: S1 and S2 present. No murmurs, rubs, or gallops. PULMONARY: Chest is clear to auscultation, no wheezing , no crackles. ABDOMEN: Soft, obese, nontender, nondistended, normoactive bowel sounds. No palpable organomegaly. Chaves catheter in place MUSCULOSKELETAL: No joint swelling or deformity. EXTREMITIES: No cyanosis, clubbing, bilateral pitting leg edema, more on the left side, improving NEUROLOGICAL: Cranial nerves are grossly intact. Paraplegia at baseline. SKIN: No rashes. no petechiae. Assessment: Acute complicated UTI associated with indwelling Chaves catheter, present on admission Possible left leg cellulitis, present on admission Bilateral pulmonary interstitial pneumonitis versus fluid Sepsis secondary to above Neurogenic bladder with urinary retention, chronic. S/p indwelling Chaves catheter Hyperlipidemia Multiple sclerosis stage IV Generalized weakness, left more than right Obesity with a BMI of 39.8 GI prophylaxis DVT prophylaxis Full code Plan: Continue with antibiotic, with infectious disease following. Patient will transition to oral Ceftin for 1 week on discharge Chaves catheter was exchanged on ED admission. Patient has chronic indwelling Chaves catheter Will follow-up with case management/social work regarding discharge planning with possible discharge in the next 24 hours Due to multiple complex medical issues, overall prognosis is guarded The impression and plan of care has been dictated by Kassie Huff, Nurse Practitioner as directed. Dr. Mehrdad MD I have performed a history and examination and MDM of this patient, discussed the same with the dictator, and agree with the dictator's assessment and plan as written ,documented as a scribe. Based on total visit time, I have performed more than 50% of the visit. Objective - Vital Signs Vital signs: Vital Signs Temp 97.8 F 09/27/23 07:09 Pulse 83 09/27/23 08:05 Resp 17 09/27/23 08:05 BP 116/76 09/27/23 07:09 Pulse Ox 94 L 09/27/23 07:09 FiO2 Intake & Output 09/26/23 09/27/23 09/27/23 18:59 06:59 18:59 Output Total 1700 1500 Balance -1700 -1500 Output: Urine 1700 1500 Other: Voiding Method Indwelling Catheter Indwelling Catheter Indwelling Catheter - Labs CBC & Chem 7: 09/25/23 06:38 09/25/23 06:38 Labs: Microbiology - Last 24 Hours (Table) 09/24/23 10:12 Blood Culture - Preliminary Blood 09/24/23 10:12 Blood Culture - Preliminary Blood
[2023-09-28 07:38] VITALS: RESP 16
--- NOTE | 2023-09-28 12:56 | P.PN ---
Subjective Progress Note Date: 09/28/23 Principal diagnosis: Reason for follow-up is fever catheter associated UTI Patient is a 53-year-old female with multiple comorbidities including MS bedbound status. Patient required Chaves catheter presented to hospital with fever concerning for catheter assisted UTI. On today's evaluation that is 09/28/2023,the patient denies any fever or any chills, patient is breathing comfortably on room air, the patient denies chest pain shortness of breath and no significant cough, patient denies abdominal pain, no nausea vomiting or diarrhea. Feeling better wants to go back to the intermediate. No new lab has been repeated today culture has been negative Objective - Vital Signs Vital signs: Vital Signs Temp 97.9 F 09/28/23 07:30 Pulse 77 09/28/23 07:30 Resp 16 09/28/23 07:30 BP 115/78 09/28/23 07:30 Pulse Ox 97 09/28/23 07:30 FiO2 Intake & Output 09/27/23 09/28/23 09/28/23 18:59 06:59 18:59 Intake Total 237 Output Total 1800 1600 Balance -1800 -1363 Intake: Oral 237 Output: Urine 1800 1600 Uretheral (Chaves) 1300 Other: Voiding Method Indwelling Catheter Indwelling Catheter - Exam GENERAL DESCRIPTION: Middle-aged female lying in bed in no distress RESPIRATORY SYSTEM: Unlabored breathing , decreased breath sounds at bases HEART: S1 S2 regular rate and rhythm , ABDOMEN: Soft , no tenderness EXTREMITIES: Diffuse swelling of the lower extremities left leg some erythema but not as warm - Labs CBC & Chem 7: 09/25/23 06:38 09/25/23 06:38 Labs: Microbiology - Last 24 Hours (Table) 09/24/23 10:12 Blood Culture - Preliminary Blood 09/24/23 10:12 Blood Culture - Preliminary Blood 09/26/23 06:15 Urine Culture - Final Urine,Catheterized Assessment and Plan (1) Urinary tract infection Current Visit: Yes Status: Acute Code(s): N39.0 - URINARY TRACT INFECTION, SITE NOT SPECIFIED SNOMED Code(s): 74357104 (2) Fever Current Visit: No Status: Acute Code(s): R50.9 - FEVER, UNSPECIFIED SNOMED Code(s): 651004313 Plan: 1patient presented to hospital with sepsis in this patient who did have a fever tachycardia meeting criteria for SIRS, source is urinary and this patient did have significantly positive UA also have some warmth to the left lower extremity a component of cellulitis manage Oscar currently clinically not behaving as pneumonia and abdominal soft did have wound to the posterior thigh and sacral area but no evidence of any wound infection or cellulitis clinically 2-local wound care to the posterior thigh and sacral wound with a dry Aquacel dressing change every 48 hours 3patient did have resolution of her fever white count normal cultures has been negative for any resistant pathogen on cefepime will be able to finish therapy with a 7-day course of oral Ceftin on discharge Dictation was produced using [employer] dictation software. please excuse any grammatical, word or spelling errors. Time with Patient: Less than 30
[2023-09-28 13:31] VITALS: BP 124/79; PULSE 83; TEMP 98.5
--- NOTE | 2023-09-28 15:30 | P.DS ---
Providers Date of admission: 09/26/23 06:31 Expected date of discharge: 09/28/23 Attending physician: Michael Carlin MD Consults: 09/24/23 18:39 Consult Physician Urgent Consulting Provider: Bobo Rivero Consult Reason/Comments: uti Do you want consulting provider notified?: Yes Primary care physician: Brianne Gomez, DO Hospital Course: Final diagnosis Acute complicated UTI associated with indwelling Chaves catheter, present on admission Possible left leg cellulitis, present on admission, ruled out with no evidence of cellulitis per ID Bilateral pulmonary interstitial pneumonitis versus fluid Sepsis secondary to above Neurogenic bladder with urinary retention, chronic. S/p indwelling Chaves catheter Hyperlipidemia Multiple sclerosis stage IV Generalized weakness, left more than right Obesity with a BMI of 39.8 GI prophylaxis DVT prophylaxis Full code Discharge disposition Patient is being discharged in a stable condition with guarded prognosis to [facility]. Patient will follow-up with Dr. Gomez in the outpatient setting upon discharge. Patient is to continue with oral antibiotics in the form of Ceftin twice daily for the next 7 days. Total time taken is greater than 35 minutes. Hospital course This is a 53-year-old female who was recently admitted with acute complicated UTI present on admission who normally resides at an [facility]. Patient with recurrent UTIs being followed by infectious disease and had Chaves catheter exchanged. Patient maintained on IV antibiotics and will transition to oral Ceftin twice daily for 1 week to complete the course. Blood and urine cultures are negative and urine culture showing normal genital opal. Chaves catheter was exchanged in the ER on admission. Recommend to continue with Chaves care and outpatient follow-up with primary care provider. Please refer to other consultation notes for further HPI. Currently no reports of chest pain, shortness of breath, or palpitations. Patient is afebrile. No reports of nausea or vomiting and patient is tolerating diet. Patient will be going to [facility] recommended and asking to resident today. guarded prognosis Physical exam: Gen: This is a 53 year old female who is awake, alert and oriented x3, well developed, elderly appearing, obese HEENT: Head is atraumatic, normocephalic. Pupils equal, round. Sclerae is anicteric. NECK: Supple. No JVD. No lymphadenopathy. No thyromegaly. LUNGS: Clear to auscultation. No wheezes or rhonchi. No intercostal retractions. HEART: Regular rate and rhythm. No murmur. ABDOMEN: Soft. Obese. Bowel sounds are present. No masses. No tenderness. EXTREMITIES: No pedal edema. No calf tenderness. NEUROLOGICAL: Patient is awake, alert and oriented x3. Cranial nerves 2 through 12 are grossly intact. Please refer to medication reconciliation sheet for a list of medications. The impression and plan of care has been dictated by Kassie Huff, Nurse Practitioner as directed. Dr. Mehrdad MD I have performed a history and examination and MDM of this patient, discussed the same with the dictator, and agree with the dictator's assessment and plan as written ,documented as a scribe. Based on total visit time, I have performed more than 50% of the visit. Patient Condition at Discharge: Fair Plan - Discharge Summary Discharge Rx Participant: No New Discharge Prescriptions: New cefUROXime axetiL [Ceftin] 500 mg PO BID 7 Days #14 tab Heparin Sodium,Porcine (1 ml) [Heparin Sodium] 5,000 unit SQ Q8HR each Continue Potassium Chloride ER [K-Dur 20] 20 meq PO BID Aspirin 81 mg PO DAILY Sennosides [Senna] 8.6 mg PO BID Levothyroxine Sodium [Synthroid] 75 mcg PO DAILY Atorvastatin [Lipitor] 10 mg PO HS@2000 Ascorbic Acid [Vitamin C] 500 mg PO DAILY Naloxone HCl 0.4 mg SQ ONCE PRN PRN Reason: OVERDOSE Folic Acid 0.4 mg PO BID Menthol [Icy Hot] 1 patch TRANSDERM DAILY Gabapentin [Neurontin] 300 mg PO BID@0700,1900 3 Days #6 cap Artificial Tears-Hypromellose [Artificial Tear Drops] 1 drop BOTH EYES DAILY Naloxone HCl [Narcan] 4 mg NASAL ONCE PRN PRN Reason: OVERDOSE Diroximel Fumarate [Vumerity] 462 mg PO BID@0700,1900 Furosemide [Lasix] 20 mg PO DAILY Baclofen 10 mg PO TID@0700,1300,1900 Multivitamins, Thera [Multivitamin (formulary)] 1 tab PO DAILY Nitroglycerin Sl Tabs [Nitrostat] 0.4 mg SUBLINGUAL Q5M PRN PRN Reason: Chest Pain Pro-Stat Sugar Free (Amino Acids-Protein Hydrolysate) 30 ml PO DAILY Esomeprazole Magnesium [NexIUM] 20 mg PO DAILY Changed HYDROcodone/APAP 7.5-325MG [Cable 7.5-325] 1 tab PO QID@,,, #4 tab Discharge Medication List Potassium Chloride ER [K-Dur 20] 20 meq PO BID 01/12/19 [History] Aspirin 81 mg PO DAILY 09/15/19 [History] Sennosides [Senna] 8.6 mg PO BID 01/31/20 [History] Atorvastatin [Lipitor] 10 mg PO HS@199909/22/21 [History] Diroximel Fumarate [Vumerity] 462 mg PO BID@0700,1900 09/22/21 [History] Levothyroxine Sodium [Synthroid] 75 mcg PO DAILY 09/22/21 [History] Ascorbic Acid [Vitamin C] 500 mg PO DAILY 05/14/22 [History] Furosemide [Lasix] 20 mg PO DAILY 05/14/22 [History] Baclofen 10 mg PO TID@0700,1300,1900 12/22/22 [History] Multivitamins, Thera [Multivitamin (formulary)] 1 tab PO DAILY 12/22/22 [History] Folic Acid 0.4 mg PO BID 06/19/23 [History] Naloxone HCl 0.4 mg SQ ONCE PRN 06/19/23 [History] Nitroglycerin Sl Tabs [Nitrostat] 0.4 mg SUBLINGUAL Q5M PRN 06/19/23 [History] Menthol [Icy Hot] 1 patch TRANSDERM DAILY 08/16/23 [History] Gabapentin [Neurontin] 300 mg PO BID@0700,1900 3 Days #6 cap 08/24/23 [Rx] Artificial Tears-Hypromellose [Artificial Tear Drops] 1 drop BOTH EYES DAILY 09/24/23 [History] Esomeprazole Magnesium [NexIUM] 20 mg PO DAILY 09/24/23 [History] Naloxone HCl [Narcan] 4 mg NASAL ONCE PRN 09/24/23 [History] Pro-Stat Sugar Free (Amino Acids-Protein Hydrolysate) 30 ml PO DAILY 09/24/23 [History] HYDROcodone/APAP 7.5-325MG [Cable 7.5-325] 1 tab PO QID@,,, #4 tab 09/28/23 [Rx] Heparin Sodium,Porcine (1 ml) [Heparin Sodium] 5,000 unit SQ Q8HR each 09/28/23 [Rx] cefUROXime axetiL [Ceftin] 500 mg PO BID 7 Days #14 tab 09/28/23 [Rx] Follow up Appointment(s)/Referral(s): Brianne Gomez DO [Primary Care Provider] - 1-2 days ([facility] please call for follow-up appointment.) [facility] - As Needed
== END 2023-09-28 18:16 | DRG 466 ==
LOC: EC 09:46 → 6NMEDSUR 14:44 → 4SSUR 15:33 → OBSVTOIN 09-26 06:31
PROVIDERS: ADMIT Internal Medicine; ATTEND Internal Medicine
DX: T83.511A Infection and inflammatory reaction due to indwelling urethral catheter, initial encounter (principal); A41.50 Gram-negative sepsis, unspecified; N39.0 Urinary tract infection, site not specified; N31.9 Neuromuscular dysfunction of bladder, unspecified; Y84.6 Urinary catheterization as the cause of abnormal reaction of the patient, or of later complication, without mention of misadventure at the time of the procedure; R33.8 Other retention of urine; E66.9 Obesity, unspecified; Z68.39 Body mass index [BMI] 39.0-39.9, adult; L98.419 Non-pressure chronic ulcer of buttock with unspecified severity; L89.159 Pressure ulcer of sacral region, unspecified stage; E78.5 Hyperlipidemia, unspecified; D50.9 Iron deficiency anemia, unspecified; J84.9 Interstitial pulmonary disease, unspecified; G35 Multiple sclerosis; I49.3 Ventricular premature depolarization; Z87.01 Personal history of pneumonia (recurrent); Z87.440 Personal history of urinary (tract) infections; Z74.01 Bed confinement status; Z99.3 Dependence on wheelchair; Z86.14 Personal history of Methicillin resistant Staphylococcus aureus infection; Z79.890 Hormone replacement therapy; Z79.899 Other long term (current) drug therapy
CPT/HCPCS: 36415; 51702; 71045; 76770; 80048; 80053; 81001; 83605; 83880; 85025; 85610; 85730; 87040; 87086; 87636; 93005; 93970; 96361; 96365; 96366; 96375; 99285

== ENCOUNTER 2023-11-11 01:00 | Inpatient (IN) | payer OTHER ==
[2023-11-11] MEDS ORDERED: ACETAMINOPHEN IV (For NPO) 1,000 MG/100 ML VIAL ONE (22:20)
[2023-11-11] MEDS ORDERED: SODIUM CHLORIDE 0.9% 100 ML BAG IV ONE (22:20)
[2023-11-11] MEDS ORDERED: SODIUM CHLORIDE 0.9% 1,000 ML BAG ONE (22:20)
[2023-11-11] MEDS ORDERED: cefTRIAXone 2 GM VIAL ONE (22:35)
[2023-11-12] MEDS ORDERED: PANTOPRAZOLE 40 MG/10 ML VIAL ONE (08:23)
[2023-11-12] MEDS ORDERED: POTASSIUM CHLORIDE ER 20 MEQ TAB.ER PO ONE ×2 (12:42→21:28)
[2023-11-12] MEDS ORDERED: ASPIRIN 81 MG ONE (12:42)
[2023-11-12] MEDS ORDERED: GABAPENTIN 300 MG CAP ONE ×2 (12:42→21:29)
[2023-11-12] MEDS ORDERED: LIDOCAINE 4% PATCH TOPICAL ONE (12:42)
[2023-11-12] MEDS ORDERED: BACLOFEN 10 MG TAB ONE ×2 (12:42→21:28)
[2023-11-12] MEDS ORDERED: FUROSEMIDE 20 MG TAB ONE (12:43)
[2023-11-12] MEDS ORDERED: HYDROcodone/APAP 7.5-325MG 1 EACH TAB ONE ×3 (12:43→21:29)
[2023-11-12] MEDS ORDERED: FOLIC ACID 1 MG TAB ONE ×2 (12:43→21:29)
[2023-11-12] MEDS ORDERED: SENNOSIDES 8.6 MG TAB ONE ×2 (12:43→21:29)
[2023-11-12] MEDS ORDERED: ASCORBIC ACID 500 MG TAB ONE (21:28)
[2023-11-12] MEDS ORDERED: ATORVASTATIN 10 MG TAB ONE (21:28)
[2023-11-12] MEDS ORDERED: MULTIVITAMINS, THERA 1 EACH TAB ONE (21:28)
[2023-11-12] MEDS ORDERED: cefTRIAXone 2 GM VIAL ONE (22:05)
[2023-11-12] MEDS ORDERED: SODIUM CHLORIDE 0.9% 50 ML BAG ONE (23:00)
[2023-11-13] MEDS ORDERED: SODIUM CHLORIDE 0.9% 1,000 ML BAG ONE (03:28)
[2023-11-13] MEDS ORDERED: ACETAMINOPHEN TAB 325 MG TAB ONE (03:28)
[2023-11-13] MEDS ORDERED: LEVOTHYROXINE 75 MCG TAB ONE (06:23)
[2023-11-13] MEDS ORDERED: BACLOFEN 10 MG TAB ONE ×3 (06:23→20:15)
[2023-11-13] MEDS ORDERED: PANTOPRAZOLE 40 MG TABLET PO ONE (06:23)
[2023-11-13] MEDS ORDERED: ASCORBIC ACID 500 MG TAB ONE ×2 (07:46→20:15)
[2023-11-13] MEDS ORDERED: HYDROcodone/APAP 7.5-325MG 1 EACH TAB ONE ×3 (07:47→20:16)
[2023-11-13] MEDS ORDERED: GABAPENTIN 300 MG CAP ONE ×2 (07:47→20:16)
[2023-11-13] MEDS ORDERED: SENNOSIDES 8.6 MG TAB ONE ×2 (07:47→20:16)
[2023-11-13] MEDS ORDERED: ASPIRIN 81 MG ONE (07:47)
[2023-11-13] MEDS ORDERED: POTASSIUM CHLORIDE ER 20 MEQ TAB.ER PO ONE ×2 (07:47→20:15)
[2023-11-13] MEDS ORDERED: FUROSEMIDE 20 MG TAB ONE (07:48)
[2023-11-13] MEDS ORDERED: FOLIC ACID 1 MG TAB ONE ×2 (07:48→20:16)
[2023-11-13] MEDS ORDERED: LIDOCAINE 4% PATCH TOPICAL ONE (07:58)
[2023-11-13] MEDS ORDERED: NALOXONE 0.4 MG/ML 1 ML VIAL IV PRN (17:15)
[2023-11-13] MEDS ORDERED: ATORVASTATIN 10 MG TAB ONE (20:15)
[2023-11-13] MEDS ORDERED: MULTIVITAMINS, THERA 1 EACH TAB ONE (20:15)
[2023-11-13] MEDS ORDERED: cefTRIAXone 2 GM VIAL ONE ×2 (20:16→20:23)
[2023-11-13] MEDS ORDERED: NITROGLYCERIN SL TABS 0.4 MG TAB SUBLINGUAL PRN (22:55)
[2023-11-13] MEDS ORDERED: ACETAMINOPHEN TAB 325 MG TAB PO PRN (22:55)
[2023-11-14] MEDS: SODIUM CHLORIDE 0.9% 1,000 ML IV SCH (02:57)
[2023-11-14] MEDS: LEVOTHYROXINE 75 MCG TAB PO SCH (06:20)
[2023-11-14] MEDS: PANTOPRAZOLE 40 MG TABLET PO SCH (06:20)
[2023-11-14] MEDS: [UNRECOGNIZED DRUG - OTHER] PO SCH (07:43)
[2023-11-14] MEDS: SENNOSIDES 8.6 MG TAB PO SCH (07:44)
[2023-11-14] MEDS: BACLOFEN 10 MG TAB PO SCH (07:44)
[2023-11-14] MEDS: FOLIC ACID 1 MG TAB PO SCH (07:44)
[2023-11-14] MEDS: POTASSIUM CHLORIDE ER 20 MEQ TAB.ER PO SCH (07:44)
[2023-11-14] MEDS: FUROSEMIDE 20 MG TAB PO SCH (07:44)
[2023-11-14] MEDS: ASPIRIN 81 MG PO SCH (07:44)
[2023-11-14] MEDS: GABAPENTIN 300 MG CAP PO SCH (07:45)
[2023-11-14] MEDS: LIDOCAINE 4% PATCH TOPICAL SCH (07:45)
[2023-11-14] MEDS: HYDROcodone/APAP 7.5-325MG 1 EACH TAB PO SCH (07:46)
[2023-11-14] MEDS: TRIAMCINOLONE 0.1% CREAM 80 GM TUBE TOPICAL SCH (07:53)
[2023-11-14] MEDS: MULTIVITAMINS, THERA 1 EACH TAB PO SCH (07:55)
[2023-11-14] MEDS: ARTIFICIAL TEARS-HYPROMELLOSE DROPS 15 ML BTL BOTH EYES SCH (10:30)
--- NOTE | 2023-11-14 12:19 | P.PN ---
Subjective addendum: Please note Electronic system was down up to 11/13/2023 and everything was documented on paper chart. This is a pleasant 53 years old female who is bedridden with indwelling Chaves catheter and history of UTI. Presents with urinary signs symptoms associated with Chaves catheter and he was diagnosed with acute urinary tract infection Patient feeling better back to baseline. Remains on ceftriaxone pending urine culture. No other new complaints Objective - Vital Signs Vital signs: Vital Signs Temp 98.1 F 11/14/23 07:37 Pulse 84 11/14/23 08:08 Resp 17 11/14/23 08:08 BP 131/82 11/14/23 07:37 Pulse Ox 97 11/14/23 07:37 FiO2 Intake & Output 11/13/23 11/14/23 11/14/23 18:59 06:59 18:59 Weight 115.9 kg Other: Voiding Method Indwelling Catheter # Voids 3 # Bowel Movements 1 - Exam -GENERAL: The patient is alert and oriented x3, not in any acute distress. Well developed, well nourished. Obese HEENT: Pupils are round and equally reacting to light. EOMI. No scleral icterus. No conjunctival pallor. Normocephalic, atraumatic. No pharyngeal erythema. No thyromegaly. CARDIOVASCULAR: S1 and S2 present. No murmurs, rubs, or gallops. PULMONARY: Chest is clear to auscultation, no wheezing , no crackles. -ABDOMEN: Soft, nontender, nondistended, normoactive bowel sounds. No palpable organomegaly. Chaves catheter in place MUSCULOSKELETAL: No joint swelling or deformity. EXTREMITIES: No cyanosis, clubbing, or pedal edema. NEUROLOGICAL: Gross neurological examination did not reveal any focal deficits. SKIN: No rashes. no petechiae. Assessment and Plan Assessment: Acute urinary tract infection associated with Chaves catheter present on admission Bilateral leg stasis dermatitis Anemia Neuromuscular dysfunction Hypertension Obesity Plan: Continue with Rocephin Follow-up urine culture Chaves catheter in place GI and DVT prophylaxis
[2023-11-14] MEDS: ASCORBIC ACID 500 MG TAB PO SCH (21:09)
[2023-11-14] MEDS: ATORVASTATIN 10 MG TAB PO SCH (21:09)
[2023-11-15] MEDS: ASPIRIN 81 MG ONE ×2 (11:23→11:26)
[2023-11-15] MEDS: PANTOPRAZOLE 40 MG TABLET PO ONE ×2 (11:23→11:26)
[2023-11-15] MEDS: HYDROcodone/APAP 7.5-325MG 1 EACH TAB ONE ×6 (11:24→11:29)
[2023-11-15] MEDS: POTASSIUM CHLORIDE ER 20 MEQ TAB.ER PO ONE ×3 (11:24→11:26)
--- NOTE | 2023-11-15 11:51 | P.PN ---
Subjective Progress Note Date: 11/15/23 This is a pleasant 53 years old female who is bedridden with indwelling Chaves catheter and history of UTI. Presents with urinary signs symptoms associated with Chaves catheter and he was diagnosed with acute urinary tract infection Patient feeling better back to baseline. Remains on ceftriaxone pending urine culture. No other new complaints 11/14. Patient seen and examined. States she feels better. Denies any nausea or vomiting. Vital signs stable REVIEW OF SYSTEMS: CONSTITUTIONAL: No fever, no malaise,. CARDIOVASCULAR: No chest pain, no palpitations, no syncope. PULMONARY: No shortness of breath, no cough, GASTROINTESTINAL: No diarrhea, no nausea, no vomiting, no abdominal pain. NEUROLOGICAL: No headaches, no weakness, PHYSICAL EXAMINATION: GENERAL: The patient is alert and oriented x3, not in any acute distress. Well developed, well nourished. HEENT: Pupils are round and equally reacting to light. EOMI. No scleral icterus. No conjunctival pallor. Normocephalic, atraumatic. No pharyngeal erythema. No thyromegaly. CARDIOVASCULAR: S1 and S2 present. No murmurs, rubs, or gallops. PULMONARY: Chest is clear to auscultation, no wheezing or crackles. ABDOMEN: Soft, nontender, nondistended, normoactive bowel sounds. No palpable organomegaly. MUSCULOSKELETAL: No joint swelling or deformity. EXTREMITIES: No cyanosis, clubbing, or pedal edema. NEUROLOGICAL: Gross neurological examination did not reveal any focal deficits. SKIN: No rashes. Assessment and plan Acute urinary tract infection associated with Chaves catheter present on admission Bilateral leg stasis dermatitis Anemia Neuromuscular dysfunction Hypertension Obesity Monitor vital signs Monitor CBC Monitor CMP Follow-up on urine culture Follow-up on blood cultures and continue IV Rocephin DC fluids ID consulted Labs and medication were reviewed.. Continue same treatment. Continue with symptomatic treatment. Resume home medication. Monitor labs and vitals. DVT and GI prophylaxis. Further recommendations as per clinical course of the patient Dictation was produced using [employer] dictation software. please excuse any grammatical, word or spelling errors. Objective - Vital Signs Vital signs: Vital Signs Temp 98.0 F 11/15/23 07:05 Pulse 82 11/15/23 07:05 Resp 18 11/15/23 07:05 BP 127/84 11/15/23 07:05 Pulse Ox 99 11/15/23 07:05 FiO2 Intake & Output 11/14/23 11/15/23 11/15/23 18:59 06:59 18:59 Intake Total 200 Output Total 1200 300 Balance -1200 -300 200 Intake: Oral 200 Output: Urine 1200 300 Other: Voiding Method Indwelling Catheter Indwelling Catheter
[2023-11-16 07:00] LABS: Basophils % (A) 1 %; Eosinophils # (A) 0.2 k/uL (0-0.7); Eosinophils % (A) 6 %; HCT 32.4 % (34.0-46.0); HGB 10.6 gm/dL (11.4-16.0); Hypochromasia Moderate; Lymphocytes # (A) 0.6 k/uL (1.0-4.8); Lymphocytes % (A) 16 %; MCH 27.6 pg (25.0-35.0); MCHC 32.8 g/dL (31.0-37.0); MCV 84.2 fL (80.0-100.0); Mean Platelet Volume 7.6; Monocytes # (A) 0.2 k/uL (0-1.0); Monocytes % (A) 5 %; Neutrophils # (A) 2.6 k/uL (1.3-7.7); Neutrophils % (A) 70 %; Platelet Count 322 k/uL (150-450); RBC 3.84 m/uL (3.80-5.40); RDW 15.4 % (11.5-15.5); WBC 3.8 k/uL (3.8-10.6)
--- NOTE | 2023-11-16 08:26 | P.CONS ---
History of Present Illness - Reason for Consult Consult date: 11/15/23 Urinary tract infection Requesting physician: Tato Arango - Chief Complaint Weakness mental status changes x few days - History of Present Illness Patient is a 53-year-old female with a past medical history significant for MS bedbound status patient did have urine retention with chronic indwelling Austin catheter and also have a history of sacral and bilateral pos terior thigh wound area patient has been brought into the hospital few days ago for evaluation of mental status changes she was noted to have a positive UA concerning for a urinary tract infection patient was started on Rocephin infectious he was consulted today for further management of antibiotic therapy patient the time my evaluation denies having any fever or any chills patient apparently is back to her baseline as far as mentation denies having any headache or URI symptoms no chest pain shortness of breath or cough no nausea no vomiting no abdominal pain or diarrhea patient Austin catheter has been removed and urinary drainage system has been applied however the patient did have significant leakage of the urine around the device and excoriation of the sacral area per the nursing staff no diarrhea has been reported patient is currently afebrile did have white count of 3.8 today with the cultures currently pending Review of Systems Positive point and negatives has been mentioned in the HPI, complete review of systems was performed and all other systems are negative Past Medical History Past Medical History: Hyperlipidemia, Musculoskeletal Disorder, Neurologic Disorder, Pneumonia, Renal Disease, Skin Disorder Additional Past Medical History / Comment(s): Multiple sclerosis stage IV-wh eelchair bound, L side weaker than right, past renal failure with hemodialysis- last time was July 2016, neurogenic bladder with indwelling austin, past sepsis, iron deficiency anemia, wounds present on bilateral gluteal folds and sacral area History of Any Multi-Drug Resistant Organisms: ESBL, MRSA, VRE Year Discovered:: 06/19/23 MRSA; 06/19/23 ESBL; 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 She states she is mostly wheelchair bound-sit to stand device to chair. She has an IDC. Pt feeds herself. Smoking Status: Never smoker Past Alcohol Use History: None Reported Additional Past Alcohol Use History / Comment(s): Patient is a lifelong nonsmoker. She denies any alcohol abuse. Past Drug Use History: None Reported - Past Family History Father History Unknown: Yes Additional Family Medical History / Comment(s): PTS DAD LIVED IN [place]- SHE'S NOT SURE WHAT HE FROM. HE HAD HYPOTENSION. Mother Family Medical History: Coronary Artery Disease (CAD), Diabetes Mellitus, Hyperlipidemia, Hypertension Additional Family Medical History / Comment(s): CARDIAC STENTS Medications and Allergies Home Medications Medication Instructions Recorded Confirmed Type Potassium Chloride ER [K-Dur 20] 20 meq PO BID 01/12/19 09/24/23 History Aspirin 81 mg PO DAILY 09/15/19 09/24/23 History Sennosides [Senna] 8.6 mg PO BID 01/31/20 09/24/23 History Atorvastatin [Lipitor] 10 mg PO HS@199909/22/21 09/24/23 History Diroximel Fumarate [Vumerity] 462 mg PO BID@0700,1900 09/22/21 09/24/23 History Levothyroxine Sodium [Synthroid] 75 mcg PO DAILY 09/22/21 09/24/23 History Ascorbic Acid [Vitamin C] 500 mg PO DAILY 05/14/22 09/24/23 History Furosemide [Lasix] 20 mg PO DAILY 05/14/22 09/24/23 History Baclofen 10 mg PO TID@0700,1300,1900 12/22/22 09/24/23 History Multivitamins, Thera [Multivitamin 1 tab PO DAILY 12/22/22 09/24/23 History (formulary)] Folic Acid 0.4 mg PO BID 06/19/23 09/24/23 History Naloxone HCl 0.4 mg SQ ONCE PRN 06/19/23 09/24/23 History Nitroglycerin Sl Tabs [Nitrostat] 0.4 mg SUBLINGUAL Q5M PRN 06/19/23 09/24/23 History Menthol [Icy Hot] 1 patch TRANSDERM DAILY 08/16/23 09/24/23 History Gabapentin [Neurontin] 300 mg PO BID@0700,1900 3 Days #6 08/24/23 09/24/23 Rx cap Artificial Tears-Hypromellose 1 drop BOTH EYES DAILY 09/24/23 09/24/23 History [Artificial Tear Drops] Esomeprazole Magnesium [NexIUM] 20 mg PO DAILY 09/24/23 09/24/23 History Naloxone HCl [Narcan] 4 mg NASAL ONCE PRN 09/24/23 09/24/23 History Pro-Stat Sugar Free (Amino 30 ml PO DAILY 09/24/23 09/24/23 History Acids-Protein Hydrolysate) HYDROcodone/APAP 7.5-325MG [Anderson 1 tab PO QID@,,, #4 tab 09/28/23 Rx 7.5-325] Heparin Sodium,Porcine (1 ml) 5,000 unit SQ Q8HR each 09/28/23 Rx [Heparin Sodium] cefUROXime axetiL [Ceftin] 500 mg PO BID 7 Days #14 tab 09/28/23 Rx Allergies Allergy/AdvReac Type Severity Reaction Status Date / Time adhesive tape Allergy Rash/Hives Verified 09/24/23 12:51 cinnamon Allergy Rash/Hives Verified 09/24/23 12:51 Physical Exam Vitals: Vital Signs Temp Pulse Resp BP Pulse Ox 11/15/23 07:05 98.0 F 82 18 127/84 99 11/15/23 01:35 98.0 F 87 16 115/75 93 L 11/14/23 19:41 98.1 F 92 18 119/76 94 L 11/14/23 13:28 98.1 F 100 17 106/71 96 Intake and Output 11/14/23 11/15/23 11/15/23 22:59 06:59 14:59 Intake Total 200 Output Total 1200 300 Balance -1200 -300 200 Intake: Oral 200 Output: Urine 1200 300 Other: Voiding Method Indwelling Catheter GENERAL DESCRIPTION: Middle-aged female lying in bed, no distress. No tachypnea or accessory muscle of respiration use. HEENT: Shows Pallor , no scleral icterus. Oral mucous membrane is dry. No pharyngeal erythema or thrush NECK: Trachea central, no thyromegaly. LUNGS: Unlabored breathing. Clear to auscultation anteriorly. No wheeze or crackle. HEART: S1, S2, regular rate and rhythm. No loud murmur ABDOMEN: Soft, no tenderness , guarding or rigidity, no organomegaly EXTREMITIES: No edema of feet. SKIN: Did have a sacral and bilateral posterior thigh wound but no slough tissue or surrounding redness NEUROLOGICAL: The patient is awake, alert, oriented x3, mood and affect normal. Results CBC & Chem 7: 11/16/23 05:36 Assessment and Plan (1) Pressure ulcer of coccygeal region, stage 4 Current Visit: No Status: Acute Code(s): L89.154 - PRESSURE ULCER OF SACRAL REGION, STAGE 4 SNOMED Code(s): 48408810906182191 (2) Pressure ulcer of left buttock, stage 3 Current Visit: No Status: Acute Code(s): L89.323 - PRESSURE ULCER OF LEFT BUTTOCK, STAGE 3 SNOMED Code(s): 41393531260004 (3) Pressure ulcer of right buttock, stage 3 Current Visit: No Status: Acute Code(s): L89.313 - PRESSURE ULCER OF RIGHT BUTTOCK, STAGE 3 SNOMED Code(s): 97980059173293 (4) Urinary tract infection Current Visit: No Status: Acute Code(s): N39.0 - URINARY TRACT INFECTION, SITE NOT SPECIFIED SNOMED Code(s): 74826790 Plan: 1patient presented to hospital with mental status changes and weakness which is likely multifactorial more likely due to the catheter associated UTI Austin catheter has already been removed, as the patient did have urinary incontinence and high risk of worsening of her pressure ulcer will recommend replacement of the Austin catheter 2patient also have a pressure ulcer to the sacral and by lateral posterior thigh but the wound itself looks clean with no slough tissue 3Rocephin 2 g daily to continue while waiting for the culture to finalize We will follow on clinical condition and cultures to further adjust medication if needed Thank you for this consultation we will follow the patient along with you Dictation was produced using [employer] dictation software. please excuse any grammatical, word or spelling errors. Time with Patient: Greater than 30
[2023-11-16 10:27] LABS: ALT 15 U/L (8-44); AST 10 U/L (13-35); Albumin 3.8 g/dL (3.8-4.9); Albumin/Globulin Ratio 1.65 Ratio (1.60-3.17); Alkaline Phosphatase 73 U/L (41-126); BUN/Creat Ratio 25.38 Ratio (12.00-20.00); Blood Urea Nitrogen 20.3 mg/dL (9.0-27.0); Calcium 8.7 mg/dL (8.7-10.3); Chloride 106 mmol/L (96-109); Globulin 2.3 g/dL (1.6-3.3); Glucose 122 mg/dL (70-110); Potassium 4.4 mmol/L (3.5-5.5); Sodium 144 mmol/L (135-145); Total Bilirubin <0.2 mg/dL (0.3-1.2); Total Protein 6.1 g/dL (6.2-8.2)
--- NOTE | 2023-11-16 12:48 | P.PN ---
Subjective Progress Note Date: 11/16/23 Principal diagnosis: Reason for follow-up is catheter associated UTI and pressure ulcer Patient is a 53-year-old female with a past medical history significant for MS bedbound status patient did have urine retention with chronic indwelling Chaves catheter and also have a history of sacral and bilateral posterior thigh wound area patient has been brought into the hospital few days ago for evaluation of mental status changes and concerning for urinary tract infection. On today's evaluation that is 11/16/2023, the patient continues to be afebrile, the patient is on room air and breathing comfortably, the Pt denies having any chest pain or cough, the patient denies having any abdominal pain no vomiting or any diarrhea has been reported by the nursing staff. Patient white count is 3.8, creatinine 0.8 cultures are currently pending Objective - Vital Signs Vital signs: Vital Signs Temp 98.6 F 11/16/23 07:05 Pulse 80 11/16/23 07:05 Resp 17 11/16/23 07:05 BP 123/81 11/16/23 07:05 Pulse Ox 96 11/16/23 07:05 FiO2 Intake & Output 11/15/23 11/16/23 11/16/23 18:59 06:59 18:59 Intake Total 650 Output Total 2800 1400 Balance -2150 -1400 Intake: Oral 650 Output: Urine 2800 1400 Other: Voiding Method External Catheter Indwelling Catheter Indwelling Catheter # Voids 2 - Exam GENERAL DESCRIPTION: Middle-age female lying in bed in no distress RESPIRATORY SYSTEM: Unlabored breathing , decreased breath sounds at bases HEART: S1 S2 regular rate and rhythm , ABDOMEN: Soft , no tenderness EXTREMITIES: Bilateral lower extremity swelling no significant redness - Labs CBC & Chem 7: 11/16/23 05:36 11/16/23 05:36 Labs: Abnormal Lab Results - Last 24 Hours (Table) 11/16/23 11/16/23 Range/Units 05:36 05:36 Hgb 10.6 L (11.4-16.0) gm/dL Hct 32.4 L (34.0-46.0) % Lymphocytes # 0.6 L (1.0-4.8) k/uL Anion Gap 14.00 H (4.00-12.00) mmol/L BUN/Creatinine Ratio 25.38 H (12.00-20.00) Ratio Glucose 122 H (70-110) mg/dL Total Bilirubin <0.2 L (0.3-1.2) mg/dL AST 10 L (13-35) U/L Total Protein 6.1 L (6.2-8.2) g/dL Assessment and Plan (1) Pressure ulcer of coccygeal region, stage 4 Current Visit: No Status: Acute Code(s): L89.154 - PRESSURE ULCER OF SACRAL REGION, STAGE 4 SNOMED Code(s): 70734777385158351 (2) Pressure ulcer of left buttock, stage 3 Current Visit: No Status: Acute Code(s): L89.323 - PRESSURE ULCER OF LEFT BUTTOCK, STAGE 3 SNOMED Code(s): 41528784496691 (3) Pressure ulcer of right buttock, stage 3 Current Visit: No Status: Acute Code(s): L89.313 - PRESSURE ULCER OF RIGHT BUTTOCK, STAGE 3 SNOMED Code(s): 83819067281938 (4) Urinary tract infection Current Visit: No Status: Acute Code(s): N39.0 - URINARY TRACT INFECTION, SITE NOT SPECIFIED SNOMED Code(s): 15000974 Plan: 1patient presented to hospital with mental status changes and weakness which is likely multifactorial more likely due to the catheter associated UTI Chaves catheter has already been removed, as the patient did have urinary incontinence and high risk of worsening of her pressure ulcer, Chaves catheter has been replaced 2patient also have a pressure ulcer to the sacral and by lateral posterior thigh but the wound itself looks clean with no slough tissue 3patient is currently being treated with Rocephin 2 g daily to continue while waiting for the culture to finalize to determine discharge antibiotics Dictation was produced using [employer] dictation software. please excuse any grammatical, word or spelling errors. Time with Patient: Less than 30
--- NOTE | 2023-11-16 13:20 | P.PN ---
Subjective Progress Note Date: 11/16/23 This is a pleasant 53 years old female who is bedridden with indwelling Chaves catheter and history of UTI. Presents with urinary signs symptoms associated with Chaves catheter and he was diagnosed with acute urinary tract infection Patient feeling better back to baseline. Remains on ceftriaxone pending urine culture. No other new complaints 11/14. Patient seen and examined. States she feels better. Denies any nausea or vomiting. Vital signs stable 11/15. Patient seen and examined. No acute issues overnight. States she feels much better. REVIEW OF SYSTEMS: CONSTITUTIONAL: No fever, no malaise,. CARDIOVASCULAR: No chest pain, no palpitations, no syncope. PULMONARY: No shortness of breath, no cough, GASTROINTESTINAL: No diarrhea, no nausea, no vomiting, no abdominal pain. NEUROLOGICAL: No headaches, no weakness, PHYSICAL EXAMINATION: GENERAL: The patient is alert and oriented x3, not in any acute distress. Well developed, well nourished. HEENT: Pupils are round and equally reacting to light. EOMI. No scleral icterus. No conjunctival pallor. Normocephalic, atraumatic. No pharyngeal erythema. No thyromegaly. CARDIOVASCULAR: S1 and S2 present. No murmurs, rubs, or gallops. PULMONARY: Chest is clear to auscultation, no wheezing or crackles. ABDOMEN: Soft, nontender, nondistended, normoactive bowel sounds. No palpable organomegaly. MUSCULOSKELETAL: No joint swelling or deformity. EXTREMITIES: No cyanosis, clubbing, or pedal edema. NEUROLOGICAL: Gross neurological examination did not reveal any focal deficits. SKIN: No rashes. Assessment and plan Acute urinary tract infection associated with Chaves catheter present on admission Bilateral leg stasis dermatitis Anemia Neuromuscular dysfunction Hypertension Obesity Monitor vital signs Monitor CBC Monitor CMP Follow-up on urine culture Follow-up on blood cultures continue IV Rocephin ID following Labs and medication were reviewed.. Continue same treatment. Continue with symptomatic treatment. Resume home medication. Monitor labs and vitals. DVT and GI prophylaxis. Further recommendations as per clinical course of the patient Dictation was produced using [employer] dictation software. please excuse any grammatical, word or spelling errors. Objective - Vital Signs Vital signs: Vital Signs Temp 98.6 F 11/16/23 07:05 Pulse 80 11/16/23 07:05 Resp 17 11/16/23 07:05 BP 123/81 11/16/23 07:05 Pulse Ox 96 11/16/23 07:05 FiO2 Intake & Output 11/15/23 11/16/23 11/16/23 18:59 06:59 18:59 Intake Total 650 240 Output Total 2800 1400 Balance -2150 -1400 240 Intake: Oral 650 240 Output: Urine 2800 1400 Other: Voiding Method External Catheter Indwelling Catheter Indwelling Catheter # Voids 2 - Labs CBC & Chem 7: 11/16/23 05:36 11/16/23 05:36 Labs: Abnormal Lab Results - Last 24 Hours (Table) 11/16/23 11/16/23 Range/Units 05:36 05:36 Hgb 10.6 L (11.4-16.0) gm/dL Hct 32.4 L (34.0-46.0) % Lymphocytes # 0.6 L (1.0-4.8) k/uL Anion Gap 14.00 H (4.00-12.00) mmol/L BUN/Creatinine Ratio 25.38 H (12.00-20.00) Ratio Glucose 122 H (70-110) mg/dL Total Bilirubin <0.2 L (0.3-1.2) mg/dL AST 10 L (13-35) U/L Total Protein 6.1 L (6.2-8.2) g/dL
--- NOTE | 2023-11-17 12:25 | P.PN ---
Subjective Progress Note Date: 11/17/23 Principal diagnosis: Reason for follow-up is catheter associated UTI and pressure ulcer Patient is a 53-year-old female with a past medical history significant for MS bedbound status patient did have urine retention with chronic indwelling Chaves catheter and also have a history of sacral and bilateral posterior thigh wound area patient has been brought into the hospital few days ago for evaluation of mental status changes and concerning for urinary tract infection. On today's evaluation that is 11/17/2023, Patient is afebrile patient is currently on room air and denies having any shortness of breath, the patient denies any chest pain or cough, the patient denies any nausea vomiting did not have any abdominal pain and no diarrhea, patient mention feeling better wants to go home. Noted labs were obtained today culture not available in the system Objective - Vital Signs Vital signs: Vital Signs Temp 97.9 F 11/17/23 08:00 Pulse 82 11/17/23 08:00 Resp 17 11/17/23 08:00 BP 116/77 11/17/23 08:00 Pulse Ox 95 11/17/23 08:00 FiO2 Intake & Output 11/16/23 11/17/23 11/17/23 18:59 06:59 18:59 Intake Total 240 Output Total 2500 1999 Balance -2259 Intake: Oral 240 Output: Urine 2500 1999 Other: Voiding Method Indwelling Catheter Indwelling Catheter - Exam GENERAL DESCRIPTION: Middle-age female lying in bed in no distress RESPIRATORY SYSTEM: Unlabored breathing , decreased breath sounds at bases HEART: S1 S2 regular rate and rhythm , ABDOMEN: Soft , no tenderness EXTREMITIES: Bilateral lower extremity swelling no significant redness - Labs CBC & Chem 7: 11/16/23 05:36 11/16/23 05:36 Assessment and Plan (1) Pressure ulcer of coccygeal region, stage 4 Current Visit: No Status: Acute Code(s): L89.154 - PRESSURE ULCER OF SACRAL REGION, STAGE 4 SNOMED Code(s): 48092847295735163 (2) Pressure ulcer of left buttock, stage 3 Current Visit: No Status: Acute Code(s): L89.323 - PRESSURE ULCER OF LEFT BUTTOCK, STAGE 3 SNOMED Code(s): 33092517754714 (3) Pressure ulcer of right buttock, stage 3 Current Visit: No Status: Acute Code(s): L89.313 - PRESSURE ULCER OF RIGHT BUTTOCK, STAGE 3 SNOMED Code(s): 06359841692310 (4) Urinary tract infection Current Visit: No Status: Acute Code(s): N39.0 - URINARY TRACT INFECTION, SITE NOT SPECIFIED SNOMED Code(s): 23220409 Plan: 1patient presented to hospital with mental status changes and weakness which is likely multifactorial more likely due to the catheter associated UTI Chaves catheter has already been removed, as the patient did have urinary incontinence and high risk of worsening of her pressure ulcer, Chaves catheter has been replaced 2patient also have a pressure ulcer to the sacral and by lateral posterior thigh but the wound itself looks clean with no slough tissue 3patient seem to have shown clinical improvement on Rocephin consider 5-day course of oral Ceftin on discharge discussed with the admitting physician working on discharge Dictation was produced using [employer] dictation software. please excuse any grammatical, word or spelling errors. Time with Patient: Less than 30
[2023-11-17 12:35] VITALS: BP 110/64; PULSE 89; RESP 15; TEMP 97.8
--- NOTE | 2023-11-17 12:36 | P.DS ---
Providers Date of admission: 11/12/23 01:00 Expected date of discharge: 11/17/23 Attending physician: Clementine Mc Consults: 11/15/23 11:50 Consult Physician Routine Consulting Provider: Bobo Rivero Consult Reason/Comments: UTI Do you want consulting provider notified?: Yes Primary care physician: Stated None Hospital Course: Discharge diagnoses; Acute urinary tract infection associated with Chaves catheter present on admission Bilateral leg stasis dermatitis Anemia Neuromuscular dysfunction Hypertension Obesity Hospital course; This is a pleasant 53 years old female who is bedridden with indwelling Chaves catheter and history of UTI. Presents with urinary signs symptoms associated with Chaves catheter and he was diagnosed with acute urinary tract infection Patient feeling better back to baseline. Remains on ceftriaxone pending urine culture. No other new complaints 11/14. Patient seen and examined. States she feels better. Denies any nausea or vomiting. Vital signs stable 11/15. Patient seen and examined. No acute issues overnight. States she feels much better. 11/16. Patient seen and examined. ID recommended discharging patient on Ceftin for 5 more days. PHYSICAL EXAMINATION: GENERAL: The patient is alert and oriented x3, not in any acute distress. Well developed, well nourished. HEENT: Pupils are round and equally reacting to light. EOMI. No scleral icterus. No conjunctival pallor. Normocephalic, atraumatic. No pharyngeal erythema. No thyromegaly. CARDIOVASCULAR: S1 and S2 present. No murmurs, rubs, or gallops. PULMONARY: Chest is clear to auscultation, no wheezing or crackles. ABDOMEN: Soft, nontender, nondistended, normoactive bowel sounds. No palpable organomegaly. MUSCULOSKELETAL: No joint swelling or deformity. EXTREMITIES: No cyanosis, clubbing, or pedal edema. NEUROLOGICAL: Gross neurological examination did not reveal any focal deficits. SKIN: No rashes. Dictation was produced using [email or web address] dictation software. please excuse any grammatical, word or spelling errors. Plan - Discharge Summary New Discharge Prescriptions: Continue Potassium Chloride ER [K-Dur 20] 20 meq PO BID Aspirin 81 mg PO DAILY Sennosides [Senna] 8.6 mg PO BID Levothyroxine Sodium [Synthroid] 75 mcg PO DAILY Atorvastatin [Lipitor] 10 mg PO HS@2000 Ascorbic Acid [Vitamin C] 500 mg PO DAILY Naloxone HCl 0.4 mg SQ ONCE PRN PRN Reason: OVERDOSE Folic Acid 0.4 mg PO BID Menthol [Icy Hot] 1 patch TRANSDERM DAILY Artificial Tears-Hypromellose [Artificial Tear Drops] 1 drop BOTH EYES DAILY Gabapentin [Neurontin] 300 mg PO BID@0700,1900 3 Days #6 cap NS Diroximel Fumarate [Vumerity] 462 mg PO BID@0700,1900 Furosemide [Lasix] 20 mg PO DAILY Baclofen 10 mg PO TID@0700,1300,1900 Multivitamins, Thera [Multivitamin (formulary)] 1 tab PO DAILY Nitroglycerin Sl Tabs [Nitrostat] 0.4 mg SUBLINGUAL Q5M PRN PRN Reason: Chest Pain Pro-Stat Sugar Free (Amino Acids-Protein Hydrolysate) 30 ml PO DAILY Esomeprazole Magnesium [NexIUM] 20 mg PO DAILY Heparin Sodium,Porcine (1 ml) [Heparin Sodium] 5,000 unit SQ Q8HR each cefUROXime axetiL [Ceftin] 500 mg PO BID 5 Days #10 tab Changed HYDROcodone/APAP 7.5-325MG [Robinson 7.5-325] 1 tab PO Q6HR PRN 3 Days #9 tab NS PRN Reason: Pain Scale 6 To 10 Discontinued Naloxone HCl [Narcan] 4 mg NASAL ONCE PRN PRN Reason: OVERDOSE Discharge Medication List Potassium Chloride ER [K-Dur 20] 20 meq PO BID 01/12/19 [History] Aspirin 81 mg PO DAILY 09/15/19 [History] Sennosides [Senna] 8.6 mg PO BID 01/31/20 [History] Atorvastatin [Lipitor] 10 mg PO HS@199909/22/21 [History] Diroximel Fumarate [Vumerity] 462 mg PO BID@0700,1900 09/22/21 [History] Levothyroxine Sodium [Synthroid] 75 mcg PO DAILY 09/22/21 [History] Ascorbic Acid [Vitamin C] 500 mg PO DAILY 05/14/22 [History] Furosemide [Lasix] 20 mg PO DAILY 05/14/22 [History] Baclofen 10 mg PO TID@0700,1300,1900 12/22/22 [History] Multivitamins, Thera [Multivitamin (formulary)] 1 tab PO DAILY 12/22/22 [History] Folic Acid 0.4 mg PO BID 06/19/23 [History] Naloxone HCl 0.4 mg SQ ONCE PRN 06/19/23 [History] Nitroglycerin Sl Tabs [Nitrostat] 0.4 mg SUBLINGUAL Q5M PRN 06/19/23 [History] Menthol [Icy Hot] 1 patch TRANSDERM DAILY 08/16/23 [History] Artificial Tears-Hypromellose [Artificial Tear Drops] 1 drop BOTH EYES DAILY 09/24/23 [History] Esomeprazole Magnesium [NexIUM] 20 mg PO DAILY 09/24/23 [History] Pro-Stat Sugar Free (Amino Acids-Protein Hydrolysate) 30 ml PO DAILY 09/24/23 [History] Heparin Sodium,Porcine (1 ml) [Heparin Sodium] 5,000 unit SQ Q8HR each 09/28/23 [Rx] Gabapentin [Neurontin] 300 mg PO BID@0700,1900 3 Days #6 cap NS 11/17/23 [Rx] HYDROcodone/APAP 7.5-325MG [Robinson 7.5-325] 1 tab PO Q6HR PRN 3 Days #9 tab NS 11/17/23 [Rx] cefUROXime axetiL [Ceftin] 500 mg PO BID 5 Days #10 tab 11/17/23 [Rx] Follow up Appointment(s)/Referral(s): Bobo Rivero MD [STAFF PHYSICIAN] - 1 Week Discharge Disposition: TRANSFER TO SNF/ECF
--- NOTE | 2023-12-31 15:42 | XR ---
EXAM: XR Chest, 1 View CLINICAL HISTORY: Sepsis TECHNIQUE: Frontal view of the chest. COMPARISON: No relevant prior studies available. FINDINGS: Lungs: Low lung volumes, secondary to poor inspiration, which accentuates bronchovascular markings. No consolidation. Pleural space:Unremarkable. No pneumothorax. Heart:Cardiomegaly. Mediastinum:Unremarkable. Normal mediastinal contour. Bones/joints:Unremarkable. No acute fracture. IMPRESSION: Low lung volumes, secondary to poor inspiration, which accentuates bronchovascular markings. Radiologist: Pilo Ambrose MD Electronically Signed: 11/12/23 00:39 Study first marked ready to read at 23:13, study last marked ready to read at 23:13, initial results transmitted at 00:39 MTDD
== END 2023-11-17 14:50 | DRG 466 ==
LOC: 4SSUR 01:00 → UNDOADMIN 11-12 01:00 → UNDODISIN 11-17 14:50
PROVIDERS: ADMIT Hospitalist; ATTEND Hospitalist
DX: T83.511A Infection and inflammatory reaction due to indwelling urethral catheter, initial encounter (principal); Y84.6 Urinary catheterization as the cause of abnormal reaction of the patient, or of later complication, without mention of misadventure at the time of the procedure; Z74.01 Bed confinement status; N39.0 Urinary tract infection, site not specified; G93.41 Metabolic encephalopathy; E66.01 Morbid (severe) obesity due to excess calories; Z68.41 Body mass index [BMI] 40.0-44.9, adult; D50.9 Iron deficiency anemia, unspecified; G35 Multiple sclerosis; R33.9 Retention of urine, unspecified; E78.5 Hyperlipidemia, unspecified; I10 Essential (primary) hypertension; I87.2 Venous insufficiency (chronic) (peripheral); L89.154 Pressure ulcer of sacral region, stage 4; L89.313 Pressure ulcer of right buttock, stage 3; L89.323 Pressure ulcer of left buttock, stage 3; N31.9 Neuromuscular dysfunction of bladder, unspecified; Z99.3 Dependence on wheelchair; Z79.82 Long term (current) use of aspirin; Z79.890 Hormone replacement therapy; Z79.899 Other long term (current) drug therapy; Z87.440 Personal history of urinary (tract) infections
CPT/HCPCS: 71045; 80053; 85025; 87086; 93005; 96360; 99285

== ENCOUNTER 2024-02-20 06:11 | Inpatient (IN) | payer OTHER ==
--- NOTE | 2024-02-20 06:35 | ED ---
Fever HPI - General Chief Complaint: Fever Stated Complaint: Possible Sepsis Time Seen by Provider: 02/20/24 06:14 Source: patient, EMS, RN notes reviewed, old records reviewed, Caregiver Mode of arrival: EMS Limitations: physical limitation - History of Present Illness Initial Comments: This is a 53-year-old female presents emergency department via EMS from [facility] for evaluation possible sepsis. Patient probably developed fever, tachycardic and tachypneic this morning. Patient has complaint of back pain but this is chronic in nature. Patient does have underlying MS. Patient has had recurrent hospitalizations for UTI sepsis. She states she had a Austin catheter exchange on Wednesday symptoms started overnight. Patient denies any significant cough and states that she does not feel short of breath at this time. Patient was placed on 2 L of oxygen by EMS was given 500 mg of acetaminophen. Patient denies any abdominal pain denies any current nausea vomiting diarrhea denies any chest pain - Related Data Home Medications Medication Instructions Recorded Confirmed Potassium Chloride ER [K-Dur 20] 20 meq PO BID 01/12/19 09/24/23 Aspirin 81 mg PO DAILY 09/15/19 09/24/23 Sennosides [Senna] 8.6 mg PO BID 01/31/20 09/24/23 Atorvastatin [Lipitor] 10 mg PO HS@199909/22/21 09/24/23 Diroximel Fumarate [Vumerity] 462 mg PO BID@0700,1900 09/22/21 09/24/23 Levothyroxine Sodium [Synthroid] 75 mcg PO DAILY 09/22/21 09/24/23 Ascorbic Acid [Vitamin C] 500 mg PO DAILY 05/14/22 09/24/23 Furosemide [Lasix] 20 mg PO DAILY 05/14/22 09/24/23 Baclofen 10 mg PO TID@0700,1300,1900 12/22/22 09/24/23 Multivitamins, Thera [Multivitamin 1 tab PO DAILY 12/22/22 09/24/23 (formulary)] Folic Acid 0.4 mg PO BID 06/19/23 09/24/23 Naloxone HCl 0.4 mg SQ ONCE PRN 06/19/23 09/24/23 Nitroglycerin Sl Tabs [Nitrostat] 0.4 mg SUBLINGUAL Q5M PRN 06/19/23 09/24/23 Menthol [Icy Hot] 1 patch TRANSDERM DAILY 08/16/23 09/24/23 Artificial Tears-Hypromellose 1 drop BOTH EYES DAILY 09/24/23 09/24/23 [Artificial Tear Drops] Esomeprazole Magnesium [NexIUM] 20 mg PO DAILY 09/24/23 09/24/23 Pro-Stat Sugar Free (Amino 30 ml PO DAILY 09/24/23 09/24/23 Acids-Protein Hydrolysate) Previous Rx's Medication Instructions Recorded Heparin Sodium,Porcine (1 ml) 5,000 unit SQ Q8HR each 09/28/23 [Heparin Sodium] Gabapentin [Neurontin] 300 mg PO BID@0700,1900 3 Days #6 11/17/23 cap NS HYDROcodone/APAP 7.5-325MG [[place] 1 tab PO Q6HR PRN 3 Days #9 tab NS 11/17/23 7.5-325] cefuroxime axetiL [Ceftin] 500 mg PO BID 5 Days #10 tab 11/17/23 Allergies Allergy/AdvReac Type Severity Reaction Status Date / Time adhesive tape Allergy Rash/Hives Verified 09/24/23 12:51 cinnamon Allergy Rash/Hives Verified 09/24/23 12:51 Review of Systems ROS Statement: Those systems with pertinent positive or pertinent negative responses have been documented in the HPI. ROS Other: All systems not noted in ROS Statement are negative. Past Medical History Past Medical History: Hyperlipidemia, Musculoskeletal Disorder, Neurologic Disorder, Pneumonia, Renal Disease, Skin Disorder Additional Past Medical History / Comment(s): Multiple sclerosis stage IV- wheelchair bound, L side weaker than right, past renal failure with hemodialysis-last time was July 2016, neurogenic bladder with indwelling austin, past sepsis, iron deficiency anemia, wounds present on bilateral gluteal folds and sacral area History of Any Multi-Drug Resistant Organisms: ESBL, MRSA, VRE Date of last positivie culture/infection: 06/19/23 MRSA; 06/19/23 ESBL; 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 MDRO Source:: Blood-MRSA; Urine-VRE and ESBL Past Surgical History: No Surgical Hx Reported Additional Past Surgical History / Comment(s): LP, debridement decubitus sacral ulcer, hemodialysis cath since removed, picc lines Past Anesthesia/Blood Transfusion Reactions: No Reported Reaction Additional Past Anesthesia/Blood Transfusion Reaction / Comment(s): NEVER HAD ANY GENERAL ANES Past Psychological History: No Psychological Hx Reported Smoking Status: Never smoker Past Alcohol Use History: None Reported Past Drug Use History: None Reported - Past Family History Father History Unknown: Yes Additional Family Medical History / Comment(s): PTS DAD LIVED IN [place]- SHE'S NOT SURE WHAT HE FROM. HE HAD HYPOTENSION. Mother Family Medical History: Coronary Artery Disease (CAD), Diabetes Mellitus, Hyperlipidemia, Hypertension Additional Family Medical History / Comment(s): CARDIAC STENTS General Exam Limitations: physical limitation General appearance: alert, in no apparent distress Head exam: Present: atraumatic, normocephalic, normal inspection Eye exam: Present: normal appearance, PERRL, EOMI. Absent: scleral icterus, conjunctival injection, periorbital swelling ENT exam: Present: normal exam, mucous membranes moist Neck exam: Present: normal inspection, full ROM. Absent: tenderness, meningismus, lymphadenopathy Respiratory exam: Present: normal lung sounds bilaterally. Absent: respiratory distress, wheezes, rales, rhonchi, stridor Cardiovascular Exam: Present: normal rhythm, tachycardia, normal heart sounds. Absent: systolic murmur, diastolic murmur, rubs, gallop, clicks GI/Abdominal exam: Present: soft, normal bowel sounds. Absent: distended, tenderness, guarding, rebound, rigid Neurological exam: Present: alert, oriented X3 Skin exam: Present: warm, dry, intact, normal color. Absent: rash Course Vital Signs 02/20/24 02/20/24 02/20/24 06:12 06:45 07:46 Temperature 102.6 F H 102.5 F H Pulse Rate 144 H 133 H 130 H Respiratory 32 H 32 H 26 H Rate Blood Pressure 139/86 136/71 139/65 O2 Sat by Pulse 99 99 94 L Oximetry 02/20/24 09:02 Temperature 102.1 F H Pulse Rate 137 H Respiratory 26 H Rate Blood Pressure 128/55 O2 Sat by Pulse 95 Oximetry - Reevaluation(s) Reevaluation #1: 02/20/24 07:24 Fluid bolus ordered and IV antibiotics, fluid bolus ordered on ideal body weight of 57 kg. Procedures - Sepsis Sepsis Focused Exam #1 Time Sepsis Criteria Met: 08:33 Sepsis Focused Exam Date: 02/20/24 Sepsis Focused Exam Time: 08:34 Sepsis Focused Exam Complete: Yes Vital Signs & RN Notes Reviewed: Yes Capillary Refill: < 2 Seconds: Fingers, Toes Peripheral Pulses: Normal: Radial (R), Radial (L), Posterior Tibialis (R), Posterior Tibialis (L), Dorsalis Pedis (R), Dorsalis Pedis (L) Skin Color: Normal for Patient Respiratory Exam: normal lung sounds Cardiovascular Exam: normal rhythm, tachycardia Medical Decision Making - Medical Decision Making Was pt. sent in by a medical professional or institution (SURINDER Abreu, COM[facility] TRUCKER, urgent care, hospital, or [facility]...) When possible be specific @ -[place] Did you speak to anyone other than the patient for history (EMS, parent, family, police, friend...)? What history was obtained from this source @ -No Did you review nursing and triage notes (agree or disagree)? Why? @ -I reviewed and agree with nursing and triage notes Were old charts reviewed (outside hosp., previous admission, EMS record, old EKG, old radiological studies, urgent care reports/EKG's, [facility] records)? Report findings @ -Reviewed records from [facility] Differential Diagnosis (chest pain, altered mental status, abdominal pain women, abdominal pain men, vaginal bleeding, weakness, fever, dyspnea, syncope, headache, dizziness, GI bleed, back pain, seizure, CVA, palpatations, mental health, musculoskeletal)? @ -Differential Weakness: Hypoglycemia, shock, sepsis, hyponatremia, anemia, infection, AK, ETOH, adverse medicine reaction, overdose, stroke, this is not meant to be an all-inclusive list. EKG interpreted by me (3pts min.). @ -As above X-rays interpreted by me (1pt min.). @ -Chest x-ray shows poor positioning, possible infiltrate CT interpreted by me (1pt min.). @ -None done U/S interpreted by me (1pt. min.). @ -None done What testing was considered but not performed or refused? (CT, X-rays, U/S, labs)? Why? @ -None What meds were considered but not given or refused? Why? @ -None Did you discuss the management of the patient with other professionals (star pichardo i.e. , SURINDER, COMPRESS TRUCKER, lab, RT, psych nurse, 7th grade social studies teacher, supervisor bindery, teacher, zoology technical officer, case briefer)? Give summary @ -EM for admission Was smoking cessation discussed for >3mins.? @ -No Was critical care preformed (if so, how long)? @ -35 minutes Were there social determinants of health that impacted care today? How? (Homelessness, low income, unemployed, alcoholism, drug addiction, trans portation, low edu. Level, literacy, decrease access to med. care, group home, rehab)? @ -No Was there de-escalation of care discussed even if they declined (Discuss DNR or withdrawal of care, Hospice)? DNR status @ -No What co-morbidities impacted this encounter? (DM, HTN, Smoking, COPD, CAD, Cancer, CVA, ARF, Chemo, Hep., AIDS, mental health diagnosis, sleep apnea, morbid obesity)? @ -MS Was patient admitted / discharged? Hospital course, mention meds given and route, prescriptions, significant lab abnormalities, going to OR and other pertinent info. @ -Admitted patient presented for for possible sepsis, patient noted to be febrile, tachycardic, tachypneic. Patient found to have UTI questionable pneumonia felt less likely. Patient was given fluid bolus based on ideal body weight 60 kg. Patient was given 2 g of Rocephin, blood cultures were drawn. Patient did have a focus exam. Patient had maintenance fluids, repeat antibiotics, repeat lactic further observation and treatment. Undiagnosed new problem with uncertain prognosis? @ -No Drug Therapy requiring intensive monitoring for toxicity (Heparin, Nitro, Insulin, Cardizem)? @ -No Were any procedures done? @ -No Diagnosis/symptom? @ -UTI, sepsis Acute, or Chronic, or Acute on Chronic? @ -Acute Uncomplicated (without systemic symptoms) or Complicated (systemic symptoms)? @ -Complicated Side effects of treatment? @ -No Exacerbation, Progression, or Severe Exacerbation? @ -No Poses a threat to life or bodily function? How? (Chest pain, USA, AK, pneumonia, PE, COPD, DKA, ARF, appy, cholecystitis, CVA, Diverticulitis, Homicidal, Suicidal, threat to staff... and all critical care pts) @ -Yes, sepsis, possible endorgan failure - Lab Data Result diagrams: 02/20/24 06:28 02/20/24 06:28 Lab Results 02/20/24 02/20/24 02/20/24 Range/Units 06:28 06:28 06:28 WBC 8.8 (3.8-10.6) k/uL RBC 4.87 (3.80-5.40) m/uL Hgb 12.8 (11.4-16.0) gm/dL Hct 40.9 (34.0-46.0) % MCV 84.0 (80.0-100.0) fL MCH 26.3 (25.0-35.0) pg MCHC 31.3 (31.0-37.0) g/dL RDW 16.2 H (11.5-15.5) % Plt Count 251 (150-450) k/uL MPV 7.2 Neutrophils % 90 % Lymphocytes % 6 % Monocytes % 2 % Eosinophils % 1 % Basophils % 0 % Neutrophils # 7.9 H (1.3-7.7) k/uL Lymphocytes # 0.6 L (1.0-4.8) k/uL Monocytes # 0.2 (0-1.0) k/uL Eosinophils # 0.1 (0-0.7) k/uL Basophils # 0.0 (0-0.2) k/uL Hypochromasia Moderate Anisocytosis Slight Sodium 146 H (137-145) mmol/L Potassium 4.8 (3.5-5.1) mmol/L Chloride 104 (98-107) mmol/L Carbon Dioxide 27 (22-30) mmol/L Anion Gap 15 mmol/L BUN 28 H (7-17) mg/dL Creatinine 0.90 (0.52-1.04) mg/dL Est GFR (CKD-EPI)AfAm 85 (>60 ml/min/1.73 sqM) Est GFR (CKD-EPI)NonAf 74 (>60 ml/min/1.73 sqM) Glucose 144 H (74-99) mg/dL Plasma Lactic Acid Armando 4.2 H* (0.7-2.0) mmol/L Calcium 9.9 (8.4-10.2) mg/dL Phosphorus 5.0 H (2.5-4.5) mg/dL Magnesium 1.8 (1.6-2.3) mg/dL Total Bilirubin 1.0 (0.2-1.3) mg/dL AST 21 (14-36) U/L ALT 27 (4-34) U/L Alkaline Phosphatase 86 (38-126) U/L Total Protein 8.2 (6.3-8.2) g/dL Albumin 5.0 (3.5-5.0) g/dL Lipase 78 (23-300) U/L Urine Color Urine Appearance (Clear) Urine pH (5.0-8.0) Ur Specific [place] (1.001-1.035) Urine Protein (Negative) Urine Glucose (UA) (Negative) Urine Ketones (Negative) Urine Blood (Negative) Urine Nitrite (Negative) Urine Bilirubin (Negative) Urine Urobilinogen (<2.0) mg/dL Ur Leukocyte Esterase (Negative) Urine RBC (0-5) /hpf Urine WBC (0-5) /hpf Urine WBC Clumps (None) /hpf Ur Squamous Epith Cells (0-4) /hpf Urine Bacteria (None) /hpf Urine Mucus (None) /hpf Influenza Type A (PCR) (Not Detectd) Influenza Type B (PCR) (Not Detectd) RSV (PCR) (Not Detectd) SARS-CoV-2 (PCR) (Not Detectd) 02/20/24 02/20/24 Range/Units 06:34 08:00 WBC (3.8-10.6) k/uL RBC (3.80-5.40) m/uL Hgb (11.4-16.0) gm/dL Hct (34.0-46.0) % MCV (80.0-100.0) fL MCH (25.0-35.0) pg MCHC (31.0-37.0) g/dL RDW (11.5-15.5) % Plt Count (150-450) k/uL MPV Neutrophils % % Lymphocytes % % Monocytes % % Eosinophils % % Basophils % % Neutrophils # (1.3-7.7) k/uL Lymphocytes # (1.0-4.8) k/uL Monocytes # (0-1.0) k/uL Eosinophils # (0-0.7) k/uL Basophils # (0-0.2) k/uL Hypochromasia Anisocytosis Sodium (137-145) mmol/L Potassium (3.5-5.1) mmol/L Chloride (98-107) mmol/L Carbon Dioxide (22-30) mmol/L Anion Gap mmol/L BUN (7-17) mg/dL Creatinine (0.52-1.04) mg/dL Est GFR (CKD-EPI)AfAm (>60 ml/min/1.73 sqM) Est GFR (CKD-EPI)NonAf (>60 ml/min/1.73 sqM) Glucose (74-99) mg/dL Plasma Lactic Acid Armando (0.7-2.0) mmol/L Calcium (8.4-10.2) mg/dL Phosphorus (2.5-4.5) mg/dL Magnesium (1.6-2.3) mg/dL Total Bilirubin (0.2-1.3) mg/dL AST (14-36) U/L ALT (4-34) U/L Alkaline Phosphatase (38-126) U/L Total Protein (6.3-8.2) g/dL Albumin (3.5-5.0) g/dL Lipase (23-300) U/L Urine Color Yellow Urine Appearance Turbid H (Clear) Urine pH 8.0 (5.0-8.0) Ur Specific [place] 1.017 (1.001-1.035) Urine Protein 3+ H (Negative) Urine Glucose (UA) Negative (Negative) Urine Ketones Negative (Negative) Urine Blood Moderate H (Negative) Urine Nitrite Negative (Negative) Urine Bilirubin Negative (Negative) Urine Urobilinogen <2.0 (<2.0) mg/dL Ur Leukocyte Esterase Large H (Negative) Urine RBC 38 H (0-5) /hpf Urine WBC >182 H (0-5) /hpf Urine WBC Clumps Moderate H (None) /hpf Ur Squamous Epith Cells 3 (0-4) /hpf Urine Bacteria Moderate H (None) /hpf Urine Mucus Occasional H (None) /hpf Influenza Type A (PCR) Not Detected (Not Detectd) Influenza Type B (PCR) Not Detected (Not Detectd) RSV (PCR) Not Detected (Not Detectd) SARS-CoV-2 (PCR) Not Detected (Not Detectd) - EKG Data -: EKG Interpreted by Hi EKG Comments: EKG performed at 6: 18 sinus tachycardia with a rate of 140 NV 157 QRS 89 QT/QTc 287/369 Critical Care Time Critical Care Time: Yes Total Critical Care Time: 35 Disposition Clinical Impression: UTI (urinary tract infection), Multiple sclerosis, Sepsis Disposition: ADMITTED IP TO THIS HOSP Condition: Fair Referrals: Brianne Gomez DO [Primary Care Provider] - 1-2 days Time of Disposition: 08:47
[2024-02-20] MEDS: ACETAMINOPHEN TAB 500 MG TAB PO STA (06:41)
[2024-02-20] MEDS: IBUPROFEN 600 MG TAB PO STA (06:41)
[2024-02-20] MEDS: SODIUM CHLORIDE 0.9% 1,000 ML IV ONE ×2 (06:43→07:47)
--- NOTE | 2024-02-20 06:48 | XR ---
EXAMINATION TYPE: XR chest 1V DATE OF EXAM: 02/20/2024 COMPARISON: 11/11/2023 CLINICAL INDICATION: Female, 53 years old with history of fever; TECHNIQUE: Single frontal view of the chest is obtained. FINDINGS: Examination is markedly limited due to the patient's condition. Exam further limited by po or inspiratory effort. Opacity left lung base could represent crowding of normal pulmonary vasculatur e due to technique but pneumonic infiltrate not excluded. Evaluation of the left lung base is markedl y limited due to overlying calvarium. The right lung is essentially clear. IMPRESSION: Markedly limited study as described above. The possibility of a left lower lobe infiltra te cannot be excluded as described above. [facility], , 02/20/2024 6:46 AM
[2024-02-20 06:51] LABS: Anisocytosis Slight; Basophils % (A) 0 %; Eosinophils # (A) 0.1 k/uL (0-0.7); Eosinophils % (A) 1 %; HCT 40.9 % (34.0-46.0); HGB 12.8 gm/dL (11.4-16.0); Hypochromasia Moderate; Lymphocytes # (A) 0.6 k/uL (1.0-4.8); Lymphocytes % (A) 6 %; MCH 26.3 pg (25.0-35.0); MCHC 31.3 g/dL (31.0-37.0); Mean Platelet Volume 7.2; Monocytes # (A) 0.2 k/uL (0-1.0); Monocytes % (A) 2 %; Neutrophils # (A) 7.9 k/uL (1.3-7.7); Neutrophils % (A) 90 %; Platelet Count 251 k/uL (150-450); RBC 4.87 m/uL (3.80-5.40); RDW 16.2 % (11.5-15.5); WBC 8.8 k/uL (3.8-10.6)
[2024-02-20 07:03] LABS: ALT 27 U/L (4-34); AST 21 U/L (14-36); African American GFR (CKD) 85 (>60 ml/min/1.73 sqM); Alkaline Phosphatase 86 U/L (38-126); Anion Gap 15 mmol/L; Blood Urea Nitrogen 28 mg/dL (7-17); Calcium 9.9 mg/dL (8.4-10.2); Carbon Dioxide 27 mmol/L (22-30); Chloride 104 mmol/L (98-107); Glucose 144 mg/dL (74-99); Lipase 78 U/L (23-300); Magnesium 1.8 mg/dL (1.6-2.3); Non-African American GFR(CKD) 74 (>60 ml/min/1.73 sqM); Potassium 4.8 mmol/L (3.5-5.1); Sodium 146 mmol/L (137-145); Total Protein 8.2 g/dL (6.3-8.2)
[2024-02-20 08:14] LABS: Appearance,Urine Turbid (Clear); Bacteria,Urine Moderate /hpf; Bilirubin,Urine Negative (Negative); Blood,Urine Moderate (Negative); Color,Urine Yellow; Glucose,Urine (UA) Negative (Negative); Ketones,Urine Negative (Negative); Leukocyte Esterase,Urine Large (Negative); Mucus,Urine Occasional /hpf; Nitrite,Urine Negative (Negative); Protein,Urine 3+ (Negative); RBC,Urine 38 /hpf (0-5); Specific Gravity,Urine 1.017 (1.001-1.035); Squamous Epithelial Cell,Urine 3 /hpf (0-4); Urobilinogen,Urine <2.0 mg/dL (<2.0); WBC,Urine >182 /hpf (0-5)
[2024-02-20] MEDS ORDERED: ONDANSETRON 4 MG/2 ML VIAL IVP PRN (08:41)
[2024-02-20] MEDS ORDERED: IBUPROFEN 400 MG TAB PO PRN (08:41)
[2024-02-20] MEDS ORDERED: NALOXONE 0.4 MG/ML 1 ML VIAL IV PRN (08:41)
[2024-02-20] MEDS ORDERED: ACETAMINOPHEN TAB 325 MG TAB PO PRN (08:41)
[2024-02-20] MEDS: SODIUM CHLORIDE 0.9% 1,000 ML IV SCH (09:03)
--- NOTE | 2024-02-20 13:51 | P.HPIM ---
History of Present Illness H&P Date: 02/20/24 History of present illness; patient 53-year-old lady with past medical history significant for MS, hypothyroidism, hyperlipidemia who presented the ER for fevers. [facility] a [facility] a [facility] and has a chronic Austin. Patient had a Austin exchanged a couple of days back. Following that this morning nursing staff at the facility noticed the patient was having high fevers. Patient was very lethargic. Patient was feeling very cold. There was no complaint of chest pain. There was no complaint shortness of breath. There was no complaint of nausea or vomiting. Patient was also complaining of generalized body pains. Because of high fevers patient was sent to the ER Initial lab work done in the ER showed BBC 8.8, hemoglobin 12.8, platelet count 251, sodium 143, potassium 4.8, BUN 28, creatinine 0.90, lactate 4.2, phosphorus 5, UA showed large amount of leukocyte Estrace, urine WBC 182 Influenza A not detected Influenza B not detected RSV not detected COVID-19 not detected EKG done in the ER showed heart rate of 140, no ST segment elevation or depression seen, no T-wave inversions seen. Chest x-ray done in the ER showed possible left lower lobe infiltrate Patient admitted to internal medicine service REVIEW OF SYSTEMS: CONSTITUTIONAL: As mentioned above HEENT: No recent visual problems or hearing problems. Denied any sore throat. CARDIOVASCULAR: No orthopnea, PND, no palpitations, no syncope. PULMONARY: As mentioned above GASTROINTESTINAL as mentioned above NEUROLOGICAL: No headaches, no weakness, no numbness. HEMATOLOGICAL: Denies any bleeding or petechiae. GENITOURINARY: As mentioned MUSCULOSKELETAL/RHEUMATOLOGICAL: Denies any joint pain, swelling, or any muscle pain. ENDOCRINE: Denies any polyuria or polydipsia. PHYSICAL EXAMINATION: GENERAL: The patient is lethargic, ill looking HEENT: Pupils are round and equally reacting to light. EOMI. No scleral icterus. No conjunctival pallor. Normocephalic, atraumatic. No pharyngeal erythema. No thyromegaly. CARDIOVASCULAR: S1 and S2 present. No murmurs, rubs, or gallops. PULMONARY: Chest is clear to auscultation, no wheezing or crackles. ABDOMEN: Soft, nontender, nondistended, normoactive bowel sounds. No palpable organomegaly. MUSCULOSKELETAL: No joint swelling or deformity. EXTREMITIES: Chronic venous stasis changes of lower extremities bilaterally NEUROLOGICAL: Gross neurological examination did not reveal any focal deficits. SKIN: No rashes. Assessment and plan Sepsis UTI Lactic acidosis MS Hypertension Obesity Monitor vital signs Monitor CBC Monitor CMP Continue telemetry monitoring Serial lactate levels Ordered blood cultures Ordered urine cultures Ordered ultrasound of lower extremities Ordered ultrasound of kidneys Start IV cefepime Start IV fluids Resume home meds Consult ID Labs and medication were reviewed.. Continue same treatment. Continue with symptomatic treatment. Resume home medication. Monitor labs and vitals. DVT and GI prophylaxis. Further recommendations as per clinical course of the patient Dictation was produced using Sweeten dictation software. please excuse any grammatical, word or spelling errors. Past Medical History Past Medical History: Hyperlipidemia, Musculoskeletal Disorder, Neurologic Di sorder, Pneumonia, Renal Disease, Skin Disorder Additional Past Medical History / Comment(s): Multiple sclerosis stage IV- wheelchair bound, L side weaker than right, past renal failure with hemodialysis-last time was July 2016, neurogenic bladder with indwelling austin, past sepsis, iron deficiency anemia, wounds present on bilateral gluteal folds and sacral area History of Any Multi-Drug Resistant Organisms: ESBL, MRSA, VRE Date of last positivie culture/infection: 06/19/23 MRSA; 06/19/23 ESBL; 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 MDRO Source:: Blood-MRSA; Urine-VRE and ESBL Past Surgical History: No Surgical Hx Reported Additional Past Surgical History / Comment(s): LP, debridement decubitus sacral ulcer, hemodialysis cath since removed, picc lines Past Anesthesia/Blood Transfusion Reactions: No Reported Reaction Additional Past Anesthesia/Blood Transfusion Reaction / Comment(s): NEVER HAD ANY GENERAL ANES Past Psychological History: No Psychological Hx Reported Smoking Status: Never smoker Past Alcohol Use History: None Reported Past Drug Use History: None Reported - Past Family History Father History Unknown: Yes Additional Family Medical History / Comment(s): PTS DAD LIVED IN [place]- SHE'S NOT SURE WHAT HE FROM. HE HAD HYPOTENSION. Mother Family Medical History: Coronary Artery Disease (CAD), Diabetes Mellitus, Hyperlipidemia, Hypertension Additional Family Medical History / Comment(s): CARDIAC STENTS Medications and Allergies Home Medications Medication Instructions Recorded Confirmed Type Potassium Chloride ER [K-Dur 20] 20 meq PO BID 01/12/19 02/20/24 History Aspirin 81 mg PO DAILY 09/15/19 02/20/24 History Sennosides [Senna] 8.6 mg PO BID 01/31/20 02/20/24 History Atorvastatin [Lipitor] 10 mg PO HS 09/22/21 02/20/24 History Diroximel Fumarate [Vumerity] 462 mg PO BID@0700,1900 09/22/21 02/20/24 History Levothyroxine Sodium [Synthroid] 75 mcg PO DAILY 09/22/21 02/20/24 History Ascorbic Acid [Vitamin C] 500 mg PO HS 05/14/22 02/20/24 History Furosemide [Lasix] 20 mg PO DAILY 05/14/22 02/20/24 History Baclofen 10 mg PO TID@0700,1300,1900 12/22/22 02/20/24 History Folic Acid 0.4 mg PO BID 06/19/23 02/20/24 History Naloxone HCl 0.4 mg SQ ONCE PRN 06/19/23 02/20/24 History Menthol [Icy Hot] 1 patch TRANSDERM DAILY 08/16/23 02/20/24 History Artificial Tears-Hypromellose 1 drop BOTH EYES DAILY 09/24/23 02/20/24 History [Artificial Tear Drops] Esomeprazole Magnesium [NexIUM] 20 mg PO DAILY 09/24/23 02/20/24 History Pro-Stat Sugar Free (Amino 30 ml PO DAILY 09/24/23 02/20/24 History Acids-Protein Hydrolysate) Gabapentin [Neurontin] 300 mg PO BID@0700,1900 3 Days #6 11/17/23 02/20/24 Rx cap NS HYDROcodone/APAP 7.5-325MG [[place] 1 tab PO QID@07,13,,23 02/20/24 02/20/24 History 7.5-325] Multivit-Min/FA/Lycopen/Lutein 1 tab PO HS 02/20/24 02/20/24 History [Centrum Silver Tablet] Naloxone 0.4mg/Ml Injection 0.4 mg IV ONCE PRN 02/20/24 02/20/24 History Solution Allergies Allergy/AdvReac Type Severity Reaction Status Date / Time adhesive tape Allergy Rash/Hives Verified 09/24/23 12:51 cinnamon Allergy Rash/Hives Verified 09/24/23 12:51 Physical Exam Vitals: Vital Signs Temp Pulse Resp BP Pulse Ox 02/20/24 13:05 100.1 F H 110 H 24 101/56 96 02/20/24 11:09 124 H 24 106/58 95 02/20/24 10:05 101.3 F H 135 H 28 H 105/89 94 L 02/20/24 09:38 137 H 26 H 102/54 95 02/20/24 09:02 102.1 F H 137 H 26 H 128/55 95 02/20/24 07:46 102.5 F H 130 H 26 H 139/65 94 L 02/20/24 06:45 133 H 32 H 136/71 99 02/20/24 06:12 102.6 F H 144 H 32 H 139/86 99 Intake and Output 02/19/24 02/20/24 02/20/24 22:59 06:59 14:59 Other: Weight 113.398 kg Results CBC & Chem 7: 02/20/24 06:28 02/20/24 06:28 Labs: Abnormal Lab Results - Last 24 Hours (Table) 02/20/24 02/20/24 02/20/24 Range/Units 06:28 06:28 06:28 RDW 16.2 H (11.5-15.5) % Neutrophils # 7.9 H (1.3-7.7) k/uL Lymphocytes # 0.6 L (1.0-4.8) k/uL Sodium 146 H (137-145) mmol/L BUN 28 H (7-17) mg/dL Glucose 144 H (74-99) mg/dL Plasma Lactic Acid Armando 4.2 H* (0.7-2.0) mmol/L Phosphorus 5.0 H (2.5-4.5) mg/dL Urine Appearance (Clear) Urine Protein (Negative) Urine Blood (Negative) Ur Leukocyte Esterase (Negative) Urine RBC (0-5) /hpf Urine WBC (0-5) /hpf Urine WBC Clumps (None) /hpf Urine Bacteria (None) /hpf Urine Mucus (None) /hpf 02/20/24 Range/Units 08:00 RDW (11.5-15.5) % Neutrophils # (1.3-7.7) k/uL Lymphocytes # (1.0-4.8) k/uL Sodium (137-145) mmol/L BUN (7-17) mg/dL Glucose (74-99) mg/dL Plasma Lactic Acid Armando (0.7-2.0) mmol/L Phosphorus (2.5-4.5) mg/dL Urine Appearance Turbid H (Clear) Urine Protein 3+ H (Negative) Urine Blood Moderate H (Negative) Ur Leukocyte Esterase Large H (Negative) Urine RBC 38 H (0-5) /hpf Urine WBC >182 H (0-5) /hpf Urine WBC Clumps Moderate H (None) /hpf Urine Bacteria Moderate H (None) /hpf Urine Mucus Occasional H (None) /hpf
--- NOTE | 2024-02-20 14:29 | US ---
EXAMINATION TYPE: US venous doppler duplex LE BI DATE OF EXAM: 02/20/2024 2:18 PM COMPARISON: US 2023 CLINICAL INDICATION: Female, 53 years old with history of Swelling; , TECHNIQUE: The lower extremity deep venous system is examined utilizing real time linear array sonog jake with graded compression, color doppler sonography, and spectral doppler. SIDE PERFORMED: Bilateral FINDINGS: VESSELS IMAGED: Common Femoral Vein Deep Femoral Vein Greater Saphenous Vein Femoral Vein Popliteal Vein Small Saphenous Vein Proximal Calf Veins Difficult and limited study due to patient body habitus Right Leg: Visualized portions appear negative for DVT, popliteal vein not imaged due to patient milana ble to tolerate probe pressure Left Leg: Visualized portions appear negative for DVT, unable to obtain sagittal color images of the popliteal vein due to patient unable to tolerate probe pressure IMPRESSION: No ultrasound evidence for deep venous thrombosis. [facility], , 02/20/2024 2:27 PM
--- NOTE | 2024-02-20 14:29 | US ---
EXAMINATION TYPE: US kidneys/renal and bladder DATE OF EXAM: 02/20/2024 COMPARISON: US 2023 CLINICAL INDICATION: Female, 53 years old with history of Fevers; TECHNIQUE: Grayscale imaging of the bilateral kidneys and urinary bladder: FINDINGS: EXAM MEASUREMENTS: Right Kidney: 10.4 x 4.2 x 4.4 cm Left Kidney: not seen Ultrasonography reports technically limited study due to patient body habitus and suboptimal position ing. Right Kidney: 0.8cm stone lateral mid pole Left Kidney: not seen due to above limitations Bladder: not distended, austin catheter There is no evidence for hydronephrosis at this point in time. No nephrolithiasis is seen. No oliverio s are identified. The urinary bladder is anechoic. IMPRESSION: 1. Nonobstructing 8 mm calculus in the mid right kidney. No hydronephrosis. 2. Essentially nondiagnostic evaluation of the left kidney due to technical factors described above. [facility], , 02/20/2024 2:27 PM
[2024-02-20] MEDS: CEFEPIME 2 GM in SODIUM CHLORIDE 0.9% 100 ML IVPB SCH (18:18)
[2024-02-20] MEDS: HYDROcodone/APAP 5-325MG 1 EACH TAB PO PRN (21:13)
[2024-02-21] MEDS: MEROPENEM 500 MG in SODIUM CHLORIDE 0.9% 100 ML IVPB SCH (01:00)
[2024-02-21] MEDS: GABAPENTIN 300 MG CAP PO SCH (06:02)
[2024-02-21] MEDS: BACLOFEN 10 MG TAB PO SCH (06:02)
[2024-02-21] MEDS: LEVOTHYROXINE 75 MCG TAB PO SCH (06:02)
--- NOTE | 2024-02-21 08:48 | P.CONS ---
History of Present Illness - Reason for Consult Consult date: 02/20/24 Sepsis, UTI Requesting physician: Robel Garcia - Chief Complaint Fever x 1 day - History of Present Illness Patient is a 53-year-old female with a past medical history significant for MS in this patient who is bedbound did have a history of urinary retention requiring chronic indwelling Austin catheter and history of recurrent UTI also has done with multiple pressure ulcer to the sacral and bilateral upper thigh area patient has been brought into the hospital from the local residential concerning for sepsis as the patient has developed fever was tachycardic and tachypneic the morning of presentation to the hospital patient did have a chronic draining Austin catheter significantly was exchanged on Wednesday that is 2 days before the patient has been brought to the hospital and the patient symptoms started overnight patient denies having any headache or URI symptoms no chest pain shortness of breath cough no nausea no vomiting no abdominal pain or diarrhea patient also significant swelling to bilateral lower extremity however denies pain to the lower extremity patient on presentation to the hospital did have fever of 102.6 F patient was tachycardic but not hypotensive or hypoxic and no need for supplemental oxygen patient did have a white count of 8.8 with a left shift creatinine of 0.90 electrolytes has been normal liver enzymes are normal urine has been significantly positive influenza RSV COVID testing has been negative blood culture has been obtained which are currently pending patient did have chest x-ray markedly limited study possibility of left lower lobe infiltrate cannot be excluded patient did received dose of Rocephin infectious he was consulted for further management of antibiotic therapy Review of Systems Positive point and negatives has been mentioned in the HPI, complete review of systems was performed and all other systems are negative Past Medical History Past Medical History: Hyperlipidemia, Musculoskeletal Disorder, Neurologic Disorder, Pneumonia, Renal Disease, Skin Disorder Additional Past Medical History / Comment(s): Multiple sclerosis stage IV- wheelchair bound, L side weaker than right, past renal failure with hemodialysis-last time was July 2016, neurogenic bladder with indwelling austin, past sepsis, iron deficiency anemia, wounds present on bilateral gluteal folds and sacral area History of Any Multi-Drug Resistant Organisms: ESBL, MRSA, VRE Year Discovered:: 06/19/23 MRSA; 06/19/23 ESBL; 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 MDRO Source:: Blood-MRSA; Urine-VRE and ESBL Past Surgical History: No Surgical Hx Reported Additional Past Surgical History / Comment(s): LP, debridement decubitus sacral ulcer, hemodialysis cath since removed, picc lines Past Anesthesia/Blood Transfusion Reactions: No Reported Reaction Additional Past Anesthesia/Blood Transfusion Reaction / Comm: NEVER HAD ANY GENERAL ANES Past Psychological History: No Psychological Hx Reported Smoking Status: Never smoker Past Alcohol Use History: None Reported Past Drug Use History: None Reported - Past Family History Father History Unknown: Yes Additional Family Medical History / Comment(s): PTS DAD LIVED IN [place]- SHE'S NOT SURE WHAT HE FROM. HE HAD HYPOTENSION. Mother Family Medical History: Coronary Artery Disease (CAD), Diabetes Mellitus, Hyperlipidemia, Hypertension Additional Family Medical History / Comment(s): CARDIAC STENTS Medications and Allergies Home Medications Medication Instructions Recorded Confirmed Type Potassium Chloride ER [K-Dur 20] 20 meq PO BID 01/12/19 02/20/24 History Aspirin 81 mg PO DAILY 09/15/19 02/20/24 History Sennosides [Senna] 8.6 mg PO BID 01/31/20 02/20/24 History Atorvastatin [Lipitor] 10 mg PO HS 09/22/21 02/20/24 History Diroximel Fumarate [Vumerity] 462 mg PO BID@0700,1900 09/22/21 02/20/24 History Levothyroxine Sodium [Synthroid] 75 mcg PO DAILY 09/22/21 02/20/24 History Ascorbic Acid [Vitamin C] 500 mg PO HS 05/14/22 02/20/24 History Furosemide [Lasix] 20 mg PO DAILY 05/14/22 02/20/24 History Baclofen 10 mg PO TID@0700,1300,1900 12/22/22 02/20/24 History Folic Acid 0.4 mg PO BID 06/19/23 02/20/24 History Naloxone HCl 0.4 mg SQ ONCE PRN 06/19/23 02/20/24 History Menthol [Icy Hot] 1 patch TRANSDERM DAILY 08/16/23 02/20/24 History Artificial Tears-Hypromellose 1 drop BOTH EYES DAILY 09/24/23 02/20/24 History [Artificial Tear Drops] Esomeprazole Magnesium [NexIUM] 20 mg PO DAILY 09/24/23 02/20/24 History Pro-Stat Sugar Free (Amino 30 ml PO DAILY 09/24/23 02/20/24 History Acids-Protein Hydrolysate) Gabapentin [Neurontin] 300 mg PO BID@0700,1900 3 Days #6 11/17/23 02/20/24 Rx cap NS HYDROcodone/APAP 7.5-325MG [[place] 1 tab PO QID@07,13,19,23 02/20/24 02/20/24 History 7.5-325] Multivit-Min/FA/Lycopen/Lutein 1 tab PO HS 02/20/24 02/20/24 History [Centrum Silver Tablet] Naloxone 0.4mg/Ml Injection 0.4 mg IV ONCE PRN 02/20/24 02/20/24 History Solution Allergies Allergy/AdvReac Type Severity Reaction Status Date / Time adhesive tape Allergy Rash/Hives Verified 09/24/23 12:51 cinnamon Allergy Rash/Hives Verified 09/24/23 12:51 Physical Exam Vitals: Vital Signs Temp Pulse Resp BP Pulse Ox 02/20/24 11:09 124 H 24 106/58 95 02/20/24 10:05 101.3 F H 135 H 28 H 105/89 94 L 02/20/24 09:38 137 H 26 H 102/54 95 02/20/24 09:02 102.1 F H 137 H 26 H 128/55 95 02/20/24 07:46 102.5 F H 130 H 26 H 139/65 94 L 02/20/24 06:45 133 H 32 H 136/71 99 02/20/24 06:12 102.6 F H 144 H 32 H 139/86 99 Intake and Output 02/19/24 02/20/24 02/20/24 22:59 06:59 14:59 Other: Weight 113.398 kg GENERAL DESCRIPTION: Middle-aged female lying in bed, no distress. No tachypnea or accessory muscle of respiration use. HEENT: Shows Pallor , no scleral icterus. Oral mucous membrane is dry. No pharyngeal erythema or thrush NECK: Trachea central, no thyromegaly. LUNGS: Unlabored breathing. Clear to auscultation anteriorly. No wheeze or crackle. HEART: S1, S2, regular rate and rhythm. No loud murmur ABDOMEN: Soft, no tenderness , guarding or rigidity, no organomegaly EXTREMITIES: Diffuse swelling to bilateral lower extremity with some erythema warm to touch SKIN: No rash, no masses palpable. NEUROLOGICAL: The patient is lethargic but arousable mood and affect normal. Results CBC & Chem 7: 02/20/24 06:28 02/20/24 06:28 Labs: Abnormal Lab Results - Last 24 Hours (Table) 02/20/24 02/20/24 02/20/24 Range/Units 06:28 06:28 06:28 RDW 16.2 H (11.5-15.5) % Neutrophils # 7.9 H (1.3-7.7) k/uL Lymphocytes # 0.6 L (1.0-4.8) k/uL Sodium 146 H (137-145) mmol/L BUN 28 H (7-17) mg/dL Glucose 144 H (74-99) mg/dL Plasma Lactic Acid Armando 4.2 H* (0.7-2.0) mmol/L Phosphorus 5.0 H (2.5-4.5) mg/dL Urine Appearance (Clear) Urine Protein (Negative) Urine Blood (Negative) Ur Leukocyte Esterase (Negative) Urine RBC (0-5) /hpf Urine WBC (0-5) /hpf Urine WBC Clumps (None) /hpf Urine Bacteria (None) /hpf Urine Mucus (None) /hpf 02/20/24 Range/Units 08:00 RDW (11.5-15.5) % Neutrophils # (1.3-7.7) k/uL Lymphocytes # (1.0-4.8) k/uL Sodium (137-145) mmol/L BUN (7-17) mg/dL Glucose (74-99) mg/dL Plasma Lactic Acid Armando (0.7-2.0) mmol/L Phosphorus (2.5-4.5) mg/dL Urine Appearance Turbid H (Clear) Urine Protein 3+ H (Negative) Urine Blood Moderate H (Negative) Ur Leukocyte Esterase Large H (Negative) Urine RBC 38 H (0-5) /hpf Urine WBC >182 H (0-5) /hpf Urine WBC Clumps Moderate H (None) /hpf Urine Bacteria Moderate H (None) /hpf Urine Mucus Occasional H (None) /hpf Assessment and Plan (1) Sepsis Current Visit: Yes Status: Acute Code(s): A41.9 - SEPSIS, UNSPECIFIED ORGANISM SNOMED Code(s): 10642801 (2) Urinary tract infection Current Visit: Yes Status: Acute Code(s): N39.0 - URINARY TRACT INFECTION, SITE NOT SPECIFIED SNOMED Code(s): 15127865 Plan: 1patient presented to hospital with sepsis in this patient who did have a fever tachycardia white count with a left shift source is likely catheter assisted urine tract infection in this patient Austin catheter was just changed before her symptoms started patient also have significant swelling to bilateral extremity and some erythema underlying component of cellulitis lateral excluded chest x- ray did show some infiltrate however clinically not behaving as pneumonia. 2check Dopplers of bilateral lower extremity if negative will advise Tarik wrap to keep the swelling of the lower extremity down 3discontinue Rocephin 4start the patient cefepime 2 g every 8 hours while waiting for the workup to be completed We will follow on clinical condition and cultures to further adjust medication if needed Thank you for this consultation we will follow the patient along with you Dictation was produced using [employer] dictation software. please excuse any grammatical, word or spelling errors. Time with Patient: Greater than 30
[2024-02-21] MEDS: ASPIRIN 81 MG PO SCH (09:12)
[2024-02-21] MEDS: SENNOSIDES 8.6 MG TAB PO SCH (09:12)
[2024-02-21] MEDS: FUROSEMIDE 20 MG TAB PO SCH (09:12)
[2024-02-21] MEDS: ARTIFICIAL TEARS-HYPROMELLOSE DROPS 15 ML BTL BOTH EYES SCH (09:18)
[2024-02-21] MEDS: ATORVASTATIN 10 MG TAB PO SCH (21:15)
--- NOTE | 2024-02-22 06:17 | P.PN ---
Subjective Progress Note Date: 02/21/24 History of present illness; patient 53-year-old lady with past medical history significant for MS, hypothyroidism, hyperlipidemia who presented the ER for fevers. Patient is a resident of a [facility] and has a chronic Chaves. Patient had a Chaves exchanged a couple of days back. Following that this morning nursing staff at the facility noticed the patient was having high fevers. Patient was very lethargic. Patient was feeling very cold. There was no complaint of chest pain. There was no complaint shortness of breath. There was no complaint of nausea or vomiting. Patient was also complaining of generalized body pains. Because of high fevers patient was sent to the ER Initial lab work done in the ER showed BBC 8.8, hemoglobin 12.8, platelet count 251, sodium 143, potassium 4.8, BUN 28, creatinine 0.90, lactate 4.2, phosphorus 5, UA showed large amount of leukocyte Estrace, urine WBC 182 Influenza A not detected Influenza B not detected RSV not detected COVID-19 not detected EKG done in the ER showed heart rate of 140, no ST segment elevation or depression seen, no T-wave inversions seen. Chest x-ray done in the ER showed possible left lower lobe infiltrate Patient admitted to internal medicine service 02/21/2024 Patient is seen and evaluated in follow-up reports she lives at [facility] Patient is much more awake today and came in with concerns of urinary tract infection with sepsis with infectious disease following maintained on IV antibiotics. Initial blood cultures are showing positive and will repeat and await urine cultures. Patient has a chronic indwelling Chaves catheter and it was suggested to be replaced. Patient is currently afebrile with no reports of chest pain or shortness of breath. Patient reports she did have burning and pain with urination prior to hospitalization. Review of systems: Constitutional: No reports of fatigue, fever, or chills Cardiovascular: No reports of chest pain or palpitations Respiratory: No reports of shortness of breath or cough GI: No reports of nausea, vomiting, or diarrhea : Reports of pain and burning with urination previously Neurovascular: reports of chronic generalized weakness All medications have been reviewed PHYSICAL EXAMINATION: GENERAL: The patient is much more awake today, alert and oriented x 2-3, baseline, appears older than stated age, ill looking, morbidly obese HEENT: Pupils are round and equally reacting to light. EOMI. No scleral icterus. No conjunctival pallor. Normocephalic, atraumatic. No pharyngeal erythema. No thyromegaly. CARDIOVASCULAR: S1 and S2 present. No murmurs, rubs, or gallops. PULMONARY: Chest is clear to auscultation, no wheezing or crackles. ABDOMEN: Soft, obese, nontender, nondistended, normoactive bowel sounds. No palpable organomegaly. MUSCULOSKELETAL: No joint swelling or deformity. EXTREMITIES: Chronic venous stasis changes of lower extremities bilaterally NEUROLOGICAL: Gross neurological examination did not reveal any focal deficits. Diffusely weak SKIN: No rashes. Pale Assessment: Sepsis, present on admission secondary to acute urinary tract infection. Blood cultures also positive UTI, present on admission with chronic indwelling Chaves catheter Lactic acidosis secondary to assessment #1, improved MS, not in exacerbation Hypertension Morbid obesity with a BMI of 42.6 GI prophylaxis DVT prophylaxis Full code Plan: Infectious disease following and patient is maintained on IV antibiotics and await repeat urine culture. If not done so previously, recommend exchanging Chaves catheter Blood cultures were positive and repeat blood cultures ordered Repeat labs in the a.m. PT/OT therapy to evaluate Lower extremity Doppler was negative for DVT Home medications reviewed and resumed as appropriate Due to multiple complex medical issues, overall prognosis is guarded The impression and plan of care has been dictated by Kassie Huff, Nurse Practitioner as directed. Dr. Mehrdad MD I have performed a history and examination and MDM of this patient, discussed the same with the dictator, and agree with the dictator's assessment and plan as written ,documented as a scribe. Based on total visit time, I have performed more than 50% of the visit. Objective - Vital Signs Vital signs: Vital Signs Temp 97.7 F 02/21/24 04:22 Pulse 90 02/21/24 08:00 Resp 16 02/21/24 08:00 BP 125/75 02/21/24 08:00 Pulse Ox 99 02/21/24 08:00 FiO2 Intake & Output 02/20/24 02/21/24 02/21/24 18:59 06:59 18:59 Intake Total 118 Output Total 200 Balance -200 118 Weight 116 kg Intake: Oral 118 Output: Urine 200 Other: Voiding Method Indwelling Catheter - Labs CBC & Chem 7: 02/20/24 06:28 12/01/24 06:28 Labs: Microbiology - Last 24 Hours (Table) 02/20/24 06:28 Blood Culture Gram Stain - Preliminary Blood Blood Culture - Preliminary Molecular ID
--- NOTE | 2024-02-22 08:51 | P.PN ---
Subjective Progress Note Date: 02/21/24 Principal diagnosis: Reason for follow-up is sepsis/UTI Patient is a 53-year-old female with a past medical history significant for MS in this patient who is bedbound did have a history of urinary retention requiring chronic indwelling Chaves catheter and history of recurrent UTI also has done with multiple pressure ulcer to the sacral and bilateral upper thigh area patient was into the hospital concerning for fever sepsis did have a positive UA concerning for UTI and possible lower extremity cellulitis. On today's evaluation that is 02/21/2024, patient did have resolution of her fever and has been afebrile this morning, patient is breathing comfortably and is currently on room air, patient denies having any significant cough no chest pain, patient denies nausea vomiting or diarrhea and no abdominal pain. No laboratory blood culture with ESBL E. coli lower extremity Doppler negative for DVT abdominal bladder ultrasound nonobstructive calculus mid right kidney no hydronephrosis Objective - Vital Signs Vital signs: Vital Signs Temp 97.7 F 02/21/24 04:22 Pulse 99 02/21/24 12:00 Resp 16 02/21/24 12:00 BP 139/82 02/21/24 12:00 Pulse Ox 98 02/21/24 12:00 FiO2 Intake & Output 02/20/24 02/21/24 02/21/24 18:59 06:59 18:59 Intake Total 118 Output Total 200 Balance -200 118 Weight 116 kg Intake: Oral 118 Output: Urine 200 Other: Voiding Method Indwelling Catheter Indwelling Catheter - Exam GENERAL DESCRIPTION: Middle-age female lying in bed in no distress RESPIRATORY SYSTEM: Unlabored breathing , decreased breath sounds at bases HEART: S1 S2 regular rate and rhythm , ABDOMEN: Soft , no tenderness EXTREMITIES: Diffuse swelling bilateral extremities some redness - Labs CBC & Chem 7: 02/20/24 06:28 02/20/24 06:28 Labs: Microbiology - Last 24 Hours (Table) 02/20/24 06:28 Blood Culture Gram Stain - Preliminary Blood Blood Culture - Preliminary Escherichia coli Molecular ID 02/20/24 08:00 Urine Culture - Preliminary Urine,Voided Assessment and Plan (1) Sepsis Current Visit: Yes Status: Acute Code(s): A41.9 - SEPSIS, UNSPECIFIED ORGANISM SNOMED Code(s): 97061942 (2) Urinary tract infection Current Visit: Yes Status: Acute Code(s): N39.0 - URINARY TRACT INFECTION, SITE NOT SPECIFIED SNOMED Code(s): 87222228 (3) Infection due to ESBL-producing Escherichia coli Current Visit: Yes Status: Acute Code(s): A49.8 - OTHER BACTERIAL INFECTIONS OF UNSPECIFIED SITE; Z16.12 - EXTENDED SPECTRUM BETA LACTAMASE (ESBL) RESISTANCE SNOMED Code(s): 690233361 (4) Bacteremia Current Visit: No Status: Acute Code(s): R78.81 - BACTEREMIA SNOMED Code(s): 1235161 Plan: 1patient presented to hospital with sepsis in this patient who did have a fever tachycardia white count with a left shift source is likely catheter assisted urine tract infection in this patient Chaves catheter was just changed before her symptoms started patient also have significant swelling to bilateral extremity and some erythema underlying component of cellulitis lateral excluded chest x- ray did show some infiltrate however clinically not behaving as pneumonia. 2 Dopplers of bilateral lower extremity has been negative will advise Tarik wrap to keep the swelling of the lower extremity down 3blood culture positive for ESBL E. coli source likely urinary 4cefepime has been discontinued patient started on meropenem and will monitor clinical course closely Dictation was produced using [employer] dictation software. please excuse any grammatical, word or spelling errors. Time with Patient: Less than 30
[2024-02-22 08:57] LABS: ALT 33 U/L (4-34); AST 23 U/L (14-36); African American GFR (CKD) >90 (>60 ml/min/1.73 sqM); Albumin 3.5 g/dL (3.5-5.0); Alkaline Phosphatase 68 U/L (38-126); Anion Gap 7 mmol/L; Blood Urea Nitrogen 18 mg/dL (7-17); Calcium 8.7 mg/dL (8.4-10.2); Carbon Dioxide 26 mmol/L (22-30); Chloride 109 mmol/L (98-107); Glucose 167 mg/dL (74-99); Magnesium 1.7 mg/dL (1.6-2.3); Non-African American GFR(CKD) 85 (>60 ml/min/1.73 sqM); Potassium 3.8 mmol/L (3.5-5.1); Sodium 142 mmol/L (137-145); Total Bilirubin 0.6 mg/dL (0.2-1.3); Total Protein 6.1 g/dL (6.3-8.2)
[2024-02-22] MEDS: NYSTATIN 100,000 UNIT/GM POWD 15 GM TOPICAL SCH (13:11)
[2024-02-22] MEDS: ZINC OXIDE PASTE (Z-GUARD) 1 APPLIC TOPICAL SCH (13:11)
--- NOTE | 2024-02-22 15:50 | P.PN ---
Subjective Progress Note Date: 02/22/24 Principal diagnosis: Reason for follow-up is sepsis/UTI Patient is a 53-year-old female with a past medical history significant for MS in this patient who is bedbound did have a history of urinary retention requiring chronic indwelling Chaves catheter and history of recurrent UTI also has done with multiple pressure ulcer to the sacral and bilateral upper thigh area patient was into the hospital concerning for fever sepsis did have a positive UA concerning for UTI and possible lower extremity cellulitis. On today's evaluation that is 02/22/2024, Patient is afebrile this morning patient denies having any chest pain shortness of breath or cough, the patient is currently on room air, patient denies any abdominal pain no diarrhea no nausea no vomiting and no pain to the lower extremity. Patient did have a creatinine 0.80 no CBC was done today urine is growing gram- negative Objective - Vital Signs Vital signs: Vital Signs Temp 97.5 F L 02/22/24 12:33 Pulse 78 02/22/24 12:33 Resp 18 02/22/24 12:33 BP 125/84 02/22/24 12:33 Pulse Ox 96 02/22/24 12:33 FiO2 Intake & Output 02/21/24 02/22/24 02/22/24 18:59 06:59 18:59 Intake Total 354 240 118 Output Total 1800 600 Balance -1446 -360 118 Intake: Oral 354 240 118 Output: Urine 1800 600 Other: Voiding Method Indwelling Catheter Indwelling Catheter Indwelling Catheter # Bowel Movements 3 - Exam GENERAL DESCRIPTION: Middle-age female lying in bed in no distress RESPIRATORY SYSTEM: Unlabored breathing , decreased breath sounds at bases HEART: S1 S2 regular rate and rhythm , ABDOMEN: Soft , no tenderness EXTREMITIES: Diffuse swelling bilateral extremities some redness - Labs CBC & Chem 7: 02/20/24 06:28 02/22/24 08:27 Labs: Abnormal Lab Results - Last 24 Hours (Table) 02/22/24 Range/Units 08:27 Chloride 109 H (98-107) mmol/L BUN 18 H (7-17) mg/dL Glucose 167 H (74-99) mg/dL Total Protein 6.1 L (6.3-8.2) g/dL Microbiology - Last 24 Hours (Table) 02/20/24 08:00 Urine Culture - Preliminary Urine,Voided Gram Neg Bacilli 02/20/24 06:28 Blood Culture Gram Stain - Final Blood Blood Culture - Final Escherichia coli Molecular ID Assessment and Plan (1) Sepsis Current Visit: Yes Status: Acute Code(s): A41.9 - SEPSIS, UNSPECIFIED ORGANISM SNOMED Code(s): 54400794 (2) Urinary tract infection Current Visit: Yes Status: Acute Code(s): N39.0 - URINARY TRACT INFECTION, SITE NOT SPECIFIED SNOMED Code(s): 83665128 (3) Infection due to ESBL-producing Escherichia coli Current Visit: Yes Status: Acute Code(s): A49.8 - OTHER BACTERIAL INFECTIONS OF UNSPECIFIED SITE; Z16.12 - EXTENDED SPECTRUM BETA LACTAMASE (ESBL) RESISTANCE SNOMED Code(s): 320672032 (4) Bacteremia Current Visit: No Status: Acute Code(s): R78.81 - BACTEREMIA SNOMED Code(s): 5597220 Plan: 1patient presented to hospital with sepsis in this patient who did have a fever tachycardia white count with a left shift source is likely catheter assisted urine tract infection in this patient Chaves catheter was just changed before her symptoms started patient also have significant swelling to bilateral extremity and some erythema underlying component of cellulitis lateral excluded chest x- ray did show some infiltrate however clinically not behaving as pneumonia. 2 Dopplers of bilateral lower extremity has been negative, Tarik wrap to keep the swelling of the lower extremity down has been ordered but not applied 3blood culture positive for ESBL E. coli source likely urinary, urine culture currently growing gram-negative 4patient will be treated with meropenem will need IV antibiotic on discharge Dictation was produced using [employer] dictation software. please excuse any grammatical, word or spelling errors.
--- NOTE | 2024-02-22 19:04 | P.PN ---
Subjective Progress Note Date: 02/22/24 History of present illness; patient 53-year-old lady with past medical history significant for MS, hypothyroidism, hyperlipidemia who presented the ER for fevers. Patient is a resident of a [place] [facility] and has a chronic Chaves. Patient had a Chaves exchanged a couple of days back. Following that this morning nursing staff at the facility noticed the patient was having high fevers. Patient was very lethargic. Patient was feeling very cold. There was no complaint of chest pain. There was no complaint shortness of breath. There was no complaint of nausea or vomiting. Patient was also complaining of generalized body pains. Because of high fevers patient was sent to the ER Initial lab work done in the ER showed BBC 8.8, hemoglobin 12.8, platelet count 251, sodium 143, potassium 4.8, BUN 28, creatinine 0.90, lactate 4.2, phosphorus 5, UA showed large amount of leukocyte Estrace, urine WBC 182 Influenza A not detected Influenza B not detected RSV not detected COVID-19 not detected EKG done in the ER showed heart rate of 140, no ST segment elevation or depression seen, no T-wave inversions seen. Chest x-ray done in the ER showed possible left lower lobe infiltrate Patient admitted to internal medicine service 02/21/2024 Patient is seen and evaluated in follow-up reports she lives at [facility]. Patient is much more awake today and came in with concerns of urinary tract infection with sepsis with infectious disease following maintained on IV antibiotics. Initial blood cultures are showing positive and will repeat and await urine cultures. Patient has a chronic indwelling Chaves catheter and it was suggested to be replaced. Patient is currently afebrile with no reports of chest pain or shortness of breath. Patient reports she did have burning and pain with urination prior to hospitalization. 02/22/2024 Patient is seen in follow-up today reports to feeling well and is maintained on antibiotics with infectious disease following. Discussed with multiple nursing staff and will ensure that indwelling Chaves catheter that was chronically placed [facility] was exchanged either upon ED admission or unit admission. Repeat urinalysis is ordered and pending once new catheter is placed. Patient is maintained on IV antibiotics with infectious disease following and preliminary blood cultures were also positive with ESBL. Repeat blood cultures have been negative and awaiting finalized urine cultures. Patient is afebrile with no reports of chest pain or shortness of breath. Review of systems: Constitutional: No reports of fatigue, fever, or chills Cardiovascular: No reports of chest pain or palpitations Respiratory: No reports of shortness of breath or cough GI: No reports of nausea, vomiting, or diarrhea : Reports of pain and burning with urination previously that is subsided Neurovascular: reports of chronic generalized weakness All medications have been reviewed PHYSICAL EXAMINATION: GENERAL: The patient is much more awake today, alert and oriented x 2-3, baseline, appears older than stated age, ill looking, morbidly obese HEENT: Pupils are round and equally reacting to light. EOMI. No scleral icterus. No conjunctival pallor. Normocephalic, atraumatic. No pharyngeal erythema. No thyromegaly. CARDIOVASCULAR: S1 and S2 present. No murmurs, rubs, or gallops. PULMONARY: Chest is clear to auscultation, no wheezing or crackles. ABDOMEN: Soft, obese, nontender, nondistended, normoactive bowel sounds. No palpable organomegaly. MUSCULOSKELETAL: No joint swelling or deformity. EXTREMITIES: Chronic venous stasis changes of lower extremities bilaterally NEUROLOGICAL: Gross neurological examination did not reveal any focal deficits. Diffusely weak SKIN: No rashes. Pale Assessment: Sepsis, present on admission secondary to acute urinary tract infection. Blood cultures also positive with ESBL UTI, present on admission with chronic indwelling Chaves catheter Lactic acidosis secondary to assessment #1, improved MS, not in exacerbation Hypertension Stage III pressure ulcer to the buttock, present on admission Stage IV pressure ulcer to the left ischium, present on admission Morbid obesity with a BMI of 42.6 GI prophylaxis DVT prophylaxis Full code Plan: Infectious disease following and patient is maintained on IV antibiotics and await repeat urine culture. If not done so previously, recommend exchanging Chaves catheter if has not already been done so. Nursing staff was not aware if it was exchanged upon ED admission. Repeat urinalysis is ordered once indwelling Chaves catheter is exchanged Blood cultures were positive with ESBL and repeat blood cultures are negative Repeat labs in the a.m. Plan will be for patient to return to [facility] once stabilized and determined on appropriate antibiotics Lower extremity Doppler was negative for DVT Home medications reviewed and resumed as appropriate Due to multiple complex medical issues, overall prognosis is guarded The impression and plan of care has been dictated by Kassie Huff, Nurse Practitioner as directed. Dr. Mehrdad MD I have performed a history and examination and MDM of this patient, discussed the same with the dictator, and agree with the dictator's assessment and plan as written ,documented as a scribe. Based on total visit time, I have performed more than 50% of the visit. Objective - Vital Signs Vital signs: Vital Signs Temp 97.5 F L 02/22/24 12:33 Pulse 78 02/22/24 12:33 Resp 18 02/22/24 12:33 BP 125/84 02/22/24 12:33 Pulse Ox 96 02/22/24 12:33 FiO2 Intake & Output 02/22/24 02/22/24 02/23/24 06:59 18:59 06:59 Intake Total 240 358 Output Total 600 1500 Balance -360 -1142 Intake: Oral 240 358 Output: Urine 600 1500 Other: Voiding Method Indwelling Catheter Indwelling Catheter - Labs CBC & Chem 7: 02/20/24 06:28 02/22/24 08:27 Labs: Abnormal Lab Results - Last 24 Hours (Table) 02/22/24 Range/Units 08:27 Chloride 109 H (98-107) mmol/L BUN 18 H (7-17) mg/dL Glucose 167 H (74-99) mg/dL Total Protein 6.1 L (6.3-8.2) g/dL Microbiology - Last 24 Hours (Table) 02/21/24 10:28 Blood Culture - Preliminary Blood 02/20/24 08:00 Urine Culture - Preliminary Urine,Voided Gram Neg Bacilli 02/20/24 06:28 Blood Culture Gram Stain - Final Blood Blood Culture - Final Escherichia coli Molecular ID
[2024-02-23 08:52] LABS: BUN/Creat Ratio 20.78 Ratio (12.00-20.00); Blood Urea Nitrogen 18.7 mg/dL (9.0-27.0); Calcium 8.4 mg/dL (8.7-10.3); Carbon Dioxide 23.1 mmol/L (21.6-31.8); Chloride 109 mmol/L (96-109); Glucose 118 mg/dL (70-110); Potassium 3.7 mmol/L (3.5-5.5); Sodium 146 mmol/L (135-145)
[2024-02-23 09:17] LABS: Basophils # (A) 0.02 X 10*3/uL (0.00-0.10); Basophils % (A) 0.5 %; Elliptocytes 2+; Eosinophils # (A) 0.15 X 10*3/uL (0.04-0.35); Eosinophils % (A) 3.8 %; HCT 32.8 % (37.2-46.3); HGB 9.8 g/dL (12.0-15.0); MCH 25.9 pg (27.0-32.0); MCHC 29.9 g/dL (32.0-37.0); MCV 86.5 FL (80.0-97.0); Mean Platelet Volume 10.1 FL (9.5-12.2); Monocytes % (A) 7.5 %; NRBC Per 100 WBC 0 X 10*3/uL (0.00-0.01); Neutrophils % (A) 72.4 %; Platelet Count 202 X 10*3/uL (140-440); RBC 3.79 X 10*6/uL (4.10-5.20); RDW 17.2 % (11.5-14.5)
[2024-02-23 13:54] VITALS: BMI 42.5
--- NOTE | 2024-02-23 22:59 | P.PN ---
Subjective Progress Note Date: 02/23/24 Principal diagnosis: Reason for follow-up is sepsis/UTI Patient is a 53-year-old female with a past medical history significant for MS in this patient who is bedbound did have a history of urinary retention requiring chronic indwelling Chaves catheter and history of recurrent UTI also has done with multiple pressure ulcer to the sacral and bilateral upper thigh area patient was into the hospital concerning for fever sepsis did have a positive UA concerning for UTI and possible lower extremity cellulitis. On today's evaluation that is 02/23/2024,the patient denies any fever or any chills, patient is breathing comfortably on room air, the patient denies chest pain shortness of breath and no significant cough, patient denies abdominal pain, no nausea vomiting or diarrhea. Mention feeling better. Patient white count is 4.0 creatinine 0.9 blood culture repeat so far negative Objective - Vital Signs Vital signs: Vital Signs Temp 97.7 F 02/23/24 12:49 Pulse 72 02/23/24 12:49 Resp 16 02/23/24 12:49 BP 135/80 02/23/24 12:49 Pulse Ox 95 02/23/24 12:49 FiO2 Intake & Output 02/22/24 02/23/24 02/23/24 18:59 06:59 18:59 Intake Total 358 720 Output Total 1500 325 300 Balance -1142 -325 420 Intake: Oral 358 720 Output: Urine 1500 325 300 Uretheral (Chaves) 300 Other: Voiding Method Indwelling Catheter Indwelling Catheter Indwelling Catheter - Exam GENERAL DESCRIPTION: Middle-age female lying in bed in no distress RESPIRATORY SYSTEM: Unlabored breathing , decreased breath sounds at bases HEART: S1 S2 regular rate and rhythm , ABDOMEN: Soft , no tenderness EXTREMITIES: Diffuse swelling bilateral extremities some redness - Labs CBC & Chem 7: 02/23/24 05:28 02/23/24 05:28 Labs: Abnormal Lab Results - Last 24 Hours (Table) 02/23/24 02/23/24 Range/Units 05:28 05:28 WBC 4.00 L (4.50-10.00) X 10*3/uL RBC 3.79 L (4.10-5.20) X 10*6/uL Hgb 9.8 L (12.0-15.0) g/dL Hct 32.8 L (37.2-46.3) % MCH 25.9 L (27.0-32.0) pg MCHC 29.9 L (32.0-37.0) g/dL RDW 17.2 H (11.5-14.5) % Lymphocytes # 0.60 L (0.90-5.00) X 10*3/uL Elliptocytes 2+ A Sodium 146 H (135-145) mmol/L Anion Gap 13.90 H (4.00-12.00) mmol/L BUN/Creatinine Ratio 20.78 H (12.00-20.00) Ratio Glucose 118 H (70-110) mg/dL Calcium 8.4 L (8.7-10.3) mg/dL Microbiology - Last 24 Hours (Table) 02/21/24 10:28 Blood Culture - Preliminary Blood Assessment and Plan (1) Sepsis Current Visit: Yes Status: Acute Code(s): A41.9 - SEPSIS, UNSPECIFIED ORGANISM SNOMED Code(s): 39279718 (2) Urinary tract infection Current Visit: Yes Status: Acute Code(s): N39.0 - URINARY TRACT INFECTION, SITE NOT SPECIFIED SNOMED Code(s): 71074791 (3) Infection due to ESBL-producing Escherichia coli Current Visit: Yes Status: Acute Code(s): A49.8 - OTHER BACTERIAL INFECTIONS OF UNSPECIFIED SITE; Z16.12 - EXTENDED SPECTRUM BETA LACTAMASE (ESBL) RESISTANCE SNOMED Code(s): 788911224 (4) Bacteremia Current Visit: No Status: Acute Code(s): R78.81 - BACTEREMIA SNOMED Code(s): 0712322 Plan: 1patient presented to hospital with sepsis in this patient who did have a fever tachycardia white count with a left shift source is likely catheter assisted urine tract infection in this patient Chaves catheter was just changed before her symptoms started patient also have significant swelling to bilateral extremity and some erythema underlying component of cellulitis lateral excluded chest x- ray did show some infiltrate however clinically not behaving as pneumonia. 2 Dopplers of bilateral lower extremity has been negative, Tarik wrap to keep the swelling of the lower extremity down 3blood culture positive for ESBL E. coli source likely urinary, urine culture currently growing gram-negative 4patient will be treated with meropenem, patient will be able to get a midline tomorrow if the blood culture repeat negative for outpatient IV Invanz therapy Dictation was produced using [employer] software. please excuse any grammatical, word or spelling errors. Time with Patient: Less than 30
[2024-02-24 01:31] VITALS: RESP 18
--- NOTE | 2024-02-24 06:12 | P.PN ---
Subjective Progress Note Date: 02/23/24 History of present illness; patient 53-year-old lady with past medical history significant for MS, hypothyroidism, hyperlipidemia who presented the ER for fevers. Patient is a resident of a custodial and has a chronic Chaves. Patient had a Chaves exchanged a couple of days back. Following that this morning nursing staff at the facility noticed the patient was having high fevers. Patient was very lethargic. Patient was feeling very cold. There was no complaint of chest pain. There was no complaint shortness of breath. There was no complaint of nausea or vomiting. Patient was also complaining of generalized body pains. Because of high fevers patient was sent to the ER Initial lab work done in the ER showed BBC 8.8, hemoglobin 12.8, platelet count 251, sodium 143, potassium 4.8, BUN 28, creatinine 0.90, lactate 4.2, phosphorus 5, UA showed large amount of leukocyte Estrace, urine WBC 182 Influenza A not detected Influenza B not detected RSV not detected COVID-19 not detected EKG done in the ER showed heart rate of 140, no ST segment elevation or depression seen, no T-wave inversions seen. Chest x-ray done in the ER showed possible left lower lobe infiltrate Patient admitted to internal medicine service 02/21/2024 Patient is seen and evaluated in follow-up reports she lives at [facility]. Patient is much more awake today and came in with concerns of urinary tract infection with sepsis with infectious disease following maintained on IV antibiotics. Initial blood cultures are showing positive and will repeat and await urine cultures. Patient has a chronic indwelling Chaves catheter and it was suggested to be replaced. Patient is currently afebrile with no reports of chest pain or shortness of breath. Patient reports she did have burning and pain with urination prior to hospitalization. 02/22/2024 Patient is seen in follow-up today reports to feeling well and is maintained on antibiotics with infectious disease following. Discussed with multiple nursing staff and will ensure that indwelling Chaves catheter that was chronically placed at [facility] was exchanged either upon ED admission or unit admission. Repeat urinalysis is ordered and pending once new catheter is placed. Patient is maintained on IV antibiotics with infectious disease following and preliminary blood cultures were also positive with ESBL. Repeat blood cultures have been negative and awaiting finalized urine cultures. Patient is afebrile with no reports of chest pain or shortness of breath. 02/23/2024 Patient is seen in follow-up with no acute overnight issues noted. Patient did have indwelling Chaves catheter exchanged and is maintained on antibiotics with infectious disease following. Blood cultures repeated and are negative thus far. Patient will likely receive a midline and IV antibiotics on discharge. Plan is to return to [facility] where she resides. Patient is afebrile and denies chest pain or shortness of breath. Patient reports to tolerating diet with no reported nausea or vomiting. Review of systems: Constitutional: No reports of fatigue, fever, or chills Cardiovascular: No reports of chest pain or palpitations Respiratory: No reports of shortness of breath or cough GI: No reports of nausea, vomiting, or diarrhea : Reports of pain and burning with urination previously that is subsided Neurovascular: reports of chronic generalized weakness All medications have been reviewed PHYSICAL EXAMINATION: GENERAL: The patient is much more awake today, alert and oriented x 2-3, baseline, appears older than stated age, ill looking, morbidly obese HEENT: Pupils are round and equally reacting to light. EOMI. No scleral icterus. No conjunctival pallor. Normocephalic, atraumatic. No pharyngeal erythema. No thyromegaly. CARDIOVASCULAR: S1 and S2 present. No murmurs, rubs, or gallops. PULMONARY: Chest is clear to auscultation, no wheezing or crackles. ABDOMEN: Soft, obese, nontender, nondistended, normoactive bowel sounds. No palpable organomegaly. MUSCULOSKELETAL: No joint swelling or deformity. EXTREMITIES: Chronic venous stasis changes of lower extremities bilaterally NEUROLOGICAL: Gross neurological examination did not reveal any focal deficits. Diffusely weak SKIN: No rashes. Pale Assessment: Sepsis, present on admission secondary to acute urinary tract infection. Blood cultures also positive with ESBL. Repeat blood cultures are negative UTI, present on admission secondary to chronic indwelling Chaves catheter Lactic acidosis secondary to assessment #1, improved MS, not in exacerbation Hypertension Stage III pressure ulcer to the buttock, present on admission Stage IV pressure ulcer to the left ischium, present on admission Morbid obesity with a BMI of 42.6 GI prophylaxis DVT prophylaxis Full code Plan: Infectious disease following and patient is maintained on IV antibiotics and await repeat urine culture. Chaves catheter has been exchanged. Blood cultures were positive with ESBL and repeat blood cultures are negative. If remains negative patient will receive a midline and continue a short course o f IV antibiotics in the form of ertapenem on discharge Plan will be for patient to return to [facility] once stabilized and determined on appropriate antibiotics Lower extremity Doppler was negative for DVT Home medications reviewed and resumed as appropriate Due to multiple complex medical issues, overall prognosis is guarded Possible discharge planning in the next 24 to 48 hours to [facility] The impression and plan of care has been dictated by Kassie Huff, Nurse Prac titioner as directed. Dr. Mehrdad MD I have performed a history and examination and MDM of this patient, discussed the same with the dictator, and agree with the dictator's assessment and plan as written ,documented as a scribe. Based on total visit time, I have performed more than 50% of the visit. Objective - Vital Signs Vital signs: Vital Signs Temp 98.1 F 02/23/24 07:05 Pulse 81 02/23/24 07:05 Resp 16 02/23/24 07:05 BP 140/83 02/23/24 07:05 Pulse Ox 97 02/23/24 07:05 FiO2 Intake & Output 02/22/24 02/23/24 02/23/24 18:59 06:59 18:59 Intake Total 358 240 Output Total 1500 325 300 Balance -1142 -325 -60 Intake: Oral 358 240 Output: Urine 1500 325 300 Uretheral (Chaves) 300 Other: Voiding Method Indwelling Catheter Indwelling Catheter - Labs CBC & Chem 7: 02/23/24 05:28 02/23/24 05:28 Labs: Abnormal Lab Results - Last 24 Hours (Table) 02/23/24 Range/Units 05:28 Sodium 146 H (135-145) mmol/L Anion Gap 13.90 H (4.00-12.00) mmol/L BUN/Creatinine Ratio 20.78 H (12.00-20.00) Ratio Glucose 118 H (70-110) mg/dL Calcium 8.4 L (8.7-10.3) mg/dL Microbiology - Last 24 Hours (Table) 02/21/24 10:28 Blood Culture - Preliminary Blood 02/20/24 08:00 Urine Culture - Preliminary Urine,Voided Gram Neg Bacilli 02/20/24 06:28 Blood Culture Gram Stain - Final Blood Blood Culture - Final Escherichia coli Molecular ID
[2024-02-24] MEDS: ERTAPENEM 1 GM in SODIUM CHLORIDE 0.9% 50 ML IVPB SCH (10:01)
--- NOTE | 2024-02-24 10:03 | P.DS ---
Providers Date of admission: 02/20/24 09:29 Expected date of discharge: 02/24/24 Attending physician: Clementine Mc Consults: 02/20/24 09:54 Consult Physician Routine Consulting Provider: Bobo Rivero Consult Reason/Comments: sepsis,uti Do you want consulting provider notified?: Yes Primary care physician: Brianne Gomez, DO Hospital Course: Final diagnosis Sepsis, present on admission secondary to acute urinary tract infection. Blood cultures also positive with ESBL. Repeat blood cultures are negative UTI, present on admission secondary to chronic indwelling Chaves catheter Lactic acidosis secondary to assessment #1, improved MS, not in exacerbation Hypertension Stage III pressure ulcer to the buttock, present on admission Stage IV pressure ulcer to the left ischium, present on admission Morbid obesity with a BMI of 42.6 GI prophylaxis DVT prophylaxis Full code Discharge disposition Patient is being discharged in a stable condition with guarded prognosis to [facility] where she resides. Patient will follow-up with Dr. Gomez in the outpatient setting upon discharge. Patient is to continue with IV midline and antibiotics in the form of Invanz 1 g daily for 10 days on discharge. Total time taken is greater than 35 minutes. Hospital course This is a 53-year-old female who was recently admitted with features of sepsis present on admission secondary to acute urinary tract infection. Blood cultures were also positive for bacteremia with ESBL and finalized culture showing E. coli with Proteus Mirabella's with multidrug-resistant and ESBL. Patient to receive a midline maintained on cefepime and will transition to IV antibiotics 1 g for 10 days. Patient did have indwelling Chaves catheter that is chronic and was exchanged while here at the hospital recommend continuing with meticulous Chaves care. Patient has been cleared by consultation for discharge home to [facility] where she resides. Please refer to other consultation note for further HPI. Currently no reports of chest pain, shortness of breath, or palpitations. Patient is afebrile. No reports of nausea or vomiting and patient is tolerating diet. Patient will be going to [facility] [place] today. Guarded prognosis. High risk for readmissions given chronic indwelling Chaves catheter with recurrent UTIs. Physical exam: Gen: This is a 53-year-old female who is awake, alert and oriented x 3, well- developed, elderly appearing, morbidly obese HEENT: Head is atraumatic, normocephalic. Pupils equal, round. Sclerae is anicteric. NECK: Supple. No JVD. No lymphadenopathy. No thyromegaly. LUNGS: Clear to auscultation. No wheezes or rhonchi. No intercostal retractions. HEART: Regular rate and rhythm. No murmur. ABDOMEN: Soft. Obese. Bowel sounds are present. No masses. No tenderness. EXTREMITIES: No pedal edema. No calf tenderness. NEUROLOGICAL: Patient is awake, alert and oriented x3. Cranial nerves 2 through 12 are grossly intact. Diffusely weak Please refer to medication reconciliation sheet for a list of medications. The impression and plan of care has been dictated by Kassie Huff, Nurse Practitioner as directed. Dr. Mehrdad MD I have performed a history and examination and MDM of this patient, discussed the same with the dictator, and agree with the dictator's assessment and plan a s written ,documented as a scribe. Based on total visit time, I have performed more than 50% of the visit. Patient Condition at Discharge: Fair Plan - Discharge Summary Discharge Rx Participant: No New Discharge Prescriptions: New Ertapenem [INVanz] 1 gm IVPB DAILY 10 Days #10 each Nystatin 100,000 Unit/gm Powd [Mycostatin Powder] 1 applic TOPICAL BID each Acetaminophen Tab [Tylenol] 650 mg PO Q4HR PRN tab PRN Reason: Mild Pain Or Fever > 100.5 Continue Potassium Chloride ER [K-Dur 20] 20 meq PO BID Aspirin 81 mg PO DAILY Sennosides [Senna] 8.6 mg PO BID Levothyroxine Sodium [Synthroid] 75 mcg PO DAILY Atorvastatin [Lipitor] 10 mg PO HS Ascorbic Acid [Vitamin C] 500 mg PO HS Naloxone HCl 0.4 mg SQ ONCE PRN PRN Reason: OVERDOSE Folic Acid 0.4 mg PO BID Menthol [Icy Hot] 1 patch TRANSDERM DAILY Artificial Tears-Hypromellose [Artificial Tear Drops] 1 drop BOTH EYES DAILY Gabapentin [Neurontin] 300 mg PO BID@0700,1900 3 Days #6 cap NS Multivit-Min/FA/Lycopen/Lutein [Centrum Silver Tablet] 1 tab PO HS Naloxone 0.4mg/Ml Injection Solution 0.4 mg IV ONCE PRN PRN Reason: overdose Diroximel Fumarate [Vumerity] 462 mg PO BID@0700,1900 Furosemide [Lasix] 20 mg PO DAILY Baclofen 10 mg PO TID@0700,1300,1900 Pro-Stat Sugar Free (Amino Acids-Protein Hydrolysate) 30 ml PO DAILY Esomeprazole Magnesium [NexIUM] 20 mg PO DAILY Changed HYDROcodone/APAP 7.5-325MG [Ames 7.5-325] 1 tab PO QID@07,,, #4 tab Discharge Medication List Potassium Chloride ER [K-Dur 20] 20 meq PO BID 01/12/19 [History] Aspirin 81 mg PO DAILY 09/15/19 [History] Sennosides [Senna] 8.6 mg PO BID 01/31/20 [History] Atorvastatin [Lipitor] 10 mg PO HS 09/22/21 [History] Diroximel Fumarate [Vumerity] 462 mg PO BID@0700,1900 09/22/21 [History] Levothyroxine Sodium [Synthroid] 75 mcg PO DAILY 09/22/21 [History] Ascorbic Acid [Vitamin C] 500 mg PO HS 05/14/22 [History] Furosemide [Lasix] 20 mg PO DAILY 05/14/22 [History] Baclofen 10 mg PO TID@0700,1300,1900 12/22/22 [History] Folic Acid 0.4 mg PO BID 06/19/23 [History] Naloxone HCl 0.4 mg SQ ONCE PRN 06/19/23 [History] Menthol [Icy Hot] 1 patch TRANSDERM DAILY 08/16/23 [History] Artificial Tears-Hypromellose [Artificial Tear Drops] 1 drop BOTH EYES DAILY 09/24/23 [History] Esomeprazole Magnesium [NexIUM] 20 mg PO DAILY 09/24/23 [History] Pro-Stat Sugar Free (Amino Acids-Protein Hydrolysate) 30 ml PO DAILY 09/24/23 [History] Gabapentin [Neurontin] 300 mg PO BID@0700,1900 3 Days #6 cap NS 11/17/23 [Rx] Multivit-Min/FA/Lycopen/Lutein [Centrum Silver Tablet] 1 tab PO HS 02/20/24 [History] Naloxone 0.4mg/Ml Injection Solution 0.4 mg IV ONCE PRN 02/20/24 [History] Acetaminophen Tab [Tylenol] 650 mg PO Q4HR PRN tab 02/24/24 [Rx] Ertapenem [INVanz] 1 gm IVPB DAILY 10 Days #10 each 02/24/24 [Rx] HYDROcodone/APAP 7.5-325MG [Ames 7.5-325] 1 tab PO QID@07,13,19,23 #4 tab 02/24/24 [Rx] Nystatin 100,000 Unit/gm Powd [Mycostatin Powder] 1 applic TOPICAL BID each 02/24/24 [Rx] Follow up Appointment(s)/Referral(s): Brianne Gomez DO [Primary Care Provider] - 1-2 days Activity/Diet/Wound Care/Special Instructions: Patient is returning to [facility] [place] Activity as tolerated Patient has received midline and will continue on IV antibiotics in the form of Invanz 1 g daily for 10 days per ID recommendations Chaves catheter was exchanged on this admission and continue with Chaves care Continue heart healthy diet Discharge Disposition: TRANSFER TO SNF/ECF
[2024-02-24 13:11] VITALS: BP 143/88; PULSE 61; TEMP 97.4
--- NOTE | 2024-02-24 15:44 | P.PN ---
Subjective Progress Note Date: 02/24/24 Principal diagnosis: Reason for follow-up is sepsis/UTI Patient is a 53-year-old female with a past medical history significant for MS in this patient who is bedbound did have a history of urinary retention requiring chronic indwelling Chaves catheter and history of recurrent UTI also has done with multiple pressure ulcer to the sacral and bilateral upper thigh area patient was into the hospital concerning for fever sepsis did have a positive UA concerning for UTI and possible lower extremity cellulitis. On today's evaluation that is 02/24/2024,the patient remains to be afebrile, patient is on room air not requiring supplemental oxygen and denies any shortness of breath no chest pain or cough.Patient denies having any nausea or vomiting, no abdominal pain and no diarrhea has been reported mention feeling better. The patient white count is 4.0 creatinine 0.9 repeat blood culture negative Objective - Vital Signs Vital signs: Vital Signs Temp 97.6 F 02/24/24 07:14 Pulse 73 02/24/24 07:14 Resp 18 02/24/24 07:14 BP 129/83 02/24/24 07:14 Pulse Ox 96 02/24/24 07:14 FiO2 Intake & Output 02/23/24 02/24/24 02/24/24 18:59 06:59 18:59 Intake Total 2040 2180 Output Total 4275 2100 Balance -2235 80 Weight 116 kg Intake: Intake, IV Titration 1100 Amount Meropenem 500 mg In 200 Sodium Chloride 0.9% 100 ml @ 33.333 mls/hr IVPB Q6HR YANIRA Rx#:[id number] Sodium Chloride 0.9% 1, 900 000 ml @ 75 mls/hr IV . [id number] YANIRA Rx#:[id number] Oral 2040 1080 Output: Urine 4275 2100 Uretheral (Chaves) 2500 Other: Voiding Method Indwelling Catheter Indwelling Catheter - Exam GENERAL DESCRIPTION: Middle-age female lying in bed in no distress RESPIRATORY SYSTEM: Unlabored breathing , decreased breath sounds at bases HEART: S1 S2 regular rate and rhythm , ABDOMEN: Soft , no tenderness EXTREMITIES: Diffuse swelling bilateral extremities some redness - Labs CBC & Chem 7: 02/23/24 05:28 02/23/24 05:28 Labs: Abnormal Lab Results - Last 24 Hours (Table) 02/23/24 Range/Units 05:28 WBC 4.00 L (4.50-10.00) X 10*3/uL RBC 3.79 L (4.10-5.20) X 10*6/uL Hgb 9.8 L (12.0-15.0) g/dL Hct 32.8 L (37.2-46.3) % MCH 25.9 L (27.0-32.0) pg MCHC 29.9 L (32.0-37.0) g/dL RDW 17.2 H (11.5-14.5) % Lymphocytes # 0.60 L (0.90-5.00) X 10*3/uL Elliptocytes 2+ A Microbiology - Last 24 Hours (Table) 02/21/24 10:28 Blood Culture - Preliminary Blood 02/20/24 08:00 Urine Culture - Preliminary Urine,Voided Escherichia coli Proteus mirabilis Assessment and Plan (1) Sepsis Current Visit: Yes Status: Acute Code(s): A41.9 - SEPSIS, UNSPECIFIED ORGANISM SNOMED Code(s): 31267467 (2) Urinary tract infection Current Visit: Yes Status: Acute Code(s): N39.0 - URINARY TRACT INFECTION, SITE NOT SPECIFIED SNOMED Code(s): 79596358 (3) Infection due to ESBL-producing Escherichia coli Current Visit: Yes Status: Acute Code(s): A49.8 - OTHER BACTERIAL INFECTIONS OF UNSPECIFIED SITE; Z16.12 - EXTENDED SPECTRUM BETA LACTAMASE (ESBL) RESISTANCE SNOMED Code(s): 255962591 (4) Bacteremia Current Visit: No Status: Acute Code(s): R78.81 - BACTEREMIA SNOMED Code(s): 1151505 Plan: 1patient presented to hospital with sepsis in this patient who did have a fever tachycardia white count with a left shift source is likely catheter assisted urine tract infection in this patient Chaves catheter was just changed before her symptoms started patient also have significant swelling to bilateral extremity and some erythema underlying component of cellulitis lateral excluded chest x- ray did show some infiltrate however clinically not behaving as pneumonia. 2 Dopplers of bilateral lower extremity has been negative, Tarik wrap to keep the swelling of the lower extremity down 3blood culture positive for ESBL E. coli source likely urinary, urine culture grew the same pathogen 4patient with repeat blood culture negative so far she will get a midline plan is for a 10-day course of IV Invanz 1 g daily on discharge discussed with the RETURNS PROCESSOR for admitting team Dictation was produced using [employer] dictation software. please excuse any grammatical, word or spelling errors.
== END 2024-02-24 17:34 | DRG 466 ==
LOC: EC 06:11 → 3SCARD 09:29 → 5NMEDONC 02-22 12:16
PROVIDERS: ADMIT Hospitalist; ATTEND Hospitalist
PROC: 05HC33Z Insertion of Infusion Device into Left Basilic Vein, Percutaneous Approach (ICD-10-PCS; principal; 2024-02-24 13:55)
DX: T83.511A Infection and inflammatory reaction due to indwelling urethral catheter, initial encounter (principal); Y84.6 Urinary catheterization as the cause of abnormal reaction of the patient, or of later complication, without mention of misadventure at the time of the procedure; Z16.12 Extended spectrum beta lactamase (ESBL) resistance; A41.51 Sepsis due to Escherichia coli [E. coli]; E03.9 Hypothyroidism, unspecified; E66.01 Morbid (severe) obesity due to excess calories; E78.5 Hyperlipidemia, unspecified; M54.9 Dorsalgia, unspecified; E87.20 Acidosis, unspecified; G35 Multiple sclerosis; I10 Essential (primary) hypertension; L89.303 Pressure ulcer of unspecified buttock, stage 3; G89.29 Other chronic pain; L89.894 Pressure ulcer of other site, stage 4; Z68.41 Body mass index [BMI] 40.0-44.9, adult; N31.9 Neuromuscular dysfunction of bladder, unspecified; Z20.822 Contact with and (suspected) exposure to COVID-19; N39.0 Urinary tract infection, site not specified; Z79.82 Long term (current) use of aspirin; Z79.890 Hormone replacement therapy; Z79.899 Other long term (current) drug therapy; Z87.440 Personal history of urinary (tract) infections; Z99.3 Dependence on wheelchair; Z87.01 Personal history of pneumonia (recurrent); Z74.01 Bed confinement status; Z28.21 Immunization not carried out because of patient refusal
CPT/HCPCS: 36410; 36415; 71045; 76770; 76937; 80048; 80053; 81001; 83605; 83690; 83735; 84100; 85025; 87040; 87077; 87086; 87186; 87636; 93005; 93970; 96361; 96365; 96366; 96367; 99291

== ENCOUNTER 2024-03-21 20:16 | Inpatient (IN) | payer OTHER ==
--- NOTE | 2024-03-21 20:25 | ED ---
Recheck HPI - General Stated Complaint: abnormal labs Time Seen by Provider: 03/21/24 20:25 Source: RN notes reviewed, old records reviewed Mode of arrival: EMS Limitations: no limitations - History of Present Illness Initial Comments: This is a 53 female she presents today for evaluation of fever fever with history of UTI history of sacral decubitus ulcers. Patient is a poor historian MD Complaint: needs IV antibiotics -: hour(s) Returns Today for: needs IV antibiotics, persistent/worsening pain related to initial visit Symptoms Since Prior Visit: fever Context: planned re-check, called for abnormal lab result Associated Symptoms: fever Treatments Prior to Arrival: other - Related Data Home Medications Medication Instructions Recorded Confirmed Potassium Chloride ER [K-Dur 20] 20 meq PO BID 01/12/19 03/22/24 Aspirin 81 mg PO HS 09/15/19 03/22/24 Sennosides [Senna] 8.6 mg PO BID 01/31/20 03/22/24 Atorvastatin [Lipitor] 10 mg PO HS 09/22/21 03/22/24 Diroximel Fumarate [Vumerity] 462 mg PO BID@0700,1900 09/22/21 03/22/24 Levothyroxine Sodium [Synthroid] 75 mcg PO DAILY@0500 09/22/21 03/22/24 Ascorbic Acid [Vitamin C] 500 mg PO HS 05/14/22 03/22/24 Furosemide [Lasix] 20 mg PO DAILY 05/14/22 03/22/24 Baclofen 10 mg PO TID@0700,1300,1900 12/22/22 03/22/24 Folic Acid 0.4 mg PO BID 06/19/23 03/22/24 Naloxone HCl 0.4 mg SQ ONCE PRN 06/19/23 03/22/24 Artificial Tears-Hypromellose 1 drop BOTH EYES DAILY 09/24/23 03/22/24 [Artificial Tear Drops] Esomeprazole Magnesium [NexIUM] 20 mg PO DAILY 09/24/23 03/22/24 Multivit-Min/FA/Lycopen/Lutein 1 tab PO HS 02/20/24 03/22/24 [Centrum Silver Tablet] Naloxone 0.4mg/Ml Injection 0.4 mg IV ONCE PRN 02/20/24 03/22/24 Solution Acetaminophen [Tylenol Arthritis] 650 mg PO Q12H PRN 03/22/24 03/22/24 Amino Acids/Protein Hydrolys 30 ml PO DAILY 03/22/24 03/22/24 [Pro-Stat Awc Liquid] Icy Hot External Patch 5% 1 patch TOPICAL DAILY 03/22/24 03/22/24 Previous Rx's Medication Instructions Recorded Gabapentin [Neurontin] 300 mg PO BID@0700,1900 3 Days #6 11/17/23 cap NS HYDROcodone/APAP 7.5-325MG [[place] 1 tab PO QID@07,13,19,23 #12 tab 03/24/24 7.5-325] cefuroxime axetiL [Ceftin] 500 mg PO BID #14 tab 03/24/24 Allergies Allergy/AdvReac Type Severity Reaction Status Date / Time adhesive tape Allergy Rash/Hives Verified 03/22/24 11:26 cinnamon Allergy Rash/Hives Verified 03/22/24 11:26 Review of Systems ROS Statement: Those systems with pertinent positive or pertinent negative responses have been documented in the HPI. ROS Other: All systems not noted in ROS Statement are negative. Past Medical History Past Medical History: Hyperlipidemia, Musculoskeletal Disorder, Neurologic Disorder, Pneumonia, Renal Disease, Skin Disorder Additional Past Medical History / Comment(s): Multiple sclerosis stage IV- wheelchair bound, L side weaker than right, past renal failure with hemodialysis-last time was July 2016, neurogenic bladder with indwelling austin, past sepsis, iron deficiency anemia, wounds present on bilateral gluteal folds and sacral area History of Any Multi-Drug Resistant Organisms: ESBL, MRSA, VRE Date of last positivie culture/infection: 02/20/24 ESBL; 06/19/23 MRSA; 10/19/21 VR E MDRO Source:: ESBL - blood, urine; MRSA - blood; VRE - urine Past Surgical History: No Surgical Hx Reported Additional Past Surgical History / Comment(s): LP, debridement decubitus sacral ulcer, hemodialysis cath since removed, picc lines Past Anesthesia/Blood Transfusion Reactions: No Reported Reaction Additional Past Anesthesia/Blood Transfusion Reaction / Comment(s): NEVER HAD ANY GENERAL ANES Past Psychological History: No Psychological Hx Reported Smoking Status: Never smoker Past Alcohol Use History: None Reported Past Drug Use History: None Reported - Past Family History Father History Unknown: Yes Additional Family Medical History / Comment(s): PTS DAD LIVED IN [facility] [place]'S NOT SURE WHAT HE FROM. HE HAD HYPOTENSION. Mother Family Medical History: Coronary Artery Disease (CAD), Diabetes Mellitus, Hyperlipidemia, Hypertension Additional Family Medical History / Comment(s): CARDIAC STENTS General Exam General appearance: alert, in no apparent distress Head exam: Present: atraumatic, normocephalic, normal inspection Eye exam: Present: normal appearance, PERRL, EOMI. Absent: scleral icterus, conjunctival injection, periorbital swelling ENT exam: Present: normal exam, mucous membranes moist Neck exam: Present: normal inspection. Absent: tenderness, meningismus, lymphadenopathy Respiratory exam: Present: normal lung sounds bilaterally. Absent: respiratory distress, wheezes, rales, rhonchi, stridor Cardiovascular Exam: Present: regular rate, normal rhythm, normal heart sounds. Absent: systolic murmur, diastolic murmur, rubs, gallop, clicks GI/Abdominal exam: Present: soft, normal bowel sounds. Absent: distended, tenderness, guarding, rebound, rigid Extremities exam: Present: normal inspection, full ROM, normal capillary refill. Absent: tenderness, pedal edema, joint swelling, calf tenderness Back exam: Present: normal inspection Neurological exam: Present: alert, oriented X3, CN II-XII intact Psychiatric exam: Present: normal affect, normal mood Skin exam: Present: warm, dry, intact, normal color. Absent: rash Course Vital Signs 03/21/24 03/21/24 03/21/24 20:25 21:28 22:46 Temperature 100.1 F H 100.3 F H 101 F H Pulse Rate 112 H 113 H 116 H Respiratory 18 18 18 Rate Blood Pressure 136/78 110/73 O2 Sat by Pulse 95 97 95 Oximetry 03/22/24 03/22/24 03/22/24 00:17 02:33 04:34 Temperature 99.6 F 98.8 F 98.9 F Pulse Rate 115 H 107 H 112 H Respiratory 18 18 18 Rate Blood Pressure 107/72 O2 Sat by Pulse 95 95 94 L Oximetry - Reevaluation(s) Reevaluation #1: 03/21/24 21:04 Medical records reviewed Reevaluation #2: 03/21/24 21:04 Patient symptoms unchanged Reevaluation #3: 03/21/24 21:05 Patient informed of results and questions answered Reevaluation #4: Was pt. sent in by a medical professional or institution (SURINDER Abreu, [employer]VISOR, urgent care, hospital, or halfway...) When possible be specific @ -no Did you speak to anyone other than the patient for history (EMS, parent, family, police, friend...)? What history was obtained from this source @ -no Did you review nursing and triage notes (agree or disagree)? Why? @ -agree Are old charts reviewed (outside hosp., previous admission, EMS record, old EKG, old radiological studies, urgent care reports/EKG's, halfway records)? Report findings @ -yes Differential Diagnosis (chest pain, altered mental status, abdominal pain women, abdominal pain men, vaginal bleeding, weakness, fever, dyspnea, syncope, headache, dizziness, GI bleed, back pain, seizure, CVA, palpatations, mental health, musculoskeletal)? @ -prior EKG interpreted by me (3pts min.). @ -no X-rays interpreted by me (1pt min.). @ -yes negative for acute disease CT interpreted by me (1pt min.). @ -no U/S interpreted by me (1pt. min.). @ -no What testing was considered but not performed or refused? (CT, X-rays, U/S, labs)? Why? @ -none What meds were considered but not given or refused? Why? @ -none Did you discuss the management of the patient with other professionals (ericka lugo i.e. SURINDER Abreu, [employer] WORK SUPERVISOR, lab, RT, psych nurse, social sciences department chair, securities compliance examiner, teacher, information management officer, case managers)? Give summary @ -no Was smoking cessation discussed for >3mins.? @ -no Was critical care preformed (if so, how long)? @ -no Were there social determinants of health that impacted care today? How? (Homelessness, low income, unemployed, alcoholism, drug addiction, transportation, low edu. Level, literacy, decrease access to med. care, fdc, rehab)? @ -none Was there de-escalation of care discussed even if they declined (Discuss DNR or withdrawal of care, Hospice)? DNR status @ -no What co-morbidities impacted this encounter? (DM, HTN, Smoking, COPD, CAD, Cancer, CVA, ARF, Chemo, Hep., AIDS, mental health diagnosis, sleep apnea, morbid obesity)? @ -none Was patient admitted / discharged? Hospital course, mention meds given and route, prescriptions, significant lab abnormalities, going to OR and other pertinent info. @ - 53 female to the ER for evaluation of fever altered mental status with known indwelling Austin history of UTIs patient admitted for IV antibiotics history of sacral decubitus ulcer as well Admitted Undiagnosed new problem with uncertain prognosis? @ -no Drug Therapy requiring intensive monitoring for toxicity (Heparin, Nitro, Insulin, Cardizem)? @ -no Were any procedures done? @ -no Diagnosis/symptom? @ -Fever UTI Acute, or Chronic, or Acute on Chronic? @ -Acute Uncomplicated (without systemic symptoms) or Complicated (systemic symptoms)? @ -Complicated Side effects of treatment? @ -no Exacerbation, Progression, or Severe Exacerbation? @ -exacerbation Poses a threat to life or bodily function? How? (Chest pain, USA, IA, pneumonia, PE, COPD, DKA, ARF, appy, cholecystitis, CVA, Diverticulitis, Homicidal, Suicidal, threat to staff... and all critical care pts) @ -yes sepsis Reevaluation #5: Differential Fever: Pneumonia, viral URI, endocarditis, myocarditis, pericarditis, otitis, sinusitis, peritonsillar Abscess, retropharyngeal Abscess, epiglottitis, peritonitis, appendicitis, Juju cystitis, diverticulitis, hepatitis, colitis, UTI, PID, TOA, pyelonephritis, prostatitis, epididymitis, meningitis, enc ephalitis, pulmonary embolism, CVA, thyroid storm, pancreatitis, adrenal crisis, cavernous sinus thrombosis, this is not meant to be an all-inclusive list. - Consultations Consultation #1: Spoke with [facility] to admit this patient Medical Decision Making - Medical Decision Making 53 female to the ER for evaluation of fever altered mental status with known indwelling [place] history of UTIs patient admitted for IV antibiotics history of sacral decubitus ulcer as well - Lab Data Result diagrams: 03/23/24 04:58 03/23/24 04:58 Lab Results 03/21/24 03/21/24 03/21/24 Range/Units 20:46 20:46 20:46 WBC 7.3 (3.8-10.6) k/uL RBC 4.20 (3.80-5.40) m/uL Hgb 11.3 L (11.4-16.0) gm/dL Hct 34.2 (34.0-46.0) % MCV 81.4 (80.0-100.0) fL MCH 26.8 (25.0-35.0) pg MCHC 33.0 (31.0-37.0) g/dL RDW 16.7 H (11.5-15.5) % Plt Count 193 (150-450) k/uL MPV 7.1 Neutrophils % 83 % Lymphocytes % 5 % Monocytes % 8 % Eosinophils % 1 % Basophils % 0 % Neutrophils # 6.1 (1.3-7.7) k/uL Lymphocytes # 0.4 L (1.0-4.8) k/uL Monocytes # 0.6 (0-1.0) k/uL Eosinophils # 0.1 (0-0.7) k/uL Basophils # 0.0 (0-0.2) k/uL Anisocytosis Slight Sodium 143 (137-145) mmol/L Potassium 4.3 (3.5-5.1) mmol/L Chloride 107 (98-107) mmol/L Carbon Dioxide 24 (22-30) mmol/L Anion Gap 12 mmol/L BUN 22 H (7-17) mg/dL Creatinine 0.75 (0.52-1.04) mg/dL Est GFR (CKD-EPI)AfAm >90 (>60 ml/min/1.73 sqM) Est GFR (CKD-EPI)NonAf >90 (>60 ml/min/1.73 sqM) Glucose 142 H (74-99) mg/dL Plasma Lactic Acid Armando 1.6 (0.7-2.0) mmol/L Calcium 8.6 (8.4-10.2) mg/dL Phosphorus 3.4 (2.5-4.5) mg/dL Magnesium 1.6 (1.6-2.3) mg/dL Total Bilirubin 0.9 (0.2-1.3) mg/dL AST 19 (14-36) U/L ALT 26 (4-34) U/L Alkaline Phosphatase 85 (38-126) U/L Total Protein 6.4 (6.3-8.2) g/dL Albumin 4.0 (3.5-5.0) g/dL Lipase 46 (23-300) U/L Urine Color Urine Appearance (Clear) Urine pH (5.0-8.0) Ur Specific [place] (1.001-1.035) Urine Protein (Negative) Urine Glucose (UA) (Negative) Urine Ketones (Negative) Urine Blood (Negative) Urine Nitrite (Negative) Urine Bilirubin (Negative) Urine Urobilinogen (<2.0) mg/dL Ur Leukocyte Esterase (Negative) Urine RBC (0-5) /hpf Urine WBC (0-5) /hpf Urine WBC Clumps (None) /hpf Urine Bacteria (None) /hpf Urine Mucus (None) /hpf Influenza Type A (PCR) (Not Detectd) Influenza Type B (PCR) (Not Detectd) RSV (PCR) (Not Detectd) SARS-CoV-2 (PCR) (Not Detectd) 03/21/24 03/21/24 Range/Units 20:49 20:54 WBC (3.8-10.6) k/uL RBC (3.80-5.40) m/uL Hgb (11.4-16.0) gm/dL Hct (34.0-46.0) % MCV (80.0-100.0) fL MCH (25.0-35.0) pg MCHC (31.0-37.0) g/dL RDW (11.5-15.5) % Plt Count (150-450) k/uL MPV Neutrophils % % Lymphocytes % % Monocytes % % Eosinophils % % Basophils % % Neutrophils # (1.3-7.7) k/uL Lymphocytes # (1.0-4.8) k/uL Monocytes # (0-1.0) k/uL Eosinophils # (0-0.7) k/uL Basophils # (0-0.2) k/uL Anisocytosis Sodium (137-145) mmol/L Potassium (3.5-5.1) mmol/L Chloride (98-107) mmol/L Carbon Dioxide (22-30) mmol/L Anion Gap mmol/L BUN (7-17) mg/dL Creatinine (0.52-1.04) mg/dL Est GFR (CKD-EPI)AfAm (>60 ml/min/1.73 sqM) Est GFR (CKD-EPI)NonAf (>60 ml/min/1.73 sqM) Glucose (74-99) mg/dL Plasma Lactic Acid Arm[place] (0.7-2.0) mmol/L Calcium (8.4-10.2) mg/dL Phosphorus (2.5-4.5) mg/dL Magnesium (1.6-2.3) mg/dL Total Bilirubin (0.2-1.3) mg/dL AST (14-36) U/L ALT (4-34) U/L Alkaline Phosphatase (38-126) U/L Total Protein (6.3-8.2) g/dL Albumin (3.5-5.0) g/dL Lipase (23-300) U/L Urine Color Light Yellow Urine Appearance Cloudy H (Clear) Urine pH 7.5 (5.0-8.0) Ur Specific [place] 1.013 (1.001-1.035) Urine Protein 1+ H (Negative) Urine Glucose (UA) Negative (Negative) Urine Ketones Negative (Negative) Urine Blood Small H (Negative) Urine Nitrite Positive H (Negative) Urine Bilirubin Negative (Negative) Urine Urobilinogen <2.0 (<2.0) mg/dL Ur Leukocyte Esterase Large H (Negative) Urine RBC 36 H (0-5) /hpf Urine WBC 135 H (0-5) /hpf Urine WBC Clumps Many H (None) /hpf Urine Bacteria Few H (None) /hpf Urine Mucus Rare H (None) /hpf Influenza Type A (PCR) Not Detected (Not Detectd) Influenza Type B (PCR) Not Detected (Not Detectd) RSV (PCR) Not Detected (Not Detectd) SARS-CoV-2 (PCR) Not Detected (Not Detectd) - Radiology Data Radiology results: report reviewed (Chest x-ray is negative for acute disease), image reviewed Disposition Clinical Impression: Multiple sclerosis, Weakness, Delirium due to general medical condition, Urinary tract infection, Fever Disposition: ADMITTED IP TO THIS [facility] Condition: Fair Is patient prescribed a controlled substance at d/c from ED?: No Time of Disposition: 21:00
[2024-03-21] MEDS: SODIUM CHLORIDE 0.9% 500 ML 500 ML IV STA (20:54)
[2024-03-21] MEDS: SODIUM CHLORIDE 0.9% 1,000 ML IV STA (20:54)
[2024-03-21] MEDS: ACETAMINOPHEN TAB 500 MG TAB PO STA (20:54)
[2024-03-21] MEDS: IBUPROFEN 600 MG TAB PO STA (20:55)
[2024-03-21] MEDS ORDERED: NALOXONE 0.4 MG/ML 1 ML VIAL IV PRN (21:00)
[2024-03-21] MEDS ORDERED: ONDANSETRON 4 MG/2 ML VIAL IVP PRN (21:00)
[2024-03-21] MEDS ORDERED: ACETAMINOPHEN TAB 325 MG TAB PO PRN (21:00)
--- NOTE | 2024-03-21 21:03 | XR ---
EXAMINATION TYPE: XR chest 1V portable DATE OF EXAM: 03/21/2024 8:55 PM COMPARISON: 02/20/2024 CLINICAL INDICATION: Female, 53 years old with history of sob, , FINDINGS: Low lung volumes. Heart is mildly enlarged. Limited by kyphotic positioning. Perihilar and diffuse in terstitial and patchy opacities slightly progressed from prior. IMPRESSION: Limited by hypoventilatory changes and kyphotic positioning. Mild cardiomegaly with progressive inter stitial and patchy bilateral opacities. Correlate for worsening pulmonary edema. [facility], , 03/21/2024 9:01 PM
[2024-03-21] MEDS: SODIUM CHLORIDE 0.9% 1,000 ML IV SCH (21:05)
[2024-03-21 21:14] LABS: ALT 26 U/L (4-34); AST 19 U/L (14-36); African American GFR (CKD) >90 (>60 ml/min/1.73 sqM); Alkaline Phosphatase 85 U/L (38-126); Anion Gap 12 mmol/L; Blood Urea Nitrogen 22 mg/dL (7-17); Calcium 8.6 mg/dL (8.4-10.2); Carbon Dioxide 24 mmol/L (22-30); Chloride 107 mmol/L (98-107); Glucose 142 mg/dL (74-99); Lipase 46 U/L (23-300); Magnesium 1.6 mg/dL (1.6-2.3); Non-African American GFR(CKD) >90 (>60 ml/min/1.73 sqM); Phosphorus 3.4 mg/dL (2.5-4.5); Potassium 4.3 mmol/L (3.5-5.1); Sodium 143 mmol/L (137-145); Total Bilirubin 0.9 mg/dL (0.2-1.3); Total Protein 6.4 g/dL (6.3-8.2)
[2024-03-21 21:15] LABS: Appearance,Urine Cloudy (Clear); Bacteria,Urine Few /hpf; Bilirubin,Urine Negative (Negative); Blood,Urine Small (Negative); Color,Urine Light Yellow; Glucose,Urine (UA) Negative (Negative); Ketones,Urine Negative (Negative); Leukocyte Esterase,Urine Large (Negative); Mucus,Urine Rare /hpf; Nitrite,Urine Positive (Negative); PH, Urine 7.5 (5.0-8.0); Protein,Urine 1+ (Negative); RBC,Urine 36 /hpf (0-5); Specific Gravity,Urine 1.013 (1.001-1.035); Urobilinogen,Urine <2.0 mg/dL (<2.0); WBC,Urine 135 /hpf (0-5)
[2024-03-21 21:22] LABS: Anisocytosis Slight; Basophils % (A) 0 %; Eosinophils # (A) 0.1 k/uL (0-0.7); Eosinophils % (A) 1 %; HCT 34.2 % (34.0-46.0); HGB 11.3 gm/dL (11.4-16.0); Lymphocytes # (A) 0.4 k/uL (1.0-4.8); Lymphocytes % (A) 5 %; MCH 26.8 pg (25.0-35.0); MCV 81.4 fL (80.0-100.0); Mean Platelet Volume 7.1; Monocytes # (A) 0.6 k/uL (0-1.0); Monocytes % (A) 8 %; Neutrophils # (A) 6.1 k/uL (1.3-7.7); Neutrophils % (A) 83 %; Platelet Count 193 k/uL (150-450); RDW 16.7 % (11.5-15.5); WBC 7.3 k/uL (3.8-10.6)
[2024-03-22 03:52] LABS: Anisocytosis Slight; Basophils % (A) 0 %; Eosinophils # (A) 0.1 k/uL (0-0.7); Eosinophils % (A) 1 %; HCT 32.7 % (34.0-46.0); HGB 10.6 gm/dL (11.4-16.0); Hypochromasia Slight; Lymphocytes # (A) 0.8 k/uL (1.0-4.8); Lymphocytes % (A) 10 %; MCHC 32.5 g/dL (31.0-37.0); MCV 83.1 fL (80.0-100.0); Mean Platelet Volume 7.2; Monocytes # (A) 0.4 k/uL (0-1.0); Monocytes % (A) 5 %; Neutrophils # (A) 6.4 k/uL (1.3-7.7); Neutrophils % (A) 80 %; Platelet Count 258 k/uL (150-450); RBC 3.94 m/uL (3.80-5.40); RDW 16.8 % (11.5-15.5)
[2024-03-22 03:56] LABS: ALT 26 U/L (4-34); AST 19 U/L (14-36); African American GFR (CKD) >90 (>60 ml/min/1.73 sqM); Albumin 3.9 g/dL (3.5-5.0); Alkaline Phosphatase 97 U/L (38-126); Anion Gap 13 mmol/L; Blood Urea Nitrogen 21 mg/dL (7-17); Carbon Dioxide 23 mmol/L (22-30); Chloride 107 mmol/L (98-107); Glucose 140 mg/dL (74-99); Magnesium 1.7 mg/dL (1.6-2.3); Non-African American GFR(CKD) >90 (>60 ml/min/1.73 sqM); Phosphorus 3.9 mg/dL (2.5-4.5); Potassium 4.1 mmol/L (3.5-5.1); Sodium 143 mmol/L (137-145); Total Bilirubin 0.6 mg/dL (0.2-1.3); Total Protein 6.4 g/dL (6.3-8.2)
[2024-03-22] MEDS: PANTOPRAZOLE 40 MG/10 ML VIAL IV SCH (10:04)
[2024-03-22] MEDS ORDERED: NON FORMULARY DRUG (Acetaminophen [Tylenol Arthritis] 650 MG Tablet) PO PRN (12:25)
[2024-03-22] MEDS ORDERED: NALOXONE IV PRN (12:25)
[2024-03-22] MEDS ORDERED: NON FORMULARY DRUG (Naloxone Hcl [Naloxone Hcl] 0.4 MG/ML Cartridge) SQ PRN (12:25)
[2024-03-22] MEDS: ERTAPENEM 1 GM in SODIUM CHLORIDE 0.9% 50 ML IVPB SCH (12:32)
[2024-03-22] MEDS: BACLOFEN 10 MG TAB PO SCH (12:48)
[2024-03-22] MEDS: HYDROcodone/APAP 7.5-325MG 1 EACH TAB PO SCH (12:49)
--- NOTE | 2024-03-22 15:20 | P.HPIM ---
History of Present Illness H&P Date: 03/22/24 History of present illness: 53-year-old female with past medical history significant for multiple sclerosis, chronically wheelchair-bound, stage IV sacral ulcers, chronic Austin's catheter, neurogenic bladder, hyperlipidemia who presented to the ER for evaluation of fever. Patient is a poor historian. Patient reported that she is in the hospital for UTI and IV antibiotics. In the ED patient was febrile with a temperature of 101, was tachycardic heart rate 116, respiratory rate 18, blood pressure 110/73, saturating 95% on room air. WBC 7.3, hemoglobin 11.3, platelet 193. BMP and liver profile was unremarkable. Creatinine was 0.75 GFR more than 90. UA was positive with large leukocyte esterase, nitrite, 135 WBCs. COVID RSV and influenza was negative. Chest x-ray showed mild cardiomegaly with progressive interstitial and patchy bilateral opacities. Assessment and plan: Fever: UTI: Chronic indwelling Austin catheter History of MDRO: Stage IV sacral ulcer Multiple sclerosis Neurogenic bladder Wheelchair-bound Hypothyroidism: Plan: Presented with fever, UA positive, history of stage IV sacral ulcers Wound care, Urine culture Blood culture ID consulted Ertapenem Urology consult due to difficult Austin catheter placement. DVT prophylaxis Subcutaneous Lovenox Monitor vital signs and labs Labs and medication were reviewed. Continue same treatment. Resume home meds. Further recommendations as per clinical course of the patient PHYSICAL EXAMINATION: GENERAL: The patient is A&O x3, NAD HEENT: EOMI, Sclerae anicteric, Moist Mucous membranes Neck: Supple, Non tender, No JVD PULMONARY: Equal breath souds B/L, No wheezing, No crackles. CARDIOVASCULAR: S1, S2 present. No murmurs, rubs, or gallops. ABDOMEN: Soft, nontender, nondistended, normoactive bowel sounds. No guarding or rebound tenderness. MUSCULOSKELETAL: + edema, No cyanosis. No clubbing. Normal ROM. Intact peripheral pulses. NEUROLOGICAL: CN 2-12 grossly intact. No FND. Chronic lower extremity, left upper extremity weakness. REVIEW OF SYSTEMS: CONSTITUTIONAL: No fever, no malaise, no fatigue. HEENT: No recent visual problems or hearing problems. Denied any sore throat. CARDIOVASCULAR: No chest pain, orthopnea, PND, no palpitations, no syncope. PULMONARY: No shortness of breath, no cough, no hemoptysis. GASTROINTESTINAL: No diarrhea, no nausea, no vomiting, no abdominal pain. NEUROLOGICAL: No headaches, no weakness, no numbness. HEMATOLOGICAL: Denies any bleeding or petechiae. GENITOURINARY: Suprapubic pain. MUSCULOSKELETAL/RHEUMATOLOGICAL: Denies any joint pain, swelling, or any muscle pain. ENDOCRINE: Denies any polyuria or polydipsia. The rest of the 14-point review of systems is negative. Dictation was produced using Gungrooation software. please excuse any grammatical, word or spelling errors. Past Medical History Past Medical History: Hyperlipidemia, Musculoskeletal Disorder, Neurologic Disorder, Pneumonia, Renal Disease, Skin Disorder Additional Past Medical History / Comment(s): Multiple sclerosis stage IV- wheelchair bound, L side weaker than right, past renal failure with hemodialysis-last time was July 2016, neurogenic bladder with indwelling austin, past sepsis, iron deficiency anemia, wounds present on bilateral gluteal folds and sacral area History of Any Multi-Drug Resistant Organisms: ESBL, MRSA, VRE Date of last positivie culture/infection: 02/20/24 ESBL; 06/19/23 MRSA; 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 MDRO Source:: ESBL - blood, urine; MRSA - blood; VRE - urine Past Surgical History: No Surgical Hx Reported Additional Past Surgical History / Comment(s): LP, debridement decubitus sacral ulcer, hemodialysis cath since removed, picc lines Past Anesthesia/Blood Transfusion Reactions: No Reported Reaction Additional Past Anesthesia/Blood Transfusion Reaction / Comment(s): NEVER HAD ANY GENERAL ANES Past Psychological History: No Psychological Hx Reported Additional Psychological History / Comment(s): Pt resides at [facility]. She states she is mostly wheelchair bound-sit to stand device to chair. She has an IDC. Pt feeds herself. Smoking Status: Never smoker Past Alcohol Use History: None Reported Additional Past Alcohol Use History / Comment(s): Patient is a lifelong nonsmoker. She denies any alcohol abuse. Past Drug Use History: None Reported - Past Family History Father History Unknown: Yes Additional Family Medical History / Comment(s): PTS DAD LIVED IN [place]- SHE'S NOT SURE WHAT HE FROM. HE HAD HYPOTENSION. Mother Family Medical History: Coronary Artery Disease (CAD), Diabetes Mellitus, Hyperlipidemia, Hypertension Additional Family Medical History / Comment(s): CARDIAC STENTS Medications and Allergies Home Medications Medication Instructions Recorded Confirmed Type Potassium Chloride ER [K-Dur 20] 20 meq PO BID 01/12/19 03/22/24 History Aspirin 81 mg PO HS 09/15/19 03/22/24 History Sennosides [Senna] 8.6 mg PO BID 01/31/20 03/22/24 History Atorvastatin [Lipitor] 10 mg PO HS 09/22/21 03/22/24 History Diroximel Fumarate [Vumerity] 462 mg PO BID@0700,1900 09/22/21 03/22/24 History Levothyroxine Sodium [Synthroid] 75 mcg PO DAILY@0500 09/22/21 03/22/24 History Ascorbic Acid [Vitamin C] 500 mg PO HS 05/14/22 03/22/24 History Furosemide [Lasix] 20 mg PO DAILY 05/14/22 03/22/24 History Baclofen 10 mg PO TID@0700,1300,1900 12/22/22 03/22/24 History Folic Acid 0.4 mg PO BID 06/19/23 03/22/24 History Naloxone HCl 0.4 mg SQ ONCE PRN 06/19/23 03/22/24 History Artificial Tears-Hypromellose 1 drop BOTH EYES DAILY 09/24/23 03/22/24 History [Artificial Tear Drops] Esomeprazole Magnesium [NexIUM] 20 mg PO DAILY 09/24/23 03/22/24 History Gabapentin [Neurontin] 300 mg PO BID@0700,1900 3 Days #6 11/17/23 03/22/24 Rx cap NS Multivit-Min/FA/Lycopen/Lutein 1 tab PO HS 02/20/24 03/22/24 History [Centrum Silver Tablet] Naloxone 0.4mg/Ml Injection 0.4 mg IV ONCE PRN 02/20/24 03/22/24 History Solution HYDROcodone/APAP 7.5-325MG [[place] 1 tab PO QID@07,,, #4 tab 02/24/24 03/22/24 Rx 7.5-325] Acetaminophen [Tylenol Arthritis] 650 mg PO Q12H PRN 03/22/24 03/22/24 History Amino Acids/Protein Hydrolys 30 ml PO DAILY 03/22/24 03/22/24 History [Pro-Stat Awc Liquid] Icy Hot External Patch 5% 1 patch TOPICAL DAILY 03/22/24 03/22/24 History Allergies Allergy/AdvReac Type Severity Reaction Status Date / Time adhesive tape Allergy Rash/Hives Verified 03/22/24 11:26 cinnamon Allergy Rash/Hives Verified 03/22/24 11:26 Physical Exam Vitals: Vital Signs Temp Pulse Pulse Resp BP BP Pulse Ox 03/22/24 07:00 98.1 F 101 H 20 117/81 94 L 03/22/24 04:54 98.1 F 102 H 18 125/64 94 L 03/22/24 04:34 98.9 F 112 H 18 94 L 03/22/24 02:33 98.8 F 107 H 18 107/72 95 03/22/24 00:17 99.6 F 115 H 18 95 03/21/24 22:46 101 F H 116 H 18 110/73 95 03/21/24 21:28 100.3 F H 113 H 18 97 03/21/24 20:25 100.1 F H 112 H 18 136/78 95 Intake and Output 03/22/24 03/22/24 03/22/24 06:59 14:59 22:59 Other: Voiding Method Indwelling Catheter Weight 117.934 kg Results CBC & Chem 7: 03/22/24 02:48 03/22/24 02:48 Labs: Abnormal Lab Results - Last 24 Hours (Table) 03/21/24 03/21/24 03/21/24 Range/Units 20:46 20:46 20:54 Hgb 11.3 L (11.4-16.0) gm/dL Hct (34.0-46.0) % RDW 16.7 H (11.5-15.5) % Lymphocytes # 0.4 L (1.0-4.8) k/uL BUN 22 H (7-17) mg/dL Glucose 142 H (74-99) mg/dL Urine Appearance Cloudy H (Clear) Urine Protein 1+ H (Negative) Urine Blood Small H (Negative) Urine Nitrite Positive H (Negative) Ur Leukocyte Esterase Large H (Negative) Urine RBC 36 H (0-5) /hpf Urine WBC 135 H (0-5) /hpf Urine WBC Clumps Many H (None) /hpf Urine Bacteria Few H (None) /hpf Urine Mucus Rare H (None) /hpf 03/22/24 03/22/24 Range/Units 02:48 02:48 Hgb 10.6 L (11.4-16.0) gm/dL Hct 32.7 L (34.0-46.0) % RDW 16.8 H (11.5-15.5) % Lymphocytes # 0.8 L (1.0-4.8) k/uL BUN 21 H (7-17) mg/dL Glucose 140 H (74-99) mg/dL Urine Appearance (Clear) Urine Protein (Negative) Urine Blood (Negative) Urine Nitrite (Negative) Ur Leukocyte Esterase (Negative) Urine RBC (0-5) /hpf Urine WBC (0-5) /hpf Urine WBC Clumps (None) /hpf Urine Bacteria (None) /hpf Urine Mucus (None) /hpf Thrombosis Risk Factor Assmnt - Choose All That Apply Each Factor Represents 1 point: Age 41-60 years, Obesity (BMI >25) Thrombosis Risk Factor Assessment Total Risk Factor Score: 2 Thrombosis Risk Factor Assessment Level: Low Risk
[2024-03-22] MEDS: ENOXAPARIN 40 MG/0.4 ML SYRINGE SQ SCH (16:14)
[2024-03-22 17:11] LABS: Appearance,Urine Cloudy (Clear); Bacteria,Urine Occasional /hpf; Bilirubin,Urine Negative (Negative); Blood,Urine Moderate (Negative); Color,Urine Light Yellow; Glucose,Urine (UA) Negative (Negative); Ketones,Urine Negative (Negative); Leukocyte Esterase,Urine Large (Negative); Mucus,Urine Rare /hpf; Nitrite,Urine Positive (Negative); Protein,Urine 2+ (Negative); RBC,Urine 116 /hpf (0-5); Specific Gravity,Urine 1.014 (1.001-1.035); Squamous Epithelial Cell,Urine 1 /hpf (0-4); Urobilinogen,Urine <2.0 mg/dL (<2.0); WBC,Urine >182 /hpf (0-5)
[2024-03-22] MEDS: DIROXIMEL FUMARATE 231 MG PO SCH (18:14)
[2024-03-22] MEDS: GABAPENTIN 300 MG CAP PO SCH (18:19)
[2024-03-22] MEDS: ASCORBIC ACID 500 MG TAB PO SCH (20:30)
[2024-03-22] MEDS: POTASSIUM CHLORIDE ER 20 MEQ TAB.ER PO SCH (20:30)
[2024-03-22] MEDS: ASPIRIN 81 MG PO SCH (20:30)
[2024-03-22] MEDS: MULTIVITAMINS, THERA 1 EACH TAB PO SCH (20:31)
[2024-03-22] MEDS: ATORVASTATIN 10 MG TAB PO SCH (20:31)
[2024-03-22] MEDS: SENNOSIDES 8.6 MG TAB PO SCH (20:31)
[2024-03-22] MEDS: FOLIC ACID 1 MG TAB PO SCH (20:31)
--- NOTE | 2024-03-22 21:49 | P.CONS ---
History of Present Illness - Reason for Consult Consult date: 03/22/24 UTI with a history of MDRO Requesting physician: Eyal Bui - Chief Complaint Fever x 1 day - History of Present Illness Patient is a 53-year-old female with a past medical history significant for MS hyperlipidemia patient did have a history of sacral osteom yelitis and chronic pressure ulcer to the posterior thigh area and also with recurrent admission to the hospital for catheter associated UTI as the patient did have Austin catheter for retention patient has been sent to [facility] ER last night after the patient started having a fever patient was noticing more lethargic patient mention her symptoms transiently of patient has been brought into the hospital patient denies any headache or URI symptoms denies any chest pain shortness of breath or cough some nausea but no vomiting no abdominal pain or diarrhea patient mention most of her wound healed except one of them and not very clear in the Austin catheter was changed last patient on presentation to hospital have a low-grade fever subsequently did have a temperature of 101 F patient was tachycardic but not hypotensive or hypoxic and no need for supplemental oxygen patient did have white count 7.3 with creatinine has been normal liver isms are normal electrolytes are normal urine has been significantly positive with large ascites risk 135 WBC influenza RSV COVID testing was negative patient did have a chest x-ray with mild pulmonary vascular congestion concerning for possible pulmonary edema he was started on Rocephin infectious disease was consulted for further management of antibiotic therapy Review of Systems Positive point and negatives has been mentioned in the HPI, complete review of systems was performed and all other systems are negative Past Medical History Past Medical History: Hyperlipidemia, Musculoskeletal Disorder, Neurologic Disorder, Pneumonia, Renal Disease, Skin Disorder Additional Past Medical History / Comment(s): Multiple sclerosis stage IV- wheelchair bound, L side weaker than right, past renal failure with hemodialysis-last time was July 2016, neurogenic bladder with indwelling austin, past sepsis, iron deficiency anemia, wounds present on bilateral gluteal folds and sacral area History of Any Multi-Drug Resistant Organisms: ESBL, MRSA, VRE Year Discovered:: 02/20/24 ESBL; 06/19/23 MRSA; 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 She states she is mostly wheelchair bound-sit to stand device to chair. She has an IDC. Pt feeds herself. Smoking Status: Never smoker Past Alcohol Use History: None Reported Additional Past Alcohol Use History / Comment(s): Patient is a lifelong nonsmoker. She denies any alcohol abuse. Past Drug Use History: None Reported - Past Family History Father History Unknown: Yes Additional Family Medical History / Comment(s): PTS DAD LIVED IN [place]- SHE'S NOT SURE WHAT HE FROM. HE HAD HYPOTENSION. Mother Family Medical History: Coronary Artery Disease (CAD), Diabetes Mellitus, Hyperlipidemia, Hypertension Additional Family Medical History / Comment(s): CARDIAC STENTS Medications and Allergies Home Medications Medication Instructions Recorded Confirmed Type Potassium Chloride ER [K-Dur 20] 20 meq PO BID 01/12/19 03/22/24 History Aspirin 81 mg PO HS 09/15/19 03/22/24 History Sennosides [Senna] 8.6 mg PO BID 01/31/20 03/22/24 History Atorvastatin [Lipitor] 10 mg PO HS 09/22/21 03/22/24 History Diroximel Fumarate [Vumerity] 462 mg PO BID@0700,1900 09/22/21 03/22/24 History Levothyroxine Sodium [Synthroid] 75 mcg PO DAILY@0500 09/22/21 03/22/24 History Ascorbic Acid [Vitamin C] 500 mg PO HS 05/14/22 03/22/24 History Furosemide [Lasix] 20 mg PO DAILY 05/14/22 03/22/24 History Baclofen 10 mg PO TID@0700,1300,1900 12/22/22 03/22/24 History Folic Acid 0.4 mg PO BID 06/19/23 03/22/24 History Naloxone HCl 0.4 mg SQ ONCE PRN 06/19/23 03/22/24 History Artificial Tears-Hypromellose 1 drop BOTH EYES DAILY 09/24/23 03/22/24 History [Artificial Tear Drops] Esomeprazole Magnesium [NexIUM] 20 mg PO DAILY 09/24/23 03/22/24 History Gabapentin [Neurontin] 300 mg PO BID@0700,1900 3 Days #6 11/17/23 03/22/24 Rx cap NS Multivit-Min/FA/Lycopen/Lutein 1 tab PO HS 02/20/24 03/22/24 History [Centrum Silver Tablet] Naloxone 0.4mg/Ml Injection 0.4 mg IV ONCE PRN 02/20/24 03/22/24 History Solution HYDROcodone/APAP 7.5-325MG [[place] 1 tab PO QID@07,13,19,23 #4 tab 02/24/24 03/22/24 Rx 7.5-325] Acetaminophen [Tylenol Arthritis] 650 mg PO Q12H PRN 03/22/24 03/22/24 History Amino Acids/Protein Hydrolys 30 ml PO DAILY 03/22/24 03/22/24 History [Pro-Stat Awc Liquid] Icy Hot External Patch 5% 1 patch TOPICAL DAILY 03/22/24 03/22/24 History Allergies Allergy/AdvReac Type Severity Reaction Status Date / Time adhesive tape Allergy Rash/Hives Verified 03/22/24 11:26 cinnamon Allergy Rash/Hives Verified 03/22/24 11:26 Physical Exam Vitals: Vital Signs Temp Pulse Pulse Resp BP BP Pulse Ox 03/22/24 07:00 98.1 F 101 H 20 117/81 94 L 03/22/24 04:54 98.1 F 102 H 18 125/64 94 L 03/22/24 04:34 98.9 F 112 H 18 94 L 03/22/24 02:33 98.8 F 107 H 18 107/72 95 03/22/24 00:17 99.6 F 115 H 18 95 03/21/24 22:46 101 F H 116 H 18 110/73 95 03/21/24 21:28 100.3 F H 113 H 18 97 03/21/24 20:25 100.1 F H 112 H 18 136/78 95 Intake and Output 03/21/24 03/22/24 03/22/24 22:59 06:59 14:59 Other: Voiding Method Indwelling Catheter Weight 117.934 kg 117.934 kg GENERAL DESCRIPTION: Middle-aged female lying in bed, no distress. No tachypnea or accessory muscle of respiration use. HEENT: Shows Pallor , no scleral icterus. Oral mucous membrane is dry. NECK: Trachea central, no thyromegaly. LUNGS: Unlabored breathing. Clear to auscultation anteriorly. No wheeze or crackle. HEART: S1, S2, regular rate and rhythm. No loud murmur ABDOMEN: Soft, no tenderness , guarding or rigidity, no organomegaly EXTREMITIES: Diffuse swelling bilateral extremity minimal redness SKIN: No rash, no masses palpable. NEUROLOGICAL: The patient is awake, alert, oriented x3, mood and affect normal. Results CBC & Chem 7: 03/23/24 04:58 03/23/24 04:58 Labs: Abnormal Lab Results - Last 24 Hours (Table) 03/21/24 03/21/24 03/21/24 Range/Units 20:46 20:46 20:54 Hgb 11.3 L (11.4-16.0) gm/dL Hct (34.0-46.0) % RDW 16.7 H (11.5-15.5) % Lymphocytes # 0.4 L (1.0-4.8) k/uL BUN 22 H (7-17) mg/dL Glucose 142 H (74-99) mg/dL Urine Appearance Cloudy H (Clear) Urine Protein 1+ H (Negative) Urine Blood Small H (Negative) Urine Nitrite Positive H (Negative) Ur Leukocyte Esterase Large H (Negative) Urine RBC 36 H (0-5) /hpf Urine WBC 135 H (0-5) /hpf Urine WBC Clumps Many H (None) /hpf Urine Bacteria Few H (None) /hpf Urine Mucus Rare H (None) /hpf 03/22/24 03/22/24 Range/Units 02:48 02:48 Hgb 10.6 L (11.4-16.0) gm/dL Hct 32.7 L (34.0-46.0) % RDW 16.8 H (11.5-15.5) % Lymphocytes # 0.8 L (1.0-4.8) k/uL BUN 21 H (7-17) mg/dL Glucose 140 H (74-99) mg/dL Urine Appearance (Clear) Urine Protein (Negative) Urine Blood (Negative) Urine Nitrite (Negative) Ur Leukocyte Esterase (Negative) Urine RBC (0-5) /hpf Urine WBC (0-5) /hpf Urine WBC Clumps (None) /hpf Urine Bacteria (None) /hpf Urine Mucus (None) /hpf Assessment and Plan (1) Catheter-associated urinary tract infection Current Visit: Yes Status: Acute Code(s): T83.511A - I/I REACT D/T INDWELLING URETHRAL CATHETER, INIT; N39.0 - URINARY TRACT INFECTION, SITE NOT SPECIFIED SNOMED Code(s): 259908786 (2) Sepsis Current Visit: No Status: Acute Code(s): A41.9 - SEPSIS, UNSPECIFIED ORGANISM SNOMED Code(s): 62446408 Plan: 1patient [facility] with sepsis in this patient who did have fever ta chycardia source is likely catheter assisted UTI in this patient who recently did have infection with ESBL E. coli. 2we will discontinue Rocephin. 3Invanz 1 g daily 4-we will apply Aquacel silver dressing to her right posterior thigh wound change q. 48-hour 5-change Austin catheter obtain urine culture from the new Austin We will follow on clinical condition and cultures to further adjust medication if needed Thank you for this consultation we will follow the patient along with you Dictation was produced using [email or web address] dictation software. please excuse any grammatical, word or spelling errors. Time with Patient: Greater than 30
[2024-03-23] MEDS: LEVOTHYROXINE 75 MCG TAB PO SCH (06:00)
[2024-03-23] MEDS: ARTIFICIAL TEARS-HYPROMELLOSE DROPS 15 ML BTL BOTH EYES SCH (07:46)
[2024-03-23] MEDS: FUROSEMIDE 20 MG TAB PO SCH (07:46)
[2024-03-23] MEDS: PANTOPRAZOLE 40 MG TABLET PO SCH (07:52)
[2024-03-23] MEDS ORDERED: NON FORMULARY DRUG (Esomeprazole Magnesium [Nexium] 20 MG Capsule.Dr) PO SCH (09:00)
[2024-03-23] MEDS ORDERED: NON FORMULARY DRUG (Amino Acids/Protein Hydrolys [Pro-Stat Awc Liquid] 887 ML Liquid) PO SCH (09:00)
[2024-03-23] MEDS ORDERED: [UNRECOGNIZED DRUG - OTHER] TOPICAL SCH (09:00)
[2024-03-23 09:14] LABS: Basophils # (A) 0.04 X 10*3/uL (0.00-0.10); Basophils % (A) 0.9 %; Eosinophils # (A) 0.12 X 10*3/uL (0.04-0.35); Eosinophils % (A) 2.6 %; HGB 9.8 g/dL (12.0-15.0); Lymphocytes # (A) 0.58 X 10*3/uL (0.90-5.00); Lymphocytes % (A) 12.4 %; MCH 26.5 pg (27.0-32.0); MCHC 30.6 g/dL (32.0-37.0); MCV 86.5 FL (80.0-97.0); Mean Platelet Volume 10.1 FL (9.5-12.2); Monocytes # (A) 0.33 X 10*3/uL (0.20-1.00); Monocytes % (A) 7.1 %; NRBC Per 100 WBC 0 X 10*3/uL (0.00-0.01); Neutrophils # (A) 3.56 X 10*3/uL (1.80-7.70); Neutrophils % (A) 76.1 %; Platelet Count 230 X 10*3/uL (140-440); RDW 17.7 % (11.5-14.5); WBC 4.67 X 10*3/uL (4.50-10.00)
[2024-03-23 09:22] LABS: BUN/Creat Ratio 20.25 Ratio (12.00-20.00); Blood Urea Nitrogen 16.2 mg/dL (9.0-27.0); Calcium 8.9 mg/dL (8.7-10.3); Chloride 108 mmol/L (96-109); Glucose 143 mg/dL (70-110); Sodium 143 mmol/L (135-145)
--- NOTE | 2024-03-23 14:51 | P.PN ---
Subjective Progress Note Date: 03/23/24 Interval History: History of present illness: 53-year-old female with past medical history significant for multiple sclerosis, chronically wheelchair-bound, stage IV sacral ulcers, chronic Chaves's catheter, neurogenic bladder, hyperlipidemia who presented to the ER for evaluation of fever. Patient is a poor historian. Patient reported that she is in the hospital for UTI and IV antibiotics. In the ED patient was febrile with a temperature of 101, was tachycardic heart rate 116, respiratory rate 18, blood pressure 110/73, saturating 95% on room air. WBC 7.3, hemoglobin 11.3, platelet 193. BMP and liver profile was unremarkable. Creatinine was 0.75 GFR more than 90. UA was positive with large leukocyte esterase, nitrite, 135 WBCs. COVID RSV and influenza was negative. Chest x-ray showed mild cardiomegaly with progressive interstitial and patchy bilateral opacities. 03/23/24--patient was seen and examined today. No issues overnight, afebrile, heart rate 83, respiratory rate 20, blood pressure 118/81, saturating 97% on room air. WBCs 4.6, hemoglobin 9.8, platelet 230. BMP unremarkable. Chaves's catheter change yesterday, UA and repeat cultures obtained. Patient currently on Invanz. Infectious disease following. Assessment and plan: Fever: UTI: Chronic indwelling Chaves catheter History of MDRO: Stage IV sacral ulcer Multiple sclerosis Neurogenic bladder Wheelchair-bound Hypothyroidism: Plan: Presented with fever, UA positive, history of stage IV sacral ulcers Wound care, Aquacel dressing Urine culture Blood culture ID consulted Ertapenem Urology consult due to difficult Chaves catheter placement. DVT prophylaxis Subcutaneous Lovenox Monitor vital signs and labs Labs and medication were reviewed. Continue same treatment. Resume home meds. Further recommendations as per clinical course of the patient PHYSICAL EXAMINATION: GENERAL: The patient is A&O x3, NAD HEENT: EOMI, Sclerae anicteric, Moist Mucous membranes Neck: Supple, Non tender, No JVD PULMONARY: Equal breath souds B/L, No wheezing, No crackles. CARDIOVASCULAR: S1, S2 present. No murmurs, rubs, or gallops. ABDOMEN: Soft, nontender, nondistended, normoactive bowel sounds. No guarding or rebound tenderness. MUSCULOSKELETAL: + edema, No cyanosis. No clubbing. Normal ROM. Intact peripheral pulses. NEUROLOGICAL: CN 2-12 grossly intact. No FND. Chronic lower extremity, left upper extremity weakness. REVIEW OF SYSTEMS: CONSTITUTIONAL: No fever, no malaise, no fatigue. HEENT: No recent visual problems or hearing problems. Denied any sore throat. CARDIOVASCULAR: No chest pain, orthopnea, PND, no palpitations, no syncope. PULMONARY: No shortness of breath, no cough, no hemoptysis. GASTROINTESTINAL: No diarrhea, no nausea, no vomiting, no abdominal pain. NEUROLOGICAL: No headaches, no weakness, no numbness. HEMATOLOGICAL: Denies any bleeding or petechiae. GENITOURINARY: Suprapubic pain. MUSCULOSKELETAL/RHEUMATOLOGICAL: Denies any joint pain, swelling, or any muscle pain. ENDOCRINE: Denies any polyuria or polydipsia. The rest of the 14-point review of systems is negative. Dictation was produced using [employer] dictation software. please excuse any grammatical, word or spelling errors. Objective - Vital Signs Vital signs: Vital Signs Temp 98.0 F 03/23/24 13:16 Pulse 83 03/23/24 13:16 Resp 20 03/23/24 13:16 BP 118/81 03/23/24 13:16 Pulse Ox 97 03/23/24 13:16 FiO2 Intake & Output 03/22/24 03/23/24 03/23/24 18:59 06:59 18:59 Intake Total 480 Output Total 1000 900 Balance -1000 -420 Intake: Oral 480 Output: Urine 1000 900 Other: Voiding Method Indwelling Catheter Indwelling Catheter Indwelling Catheter - Labs CBC & Chem 7: 03/23/24 04:58 03/23/24 04:58 Labs: Abnormal Lab Results - Last 24 Hours (Table) 03/22/24 03/23/24 03/23/24 Range/Units 16:35 04:58 04:58 RBC 3.70 L (4.10-5.20) X 10*6/uL Hgb 9.8 L (12.0-15.0) g/dL Hct 32.0 L (37.2-46.3) % MCH 26.5 L (27.0-32.0) pg MCHC 30.6 L (32.0-37.0) g/dL RDW 17.7 H (11.5-14.5) % Lymphocytes # 0.58 L (0.90-5.00) X 10*3/uL Carbon Dioxide 21.0 L (21.6-31.8) mmol/L Anion Gap 14.00 H (4.00-12.00) mmol/L BUN/Creatinine Ratio 20.25 H (12.00-20.00) Ratio Glucose 143 H (70-110) mg/dL Urine Appearance Cloudy H (Clear) Urine Protein 2+ H (Negative) Urine Blood Moderate H (Negative) Urine Nitrite Positive H (Negative) Ur Leukocyte Esterase Large H (Negative) Urine RBC 116 H (0-5) /hpf Urine WBC >182 H (0-5) /hpf Urine WBC Clumps Few H (None) /hpf Urine Bacteria Occasional H (None) /hpf Urine Mucus Rare H (None) /hpf Microbiology - Last 24 Hours (Table) 03/21/24 20:46 Blood Culture - Preliminary Blood 03/21/24 20:54 Urine Culture - Preliminary Urine,Voided
--- NOTE | 2024-03-23 15:21 | P.PN ---
Subjective Progress Note Date: 03/23/24 Principal diagnosis: Today for follow-up is catheter associated UTI Patient is a 53-year-old female with a past medical history significant for MS hyperlipidemia patient did have a history of sacral osteomyelitis and chronic pressure ulcer to the posterior thigh area and also with recurrent admission to the hospital for catheter associated UTI as the patient did have Chaves catheter for retention patient has been sent to [facility] ER for evaluation of fever has been diagnosed with a catheter associated UTI. On today's evaluation that is 03/23/2024,the patient did have resolution of fever and is afebrile today, patient is on room air not requiring supplemental oxygen and denies any shortness of breath no chest pain or cough.Patient denies having any nausea or vomiting, no abdominal pain and no diarrhea has been reported. Patient white count is 4.67, creatinine 0.8 urine culture currently pending Objective - Vital Signs Vital signs: Vital Signs Temp 98.0 F 03/23/24 13:16 Pulse 83 03/23/24 13:16 Resp 20 03/23/24 13:16 BP 118/81 03/23/24 13:16 Pulse Ox 97 03/23/24 13:16 FiO2 Intake & Output 03/22/24 03/23/24 03/23/24 18:59 06:59 18:59 Intake Total 480 Output Total 1000 900 Balance -1000 -420 Intake: Oral 480 Output: Urine 1000 900 Other: Voiding Method Indwelling Catheter Indwelling Catheter Indwelling Catheter - Exam GENERAL DESCRIPTION: Middle-age female lying in bed in no distress RESPIRATORY SYSTEM: Unlabored breathing , decreased breath sounds at bases HEART: S1 S2 regular rate and rhythm , ABDOMEN: Soft , no tenderness EXTREMITIES: Bilateral legs are currently wrapped in Tarik wrap - Labs CBC & Chem 7: 03/23/24 04:58 03/23/24 04:58 Labs: Abnormal Lab Results - Last 24 Hours (Table) 03/22/24 03/23/24 03/23/24 Range/Units 16:35 04:58 04:58 RBC 3.70 L (4.10-5.20) X 10*6/uL Hgb 9.8 L (12.0-15.0) g/dL Hct 32.0 L (37.2-46.3) % MCH 26.5 L (27.0-32.0) pg MCHC 30.6 L (32.0-37.0) g/dL RDW 17.7 H (11.5-14.5) % Lymphocytes # 0.58 L (0.90-5.00) X 10*3/uL Carbon Dioxide 21.0 L (21.6-31.8) mmol/L Anion Gap 14.00 H (4.00-12.00) mmol/L BUN/Creatinine Ratio 20.25 H (12.00-20.00) Ratio Glucose 143 H (70-110) mg/dL Urine Appearance Cloudy H (Clear) Urine Protein 2+ H (Negative) Urine Blood Moderate H (Negative) Urine Nitrite Positive H (Negative) Ur Leukocyte Esterase Large H (Negative) Urine RBC 116 H (0-5) /hpf Urine WBC >182 H (0-5) /hpf Urine WBC Clumps Few H (None) /hpf Urine Bacteria Occasional H (None) /hpf Urine Mucus Rare H (None) /hpf Microbiology - Last 24 Hours (Table) 03/21/24 20:46 Blood Culture - Preliminary Blood 03/21/24 20:54 Urine Culture - Preliminary Urine,Voided Assessment and Plan (1) Catheter-associated urinary tract infection Current Visit: Yes Status: Acute Code(s): T83.511A - I/I REACT D/T INDWELLING URETHRAL CATHETER, INIT; N39.0 - URINARY TRACT INFECTION, SITE NOT SPECIFIED SNOMED Code(s): 406257729 (2) Sepsis Current Visit: No Status: Acute Code(s): A41.9 - SEPSIS, UNSPECIFIED ORGANISM SNOMED Code(s): 20203178 Plan: 1patient presented hospital with sepsis in this patient who did have fever tachycardia source is likely catheter assisted UTI in this patient who recently did have infection with ESBL E. coli. 2 patient to continue with Aquacel silver dressing to her right posterior thigh wound change q. 48-hour along with Tarik wrap to the leg 3Foley catheter has been changed we will continue with Invanz while waiting for the culture to finalize Dictation was produced using [employer] software. please excuse any grammatical, word or spelling errors. Time with Patient: Less than 30
--- NOTE | 2024-03-24 15:03 | P.PN ---
Subjective Progress Note Date: 03/24/24 Principal diagnosis: Today for follow-up is catheter associated UTI Patient is a 53-year-old female with a past medical history significant for MS hyperlipidemia patient did have a history of sacral osteomyelitis and chronic pressure ulcer to the posterior thigh area and also with recurrent admission to the hospital for catheter associated UTI as the patient did have Chaves catheter for retention patient has been sent to [facility] ER for evaluation of fever has been diagnosed with a catheter associated UTI. On today's evaluation that is 03/24/2024, the patient continues to be afebrile, the patient is on room air and breathing comfortably, the Pt denies having any chest pain or cough, the patient denies having any abdominal pain no vomiting or any diarrhea, patient mention feeling better wants to go back. No new lab has been repeated today to set of urine culture negative blood culture so far negative Objective - Vital Signs Vital signs: Vital Signs Temp 97.3 F L 03/24/24 07:03 Pulse 77 03/24/24 07:03 Resp 18 03/24/24 07:03 BP 116/82 03/24/24 07:03 Pulse Ox 100 03/24/24 07:03 FiO2 Intake & Output 03/23/24 03/24/24 03/24/24 18:59 06:59 18:59 Intake Total 500 Output Total 1925 1000 Balance -1425 -1000 Intake: Oral 500 Output: Urine 1925 1000 Other: Voiding Method Indwelling Catheter Indwelling Catheter # Bowel Movements 1 - Exam GENERAL DESCRIPTION: Middle-age female lying in bed in no distress RESPIRATORY SYSTEM: Unlabored breathing , decreased breath sounds at bases HEART: S1 S2 regular rate and rhythm , ABDOMEN: Soft , no tenderness EXTREMITIES: Bilateral legs are currently wrapped in Tarik wrap - Labs CBC & Chem 7: 03/23/24 04:58 03/23/24 04:58 Labs: Microbiology - Last 24 Hours (Table) 03/21/24 20:46 Blood Culture - Preliminary Blood 03/22/24 16:35 Urine Culture - Final Urine,Catheterized 03/21/24 20:54 Urine Culture - Final Urine,Voided Assessment and Plan (1) Catheter-associated urinary tract infection Current Visit: Yes Status: Acute Code(s): T83.511A - I/I REACT D/T INDWELLING URETHRAL CATHETER, INIT; N39.0 - URINARY TRACT INFECTION, SITE NOT SPECIFIED SNOMED Code(s): 437470583 (2) Sepsis Current Visit: No Status: Acute Code(s): A41.9 - SEPSIS, UNSPECIFIED ORGANISM SNOMED Code(s): 82477966 Plan: 1patient presented hospital with sepsis in this patient who did have fever tachycardia source is likely catheter assisted UTI in this patient who recently did have infection with ESBL E. coli. 2 patient to continue with Aquacel silver dressing to her right posterior thigh wound change q. 48-hour along with Tarik wrap to the leg 3Foley catheter has been changed, Urine culture x 2 has been negative blood culture negative she is on Invanz finishing therapy with oral Ceftin 500 mg twice daily for 7 days on discharge discussed with the admitting physician Dictation was produced using [employer] dictation software. please excuse any grammatical, word or spelling errors. Time with Patient: Less than 30
--- NOTE | 2024-03-24 15:18 | P.DS ---
Providers Date of admission: 03/21/24 21:03 Expected date of discharge: 03/24/24 Attending physician: Clementine Mc Consults: 03/22/24 09:51 Consult Physician Routine Consulting Provider: Bobo Rivero Consult Reason/Comments: Sacral ulcers, UTI, h/o MDRO Do you want consulting provider notified?: Yes 03/22/24 15:24 Consult Physician Routine Consulting Provider: Yung Oliver Consult Reason/Comments: unable to place austin Do you want consulting provider notified?: Yes Primary care physician: Brianne Gomez DO Hospital Course: Discharge diagnoses: Fever: UTI: Chronic indwelling Austin catheter History of MDRO: Stage IV sacral ulcer Multiple sclerosis Neurogenic bladder Wheelchair-bound Hypothyroidism: Plan: Presented with fever, UA positive, history of stage IV sacral ulcers Wound care, Aquacel dressing Urine culture and blood culture remain negative. Urology consult due to difficult Austin catheter placement for exchange ID consultedreceived Invanz during hospitalization, continued on Ceftin at discharge. Hospital course: History of present illness: 53-year-old female with past medical history significant for multiple sclerosis, chronically wheelchair-bound, stage IV sacral ulcers, chronic Austin's catheter, neurogenic bladder, hyperlipidemia who presented to the ER for evaluation of fever. Patient is a poor historian. Patient reported that she is in the hospital for UTI and IV antibiotics. In the ED patient was febrile with a temperature of 101, was tachycardic heart rate 116, respiratory rate 18, blood pressure 110/73, saturating 95% on room air. WBC 7.3, hemoglobin 11.3, platelet 193. BMP and liver profile was unremarkable. Creatinine was 0.75 GFR more than 90. UA was positive with large leukocyte esterase, nitrite, 135 WBCs. COVID RSV and influenza was negative. Chest x-ray showed mild cardiomegaly with progressive interstitial and patchy bilateral opacities. 03/23/24--patient was seen and examined today. No issues overnight, afebrile, heart rate 83, respiratory rate 20, blood pressure 118/81, saturating 97% on room air. WBCs 4.6, hemoglobin 9.8, platelet 230. BMP unremarkable. Austin's catheter change yesterday, UA and repeat cultures obtained. Patient currently on Invanz. Infectious disease following. 03/24/24--patient was seen and examined today. No issues overnight. Vital stable. Labs stable. Infectious disease recommended to continue Ceftin for 7 days. Please refer to medical assessment for further details. Patient condition vital stable at discharge. PHYSICAL EXAMINATION: GENERAL: The patient is A&O x3, NAD HEENT: EOMI, Sclerae anicteric, Moist Mucous membranes Neck: Supple, Non tender, No JVD PULMONARY: Equal breath souds B/L, No wheezing, No crackles. CARDIOVASCULAR: S1, S2 present. No murmurs, rubs, or gallops. ABDOMEN: Soft, nontender, nondistended, normoactive bowel sounds. No guarding or rebound tenderness. MUSCULOSKELETAL: No edema, No cyanosis. No clubbing. Normal ROM. Intact peripheral pulses. NEUROLOGICAL: CN 2-12 grossly intact. No FND SKIN: No rashes. Dictation was produced using [employer] dictation software. please excuse any grammatical, word or spelling errors. Patient Condition at Discharge: Fair Plan - Discharge Summary Discharge Rx Participant: No New Discharge Prescriptions: New cefuroxime axetiL [Ceftin] 500 mg PO BID #14 tab Continue Potassium Chloride ER [K-Dur 20] 20 meq PO BID Aspirin 81 mg PO HS Sennosides [Senna] 8.6 mg PO BID Levothyroxine Sodium [Synthroid] 75 mcg PO DAILY@0500 Atorvastatin [Lipitor] 10 mg PO HS Ascorbic Acid [Vitamin C] 500 mg PO HS Naloxone HCl 0.4 mg SQ ONCE PRN PRN Reason: OVERDOSE Folic Acid 0.4 mg PO BID Artificial Tears-Hypromellose [Artificial Tear Drops] 1 drop BOTH EYES DAILY Gabapentin [Neurontin] 300 mg PO BID@0700,1900 3 Days #6 cap NS Multivit-Min/FA/Lycopen/Lutein [Centrum Silver Tablet] 1 tab PO HS Naloxone 0.4mg/Ml Injection Solution 0.4 mg IV ONCE PRN PRN Reason: overdose Icy Hot External Patch 5% 1 patch TOPICAL DAILY Diroximel Fumarate [Vumerity] 462 mg PO BID@0700,1900 Furosemide [Lasix] 20 mg PO DAILY Baclofen 10 mg PO TID@0700,1300,1900 Esomeprazole Magnesium [NexIUM] 20 mg PO DAILY Acetaminophen [Tylenol Arthritis] 650 mg PO Q12H PRN PRN Reason: Pain Or Fever > 100.5 Amino Acids/Protein Hydrolys [Pro-Stat Awc Liquid] 30 ml PO DAILY HYDROcodone/APAP 7.5-325MG [Alice 7.5-325] 1 tab PO QID@,,, #12 tab Discharge Medication List Potassium Chloride ER [K-Dur 20] 20 meq PO BID 01/12/19 [History] Aspirin 81 mg PO HS 09/15/19 [History] Sennosides [Senna] 8.6 mg PO BID 01/31/20 [History] Atorvastatin [Lipitor] 10 mg PO HS 09/22/21 [History] Diroximel Fumarate [Vumerity] 462 mg PO BID@0700,1900 09/22/21 [History] Levothyroxine Sodium [Synthroid] 75 mcg PO DAILY@0500 09/22/21 [History] Ascorbic Acid [Vitamin C] 500 mg PO HS 05/14/22 [History] Furosemide [Lasix] 20 mg PO DAILY 05/14/22 [History] Baclofen 10 mg PO TID@0700,1300,1900 12/22/22 [History] Folic Acid 0.4 mg PO BID 06/19/23 [History] Naloxone HCl 0.4 mg SQ ONCE PRN 06/19/23 [History] Artificial Tears-Hypromellose [Artificial Tear Drops] 1 drop BOTH EYES DAILY 09/24/23 [History] Esomeprazole Magnesium [NexIUM] 20 mg PO DAILY 09/24/23 [History] Gabapentin [Neurontin] 300 mg PO BID@0700,1900 3 Days #6 cap NS 11/17/23 [Rx] Multivit-Min/FA/Lycopen/Lutein [Centrum Silver Tablet] 1 tab PO HS 02/20/24 [History] Naloxone 0.4mg/Ml Injection Solution 0.4 mg IV ONCE PRN 02/20/24 [History] Acetaminophen [Tylenol Arthritis] 650 mg PO Q12H PRN 03/22/24 [History] Amino Acids/Protein Hydrolys [Pro-Stat Awc Liquid] 30 ml PO DAILY 03/22/24 [History] Icy Hot External Patch 5% 1 patch TOPICAL DAILY 03/22/24 [History] HYDROcodone/APAP 7.5-325MG [Alice 7.5-325] 1 tab PO QID@,,,23 #12 tab 03/24/24 [Rx] cefuroxime axetiL [Ceftin] 500 mg PO BID #14 tab 03/24/24 [Rx] Follow up Appointment(s)/Referral(s): Brianne Gomez DO [Primary Care Provider] - 1-2 days [facility], [NON-STAFF] - As Needed Discharge Disposition: TRANSFER TO SNF/ECF
[2024-03-24 15:49] VITALS: BP 131/77; PULSE 83; RESP 17; TEMP 98.3
== END 2024-03-24 18:56 | DRG 466 ==
LOC: EC 20:16 → 4SSUR 21:03
PROVIDERS: ADMIT Hospitalist; ATTEND Hospitalist
PROC: 05HD33Z Insertion of Infusion Device into Right Cephalic Vein, Percutaneous Approach (ICD-10-PCS; principal; 2024-03-23 10:40)
DX: T83.518A Infection and inflammatory reaction due to other urinary catheter, initial encounter (principal); A41.9 Sepsis, unspecified organism; E03.9 Hypothyroidism, unspecified; Z79.890 Hormone replacement therapy; E78.5 Hyperlipidemia, unspecified; G35 Multiple sclerosis; Y84.6 Urinary catheterization as the cause of abnormal reaction of the patient, or of later complication, without mention of misadventure at the time of the procedure; N39.0 Urinary tract infection, site not specified; N31.9 Neuromuscular dysfunction of bladder, unspecified; Z11.52 Encounter for screening for COVID-19; L98.429 Non-pressure chronic ulcer of back with unspecified severity; Z79.82 Long term (current) use of aspirin; Z79.899 Other long term (current) drug therapy; D50.9 Iron deficiency anemia, unspecified; Z82.49 Family history of ischemic heart disease and other diseases of the circulatory system; Z87.440 Personal history of urinary (tract) infections; Z99.3 Dependence on wheelchair; Z91.048 Other nonmedicinal substance allergy status
CPT/HCPCS: 36410; 36415; 71045; 76937; 80048; 80053; 81001; 83605; 83690; 83735; 84100; 85025; 87040; 87086; 87636; 96361; 96365; 99285

== ENCOUNTER 2024-07-30 08:19 | Inpatient (IN) | payer OTHER ==
--- NOTE | 2024-07-30 08:40 | ED ---
General Adult HPI - General Chief complaint: Weakness Stated complaint: Sepsis Time Seen by Provider: 07/30/24 08:21 Source: patient, EMS, RN notes reviewed, old records reviewed Mode of arrival: EMS Limitations: no limitations - History of Present Illness Initial comments: Patient is a 54-year-old female present to the emergency department with concern s for fever. Patient states she did not feel well since this morning. Patient has underlying MS. Patient also has history of UTI with sepsis. Patient has known sacral wound. Patient has been having some abdominal discomfort. - Related Data Home Medications Medication Instructions Recorded Confirmed Potassium Chloride ER [K-Dur 20] 20 meq PO BID 01/12/19 03/22/24 Aspirin 81 mg PO HS 09/15/19 03/22/24 Sennosides [Senna] 8.6 mg PO BID 01/31/20 03/22/24 Atorvastatin [Lipitor] 10 mg PO HS 09/22/21 03/22/24 Diroximel Fumarate [Vumerity] 462 mg PO BID@0700,1900 09/22/21 03/22/24 Levothyroxine Sodium [Synthroid] 75 mcg PO DAILY@0500 09/22/21 03/22/24 Ascorbic Acid [Vitamin C] 500 mg PO HS 05/14/22 03/22/24 Furosemide [Lasix] 20 mg PO DAILY 05/14/22 03/22/24 Baclofen 10 mg PO TID@0700,1300,1900 12/22/22 03/22/24 Folic Acid 0.4 mg PO BID 06/19/23 03/22/24 Naloxone HCl 0.4 mg SQ ONCE PRN 06/19/23 03/22/24 Artificial Tears-Hypromellose 1 drop BOTH EYES DAILY 09/24/23 03/22/24 [Artificial Tear Drops] Esomeprazole Magnesium [NexIUM] 20 mg PO DAILY 09/24/23 03/22/24 Multivit-Min/FA/Lycopen/Lutein 1 tab PO HS 02/20/24 03/22/24 [Centrum Silver Tablet] Naloxone 0.4mg/Ml Injection 0.4 mg IV ONCE PRN 02/20/24 03/22/24 Solution Acetaminophen [Tylenol Arthritis] 650 mg PO Q12H PRN 03/22/24 03/22/24 Amino Acids/Protein Hydrolys 30 ml PO DAILY 03/22/24 03/22/24 [Pro-Stat Awc Liquid] Icy Hot External Patch 5% 1 patch TOPICAL DAILY 03/22/24 03/22/24 Previous Rx's Medication Instructions Recorded Gabapentin [Neurontin] 300 mg PO BID@0700,1900 3 Days #6 11/17/23 cap NS HYDROcodone/APAP 7.5-325MG [Adkins 1 tab PO QID@07,13,19,23 #12 tab 03/24/24 7.5-325] cefuroxime axetiL [Ceftin] 500 mg PO BID #14 tab 03/24/24 Allergies Allergy/AdvReac Type Severity Reaction Status Date / Time adhesive tape Allergy Rash/Hives Verified 07/30/24 08:24 cinnamon Allergy Rash/Hives Verified 07/30/24 08:24 Review of Systems ROS Statement: Those systems with pertinent positive or pertinent negative responses have been documented in the HPI. ROS Other: All systems not noted in ROS Statement are negative. Constitutional: Reports: as per HPI, fever Eyes: Denies: eye pain ENT: Denies: ear pain, congestion Respiratory: Denies: cough, dyspnea Cardiovascular: Denies: chest pain Endocrine: Reports: fatigue Gastrointestinal: Reports: abdominal pain Skin: Reports: as per HPI Past Medical History Past Medical History: Hyperlipidemia, Musculoskeletal Disorder, Neurologic Disorder, Pneumonia, Renal Disease, Skin Disorder Additional Past Medical History / Comment(s): Multiple sclerosis stage IV- wheelchair bound, L side weaker than right, past renal failure with hemodialysis-last time was July 2016, neurogenic bladder with indwelling austin, past sepsis, iron deficiency anemia, wounds present on bilateral gluteal folds and sacral area History of Any Multi-Drug Resistant Organisms: ESBL, MRSA, VRE Date of last positivie culture/infection: 02/20/24 ESBL; 06/19/23 MRSA; 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 MDRO Source:: ESBL - blood, urine; MRSA - blood; VRE - urine Past Surgical History: No Surgical Hx Reported Additional Past Surgical History / Comment(s): LP, debridement decubitus sacral ulcer, hemodialysis cath since removed, picc lines Past Anesthesia/Blood Transfusion Reactions: No Reported Reaction Additional Past Anesthesia/Blood Transfusion Reaction / Comment(s): NEVER HAD ANY GENERAL ANES Past Psychological History: No Psychological Hx Reported Smoking Status: Never smoker Past Alcohol Use History: None Reported Past Drug Use History: None Reported - Past Family History Father History Unknown: Yes Additional Family Medical History / Comment(s): PTS DAD LIVED IN [place]- SHE'S NOT SURE WHAT HE FROM. HE HAD HYPOTENSION. Mother Family Medical History: Coronary Artery Disease (CAD), Diabetes Mellitus, Hyperlipidemia, Hypertension Additional Family Medical History / Comment(s): CARDIAC STENTS General Exam Limitations: no limitations General appearance: alert, in no apparent distress Head exam: Present: normocephalic Eye exam: Present: PERRL, other (Disconjugate gaze) ENT exam: Present: normal oropharynx Neck exam: Present: normal inspection. Absent: tenderness, meningismus Respiratory exam: Present: normal lung sounds bilaterally Cardiovascular Exam: Present: tachycardia GI/Abdominal exam: Present: tenderness (Mild diffuse tenderness) Extremities exam: Present: normal inspection Neurological exam: Present: alert Psychiatric exam: Present: normal affect, normal mood Skin exam: Present: other (Bilateral anterior lower legs with mild erythema consistent with chronic cellulitis. Patient does have large sacral wound that appears mostly chronic however does have some stool in it. Patient also has left gluteal wound at least stage III) Course Vital Signs 07/30/24 07/30/24 07/30/24 08:22 09:40 10:34 Temperature 103.8 F H 102.8 F H Pulse Rate 142 H 137 H 134 H Respiratory 24 24 20 Rate Blood Pressure 147/83 125/57 123/56 O2 Sat by Pulse 93 L 96 95 Oximetry EKG Findings - EKG Results: EKG: interpreted by ERMD (Low QRS voltage), sinus rhythm, normal axis, normal ST/T EKG shows: tachycardia Medical Decision Making - Medical Decision Making Was pt. sent in by a medical professional or institution (, PA, COLLAR POINTER, urgent c are, hospital, or group home...) When possible be specific @ -Patient sent from group home Did you speak to anyone other than the patient for history (EMS, parent, family, police, friend...)? What history was obtained from this source @ -No Did you review nursing and triage notes (agree or disagree)? Why? @ -I reviewed and agree with nursing and triage notes Were old charts reviewed (outside hosp., previous admission, EMS record, old EKG, old radiological studies, urgent care reports/EKG's, group home records)? Report findings @ -Chart reviewed from group home with concern for patient having sepsis Differential Diagnosis (chest pain, altered mental status, abdominal pain women, abdominal pain men, vaginal bleeding, weakness, fever, dyspnea, syncope, headache, dizziness, GI bleed, back pain, seizure, CVA, palpatations, mental health, musculoskeletal)? @ -Differential Fever: Pneumonia, viral URI, endocarditis, myocarditis, pericarditis, otitis, sinusitis, peritonsillar Abscess, retropharyngeal Abscess, epiglottitis, peritonitis, appendicitis, Juju cystitis, diverticulitis, hepatitis, colitis, UTI, PID, TOA, pyelonephritis, prostatitis, epididymitis, meningitis, enc ephalitis, pulmonary embolism, CVA, thyroid storm, pancreatitis, adrenal crisis, cavernous sinus thrombosis, this is not meant to be an all-inclusive list. EKG interpreted by me (3pts min.). @ -As above X-rays interpreted by me (1pt min.). @ -Chest x-ray interpreted by myself shows low lung volumes. CT interpreted by me (1pt min.). @ -None done U/S interpreted by me (1pt. min.). @ -None done What testing was considered but not performed or refused? (CT, X-rays, U/S, labs)? Why? @ -CT abdomen pelvis shows thickened bladder. Colitis of sigmoid colon with large stool burden. 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 What meds were considered but not given or refused? Why? @ -None Did you discuss the management of the patient with other professionals (professionals i.e. , PA, COLLAR POINTER, lab, RT, psych nurse, social security specialist, door to door selling agent, teacher, special officer automat, child welfare caseworker)? Give summary @ -Case was discussed with Dr. Kyle who will admit covering Dr. Gomez Was smoking cessation discussed for >3mins.? @ -No Was critical care preformed (if so, how long)? @ -31 minutes critical care time Were there social determinants of health that impacted care today? How? (Homelessness, low income, unemployed, alcoholism, drug addiction, transportation, low edu. Level, literacy, decrease access to med. care, retirement, rehab)? @ -No Was there de-escalation of care discussed even if they declined (Discuss DNR or withdrawal of care, Hospice)? DNR status @ -No What co-morbidities impacted this encounter? (DM, HTN, Smoking, COPD, CAD, Cancer, CVA, ARF, Chemo, Hep., AIDS, mental health diagnosis, sleep apnea, morbid obesity)? @ -History of MS, history of sepsis Was patient admitted / discharged? Hospital course, mention meds given and route, prescriptions, significant lab abnormalities, going to OR and other pertinent info. @ -Patient presents with fever. There is concern for sepsis diagnosed at 10 AM. Blood culture and lactic acid and IV antibiotics have all been ordered. Patient will be admitted with ID consult and IV antibiotics. Admission orders written. Patient updated Undiagnosed new problem with uncertain prognosis? @ -No Drug Therapy requiring intensive monitoring for toxicity (Heparin, Nitro, Insulin, Cardizem)? @ -No Were any procedures done? @ -No Diagnosis/symptom? @ -UTI, sepsis Acute, or Chronic, or Acute on Chronic? @ -Acute, acute Uncomplicated (without systemic symptoms) or Complicated (systemic symptoms)? @ -Complicated with history of ESBL therefore patient started on meropenem Side effects of treatment? @ -No Exacerbation, Progression, or Severe Exacerbation? @ -No Poses a threat to life or bodily function? How? (Chest pain, [place], AL, pneumonia, PE, COPD, DKA, ARF, appy, cholecystitis, CVA, Diverticulitis, Homicidal, Suicidal, threat to staff... and all critical care pts) @ -Threat to organ dysfunction - Lab Data Result diagrams: 07/30/24 08:41 07/30/24 08:41 Lab Results 07/30/24 07/30/24 07/30/24 Range/Units 08:41 08:41 08:41 WBC 12.75 H (4.50-10.00) 10*3/uL RBC 4.59 (4.10-5.20) 10*6/uL Hgb 12.4 (12.0-15.0) g/dL Hct 38.7 (37.2-46.3) % MCV 84.3 (80.0-97.0) fL MCH 27.0 (27.0-32.0) pg MCHC 32.0 (32.0-37.0) g/dL Plt Count 317 (140-440) 10*3/uL MPV 9.7 (9.5-12.2) fL Immature Gran % (Auto) 0.5 % Neutrophils % 91.4 % Lymphocytes % 4.4 % Monocytes % 2.5 % Eosinophils % 0.9 % Basophils % 0.3 % Immature Gran # 0.06 H (0.00-0.04) 10*3/uL Neutrophils # 11.65 H (1.80-7.70) 10*3/uL Lymphocytes # 0.56 L (0.90-5.00) 10*3/uL Monocytes # 0.32 (0.20-1.00) 10*3/uL Eosinophils # 0.12 (0.04-0.35) 10*3/uL Basophils # 0.04 (0.00-0.10) 10*3/uL PT 11.6 (10.0-12.5) sec INR 1.1 (<1.2) APTT 24.5 (22.0-30.0) sec Sodium (137-145) mmol/L Potassium (3.5-5.1) mmol/L Chloride (98-107) mmol/L Carbon Dioxide (22-30) mmol/L Anion Gap mmol/L BUN (7-17) mg/dL Creatinine (0.52-1.04) mg/dL Est GFR (CKD-EPI)AfAm (>60 ml/min/1.73 sqM) Est GFR (CKD-EPI)NonAf (>60 ml/min/1.73 sqM) Glucose (74-99) mg/dL Plasma Lactic Acid Armando (0.7-2.0) mmol/L Calcium (8.4-10.2) mg/dL Total Bilirubin (0.2-1.3) mg/dL AST (14-36) U/L ALT (4-34) U/L Alkaline Phosphatase (38-126) U/L Total Protein (6.3-8.2) g/dL Albumin (3.5-5.0) g/dL Urine Color Yellow Urine Appearance Turbid H (Clear) Urine pH 7.0 (5.0-8.0) Ur Specific Merrick 1.017 (1.001-1.035) Urine Protein 2+ H (Negative) Urine Glucose (UA) Negative (Negative) Urine Ketones Negative (Negative) Urine Blood Large H (Negative) Urine Nitrite Positive H (Negative) Urine Bilirubin Negative (Negative) Urine Urobilinogen <2.0 (<2.0) mg/dL Ur Leukocyte Esterase Large H (Negative) Urine RBC >182 H (0-5) /hpf Urine WBC >182 H (0-5) /hpf Urine WBC Clumps Many H (None) /hpf Ur Squamous Epith Cells 2 (0-4) /hpf Urine Bacteria Occasional H (None) /hpf Influenza Type A (PCR) (Not Detectd) Influenza Type B (PCR) (Not Detectd) RSV (PCR) (Not Detectd) SARS-CoV-2 (PCR) (Not Detectd) 07/30/24 07/30/24 07/30/24 Range/Units 08:41 08:41 08:41 WBC (4.50-10.00) 10*3/uL RBC (4.10-5.20) 10*6/uL Hgb (12.0-15.0) g/dL Hct (37.2-46.3) % MCV (80.0-97.0) fL MCH (27.0-32.0) pg MCHC (32.0-37.0) g/dL Plt Count (140-440) 10*3/uL MPV (9.5-12.2) fL Immature Gran % (Auto) % Neutrophils % % Lymphocytes % % Monocytes % % Eosinophils % % Basophils % % Immature Gran # (0.00-0.04) 10*3/uL Neutrophils # (1.80-7.70) 10*3/uL Lymphocytes # (0.90-5.00) 10*3/uL Monocytes # (0.20-1.00) 10*3/uL Eosinophils # (0.04-0.35) 10*3/uL Basophils # (0.00-0.10) 10*3/uL PT (10.0-12.5) sec INR (<1.2) APTT (22.0-30.0) sec Sodium 140 (137-145) mmol/L Potassium 4.7 (3.5-5.1) mmol/L Chloride 98 (98-107) mmol/L Carbon Dioxide 26 (22-30) mmol/L Anion Gap 16 mmol/L BUN 18 H (7-17) mg/dL Creatinine 0.80 (0.52-1.04) mg/dL Est GFR (CKD-EPI)AfAm >90 (>60 ml/min/1.73 sqM) Est GFR (CKD-EPI)NonAf 85 (>60 ml/min/1.73 sqM) Glucose 204 H (74-99) mg/dL Plasma Lactic Acid Armando 3.4 H* (0.7-2.0) mmol/L Calcium 10.1 (8.4-10.2) mg/dL Total Bilirubin 0.9 (0.2-1.3) mg/dL AST 27 (14-36) U/L ALT 31 (4-34) U/L Alkaline Phosphatase 109 (38-126) U/L Total Protein 7.3 (6.3-8.2) g/dL Albumin 4.4 (3.5-5.0) g/dL Urine Color Urine Appearance (Clear) Urine pH (5.0-8.0) Ur Specific Merrick (1.001-1.035) Urine Protein (Negative) Urine Glucose (UA) (Negative) Urine Ketones (Negative) Urine Blood (Negative) Urine Nitrite (Negative) Urine Bilirubin (Negative) Urine Urobilinogen (<2.0) mg/dL Ur Leukocyte Esterase (Negative) Urine RBC (0-5) /hpf Urine WBC (0-5) /hpf Urine WBC Clumps (None) /hpf Ur Squamous Epith Cells (0-4) /hpf Urine Bacteria (None) /hpf Influenza Type A (PCR) Not Detected (Not Detectd) Influenza Type B (PCR) Not Detected (Not Detectd) RSV (PCR) Not Detected (Not Detectd) SARS-CoV-2 (PCR) Not Detected (Not Detectd) Critical Care Time Critical Care Time: Yes Disposition Clinical Impression: Urinary tract infection, Sepsis Disposition: ADMITTED IP TO THIS HOSP Condition: Serious Is patient prescribed a controlled substance at d/c from ED?: No Referrals: Brianne Gomez DO [Primary Care Provider] - 1-2 days Time of Disposition: 10:05
[2024-07-30] MEDS: LACTATED RINGERS 1,000 ML IV SCH (08:54)
[2024-07-30] MEDS: ACETAMINOPHEN TAB 500 MG TAB PO STA (08:55)
[2024-07-30] MEDS: IBUPROFEN 600 MG TAB PO STA (08:56)
[2024-07-30 09:15] LABS: Basophils # (A) 0.04 10*3/uL (0.00-0.10); Basophils % (A) 0.3 %; Eosinophils # (A) 0.12 10*3/uL (0.04-0.35); Eosinophils % (A) 0.9 %; HCT 38.7 % (37.2-46.3); HGB 12.4 g/dL (12.0-15.0); Lymphocytes # (A) 0.56 10*3/uL (0.90-5.00); Lymphocytes % (A) 4.4 %; MCV 84.3 fL (80.0-97.0); Mean Platelet Volume 9.7 fL (9.5-12.2); Monocytes # (A) 0.32 10*3/uL (0.20-1.00); Monocytes % (A) 2.5 %; Neutrophils # (A) 11.65 10*3/uL (1.80-7.70); Neutrophils % (A) 91.4 %; Platelet Count 317 10*3/uL (140-440); RBC 4.59 10*6/uL (4.10-5.20); RDW 16.8 % (11.5-14.5); WBC 12.75 10*3/uL (4.50-10.00)
--- NOTE | 2024-07-30 09:19 | XR ---
EXAMINATION TYPE: XR chest 1V portable DATE OF EXAM: 07/30/2024 9:04 AM COMPARISON: Chest radiographs from 03/21/2024. CLINICAL INDICATION: Female, 54 years old with history of Fever; [facility] TECHNIQUE: XR chest 1V portable Frontal view of the chest. FINDINGS: Lungs/Pleura: Low lung volumes are present. There is no evidence of pleural effusion, focal consolida tion, or pneumothorax. Pulmonary vascularity: Unremarkable. Heart/mediastinum: Cardiomediastinal silhouette is unremarkable. Musculoskeletal: No acute osseous pathology. Other findings: None IMPRESSION: Low lung volumes with a generalized hazy appearance which could represent atelectasis versus pulmonar y edema versus likely pneumonia given similar appearance of prior. [facility], , 07/30/2024 9:17 AM
[2024-07-30 09:35] LABS: INR 1.1 (<1.2); Partial Thromboplastin Time 24.5 sec (22.0-30.0); Prothrombin Time 11.6 sec (10.0-12.5)
[2024-07-30 09:51] LABS: Appearance,Urine Turbid (Clear); Bacteria,Urine Occasional /hpf; Bilirubin,Urine Negative (Negative); Blood,Urine Large (Negative); Color,Urine Yellow; Glucose,Urine (UA) Negative (Negative); Influenza A Not Detected (Not Detectd); Influenza B Not Detected (Not Detectd); Ketones,Urine Negative (Negative); Leukocyte Esterase,Urine Large (Negative); Nitrite,Urine Positive (Negative); Protein,Urine 2+ (Negative); RBC,Urine >182 /hpf (0-5); RSV Not Detected (Not Detectd); Specific Gravity,Urine 1.017 (1.001-1.035); Squamous Epithelial Cell,Urine 2 /hpf (0-4); Urobilinogen,Urine <2.0 mg/dL (<2.0); WBC,Urine >182 /hpf (0-5)
[2024-07-30 09:57] LABS: ALT 31 U/L (4-34); AST 27 U/L (14-36); African American GFR (CKD) >90 (>60 ml/min/1.73 sqM); Albumin 4.4 g/dL (3.5-5.0); Alkaline Phosphatase 109 U/L (38-126); Anion Gap 16 mmol/L; Blood Urea Nitrogen 18 mg/dL (7-17); Calcium 10.1 mg/dL (8.4-10.2); Carbon Dioxide 26 mmol/L (22-30); Chloride 98 mmol/L (98-107); Glucose 204 mg/dL (74-99); Non-African American GFR(CKD) 85 (>60 ml/min/1.73 sqM); Potassium 4.7 mmol/L (3.5-5.1); Sodium 140 mmol/L (137-145); Total Bilirubin 0.9 mg/dL (0.2-1.3); Total Protein 7.3 g/dL (6.3-8.2)
[2024-07-30] MEDS ORDERED: NALOXONE 0.4 MG/ML 1 ML VIAL IV PRN (10:05)
[2024-07-30] MEDS ORDERED: IBUPROFEN 400 MG TAB PO PRN (10:05)
[2024-07-30] MEDS: MEROPENEM 1 GM in SODIUM CHLORIDE 0.9% 100 ML IVPB ONE (10:36)
--- NOTE | 2024-07-30 10:45 | CT ---
EXAMINATION TYPE: CT abdomen pelvis w con DATE OF EXAM: 07/30/2024 10:26 AM COMPARISON: 03/23/2020 06/20/2023 CLINICAL INDICATION: Female, 54 years old with history of abp; abdominal pain. poss UTI vs Sepsis TECHNIQUE: Axial CT abdomen pelvis w con;Sagittal and coronal reformats were created on a separate w orkstation. Contrast used:100 ml mL of Isovue 300 with IV Contrast, (none if empty) Oral contrast used: without Oral Contrast (none if empty) CT DLP: 2944.4 mGycm, Automated exposure control for dose reduction was used. FINDINGS: LOWER CHEST: The heart is moderately enlarged for size. Dilated vessels along the abdominal wall. ABDOMEN LIVER: Diffusely hypoattenuating parenchyma. GALLBLADDER AND BILE DUCTS: Unremarkable. PANCREAS: Unremarkable. SPLEEN: Unremarkable. ADRENAL GLANDS: Unremarkable. KIDNEYS AND URETERS: No evidence of hydronephrosis or obstructing renal calculus. The ureters are unr emarkable. Nonobstructing bilateral renal calculi measuring up to 12 mm on the right and 11 mm on t he left. PELVIS BLADDER: Chaves catheter in place with some Fat stranding surrounding the urinary bladder grey.. REPRODUCTIVE: Unremarkable. ABDOMEN & PELVIS STOMACH AND BOWEL: No evidence of bowel obstruction. Rectal wall thickening of the rectum/anus up to 11 mm. Additionally there is some circumferential wall thickening of the rectum which is distended wi th large amount stool up to 5 mm. Large stool burden just proximal. PERITONEUM/RETROPERITONEUM: No evidence of pneumoperitoneum or free fluid. VASCULATURE: No evidence of aortic aneurysm. There is something of the vasculature up along the super ficial vessels of the anterior abdomen. The IVC is very small in caliber. MUSCULOSKELETAL: No acute osseous abnormalities. Moderate disc degeneration changes are present throu ghout the thoracolumbar spine. Degeneration changes of the hips with joint space narrowing osteophyte formation. LYMPH NODES: No gross evidence for lymphadenopathy. SOFT TISSUE/ABDOMINAL WALL: Unremarkable IMPRESSION: 1. Inflammation around the urinary bladder with Chaves catheter in place correlate with urinalysis fo r cystitis. 2. 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 3. Colitis/proctitis involving the sigmoid colon and rectum with large stool burden in the colon. 4. Bilateral nonobstructing renal calculi. 5. Hepatic steatosis. [facility], , 07/30/2024 10:43 AM
[2024-07-30] MEDS: MEROPENEM 1 GM in SODIUM CHLORIDE 0.9% 100 ML IVPB SCH (17:08)
--- NOTE | 2024-07-30 17:54 | P.HPIM ---
History of Present Illness H&P Date: 07/30/24 Chief Complaint: Weakness 54-year-old female, history of MS, hyperlipidemia, hypothyroidism, GERD/gastritis, present to the emergency department with concerns for fever. Patient states she did not feel well since this morning. Patient has underlying MS. Patient also has history of UTI with sepsis. Patient has known sacral wound. Patient has been having some abdominal discomfort. Blood work reveals WBC of 12.75, hemoglobin of 12.4 and platelet count of 317, sodium 140, potassium 4.7, BUN/creatinine of 18/0.80 and blood glucose of 204, lactic acid of 3.4 So that this is viral screen is negative UA is positive for large amount of blood, nitrates, leukocyte esterase, WBCs and RBCs and many bacteria Chest x-ray is negative for any acute pulmonary process -CT abdomen pelvis shows thickened bladder. Colitis of sigmoid colon with large stool burden. 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 Review of Systems REVIEW OF SYSTEMS: CONSTITUTIONAL: No fever, no malaise, no fatigue. HEENT: No recent visual problems or hearing problems. Denied any sore throat. CARDIOVASCULAR: No chest pain, orthopnea, PND, no palpitations, no syncope. PULMONARY: No shortness of breath, no cough, no hemoptysis. GASTROINTESTINAL: No diarrhea, no nausea, no vomiting, no abdominal pain. NEUROLOGICAL: No headaches, no weakness, no numbness. HEMATOLOGICAL: Denies any bleeding or petechiae. GENITOURINARY: Denies any burning micturition, frequency, or urgency. MUSCULOSKELETAL/RHEUMATOLOGICAL: Denies any joint pain, swelling, or any muscle pain. ENDOCRINE: Denies any polyuria or polydipsia. The rest of the 14-point review of systems is negative. Past Medical History Past Medical History: Hyperlipidemia, Musculoskeletal Disorder, Neurologic Disorder, Pneumonia, Renal Disease, Skin Disorder Additional Past Medical History / Comment(s): Multiple sclerosis stage IV- wheelchair bound, L side weaker than right, past renal failure with hemodialysis-last time was July 2016, neurogenic bladder with indwelling austin, past sepsis, iron deficiency anemia, wounds present on bilateral gluteal folds and sacral area History of Any Multi-Drug Resistant Organisms: ESBL, MRSA, VRE Date of last positivie culture/infection: 02/20/24 ESBL; 06/19/23 MRSA; 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 MDRO Source:: ESBL - blood, urine; MRSA - blood; VRE - urine Past Surgical History: No Surgical Hx Reported Additional Past Surgical History / Comment(s): LP, debridement decubitus sacral ulcer, hemodialysis cath since removed, picc lines Past Anesthesia/Blood Transfusion Reactions: No Reported Reaction Additional Past Anesthesia/Blood Transfusion Reaction / Comment(s): NEVER HAD ANY GENERAL ANES Past Psychological History: No Psychological Hx Reported Smoking Status: Never smoker Past Alcohol Use History: None Reported Past Drug Use History: None Reported - Past Family History Father History Unknown: Yes Additional Family Medical History / Comment(s): PTS DAD LIVED IN [place]- SHE'S NOT SURE WHAT HE FROM. HE HAD HYPOTENSION. Mother Family Medical History: Coronary Artery Disease (CAD), Diabetes Mellitus, Hyperlipidemia, Hypertension Additional Family Medical History / Comment(s): CARDIAC STENTS Medications and Allergies Home Medications Medication Instructions Recorded Confirmed Type Potassium Chloride ER [K-Dur 20] 20 meq PO BID 01/12/19 07/30/24 History Aspirin 81 mg PO HS 09/15/19 07/30/24 History Sennosides [Senna] 8.6 mg PO BID 01/31/20 07/30/24 History Atorvastatin [Lipitor] 10 mg PO HS 09/22/21 07/30/24 History Diroximel Fumarate [Vumerity] 462 mg PO Q12HR@0700,1900 09/22/21 07/30/24 History Levothyroxine Sodium [Synthroid] 75 mcg PO DAILY@0500 09/22/21 07/30/24 History Ascorbic Acid [Vitamin C] 500 mg PO HS 05/14/22 07/30/24 History Baclofen 10 mg PO TID@0700,1300,1900 12/22/22 07/30/24 History Folic Acid 0.4 mg PO BID 06/19/23 07/30/24 History Naloxone HCl 0.4 mg IM DIRECTED PRN 06/19/23 07/30/24 History Esomeprazole Magnesium [NexIUM] 20 mg PO DAILY 09/24/23 07/30/24 History Multivit-Min/FA/Lycopen/Lutein 1 tab PO HS 02/20/24 07/30/24 History [Centrum Silver Tablet] Amino Acids/Protein Hydrolys 30 ml PO DAILY 03/22/24 07/30/24 History [Pro-Stat Awc Liquid] Icy Hot External Patch 5% 1 patch TOPICAL DAILY 03/22/24 07/30/24 History HYDROcodone/APAP 7.5-325MG [[place] 1 tab PO QID@07,13,19,23 #12 tab 03/24/24 07/30/24 Rx 7.5-325] Acetaminophen Tab [Tylenol Tab] 500 mg PO TID PRN 07/30/24 07/30/24 History Furosemide [Lasix] 40 mg PO DAILY 07/30/24 07/30/24 History Gabapentin [Neurontin] 300 mg PO TID@0700,1300,1900 07/30/24 07/30/24 History Naloxone HCl [Narcan] 4 mg NASAL DIRECTED PRN 07/30/24 07/30/24 History Nitrofurantoin Macrocrystal 50 mg PO Q2D@0700 07/30/24 07/30/24 History [Macrodantin] Allergies Allergy/AdvReac Type Severity Reaction Status Date / Time adhesive tape Allergy Rash/Hives Verified 07/30/24 11:36 cinnamon Allergy Rash/Hives Verified 07/30/24 11:36 Physical Exam Vitals: Vital Signs Temp Pulse Resp BP Pulse Ox 07/30/24 09:40 102.8 F H 137 H 24 125/57 96 07/30/24 08:22 103.8 F H 142 H 24 147/83 93 L Intake and Output 07/29/24 07/30/24 07/30/24 22:59 06:59 14:59 Other: Weight 111.13 kg General appearance: alert, in no apparent distress Head exam: Present: normocephalic Eye exam: Present: PERRL, other (Disconjugate gaze) Neck exam: Present: normal inspection. Absent: tenderness, meningismus Respiratory exam: Present: normal lung sounds bilaterally Cardiovascular Exam: Present: tachycardia GI/Abdominal exam: Present: tenderness (Mild diffuse tenderness) Extremities exam: Present: normal inspection Neurological exam: Present: alert Psychiatric exam: Present: normal affect, normal mood Skin exam: Present: other (Bilateral anterior lower legs with mild erythema consistent with chronic cellulitis. Patient does have large sacral wound that appears mostly chronic however does have some stool in it. Patient also has left gluteal wound at least stage III) Results CBC & Chem 7: 07/30/24 08:41 07/30/24 08:41 Labs: Abnormal Lab Results - Last 24 Hours (Table) 07/30/24 07/30/24 07/30/24 Range/Units 08:41 08:41 08:41 WBC 12.75 H (4.50-10.00) 10*3/uL Immature Gran # 0.06 H (0.00-0.04) 10*3/uL Neutrophils # 11.65 H (1.80-7.70) 10*3/uL Lymphocytes # 0.56 L (0.90-5.00) 10*3/uL BUN 18 H (7-17) mg/dL Glucose 204 H (74-99) mg/dL Plasma Lactic Acid Armando (0.7-2.0) mmol/L Urine Appearance Turbid H (Clear) Urine Protein 2+ H (Negative) Urine Blood Large H (Negative) Urine Nitrite Positive H (Negative) Ur Leukocyte Esterase Large H (Negative) Urine RBC >182 H (0-5) /hpf Urine WBC >182 H (0-5) /hpf Urine WBC Clumps Many H (None) /hpf Urine Bacteria Occasional H (None) /hpf 07/30/24 Range/Units 08:41 WBC (4.50-10.00) 10*3/uL Immature Gran # (0.00-0.04) 10*3/uL Neutrophils # (1.80-7.70) 10*3/uL Lymphocytes # (0.90-5.00) 10*3/uL BUN (7-17) mg/dL Glucose (74-99) mg/dL Plasma Lactic Acid Armando 3.4 H* (0.7-2.0) mmol/L Urine Appearance (Clear) Urine Protein (Negative) Urine Blood (Negative) Urine Nitrite (Negative) Ur Leukocyte Esterase (Negative) Urine RBC (0-5) /hpf Urine WBC (0-5) /hpf Urine WBC Clumps (None) /hpf Urine Bacteria (None) /hpf Assessment and Plan Assessment: 1. UTI/sepsis - is positive for WBCs, leukocyte esterase, nitrites and bacteria - Patient has been placed on IV antibiotics in form of cefepime 1 g IV every 8 hours - ID is consulted 2. Lactic acidosis; uric acid level of 3.4 in ER; likely related to UTI and sepsis; patient did receive IV fluid boluses in ED - Trend lactic acid levels 3. Infected sacral decubitus ulcer/cellulitis; patient remains on IV cefepime - Wound care consult in place - ID on board 4. Hyperlipidemia; Lipitor 10 mg daily 5. Hypothyroidism; levothyroxine 75 mcg daily 6. Chronic pain; patient takes [place], Neurontin and baclofen DVT prophylaxis; SCDs CODE STATUS; full code
[2024-07-31 06:39] LABS: Basophils # (A) 0.04 10*3/uL (0.00-0.10); Basophils % (A) 0.4 %; Eosinophils # (A) 0.03 10*3/uL (0.04-0.35); Eosinophils % (A) 0.3 %; HGB 11.4 g/dL (12.0-15.0); Lymphocytes # (A) 0.45 10*3/uL (0.90-5.00); Lymphocytes % (A) 4.1 %; MCHC 31.7 g/dL (32.0-37.0); MCV 85.1 fL (80.0-97.0); Mean Platelet Volume 9.6 fL (9.5-12.2); Monocytes # (A) 0.31 10*3/uL (0.20-1.00); Monocytes % (A) 2.8 %; Neutrophils % (A) 91.9 %; Platelet Count 276 10*3/uL (140-440); RBC 4.23 10*6/uL (4.10-5.20); RDW 16.8 % (11.5-14.5); WBC 10.88 10*3/uL (4.50-10.00)
[2024-07-31 07:00] LABS: ALT 36 U/L (4-34); AST 33 U/L (14-36); African American GFR (CKD) >90 (>60 ml/min/1.73 sqM); Albumin 3.4 g/dL (3.5-5.0); Alkaline Phosphatase 90 U/L (38-126); Anion Gap 12 mmol/L; Blood Urea Nitrogen 18 mg/dL (7-17); Calcium 9.7 mg/dL (8.4-10.2); Carbon Dioxide 26 mmol/L (22-30); Chloride 102 mmol/L (98-107); Glucose 148 mg/dL (74-99); Non-African American GFR(CKD) >90 (>60 ml/min/1.73 sqM); Potassium 3.8 mmol/L (3.5-5.1); Sodium 140 mmol/L (137-145)
--- NOTE | 2024-07-31 07:25 | P.CONS ---
History of Present Illness - Reason for Consult Consult date: 07/30/24 Sepsis Requesting physician: Jairo Merida - Chief Complaint Fever x 1 day - History of Present Illness Patient is a 54-year-old female with a past medical history s ignificant for MS hyperlipidemia bedbound state chronic indwelling Austin catheter for retention and history of multiple pressure ulcer patient has been to hospital concerning for fever that apparently started the morning of presentation to the hospital patient was complaining some abdominal discomfort to the ER physician patient did not have any headache or URI symptoms she is breathing comfortably on the no chest pain shortness of breath or cough some lower abdominal/suprapubic discomfort did have a chronic draining catheter not really clear when it was changed last and did not have any diarrhea he denies having any worsening wound or drainage on presentation to the hospital she did have a fever of 103.8 F patient was tachycardic but not hypotensive or hypoxic no need for supplemental oxygen she did have a white count of 12.75 with a left shift creatinine 0.80 lactic acid was 2.8 urine has been positive for fluids RSV COVID testing was negative chest x-ray low lung volumes with generalized hazy appearance abdominal pelvis CT inflammation around the bladder with Austin catheter in place 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 with large stool burden patient was empirically started on meropenem on the basis of previous culture infectious disease was consulted for further management of antibiotic therapy Review of Systems Positive point and negatives has been mentioned in the HPI, complete review of systems was performed and all other systems are negative Past Medical History Past Medical History: Hyperlipidemia, Musculoskeletal Disorder, Neurologic Disorder, Pneumonia, Renal Disease, Skin Disorder Additional Past Medical History / Comment(s): Multiple sclerosis stage IV- wheelchair bound, L side weaker than right, past renal failure with hemodialysis-last time was July 2016, neurogenic bladder with indwelling austin, past sepsis, iron deficiency anemia, wounds present on bilateral gluteal folds and sacral area History of Any Multi-Drug Resistant Organisms: ESBL, MRSA, VRE Year Discovered:: 02/20/24 ESBL; 06/19/23 MRSA; 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 MDRO Source:: ESBL - blood, urine; MRSA - blood; VRE - urine Past Surgical History: No Surgical Hx Reported Additional Past Surgical History / Comment(s): LP, debridement decubitus sacral ulcer, hemodialysis cath since removed, picc lines Past Anesthesia/Blood Transfusion Reactions: No Reported Reaction Additional Past Anesthesia/Blood Transfusion Reaction / Comm: NEVER HAD ANY GENERAL ANES Past Psychological History: No Psychological Hx Reported Additional Psychological History / Comment(s): Pt resides at [facility]. She states she is mostly wheelchair bound-sit to stand device to chair. She has an IDC. Pt feeds herself. Smoking Status: Never smoker Past Alcohol Use History: None Reported Additional Past Alcohol Use History / Comment(s): Patient is a lifelong nonsmoker. She denies any alcohol abuse. Past Drug Use History: None Reported - Past Family History Father History Unknown: Yes Additional Family Medical History / Comment(s): PTS DAD LIVED IN [place]- SHE'S NOT SURE WHAT HE FROM. HE HAD HYPOTENSION. Mother Family Medical History: Coronary Artery Disease (CAD), Diabetes Mellitus, Hyperlipidemia, Hypertension Additional Family Medical History / Comment(s): CARDIAC STENTS Medications and Allergies Home Medications Medication Instructions Recorded Confirmed Type Potassium Chloride ER [K-Dur 20] 20 meq PO BID 01/12/19 07/30/24 History Aspirin 81 mg PO HS 09/15/19 07/30/24 History Sennosides [Senna] 8.6 mg PO BID 01/31/20 07/30/24 History Atorvastatin [Lipitor] 10 mg PO HS 09/22/21 07/30/24 History Diroximel Fumarate [Vumerity] 462 mg PO Q12HR@0700,1900 09/22/21 07/30/24 History Levothyroxine Sodium [Synthroid] 75 mcg PO DAILY@0500 09/22/21 07/30/24 History Ascorbic Acid [Vitamin C] 500 mg PO HS 05/14/22 07/30/24 History Baclofen 10 mg PO TID@0700,1300,1900 12/22/22 07/30/24 History Folic Acid 0.4 mg PO BID 06/19/23 07/30/24 History Naloxone HCl 0.4 mg IM DIRECTED PRN 06/19/23 07/30/24 History Esomeprazole Magnesium [NexIUM] 20 mg PO DAILY 09/24/23 07/30/24 History Multivit-Min/FA/Lycopen/Lutein 1 tab PO HS 02/20/24 07/30/24 History [Centrum Silver Tablet] Amino Acids/Protein Hydrolys 30 ml PO DAILY 03/22/24 07/30/24 History [Pro-Stat Awc Liquid] Icy Hot External Patch 5% 1 patch TOPICAL DAILY 03/22/24 07/30/24 History HYDROcodone/APAP 7.5-325MG [[place] 1 tab PO QID@07,13,19,23 #12 tab 03/24/24 07/30/24 Rx 7.5-325] Acetaminophen Tab [Tylenol Tab] 500 mg PO TID PRN 07/30/24 07/30/24 History Furosemide [Lasix] 40 mg PO DAILY 07/30/24 07/30/24 History Gabapentin [Neurontin] 300 mg PO TID@0700,1300,1900 07/30/24 07/30/24 History Naloxone HCl [Narcan] 4 mg NASAL DIRECTED PRN 07/30/24 07/30/24 History Nitrofurantoin Macrocrystal 50 mg PO Q2D@0700 07/30/24 07/30/24 History [Macrodantin] Allergies Allergy/AdvReac Type Severity Reaction Status Date / Time adhesive tape Allergy Rash/Hives Verified 07/30/24 11:36 cinnamon Allergy Rash/Hives Verified 07/30/24 11:36 Physical Exam Vitals: Vital Signs Temp Pulse Pulse Resp BP BP Pulse Ox 07/30/24 16:09 98.7 F 119 H 20 109/65 96 07/30/24 12:06 99.7 F H 130 H 24 118/67 97 07/30/24 11:34 100.5 F H 137 H 20 103/54 95 07/30/24 10:34 134 H 20 123/56 95 07/30/24 09:40 102.8 F H 137 H 24 125/57 96 07/30/24 08:22 103.8 F H 142 H 24 147/83 93 L Intake and Output 07/30/24 07/30/24 07/30/24 06:59 14:59 22:59 Other: Voiding Method Indwelling Catheter Weight 111.13 kg GENERAL DESCRIPTION: Middle-age female lying in bed, no distress. No tachypnea or accessory muscle of respiration use. HEENT: Shows Pallor , no scleral icterus. Oral mucous membrane is dry. NECK: Trachea central, no thyromegaly. LUNGS: Unlabored breathing. Clear to auscultation anteriorly. No wheeze or crackle. HEART: S1, S2, regular rate and rhythm. No loud murmur ABDOMEN: Soft, no tenderness , EXTREMITIES: Bilateral lower extremity swelling with some erythema to the left leg SKIN: No rash, no masses palpable. NEUROLOGICAL: The patient is awake, alert, oriented x3, mood and affect normal. Results CBC & Chem 7: 07/31/24 06:11 07/31/24 06:11 Labs: Abnormal Lab Results - Last 24 Hours (Table) 07/30/24 07/30/24 07/30/24 Range/Units 08:41 08:41 08:41 WBC 12.75 H (4.50-10.00) 10*3/uL Immature Gran # 0.06 H (0.00-0.04) 10*3/uL Neutrophils # 11.65 H (1.80-7.70) 10*3/uL Lymphocytes # 0.56 L (0.90-5.00) 10*3/uL BUN 18 H (7-17) mg/dL Glucose 204 H (74-99) mg/dL Plasma Lactic Acid Armando (0.7-2.0) mmol/L Urine Appearance Turbid H (Clear) Urine Protein 2+ H (Negative) Urine Blood Large H (Negative) Urine Nitrite Positive H (Negative) Ur Leukocyte Esterase Large H (Negative) Urine RBC >182 H (0-5) /hpf Urine WBC >182 H (0-5) /hpf Urine WBC Clumps Many H (None) /hpf Urine Bacteria Occasional H (None) /hpf 07/30/24 07/30/24 07/30/24 Range/Units 08:41 12:17 15:04 WBC (4.50-10.00) 10*3/uL Immature Gran # (0.00-0.04) 10*3/uL Neutrophils # (1.80-7.70) 10*3/uL Lymphocytes # (0.90-5.00) 10*3/uL BUN (7-17) mg/dL Glucose (74-99) mg/dL Plasma Lactic Acid Armando 3.4 H* 3.7 H* 3.1 H* (0.7-2.0) mmol/L Urine Appearance (Clear) Urine Protein (Negative) Urine Blood (Negative) Urine Nitrite (Negative) Ur Leukocyte Esterase (Negative) Urine RBC (0-5) /hpf Urine WBC (0-5) /hpf Urine WBC Clumps (None) /hpf Urine Bacteria (None) /hpf Assessment and Plan (1) Catheter-associated urinary tract infection Current Visit: No Status: Acute Code(s): T83.511A - I/I REACT D/T INDWELLING URETHRAL CATHETER, INIT; N39.0 - URINARY TRACT INFECTION, SITE NOT SPECIFIED SNOMED Code(s): 147304846 (2) Sepsis Current Visit: No Status: Acute Code(s): A41.9 - SEPSIS, UNSPECIFIED ORGANISM SNOMED Code(s): 17356266 Plan: 1patient presented to hospital with sepsis in this patient who did have fever tachycardia elevated white count elevated lactic acid meeting criteria for SIRS/sepsis source likely catheter versus UTI likely from enteric gram-negative pathogen with a history of ESBL pathogen. 2Foley catheter need to be changed obtain urine culture continue Austin. 3patient empirically treated with the meropenem while waiting for the culture to finalize We will follow on clinical condition and cultures to further adjust medication if needed Thank you for this consultation we will follow the patient along with you Dictation was produced using [employer] dictation software. please excuse any grammatical, word or spelling errors. Time with Patient: Greater than 30
[2024-07-31 13:21] VITALS: BMI 40.7
[2024-07-31] MEDS ORDERED: SENNOSIDES 8.6 MG TAB PO PRN (14:41)
[2024-07-31] MEDS: FUROSEMIDE 40 MG TAB PO SCH (15:57)
[2024-07-31] MEDS: HEPARIN SODIUM,PORCINE 5,000 UNIT/ML 1 ML VIAL SQ SCH (15:57)
[2024-07-31] MEDS: LEVOTHYROXINE 75 MCG TAB PO SCH (15:57)
[2024-07-31] MEDS: GABAPENTIN 300 MG CAP PO SCH (18:17)
[2024-07-31] MEDS: ASPIRIN 81 MG PO SCH (21:02)
[2024-07-31] MEDS: ATORVASTATIN 10 MG TAB PO SCH (21:02)
[2024-07-31] MEDS: FOLIC ACID 1 MG TAB PO SCH (21:02)
[2024-07-31] MEDS: POTASSIUM CHLORIDE ER 20 MEQ TAB.ER PO SCH (21:02)
[2024-08-01] MEDS: HYDROcodone/APAP 7.5-325MG 1 EACH TAB PO PRN (00:15)
[2024-08-01 06:44] LABS: Basophils # (A) 0.03 10*3/uL (0.00-0.10); Basophils % (A) 0.5 %; Eosinophils # (A) 0.19 10*3/uL (0.04-0.35); HCT 34.9 % (37.2-46.3); Lymphocytes % (A) 12.6 %; MCH 26.8 pg (27.0-32.0); MCHC 31.5 g/dL (32.0-37.0); MCV 85.1 fL (80.0-97.0); Mean Platelet Volume 9.7 fL (9.5-12.2); Monocytes # (A) 0.47 10*3/uL (0.20-1.00); Monocytes % (A) 7.4 %; Neutrophils # (A) 4.81 10*3/uL (1.80-7.70); Platelet Count 284 10*3/uL (140-440); RDW 16.8 % (11.5-14.5); WBC 6.33 10*3/uL (4.50-10.00)
[2024-08-01 07:03] LABS: African American GFR (CKD) >90 (>60 ml/min/1.73 sqM); Anion Gap 6 mmol/L; Blood Urea Nitrogen 20 mg/dL (7-17); Calcium 9.3 mg/dL (8.4-10.2); Carbon Dioxide 31 mmol/L (22-30); Chloride 102 mmol/L (98-107); Glucose 122 mg/dL (74-99); Non-African American GFR(CKD) >90 (>60 ml/min/1.73 sqM); Potassium 3.3 mmol/L (3.5-5.1); Sodium 139 mmol/L (137-145)
[2024-08-01] MEDS: PANTOPRAZOLE 40 MG TABLET PO SCH (07:59)
[2024-08-01] MEDS: ACETAMINOPHEN TAB 325 MG TAB PO PRN (16:17)
--- NOTE | 2024-08-01 16:24 | P.PN ---
Subjective Progress Note Date: 07/31/24 Principal diagnosis: Reason for follow-up is pyelonephritis Patient is a 54-year-old female with a past medical history significant for MS hyperlipidemia bedbound state chronic indwelling Chaves catheter for retention and history of multiple pressure ulcer patient has been to hospital concerning for fever and has been diagnosed with pyelonephritis prompting this consultation. On today's evaluation that is 07/31/2024,the patient did have resolution of her fever and is afebrile today, patient is on room air not requiring supplemental oxygen and denies any shortness of breath no chest pain or cough.Patient denies having any nausea or vomiting, no abdominal pain and no diarrhea has been reported Patient white count is around 10.88, creatinine 0.66 urine is growing gram- negative Objective - Vital Signs Vital signs: Vital Signs Temp 99.2 F 07/31/24 15:59 Pulse 110 H 07/31/24 15:59 Resp 18 07/31/24 15:59 BP 148/85 07/31/24 15:59 Pulse Ox 99 07/31/24 15:59 FiO2 Intake & Output 07/31/24 07/31/24 08/01/24 06:59 18:59 06:59 Intake Total 770 250 Output Total 900 2450 Balance -130 -2200 Weight 111 kg 111 kg Intake: IV 10 Invasive Line 1 10 Intake, IV Titration 650 Amount Lactated Ringers 1,000 ml 650 @ 130 mls/hr IV .[id number] [facility] Rx#:[id number] Oral 120 240 Output: Urine 900 2450 Other: Voiding Method Indwelling Catheter Indwelling Catheter # Bowel Movements 1 - Exam GENERAL DESCRIPTION: Middle-age female lying in bed in no distress RESPIRATORY SYSTEM: Unlabored breathing , decreased breath sounds at bases HEART: S1 S2 regular rate and rhythm , ABDOMEN: Soft , no tenderness EXTREMITIES: Swelling to the leg no significant redness - Labs CBC & Chem 7: 08/01/24 06:14 08/01/24 06:14 Labs: Abnormal Lab Results - Last 24 Hours (Table) 07/30/24 07/31/24 07/31/24 Range/Units 21:47 06:11 06:11 WBC 10.88 H (4.50-10.00) 10*3/uL Hgb 11.4 L (12.0-15.0) g/dL Hct 36.0 L (37.2-46.3) % MCHC 31.7 L (32.0-37.0) g/dL Immature Gran # 0.05 H (0.00-0.04) 10*3/uL Neutrophils # 10.00 H (1.80-7.70) 10*3/uL Lymphocytes # 0.45 L (0.90-5.00) 10*3/uL Eosinophils # 0.03 L (0.04-0.35) 10*3/uL BUN 18 H (7-17) mg/dL Glucose 148 H (74-99) mg/dL Plasma Lactic Acid Armando 2.8 H* (0.7-2.0) mmol/L ALT 36 H (4-34) U/L Total Protein 6.0 L (6.3-8.2) g/dL Albumin 3.4 L (3.5-5.0) g/dL Microbiology - Last 24 Hours (Table) 07/30/24 08:41 Blood Culture - Preliminary Blood 07/30/24 08:41 Urine Culture - Preliminary Urine,Voided Gram Neg Bacilli Assessment and Plan (1) Catheter-associated urinary tract infection Current Visit: No Status: Acute Code(s): T83.511A - I/I REACT D/T INDWELLING URETHRAL CATHETER, INIT; N39.0 - URINARY TRACT INFECTION, SITE NOT SPECIFIED SNOMED Code(s): 724572824 (2) Sepsis Current Visit: No Status: Acute Code(s): A41.9 - SEPSIS, UNSPECIFIED ORGANISM SNOMED Code(s): 96286878 Plan: 1patient presented to hospital with sepsis in this patient who did have fever tachycardia elevated white count elevated lactic acid meeting criteria for SIRS/sepsis source likely catheter versus UTI likely from enteric gram-negative pathogen with a history of ESBL pathogen. 2patient did have improvement in fever pattern and white count is trending down continue with the meropenem while waiting for the culture to finalize Dictation was produced using [employer] dictation software. please excuse any grammatical, word or spelling errors. Time with Patient: Less than 30
--- NOTE | 2024-08-01 16:25 | P.PN ---
Subjective Progress Note Date: 08/01/24 Principal diagnosis: Reason for follow-up is pyelonephritis Patient is a 54-year-old female with a past medical history significant for MS hyperlipidemia bedbound state chronic indwelling Chaves catheter for retention and history of multiple pressure ulcer patient has been to hospital concerning for fever and has been diagnosed with pyelonephritis prompting this consultation. On today's evaluation that is 08/01/2024, the patient continues to be afebrile, the patient is on room air and breathing comfortably, the Pt denies having any chest pain or cough, the patient denies having any abdominal pain no vomiting or any diarrhea has been reported by the nursing staff. Patient white count normalized to 6.33, creatinine 0.69, urine with ESBL E. coli blood culture negative Objective - Vital Signs Vital signs: Vital Signs Temp 98.8 F 08/01/24 07:55 Pulse 99 08/01/24 07:55 Resp 18 08/01/24 07:55 BP 137/81 08/01/24 07:55 Pulse Ox 93 L 08/01/24 07:55 FiO2 Intake & Output 07/31/24 08/01/24 08/01/24 18:59 06:59 18:59 Intake Total 250 20 260 Output Total 2450 1000 Balance -2200 -980 260 Weight 111 kg 110 kg Intake: IV 10 20 20 Invasive Line 1 10 20 10 Invasive Line 2 10 Oral 240 240 Output: Urine 2450 1000 Other: Voiding Method Indwelling Catheter Indwelling Catheter Indwelling Catheter # Bowel Movements 1 - Exam GENERAL DESCRIPTION: Middle-age female lying in bed in no distress RESPIRATORY SYSTEM: Unlabored breathing , decreased breath sounds at bases HEART: S1 S2 regular rate and rhythm , ABDOMEN: Soft , no tenderness EXTREMITIES: Swelling to the leg no significant redness - Labs CBC & Chem 7: 08/01/24 06:14 08/01/24 06:14 Labs: Abnormal Lab Results - Last 24 Hours (Table) 08/01/24 08/01/24 Range/Units 06:14 06:14 Hgb 11.0 L (12.0-15.0) g/dL Hct 34.9 L (37.2-46.3) % MCH 26.8 L (27.0-32.0) pg MCHC 31.5 L (32.0-37.0) g/dL Lymphocytes # 0.80 L (0.90-5.00) 10*3/uL Potassium 3.3 L (3.5-5.1) mmol/L Carbon Dioxide 31 H (22-30) mmol/L BUN 20 H (7-17) mg/dL Glucose 122 H (74-99) mg/dL Microbiology - Last 24 Hours (Table) 07/30/24 08:41 Urine Culture - Final Urine,Voided Escherichia coli ESBL 07/30/24 08:41 Blood Culture - Preliminary Blood Assessment and Plan (1) Catheter-associated urinary tract infection Current Visit: No Status: Acute Code(s): T83.511A - I/I REACT D/T INDWELLING URETHRAL CATHETER, INIT; N39.0 - URINARY TRACT INFECTION, SITE NOT SPECIFIED SNOMED Code(s): 352580219 (2) Sepsis Current Visit: No Status: Acute Code(s): A41.9 - SEPSIS, UNSPECIFIED ORGANISM SNOMED Code(s): 30638215 Plan: 1patient presented to hospital with sepsis in this patient who did have fever tachycardia elevated white count elevated lactic acid meeting criteria for SIRS/sepsis source likely catheter versus UTI likely from enteric gram-negative pathogen with a history of ESBL pathogen. 2-urine culture with ESBL E. coli blood culture negative 3patient did have improvement in fever pattern and white count has normalized 4-patient to continue the meropenem she will need a midline for outpatient IV Invanz Dictation was produced using [employer] dictation software. please excuse any grammatical, word or spelling errors. Time with Patient: Less than 30
[2024-08-02 06:58] LABS: Basophils # (A) 0.04 10*3/uL (0.00-0.10); Basophils % (A) 1.1 %; Eosinophils # (A) 0.14 10*3/uL (0.04-0.35); Eosinophils % (A) 3.9 %; HCT 33.4 % (37.2-46.3); HGB 10.4 g/dL (12.0-15.0); Lymphocytes # (A) 0.77 10*3/uL (0.90-5.00); Lymphocytes % (A) 21.4 %; MCH 26.9 pg (27.0-32.0); MCHC 31.1 g/dL (32.0-37.0); MCV 86.3 fL (80.0-97.0); Mean Platelet Volume 9.8 fL (9.5-12.2); Monocytes # (A) 0.29 10*3/uL (0.20-1.00); Monocytes % (A) 8.1 %; Neutrophils # (A) 2.32 10*3/uL (1.80-7.70); Neutrophils % (A) 64.7 %; Platelet Count 266 10*3/uL (140-440); RBC 3.87 10*6/uL (4.10-5.20); RDW 16.7 % (11.5-14.5); WBC 3.59 10*3/uL (4.50-10.00)
[2024-08-02 07:17] LABS: African American GFR (CKD) >90 (>60 ml/min/1.73 sqM); Anion Gap 9 mmol/L; Blood Urea Nitrogen 23 mg/dL (7-17); Calcium 9.2 mg/dL (8.4-10.2); Carbon Dioxide 27 mmol/L (22-30); Chloride 101 mmol/L (98-107); Glucose 124 mg/dL (74-99); Non-African American GFR(CKD) >90 (>60 ml/min/1.73 sqM); Sodium 137 mmol/L (137-145)
--- NOTE | 2024-08-02 10:06 | P.CONS ---
History of Present Illness - Reason for Consult Consult date: 08/02/24 wound care - History of Present Illness This is a 54-year-old patient with past medical history significant significant for multiple sclerosis she is a resident of [facility]. Patient had chronic pressure ulcers to the left and right buttocks and coccyx. At this time all ulcerations are epithelialized except the left buttocks that measures approximately 0.4 x 0.3 x 0.2 cm it is a stage II pressure ulcer at this time. Patient does have deformities and scar tissue present due to the chronic previous pressure ulcerations. Review Of Systems: Constitutional: No fever, no chills, no night sweats. No weight change. No weakness, fatigue or lethargy. No daytime sleepiness. Integumentary:reports wounds, no lesions. No rash or pruritus. No unusual bruising. No change in hair or nails. Physical exam: General Appearance: Alert, cooperative, no distress, appears stated age. Skin: See HPI all other Skin color, texture, tugor normal, no rashes or lesions. Neurologic: Alert oriented x3 Assessment: 1. Stage II pressure ulcer left buttocks 2. MS Plan: 1. Apply honey gel and bordered foam. Change Wednesday. Turn patient every 2 hours. Utilize a air-filled cushions while sitting. Thank you for the consultation any questions please contact the wound care center DNP note has been reviewed and discussed with Dr. Rees and the impression and plan of care has been directed as dictated. 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 She states she is mostly wheelchair bound-sit to stand device to chair. She has an IDC. Pt feeds herself. Smoking Status: Never smoker Past Alcohol Use History: None Reported Additional Past Alcohol Use History / Comment(s): Patient is a lifelong nonsmoker. She denies any alcohol abuse. Past Drug Use History: None Reported - Past Family History Father History Unknown: Yes Additional Family Medical History / Comment(s): PTS DAD LIVED IN [place]- SHE'S NOT SURE WHAT HE FROM. HE HAD HYPOTENSION. Mother Family Medical History: Coronary Artery Disease (CAD), Diabetes Mellitus, Hyperlipidemia, Hypertension Additional Family Medical History / Comment(s): CARDIAC STENTS Medications and Allergies Home Medications Medication Instructions Recorded Confirmed Type Potassium Chloride ER [K-Dur 20] 20 meq PO BID 01/12/19 07/30/24 History Aspirin 81 mg PO HS 09/15/19 07/30/24 History Sennosides [Senna] 8.6 mg PO BID 01/31/20 07/30/24 History Atorvastatin [Lipitor] 10 mg PO HS 09/22/21 07/30/24 History Diroximel Fumarate [Vumerity] 462 mg PO Q12HR@0700,1900 09/22/21 07/30/24 History Levothyroxine Sodium [Synthroid] 75 mcg PO DAILY@0500 09/22/21 07/30/24 History Ascorbic Acid [Vitamin C] 500 mg PO HS 05/14/22 07/30/24 History Baclofen 10 mg PO TID@0700,1300,1900 12/22/22 07/30/24 History Folic Acid 0.4 mg PO BID 06/19/23 07/30/24 History Naloxone HCl 0.4 mg IM DIRECTED PRN 06/19/23 07/30/24 History Esomeprazole Magnesium [NexIUM] 20 mg PO DAILY 09/24/23 07/30/24 History Multivit-Min/FA/Lycopen/Lutein 1 tab PO HS 02/20/24 07/30/24 History [Centrum Silver Tablet] Amino Acids/Protein Hydrolys 30 ml PO DAILY 03/22/24 07/30/24 History [Pro-Stat Awc Liquid] Icy Hot External Patch 5% 1 patch TOPICAL DAILY 03/22/24 07/30/24 History HYDROcodone/APAP 7.5-325MG [[place] 1 tab PO QID@07,13,19,23 #12 tab 03/24/24 07/30/24 Rx 7.5-325] Acetaminophen Tab [Tylenol Tab] 500 mg PO TID PRN 07/30/24 07/30/24 History Furosemide [Lasix] 40 mg PO DAILY 07/30/24 07/30/24 History Gabapentin [Neurontin] 300 mg PO TID@0700,1300,1900 07/30/24 07/30/24 History Naloxone HCl [Narcan] 4 mg NASAL DIRECTED PRN 07/30/24 07/30/24 History Nitrofurantoin Macrocrystal 50 mg PO Q2D@0700 07/30/24 07/30/24 History [Macrodantin] Allergies Allergy/AdvReac Type Severity Reaction Status Date / Time adhesive tape Allergy Rash/Hives Verified 07/30/24 11:36 cinnamon Allergy Rash/Hives Verified 07/30/24 11:36 Physical Exam Vitals: Vital Signs Temp Pulse Resp BP Pulse Ox 08/02/24 07:45 98.1 F 91 18 128/82 100 08/02/24 04:00 98.2 F 99 17 110/70 95 08/01/24 23:47 101 H 17 116/80 98 08/01/24 20:00 98.5 F 98 17 115/81 96 08/01/24 16:08 98.8 F 105 H 18 136/80 95 08/01/24 13:08 98.1 F 106 H 18 116/70 97 Intake and Output 08/01/24 08/02/24 08/02/24 22:59 06:59 14:59 Intake Total 250 10 540 Output Total 1000 200 Balance -750 -190 540 Intake: IV 10 10 Invasive Line 2 10 10 Oral 240 540 Output: Urine 1000 200 Other: Voiding Method Indwelling Catheter Indwelling Catheter Weight 130.5 kg Results CBC & Chem 7: 08/02/24 06:24 08/02/24 06:24 Labs: Abnormal Lab Results - Last 24 Hours (Table) 08/02/24 08/02/24 Range/Units 06:24 06:24 WBC 3.59 L (4.50-10.00) 10*3/uL RBC 3.87 L (4.10-5.20) 10*6/uL Hgb 10.4 L (12.0-15.0) g/dL Hct 33.4 L (37.2-46.3) % MCH 26.9 L (27.0-32.0) pg MCHC 31.1 L (32.0-37.0) g/dL Lymphocytes # 0.77 L (0.90-5.00) 10*3/uL BUN 23 H (7-17) mg/dL Glucose 124 H (74-99) mg/dL Microbiology - Last 24 Hours (Table) 07/30/24 08:41 Blood Culture - Preliminary Blood 07/30/24 08:41 Urine Culture - Final Urine,Voided Escherichia coli ESBL Assessment and Plan (1) Pressure injury of left buttock, stage 2 Current Visit: No Status: Acute Code(s): L89.322 - PRESSURE ULCER OF LEFT BUTTOCK, STAGE 2 SNOMED Code(s): 68647968373818
[2024-08-03 07:35] LABS: Basophils # (A) 0.03 10*3/uL (0.00-0.10); Basophils % (A) 0.8 %; Eosinophils # (A) 0.13 10*3/uL (0.04-0.35); Eosinophils % (A) 3.7 %; HCT 34.6 % (37.2-46.3); HGB 10.7 g/dL (12.0-15.0); Lymphocytes # (A) 0.72 10*3/uL (0.90-5.00); Lymphocytes % (A) 20.3 %; MCH 26.4 pg (27.0-32.0); MCHC 30.9 g/dL (32.0-37.0); MCV 85.4 fL (80.0-97.0); Mean Platelet Volume 9.6 fL (9.5-12.2); Monocytes # (A) 0.31 10*3/uL (0.20-1.00); Monocytes % (A) 8.8 %; Platelet Count 289 10*3/uL (140-440); RBC 4.05 10*6/uL (4.10-5.20); RDW 16.4 % (11.5-14.5); WBC 3.54 10*3/uL (4.50-10.00)
[2024-08-03 07:55] LABS: African American GFR (CKD) >90 (>60 ml/min/1.73 sqM); Anion Gap 7 mmol/L; Blood Urea Nitrogen 26 mg/dL (7-17); Calcium 9.3 mg/dL (8.4-10.2); Carbon Dioxide 29 mmol/L (22-30); Chloride 101 mmol/L (98-107); Glucose 125 mg/dL (74-99); Non-African American GFR(CKD) >90 (>60 ml/min/1.73 sqM); Potassium 4.1 mmol/L (3.5-5.1); Sodium 137 mmol/L (137-145)
[2024-08-03 11:36] VITALS: RESP 18; TEMP 98.7
--- NOTE | 2024-08-03 13:58 | P.PN ---
Subjective Progress Note Date: 07/31/24 54-year-old female, history of MS, hyperlipidemia, hypothyroidism, GERD/gastritis, present to the emergency department with concerns for fever. Patient states she did not feel well since this morning. Patient has underlying MS. Patient also has history of UTI with sepsis. Patient has known sacral woun d. Patient has been having some abdominal discomfort. Blood work reveals WBC of 12.75, hemoglobin of 12.4 and platelet count of 317, sodium 140, potassium 4.7, BUN/creatinine of 18/0.80 and blood glucose of 204, lactic acid of 3.4 So that this is viral screen is negative UA is positive for large amount of blood, nitrates, leukocyte esterase, WBCs and RBCs and many bacteria Chest x-ray is negative for any acute pulmonary process -CT abdomen pelvis shows thickened bladder. Colitis of sigmoid colon with large stool burden. 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 07/31/2024 Patient is resting in bed. Awake alert and oriented. No complaints of chest pain or shortness of breath. Patient is afebrile. No headache or dizziness. No nausea or vomiting. Patient is on IV antibiotics for urinary tract infection. Urine culture showed gram-negative bacilli. ID is on board. Patient is on cefepime IV. Laboratory data showed WBC 10.8 hemoglobin 11.4 and platelets 276 BUN 18 and creatinine 0.66 and blood sugar 148 and albumin 3.4. Objective - Vital Signs Vital signs: Vital Signs Temp 99.2 F 07/31/24 15:59 Pulse 110 H 07/31/24 15:59 Resp 18 07/31/24 15:59 BP 148/85 07/31/24 15:59 Pulse Ox 99 07/31/24 15:59 FiO2 Intake & Output 07/30/24 07/31/24 07/31/24 18:59 06:59 18:59 Intake Total 980 770 250 Output Total 900 2450 Balance 980 -130 -2200 Weight 111.13 kg 111 kg 111 kg Intake: IV 10 Invasive Line 1 10 Intake, IV Titration 980 650 Amount Lactated Ringers 1,000 ml 780 650 @ 130 mls/hr IV .[id number] [facility] Rx#:[id number] Meropenem 1 gm In Sodium 200 Chloride 0.9% 100 ml @ 33 .333 mls/hr IVPB ONCE ONE Rx#:[id number] Oral 120 240 Output: Urine 900 2450 Other: Voiding Method Indwelling Catheter Indwelling Catheter Indwelling Catheter # Bowel Movements 1 - Exam General appearance: alert, in no apparent distress Head exam: Present: normocephalic Eye exam: Present: PERRL, other (Disconjugate gaze) Neck exam: Present: normal inspection. Absent: tenderness, meningismus Respiratory exam: Present: normal lung sounds bilaterally Cardiovascular Exam: Present: tachycardia GI/Abdominal exam: Present: tenderness (Mild diffuse tenderness) Extremities exam: Present: normal inspection Neurological exam: Present: alert Psychiatric exam: Present: normal affect, normal mood Skin exam: Present: other (Bilateral anterior lower legs with mild erythema consistent with chronic cellulitis. Patient does have large sacral wound that appears mostly chronic however does have some stool in it. Patient also has left gluteal wound at least stage II - Labs CBC & Chem 7: 08/03/24 06:46 08/03/24 06:46 Labs: Abnormal Lab Results - Last 24 Hours (Table) 07/30/24 07/30/24 07/31/24 Range/Units 18:43 21:47 06:11 WBC 10.88 H (4.50-10.00) 10*3/uL Hgb 11.4 L (12.0-15.0) g/dL Hct 36.0 L (37.2-46.3) % MCHC 31.7 L (32.0-37.0) g/dL Immature Gran # 0.05 H (0.00-0.04) 10*3/uL Neutrophils # 10.00 H (1.80-7.70) 10*3/uL Lymphocytes # 0.45 L (0.90-5.00) 10*3/uL Eosinophils # 0.03 L (0.04-0.35) 10*3/uL BUN (7-17) mg/dL Glucose (74-99) mg/dL Plasma Lactic Acid Armando 3.9 H* 2.8 H* (0.7-2.0) mmol/L ALT (4-34) U/L Total Protein (6.3-8.2) g/dL Albumin (3.5-5.0) g/dL 07/31/24 Range/Units 06:11 WBC (4.50-10.00) 10*3/uL Hgb (12.0-15.0) g/dL Hct (37.2-46.3) % MCHC (32.0-37.0) g/dL Immature Gran # (0.00-0.04) 10*3/uL Neutrophils # (1.80-7.70) 10*3/uL Lymphocytes # (0.90-5.00) 10*3/uL Eosinophils # (0.04-0.35) 10*3/uL BUN 18 H (7-17) mg/dL Glucose 148 H (74-99) mg/dL Plasma Lactic Acid Armando (0.7-2.0) mmol/L ALT 36 H (4-34) U/L Total Protein 6.0 L (6.3-8.2) g/dL Albumin 3.4 L (3.5-5.0) g/dL Microbiology - Last 24 Hours (Table) 07/30/24 08:41 Blood Culture - Preliminary Blood 07/30/24 08:41 Urine Culture - Preliminary Urine,Voided Gram Neg Bacilli Assessment and Plan Assessment: 1. UTI/sepsis - is positive for WBCs, leukocyte esterase, nitrites and bacteria - Patient has been placed on IV antibiotics in form of cefepime 1 g IV every 8 hours - ID is consulted. Urine culture showed gram-negative bacilli. 2. Lactic acidosis; uric acid level of 3.4 in ER; likely related to UTI and sepsis; patient did receive IV fluid boluses in ED -Lactic acidosis resolved. Ctic acid resolved. 3. Infected sacral decubitus ulcer/cellulitis; patient remains on IV cefepime - Wound care consult in place - ID on board 4. Hyperlipidemia; Lipitor 10 mg daily 5. Hypothyroidism; levothyroxine 75 mcg daily 6. Chronic pain; patient takes [place], Neurontin and baclofen DVT prophylaxis; SCDs CODE STATUS; full code Time with Patient: Greater than 30
--- NOTE | 2024-08-03 14:00 | P.PN ---
Subjective Progress Note Date: 08/01/24 54-year-old female, history of MS, hyperlipidemia, hypothyroidism, GERD/gastritis, present to the emergency department with concerns for fever. Patient states she did not feel well since this morning. Patient has underlying MS. Patient also has history of UTI with sepsis. Patient has known sacral woun d. Patient has been having some abdominal discomfort. Blood work reveals WBC of 12.75, hemoglobin of 12.4 and platelet count of 317, sodium 140, potassium 4.7, BUN/creatinine of 18/0.80 and blood glucose of 204, lactic acid of 3.4 So that this is viral screen is negative UA is positive for large amount of blood, nitrates, leukocyte esterase, WBCs and RBCs and many bacteria Chest x-ray is negative for any acute pulmonary process -CT abdomen pelvis shows thickened bladder. Colitis of sigmoid colon with large stool burden. 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 07/31/2024 Patient is resting in bed. Awake alert and oriented. No complaints of chest pain or shortness of breath. Patient is afebrile. No headache or dizziness. No nausea or vomiting. Patient is on IV antibiotics for urinary tract infection. Urine culture showed gram-negative bacilli. ID is on board. Patient is on cefepime IV. Laboratory data showed WBC 10.8 hemoglobin 11.4 and platelets 276 BUN 18 and creatinine 0.66 and blood sugar 148 and albumin 3.4. 08/01/2024 Patient is afebrile. Awake alert and oriented. Currently on room air. No complaints of pain. No nausea or vomiting or diarrhea. Tolerating oral diet. Continued on IV antibiotics in the form of cefepime. Urine culture showed gram- negative bacilli. ID is on board. Objective - Vital Signs Vital signs: Vital Signs Temp 98.5 F 08/01/24 20:00 Pulse 98 08/01/24 20:00 Resp 17 08/01/24 20:00 BP 115/81 08/01/24 20:00 Pulse Ox 96 08/01/24 20:00 FiO2 Intake & Output 08/01/24 08/01/24 08/02/24 06:59 18:59 06:59 Intake Total 20 750 10 Output Total 1000 1550 Balance -980 -800 10 Weight 110 kg Intake: IV 20 30 10 Invasive Line 1 20 10 Invasive Line 2 20 10 Oral 720 Output: Urine 1000 1550 Other: Voiding Method Indwelling Catheter Indwelling Catheter Indwelling Catheter - Exam General appearance: alert, in no apparent distress Head exam: Present: normocephalic Eye exam: Present: PERRL, other (Disconjugate gaze) Neck exam: Present: normal inspection. Absent: tenderness, meningismus Respiratory exam: Present: normal lung sounds bilaterally Cardiovascular Exam: Present: tachycardia GI/Abdominal exam: Present: tenderness (Mild diffuse tenderness) Extremities exam: Present: normal inspection Neurological exam: Present: alert Psychiatric exam: Present: normal affect, normal mood Skin exam: Present: other (Bilateral anterior lower legs with mild erythema consistent with chronic cellulitis. Patient does have large sacral wound that appears mostly chronic however does have some stool in it. Patient also has left gluteal wound at least stage II - Labs CBC & Chem 7: 08/03/24 06:46 08/03/24 06:46 Labs: Abnormal Lab Results - Last 24 Hours (Table) 08/01/24 08/01/24 Range/Units 06:14 06:14 Hgb 11.0 L (12.0-15.0) g/dL Hct 34.9 L (37.2-46.3) % MCH 26.8 L (27.0-32.0) pg MCHC 31.5 L (32.0-37.0) g/dL Lymphocytes # 0.80 L (0.90-5.00) 10*3/uL Potassium 3.3 L (3.5-5.1) mmol/L Carbon Dioxide 31 H (22-30) mmol/L BUN 20 H (7-17) mg/dL Glucose 122 H (74-99) mg/dL Microbiology - Last 24 Hours (Table) 07/30/24 08:41 Blood Culture - Preliminary Blood 07/30/24 08:41 Urine Culture - Final Urine,Voided Escherichia coli ESBL Assessment and Plan Assessment: 1. UTI/sepsis - is positive for WBCs, leukocyte esterase, nitrites and bacteria - Patient has been placed on IV antibiotics in form of cefepime 1 g IV every 8 hours - ID is consulted. Urine culture showed gram-negative bacilli. 2. Lactic acidosis; uric acid level of 3.4 in ER; likely related to UTI and sepsis; patient did receive IV fluid boluses in ED -Lactic acidosis resolved. Ctic acid resolved. 3. Infected sacral decubitus ulcer/cellulitis; patient remains on IV cefepime - Wound care consult in placed - ID on board 4. Hyperlipidemia; Lipitor 10 mg daily 5. Hypothyroidism; levothyroxine 75 mcg daily 6. Chronic pain; patient takes [place], Neurontin and baclofen DVT prophylaxis; SCDs CODE STATUS; full code
--- NOTE | 2024-08-03 14:02 | P.PN ---
Subjective Progress Note Date: 08/02/24 54-year-old female, history of MS, hyperlipidemia, hypothyroidism, GERD/gastritis, present to the emergency department with concerns for fever. Patient states she did not feel well since this morning. Patient has underlying MS. Patient also has history of UTI with sepsis. Patient has known sacral woun d. Patient has been having some abdominal discomfort. Blood work reveals WBC of 12.75, hemoglobin of 12.4 and platelet count of 317, sodium 140, potassium 4.7, BUN/creatinine of 18/0.80 and blood glucose of 204, lactic acid of 3.4 So that this is viral screen is negative UA is positive for large amount of blood, nitrates, leukocyte esterase, WBCs and RBCs and many bacteria Chest x-ray is negative for any acute pulmonary process -CT abdomen pelvis shows thickened bladder. Colitis of sigmoid colon with large stool burden. 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 07/31/2024 Patient is resting in bed. Awake alert and oriented. No complaints of chest pain or shortness of breath. Patient is afebrile. No headache or dizziness. No nausea or vomiting. Patient is on IV antibiotics for urinary tract infection. Urine culture showed gram-negative bacilli. ID is on board. Patient is on cefepime IV. Laboratory data showed WBC 10.8 hemoglobin 11.4 and platelets 276 BUN 18 and creatinine 0.66 and blood sugar 148 and albumin 3.4. 08/01/2024 Patient is afebrile. Awake alert and oriented. Currently on room air. No complaints of pain. No nausea or vomiting or diarrhea. Tolerating oral diet. Continued on IV antibiotics in the form of cefepime. Urine culture showed gram- negative bacilli. ID is on board. 08/02/2024 Patient is resting in the bed. Afebrile. Urine culture showed ESBL E. coli. Antibiotics changed to meropenem as per ID recommendations. Denies any dysuria or hematuria. No chest pain or shortness of breath. Laboratory data reviewed. Objective - Vital Signs Vital signs: Vital Signs Temp 98.2 F 08/02/24 20:00 Pulse 93 08/02/24 20:00 Resp 17 08/02/24 20:00 BP 133/77 08/02/24 20:00 Pulse Ox 98 08/02/24 20:00 FiO2 Intake & Output 08/02/24 08/02/24 08/03/24 06:59 18:59 06:59 Intake Total 20 1440 10 Output Total 1200 1525 600 Balance -1180 -85 -590 Weight 130.5 kg Intake: IV 20 20 10 Invasive Line 2 20 20 10 Oral 1420 Output: Urine 1200 1525 600 Other: Voiding Method Indwelling Catheter Indwelling Catheter Indwelling Catheter - Exam General appearance: alert, in no apparent distress Head exam: Present: normocephalic Eye exam: Present: PERRL, other (Disconjugate gaze) Neck exam: Present: normal inspection. Absent: tenderness, meningismus Respiratory exam: Present: normal lung sounds bilaterally Cardiovascular Exam: Present: tachycardia GI/Abdominal exam: Present: tenderness (Mild diffuse tenderness) Extremities exam: Present: normal inspection Neurological exam: Present: alert Psychiatric exam: Present: normal affect, normal mood Skin exam: Present: other (Bilateral anterior lower legs with mild erythema consistent with chronic cellulitis. Patient does have large sacral wound that appears mostly chronic however does have some stool in it. Patient also has le ft gluteal wound at least stage II - Labs CBC & Chem 7: 08/03/24 06:46 08/03/24 06:46 Labs: Abnormal Lab Results - Last 24 Hours (Table) 08/02/24 08/02/24 Range/Units 06:24 06:24 WBC 3.59 L (4.50-10.00) 10*3/uL RBC 3.87 L (4.10-5.20) 10*6/uL Hgb 10.4 L (12.0-15.0) g/dL Hct 33.4 L (37.2-46.3) % MCH 26.9 L (27.0-32.0) pg MCHC 31.1 L (32.0-37.0) g/dL Lymphocytes # 0.77 L (0.90-5.00) 10*3/uL BUN 23 H (7-17) mg/dL Glucose 124 H (74-99) mg/dL Microbiology - Last 24 Hours (Table) 07/30/24 08:41 Blood Culture - Preliminary Blood Assessment and Plan Assessment: 1. UTI/sepsis with ESBL E. coli - is positive for WBCs, leukocyte esterase, nitrites and bacteria -Antibiotic changed to meropenem IV. - ID is on board. Urine culture is finalized. 2. Lactic acidosis; uric acid level of 3.4 in ER; likely related to UTI and sepsis; patient did receive IV fluid boluses in ED -Lactic acidosis resolved. Lactic acidosis resolved. 3. Infected sacral decubitus ulcer/cellulitis; patient remains on IV cefepime - Wound care has seen the patient and continue with dressing changes as recommended. - ID on board 4. Hyperlipidemia; Lipitor 10 mg daily 5. Hypothyroidism; levothyroxine 75 mcg daily 6. Chronic pain; patient takes [place], Neurontin and baclofen DVT prophylaxis; SCDs CODE STATUS; full code Time with Patient: Greater than 30
--- NOTE | 2024-08-03 14:05 | P.DS ---
Providers Date of admission: 07/30/24 10:05 Expected date of discharge: 08/03/24 Attending physician: Jose Almaguer MD Consults: 07/30/24 10:05 Consult Physician Urgent Consulting Provider: Bobo Rivero Consult Reason/Comments: sepsis Do you want consulting provider notified?: Yes Primary care physician: Brianne Gomez DO Hospital Course: Discharge diagnosis Sepsis secondary to ESBL E. coli urinary tract infection Lactic acidosis resolved Sacral decubitus ulcer stage II continue with wound care Hyperlipidemia Hypothyroidism History of MS Chronic pain GI and DVT prophylaxis Hospital course 54-year-old female, history of MS, hyperlipidemia, hypothyroidism, GERD/gastritis, present to the emergency department with concerns for fever. Patient states she did not feel well since this morning. Patient has underlying MS. Patient also has history of UTI with sepsis. Patient has known sacral wound. Patient has been having some abdominal discomfort. Blood work reveals WBC of 12.75, hemoglobin of 12.4 and platelet count of 317, sodium 140, potassium 4.7, BUN/creatinine of 18/0.80 and blood glucose of 204, lactic acid of 3.4 So that this is viral screen is negative UA is positive for large amount of blood, nitrates, leukocyte esterase, WBCs and RBCs and many bacteria Chest x-ray is negative for any acute pulmonary process -CT abdomen pelvis shows thickened bladder. Colitis of sigmoid colon with large stool burden. 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 07/31/2024 Patient is resting in bed. Awake alert and oriented. No complaints of chest pain or shortness of breath. Patient is afebrile. No headache or dizziness. No nausea or vomiting. Patient is on IV antibiotics for urinary tract infection. Urine culture showed gram-negative bacilli. ID is on board. Patient is on cefepime IV. Laboratory data showed WBC 10.8 hemoglobin 11.4 and platelets 276 BUN 18 and creatinine 0.66 and blood sugar 148 and albumin 3.4. 08/01/2024 Patient is afebrile. Awake alert and oriented. Currently on room air. No complaints of pain. No nausea or vomiting or diarrhea. Tolerating oral diet. Continued on IV antibiotics in the form of cefepime. Urine culture showed gram- negative bacilli. ID is on board. 08/02/2024 Patient is resting in the bed. Afebrile. Urine culture showed ESBL E. coli. Antibiotics changed to meropenem as per ID recommendations. Denies any dysuria or hematuria. No chest pain or shortness of breath. Laboratory data reviewed. 08/03/2024 Patient is resting in the bed. Awake alert and oriented. No complaints of chest pain or shortness of breath. No fever no chills. Continued on IV antibiotics. Changed to cefepime and ID recommends to continue IV antibiotics at discharge. Otherwise patient is hemodynamically stable and is being discharged today. Mentation is at baseline. Sickle examination General appearance: alert, in no apparent distress Head exam: Present: normocephalic Eye exam: Present: PERRL, other (Disconjugate gaze) Neck exam: Present: normal inspection. Absent: tenderness, meningismus Respiratory exam: Present: normal lung sounds bilaterally Cardiovascular Exam: Present: tachycardia GI/Abdominal exam: Present: tenderness (Mild diffuse tenderness) Extremities exam: Present: normal inspection Neurological exam: Present: alert awake and oriented x 2-3. Psychiatric exam: Present: normal affect, normal mood Skin exam: Present: other (Bilateral anterior lower legs with mild erythema consistent with chronic cellulitis. Patient does have large sacral wound that appears mostly chronic however does have some stool in it. Patient also has left gluteal wound at least stage II Vital Signs - 24 hr 08/02/24 08/02/24 08/02/24 16:00 19:38 20:00 Temperature 98.2 F 98.2 F Pulse Rate [ 90 91 93 Pulse Oximetery ] Respiratory 18 18 17 Rate Blood Pressure 120/61 133/77 [Left Arm] O2 Sat by Pulse 96 98 Oximetry 08/02/24 08/03/24 08/03/24 23:25 02:00 04:00 Temperature 98.1 F Pulse Rate [ 91 91 96 Pulse Oximetery ] Respiratory 16 18 16 Rate Blood Pressure 120/82 127/69 [Left Arm] O2 Sat by Pulse 97 98 Oximetry 08/03/24 08:00 Temperature 98.7 F Pulse Rate [ 82 Pulse Oximetery ] Respiratory 18 Rate Blood Pressure 142/84 [Left Arm] O2 Sat by Pulse 96 Oximetry Total time taken greater than 35 minutes including 18 minutes for counseling and coordination of care. Patient Condition at Discharge: Serious Plan - Discharge Summary Discharge Rx Participant: No New Discharge Prescriptions: New Ertapenem [INVanz] 1 gm IVPB Q24H #10 each Continue Potassium Chloride ER [K-Dur 20] 20 meq PO BID Aspirin 81 mg PO HS Sennosides [Senna] 8.6 mg PO BID Levothyroxine Sodium [Synthroid] 75 mcg PO DAILY@0500 Atorvastatin [Lipitor] 10 mg PO HS Ascorbic Acid [Vitamin C] 500 mg PO HS Naloxone HCl 0.4 mg IM DIRECTED PRN PRN Reason: suspected opiod overdose Folic Acid 0.4 mg PO BID Multivit-Min/FA/Lycopen/Lutein [Centrum Silver Tablet] 1 tab PO HS Icy Hot External Patch 5% 1 patch TOPICAL DAILY Gabapentin [Neurontin] 300 mg PO TID@0700,1300,1900 Diroximel Fumarate [Vumerity] 462 mg PO Q12HR@0700,1900 Esomeprazole Magnesium [NexIUM] 20 mg PO DAILY Amino Acids/Protein Hydrolys [Pro-Stat Awc Liquid] 30 ml PO DAILY HYDROcodone/APAP 7.5-325MG [[place] 7.5-325] 1 tab PO QID@,,, #12 tab Acetaminophen Tab [Tylenol] 500 mg PO TID PRN PRN Reason: Pain Furosemide [Lasix] 40 mg PO DAILY Naloxone HCl [Narcan] 4 mg NASAL DIRECTED PRN PRN Reason: suspected opiod overdose Discontinued Baclofen 10 mg PO TID@0700,1300,1900 Nitrofurantoin Macrocrystal [Macrodantin] 50 mg PO Q2D@0700 Discharge Medication List Potassium Chloride ER [K-Dur 20] 20 meq PO BID 01/12/19 [History] Aspirin 81 mg PO HS 09/15/19 [History] Sennosides [Senna] 8.6 mg PO BID 01/31/20 [History] Atorvastatin [Lipitor] 10 mg PO HS 09/22/21 [History] Diroximel Fumarate [Vumerity] 462 mg PO Q12HR@0700,1900 09/22/21 [History] Levothyroxine Sodium [Synthroid] 75 mcg PO DAILY@0500 09/22/21 [History] Ascorbic Acid [Vitamin C] 500 mg PO HS 05/14/22 [History] Folic Acid 0.4 mg PO BID 06/19/23 [History] Naloxone HCl 0.4 mg IM DIRECTED PRN 06/19/23 [History] Esomeprazole Magnesium [NexIUM] 20 mg PO DAILY 09/24/23 [History] Multivit-Min/FA/Lycopen/Lutein [Centrum Silver Tablet] 1 tab PO HS 02/20/24 [History] Amino Acids/Protein Hydrolys [Pro-Stat Awc Liquid] 30 ml PO DAILY 03/22/24 [History] Icy Hot External Patch 5% 1 patch TOPICAL DAILY 03/22/24 [History] HYDROcodone/APAP 7.5-325MG [[place] 7.5-325] 1 tab PO QID@07,13,19,23 #12 tab 03/24/24 [Rx] Acetaminophen Tab [Tylenol] 500 mg PO TID PRN 07/30/24 [History] Furosemide [Lasix] 40 mg PO DAILY 07/30/24 [History] Gabapentin [Neurontin] 300 mg PO TID@0700,1300,1900 07/30/24 [History] Naloxone HCl [Narcan] 4 mg NASAL DIRECTED PRN 07/30/24 [History] Ertapenem [INVanz] 1 gm IVPB Q24H #10 each 08/03/24 [Rx] Follow up Appointment(s)/Referral(s): Brianne Gomez DO [Primary Care Provider] - 1-2 days Discharge Disposition: TRANSFER TO SNF/ECF
--- NOTE | 2024-08-03 16:13 | P.PN ---
Subjective Progress Note Date: 08/02/24 Principal diagnosis: Reason for follow-up is pyelonephritis Patient is a 54-year-old female with a past medical history significant for MS hyperlipidemia bedbound state chronic indwelling Chaves catheter for retention and history of multiple pressure ulcer patient has been to hospital concerning for fever and has been diagnosed with pyelonephritis prompting this consultation. On today's evaluation that is 08/02/2024, Patient is afebrile patient is currently on room air and denies having any shortness of breath, the patient denies any chest pain or cough, the patient denies any nausea vomiting did not have any abdominal pain and no diarrhea Patient went for his 3.59 creatinine 0.69 blood culture has been negative Objective - Vital Signs Vital signs: Vital Signs Temp 98.1 F 08/02/24 07:45 Pulse 91 08/02/24 08:00 Resp 18 08/02/24 08:00 BP 128/82 08/02/24 07:45 Pulse Ox 100 08/02/24 07:45 FiO2 Intake & Output 08/01/24 08/02/24 08/02/24 18:59 06:59 18:59 Intake Total 750 20 550 Output Total 1550 1200 1525 Balance -800 1180 -975 Weight 130.5 kg Intake: IV 30 20 10 Invasive Line 1 10 Invasive Line 2 20 20 10 Oral 720 540 Output: Urine 1550 1200 1525 Other: Voiding Method Indwelling Catheter Indwelling Catheter Indwelling Catheter - Exam GENERAL DESCRIPTION: Middle-age female lying in bed in no distress RESPIRATORY SYSTEM: Unlabored breathing , decreased breath sounds at bases HEART: S1 S2 regular rate and rhythm , ABDOMEN: Soft , no tenderness EXTREMITIES: Swelling to the leg no significant redness - Labs CBC & Chem 7: 08/03/24 06:46 08/03/24 06:46 Labs: Abnormal Lab Results - Last 24 Hours (Table) 08/02/24 08/02/24 Range/Units 06:24 06:24 WBC 3.59 L (4.50-10.00) 10*3/uL RBC 3.87 L (4.10-5.20) 10*6/uL Hgb 10.4 L (12.0-15.0) g/dL Hct 33.4 L (37.2-46.3) % MCH 26.9 L (27.0-32.0) pg MCHC 31.1 L (32.0-37.0) g/dL Lymphocytes # 0.77 L (0.90-5.00) 10*3/uL BUN 23 H (7-17) mg/dL Glucose 124 H (74-99) mg/dL Microbiology - Last 24 Hours (Table) 07/30/24 08:41 Blood Culture - Preliminary Blood 07/30/24 08:41 Urine Culture - Final Urine,Voided Escherichia coli ESBL Assessment and Plan (1) Catheter-associated urinary tract infection Current Visit: No Status: Acute Code(s): T83.511A - I/I REACT D/T INDWELLING URETHRAL CATHETER, INIT; N39.0 - URINARY TRACT INFECTION, SITE NOT SPECIFIED SNOMED Code(s): 835735203 (2) Sepsis Current Visit: No Status: Acute Code(s): A41.9 - SEPSIS, UNSPECIFIED ORGANISM SNOMED Code(s): 53010448 Plan: 1patient presented to hospital with sepsis in this patient who did have fever tachycardia elevated white count elevated lactic acid meeting criteria for SIRS/sepsis source likely catheter versus UTI likely from enteric gram-negative pathogen with a history of ESBL pathogen. 2-urine culture with ESBL E. coli blood culture negative 3patient did have improvement in fever pattern and white count has normalized, blood culture negative 4-patient to continue the meropenem, will order midline for outpatient IV antibiotics Dictation was produced using [employer] dictation software. please excuse any grammatical, word or spelling errors. Time with Patient: Less than 30
--- NOTE | 2024-08-03 16:14 | P.PN ---
Subjective Progress Note Date: 08/03/24 Principal diagnosis: Reason for follow-up is pyelonephritis Patient is a 54-year-old female with a past medical history significant for MS hyperlipidemia bedbound state chronic indwelling Chaves catheter for retention and history of multiple pressure ulcer patient has been to hospital concerning for fever and has been diagnosed with pyelonephritis prompting this consultation. On today's evaluation that is 08/03/2024, patient has been afebrile, patient is breathing comfortably and is currently on room air, patient denies having any chest pain and cough, patient denies nausea vomiting or diarrhea and no abdominal pain, patient feeling better wants to go back to the alf. Patient did have a white count of 3.5. Objective - Vital Signs Vital signs: Vital Signs Temp 98.7 F 08/03/24 08:00 Pulse 82 08/03/24 08:00 Resp 18 08/03/24 08:00 BP 142/84 08/03/24 08:00 Pulse Ox 96 08/03/24 08:00 FiO2 Intake & Output 08/02/24 08/03/24 08/03/24 18:59 06:59 18:59 Intake Total 1440 20 984 Output Total 1525 1800 1999 Balance -85 -1780 -1016 Weight 126 kg Intake: IV 20 20 Invasive Line 2 20 20 Oral 1420 984 Output: Urine 1525 1800 1999 Other: Voiding Method Indwelling Catheter Indwelling Catheter - Exam GENERAL DESCRIPTION: Middle-age female lying in bed in no distress RESPIRATORY SYSTEM: Unlabored breathing , decreased breath sounds at bases HEART: S1 S2 regular rate and rhythm , ABDOMEN: Soft , no tenderness EXTREMITIES: Swelling to the leg no significant redness - Labs CBC & Chem 7: 08/03/24 06:46 08/03/24 06:46 Labs: Abnormal Lab Results - Last 24 Hours (Table) 08/03/24 08/03/24 Range/Units 06:46 06:46 WBC 3.54 L (4.50-10.00) 10*3/uL RBC 4.05 L (4.10-5.20) 10*6/uL Hgb 10.7 L (12.0-15.0) g/dL Hct 34.6 L (37.2-46.3) % MCH 26.4 L (27.0-32.0) pg MCHC 30.9 L (32.0-37.0) g/dL Immature Gran # 0.05 H (0.00-0.04) 10*3/uL Lymphocytes # 0.72 L (0.90-5.00) 10*3/uL BUN 26 H (7-17) mg/dL Glucose 125 H (74-99) mg/dL Microbiology - Last 24 Hours (Table) 07/30/24 08:41 Blood Culture - Preliminary Blood Assessment and Plan (1) Catheter-associated urinary tract infection Current Visit: No Status: Acute Code(s): T83.511A - I/I REACT D/T INDWELLING URETHRAL CATHETER, INIT; N39.0 - URINARY TRACT INFECTION, SITE NOT SPECIFIED SNOMED Code(s): 270785426 (2) Sepsis Current Visit: No Status: Acute Code(s): A41.9 - SEPSIS, UNSPECIFIED ORGANISM SNOMED Code(s): 26857017 Plan: 1patient presented to hospital with sepsis in this patient who did have fever tachycardia elevated white count elevated lactic acid meeting criteria for SIRS/sepsis source likely catheter versus UTI likely from enteric gram-negative pathogen with a history of ESBL pathogen. 2-urine culture with ESBL E. coli blood culture negative 3patient did have improvement in fever pattern and white count has normalized, blood culture negative 4-patient did have midline placement will switch meropenem to Invanz 1 g daily plan is for a 10-day course on discharge Dictation was produced using [employer] dictation software. please excuse any grammatical, word or spelling errors. Time with Patient: Less than 30
[2024-08-03] MEDS: ERTAPENEM 1 GM in SODIUM CHLORIDE 0.9% 50 ML IVPB SCH (17:41)
[2024-08-03 20:19] VITALS: BP 113/79; PULSE 104
--- NOTE | 2024-08-07 09:16 | CDI ---
Documentation Clarification Form Date: 08/07/2024 08:49:54 AM From: Radha Harris Admit Date: 07/30/2024 10:05:00 AM Patient Name: Rachel Rincon Visit Number: [id number] Discharge Date: 08/03/2024 07:22:00 PM ATTENTION: The Clinical Documentation Specialists (CDI) and [facility] Coding Staff appreciate your assistance in clarifying documentation. Please respond to the clarification below the line at the bottom and electronically sign. The CDI & [facility] Coding staff will review the response and follow-up if needed. Please note: Queries are made part of the Legal Health Record. If you have any questions, please contact the author of this message via ITS. Doctor/Provider: Jose Almaguer Conflicting documentation has been found in the medical record. As attending physician, please provide clarification. Per H and P "Patient also has left gluteal wound at least stage III. Per PN notes 07/31, 08/01, 08/02, DCS "Patient aslo has left gluteal wound at least stage II. History/Risk Factors: Sacral decubitus II wounds on bilateral gluteal folds, neurogenic bladder, cellulitis back, MS Wheelchair and bedbound Clinical Indicators: Per wound care notes " Stage IV Coccyx ulcer" Treatment: Consult for ulcers. Honey gel and ordered foam. Air filled cushions while sitting. Please clarify which diagnosis is most appropriate: [ ] Left gluteal wound Stage III [ ] Left gluteal wound Stage II [ ### ] Stage IV Coccyx ulcer [ ] Other (please specify) [ ] Unable to determine MTDD
== END 2024-08-03 19:22 | DRG 466 ==
LOC: EC 08:19 → 3SCARD 10:05
PROVIDERS: ADMIT Internal Medicine; ATTEND Internal Medicine
PROC: 05HB33Z Insertion of Infusion Device into Right Basilic Vein, Percutaneous Approach (ICD-10-PCS; principal; 2024-08-03 10:20)
DX: T83.518A Infection and inflammatory reaction due to other urinary catheter, initial encounter (principal); Y84.6 Urinary catheterization as the cause of abnormal reaction of the patient, or of later complication, without mention of misadventure at the time of the procedure; Z16.12 Extended spectrum beta lactamase (ESBL) resistance; L89.322 Pressure ulcer of left buttock, stage 2; N12 Tubulo-interstitial nephritis, not specified as acute or chronic; N31.9 Neuromuscular dysfunction of bladder, unspecified; A41.51 Sepsis due to Escherichia coli [E. coli]; L89.154 Pressure ulcer of sacral region, stage 4; E03.9 Hypothyroidism, unspecified; E78.5 Hyperlipidemia, unspecified; I82.221 Chronic embolism and thrombosis of inferior vena cava; E87.20 Acidosis, unspecified; G35 Multiple sclerosis; G89.29 Other chronic pain; R33.9 Retention of urine, unspecified; K21.9 Gastro-esophageal reflux disease without esophagitis; K62.89 Other specified diseases of anus and rectum; L03.312 Cellulitis of back [any part except buttock and flank]; L89.152 Pressure ulcer of sacral region, stage 2; K52.9 Noninfective gastroenteritis and colitis, unspecified; L89.319 Pressure ulcer of right buttock, unspecified stage; L89.323 Pressure ulcer of left buttock, stage 3; Z79.82 Long term (current) use of aspirin; Z11.52 Encounter for screening for COVID-19; Z79.890 Hormone replacement therapy; Z79.899 Other long term (current) drug therapy; Z87.440 Personal history of urinary (tract) infections; Z99.3 Dependence on wheelchair; Z74.01 Bed confinement status; Z87.01 Personal history of pneumonia (recurrent); Z16.24 Resistance to multiple antibiotics
CPT/HCPCS: 36410; 36415; 51702; 71045; 74177; 76937; 80048; 80053; 81001; 83605; 85025; 85610; 85730; 87040; 87077; 87086; 87186; 87636; 93005; 96361; 96365; 96368; 99285